=== PATIENT | female | born 1960 | race Caucasian/White ===

== ENCOUNTER 2023-05-03 07:58 | Inpatient (IN) | payer OTHER, SELFPAY ==
[2023-05-03] VITALS (88 sets, daily range): BP systolic 112–174; BP diastolic 74–103; PULSE 82–167; RESP 11–42; TEMP 36.5–37.1; O2SAT 82–99; BMI 49.9; BMI 63.1
--- NOTE | 2023-05-03 08:17 | XR_ITS ---
The [address] [address] Patient Name: FERN CARDOSO MRN: [id number] date: 1960 Sex: F Assigned Patient Location: ER Current Patient Location: ED.MAIN Accession/Order Number: [id number] Exam Date: 05/03/2023 08:38 Report Date: 05/03/2023 08:49 At the request of: CARRIE CORDON Procedure: XR chest 1V EXAM: XR chest 1V HISTORY: shortness of breath COMPARISON: Chest study dated 06/26/2015 TECHNIQUE: AP view of the chest was obtained with portable technique at 0834 hours. FINDINGS: Heart is mildly enlarged. Mild to moderately prominent interstitial and airspace density throughout on the right and at the left mid and lower lung field levels compatible with edema related to congestive changes and/or infiltrate. No obvious pneumothorax. Slight convexity of the dorsal spine to the left with mild degenerative changes present. XR/XR chest 1V IMPRESSION: Mild cardiomegaly. Congestive and/or infiltrative changes as noted. Electronically authenticated by: SARABJIT ROSENBAUM Date: 05/03/2023 08:49
--- NOTE | 2023-05-03 08:17 | ECG_ITS ---
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
--- NOTE | 2023-05-03 08:34 | ED.SOB1 ---
HPI - SOB/Dyspnea General Chief Complaint: Shortness of Breath/Dyspnea Stated Complaint: SOB Time Seen by Provider: 05/03/23 08:06 Source: patient Mode of arrival: walk-in Limitations: no limitations History of Present Illness HPI Narrative: Patient has been experiencing shortness of breath since testing positive for Covid back around [facility]. She said that she had a cough throughout March, which has lessened in the last week. No fever or chills. No chest pain, no pain behind either knee/calf, no dizziness or syncope. PMHx includes enlarged lower part of my heart for which she was prescribed Metoprolol by a research geneticist in [place] who isn't there anymore. PCP is Dr Tierney. Related Data Home Medications Medication Instructions Recorded Confirmed amitriptyline 25 mg tablet 25 mg PO BEDTIME 05/03/23 05/03/23 diclofenac sodium 75 mg 75 mg PO Q12H 05/03/23 05/03/23 tablet,delayed release metformin 500 mg tablet,extended 500 mg PO Q24H 05/03/23 05/03/23 release 24 hr metoprolol succinate 50 mg 50 mg PO Q24H 05/03/23 05/03/23 tablet,extended release 24 hr Allergies Allergy/AdvReac Type Severity Reaction Status Date / Time Penicillins AdvReac Intermediate Verified 05/03/23 08:03 [facility] Social History Smoking status: Never smoker Exam Narrative Exam Narrative: Nurses notes and vital signs reviewed and patient is not hypoxic. afebrile General: Well-appearing and in no apparent distress. Skin: Warm, dry, no pallor noted. No rash. Head: Normocephalic, atraumatic. Neck: Supple, non-tender. Eye: Pupils are equal, round and EOMI. No scleral icterus. Cardiovascular: Irregular tachycardia. Respiratory: No accessory muscle use or respiratory distress. Lungs are clear to auscultation, no wheezing, rales or rhonchi Musculoskeletal: normal ROM, no calf or popliteal tenderness, no lower extremity edema/swelling GI: Abdomen is soft, non-distended. Normal bowel sounds. Morbid obesity - unable to appreciate masses. No tenderness to palpation. No rebound, guarding, or rigidity noted. Neurological: A&O x4. No cranial nerve dysfunction observed. No truncal ataxia. Moves all extremities. Sensation intact. Psychiatric: Cooperative and interactive. Normal mood and affect. Constitutional Vital Signs, click to edit/add: Last Vital Signs Temp 97.7 F 05/03/23 08:05 Pulse 89 05/03/23 10:13 Resp 21 05/03/23 10:13 BP 146/77 H 05/03/23 10:13 Pulse Ox 97 05/03/23 10:13 O2 Del Method Nasal Cannula 05/03/23 08:06 O2 Flow Rate 4 05/03/23 08:06 Course Vital Signs Vital signs: Vital Signs Temperature 97.7 F 05/03/23 08:05 Pulse Rate 98 H 05/03/23 08:05 Respiratory Rate 30 H 05/03/23 08:05 Blood Pressure 156/96 H 05/03/23 08:05 Pulse Oximetry 82 L 05/03/23 08:05 Oxygen Delivery Method Room Air 05/03/23 08:05 Temperature 97.7 F 05/03/23 08:05 Pulse Rate 89 05/03/23 10:13 Respiratory Rate 21 05/03/23 10:13 Blood Pressure 146/77 H 05/03/23 10:13 Pulse Oximetry 97 05/03/23 10:13 Oxygen Delivery Method Nasal Cannula 05/03/23 08:06 Oxygen Delivery Flow Rate 4 05/03/23 08:06 MDM - SOB/Dyspnea MDM Narrative Medical decision making narrative: Patient was placed on cardiac exercise specialist and EKG obtained. Blood drawn and sent for evaluation. She has rapid atrial fibrillation. She received IV Cardizem bolus. Portable CXR obtained. HR slowed after cardizem given - repeat ekg obtained and is interpreted below. CXR with findings consistent with pulmonary edema vs infiltrate CBC notable for normal WBC and decreased platelets at 121k. BMP unremarkable. Troponin and BNP normal. Swabs for Covid and Influenza were negative. Uncertain how long she was in atrial fibrillation- patient given SQ Lovenox at 1mg/kg. DDimer elevated - patient sent for CT angio chest, which was negative for PE. Results, diagnosis and disposition discussed with the patient. She is agreeable to being admitted for new onset atrial fibrillation. Call placed to Dr Jackson - carbon furnace operator helper admitting physician - to discuss. Dr Jackson agreed to admit the patient to SDU, inpatient. Lab Data Attestation: I reviewed the patient's lab results. Labs: Lab Results 05/03/23 05/03/23 Range/Units 08:33 08:49 WBC 5.1 (4.0-11.0) 10^3/uL RBC 4.02 L (4.20-5.40) 10^6/uL Hgb 11.5 L (12.0-16.0) g/dL Hct 37.1 (36.0-48.0) % MCV 92.3 (81.0-99.0) fL MCH 28.6 (26.7-34.0) pg MCHC 31.0 (29.9-35.2) g/dL RDW 15.9 H (11.0-15.0) % Plt Count 121 L (150-450) 10^3/uL MPV 11.9 (9.5-13.5) fL Neut % (Auto) 63.0 (43.0-75.0) % Lymph % (Auto) 24.5 (20.5-60.0) % [place] % (Auto) 7.9 (1.7-12.0) % Eos % (Auto) 3.2 (0.9-7.0) % Baso % (Auto) 1.2 (0.2-2.0) % Neut # (Auto) 3.2 (1.4-6.5) 10^3/uL Lymph # (Auto) 1.2 (1.2-3.8) 10^3/uL [place] # (Auto) 0.4 (0.3-0.8) 10^3/uL Eos # (Auto) 0.2 (0.0-0.7) 10^3/uL Baso # (Auto) 0.1 (0.0-0.1) 10^3/uL Abs Immat Gran (auto) 0.01 (0.00-0.03) 10^3/uL Imm/Tot Granulo (auto) 0.2 (0.0-0.5) % PT 12.9 H (9.0-11.6) sec INR 1.23 APTT 22.8 (22.3-36.2) sec D-Dimer 7.17 H* (<=0.59) mg/L FEU Sodium 142 (136-145) mmol/L Potassium 3.5 (3.5-5.1) mmol/L Chloride 105 (98-107) mmol/L Carbon Dioxide 32.1 H (21.0-32.0) mmol/L Anion Gap 8.4 BUN 18.0 (7.0-18.0) mg/dL Creatinine 0.87 (0.55-1.02) mg/dL Est GFR ( Amer) >60 (>=60) Est GFR (Non-Af Amer) >60 (>=60) BUN/Creatinine Ratio 20.7 Glucose 133 H (74-106) mg/dL Calcium 8.8 (8.5-10.1) mg/dL Troponin I High Sens 35.3 (4.0-51.3) pg/mL NT-Pro-B Natriuret Pep 659.0 (<=900.0) pg/mL Influenza Type A Ag Negative Influenza Type B Ag Negative SARS-CoV-2 Ag (CV2AG) Negative (NEGATIVE) Imaging Data Chest x-ray: Attestation: I have reviewed the pertinent imaging results. My impression: throughout right and left mid and left lower lungs = mild to moderate prominent interstitial and airspace density Radiologist's impression: ITS Impressions Chest X-Ray 05/03/23 08:17 IMPRESSION: Mild cardiomegaly. Congestive and/or infiltrative changes as noted. Electronically authenticated by: SARABJIT ROSENBAUM Date: 05/03/2023 08:49 Chest CTA 05/03/23 09:42 IMPRESSION: 1. No pulmonary embolus identified. 2. Mild pulmonary alveolar and interstitial edema with small bilateral pleural effusions. 3. Cardiomegaly. 4. Borderline enlarged left axillary lymph node, which is nonspecific and possibly reactive. 5. Limited visualization of the liver suggests possible cirrhosis with recanalization of the umbilical vein. Electronically authenticated by: PALMER GALDAMEZ Date: 05/03/2023 10:02 ECG Data Attestation: I personally reviewed and interpreted this ECG as follows: Interpretation: #1 EKG interpretation: Emergency Department physician interpretation. Rapid atrial fibrillation 144bpm. LBBB, left axis. #2 EKG interpretation: Emergency Department physician interpretation. Rate controlled atrial fibrillation at 84bpm. Left axis. LBBB. Discharge Plan Discharge Chief Complaint: Shortness of Breath/Dyspnea Clinical Impression: Atrial fibrillation, new onset, Atrial fibrillation with rapid ventricular response Patient Disposition: Admitted As Inpatient Time of Disposition Decision: 09:14 Additional Instructions: inpatient admit, SDU, Dr Jackson
[2023-05-03] MEDS: DILTIAZEM HCL 25 MG/5 ML VIAL 20 MG IV (08:35)
[2023-05-03 08:41] LABS: Basophils Absolute Auto 0.1 10^3/uL (0.0-0.1); Basophils Percent Auto 1.2 % (0.2-2.0); Eosinophils Absolute Auto 0.2 10^3/uL (0.0-0.7); Eosinophils Percent Auto 3.2 % (0.9-7.0); Hematocrit 37.1 % (36.0-48.0); Hemoglobin 11.5 g/dL (12.0-16.0); Immature Granulocytes Abs Auto 0.01 10^3/uL (0.00-0.03); Immature Granulocytes Pct Auto 0.2 % (0.0-0.5); Lymphocytes Absolute Auto 1.2 10^3/uL (1.2-3.8); Lymphocytes Percent Auto 24.5 % (20.5-60.0); Mean Corpuscular Hemoglobin 28.6 pg (26.7-34.0); Mean Corpuscular Volume 92.3 fL (81.0-99.0); Mean Platelet Volume 11.9 fL (9.5-13.5); Monocytes Absolute Auto 0.4 10^3/uL (0.3-0.8); Monocytes Percent Auto 7.9 % (1.7-12.0); Neutrophils Absolute Auto 3.2 10^3/uL (1.4-6.5); Platelet Count 121 10^3/uL (150-450); Red Blood Count 4.02 10^6/uL (4.20-5.40); Red Cell Distribution Width 15.9 % (11.0-15.0); White Blood Count 5.1 10^3/uL (4.0-11.0)
--- NOTE | 2023-05-03 08:58 | ECG_ITS ---
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
--- NOTE | 2023-05-03 09:01 | PC.NURSE ---
Patient came in with SOB that started last night and was worse with exertion. Audible wheezing noted when walked in. Pulse ox 82% ORA and was place on 2 lpm with improvement to 96%. Monitor applied showing a-fib with RVR with no HX. Patient was moved to room six. IV was started with ultrasound guidance and Cardizem was administered per Dr order. Repeat EKG was done with improvement in HR but patient is still in a-fib. Patient is feeling much better with no SOB at this time.
[2023-05-03 09:03] LABS: INR 1.23; Partial Thromboplastin Time 22.8 sec (22.3-36.2); Prothrombin Time 12.9 sec (9.0-11.6)
[2023-05-03 09:04] LABS: Anion Gap 8.4; BUN Creatinine Ratio 20.7; Calcium 8.8 mg/dL (8.5-10.1); Carbon Dioxide 32.1 mmol/L (21.0-32.0); Chloride 105 mmol/L (98-107); Estimated GFR (African America >60 (>=60); Estimated GFR (Non-African Ame >60 (>=60); Glucose 133 mg/dL (74-106); Potassium 3.5 mmol/L (3.5-5.1); Sodium 142 mmol/L (136-145); Troponin I High Sensitivity 35.3 pg/mL (4.0-51.3)
[2023-05-03 09:07] LABS: D Dimer 7.17 mg/L FEU (<=0.59)
[2023-05-03] MEDS: ENOXAPARIN SODIUM 100 MG/ML SYRINGE SUBQ (09:12)
[2023-05-03] MEDS: ENOXAPARIN SODIUM 40 MG/0.4 ML SYRINGE SUBQ (09:12)
[2023-05-03 09:32] LABS: Influenza Virus A Antigen Negative; Influenza Virus B Antigen Negative; Internal Control Within Normal Limits; SARS-CoV-2 Ag NEGATIVE (NEGATIVE)
--- NOTE | 2023-05-03 09:42 | CT_ITS ---
The [address] [address] Patient Name: FERN CARDOSO MRN: [id number] date: 1960 Sex: F Assigned Patient Location: ER Current Patient Location: ER Accession/Order Number: [id number] Exam Date: 05/03/2023 09:28 Report Date: 05/03/2023 10:02 At the request of: CARRIE CORDON Procedure: CT angio chest EXAM: CT angio chest HISTORY: elevated ddimer, shortness of breath COMPARISON: None. TECHNIQUE: Axial CT images were obtained of the chest with intravenous contrast in the pulmonary arterial phase. Multiplanar, MIP and 3-D reconstructions were performed. CHEST FINDINGS: Lungs/Pleura: Mild perihilar pulmonary opacities are present. There is also mild intralobular septal thickening in the lung bases and apices. There are small bilateral pleural effusions. Pulmonary Arteries: No evidence of pulmonary embolus. Cardiovascular: The heart is enlarged. No significant coronary artery calcifications are identified. The aorta is unremarkable. Pericardium: No effusion. Mediastinum: Unremarkable. Lymph Nodes: Left axillary lymph nodes are borderline enlarged measuring up to 1.1 cm in short axis. Bones: No acute osseous abnormality. There are moderate multilevel degenerative changes present in the thoracic spine with flowing anterior enthesophytes present. Soft tissues: Unremarkable. Upper Abdomen: The hepatic contour appears nodular with recanalization of the umbilical vein noted. CT/CT angio chest IMPRESSION: 1. No pulmonary embolus identified. 2. Mild pulmonary alveolar and interstitial edema with small bilateral pleural effusions. 3. Cardiomegaly. 4. Borderline enlarged left axillary lymph node, which is nonspecific and possibly reactive. 5. Limited visualization of the liver suggests possible cirrhosis with recanalization of the umbilical vein. Electronically authenticated by: PALMER GALDAMEZ Date: 05/03/2023 10:02
--- NOTE | 2023-05-03 10:57 | CA_ITS ---
Patient Name: FERN CARDOSO MR#: [id number] : 1960 Exam Date: 05/03/2023 Ordering Doctor: SHAIKH Shira DOMINGUEZ . ECHOCARDIOGRAM REPORT PROCEDURE: CA ECHO LIMITED INDICATIONS: Atrial fibrillation COMPARISON: None. DESCRIPTION: Limited ECHOCARDIOGRAM Real-time transthoracic echocardiography with 2D and M-mode performed. QUALITY: Technical quality was good. 65 , 300#, BSA 2.35 m2 Limited echocardiogram per physician order. LEFT VENTRICLE: Normal chamber size. Moderate concentric left ventricular hypertrophy. Systolic function is difficult to assess due to rhythm but appears to be mildly to moderately reduced. LV EF: Visual estimation of left ventricular ejection fraction is 40%. DIASTOLIC: ATRIAL SEPTUM: LEFT ATRIUM: Severely dilated. RIGHT ATRIUM: RIGHT VENTRICLE: Normal chamber size. Preserved systolic function. TRICUSPID VALVE: Normal mobility and thickness. MITRAL VALVE: Normal mobility and thickness. Mild mitral annular calcification. AORTIC VALVE: Not well visualized. AORTIC ROOT: PULMONIC VALVE: Not well visualized. PERICARDIUM: No evidence of pericardial effusion. IVC: Not well visualized. PLEURA: CONCLUSION: 1. Moderate concentric left ventricular hypertrophy. 2. Left ventricular systolic function is difficult to assess due to rhythm but appears to be mildly to moderately reduced. LVEF is estimated at 40%. 3. Severe left atrial dilatation. 4. Normal right ventricular size with preserved systolic function. 5. Limited study performed with no Doppler interrogation as requested. Adult Echocardiography Procedure Report Left Ventricle LVEDD (3.7 - 5.6 cm): 4.79 cm LVESD (2.2 - 4.0 cm): 3.75 cm LVIVS thickness (0.6 - 1.2 cm): 1.57 cm LVPW thickness (0.5 - 1.0 cm): 1.19 cm Left Atrium Left Atrium Systolic Dimension: 4.59 cm Mitral Valve Right Ventricle Aorta Aortic Valve Tricuspid Valve Pulmonic Valve Right Atrium Dictated by: Alonzo Babin M.D. on 05/04/2023 at 17:37 Approved by: Alonzo Babin M.D. on 05/04/2023 at 17:41
[2023-05-03 11:24] LABS: Thyroid Stimulating Hormone 4.876 uIU/mL (0.358-3.740)
[2023-05-03] MEDS: METOPROLOL SUCCINATE 50 MG TAB.ER.24H PO ×2 (11:33→21:40)
[2023-05-03] MEDS: POTASSIUM CHLORIDE 10 MEQ ER TABLET 40 MEQ PO (11:33)
[2023-05-03] MEDS: FUROSEMIDE 40 MG/4 ML VIAL IVP ×2 (12:08→21:42)
[2023-05-03] MEDS: DILTIAZEM HCL 25 MG/5 ML VIAL 10 MG IV (12:53)
[2023-05-03 13:04] LABS: Glucometer 100 mg/dL (74-106)
[2023-05-03] MEDS: MAGNESIUM SULFATE IN WATER 4 GM/100 ML PIGGYBACK IV (14:20)
--- NOTE | 2023-05-03 14:25 | P.HP_ITS ---
<Statement entered by Shaikh Manuel MD - 05/03/23 19:28> This documentation has been reviewed and approved. See and examined. Patient presents with cough, SOB ongoing since March found to have New Onset Afib, and acute resp failure with hypoxia Exam: Morbidly obese, laying in bed, appears SOB Irregular HR, rate fluctuating from 90-140. no murmur, elevated JVD Tachypenic, appears SOB, crackles at lung bases, no wheezing Assessment and Plan Acute resp failure with hypoxia acute on chronic HF (unspecified) New onset Afib On IV lasix 40 q12 for volume overload, started on toprol for rate control. Monitor closely. Wean off O2 as tolerated. H&P: HPI History of Present Illness Chief complaint: SOB Narrative: 05/03/23 9112 This is a 62-year-old female patient with a past medical history as outlined below including morbid obesity, DM type II and hypertension; who presented to the ED complaining of worsening shortness of breath. She reports COVID-19 infection around with a persistent cough and mild shortness of breath throughout most of March. Over the last few days her shortness of breath has been worsening and she was unable to lay down comfortably due to difficulty breathing last night. This morning her breathing was much worse and she presented to the ED for further evaluation. She completely denies palpitations, chest pain, dizziness, nausea or vomiting, or any other acute complaint. Workup in the ED revealed mild hyperglycemia (133), elevated D-dimer (7.17), and significant tachycardia with A-fib with RVR noted on EKG. Troponin I and BNP were WNL. Chest x-ray revealed mild cardiomegaly and congestive versus infiltrative changes. A CTA of the chest was obtained due to her elevated D- dimer which was negative for a PE but again showed mild interstitial edema. Her A-fib with RVR was treated with IV push Cardizem x 2 doses with adequate resolution of her heart rate. She remains in paroxysmal A-fib with heart rates ranging from the mid 80s to the 120s. She was admitted as an inpatient to the hospitalist service in the stepdown unit. At the time of my exam the patient is resting comfortably in bed. She denies any palpation sensation or feeling of racing heartbeat. She has had good urine output since Lasix was initiated on admission for new onset heart failure. A mag level was drawn and noted to be significantly low at 1.0 and she has mag sulfate 4 g infusing at the time of my exam. A TSH level has been checked and reveals hypothyroidism but we will avoid initiating levothyroxine supplementation at this time d/t inadequately controlled RVR. She has been initiated on therapeutic Lovenox dosing today and will transition to Eliquis tomorrow. A 2D echo has been obtained w/ results pending. Review of Systems ROS Status of ROS 10 or more systems reviewed and unremark able except as noted in history and below [facility] Medical History (Updated 05/03/23 @ 16:02 by Kisha Henderson NP) DJD (degenerative joint disease) ?M19.90 - Unspecified osteoarthritis, unspecified site (ICD-10) DM2 (diabetes mellitus, type 2) ?E11.9 - Type 2 diabetes mellitus without complications (ICD-10) HTN (hypertension) ?I10 - Essential (primary) hypertension (ICD-10) Morbid obesity ?E66.01 - Morbid (severe) obesity due to excess calories (ICD-10) Social History Smoking status: Never smoker Highest level of school completed/degree received: Associate degree: occupational, technical, vocational program Meds Home Medications and Allergies Home Medications Medication Instructions Recorded Confirmed Type amitriptyline 25 mg tablet 25 mg PO BEDTIME 05/03/23 05/03/23 History diclofenac sodium 75 mg 75 mg PO Q12H 05/03/23 05/03/23 History tablet,delayed release metformin 500 mg tablet,extended 500 mg PO Q24H 05/03/23 05/03/23 History release 24 hr metoprolol succinate 50 mg 50 mg PO Q24H 05/03/23 05/03/23 History tablet,extended release 24 hr Allergies Allergy/AdvReac Type Severity Reaction Status Date / Time Penicillins AdvReac Intermediate Verified 05/03/23 08:03 Exam Constitutional Vital Signs, click to edit/add: Last Vital Signs Temp 98.1 F 05/03/23 10:55 Pulse 95 H 05/03/23 12:00 Resp 19 05/03/23 11:40 BP 154/103 H 05/03/23 12:53 Pulse Ox 95 05/03/23 13:36 O2 Del Method Room Air 05/03/23 13:36 O2 Flow Rate 4 05/03/23 08:06 Common normals: no apparent distress, oriented x3 and alert General appearance: cooperative Nutritional appearance: obese Orientation/consciousness: Yes awake HENMT Common normals: normocephalic, head/scalp atraumatic, hearing grossly normal bilaterally, external nose normal and moist oral mucous membranes Eye Common normals: PERRL, EOMs intact bilaterally, conjunctivae normal and no scl eral icterus Alignment: alignment normal Eyelid: eyelids normal Neck & C-Spine Common normals: full ROM, supple and no JVD Chest Common normals: inspection of chest normal Chest: symmetrical chest wall rise Respiratory Common normals: normal respiratory effort, no retractions and no use of accessory muscles Auscultation: crackles (Faint LLL) and diminished lung sounds (BLL) Cardio Common normals: no JVD, S1 normal heart sound, S2 normal heart sound, no gallops, no clicks, no murmurs, no rub and peripheral pulses 2+ throughout GI Common normals: Normal to inspection, nondistended, normoactive bowel sounds present, soft to palpation, non-tender, no hepatosplenomegaly, no masses and no bruits Bladder/kidney exam: bladder normal to palpation Extremity Common normals: normal capillary refill General: normal exam except as noted and edema (BLE 1-2+, chronic unchanged); no clubbing and no cyanosis Neuro [place] Coma Scale: GCS not evaluated Common normals: CN's II-XII intact bilaterally, moves all extremities, no focal motor deficits and no sensory deficits noted Speech: speech normal Motor exam: strength 5/5 throughout Psych Common normals: mental status grossly normal, thought process normal, affect normal and activity/motor behavior normal Results Labs Labs: Short CBC 05/03/23 Range/Units 08:33 WBC 5.1 (4.0-11.0) 10^3/uL Hgb 11.5 L (12.0-16.0) g/dL Hct 37.1 (36.0-48.0) % Plt Count 121 L (150-450) 10^3/uL BMP 05/03/23 08:33 Sodium 142 Potassium 3.5 Chloride 105 Carbon Dioxide 32.1 H BUN 18.0 Creatinine 0.87 Glucose 133 H Calcium 8.8 Pulse Oximetry Attestation: I have reviewed the pertinent pulse oximetry results. ECG Interpretation: EKG #1 05/03/2023 8:17 AM Atrial fibrillation with rapid ventricular response Left bundle branch block Abnormal left axis deviation Abnormal ECG Compared to ECG from 07/12/2017 at 15 10 PM Left bundle branch block now present Sinus rhythm no longer present Ventricular premature complexes no longer present Myocardial infarct finding no longer present EKG #2 05/03/2023 8:56 AM Sinus rhythm With occasional ventricular premature complexes Left bundle branch block Abnormal left axis deviation Abnormal ECG Compared to ECG from 05/03/2023 at 8:17 AM Ventricular premature complexes now present Atrial fibrillation no longer present Imaging Chest x-ray: Attestation: I have reviewed the pertinent imaging results. Radiologist's impression: IMPRESSION: Mild cardiomegaly. Congestive and/or infiltrative changes as noted. CTA Chest: Attestation: I have reviewed the pertinent imaging results. Radiologist's impression: IMPRESSION: 1. No pulmonary embolus identified. 2. Mild pulmonary alveolar and interstitial edema with small bilateral pleural effusions. 3. Cardiomegaly. 4. Borderline enlarged left axillary lymph node, which is nonspecific and possibly reactive. 5. Limited visualization of the liver suggests possible cirrhosis with recanalization of the umbilical vein. Assessment and Plan Assessment and Plan (1) Atrial fibrillation with rapid ventricular response: Assessment and Plan: ACUTE * Adm inpatient * Expect at least a 2 midnight stay for inpatient cardiac monitoring and care, cardioactive medication titration * Cardiac monitoring * Diltiazem 30 mg total given in the ED * Increase home metoprolol succinate to 50 mg BID - for improved HR control * PRN Lopressor IVP for breakthrough RVR * Avoid further CCB dosing in setting of new onset CHF w/ unknown systolic function * [id number] score of 3 - moderately high risk of CVA * Therapeutic Lovenox dosing today * Convert to DOAC therapy w/ Eliquis in the AM * Correct electrolyte disturbances * See hypomagnesemia * KCL 40 meq given on admission w/ borderline low K+ level. Give Additional 20 meq at HS d/t concurrent IVP Lasix dosing and potential for potassium wasting * HS Troponin I WNL * Consider cardiology consult pending clinical course * CBC, CMP, Mag daily (2) New onset of congestive heart failure: Assessment and Plan: ACUTE * No previous CHF history * 2D Echo today to assess for valvular or WM abnormalities; HFpEF vs HFrEF * Start Lasix 40 mg IVP BID now * Strict I&O * Daily weights * BNP daily (3) Hypomagnesemia: Assessment and Plan: ACUTE * Mag lvl 1.0 on admission * Likely contributing to new onset A-fib w/ RVR * Mag Sulfate 4gm over 4 hrs * Cardiac monitoring * Repeat mag level in AM and replete as needed (4) Hypothyroidism: Assessment and Plan: ACUTE * No hypothyroid hx * TSH elevated at 4.876 * Hold any levothyroxine supplementation for now d/t concurrent a-fib w/ RVR * Defer to PCP at discharge (5) Thrombocytopenia: Assessment and Plan: ACUTE * Likely clinically insignificant * Monitor w/ CBC in AM (6) HTN (hypertension): Assessment and Plan: CHRONIC * Continue home metoprolol w/ increased BID dosing for improved rate control * Monitor BP response (7) DM2 (diabetes mellitus, type 2): Assessment and Plan: CHRONIC * Hold home metformin during acute hospitalization * ACHS glucometer checks * Med SSI for glucose correction * Med CC diet * Check A1C in AM
[2023-05-03 15:25] LABS: Glucometer 88 mg/dL (74-106)
[2023-05-03] MEDS: POTASSIUM CHLORIDE 10 MEQ ER TABLET 20 MEQ PO (21:40)
[2023-05-03] MEDS: AMITRIPTYLINE HCL 25 MG TABLET PO (21:41)
[2023-05-03] MEDS: ENOXAPARIN SODIUM 100 MG/ML SYRINGE 150 MG SUBQ (21:41)
[2023-05-03 22:02] LABS: Glucometer 138 mg/dL (74-106)
[2023-05-04] VITALS (42 sets, daily range): BP systolic 122–187; BP diastolic 56–113; PULSE 79–160; RESP 10–35; TEMP 36.6–36.9; O2SAT 85–95
[2023-05-04 05:44] LABS: Basophils Percent Auto 0.9 % (0.2-2.0); Eosinophils Absolute Auto 0.1 10^3/uL (0.0-0.7); Eosinophils Percent Auto 2.3 % (0.9-7.0); Hematocrit 33.1 % (36.0-48.0); Hemoglobin 10.5 g/dL (12.0-16.0); Immature Granulocytes Abs Auto 0.01 10^3/uL (0.00-0.03); Immature Granulocytes Pct Auto 0.2 % (0.0-0.5); Lymphocytes Absolute Auto 1.3 10^3/uL (1.2-3.8); Lymphocytes Percent Auto 30.5 % (20.5-60.0); Mean Corpuscular HGB Conc 31.7 g/dL (29.9-35.2); Mean Corpuscular Hemoglobin 28.8 pg (26.7-34.0); Mean Corpuscular Volume 90.7 fL (81.0-99.0); Mean Platelet Volume 12.5 fL (9.5-13.5); Monocytes Absolute Auto 0.4 10^3/uL (0.3-0.8); Monocytes Percent Auto 9.8 % (1.7-12.0); Neutrophils Absolute Auto 2.5 10^3/uL (1.4-6.5); Neutrophils Percent Auto 56.3 % (43.0-75.0); Platelet Count 109 10^3/uL (150-450); Red Blood Count 3.65 10^6/uL (4.20-5.40); Red Cell Distribution Width 16.1 % (11.0-15.0); White Blood Count 4.4 10^3/uL (4.0-11.0)
[2023-05-04 06:20] LABS: Alanine Aminotransferase 35 U/L (14-59); Albumin Globulin Ratio 0.7; Albumin Level 2.9 g/dL (3.4-5.0); Alkaline Phosphatase 43 U/L (46-116); Anion Gap 11.4; Aspartate Amino Transferase 38 U/L (15-37); BUN Creatinine Ratio 14.6; Bilirubin Total 1.5 mg/dL (0.2-1.0); Carbon Dioxide 33.9 mmol/L (21.0-32.0); Chloride 103 mmol/L (98-107); Estimated GFR (African America >60 (>=60); Estimated GFR (Non-African Ame >60 (>=60); Globulin 4.3 g/dL; Glucose 110 mg/dL (74-106); Potassium 3.3 mmol/L (3.5-5.1); Sodium 145 mmol/L (136-145); Total Protein 7.2 g/dL (6.4-8.2)
[2023-05-04 06:27] LABS: Estimated Average Glucose 128 mg/dL; Glycohemoglobin A1C 6.1 % (4.5-6.2)
[2023-05-04 06:28] LABS: Magnesium 1.3 mg/dL (1.8-2.4)
[2023-05-04 07:39] LABS: Glucometer 113 mg/dL (74-106)
[2023-05-04] MEDS: HYDRALAZINE HCL 20 MG/ML VIAL 10 MG IVP (07:47)
--- NOTE | 2023-05-04 08:10 | ECG_ITS ---
The [facility] Test Date: 2023-05-04 Pat Name: FERN CARDOSO Department: Room: [facility] Gender: Female Aws Consultant: : 1960 Requested By: 2022 Order Number: [id number] Reading MD: REENA AGOSTO Measurements Intervals [place] Rate: 86 P: 40 OK: 210 QRS: 234 QRSD: 176 T: 63 QT: 456 QTc: 499 Interpretive Statements 1100 Sinus rhythm 2231 First degree AV block 2330 Nonspecific intraventricular conduction block 3634 Inferior myocardial infarction, age undetermined Low voltage across the precordium 9150 abnormal ECG Electronically Signed On 05-05-2023 6:49:21 EST by REENA AGOSTO
[2023-05-04] MEDS: APIXABAN 5 MG TABLET PO ×2 (08:30→22:25)
[2023-05-04] MEDS: POTASSIUM CHLORIDE 10 MEQ ER TABLET 40 MEQ PO (08:30)
[2023-05-04] MEDS: MAGNESIUM SULFATE IN WATER 4 GM/100 ML PIGGYBACK IV ×2 (08:31→15:49)
[2023-05-04] MEDS: FUROSEMIDE 40 MG/4 ML VIAL IVP (08:31)
[2023-05-04] MEDS: METOPROLOL SUCCINATE 50 MG TAB.ER.24H PO ×2 (08:31→10:08)
[2023-05-04 09:06] LABS: Troponin I High Sensitivity 31.8 pg/mL (4.0-51.3)
--- NOTE | 2023-05-04 10:09 | CM.NOTE ---
Rounds made with Dr. Jackson, consult cardiology and discussed plan of care with pt. No discharge today.
[2023-05-04 11:39] LABS: Glucometer 127 mg/dL (74-106)
[2023-05-04] MEDS: LOSARTAN POTASSIUM 50 MG TABLET 100 MG PO (12:43)
--- NOTE | 2023-05-04 13:10 | P.DS_ITS ---
<Statement entered by Shaikh Manuel MD - 05/05/23 07:16> This documentation has been reviewed and approved. Seen and examined. Patient developed Vtach earlier today and then went back to Afib. Remained asymptomatic. Exam: Morbidly obese, comfortable Normal RR, CTA bilaterally HR irregular, fluctuating, no murmur Assessment/plan New osnet afib acute on chronic systolic HF Acute resp failure with hypoxia HTN Vtach Case d/w Cardiology director religious education - will need LHC, transfer to [facility], accepted, awaiting bed. DS: Providers Provider Date of admission: 05/03/23 10:35 Primary care physician: Sindi Tierney MD Consults: 05/04/23 08:48 Consult to Cardiology Routine Reason for consultation: New a-fib w/RVR, 2min run V-tach overnight Has provider been notified: No Discharging clinician: Kisha Henderson DS: Diagnosis Discharge Diagnosis (1) Sustained ventricular tachycardia: (2) Atrial fibrillation with rapid ventricular response: Assessment and plan: New onset (3) New onset of congestive heart failure: (4) Hypomagnesemia: (5) Hypothyroidism: (6) Thrombocytopenia: (7) HTN (hypertension): (8) DM2 (diabetes mellitus, type 2): DS: Summary Hospital Course Hospital Course: The patient was admitted with persistent shortness of breath found to be secondary to new onset of A-fib with RVR on admission. She was initially treated with calcium channel saman with improvement in heart rate but then became refractory. Her home metoprolol succinate dosing was increased to 50 mg BID and her HR was better controlled with this. She was mostly in SR after the metoprolol dosing but had breakthrough paroxysmal a-fib w/RVR. She was started on IVP lasix as she was hypertensive and had congestive changes on imaging consistent with pulmonary edema. A limited 2D Echo was obtained, but is still pending cardiology interpretation. She had good urinary output and was negative more than 5L today. Mild hypokalemia was noted and repleted with PO/IV KCL. Profound hypomagnesemia was also noted and repleted with repeated doses of Mag Sulfate. A TSH level was checked and revealed hypothyroidism. Initiation of levothyroxine supplementation was deferred until the pt's heart rate is more stable. Unfortunately, she experienced sustained V-tach of greater than two minutes overnight, with persistent abnormal EKG findings for nearly 15 min. She was asymptomatic with this finding but the prolonged course was concerning. Cardiology was consulted. After review of her rhythm strips, Dr Serrano felt the pt needs an emergent cardiac cath as soon as possible. He is accepting the pt in transfer to [facility] and she will be transferred once a bed becomes available. In the meantime, her metoprolol succinate dosing has been increased again as the pt's BP is still poorly controlled which is unusual for her. She is in stable condition awaiting emergent transfer. Time Spent with Patient Time attestation: Total time spent providing and/or coordinating discharge services: Time spent: greater than 30 minutes Specific discharge activities: Physical exam, discussion of discharge plan, questions answered. Exam Constitutional Vital Signs, click to edit/add: Last Vital Signs Temp 98.4 F 05/04/23 10:00 Pulse 79 05/04/23 11:00 Resp 16 05/04/23 08:00 BP 180/98 H 05/04/23 07:47 Pulse Ox 94 L 05/04/23 11:03 O2 Del Method Room Air 05/04/23 11:03 O2 Flow Rate 1 05/04/23 06:00 Common normals: no apparent distress, oriented x3 and alert General appearance: cooperative Orientation/consciousness: Yes awake HENMT Common normals: normocephalic and head/scalp atraumatic Eye Common normals: PERRL, EOMs intact bilaterally, conjunctivae normal and no scleral icterus Neck & C-Spine Common normals: no JVD Respiratory Common normals: normal respiratory effort, no use of accessory muscles and clear to auscultation bilaterally Effort & inspection: able to speak in complete sentences and symmetric chest movement Auscultation: diminished lung sounds (BLL) Cardio Common normals: no JVD, regular rate (80s), regular rhythm, S1 normal heart sound, S2 normal heart sound, no murmurs and peripheral pulses 2+ throughout GI Common normals: Normal to inspection, nondistended, normoactive bowel sounds present, soft to palpation and non-tender Bladder/kidney exam: bladder normal to palpation Extremity Common normals: normal to inspection, full ROM and normal capillary refill General: edema (1-2+ bilat insteps/ankles); no clubbing and no cyanosis Neuro Common normals: moves all extremities, no focal motor deficits and no sensory deficits noted Speech: speech normal Psych Common normals: mental status grossly normal and activity/motor behavior normal DS: Data Data Completed and Pending Labs on day of discharge: Labs from last 24 hours 05/04/23 05/04/23 05/04/23 11:38 07:34 04:13 WBC 4.4 RBC 3.65 L Hgb 10.5 L Hct 33.1 L MCV 90.7 MCH 28.8 MCHC 31.7 RDW 16.1 H Plt Count 109 L MPV 12.5 Neut % (Auto) 56.3 Lymph % (Auto) 30.5 [place] % (Auto) 9.8 Eos % (Auto) 2.3 Baso % (Auto) 0.9 Neut # (Auto) 2.5 Lymph # (Auto) 1.3 [place] # (Auto) 0.4 Eos # (Auto) 0.1 Baso # (Auto) 0.0 Abs Immat Gran (auto) 0.01 Imm/Tot Granulo (auto) 0.2 Sodium 145 Potassium 3.3 L Chloride 103 Carbon Dioxide 33.9 H Anion Gap 11.4 BUN 12.0 Creatinine 0.82 Est GFR ( Amer) >60 Est GFR (Non-Af Amer) >60 BUN/Creatinine Ratio 14.6 Glucose 110 H Estimat Average Glucose 128 Hemoglobin A1c 6.1 Calcium 9.0 Magnesium 1.3 L Total Bilirubin 1.5 H AST 38 H ALT 35 Alkaline Phosphatase 43 L Troponin I High Sens 31.8 NT-Pro-B Natriuret Pep 505.0 Total Protein 7.2 Albumin 2.9 L Globulin 4.3 Albumin/Globulin Ratio 0.7 POC Glucose 127 H 113 H 05/03/23 05/03/23 22:00 15:21 WBC RBC Hgb Hct MCV MCH MCHC RDW Plt Count MPV Neut % (Auto) Lymph % (Auto) [place] % (Auto) Eos % (Auto) Baso % (Auto) Neut # (Auto) Lymph # (Auto) [place] # (Auto) Eos # (Auto) Baso # (Auto) Abs Immat Gran (auto) Imm/Tot Granulo (auto) Sodium Potassium Chloride Carbon Dioxide Anion Gap BUN Creatinine Est GFR ( Amer) Est GFR (Non-Af Amer) BUN/Creatinine Ratio Glucose Estimat Average Glucose Hemoglobin A1c Calcium Magnesium Total Bilirubin AST ALT Alkaline Phosphatase Troponin I High Sens NT-Pro-B Natriuret Pep Total Protein Albumin Globulin Albumin/Globulin Ratio POC Glucose 138 H 88 Discharge Plan Discharge Disposition: Xfer Acute Care Hospital Activity Restrictions/Additional Instructions: - TSH 4.876. Consider initiating levothyroxine dosing once HR is well controlled
[2023-05-04 14:20] LABS: Magnesium 1.7 mg/dL (1.8-2.4)
[2023-05-04 15:56] LABS: Glucometer 98 mg/dL (74-106)
[2023-05-04] MEDS: AMITRIPTYLINE HCL 25 MG TABLET PO (22:24)
[2023-05-04 22:32] LABS: Glucometer 101 mg/dL (74-106)
[2023-05-05] VITALS (24 sets, daily range): BP systolic 126–156; BP diastolic 74–111; PULSE 72–97; RESP 16–31; TEMP 36.6–37.4; O2SAT 90–95
[2023-05-05 03:32] LABS: Basophils Percent Auto 0.7 % (0.2-2.0); Eosinophils Absolute Auto 0.1 10^3/uL (0.0-0.7); Eosinophils Percent Auto 3.2 % (0.9-7.0); Hematocrit 35.1 % (36.0-48.0); Hemoglobin 11.2 g/dL (12.0-16.0); Lymphocytes Absolute Auto 1.3 10^3/uL (1.2-3.8); Lymphocytes Percent Auto 32.3 % (20.5-60.0); Mean Corpuscular HGB Conc 31.9 g/dL (29.9-35.2); Mean Corpuscular Hemoglobin 28.6 pg (26.7-34.0); Mean Corpuscular Volume 89.8 fL (81.0-99.0); Mean Platelet Volume 12.2 fL (9.5-13.5); Monocytes Absolute Auto 0.4 10^3/uL (0.3-0.8); Monocytes Percent Auto 9.5 % (1.7-12.0); Neutrophils Absolute Auto 2.2 10^3/uL (1.4-6.5); Neutrophils Percent Auto 54.3 % (43.0-75.0); Platelet Count 105 10^3/uL (150-450); Red Blood Count 3.91 10^6/uL (4.20-5.40); White Blood Count 4.1 10^3/uL (4.0-11.0)
[2023-05-05 03:46] LABS: Alanine Aminotransferase 35 U/L (14-59); Albumin Globulin Ratio 0.7; Albumin Level 2.9 g/dL (3.4-5.0); Alkaline Phosphatase 46 U/L (46-116); Anion Gap 10.5; Aspartate Amino Transferase 41 U/L (15-37); BUN Creatinine Ratio 14.5; Bilirubin Total 1.3 mg/dL (0.2-1.0); Calcium 8.8 mg/dL (8.5-10.1); Chloride 103 mmol/L (98-107); Estimated GFR (African America >60 (>=60); Estimated GFR (Non-African Ame >60 (>=60); Globulin 4.4 g/dL; Glucose 106 mg/dL (74-106); Potassium 3.5 mmol/L (3.5-5.1); Sodium 143 mmol/L (136-145); Total Protein 7.3 g/dL (6.4-8.2)
[2023-05-05 03:54] LABS: Magnesium 1.9 mg/dL (1.8-2.4)
--- NOTE | 2023-05-05 07:00 | US_ITS ---
The [address] [address] Patient Name: FERN CARDOSO MRN: [id number] date: 1960 Sex: F Assigned Patient Location: ICU Current Patient Location: ICU Accession/Order Number: [id number] Exam Date: 05/05/2023 07:30 Report Date: 05/05/2023 08:04 At the request of: GILDARDO IGNACIO Procedure: US renal BI Ultrasound kidneys, bilateral HISTORY: Assess for mass w/ new onset a-fib and HTN urg COMPARISON: None. TECHNIQUE: Transabdominal ultrasound imaging of both kidneys was performed. FINDINGS: The examination is limited by body habitus. Both kidneys demonstrate normal echotexture and echogenicity. The right kidney measures 10.9 x 5.1 x 4.9 cm. There is no hydronephrosis of right kidney. The left kidney measures 11.0 x 4.7 x 4.2 cm. No hydronephrosis of left kidney. No discrete renal lesion or renal stone identified. The bladder is distended with prevoid volume of 399 cc, and grossly normal in appearance. US/US renal BI IMPRESSION: 1. Examination of kidneys limited by body habitus. Both kidneys or normal in size without hydronephrosis, gross renal lesion, or renal stone identified by ultrasound. 2. Distended bladder without focal abnormality. Electronically authenticated by: YESSICA BENTLEY Date: 05/05/2023 08:04
[2023-05-05 08:13] LABS: Glucometer 105 mg/dL (74-106)
[2023-05-05] MEDS: METOPROLOL SUCCINATE 50 MG TAB.ER.24H 75 MG PO (08:41)
[2023-05-05] MEDS: LOSARTAN POTASSIUM 50 MG TABLET 100 MG PO (08:41)
[2023-05-05] MEDS: APIXABAN 5 MG TABLET PO (08:41)
[2023-05-05] MEDS: MAGNESIUM SULFATE IN WATER 2 GM/50 ML PREMIX IV (09:34)
[2023-05-05] MEDS: POTASSIUM CHLORIDE 10 MEQ ER TABLET 40 MEQ PO (09:35)
--- NOTE | 2023-05-05 10:06 | CM.NOTE ---
Rounds made with Dr. Jackson. Awaiting transfer to Tertiary Facility. Voices understanding.
[2023-05-05 11:25] LABS: Glucometer 144 mg/dL (74-106)
== END 2023-05-05 17:20 | disposition short-term general hospital (02) | DRG 308 ==
LOC: ER 09:14 → ICU 10:37
PROVIDERS: Admitting Provider Internal Medicine; Emergency Provider Emergency Medicine; PCP Family Medicine; Visit Provider Nurse Practitioner
DX: I48.0 Paroxysmal atrial fibrillation (principal); J96.01 Acute respiratory failure with hypoxia; Z68.44 Body mass index [BMI] 60.0-69.9, adult; I47.20 Ventricular tachycardia, unspecified; E83.42 Hypomagnesemia; E87.6 Hypokalemia; E03.9 Hypothyroidism, unspecified; D69.6 Thrombocytopenia, unspecified; I11.0 Hypertensive heart disease with heart failure; I50.9 Heart failure, unspecified; E11.65 Type 2 diabetes mellitus with hyperglycemia; E66.01 Morbid (severe) obesity due to excess calories; M19.90 Unspecified osteoarthritis, unspecified site; Z79.84 Long term (current) use of oral hypoglycemic drugs; Z79.899 Other long term (current) drug therapy; Z86.16 Personal history of COVID-19; Z88.0 Allergy status to penicillin
CPT/HCPCS: 36415; 71045; 71275; 76775; 80048; 80053; 82948; 83036; 83735; 83880; 84443; 84484; 85025; 85378; 85610; 85730; 87635; 87804; 87811; 93005; 93308; 94761; 96365; 96366; 96372; 96375; 96376; 99285; J0360; J1650; J1940; J3475; Q9967

== ENCOUNTER 2023-06-24 09:00 | Outpatient (OUT) | payer OTHER, SELFPAY ==
--- OUTSIDE RECORDS SUMMARY | 2023-06-24 09:07 | XMS_ITS | CCD ---
Author Name Unknown Address [address] [place] [address] Organization [facility] Care Team Providers Care Clinical Biostatistics Director Name Role Phone Hans Whiteside Attending Unavailable Benjamin, Sindi Edgar Primary Care Unavaila ble BENJAMIN, DR SINDI Torres Consulting Unavailable BENJAMIN, DR SINDI Torres Primary Care Unavailable BENJAMIN, DR SINDI Torres Admitting Unavailable BENJAMIN, DR SINDI Torres Attending Unavailable BENJAMIN, DR SINDI Torres Primary Care Unavailable BENJAMIN, DR SINDI Torres Admitting Unavailable BENJAMIN, DR SINDI Torres Attending Unavailable BENJAMIN, DR SINDI Torres Consulting Unavailable BENJAMIN, DR SINDI Torres Primary Care Unavailable BENJAMIN, DR SINDI Torres Admitting Unavailable Zieber, DR Layton Consulting Unavailable BENJAMIN, DR SINDI Torres Attending Unavailable BENJAMIN, DR SINDI Torres Consulting Unavailable Etta Gordon Unavailable Sindi Benjamin Unavailable SEBAS BAKER Referring Unavailable SANIQRA, SEBAS Referring Unavailable SANIQRA, SEBAS Referring Unavailable ADENIKE SERRANO Referring Unavailable HEAVEN DOWD Attending Unavailable GUILLERMO STARR Admitting Unavailable LARA ROLAND Attending Unavailable JOSE LUIS CRONIN Attending Unavailable JOHNATHON, REGINA Attending Unavailable Allergies Allergy Classification Reported Allergen(s) Allergy Type Date of Onset Reaction(s) Facility (2 sources) Penicillins; Translations: [PENICILLINS] Drug allergy (disorder) 02-07-[address] [facility] Repository (6 sources) Ciprofloxacin Drug Allergy Comment:nausea and diarrhea [facility] Other (6 sources) Penicillin G Drug Allergy hives [facility] Other (6 sources) traMADol Drug Allergy 06-25-19 16 Unknown [facility] Other (6 sources) Substance with penicillin structure and antibacterial mechanism of action (substance) Drug allergy 12-23-19 13 Unknown [facility] Other (6 sources) patient allergy list reviewed by nurse or physicia Propensity to adverse reactions 11-11-19 19 Comment:Done [facility] Other (6 sources) TraMADol & Dietary Manage Prod *ANALGESICS - OPIOI Propensity to adverse reactions 06-25-19 16 Unknown [facility] Other (6 sources) Allergies Reconciled Propensity to adverse reactions Unknown [facility] Other Medications Current Medications Medication Drug Class(es) Dates Sig (Normalized) Sig (Original) amiodarone hydrochloride 400 mg oral tablet (3 sources) Antiarrhythmic take 1 tablet by mouth every twenty-four hours Amiodarone HCl 400 MG 1 tablet Orally Once a day Active apixaban 5 mg oral tablet (3 sources) Factor Xa Inhibitor take 1 tablet by mouth twice daily Apixaban 5 MG 1 tablet Orally Twice a day Active ASPIRIN 81 MG - this medication is not being screened (6 sources) Start: 02-20-2010 ASPIRIN 81 MG - this medication is not being screened ASPIRIN 81 MG - this medication is not being screened( ) Active -Hx Entry for 0 *Reorder from Flowbox for eRx and Interaction Alerts* Feb, Active benzonatate 100 mg oral capsule (6 sources) Non-narcotic Antitussive Start: 03-05-2023 take 1 capsule by mouth three times daily as needed Tessalon Perles 100 MG 1 capsule as needed Orally Three times a day for 7 days Feb, Active Start: 01-26-2022 Benzonatate 20 0 MG benzonatate 200mg, 1 Capsule 2 to 3 times per day;cough # 30, 01/26/2022, No Refill. Active Oral 2 to 3 times per day;cough for 0 Jan, Active bumetanide 1 mg oral tablet (3 sources) Loop Diuretic take 1 tablet by mouth every twenty-four hours Bumetanide 1 MG 1 tablet Orally Once a day Active carvedilol 6.25 mg oral tablet (3 sources) alpha-Adrenergic Kayli, beta-Adrenergic Kayli take 1 tablet by mouth every twelve hours Carvedilol 6.25 MG 1 tablet with food Orally Twice a day Active dapagliflozin 10 mg oral tablet (3 sources) Sodium-Glucose Cotransporter 2 Inhibitor take 1 tablet by mouth once daily Dapagliflozin Propanediol 10 MG 1 tablet Orally Once a day Active diclofenac sodium 75 mg extended release oral tablet (9 sources) Nonsteroidal Anti-inflammatory Drug Start: 022 take 1 tablet by mouth twice daily Diclofenac Sodium 75MG Diclofenac Sodium 75MG, 1 Tablet Tablet twice a day # 0, 11/27/2021, No Refill. Active Oral twice a day for 0 *Pick strength-form from Flowbox for eRX* Nov, Active take 1 tablet by dayday th twice daily at mealtime Diclofenac Sodium 75 MG TAKE 1 TABLET BY MOUTH TWICE DAILY WITH FOOD for 90 Not-Taking/PRN magnesium oxide 400 mg oral tablet (3 sources) take 1 tablet by mouth every twenty-four hours Magnesium Oxide 400 MG 1 tablet as needed Orally Once a day Active metFORMIN hydrochloride 500 mg oral tablet (12 sources) Biguanide Start: 03-16-2022 take 1 tablet by mouth once daily in the evening Metformin 500mg metFORMIN 500mg, 1 (one) Tablet every evening # 0, 03/16/2022, No Refill. Active oral every evening for 0 *Reorder from Flowbox for eRx and Interaction Alerts* Feb, Active take 1 tablet by dayday th once daily in the evening metFORMIN HCl ER 500 MG TAKE 1 TABLET BY MOUTH EVERY EVENING for 90 Active metFORMIN HCl No t-Taking/PRN metFORMIN HCl No t-Taking metoprolol tartrate 50 mg oral tablet (9 sources) beta-Adrenergic Kayli Start: 09-02-2021 take 1 tablet by mouth once daily Metoprolol Succinate ER 50MG Metoprolol Succinate ER 50MG, 1 (one) Tablet Tablet daily # 0, 09/02/2021, No Refill. Active Oral daily for 0 *Pick strength-form from Flowbox for eRX* August, Active take 1 tablet by dayday th every twenty-four hours Metoprolol Succinate ER 50 MG 1 tablet Orally Once a day for 90 days Active take 1 tablet by mouth every twe lve hours Metoprolol Tartrate 50 MG 1 tablet Orally Twice a day for 30 day(s) Not-Taking/PRN Multivitamin preparation (3 sources) Multivitamin Act estela predniSONE 20 mg oral tablet (3 sources) Start: 023 take 1 tablet by mouth every twelve hours prednisone 20 MG 1 tablet Orally BID for 5 17 Feb, 2023 Active sacubitril 24 mg / valsartan 26 mg oral tablet (3 sources) Angiotensin 2 Receptor Kayli take 1 tablet by mouth every twelve hours Entresto 24-26 MG 1 tablet Orally Twice a day Active spironolactone 25 mg oral tablet (3 sources) Aldosterone Antagonist Spironolactone 25 MG 1 tablet Orally Active sulfamethoxazole 800 mg / trimethoprim 160 mg oral tablet (3 sources) Dihydrofolate Reductase Inhibitor Antibacterial, Sulfonamide Antimicrobial Start: 022 take 1 tablet by mouth twice daily Sulfamethoxazole-Trim ethoprim 800-160 MG sulfamethoxazole-trim ethoprim 800-160mg, 1 (one) Tablet two times daily # 20, 01/20/2022, No Refill. Active Oral two times daily for 0 Jan, Active vitamin B12 (3 sources) Vitamin B12 Vitamin B 12 Act estela Completed/Discontinued Medications Medication Drug Class(es) Dates Sig (Normalized) Sig (Original) amitriptyline hydrochloride 25 mg oral tablet (6 sources) Tricyclic Antidepressant Start: 09-17-2021 Amitriptyline HCl 25MG Amitriptyline HCl 25MG, 1 (one) Tablet Tablet at bedtime # 30, 09/17/2021, No Refill. Active Oral at bedtime for 0 *Pick strength-form from Flowbox for eRX* Sep, Not-Taking/PRN take 1 tablet by mouth at bedtim e Amitriptyline HCl 25 MG TAKE 1 TABLET BY MOUTH AT BEDTIME for 90 Active Aspir-81 81 MG (3 sources) take 1 tablet by dayday th once daily as needed Aspir-81 81 MG 1 tablet Orally Once a day for 30 day(s) Not-Taking/PRN take 1 tablet by mouth once alvarez y Aspir-81 81 MG 1 tablet Orally Once a day for 30 day(s) Not-Taking cephalexin 500 mg oral capsule (3 sources) Cephalosporin Antibacterial Start: 09-26-2021 take 1 capsule by mouth every eight hours Cephalexin 500 MG 1 capsule Orally three times a day for 10 day(s) Sep, Not-Taking/PRN Ketorolac (12 sources) Nonsteroidal Anti-inflammatory Drug, Cyclooxygenase Inhibitor Start: 06-09-2020 Toradol per 15 mg May, 30 mg Start: 11-13-2016 Toradol per 15 mg Oct, 30 mg Triamcinolone (12 sources) Corticosteroid Start: 06-09-2020 Kenalog -40 mg May, 40 mg Start: 11-13-2016 KENALOG - 10 m g Oct, 40 mg Problems Active Problems Problem Classification Problem Date Documented Da te Episodic/Chronic Acute bronchitis (12 sources) Acute bronchitis; Translations: [Acute bronchitis due to other specified organisms] Episodic Cardiac dysrhythmias (20 sources) Premature beats; Translations: [Other premature beats] Onset: 8 Chronic Chronic obstructive pulmonary disease and bronchiectasis (6 sources) Bronchitis; Translations: [Bronchitis, not specified as acute or chronic] Episodic Coagulation and hemorrhagic disorders (6 sources) Immune thrombocytopenic purpura; Translations: [Immune thrombocytopenic purpura] Chronic Complications of surgical procedures or medical care (2 sources) Hypotension due to drugs; Translations: [Hypotension due to drugs] Onset: 4 Episodic Conduction disorders (7 sources) Left bundle-branch block, unspecified; Translations: [Left bundle branch block] Onset: 9 Chronic Congestive heart failure; nonhypertensive (8 sources) Congestive heart failure; Translations: [Heart failure, unspecified] Onset: 4 Chronic Diabetes mellitus with complications (6 sources) Hyperglycemia due to type 2 diabetes mellitus; Translations: [Type 2 diabetes mellitus with hyperglycemia] Chronic Diabetes mellitus without complication (6 sources) Impaired fasting glycemia; Translations: [Impaired fasting glucose] Episodic Essential hypertension (10 sources) Essential hypertension; Translations: [Essential (primary) hypertension] Onset: 1 Chronic Genitourinary symptoms and ill-defined conditions (6 sources) Finding of frequency of urination; Translations: [Frequency of micturition] Episodic Osteoarthritis (20 sources) Osteoarthritis; Translations: [Unspecified osteoarthritis, unspecified site] Onset: 7 Chronic Other circulatory disease (6 sources) Elevated blood-pressure reading without diagnosis of hypertension; Translations: [Elevated blood-pressure reading, without diagnosis of hypertension] Episodic Other connective tissue disease (6 sources) History of total knee arthroplasty; Translations: [Presence of right artificial knee joint] Chronic Other connective tissue disease (6 sources) Pain in limb; Translations: [Pain in right finger(s)] Episodic Other diseases of bladder and urethra (6 sources) Overactive bladder; Translations: [Overactive bladder] Onset: 3 Chronic Other gastrointestinal disorders (6 sources) Irritable bowel syndrome with diarrhea; Translations: [Irritable bowel syndrome with diarrhea] Chronic Other gastrointestinal disorders (6 sources) Diarrhea; Translations: [Diarrhea, unspecified] Episodic Other nutritional; endocrine; and metabolic disorders (6 sources) Morbid obesity; Translations: [Morbid (severe) obesity due to excess calories] Onset: 5 Chronic Other nutritional; endocrine; and metabolic disorders (12 sources) Body mass index 40+ - severely obese; Translations: [Body mass index (BMI) 60.0-69.9, adult] Chronic Other screening for suspected conditions (not mental disorders or infectious disease) (11 sources) Abnormal electrocardiogram [ECG] [EKG]; Translations: [Other abnormal and inconclusive findings on diagnostic imaging of breast] Onset: 9 Episodic Other upper respiratory disease (6 sources) Seasonal allergic rhinitis; Translations: [Other seasonal allergic rhinitis] Onset: 7 Chronic Other upper respiratory disease (6 sources) Allergic rhinitis; Translations: [Allergic rhinitis, unspecified] Chronic Other upper respiratory infections (6 sources) Sinusitis; Translations: [Chronic sinusitis, unspecified] Chronic Residual codes; unclassified (9 sources) Obstructive sleep apnea syndrome; Translations: [Obstructive sleep apnea (adult) (pediatric)] Onset: 4 Chronic Residual codes; unclassified (1 source) Obstructive sleep apnea (adult) (pediatric) Chronic Residual codes; unclassified (6 sources) Family history of diabetes mellitus; Translations: [Family history of diabetes mellitus] Episodic Residual codes; unclassified (6 sources) Localized edema; Translations: [Localized edema] Episodic Skin and subcutaneous tissue infections (12 sources) Localized infection of skin AND/OR subcutaneous tissue; Translations: [Unspecified local infection of skin and subcutaneous tissue] Onset: 6 Episodic Unclassified (3 sources) Other ventricular tachycardia; Translations: [Other ventricular tachycardia] Past or Other Problems Problem Classification Problem Date Documented Da te Episodic/Chronic Deficiency and other anemia (6 sources) Anemia; Translations: [Anemia, unspecified] Onset: 07-29-2018 Episodic Nonspecific chest pain (6 sources) Chest pain; Translations: [Chest pain, unspecified] Onset: 06-25-2015 Episodic Other gastrointestinal disorders (4 sources) Diarrhea, unspecified; Translations: [DIARRHEA UNSPECIFIED] Onset: 03-31-2021 Episodic Other liver diseases (6 sources) Elevated levels of transaminase & lactic acid dehydrogenase; Translations: [Nonspecific elevation of levels of transaminase or lactic acid dehydrogenase (LDH)] Onset: 10-11-2014 Episodic Other non-traumatic joint disorders (6 sources) Arthralgia of the ankle and/or foot; Translations: [Pain in joint, ankle and foot] Onset: 11-23-2016 Episodic Other non-traumatic joint disorders (6 sources) Arthralgia of the lower leg; Translations: [Pain in joint, lower leg] Onset: 12-09-2017 Episodic Other upper respiratory infections (6 sources) Acute maxillary sinusitis; Translations: [Acute recurrent maxillary sinusitis] Onset: 01-14-2016 Episodic Spondylosis; intervertebral disc disorders; other back problems (6 sources) Low back pain; Translations: [Lumbago] Onset: 12-03-2014 Episodic Unclassified (1 source) Contact with and (suspected) exposure to covid-19 Z20.822 Viral infection (1 source) COVID-19 Results Test Name Value Interpretation Reference Range Facility Office Visiton 06-18-2023 Follow-up visit [id number] Fern Cardoso 1960 F Date Provider Department Center 06/18/2023 LARA MARK ELAINE Singh Family History Problem Relation Age of Onset Heart attack Mother Stroke Mother Atrial fibrillation Father Heart attack Brother Stroke Brother Family Status - Relation Status Age at Mother Father Brother Level of Service:87470 OK OFFICE/OUTPATIENT ESTABLISHED MOD MDM 30 MIN Normal [facility] Office Visiton 06-08-2023 Follow-up visit [id number] Fern Cardoso 1960 Date Provider Department Center 06/08/2023 JOSE LUIS WILLIS ELAINE Singh Family History Problem Relation Age of Onset Heart attack Mother Stroke Mother Atrial fibrillation Father Heart attack Brother Stroke Brother Family Status - Relation Status Age at Mother Father Brother Level of Service:74934 OK OFFICE/OUTPATIENT NEW HIGH MDM 60 MINUTES [facility] Office Visiton 05-17-2023 Follow-up visit [id number] Fern Cardoso 1960 Provider Department Center 05/17/2023 Yoko-JOHNATHON REGINA JAIR [facility] Family History Problem Relation Age of Onset Heart attack Mother Stroke Mother Atrial fibrillation Father Heart attack Brother Stroke Brother Family Status - Relation Status Age at Mother Father Brother Level of Service:[id number] OK OFFICE/OUTPATIENT ESTABLISHED LOW MDM 20 MIN [facility] 36on 05-12-2023 36 Discharge date: 05/11/23 Call date: 05/12/23 Spoke with: patient HF Follow-up date: 05/17/23 Med reconciliation completed: yes Questions/Concerns: Home meds reviewe with pt. Pt asked about [place] paperwork that her company was to fax over to the 3rd floor for the discharging provider. Primary [employer] will reach out to the Hospitalist team. Pt is aware of follow up appt. Primary [employer] encouraged pt to monitor daily weights and notified pt where to find education on her AVS to refer to. [facility] Documentationon 05-12-2023 Documentation [id number] Fern Cardoso 1960 Provider Department Center 05/12/2023 SUSSY SOLO [facility] No family history on file Reason for Visit and Comments: HF inpatient satisfaction survey sent. [Other] [facility] Telephoneon 05-12-2023 Telephone [id number] Fern Cardoso 1960 Provider Department Center 05/12/[id number]-QMTVPSASUSSY WYATT [facility] No family history on file Reason for Visit and Comments: HF post discharge call [Other] [facility] 30on 05-11-2023 30 Problem: Pain - Adul t Goal: Verbalizes/displays adequate comfort level or baseline comfort level Outcome: Progressing Problem: Safety - Adult Goal: Free from fall injury Outcome: Progressing Flowsheets (Taken 05/11/2023 0746) Free from fall injury: Assess patient frequently for physical needs Identify cognitive and physical deficits and behaviors that affect risk of falls [facility] fall precautions as indicated by assessment Modify environment to reduce risk of injury Instruct patient to call for assistance with activity based on assessment Educate patient/family on patient safety, including physical limitations Consider OT/PT consult to assist with strengthening/mobility Problem: Discharge Planning Goal: Discharge to home or other facility with appropriate resources Outcome: Progressing Problem: Chronic Conditions and Co-morbidities Goal: Patient's chronic conditions and co-morbidity symptoms are monitored and maintained or improved Outcome: Progressing Problem: Skin/Tissue Integrity - Adult Goal: Skin integrity remains intact Recent Flowsheet Documentation Taken 05/11/2023728 by Verónica Pope RN Skin integrity remains intact: Monitor for areas of redness and/or skin breakdown Assess vascular access sites hourly Change oxygen saturation probe site as needed If on nasal continuous positive airway pressure, respiratory therapy assesses nares and determine need for appliance change or resting period as needed Goal: Incisions, wounds, or drain sites healing without S/S of infection Recent Flowsheet Documentation Taken 05/11/2023728 by Verónica Pope RN Incisions, wounds, or drain sites healing without sign and symptoms of infection: ADMISSION and DAILY: Assess and document risk factors for pressure ulcer development Problem: Genitourinary - Adult Goal: Absence of urinary retention Recent Flowsheet Documentation Taken 05/11/2023728 by Verónica Pope RN Absence of urinary retention: Assess patient???s ability to void and empty bladder Monitor intake/output and perform bladder scan as needed Place urinary catheter per Licensed Independent Practitioner order if needed Discuss with Licensed Independent Practitioner medications to alleviate retention as needed Discuss catheterization for retirement situations as appropriate The patient is Moderately Stable - Low risk of patient condition declining or worsening The patient's goals for the shift include comfort The clinical goals for the shift include safety Normal [facility] BASIC METABOLIC PANELon 04-20 Anion gap [Moles/Vol] 11 mmol/L Normal 7-20 [facility] Comment on above: Performed By: #### L [id number] ####[facility] (BEAKER)[address] [place] [address] Calcium [Mass/Vol] 9.7 mg/dL Normal 8.6-10.3 [facility] Comment on above: Performed By: #### L [id number] ####[facility] ([facility]ER)[address] [place] [address] Chloride [Moles/Vol] 98 mmol/L Normal 98-107 [facility] Comment on above: Performed By: #### L [id number] ####[facility] [place] [address] CO2 [Moles/Vol] 30 mmol/L Normal 21-31 [facility] Comment on above: Performed By: #### L [id number] ####[facility] ([facility])[address] [place] [address] Creatinine [Mass/Vol] 0.80 mg/dL Normal 0.60-1.20 [facility] Comment on above: Performed By: #### L [id number] ####[facility] ([facility])[address] [place] [address] GLOMERULAR FILTRATION RATE ML/MIN/1.73 SQ M.PREDICTED 83.8 mL/min/1.73m*2 Normal >60.0 [facility] Comment on above: Result Comment: The [facility]???s estimated glomerular filtration rate (eGFR) will no longer include consideration of race in its calculation. The National Kidney Foundation???s eGFR Task Force developed new recommendations for the estimation of the glomerular filtration rate in the [place] They recommend immediate implementation of the new equation refit without the race variable in all laboratories because the calculation does not include race. In addition to not including race in the calculation and reporting, it included diversity in its development, and has acceptable performance characteristics and potential consequences that do not disproportionately affect any one group of individuals. Performed By: #### L [id number] ####[facility] ([facility] [place] [address] Glucose [Mass/Vol] 116 mg/dL High 70-100 [facility] Comment on above: Performed By: #### L [id number] ####[facility] ([facility]AKER)[address] [place] [address] Potassium [Moles/Vol] 3.7 mmol/L Normal 3.5-5.1 [facility] Comment on above: Performed By: #### L [id number] ####[facility] ([facility]ER)[address] [place] [address] Sodium [Moles/Vol] 135 mmol/L Low 136-145 [facility] Comment on above: Performed By: #### L [id number] ####[facility] ([facility] [place] [address] Urea nitrogen [Mass/Vol] 17 mg/dL Normal 7-25 [facility] Comment on above: Performed By: #### L [id number] ####[facility] ([facility])[address] [place] [address] UREA NITROGEN/CREATININE (MASS RATIO) IN SER/PLAS 21.3 Normal [facility] Comment on above: Performed By: #### L [id number] ####[facility] ([facility])[address] [place] [address] CBCon 05-11-2023 Erythrocyte distribution width (RBC) [Ratio] 15.2 % High 11.5-15.0 [facility] Comment on above: Performed By: #### L [id number] ####[facility] ([facility] [place] [address] ERYTHROCYTE MEAN CORPUSCULAR HEMOGLOBIN CONCENTRATION (G/DL) BY AUTOMATED 31.9 g/dL Low 32.0-35.0 [facility] Comment on above: Performed By: #### L [id number] ####[facility] ([facility] [place] [address] Hematocrit (Bld) [Volume fraction] 40.7 % Normal 36.0-48.0 [facility] Comment on above: Performed By: #### L [id number] ####[facility] (BEAKER)[address] [place] [address] Hemoglobin (Bld) [Mass/Vol] 13.0 g/dL Normal 12.0-15.0 [facility] Comment on above: Performed By: #### L [id number] ####[facility] ([facility])[address] [place] [address] MCH (RBC) [Entitic mass] 28.4 pg Normal 27.0-33.0 [facility] Comment on above: Performed By: #### L [id number] ####[facility] ([facility])[address] [place] [address] MCV (RBC) [Entitic vol] 88.9 fL Normal 82.0-98.0 [facility] Comment on above: Performed By: #### L [id number] ####[facility] ([facility])[address] [place] [address] PLATELETS (10*3/UL) IN BLOOD AUTOMATED COUNT 107 10*3/uL Low 150-400 [facility] Comment on above: Performed By: #### L [id number] ####[facility] ([facility])[address] [place] [address] RBC (Bld) [#/Vol] 4.58 10*6/uL Normal 3.80-5.00 [facility] Comment on above: Performed By: #### L [id number] ####[facility] ([facility])[address] [place] [address] WBC (Bld) [#/Vol] 4.32 10*3/uL Normal 4.00-10.60 [facility] Comment on above: Performed By: #### L [id number] ####[facility] ([facility])[address] [place] [address] LIPID PANELon 05-11-2023 CHOL/HDL 4.8 mg/dL Normal [facility] [facility] Comment on above: Performed By: #### L [id number] #### [facility] ([facility]) [address] [place] [address] Cholesterol [Mass/Vol] 152 mg/dL Normal 120-200 [facility] Comment on above: Performed By: #### L [id number] #### [facility] ([facility]) [address] [place] [address] Magnesium [Mass/Vol] 77 mg/dL Normal 40-149 [facility] Comment on above: Result Comment: TRIG LYCERIDE REFERENCE RANGE: 20 YEARS AND OLDER CARDIOVASCULAR RISK LESS THAN 150 mg/dL LOW RISK 150 TO 199 mg/dL BORDERLINE RISK 200 mg/dL AND GREATER HIGH RISK Performed By: #### L [id number] #### [facility] ([facility] [address] [place] [address] Magnesium [Mass/Vol] 105 mg/dL Normal 0-160 [facility] Comment on above: Performed By: #### L [id number] #### [facility] ([facility] [address] [place] [address] Magnesium [Mass/Vol] 32 mg/dL Normal 23-92 [facility] Comment on above: Performed By: #### L [id number] #### [facility] ([facility]) [address] [place] [address] NON HDL CHOL. (LDL+VLDL) 120 Normal [facility] Comment on above: Performed By: #### L [id number] #### [facility] ([facility] [address] [place] [address] TOTAL VLDL-C 15 mg/dL Normal 0-40 [facility] Comment on above: Performed By: #### L [id number] #### [facility] ([facility] [address] [place] [address] MAGNESIUMon 05-11-2023 Magnesium [Mass/Vol] 1.7 mg/dL Low 1.9-2.7 [facility] Comment on above: Performed By: #### L [id number] ####[facility] ([facility])[address] [place] [address] POCT GLUCOSE METER UNSOLICIT ED RESULTSon 05-11-2023 Glucose [Mass/Vol] 114 mg/dL High 70-105 [facility] Comment on above: Order Comment: Waive d Testing in the ED is performed under the ED CLIA certificate #[id number]. Result Comment: [email or web address] Performed By: #### L [id number] #### [facility] ([facility]) [address] [place] [address] 30on 05-10-2023 30 The patient is Moderately Stable - Low risk of patient condition declining or worsening The patient's goals for the shift include comfort The clinical goals for the shift include safety Normal [facility] 30 Problem: Pain - Adul t Goal: Verbalizes/displays adequate comfort level or baseline comfort level Outcome: Progressing Problem: Safety - Adult Goal: Free from fall injury Outcome: Progressing Flowsheets (Taken 05/10/2023 0848) Free from fall injury: Assess patient frequently for physical needs Identify cognitive and physical deficits and behaviors that affect risk of falls [facility] fall precautions as indicated by assessment Educate patient/family on patient safety, including physical limitations Instruct patient to call for assistance with activity based on assessment Modify environment to reduce risk of injury Consider OT/PT consult to assist with strengthening/mobility Problem: Discharge Planning Goal: Discharge to home or other facility with appropriate resources Outcome: Progressing Problem: Chronic Conditions and Co-morbidities Goal: Patient's chronic conditions and co-morbidity symptoms are monitored and maintained or improved Outcome: Progressing Problem: Skin/Tissue Integrity - Adult Goal: Skin integrity remains intact Recent Flowsheet Documentation Taken 05/10/2023 0841 by Verónica Pope RN Skin integrity remains intact: Monitor for areas of redness and/or skin breakdown Assess vascular access sites hourly Change oxygen saturation probe site as needed If on nasal continuous positive airway pressure, respiratory therapy assesses nares and determine need for appliance change or resting period as needed Goal: Incisions, wounds, or drain sites healing without S/S of infection Recent Flowsheet Documentation Taken 05/10/2023 0841 by Verónica Pope RN Incisions, wounds, or drain sites healing without sign and symptoms of infection: ADMISSION and DAILY: Assess and document risk factors for pressure ulcer development The patient is Moderately Stable - Low risk of patient condition declining or worsening The patient's goals for the shift include comfort The clinical goals for the shift include safety Normal [facility] BASIC METABOLIC PANELon 04-20 Anion gap [Moles/Vol] 8 mmol/L Normal 7-20 [facility] Comment on above: Performed By: #### L [id number] ####[facility] ([facility])[address] [place] [address] Calcium [Mass/Vol] 9.7 mg/dL Normal 8.6-10.3 [facility] Comment on above: Performed By: #### L [id number] ####[facility] ([facility])[address] [place] [address] Chloride [Moles/Vol] 99 mmol/L Normal 98-107 [facility] Comment on above: Performed By: #### L [id number] ####[facility] ([facility])[address] [place] [address] CO2 [Moles/Vol] 33 mmol/L High 21-31 [facility] Comment on above: Performed By: #### L [id number] ####[facility] ([facility])[address] [place] [address] Creatinine [Mass/Vol] 0.80 mg/dL Normal 0.60-1.20 [facility] Comment on above: Performed By: #### L [id number] ####[facility] ([facility])[address] [place] [address] GLOMERULAR FILTRATION RATE ML/MIN/1.73 SQ M.PREDICTED 83.8 mL/min/1.73m*2 Normal >60.0 [facility] Comment on above: Result Comment: The [facility]???s estimated glomerular filtration rate (eGFR) will no longer include consideration of race in its calculation. The National Kidney Foundation???s eGFR Task Force developed new recommendations for the estimation of the glomerular filtration rate in the [place] They recommend immediate implementation of the new equation refit without the race variable in all laboratories because the calculation does not include race. In addition to not including race in the calculation and reporting, it included diversity in its development, and has acceptable performance characteristics and potential consequences that do not disproportionately affect any one group of individuals. Performed By: #### L [id number] ####[facility] ([facility])[address] [place] [address] Glucose [Mass/Vol] 110 mg/dL High 70-100 [facility] Comment on above: Performed By: #### L [id number] ####[facility] ([facility] [place] [address] Potassium [Moles/Vol] 3.8 mmol/L Normal 3.5-5.1 [facility] Comment on above: Performed By: #### L [id number] ####[facility] ([facility])[address] [place] [address] Sodium [Moles/Vol] 136 mmol/L Normal 136-145 [facility] Comment on above: Performed By: #### L [id number] ####[facility] ([facility])[address] [place] [address] Urea nitrogen [Mass/Vol] 18 mg/dL Normal 7-25 [facility] Comment on above: Performed By: #### L [id number] ####[facility] ([facility])[address] [place] [address] UREA NITROGEN/CREATININE (MASS RATIO) IN SER/PLAS 22.5 Normal [facility] Comment on above: Performed By: #### L [id number] ####[facility] ([facility])[address] [place] [address] MAGNESIUMon 05-10-2023 Magnesium [Mass/Vol] 1.7 mg/dL Low 1.9-2.7 [facility] Comment on above: Performed By: #### L [id number] ####[facility] ([facility])[address] [place] [address] POCT GLUCOSE METER UNSOLICIT ED RESULTSon 05-10-2023 Glucose [Mass/Vol] 119 mg/dL High 70-105 [facility] Comment on above: Order Comment: Waive d Testing in the ED is performed under the ED CLIA certificate #[id number]. Result Comment: [email or web address] Performed By: #### L [id number] ####[facility] ([facility])[address] [place] [address] Glucose [Mass/Vol] 141 mg/dL High 70-105 [facility] Comment on above: Order Comment: Waive d Testing in the ED is performed under the ED CLIA certificate #[id number]. Result Comment: [email or web address] Performed By: #### L [id number] ####[facility] ([facility] [place] [address] Glucose [Mass/Vol] 162 mg/dL High 70-105 [facility] Comment on above: Order Comment: Waive d Testing in the ED is performed under the ED CLIA certificate #[id number]. Result Comment: [email or web address] Performed By: #### L [id number] ####[facility] ([facility])[address] [place] [address] Glucose [Mass/Vol] 111 mg/dL High 70-105 [facility] Comment on above: Order Comment: Waive d Testing in the ED is performed under the ED CLIA certificate #[id number]. Result Comment: [email or web address] Performed By: #### L [id number] ####[facility] ([facility])[address] [place] [address] 30on 05-09-2023 30 The patient is Moderately Stable - Low risk of patient condition declining or worsening The patient's goals for the shift include comfort The clinical goals for the shift include safety Over the shift, the patient did not make progress toward the following goals. Barriers to progression include a-fib. Recommendations to address these barriers include making changes to the current treatment plan as needed. Problem: Cardiovascular - Adult Goal: Absence of cardiac dysrhythmias or at baseline Outcome: Not Progressing Flowsheets (Taken 05/09/20232024) Absence of cardiac dysrhythmias or at baseline: Monitor cardiac rate and rhythm Assess for signs of decreased cardiac output Administer antiarrhythmia medication and electrolyte replacement as ordered Normal [facility] 30 The patient is Moderately Stable - Low risk of patient condition declining or worsening The patient's goals for the shift include comfort The clinical goals for the shift include safety Problem: Pain - Adult Goal: Verbalizes/displays adequate comfort level or baseline comfort level Outcome: Progressing Problem: Safety - Adult Goal: Free from fall injury Outcome: Progressing Problem: Discharge Planning Goal: Discharge to home or other facility with appropriate resources Outcome: Progressing Problem: Chronic Conditions and Co-morbidities Goal: Patient's chronic conditions and co-morbidity symptoms are monitored and maintained or improved Outcome: Progressing Problem: Neurosensory - Adult Goal: Achieves stable or improved neurological status Outcome: Progressing Problem: Cardiovascular - Adult Goal: Maintains optimal cardiac output and hemodynamic stability Outcome: Progressing Goal: Absence of cardiac dysrhythmias or at baseline Outcome: Progressing Problem: Respiratory - Adult Goal: Achieves optimal ventilation and oxygenation Outcome: Progressing Problem: Skin/Tissue Integrity - Adult Goal: Skin integrity remains intact Outcome: Progressing Goal: Incisions, wounds, or drain sites healing without S/S of infection Outcome: Progressing Problem: Musculoskeletal - Adult Goal: Return mobility to safest level of function Outcome: Progressing Problem: Gastrointestinal - Adult Goal: Minimal or absence of nausea and vomiting Outcome: Progressing Goal: Maintains or returns to baseline bowel function Outcome: Progressing Problem: Genitourinary - Adult Goal: Absence of urinary retention Outcome: Progressing Problem: Metabolic/Fluid and Electrolytes - Adult Goal: Electrolytes maintained within normal limits Outcome: Progressing Goal: Glucose maintained within prescribed range Outcome: Progressing Normal [facility] BASIC METABOLIC PANELon 04-20 Anion gap [Moles/Vol] 10 mmol/L Normal 7-20 [facility] Comment on above: Performed By: #### L [id number] #### [facility] ([facility]) [address] [place] [address] Calcium [Mass/Vol] 9.4 mg/dL Normal 8.6-10.3 [facility] Comment on above: Performed By: #### L [id number] #### [facility] ([facility]) [address] [place] [address] Chloride [Moles/Vol] 98 mmol/L Normal 98-107 [facility] Comment on above: Performed By: #### L [id number] #### [facility] ([facility]) [address] [place] [address] CO2 [Moles/Vol] 31 mmol/L Normal 21-31 [facility] Comment on above: Performed By: #### L [id number] #### [facility] ([facility]) [address] [place] [address] Creatinine [Mass/Vol] 0.90 mg/dL Normal 0.60-1.20 [facility] Comment on above: Performed By: #### L [id number] #### [facility] ([facility]) [address] [place] [address] GLOMERULAR FILTRATION RATE ML/MIN/1.73 SQ M.PREDICTED 72.7 mL/min/1.73m*2 Normal >60.0 [facility] Comment on above: Result Comment: The [facility]???s estimated glomerular filtration rate (eGFR) will no longer include consideration of race in its calculation. The National Kidney Foundation???s eGFR Task Force developed new recommendations for the estimation of the glomerular filtration rate in the [place] They recommend immediate implementation of the new equation refit without the race variable in all laboratories because the calculation does not include race. In addition to not including race in the calculation and reporting, it included diversity in its development, and has acceptable performance characteristics and potential consequences that do not disproportionately affect any one group of individuals. Performed By: #### L [id number] #### [facility] ([facility]) [address] [place] [address] Glucose [Mass/Vol] 102 mg/dL High 70-100 [facility] Comment on above: Performed By: #### L [id number] #### [facility] ([facility]) [address] [place] [address] Potassium [Moles/Vol] 4.0 mmol/L Normal 3.5-5.1 [facility] Comment on above: Performed By: #### L [id number] #### [facility] ([facility]) [address] [facility] [place] [address] Sodium [Moles/Vol] 135 mmol/L Low 136-145 [facility] Comment on above: Performed By: #### L [id number] #### [facility] ([facility]) [address] [place] [address] Urea nitrogen [Mass/Vol] 20 mg/dL Normal 7-25 [facility] Comment on above: Performed By: #### L [id number] #### [facility] ([facility]) [address] [place] [address] UREA NITROGEN/CREATININE (MASS RATIO) IN SER/PLAS 22.2 Normal [facility] Comment on above: Performed By: #### L [id number] #### [facility] ([facility]) [address] [place] [address] CBCon 05-09-2023 Erythrocyte distribution width (RBC) [Ratio] 15.7 % High 11.5-15.0 [facility] Comment on above: Performed By: #### L [id number] #### [facility] ([facility]) [address] [place] [address] ERYTHROCYTE MEAN CORPUSCULAR HEMOGLOBIN CONCENTRATION (G/DL) BY AUTOMATED 32.6 g/dL Normal 32.0-35.0 [facility] Comment on above: Performed By: #### L [id number] #### [facility] ([facility]) [address] [address] Hematocrit (Bld) [Volume fraction] 39.6 % Normal 36.0-48.0 [facility] Comment on above: Performed By: #### L [id number] #### [facility] ([facility]) [address] [address] Hemoglobin (Bld) [Mass/Vol] 12.9 g/dL Normal 12.0-15.0 [facility] Comment on above: Performed By: #### L [id number] #### [facility] ([facility]) [address] [address] MCH (RBC) [Entitic mass] 28.8 pg Normal 27.0-33.0 [facility] Comment on above: Performed By: #### L [id number] #### [facility] ([facility]) [address] [address] MCV (RBC) [Entitic vol] 88.4 fL Normal 82.0-98.0 [facility] Comment on above: Performed By: #### L [id number] #### [facility] ([facility]) [address] [place] [address] PLATELETS (10*3/UL) IN BLOOD AUTOMATED COUNT 124 10*3/uL Low 150-400 [facility] Comment on above: Performed By: #### L [id number] #### [facility] ([facility]) [address] [place] [address] RBC (Bld) [#/Vol] 4.48 10*6/uL Normal 3.80-5.00 [facility] Comment on above: Performed By: #### L [id number] #### [facility] ([facility]) [address] [place] [address] WBC (Bld) [#/Vol] 4.51 10*3/uL Normal 4.00-10.60 [facility] Comment on above: Performed By: #### L [id number] #### [facility] ([facility]) [address] [place] [address] MAGNESIUMon 05-09-2023 Magnesium [Mass/Vol] 1.9 mg/dL Normal 1.9-2.7 [facility] Comment on above: Performed By: #### L [id number] #### [facility] ([facility]) [address] [place] [address] POCT GLUCOSE METER UNSOLICIT ED RESULTSon 05-09-2023 Glucose [Mass/Vol] 145 mg/dL High 70-105 [facility] Comment on above: Order Comment: Waive d Testing in the ED is performed under the ED CLIA certificate #[id number]. Result Comment: [email or web address] Performed By: #### L [id number] #### [facility] ([facility]) [address] [place] [address] Glucose [Mass/Vol] 118 mg/dL High 70-105 [facility] Comment on above: Order Comment: Waive d Testing in the ED is performed under the ED CLIA certificate #[id number]. Result Comment: [email or web address] Performed By: #### L [id number] ####[facility] ([facility])[address] [place] [address] Glucose [Mass/Vol] 152 mg/dL High 70-105 [facility] Comment on above: Order Comment: Waive d Testing in the ED is performed under the ED CLIA certificate #[id number]. Result Comment: [email or web address] Performed By: #### L [id number] #### [facility] ([facility]) [address] [place] [address] Glucose [Mass/Vol] 105 mg/dL Normal 70-105 [facility] Comment on above: Order Comment: Waive d Testing in the ED is performed under the ED CLIA certificate #[id number]. Result Comment: [email or web address] Performed By: #### L [id number] #### [facility] ([facility]) [address] [facility] [place] [address] 30on 05-08-2023 30 The patient is Moderately Stable - Low risk of patient condition declining or worsening The patient's goals for the shift include comfort The clinical goals for the shift include safety Normal [facility] 30 The patient is Moderately Stable - Low risk of patient condition declining or worsening The patient's goals for the shift include comfort The clinical goals for the shift include safety Problem: Pain - Adult Goal: Verbalizes/displays adequate comfort level or baseline comfort level Outcome: Progressing Problem: Safety - Adult Goal: Free from fall injury Outcome: Progressing Problem: Discharge Planning Goal: Discharge to home or other facility with appropriate resources Outcome: Progressing Problem: Chronic Conditions and Co-morbidities Goal: Patient's chronic conditions and co-morbidity symptoms are monitored and maintained or improved Outcome: Progressing Normal [facility] 30 The patient is Moderately Stable - Low risk of patient condition declining or worsening The patient's goals for the shift include comfort The clinical goals for the shift include safety Normal [facility] APTTon 05-08-2023 ACTIVATED PARTIAL THROMBOPLASTIN TIME IN PPP BY COAGULATION ASSAY 36.7 Seconds High 25.0-35.0 [facility] Comment on above: Result Comment: Clin ical significance of the APTT is questionable in the presence of heparin. Performed By: #### L [id number] #### [facility] ([facility]) [address] [place] [address] BASIC METABOLIC PANELon 04-20 0 Anion gap [Moles/Vol] 10 mmol/L Normal 7-20 [facility] Comment on above: Performed By: #### L [id number] #### [facility] ([facility]) [address] [place] [address] Calcium [Mass/Vol] 9.9 mg/dL Normal 8.6-10.3 [facility] Comment on above: Performed By: #### L [id number] #### [facility] ([facility]) [address] [place] [address] Chloride [Moles/Vol] 99 mmol/L Normal 98-107 [facility] Comment on above: Performed By: #### L [id number] #### [facility] [address] [place] [address] CO2 [Moles/Vol] 34 mmol/L High 21-31 [facility] Comment on above: Performed By: #### L [id number] #### [facility] ([facility]) [address] [place] [address] Creatinine [Mass/Vol] 0.90 mg/dL Normal 0.60-1.20 [facility] Comment on above: Performed By: #### L [id number] #### [facility] ([facility]) [address] [place] [address] GLOMERULAR FILTRATION RATE ML/MIN/1.73 SQ M.PREDICTED 72.7 mL/min/1.73m*2 Normal >60.0 [facility] Comment on above: Result Comment: The [facility]???s estimated glomerular filtration rate (eGFR) will no longer include consideration of race in its calculation. The National Kidney Foundation???s eGFR Task Force developed new recommendations for the estimation of the glomerular filtration rate in the [place] They recommend immediate implementation of the new equation refit without the race variable in all laboratories because the calculation does not include race. In addition to not including race in the calculation and reporting, it included diversity in its development, and has acceptable performance characteristics and potential consequences that do not disproportionately affect any one group of individuals. Performed By: #### L [id number] #### [facility] ([facility]) [address] [place] [address] Glucose [Mass/Vol] 94 mg/dL Normal 70-100 [facility] Comment on above: Performed By: #### L [id number] #### [facility] ([facility]) [address] [place] [address] Potassium [Moles/Vol] 3.5 mmol/L Normal 3.5-5.1 [facility] Comment on above: Performed By: #### L [id number] #### [facility] ([facility]) [address] [place] [address] Sodium [Moles/Vol] 139 mmol/L Normal 136-145 [facility] Comment on above: Performed By: #### L [id number] #### [facility] ([facility]) [address] [place] [address] Urea nitrogen [Mass/Vol] 18 mg/dL Normal 7-25 [facility] Comment on above: Performed By: #### L [id number] #### [facility] ([facility]) [address] [place] [address] UREA NITROGEN/CREATININE (MASS RATIO) IN SER/PLAS 20.0 Normal [facility] Comment on above: Performed By: #### L [id number] #### [facility] ([facility]) [address] [place] [address] MAGNESIUMon 05-08-2023 Magnesium [Mass/Vol] 1.3 mg/dL Low 1.9-2.7 [facility] Comment on above: Performed By: #### L [id number] ####[facility] ([facility])[address] [place] [address] POCT GLUCOSE METER UNSOLICIT ED RESULTSon 05-08-2023 Glucose [Mass/Vol] 121 mg/dL High 70-105 [facility] Comment on above: Order Comment: Waive d Testing in the ED is performed under the ED CLIA certificate #[id number]. Result Comment: [email or web address] Performed By: #### L [id number] #### [facility] ([facility]) [address] [place] [address] Glucose [Mass/Vol] 110 mg/dL High 70-105 [facility] Comment on above: Order Comment: Waive d Testing in the ED is performed under the ED CLIA certificate #[id number]. Result Comment: [email or web address] Performed By: #### L [id number] #### [facility] ([facility]) [address] [place] [address] Glucose [Mass/Vol] 150 mg/dL High 70-105 [facility] Comment on above: Order Comment: Waive d Testing in the ED is performed under the ED CLIA certificate #[id number]. Result Comment: [email or web address] Performed By: #### L [id number] #### [facility] ([facility]) [address] [place] [address] Glucose [Mass/Vol] 118 mg/dL High 70-105 [facility] Comment on above: Order Comment: Waive d Testing in the ED is performed under the ED CLIA certificate #[id number]. Result Comment: [email or web address] Performed By: #### L [id number] #### [facility] ([facility]) [address] [facility] [place] [address] 30on 05-07-2023 30 Problem: Pain - Adul t Goal: Verbalizes/displays adequate comfort level or baseline comfort level Outcome: Progressing Flowsheets (Taken 05/07/2023 0833) Verbalizes/displays adequate comfort level or baseline comfort level: Encourage patient to monitor pain and request assistance Assess pain using appropriate pain scale Administer analgesics based on type and severity of pain and evaluate response Implement non-pharmacological measures as appropriate and evaluate response Consider cultural and social influences on pain and pain management Notify Licensed Independent Practitioner if interventions unsuccessful or patient reports new pain Problem: Safety - Adult Goal: Free from fall injury Outcome: Progressing Problem: Discharge Planning Goal: Discharge to home or other facility with appropriate resources Outcome: Progressing Flowsheets (Taken 05/07/2023829) Discharge to home or other facility with appropriate resources: Identify barriers to discharge with patient and caregiver Arrange for needed discharge resources and transportation as appropriate Identify discharge learning needs (meds, wound care, etc) Arrange for interpreters to assist at discharge as needed Refer to discharge planning if patient needs post-hospital services based on physician order or complex needs related to functional status, cognitive ability or social support system Problem: Chronic Conditions and Co-morbidities Goal: Patient's chronic conditions and co-morbidity symptoms are monitored and maintained or improved Outcome: Progressing Flowsheets (Taken 05/07/2023829) Care Plan - Patient's Chronic Conditions and Co-Morbidity Symptoms are Monitored and Maintained or Improved: Monitor and assess patient's chronic conditions and comorbid symptoms for stability, deterioration, or improvement Collaborate with multidisciplinary team to address chronic and comorbid conditions and prevent exacerbation or deterioration Update acute care plan with appropriate goals if chronic or comorbid symptoms are exacerbated and prevent overall improvement and discharge The patient is Moderately Stable - Low risk of patient condition declining or worsening The patient's goals for the shift include receive cardiac cath The clinical goals for the shift include cardiac cath without complications Normal [facility] APTTon 05-07-2023 ACTIVATED PARTIAL THROMBOPLASTIN TIME IN PPP BY COAGULATION ASSAY 123.2 Seconds High 25.0-35.0 [facility] Comment on above: Order Comment: Check aPTT every 6 hours while on heparin infusion, or per protocol. Result Comment: Clin ical significance of the APTT is questionable in the presence of heparin. Performed By: #### L [id number] #### [facility] ([facility]) [address] [place] [address] ACTIVATED PARTIAL THROMBOPLASTIN TIME IN PPP BY COAGULATION ASSAY 106.0 Seconds High 25.0-35.0 [facility] Comment on above: Order Comment: Check aPTT every 6 hours while on heparin infusion, or per protocol. Result Comment: Clin ical significance of the APTT is questionable in the presence of heparin. Performed By: #### L [id number] #### [facility] ([facility]) [address] [place] [address] BASIC METABOLIC PANELon 04-19 Anion gap [Moles/Vol] 11 mmol/L Normal 7-20 [facility] Comment on above: Performed By: #### L [id number] ####[facility] ([facility])[address] [place] [address] Calcium [Mass/Vol] 9.7 mg/dL Normal 8.6-10.3 [facility] Comment on above: Performed By: #### L [id number] ####[facility] ([facility])[address] [place] [address] Chloride [Moles/Vol] 98 mmol/L Normal 98-107 [facility] Comment on above: Performed By: #### L [id number] ####[facility] ([facility])[address] [place] [address] CO2 [Moles/Vol] 32 mmol/L High 21-31 [facility] Comment on above: Performed By: #### L [id number] ####[facility] ([facility])[address] [place] [address] Creatinine [Mass/Vol] 0.86 mg/dL Normal 0.60-1.20 [facility] Comment on above: Performed By: #### L [id number] ####[facility] ([facility])[address] [place] [address] GLOMERULAR FILTRATION RATE ML/MIN/1.73 SQ M.PREDICTED 76.8 mL/min/1.73m*2 Normal >60.0 [facility] Comment on above: Result Comment: The [facility]???s estimated glomerular filtration rate (eGFR) will no longer include consideration of race in its calculation. The National Kid[employer] Foundation???s eGFR Task Force developed new recommendations for the estimation of the glomerular filtration rate in the [place] They recommend immediate implementation of the new equation refit without the race variable in all laboratories because the calculation does not include race. In addition to not including race in the calculation and reporting, it included diversity in its development, and has acceptable performance characteristics and potential consequences that do not disproportionately affect any one group of individuals. Performed By: #### L [id number] ####[facility] ([facility])[address] [place] [address] Glucose [Mass/Vol] 110 mg/dL High 70-100 [facility] Comment on above: Performed By: #### L [id number] ####[facility] ([facility])[address] [place] [address] Potassium [Moles/Vol] 3.4 mmol/L Low 3.5-5.1 [facility] Comment on above: Performed By: #### L [id number] ####[facility] ([facility])[address] [place] [address] Sodium [Moles/Vol] 138 mmol/L Normal 136-145 [facility] Comment on above: Performed By: #### L [id number] ####[facility] ([facility])[address] [place] [address] Urea nitrogen [Mass/Vol] 14 mg/dL Normal 7-25 [facility] Comment on above: Performed By: #### L [id number] ####[facility] ([facility])[address] [place] [address] UREA NITROGEN/CREATININE (MASS RATIO) IN SER/PLAS 16.3 Normal [facility] Comment on above: Performed By: #### L [id number] ####[facility] ([facility])[address] [place] [address] CBCon 05-07-2023 Erythrocyte distribution width (RBC) [Ratio] 15.7 % High 11.5-15.0 [facility] Comment on above: Performed By: #### L [id number] #### [facility] ([facility]) [address] [place] [address] ERYTHROCYTE MEAN CORPUSCULAR HEMOGLOBIN CONCENTRATION (G/DL) BY AUTOMATED 32.4 g/dL Normal 32.0-35.0 [facility] Comment on above: Performed By: #### L [id number] #### [facility] ([facility]) [address] [place] [address] Hematocrit (Bld) [Volume fraction] 38.3 % Normal 36.0-48.0 [facility] Comment on above: Performed By: #### L [id number] #### [facility] ([facility]) [address] [place] [address] Hemoglobin (Bld) [Mass/Vol] 12.4 g/dL Normal 12.0-15.0 [facility] Comment on above: Performed By: #### L [id number] #### [facility] ([facility]) [address] [place] [address] MCH (RBC) [Entitic mass] 28.6 pg Normal 27.0-33.0 [facility] Comment on above: Performed By: #### L [id number] #### [facility] ([facility]) [address] [place] [address] MCV (RBC) [Entitic vol] 88.2 fL Normal 82.0-98.0 [facility] Comment on above: Performed By: #### L [id number] #### [facility] ([facility]) [address] [place] [address] PLATELETS (10*3/UL) IN BLOOD AUTOMATED COUNT 121 10*3/uL Low 150-400 [facility] Comment on above: Performed By: #### L [id number] #### [facility] ([facility]) [address] [place] [address] RBC (Bld) [#/Vol] 4.34 10*6/uL Normal 3.80-5.00 [facility] Comment on above: Performed By: #### L [id number] #### [facility] ([facility]) [address] [place] [address] WBC (Bld) [#/Vol] 4.25 10*3/uL Normal 4.00-10.60 [facility] Comment on above: Performed By: #### L [id number] #### [facility] ([facility]) [address] [place] [address] HPon 05-07-2023 H&P reviewed. The patient was examined and there are no changes to the H&P. Regina Stark MD, MPH, FACC, [facility] Interventional Cardiology Pager Email: [email or web address] Normal [facility] POCT GLUCOSE METER UNSOLICIT ED RESULTSon 05-07-2023 Glucose [Mass/Vol] 125 mg/dL High 70-105 [facility] Comment on above: Order Comment: Waive d Testing in the ED is performed under the ED CLIA certificate #[id number]. Result Comment: [email or web address] Performed By: #### L [id number] #### [facility] ([facility]) [address] [place] [address] Glucose [Mass/Vol] 101 mg/dL Normal 70-105 [facility] Comment on above: Order Comment: Waive d Testing in the ED is performed under the ED CLIA certificate #[id number]. Result Comment: [email or web address] Performed By: #### L [id number] ####[facility] ([facility])[address] [place] [address] 30on 05-06-2023 30 The patient is Moderately Stable - Low risk of patient condition declining or worsening The patient's goals for the shift include comfort The clinical goals for the shift include VSS Problem: Pain - Adult Goal: Verbalizes/displays adequate comfort level or baseline comfort level Outcome: Progressing Flowsheets (Taken 05/06/2023 0807 by Denice Lala RN) Verbalizes/displays adequate comfort level or baseline comfort level: Encourage patient to monitor pain and request assistance Assess pain using appropriate pain scale Administer analgesics based on type and severity of pain and evaluate response Implement non-pharmacological measures as appropriate and evaluate response Consider cultural and social influences on pain and pain management Notify Licensed Independent Practitioner if interventions unsuccessful or patient reports new pain Problem: Safety - Adult Goal: Free from fall injury Outcome: Progressing Flowsheets (Taken 05/06/2023 0800 by Denice Lala RN) Free from fall injury: Assess patient frequently for physical needs Identify cognitive and physical deficits and behaviors that affect risk of falls [facility] fall precautions as indicated by assessment Educate patient/family on patient safety, including physical limitations Instruct patient to call for assistance with activity based on assessment Modify environment to reduce risk of injury Consider OT/PT consult to assist with strengthening/mobility Problem: Discharge Planning Goal: Discharge to home or other facility with appropriate resources Outcome: Progressing Flowsheets (Taken 05/06/2023 08 by Denice Lala RN) Discharge to home or other facility with appropriate resources: Identify barriers to discharge with patient and caregiver Arrange for needed discharge resources and transportation as appropriate Identify discharge learning needs (meds, wound care, etc) Arrange for interpreters to assist at discharge as needed Refer to discharge planning if patient needs post-hospital services based on physician order or complex needs related to functional status, cognitive ability or social support system Problem: Chronic Conditions and Co-morbidities Goal: Patient's chronic conditions and co-morbidity symptoms are monitored and maintained or improved Outcome: Progressing Flowsheets (Taken 05/06/2023 08 by Denice Lala RN) Care Plan - Patient's Chronic Conditions and Co-Morbidity Symptoms are Monitored and Maintained or Improved: Monitor and assess patient's chronic conditions and comorbid symptoms for stability, deterioration, or improvement Collaborate with multidisciplinary team to address chronic and comorbid conditions and prevent exacerbation or deterioration Update acute care plan with appropriate goals if chronic or comorbid symptoms are exacerbated and prevent overall improvement and discharge Normal [facility] 30 Daily Case Managemen t Update Multidisciplinary rounds have been completed. Barriers to Discharge: Pending clinical course and improvement in clinical condition. Patient admitted with chronic heart failure transferred from [facility]. Plan for coronary angiography tomorrow per Cardiology. Diet: Dietary Orders (From admission, onward) Start Ordered 05/07/23 0001 Diet NPO Diet effective midnight Comments: Sips with medications Question: Reason for NPO: Answer: Operation/Procedure 05/06/23 1502 05/06/23 1515 Special Kitchen Request Once Comments: Pls send for lunch tray now (pt did not like/eat any of the generated tray) chicken salad sandwich on wheat, peach spanish yogurt, diet cola 05/06/23 1516 05/05/23 2154 Regular Diet Diabetic Female (carb 45g/meal) Diet effective now Question Answer Comment Room Service? Yes Carbohydrate restriction: Diabetic Female (carb 45g/meal) 05/05/23 215 Physician Expected Discharge Date: Discharge Delays: PT Six Click Score: 23 OT Six Click Score: PT Recommendations: OT Recommendations: New Consults: Normal [facility] 30 Problem: Pain - Adul t Goal: Verbalizes/displays adequate comfort level or baseline comfort level Outcome: Progressing Flowsheets (Taken 05/06/2023806) Verbalizes/displays adequate comfort level or baseline comfort level: Encourage patient to monitor pain and request assistance Assess pain using appropriate pain scale Administer analgesics based on type and severity of pain and evaluate response Implement non-pharmacological measures as appropriate and evaluate response Consider cultural and social influences on pain and pain management Notify Licensed Independent Practitioner if interventions unsuccessful or patient reports new pain Problem: Safety - Adult Goal: Free from fall injury Outcome: Progressing Flowsheets (Taken 05/06/2023799) Free from fall injury: Assess patient frequently for physical needs Identify cognitive and physical deficits and behaviors that affect risk of falls [facility] fall precautions as indicated by assessment Educate patient/family on patient safety, including physical limitations Instruct patient to call for assistance with activity based on assessment Modify environment to reduce risk of injury Consider OT/PT consult to assist with strengthening/mobility Problem: Discharge Planning Goal: Discharge to home or other facility with appropriate resources Outcome: Progressing Flowsheets (Taken 05/06/2023799) Discharge to home or other facility with appropriate resources: Identify barriers to discharge with patient and caregiver Arrange for needed discharge resources and transportation as appropriate Identify discharge learning needs (meds, wound care, etc) Arrange for interpreters to assist at discharge as needed Refer to discharge planning if patient needs post-hospital services based on physician order or complex needs related to functional status, cognitive ability or social support system Problem: Chronic Conditions and Co-morbidities Goal: Patient's chronic conditions and co-morbidity symptoms are monitored and maintained or improved Outcome: Progressing Flowsheets (Taken 05/06/2023799) Care Plan - Patient's Chronic Conditions and Co-Morbidity Symptoms are Monitored and Maintained or Improved: Monitor and assess patient's chronic conditions and comorbid symptoms for stability, deterioration, or improvement Collaborate with multidisciplinary team to address chronic and comorbid conditions and prevent exacerbation or deterioration Update acute care plan with appropriate goals if chronic or comorbid symptoms are exacerbated and prevent overall improvement and discharge The patient is Moderately Stable - Low risk of patient condition declining or worsening The patient's goals for the shift include discharge The clinical goals for the shift include hemodynamically stable Normal [facility] APTTon 05-06-2023 ACTIVATED PARTIAL THROMBOPLASTIN TIME IN PPP BY COAGULATION ASSAY 104.8 Seconds High 25.0-35.0 [facility] Comment on above: Order Comment: Waive d Testing in the ED is performed under the ED CLIA certificate #[id number]. Result Comment: Clin ical significance of the APTT is questionable in the presence of heparin. Performed By: #### L [id number] #### [facility] ([facility]) [address] [place] [address] ACTIVATED PARTIAL THROMBOPLASTIN TIME IN PPP BY COAGULATION ASSAY 134.0 Seconds Critically high 25.0-35.0 [facility] Comment on above: Order Comment: Check aPTT every 6 hours while on heparin infusion, or per protocol. Result Comment: Clin ical significance of the APTT is questionable in the presence of heparin. Performed By: #### L [id number] #### [facility] ([facility]) [address] [place] [address] ACTIVATED PARTIAL THROMBOPLASTIN TIME IN PPP BY COAGULATION ASSAY 143.7 Seconds Critically high 25.0-35.0 [facility] Comment on above: Order Comment: Waive d Testing in the ED is performed under the ED CLIA certificate #[id number]. Result Comment: Clin ical significance of the APTT is questionable in the presence of heparin. Performed By: #### L [id number] #### [facility] ([facility]) [address] [place] [address] CBCon 05-06-2023 Erythrocyte distribution width (RBC) [Ratio] 15.7 % High 11.5-15.0 [facility] Comment on above: Performed By: #### L [id number] #### [facility] ([facility]) [address] [place] [address] ERYTHROCYTE MEAN CORPUSCULAR HEMOGLOBIN CONCENTRATION (G/DL) BY AUTOMATED 32.6 g/dL Normal 32.0-35.0 [facility] Comment on above: Performed By: #### L [id number] #### [facility] ([facility]) [address] [place] [address] Hematocrit (Bld) [Volume fraction] 39.9 % Normal 36.0-48.0 [facility] Comment on above: Performed By: #### L [id number] #### [facility] ([facility]) [address] [place] [address] Hemoglobin (Bld) [Mass/Vol] 13.0 g/dL Normal 12.0-15.0 [facility] Comment on above: Performed By: #### L [id number] #### [facility] ([facility]) [address] [place] [address] MCH (RBC) [Entitic mass] 28.9 pg Normal 27.0-33.0 [facility] Comment on above: Performed By: #### L [id number] #### [facility] ([facility]) [address] [place] [address] MCV (RBC) [Entitic vol] 88.7 fL Normal 82.0-98.0 [facility] Comment on above: Performed By: #### L [id number] #### [facility] ([facility]) [address] [place] [address] PLATELETS (10*3/UL) IN BLOOD AUTOMATED COUNT 139 10*3/uL Low 150-400 [facility] Comment on above: Performed By: #### L [id number] #### [facility] ([facility]) [address] [place] [address] RBC (Bld) [#/Vol] 4.50 10*6/uL Normal 3.80-5.00 [facility] Comment on above: Performed By: #### L [id number] #### [facility] ([facility]) [address] [place] [address] WBC (Bld) [#/Vol] 5.73 10*3/uL Normal 4.00-10.60 [facility] Comment on above: Performed By: #### L [id number] #### [facility] ([facility]) [address] [place] [address] COMPREHENSIVE METABOLIC PANE Shamir 05-06-2023 Albumin [Mass/Vol] 3.6 g/dL Normal 3.5-5.7 [facility] Comment on above: Performed By: #### L [id number] #### [facility] ([facility]) [address] [place] [address] ALP [Catalytic activity/Vol] 41 U/L Normal 34-104 [facility] Comment on above: Performed By: #### L [id number] #### [facility] ([facility]) [address] [place] [address] ALT [Catalytic activity/Vol] 24 U/L Normal 7-52 [facility] Comment on above: Performed By: #### L [id number] #### [facility] ([facility]) [address] [place] [address] Anion gap [Moles/Vol] 14 mmol/L Normal 7-20 [facility] Comment on above: Performed By: #### L [id number] #### [facility] ([facility]) [address] [place] [address] AST [Catalytic activity/Vol] 42 U/L High 13-39 [facility] Comment on above: Performed By: #### L [id number] #### [facility] ([facility]) [address] [place] [address] Bilirubin [Mass/Vol] 1.3 mg/dL High 0.3-1.0 [facility] Comment on above: Performed By: #### L [id number] #### [facility] ([facility]) [address] [place] [address] Calcium [Mass/Vol] 9.7 mg/dL Normal 8.6-10.3 [facility] Comment on above: Performed By: #### L [id number] #### [facility] [address] [place] [address] Chloride [Moles/Vol] 101 mmol/L Normal 98-107 [facility] Comment on above: Performed By: #### L [id number] #### [facility] ([facility]) [address] [place] [address] CO2 [Moles/Vol] 27 mmol/L Normal 21-31 [facility] Comment on above: Performed By: #### L [id number] #### [facility] ([facility]) [address] [place] [address] Creatinine [Mass/Vol] 0.74 mg/dL Normal 0.60-1.20 [facility] Comment on above: Performed By: #### L [id number] #### [facility] ([facility]) [address] [place] [address] GLOMERULAR FILTRATION RATE ML/MIN/1.73 SQ M.PREDICTED 92.0 mL/min/1.73m*2 Normal >60.0 [facility] Comment on above: Result Comment: The [facility]???s estimated glomerular filtration rate (eGFR) will no longer include consideration of race in its calculation. The National Kidney Foundation???s eGFR Task Force developed new recommendations for the estimation of the glomerular filtration rate in the [place] They recommend immediate implementation of the new equation refit without the race variable in all laboratories because the calculation does not include race. In addition to not including race in the calculation and reporting, it included diversity in its development, and has acceptable performance characteristics and potential consequences that do not disproportionately affect any one group of individuals. Performed By: #### L [id number] #### [facility] ([facility]) [address] [place] [address] Glucose [Mass/Vol] 101 mg/dL High 70-100 [facility] Comment on above: Performed By: #### L [id number] #### [facility] ([facility]) [address] [place] [address] Potassium [Moles/Vol] 3.6 mmol/L Normal 3.5-5.1 [facility] Comment on above: Performed By: #### L [id number] #### [facility] ([facility]) [address] [place] [address] Protein [Mass/Vol] 7.2 g/dL Normal 6.0-8.3 [facility] Comment on above: Performed By: #### L [id number] #### [facility] ([facility]) [address] [place] [address] Sodium [Moles/Vol] 138 mmol/L Normal 136-145 [facility] Comment on above: Performed By: #### L [id number] #### [facility] ([facility]) [address] [place] [address] Urea nitrogen [Mass/Vol] 13 mg/dL Normal 7-25 [facility] Comment on above: Performed By: #### L [id number] #### [facility] ([facility]) [address] [place] [address] UREA NITROGEN/CREATININE (MASS RATIO) IN SER/PLAS 17.6 Normal [facility] Comment on above: Performed By: #### L [id number] #### [facility] ([facility]) [address] [place] [address] CONSULTon 05-06-2023 CONSULT -- Attestation signed by Obey Edmondson MD at 05/06/2023 6:06 PM I personally saw and examined the patient on the same date of service as resident/fellow Luz Elena Duncan. I discussed the findings and therapeutic plan with the resident/fellow Luz Elena Duncan. I agree with the documentation, except for any edits/updates below. Teaching Physician's Revisions: As above Cardiology Consult Note Reason for Consult: Atrial fibrillation, new onset heart failure HPI: Fern Cardoso is a 62 y.o. female With past medical history of hypertension, diabetes, obstructive sleep apnea who was admitted to [facility] with sudden onset shortness of breath. Reports that she woke up suddenly from sleep feeling short of breath. She initially thought that this was a COVID infection. In the ED at [place], she was noted to be in atrial fibrillation with RVR. She was subsequently given Cardizem. She was also started on Eliquis during hospitalization. D-dimer was elevated. CTA chest was negative for pulmonary embolism but was significant for pulmonary vascular congestion. She had an echocardiogram completed that demonstrated an ejection fraction of 40% and severe dilation of left atrium.. Patient was diuresed with IV Lasix with improvement of shortness of breath.had bilateral enlarged left axillary lymph node which are nonspecific. The EKG shows A-fib and left bundle branch block pattern. Patient was transferred to [facility] for further evaluation.Patient denies any history of heart failure. She states she has a family history of coronary artery disease. She denies any current chest pain and shortness of breath. Cardiology ROS: GENERAL: Denies fever, chills, night sweats, weight loss. CARDIOVASCULAR: Denies chest pain, exertional dyspnea, orthopnea/PND, lower extremity edema, palpitations, lightheadedness/dizzin ess, syncope. RESPIRATORY: Denies SOB, coughing, wheezing GI: Denies abdominal pain, nausea/vomiting. PSYCH: Denies anxiety. Past Medical History She has no past medical history on file. Surgical History She has no past surgical history on file. Social History She reports that she has never smoked. She has never used smokeless tobacco. No history on file for alcohol use and drug use. Family History No family history on file. Allergies Penicillins Medications Medications Prior to Admission Medication Sig Dispense Refill Last Dose amitriptyline (Elavil) 25 mg tablet Take by mouth at bedtime. apixaban (Eliquis) 5 mg tablet Take 5 mg by mouth in the morning and at bedtime. at 0814 diclofenac (Voltaren) 75 mg EC tablet Take 75 mg by mouth in the morning and at bedtime. Do not crush, chew, or split. furosemide (Lasix) 20 mg tablet Take by mouth in the morning. losartan (Cozaar) 50 mg tablet Take 100 mg by mouth in the morning. metFORMIN XR (Glucophage-XR) 500 mg 24 hr tablet Take 500 mg by mouth daily with evening meal. Do not crush, chew, or split. metoprolol succinate XL (Toprol-XL) 50 mg 24 hr tablet Take 75 mg by mouth every 12 (twelve) hours. Do not crush or chew. potassium chloride CR (Klor-Con M10) 10 mEq ER tablet Take 10 mEq by mouth in the morning. Do not crush or chew. Last Recorded Vitals Patient Vitals for the past 24 hrs: BP Temp Temp src Pulse Resp SpO2 Height Weight 05/06/23 1251 (!) 133/46 36.6 ???C (97.9 ???F) Temporal 76 20 92 % -- -- 05/06/23 0808 131/56 -- -- -- -- -- -- -- 05/06/23 0807 -- 36.2 ???C (97.2 ???F) Temporal 81 17 96 % -- -- 05/06/23 0432 140/80 36.3 ???C (97.4 ???F) Temporal 79 16 94 % -- (!) 160 kg (352 lb 4.7 oz) 05/06/23 0200 -- -- -- -- -- -- -- (!) 159 kg (349 lb 13.9 oz) 05/06/23 0100 -- -- -- -- -- -- -- 118 kg (260 lb 2.3 oz) 05/06/23 0040 127/70 36.8 ???C (98.3 ???F) Temporal 86 17 91 % -- -- 05/05/23 1950 148/75 36.9 ???C (98.5 ???F) Temporal 83 22 96 % 1.651 m (5' 5 ) -- Physical Examination: GENERAL: AOx3, in no acute distress. Obese HEAD: Atraumatic, normocephalic. EYES: EOMI. NECK: No JVD present. CARDIAC: RRR. No murmur, rubs, or gallops. RESPIRATORY: CTAB, no increased effort of breathing. ABDOMEN: Soft, nontender, nondistended. EXTREMITIES: Trace bilateral lower extremity edema, peripheral pulses are 2+ bilaterally. NEURO: No focal deficits Relevant Lab Results Encounter Date: 05/05/23 ECG 12 lead Result Value Ventricular Rate 81 Atrial Rate 81 OK Interval 208 QRS DURATION 178 QT Interval 442 QTC CALCULATION(BAZETT) 513 P [place] 34 R-[place] -48 T Wave [place] 101 Impression Normal sinus rhythm Left axis deviation Left bundle branch block Abnormal ECG When compared with ECG of 13-FEB-2013 09:22, No significant change was found Confirmed by Jose Luis Cronin ([id number]) on 05/05/2023 9:15:31 PM Lab Results Component Value Date TROPONINI 0. (more content not included)... Normal [facility] HPon 05-06-2023 HP -- Attestation signed by Obey Edmondson MD at 05/06/2023 6:06 PM I personally saw and examined the patient on the same date of service as resident/fellow Luz Elena Duncan. I discussed the findings and therapeutic plan with the resident/fellow Luz Elena Duncan. I agree with the documentation, except for any edits/updates below. Teaching Physician's Revisions: As above Cardiology Consult Note Reason for Consult: Atrial fibrillation, new onset heart failure HPI: Fern Cardoso is a 62 y.o. female With past medical history of hypertension, diabetes, obstructive sleep apnea who was admitted to [facility] with sudden onset shortness of breath. Reports that she woke up suddenly from sleep feeling short of breath. She initially thought that this was a COVID infection. In the ED at [place], she was noted to be in atrial fibrillation with RVR. She was subsequently given Cardizem. She was also started on Eliquis during hospitalization. D-dimer was elevated. CTA chest was negative for pulmonary embolism but was significant for pulmonary vascular congestion. She had an echocardiogram completed that demonstrated an ejection fraction of 40% and severe dilation of left atrium.. Patient was diuresed with IV Lasix with improvement of shortness of breath.had bilateral enlarged left axillary lymph node which are nonspecific. The EKG shows A-fib and left bundle branch block pattern. Patient was transferred to [facility] for further evaluation.Patient denies any history of heart failure. She states she has a family history of coronary artery disease. She denies any current chest pain and shortness of breath. Cardiology ROS: GENERAL: Denies fever, chills, night sweats, weight loss. CARDIOVASCULAR: Denies chest pain, exertional dyspnea, orthopnea/PND, lower extremity edema, palpitations, lightheadedness/dizzin ess, syncope. RESPIRATORY: Denies SOB, coughing, wheezing GI: Denies abdominal pain, nausea/vomiting. PSYCH: Denies anxiety. Past Medical History She has no past medical history on file. Surgical History She has no past surgical history on file. Social History She reports that she has never smoked. She has never used smokeless tobacco. No history on file for alcohol use and drug use. Family History No family history on file. Allergies Penicillins Medications Medications Prior to Admission Medication Sig Dispense Refill Last Dose amitriptyline (Elavil) 25 mg tablet Take by mouth at bedtime. apixaban (Eliquis) 5 mg tablet Take 5 mg by mouth in the morning and at bedtime. at 0814 diclofenac (Voltaren) 75 mg EC tablet Take 75 mg by mouth in the morning and at bedtime. Do not crush, chew, or split. furosemide (Lasix) 20 mg tablet Take by mouth in the morning. losartan (Cozaar) 50 mg tablet Take 100 mg by mouth in the morning. metFORMIN XR (Glucophage-XR) 500 mg 24 hr tablet Take 500 mg by mouth daily with evening meal. Do not crush, chew, or split. metoprolol succinate XL (Toprol-XL) 50 mg 24 hr tablet Take 75 mg by mouth every 12 (twelve) hours. Do not crush or chew. potassium chloride CR (Klor-Con M10) 10 mEq ER tablet Take 10 mEq by mouth in the morning. Do not crush or chew. Last Recorded Vitals Patient Vitals for the past 24 hrs: BP Temp Temp src Pulse Resp SpO2 Height Weight 05/06/23 1251 (!) 133/46 36.6 ???C (97.9 ???F) Temporal 76 20 92 % -- -- 05/06/23 0808 131/56 -- -- -- -- -- -- -- 05/06/23 0807 -- 36.2 ???C (97.2 ???F) Temporal 81 17 96 % -- -- 05/06/23 0432 140/80 36.3 ???C (97.4 ???F) Temporal 79 16 94 % -- (!) 160 kg (352 lb 4.7 oz) 05/06/23 0200 -- -- -- -- -- -- -- (!) 159 kg (349 lb 13.9 oz) 05/06/23 0100 -- -- -- -- -- -- -- 118 kg (260 lb 2.3 oz) 05/06/23 0040 127/70 36.8 ???C (98.3 ???F) Temporal 86 17 91 % -- -- 05/05/23 1950 148/75 36.9 ???C (98.5 ???F) Temporal 83 22 96 % 1.651 m (5' 5 ) -- Physical Examination: GENERAL: AOx3, in no acute distress. Obese HEAD: Atraumatic, normocephalic. EYES: EOMI. NECK: No JVD present. CARDIAC: RRR. No murmur, rubs, or gallops. RESPIRATORY: CTAB, no increased effort of breathing. ABDOMEN: Soft, nontender, nondistended. EXTREMITIES: Trace bilateral lower extremity edema, peripheral pulses are 2+ bilaterally. NEURO: No focal deficits Relevant Lab Results Encounter Date: 05/05/23 ECG 12 lead Result Value Ventricular Rate 81 Atrial Rate 81 OK Interval 208 QRS DURATION 178 QT Interval 442 QTC CALCULATION(BAZETT) 513 P [place] 34 R-[place] -48 T Wave [place] 101 Impression Normal sinus rhythm Left axis deviation Left bundle branch block Abnormal ECG When compared with ECG of 13-FEB-2013 09:22, No significant change was found Confirmed by Jose Luis Cronin ([id number]) on 05/05/2023 9:15:31 PM Lab Results Component Value Date TROPONINI 0. (more content not included)... Normal [facility] MAGNESIUMon 05-06-2023 Magnesium [Mass/Vol] 1.5 mg/dL Low 1.9-2.7 [facility] Comment on above: Performed By: #### L [id number] ####[facility] ([facility])[address] [place] [address] PLATELET COUNTon 05-06-2023 PLATELETS (10*3/UL) IN BLOOD AUTOMATED COUNT 121 10*3/uL Low 150-400 [facility] Comment on above: Performed By: #### L [id number] #### [facility] ([facility]) [address] [place] [address] POCT GLUCOSE METER UNSOLICIT ED RESULTSon 05-06-2023 Glucose [Mass/Vol] 105 mg/dL Normal 70-105 [facility] Comment on above: Order Comment: Waive d Testing in the ED is performed under the ED CLIA certificate #[id number]. Result Comment: [email or web address] Performed By: #### L [id number] ####[facility] ([facility])[address] [place] [address] Glucose [Mass/Vol] 116 mg/dL High 70-105 [facility] Comment on above: Order Comment: Waive d Testing in the ED is performed under the ED CLIA certificate #[id number]. Result Comment: [email or web address] Performed By: #### L [id number] #### [facility] ([facility]) [address] [place] [address] Glucose [Mass/Vol] 131 mg/dL High 70-105 [facility] Comment on above: Order Comment: Waive d Testing in the ED is performed under the ED CLIA certificate #[id number]. Result Comment: [email or web address] Performed By: #### L [id number] #### [facility] ([facility]) [address] [place] [address] Glucose [Mass/Vol] 100 mg/dL Normal 70-105 [facility] Comment on above: Order Comment: Waive d Testing in the ED is performed under the ED CLIA certificate #[id number]. Result Comment: [email or web address] Performed By: #### L [id number] #### [facility] ([facility]) [address] [place] [address] T4, FREEon 05-06-2023 THYROXINE (T4) FREE (NG/DL) IN SER/PLAS 1.08 ng/dL Normal 0.71-1.85 [facility] Comment on above: Performed By: #### L [id number] ####[facility] ([facility])[address] [place] [address] TROPONIN Ion 05-06-2023 Troponin I.cardiac [Mass/Vol] 0.01 ng/mL Normal 0.00-0.04 [facility] Comment on above: Performed By: #### L [id number] #### [facility] ([facility]) [address] [place] [address] TSH3 REFLEX TO FT4on 024 THYROTROPIN (MIU/L) IN SER/PLAS BY DETECTION LIMIT <= 0.05 MIU/L 5.84 mIU/L High 0.34-5.60 [facility] Comment on above: Performed By: #### L [id number] #### [facility] ([facility]) [address] [place] [address] 30on 05-05-2023 30 The patient is Moderately Stable - Low risk of patient condition declining or worsening The patient's goals for the shift include comfort The clinical goals for the shift include VSS Problem: Pain - Adult Goal: Verbalizes/displays adequate comfort level or baseline comfort level Outcome: Progressing Flowsheets (Taken 05/05/20232124) Verbalizes/displays adequate comfort level or baseline comfort level: Encourage patient to monitor pain and request assistance Assess pain using appropriate pain scale Administer analgesics based on type and severity of pain and evaluate response Implement non-pharmacological measures as appropriate and evaluate response Consider cultural and social influences on pain and pain management Notify Licensed Independent Practitioner if interventions unsuccessful or patient reports new pain Problem: Safety - Adult Goal: Free from fall injury Outcome: Progressing Flowsheets (Taken 05/05/20232124) Free from fall injury: Assess patient frequently for physical needs Identify cognitive and physical deficits and behaviors that affect risk of falls [facility] fall precautions as indicated by assessment Educate patient/family on patient safety, including physical limitations Instruct patient to call for assistance with activity based on assessment Modify environment to reduce risk of injury Consider OT/PT consult to assist with strengthening/mobility Problem: Discharge Planning Goal: Discharge to home or other facility with appropriate resources Outcome: Progressing Flowsheets (Taken 05/05/20232124) Discharge to home or other facility with appropriate resources: Identify barriers to discharge with patient and caregiver Arrange for needed discharge resources and transportation as appropriate Identify discharge learning needs (meds, wound care, etc) Arrange for interpreters to assist at discharge as needed Refer to discharge planning if patient needs post-hospital services based on physician order or complex needs related to functional status, cognitive ability or social support system Problem: Chronic Conditions and Co-morbidities Goal: Patient's chronic conditions and co-morbidity symptoms are monitored and maintained or improved Outcome: Progressing Flowsheets (Taken 05/05/20232124) Care Plan - Patient's Chronic Conditions and Co-Morbidity Symptoms are Monitored and Maintained or Improved: Monitor and assess patient's chronic conditions and comorbid symptoms for stability, deterioration, or improvement Collaborate with multidisciplinary team to address chronic and comorbid conditions and prevent exacerbation or deterioration Update acute care plan with appropriate goals if chronic or comorbid symptoms are exacerbated and prevent overall improvement and discharge Normal [facility] B-TYPE NATRIURETIC PEPTIDEon 05-05-2023 Natriuretic peptide B (Bld) [Mass/Vol] 97 pg/mL Normal 0-100 [facility] Comment on above: Performed By: #### L [id number] #### [facility] ([facility]) [address] [place] [address] BASIC METABOLIC PANELon 04-19 Anion gap [Moles/Vol] 11 mmol/L Normal 7-20 [facility] Comment on above: Performed By: #### L [id number] ####[facility] ([facility])[address] [place] [address] Calcium [Mass/Vol] 9.5 mg/dL Normal 8.6-10.3 [facility] Comment on above: Performed By: #### L [id number] ####[facility] ([facility])[address] [place] [address] Chloride [Moles/Vol] 101 mmol/L Normal 98-107 [facility] Comment on above: Performed By: #### L [id number] ####[facility] ([facility])[address] [place] [address] CO2 [Moles/Vol] 30 mmol/L Normal 21-31 [facility] Comment on above: Performed By: #### L [id number] ####[facility] ([facility])[address] [place] [address] Creatinine [Mass/Vol] 0.69 mg/dL Normal 0.60-1.20 [facility] Comment on above: Performed By: #### L [id number] ####[facility] ([facility])[address] [place] [address] GLOMERULAR FILTRATION RATE ML/MIN/1.73 SQ M.PREDICTED 98.7 mL/min/1.73m*2 Normal >60.0 [facility] Comment on above: Result Comment: The [facility]???s estimated glomerular filtration rate (eGFR) will no longer include consideration of race in its calculation. The National Kidney Foundation???s eGFR Task Force developed new recommendations for the estimation of the glomerular filtration rate in the [place] They recommend immediate implementation of the new equation refit without the race variable in all laboratories because the calculation does not include race. In addition to not including race in the calculation and reporting, it included diversity in its development, and has acceptable performance characteristics and potential consequences that do not disproportionately affect any one group of individuals. Performed By: #### L [id number] ####[facility] ([facility])[address] [place] [address] Glucose [Mass/Vol] 90 mg/dL Normal 70-100 [facility] Comment on above: Performed By: #### L [id number] ####[facility] ([facility])[address] [place] [address] Potassium [Moles/Vol] 3.8 mmol/L Normal 3.5-5.1 [facility] Comment on above: Performed By: #### L [id number] ####[facility] ([facility])[address] [place] [address] Sodium [Moles/Vol] 138 mmol/L Normal 136-145 [facility] Comment on above: Performed By: #### L [id number] ####[facility] ([facility])[address] [place] [address] Urea nitrogen [Mass/Vol] 13 mg/dL Normal 7-25 [facility] Comment on above: Performed By: #### L [id number] ####[facility] ([facility])[address] [place] [address] UREA NITROGEN/CREATININE (MASS RATIO) IN SER/PLAS 18.8 Normal [facility] Comment on above: Performed By: #### L [id number] ####[facility] ([facility])[address] [place] [address] MAGNESIUMon 05-05-2023 Magnesium [Mass/Vol] 1.4 mg/dL Low 1.9-2.7 [facility] Comment on above: Performed By: #### L [id number] ####[facility] ([facility])[address] [place] [address] POCT GLUCOSE METER UNSOLICIT ED RESULTSon 05-05-2023 Glucose [Mass/Vol] 87 mg/dL Normal 70-105 [facility] Comment on above: Order Comment: Waive d Testing in the ED is performed under the ED CLIA certificate #[id number]. Result Comment: [email or web address] Performed By: #### L [id number] #### [facility] ([facility]) [address] [place] [address] TROPONIN Ion 05-05-2023 Troponin I.cardiac [Mass/Vol] 0.03 ng/mL Normal 0.00-0.04 [facility] Comment on above: Performed By: #### L [id number] ####[facility] ([facility])[address] [place] [address] CBC AUTO DIFFon 02-21-2022 BASO # 0.0 103/ul Normal 0.0-0.1 [facility] Comment on above: Performed By: #### C BC #### [facility] [address] [address] [address] Rivas Zhao Basophils/100 WBC (Bld) 0.7 % Normal 0.2-2.0 [facility] Comment on above: Performed By: #### C BC #### [facility] [address] [place] [address] Dr. Rivas Zhao EO # 0.2 103/ul Normal 0.0-0.7 [facility] Comment on above: Performed By: #### C BC #### [facility] [address] [place] [address] Dr. Rivas Zhao Eosinophils/100 WBC (Bld) 3.4 % Normal 0.9-7.0 [facility] Comment on above: Performed By: #### C BC #### [facility] [address] [place] [address] Dr. Rivas Zhao Erythrocyte distribution width (RBC) [Ratio] 14.8 % Normal 11.0-15.0 [facility] Comment on above: Performed By: #### C BC #### [facility] [address] [place] [address] Dr. Rivas Zhao Hematocrit (Bld) [Volume fraction] 38.4 % Normal 36.0-48.0 [facility] Comment on above: Performed By: #### C BC #### [facility] [address] [place] [address] Dr. Rivas Zhao Hemoglobin (Bld) [Mass/Vol] 12.7 g/dL Normal 12.0-16.0 [facility] Comment on above: Performed By: #### C BC #### [facility] [address] [place] [address] Dr. Rivas Zhao IG # 0.01 10e3/ul Normal 0.00-0.03 [facility] Comment on above: Performed By: #### C BC #### [facility] [address] [place] [address] Dr. Rivas Zhao IG % 0.2 % Normal 0.0-0.5 [facility] Comment on above: Performed By: #### C BC #### [facility] [address] [place] [address] Dr. Rivas Zhao LYMPH # 1.5 103/ul Normal 1.2-3.[address] [facility] Comment on above: Performed By: #### C BC #### [facility] [address] [place] [address] Dr. Rivas Zhao Lymphocytes/100 WBC (Bld) 34.9 % Normal 20.5-60.0 [facility] Comment on above: Performed By: #### C BC #### [facility] [address] [place] [address] Dr. Rivas Zhao MANUAL DIFF REQ NO Normal [facility] Comment on above: Performed By: #### C BC #### [facility] [address] [place] [address] Dr. Rivas Zhao MCH (RBC) [Entitic mass] 30.2 pg Normal 26.7-34.0 [facility] Comment on above: Performed By: #### C BC #### [facility] [address] [place] [address] Dr. Rivas Zhao MCHC (RBC) [Mass/Vol] 33.1 g/dL Normal 29.9-35.2 [facility] Comment on above: Performed By: #### C BC #### [facility] [address] [place] [address] Dr. Rivas Zhao MCV (RBC) [Entitic vol] 91.2 fL Normal 81.0-99.[address] [facility] Comment on above: Performed By: #### C BC #### [facility] [address] [place] [address] Dr. Rivas Zhao MONO # 0.3 103/ul Normal 0.3-0.8 [facility] Comment on above: Performed By: #### C BC #### [facility] [address] [place] [address] Dr. Rivas Zhao Monocytes/100 WBC (Bld) 5.9 % Normal 1.7-12.0 [facility] Comment on above: Performed By: #### C BC #### [facility] [address] [place] [address] Dr. Rivas Zhao NEUT # 2.4 103/ul Normal 1.4-6.5 [facility] Comment on above: Performed By: #### C BC #### [facility] [address] [place] [address] Dr. Rivas Zhao Neutrophils/100 WBC (Bld) 54.9 % Normal 43.0-75.0 [facility] Comment on above: Performed By: #### C BC #### [facility] [address] [place] [address] Dr. Rivas Zhao Platelet mean volume (Bld) [Entitic vol] 11.9 fL Normal 9.5-13.5 [facility] Comment on above: Performed By: #### C BC #### [facility] [address] [place] [address] Dr. Rivas Zhao PLT 107 103/ul Critically low 150-450 [facility] Comment on above: Performed By: #### C BC #### [facility] [address] [place] [address] Dr. Rivas Zhao RBC 4.21 106/ul Normal 4.20-5.40 [facility] Comment on above: Performed By: #### C BC #### [facility] [address] [place] [address] Dr. Rivas Zhao WBC 4.4 103/ul Normal 4.0-11.0 [facility] Comment on above: Performed By: #### C BC #### [facility] [address] [place] [address] Dr. Rivas Zhao GLYCOHEMOGLOBIN A1Con 2021 ADA RECOMMENDATION SEE BELOW Normal [facility] Comment on above: Result Comment: ADA RECOMMENDED LIMIT 4.0 - 6.0 ADA THERAPEUTIC TARGET < 7.0 ACTION SUGGESTED > 7.0 Performed By: #### A 1C #### [facility] [address] [address] [address] Rivas Zhao Glucose [Mass/Vol] 117 mg/dL Normal [facility] Comment on above: Performed By: #### A 1C #### [facility] [address] [address] [address] Rivas Zhao HbA1c (Bld) [Mass fraction] 5.7 % Normal 4.5-6.2 [facility] Comment on above: Performed By: #### A 1C #### [facility] [address] [place] [address] Dr. Rivas Zhao LIPID PROFILEon 02-21-2022 CHOL-HDL RATIO NORM SEE BELOW Normal [facility] Comment on above: Result Comment: 3.3 - 4.4 LOW RISK 4.4 - 7.1 AVERAGE RISK 7.1 - 11.0 MODERATE RISK >11.0 HIGH RISK Performed By: #### L IPID, CMP #### [facility] [address] [place] [address] Dr. Rivas Zhao Cholesterol [Mass/Vol] 160 mg/dL Normal <=200 [facility] Comment on above: Performed By: #### L IPID, CMP #### [facility] [address] [place] [address] Dr. Rivas Zhao Cholesterol in HDL [Mass/Vol] 49 mg/dL Normal 40-60 [facility] Comment on above: Performed By: #### L IPID, CMP #### [facility] [address] [place] [address] Dr. Rivas Zhao Cholesterol in LDL [Mass/Vol] 96.0 mg/dL Normal [facility] Comment on above: Performed By: #### L IPID, CMP #### [facility] [address] [place] [address] Dr. Rivas Zhao Cholesterol.total/Ch olesterol in HDL [Mass ratio] 3.3 {ratio} Normal [facility] Comment on above: Performed By: #### L IPID, CMP #### [facility] [address] [place] [address] Dr. Rivas Zhao HDL NORMAL > or = 60 mg/dl - LO W CARDIOVASCULAR RISK <40 mg/dl - HIGH CARDIOVASCULAR RISK Normal [facility] Comment on above: Performed By: #### L IPID, CMP #### [facility] [address] [address] [address] Rivas Zhao LDL CALC NORMAL SEE BELOW Normal [facility] Comment on above: Result Comment: <100 mg/dl OPTIMAL 100 - 129 mg/dl NEAR OR ABOVE OPTIMAL 130 - 159 mg/dl BORDERLINE HIGH 160 - 189 mg/dl HIGH >190 mg/dl VERY HIGH Performed By: #### L IPID, CMP #### [facility] [address] [address] [address] Rivas Zhao Triglyceride [Mass/Vol] 75 mg/dL Normal <=150 [facility] Comment on above: Performed By: #### L IPID, CMP #### [facility] [address] [place] [address] Dr. Rivas Zhao VLDL CALC 15.0 mg/dL Normal [facility] Comment on above: Performed By: #### L IPID, CMP #### [facility] [address] [address] [address] Rivas Zhao PROF 14(COMP METB)on 022 Albumin [Mass/Vol] 3.0 g/dL Critically low 3.4-5.0 [facility] Comment on above: Performed By: #### L IPID, CMP #### [facility] [address] [address] [address] Rivas Zhao Albumin/Globulin [Mass ratio] 0.6 {ratio} Normal [facility] Comment on above: Performed By: #### L IPID, CMP #### [facility] [address] [address] [address] Rivas Zhao ALP [Catalytic activity/Vol] 74 U/L Normal 46-116 [facility] Comment on above: Performed By: #### L IPID, CMP #### [facility] [address] [address] [address] Rivas Zhao ALT [Catalytic activity/Vol] 59 U/L Normal 14-59 [facility] Comment on above: Performed By: #### L IPID, CMP #### [facility] [address] [address] [address] Rivas Zhao Anion gap [Moles/Vol] 9.2 mmol/L Normal [facility] Comment on above: Performed By: #### L IPID, CMP #### [facility] [address] [address] [address] Rivas Zhao AST [Catalytic activity/Vol] 65 U/L Critically high 15-37 [facility] Comment on above: Performed By: #### L IPID, CMP #### [facility] [address] [address] [address] Rivas Zhao Bilirubin [Mass/Vol] 1.1 mg/dL Critically high 0.2-1.0 [facility] Comment on above: Performed By: #### L IPID, CMP #### [facility] [address] [address] [address] Rivas Zhao Calcium [Mass/Vol] 8.8 mg/dL Normal 8.5-10.1 [facility] Comment on above: Performed By: #### L IPID, CMP #### [facility] [address] [address] [address] Rivas Zhao Chloride [Moles/Vol] 102 mmol/L Normal 98-107 [facility] Comment on above: Performed By: #### L IPID, CMP #### [facility] [address] [address] [address] Rivas Zhao CO2 [Moles/Vol] 32.5 mmol/L Critically high 21.0-32.0 [facility] Comment on above: Performed By: #### L IPID, CMP #### [facility] [address] [address] [address] Rivas Zhao Creatinine [Mass/Vol] 0.76 mg/dL Normal 0.55-1.02 [facility] Comment on above: Performed By: #### L IPID, CMP #### [facility] [address] [address] [address] Rivas Zhao EGFR-AF MACANESE >60 Normal >=60 [facility] Comment on above: Performed By: #### L IPID, CMP #### [facility] [address] [address] [address] Rivas Zhao EGFR-NON AF MACANESE >60 Normal >=60 [facility] Comment on above: Performed By: #### L IPID, CMP #### [facility] [address] [address] [address] Rivas Zhao Globulin (S) [Mass/Vol] 4.7 g/dL Normal [facility] Comment on above: Performed By: #### L IPID, CMP #### [facility] [address] [address] [address] Rivas Zhao Glucose [Mass/Vol] 109 mg/dL Critically high 74-106 [facility] Comment on above: Performed By: #### L IPID, CMP #### [facility] [address] [address] [address] Rivas Zhao Potassium [Moles/Vol] 3.7 mmol/L Normal 3.5-5.1 [facility] Comment on above: Performed By: #### L IPID, CMP #### [facility] [address] [address] [address] Rivas Zhao Protein [Mass/Vol] 7.7 g/dL Normal 6.4-8.2 [facility] Comment on above: Performed By: #### L IPID, CMP #### [facility] [address] [address] [address] Rivas Zhao Sodium [Moles/Vol] 140 mmol/L Normal 136-145 [facility] Comment on above: Performed By: #### L IPID, CMP #### [facility] [address] [address] [address] Rivas Zhao Urea nitrogen [Mass/Vol] 12.0 mg/dL Normal 7.0-18.0 [facility] Comment on above: Performed By: #### L IPID, CMP #### [facility] [address] [address] [address] Rivas Zhao Urea nitrogen/Creatinine [Mass ratio] 15.8 mg/mg Normal [facility] Comment on above: Performed By: #### L IPID, CMP #### [facility] [address] [address] [address] Rivas Zhao Patient Correspondenceon Patient Correspondence [id number]#1.00 CD:127 Normal [facility] Physician Referral [id number]#1.00 CD:127 Normal [facility] Patient Correspondence [id number]#1.00 CD:127 Normal [facility] Physician Referralon 022 Physician Referral [id number]#1.0 0CD:127 Normal [facility] MG MAMM DIAGNOSTIC 3D GREG CA Don 05-16-2021 MG MAMM DIAGNOSTIC 3D GREG CAD Patient: FERN CARDOSO Exam Date: 05/16/2021 : 1960 Gender:F Ordering : DR SINDI BENJAMIN M.D. Admission #: [id number] Family : Order #: [id number] CLICK HERE TO VIEW EXAM RADIOLOGY REPORT PROCEDURE: MAMMOGRAM DIAGNOSTIC 3D BILATERAL CAD, 05/16/2021, 14:00 ULTRASOUND BREAST BILATERAL LIMITED, 05/16/2021, 14:53 COMPARISON: US BREAST GREG LIMITED, 11/06/2020. MG MAMM SCREEN GREG W CAD, 03/14/2019. MG MAMM RT DIAG W CAD, 09/29/2019. MG MAMM SCREEN 3D GREG CAD, 10/24/2020. MG MAMM DX GREG 3D FU CAD, 11/06/2020. INDICATIONS: Abnormal findings on diagnostic imaging of breast Calculator Name NCI Breast Cancer Risk Assessment Tool 5 Year Breast Cancer Risk 3.60% Lifetime Breast Cancer Risk 18.50% Personal Breast Cancer No Personal Ovarian Cancer No Treatments EXCISION OF SITE Family Cancers Mother with breast cancer at age 61; Aunt-maternal with breast cancer at age 58. LOCATION: [facility] BREAST COMPOSITION: Scattered areas fibroglandular density. FINDINGS: DIAGNOSTIC CATEGORY 2--BENIGN FINDING: RIGHT BREAST: No significant suspicious finding. Scattered benign-appearing nodules are present. Scattered benign-appearing calcifications are present. No significant change has occurred. Ultrasound evaluation demonstrates stable appearance of visible prior nodules. LEFT BREAST: No significant suspicious finding. Scattered benign-appearing nodules are present. Scattered benign-appearing calcifications are present. No significant change has occurred. Ultrasound evaluation demonstrates stable appearance of visible prior nodules/cysts. RECOMMENDATIONS: ROUTINE MAMMOGRAM AND CLINICAL EVALUATION IN 12 MONTHS. PLEASE NOTE: A NORMAL MAMMOGRAM DOES NOT EXCLUDE THE POSSIBILITY OF BREAST CANCER. A CLINICALLY SUSPICIOUS PALPABLE LUMP SHOULD BE BIOPSIED. Dictated by: Calin Contreras M.D. on 05/16/2021 at 15:24 Approved by: Calin Contreras M.D. on 05/16/2021 at 15:27 Normal [facility] US BREAST GREG LIMITEDon 04-20 US BREAST GREG LIMITED Patient: FERN CARDOSO Exam Date: 05/16/2021 : 1960 Gender:F Ordering : DR SINDI BENJAMIN M.D. Admission #: [id number] Family : Order #: [id number] CLICK HERE TO VIEW EXAM RADIOLOGY REPORT PROCEDURE: MAMMOGRAM DIAGNOSTIC 3D BILATERAL CAD, 05/16/2021, 14:00 ULTRASOUND BREAST BILATERAL LIMITED, 05/16/2021, 14:53 COMPARISON: US BREAST GREG LIMITED, 11/06/2020. MG MAMM SCREEN GREG W CAD, 03/14/2019. MG MAMM RT DIAG W CAD, 09/29/2019. MG MAMM SCREEN 3D GREG CAD, 10/24/2020. MG MAMM DX GREG 3D FU CAD, 11/06/2020. INDICATIONS: Abnormal findings on diagnostic imaging of breast Calculator Name NCI Breast Cancer Risk Assessment Tool 5 Year Breast Cancer Risk 3.60% Lifetime Breast Cancer Risk 18.50% Personal Breast Cancer No Personal Ovarian Cancer No Treatments EXCISION OF SITE Family Cancers Mother with breast cancer at age 61; Aunt-maternal with breast cancer at age 58. LOCATION: [facility] BREAST COMPOSITION: Scattered areas fibroglandular density. FINDINGS: DIAGNOSTIC CATEGORY 2--BENIGN FINDING: RIGHT BREAST: No significant suspicious finding. Scattered benign-appearing nodules are present. Scattered benign-appearing calcifications are present. No significant change has occurred. Ultrasound evaluation demonstrates stable appearance of visible prior nodules. LEFT BREAST: No significant suspicious finding. Scattered benign-appearing nodules are present. Scattered benign-appearing calcifications are present. No significant change has occurred. Ultrasound evaluation demonstrates stable appearance of visible prior nodules/cysts. RECOMMENDATIONS: ROUTINE MAMMOGRAM AND CLINICAL EVALUATION IN 12 MONTHS. PLEASE NOTE: A NORMAL MAMMOGRAM DOES NOT EXCLUDE THE POSSIBILITY OF BREAST CANCER. A CLINICALLY SUSPICIOUS PALPABLE LUMP SHOULD BE BIOPSIED. Dictated by: Calin Contreras M.D. on 05/16/2021 at 15:24 Approved by: Calin Contreras M.D. on 05/16/2021 at 15:27 Normal [facility] TRANSGLUTAMINASE IGAon 04-02 t-Transglutaminase (tTG) IgA <2 Normal 0-[address] [facility] Comment on above: Result Comment: Nega tive 0 - 3 Weak Positive 4 - 10 Positive >10 . Tissue Transglutaminase (tTG) has been identified as the endomysial antigen. Studies have demonstr- ated that endomysial IgA antibodies have over 99% specificity for gluten sensitive enteropathy. Performed By: #### T FRANCESCA #### [facility] [address] [place] [address] Dr. Rivas Zhao CBC AUTO DIFFon 03-31-2021 BASO # 0.1 103/ul Normal 0.0-0.1 [facility] Comment on above: Performed By: #### C BC #### [facility] [address] [place] [address] Dr. Rivas Zhao Basophils/100 WBC (Bld) 0.9 % Normal 0.2-2.[address] [facility] Comment on above: Performed By: #### C BC #### [facility] [address] [place] [address] Dr. Rivas Zhao EO # 0.2 103/ul Normal 0.0-0.[address] [facility] Comment on above: Performed By: #### C BC #### [facility] [address] [place] [address] Dr. Rivas hZao Eosinophils/100 WBC (Bld) 2.3 % Normal 0.9-7.[address] [facility] Comment on above: Performed By: #### C BC #### [facility] [address] [place] [address] Dr. Rivas Zhao Erythrocyte distribution width (RBC) [Ratio] 14.5 % Normal 11.0-15.0 [facility] Comment on above: Performed By: #### C BC #### [facility] [address] [place] [address] Dr. Rivas Zhao Hematocrit (Bld) [Volume fraction] 39.9 % Normal 36.0-48.0 [facility] Comment on above: Performed By: #### C BC #### [facility] [address] [place] [address] Dr. Rivas Zhao Hemoglobin (Bld) [Mass/Vol] 13.1 g/dL Normal 12.0-16.0 [facility] Comment on above: Performed By: #### C BC #### [facility] [address] [place] [address] Dr. Rivas Zhao IG # 0.02 10e3/ul Normal 0.00-0.03 [facility] Comment on above: Performed By: #### C BC #### [facility] [address] [place] [address] Dr. Rivas Zhao IG % 0.3 % Normal 0.0-0.5 [facility] Comment on above: Performed By: #### C BC #### [facility] [address] [place] [address] Dr. Rivas Zhao LYMPH # 2.2 103/ul Normal 1.2-3.8 [facility] Comment on above: Performed By: #### C BC #### [facility] [address] [place] [address] Dr. Rivas Zhao Lymphocytes/100 WBC (Bld) 31.8 % Normal 20.5-60.0 [facility] Comment on above: Performed By: #### C BC #### [facility] [address] [place] [address] Dr. Rivas Zhao MANUAL DIFF REQ NO Normal [facility] Comment on above: Performed By: #### C BC #### [facility] [address] [place] [address] Dr. Rivas Zhao MCH (RBC) [Entitic mass] 30.2 pg Normal 26.7-34.0 [facility] Comment on above: Performed By: #### C BC #### [facility] [address] [place] [address] Dr. Rivas Zhao MCHC (RBC) [Mass/Vol] 32.8 g/dL Normal 29.9-35.[address] [facility] Comment on above: Performed By: #### C BC #### [facility] [address] [place] [address] Dr. Rivas Zhao MCV (RBC) [Entitic vol] 91.9 fL Normal 81.0-99.0 [facility] Comment on above: Performed By: #### C BC #### [facility] [address] [place] [address] Dr. Rivas Zhao MONO # 0.5 103/ul Normal 0.3-0.8 [facility] Comment on above: Performed By: #### C BC #### [facility] [address] [place] [address] Dr. Rivas Zhao Monocytes/100 WBC (Bld) 7.2 % Normal 1.7-12.0 [facility] Comment on above: Performed By: #### C BC #### [facility] [address] [place] [address] Dr. Rivas Zhao NEUT # 4.0 103/ul Normal 1.4-6.[address] [facility] Comment on above: Performed By: #### C BC #### [facility] [address] [place] [address] Dr. Rivas Zhao Neutrophils/100 WBC (Bld) 57.5 % Normal 43.0-75.[address] [facility] Comment on above: Performed By: #### C BC #### [facility] [address] [place] [address] Dr. Rivas Zhao Platelet mean volume (Bld) [Entitic vol] 11.8 fL Normal 9.5-13.[address] [facility] Comment on above: Performed By: #### C BC #### [facility] [address] [place] [address] Dr. Rivas Zhao PLT 139 103/ul Critically low 150-450 [facility] Comment on above: Performed By: #### C BC #### [facility] [address] [place] [address] Dr. Rivas Zhao RBC 4.34 106/ul Normal 4.20-5.40 [facility] Comment on above: Performed By: #### C BC #### [facility] [address] [place] [address] Dr. Rivas Zhao WBC 7.0 103/ul Normal 4.0-11.0 [facility] Comment on above: Performed By: #### C BC #### [facility] [address] [place] [address] Dr. Rivas Zhao LIPASEon 03-31-2021 Lipase [Catalytic activity/Vol] 197.0 U/L Normal 23.0-300.0 [facility] Comment on above: Performed By: #### C MP, LIPA #### [facility] [address] [place] [address] Dr. Rivas Zhao PROF 14(COMP METB)on 021 Albumin [Mass/Vol] 3.6 g/dL Normal 3.5-5.0 [facility] Comment on above: Performed By: #### C MP, LIPA #### [facility] [address] [place] [address] Dr. Rivas Zhao Albumin/Globulin [Mass ratio] 0.9 {ratio} Normal [facility] Comment on above: Performed By: #### C MP, LIPA #### [facility] [address] [place] [address] Dr. Rivas Zhao ALP [Catalytic activity/Vol] 46 U/L Normal 38-126 [facility] [facility] Comment on above: Performed By: #### C MP, LIPA #### [facility] [address] [place] [address] Dr. Rivas Zhao ALT [Catalytic activity/Vol] 77 U/L Critically high 9-52 [facility] Comment on above: Performed By: #### C MP, LIPA #### [facility] [address] [address] [address] Rivas Zhao Anion gap [Moles/Vol] 13.9 mmol/L Normal [facility] Comment on above: Performed By: #### C MP, LIPA #### [facility] [address] [place] [address] Dr. Rivas Zhao AST [Catalytic activity/Vol] 67 U/L Critically high 14-36 [facility] Comment on above: Performed By: #### C MP, LIPA #### [facility] [address] [place] [address] Dr. Rivas Zhao Bilirubin [Mass/Vol] 0.7 mg/dL Normal 0.2-1.3 [facility] Comment on above: Performed By: #### C MP, LIPA #### [facility] [address] [place] [address] Dr. Rivas Zhao Calcium [Mass/Vol] 9.8 mg/dL Normal 8.4-10.2 [facility] Comment on above: Performed By: #### C MP, LIPA #### [facility] [address] [place] [address] Dr. Rivas Zhao Chloride [Moles/Vol] 103 mmol/L Normal 98-107 [facility] Comment on above: Performed By: #### C MP, LIPA #### [facility] [address] [place] [address] Dr. Rivas Zhao CO2 [Moles/Vol] 31.0 mmol/L Critically high 22.0-30.0 [facility] Comment on above: Performed By: #### C MP, LIPA #### [facility] [address] [place] [address] Dr. Rivas Zhao Creatinine [Mass/Vol] 0.95 mg/dL Normal 0.52-1.04 [facility] Comment on above: Performed By: #### C MP, LIPA #### [facility] [address] [place] [address] Dr. Rivas Zhao EGFR-AF MACANESE 60 mL/min/1.73m2 Normal >=60 [facility] Comment on above: Performed By: #### C MP, LIPA #### [facility] [address] [address] [address] Rivas Zhao EGFR-NON AF MACANESE =60 Normal >=60 [facility] Comment on above: Performed By: #### C MP, LIPA #### [facility] [address] [address] [address] Rivas Zhao Globulin (S) [Mass/Vol] 4.2 g/dL Normal [facility] Comment on above: Performed By: #### C MP, LIPA #### [facility] [address] [place] [address] Dr. Rivas Zhao Glucose [Mass/Vol] 95 mg/dL Normal 74-106 [facility] Comment on above: Performed By: #### C MP, LIPA #### [facility] [address] [place] [address] Dr. Rivas Zhao Potassium [Moles/Vol] 3.9 mmol/L Normal 3.4-5.0 [facility] Comment on above: Performed By: #### C MP, LIPA #### [facility] [address] [place] [address] Dr. Rivas Zhao Protein [Mass/Vol] 7.8 g/dL Normal 6.1-8.2 [facility] Comment on above: Performed By: #### C MP, LIPA #### [facility] [address] [place] [address] Dr. Rivas Zhao Sodium [Moles/Vol] 144 mmol/L Normal 137-145 [facility] Comment on above: Performed By: #### C MP, LIPA #### [facility] [address] [place] [address] Dr. Rivas Zhao Urea nitrogen [Mass/Vol] 20.0 mg/dL Critically high 7.0-17.0 [facility] Comment on above: Performed By: #### C MP, LIPA #### [facility] [address] [place] [address] Dr. Rivas Zhao Urea nitrogen/Creatinine [Mass ratio] 21.1 mg/mg Normal [facility] Comment on above: Performed By: #### C SONIA PYLE #### [facility] [address] [place] [address] Dr. Rivas Zhao XR ribs RT min 3V w CXR1V*on 06-09-2020 XR ribs RT min 3V w CXR1V* [facility] [place] [address] [place] [address] XRay Report Signed Patient: Fern Cardoso MR#: [id number] : 1960 Acct:[id number] Age/Sex: 59 / F ADM Date: 06/09/20 Loc: XDUCLY Room: Type: [facility] Attending Dr: Janene Munguia APRN, SALES OFFICE COORDINATOR-C Ordering Provider: Janene Munguia APRN Date of Service: 06/09/20 XR/XR ribs RT min 3V w CXR1V*: Rib pain on right side Copies to: Janene Munguia APRN Chest and right ribs 06/09/2020. CLINICAL DATA: Lower anterior right chest wall pain. No known injury. FINDINGS: A single frontal view of the chest and 4 views of the right ribs were obtained. The cardiac silhouette is enlarged. The lungs demonstrate chronic-appearing interstitial changes. No pulmonary consolidation or collapse is identified. No pneumothorax or pleural effusion is seen. The thoracic spine demonstrates degenerative changes. No right rib fracture is visualized. No bony erosion or destruction is seen. XR/XR ribs RT min 3V w CXR1V* IMPRESSION: Cardiomegaly and chronic-appearing pulmonary interstitial changes. Unremarkable right ribs. Impression dictated by: Que Garcia Jr., M.D.06/09/2020 11:19 AM Dictation Location: [place] [address] Transcribed By: [facility] 06/09/201118 Dictated By: Que Garcia Jr, MD 06/09/201111 Signed By: 06/09/20 111 Normal [facility] Vital Signs Date Time Vital Sign Value Performing Clinician Facility 05-14-2023 09:30-0500 Body height 165.1 cm Sindi Benjamin Other [facility] Other 05-14-2023 09:30-0500 Body mass index (BMI) [Ratio] 57.24 kg/m2 Sindi Benjamin Other [facility] Other 05-14-2023 09:30-0500 Body weight 156.04 kg Sindi Benjamin Other [facility] Other 05-14-2023 09:30-0500 Diastolic blood pressure 69 mm[Hg] Sindi Benjamin Other [facility] Other 05-14-2023 09:30-0500 SaO2% (BldA) [Mass fraction] 97 % Sindi Benjamin Other [facility] Other 05-14-2023 09:30-0500 Systolic blood pressure 105 mm[Hg] Sindi Benjamin Other [facility] Other 03-05-2023 16:00-0500 Body height 165.1 cm Etta Gordon Other [facility] Other 03-05-2023 16:00-0500 Body mass index (BMI) [Ratio] 60.27 kg/m2 Etta Evan Other [facility] Other 03-05-2023 16:00-0500 Body temperature 98.9 [degF] Etta Evan Other [facility] Other 03-05-2023 16:00-0500 Body weight 164.29 kg Etta Evan Other [facility] Other 03-05-2023 16:00-0500 Diastolic blood pressure 77 mm[Hg] Etta Gordon Other [facility] Other 03-05-2023 16:00-0500 Respiratory rate 18 /min Etta Gordon Other [facility] Other 03-05-2023 16:00-0500 SaO2% (BldA) [Mass fraction] 95 % Etta Gordon Other [facility] Other 03-05-2023 16:00-0500 Systolic blood pressure 125 mm[Hg] Etta Gordon Other [facility] Other Encounters Encounter Date Encounter Type Care Provider Facility Start: 06-18-2023 End: 06-18-2023 ambulatory [facility] Start: 06-08-2023 End: 06[facility]08[facility] Start: 05-31-2023 End: 05-31-2023 ambulatory Etta Gordon Other [facility] Other Start: 05-31-2023 Telephone encounter Etta Gordon [facility] Start: 05-21-2023 End: 05-21-2023 ambulatory Sindi Benjamin Other [facility] Other Start: 05-21-2023 Telephone encounter Sindi Benjamin [facility] Start: 05-17-2023 End: 05-17-2023 ambulatory [facility] Start: 05-14-2023 End: 05-14-2023 ambulatory Sindi Benjamin Other [facility] Other Start: 05-14-2023 Office outpatient vi sit 25 minutes Sindi Benjamin [facility] Start: 05-06-2023 Evaluation and management of inpatient [facility] Start: 05-05-2023 Evaluation and management of inpatient [facility] Start: 05-05-2023 End: 05-11-2023 Evaluation and management of inpatient SAMER Jd [facility] Start: 04-30-2023 End: 04-30-2023 ambulatory Sindi Benjamin Other [facility] Other Start: 04-30-2023 Telephone encounter Sindi Benjamin [facility] Start: 04-01-2023 End: 04-01-2023 ambulatory Sindi Benjamin Other [facility] Other Start: 04-01-2023 Telephone encounter Sindi Benjamin [facility] Start: 03-05-2023 End: 03-05-2023 ambulatory Etta Gordon Other [facility] Other Start: 03-05-2023 Office outpatient vi sit 25 minutes Etta Gordon [facility] Start: 02-26-2022 Encounter for genera l adult medical examination without abnormal findings DR SINDI BENJAMIN [facility] Start: 02-21-2022 End: 02-22-[address] SINDI BENJAMIN Facility:[facility] Start: 02-21-2022 End: 02-22-2022 Encounter for general adult medical examination without abnormal findings DR SINDI BENJAMIN Facility:[facility] Start: 01-20-2022 Adult health examination Etta Gordon Other [facility] Other Start: 05-16-2021 End: 05-17-[address] SINDI BENJAMIN Facility:[facility] Start: 03-31-2021 End: 04-01-[address] SINDI BENJAMIN Facility:[facility] Start: 08-18-2018 Patient encounter procedure Hans [facility] Facility:[id number] Procedures Date Procedure Procedure Detail Performing Clinician Start: 08-18-2018 Echocardiography Sudhir Whiteside Start: 06-24-2018 Pre-surgery evaluation Etta Gordon Other Start: 06-25-2015 General examination of patient Etta Augustler Other Start: 02-20-2015 Diabetes mellitus screening Etta Gordon Other Start: 12-03-2014 Screening mammography A aleshia Gordon Other Start: 06-05-2013 History and physical examination, administrative Etta Gordon Other Start: 01-20-2013 Preoperative cardiov ascular examination Etta Gordon Other Laboratory test resu lt abnormal Etta Gordon Other Screening for malign ant neoplasm of breast Etta Gordon Other Payers Date Payer Category Payer Unknown [id number] 1960 Unknown [id number] 1960 Unknown [id number] 1960 Unknown [id number] 1960 Unknown [id number] [id number] 1958 Unknown [id number] Social History Date Type Detail Facility Unknown if ever smoked [facility] Other Sex Assigned At Sex Assigned At Bir th [facility] Other Clinical Notes 03-05-2023 to 06-18-2023 Note Date & Type Note Facility 06-18-2023 Note HTN currently well c ontrolled, also labile 90/57 and may have been Contributing to symptoms this week. Will add midodrine 5 mg tid to regime to prevent hypotension, lightheadedness/dizziness or syncope. [facility] 06-18-2023 Note [facility]- currently w ithout exacerbation Continue GDMT- ASA, coreg, farxiga, losartan, entresot and aldatone Diuretic therapy- bumex 1 mg daily Monitor daily weights, I&O, fluid restriction 1.5-2L/day, renal function and electrolytes [facility] 06-18-2023 Note Continue amiodarone 200 mg daily, and coreg 6.25 mg bid. Will add midodrine 5 mg tid to regime for noted hypotension and symptoms of lightheadedness/dizziness and near syncope. Continue eliquis anticoaogulation- denied any bleeding tendencies [facility] 06-18-2023 Note [facility] C[facility]IOLOGY PROGR ESS NOTE HPI: Fern Cardoso is a 62 y.o. female here for evaluation for shakey feeling HPI 62 yo female presents to clinic for evaluation for feeling shakey recently Known PMH- Chronic HFrEF, A fib/flutter, HTN, DM, RAVI Patient here c/o episode at work this past Wednesday. She walked in and didn't feel right. Says she was very lightheaded and felt near-syncope and her smart watch told her she was in a fib. States that she went home and relaxed and went back into rhythm. States the rest of this week she had occasional dizziness, no near syncope. She is scheduled for atrial flutter ablation and loop monitor insertion next month with Dr. Cronin. Still taking low dose aspirin daily, and Eliquis. Denies chest pain, SOB, LE edema, and bleeding on Eliquis. Review of Systems Cardiovascular: Positive for near-syncope and palpitations. Neurological: Positive for dizziness and light-headedness. All other systems reviewed and are negative. Previous HPI per Dr Cronin HPI: Fern Cardoso is a 62 y.o. year old with past medical history of hypertension diabetes obstructive sleep apnea was admitted to [facility] with shortness of breath and was noted to be in atrial fibrillation with RVR initial evaluation for pulmonary embolism was ruled out with a CTA and echocardiogram showed a drop in EF to 40% with severe dilatation of left atrium there was some concern of whether the strips that showed presence of atrial flutter with 21 conduction with aberrancy. To evaluate the cardiomyopathy patient underwent cardiac cath which showed a normal coronary angiography and right heart cath showed mildly elevated wedge pressures and was started on diuretics. She was noted to be in atrial flutter during hospital stay and was started on amiodarone and converted to sinus rhythm and subsequently discharged Visit Vitals BP 90/57 (BP Location: Right arm, Patient Position: Sitting) Pulse 76 Ht 1.651 m (5' 5 ) Wt (!) 152 kg (334 lb) SpO2 93% BMI 55.58 kg/m??? Smoking Status Never BSA 2.64 m??? Allergies Allergen Reactions Penicillins Hives Medications: Current Outpatient Medications on File Prior to Visit Medication Sig Dispense Refill amiodarone (Pacerone) 200 mg tablet Take 1 tablet (200 mg) by mouth with breakfast. Do not start before May 25, 2023. 90 tablet 3 amitriptyline (Elavil) 25 mg tablet Take by mouth at bedtime. apixaban (Eliquis) 5 mg tablet Take 1 tablet (5 mg) by mouth in the morning and at bedtime. 180 tablet 3 aspirin 81 mg chewable tablet Chew 1 tablet (81 mg) with breakfast for 30 doses. Do not start before May 12, 2023. 30 tablet 0 bumetanide (Bumex) 1 mg tablet Take 1 tablet (1 mg) by mouth in the morning. 90 tablet 3 carvedilol (Coreg) 6.25 mg tablet Take 1 tablet (6.25 mg) by mouth with breakfast and with evening meal. 180 tablet 3 dapagliflozin propanediol (Farxiga) 10 mg Take 1 tablet (10 mg) by mouth once daily as directed. 90 tablet 3 diclofenac (Voltaren) 75 mg EC tablet Take 75 mg by mouth in the morning and at bedtime. Do not crush, chew, or split. losartan (Cozaar) 25 mg tablet Take 1 tablet (25 mg) by mouth in the morning. 90 tablet 3 magnesium oxide (Mag-Ox) 400 mg (241.3 mg magnesium) tablet Take 1 tablet (400 mg) by mouth in the morning and at bedtime. 180 tablet 3 metFORMIN XR (Glucophage-XR) 500 mg 24 hr tablet Take 500 mg by mouth daily with evening meal. Do not crush, chew, or split. sacubitril-valsartan (Entresto) 24-26 mg tablet Take 1 tablet by mouth in the morning and at bedtime. 180 tablet 3 spironolactone (Aldactone) 25 mg tablet Take 1 tablet (25 mg) by mouth once daily as directed. 90 tablet 3 [DISCONTINUED] amiodarone (Pacerone) 200 mg tablet Take 1 tablet (200 mg) by mouth with breakfast and with evening meal for 14 doses. Do not start before May 18, 2023. 14 tablet 0 [DISCONTINUED] amiodarone (Pacerone) 400 mg tablet Take 1 tablet (400 mg) by mouth with breakfast and with evening meal for 13 doses. 13 tablet 0 No current facility-administered medications on file prior to visit. Physical Exam: Constitutional: Appearance: Normal appearance. Without apparent distress, obese HENT: Head: Normocephalic and atraumatic. Nose: Nose normal. Mouth/Throat: Mouth: Mucous membranes are moist. Eyes: Extraocular Movements: Extraocular movements intact. Conjunctiva/sclera: Conjunctivae normal. Neck: Vascular: No JVD. Cardiovascular: Rate and Rhythm: Normal rate and regular rhythm. Pulses: Dorsalis pedis pulses are 3 on the right side and 3on the left side. Posterior tibial pulses are 3 on the right side and 3 on the left side. Heart sounds: Normal heart sounds, S1 normal and S2 normal. Pulmonary: Effort: Pulmonary effort is normal. Breath sounds: Normal breath sounds. Abdominal: General: Bowel sounds are normal. Palpations: Abdomen is soft. Musculoskeletal: General: N (more content not included)... [facility] 06-18-2023 Note Patient here c/o epi sode at work this past Wednesday. She walked in and didn't feel right. Says she was very lightheaded and felt near-syncope. She is scheduled for atrial flutter ablation and loop monitor insertion next month with Dr. Cronin. Still taking low dose aspirin daily, and Eliquis. Denies chest pain, SOB, LE edema, and bleeding on Eliquis. Review of Systems Cardiovascular: Positive for near-syncope and palpitations. Neurological: Positive for dizziness and light-headedness. All other systems reviewed and are negative. [facility] 06-08-2023 Note [facility] Electrophysiology Consult Note Reason for visit: Afib HPI: Fern Cardoso is a 62 y.o. year old with past medical history of hypertension diabetes obstructive sleep apnea was admitted to [facility] with shortness of breath and was noted to be in atrial fibrillation with RVR initial evaluation for pulmonary embolism was ruled out with a CTA and echocardiogram showed a drop in EF to 40% with severe dilatation of left atrium there was some concern of whether the strips that showed presence of atrial flutter with 21 conduction with aberrancy. To evaluate the cardiomyopathy patient underwent cardiac cath which showed a normal coronary angiography and right heart cath showed mildly elevated wedge pressures and was started on diuretics. She was noted to be in atrial flutter during hospital stay and was started on amiodarone and converted to sinus rhythm and subsequently discharged PMH: Past Medical History: Diagnosis Date Abnormal ECG Arrhythmia Atrial fibrillation (CMS/HCC) CHF (congestive heart failure) (CMS/HCC) Diabetes mellitus (CMS/HCC) Hypertension PSH: Past Surgical History: Procedure Laterality Date CARDIAC CATHETERIZATION SECTION, CLASSIC REPLACEMENT TOTAL KNEE ONCOLOGIC SH: Social Determinants of Health Tobacco Use: Low Risk (05/17/2023) Patient History Smoking Tobacco Use: Never Smokeless Tobacco Use: Never Passive Exposure: Not on file Alcohol Use: Not on file Financial Resource Strain: Low Risk (05/05/2023) Overall Financial Resource Strain (CARDIA) Difficulty of Paying Living Expenses: Not hard at all Food Insecurity: Not on file (05/05/2023) Transportation Needs: Not on file (05/05/2023) Physical Activity: Not on file Stress: Not on file Social Connections: Not on file Intimate Partner Violence: Not on file (05/05/2023) Depression: Not on file Housing Stability: Not on file (05/05/2023) Utilities: Not At Risk (05/05/2023) [facility] Utilities Threatened with loss of utilities: No Allergies: Allergies Allergen Reactions Penicillins Hives Weight: 152kg Visit Vitals BP 132/82 (BP Location: Left arm, Patient Position: Sitting) Pulse 80 Ht 1.651 m (5' 5 ) Wt (!) 152 kg (334 lb) SpO2 98% BMI 55.58 kg/m??? Smoking Status Never BSA 2.64 m??? Meds: Current Outpatient Medications on File Prior to Visit Medication Sig Dispense Refill amiodarone (Pacerone) 200 mg tablet Take 1 tablet (200 mg) by mouth with breakfast. Do not start before May 25, 2023. 90 tablet 3 amitriptyline (Elavil) 25 mg tablet Take by mouth at bedtime. apixaban (Eliquis) 5 mg tablet Take 1 tablet (5 mg) by mouth in the morning and at bedtime. 180 tablet 3 aspirin 81 mg chewable tablet Chew 1 tablet (81 mg) with breakfast for 30 doses. Do not start before May 12, 2023. 30 tablet 0 bumetanide (Bumex) 1 mg tablet Take 1 tablet (1 mg) by mouth in the morning. 90 tablet 3 carvedilol (Coreg) 6.25 mg tablet Take 1 tablet (6.25 mg) by mouth once daily as directed. (Patient taking differently: Take 6.25 mg by mouth with breakfast and with evening meal.) 30 tablet 11 dapagliflozin propanediol (Farxiga) 10 mg Take 1 tablet (10 mg) by mouth once daily as directed. 90 tablet 3 diclofenac (Voltaren) 75 mg EC tablet Take 75 mg by mouth in the morning and at bedtime. Do not crush, chew, or split. losartan (Cozaar) 25 mg tablet Take 1 tablet (25 mg) by mouth in the morning. 90 tablet 3 magnesium oxide (Mag-Ox) 400 mg (241.3 mg magnesium) tablet Take 1 tablet (400 mg) by mouth in the morning and at bedtime. 180 tablet 3 metFORMIN XR (Glucophage-XR) 500 mg 24 hr tablet Take 500 mg by mouth daily with evening meal. Do not crush, chew, or split. sacubitril-valsartan (Entresto) 24-26 mg tablet Take 1 tablet by mouth in the morning and at bedtime. 180 tablet 3 spironolactone (Aldactone) 25 mg tablet Take 1 tablet (25 mg) by mouth once daily as directed. 90 tablet 3 amiodarone (Pacerone) 200 mg tablet Take 1 tablet (200 mg) by mouth with breakfast and with evening meal for 14 doses. Do not start before May 18, 2023. 14 tablet 0 amiodarone (Pacerone) 400 mg tablet Take 1 tablet (400 mg) by mouth with breakfast and with evening meal for 13 doses. 13 tablet 0 No current facility-administered medications on file prior to visit. ROS: Review of Systems Constitutional: Positive for malaise/fatigue. All other systems reviewed and are negative. Physical Exam: Constitutional General Appearance: well-nourished, well-developed, appears stated age Level of Distress: comfortable Psychiatric Mental Status: alert, normal affect Orientation: oriented to time, place, and person Insight: good judgement Eyes Lids and Conjunctivae: non-injected, no xanthelasma ENMT Ears: no lesions on external ear Nose: no lesions on external nose Oropharynx: no cyanosis, no pallor Neck Neck: supple, trachea midline Carotid Arteries: bilateral no (more content not included)... [facility] 05-17-2023 Note [facility] Cardiology Clinic Note Chief Complaint: Patient here for follow up [facility]. Had cath on 05/07/2023. Denies chest pain, SOB, and bleeding on Eliquis. Denies palpitations and lightheadedness/syncope. Still trying to regain her strength s/p hospital stay. HPI: Fern Cardoso is a 62 y.o. female With a history of recently diagnosed heart failure with midrange ejection fraction; she was discharged 05/11/2023; she is here for posthospital follow-up She has been doing well with no new symptoms. She has no blood in the urine or stools. She has been taking her medications as prescribed Cardiology ROS: Review of Systems All other systems reviewed and are negative. Past Medical History She has no past medical history on file. Surgical History She has no past surgical history on file. Social History She reports that she has never smoked. She has never used smokeless tobacco. No history on file for alcohol use and drug use. Family History No family history on file. Allergies Penicillins Medications Current Outpatient Medications: [START ON 05/18/2023] amiodarone (Pacerone) 200 mg tablet, Take 1 tablet (200 mg) by mouth with breakfast and with evening meal for 14 doses. Do not start before May 18, 2023., Disp: 14 tablet, Rfl: 0 [START ON 05/25/2023] amiodarone (Pacerone) 200 mg tablet, Take 1 tablet (200 mg) by mouth with breakfast for 90 doses. Do not start before May 25, 2023., Disp: 30 tablet, Rfl: 2 amiodarone (Pacerone) 400 mg tablet, Take 1 tablet (400 mg) by mouth with breakfast and with evening meal for 13 doses., Disp: 13 tablet, Rfl: 0 amitriptyline (Elavil) 25 mg tablet, Take by mouth at bedtime., Disp: , Rfl: apixaban (Eliquis) 5 mg tablet, Take 5 mg by mouth in the morning and at bedtime., Disp: , Rfl: apixaban (Eliquis) 5 mg tablet, Take 1 tablet (5 mg) by mouth in the morning and at bedtime., Disp: 60 tablet, Rfl: 0 aspirin 81 mg chewable tablet, Chew 1 tablet (81 mg) with breakfast for 30 doses. Do not start before May 12, 2023., Disp: 30 tablet, Rfl: 0 bumetanide (Bumex) 1 mg tablet, Take 1 tablet (1 mg) by mouth in the morning. Do not start before May 12, 2023., Disp: 30 tablet, Rfl: 0 carvedilol (Coreg) 6.25 mg tablet, Take 1 tablet (6.25 mg) by mouth in the morning and at bedtime., Disp: 60 tablet, Rfl: 0 dapagliflozin propanediol (Farxiga) 10 mg, Take 1 tablet (10 mg) by mouth in the morning. Do not start before May 12, 2023., Disp: 30 tablet, Rfl: 0 diclofenac (Voltaren) 75 mg EC tablet, Take 75 mg by mouth in the morning and at bedtime. Do not crush, chew, or split., Disp: , Rfl: magnesium oxide (Mag-Ox) 400 mg (241.3 mg magnesium) tablet, Take 1 tablet (400 mg) by mouth in the morning and at bedtime for 60 doses., Disp: 60 tablet, Rfl: 0 metFORMIN XR (Glucophage-XR) 500 mg 24 hr tablet, Take 500 mg by mouth daily with evening meal. Do not crush, chew, or split., Disp: , Rfl: sacubitril-valsartan (Entresto) 24-26 mg tablet, Take 1 tablet by mouth in the morning and at bedtime for 60 doses., Disp: 60 tablet, Rfl: 0 spironolactone (Aldactone) 25 mg tablet, Take 1 tablet (25 mg) by mouth in the morning. Do not start before May 12, 2023., Disp: 30 tablet, Rfl: 0 Last Recorded Vitals BP 116/70 (BP Location: Right wrist, Patient Position: Sitting) Pulse 74 Ht 1.651 m (5' 5 ) Wt (!) 156 kg (345 lb) SpO2 99% BMI 57.41 kg/m??? Physical Examination: GENERAL: alert and oriented x3, well developed, in no acute distress. HEAD: atraumatic, normocephalic. EYES: DEEJAY, EOMI. NECK: trachea midline, no JVD present, no carotid bruits present. CARDIAC: S1, S2 present. RRR. No murmur, rubs, or gallops. RESPIRATORY: CTAB, no increased effort of breathing, no rales, rhonchi, or wheezing. ABDOMEN: soft, nontender, nondistended. EXTREMITIES: no lower extremity edema, peripheral pulses are 2+ bilaterally. No rash/skin discoloration present. NEURO: strength/sensation equal and symmetric in bilateral upper and lower extremities. PSYCH: appropriate mood, affect, and judgement. INVESTIGATIONS: Echocardiogram-[facility] Name: FERN CARDOSO Study Date: 05/06/2023 08:24 AM B/P: 131 mmHg/56 mmHg HR: 80 bpm Date of : 1960 Location: [facility] Height: 65 in. Age: 62 year(s) Patient Room : 3131 Weight: 352 lb. Gender: Female Patient Status: InPt BSA: 2.52 m2 Indication: Dyspnea, Abnormal EKG Examination: Echocardiogram (Complete), Lumason Contrast Image Quality: Fair Patient Consent: Procedure explained to patient s p @ c 3 Exam Details Contrast: I.V. dose of Lumason Conclusions Left Ventricle: The left ventricle is normal size. Global left ventricular systolic function is mildly reduced. The EF is 40 % visually. Left ventricular wall thickness is moderately increased. The septum is abnormal in its motion; maybe due to bundle branch block. Grade 2, moderate diastolic (more content not included)... [facility] 05-14-2023 Evaluation note Encounter Date Diagnosis Assessment Notes Apr, Atrial fibrillation with RVR (ICD-10 - I48.91) Completed time off work 05/03 - 06/13, RTW 06/14 Keep scheduled appts w Drs. Stark and Daniel (cardio) Updated medication lists. Given samples of eliquis Apr, New onset of congestive heart failure (ICD-10 - I50.9) as above Apr, Essential hypertension (ICD-10 - I10) updated medications, gentle exercise as able. Low sodium diet Apr, RAVI (obstructive sleep apnea) (ICD-10 - G47.33) Completed forms for supplies and faxed back to [facility]. Pt states she will restart and become compliant w CPAP treatment. [facility] Other 01-23-2024 NotePt provided with discharge education and instructions. Heart failure folder reviewed in detail and filled out. Medications delivered and at bedside. All questions answered. Pt wheeled to main entrance, father there for transport. [facility]01-23-2024 NoteCardiology Progress Note Subjective F/U Acute systolic heart failure Patient up in chair. Denies SOB, cp, palpitations. Reports pedal edema significantly improved. Tele - currently NSR, with some episodes a.fib overnight per [facility] Objective Patient Vitals for the past 24 hrs: BP Temp Temp src Pulse Resp SpO2 Weight 05/11/23 1115 112/62 36.7 ???C (98 ???F) Temporal 75 11 95 % -- 05/11/23 0825 129/69 36.8 ???C (98.2 ???F) Temporal 82 16 96 % -- 05/11/23 0510 139/84 36.5 ???C (97.7 ???F) Temporal 77 16 99 % (!) 158 kg (348 lb 8.8 oz) 05/10/23 2350 124/66 -- -- 75 18 93 % -- 05/10/23 1915 136/64 36.6 ???C (97.9 ???F) Temporal 78 19 95 % -- 05/10/23 1630 119/50 36.3 ???C (97.4 ???F) Temporal 79 18 94 % -- 05/10/23 1205 121/53 36.6 ???C (97.8 ???F) Temporal 74 21 94 % -- Physical Examination: GENERAL: AOx3, in no acute distress. Obese HEAD: Atraumatic, normocephalic. EYES: EOMI. NECK: No JVD present. CARDIAC: RRR. No murmur, rubs, or gallops. RESPIRATORY: CTAB, no increased effort of breathing. ABDOMEN: Soft, nontender, nondistended. EXTREMITIES: trace bilateral lower extremity edema and lymphedema, peripheral pulses are 2+ bilaterally. NEURO: No focal deficits Relevant Lab Results Encounter Date: 05/05/23 ECG 12 lead Result Value Ventricular Rate 81 Atrial Rate 81 OK Interval 208 QRS DURATION 178 QT Interval 442 QTC CALCULATION(BAZETT) 513 P [place] 34 R-[place] -48 T Wave [place] 101 Impression Normal sinus rhythm Left axis deviation Left bundle branch block Abnormal ECG When compared with ECG of 13-FEB-2013 09:22, No significant change was found Confirmed by Jose Luis Cronin ([id number]) on 05/05/2023 9:15:31 PM Lab Results Component Value Date TROPONINI 0.01 05/06/2023 No nuclear medicine results found for the past 12 months Relevant Imaging Results Cardiac catheterization Addendum: Cardiovascular Laboratory Report FINAL IMPRESSIONS: Vasospasm of the right coronary, likely iatrogenic due to catheter and/or wire, resolved with intracoronary nitroglycerin Otherwise nonobstructive coronary arteries angiographically Mildly reduced global left ventricular systolic function by noninvasive imaging Mildly elevated right-sided heart pressures and wedge pressure Normal transpulmonary gradient along with elevated wedge consistent with postcapillary or pulmonary venous hypertension Normal cardiac output/cardiac index Pre- and intraprocedural tachyarrhythmias RECOMMENDATIONS: Aggressive cardiovascular factor modification Mildly elevated filling pressures particularly wedge, consider diuresis, strict inputs and outputs and daily weights Guideline directed medical therapy for heart failure with midrange ejection fraction (HFmrEF) should include a beta-kayli, RAAS inhibitor, an SGLT2 inhibitor and spironolactone Consider alternate etiologies for the patient's symptomatology namely pulmonary and or arrhythmia related Continue telemetry; consider 30-day event monitor and further investigations and management for the tachyarrhythmias as clinically appropriate Further recommendations deferred to the inpatient services PROCEDURES: Ultrasound-guided access to the right internal jugular vein, right heart catheterization, ultrasound-guided access to the left radial artery, bilateral selective coronary angiography METHODS: After risks, benefits, and alternatives were explained, written informed consent was obtained. The patient was prepped and draped in usual sterile fashion over the right neck and left radial regions. Using 1% lidocaine solution, local infiltration anesthesia was achieved. Using a modified Seldinger technique, a micropuncture kit, and under ultrasound guidance, access to the right internal jugular vein was obtained. A 6 Belarusian 11 cm sheath was inserted without difficulty. Right heart catheterization was performed using a Manning catheter via the venous sheath. Pressures were measured in the right atrium, right ventricle, pulmonary artery, and pulmonary capillary wedge positions. Oxygen saturations were obtained and cardiac output/cardiac index was calculated using the modified Galina principle. The Manning catheter was removed. The jugular sheath was removed with application of manual pressure to achieve optimal hemostasis. Local infiltration anesthesia was achieved of the left wrist. Using a micropuncture kit, and under ultrasound-guided access of the left radial artery was obtained. A 6 Belarusian glide sheath was inserted without difficulty. Difficulty advancing the De La Vega wire was encountered; therefore this was removed. Angiography was performed via the JR catheter. This revealed tortuosity. A soft angled Glidewire was used to traverse the tortuosity. Bilateral selective coronary angiography was performed using JL4 and JR4 catheters. Given a stenotic appearance of the mid right coronary artery with a smooth outline, coronary spasm was (more content not included)...[facility]01-23-2024 NoteHospital Medicine Discharge Summary Final Discharge Diagnosis: Atrial fibrillation with RVR- [id number] score 4 Atrial flutter New onset of congestive heart failure/heart failure -ejection fraction, 40% TTE 05/06/23 NYHA class II Hypokalemia/Hypomagnesemia Essential hypertension DMII noninsulin dependent Thrombocytopenia Osteoarthritis Obstructive sleep apnea with non compliance to CPAP Obese class 3 Admission Diagnosis: Acute systolic heart failure (CMS/HCC) [I50.21] Hospital course: History of Present Illness Fern Cardoso is an 62 y.o. female admitted from [facility] as a direct admit. She has history of hypertension diabetes obstructive sleep apnea not using CPAP or BiPAP he was admitted at [facility] with chief complaint of sudden onset of shortness of breath. According to patient she wake up in the morning 2 days back very short of breath denies any chest pain heart palpitation dizziness syncope weakness no increased cough or expectoration and no fever chills cough drops with the family to [place] [facility] with she was noted to be in A-fib with RVR which was treated with Cardizem IV with control of heart rate but remained atrial fibrillation she underwent a troponin evaluation which according to the note were within normal range she had a chest x-ray done and D-dimer which showed pulmonary vascular congestion due to elevated D-dimers she underwent CT of the chest which showed no pulmonary embolus but mild pulmonary alveolar and interstitial edema with small bilateral pleural effusions and cardiomegaly she had bilateral enlarged left axillary lymph node which are nonspecific. The EKG shows A-fib and left bundle branch block pattern. Her labs shows hemoglobin at 11.5 hematocrit 37.1 platelet count 121 her creatinine was 0.87 with GFR more than 60 BNP was 659 influenza and COVID serology was negative TSH was mildly elevated she had echocardiogram done which shows concentric left ventricular hypertrophy her ejection fraction was 40% and had left ventricular systolic dysfunction she has severely dilated left atrium very right-sided pressures within normal range. 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 She is independent in heractivities of daily living denies use of any assistive device for ambulation and denies any recurrent falls. Hospital Course Patient was admitted and started on IV diuresis. Cardiology was consulted. Telemetry strips and EKG were reviewed from [facility]. Strip labeled as V. tach is consistent with a flutter 2-1 block. Patient underwent a cardiac cath and CORS showed normal coronary angiography. RHC showed mildly elevated wedge pressure. On 05/08 she was converted to oral bumex. She has had issues with atrial flutter through her stay. On 05/09 it was decided to initiate amiodarone to help maintain normal sinus rhythm. Patient was converted to amiodarone po on 05/11 and is to do amiodarone 400mg po bid x 7 days, 200mg po bid x 7 days then 200 mg once a day. She was also placed on optimal GDMT. She has had follow up arranged with cardiology and EP prior to discharge. Cards note Assessment: Fern Cardoso is a 62 y.o. female With past medical history of hypertension, diabetes, obstructive sleep apnea who was admitted to [facility] with sudden onset shortness of breath found to have new onset heart failure and atrial fibrillation. Acute heart failure with mid range ejection fraction, 40% TTE 05/06/23 NYHA class II Atrial fibrillation/flutter, [id number] 4 (female-1, heart failure-1, diabetes mellitus-1, Hypertension-1) Grade 2 diastolic dysfunction Hypertension with heart failure Diabetes mellitus Hypomagnesemia, resolved Plan: Currently in sinus rhythm, continue amiodarone infusion to continue loading Continue bumex 1 mg daily. Continue Eliquis for stroke prevention in the setting of afib. Continue GDMT- aspirin, losartan, Lopressor, Farxiga, transition metoprolol tartrate to coreg, and continue aldactone. For Afib/flutter, she is in/out. Unable to do Tikosyn or Sotalol due to QT prolongation. Monitor daily weights, I&O, fluid restriction 1.5-2L/day, renal function and electrolytes- please maintain K+>4 and Mg > 2 Coreg for better HTN management Outpatient follow up with Dr. Cronin for consideration of Afib/flutter ablation. Cardiology will continue to follow Dear Dr. Niall MD, Fern is advised to follow up with you within 1-2 weeks. Follow-up with: Cardiology Scheduled appointments: Future Appointments Date Time Provider Department Center 05/17/2023 1:00 PM Regina Stark MD CARD [facility] 06/08/2023 2:40 PM Jose Luis Cronin MD CARD [facility] Your medication list START taking these medications Instructions Last Dose Given Next Dose Due amiodarone 400 mg tablet Commonly known as: Pacerone Take 1 tablet (400 mg) by mouth (more content not included)...[facility]01-23-2024 NoteNutrition Screening Assessment: Patient Name: Fern Cardoso : 1960 Date of Assessment: 05/11/23 Nutrition re-screen completed No past medical history on file. Information obtained from: patient, medical record, and nursing Current Problems: A fib. New onset CHF, EF of 40% per echo 05/06/23. Current Medications: amiodarone, 400 mg, oral, BID with meals Followed by [START ON 05/18/2023] amiodarone, 200 mg, oral, BID with meals Followed by [START ON 05/25/2023] amiodarone, 200 mg, oral, Daily with breakfast apixaban, 5 mg, oral, BID aspirin, 81 mg, oral, Daily with breakfast bumetanide, 1 mg, oral, Daily carvedilol, 6.25 mg, oral, BID dapagliflozin propanediol, 10 mg, oral, Daily insulin aspart, 0-20 Units, subcutaneous, TID with meals And insulin aspart, 0-20 Units, subcutaneous, Nightly magnesium oxide, 400 mg, oral, BID sacubitril-valsartan, 1 tablet, oral, BID spironolactone, 25 mg, oral, Daily Dietary Orders (From admission, onward) Start Ordered 05/07/23 142 Regular Diet Heart Healthy/HTN, CABG,Stroke, (2gNA, low fat, low cholesterol); Diabetic Female (carb 45g/meal) Diet effective now Question Answer Comment Room Service? Yes Fat restriction: Heart Healthy/HTN, CABG,Stroke, (2gNA, low fat, low cholesterol) Carbohydrate restriction: Diabetic Female (carb 45g/meal) 05/07/23 1427 Meal Intakes: 75-100% Body mass index is 58 kg/m???. Results from last 7 days Lab Units 05/11/23 0727 05/11/23 0510 05/10/23 2047 05/10/23 1622 05/10/23 0754 05/10/23 0529 05/09/23 1103 05/09/23 0755 05/09/23 0741 05/09/23 0335 05/07/23 1151 05/07/23 0426 POCT GLUCOSE mg/dL 114* -- 119* 141* < > -- < > -- < > -- < > -- BUN mg/dL -- 17 -- -- -- 18 -- 20 -- -- < > 14 CREATININE mg/dL -- 0.80 -- -- -- 0.80 -- 0.90 -- -- < > 0.86 SODIUM mmol/L -- 135* -- -- -- 136 -- 135* -- -- < > 138 POTASSIUM mmol/L -- 3.7 -- -- -- 3.8 -- 4.0 -- -- < > 3.4* MAGNESIUM mg/dL -- 1.7* -- -- -- 1.7* -- 1.9 -- -- < > -- HEMOGLOBIN g/dL -- 13.0 -- -- -- -- -- -- -- 12.9 -- 12.4 WBC AUTO 10*3/uL -- 4.32 -- -- -- -- -- -- -- 4.51 -- 4.25 < > = values in this interval not displayed. Plan: Continue current diet Good intakes at this time. No nutritional risk on admission Reviewed HF diet education. Pt reports understanding Continue to monitor. (Please reach out with questions and contact the dietitian via [employer] chat 8A-4P Wednesday-Wednesday. Or call the dietitian's office at extension [phone]. For weekends/holidays, the dietitian's can be reached by paging [phone] from 9A-3P. Unable to be reached via [employer] chat on Wednesday & .)[facility]01-22-2024 NoteHoital Medicine Daily Progress Note - 05/10/2023 12:14 PM; Room: [address] [place] [address] Admission: 05/05/2023 7:10 PM; Length of stay: 5 days THE HOSPITALIST TEAM PREFERS TO USE [email or web address] FOR COMMUNICATION 7AM-7PM. IF I DO NOT RESPOND WITHIN 15 MINUTES, PLEASE PAGE ME/CALL THROUGH THE MARINE OPERATIONS COORDINATOR. FROM 7PM-7AM, PLEASE PAGE [phone](COVR) Code Status: Full Code Barriers to Discharge: atrial flutter Expected Discharge Date: 1 - 2 days Discharge Destination: home Overview Patient is seen for evaluation and management of SOB, leg swelling. Subjective Doing OK No complaints Physical Exam Visit Vitals BP 121/53 Pulse 74 Temp 36.6 ???C (97.8 ???F) (Temporal) Resp 21 Intake/Output Summary (Last 24 hours) at 05/10/2023 1214 Last data filed at 05/10/2023 1129 Gross per 24 hour Intake 1976.7 ml Output 1020 ml Net 956.7 ml Physical Exam Constitutional: Appearance: Normal appearance. Eyes: Extraocular Movements: Extraocular movements intact. Pupils: Pupils are equal, round, and reactive to light. Cardiovascular: Rate and Rhythm: Normal rate and regular rhythm. Pulmonary: Effort: Pulmonary effort is normal. Abdominal: General: Abdomen is flat. Skin: General: Skin is warm. Neurological: General: No focal deficit present. Mental Status: She is alert. Estimated body mass index is 57.78 kg/m??? as calculated from the following: Height as of this encounter: 1.651 m (5' 5 ). Weight as of this encounter: 157 kg (347 lb 3.6 oz). Active Inpatient Problems Principal Problem: Acute on chronic systolic heart failure, NYHA class 2 (CMS/HCC) Active Problems: Paroxysmal atrial fibrillation (CMS/HCC) Grade II diastolic dysfunction Benign hypertensive cardiomyopathy with heart failure (CMS/HCC) Assessment and Plan Atrial fibrillation with RVR- [id number] score 4 - resumed eliquis - amio gtt stated 05/09 - Unable to do Tikosyn or Sotalol due to QT prolongation. New onset of congestive heart failure/heart failure -ejection fraction, 40% TTE 05/06/23 NYHA class II - underwent cardiac cath 05/07 - Continue aspirin, losartan, Lopressor, Farxiga - lopressor changed to coreg today - bumex 1 mg daily Hypokalemia/Hypomagnesemia - replace as needed Essential hypertension - cont home meds DMII noninsulin dependent - on metformin at home - currently on iss Thrombocytopenia - monitor Osteoarthritis - stable Obstructive sleep apnea with non compliance to CPAP Obese class 3 - BMI 57 VTE Prophylaxis: Eliquis Scheduled Meds apixaban, 5 mg, oral, BID aspirin, 81 mg, oral, Daily with breakfast bumetanide, 1 mg, oral, Daily carvedilol, 6.25 mg, oral, BID dapagliflozin propanediol, 10 mg, oral, Daily insulin aspart, 0-20 Units, subcutaneous, TID with meals And insulin aspart, 0-20 Units, subcutaneous, Nightly losartan, 50 mg, oral, Daily magnesium oxide, 400 mg, oral, BID metoprolol tartrate, 5 mg, intravenous, Once spironolactone, 25 mg, oral, Daily amiodarone, 1 mg/min, Last Rate: 1 mg/min (05/10/23 0606) Pertinent Investigations Hematology: Results from last 7 days Lab Units 05/09/23 0335 05/07/23 0426 WBC AUTO 10*3/uL 4.51 4.25 HEMOGLOBIN g/dL 12.9 12.4 HEMATOCRIT % 39.6 38.3 MCV fL 88.4 88.2 PLATELETS AUTO 10*3/uL 124* 121* Chemistry: Results from last 7 days Lab Units 05/10/23 0529 05/09/23 0755 05/08/23 0423 SODIUM mmol/L 136 135* 139 POTASSIUM mmol/L 3.8 4.0 3.5 CHLORIDE mmol/L 99 98 99 CO2 mmol/L 33* 31 34* BUN mg/dL 18 20 18 CREATININE mg/dL 0.80 0.90 0.90 GLUCOSE mg/dL 110* 102* 94 MAGNESIUM mg/dL 1.7* 1.9 1.3* CALCIUM mg/dL 9.7 9.4 9.9 Results from last 7 days Lab Units 05/06/23 0542 AST U/L 42* ALT U/L 24 ALK PHOS U/L 41 BILIRUBIN TOTAL mg/dL 1.3* Results from last 7 days Lab Units 05/10/23 1113 05/10/23 0754 05/09/23201305/09/23 1615 05/09/23 1103 05/09/23 0741 POCT GLUCOSE mg/dL 162* 111* 145* 118* 152* 105 Historical Values: (Includes values prior to this admission) Lab Results Component Value Date TSH 5.84 (H) 05/06/2023 FREET4 1.08 05/06/2023 No results found for: [id number] , IRON , TIBC , C3 , C4 , ILSA , CANCA , ASO , PSA , CEA , CA125 , CA199 , AFP , CA153 Imaging Cardiac catheterization Addendum: Cardiovascular Laboratory Report FINAL IMPRESSIONS: Vasospasm of the right coronary, likely iatrogenic due to catheter and/or wire, resolved with intracoronary nitroglycerin Otherwise nonobstructive coronary arteries angiographically Mildly reduced global left ventricular systolic function by noninvasive imaging Mildly elevated right-sided heart pressures and wedge pressure Normal transpulmonary gradient along with elevated wedge consistent with postcapillary or pulmonary venous hypertension Normal cardiac output/cardiac index Pre- and intraprocedural tachyarrhythmias RECOMMENDATIONS: Aggressive cardiovascular factor modificati (more content not included)... [facility]01-22-2024 NotePt admitted to hospital for acute on chronic systolic HF, hx of HTN, DM, RAVI w/o CPAP compliance. Pt's echo from 05/06/23 estimated LVEF 40%, which does not qualify pt for cardiac rehab (CR) therapy with HF diagnosis per CMS eligibility criteria. I will watch for updates and follow up with pt, if appropriate. 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 No acute events overnight. Denied chest pain, shortness of breath, palpitations. Remains on amiodarone infusion and currently per monitor she is sinus rhythm. Tele overnight- A fib 74-135 bpm Objective Patient Vitals for the past 24 hrs: BP Temp Temp src Pulse Resp SpO2 Weight 05/10/23 0531 -- -- -- -- -- -- (!) 157 kg (347 lb 3.6 oz) 05/10/23 0525 147/73 36.2 ???C (97.2 ???F) Temporal 75 25 98 % -- 05/09/23 2350 116/64 -- -- 74 26 96 % -- 05/09/232024 130/64 36.6 ???C (97.9 ???F) Temporal 87 15 95 % -- 05/09/23 1548 113/81 -- -- (!) 126 23 94 % -- 05/09/23 1540 -- -- -- 89 15 100 % -- 05/09/23 1537 -- -- -- (!) 126 -- 92 % -- 05/09/23 1535 -- -- -- (!) 125 21 91 % -- 05/09/23 1510 -- -- -- (!) 130 (!) 45 -- -- 05/09/23 1448 118/62 -- -- (!) 128 -- -- -- 05/09/23 1445 118/62 -- -- (!) 128 25 94 % -- 05/09/23 1425 -- -- -- (!) 131 21 92 % -- 05/09/23 1420 -- -- -- 82 19 94 % -- 05/09/23 1145 92/57 36.6 ???C (97.8 ???F) Temporal 82 15 96 % -- Physical Examination: GENERAL: AOx3, in no acute distress. Obese HEAD: Atraumatic, normocephalic. EYES: EOMI. NECK: No JVD present. CARDIAC: RRR. No murmur, rubs, or gallops. RESPIRATORY: CTAB, no increased effort of breathing. ABDOMEN: Soft, nontender, nondistended. EXTREMITIES: 1+ bilateral lower extremity edema and lymphedema, peripheral pulses are 2+ bilaterally. NEURO: No focal deficits Relevant Lab Results Encounter Date: 05/05/23 ECG 12 lead Result Value Ventricular Rate 81 Atrial Rate 81 OK Interval 208 QRS DURATION 178 QT Interval 442 QTC CALCULATION(BAZETT) 513 P [place] 34 R-[place] -48 T Wave [place] 101 Impression Normal sinus rhythm Left axis deviation Left bundle branch block Abnormal ECG When compared with ECG of 13-FEB-2013 09:22, No significant change was found Confirmed by Jose Luis Cronin ([id number]) on 05/05/2023 9:15:31 PM Lab Results Component Value Date TROPONINI 0.01 05/06/2023 No nuclear medicine results found for the past 12 months Relevant Imaging Results Cardiac catheterization Addendum: Cardiovascular Laboratory Report FINAL IMPRESSIONS: Vasospasm of the right coronary, likely iatrogenic due to catheter and/or wire, resolved with intracoronary nitroglycerin Otherwise nonobstructive coronary arteries angiographically Mildly reduced global left ventricular systolic function by noninvasive imaging Mildly elevated right-sided heart pressures and wedge pressure Normal transpulmonary gradient along with elevated wedge consistent with postcapillary or pulmonary venous hypertension Normal cardiac output/cardiac index Pre- and intraprocedural tachyarrhythmias RECOMMENDATIONS: Aggressive cardiovascular factor modification Mildly elevated filling pressures particularly wedge, consider diuresis, strict inputs and outputs and daily weights Guideline directed medical therapy for heart failure with midrange ejection fraction (HFmrEF) should include a beta-kayli, RAAS inhibitor, an SGLT2 inhibitor and spironolactone Consider alternate etiologies for the patient's symptomatology namely pulmonary and or arrhythmia related Continue telemetry; consider 30-day event monitor and further investigations and management for the tachyarrhythmias as clinically appropriate Further recommendations deferred to the inpatient services PROCEDURES: Ultrasound-guided access to the right internal jugular vein, right heart catheterization, ultrasound-guided access to the left radial artery, bilateral selective coronary angiography METHODS: After risks, benefits, and alternatives were explained, written informed consent was obtained. The patient was prepped and draped in usual sterile fashion over the right neck and left radial regions. Using 1% lidocaine solution, local infiltration anesthesia was achieved. Using a modified Seldinger technique, a micropuncture kit, and under ultrasound guidance, access to the right internal jugular vein was obtained. A 6 Bel[place]ian 11 cm sheath was inserted without difficulty. Right heart catheterization was performed using a Manning catheter via the venous sheath. Pressures were measured in the right atrium, right ventricle, pulmonary artery, and pulmonary capillary wedge positions. Oxygen saturations were obtained and cardiac output/cardiac index was calculated using the modified Galina principle. The Manning catheter was removed. The jugular sheath was removed with application of manual pressure to achieve optimal hemostasis. Local infiltration anesthesia was achieved of the left wrist. Using a micropuncture kit, and under ultrasound-guided access of the left radial artery was obtained. A 6 Bel[place]ian glide sheath was inserted without difficulty. Difficulty advancing the De La Vega wire was encountered; therefore this was removed. Angiography was performed via the JR catheter. T (more content not included)...[facility]01-21-2024 NoteHospital Medicine Daily Progress Note - 05/09/2023 12:26 PM; Room: [facility]3131- Admission: 05/05/2023 7:10 PM; Length of stay: 4 days THE HOSPITALIST TEAM PREFERS TO USE [email or web address] FOR COMMUNICATION 7AM-7PM. IF I DO NOT RESPOND WITHIN 15 MINUTES, PLEASE PAGE ME/CALL THROUGH THE MARINE OPERATIONS COORDINATOR. FROM 7PM-7AM, PLEASE PAGE [phone](COVR) Code Status: Full Code Barriers to Discharge: atrial flutter Expected Discharge Date: 1 - 2 days Discharge Destination: home Overview Patient is seen for evaluation and management of SOB, leg swelling. Subjective Cardiology in room. Required dose of digoxin this AM Cards to start amiodarone today Physical Exam Visit Vitals BP 92/57 (BP Location: Left arm, Patient Position: Sitting) Pulse 82 Temp 36.6 ???C (97.8 ???F) (Temporal) Resp 15 Intake/Output Summary (Last 24 hours) at 05/09/2023 1226 Last data filed at 05/09/2023 1000 Gross per 24 hour Intake 685 ml Output 950 ml Net -265 ml Physical Exam Constitutional: Appearance: Normal appearance. Eyes: Extraocular Movements: Extraocular movements intact. Pupils: Pupils are equal, round, and reactive to light. Cardiovascular: Rate and Rhythm: Normal rate and regular rhythm. Pulmonary: Effort: Pulmonary effort is normal. Abdominal: General: Abdomen is flat. Skin: General: Skin is warm. Neurological: General: No focal deficit present. Mental Status: She is alert. Estimated body mass index is 57.27 kg/m??? as calculated from the following: Height as of this encounter: 1.651 m (5' 5 ). Weight as of this encounter: 156 kg (344 lb 2.2 oz). Active Inpatient Problems Principal Problem: Acute systolic heart failure (CMS/HCC) Assessment and Plan Atrial fibrillation with RVR- [id number] score 4 - currently on metoprolol - resumed eliquis - cardiology to start amiodarone today New onset of congestive heart failure/heart failure -ejection fraction, 40% TTE 05/06/23 NYHA class II - underwent cardiac cath 05/07 - Continue aspirin, losartan, Lopressor, Farxiga - bumex 1 mg daily Hypokalemia/Hypomagnesemia - replace as needed Essential hypertension - cont home meds DMII noninsulin dependent - on metformin at home - currently on iss Thrombocytopenia - monitor Osteoarthritis - stable Obstructive sleep apnea with non compliance to CPAP Obese class 3 - BMI 57 VTE Prophylaxis: Eliquis Scheduled Meds apixaban, 5 mg, oral, BID aspirin, 81 mg, oral, Daily with breakfast bumetanide, 1 mg, oral, Daily dapagliflozin propanediol, 10 mg, oral, Daily insulin aspart, 0-20 Units, subcutaneous, TID with meals And insulin aspart, 0-20 Units, subcutaneous, Nightly losartan, 50 mg, oral, Daily magnesium oxide, 400 mg, oral, BID metoprolol tartrate, 5 mg, intravenous, Once metoprolol tartrate, 25 mg, oral, BID spironolactone, 25 mg, oral, Daily Pertinent Investigations Hematology: Results from last 7 days Lab Units 05/09/23 0335 05/07/23 0426 WBC AUTO 10*3/uL 4.51 4.25 HEMOGLOBIN g/dL 12.9 12.4 HEMATOCRIT % 39.6 38.3 MCV fL 88.4 88.2 PLATELETS AUTO 10*3/uL 124* 121* Chemistry: Results from last 7 days Lab Units 05/09/23 0755 05/08/23 0423 05/07/23 0426 SODIUM mmol/L 135* 139 138 POTASSIUM mmol/L 4.0 3.5 3.4* CHLORIDE mmol/L 98 99 98 CO2 mmol/L 31 34* 32* BUN mg/dL 20 18 14 CREATININE mg/dL 0.90 0.90 0.86 GLUCOSE mg/dL 102* 94 110* MAGNESIUM mg/dL 1.9 1.3* -- CALCIUM mg/dL 9.4 9.9 9.7 Results from last 7 days Lab Units 05/06/23 0542 AST U/L 42* ALT U/L 24 ALK PHOS U/L 41 BILIRUBIN TOTAL mg/dL 1.3* Results from last 7 days Lab Units 05/09/23 1103 05/09/23 0741 05/08/23 2122 05/08/23 1606 05/08/23 1120 05/08/23 0715 POCT GLUCOSE mg/dL 152* 105 121* 110* 150* 118* Historical Values: (Includes values prior to this admission) Lab Results Component Value Date TSH 5.84 (H) 05/06/2023 FREET4 1.08 05/06/2023 No results found for: [id number] , IRON , TIBC , C3 , C4 , ILSA , CANCA , ASO , PSA , CEA , CA125 , CA199 , AFP , CA153 Imaging Cardiac catheterization Addendum: Cardiovascular Laboratory Report FINAL IMPRESSIONS: Vasospasm of the right coronary, likely iatrogenic due to catheter and/or wire, resolved with intracoronary nitroglycerin Otherwise nonobstructive coronary arteries angiographically Mildly reduced global left ventricular systolic function by noninvasive imaging Mildly elevated right-sided heart pressures and wedge pressure Normal transpulmonary gradient along with elevated wedge consistent with postcapillary or pulmonary venous hypertension Normal cardiac output/cardiac index Pre- and intraprocedural tachyarrhythmias RECOMMENDATIONS: Aggressive cardiovascular factor modification Mildly elevated filling pressures particularly wedge, consider diuresis, strict inputs and outputs and daily weights Guideline directed medical therapy for heart failure with (more content not included)...[facility]01-21-2024 Note Attestation signed by Adenike Serrano MD at 05/11/2023 4:26 PM I personally saw and examined the patient on the same date of service as resident/fellow Dr. Shetty. I discussed the findings and therapeutic plan with the resident/fellow Dr. Shetty. I agree with the documentation, except for any edits/updates below. Teaching Physician's Revisions: None Cardiology Progress Note Subjective Subjective: Patient seen and examined. No chest pain or shortness of breath. Feeling better today. Had A flutter this morning terminated with 1 dose of digoxin. Objective Objective: Patient Vitals for the past 24 hrs: BP Temp Temp src Pulse Resp SpO2 Weight 05/09/23 0501 -- -- -- -- -- -- (!) 156 kg (344 lb 2.2 oz) 05/09/23 0335 141/79 36.6 ???C (97.9 ???F) Temporal (!) 137 16 97 % -- 05/09/23 0015 127/69 -- -- 89 11 96 % -- 05/08/232009 133/70 37.5 ???C (99.5 ???F) Temporal 86 21 94 % -- 05/08/23 1505 103/55 -- -- 90 20 97 % -- 05/08/23 1115 91/74 -- -- 84 14 95 % -- Physical Examination: GENERAL: AOx3, in no acute distress. Obese HEAD: Atraumatic, normocephalic. EYES: EOMI. NECK: No JVD present. CARDIAC: RRR. No murmur, rubs, or gallops. RESPIRATORY: CTAB, no increased effort of breathing. ABDOMEN: Soft, nontender, nondistended. EXTREMITIES: Trace bilateral lower extremity edema, peripheral pulses are 2+ bilaterally. NEURO: No focal deficits Relevant Lab Results Encounter Date: 05/05/23 ECG 12 lead Result Value Ventricular Rate 81 Atrial Rate 81 OK Interval 208 QRS DURATION 178 QT Interval 442 QTC CALCULATION(BAZETT) 513 P [place] 34 R-[place] -48 T Wave [place] 101 Impression Normal sinus rhythm Left axis deviation Left bundle branch block Abnormal ECG When compared with ECG of 13-FEB-2013 09:22, No significant change was found Confirmed by Jose Luis Cronin ([id number]) on 05/05/2023 9:15:31 PM Lab Results Component Value Date TROPONINI 0.01 05/06/2023 Complete Echo (TTE) w/wo Imaging Agent, Strain, 3D, Bubble Study Result Date: 05/06/2023 1 1 [facility] Heart Station [address] [place] [address] [phone] (fax) Echocardiogram-[facility] Name: FERN CARDOSO Study Date: 05/06/2023 08:24 AM B/P: 131 mmHg/56 mmHg HR: 80 bpm Date of : 1960 Location: [facility] Height: 65 in. Age: 62 year(s) Patient Room: 3131 Weight: 352 lb. Gender: Female Patient Status: InPt BSA: 2.52 m2 Indication: Dyspnea, Abnormal EKG Examination: Echocardiogram (Complete), Lumason Contrast Image Quality: Fair Patient Consent: Procedure explained to patient Exam Details Contrast: I.V. dose of Lumason Conclusions Left Ventricle: The left ventricle is normal size. Global left ventricular systolic function is mildly reduced. The EF is 40 % visually. Left ventricular wall thickness is moderately increased. The septum is abnormal in its motion; maybe due to bundle branch block. Grade 2, moderate diastolic dysfunction (pseudonormalized LV filling pattern). Right Ventricle: The right ventricle is normal in size. Normal right ventricular systolic function. Left Atrium: The left atrium is moderately enlarged. Pericardium: Anterior free space is seen; effusion versus fat pad. Overall Conclusions: Due to suboptimal imaging Lumason contrast was administered for opacification and better delineation of endocardial borders. No significant valvular abnormalities Measurements Left Ventricle Label Value Normal Value LVOTd 2 cm (18cm - 20cm) LVOT VTI 29 cm (18cm - 22cm) LVOT PGmax 9 mmHg LVEF visual 40 % LVDd, 2D 5 cm (3.9cm - 5.3cm) LVDs, 2D 3.67 cm (2.1cm - 4cm) IVSd, 2D 1.4 cm (0.6cm - 1.1cm) LVPWd, 2D 1.46 cm (0.6cm - 0.9cm) LV Mass, 2D ASE 300.61 g LV Mass Index, 2D ASE 119.3 g/m?? (44g/m?? - 88.4g/m??) RWT, MM 0.58 (0 - 0.42) LVSVI, 2D 24.2 ml/m2 LVOT PGmean 5 mmHg LVSV_LVOT 91 ml Right Ventricle Label Value Normal Value RVDd, 2D 3.84 cm (1.9cm - 3.8cm) TAPSE 3 cm Left Atrium Label Value Normal Value LA Volume, BP 116 ml (22ml - 52ml) LADs, 2D 5.5 cm (2.7cm - 3.8cm) LAESV index, BP 46 ml/m?? Right Atrium Label Value Normal Value RA Area 21.8 cm?? Aortic Valve Label Value Normal Value AV DVI 0.75 AV VTI 38 cm Mitral Valve Label Value Normal Value MV E Vmax 1.21 m/s MV A Vmax 1.14 m/s MV E/A 1.06 MV E/E' lateral 18.8 MV E' lateral 0.06 m/s Aorta Label Value Normal Value AoAsc 2.9 cm AoRoot, 2D 2.8 cm (1.4cm - 3.8cm) Valvular Assessment LVOT 0.7 - 1.1 m/sec Aortic Valve 1.0 - 1.7 m/sec Mitral Valve 0.6 - 1.3 m/sec Tricuspid Valve 0.3 - 0.7 m/sec Pulmonic Valve 0.6 - 0.9 m/sec Regurgitation No Trivial Trivial No Stenosis No No Max Velocity 1.50m/sec 1.99 m/s 1.21 m/sec 1.37 m/s Max Gradient 16.00 mmHg 8.00 mmHg Mean Gradient 9.00 mmHg Valve Area 2.4 cm?? Findings Left (more content not included)...[facility]01-20-2024 Note Attestation signed by Adenike Serrano MD at 05/08/2023 2:11 PM I personally saw and examined the patient on the same date of service as resident/fellow Dr. Shetty. I discussed the findings and therapeutic plan with the resident/fellow Dr. Shetty. I agree with the documentation, except for any edits/updates below. Teaching Physician's Revisions: None Cardiology Progress Note Subjective Subjective: Patient seen and examined. No chest pain or shortness of breath. Feeling better today. Objective Objective: Patient Vitals for the past 24 hrs: BP Temp Temp src Pulse Resp SpO2 Weight 05/08/23 1115 91/74 -- -- 84 14 95 % -- 05/08/23 0746 126/70 36.8 ???C (98.2 ???F) Temporal 88 25 93 % -- 05/08/23 0500 111/68 -- -- 86 16 95 % (!) 156 kg (343 lb 7.6 oz) 05/08/23 0400 129/70 36.8 ???C (98.3 ???F) Temporal (!) 134 19 96 % -- 05/08/23 0025 122/64 -- -- 95 22 95 % -- 05/07/23 1930 99/57 -- Temporal 100 13 94 % -- 05/07/23 1804 102/66 -- -- 90 18 92 % -- 05/07/23 1746 99/64 -- -- 90 17 93 % -- 05/07/23 1711 98/64 -- -- 93 18 97 % -- 05/07/23 1603 108/79 -- -- 86 18 94 % -- 05/07/23 1526 105/76 -- -- 87 14 95 % -- 05/07/23 1515 111/76 -- -- 88 20 91 % -- 05/07/23 1445 131/86 -- -- 104 24 -- -- 05/07/23 1430 122/87 -- -- 79 16 95 % -- 05/07/23 1426 114/76 -- -- 86 17 93 % -- 05/07/23 1415 140/67 -- -- 97 20 94 % -- 05/07/23 1400 135/78 -- -- 83 23 99 % -- 05/07/23 1356 146/71 36.6 ???C (97.9 ???F) Temporal 85 15 97 % -- 05/07/23 1331 -- -- -- -- -- 98 % -- 05/07/23 1330 147/84 -- -- 84 17 98 % -- Physical Examination: GENERAL: AOx3, in no acute distress. Obese HEAD: Atraumatic, normocephalic. EYES: EOMI. NECK: No JVD present. CARDIAC: RRR. No murmur, rubs, or gallops. RESPIRATORY: CTAB, no increased effort of breathing. ABDOMEN: Soft, nontender, nondistended. EXTREMITIES: Trace bilateral lower extremity edema, peripheral pulses are 2+ bilaterally. NEURO: No focal deficits Relevant Lab Results Encounter Date: 05/05/23 ECG 12 lead Result Value Ventricular Rate 81 Atrial Rate 81 OK Interval 208 QRS DURATION 178 QT Interval 442 QTC CALCULATION(BAZETT) 513 P [place] 34 R-[place] -48 T Wave [place] 101 Impression Normal sinus rhythm Left axis deviation Left bundle branch block Abnormal ECG When compared with ECG of 13-FEB-2013 09:22, No significant change was found Confirmed by Jose Luis Cronin ([id number]) on 05/05/2023 9:15:31 PM Lab Results Component Value Date TROPONINI 0.01 05/06/2023 Complete Echo (TTE) w/wo Imaging Agent, Strain, 3D, Bubble Study Result Date: 05/06/2023 1 1 [facility] [address] [place] [address] [phone] (fax) Echocardiogram-[facility] Name: FERN CARDOSO Study Date: 05/06/2023 08:24 AM B/P: 131 mmHg/56 mmHg HR: 80 bpm Date of : 1960 Location: [facility] Height: 65 in. Age: 62 year(s) Patient Room: 3131 Weight: 352 lb. Gender: Female Patient Status: InPt BSA: 2.52 m2 Indication: Dyspnea, Abnormal EKG Examination: Echocardiogram (Complete), Lumason Contrast Image Quality: Fair Patient Consent: Procedure explained to patient Exam Details Contrast: I.V. dose of Lumason Conclusions Left Ventricle: The left ventricle is normal size. Global left ventricular systolic function is mildly reduced. The EF is 40 % visually. Left ventricular wall thickness is moderately increased. The septum is abnormal in its motion; maybe due to bundle branch block. Grade 2, moderate diastolic dysfunction (pseudonormalized LV filling pattern). Right Ventricle: The right ventricle is normal in size. Normal right ventricular systolic function. Left Atrium: The left atrium is moderately enlarged. Pericardium: Anterior free space is seen; effusion versus fat pad. Overall Conclusions: Due to suboptimal imaging Lumason contrast was administered for opacification and better delineation of endocardial borders. No significant valvular abnormalities Measurements Left Ventricle Label Value Normal Value LVOTd 2 cm (18cm - 20cm) LVOT VTI 29 cm (18cm - 22cm) LVOT PGmax 9 mmHg LVEF visual 40 % LVDd, 2D 5 cm (3.9cm - 5.3cm) LVDs, 2D 3.67 cm (2.1cm - 4cm) IVSd, 2D 1.4 cm (0.6cm - 1.1cm) LVPWd, 2D 1.46 cm (0.6cm - 0.9cm) LV Mass, 2D ASE 300.61 g LV Mass Index, 2D ASE 119.3 g/m?? (44g/m?? - 88.4g/m??) RWT, MM 0.58 (0 - 0.42) LVSVI, 2D 24.2 ml/m2 LVOT PGmean 5 mmHg LVSV_LVOT 91 ml Right Ventricle Label Value Normal Value RVDd, 2D 3.84 cm (1.9cm - 3.8cm) TAPSE 3 cm Left Atrium Label Value Normal Value LA Volume, BP 116 ml (22ml - 52ml) LADs, 2D 5.5 cm (2.7cm - 3.8cm) LAESV index, BP 46 ml/m?? Right Atrium Label Value Normal Value RA Area 21.8 cm?? Aortic Valve Label Value Normal Value AV DVI 0.75 AV VTI 38 cm Mitral Valv (more content not included)... [facility]01-20-2024 NoteHospital Medicine Daily Progress Note - 05/08/2023 8:40 AM; Room: [address] [place] [address] Admission: 05/05/2023 7:10 PM; Length of stay: 3 days THE HOSPITALIST TEAM PREFERS TO USE [employer] CHAT FOR COMMUNICATION 7AM-7PM. IF I DO NOT RESPOND WITHIN 15 MINUTES, PLEASE PAGE ME/CALL THROUGH THE MARINE OPERATIONS COORDINATOR. FROM 7PM-7AM, PLEASE PAGE [phone](COVR) Code Status: Full Code Barriers to Discharge: diuresis Expected Discharge Date: 1 - 2 days Discharge Destination: home Overview Patient is seen for evaluation and management of SOB, leg swelling. Subjective Up in chair Had atrial flutter last night Physical Exam Visit Vitals BP 126/70 (BP Location: Left arm, Patient Position: Lying) Pulse 88 Temp 36.8 ???C (98.2 ???F) (Temporal) Resp 25 Intake/Output Summary (Last 24 hours) at 05/08/2023 0840 Last data filed at 05/08/2023 0500 Gross per 24 hour Intake 935 ml Output 1905 ml Net -970 ml Physical Exam Constitutional: Appearance: Normal appearance. Eyes: Extraocular Movements: Extraocular movements intact. Pupils: Pupils are equal, round, and reactive to light. Cardiovascular: Rate and Rhythm: Normal rate and regular rhythm. Pulmonary: Effort: Pulmonary effort is normal. Abdominal: General: Abdomen is flat. Skin: General: Skin is warm. Neurological: General: No focal deficit present. Mental Status: She is alert. Estimated body mass index is 57.16 kg/m??? as calculated from the following: Height as of this encounter: 1.651 m (5' 5 ). Weight as of this encounter: 156 kg (343 lb 7.6 oz). Active Inpatient Problems Principal Problem: Acute systolic heart failure (CMS/HCC) Assessment and Plan Atrial fibrillation with RVR- [id number] score 4 - currently on metoprolol - resumed eliquis New onset of congestive heart failure/heart failure -ejection fraction, 40% TTE 05/06/23 NYHA class II - underwent cardiac cath 05/07 - Continue aspirin, losartan, Lopressor, Farxiga Hypokalemia/Hypomagnesemia - replace as needed Essential hypertension - cont home meds DMII noninsulin dependent - on metformin at home - currently on iss Thrombocytopenia - monitor Osteoarthritis - stable Obstructive sleep apnea with non compliance to CPAP Obese class 3 - BMI 57 VTE Prophylaxis: Eliquis Scheduled Meds apixaban, 5 mg, oral, BID aspirin, 81 mg, oral, Daily with breakfast bumetanide, 1 mg, oral, Daily dapagliflozin propanediol, 10 mg, oral, Daily insulin aspart, 0-20 Units, subcutaneous, TID with meals And insulin aspart, 0-20 Units, subcutaneous, Nightly losartan, 50 mg, oral, Daily magnesium oxide, 400 mg, oral, BID magnesium sulfate in D5W, 1 g, intravenous, q1h metoprolol tartrate, 5 mg, intravenous, Once metoprolol tartrate, 25 mg, oral, BID spironolactone, 25 mg, oral, Daily Pertinent Investigations Hematology: Results from last 7 days Lab Units 05/07/23 04205/06/23 0542 05/05/23 2358 WBC AUTO 10*3/uL 4.25 -- 5.73 HEMOGLOBIN g/dL 12.4 -- 13.0 HEMATOCRIT % 38.3 -- 39.9 MCV fL 88.2 -- 88.7 PLATELETS AUTO 10*3/uL 121* 121* 139* Chemistry: Results from last 7 days Lab Units 05/08/23 0423 05/07/23 0426 05/06/23 0542 SODIUM mmol/L 139 138 138 POTASSIUM mmol/L 3.5 3.4* 3.6 CHLORIDE mmol/L 99 98 101 CO2 mmol/L 34* 32* 27 BUN mg/dL 18 14 13 CREATININE mg/dL 0.90 0.86 0.74 GLUCOSE mg/dL 94 110* 101* MAGNESIUM mg/dL 1.3* -- 1.5* CALCIUM mg/dL 9.9 9.7 9.7 Results from last 7 days Lab Units 05/06/23 0542 AST U/L 42* ALT U/L 24 ALK PHOS U/L 41 BILIRUBIN TOTAL mg/dL 1.3* Results from last 7 days Lab Units 05/08/23 0715 05/07/23 2053 05/07/23 1151 05/06/23 2104 05/06/23 1706 05/06/23 1122 POCT GLUCOSE mg/dL 118* 125* 101 105 116* 131* Historical Values: (Includes values prior to this admission) Lab Results Component Value Date TSH 5.84 (H) 05/06/2023 FREET4 1.08 05/06/2023 No results found for: [id number] , IRON , TIBC , C3 , C4 , ILSA , CANCA , ASO , PSA , CEA , CA125 , CA199 , AFP , CA153 Imaging Cardiac catheterization Addendum: Cardiovascular Laboratory Report FINAL IMPRESSIONS: Vasospasm of the right coronary, likely iatrogenic due to catheter and/or wire, resolved with intracoronary nitroglycerin Otherwise nonobstructive coronary arteries angiographically Mildly reduced global left ventricular systolic function by noninvasive imaging Mildly elevated right-sided heart pressures and wedge pressure Normal transpulmonary gradient along with elevated wedge consistent with postcapillary or pulmonary venous hypertension Normal cardiac output/cardiac index Pre- and intraprocedural tachyarrhythmias RECOMMENDATIONS: Aggressive cardiovascular factor modification Mildly elevated filling pressures particularly wedge, consider diuresis, strict inputs and outputs and daily weights Guideline directed medical therapy for heart failure with midrange ejection fraction (H (more content not included)...[facility] 05-07-2023 NoteCardiovascular Laboratory Report FINAL IMPRESSIONS: Vasospasm of the right coronary, likely iatrogenic due to catheter and/or wire, resolved with intracoronary nitroglycerin Otherwise nonobstructive coronary arteries angiographically Mildly reduced global left ventricular systolic function by noninvasive imaging Mildly elevated right-sided heart pressures and wedge pressure Normal transpulmonary gradient along with elevated wedge consistent with postcapillary or pulmonary venous hypertension Normal cardiac output/cardiac index Pre- and intraprocedural tachyarrhythmias RECOMMENDATIONS: Aggressive cardiovascular factor modification Mildly elevated filling pressures particularly wedge, consider diuresis, strict inputs and outputs and daily weights Guideline directed medical therapy for heart failure with midrange ejection fraction (HFmrEF) should include a beta-kayli, RAAS inhibitor, an SGLT2 inhibitor and spironolactone Consider alternate etiologies for the patient's symptomatology namely pulmonary and or arrhythmia related Continue telemetry; consider 30-day event monitor and further investigations and management for the tachyarrhythmias as clinically appropriate Further recommendations deferred to the inpatient services PROCEDURES: Ultrasound-guided access to the right internal jugular vein, right heart catheterization, ultrasound-guided access to the left radial artery, bilateral selective coronary angiography METHODS: After risks, benefits, and alternatives were explained, written informed consent was obtained. The patient was prepped and draped in usual sterile fashion over the right neck and left radial regions. Using 1% lidocaine solution, local infiltration anesthesia was achieved. Using a modified Seldinger technique, a micropuncture kit, and under ultrasound guidance, access to the right internal jugular vein was obtained. A 6 Bel[place]ian 11 cm sheath was inserted without difficulty. Right heart catheterization was performed using a Manning catheter via the venous sheath. Pressures were measured in the right atrium, right ventricle, pulmonary artery, and pulmonary capillary wedge positions. Oxygen saturations were obtained and cardiac output/cardiac index was calculated using the modified Galina principle. The Manning catheter was removed. The jugular sheath was removed with application of manual pressure to achieve optimal hemostasis. Local infiltration anesthesia was achieved of the left wrist. Using a micropuncture kit, and under ultrasound-guided access of the left radial artery was obtained. A 6 [place]ian glide sheath was inserted without difficulty. Difficulty advancing the De La Vega wire was encountered; therefore this was removed. Angiography was performed via the JR catheter. This revealed tortuosity. A soft angled Glidewire was used to traverse the tortuosity. Bilateral selective coronary angiography was performed using JL4 and JR4 catheters. Given a stenotic appearance of the mid right coronary artery with a smooth outline, coronary spasm was suspected. A 6 Belarusian JR4 guide catheter was advanced in over a J-wire. Intracoronary nitroglycerin was administered. Repeat imaging showed resolution of the lesion . The guide catheter was removed. After reviewing the images, it was elected to conclude the procedure. All catheters were removed. The radial sheath was removed with application of a TR band per protocol to achieve optimal hemostasis. Overall the patient tolerated the procedure well. There were no overt complications. He was to be transferred to the holding area in stable condition. FINDINGS: Hemodynamics: RA 10 RV 42/1, 11 PA 42/8 [25] PCWP 16 TPG 9 AO 138/81 [107] Cardiac output /cardiac index 8.29/3.29 AO sat /PA sat 95/71% LEFT VENTRICULOGRAPHY: This was not performed; ejection fraction is 40% by noninvasive imaging CORONARY ARTERIES: Left main coronary artery: This arises from the left coronary cusp, it bifurcates into the left anterior descending and left circumflex coronary arteries it is free of significant stenosis. Left anterior descending coronary artery: This is angiographically nonobstructive with mild luminal irregularities. Left circumflex coronary artery: This is angiographically nonobstructive. Right coronary artery: This arises from the right coronary cusp, it is a dominant vessel giving rise to the posterior descending and posterolateral branches. Baseline imaging shows a smooth, short segment lesion in the mid vessel. This resolves after intracoronary nitroglycerin. INDICATIONS: Systolic dysfunction, exertional shortness of breath, wide-complex tachycardiaUnSelect [facility] Note Patient: Fern Cardoso Procedure Information Date/Time: 05/07/23 1700 Procedures: Coronary angiography Right heart cath Location: [facility] [place] [address] / [facility] (Cath) Providers: Regina Stark MD Clinical information reviewed: Allergies Meds Physical Exam Airway Mallampati: III TM distance: >3 FB Neck ROM: limited Cardiovascular Rhythm: regular Rate: normal Dental Pulmonary Breath sounds clear to auscultation Abdominal (+) obese Anesthesia Plan (Conscious sedation) Anesthetic plan and risks discussed with patient. Use of blood products discussed with patient who. Additional Equipment Requests Regina Stark MD, MPH, [facility], [facility], [facility] Interventional Cardiology Pager Email: [email or web address] Medical Special[facility]01-19-2024 NoteCardiology Progress Note Subjective Subjective: Patient seen and examined. No chest pain or shortness of breath. Objective Objective: Patient Vitals for the past 24 hrs: BP Temp Temp src Pulse Resp SpO2 Weight 05/07/23 1040 137/64 -- -- 81 20 99 % -- 05/07/23 0833 141/64 36.6 ???C (97.9 ???F) Temporal 91 16 94 % -- 05/07/23 0806 -- -- -- -- -- 96 % -- 05/07/23 0440 134/76 36.5 ???C (97.7 ???F) Temporal 82 17 93 % (!) 161 kg (355 lb 6.1 oz) 05/07/23 0000 125/67 36.4 ???C (97.5 ???F) Temporal 72 19 96 % -- 05/06/23 2142 -- -- -- 91 -- -- -- 05/06/232019 129/66 36.4 ???C (97.5 ???F) Temporal 92 25 94 % -- 05/06/23 1835 109/59 -- -- 90 21 96 % -- 05/06/23 1724 127/60 36.4 ???C (97.5 ???F) Temporal 87 22 97 % -- 05/06/23 1251 (!) 133/46 36.6 ???C (97.9 ???F) Temporal 76 20 92 % -- Physical Examination: GENERAL: AOx3, in no acute distress. Obese HEAD: Atraumatic, normocephalic. EYES: EOMI. NECK: No JVD present. CARDIAC: RRR. No murmur, rubs, or gallops. RESPIRATORY: CTAB, no increased effort of breathing. ABDOMEN: Soft, nontender, nondistended. EXTREMITIES: Trace bilateral lower extremity edema, peripheral pulses are 2+ bilaterally. NEURO: No focal deficits Relevant Lab Results Encounter Date: 05/05/23 ECG 12 lead Result Value Ventricular Rate 81 Atrial Rate 81 OK Interval 208 QRS DURATION 178 QT Interval 442 QTC CALCULATION(BAZETT) 513 P [place] 34 R-[place] -48 T Wave [place] 101 Impression Normal sinus rhythm Left axis deviation Left bundle branch block Abnormal ECG When compared with ECG of 13-FEB-2013 09:22, No significant change was found Confirmed by Jose Luis Cronin ([id number]) on 05/05/2023 9:15:31 PM Lab Results Component Value Date TROPONINI 0.01 05/06/2023 Complete Echo (TTE) w/wo Imaging Agent, Strain, 3D, Bubble Study Result Date: 05/06/2023 1 1 [facility] [address] [place] [address] [phone] (fax) Echocardiogram-[facility] Name: FERN CARDOSO Study Date: 05/06/2023 08:24 AM B/P: 131 mmHg/56 mmHg HR: 80 bpm Date of : 1960 Location: [facility] Height: 65 in. Age: 62 year(s) Patient Room: 3131 Weight: 352 lb. Gender: Female Patient Status: InPt BSA: 2.52 m2 Indication: Dyspnea, Abnormal EKG Examination: Echocardiogram (Complete), Lumason Contrast Image Quality: Fair Patient Consent: Procedure explained to patient Exam Details Contrast: I.V. dose of Lumason Conclusions Left Ventricle: The left ventricle is normal size. Global left ventricular systolic function is mildly reduced. The EF is 40 % visually. Left ventricular wall thickness is moderately increased. The septum is abnormal in its motion; maybe due to bundle branch block. Grade 2, moderate diastolic dysfunction (pseudonormalized LV filling pattern). Right Ventricle: The right ventricle is normal in size. Normal right ventricular systolic function. Left Atrium: The left atrium is moderately enlarged. Pericardium: Anterior free space is seen; effusion versus fat pad. Overall Conclusions: Due to suboptimal imaging Lumason contrast was administered for opacification and better delineation of endocardial borders. No significant valvular abnormalities Measurements Left Ventricle Label Value Normal Value LVOTd 2 cm (18cm - 20cm) LVOT VTI 29 cm (18cm - 22cm) LVOT PGmax 9 mmHg LVEF visual 40 % LVDd, 2D 5 cm (3.9cm - 5.3cm) LVDs, 2D 3.67 cm (2.1cm - 4cm) IVSd, 2D 1.4 cm (0.6cm - 1.1cm) LVPWd, 2D 1.46 cm (0.6cm - 0.9cm) LV Mass, 2D ASE 300.61 g LV Mass Index, 2D ASE 119.3 g/m?? (44g/m?? - 88.4g/m??) RWT, MM 0.58 (0 - 0.42) LVSVI, 2D 24.2 ml/m2 LVOT PGmean 5 mmHg LVSV_LVOT 91 ml Right Ventricle Label Value Normal Value RVDd, 2D 3.84 cm (1.9cm - 3.8cm) TAPSE 3 cm Left Atrium Label Value Normal Value LA Volume, BP 116 ml (22ml - 52ml) LADs, 2D 5.5 cm (2.7cm - 3.8cm) LAESV index, BP 46 ml/m?? Right Atrium Label Value Normal Value RA Area 21.8 cm?? Aortic Valve Label Value Normal Value AV DVI 0.75 AV VTI 38 cm Mitral Valve Label Value Normal Value MV E Vmax 1.21 m/s MV A Vmax 1.14 m/s MV E/A 1.06 MV E/E' lateral 18.8 MV E' lateral 0.06 m/s Aorta Label Value Normal Value AoAsc 2.9 cm AoRoot, 2D 2.8 cm (1.4cm - 3.8cm) Valvular Assessment LVOT 0.7 - 1.1 m/sec Aortic Valve 1.0 - 1.7 m/sec Mitral Valve 0.6 - 1.3 m/sec Tricuspid Valve 0.3 - 0.7 m/sec Pulmonic Valve 0.6 - 0.9 m/sec Regurgitation No Trivial Trivial No Stenosis No No Max Velocity 1.50m/sec 1.99 m/s 1.21 m/sec 1.37 m/s Max Gradient 16.00 mmHg 8.00 mmHg Mean Gradient 9.00 mmHg Valve Area 2.4 cm?? Findings Left Ventricle: The left ventricle is normal size. Global left ventricular systolic function is mildly reduced. The EF is 40 % visually. Left ventricular wall thickness is moderately increased. The septum is abnormal in its motion; maybe due to bundle branch block. Grade 2, moderate diastolic dysfunction (pseudonormalized LV filling patte (more content not included)...[facility] 05-07-2023 NoteHospital Medicine Daily Progress Note - 05/07/2023 7:58 AM; Room: [facility] Admission: 05/05/2023 7:10 PM; Length of stay: 2 days THE HOSPITALIST TEAM PREFERS TO USE [employer] CHAT FOR COMMUNICATION 7AM-7PM. IF I DO NOT RESPOND WITHIN 15 MINUTES, PLEASE PAGE ME/CALL THROUGH THE MARINE OPERATIONS COORDINATOR. FROM 7PM-7AM, PLEASE PAGE [phone](COVR) Code Status: No Order Barriers to Discharge: cardiac cath Expected Discharge Date: 05/08 Discharge Destination: TBD Overview Patient is seen for evaluation and management of Afib with RVR and HFrEF. Subjective No acute overnight events per staff. Physical Exam Visit Vitals BP 134/76 Pulse 82 Temp 36.5 ???C (97.7 ???F) (Temporal) Resp 17 Intake/Output Summary (Last 24 hours) at 05/07/2023 0758 Last data filed at 05/06/2023 2300 Gross per 24 hour Intake 1134.58 ml Output 2150 ml Net -1015.42 ml Physical Exam Constitutional: Appearance: She is obese. HENT: Head: Normocephalic. Eyes: Pupils: Pupils are equal, round, and reactive to light. Cardiovascular: Rate and Rhythm: Normal rate. Rhythm irregular. Pulmonary: Effort: Pulmonary effort is normal. Breath sounds: Normal breath sounds. Abdominal: General: Bowel sounds are normal. Palpations: Abdomen is soft. Musculoskeletal: General: Normal range of motion. Cervical back: Normal range of motion. Right lower leg: No edema. Left lower leg: No edema. Skin: General: Skin is warm and dry. Capillary Refill: Capillary refill takes less than 2 seconds. Neurological: Mental Status: She is alert and oriented to person, place, and time. Mental status is at baseline. Estimated body mass index is 59.14 kg/m??? as calculated from the following: Height as of this encounter: 1.651 m (5' 5 ). Weight as of this encounter: 161 kg (355 lb 6.1 oz). Active Inpatient Problems Principal Problem: Acute systolic heart failure (CMS/HCC) Assessment and Plan 62 year-old female who is transferred from [facility] with chief complaint of sudden onset of shortness of breath and was found to been atrial fibrillation with RVR that was treated with Cardizem drip, further workup with echocardiogram shows ejection fraction of 40%. transferred to [facility] for further cardiac evaluation. Assessment: Atrial fibrillation with RVR- [id number] score 4 New onset of congestive heart failure/heart failure -ejection fraction, 40% TTE 05/06/23 NYHA class II Hypokalemia/Hypomagnesemia Prolonged QTc Essential hypertension Hypothyroidism Diabetes mellitus type 2 Thrombocytopenia Osteoarthritis Obstructive sleep apnea with non compliance to CPAP Morbid Obesity Plan: Continue telemetry monitoring, continue IV heparin for anticoagulation, monitor platelets closely while patient is on anticoagulation, holding home dose of Eliquis. For heart failure,continue goal-directed medical therapy with aspirin, losartan, metoprolol tartrate, Farxiga, continue diuresis with Lasix 40 mg twice daily, monitor strict intake and output and daily weights,cardiac cath is planned for today, cardiology is following, For diabetes mellitus continue insulin sliding scale, monitor Accu-Cheks. For essential hypertension, continue antihypertensive therapy as noted above, monitor blood pressure closely. Replace electrolytes as needed. Outpatient for continued CPAP follow up. VTE Prophylaxis: IV heparin Scheduled Meds aspirin, 81 mg, oral, Daily with breakfast dapagliflozin propanediol, 10 mg, oral, Daily furosemide, 40 mg, intravenous, q12h RAMA insulin aspart, 0-20 Units, subcutaneous, TID with meals And insulin aspart, 0-20 Units, subcutaneous, Nightly losartan, 50 mg, oral, Daily magnesium oxide, 400 mg, oral, BID metoprolol tartrate, 5 mg, intravenous, Once metoprolol tartrate, 25 mg, oral, BID heparin, 0-28 Units/kg/hr, Last Rate: 13 Units/kg/hr (05/07/23 0135) Pertinent Investigations Hematology: Results from last 7 days Lab Units 05/07/23 04205/06/23 0542 05/05/23 2358 WBC AUTO 10*3/uL 4.25 -- 5.73 HEMOGLOBIN g/dL 12.4 -- 13.0 HEMATOCRIT % 38.3 -- 39.9 MCV fL 88.2 -- 88.7 PLATELETS AUTO 10*3/uL 121* 121* 139* Chemistry: Results from last 7 days Lab Units 05/07/23 04205/06/23 0542 05/05/23 2112 SODIUM mmol/L 138 138 138 POTASSIUM mmol/L 3.4* 3.6 3.8 CHLORIDE mmol/L 98 101 101 CO2 mmol/L 32* 27 30 BUN mg/dL 14 13 13 CREATININE mg/dL 0.86 0.74 0.69 GLUCOSE mg/dL 110* 101* 90 MAGNESIUM mg/dL -- 1.5* 1.4* CALCIUM mg/dL 9.7 9.7 9.5 Results from last 7 days Lab Units 05/06/23 0542 AST U/L 42* ALT U/L 24 ALK PHOS U/L 41 BILIRUBIN TOTAL mg/dL 1.3* Results from last 7 days Lab Units 05/06/23 2104 05/06/23 1706 05/06/23 1122 05/06/23 0737 05/05/23 2154 POCT GLUCOSE mg/dL 105 116* 131* 100 87 Historical Values: (Includes values prior to this admission) Lab Results Component Value Date TSH 5.84 (H) 05/06/2023 FREET4 1.08 05/06/19 (more content not included)...[facility]01-18-2024 NoteHospital Medicine Daily Progress Note - 05/06/2023 9:19 AM; Room: [address] [place] [address] Admission: 05/05/2023 7:10 PM; Length of stay: 1 days THE HOSPITALIST TEAM PREFERS TO USE [employer] CHAT FOR COMMUNICATION 7AM-7PM. IF I DO NOT RESPOND WITHIN 15 MINUTES, PLEASE PAGE ME/CALL THROUGH THE MARINE OPERATIONS COORDINATOR. FROM 7PM-7AM, PLEASE PAGE [phone](COVR) Code Status: No Order Barriers to Discharge: On IV heparin, echo cardio eval, Expected Discharge Date: 05/08 Discharge Destination: TBD Overview Patient is seen for evaluation and management of Afib with RVR and HFrEF. Subjective patient is seen and evaluated at bedside, she is alert and awake, sitting comfortably on the chair. Denies any shortness of breath or chest pain. Physical Exam Visit Vitals BP 131/56 Pulse 81 Temp 36.2 ???C (97.2 ???F) (Temporal) Resp 17 Intake/Output Summary (Last 24 hours) at 05/06/2023 0919 Last data filed at 05/06/2023 0432 Gross per 24 hour Intake 305 ml Output 1800 ml Net -1495 ml Physical Exam Constitutional: Appearance: She is obese. HENT: Head: Normocephalic. Eyes: Pupils: Pupils are equal, round, and reactive to light. Cardiovascular: Rate and Rhythm: Normal rate. Rhythm irregular. Pulmonary: Effort: Pulmonary effort is normal. Breath sounds: Normal breath sounds. Abdominal: General: Bowel sounds are normal. Palpations: Abdomen is soft. Musculoskeletal: General: Normal range of motion. Cervical back: Normal range of motion. Right lower leg: No edema. Left lower leg: No edema. Skin: General: Skin is warm and dry. Capillary Refill: Capillary refill takes less than 2 seconds. Neurological: Mental Status: She is alert and oriented to person, place, and time. Mental status is at baseline. Estimated body mass index is 58.62 kg/m??? as calculated from the following: Height as of this encounter: 1.651 m (5' 5 ). Weight as of this encounter: 160 kg (352 lb 4.7 oz). Active Inpatient Problems Active Problems: There are no active Hospital Problems. Assessment and Plan 62 year-old female who is transferred from [facility] with chief complaint of sudden onset of shortness of breath and was found to been atrial fibrillation with RVR that was treated with Cardizem drip, further workup with echocardiogram shows ejection fraction of 40%. transferred to [facility] for further cardiac evaluation. Assessment: Atrial fibrillation with RVR- [id number] score 3 New onset of congestive heart failure/heart failure with reduced ejection fraction Hypomagnesemia Prolonged QTc Essential hypertension Hypothyroidism Diabetes mellitus type 2 Thrombocytopenia Osteoarthritis Obstructive sleep apnea with non compliance to CPAP Morbid Obesity Plan: Continue telemetry monitoring, continue IV heparin for anticoagulation, monitor platelets closely while patient is on anticoagulation, holding home dose of Eliquis. For heart failure, follow up on echocardiogram, continue goal-directed medical therapy with aspirin, losartan, metoprolol tartrate, Farxiga, continue diuresis with Lasix 40 mg twice daily, monitor strict intake and output and daily weights For diabetes mellitus continue insulin sliding scale, monitor Accu-Cheks. For essential hypertension, continue antihypertensive therapy as noted above, monitor blood pressure closely. Replace electrolytes as needed. Outpatient for continued CPAP follow up. VTE Prophylaxis: IV heparin Scheduled Meds aspirin, 81 mg, oral, Daily with breakfast dapagliflozin propanediol, 10 mg, oral, Daily furosemide, 40 mg, intravenous, q12h RAMA insulin aspart, 0-20 Units, subcutaneous, TID with meals And insulin aspart, 0-20 Units, subcutaneous, Nightly losartan, 50 mg, oral, Daily magnesium oxide, 400 mg, oral, BID metoprolol tartrate, 5 mg, intravenous, Once metoprolol tartrate, 25 mg, oral, BID heparin, 0-28 Units/kg/hr, Last Rate: 14 Units/kg/hr (05/06/23 0638) Pertinent Investigations Hematology: Results from last 7 days Lab Units 05/06/23 0542 05/05/23 2358 WBC AUTO 10*3/uL -- 5.73 HEMOGLOBIN g/dL -- 13.0 HEMATOCRIT % -- 39.9 MCV fL -- 88.7 PLATELETS AUTO 10*3/uL 121* 139* Chemistry: Results from last 7 days Lab Units 05/06/23 0542 05/05/23 2112 SODIUM mmol/L 138 138 POTASSIUM mmol/L 3.6 3.8 CHLORIDE mmol/L 101 101 CO2 mmol/L 27 30 BUN mg/dL 13 13 CREATININE mg/dL 0.74 0.69 GLUCOSE mg/dL 101* 90 MAGNESIUM mg/dL 1.5* 1.4* CALCIUM mg/dL 9.7 9.5 Results from last 7 days Lab Units 05/06/23 0542 AST U/L 42* ALT U/L 24 ALK PHOS U/L 41 BILIRUBIN TOTAL mg/dL 1.3* Results from last 7 days Lab Units 05/06/23 0737 05/05/23 2154 POCT GLUCOSE mg/dL 100 87 Historical Values: (Includes values prior to this admission) Lab Results Component Value Date TSH 5.84 (H) 05/06/2023 FREET4 1.08 05/06/2023 No results found for: [id number] , IRON , TIBC , C3 , C4 , ILSA , CANCA , ASO , P (more content not included)...[facility] 05-05-2023 NoteHospital Medicine History and Physical 05/05/2023 9:20 PM THE HOSPITALIST TEAM PREFERS TO USE [employer] CHAT FOR COMMUNICATION 7AM-7PM. IF I DO NOT RESPOND WITHIN 15 MINUTES, PLEASE PAGE ME/CALL THROUGH THE MARINE OPERATIONS COORDINATOR. FROM 7PM-7AM, PLEASE PAGE [phone](COVR) Chief Complaint No chief complaint on file. History of Present Illness Fern Cardoso is an 62 y.o. female admitted from [facility] as a direct admit. She has history of hypertension diabetes obstructive sleep apnea not using CPAP or BiPAP he was admitted at [facility] with chief complaint of sudden onset of shortness of breath. According to patient she wake up in the morning 2 days back very short of breath denies any chest pain heart palpitation dizziness syncope weakness no increased cough or expectoration and no fever chills cough drops with the family to [place] [facility] with she was noted to be in A-fib with RVR which was treated with Cardizem IV with control of heart rate but remained atrial fibrillation she underwent a troponin evaluation which according to the note were within normal range she had a chest x-ray done and D-dimer which showed pulmonary vascular congestion due to elevated D-dimers she underwent CT of the chest which showed no pulmonary embolus but mild pulmonary alveolar and interstitial edema with small bilateral pleural effusions and cardiomegaly she had bilateral enlarged left axillary lymph node which are nonspecific. The EKG shows A-fib and left bundle branch block pattern. Her labs shows hemoglobin at 11.5 hematocrit 37.1 platelet count 121 her creatinine was 0.87 with GFR more than 60 BNP was 659 influenza and COVID serology was negative TSH was mildly elevated she had echocardiogram done which shows concentric left ventricular hypertrophy her ejection fraction was 40% and had left ventricular systolic dysfunction she has severely dilated left atrium very right-sided pressures within normal range. 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 She is independent in heractivities of daily living denies use of any assistive device for ambulation and denies any recurrent falls. Review of System and Physical Exam Temp: [36.9 ???C (98.5 ???F)] 36.9 ???C (98.5 ???F) Heart Rate: [83] 83 Resp: [22] 22 BP: (148)/(75) 148/75 Physical Exam Vitals reviewed. Constitutional: Appearance: Normal appearance. She is obese. HENT: Head: Normocephalic and atraumatic. Right Ear: Tympanic membrane, ear canal and external ear normal. Left Ear: Tympanic membrane, ear canal and external ear normal. Nose: Nose normal. Mouth/Throat: Mouth: Mucous membranes are moist. Pharynx: Oropharynx is clear. Eyes: Extraocular Movements: Extraocular movements intact. Conjunctiva/sclera: Conjunctivae normal. Pupils: Pupils are equal, round, and reactive to light. Neck: Comments: No JVD no thyromegaly no bruit Cardiovascular: Rate and Rhythm: Normal rate and regular rhythm. Pulmonary: Effort: Pulmonary effort is normal. Breath sounds: Normal breath sounds. Abdominal: General: Abdomen is flat. Bowel sounds are normal. Palpations: Abdomen is soft. Musculoskeletal: General: Normal range of motion. Cervical back: Normal range of motion and neck supple. Skin: General: Skin is warm and dry. Capillary Refill: Capillary refill takes less than 2 seconds. Neurological: General: No focal deficit present. Mental Status: She is alert and oriented to person, place, and time. Mental status is at baseline. Psychiatric: Mood and Affect: Mood normal. Review of Systems Constitutional: Negative for activity change, appetite change, chills, diaphoresis, fatigue, fever and unexpected weight change. HENT: Negative. Eyes: Negative. Respiratory: Negative. Cardiovascular: Negative. Endocrine: Negative. Genitourinary: Negative. Musculoskeletal: Negative. Allergic/Immunologic: Negative. Neurological: Negative. Hematological: Negative. Psychiatric/Behavioral: Negative. Problem List There are no problems to display for this patient. Assessment and Plan Atrial fibrillation with RVR: CHADS2 DS 2 vascular score 3 ,currently normal sinus rhythm will repeat TSH and free T4 keep potassium around 4 and magnesium around 2 continue telemetry will repeat troponins x 3 IV metoprolol will hold direct oral anticoagulation and consider switching her to IV heparin will discuss with cardiology if plan for left heart cath we will retrieve copy of echo from [facility] follow-up with cardiology New onset congestive heart failure/HFrEF CHF core measures in place metoprolol Cozaar diuretics and add Farxiga serial electrolytes creatinine reduced ejection fraction would need left heart cath to rule out ischemic heart disease Hypertension blood pressure control as above suspect underlying obstructive sleep apnea discussed with patient about follow-up with her P (more content not included)...[facility]11-17-2023 Evaluation note* Encounter Date Diagnosis Assessment Notes Treatment Notes Treatment Clinical Notes Feb, Contact with and (suspected) exposure to covid-19 (ICD-10 - Z20.822) Feb, COVID-19 (ICD-10 - U07.1) Rapid COVID test performed in office today. Advised patient that test was positive. Influenza A/B test negative. Instructed patient to isolate per CDC guidelines for 5 days from symptom onset, mask 5 days following. May return to work/activities outside home after isolation period as long as symptoms are improving and has been afebrile for 24 hours without use of antipyretic. Will send in rx of prednisone and tessalon perles to use as directed. Advised patient that treatment of COVID is with viral supportive care, OTC cold medications as directed, Tylenol as needed for body aches/fever. Increase fluids and rest. Encouraged use of cool mist humidifier. Follow-up with PCP to advise of positive result and further management. Immediate eval for SOB, difficulty, chest pain, fevers that do not break with antipyretic or any other concerning symptoms as reviewed on patient education handout. Patient verbalizes understanding and is agreeable to treatment plan. Patient left in stable condition Rhapso Other Evaluation noteNo InformationNort TaxiPixi Other History general Narrative - Reported* Type Description Date Medical History enlarged heart Medical History Arthritis Medical History Blood clots Medical History left TKA superficial wound infec tion Medical History diabetes mallitus Surgical History knee replacement left Surgical History vein ligation Surgical History hysterectomy Surgical History right mastectomy Surgical History wisdom teeth Surgical History C section Surgical History right knee arthroplasty 05/07 Hospitalization History see above Rhapso Other Summary Purpose Family History No Family History Records FoundNo Family History Records FoundNo Family History Records FoundNo Family History Records FoundNo Family History Records Found Advance Directives No Advanced Directives Records FoundNo Advanced Directives Records FoundNo Advanced Directives Records FoundNo Advanced Directives Records FoundNo Advanced Directives Records Found Additional Source Comments INFORMATION SOURCE (unrecogn ized section and content) DATE CREATED AUTHOR 08/28/2018 [facility] DATE CREATED AUTHOR AUTHOR'S ORGANIZ ATION 05/07/2021 [facility] DATE CREATED AUTHOR AUTHOR'S ORGANIZ ATION 09/19/2021 [facility] DATE CREATED AUTHOR AUTHOR'S ORGANIZ ATION [facility]/27/2022 [facility] DATE CREATED AUTHOR AUTHOR'S ORGANIZ ATION 06/20/2023 [facility] REASON FOR VISIT (unrecogniz ed section and content) COUGH//SORE THROAT//FATIGUER EFILLRefillUT - D/C 05/11messagemessage FOR RECORDS PERTAINING TO PATIENTS WHO ARE OR HAVE BEEN ENROLLED IN A CHEMICAL DEPENDENCY/SUBSTANCEABUSE PROGRAM, SOME INFORMATION MAY BE OMITTED. This clinical summary was aggregated from multiple sources. Caution should be exercised in using it in the provision of clinical care. This summary normalizes information from multiple sources, and as a consequence, information in this document may materially change the coding, format and clinical context of patient data. In addition, data may be omitted in some cases. CLINICAL DECISIONS SHOULD BE BASED ON THE PRIMARY CLINICAL RECORDS. [facility] [employer] [facility]. provides no warranty or guarantee of the accuracy or completeness of information in this document.
--- NOTE | 2023-06-24 10:14 | CA_ITS ---
Patient Name: FERN CARDOSO MR#: [id number] : 1960 Exam Date: 06/24/2023 Ordering Doctor: NICOLASA ROSE ECHOCARDIOGRAM REPORT PROCEDURE: CA ECHO DOPPLER COMPLETE INDICATIONS: Paroxysmal atrial fibrillation COMPARISON: None. DESCRIPTION: COMPLETE ECHOCARDIOGRAM Real-time transthoracic echocardiography with 2D, M-mode, spectral and color flow Doppler performed. QUALITY: Technical quality was good. LEFT VENTRICLE: Normal chamber size. Mild to moderately increased left ventricular wall thickness. LV EF: Global left ventricular systolic function is normal. Visual estimation of left ventricular ejection fraction is 60-65%. Abnormal septal motion; likely due to bundle branch block. DIASTOLIC: Diastolic function is indeterminate. ATRIAL SEPTUM: Inadequately seen. LEFT ATRIUM: Severe dilatation. RIGHT ATRIUM: Moderate dilatation. RIGHT VENTRICLE: Mild dilatation. Normal right ventricular systolic function. TRICUSPID VALVE: Normal mobility and thickness. No stenosis with trivial regurgitation. No evidence of pulmonary hypertension. RVSP 20mmHg MITRAL VALVE: Mildly thickened with normal mobility. No evidence of mitral valve stenosis. Mild mitral annular calcification. Trivial mitral regurgitation. AORTIC VALVE: Normal trileaflet appearance. Focal aortic cusp calcification. Normal leaflet mobility. No evidence of aortic valve stenosis. Trivial aortic regurgitation. AORTIC ROOT: Normal diameter and appearance. PULMONIC VALVE: Normal thickness and mobility. No stenosis. Trivial regurgitation. PERICARDIUM: No evidence of pericardial effusion. IVC: Collapses with inspirations. Normal size. CONCLUSION: 1. Global left ventricular systolic function is normal; visually estimated ejection fraction of 60 to 65% 2. Mild to moderate increased left ventricular wall thickness 3. The right ventricle is mildly dilated with normal systolic function 4. Biatrial enlargement 5. No significant valvular abnormalities Adult Echocardiography Procedure Report Left Ventricle LVEDD (3.7 - 5.6 cm): 4.33 cm LVESD (2.2 - 4.0 cm): 2.98 cm LVIVS thickness (0.6 - 1.2 cm): 1.51 cm LVPW thickness (0.5 - 1.0 cm): 1.07 cm e': 0.07 m/s E - e': 8.54 LVOT Max Gradient: 3.36 mm[Hg] LVOT Area (cm2): 0.92 m/s Peak Velocity (LVOT): 0.92 m/s Mean Velocity (LVOT): 0.66 m/s LVOT Diameter 2.08 cm Left Ventricular Ejection Fraction: 72.35 % Left Atrium LA Volume Index (2D A2C): 57.75 ml/m2 Left Atrium Systolic Dimension: 5.08 cm Mitral Valve MV E to A Ratio: 0.86 Mitral Valve A-Wave Peak Velocity: 0.65 m/s Mitral Valve E-Wave Peak Velocity: 0.56 m/s Right Ventricle RV Internal Diastolic Dimension: 4.46 cm Aorta AO Root Diam: 2.97 cm Ascending Ao Diam: 2.46 cm Aortic Valve AoV Area (Peak Dimas): 1.85 cm2, 1.85 cm2 AoV Area (VTI): 1.88 cm2, 1.88 cm2 Peak Velocity(Antegrade Flow): 1.68 m/s Peak Gradient(Antegrade Flow): 11.32 mm[Hg] Mean Velocity(Antegrade Flow): 1.23 m/s Mean Gradient(Antegrade Flow): 6.88 mm[Hg] Velocity Time Integral: 38.79 cm Tricuspid Valve Peak Velocity (Regurgitant Flow): 2.03 m/s, 1.67 m/s, 1.99 m/s Pulmonic Valve Mean Gradient: 3.73 mm[Hg], 4.29 mm[Hg] Mean Velocity: 0.90 m/s, 0.95 m/s Peak Velocity: 1.40 m/s Peak Gradient: 6.72 mm[Hg], 9.07 mm[Hg] Right Atrium Right Atrium Systolic Pressure: 61.62 ml, 61.62 ml Dictated by: Regina Stark M.D. on 06/24/2023 at 14:20 Approved by: Regina Stark M.D. on 06/24/2023 at 14:26
== END 2023-06-24 09:01 | disposition home or self-care (01) ==
LOC: CARD 09:03
PROVIDERS: PCP Family Medicine; Visit Provider Internal Medicine Cardiovascular Disease
DX: I48.0 Paroxysmal atrial fibrillation (principal)
CPT/HCPCS: 93306

== ENCOUNTER 2023-07-09 10:43 | Outpatient (OUT) | payer OTHER, SELFPAY ==
--- OUTSIDE RECORDS SUMMARY | 2023-07-09 10:52 | XMS_ITS | CCD ---
Author Organization [facility] Care Team Providers Care Operational Intelligence Analyst Name Role Phone Hans Whiteside Attending Unavailable [...] Unavailable Etta Gordon Unavailable Sindi Benjamin Unavailable ADENIKE SERRANO Referring Unavailable MATTY, GUILLERMO Admitting Unavailable HEAVEN DOWD Attending Unavailable JOSE LUIS CRONIN Attending Unavailable ASUNCION, LARA Attending Unavailable ASUNCION, LARA Attending Unavailable SANVIELKA ESCALONAAR Referring Unavailable SANAULLAH, SEBAS Referring Unavailable SANAULLAH, SEBAS Referring Unavailable JOHNATHON, JOAB Attending Unavailable Allergies Allergy Classification Reported Allergen(s) Allergy Type Date of Onset Reaction(s) Facility (2 sources) Penicillins; Translations: [PENICILLINS] Drug allergy (disorder) 02-07-20 13 [facility] Repository (6 sources) Ciprofloxacin Drug Allergy Comment:nausea and diarrhea [employer] Other (6 sources) Penicillin G Drug Allergy hives [employer] Other (6 sources) traMADol Drug Allergy 06-25-19 16 Unknown [employer] Other (6 sources) Substance with penicillin structure and antibacterial mechanism of action (substance) Drug allergy 12-23-19 13 Unknown [employer] Other (6 sources) patient allergy list reviewed by nurse or physicia Propensity to adverse reactions 11-11-19 19 Comment:Done [employer] Other (6 sources) TraMADol & Dietary Manage Prod *ANALGESICS - OPIOI Propensity to adverse reactions 06-25-19 16 Unknown [employer] Other (6 sources) Allergies Reconciled Propensity to adverse reactions Unknown [employer] Other Medications Current Medications Medication Drug Class(es) [...] Active -Hx Entry for 0 *Reorder from [employer] for eRx and Interaction Alerts* Feb, Active [...] a day for 0 *Pick strength-form from [employer] for eRX* Nov, Active take 1 tablet [...] oral every evening for 0 *Reorder from [employer] for eRx and Interaction Alerts* Feb, Active [...] Oral daily for 0 *Pick strength-form from [employer] for eRX* August, Active take 1 tablet [...] at bedtime for 0 *Pick strength-form from [employer] for eRX* Sep, Not-Taking/PRN take 1 tablet by mouth at bedtim e Amitriptyline HCl 25 MG TAKE 1 TABLET BY MOUTH AT BEDTIME for 90 Active Aspir-81 81 MG (3 sources) take 1 tablet by dayday once daily as needed Aspir-81 81 MG [...] Inhibitor Start: 06-09-2020 Toradol per 15 mg 21 Feb, 2021 30 mg Start: 11-13-2016 Toradol per 15 [...] Value Interpretation Reference Range Facility Office Visiton 06-30-2023 Follow-up visit [id number] Fern Cardoso 1960 F Date Provider Department Center 06/30/2023 LARA MARK Family History Problem Relation Age of Onset Heart attack Mother Stroke Mother Atrial fibrillation Father Heart attack Brother Stroke Brother Family Status - Relation Status Age at Mother Father Brother Level of Service:[address]64 [place] OFFICE/OUTPATIENT ESTABLISHED LOW MDM 20 MIN Normal [facility] Office Visiton 06-18-2023 Follow-up visit [id number] Fern Cardoso 1960 F Date Provider Department Center 06/18/2023 LARA MARK Family History Problem Relation Age of Onset Heart attack Mother Stroke Mother Atrial fibrillation Father Heart attack Brother Stroke Brother Family Status - Relation Status Age at Mother Father Brother Level of Service:36444 [place] OFFICE/OUTPATIENT ESTABLISHED MOD MDM 30 MIN Normal [facility] 06-08-2023 Follow-up visit [id number] Fern Cardoso 1960 F Date Provider Department Center 06/08/2023 YoanaJOSE LUIS HENRY ELAINE [facility] Family History Problem Relation Age of Onset Heart attack Mother Stroke Mother Atrial fibrillation Father Heart attack Brother Stroke Brother Family Status - Relation Status Age at Mother Father Brother Level of Service:33817 [place] OFFICE/OUTPATIENT NEW HIGH MDM 60 MINUTES [facility] Office Visiton 05-17-2023 Follow-up visit [id number] Fern Cardoso 1960 F Date Provider Department Center 05/17/2023 Yoko-REGINA STARK ELAINE [facility] Family History Problem Relation Age of Onset Heart attack Mother Stroke Mother Atrial fibrillation Father Heart attack Brother Stroke Brother Family Status - Relation Status Age at Mother Father Brother Level of Service:66398 [place] OFFICE/OUTPATIENT ESTABLISHED LOW MDM 20 MIN [facility] 36on 05-12-2023 36 Discharge date: 05/11/23 Call date: 05/12/23 Spoke with: patient HF Follow-up date: 05/17/23 Med reconciliation completed: yes Questions/Concerns: Home meds reviewe with pt. Pt asked about [place] paperwork that her company was to fax over to the 3rd floor for the discharging provider. Engineer will reach out to the Hospitalist team. Pt is aware of follow up appt. Engineer encouraged pt to monitor daily weights and notified pt where to find education on her AVS to refer to. [facility] Documentationon 05-12-2023 Documentation [id number] Fern Cardoso 1960 F Date Provider Department Center 05/12/2023 [facility]SY [facility] No family history on file Reason for Visit and Comments: HF inpatient satisfaction survey sent. [Other] [facility] Telephoneon 05-12-2023 Telephone [id number] Fern Cardoso 1960 F Date Provider Department Center 05/12/2023 SUSSY SOL[facility] No family history on file Reason for Visit and Comments: HF post discharge call [Other] Normal [facility] 30on 05-11-2023 30 Problem: Pain - Adul t Goal: Verbalizes/displays adequate comfort level or baseline comfort level Outcome: Progressing Problem: Safety - Adult Goal: Free from fall injury Outcome: Progressing Flowsheets (Taken 05/11/2023 0746) Free from fall injury: Assess patient frequently for physical needs Identify cognitive and physical deficits and behaviors that affect risk of falls Evans fall precautions as indicated by assessment Modify [...] alleviate retention as needed Discuss catheterization for senior care situations as appropriate The patient is Moderately Stable - Low risk of patient condition declining or worsening The patient's goals for the shift include comfort The clinical goals for the shift include safety Normal [facility] BASIC METABOLIC PANELon 04-20 Anion gap [Moles/Vol] 11 mmol/L Normal 7-20 [facility] Comment on above: Performed By: #### L [id number] #### [facility] ([facility]) [address] [place] [address] Calcium [Mass/Vol] 9.7 mg/dL Normal 8.6-10.3 [facility] Comment on above: Performed By: #### L [id number] #### [facility] ([facility]) [address] [place] [address] Chloride [Moles/Vol] 98 mmol/L Normal 98-107 [facility] Comment on above: Performed By: #### L [id number] #### [facility] ([facility]) [address] [place] [address] CO2 [Moles/Vol] 30 mmol/L Normal 21-31 [facility] Comment on above: Performed By: #### L [id number] #### [facility] ([facility]) [address] [place] [address] Creatinine [Mass/Vol] 0.80 mg/dL Normal 0.60-1.20 [facility] Comment on above: Performed By: #### L [id number] #### [facility] ([facility]) [address] [place] [address] GLOMERULAR FILTRATION RATE ML/MIN/1.73 SQ M.PREDICTED 83.8 mL/min/1.73m*2 Normal >60.0 [facility] Comment on above: Result Comment: [facility]???s estimated glomerular filtration rate (eGFR) will [...] group of individuals. Performed By: #### L [id number] #### [facility] ([facility]) [address] [place] [address] Glucose [Mass/Vol] 116 mg/dL High 70-100 [facility] Comment on above: Performed By: #### L [id number] #### [facility] ([facility]) [address] [place] [address] Potassium [Moles/Vol] 3.7 mmol/L Normal 3.5-5.1 [facility] Comment on above: Performed By: #### L [id number] #### [facility] ([facility]) [address] [place] [address] Sodium [Moles/Vol] 135 mmol/L Low 136-145 [facility] Comment on above: Performed By: #### L [id number] #### [facility] ([facility]) [address] [place] [address] Urea nitrogen [Mass/Vol] 17 mg/dL Normal 7-25 [facility] Comment on above: Performed By: #### L [id number] #### [facility] ([facility]) [address] [place] [address] UREA NITROGEN/CREATININE (MASS RATIO) IN SER/PLAS 21.3 Normal [facility] Comment on above: Performed By: #### L [id number] #### [facility] ([facility]) [address] [place] [address] CBCon 05-11-2023 Erythrocyte distribution width (RBC) [Ratio] 15.2 % High 11.5-15.0 [facility] Comment on above: Performed By: #### L [id number] ####[facility] ([facility])[address] [place] [address] ERYTHROCYTE MEAN CORPUSCULAR HEMOGLOBIN CONCENTRATION (G/DL) BY AUTOMATED 31.9 g/dL Low 32.0-35.0 [facility] Comment on above: Performed By: #### L [id number] ####[facility] ([facility])[address] [place] [address] Hematocrit (Bld) [Volume fraction] 40.7 % Normal 36.0-48.0 [facility] Comment on above: Performed By: #### L [id number] ####[facility] ([facility])[address] [place] [address] Hemoglobin (Bld) [Mass/Vol] 13.0 g/dL Normal 12.0-15.0 [facility] Comment on above: Performed By: #### L [id number] ####[facility] ([facility])[address] [place] [address] MCH (RBC) [Entitic mass] 28.4 pg Normal 27.0-33.0 [facility] Comment on above: Performed By: #### L [id number] ####[facility] ([facility])[address] [place] [address] MCV (RBC) [Entitic vol] 88.9 fL Normal 82.0-98.0 [facility] Comment on above: Performed By: #### L [id number] ####[facility] ([facility])[address] [place] [address] PLATELETS (10*3/UL) IN BLOOD AUTOMATED COUNT 107 10*3/uL Low 150-400 [facility] Comment on above: Performed By: #### L [id number] ####[facility] ([facility])[address] [place] [address] RBC (Bld) [#/Vol] 4.58 10*6/uL Normal 3.80-5.00 [facility] Comment on above: Performed By: #### L [id number] ####[facility] ([facility])[address] [place] [address] WBC (Bld) [#/Vol] 4.32 10*3/uL Normal 4.00-10.60 [facility] Comment on above: Performed By: #### L [id number] ####[facility] ([facility])[address] [place] [address] LIPID PANELon 05-11-2023 CHOL/HDL 4.8 mg/dL Normal [facility] Comment on above: Performed By: #### L [id number] #### [facility] ([facility]) [address] [place] [address] Cholesterol [Mass/Vol] 152 mg/dL Normal 120-200 [facility] Comment on above: Performed By: #### L [id number] #### [facility] ([facility]) [address] [place] [address] Magnesium [Mass/Vol] 77 mg/dL Normal 40-149 [facility] Comment on above: Result Comment: TRIG LYCERIDE REFERENCE RANGE: 20 YEARS AND OLDER CARDIOVASCULAR RISK LESS THAN 150 mg/dL LOW RISK 150 TO 199 mg/dL BORDERLINE RISK 200 mg/dL AND GREATER HIGH RISK Performed By: #### L [id number] #### [facility] ([facility]) [address] [place] [address] Magnesium [Mass/Vol] 105 mg/dL Normal 0-160 [facility] Comment on above: Performed By: #### L [id number] #### [facility] ([facility]) [address] [place] [address] Magnesium [Mass/Vol] 32 mg/dL Normal 23-92 [facility] Comment on above: Performed By: #### L [id number] #### [facility] ([facility]) [address] [place] [address] NON HDL CHOL. (LDL+VLDL) 120 Normal [facility] Comment on above: Performed By: #### L [id number] #### [facility] ([facility]) [address] [place] [address] TOTAL VLDL-C 15 mg/dL Normal 0-40 [facility] Comment on above: Performed By: #### L [id number] #### [facility] ([facility]) [address] [facility] [place] [address] MAGNESIUMon 05-11-2023 Magnesium [Mass/Vol] 1.7 mg/dL Low 1.9-2.7 [facility] Comment on above: Performed By: #### L [id number] #### [facility] ([facility]) [address] [place] [address] POCT GLUCOSE METER UNSOLICIT ED RESULTSon 05-11-2023 Glucose [Mass/Vol] 114 mg/dL High 70-105 Michael lorenzo [facility] Comment on above: Order Comment: Waive d Testing in the ED is performed under the ED CLIA certificate #[id number]. Result Comment: [email or web address] Performed By: #### L [id number] #### [facility] ([facility]) [address] [place] [address] 30on 05-10-2023 30 The patient is Moderately Stable - Low risk of patient condition declining or worsening The patient's goals for the shift include comfort The clinical goals for the shift include safety Normal [facility] 30 Problem: Pain - Adul t Goal: Verbalizes/displays adequate comfort level or baseline comfort level Outcome: Progressing Problem: Safety - Adult Goal: Free from fall injury Outcome: Progressing Flowsheets (Taken 05/10/2023 0848) Free from fall injury: Assess patient frequently for physical needs Identify cognitive and physical deficits and behaviors that affect risk of falls Evans fall precautions as indicated by assessment Educate [...] S/S of infection Recent Flowsheet Documentation Taken 05/10/202341 by Verónica Pope RN Incisions, wounds, or drain sites healing without sign and symptoms of infection: ADMISSION and DAILY: Assess and document risk factors for pressure ulcer development The patient is Moderately Stable - Low risk of patient condition declining or worsening The patient's goals for the shift include comfort The clinical goals for the shift include safety Normal [facility] BASIC METABOLIC PANELon 04-20 Anion gap [Moles/Vol] 8 mmol/L Normal 7-20 [facility] Comment on above: Performed By: #### L [id number] #### [facility] ([facility]) [address] [place] [address] Calcium [Mass/Vol] 9.7 mg/dL Normal 8.6-10.3 [facility] Comment on above: Performed By: #### L [id number] #### [facility] ([facility]) [address] [place] [address] Chloride [Moles/Vol] 99 mmol/L Normal 98-107 [facility] Comment on above: Performed By: #### L [id number] #### [facility] ([facility]) [address] [place] [address] CO2 [Moles/Vol] 33 mmol/L High 21-31 [facility] Comment on above: Performed By: #### L [id number] #### [facility] ([facility]) [address] [place] [address] Creatinine [Mass/Vol] 0.80 mg/dL Normal 0.60-1.20 [facility] Comment on above: Performed By: #### L [id number] #### [facility] ([facility]) [address] [place] [address] GLOMERULAR FILTRATION RATE ML/MIN/1.73 SQ M.PREDICTED 83.8 mL/min/1.73m*2 Normal >60.0 [facility] Comment on above: Result Comment: [facility]???s estimated glomerular filtration rate (eGFR) will [...] group of individuals. Performed By: #### L [id number] #### [facility] ([facility]) [address] [place] [address] Glucose [Mass/Vol] 110 mg/dL High 70-100 [facility] Comment on above: Performed By: #### L [id number] #### [facility] ([facility]) [address] [place] [address] Potassium [Moles/Vol] 3.8 mmol/L Normal 3.5-5.1 [facility] Comment on above: Performed By: #### L [id number] #### [facility] ([facility]) [address] [place] [address] Sodium [Moles/Vol] 136 mmol/L Normal 136-145 [facility] Comment on above: Performed By: #### L [id number] #### [facility] ([facility]) [address] [place] [address] Urea nitrogen [Mass/Vol] 18 mg/dL Normal 7-25 [facility] Comment on above: Performed By: #### L [id number] #### [facility] ([facility]) [address] [place] [address] UREA NITROGEN/CREATININE (MASS RATIO) IN SER/PLAS 22.5 Normal [facility] Comment on above: Performed By: #### L [id number] #### [facility] ([facility]) [address] [place] [address] MAGNESIUMon 05-10-2023 Magnesium [Mass/Vol] 1.7 mg/dL Low 1.9-2.7 [facility] Comment on above: Performed By: #### L [id number] ####[facility] ([facility])[address] [place] [address] POCT GLUCOSE METER UNSOLICIT ED RESULTSon 05-10-2023 Glucose [Mass/Vol] 119 mg/dL High 70-105 [facility] Comment on above: Order Comment: Waive d Testing in the ED is performed under the ED CLIA certificate #[id number]. Result Comment: [email or web address] Performed By: #### L [id number] #### [facility] ([facility]) [address] [place] [address] Glucose [Mass/Vol] 141 mg/dL High 70-105 [facility] Comment on above: Order Comment: Waive d Testing in the ED is performed under the ED CLIA certificate #[id number]. Result Comment: [email or web address] Performed By: #### L [id number] #### [facility] ([facility]) [address] [facility] [place] [address] Glucose [Mass/Vol] 162 mg/dL High 70-105 [facility] Comment on above: Order Comment: Waive d Testing in the ED is performed under the ED CLIA certificate #[id number]. Result Comment: [email or web address] Performed By: #### L [id number] #### [facility] ([facility]) [address] [place] [address] Glucose [Mass/Vol] 111 mg/dL High 70-105 [facility] Comment on above: Order Comment: Waive d Testing in the ED is performed under the ED CLIA certificate #[id number]. Result Comment: [email or web address] Performed By: #### L [id number] ####[facility] ([facility])[address] [facility] [place] [address] 30on 05-09-2023 30 The patient is Moderately [...] medication and electrolyte replacement as ordered Normal [facility] 30 The patient is Moderately Stable [...] maintained within prescribed range Outcome: Progressing Normal [facility] BASIC METABOLIC PANELon 04-20 Anion gap [Moles/Vol] 10 mmol/L Normal 7-20 [facility] Comment on above: Performed By: #### L [id number] #### [facility] ([facility]) [address] [place] [address] Calcium [Mass/Vol] 9.4 mg/dL Normal 8.6-10.3 [facility] Comment on above: Performed By: #### L [id number] #### [facility] ([facility]) [address] [place] [address] Chloride [Moles/Vol] 98 mmol/L Normal 98-107 [facility] Comment on above: Performed By: #### L [id number] #### [facility] ([facility]) [address] [address] CO2 [Moles/Vol] 31 mmol/L Normal 21-31 [facility] Comment on above: Performed By: #### L [id number] #### [facility] ([facility]) [address] [facility] [place] [address] Creatinine [Mass/Vol] 0.90 mg/dL Normal 0.60-1.20 [facility] Comment on above: Performed By: #### L [id number] #### [facility] ([facility]) [address] [place] [address] GLOMERULAR FILTRATION RATE ML/MIN/1.73 SQ M.PREDICTED 72.7 mL/min/1.73m*2 Normal >60.0 [facility] Comment on above: Result Comment: [facility]???s estimated glomerular filtration rate (eGFR) will [...] group of individuals. Performed By: #### L [id number] #### [facility] ([facility]) [address] [place] [address] Glucose [Mass/Vol] 102 mg/dL High 70-100 [facility] Comment on above: Performed By: #### L [id number] #### [facility] ([facility]) [address] [address] Potassium [Moles/Vol] 4.0 mmol/L Normal 3.5-5.1 [facility] Comment on above: Performed By: #### L [id number] #### [facility] ([facility]) [address] [place] [address] Sodium [Moles/Vol] 135 mmol/L Low 136-145 [facility] Comment on above: Performed By: #### L [id number] #### [facility] ([facility]) [address] [place] [address] Urea nitrogen [Mass/Vol] 20 mg/dL Normal 7-25 [facility] Comment on above: Performed By: #### L [id number] #### [facility] ([facility]) [address] [place] [address] UREA NITROGEN/CREATININE (MASS RATIO) IN SER/PLAS 22.2 Normal [facility] Comment on above: Performed By: #### L [id number] #### [facility] ([facility]) [address] [place] [address] CBCon 05-09-2023 Erythrocyte distribution width (RBC) [Ratio] 15.7 % High 11.5-15.0 [facility] Comment on above: Performed By: #### L [id number] ####[facility] ([facility])[address] [place] [address] ERYTHROCYTE MEAN CORPUSCULAR HEMOGLOBIN CONCENTRATION (G/DL) BY AUTOMATED 32.6 g/dL Normal 32.0-35.0 [facility] Comment on above: Performed By: #### L [id number] ####[facility] ([facility])[address] [place] [address] Hematocrit (Bld) [Volume fraction] 39.6 % Normal 36.0-48.0 [facility] Comment on above: Performed By: #### L [id number] ####[facility] ([facility])[address] [place] [address] Hemoglobin (Bld) [Mass/Vol] 12.9 g/dL Normal 12.0-15.0 [facility] Comment on above: Performed By: #### L [id number] ####[facility] ([facility])[address] [place] [address] MCH (RBC) [Entitic mass] 28.8 pg Normal 27.0-33.0 [facility] Comment on above: Performed By: #### L [id number] ####[facility] ([facility])[address] [place] [address] MCV (RBC) [Entitic vol] 88.4 fL Normal 82.0-98.0 [facility] Comment on above: Performed By: #### L [id number] ####[facility] ([facility])[address] [place] [address] PLATELETS (10*3/UL) IN BLOOD AUTOMATED COUNT 124 10*3/uL Low 150-400 [facility] Comment on above: Performed By: #### L [id number] ####[facility] ([facility])[address] [place] [address] RBC (Bld) [#/Vol] 4.48 10*6/uL Normal 3.80-5.00 [facility] Comment on above: Performed By: #### L [id number] ####[facility] ([facility])[address] [place] [address] WBC (Bld) [#/Vol] 4.51 10*3/uL Normal 4.00-10.60 [facility] Comment on above: Performed By: #### L [id number] ####[facility] ([facility])[address] [place] [address] MAGNESIUMon 05-09-2023 Magnesium [Mass/Vol] 1.9 mg/dL Normal 1.9-2.7 [facility] Comment on above: Performed By: #### L [id number] #### [facility] ([facility]) [address] [place] [address] POCT GLUCOSE METER UNSOLICIT ED RESULTSon 05-09-2023 Glucose [Mass/Vol] 145 mg/dL High 70-105 [facility] Comment on above: Order Comment: Waive d Testing in the ED is performed under the ED CLIA certificate #[id number]. Result Comment: [email or web address] Performed By: #### L [id number] ####[facility] ([facility])[address] [place] [address] Glucose [Mass/Vol] 118 mg/dL High 70-105 [facility] Comment on above: Order Comment: Waive d Testing in the ED is performed under the ED CLIA certificate #[id number]. Result Comment: [email or web address] Performed By: #### L [id number] ####[facility] ([facility])[address] [facility] [place] [address] Glucose [Mass/Vol] 152 mg/dL High 70-105 [facility] Comment on above: Order Comment: Waive d Testing in the ED is performed under the ED CLIA certificate #[id number]. Result Comment: [email or web address] Performed By: #### L [id number] #### [facility] ([facility]) [address] [place] [address] Glucose [Mass/Vol] 105 mg/dL Normal 70-105 [facility] Comment on above: Order Comment: Waive d Testing in the ED is performed under the ED CLIA certificate #[id number]. Result Comment: [email or web address] Performed By: #### L [id number] #### [facility] ([facility]) [address] [place] [address] 30on 05-08-2023 30 The patient is Moderately Stable - Low risk of patient condition declining or worsening The patient's goals for the shift include comfort The clinical goals for the shift include safety Normal [facility] 30 The patient is Moderately Stable [...] and maintained or improved Outcome: Progressing Normal [facility] 30 The patient is Moderately Stable - Low risk of patient condition declining or worsening The patient's goals for the shift include comfort The clinical goals for the shift include safety Normal [facility] APTTon 05-08-2023 ACTIVATED PARTIAL THROMBOPLASTIN TIME IN PPP BY COAGULATION ASSAY 36.7 Seconds High 25.0-35.0 [facility] Comment on above: Result Comment: Clin ical significance of the APTT is questionable in the presence of heparin. Performed By: #### L [id number] #### [facility] ([facility]) [address] [place] [address] BASIC METABOLIC PANELon 04-20 Anion gap [Moles/Vol] 10 mmol/L Normal 7-20 [facility] Comment on above: Performed By: #### L [id number] ####[facility] ([facility])[address] [place] [address] Calcium [Mass/Vol] 9.9 mg/dL Normal 8.6-10.3 [facility] Comment on above: Performed By: #### L [id number] ####[facility] ([facility])[address] [place] [address] Chloride [Moles/Vol] 99 mmol/L Normal 98-107 [facility] Comment on above: Performed By: #### L [id number] ####[facility] ([facility])[address] [place] [address] CO2 [Moles/Vol] 34 mmol/L High 21-31 [facility] Comment on above: Performed By: #### L [id number] ####[facility] ([facility])[address] [place] [address] Creatinine [Mass/Vol] 0.90 mg/dL Normal 0.60-1.20 [facility] Comment on above: Performed By: #### L [id number] ####[facility] ([facility])[address] [place] [address] GLOMERULAR FILTRATION RATE ML/MIN/1.73 SQ M.PREDICTED 72.7 mL/min/1.73m*2 Normal >60.0 [facility] Comment on above: Result Comment: The [facility]???s estimated glomerular filtration rate (eGFR) will [...] of individuals. Performed By: #### L [id number] ####[facility] ([facility])[address] [place] [address] Glucose [Mass/Vol] 94 mg/dL Normal 70-100 [facility] Comment on above: Performed By: #### L [id number] ####[facility] ([facility])[address] [place] [address] Potassium [Moles/Vol] 3.5 mmol/L Normal 3.5-5.1 [facility] Comment on above: Performed By: #### L [id number] ####[facility] ([facility])[address] [place] [address] Sodium [Moles/Vol] 139 mmol/L Normal 136-145 [facility] Comment on above: Performed By: #### L [id number] ####[facility] ([facility])[address] [facility] [address] Urea nitrogen [Mass/Vol] 18 mg/dL Normal 7-25 [facility] Comment on above: Performed By: #### L [id number] ####[facility] ([facility])[address] [facility] [address] UREA NITROGEN/CREATININE (MASS RATIO) IN SER/PLAS 20.0 Normal [facility] Comment on above: Performed By: #### L [id number] ####[facility] ([facility])[address] [facility] [address] MAGNESIUMon 05-08-2023 Magnesium [Mass/Vol] 1.3 mg/dL Low 1.9-2.7 [facility] Comment on above: Performed By: #### L [id number] ####[facility] ([facility])[address] [place] [address] POCT GLUCOSE METER UNSOLICIT ED RESULTSon 05-08-2023 Glucose [Mass/Vol] 121 mg/dL High 70-105 [facility] Comment on above: Order Comment: Waive d Testing in the ED is performed under the ED CLIA certificate #[id number]. Result Comment: [email or web address] [email or web address] Performed By: #### L [id number] #### [facility] ([facility]) [address] [place] [address] Glucose [Mass/Vol] 110 mg/dL High 70-105 [facility] Comment on above: Order Comment: Waive d Testing in the ED is performed under the ED CLIA certificate #[id number]. Result Comment: [email or web address] Performed By: #### L [id number] ####[facility] ([facility])[address] [place] [address] Glucose [Mass/Vol] 150 mg/dL High 70-105 [facility] Comment on above: Order Comment: Waive d Testing in the ED is performed under the ED CLIA certificate #[id number]. Result Comment: [email or web address] Performed By: #### L [id number] #### [facility] ([facility]) [address] [place] [address] Glucose [Mass/Vol] 118 mg/dL High 70-105 [facility] Comment on above: Order Comment: Waive d Testing in the ED is performed under the ED CLIA certificate #[id number]. Result Comment: [email or web address] Performed By: #### L [id number] #### [facility] ([facility]) [address] [place] [address] 30on 05-07-2023 30 Problem: Pain - Adul [...] shift include cardiac cath without complications Normal [facility] APTTon 05-07-2023 ACTIVATED PARTIAL THROMBOPLASTIN TIME IN PPP BY COAGULATION ASSAY 123.2 Seconds High 25.0-35.0 [facility] Comment on above: Order Comment: Check aPTT every 6 hours while on heparin infusion, or per protocol. Result Comment: Clin ical significance of the APTT is questionable in the presence of heparin. Performed By: #### L [id number] #### [facility] ([facility]) [address] [place] [address] ACTIVATED PARTIAL THROMBOPLASTIN TIME IN PPP BY COAGULATION ASSAY 106.0 Seconds High 25.0-35.0 [facility] Comment on above: Order Comment: Check aPTT every 6 hours while on heparin infusion, or per protocol. Result Comment: Clin ical significance of the APTT is questionable in the presence of heparin. Performed By: #### L [id number] #### [facility] ([facility]) [address] [place] [address] BASIC METABOLIC PANELon 04-19 Anion gap [Moles/Vol] 11 mmol/L Normal 7-20 [facility] Comment on above: Performed By: #### L [id number] ####[facility] ([facility])[address] [place] [address] Calcium [Mass/Vol] 9.7 mg/dL Normal 8.6-10.3 [facility] Comment on above: Performed By: #### L [id number] ####[facility] ([facility])[address] [place] [address] Chloride [Moles/Vol] 98 mmol/L Normal 98-107 [facility] Comment on above: Performed By: #### L [id number] ####[facility] ([facility])[address] [place] [address] CO2 [Moles/Vol] 32 mmol/L High 21-31 [facility] Comment on above: Performed By: #### L [id number] ####[facility] ([facility])[address] [place] [address] Creatinine [Mass/Vol] 0.86 mg/dL Normal 0.60-1.20 [facility] Comment on above: Performed By: #### L [id number] ####[facility] ([facility])[address] [place] [address] GLOMERULAR FILTRATION RATE ML/MIN/1.73 SQ M.PREDICTED 76.8 mL/min/1.73m*2 Normal >60.0 [facility] Comment on above: Result Comment: The [facility]???s estimated glomerular filtration rate (eGFR) will [...] of individuals. Performed By: #### L [id number] ####[facility] ([facility])[address] [place] [address] Glucose [Mass/Vol] 110 mg/dL High 70-100 [facility] Comment on above: Performed By: #### L [id number] ####[facility] ([facility])[address] [place] [address] Potassium [Moles/Vol] 3.4 mmol/L Low 3.5-5.1 [facility] Comment on above: Performed By: #### L [id number] ####[facility] ([facility])[address] [place] [address] Sodium [Moles/Vol] 138 mmol/L Normal 136-145 [facility] Comment on above: Performed By: #### L [id number] ####[facility] ([facility])[address] [facility] [address] Urea nitrogen [Mass/Vol] 14 mg/dL Normal 7-25 [facility] Comment on above: Performed By: #### L [id number] ####[facility] ([facility])[address] [place] [address] UREA NITROGEN/CREATININE (MASS RATIO) IN SER/PLAS 16.3 Normal [facility] Comment on above: Performed By: #### L [id number] ####[facility] ([facility]ER)[address] [place] [address] CBCon 05-07-2023 Erythrocyte distribution width (RBC) [Ratio] 15.7 % High 11.5-15.0 [facility] Comment on above: Performed By: #### L [id number] #### [facility] ([facility]) [address] [place] [address] ERYTHROCYTE MEAN CORPUSCULAR HEMOGLOBIN CONCENTRATION (G/DL) BY AUTOMATED 32.4 g/dL Normal 32.0-35.0 [facility] Comment on above: Performed By: #### L [id number] #### [facility] ([facility]) [address] [place] [address] Hematocrit (Bld) [Volume fraction] 38.3 % Normal 36.0-48.0 [facility] Comment on above: Performed By: #### L [id number] #### [facility] ([facility]) [address] [place] [address] Hemoglobin (Bld) [Mass/Vol] 12.4 g/dL Normal 12.0-15.0 [facility] Comment on above: Performed By: #### L [id number] #### [facility] ([facility]) [address] [place] [address] MCH (RBC) [Entitic mass] 28.6 pg Normal 27.0-33.0 [facility] Comment on above: Performed By: #### L [id number] #### [facility] ([facility]) [address] [place] [address] MCV (RBC) [Entitic vol] 88.2 fL Normal 82.0-98.0 [facility] Comment on above: Performed By: #### L [id number] #### [facility] ([facility]) [address] [place] [address] PLATELETS (10*3/UL) IN BLOOD AUTOMATED COUNT 121 10*3/uL Low 150-400 [facility] Comment on above: Performed By: #### L [id number] #### [facility] ([facility]) [address] [place] [address] RBC (Bld) [#/Vol] 4.34 10*6/uL Normal 3.80-5.00 [facility] Comment on above: Performed By: #### L [id number] #### [facility] ([facility]) [address] [place] [address] WBC (Bld) [#/Vol] 4.25 10*3/uL Normal 4.00-10.60 [facility] Comment on above: Performed By: #### L [id number] #### [facility] ([facility]) [address] [place] [address] HPon 05-07-2023 HP H&P reviewed. The patient was examined and there are no changes to the H&P. Regina Stark MD, MPH, [facility], [facility], [facility] Interventional Cardiology Pager Email: [email or web address] Normal [facility] POCT GLUCOSE METER UNSOLICIT ED RESULTSon 05-07-2023 Glucose [Mass/Vol] 125 mg/dL High 70-105 [facility] Comment on above: Order Comment: Waive d Testing in the ED is performed under the ED CLIA certificate #[id number]. Result Comment: [email or web address] [email or web address] Performed By: #### L [id number] ####[facility] ([facility])[address] [place] [address] Glucose [Mass/Vol] 101 mg/dL Normal 70-105 [facility] Comment on above: Order Comment: Waive d Testing in the ED is performed under the ED CLIA certificate #[id number]. Result Comment: [email or web address] Performed By: #### L [id number] ####[facility] ([facility])[address] [place] [address] 30on 05-06-2023 30 The patient is Moderately [...] from fall injury Outcome: Progressing Flowsheets (Taken 05/06/2023799 by Denice Lala RN) Free from fall injury: Assess patient frequently for physical needs Identify cognitive and physical deficits and behaviors that affect risk of falls Evans fall precautions as indicated by assessment Educate patient/family on patient safety, including physical limitations Instruct patient to call for assistance with activity based on assessment Modify environment to reduce risk of injury Consider OT/PT consult to assist with strengthening/mobility Problem: Discharge Planning Goal: Discharge to home or other facility with appropriate resources Outcome: Progressing Flowsheets (Taken 05/06/2023799 by Denice Lala RN) Discharge to home [...] maintained or improved Outcome: Progressing Flowsheets (Taken 05/06/2023799 by Denice Lala RN) Care Plan - [...] and prevent overall improvement and discharge Normal [facility] 30 Daily Case Managemen t Update Multidisciplinary rounds have been completed. Barriers to Discharge: Pending clinical course and improvement in clinical condition. Patient admitted with chronic heart failure transferred from [facility]. Plan for coronary angiography tomorrow per Cardiology. Diet: Dietary Orders (From admission, onward) Start Ordered 05/07/23 0001 Diet NPO Diet effective midnight Comments: Sips with medications Question: Reason for NPO: Answer: Operation/Procedure 05/06/23 1502 05/06/23 1515 Special Kitchen Request Once Comments: Pls send for lunch tray now (pt did not like/eat any of the generated tray) chicken salad sandwich on wheat, peach malay yogurt, diet cola 05/06/23 1516 05/05/232153 Regular Diet Diabetic Female (carb 45g/meal) Diet effective now Question Answer Comment Room Service? Yes Carbohydrate restriction: Diabetic Female (carb 45g/meal) 05/05/232152 Physician Expected Discharge Date: Discharge Delays: PT Six Click Score: 23 OT Six Click Score: PT Recommendations: OT Recommendations: New Consults: Normal [facility] 30 Problem: Pain - Adul t [...] and behaviors that affect risk of falls Evans fall precautions as indicated by assessment Educate [...] for the shift include hemodynamically stable Normal [facility] APTTon 05-06-2023 ACTIVATED PARTIAL THROMBOPLASTIN TIME IN PPP BY COAGULATION ASSAY 104.8 Seconds High 25.0-35.0 [facility] Comment on above: Order Comment: Check aPTT every 6 hours while on heparin infusion, or per protocol. Result Comment: Clin ical significance of the APTT is questionable in the presence of heparin. Performed By: #### L [id number] ####[facility] ([facility])[address] [place] [address] ACTIVATED PARTIAL THROMBOPLASTIN TIME IN PPP BY COAGULATION ASSAY 134.0 Seconds Critically high 25.0-35.0 [facility] Comment on above: Order Comment: Check aPTT every 6 hours while on heparin infusion, or per protocol. Result Comment: Clin ical significance of the APTT is questionable in the presence of heparin. Performed By: #### L [id number] #### [facility] ([facility]) [address] [place] [address] ACTIVATED PARTIAL THROMBOPLASTIN TIME IN PPP BY COAGULATION ASSAY 143.7 Seconds Critically high 25.0-35.0 [facility] Comment on above: Order Comment: Basel ine aPTT before initiating heparin infusion. Result Comment: Clin ical significance of the APTT is questionable in the presence of heparin. Performed By: #### L [id number] #### [facility] ([facility]) [address] [place] [address] CBCon 05-06-2023 Erythrocyte distribution width (RBC) [Ratio] 15.7 % High 11.5-15.0 [facility] Comment on above: Performed By: #### L [id number] #### [facility] ([facility]) [address] [place] [address] ERYTHROCYTE MEAN CORPUSCULAR HEMOGLOBIN CONCENTRATION (G/DL) BY AUTOMATED 32.6 g/dL Normal 32.0-35.0 [facility] Comment on above: Performed By: #### L [id number] #### [facility] ([facility]) [address] [place] [address] Hematocrit (Bld) [Volume fraction] 39.9 % Normal 36.0-48.0 [facility] Comment on above: Performed By: #### L [id number] #### [facility] ([facility]) [address] [place] [address] Hemoglobin (Bld) [Mass/Vol] 13.0 g/dL Normal 12.0-15.0 [facility] Comment on above: Performed By: #### L [id number] #### [facility] ([facility]) [address] [place] [address] MCH (RBC) [Entitic mass] 28.9 pg Normal 27.0-33.0 [facility] Comment on above: Performed By: #### L [id number] #### [facility] ([facility]) [address] [place] [address] MCV (RBC) [Entitic vol] 88.7 fL Normal 82.0-98.0 [facility] Comment on above: Performed By: #### L [id number] #### [facility] ([facility]) [address] [place] [address] PLATELETS (10*3/UL) IN BLOOD AUTOMATED COUNT 139 10*3/uL Low 150-400 [facility] Comment on above: Performed By: #### L [id number] #### [facility] ([facility]) [address] [place] [address] RBC (Bld) [#/Vol] 4.50 10*6/uL Normal 3.80-5.00 [facility] Comment on above: Performed By: #### L [id number] #### [facility] ([facility]) [address] [place] [address] WBC (Bld) [#/Vol] 5.73 10*3/uL Normal 4.00-10.60 [facility] Comment on above: Performed By: #### L [id number] #### [facility] ([facility]) [address] [place] [address] COMPREHENSIVE METABOLIC PANE Shamir 05-06-2023 Albumin [Mass/Vol] 3.6 g/dL Normal 3.5-5.7 [facility] Comment on above: Performed By: #### L [id number] #### [facility] ([facility]) [address] [place] [address] ALP [Catalytic activity/Vol] 41 U/L Normal 34-104 [facility] Comment on above: Performed By: #### L [id number] #### [facility] ([facility]) [address] [place] [address] ALT [Catalytic activity/Vol] 24 U/L Normal 7-52 [facility] Comment on above: Performed By: #### L [id number] #### [facility] ([facility]) [address] [place] [address] Anion gap [Moles/Vol] 14 mmol/L Normal 7-20 [facility] Comment on above: Performed By: #### L [id number] #### [facility] ([facility]) [address] [place] [address] AST [Catalytic activity/Vol] 42 U/L High 13-39 [facility] Comment on above: Performed By: #### L [id number] #### [facility] ([facility]) [address] [place] [address] Bilirubin [Mass/Vol] 1.3 mg/dL High 0.3-1.0 [facility] Comment on above: Performed By: #### L [id number] #### [facility] ([facility]) [address] [place] [address] Calcium [Mass/Vol] 9.7 mg/dL Normal 8.6-10.3 [facility] Comment on above: Performed By: #### L [id number] #### [facility] ([facility]) [address] [place] [address] Chloride [Moles/Vol] 101 mmol/L Normal 98-107 [facility] Comment on above: Performed By: #### L [id number] #### [facility] ([facility]) [address] [place] [address] CO2 [Moles/Vol] 27 mmol/L Normal 21-31 [facility] Comment on above: Performed By: #### L [id number] #### [facility] ([facility]) [address] [place] [address] Creatinine [Mass/Vol] 0.74 mg/dL Normal 0.60-1.20 [facility] Comment on above: Performed By: #### L [id number] #### [facility] ([facility]) [address] [place] [address] GLOMERULAR FILTRATION RATE ML/MIN/1.73 SQ M.PREDICTED 92.0 mL/min/1.73m*2 Normal >60.0 [facility] Comment on above: Result Comment: The [facility]???s estimated glomerular filtration rate (eGFR) will [...] group of individuals. Performed By: #### L [id number] #### [facility] ([facility]) [address] [place] [address] Glucose [Mass/Vol] 101 mg/dL High 70-100 [facility] Comment on above: Performed By: #### L [id number] #### [facility] ([facility]) [address] [place] [address] Potassium [Moles/Vol] 3.6 mmol/L Normal 3.5-5.1 [facility] Comment on above: Performed By: #### L [id number] #### [facility] ([facility]) [address] [place] [address] Protein [Mass/Vol] 7.2 g/dL Normal 6.0-8.3 [facility] Comment on above: Performed By: #### L [id number] #### [facility] ([facility]) [address] [place] [address] Sodium [Moles/Vol] 138 mmol/L Normal 136-145 [facility] Comment on above: Performed By: #### L [id number] #### [facility] ([facility]) [address] [place] [address] Urea nitrogen [Mass/Vol] 13 mg/dL Normal 7-25 [facility] Comment on above: Performed By: #### L [id number] #### [facility] ([facility]) [address] [place] [address] UREA NITROGEN/CREATININE (MASS RATIO) IN SER/PLAS 17.6 Normal [facility] Comment on above: Performed By: #### L [id number] #### [facility] ([facility]) [address] [place] [address] CONSULTon 05-06-2023 CONSULT -- Attestation signed by [...] obstructive sleep apnea who was admitted to [facility] with sudden onset shortness of breath. Reports that she woke up suddenly from sleep feeling short of breath. She initially thought that this was a COVID infection. In the ED at [place], she was noted to be in atrial [...] branch block pattern. Patient was transferred to [facility] for further evaluation.Patient denies any history of [...] Value Ventricular Rate 81 Atrial Rate 81 [place] Interval 208 QRS DURATION 178 QT Interval 442 QTC CALCULATION(BAZETT) 513 P [place] 34 R-[place] -48 T Wave [place] 101 Impression Normal sinus rhythm Left axis deviation Left bundle branch block Abnormal ECG When compared with ECG of 13-FEB-2013 09:22, No significant change was found Confirmed by Jose Luis Cronin ([id number]) on 05/05/2023 9:15:31 PM Lab Results Component Value Date TROPONINI 0. (more content not included)... Normal [facility] HPon 05-06-2023 HP -- Attestation signed [...] obstructive sleep apnea who was admitted to [facility] with sudden onset shortness of breath. Reports that she woke up suddenly from sleep feeling short of breath. She initially thought that this was a COVID infection. In the ED at [place], she was noted to be in atrial [...] branch block pattern. Patient was transferred to [facility] for further evaluation.Patient denies any history of [...] Value Ventricular Rate 81 Atrial Rate 81 IL Interval 208 QRS DURATION 178 QT Interval 442 QTC CALCULATION(BAZETT) 513 P [place] 34 R-[place] -48 T Wave [place] 101 Impression Normal sinus rhythm Left axis deviation Left bundle branch block Abnormal ECG When compared with ECG of 13-FEB-2013 09:22, No significant change was found Confirmed by Jose Luis Cronin ([id number]) on 05/05/2023 9:15:31 PM Lab Results Component Value Date TROPONINI 0. (more content not included)... Normal [facility] MAGNESIUMon 05-06-2023 Magnesium [Mass/Vol] 1.5 mg/dL Low 1.9-2.7 [facility] Comment on above: Performed By: #### L [id number] ####[facility] ([facility])[address] [place] [address] PLATELET COUNTon 05-06-2023 PLATELETS (10*3/UL) IN BLOOD AUTOMATED COUNT 121 10*3/uL Low 150-400 [facility] Comment on above: Performed By: #### L [id number] #### [facility] ([facility]) [address] [place] [address] POCT GLUCOSE METER UNSOLICIT ED RESULTSon 05-06-2023 Glucose [Mass/Vol] 105 mg/dL Normal 70-105 [facility] Comment on above: Order Comment: Waive d Testing in the ED is performed under the ED CLIA certificate #[id number]. Result Comment: [email or web address] Performed By: #### L [id number] ####[facility] ([facility])[address] [facility] [address] Glucose [Mass/Vol] 116 mg/dL High 70-105 [facility] Comment on above: Order Comment: Waive d Testing in the ED is performed under the ED CLIA certificate #[id number]. Result Comment: [email or web address] Performed By: #### L [id number] #### [facility] ([facility]) [address] [place] [address] Glucose [Mass/Vol] 131 mg/dL High 70-105 [facility] Comment on above: Order Comment: Waive d Testing in the ED is performed under the ED CLIA certificate #[id number]. Result Comment: [email or web address] Performed By: #### L [id number] #### [facility] ([facility]) [address] [place] [address] Glucose [Mass/Vol] 100 mg/dL Normal 70-105 [facility] Comment on above: Order Comment: Waive d Testing in the ED is performed under the ED CLIA certificate #[id number]. Result Comment: [email or web address] Performed By: #### L [id number] ####[facility] ([facility])[address] [place] [address] T4, FREEon 05-06-2023 THYROXINE (T4) FREE (NG/DL) IN SER/PLAS 1.08 ng/dL Normal 0.71-1.85 [facility] Comment on above: Performed By: #### L [id number] ####[facility] ([facility])[address] [place] [address] TROPONIN Ion 05-06-2023 Troponin I.cardiac [Mass/Vol] 0.01 ng/mL Normal 0.00-0.04 [facility] Comment on above: Performed By: #### L [id number] #### [facility] ([facility]) [address] [place] [address] TSH3 REFLEX TO FT4on 024 THYROTROPIN (MIU/L) IN SER/PLAS BY DETECTION LIMIT <= 0.05 MIU/L 5.84 mIU/L High 0.34-5.60 [facility] Comment on above: Performed By: #### L [id number] ####[facility] ([facility])[address] [place] [address] 30on 05-05-2023 30 The patient is Moderately [...] and behaviors that affect risk of falls Evans fall precautions as indicated by assessment Educate [...] and prevent overall improvement and discharge Normal [facility] B-TYPE NATRIURETIC PEPTIDEon 05-05-2023 Natriuretic peptide B (Bld) [Mass/Vol] 97 pg/mL Normal 0-100 [facility] Comment on above: Performed By: #### L [id number] #### [facility] ([facility]) [address] [place] [address] BASIC METABOLIC PANELon 04-19 Anion gap [Moles/Vol] 11 mmol/L Normal 7-20 [facility] Comment on above: Performed By: #### L [id number] #### [facility] ([facility]) [address] [place] [address] Calcium [Mass/Vol] 9.5 mg/dL Normal 8.6-10.3 [facility] Comment on above: Performed By: #### L [id number] #### [facility] ([facility]) [address] [place] [address] Chloride [Moles/Vol] 101 mmol/L Normal 98-107 [facility] Comment on above: Performed By: #### L [id number] #### [facility] ([facility]) [address] [place] [address] CO2 [Moles/Vol] 30 mmol/L Normal 21-31 [facility] Comment on above: Performed By: #### L [id number] #### [facility] ([facility]) [address] [place] [address] Creatinine [Mass/Vol] 0.69 mg/dL Normal 0.60-1.20 [facility] Comment on above: Performed By: #### L [id number] #### [facility] ([facility]) [address] [place] [address] GLOMERULAR FILTRATION RATE ML/MIN/1.73 SQ M.PREDICTED 98.7 mL/min/1.73m*2 Normal >60.0 [facility] Comment on above: Result Comment: [facility]???s estimated glomerular filtration rate (eGFR) will [...] group of individuals. Performed By: #### L [id number] #### [facility] ([facility]) [address] [place] [address] Glucose [Mass/Vol] 90 mg/dL Normal 70-100 [facility] Comment on above: Performed By: #### L [id number] #### [facility] ([facility]) [address] [place] [address] Potassium [Moles/Vol] 3.8 mmol/L Normal 3.5-5.1 [facility] Comment on above: Performed By: #### L [id number] #### [facility] ([facility]) [address] [place] [address] Sodium [Moles/Vol] 138 mmol/L Normal 136-145 [facility] Comment on above: Performed By: #### L [id number] #### [facility] ([facility]) [address] [place] [address] Urea nitrogen [Mass/Vol] 13 mg/dL Normal 7-25 [facility] Comment on above: Performed By: #### L [id number] #### [facility] ([facility]) [address] [place] [address] UREA NITROGEN/CREATININE (MASS RATIO) IN SER/PLAS 18.8 Normal [facility] Comment on above: Performed By: #### L [id number] #### [facility] ([facility]) [address] [place] [address] MAGNESIUMon 05-05-2023 Magnesium [Mass/Vol] 1.4 mg/dL Low 1.9-2.7 [facility] Comment on above: Performed By: #### L [id number] #### [facility] ([facility]) [address] [place] [address] POCT GLUCOSE METER UNSOLICIT ED RESULTSon 05-05-2023 Glucose [Mass/Vol] 87 mg/dL Normal 70-105 [facility] Comment on above: Order Comment: Waive d Testing in the ED is performed under the ED CLIA certificate #[id number]. Result Comment: edilia cervantes Performed By: #### L [id number] #### [facility] ([facility]) [address] [place] [address] TROPONIN Ion 05-05-2023 Troponin I.cardiac [Mass/Vol] 0.03 ng/mL Normal 0.00-0.04 [facility] Comment on above: Performed By: #### L [id number] ####[facility] ([facility])[address] [place] [address] CBC AUTO DIFFon 02-21-2022 BASO # 0.0 103/ul Normal 0.0-0.1 [facility] Comment on above: Performed By: #### C BC #### [facility] [address] [place] [address] Dr. Rivas Zhao Basophils/100 WBC (Bld) 0.7 % Normal 0.2-2.0 [facility] Comment on above: Performed By: #### C BC #### [facility] [address] [place] [address] Dr. Rivas Zhao EO # 0.2 103/ul Normal 0.0-0.7 [facility] Comment on above: Performed By: #### C BC #### [facility] [address] [place] [address] Dr. Rivas Zhao Eosinophils/100 WBC (Bld) 3.4 % Normal 0.9-7.0 [facility] Comment on above: Performed By: #### C BC #### [facility] [address] [place] [address] Dr. Rivas Zhao Erythrocyte distribution width (RBC) [Ratio] 14.8 % Normal 11.0-15.0 [facility] Comment on above: Performed By: #### C BC #### [facility] [address] [place] [address] Dr. Rivas Zhao Hematocrit (Bld) [Volume fraction] 38.4 % Normal 36.0-48.0 [facility] Comment on above: Performed By: #### C BC #### [facility] [address] [place] [address] Dr. Rivas Zhao Hemoglobin (Bld) [Mass/Vol] 12.7 g/dL Normal 12.0-16.0 [facility] Comment on above: Performed By: #### C BC #### [facility] [address] [place] [address] Dr. Rivas Zhao IG # 0.01 10e3/ul Normal 0.00-0.03 [facility] Comment on above: Performed By: #### C BC #### [facility] [address] [place] [address] Dr. Rivas Zhao IG % 0.2 % Normal 0.0-0.5 [facility] Comment on above: Performed By: #### C BC #### [facility] [address] [place] [address] Dr. Rivas Zhao LYMPH # 1.5 103/ul Normal 1.2-3.8 [facility] Comment on above: Performed By: #### C BC #### [facility] [address] [place] [address] Dr. Rivas Zhao Lymphocytes/100 WBC (Bld) 34.9 % Normal 20.5-60.0 [facility] Comment on above: Performed By: #### C BC #### [facility] [address] [place] [address] Dr. Rivas Zhao MANUAL DIFF REQ NO Normal [facility] Comment on above: Performed By: #### C BC #### [facility] [address] [place] [address] Dr. Rivas Zhao MCH (RBC) [Entitic mass] 30.2 pg Normal 26.7-34.0 [facility] Comment on above: Performed By: #### C BC #### [facility] [address] [place] [address] Dr. Rivas Zhao MCHC (RBC) [Mass/Vol] 33.1 g/dL Normal 29.9-35.2 [facility] Comment on above: Performed By: #### C BC #### [facility] [address] [place] [address] Dr. Rivas Zhao MCV (RBC) [Entitic vol] 91.2 fL Normal 81.0-99.0 [facility] Comment on above: Performed By: #### C BC #### [facility] [address] [place] [address] [address] Rivas Zhao MONO # 0.3 103/ul Normal 0.3-0.8 [facility] Comment on above: Performed By: #### C BC #### [facility] [address] [place] [address] [address] Rivas Zhao Monocytes/100 WBC (Bld) 5.9 % Normal 1.7-12.0 [facility] Comment on above: Performed By: #### C BC #### [facility] [address] [place] [address] [address] Rivas Zhao NEUT # 2.4 103/ul Normal 1.4-6.5 [facility] Comment on above: Performed By: #### C BC #### [facility] [address] [place] [address] Dr. Rivas Zhao Neutrophils/100 WBC (Bld) 54.9 % Normal 43.0-75.0 [facility] Comment on above: Performed By: #### C BC #### [facility] [address] [place] [address] Dr. Rivas Zhao Platelet mean volume (Bld) [Entitic vol] 11.9 fL Normal 9.5-13.5 [facility] Comment on above: Performed By: #### C BC #### [facility] [address] [place] [address] [address] Rivas Zhao PLT 107 103/ul Critically low 150-450 [facility] Comment on above: Performed By: #### C BC #### [facility] [address] [place] [address] [address] Rivas Zhao RBC 4.21 106/ul Normal 4.20-5.40 [facility] Comment on above: Performed By: #### C BC #### [facility] [address] [place] [address] Dr. Rivas Zhao WBC 4.4 103/ul Normal 4.0-11.0 [facility] Comment on above: Performed By: #### C BC #### [facility] [address] [place] [address] [address] Rivas Zhao GLYCOHEMOGLOBIN A1Con 2021 ADA RECOMMENDATION SEE BELOW Normal [facility] Comment on above: Result Comment: ADA RECOMMENDED LIMIT 4.0 - 6.0 ADA THERAPEUTIC TARGET < 7.0 ACTION SUGGESTED > 7.0 Performed By: #### A 1C #### [facility] [address] [place] [address] [address] Rivas Zhao Glucose [Mass/Vol] 117 mg/dL Normal [facility] Comment on above: Performed By: #### A 1C #### [facility] [address] [place] [address] Dr. Rivas Zhao HbA1c (Bld) [Mass fraction] 5.7 % Normal 4.5-6.2 [facility] Comment on above: Performed By: #### A 1C #### [facility] [address] [place] [address] Dr. Rivas Zhao LIPID PROFILEon 02-21-2022 CHOL-HDL RATIO NORM SEE BELOW Normal [facility] Comment on above: Result Comment: 3.3 - 4.4 LOW RISK 4.4 - 7.1 AVERAGE RISK 7.1 - 11.0 MODERATE RISK >11.0 HIGH RISK Performed By: #### L IPID, CMP #### [facility] [address] [place] [address] Dr. Rivas Zhao Cholesterol [Mass/Vol] 160 mg/dL Normal <=200 [facility] Comment on above: Performed By: #### L IPID, CMP #### [facility] [address] [place] [address] Dr. Rivas Zhao Cholesterol in HDL [Mass/Vol] 49 mg/dL Normal 40-60 [facility] Comment on above: Performed By: #### L IPID, CMP #### [facility] [address] [place] [address] Dr. Rivas Zhao Cholesterol in LDL [Mass/Vol] 96.0 mg/dL Normal [facility] Comment on above: Performed By: #### L IPID, CMP #### [facility] [address] [place], [place] [address] Dr. Rivas Zhao Cholesterol.total/Ch olesterol in HDL [Mass ratio] 3.3 {ratio} Normal [facility] Comment on above: Performed By: #### L IPID, CMP #### [facility] [address] [place] [address] Dr. Rivas Zhao HDL NORMAL > or = 60 mg/dl - LO W CARDIOVASCULAR RISK <40 mg/dl - HIGH CARDIOVASCULAR RISK Normal [facility] Comment on above: Performed By: #### L IPID, CMP #### [facility] [address] [place] [address] Dr. Rivas Zhao LDL CALC NORMAL SEE BELOW Normal [facility] Comment on above: Result Comment: <100 mg/dl OPTIMAL 100 - 129 mg/dl NEAR OR ABOVE OPTIMAL 130 - 159 mg/dl BORDERLINE HIGH 160 - 189 mg/dl HIGH >190 mg/dl VERY HIGH Performed By: #### L IPID, CMP #### [facility] [address] [place] [address] Dr. Rivas Zhao Triglyceride [Mass/Vol] 75 mg/dL Normal <=150 [facility] Comment on above: Performed By: #### L IPID, CMP #### [facility] [address] [place] [address] Dr. Rivas Zhao VLDL CALC 15.0 mg/dL Normal [facility] Comment on above: Performed By: #### L IPID, CMP #### [facility] [address] [place] [address] Dr. Rivas Zhao PROF 14(COMP METB)on 022 Albumin [Mass/Vol] 3.0 g/dL Critically low 3.4-5.0 [facility] Comment on above: Performed By: #### L IPID, CMP #### [facility] [address] [place] [address] Dr. Rivas Zhao Albumin/Globulin [Mass ratio] 0.6 {ratio} Normal [facility] Comment on above: Performed By: #### L IPID, CMP #### [facility] [address] [place] [address] Dr. Rivas Zhao ALP [Catalytic activity/Vol] 74 U/L Normal 46-116 [facility] Comment on above: Performed By: #### L IPID, CMP #### [facility] [address] [place] [address] Dr. Rivas Zhao ALT [Catalytic activity/Vol] 59 U/L Normal 14-59 [facility] Comment on above: Performed By: #### L IPID, CMP #### [facility] [address] [place] [address] [address] Rivas Zhao Anion gap [Moles/Vol] 9.2 mmol/L Normal [facility] Comment on above: Performed By: #### L IPID, CMP #### [facility] [address] [place] [address] Dr. Rivas Zhao AST [Catalytic activity/Vol] 65 U/L Critically high 15-37 [facility] Comment on above: Performed By: #### L IPID, CMP #### [facility] [address] [place] [address] Dr. Rivas Zhao Bilirubin [Mass/Vol] 1.1 mg/dL Critically high 0.2-1.0 [facility] Comment on above: Performed By: #### L IPID, CMP #### [facility] [address] [place] [address] Dr. Rivas Zhao Calcium [Mass/Vol] 8.8 mg/dL Normal 8.5-10.1 [facility] Comment on above: Performed By: #### L IPID, CMP #### [facility] [address] [place] [address] Dr. Rivas Zhao Chloride [Moles/Vol] 102 mmol/L Normal 98-107 [facility] Comment on above: Performed By: #### L IPID, CMP #### [facility] [address] [place] [address] Dr. Rivas Zhao CO2 [Moles/Vol] 32.5 mmol/L Critically high 21.0-32.0 [facility] Comment on above: Performed By: #### L IPID, CMP #### [facility] [address] [place] [address] Dr. Rivas Zhao Creatinine [Mass/Vol] 0.76 mg/dL Normal 0.55-1.02 [facility] Comment on above: Performed By: #### L IPID, CMP #### [facility] [address] [place] [address] Dr. Rivas Zhao EGFR-AF BELIZEAN >60 Normal >=60 [facility] Comment on above: Performed By: #### L IPID, CMP #### [facility] [address] [place] [address] [address] Rivas Zhao EGFR-NON AF BELIZEAN >60 Normal >=60 [facility] Comment on above: Performed By: #### L IPID, CMP #### [facility] [address] [place] [address] Dr. Rivas Zhao Globulin (S) [Mass/Vol] 4.7 g/dL Normal [facility] Comment on above: Performed By: #### L IPID, CMP #### [facility] [address] [place] [address] Dr. Rivas Zhao Glucose [Mass/Vol] 109 mg/dL Critically high 74-106 [facility] Comment on above: Performed By: #### L IPID, CMP #### [facility] [address] [place] [address] Dr. Rivas Zhao Potassium [Moles/Vol] 3.7 mmol/L Normal 3.5-5.1 [facility] Comment on above: Performed By: #### L IPID, CMP #### [facility] [address] [place] [address] Dr. Rivas Zhao Protein [Mass/Vol] 7.7 g/dL Normal 6.4-8.2 [facility] Comment on above: Performed By: #### L IPID, CMP #### [facility] [address] [place] [address] Dr. Rivas Zhao Sodium [Moles/Vol] 140 mmol/L Normal 136-145 [facility] Comment on above: Performed By: #### L IPID, CMP #### [facility] [address] [place] [address] Dr. Rivas Zhao Urea nitrogen [Mass/Vol] 12.0 mg/dL Normal 7.0-18.0 [facility] Comment on above: Performed By: #### L IPID, CMP #### [facility] [address] [place] [address] [address] Rivas Zhao Urea nitrogen/Creatinine [Mass ratio] 15.8 mg/mg Normal [facility] Comment on above: Performed By: #### L IPID, CMP #### [facility] [address] [place] [address] [address] Rivas Zhao Patient Correspondenceon Patient Correspondence [id number]#1.00 CD:127 Normal [facility] Physician Referral [id number]#1.00 CD:127 Normal [facility] Patient Correspondence [id number]#1.00 CD:127 Normal [facility] Physician Referralon 022 Physician Referral [id number]#1.0 0CD:127 Normal [facility] MG MAMM DIAGNOSTIC 3D GREG CA Don 05-16-2021 MG MAMM DIAGNOSTIC 3D GREG CAD Patient: FERN CARDOSO Exam Date: 05/16/2021 : 1960 Gender:F Ordering : DR SINDI BENJAMIN M.D. Admission #: [id number] Family : Order #: [id number] CLICK HERE TO VIEW EXAM RADIOLOGY REPORT [...] with breast cancer at age 59. LOCATION: [facility] BREAST COMPOSITION: Scattered areas fibroglandular density. [...] M.D. on 05/16/2021 at 15:27 Normal [facility] US BREAST GREG LIMITEDon -2 US BREAST GREG LIMITED Patient: FERN CARDOSO Exam Date: 05/16/2021 : 1960 Gender:F Ordering : DR SINDI BENJAMIN M.D. Admission #: [id number] Family : Order #: [id number] CLICK HERE TO VIEW EXAM RADIOLOGY REPORT [...] breast cancer at age 59. LOCATION: [facility] BREAST COMPOSITION: Scattered areas fibroglandular density. [...] M.D. on 05/16/2021 at 15:27 Normal [facility] TRANSGLUTAMINASE IGAon 04-02 t-Transglutaminase (tTG) IgA <2 Normal 0-3 [facility] Comment on above: Result Comment: Nega tive 0 - 3 Weak Positive 4 - 10 Positive >10 . Tissue Transglutaminase (tTG) has been identified as the endomysial antigen. Studies have demonstr- ated that endomysial IgA antibodies have over 99% specificity for gluten sensitive enteropathy. Performed By: #### T FRANCESCA #### [facility] [address] [place] [address] [address] Rivas Zhao CBC AUTO DIFFon 03-31-2021 BASO # 0.1 103/ul Normal 0.0-0.1 [facility] Comment on above: Performed By: #### C BC #### [facility] [address] [place], [place] [address] Dr. Rivas Zhao Basophils/100 WBC (Bld) 0.9 % Normal 0.2-2.0 [facility] Comment on above: Performed By: #### C BC #### [facility] [address] [place], [place] [address] Dr. Rivas Zhao EO # 0.2 103/ul Normal 0.0-0.7 [facility] Comment on above: Performed By: #### C BC #### [facility] [address] [place] [address] Dr. Rivas Zhao Eosinophils/100 WBC (Bld) 2.3 % Normal 0.9-7.0 [facility] Comment on above: Performed By: #### C BC #### [facility] [address] [place] [address] Dr. Rivas Zhoa Erythrocyte distribution width (RBC) [Ratio] 14.5 % Normal 11.0-15.0 [facility] Comment on above: Performed By: #### C BC #### [facility] [address] [place] [address] Dr. Rivas Zhao Hematocrit (Bld) [Volume fraction] 39.9 % Normal 36.0-48.0 [facility] Comment on above: Performed By: #### C BC #### [facility] [address] [place] [address] Dr. Rivas Zhao Hemoglobin (Bld) [Mass/Vol] 13.1 g/dL Normal 12.0-16.0 [facility] Comment on above: Performed By: #### C BC #### [facility] [address] [place] [address] Dr. Rivas Zhao IG # 0.02 10e3/ul Normal 0.00-0.03 [facility] Comment on above: Performed By: #### C BC #### [facility] [address] [place] [address] Dr. Rivas Zhao IG % 0.3 % Normal 0.0-0.5 [facility] Comment on above: Performed By: #### C BC #### [facility] [address] [place] [address] Dr. Rivas Zhao LYMPH # 2.2 103/ul Normal 1.2-3.8 [facility] Comment on above: Performed By: #### C BC #### [facility] [address] [place] [address] Dr. Rivas Zhao Lymphocytes/100 WBC (Bld) 31.8 % Normal 20.5-60.0 [facility] Comment on above: Performed By: #### C BC #### [facility] [address] [place] [address] Dr. Rivas Zhao MANUAL DIFF REQ NO Normal [facility] Comment on above: Performed By: #### C BC #### [facility] [address] [place] [address] Dr. Rivas Zhao MCH (RBC) [Entitic mass] 30.2 pg Normal 26.7-34.0 [facility] Comment on above: Performed By: #### C BC #### [facility] [address] [place] [address] Dr. Rivas Zhao MCHC (RBC) [Mass/Vol] 32.8 g/dL Normal 29.9-35.2 [facility] Comment on above: Performed By: #### C BC #### [facility] [address] [place] [address] Dr. Rivas Zhao MCV (RBC) [Entitic vol] 91.9 fL Normal 81.0-99.0 [facility] Comment on above: Performed By: #### C BC #### [facility] [address] [place] [address] Dr. Rivas Zhao MONO # 0.5 103/ul Normal 0.3-0.8 [facility] Comment on above: Performed By: #### C BC #### [facility] [address] [place] [address] Dr. Rivas Zhao Monocytes/100 WBC (Bld) 7.2 % Normal 1.7-12.0 [facility] Comment on above: Performed By: #### C BC #### [facility] [address] [place] [address] Dr. Rivas Zhao NEUT # 4.0 103/ul Normal 1.4-6.5 [facility] Comment on above: Performed By: #### C BC #### [facility] [address] [place] [address] Dr. Rivas Zhao Neutrophils/100 WBC (Bld) 57.5 % Normal 43.0-75.0 [facility] Comment on above: Performed By: #### C BC #### [facility] [address] [place] [address] Dr. Rivas Zhao Platelet mean volume (Bld) [Entitic vol] 11.8 fL Normal 9.5-13.5 [facility] Comment on above: Performed By: #### C BC #### [facility] [address] [place] [address] Dr. Rivas Zhao PLT 139 103/ul Critically low 150-450 [facility] Comment on above: Performed By: #### C BC #### [facility] [address] [place] [address] Dr. Rivas Zhao RBC 4.34 106/ul Normal 4.20-5.40 [facility] Comment on above: Performed By: #### C BC #### [facility] [address] [place] [address] Dr. Rivas Zhao WBC 7.0 103/ul Normal 4.0-11.0 [facility] Comment on above: Performed By: #### C BC #### [facility] [address] [place] [address] Dr. Rivas Zhao LIPASEon 03-31-2021 Lipase [Catalytic activity/Vol] 197.0 U/L Normal 23.0-300.0 [facility] Comment on above: Performed By: #### C MP, LIPA #### [facility] [address] [place] [address] Dr. Rivas Zhao PROF 14(COMP METB)on 021 Albumin [Mass/Vol] 3.6 g/dL Normal 3.5-5.0 [facility] Comment on above: Performed By: #### C MP, LIPA #### [facility] [address] [place] [address] Dr. Rivas Zhao Albumin/Globulin [Mass ratio] 0.9 {ratio} Normal [facility] Comment on above: Performed By: #### C MP, LIPA #### [facility] [address] [place] [address] Dr. Rivas Zhao ALP [Catalytic activity/Vol] 46 U/L Normal 38-126 [facility] Comment on above: Performed By: #### C MP, LIPA #### [facility] [address] [address] [address] Rivas Zhao ALT [Catalytic activity/Vol] 77 U/L Critically high 9-52 [facility] Comment on above: Performed By: #### C MP, LIPA #### [facility] [address] [address] [address] Rivas Zhao Anion gap [Moles/Vol] 13.9 mmol/L Normal [facility] Comment on above: Performed By: #### C MP, LIPA #### [facility] [address] [address] [address] Rivas Zhao AST [Catalytic activity/Vol] 67 U/L Critically high 14-36 [facility] Comment on above: Performed By: #### C MP, LIPA #### [facility] [address] [address] [address] Rivas Zhao Bilirubin [Mass/Vol] 0.7 mg/dL Normal 0.2-1.3 [facility] Comment on above: Performed By: #### C MP, LIPA #### [facility] [address] [address] [address] Rivas Zhao Calcium [Mass/Vol] 9.8 mg/dL Normal 8.4-10.2 [facility] Comment on above: Performed By: #### C MP, LIPA #### [facility] [address] [address] [address] Rivas Zhao Chloride [Moles/Vol] 103 mmol/L Normal 98-107 [facility] Comment on above: Performed By: #### C MP, LIPA #### [facility] [address] [address] [address] Rivas Zhao CO2 [Moles/Vol] 31.0 mmol/L Critically high 22.0-30.0 [facility] Comment on above: Performed By: #### C MP, LIPA #### [facility] [address] [address] [address] Rivas Zhao Creatinine [Mass/Vol] 0.95 mg/dL Normal 0.52-1.04 [facility] Comment on above: Performed By: #### C MP, LIPA #### [facility] [address] [address] [address] Rivas Zhao EGFR-AF BELIZEAN 60 mL/min/1.73m2 Normal >=60 [facility] Comment on above: Performed By: #### C MP, LIPA #### [facility] [address] [address] [address] Rivas Zhao EGFR-NON AF BELIZEAN =60 Normal >=60 [facility] Comment on above: Performed By: #### C MP, LIPA #### [facility] [address] [place] [address] Dr. Rivas Zhao Globulin (S) [Mass/Vol] 4.2 g/dL Normal [facility] Comment on above: Performed By: #### C MP, LIPA #### [facility] [address] [place] [address] Dr. Rivas Zhao Glucose [Mass/Vol] 95 mg/dL Normal 74-106 [facility] Comment on above: Performed By: #### C MP, LIPA #### [facility] [address] [place] [address] Dr. Rivas Zhao Potassium [Moles/Vol] 3.9 mmol/L Normal 3.4-5.0 [facility] Comment on above: Performed By: #### C MP, LIPA #### [facility] [address] [place] [address] Dr. Rivas Zhao Protein [Mass/Vol] 7.8 g/dL Normal 6.1-8.2 [facility] Comment on above: Performed By: #### C MP, LIPA #### [facility] [address] [place] [address] Dr. Rivas Zhao Sodium [Moles/Vol] 144 mmol/L Normal 137-145 [facility] Comment on above: Performed By: #### C MP, LIPA #### [facility] [address] [place] [address] Dr. Rivas Zhao Urea nitrogen [Mass/Vol] 20.0 mg/dL Critically high 7.0-17.0 [facility] Comment on above: Performed By: #### C SONIA PYLE #### [facility] [address] [address] [address] Rivas Zhao Urea nitrogen/Creatinine [Mass ratio] 21.1 mg/mg Normal [facility] Comment on above: Performed By: #### C SONIA PYLE #### [facility] [id number] Rivas Zhao XR ribs RT min 3V w CXR1V*on 06-09-2020 XR ribs RT min 3V w CXR1V* [facility] [place] [address] [place] [address] XRay Report Signed Patient: Fern Cardoso MR#: [id number] : 1960 Acct:[id number] Age/Sex: 59 / F ADM Date: 06/09/20 Loc: XDUCLY Room: Type: [facility] Attending Dr: Janene Munguia APRN, [employer] Ordering Provider: Janene Munguia APRN Date of [...] Garcia Jr., M.D.06/09/2020 11:19 AM Dictation Location: [place] [address] Transcribed By: JOSÉ LUIS 06/09/20 1119 Dictated By: Que Garcia Jr, MD 06/09/20 1112 Signed By: 06/09/20 1119 [facility] Vital Signs Date Time Vital Sign Value Performing Clinician Facility 05-14-2023 09:30-0500 Body height 165.1 cm Sindi Benjamin Other [facility] Other 05-14-2023 09:30-0500 Body mass index (BMI) [Ratio] 57.24 kg/m2 Sindi Benjamin Other [facility] Other 05-14-2023 09:30-0500 Body weight 156.04 kg Sindi Benjamin Other [facility] Other 05-14-2023 09:30-0500 Diastolic blood pressure 69 mm[Hg] Sindi Benjamin Other [facility] Other 05-14-2023 09:30-0500 SaO2% (BldA) [Mass fraction] 97 % Sindi Benjamin Other [facility] Other 05-14-2023 09:30-0500 Systolic blood pressure 105 mm[Hg] Sindi Benjamin Other [facility] Other 03-05-2023 16:00-0500 Body height 165.1 cm Etta Gordon Other [facility] Other 03-05-2023 16:00-0500 Body mass index (BMI) [Ratio] 60.27 kg/m2 Etta Gordon Other [facility] Other 03-05-2023 16:00-0500 Body temperature 98.9 [degF] Etta Gordon Other [facility] Other 03-05-2023 16:00-0500 Body weight 164.29 kg Etta Gordon Other [facility] Other 03-05-2023 16:00-0500 Diastolic blood pressure 77 mm[Hg] Etta Gordon Other [facility] Other 03-05-2023 16:00-0500 Respiratory rate 18 /min Etta Gordon Other [facility] Other 03-05-2023 16:00-0500 SaO2% (BldA) [Mass fraction] 95 % Etta Gordon Other [facility] Other 03-05-2023 16:00-0500 Systolic blood pressure 125 mm[Hg] Etta Gordon Other [facility] Other Encounters Encounter Date Encounter Type Care Provider Facility Start: 06-30-2023 End: 06-30-2023 ambulatory [facility] Start: 06-18-2023 End: 06-18-2023 ambulatory [facility] Start: 06-08-2023 End: 06-08-2023 ambulatory [facility] Start: 05-31-2023 End: 05-31-2023 ambulatory Etta Gordon Other [facility] Other Start: 05-31-2023 Telephone encounter Etta Gordon [facility] Start: 05-21-2023 End: 05-21-2023 ambulatory Sindi Benjamin Other [facility] Other Start: 05-21-2023 Telephone encounter Sindi Benjamin [facility] Start: 05-17-2023 End: 05-17-2023 ambulatory [facility] Start: 05-14-2023 End: 05-14-2023 ambulatory Sindi Benjamin Other [facility] Other Start: 05-14-2023 Office outpatient vi sit 25 minutes Sindi Benjamin [facility] Start: 05-06-2023 Evaluation and management of inpatient [facility] Start: 05-05-2023 Evaluation and management of inpatient [facility] Start: 05-05-2023 End: 05-11-2023 Evaluation and management of inpatient [facility] Start: 04-30-2023 End: 04-30-2023 ambulatory Sindi Benjamin Other [facility] Other Start: 04-30-2023 Telephone encounter Sindi Benjamni [facility] Start: 04-01-2023 End: 04-01-2023 ambulatory Sindi Benjamin Other [facility] Other Start: 04-01-2023 Telephone encounter Sindi Benjamin [facility] Start: 03-05-2023 End: 03-05-2023 ambulatory Etta Gordon Other [facility] Other Start: 03-05-2023 Office outpatient vi sit 25 minutes Etta Gordon [facility] Start: 02-26-2022 Encounter for genera l adult medical examination without abnormal findings DR SINDI BENJAMIN [facility] Start: 02-21-2022 End: 02-22-[address] SINDI BENJAMIN Facility:[facility] Start: 02-21-2022 End: 02-22-2022 Encounter for general adult medical examination without abnormal findings DR SINDI BENJAMIN Facility:[facility] Start: 01-20-2022 Adult health examination Etta Gordon Other [facility] Other Start: 05-16-2021 End: 05-17-[address] SINDI BENJAMIN Facility:[facility] Start: 03-31-2021 End: 04-01-[address] SINDI BENJAMIN Facility:[facility] Start: 08-18-2018 Patient encounter procedure [facility] Facility:[id number] Procedures Date Procedure Procedure Detail Performing Clinician Start: 08-18-2018 Echocardiography Sudhir Whiteside Start: 06-24-2018 Pre-surgery evaluation Etta Gordon Other Start: 06-25-2015 General examination of patient Etta Gordon Other Start: 02-20-2015 Diabetes mellitus screening Etta Gordon Other Start: 12-03-2014 Screening mammography Curtis Gordon Other Start: 06-05-2013 History and physical examination, administrative Etta Gordon Other Start: 01-20-2013 Preoperative cardiov ascular examination Etta Gordon Other Laboratory test resu lt abnormal Etta Gordon Other Screening for malign ant neoplasm of breast Etta Gordon Other Payers Date Payer Category Payer Unknown [id number] 1960 Unknown [id number] 1960 Unknown [id number] 1960 Unknown [id number] 1960 Unknown [id number] 1958 Unknown [id number] Social History Date Type Detail Facility Unknown if ever smoked [facility] Other Sex Assigned At Sex Assigned At Bir th [facility] Other Clinical Notes 03-05-2023 to 06-30-2023 Note Date & Type Note Facility 06-30-2023 Note CHF stable with out exacerbation Continue GDMT as prescribed [facility] 06-30-2023 Note BP in office perfect 128/72, but with midodrine 5 mg tid she has exaggerated supine hypertension at home after review of b/p log, therefore recommended pt to take midodrine as needed - hold for SBP> 120, and can also cut tab in 1/2 to = 2.5 mg And she voiced understanding. [facility] 06-30-2023 Note [id number]= 4 Continue eliquis anticoagulation, amiodarone for rhythm control and coreg for rate control [facility] 06-30-2023 Note Patient here c/o hyp ertension. Her atrial flutter ablation has been pushed out and rescheduled for 07/22/2023. C/o headaches when BP is elevated. Still taking 5mg of midodrine 3 times daily. Sometimes BP is well over 200 systolic. Still gets very lightheaded at times. Denies chest pain, SOB, and palpitations. Review of Systems Neurological: Positive for dizziness, headaches and light-headedness. All other systems reviewed and are negative. [facility] 06-30-2023 Note [facility] CARDIOLOGY PROGR ESS NOTE HPI: Fern Cardoso is a 62 y.o. female here for HPI Presents today for F/U post procedure. Known Chronic HFrEF, A fib/flutter, HTN, DM, RAVI Patient here c/o hypertension. Her atrial flutter ablation has been pushed out and rescheduled for 07/22/2023. C/o headaches when BP is elevated. Still taking 5mg of midodrine 3 times daily. Sometimes BP is well over 200 systolic. Still gets very lightheaded at times. Denies chest pain, SOB, and palpitations. Review of Systems Neurological: Positive for dizziness, headaches and light-headedness. All other systems reviewed and are negative Visit Vitals BP 118/66 (BP Location: Right wrist, Patient Position: Standing) Pulse 82 Ht 1.651 m (5' 5 ) Wt (!) 150 kg (331 lb) SpO2 99% BMI 55.08 kg/m??? Smoking Status Never BSA 2.62 m??? Allergies Allergen Reactions Penicillins Hives Medications: [...] morning and at bedtime. 180 tablet 3 bumetanide (Bumex) 1 mg tablet Take 1 [...] meal. Do not crush, chew, or split. midodrine (Proamatine) 5 mg tablet Take 1 tablet (5 mg) by mouth in the morning, at noon, and at bedtime. 270 tablet 3 sacubitril-valsartan (Entresto) 24-26 mg tablet Take 1 tablet by mouth in the morning and at bedtime. 180 tablet 3 spironolactone (Aldactone) 25 mg tablet Take 1 tablet (25 mg) by mouth once daily as directed. 90 tablet 3 No current facility-administered medications on file prior to visit. Physical Exam: Constitutional: Appearance: Normal appearance. Without apparent distress HENT: Head: Normocephalic and atraumatic. Nose: Nose [...] and oriented to person, place, and time. Psychiatric: Mood and Affect: Mood normal. Behavior: Behavior normal. Thought Content: Thought content normal. Judgment: Judgment normal. Labs: CBC normal, renal and liver function normal Component Ref Range & Units 1 mo ago (05/11/23) 1 mo ago (05/09/23) 1 mo ago (05/07/23) 1 mo ago (05/06/23) 1 mo ago (05/05/23) Auto WBC 4.00 - 10.60 10*3/uL 4.32 4.51 4.25 5.73 RBC 3.80 - 5.00 10*6/uL 4.58 4.48 4.34 4.50 Hemoglobin 12.0 - 15.0 g/dL 13.0 12.9 12.4 13.0 Hematocrit 36.0 - 48.0 % 40.7 39.6 38.3 39.9 MCV 82.0 - 98.0 fL 88.9 88.4 88.2 88.7 MCH 27.0 - 33.0 pg 28.4 28.8 28.6 28.9 MCHC 32.0 - 35.0 g/dL 31.9 Low 32.6 32.4 32.6 RDW 11.5 - 15.0 % 15.2 High 15.7 High 15.7 High 15.7 High Platelets 150 - 400 10*3/uL 107 Low 124 Low 121 Low 121 Low 139 Low Component Ref Range & Units 1 mo ago (05/11/23) 1 mo ago (05/10/23) 1 mo ago (05/09/23) 1 mo ago (05/08/23) 1 mo ago (05/07/23) 1 mo ago (05/06/23) 1 mo ago (05/05/23) Sodium 136 - 145 mmol/L 135 Low 136 135 Low 139 138 138 138 Potassium 3.5 - 5.1 mmol/L 3.7 3.8 4.0 3.5 3.4 Low 3.6 3.8 Chloride 98 - 107 mmol/L 98 99 98 99 98 101 101 CO2 21 - 31 mmol/L 30 33 High 31 34 High 32 High 27 30 BUN 7 - 25 mg/dL 17 18 20 18 14 (more content not included)... [facility] 06-18-2023 Note HTN currently well c ontrolled, also labile 90/57 and may have been Contributing to symptoms this week. Will add midodrine 5 mg tid to regime to prevent hypotension, lightheadedness/dizziness or syncope. [facility] 06-18-2023 Note [facility] II- currently w ithout exacerbation Continue GDMT- ASA, coreg, farxiga, losartan, entresot and aldatone Diuretic therapy- bumex 1 mg daily Monitor daily weights, I&O, fluid restriction 1.5-2L/day, renal function and electrolytes [facility] 06-18-2023 Note Continue amiodarone 200 mg daily, and coreg 6.25 mg bid. Will add midodrine 5 mg tid to regime for noted hypotension and symptoms of lightheadedness/dizziness and near syncope. Continue eliquis anticoaogulation- denied any bleeding tendencies [facility] 06-18-2023 Note [facility] CARDIOLOGY PROGR ESS [...] diabetes obstructive sleep apnea was admitted to [facility] with shortness of breath and was [...] Musculoskeletal: General: N (more content not included)... [facility] 06-18-2023 Note Patient here c/o epi [...] All other systems reviewed and are negative. [facility] 06-08-2023 Note [facility]rophys[facility] Consult Note Reason for visit: Afib HPI: Fern Cardoso is a 62 y.o. year old with past medical history of hypertension diabetes obstructive sleep apnea was admitted to [facility] with shortness of breath and was [...] file (05/05/2023) Utilities: Not At Risk (05/05/2023) [facility] Utilities Threatened with loss of utilities: No [...] Arteries: bilateral no (more content not included)... [facility] 05-17-2023 Note [facility] Cardiology Clinic Note Chief Complaint: Patient here for follow up [facility]. Had cath on 05/07/2023. Denies chest pain, [...] PSYCH: appropriate mood, affect, and judgement. INVESTIGATIONS: Echocardiogram-[facility] Name: FERN CARDOSO Study Date: 05/06/2023 08:24 AM B/P: 131 mmHg/56 mmHg HR: 80 bpm Date of : 1960 Location: [facility] Height: 65 in. Age: 62 year(s) Patient [...] 2, moderate diastolic (more content not included)... [facility] 05-14-2023 Evaluation note Encounter Date Diagnosis [...] forms for supplies and faxed back to [employer]. Pt states she will restart and become compliant w CPAP treatment. [facility] Other 01-23-2024 NotePt provided with discharge education and instructions. Heart failure folder reviewed in detail and filled out. Medications delivered and at bedside. All questions answered. Pt wheeled to main entrance, father there for transport. [facility]01-[facility]-2024 NoteCardiology Progress Note Subjective F/U Acute systolic heart failure Patient up in chair. Denies SOB, cp, palpitations. Reports pedal edema significantly improved. Tele - currently NSR, with some episodes a.fib overnight per [facility] Objective Patient Vitals for the past 24 [...] Value Ventricular Rate 81 Atrial Rate 81 IL Interval 208 QRS DURATION 178 QT Interval 442 QTC CALCULATION(BAZETT) 513 P [place] 34 R-[place] -48 T Wave [place] 101 Impression Normal sinus rhythm Left axis [...] internal jugular vein was obtained. A 6 Turkmen 11 cm sheath was inserted without difficulty. [...] left radial artery was obtained. A 6 Turkmen glide sheath was inserted without difficulty. Difficulty [...] outline, coronary spasm was (more content not included)...[facility]01-23-2024 NoteHospital Medicine Discharge Summary Final Discharge Diagnosis: Atrial fibrillation with RVR- [id number] score 4 Atrial flutter New onset of congestive heart failure/heart failure -ejection fraction, 40% TTE 05/06/23 NYHA class II Hypokalemia/Hypomagnesemia Essential hypertension DMII noninsulin dependent Thrombocytopenia Osteoarthritis Obstructive sleep apnea with non compliance to CPAP Obese class 3 Admission Diagnosis: Acute systolic heart failure (CMS/[facility]) [I50.21] Hospital course: History of Present Illness Fern Cardoso is an 62 y.o. female admitted from [facility] as a direct admit. She has history of hypertension diabetes obstructive sleep apnea not using CPAP or BiPAP he was admitted at [facility] with chief complaint of sudden onset of shortness of breath. According to patient she wake up in the morning 2 days back very short of breath denies any chest pain heart palpitation dizziness syncope weakness no increased cough or expectoration and no fever chills cough drops with the family to [facility] with she was noted to be [...] Telemetry strips and EKG were reviewed from [facility]. Strip labeled as V. tach is [...] obstructive sleep apnea who was admitted to [facility] with sudden onset shortness of breath found to have new onset heart failure and atrial fibrillation. Acute heart failure with mid range ejection fraction, 40% TTE 05/06/23 NYHA class II Atrial fibrillation/flutter, [id number] 4 (female-1, heart failure-1, diabetes mellitus-1, Hypertension-1) [...] Center 05/17/2023 1:00 PM Regina Stark MD [facility]LA[facility] 06/08/2023 2:40 PM Jose Luis Cronin MD ELAINE Singh Your medication list START taking these medications Instructions Last Dose Given Next Dose Due amiodarone 400 mg tablet Commonly known as: Pacerone Take 1 tablet (400 mg) by mouth (more content not included)...[facility] [facility] NoteNutrition Screening Assessment: Patient Name: Fern [...] Orders (From admission, onward) Start Ordered 05/07/23 1427 Regular Diet Heart Healthy/HTN, CABG,Stroke, (2gNA, low [...] with questions and contact the dietitian via [employer] 8A-4P Wednesday-Wednesday. Or call the dietitian's office at [email or web address] [phone]. For s/holidays, the dietitian's can be reached by paging [phone] from 9A-3P. Unable to be reached via [employer] on Wednesday & s.)[facility]01-22-2024 [facility] Medicine Daily Progress Note - 05/10/2023 12:14 PM; Room: 3131/3131-01 Admission: 05/05/2023 7:10 PM; Length of stay: 5 days THE HOSPITALIST TEAM PREFERS TO USE Prepared Response FOR COMMUNICATION 7AM-7PM. IF I DO NOT RESPOND WITHIN 15 MINUTES, PLEASE PAGE ME/CALL THROUGH THE FAMILY LIFE EDUCATOR. FROM 7PM-7AM, PLEASE PAGE [phone](COVR) Code Status: Full Code Barriers to Discharge: [...] Assessment and Plan Atrial fibrillation with RVR- [id number] score 4 - resumed eliquis - amio [...] days Lab Units 05/10/23 1113 05/10/23 0754 05/09/23 2014 05/09/23 1615 05/09/23 1103 05/09/23 0741 POCT GLUCOSE mg/dL 162* 111* 145* 118* 152* 105 Historical Values: (Includes values prior to this admission) Lab Results Component Value Date TSH 5.84 (H) 05/06/2023 FREET4 1.08 05/06/2023 No results found for: [id number] , IRON , TIBC , C3 , [...] cardiovascular factor modificati (more content not included)... [facility]01-22-2024 NotePt admitted to hospital for acute on chronic systolic HF, hx of HTN, DM, RAVI w/o CPAP compliance. Pt's echo from 05/06/23 estimated LVEF 40%, which does not qualify pt for cardiac rehab (CR) therapy with HF diagnosis per CMS eligibility criteria. I will watch for updates and follow up with pt, if appropriate. NICHELLE RosalesN account services associate Outpatient Coordinator [facility] Note Cardiology Progress Note Subjective F/U Acute [...] Value Ventricular Rate 81 Atrial Rate 81 [place] Interval 208 QRS DURATION 178 QT Interval 442 QTC CALCULATION(BAZETT) 513 P [place] 34 R-[place] -48 T Wave [place] 101 Impression Normal sinus rhythm Left axis [...] internal jugular vein was obtained. A 6 Turkmen 11 cm sheath was inserted without difficulty. [...] left radial artery was obtained. A 6 Turkmen glide sheath was inserted without difficulty. Difficulty advancing the [place] wire was encountered; therefore this was removed. Angiography was performed via the JR catheter. T (more content not included)...[facility]01-21-2024 NoteHospital Medicine Daily Progress Note - 05/09/2023 12:26 PM; Room: 3131/3131-01 Admission: 05/05/2023 7:10 PM; Length of stay: 4 days THE HOSPITALIST TEAM PREFERS TO USE Prepared Response FOR COMMUNICATION 7AM-7PM. IF I DO NOT RESPOND WITHIN 15 MINUTES, PLEASE PAGE ME/CALL THROUGH THE FAMILY LIFE EDUCATOR. FROM 7PM-7AM, PLEASE PAGE [phone](COVR) Code Status: Full Code Barriers to Discharge: [...] Problems Principal Problem: Acute systolic heart failure ([facility]) Assessment and Plan Atrial fibrillation with RVR- [id number]-[id number] score 4 - currently on metoprolol - [...] FREET4 1.08 05/06/2023 No results found for: [id number] , IRON , TIBC , C3 , [...] for heart failure with (more content not included)...[facility]01-21-2024 Note Attestation signed by Adenike Serrano [...] Value Ventricular Rate 81 Atrial Rate 81 IL Interval 208 QRS DURATION 178 QT Interval 442 QTC CALCULATION(BAZETT) 513 P [place] 34 R-[place] -48 T Wave [place] 101 Impression Normal sinus rhythm Left axis deviation Left bundle branch block Abnormal ECG When compared with ECG of 13-FEB-2013 09:22, No significant change was found Confirmed by Jose Luis Cronin ([id number]) on 05/05/2023 9:15:31 PM Lab Results Component Value Date TROPONINI 0.01 05/06/2023 Complete Echo (TTE) w/wo Imaging Agent, Strain, 3D, Bubble Study Result Date: 05/06/2023 1 1 [facility] Heart Station [address] [place] [address] [phone] (fax) Echocardiogram-[facility] Name: FERN CARDOSO Study Date: 05/06/2023 08:24 AM B/P: 131 mmHg/56 mmHg HR: 80 bpm Date of : 1960 Location: [facility] Height: 65 in. Age: 62 year(s) Patient Room: [facility] Weight: 352 lb. Gender: Female Patient Status: [...] 2.4 cm?? Findings Left (more content not included)...[facility]01-20-2024 Note Attestation signed by Adenike Serrano [...] Value Ventricular Rate 81 Atrial Rate 81 IL Interval 208 QRS DURATION 178 QT Interval 442 QTC CALCULATION(BAZETT) 513 P [place] 34 R-[place] -48 T Wave [place] 101 Impression Normal sinus rhythm Left axis deviation Left bundle branch block Abnormal ECG When compared with ECG of 13-FEB-2013 09:22, No significant change was found Confirmed by Jose Luis Cronin ([id number]) on 05/05/2023 9:15:31 PM Lab Results Component Value Date TROPONINI 0.01 05/06/2023 Complete Echo (TTE) w/wo Imaging Agent, Strain, 3D, Bubble Study Result Date: 05/06/2023 1 1 [facility] Heart Station [address] [place] [address] [phone] (fax) Echocardiogram-[facility] Name: FERN CARDOSO Study Date: 05/06/2023 08:24 AM B/P: 131 mmHg/56 mmHg HR: 80 bpm Date of : 1960 Location: [facility] Height: 65 in. Age: 62 year(s) Patient [...] cm Mitral Valv (more content not included)... [facility]01-20-2024 NoteHospital Medicine Daily Progress Note - 05/08/2023 8:40 AM; Room: 313/3131-01 Admission: 05/05/2023 7:10 PM; Length of stay: 3 days THE HOSPITALIST TEAM PREFERS TO USE [employer] CHAT FOR COMMUNICATION 7AM-7PM. IF I DO NOT RESPOND WITHIN 15 MINUTES, PLEASE PAGE ME/CALL THROUGH THE FAMILY LIFE EDUCATOR. FROM 7PM-7AM, PLEASE PAGE [phone](COVR) Code Status: Full Code Barriers to Discharge: [...] Assessment and Plan Atrial fibrillation with RVR- [id number]-RFCv score 4 - currently on metoprolol - [...] from last 7 days Lab Units 05/07/23 0426 05/06/23 0542 05/05/23 2358 WBC AUTO 10*3/uL 4.25 [...] last 7 days Lab Units 05/08/23 0715 05/07/233 05/07/23 1151 05/06/23 2104 05/06/23 1706 05/06/23 1122 POCT GLUCOSE mg/dL 118* 125* 101 105 116* 131* Historical Values: (Includes values prior to this admission) Lab Results Component Value Date TSH 5.84 (H) 05/06/2023 FREET4 1.08 05/06/2023 No results found for: [id number] , IRON , TIBC , C3 , [...] midrange ejection fraction (H (more content not included)...[facility] 05-07-2023 NoteCardiovascular Laboratory Report FINAL IMPRESSIONS: [...] internal jugular vein was obtained. A 6 Turkmen 11 cm sheath was inserted without difficulty. [...] left radial artery was obtained. A 6 Turkmen glide sheath was inserted without difficulty. Difficulty [...] outline, coronary spasm was suspected. A 6 Turkmen JR4 guide catheter was advanced in over [...] Systolic dysfunction, exertional shortness of breath, wide-complex tachycardiaProtestant [facility]acon[facility]01-19-2024 Note Patient: Fern Cardoso Procedure Information Date/Time: 05/07/23 1700 Procedures: Coronary angiography Right heart cath Location: [facility] [employer] / [facility] (Cath) Providers: Regina Stark MD [...] Additional Equipment Requests Regina Stark MD, MPH, [facility], [facility], [facility] Interventional Cardiology Pager Email: [email or web address]01-19-2024 NoteCardiology Progress Note Subjective Subjective: Patient seen [...] ???F) Temporal 72 19 96 % -- 05/06/232141 -- -- -- 91 -- -- -- [...] Value Ventricular Rate 81 Atrial Rate 81 IL Interval 208 QRS DURATION 178 QT Interval 442 QTC CALCULATION(BAZETT) 513 P [place] 34 R-[place] -48 T Wave [place] 101 Impression Normal sinus rhythm Left axis deviation Left bundle branch block Abnormal ECG When compared with ECG of 13-FEB-2013 09:22, No significant change was found Confirmed by Jose Luis Cronin ([id number]) on 05/05/2023 9:15:31 PM Lab Results Component Value Date TROPONINI 0.01 05/06/2023 Complete Echo (TTE) w/wo Imaging Agent, Strain, 3D, Bubble Study Result Date: 05/06/2023 1 1 [facility] Heart Station [address] [place] [place] [address] [phone] (fax) Echocardiogram-[facility] Name: FERN CARDOSO Study Date: 05/06/2023 08:24 AM B/P: 131 mmHg/56 mmHg HR: 80 bpm Date of : 1960 Location: [facility] Height: 65 in. Age: 62 year(s) Patient [...] (pseudonormalized LV filling patte (more content not included)...[facility] 05-07-2023 NoteHospital Medicine Daily Progress Note - 05/07/2023 7:58 AM; Room: [address] [place] [address] Admission: 05/05/2023 7:10 PM; Length of stay: 2 days THE HOSPITALIST TEAM PREFERS TO USE Prepared Response FOR COMMUNICATION 7AM-7PM. IF I DO NOT RESPOND WITHIN 15 MINUTES, PLEASE PAGE ME/CALL THROUGH THE FAMILY LIFE EDUCATOR. FROM 7PM-7AM, PLEASE PAGE [phone](COVR) Code Status: No Order Barriers to Discharge: [...] 62 year-old female who is transferred from [facility] with chief complaint of sudden onset of shortness of breath and was found to been atrial fibrillation with RVR that was treated with Cardizem drip, further workup with echocardiogram shows ejection fraction of 40%. transferred to [facility] for further cardiac evaluation. Assessment: Atrial fibrillation with RVR- [id number] score 4 New onset of congestive heart [...] from last 7 days Lab Units 05/07/23 0426 05/06/23 0542 05/05/23 2358 WBC AUTO 10*3/uL 4.25 -- 5.73 HEMOGLOBIN g/dL 12.4 -- 13.0 HEMATOCRIT % 38.3 -- 39.9 MCV fL 88.2 -- 88.7 PLATELETS AUTO 10*3/uL 121* 121* 139* Chemistry: Results from last 7 days Lab Units 05/07/23 0426 05/06/23 0542 05/05/23 2112 SODIUM mmol/L 138 [...] 05/06/2023 FREET4 1.08 05/06/19 (more content not included)...[facility]01-18-2024 NoteHospital Medicine Daily Progress Note - 05/06/2023 9:19 AM; Room: [address] [place] [address] Admission: 05/05/2023 7:10 PM; Length of stay: 1 days THE HOSPITALIST TEAM PREFERS TO USE [employer] CHAT FOR COMMUNICATION 7AM-7PM. IF I DO NOT RESPOND WITHIN 15 MINUTES, PLEASE PAGE ME/CALL THROUGH THE FAMILY LIFE EDUCATOR. FROM 7PM-7AM, PLEASE PAGE [phone](COVR) Code Status: No Order Barriers to Discharge: [...] 62 year-old female who is transferred from [facility] with chief complaint of sudden onset of shortness of breath and was found to been atrial fibrillation with RVR that was treated with Cardizem drip, further workup with echocardiogram shows ejection fraction of 40%. transferred to [facility] for further cardiac evaluation. Assessment: Atrial fibrillation with RVR- WEP5LB2-RBBe score 3 New onset of congestive heart [...] FREET4 1.08 05/06/2023 No results found for: [id number] , IRON , TIBC , C3 , C4 , ILSA , CANCA , ASO , P (more content not included)...[facility] 05-05-2023 NoteHospital Medicine History and Physical 05/05/2023 9:20 PM THE HOSPITALIST TEAM PREFERS TO USE Prepared Response FOR COMMUNICATION 7AM-7PM. IF I DO NOT RESPOND WITHIN 15 MINUTES, PLEASE PAGE ME/CALL THROUGH THE FAMILY LIFE EDUCATOR. FROM 7PM-7AM, PLEASE PAGE [phone](COVR) Chief Complaint No chief complaint on file. History of Present Illness Fern Cardoso is an 62 y.o. female admitted from [facility] as a direct admit. She has history of hypertension diabetes obstructive sleep apnea not using CPAP or BiPAP he was admitted at [facility] with chief complaint of sudden onset of shortness of breath. According to patient she wake up in the morning 2 days back very short of breath denies any chest pain heart palpitation dizziness syncope weakness no increased cough or expectoration and no fever chills cough drops with the family to [facility] with she was noted to be [...] we will retrieve copy of echo from [facility] follow-up with cardiology New onset congestive heart failure/HFrEF CHF core measures in place metoprolol Cozaar diuretics and add Farxiga serial electrolytes creatinine reduced ejection fraction would need left heart cath to rule out ischemic heart disease Hypertension blood pressure control as above suspect underlying obstructive sleep apnea discussed with patient about follow-up with her P (more content not included)...[facility]11-17-2023 Evaluation note* Encounter Date Diagnosis Assessment [...] treatment plan. Patient left in stable condition [employer] Other Evaluation noteNo InformationNortGeewa Other History general Narrative - Reported* Type [...] knee arthroplasty 05/07 Hospitalization History see above [employer] Other Summary Purpose Family History No Family History Records FoundNo Family History Records FoundNo Family History Records FoundNo Family History Records FoundNo Family History Records Found Advance Directives No Advanced Directives Records FoundNo Advanced Directives Records FoundNo Advanced Directives Records FoundNo Advanced Directives Records FoundNo Advanced Directives Records Found Additional Source Comments INFORMATION SOURCE (unrecogn ized section and content) DATE CREATED AUTHOR 08/28/2018 [facility] DATE CREATED AUTHOR AUTHOR'S ORGANIZ ATION 05/07/[address] [facility] DATE CREATED AUTHOR AUTHOR'S ORGANIZ ATION 09/19/2021 [facility] DATE CREATED AUTHOR AUTHOR'S ORGANIZ ATION 02/27/2022 [facility] DATE CREATED AUTHOR AUTHOR'S ORGANIZ ATION 07/01/2023 [facility] REASON FOR VISIT (unrecogniz ed section and [...] BE BASED ON THE PRIMARY CLINICAL RECORDS. [facility] [employer] [facility]. provides no warranty or guarantee of the accuracy or completeness of information in this document.
[2023-07-09 11:22] LABS: Basophils Absolute Auto 0.1 10^3/uL (0.0-0.1); Basophils Percent Auto 1.2 % (0.2-2.0); Eosinophils Absolute Auto 0.2 10^3/uL (0.0-0.7); Eosinophils Percent Auto 4.3 % (0.9-7.0); Hematocrit 40.3 % (36.0-48.0); Hemoglobin 12.8 g/dL (12.0-16.0); Immature Granulocytes Abs Auto 0.01 10^3/uL (0.00-0.03); Immature Granulocytes Pct Auto 0.2 % (0.0-0.5); Lymphocytes Absolute Auto 1.5 10^3/uL (1.2-3.8); Lymphocytes Percent Auto 34.8 % (20.5-60.0); Mean Corpuscular HGB Conc 31.8 g/dL (29.9-35.2); Mean Corpuscular Volume 91.4 fL (81.0-99.0); Mean Platelet Volume 12.4 fL (9.5-13.5); Monocytes Absolute Auto 0.3 10^3/uL (0.3-0.8); Monocytes Percent Auto 7.6 % (1.7-12.0); Neutrophils Absolute Auto 2.2 10^3/uL (1.4-6.5); Neutrophils Percent Auto 51.9 % (43.0-75.0); Platelet Count 108 10^3/uL (150-450); Red Blood Count 4.41 10^6/uL (4.20-5.40); Red Cell Distribution Width 15.3 % (11.0-15.0); White Blood Count 4.2 10^3/uL (4.0-11.0)
[2023-07-09 11:46] LABS: Anion Gap 13.6; BUN Creatinine Ratio 14.2; Calcium 8.9 mg/dL (8.5-10.1); Carbon Dioxide 30.1 mmol/L (21.0-32.0); Chloride 102 mmol/L (98-107); Estimated GFR (African America 52 (>=60); Estimated GFR (Non-African Ame 43 (>=60); Glucose 114 mg/dL (74-106); Potassium 3.7 mmol/L (3.5-5.1); Sodium 142 mmol/L (136-145)
== END 2023-07-09 10:44 | disposition home or self-care (01) ==
LOC: LAB 10:47
PROVIDERS: PCP Family Medicine; Visit Provider Internal Medicine Cardiovascular Disease
DX: I48.0 Paroxysmal atrial fibrillation (principal)
CPT/HCPCS: 36415; 80048; 85025

== ENCOUNTER 2023-08-28 08:49 | Outpatient (OUT) | payer OTHER, SELFPAY ==
--- OUTSIDE RECORDS SUMMARY | 2023-08-28 08:53 | XMS_ITS | CCD ---
Author Organization [facility] Care Team Providers Care Ops Manager Name Role Phone Hans Whiteside Attending Unavailable BenjaminForeign Primary Care Unavaila ble BENJAMIN, DR FOREIGN Torres Consulting Unavailable BENJAMIN, DR FOREIGN Torres Primary Care Unavailable BENJAMIN, DR FOREIGN Torres Admitting Unavailable BENJAMIN, DR FOREIGN Torres Attending Unavailable BENJAMIN, DR FOREIGN Torres Primary Care Unavailable BENJAMIN, DR FOREIGN Torres Admitting Unavailable BENJAMIN, DR FOREIGN Torres Attending Unavailable BENJAMIN, DR FOREIGN Torres Consulting Unavailable BENJAMIN, DR FOREIGN Torres Primary Care Unavailable BENJAMIN, DR FOREIGN Torres Admitting Unavailable Zieber, DR Layton Consulting Unavailable BENJAMIN, DR FOREIGN Torres Attending Unavailable BENJAMIN, DR FOREIGN Torres Consulting Unavailable Etta Gordon Unavailable Foreign Benjamin Unavailable REGINA STARK Attending Unavailable ADENIKE SERRANO Referring Unavailable MATTY, GUILLERMO Admitting Unavailable HEAVEN DOWD Attending Unavailable JOSE LUIS CRONIN Admitting Unavailable JOSE LUIS CRONIN Attending Unavailable JOSE LUIS CRONIN Referring Unavailable SEBAS BAKER Referring Unavailable SANSEBAS ESCALONA Referring Unavailable SANSEBAS ESCALONA Referring Unavailable JOSE LUIS CRONIN Attending Unavailable LARA ROLAND Attending Unavailable ASUNCION, LARA Attending Unavailable BENY LANG Attending Unavailable Allergies Allergy Classification Reported Allergen(s) Allergy Type Date of Onset Reaction(s) Facility (3 sources) Penicillins; Translations: [PENICILLINS] Drug allergy (disorder) 02-07-20 13 [facility] (7 sources) Ciprofloxacin Drug Allergy 08-12-19 24 Comment:nausea and diarrhea [facility] (7 sources) Penicillin G Drug Allergy 08-12-19 24 [facility] (7 sources) traMADol Drug Allergy 06-25-19 16 Unknown, [facility] (6 sources) Substance with penicillin structure and antibacterial mechanism of action (substance) Drug allergy 12-23-19 13 Unknown Novacem Other (6 sources) patient allergy list reviewed by nurse or physicia Propensity to adverse reactions 11-11-19 19 Comment:Done Novacem Other (6 sources) TraMADol & Dietary Manage Prod *ANALGESICS - OPIOI Propensity to adverse reactions 06-25-19 16 Unknown Novacem Other (6 sources) Allergies Reconciled Propensity to adverse reactions Unknown Novacem Other Medications Current Medications Medication Drug Class(es) Dates Sig (Normalized) Sig (Original) amiodarone hydrochloride 400 mg oral tablet (4 sources) Antiarrhythmic Start: 06-18-2023 take 400 mg by mouth once daily Amiodarone Active 400 MG PO Daily June 18, 2023 1:00am take 1 tablet by dayday th every twenty-four hours Amiodarone HCl 400 MG 1 tablet Orally Once a day Active apixaban 5 mg oral tablet (4 sources) Factor Xa Inhibitor Start: 06-18-2023 take 5 mg by mouth twice daily Apixaban Active 5 MG PO Twice daily June 18, 2023 1:00am take 1 tablet by mouth twice ruth ly Apixaban 5 MG 1 tablet Orally Twice a day Active aspirin 81 mg delayed release oral tablet (2 sources) Platelet Aggregation Inhibitor, Nonsteroidal Anti-inflammatory Drug Start: 07-14-2018 take 81 mg by mouth twice daily Aspirin Active 81 MG PO Twice daily 40 20 July 14, 2018 12:00am Start: 06-22-2018 End: 07-14-2018 take 81 mg by mouth once daily Aspirin Discontinued 81 MG PO Daily June 22, 2018 1:00am July 14, 2018 12:23pm ASPIRIN 81 MG - this medication is not being screened (6 sources) Start: 02-20-2010 ASPIRIN 81 MG - this medication is not being screened ASPIRIN 81 MG - this medication is not being screened( ) Active -Hx Entry for 0 *Reorder from [facility] for eRx and Interaction Alerts* Feb, Active [...] Jan, Active bumetanide 1 mg oral tablet (5 sources) Loop Diuretic Start: 06-18-2023 End: 08-12-2023 take 1 mg by mouth once daily Bumetanide Active 1 MG PO Daily August 12, 2023 12:00am take 1 tablet by dayday th every twenty-four hours Bumetanide 1 MG 1 tablet Orally Once a day Active carvedilol 6.25 mg oral tablet (4 sources) alpha-Adrenergic Saman, beta-Adrenergic Saman Start: 06-18-2023 take 6.25 mg by mouth twice daily Carvedilol Active 6.25 MG PO Twice daily June 18, 2023 1:00am take 1 tablet by dayday th every twelve hours Carvedilol 6.25 MG 1 tablet with food Orally Twice a day Active dapagliflozin 10 mg oral tablet (4 sources) Sodium-Glucose Cotransporter 2 Inhibitor Start: 06-18-2023 take 10 mg by mouth once daily Dapagliflozin Propanediol Active 10 MG PO Daily June 18, 2023 1:00am take 1 tablet by mouth once alvarez y Dapagliflozin Propanediol 10 MG 1 tablet Orally Once a day Active diclofenac sodium 75 mg delayed release oral tablet (11 sources) Nonsteroidal Anti-inflammatory Drug Start: 06-18-2023 take 75 mg by mouth twice daily Diclofenac Sodium Active 75 MG PO Twice daily June 18, 2023 1:00am Start: 11-27-2021 take 1 tablet by dayday th twice daily Diclofenac Sodium 75MG Diclofenac Sodium 75MG, 1 Tablet Tablet twice a day # 0, 11/27/2021, No Refill. Active Oral twice a day for 0 *Pick strength-form from [facility]al [facility] for eRX* Nov, Active Start: 06-22-2018 End: 07-14-2018 take 75 mg by mouth once daily in the morning Diclofenac Sodium Discontinued 75 MG PO Every morning June 22, 2018 1:00am July 14, 2018 12:23pm take 1 tablet by dayday th twice daily at mealtime Diclofenac Sodium 75 MG TAKE 1 TABLET BY MOUTH TWICE DAILY WITH FOOD for 90 Not-Taking/PRN magnesium oxide 400 mg oral tablet (4 sources) Start: 06-18-2023 take 400 mg by mouth once daily Magnesium Oxide Active 400 MG PO Daily June 18, 2023 1:00am take 1 tablet by dayday th every twenty-four hours Magnesium Oxide 400 MG 1 tablet as needed Orally Once a day Active 24 hr metFORMIN hydrochloride 500 mg extended release oral tablet (13 sources) Biguanide Start: 06-18-2023 take 500 mg by mouth once daily in the evening Metformin Active 500 MG PO Every evening June 18, 2023 1:00am Start: 03-16-2022 take 1 tablet by dayday th once daily in the evening Metformin 500mg metFORMIN 500mg, 1 (one) Tablet every evening # 0, 03/16/2022, No Refill. Active oral every evening for 0 *Reorder from [facility] for eRx and Interaction Alerts* Feb, Active take 1 tablet by dayday th once daily in the evening metFORMIN HCl ER 500 MG TAKE 1 TABLET BY MOUTH EVERY EVENING for 90 Active metFORMIN HCl No t-Taking/PRN metFORMIN HCl No t-Taking metoprolol tartrate 50 mg oral tablet (11 sources) beta-Adrenergic Saman Start: 09-02-2021 take 1 tablet by mouth once daily Metoprolol Succinate ER 50MG Metoprolol Succinate ER 50MG, 1 (one) Tablet Tablet daily # 0, 09/02/2021, No Refill. Active Oral daily for 0 *Pick strength-form from [facility] for eRX* August, Active Start: 07-14-2018 End: 06-18-2023 take 50 mg by mouth every twelve hours Metoprolol Tartrate Discontinued 50 MG PO Q12H 60 30 July 14, 2018 12:00am June 18, 2023 3:38pm Start: 06-22-2018 End: 07-14-2018 take 50 mg by mouth once daily in the morning Metoprolol Tartrate Discontinued 50 MG PO Every morning June 22, 2018 1:00am July 14, 2018 12:27pm take 1 tablet by dayday th every twenty-four hours Metoprolol Succinate ER 50 MG 1 tablet Orally Once a day for 90 days Active take 1 tablet by dayday th every twelve hours Metoprolol Tartrate 50 MG 1 tablet Orally Twice a day for 30 day(s) Not-Taking/PRN Multivitamin preparation (3 sources) Multivitamin Act estela predniSONE 20 mg oral tablet (3 sources) Start: 03-05-20 23 take 1 tablet by mouth every twelve hours prednisone 20 MG 1 tablet Orally BID for 5 Feb, Active spironolactone 25 mg oral tablet (4 sources) Aldosterone Antagonist Start: 06-18-19 24 take 25 mg by mouth once daily Spironolactone Active 25 MG PO Daily June 18, 2023 1:00am Spironolactone 2 5 MG 1 tablet Orally Active sulfamethoxazole 800 mg / trimethoprim 160 mg oral tablet (3 sources) Dihydrofolate Reductase Inhibitor Antibacterial, Sulfonamide Antimicrobial Start: 01-20-2022 take 1 tablet by mouth twice daily Sulfamethoxazole-Trimethoprim 800-160 MG sulfamethoxazole-trimethoprim 800-160mg, 1 (one) Tablet two times daily # 20, 01/20/2022, No Refill. Active Oral two times daily for 0 Jan, Active Completed/Discontinued Medications Medication Drug Class(es) Dates Sig (Normalized) Sig (Original) acetaminophen 325 mg oral tablet (1 source) Start: 07-14-2018 End: 06-18-2023 take 650 mg by mouth every four hours Acetaminophen Discontinued 650 MG PO Q4H 0 July 14, 2018 12:00am June 18, 2023 3:36pm amitriptyline hydrochloride 25 mg oral tablet (6 sources) Tricyclic Antidepressant Start: 09-17-2021 Amitriptyline HCl 25MG Amitriptyline HCl 25MG, 1 (one) Tablet Tablet at bedtime # 30, 09/17/2021, No Refill. Active Oral at bedtime for 0 *Pick strength-form from [facility] for eRX* Sep, Not-Taking/PRN take 1 tablet [...] a day for 10 day(s) Sep, Not-Taking/PRN docusate sodium 100 mg oral capsule (1 source) Start: 07-14-2018 End: 06-18-2023 take 100 mg by mouth twice daily Docusate Sodium Discontinued 100 MG PO Twice daily 60 30 July 14, 2018 12:00am June 18, 2023 3:38pm 0.4 ml enoxaparin sodium 100 mg/ml prefilled syringe (1 source) Low Molecular Weight Heparin Start: 07-06-2018 End: 07-14-2018 Enoxaparin (Lovenox) 40 mg/0.4 mL Syringe Discontinued 40 MG SUBCUT Every 12 hours at 1000 & 2200 July 06, 2018 12:00am July 14, 2018 12:23pm hydrOXYzine pamoate 50 mg oral capsule (2 sources) Antihistamine Start: 07-06-2018 End: 07-14-2018 take 25 mg by mouth every three hours Hydroxyzine Pamoate Discontinued 25 MG PO Q3H July 06, 2018 12:00am July 14, 2018 12:24pm Start: 07-06-2018 End: 07-14-2018 take 50 mg by mouth every three hours Hydroxyzine Pamoate Discontinued 50 MG PO Q3H July 06, 2018 12:00am July 14, 2018 12:23pm Ketorolac (12 sources) Nonsteroidal Anti-inflammatory Drug, Cyclooxygenase Inhibitor Start: 06-09-2020 Toradol p er 15 mg May, 30 mg Start: 11-13-2016 Toradol per 15 mg Oct, 30 mg midodrine hydrochloride 5 mg oral tablet (1 source) alpha-Adrenergic Agonist Start: 06-21-2023 End: 08-12-2023 take 1 dose by mouth once daily at bedtime Midodrine Discontinued 5 MG PO Three times daily June 21, 2023 1:00am August 12, 2023 11:11am do not give last dose of day after 6PM or within 4 hrs of bedtime Multivitamin (Multiple Vitamins) Tablet (1 source) Start: 06-22-2018 End: 07-14-2018 take 1 tablet by mouth once daily Multivitamin (Multiple Vitamins) Tablet Discontinued 1 TAB PO Daily June 22, 2018 1:00am July 14, 2018 12:27pm Multivitamin With Folic Acid (Thera) 400 mcg Tablet (1 source) Start: 07-14-2018 End: 06-18-2023 take 1 tablet by mouth once daily Multivitamin With Folic Acid (Thera) 400 mcg Tablet Discontinued 1 TAB PO Daily July 14, 2018 12:00am June 18, 2023 3:38pm oxyCODONE hydrochloride 5 mg oral tablet (5 sources) Opioid Agonist Start: 07-14-2018 End: 06-18-2023 take 5 mg by mouth every six hours Oxycodone Discontinued 5 MG PO Every 6 hours 05 09July 14, 2018 12:00am June 18, 2023 3:38pm Start: 07-06-2018 End: 07-14-2018 take 10 mg by mouth every four hours Oxycodone Discontinued 10 MG PO Every 4 hours July 06, 2018 2:17pm July 14, 2018 12:27pm Start: 07-06-2018 End: 07-14-2018 take 5 mg by mouth every four hours Oxycodone Discontinued 5 MG PO Every 4 hours July 06, 2018 2:17pm July 14, 2018 12:28pm sacubitril 24 mg / valsartan 26 mg oral tablet (4 sources) Angiotensin 2 Receptor Saman Start: 06-18-2023 End: 08-12-2023 take 1 tablet by mouth twice daily Sacubitril-Valsartan (Entresto) 24-26 mg tablet Discontinued 1 TAB PO Twice daily June 18, 2023 1:00am August 12, 2023 11:12am take 1 tablet by mouth every twe lve hours Entresto 24-26 MG 1 tablet Orally Twice a day Active Triamcinolone (12 sources) Corticosteroid Start: 06-09-2020 Kenalog -40 mg May, 40 mg Start: 11-13-2016 KENALOG - 10 m g Oct, 40 mg vitamin b12 1 mg oral tablet (5 sources) Vitamin B12 Start: 06-22-2018 End: 06-18-2023 take 1000 ug by mouth once daily Cyanocobalamin (Vitamin B-12) Discontinued 1000 MCG PO Daily July 14, 2018 12:00am June 18, 2023 3:38pm Vitamin B 12 Act estela Problems Active Problems Problem Classification Problem Date Documented Da te Episodic/Chronic Acute and unspecified renal failure (1 source) Acute renal failure syndrome; Translations: [Acute kidney failure, unspecified] 03-31-2023 Episodic Acute bronchitis (12 sources) Acute bronchitis; Translations: [Acute bronchitis due to other specified organisms] Episodic Administrative/social admission (1 source) Other reduced mobility; Translations: [Impaired mobility and activities of daily living] 03-31-2023 Episodic Cardiac dysrhythmias (20 sources) Premature beats; Translations: [Other premature beats] Onset: 8 Chronic Chronic obstructive pulmonary disease and bronchiectasis (6 sources) Bronchitis; Translations: [Bronchitis, not specified as acute or chronic] Episodic Coagulation and hemorrhagic disorders (7 sources) Immune thrombocytopenic purpura; Translations: [Immune thrombocytopenic purpura] 03-31-2023 Chronic Complications of surgical procedures or medical care (2 sources) Hypotension due to drugs; Translations: [Hypotension due to drugs] Onset: 4 Episodic Conduction disorders (7 sources) Left bundle-branch block, unspecified; Translations: [Left bundle branch block] Onset: 9 Chronic Congestive heart failure; nonhypertensive (10 sources) Congestive heart failure; Translations: [Heart failure, unspecified] Onset: 4 Chronic Deficiency and other anemia (7 sources) Anemia; Translations: [Anemia, unspecified] Onset: 9 03-31-2023 Episodic Diabetes mellitus with complications (8 sources) Hyperglycemia due to type 2 diabetes mellitus; Translations: [Type 2 diabetes mellitus with hyperglycemia] 06-18-2023 Chronic Diabetes mellitus without complication (6 sources) Impaired fasting glycemia; Translations: [Impaired fasting glucose] Episodic Essential hypertension (13 sources) Essential hypertension; Translations: [Essential (primary) hypertension] Onset: 1 Chronic Fluid and electrolyte disorders (1 source) Hypokalemia; Translations: [Hypokalemia] 03-31-2023 Episodic Genitourinary symptoms and ill-defined conditions (6 sources) Finding of frequency of urination; Translations: [Frequency of micturition] Episodic Osteoarthritis (20 sources) Osteoarthritis; Translations: [Unspecified osteoarthritis, unspecified site] Onset: 7 Chronic Other circulatory disease (6 sources) Elevated blood-pressure reading without diagnosis of hypertension; Translations: [Elevated blood-pressure reading, without diagnosis of hypertension] Episodic Other connective tissue disease (7 sources) History of total knee arthroplasty; Translations: [Presence of right artificial knee joint] 03-31-2023 Chronic Other connective tissue disease (6 sources) Pain in limb; Translations: [Pain in right finger(s)] Episodic Other diseases of bladder and urethra (7 sources) Overactive bladder; Translations: [Overactive bladder] Onset: 3 06-18-2023 Chronic Other gastrointestinal disorders (6 sources) Irritable bowel syndrome with diarrhea; Translations: [Irritable bowel syndrome with diarrhea] Chronic Other gastrointestinal disorders (6 sources) Diarrhea; Translations: [Diarrhea, unspecified] Episodic Other nervous system disorders (1 source) Postoperative pain ; Translations: [Other acute postprocedural pain] 03-31-2023 Episodic Other nutritional; endocrine; and metabolic disorders (6 sources) Morbid obesity; Translations: [Morbid (severe) obesity due to excess calories] Onset: 5 Chronic Other nutritional; endocrine; and metabolic disorders (13 sources) Body mass index 40+ - severely obese; Translations: [Body mass index (BMI) 60.0-69.9, adult] 03-31-2023 Chronic Other screening for suspected conditions (not mental disorders or infectious disease) (13 sources) Abnormal electrocardiogram [ECG] [EKG]; Translations: [Other abnormal and inconclusive findings on diagnostic imaging of breast] Onset: 9 Episodic Other upper respiratory disease (6 sources) Seasonal allergic rhinitis; Translations: [Other seasonal allergic rhinitis] Onset: 7 Chronic Other upper respiratory disease (6 sources) Allergic rhinitis; Translations: [Allergic rhinitis, unspecified] Chronic Other upper respiratory infections (6 sources) Sinusitis; Translations: [Chronic sinusitis, unspecified] Chronic Phlebitis; thrombophlebitis and thromboembolism (1 source) H/O: Deep vein thrombosis; Translations: [Personal history of other venous thrombosis and embolism] 07-06-2018 Episodic Residual codes; unclassified (10 sources) Obstructive sleep apnea syndrome; Translations: [Obstructive sleep apnea (adult) (pediatric)] Onset: 4 06-18-2023 Chronic Residual codes; unclassified (1 source) Obstructive [...] Classification Problem Date Documented Da te Episodic/Chronic Nonspecific chest pain (6 sources) Chest pain; [...] with and (suspected) exposure to covid-19 Z20.822 Unclassified (1 source) Lack of stamina; Translations: [Impaired endurance] 03-31-2023 Viral infection (1 source) COVID-19 Results Test Name Value Interpretation Reference Range Facility Office Visiton 08-12-2023 Follow-up visit [id number] Ngozi Cardoso 1960 F Date Provider Department Center 08/12/2023 BENY LAZAR [facility] Family History Problem Relation Age of Onset Heart attack Mother Stroke Mother Atrial fibrillation Father Heart attack Brother Stroke Brother Family Status - Relation Status Age at Mother Father Brother Level of Service:93968 [place] OFFICE/OUTPATIENT ESTABLISHED MOD MDM 30 MIN Reason for Visit and Comments: Atrial Fibrillation [80] Congestive Heart Failure [127] Normal [facility] 36on 07-19-2023 36 Can wait to see how she does Normal [facility] HPon 07-12-2023 [facility] Electrophysiology Consult Note Reason for visit: Afib HPI: Ngozi Cardoso is a 62 y.o. year old with past medical history of hypertension diabetes obstructive sleep apnea was admitted to [facility] with shortness of breath and was [...] Atrial fibrillation (CMS/HCC) CHF (congestive heart failure) ([facility]/HCC) Diabetes mellitus (CMS/HCC) Hypertension PSH: Past Surgical [...] file (05/05/2023) Utilities: Not At Risk (05/05/2023) [facility] Utilities Threatened with loss of utilities: [...] Arteries: bilateral no (more content not included)... Normal [facility] NURSNOTEon 07-12-2023 NURSNOTE RN educated pt on d/ c instructions. RN encouraged pt to voice any questions or concerns. Pt verbalizes no questions or concerns at this time. Pt was wheeled off of unit with all of belongings. Normal [facility] Basophils Auto (Bld) [#/Vol] on 07-09-2023 Basophils (Bld) [#/Vol] 0.1 10 3/uL 0.0-0.1 [facility] Basophils/100 WBC Auto (Bld) on 07-09-2023 Basophils/100 WBC (Bld) 1.2 % 0.2-2.0 [facility] Eosinophils/100 WBC Auto (Bl d)on 07-09-2023 Eosinophils/100 WBC (Bld) 4.3 % 0.9-7.0 [facility] Erythrocyte distribution wid th Auto (RBC) [Ratio]on 07-09-2023 Erythrocyte distribution width (RBC) [Ratio] 15.3 % 11.0-15.0 [facility] Estimated glomerular filtrat ion rate (GFR) non- Americanon 07-09-2023 GFR/1.73 sq M.predicted among non-blacks MDRD (S/P/Bld) [Vol rate/Area] 43 mL/min/{1.73_m2} >=60 [facility] Hematocrit Auto (Bld) [Volum e fraction]on 07-09-2023 Hematocrit (Bld) [Volume fraction] 40.3 % 36.0-48.0 [facility] Hemoglobin [Mass/volume] in Bloodon 07-09-2023 Hemoglobin (Bld) [Mass/Vol] 12.8 g/dL 12.0-16.0 [facility] Laboratory - Chemistry and C hemistry - challengeon 07-09-2023 Calcium [Mass/Vol] 8.9 mg/dL 8.5-10.1 [facility] Chloride [Moles/Vol] 102 mmol/L 98-107 [facility] CO2 [Moles/Vol] 30.1 mmol/L 21.0-32.0 [facility] Creatinine [Mass/Vol] 1.27 mg/dL 0.55-1.02 [facility] GFR/1.73 sq M.predicted MDRD (S/P/Bld) [Vol rate/Area] 52 mL/min/{1.73_m2} >=60 [facility] Glucose [Mass/Vol] 114 mg/dL 74-106 [facility] Potassium [Moles/Vol] 3.7 mmol/L 3.5-5.1 [facility] Sodium [Moles/Vol] 142 mmol/L 136-145 [facility] Urea nitrogen [Mass/Vol] 18.0 mg/dL 7.0-18.0 [facility] Urea nitrogen/Creatinine [Mass ratio] 14.2 mg/mg [facility] Laboratory - Hematology and Cell countson 07-09-2023 Immature granulocytes/100 WBC (Bld) 0.2 % 0.0-0.5 [facility] Leukocytes [#/volume] correc renato for nucleated erythrocytes in Blood by Automated counon 07-09-2023 WBC corrected for nucl RBC Auto (Bld) [#/Vol] 4.2 10 3/uL 4.0-11.0 [facility] Lymphocytes Auto (Bld) [#/Vo l]on 07-09-2023 Lymphocytes (Bld) [#/Vol] 1.5 10 3/uL 1.2-3.8 [facility] Lymphocytes/100 WBC Auto (Bl d)on 07-09-2023 Lymphocytes/100 WBC (Bld) 34.8 % 20.5-60.0 [facility] MCH Auto (RBC) [Entitic mass ]on 07-09-2023 MCH (RBC) [Entitic mass] 29.0 pg 26.7-34.0 [facility] MCHC Auto (RBC) [Mass/Vol]on 07-09-2023 MCHC (RBC) [Mass/Vol] 31.8 g/dL 29.9-35.2 [facility] MCV Auto (RBC) [Entitic vol] on 07-09-2023 MCV (RBC) [Entitic vol] 91.4 fL 81.0-99.0 [facility] Monocytes Auto (Bld) [#/Vol] on 07-09-2023 Monocytes (Bld) [#/Vol] 0.3 10 3/uL 0.3-0.8 [facility] Monocytes/100 WBC Auto (Bld) on 07-09-2023 Monocytes/100 WBC (Bld) 7.6 % 1.7-12.0 [facility] Neutrophils Auto (Bld) [#/Vo l]on 07-09-2023 Neutrophils (Bld) [#/Vol] 2.2 10 3/uL 1.4-6.5 [facility] Neutrophils/100 WBC Auto (Bl d)on 07-09-2023 Neutrophils/100 WBC (Bld) 51.9 % 43.0-75.0 [facility] No Panel Informationon 07-08 Eosinophils # (Auto) 0.2 10 3/uL 0.0-0.7 [facility] Immature Granulocyte # (Auto) 0.01 10 3/uL 0.00-0.03 [facility] Platelet mean volume Auto (B ld) [Entitic vol]on 07-09-2023 Platelet mean volume (Bld) [Entitic vol] 12.4 fL 9.5-13.5 [facility] Platelets Auto (Bld) [#/Vol] on 07-09-2023 Platelets (Bld) [#/Vol] 108 10 3/uL 150-450 [facility] RBC Auto (Bld) [#/Vol]on RBC (Bld) [#/Vol] 4.41 10 6/uL 4.20-5.40 [facility] Serum or plasma anion gap de terminationon 07-09-2023 Anion gap [Moles/Vol] 13.6 mmol/L [facility] Orders Onlyon 07-08-2023 Orders Only [id number] Ngozi Cardoso 1960 Date Provider Department Center 07/08/2023 MIKE RODRIGUEZ [facility] [place] [facility] Family History Problem Relation Age of Onset Heart attack Mother Stroke Mother Atrial fibrillation Father Heart attack Brother Stroke Brother Family Status - Relation Status Age at Mother Father Brother Normal [facility] Office Visiton 06-30-2023 Follow-up visit [id number] Ngozi Cardoso 1960 Date Provider Department Center 06/30/2023 LARA [facility] Family History Problem Relation Age of Onset Heart attack Mother Stroke Mother Atrial fibrillation Father Heart attack Brother Stroke Brother Family Status - Relation Status Age at Mother Father Brother Level of Service:36088 [place] OFFICE/OUTPATIENT ESTABLISHED LOW MDM 20 MIN Normal [facility] Office Visiton 06-18-2023 Follow-up visit [id number] Ngozi Cardoso 1960 F Date Provider Department Center 06/18/2023 LARA [facility] Family History Problem Relation Age of Onset Heart attack Mother Stroke Mother Atrial fibrillation Father Heart attack Brother Stroke Brother Family Status - Relation Status Age at Mother Father Brother Level of Service:82486 [place] OFFICE/OUTPATIENT ESTABLISHED MOD MDM 30 MIN Normal [facility] Office Visiton 06-08-2023 Follow-up visit [id number] Ngozi Cardoso 1960 F Date Provider Department Center 06/08/2023 241-JOSE LUIS CRONIN CARD [facility] Family History Problem Relation Age of Onset Heart attack Mother Stroke Mother Atrial fibrillation Father Heart attack Brother Stroke Brother Family Status - Relation Status Age at Mother Father Brother Level of Service:00422 [place] OFFICE/OUTPATIENT NEW HIGH MDM 60 MINUTES [facility] Office Visiton 05-17-2023 Follow-up visit [id number] Ngozi Cardoso 1960 F Date Provider Department Center 05/17/2023 271-REGINA STARK CARD [facility] Family History Problem Relation Age of Onset Heart attack Mother Stroke Mother Atrial fibrillation Father Heart attack Brother Stroke Brother Family Status - Relation Status Age at Mother Father Brother Level of Service:13745 [place] OFFICE/OUTPATIENT ESTABLISHED LOW MDM 20 MIN [facility] 36on 05-12-2023 36 Discharge date: 05/11/23 Call date: 05/12/23 Spoke with: patient HF Follow-up date: 05/17/23 Med reconciliation completed: yes Questions/Concerns: Home meds reviewe with pt. Pt asked about [place] paperwork that her company was to fax over to the 3rd floor for the discharging provider. Retail General Manager will reach out to the Hospitalist team. Pt is aware of follow up appt. Retail General Manager encouraged pt to monitor daily weights and notified pt where to find education on her AVS to refer to. [facility] Documentationon 05-12-2023 Documentation [id number] Ngozi Cardoso 1960 F Date Provider Department Center 05/12/2023 SUSSY SOLO [facility] No family history on file Reason for Visit and Comments: HF inpatient satisfaction survey sent. [Other] [facility] Telephoneon 05-12-2023 Telephone [id number] Ngozi Cardoso 1960 F Date Provider Department Center 05/12/2023 [id number] WYATT [facility] No family history on file Reason for Visit and Comments: HF post discharge call [Other] [facility] 30on 05-11-2023 30 Problem: Pain - Adul t Goal: Verbalizes/displays adequate comfort level or baseline comfort level Outcome: Progressing Problem: Safety - Adult Goal: Free from fall injury Outcome: Progressing Flowsheets (Taken 05/11/2023 0746) Free from fall injury: Assess patient frequently for physical needs Identify cognitive and physical deficits and behaviors that affect risk of falls [place] fall precautions as indicated by assessment Modify [...] alleviate retention as needed Discuss catheterization for exterminator helper situations as appropriate The patient is Moderately Stable - Low risk of patient condition declining or worsening The patient's goals for the shift include comfort The clinical goals for the shift include safety Normal [facility] BASIC METABOLIC PANELon 04-20 Anion gap [Moles/Vol] 11 mmol/L Normal - [facility] Comment on above: Performed By: #### L [id number] #### [facility] ([facility] [address] [address] Calcium [Mass/Vol] 9.7 mg/dL Normal 8.6-10.3 [facility] Comment on above: Performed By: #### L [id number] #### [facility] ([facility]) [address] [place] [address] Chloride [Moles/Vol] 98 mmol/L Normal 98-107 [facility] Comment on above: Performed By: #### L [id number] #### [facility] ([facility]) [address] [place] [address] CO2 [Moles/Vol] 30 mmol/L Normal 21-31 [facility] Comment on above: Performed By: #### L [id number] #### [facility] ([facility]) [address] [place] [address] Creatinine [Mass/Vol] 0.80 mg/dL Normal 0.60-1.20 [facility] Comment on above: Performed By: #### L [id number] #### [facility] ([facility]) [address] [place] [address] GLOMERULAR FILTRATION RATE ML/MIN/1.73 SQ M.PREDICTED 83.8 mL/min/1.73m*2 Normal >60.0 [facility] Comment on above: Result Comment: The [facility]???s estimated glomerular filtration rate (eGFR) will [...] individuals. Performed By: #### L [id number] #### [facility] ([facility]) [address] [place] [address] Glucose [Mass/Vol] 116 mg/dL High 70-100 [facility] Comment on above: Performed By: #### L [id number] #### [facility] ([facility]) [address] [place] [address] Potassium [Moles/Vol] 3.7 mmol/L Normal 3.5-5.1 [facility] Comment on above: Performed By: #### L [id number] #### [facility] ([facility]) [address] [place] [address] Sodium [Moles/Vol] 135 mmol/L Low 136-145 [facility] Comment on above: Performed By: #### L [id number] #### [facility] ([facility]) [address] [place] [address] Urea nitrogen [Mass/Vol] 17 mg/dL Normal 7-25 [facility] Comment on above: Performed By: #### L [id number] #### [facility] ([facility]) [address] [place] [address] UREA NITROGEN/CREATININE (MASS RATIO) IN SER/PLAS 21.3 Normal [facility] Comment on above: Performed By: #### L [id number] #### [facility] ([facility]) [address] [place] [address] CBCon 05-11-2023 Erythrocyte distribution width (RBC) [Ratio] 15.2 % High 11.5-15.0 [facility] Comment on above: Performed By: #### L [id number] ####[facility] ([facility])[address] [place] [address] ERYTHROCYTE MEAN CORPUSCULAR HEMOGLOBIN CONCENTRATION (G/DL) BY AUTOMATED 31.9 g/dL Low 32.0-35.0 [facility] Comment on above: Performed By: #### L [id number] ####[facility] ([facility])[address] [place] [address] Hematocrit (Bld) [Volume fraction] 40.7 % Normal 36.0-48.0 [facility] Comment on above: Performed By: #### L [id number] ####[facility] ([facility])[address] [place] [address] Hemoglobin (Bld) [Mass/Vol] 13.0 g/dL Normal 12.0-15.0 [facility] Comment on above: Performed By: #### L [id number] ####[facility] ([facility])[address] [place] [address] MCH (RBC) [Entitic mass] 28.4 pg Normal 27.0-33.0 [facility] Comment on above: Performed By: #### L [id number] ####[facility] ([facility])[address] [place] [address] MCV (RBC) [Entitic vol] 88.9 fL Normal 82.0-98.0 [facility] Comment on above: Performed By: #### L [id number] ####[facility] ([facility])[address] [place] [address] PLATELETS (10*3/UL) IN BLOOD AUTOMATED COUNT 107 10*3/uL Low 150-400 [facility] Comment on above: Performed By: #### L [id number] ####[facility] ([facility])[address] [place] [address] RBC (Bld) [#/Vol] 4.58 10*6/uL Normal 3.80-5.00 [facility] Comment on above: Performed By: #### L [id number] ####[facility] ([facility])[address] [place] [address] WBC (Bld) [#/Vol] 4.32 10*3/uL Normal 4.00-10.60 [facility] Comment on above: Performed By: #### L [id number] ####[facility] ([facility])[address] [place] [address] LIPID PANELon 05-11-2023 CHOL/HDL 4.8 mg/dL Normal [facility] Comment on above: Performed By: #### L [id number] #### [facility] ([facility]) [address] [place] [address] Cholesterol [Mass/Vol] 152 mg/dL Normal 120-200 [facility] Comment on above: Performed By: #### L [id number] #### [facility] ([facility]) [address] [place] [address] Magnesium [Mass/Vol] 77 mg/dL Normal 40-149 [facility] Comment on above: Result Comment: TRIG LYCERIDE REFERENCE RANGE: 20 YEARS AND OLDER CARDIOVASCULAR RISK LESS THAN 150 mg/dL LOW RISK 150 TO 199 mg/dL BORDERLINE RISK 200 mg/dL AND GREATER HIGH RISK Performed By: #### L [id number] #### [facility] ([facility]) [address] [place] [address] Magnesium [Mass/Vol] 105 mg/dL Normal 0-160 [facility] Comment on above: Performed By: #### L [id number] #### [facility] ([facility]) [address] [place] [address] Magnesium [Mass/Vol] 32 mg/dL Normal 23-92 [facility] Comment on above: Performed By: #### L [id number] #### [facility] ([facility]) [address] [place] [address] NON HDL CHOL. (LDL+VLDL) 120 Normal [facility] Comment on above: Performed By: #### L [id number] #### [facility] ([facility]) [address] [place] [address] TOTAL VLDL-C 15 mg/dL Normal 0-40 [facility] Comment on above: Performed By: #### L [id number] #### [facility] ([facility]) [address] [place] [address] MAGNESIUMon 05-11-2023 Magnesium [Mass/Vol] 1.7 mg/dL Low 1.9-2.7 [facility] Comment on above: Performed By: #### L [id number] #### [facility] ([facility]) [address] [place] [address] POCT GLUCOSE METER UNSOLICIT ED RESULTSon 05-11-2023 Glucose [Mass/Vol] 114 mg/dL High 70-105 Michael lorenzo [facility] Comment on above: Order Comment: Waive d Testing in the ED is performed under the ED CLIA certificate #[id number]. Result Comment: [email or web address] Performed By: #### L [id number] #### [facility] ([facility]) [address] [place] [address] 30on 05-10-2023 30 The patient is Moderately Stable - Low risk of patient condition declining or worsening The patient's goals for the shift include comfort The clinical goals for the shift include safety Normal [facility] 30 Problem: Pain - Adul t Goal: Verbalizes/displays adequate comfort level or baseline comfort level Outcome: Progressing Problem: Safety - Adult Goal: Free from fall injury Outcome: Progressing Flowsheets (Taken 05/10/2023 0848) Free from fall injury: Assess patient frequently for physical needs Identify cognitive and physical deficits and behaviors that affect risk of falls [place] fall precautions as indicated by assessment Educate [...] goals for the shift include safety Normal [facility] BASIC METABOLIC PANELon 04-20 Anion gap [Moles/Vol] 8 mmol/L Normal 7-20 [facility] Comment on above: Performed By: #### L [id number] #### [facility] ([facility]) [address] [place] [address] Calcium [Mass/Vol] 9.7 mg/dL Normal 8.6-10.3 [facility] Comment on above: Performed By: #### L [id number] #### [facility] ([facility]) [address] [place] [address] Chloride [Moles/Vol] 99 mmol/L Normal 98-107 [facility] Comment on above: Performed By: #### L [id number] #### [facility] ([facility]) [address] [place] [address] CO2 [Moles/Vol] 33 mmol/L High 21-31 [facility] Comment on above: Performed By: #### L [id number] #### [facility] ([facility]) [address] [place] [address] Creatinine [Mass/Vol] 0.80 mg/dL Normal 0.60-1.20 [facility] Comment on above: Performed By: #### L [id number] #### [facility] ([facility]) [address] [place] [address] GLOMERULAR FILTRATION RATE ML/MIN/1.73 SQ M.PREDICTED 83.8 mL/min/1.73m*2 Normal >60.0 [facility] Comment on above: Result Comment: The [facility]???s estimated glomerular filtration rate (eGFR) will [...] individuals. Performed By: #### L [id number] #### [facility] ([facility]) [address] [place] [address] Glucose [Mass/Vol] 110 mg/dL High 70-100 [facility] Comment on above: Performed By: #### L [id number] #### [facility] ([facility]) [address] [place] [address] Potassium [Moles/Vol] 3.8 mmol/L Normal 3.5-5.1 [facility] Comment on above: Performed By: #### L [id number] #### [facility] ([facility]) [address] [place] [address] Sodium [Moles/Vol] 136 mmol/L Normal 136-145 [facility] Comment on above: Performed By: #### L [id number] #### [facility] ([facility]) [address] [place] [address] Urea nitrogen [Mass/Vol] 18 mg/dL Normal 7-25 [facility] Comment on above: Performed By: #### L [id number] #### [facility] ([facility]) [address] [place] [address] UREA NITROGEN/CREATININE (MASS RATIO) IN SER/PLAS 22.5 Normal [facility] Comment on above: Performed By: #### L [id number] #### [facility] ([facility]) [address] [place] [address] MAGNESIUMon 05-10-2023 Magnesium [Mass/Vol] 1.7 mg/dL Low 1.9-2.7 [facility] Comment on above: Performed By: #### L [id number] ####[facility] ([facility])[address] [place] [address] POCT GLUCOSE METER UNSOLICIT ED RESULTSon 05-10-2023 Glucose [Mass/Vol] 119 mg/dL High 70-105 [facility] Comment on above: Order Comment: Waive d Testing in the ED is performed under the ED CLIA certificate #[id number]. Result Comment: [email or web address] Performed By: #### L [id number] #### [facility] ([facility]) [address] [place] [address] Glucose [Mass/Vol] 141 mg/dL High 70-105 [facility] Comment on above: Order Comment: Waive d Testing in the ED is performed under the ED CLIA certificate #[id number]. Result Comment: [email or web address] Performed By: #### L [id number] #### [facility] ([facility]) [address] [place] [address] Glucose [Mass/Vol] 162 mg/dL High 70-105 [facility] Comment on above: Order Comment: Waive d Testing in the ED is performed under the ED CLIA certificate #[id number]. Result Comment: [email or web address] Performed By: #### L [id number] #### [facility] ([facility]) [address] [place] [address] Glucose [Mass/Vol] 111 mg/dL High 70-105 [facility] Comment on above: Order Comment: Waive d Testing in the ED is performed under the ED CLIA certificate #[id number]. Result Comment: [email or web address] Performed By: #### L [id number] #### [facility] ([facility]) [address] [place] [address] 30on 05-09-2023 30 The patient is Moderately [...] medication and electrolyte replacement as ordered Normal [facility] 30 The patient is Moderately Stable [...] maintained within prescribed range Outcome: Progressing Normal [facility] BASIC METABOLIC PANELon 04-20 Anion gap [Moles/Vol] 10 mmol/L Normal 7-20 [facility] Comment on above: Performed By: #### L [id number] #### [facility] ([facility]) [address] [place] [address] Calcium [Mass/Vol] 9.4 mg/dL Normal 8.6-10.3 [facility] Comment on above: Performed By: #### L [id number] #### [facility] ([facility]) [address] [place] [address] Chloride [Moles/Vol] 98 mmol/L Normal 98-107 [facility] Comment on above: Performed By: #### L [id number] #### [facility] ([facility]) [address] [place] [address] CO2 [Moles/Vol] 31 mmol/L Normal 21-31 [facility] Comment on above: Performed By: #### L [id number] #### [facility] ([facility]) [address] [place] [address] Creatinine [Mass/Vol] 0.90 mg/dL Normal 0.60-1.20 [facility] Comment on above: Performed By: #### L [id number] #### [facility] ([facility]) [address] [place] [address] GLOMERULAR FILTRATION RATE ML/MIN/1.73 SQ M.PREDICTED 72.7 mL/min/1.73m*2 Normal >60.0 [facility] Comment on above: Result Comment: The [facility]???s estimated glomerular filtration rate (eGFR) will [...] group of individuals. Performed By: #### L [id number] #### [facility] ([facility]) [address] [place] [address] Glucose [Mass/Vol] 102 mg/dL High 70-100 [facility] Comment on above: Performed By: #### L [id number] #### [facility] ([facility]) [address] [place] [address] Potassium [Moles/Vol] 4.0 mmol/L Normal 3.5-5.1 [facility] Comment on above: Performed By: #### L [id number] #### [facility] ([facility]) [address] [place] [address] Sodium [Moles/Vol] 135 mmol/L Low 136-145 [facility] Comment on above: Performed By: #### L [id number] #### [facility] ([facility]) [address] [place] [address] Urea nitrogen [Mass/Vol] 20 mg/dL Normal 7-25 [facility] Comment on above: Performed By: #### L [id number] #### [facility] ([facility]) [address] [place] [address] UREA NITROGEN/CREATININE (MASS RATIO) IN SER/PLAS 22.2 Normal [facility] Comment on above: Performed By: #### L [id number] #### [facility] ([facility]) [address] [place] [address] CBCon 05-09-2023 Erythrocyte distribution width (RBC) [Ratio] 15.7 % High 11.5-15.0 [facility] Comment on above: Performed By: #### L [id number] #### [facility] ([facility]) [address] [place] [address] ERYTHROCYTE MEAN CORPUSCULAR HEMOGLOBIN CONCENTRATION (G/DL) BY AUTOMATED 32.6 g/dL Normal 32.0-35.0 [facility] Comment on above: Performed By: #### L [id number] #### [facility] ([facility]) [address] [place] [address] Hematocrit (Bld) [Volume fraction] 39.6 % Normal 36.0-48.0 [facility] Comment on above: Performed By: #### L [id number] #### [facility] ([facility]) [address] [place] [address] Hemoglobin (Bld) [Mass/Vol] 12.9 g/dL Normal 12.0-15.0 [facility] Comment on above: Performed By: #### L [id number] #### [facility] ([facility]) [address] [place] [address] MCH (RBC) [Entitic mass] 28.8 pg Normal 27.0-33.0 [facility] Comment on above: Performed By: #### L [id number] #### [facility] ([facility]) [address] [place] [address] MCV (RBC) [Entitic vol] 88.4 fL Normal 82.0-98.0 [facility] Comment on above: Performed By: #### L [id number] #### [facility] ([facility]) [address] [place] [address] PLATELETS (10*3/UL) IN BLOOD AUTOMATED COUNT 124 10*3/uL Low 150-400 [facility] Comment on above: Performed By: #### L [id number] #### [facility] ([facility]) [address] [place] [address] RBC (Bld) [#/Vol] 4.48 10*6/uL Normal 3.80-5.00 [facility] Comment on above: Performed By: #### L [id number] #### [facility] ([facility]) [address] [place] [address] WBC (Bld) [#/Vol] 4.51 10*3/uL Normal 4.00-10.60 [facility] Comment on above: Performed By: #### L [id number] #### [facility] ([facility]) [address] [place] [address] MAGNESIUMon 05-09-2023 Magnesium [Mass/Vol] 1.9 mg/dL Normal 1.9-2.7 [facility] Comment on above: Performed By: #### L [id number] #### [facility] ([facility]) [address] [place] [address] POCT GLUCOSE METER UNSOLICIT ED RESULTSon 05-09-2023 Glucose [Mass/Vol] 145 mg/dL High 70-105 [facility] Comment on above: Order Comment: Waive d Testing in the ED is performed under the ED CLIA certificate #[id number]. Result Comment: [email or web address] Performed By: #### L [id number] #### [facility] ([facility]) [address] [place] [address] Glucose [Mass/Vol] 118 mg/dL High 70-105 [facility] Comment on above: Order Comment: Waive d Testing in the ED is performed under the ED CLIA certificate #[id number]. Result Comment: [email or web address] Performed By: #### L [id number] #### [facility] ([facility]) [address] [place] [address] Glucose [Mass/Vol] 152 mg/dL High 70-105 [facility] Comment on above: Order Comment: Waive d Testing in the ED is performed under the ED CLIA certificate #[id number]. Result Comment: [email or web address] Performed By: #### L [id number] #### [facility] ([facility]) [address] [place] [address] Glucose [Mass/Vol] 105 mg/dL Normal 70-105 [facility] Comment on above: Order Comment: Waive d Testing in the ED is performed under the ED CLIA certificate #[id number]. Result Comment: [email or web address] Performed By: #### L [id number] #### [facility] ([facility]) [address] [place] [address] 30on 05-08-2023 30 The patient is Moderately Stable - Low risk of patient condition declining or worsening The patient's goals for the shift include comfort The clinical goals for the shift include safety Normal [facility] 30 The patient is Moderately Stable [...] and maintained or improved Outcome: Progressing Normal [facility] 30 The patient is Moderately Stable - Low risk of patient condition declining or worsening The patient's goals for the shift include comfort The clinical goals for the shift include safety Normal [facility] APTTon 05-08-2023 ACTIVATED PARTIAL THROMBOPLASTIN TIME IN PPP BY COAGULATION ASSAY 36.7 Seconds High 25.0-35.0 [facility] Comment on above: Result Comment: Clin ical significance of the APTT is questionable in the presence of heparin. Performed By: #### L [id number] #### [facility] ([facility]) [address] [place] [address] BASIC METABOLIC PANELon 04-20 Anion gap [Moles/Vol] 10 mmol/L Normal 7-20 [facility] Comment on above: Performed By: #### L [id number] ####[facility] ([facility])[address] [place] [address] Calcium [Mass/Vol] 9.9 mg/dL Normal 8.6-10.3 [facility] Comment on above: Performed By: #### L [id number] ####[facility] ([facility])[address] [place] [address] Chloride [Moles/Vol] 99 mmol/L Normal 98-107 [facility] Comment on above: Performed By: #### L [id number] ####[facility] [facility] [place] [address] CO2 [Moles/Vol] 34 mmol/L High 21-31 [facility] Comment on above: Performed By: #### L [id number] ####[facility] ([facility])[address] [place] [address] Creatinine [Mass/Vol] 0.90 mg/dL Normal 0.60-1.20 [facility] Comment on above: Performed By: #### L [id number] ####[facility] ([facility])[address] [place] [address] GLOMERULAR FILTRATION RATE ML/MIN/1.73 SQ M.PREDICTED 72.7 mL/min/1.73m*2 Normal >60.0 [facility] Comment on above: Result Comment: [facility]???s estimated glomerular filtration rate (eGFR) will [...] of individuals. Performed By: #### L [id number] ####[facility] ([facility])[address] [place] [address] Glucose [Mass/Vol] 94 mg/dL Normal 70-100 [facility] Comment on above: Performed By: #### L [id number] ####[facility] ([facility])[address] [place] [address] Potassium [Moles/Vol] 3.5 mmol/L Normal 3.5-5.1 [facility] Comment on above: Performed By: #### L [id number] ####[facility] ([facility])[address] [place] [address] Sodium [Moles/Vol] 139 mmol/L Normal 136-145 [facility] Comment on above: Performed By: #### L [id number] ####[facility] ([facility])[address] [place] [address] Urea nitrogen [Mass/Vol] 18 mg/dL Normal 7-25 [facility] Comment on above: Performed By: #### L [id number] ####[facility] ([facility])[address] [place] [address] UREA NITROGEN/CREATININE (MASS RATIO) IN SER/PLAS 20.0 Normal [facility] Comment on above: Performed By: #### L [id number] ####[facility] ([facility])[address] [place] [address] MAGNESIUMon 05-08-2023 Magnesium [Mass/Vol] 1.3 mg/dL Low 1.9-2.7 [facility] Comment on above: Performed By: #### L [id number] ####[facility] ([facility])[address] [place] [address] POCT GLUCOSE METER UNSOLICIT ED RESULTSon 05-08-2023 Glucose [Mass/Vol] 121 mg/dL High 70-105 [facility] Comment on above: Order Comment: Waive d Testing in the ED is performed under the ED CLIA certificate #[id number]. Result Comment: [email or web address] Performed By: #### L [id number] #### [facility] ([facility]) [address] [place] [address] Glucose [Mass/Vol] 110 mg/dL High 70-105 [facility] Comment on above: Order Comment: Waive d Testing in the ED is performed under the ED CLIA certificate #[id number]. Result Comment: [email or web address] Performed By: #### L [id number] ####[facility] ([facility])[address] [place] [address] Glucose [Mass/Vol] 150 mg/dL High 70-105 [facility] Comment on above: Order Comment: Waive d Testing in the ED is performed under the ED CLIA certificate #[id number]. Result Comment: [email or web address] Performed By: #### L [id number] ####[facility] ([employer])[address] [place] [address] Glucose [Mass/Vol] 118 mg/dL High 70-105 [facility] Comment on above: Order Comment: Waive d Testing in the ED is performed under the ED CLIA certificate #[id number]. Result Comment: [email or web address] Performed By: #### L [id number] ####[facility] ([facility])[address] [place] [address] 30on 05-07-2023 30 Problem: Pain - Adul [...] shift include cardiac cath without complications Normal [facility] APTTon 05-07-2023 ACTIVATED PARTIAL THROMBOPLASTIN TIME IN PPP BY COAGULATION ASSAY 123.2 Seconds High 25.0-35.0 [facility] Comment on above: Order Comment: Check aPTT every 6 hours while on heparin infusion, or per protocol. Result Comment: Clin ical significance of the APTT is questionable in the presence of heparin. Performed By: #### L [id number] #### [facility] ([facility]) [address] [place] [address] ACTIVATED PARTIAL THROMBOPLASTIN TIME IN PPP BY COAGULATION ASSAY 106.0 Seconds High 25.0-35.0 [facility] Comment on above: Order Comment: Check aPTT every 6 hours while on heparin infusion, or per protocol. Result Comment: Clin ical significance of the APTT is questionable in the presence of heparin. Performed By: #### L [id number] ####[facility] ([facility])[address] [facility] [place] [address] BASIC METABOLIC PANELon 04-19 Anion gap [Moles/Vol] 11 mmol/L Normal 7-20 [facility] Comment on above: Performed By: #### L [id number] ####[facility] ([facility])[address] [facility] [place] [place] [address] Calcium [Mass/Vol] 9.7 mg/dL Normal 8.6-10.3 [facility] Comment on above: Performed By: #### L [id number] ####[facility] ([facility])[address] [facility] [facility] [place] [place] [address] Chloride [Moles/Vol] 98 mmol/L Normal 98-107 [facility] Comment on above: Performed By: #### L [id number] ####[facility] ([facility])[address] [facility] [facility] [place] [address] CO2 [Moles/Vol] 32 mmol/L High 21-31 [facility] Comment on above: Performed By: #### L [id number] ####[facility] ([facility])[address] [facility] [facility] [place] [address] Creatinine [Mass/Vol] 0.86 mg/dL Normal 0.60-1.20 [facility] Comment on above: Performed By: #### L [id number] ####[facility] ([facility])[address] [place] [address] GLOMERULAR FILTRATION RATE ML/MIN/1.73 SQ M.PREDICTED 76.8 mL/min/1.73m*2 Normal >60.0 [facility] Comment on above: Result Comment: [facility]???s estimated glomerular filtration rate (eGFR) will [...] of individuals. Performed By: #### L [id number] ####[facility] ([facility] [place] [address] Glucose [Mass/Vol] 110 mg/dL High 70-100 [facility] Comment on above: Performed By: #### L [id number] ####[facility] ([facility])[address] [place] [address] Potassium [Moles/Vol] 3.4 mmol/L Low 3.5-5.1 [facility] Comment on above: Performed By: #### L [id number] ####[facility] ([facility])[address] [place] [address] Sodium [Moles/Vol] 138 mmol/L Normal 136-145 [facility] Comment on above: Performed By: #### L [id number] ####[facility] ([facility])[address] [place] [address] Urea nitrogen [Mass/Vol] 14 mg/dL Normal 7-25 [facility] Comment on above: Performed By: #### L [id number] ####[facility] ([facility])[address] [place] [address] UREA NITROGEN/CREATININE (MASS RATIO) IN SER/PLAS 16.3 Normal [facility] Comment on above: Performed By: #### L [id number] ####[facility] ([facility])[address] [place] [address] CBCon 05-07-2023 Erythrocyte distribution width (RBC) [Ratio] 15.7 % High 11.5-15.0 [facility] Comment on above: Performed By: #### L [id number] #### [facility] ([facility]) [address] [place] [address] ERYTHROCYTE MEAN CORPUSCULAR HEMOGLOBIN CONCENTRATION (G/DL) BY AUTOMATED 32.4 g/dL Normal 32.0-35.0 [facility] Comment on above: Performed By: #### L [id number] #### [facility] ([facility]) [address] [place] [address] Hematocrit (Bld) [Volume fraction] 38.3 % Normal 36.0-48.0 [facility] Comment on above: Performed By: #### L [id number] #### [facility] ([facility]) [address] [place] [address] Hemoglobin (Bld) [Mass/Vol] 12.4 g/dL Normal 12.0-15.0 [facility] Comment on above: Performed By: #### L [id number] #### [facility] ([facility]) [address] [place] [address] MCH (RBC) [Entitic mass] 28.6 pg Normal 27.0-33.0 [facility] Comment on above: Performed By: #### L [id number] #### [facility] ([facility]) [address] [place] [address] MCV (RBC) [Entitic vol] 88.2 fL Normal 82.0-98.0 [facility] Comment on above: Performed By: #### L [id number] #### [facility] ([facility]) [address] [place] [address] PLATELETS (10*3/UL) IN BLOOD AUTOMATED COUNT 121 10*3/uL Low 150-400 [facility] Comment on above: Performed By: #### L [id number] #### [facility] ([facility]) [address] [place] [address] RBC (Bld) [#/Vol] 4.34 10*6/uL Normal 3.80-5.00 [facility] Comment on above: Performed By: #### L [id number] #### [facility] ([facility]) [address] [place] [address] WBC (Bld) [#/Vol] 4.25 10*3/uL Normal 4.00-10.60 [facility] Comment on above: Performed By: #### L [id number] #### [facility] ([facility]) [address] [place] [address] HPon 05-07-2023 HP H&P reviewed. The patient was examined and there are no changes to the H&P. Regina Stark MD, MPH, [facility], [facility], [facility] Interventional Cardiology Pager Email: [email or web address] POCT GLUCOSE METER UNSOLICIT ED RESULTSon 05-07-2023 Glucose [Mass/Vol] 125 mg/dL High 70-105 [facility] Comment on above: Order Comment: Waive d Testing in the ED is performed under the ED CLIA certificate #[id number]. Result Comment: [email or web address] Performed By: #### L [id number] ####[facility] ([facility])[address] [place] [address] Glucose [Mass/Vol] 101 mg/dL Normal 70-105 [facility] Comment on above: Order Comment: Waive d Testing in the ED is performed under the ED CLIA certificate #[id number]. Result Comment: [email or web address] Performed By: #### L [id number] ####[facility] ([facility])[address] [place] [address] 30on 05-06-2023 30 The patient is Moderately [...] and behaviors that affect risk of falls [place] fall precautions as indicated by assessment Educate [...] and prevent overall improvement and discharge Normal [facility] 30 Daily Case Managemen t Update Multidisciplinary rounds have been completed. Barriers to Discharge: Pending clinical course and improvement in clinical condition. Patient admitted with chronic heart failure transferred from [facility]. Plan for coronary angiography tomorrow per Cardiology. Diet: Dietary Orders (From admission, onward) Start Ordered 05/07/23 0001 Diet NPO Diet effective midnight Comments: Sips with medications Question: Reason for NPO: Answer: Operation/Procedure 05/06/23 1502 05/06/23 1515 Special Kitchen Request Once Comments: Pls send for lunch tray now (pt did not like/eat any of the generated tray) chicken salad sandwich on wheat, peach kinyarwanda yogurt, diet cola 05/06/23 1516 05/05/23 2154 Regular Diet Diabetic Female (carb 45g/meal) Diet effective now Question Answer Comment Room Service? Yes Carbohydrate restriction: Diabetic Female (carb 45g/meal) 05/05/233 Physician Expected Discharge Date: Discharge Delays: PT Six Click Score: 23 OT Six Click Score: PT Recommendations: OT Recommendations: New Consults: Normal [facility] 30 Problem: Pain - Adul t [...] and behaviors that affect risk of falls [place] fall precautions as indicated by assessment Educate [...] for the shift include hemodynamically stable Normal [facility] APTTon 05-06-2023 ACTIVATED PARTIAL THROMBOPLASTIN TIME IN PPP BY COAGULATION ASSAY 104.8 Seconds High 25.0-35.0 [facility] Comment on above: Order Comment: Check aPTT every 6 hours while on heparin infusion, or per protocol. Result Comment: Clin ical significance of the APTT is questionable in the presence of heparin. Performed By: #### L [id number] ####[facility] ([facility])[address] [place] [address] ACTIVATED PARTIAL THROMBOPLASTIN TIME IN PPP BY COAGULATION ASSAY 134.0 Seconds Critically high 25.0-35.0 [facility] Comment on above: Order Comment: Check aPTT every 6 hours while on heparin infusion, or per protocol. Result Comment: Clin ical significance of the APTT is questionable in the presence of heparin. Performed By: #### L [id number] #### [facility] ([facility]) [address] [place] [address] ACTIVATED PARTIAL THROMBOPLASTIN TIME IN PPP BY COAGULATION ASSAY 143.7 Seconds Critically high 25.0-35.0 [facility] Comment on above: Order Comment: Basel ine aPTT before initiating heparin infusion. Result Comment: Clin ical significance of the APTT is questionable in the presence of heparin. Performed By: #### L [id number] #### [facility] ([facility]) [address] [place] [address] CBCon 05-06-2023 Erythrocyte distribution width (RBC) [Ratio] 15.7 % High 11.5-15.0 [facility] Comment on above: Performed By: #### L [id number] #### [facility] ([facility]) [address] [place] [address] ERYTHROCYTE MEAN CORPUSCULAR HEMOGLOBIN CONCENTRATION (G/DL) BY AUTOMATED 32.6 g/dL Normal 32.0-35.0 [facility] Comment on above: Performed By: #### L [id number] #### [facility] ([facility]) [address] [place] [address] Hematocrit (Bld) [Volume fraction] 39.9 % Normal 36.0-48.0 [facility] Comment on above: Performed By: #### L [id number] #### [facility] ([facility]) [address] [place] [address] Hemoglobin (Bld) [Mass/Vol] 13.0 g/dL Normal 12.0-15.0 [facility] Comment on above: Performed By: #### L [id number] #### [facility] ([facility]) [address] [place] [address] MCH (RBC) [Entitic mass] 28.9 pg Normal 27.0-33.0 [facility] Comment on above: Performed By: #### L [id number] #### [facility] ([facility]) [address] [place] [address] MCV (RBC) [Entitic vol] 88.7 fL Normal 82.0-98.0 [facility] Comment on above: Performed By: #### L [id number] #### [facility] ([facility]) [address] [place] [address] PLATELETS (10*3/UL) IN BLOOD AUTOMATED COUNT 139 10*3/uL Low 150-400 [facility] Comment on above: Performed By: #### L [id number] #### [facility] ([facility]) [address] [place] [address] RBC (Bld) [#/Vol] 4.50 10*6/uL Normal 3.80-5.00 [facility] Comment on above: Performed By: #### L [id number] #### [facility] ([facility]) [address] [place] [address] WBC (Bld) [#/Vol] 5.73 10*3/uL Normal 4.00-10.60 [facility] Comment on above: Performed By: #### L [id number] #### [facility] ([facility]) [address] [place] [address] COMPREHENSIVE METABOLIC PANE Shamir 05-06-2023 Albumin [Mass/Vol] 3.6 g/dL Normal 3.5-5.7 [facility] Comment on above: Performed By: #### L [id number] ####[facility] ([facility])[address] [place] [address] ALP [Catalytic activity/Vol] 41 U/L Normal 34-104 [facility] Comment on above: Performed By: #### L [id number] ####[facility] ([facility])[address] [place] [address] ALT [Catalytic activity/Vol] 24 U/L Normal 7-52 [facility] Comment on above: Performed By: #### L [id number] ####[facility] ([facility])[address] [place] [address] Anion gap [Moles/Vol] 14 mmol/L Normal 7-20 [facility] Comment on above: Performed By: #### L [id number] ####[facility] ([facility])[address] [place] [address] AST [Catalytic activity/Vol] 42 U/L High 13-39 [facility] Comment on above: Performed By: #### L [id number] ####[facility] ([facility])[address] [place] [address] Bilirubin [Mass/Vol] 1.3 mg/dL High 0.3-1.0 [facility] Comment on above: Performed By: #### L [id number] ####[facility] ([facility])[address] [place] [address] Calcium [Mass/Vol] 9.7 mg/dL Normal 8.6-10.3 [facility] Comment on above: Performed By: #### L [id number] ####[facility] ([facility])[address] [place] [address] Chloride [Moles/Vol] 101 mmol/L Normal 98-107 [facility] Comment on above: Performed By: #### L [id number] ####[facility] ([facility])[address] [place] [address] CO2 [Moles/Vol] 27 mmol/L Normal 21-31 [facility] Comment on above: Performed By: #### L [id number] ####[facility] ([facility])[address] [place] [address] Creatinine [Mass/Vol] 0.74 mg/dL Normal 0.60-1.20 [facility] Comment on above: Performed By: #### L [id number] ####[facility] ([facility])[address] [place] [address] GLOMERULAR FILTRATION RATE ML/MIN/1.73 SQ M.PREDICTED 92.0 mL/min/1.73m*2 Normal >60.0 [facility] Comment on above: Result Comment: [facility]???s estimated glomerular filtration rate (eGFR) will [...] group of individuals. Performed By: #### L [id number] ####[facility] ([facility])[address] [place] [address] Glucose [Mass/Vol] 101 mg/dL High 70-100 [facility] Comment on above: Performed By: #### L [id number] ####[facility] ([facility])[address] [place] [address] Potassium [Moles/Vol] 3.6 mmol/L Normal 3.5-5.1 [facility] Comment on above: Performed By: #### L [id number] ####[facility] ([facility])[address] [place] [address] Protein [Mass/Vol] 7.2 g/dL Normal 6.0-8.3 [facility] Comment on above: Performed By: #### L [id number] ####[facility] ([facility])[address] [place] [address] Sodium [Moles/Vol] 138 mmol/L Normal 136-145 [facility] Comment on above: Performed By: #### L [id number] ####[facility] ([place])[address] [place] [address] Urea nitrogen [Mass/Vol] 13 mg/dL Normal 7-25 [facility] Comment on above: Performed By: #### L [id number] ####[facility] ([facility] [place] [address] UREA NITROGEN/CREATININE (MASS RATIO) IN SER/PLAS 17.6 Normal [facility] Comment on above: Performed By: #### L [id number] ####[facility] (GI)[address] [place] [address] CONSULTon 05-06-2023 CONSULT -- Attestation signed by [...] Atrial fibrillation, new onset heart failure HPI: Ngozi Cardoso is a 62 y.o. female With past medical history of hypertension, diabetes, obstructive sleep apnea who was admitted to [facility] with sudden onset shortness of breath. Reports that she woke up suddenly from sleep feeling short of breath. She initially thought that this was a COVID infection. In the ED at [place], she was noted to be in atrial [...] branch block pattern. Patient was transferred to [facility] for further evaluation.Patient denies any history [...] 1251 (!) 133/46 36.6 ???C (97.9 ???F) [facility] 76 20 92 % -- -- 05/06/23 [...] Value Ventricular Rate 81 Atrial Rate 81 WV Interval 208 QRS DURATION 178 QT Interval 442 QTC CALCULATION(BAZETT) 513 P Bradford 34 R-Bradford -48 T Wave Bradford 101 Impression Normal sinus rhythm Left axis deviation Left bundle branch block Abnormal ECG When compared with ECG of 13-FEB-2013 09:22, No significant change was found Confirmed by Jose Luis Cronin ([id number]) on 05/05/2023 9:15:31 PM Lab Results Component Value Date TROPONINI 0. (more content not included)... Normal [facility] HPon 05-06-2023 HP -- Attestation signed [...] Atrial fibrillation, new onset heart failure HPI: Ngozi Cardoso is a 62 y.o. female With past medical history of hypertension, diabetes, obstructive sleep apnea who was admitted to [facility] with sudden onset shortness of breath. Reports that she woke up suddenly from sleep feeling short of breath. She initially thought that this was a COVID infection. In the ED at [place], she was noted to be in atrial [...] branch block pattern. Patient was transferred to [facility] for further evaluation.Patient denies any history [...] Value Ventricular Rate 81 Atrial Rate 81 WV Interval 208 QRS DURATION 178 QT Interval 442 QTC CALCULATION(BAZETT) 513 P Bradford 34 R-Bradford -48 T Wave Bradford 101 Impression Normal sinus rhythm Left axis deviation Left bundle branch block Abnormal ECG When compared with ECG of 13-FEB-2013 09:22, No significant change was found Confirmed by Jose Luis Cronin (80) on 05/05/2023 9:15:31 PM Lab Results Component Value Date TROPONINI 0. (more content not included)... Normal [facility] MAGNESIUMon 05-06-2023 Magnesium [Mass/Vol] 1.5 mg/dL Low 1.9-2.7 [facility] Comment on above: Performed By: #### L [id number] #### [facility] ([facility]) [address] [place] [address] PLATELET COUNTon 05-06-2023 PLATELETS (10*3/UL) IN BLOOD AUTOMATED COUNT 121 10*3/uL Low 150-400 [facility] Comment on above: Performed By: #### L [id number] #### [facility] ([facility]) [address] [place] [address] POCT GLUCOSE METER UNSOLICIT ED RESULTSon 05-06-2023 Glucose [Mass/Vol] 105 mg/dL Normal 70-105 [facility] Comment on above: Order Comment: Waive d Testing in the ED is performed under the ED CLIA certificate #[id number]. Result Comment: [email or web address] Performed By: #### L [id number] ####[facility] ([employer])[address] [place] [address] Glucose [Mass/Vol] 116 mg/dL High 70-105 [facility] Comment on above: Order Comment: Waive d Testing in the ED is performed under the ED CLIA certificate #[id number]. Result Comment: [email or web address] Performed By: #### L [id number] #### [facility] ([employer]) [address] [place] [address] Glucose [Mass/Vol] 131 mg/dL High 70-105 [facility] Comment on above: Order Comment: Waive d Testing in the ED is performed under the ED CLIA certificate #[id number]. Result Comment: [email or web address] Performed By: #### L [id number] #### [facility] ([facility]) [address] [place] [address] Glucose [Mass/Vol] 100 mg/dL Normal 70-105 [facility] Comment on above: Order Comment: Waive d Testing in the ED is performed under the ED CLIA certificate #[id number]. Result Comment: [email or web address] Performed By: #### L [id number] ####[facility] ([facility])[address] [place] [address] T4, FREEon 05-06-2023 THYROXINE (T4) FREE (NG/DL) IN SER/PLAS 1.08 ng/dL Normal 0.71-1.85 [facility] Comment on above: Performed By: #### L [id number] ####[facility] ([facility])[address] [place] [id number] TROPONIN Ion 05-06-2023 Troponin I.cardiac [Mass/Vol] 0.01 ng/mL Normal 0.00-0.04 [facility] Comment on above: Performed By: #### L [id number] ####[facility] ([facility])[address] [place] [address] TSH3 REFLEX TO FT4on 024 THYROTROPIN (MIU/L) IN SER/PLAS BY DETECTION LIMIT <= 0.05 MIU/L 5.84 mIU/L High 0.34-5.60 [facility] Comment on above: Performed By: #### L [id number] ####[facility] ([facility])[address] [place] [address] 30on 05-05-2023 30 The patient is Moderately [...] and behaviors that affect risk of falls [place] fall precautions as indicated by assessment Educate [...] and prevent overall improvement and discharge Normal [facility] B-TYPE NATRIURETIC PEPTIDEon 05-05-2023 Natriuretic peptide B (Bld) [Mass/Vol] 97 pg/mL Normal 0-100 [facility] Comment on above: Performed By: #### L [id number] #### [facility] ([facility]) [address] [place] [address] BASIC METABOLIC PANELon 04-19 Anion gap [Moles/Vol] 11 mmol/L Normal 7-20 [facility] Comment on above: Performed By: #### L [id number] #### [facility] ([facility]) [address] [place] [address] Calcium [Mass/Vol] 9.5 mg/dL Normal 8.6-10.3 [facility] Comment on above: Performed By: #### L [id number] #### [facility] ([facility]) [address] [place] [address] Chloride [Moles/Vol] 101 mmol/L Normal 98-107 [facility] Comment on above: Performed By: #### L [id number] #### [facility] ([facility]) [address] [place] [address] CO2 [Moles/Vol] 30 mmol/L Normal 21-31 [facility] Comment on above: Performed By: #### L [id number] #### [facility] ([facility]) [address] [place] [address] Creatinine [Mass/Vol] 0.69 mg/dL Normal 0.60-1.20 [facility] Comment on above: Performed By: #### L [id number] #### [facility] ([facility]) [address] [place] [address] GLOMERULAR FILTRATION RATE ML/MIN/1.73 SQ M.PREDICTED 98.7 mL/min/1.73m*2 Normal >60.0 [facility] Comment on above: Result Comment: [facility]???s estimated glomerular filtration rate (eGFR) will [...] individuals. Performed By: #### L [id number] #### [facility] ([facility]) [address] [place] [address] Glucose [Mass/Vol] 90 mg/dL Normal 70-100 [facility] Comment on above: Performed By: #### L [id number] #### [facility] ([facility]) [address] [place] [address] Potassium [Moles/Vol] 3.8 mmol/L Normal 3.5-5.1 [facility] Comment on above: Performed By: #### L [id number] #### [facility] ([facility]) [address] [place] [address] Sodium [Moles/Vol] 138 mmol/L Normal 136-145 [facility] Comment on above: Performed By: #### L [id number] #### [facility] ([facility]) [address] [place] [address] Urea nitrogen [Mass/Vol] 13 mg/dL Normal 7-25 [facility] Comment on above: Performed By: #### L [id number] #### [facility] ([facility]) [address] [place] [address] UREA NITROGEN/CREATININE (MASS RATIO) IN SER/PLAS 18.8 Normal [facility] Comment on above: Performed By: #### L [id number] #### [facility] ([facility]) [address] [place] [address] MAGNESIUMon 05-05-2023 Magnesium [Mass/Vol] 1.4 mg/dL Low 1.9-2.7 [facility] Comment on above: Performed By: #### L [id number] #### [facility] ([facility]) [address] [place] [address] POCT GLUCOSE METER UNSOLICIT ED RESULTSon 05-05-2023 Glucose [Mass/Vol] 87 mg/dL Normal 70-105 [facility] Comment on above: Order Comment: Waive d Testing in the ED is performed under the ED CLIA certificate #[id number]. Result Comment: [email or web address] Performed By: #### L [id number] #### [facility] ([facility]) [address] [place] [address] TROPONIN Ion 05-05-2023 Troponin I.cardiac [Mass/Vol] 0.03 ng/mL Normal 0.00-0.04 [facility] Comment on above: Performed By: #### L [id number] ####[facility] ([facility])[address] [place] [address] CBC AUTO DIFFon 02-21-2022 BASO # 0.0 103/ul Normal 0.0-0.1 [facility] Comment on above: Performed By: #### C BC #### [facility] [address] [place] [address] Dr. Rivas Zhao Basophils/100 WBC (Bld) 0.7 % Normal 0.2-2.0 [facility] Comment on above: Performed By: #### C BC #### [facility] [address] [place] [address] Dr. Rivas Zhao EO # 0.2 103/ul Normal 0.0-0.7 [facility] Comment on above: Performed By: #### C BC #### [facility] [address] [place] [address] Dr. Rivas Zhao Eosinophils/100 WBC (Bld) 3.4 % Normal 0.9-7.0 [facility] Comment on above: Performed By: #### C BC #### [facility] [address] [place] [address] Dr. Rivas Zhao Erythrocyte distribution width (RBC) [Ratio] 14.8 % Normal 11.0-15.0 [facility] Comment on above: Performed By: #### C BC #### [facility] [address] [place] [address] Dr. Rivas Zhao Hematocrit (Bld) [Volume fraction] 38.4 % Normal 36.0-48.0 [facility] Comment on above: Performed By: #### C BC #### [facility] [address] [place] [address] Dr. Rivas Zhao Hemoglobin (Bld) [Mass/Vol] 12.7 g/dL Normal 12.0-16.0 [facility] Comment on above: Performed By: #### C BC #### [facility] [address] [place] [address] Dr. Rivas Zhao IG # 0.01 10e3/ul Normal 0.00-0.03 [facility] Comment on above: Performed By: #### C BC #### [facility] [address] [place] [address] Dr. Rivas Zhao IG % 0.2 % Normal 0.0-0.5 [facility] Comment on above: Performed By: #### C BC #### [facility] [address] [place] [address] Dr. Rivas Zhao LYMPH # 1.5 103/ul Normal 1.2-3.8 [facility] Comment on above: Performed By: #### C BC #### [facility] [address] [place] [address] Dr. Rivas Zhao Lymphocytes/100 WBC (Bld) 34.9 % Normal 20.5-60.0 [facility] Comment on above: Performed By: #### C BC #### [facility] [address] [place] [address] Dr. Rivas Zhao MANUAL DIFF REQ NO Normal [facility] Comment on above: Performed By: #### C BC #### [facility] [address] [place] [address] Dr. Rivas Zhao MCH (RBC) [Entitic mass] 30.2 pg Normal 26.7-34.0 [facility] Comment on above: Performed By: #### C BC #### [facility] [address] [place] [address] Dr. Rivas Zhao MCHC (RBC) [Mass/Vol] 33.1 g/dL Normal 29.9-35.2 [facility] Comment on above: Performed By: #### C BC #### [facility] [address] [place] [address] Dr. Rivas Zhao MCV (RBC) [Entitic vol] 91.2 fL Normal 81.0-99.0 [facility] Comment on above: Performed By: #### C BC #### [facility] [address] [place] [address] Dr. Rivas Zhao MONO # 0.3 103/ul Normal 0.3-0.8 [facility] Comment on above: Performed By: #### C BC #### [facility] [address] [place] [address] Dr. Rivas Zhao Monocytes/100 WBC (Bld) 5.9 % Normal 1.7-12.0 [facility] Comment on above: Performed By: #### C BC #### [facility] [address] [place] [address] Dr. Rivas Zhao NEUT # 2.4 103/ul Normal 1.4-6.5 [facility] Comment on above: Performed By: #### C BC #### [facility] [address] [place] [address] Dr. Rivas Zhao Neutrophils/100 WBC (Bld) 54.9 % Normal 43.0-75.0 [facility] Comment on above: Performed By: #### C BC #### [facility] [address] [place] [address] Dr. Rivas Zhao Platelet mean volume (Bld) [Entitic vol] 11.9 fL Normal 9.5-13.5 [facility] Comment on above: Performed By: #### C BC #### [facility] [address] [place] [address] Dr. Rivas Zhao PLT 107 103/ul Critically low 150-450 [facility] Comment on above: Performed By: #### C BC #### [facility] [address] [place] [address] Dr. Rivas Zhao RBC 4.21 106/ul Normal 4.20-5.40 [facility] Comment on above: Performed By: #### C BC #### [facility] [address] [place] [address] Dr. Rivas Zhao WBC 4.4 103/ul Normal 4.0-11.0 [facility] Comment on above: Performed By: #### C BC #### [facility] [address] [place] [address] Dr. Rivas Zhao GLYCOHEMOGLOBIN A1Con 2021 ADA RECOMMENDATION SEE BELOW Normal [facility] Comment on above: Result Comment: ADA RECOMMENDED LIMIT 4.0 - 6.0 ADA THERAPEUTIC TARGET < 7.0 ACTION SUGGESTED > 7.0 Performed By: #### A 1C #### [facility] [address] [address] [address] Rivas Zhao Glucose [Mass/Vol] 117 mg/dL Normal [facility] Comment on above: Performed By: #### A 1C #### [facility] [address] [address] [address] Rivas Zhao HbA1c (Bld) [Mass fraction] 5.7 % Normal 4.5-6.2 [facility] Comment on above: Performed By: #### A 1C #### [facility] [address] [place] [address] Dr. Rivas Zhao LIPID PROFILEon 02-21-2022 CHOL-HDL RATIO NORM SEE BELOW Normal [facility] Comment on above: Result Comment: 3.3 - 4.4 LOW RISK 4.4 - 7.1 AVERAGE RISK 7.1 - 11.0 MODERATE RISK >11.0 HIGH RISK Performed By: #### L IPID, CMP #### [facility] [address] [address] [address] Rivas Zhao Cholesterol [Mass/Vol] 160 mg/dL Normal <=200 [facility] Comment on above: Performed By: #### L IPID, CMP #### [facility] [address] [address] [address] Rivas Zhao Cholesterol in HDL [Mass/Vol] 49 mg/dL Normal 40-60 [facility] Comment on above: Performed By: #### L IPID, CMP #### [facility] [address] [address] [address] Rivas Zhao Cholesterol in LDL [Mass/Vol] 96.0 mg/dL Normal [facility] Comment on above: Performed By: #### L IPID, CMP #### [facility] [address] [address] [address] Rivas Zhao Cholesterol.total/Ch olesterol in HDL [Mass ratio] 3.3 {ratio} Normal [facility] Comment on above: Performed By: #### L IPID, CMP #### [facility] [address] [address] [address] Rivas Zhao HDL NORMAL > or = 60 mg/dl - LO W CARDIOVASCULAR RISK <40 mg/dl - HIGH CARDIOVASCULAR RISK Normal [facility] Comment on above: Performed By: #### L IPID, CMP #### [facility] [address] [address] [address] Rivas Zhao LDL CALC NORMAL SEE BELOW Normal [facility] Comment on above: Result Comment: <100 mg/dl OPTIMAL 100 - 129 mg/dl NEAR OR ABOVE OPTIMAL 130 - 159 mg/dl BORDERLINE HIGH 160 - 189 mg/dl HIGH >190 mg/dl VERY HIGH Performed By: #### L IPID, CMP #### [facility] [address] [place] [address] Dr. Rivas Zhao Triglyceride [Mass/Vol] 75 mg/dL Normal <=150 [facility] Comment on above: Performed By: #### L IPID, CMP #### [facility] [address] [place] [address] Dr. Rivas Zhao VLDL CALC 15.0 mg/dL Normal [facility] Comment on above: Performed By: #### L IPID, CMP #### [facility] [address] [address] [address] Rivas Zhao PROF 14(COMP METB)on 022 Albumin [Mass/Vol] 3.0 g/dL Critically low 3.4-5.0 [facility] Comment on above: Performed By: #### L IPID, CMP #### [facility] [address] [place] [address] Dr. Rivas Zhao Albumin/Globulin [Mass ratio] 0.6 {ratio} Normal [facility] Comment on above: Performed By: #### L IPID, CMP #### [facility] [address] [place] [address] Dr. Rivas Zhao ALP [Catalytic activity/Vol] 74 U/L Normal 46-116 [facility] Comment on above: Performed By: #### L IPID, CMP #### [facility] [address] [address] [address] Rivas Zhao ALT [Catalytic activity/Vol] 59 U/L Normal 14-59 [facility] Comment on above: Performed By: #### L IPID, CMP #### [facility] [address] [address] [address] Rivas Zhao Anion gap [Moles/Vol] 9.2 mmol/L Normal [facility] Comment on above: Performed By: #### L IPID, CMP #### [facility] [address] [place] [address] Dr. Rivas Zhao AST [Catalytic activity/Vol] 65 U/L Critically high 15-37 [facility] Comment on above: Performed By: #### L IPID, CMP #### [facility] [address] [place] [address] Dr. Rivas Zhao Bilirubin [Mass/Vol] 1.1 mg/dL Critically high 0.2-1.0 [facility] Comment on above: Performed By: #### L IPID, CMP #### [facility] [address] [address] [address] Rivas Zhao Calcium [Mass/Vol] 8.8 mg/dL Normal 8.5-10.1 [facility] Comment on above: Performed By: #### L IPID, CMP #### [facility] [address] [place] [address] Dr. Rivas Zhao Chloride [Moles/Vol] 102 mmol/L Normal 98-107 [facility] Comment on above: Performed By: #### L IPID, CMP #### [facility] [address] [address] [address] Rivas Zhao CO2 [Moles/Vol] 32.5 mmol/L Critically high 21.0-32.0 [facility] Comment on above: Performed By: #### L IPID, CMP #### [facility] [address] [address] [address] Rivas Zhao Creatinine [Mass/Vol] 0.76 mg/dL Normal 0.55-1.02 [facility] Comment on above: Performed By: #### L IPID, CMP #### [facility] [address] [address] [address] Rivas Zhao EGFR-AF MALTESE >60 Normal >=60 [facility] Comment on above: Performed By: #### L IPID, CMP #### [facility] [address] [address] [address] Rivas Zhao EGFR-NON AF MALTESE >60 Normal >=60 [facility] Comment on above: Performed By: #### L IPID, CMP #### [facility] [address] [address] [address] Rivas Zhao Globulin (S) [Mass/Vol] 4.7 g/dL Normal [facility] Comment on above: Performed By: #### L IPID, CMP #### [facility] [address] [address] [address] Rivas Zhao Glucose [Mass/Vol] 109 mg/dL Critically high 74-106 [facility] Comment on above: Performed By: #### L IPID, CMP #### [facility] [address] [address] [address] Rivas Zhao Potassium [Moles/Vol] 3.7 mmol/L Normal 3.5-5.1 [facility] Comment on above: Performed By: #### L IPID, CMP #### [facility] [address] [address] [address] Rivas Zhao Protein [Mass/Vol] 7.7 g/dL Normal 6.4-8.2 [facility] Comment on above: Performed By: #### L IPID, CMP #### [facility] [address] [address] [address] Rivas Zhao Sodium [Moles/Vol] 140 mmol/L Normal 136-145 [facility] Comment on above: Performed By: #### L IPID, CMP #### [facility] [address] [address] [address] Rivas Zhao Urea nitrogen [Mass/Vol] 12.0 mg/dL Normal 7.0-18.0 [facility] Comment on above: Performed By: #### L IPID, CMP #### [facility] [address] [place], [place] [address] Dr. Rivas Zhao Urea nitrogen/Creatinine [Mass ratio] 15.8 mg/mg Normal [facility] Comment on above: Performed By: #### L IPID, CMP #### [facility] [address] [place], [place] [address] Dr. Rivas Zhao Patient Correspondenceon Patient Correspondence [id number]#1.00 CD:127 Normal [facility] Physician Referral [id number]#1.00 CD:127 Normal [facility] Patient Correspondence [id number]#1.00 CD:127 Normal [facility] Physician Referralon 022 Physician Referral [id number]#1.0 0CD:127 Normal [facility] MG MAMM DIAGNOSTIC 3D GREG CA Don 05-16-2021 MG MAMM DIAGNOSTIC 3D GREG CAD Patient: NGOZI CARDOSO Exam Date: 05/16/2021 : 1960 Gender:F Ordering : DR FOREIGN BENJAMIN M.D. Admission #: [id number] Family : Order #: [id number] CLICK HERE TO VIEW EXAM RADIOLOGY REPORT [...] at age 59. LOCATION: [facility] BREAST COMPOSITION: Scattered areas fibroglandular density. [...] 05/16/2021 at 15:27 Normal [facility] US BREAST GREG LIMITEDon 04-20 US BREAST GREG LIMITED Patient: NGOZI CARDOSO Exam Date: 05/16/2021 : 1960 Gender:F Ordering : DR FOREIGN BENJAMIN M.D. Admission #: [id number] Family : Order #: [id number] CLICK HERE TO VIEW EXAM RADIOLOGY REPORT [...] at age 59. LOCATION: [facility] BREAST COMPOSITION: Scattered areas fibroglandular density. [...] 05/16/2021 at 15:27 Normal [facility] TRANSGLUTAMINASE IGAon 04-02 t-Transglutaminase (tTG) IgA <2 Normal 0-3 [facility] Comment on above: Result Comment: Nega tive 0 - 3 Weak Positive 4 - 10 Positive >10 . Tissue Transglutaminase (tTG) has been identified as the endomysial antigen. Studies have demonstr- ated that endomysial IgA antibodies have over 99% specificity for gluten sensitive enteropathy. Performed By: #### T FRANCESCA #### [facility] [address] [place] [address] Dr. Rivas Zhao CBC AUTO DIFFon 03-31-2021 BASO # 0.1 103/ul Normal 0.0-0.1 [facility] Comment on above: Performed By: #### C BC #### [facility] [address] [place] [address] Dr. Rivas Zhao Basophils/100 WBC (Bld) 0.9 % Normal 0.2-2.0 [facility] Comment on above: Performed By: #### C BC #### [facility] [address] [place] [address] Dr. Rivas Zhao EO # 0.2 103/ul Normal 0.0-0.7 [facility] Comment on above: Performed By: #### C BC #### [facility] [address] [place] [address] Dr. Rivas Zhao Eosinophils/100 WBC (Bld) 2.3 % Normal 0.9-7.0 [facility] Comment on above: Performed By: #### C BC #### [facility] [address] [place] [address] Dr. Rivas Zhao Erythrocyte distribution width (RBC) [Ratio] 14.5 % Normal 11.0-15.0 [facility] Comment on above: Performed By: #### C BC #### [facility] [address] [place] [address] Dr. Rivas Zhao Hematocrit (Bld) [Volume fraction] 39.9 % Normal 36.0-48.0 [facility] Comment on above: Performed By: #### C BC #### [facility] [address] [place] [address] Dr. Rivas Zhao Hemoglobin (Bld) [Mass/Vol] 13.1 g/dL Normal 12.0-16.0 [facility] Comment on above: Performed By: #### C BC #### [facility] [address] [place] [address] Dr. Rivas Zhao IG # 0.02 10e3/ul Normal 0.00-0.03 [facility] Comment on above: Performed By: #### C BC #### [facility] [address] [place] [address] Dr. Rivas Zhao IG % 0.3 % Normal 0.0-0.5 [facility] Comment on above: Performed By: #### C BC #### [facility] [address] [place] [address] Dr. Rivas Zhao LYMPH # 2.2 103/ul Normal 1.2-3.8 [facility] Comment on above: Performed By: #### C BC #### [facility] [address] [place] [address] Dr. Rivas Zhao Lymphocytes/100 WBC (Bld) 31.8 % Normal 20.5-60.0 [facility] Comment on above: Performed By: #### C BC #### [facility] [address] [place] [address] Dr. Rivas Zhao MANUAL DIFF REQ NO Normal [facility] Comment on above: Performed By: #### C BC #### [facility] [address] [address] [address] Rivas Zhao MCH (RBC) [Entitic mass] 30.2 pg Normal 26.7-34.0 [facility] Comment on above: Performed By: #### C BC #### [facility] [address] [place] [address] Dr. Rivas Zhao MCHC (RBC) [Mass/Vol] 32.8 g/dL Normal 29.9-35.2 [facility] Comment on above: Performed By: #### C BC #### [facility] [address] [place] [address] Dr. Rivas Zhao MCV (RBC) [Entitic vol] 91.9 fL Normal 81.0-99.0 [facility] Comment on above: Performed By: #### C BC #### [facility] [address] [place] [address] Dr. Rivas Zhao MONO # 0.5 103/ul Normal 0.3-0.8 [facility] Comment on above: Performed By: #### C BC #### [facility] [address] [place] [address] Dr. Rivas Zhao Monocytes/100 WBC (Bld) 7.2 % Normal 1.7-12.0 [facility] Comment on above: Performed By: #### C BC #### [facility] [address] [place] [address] Dr. Rivas Zhao NEUT # 4.0 103/ul Normal 1.4-6.5 [facility] Comment on above: Performed By: #### C BC #### [facility] [address] [place] [address] Dr. Rivas Zhao Neutrophils/100 WBC (Bld) 57.5 % Normal 43.0-75.0 [facility] Comment on above: Performed By: #### C BC #### [facility] [address] [place] [address] Dr. Rivas Zhao Platelet mean volume (Bld) [Entitic vol] 11.8 fL Normal 9.5-13.5 [facility] Comment on above: Performed By: #### C BC #### [facility] [address] [place] [address] Dr. Rivas Zhao PLT 139 103/ul Critically low 150-450 [facility] Comment on above: Performed By: #### C BC #### [facility] [address] [place] [address] Dr. Rivas Zhao RBC 4.34 106/ul Normal 4.20-5.40 [facility] Comment on above: Performed By: #### C BC #### [facility] [address] [place] [address] Dr. Rivas Zhao WBC 7.0 103/ul Normal 4.0-11.0 [facility] Comment on above: Performed By: #### C BC #### [facility] [address] [place] [address] Dr. Rivas Zhao LIPASEon 03-31-2021 Lipase [Catalytic activity/Vol] 197.0 U/L Normal 23.0-300.0 [facility] Comment on above: Performed By: #### C MP, LIPA #### [facility] [address] [place] [address] Dr. Rivas Zhao PROF 14(COMP METB)on 021 Albumin [Mass/Vol] 3.6 g/dL Normal 3.5-5.0 [facility] Comment on above: Performed By: #### C MP, LIPA #### [facility] [address] [place] [address] Dr. Rivas Zhao Albumin/Globulin [Mass ratio] 0.9 {ratio} Normal [facility] Comment on above: Performed By: #### C MP, LIPA #### [facility] [facility] [address] [place] [address] Dr. Rivas Zhao ALP [Catalytic activity/Vol] 46 U/L Normal 38-126 [facility] Comment on above: Performed By: #### C MP, LIPA #### [facility] [address] [place] [address] Dr. Rivas Zhao ALT [Catalytic activity/Vol] 77 U/L Critically high 9-52 [facility] Comment on above: Performed By: #### C MP, LIPA #### [facility] [address] [place] [address] Dr. Rivas Zhao Anion gap [Moles/Vol] 13.9 mmol/L Normal [facility] Comment on above: Performed By: #### C MP, LIPA #### [facility] [address] [place] [address] Dr. Rivas Zhao AST [Catalytic activity/Vol] 67 U/L Critically high 14-36 [facility] Comment on above: Performed By: #### C MP, LIPA #### [facility] [address] [place] [address] Dr. Rivas Zhao Bilirubin [Mass/Vol] 0.7 mg/dL Normal 0.2-1.3 [facility] Comment on above: Performed By: #### C MP, LIPA #### [facility] [address] [place] [address] Dr. Rivas Zhao Calcium [Mass/Vol] 9.8 mg/dL Normal 8.4-10.2 [facility] Comment on above: Performed By: #### C MP, LIPA #### [facility] [address] [place] [address] Dr. Rivas Zhao Chloride [Moles/Vol] 103 mmol/L Normal 98-107 [facility] Comment on above: Performed By: #### C MP, LIPA #### [facility] [address] [place] [address] Dr. Rivas Zhao CO2 [Moles/Vol] 31.0 mmol/L Critically high 22.0-30.0 [facility] Comment on above: Performed By: #### C MP, LIPA #### [facility] [address] [place] [address] Dr. Rivas Zhao Creatinine [Mass/Vol] 0.95 mg/dL Normal 0.52-1.04 [facility] Comment on above: Performed By: #### C MP, LIPA #### [facility] [address] [place] [address] Dr. Rivas Zhao EGFR-AF MALTESE 60 mL/min/1.73m2 Normal >=60 [facility] Comment on above: Performed By: #### C MP, LIPA #### [facility] [address] [place] [address] Dr. Rivas Zhao EGFR-NON AF MALTESE =60 Normal >=60 [facility] Comment on above: Performed By: #### C MP, LIPA #### [facility] [address] [place] [address] Dr. Rivas Zhao Globulin (S) [Mass/Vol] 4.2 g/dL Normal [facility] Comment on above: Performed By: #### C MP, LIPA #### [facility] [address] [place] [address] Dr. Rivas Zhao Glucose [Mass/Vol] 95 mg/dL Normal 74-106 [facility] Comment on above: Performed By: #### C MP, LIPA #### [facility] [address] [place] [address] Dr. Rivas Zhao Potassium [Moles/Vol] 3.9 mmol/L Normal 3.4-5.0 [facility] Comment on above: Performed By: #### C MP, LIPA #### [facility] [address] [place] [address] Dr. Rivas Zhao Protein [Mass/Vol] 7.8 g/dL Normal 6.1-8.2 [facility] Comment on above: Performed By: #### C MP, LIPA #### [facility] [address] [place] [address] Dr. Rivas Zhao Sodium [Moles/Vol] 144 mmol/L Normal 137-145 [facility] Comment on above: Performed By: #### C MP, LIPA #### [facility] [address] [place] [address] Dr. Rivas Zhao Urea nitrogen [Mass/Vol] 20.0 mg/dL Critically high 7.0-17.0 [facility] Comment on above: Performed By: #### C MP, LIPA #### [facility] [address] [address] [address] Rivas Zhao Urea nitrogen/Creatinine [Mass ratio] 21.1 mg/mg Normal [facility] Comment on above: Performed By: #### C SONIA PYLE #### [facility] [address] [address] [address] Rivas Zhao XR ribs RT min 3V w CXR1V*on 06-09-2020 XR ribs RT min 3V w CXR1V* [facility] [place] [address] [place] [address] XRay Report Signed Patient: Ngozi Cardoso MR#: [id number] : 1960 Acct:[id number] Age/Sex: 59 / F ADM Date: 06/09/20 Loc: XDUCLY Room: Type: [facility] Attending Dr: Janene Munguia APRN, FORESTRY AID-C Ordering Provider: Janene Munguia APRN Date of [...] Garcia Jr., M.D.06/09/2020 11:19 AM Dictation Location: [place] [address] Transcribed By: JOSÉ LUIS 06/09/201118 Dictated By: Que Garcia Jr, MD 06/09/201111 Signed By: 06/09/20 111 [facility] Vital Signs Date Time Vital Sign Value Performing Clinician Facility 08-12-2023 11:04-0400 Body height 165.1 cm [facility] 08-12-2023 11:04-0400 Body mass index (BMI) [Ratio] 55.2 kg/m2 [facility] 08-12-2023 11:04-0400 Body weight 150.59 kg [facility] 08-12-2023 11:04-0400 Diastolic blood pressure 67 mm[Hg] [facility] 08-12-2023 11:04-0400 Heart rate 67 /min [facility] 08-12-2023 11:04-0400 Systolic blood pressure 104 mm[Hg] [facility] 06-21-2023 15:41-0500 Body height 165.1 cm [facility] 06-21-2023 15:41-0500 Body mass index (BMI) [Ratio] 54.1 kg/m2 [facility] 06-21-2023 15:41-0500 Body weight 147.64 kg [facility] 06-21-2023 15:41-0500 Diastolic blood pressure 60 mm[Hg] [facility] 06-21-2023 15:41-0500 Heart rate 67 /min [facility] 06-21-2023 15:41-0500 SaO2% (BldA) [Mass fraction] 97 % [facility] 06-21-2023 15:41-0500 Systolic blood pressure 108 mm[Hg] [facility] 05-14-2023 09:30-0500 Body height 165.1 cm [facility] Other [facility] Other 05-14-2023 09:30-0500 Body mass index (BMI) [Ratio] 57.24 kg/m2 [facility] Other [facility] Other 05-14-2023 09:30-0500 Body weight 156.04 kg [facility] Other [facility] Other 05-14-2023 09:30-0500 Diastolic blood pressure 69 mm[Hg] [facility] Other [facility] Other 05-14-2023 09:30-0500 SaO2% (BldA) [Mass fraction] 97 % [facility] Other [facility] Other 05-14-2023 09:30-0500 Systolic blood pressure 105 mm[Hg] [facility] Other [facility] Other 03-05-2023 16:00-0500 Body height 165.1 cm Etta Gordon Other [facility] Other 03-05-2023 16:00-0500 Body mass index (BMI) [Ratio] 60.27 kg/m2 Etta Gordon Other [facility] Other 03-05-2023 16:00-0500 Body temperature 98.9 [degF] Etta Gordon Other [facility] Other 03-05-2023 16:00-0500 Body weight 164.29 kg Etta Gordon Other [facility] Other 03-05-2023 16:00-0500 Diastolic blood pressure 77 mm[Hg] Etta Gordon Other [facility] Other 03-05-2023 16:00-0500 Respiratory rate 18 /min Etta Gordon Other [facility] Other 03-05-2023 16:00-0500 SaO2% (BldA) [Mass fraction] 95 % Etta Gordon Other [facility] Other 03-05-2023 16:00-0500 Systolic blood pressure 125 mm[Hg] Etta Gordon Other [facility] Other Encounters Encounter Date Encounter Type Care Provider Facility Start: 08-12-2023 End: 08-12-2023 ambulatory BENY LANG [facility] Work Phone: Start: 08-12-2023 End: 08-12-2023 Patient encounter procedure [facility] Physician [facility] Work Phone: Start: 07-12-2023 End: 07-12-2023 ambulatory [facility] Start: 07-09-2023 Non-patient / Non-visit [facility] [employer] Work Phone: Start: 06-30-2023 End: 06-30-2023 ambulatory [facility] Start: 06-21-2023 End: 06-21-2023 Patient encounter procedure [facility] Work Phone: Start: 06-18-2023 End: 06-18-2023 ambulatory [facility] Start: 06-08-2023 End: 06-08-2023 ambulatory [facility] Start: 05-31-2023 End: 05-31-2023 ambulatory Etta Gordon Other [facility] Other Start: 05-31-2023 Telephone encounter Etta Gordon [facility] Start: 05-21-2023 End: 05-21-2023 ambulatory Foreign [facility] Other [facility] Other Start: 05-21-2023 Telephone encounter Foreign [facility] Start: 05-18-2023 Patient encounter procedure [facility] Physician [facility]- Start: 05-17-2023 End: 05-17-2023 ambulatory [facility] Start: 05-14-2023 End: 05-14-2023 ambulatory Foreign [facility] Other [facility] Other Start: 05-14-2023 Office outpatient vi sit 25 minutes Foreign [facility] Start: 05-06-2023 Evaluation and management of inpatient [facility] Start: 05-05-2023 Evaluation and management of inpatient [facility] Start: 05-05-2023 End: 05-11-2023 [facility] Start: 04-30-2023 End: 04-30-2023 ambulatory Foreign [facility] Other [facility] Other Start: 04-30-2023 Telephone encounter [facility] Start: 04-01-2023 End: 04-01-2023 ambulatory Foreign [facility] Other [facility] Other Start: 04-01-2023 Telephone encounter Foreign [facility] Start: 03-05-2023 End: 03-05-2023 ambulatory Etta Gordon Other [facility] Other Start: 03-05-2023 Office outpatient vi sit 25 minutes Etta Gordon [facility] Start: 02-26-2022 Encounter for genera l adult medical examination without abnormal findings DR FOREIGN BENJAMIN [facility] Start: 02-21-2022 End: 02-22-[address] FOREIGN BENJAMIN Facility:[facility] Start: 02-21-2022 End: 02-22-2022 Encounter for general adult medical examination without abnormal findings DR FOREIGN BENJAMIN Facility:[facility] Start: 01-20-2022 Adult health examination Etta Gordon Other [facility] Other Start: 05-16-2021 End: 05-17-[address] FOREIGN BENJAMIN Facility:[facility] Start: 03-31-2021 End: 04-01-[address] FOREIGN BENJAMIN Facility:[facility] Start: 08-18-2018 Patient encounter procedure [...] ant neoplasm of breast Etta Gordon Other Plan of Treatment Date Care Activity Detail Author MG Breast - bilateral Screening [facility] Payers Date Payer Category Payer Unknown [id number] 1960 Unknown [id number] 1960 Unknown [id number] 1960 Unknown [id number] 1960 Unknown [id number] [id number] 1958 Unknown [id number] Self-pay Self Pay [id number] Social History Date Type Detail Facility Unknown if ever smoked [facility] Other Sex Assigned At Sex Assigned At Bir th [facility] Other Start: 07-07-2018 Tobacco smoking status NHIS Never smoked tobacco (finding) [facility] Start: 1960 Sex Assigned At Female F [facility] Medical Equipment Procedure Code Equipment Code Equipment Origin al Text Equipment Identifier Dates Arthroplasty, knee, total, minimally invasive ART SURF RT 14MM 6-9 C-D VE FDA Start: 07-04-2018 Arthroplasty, knee, total, minimally invasive CEMENT BONE 1X40 RADIOPAQUE FDA Start: 07-04-2018 Arthroplasty, knee, total, minimally invasive CEMENT BONE 1X40 RADIOPAQUE FDA Start: 07-04-2018 Arthroplasty, knee, total, minimally invasive EXTENSION STEM 14 X 30MM FDA Start: 07-04-2018 Arthroplasty, knee, total, minimally invasive FEMUR PERSONA RIGHT SIZE 7 FDA Start: 07-04-2018 Arthroplasty, knee, total, minimally invasive PATELLA PERSONA 32MM VIVACIT-E FDA Start: 07-04-2018 Arthroplasty, knee, total, minimally invasive TIBIA PERSONA RIGHT SIZE D FDA Start: 07-04-2018 Clinical Notes 10-22-2020 to 08-12-2023 Note Date & Type Note Facility 08-12-2023 Note Cardiovascular Medic ine [facility] SUBJECTIVE Chief Complaint Patient presents with Atrial Fibrillation Congestive Heart Failure Ngozi Cardoso is a 63 y.o. female here for follow-up. HPI PMHx: HFrEF, a.fib/flutter, HTN, DM, RAVI 08/12/23 Since last seen she underwent an a.flutter ablation with loop recorder placement. She has a smart watch has told her she has had some episodes of a.fib. Maybe one episode of a longer period otherwise shorter episodes. She could feel the longer episode but not the short episodes. She feels dizziness. Per Dr. Cronin: HPI: Ngozi Cardoso is a 62 y.o. year old with past medical history of hypertension diabetes obstructive sleep apnea was admitted to [facility] with shortness of breath and was [...] converted to sinus rhythm and subsequently discharged Patient Active Problem List Diagnosis Chronic systolic congestive heart failure, NYHA class 2 (CMS/HCC) Paroxysmal atrial fibrillation (CMS/HCC) Grade II diastolic dysfunction Benign hypertensive cardiomyopathy with heart failure (CMS/HCC) Acute kidney injury (CMS/HCC) Anemia following surgery History of deep venous thrombosis Hypertension Hypokalemia Impaired mobility and activities of daily living Lack of stamina Morbid obesity with body mass index (BMI) of 50.0 to 59.9 in adult (CMS/HCC) Postoperative pain Status post total right knee replacement Thrombocytopenia (CMS/HCC) Past Medical History: Diagnosis Date Abnormal ECG Arrhythmia Atrial fibrillation (CMS/HCC) CHF (congestive heart failure) (CMS/HCC) Diabetes mellitus ([facility]/HCC) Hypertension Family History Problem Relation Name Age of Onset Heart attack Mother Stroke Mother Atrial fibrillation Father Heart attack Brother Stroke Brother Social History Tobacco Use Smoking status: Never Smokeless tobacco: Never Substance Use Topics Alcohol use: Not Currently Allergies Allergen Reactions Penicillins Hives ROS Cardiovascular: Positive for leg swelling (resolves by morning) and palpitations. Neurological: Positive for dizziness, headaches and light-headedness. All other systems reviewed and are negative. OBJECTIVE Visit Vitals BP 128/80 (BP Location: Left arm, Patient Position: Sitting) Pulse 66 Ht 1.651 m (5' 5 ) Wt (!) 152 kg (334 lb) SpO2 99% BMI 55.58 kg/m??? OB Status Hysterectomy Smoking Status Never BSA 2.64 m??? Medications: Current Outpatient Medications: amiodarone (Pacerone) 200 mg tablet, Take 1 tablet (200 mg) by mouth with breakfast. Do not start before May 25, 2023., Disp: 90 tablet, Rfl: 3 amitriptyline (Elavil) 25 mg tablet, Take by mouth at bedtime., Disp: , Rfl: apixaban (Eliquis) 5 mg tablet, Take 1 tablet (5 mg) by mouth in the morning and at bedtime., Disp: 180 tablet, Rfl: 3 bumetanide (Bumex) 1 mg tablet, Take 1 tablet (1 mg) by mouth in the morning., Disp: 90 tablet, Rfl: 3 carvedilol (Coreg) 6.25 mg tablet, Take 1 tablet (6.25 mg) by mouth with breakfast and with evening meal., Disp: 180 tablet, Rfl: 3 dapagliflozin propanediol (Farxiga) 10 mg, Take 1 tablet (10 mg) by mouth once daily as directed., Disp: 14 tablet, Rfl: 0 diclofenac (Voltaren) 75 mg EC tablet, Take 75 mg by mouth in the morning and at bedtime. Do not crush, chew, or split., Disp: , Rfl: losartan (Cozaar) 25 mg tablet, Take 1 tablet (25 mg) by mouth in the morning., Disp: 90 tablet, Rfl: 3 magnesium oxide (Mag-Ox) 400 mg (241.3 mg magnesium) tablet, Take 1 tablet (400 mg) by mouth in the morning and at bedtime., Disp: 180 tablet, Rfl: 3 metFORMIN XR (Glucophage-XR) 500 mg 24 hr tablet, Take 500 mg by mouth daily with evening meal. Do not crush, chew, or split., Disp: , Rfl: spironolactone (Aldactone) 25 mg tablet, Take 1 tablet (25 mg) by mouth once daily as directed., Disp: 14 tablet, Rfl: 0 Physical Exam Vitals reviewed. Constitutional: Appearance: Normal appearance. She is obese. HENT: Head: Normocephalic and atraumatic. Right Ear: External ear normal. Left Ear: External ear normal. Eyes: Extraocular Movements: Extraocular movements intact. Conjunctiva/sclera: Conjunctivae normal. Pupils: Pupils are equal, round, and reactive to light. Neck: Vascular: No carotid bruit. Cardiovascular: Rate and Rhythm: (more content not included)... [facility] 08-12-2023 Note Patient here for fol low up atrial flutter ablation and loop recorder insertion on 07/12/[address] Cronin. She denies chest pain and SOB. Denies bleeding on Eliquis. Still getting dizzy spells at work. Says she still has tenderness and pain at loop recorder site. Review of Systems Cardiovascular: Positive for leg swelling (resolves by morning) and palpitations. Neurological: Positive for dizziness, headaches and light-headedness. All other systems reviewed and are negative. [facility] 07-12-2023 Note ATRIAL FLUTTER ABLAT ION & LOOP IMPLANT PROCEDURE NOTE DATE OF PROCEDURE: 07/12/2023 PERFORMING PHYSICIAN: Dr. Jose Luis Cronin. CONSENT: Patient NAME OF THE PROCEDURE: Flutter ablation and Comprehensive EP study. INDICATIONS FOR PROCEDURE: Atrial flutter PROCEDURES PERFORMED: 1. Sonosite guided venous access as noted below and images stored in PACS. 2. Comprehensive EP study and catheter ablation for persistent atrial flutter. This includes right atrial recording and pacing, His bundle recording and right ventricular recording and pacing. 3. Intracardiac EP 3D mapping. 4. Intracardiac echocardiogram 5. Left atrial and coronary sinus recording and pacing to assess ablation results. 6. Conscious sedation. 7. LOOP monitor placement. PROCEDURAL SEDATION: Versed and Fentanyl. Moderate sedation was administered by the sedation nurse under my supervision and noted in the CVL log. Intraprocedural face to face sedation time: 70min. Monitoring: Cardiac telemetry, Blood pressure, continuous pulse oxymetry. FLUOROSCOPY: 1.5min/39mGy EBL: 15cc SPECIMEN REMOVED: None INDICATION: 62 year old with past medical history of hypertension, diabetes obstructive sleep apnea was admitted to [facility] with shortness of breath and was noted to be in atrial fibrillation with RVR. Pulmonary embolism was ruled out with a CTA and echocardiogram showed a drop in EF to 40% with severe dilatation of left atrium there was some concern of whether the strips that showed presence of atrial flutter with 2:1 conduction with aberrancy. To evaluate the cardiomyopathy patient underwent cardiac cath which showed a normal coronary angiography and right heart cath showed mildly elevated wedge pressures and was started on diuretics. She was noted to be in atrial flutter during hospital stay and was started on amiodarone and converted to sinus rhythm and subsequently discharged. So she was brought for flutter ablation. PROCEDURE NOTE: Risks, benefits and alternatives of the procedure were discussed with the patient and family who agreed to proceed. Please refer to my consult note for details of the discussion and of indications. The patient was brought to the EP lab and a procedural pause was performed identifying the patient, the procedure. The patient presented in sinus rhythm and ICE imaging was used to rule out PROMISE clot. Both the groins were then prepared and draped. Ultrasound was used to determine the course and patency of the femoral veins on both sides and they were noted to be patent and the image stored in PACS. After infiltration with 1% lidocaine, 3 venous access was noted but due to difficulty in sheath movement only 2 sheaths were placed in the right. RFV: 8Fx3 [employer] Thermo[employer] SF Bi-Directional over SL1/ Vizigo, ICE catheter. CS Catheter (EZ Steer) Heparin 5000U bolus was given followed by continuous intravenous drip to target ACT around 300. An intracardiac ultrasound catheter was inserted into the right atrium to examine the right atrial anatomy, atrial septum, pulmonary vein anatomy and to monitor for pericardial effusion. At baseline, there was mild pericardial effusion and no PROMISE clot. CS os was mapped using the [employer] 3D mapping software. Using ICE, the His and IVC junctions were marked with 3D CARTO mapping software. Vizigo sheath was exchanged for a short 8F sheath. Vizigo sheath was placed instead of short 8F sheath. The ablation catheter was advanced over to the CTI. Ablation was performed on the CTI line starting at the tricuspid valve aspect. 40W was utilized and I extended the ablation to the IVC aspect, but no bidirectional block was seen. There was a significant pouch notedwhich made it challenging to have good contact at the IVC aspect. Reablation was performed in this area which led to CTI block and bidirectional CTI block was noted. Pacing from the proximal CS as well as lateral aspect of RA (201ms) confirmed this. Differential pacing also confirmed CTI block. EP study was then performed. Atrial pacing was performed from CS poles. Burst pacing at 250ms easily induced Afib. DCCV was done to convert to SR.EP study and ablation were then stopped at this time. ICE imaging confirmed the same extent of pericardial effusion. Sheaths were pulled and hemostasis was confirmed with manual compression. ICE catheter and all catheters were removed. Venous sheaths were pulled and hemostasis noted. I decided to proceed with LOOP monitor for AF surveillance. Sterile prep and drape were performed over the left precordium and anesthesia with 1% lidocaine was followed by a small incision was made in the 3rd intercostal space near the sternum on the left using the [employer] tool. The loop recorder was then injected subcutaneously and noted to have good sensing parameters. Technical details of the device as noted below. The skin was then closed with 3-0 absorbable monofilament sut (more content not included)... [facility] 07-12-2023 Note Patient: Ngozi parker Procedure Information Date/Time: 07/12/23 0830 Procedures: Ablation atrial flutter Loop insertion Location: [facility] APPLE PACKING HEADER 1 EP / [facility] (Cath) Providers: Jose Luis Cronin MD Clinical information reviewed: Allergies Meds OB Status Physical Exam Airway Mallampati: II TM distance: >3 FB Neck ROM: full Cardiovascular Dental Pulmonary Abdominal Anesthesia Plan ASA 2 CSE Anesthetic plan and risks discussed with patient. Use of blood products discussed with patient who. Additional Equipment Requests [facility] 06-30-2023 Note CHF stable with out exacerbation Continue GDMT as prescribed [facility] 06-30-2023 Note BP in office perfect 128/72, but with midodrine 5 mg tid she has exaggerated supine hypertension at home after review of b/p log, therefore recommended pt to take midodrine as needed - hold for SBP> 120, and can also cut tab in / to = 2.5 mg And she voiced understanding. [facility] 06-30-2023 Note [id number]= 4 Continue eliquis anticoagulation, amiodarone for rhythm control and coreg for rate control [facility] 06-30-2023 Note Patient here c/o hyp [...] All other systems reviewed and are negative. [facility] 06-30-2023 Note [facility] CARDIOLOGY PROGR ESS NOTE HPI: Ngozi Cardoso is a 62 y.o. female here [...] 20 18 14 (more content not included)... [facility] 06-18-2023 Note HTN currently well c ontrolled, also labile 90/57 and may have been Contributing to symptoms this week. Will add midodrine 5 mg tid to regime to prevent hypotension, lightheadedness/dizziness or syncope. [facility] 06-18-2023 Note [facility] II- currently w ithout exacerbation Continue GDMT- ASA, coreg, farxiga, losartan, entresot and aldatone Diuretic therapy- bumex 1 mg daily Monitor daily weights, I&O, fluid restriction 1.5-2L/day, renal function and electrolytes [facility] 06-18-2023 Note Continue amiodarone 200 mg daily, and coreg 6.25 mg bid. Will add midodrine 5 mg tid to regime for noted hypotension and symptoms of lightheadedness/dizziness and near syncope. Continue eliquis anticoaogulation- denied any bleeding tendencies [facility] 06-18-2023 Note [facility] CARDIOLOGY PROGR ESS NOTE HPI: Ngozi Cardoso is a 62 y.o. female here [...] negative. Previous HPI per Dr Cronin HPI: Ngozi Cardoso is a 62 y.o. year old with past medical history of hypertension diabetes obstructive sleep apnea was [facility] Hospital with shortness of breath and was [...] Musculoskeletal: General: N (more content not included)... [facility] 06-18-2023 Note Patient here c/o epi [...] All other systems reviewed and are negative. [facility] 06-08-2023 Note [place] Electrophysiology Consult Note Reason for visit: Afib HPI: Ngozi Cardoso is a 62 y.o. year old with past medical history of hypertension diabetes obstructive sleep apnea was admitted to [facility] with shortness of breath and was [...] file (05/05/2023) Utilities: Not At Risk (05/05/2023) [facility] Utilities Threatened with loss of utilities: [...] Arteries: bilateral no (more content not included)... [facility] 05-17-2023 Note [facility] Cardiology Clinic Note Chief Complaint: Patient here for follow up [facility]. Had cath on 05/07/2023. Denies chest pain, SOB, and bleeding on Eliquis. Denies palpitations and lightheadedness/syncope. Still trying to regain her strength s/p hospital stay. HPI: Ngozi Cardoso is a 62 y.o. female With [...] PSYCH: appropriate mood, affect, and judgement. INVESTIGATIONS: Echocardiogram-[facility] Name: NGOZI CARDOSO Study Date: 05/06/2023 08:24 AM B/P: 131 mmHg/56 mmHg HR: 80 bpm Date of : 1960 Location: [facility] Height: 65 in. Age: 62 year(s) [...] 2, moderate diastolic (more content not included)... [facility] 05-14-2023 Evaluation note Encounter Date Diagnosis [...] forms for supplies and faxed back to [employer]. Pt states she will restart and become compliant w CPAP treatment. Novacem Other 01-23-2024 NotePt provided with discharge education and instructions. Heart failure folder reviewed in detail and filled out. Medications delivered and at bedside. All questions answered. Pt wheeled to main entrance, father there for transport. [facility]01-23-2024 NoteCardiology Progress Note Subjective F/U Acute systolic heart failure Patient up in chair. Denies SOB, cp, palpitations. Reports pedal edema significantly improved. Tele - currently NSR, with some episodes a.fib overnight per [facility] Objective Patient Vitals for the past 24 [...] Value Ventricular Rate 81 Atrial Rate 81 WV Interval 208 QRS DURATION 178 QT Interval 442 QTC CALCULATION(BAZETT) 513 P Bradford 34 R-Bradford -48 T Wave Bradford 101 Impression Normal sinus rhythm Left axis [...] midrange ejection fraction (HFmrEF) should include a beta-saman, RAAS inhibitor, an SGLT2 inhibitor and spironolactone [...] internal jugular vein was obtained. A 6 Venezuelan 11 cm sheath was inserted without difficulty. [...] left radial artery was obtained. A 6 Venezuelan glide sheath was inserted without difficulty. Difficulty [...] outline, coronary spasm was (more content not included)...[facility]01-23-2024 NoteHospital Medicine Discharge Summary Final Discharge Diagnosis: Atrial fibrillation with RVR- [id number] score 4 Atrial flutter New onset of congestive heart failure/heart failure -ejection fraction, 40% TTE 05/06/23 NYHA class II Hypokalemia/Hypomagnesemia Essential hypertension DMII noninsulin dependent Thrombocytopenia Osteoarthritis Obstructive sleep apnea with non compliance to CPAP Obese class 3 Admission Diagnosis: Acute systolic heart failure (CMS/HCC) [I50.21] Hospital course: History of Present Illness Ngozi Cardoso is an 62 y.o. female admitted from [facility] as a direct admit. She has history of hypertension diabetes obstructive sleep apnea not using CPAP or BiPAP he was admitted at [facility] with chief complaint of sudden onset of shortness of breath. According to patient she wake up in the morning 2 days back very short of breath denies any chest pain heart palpitation dizziness syncope weakness no increased cough or expectoration and no fever chills cough drops with the family to [place] [facility] with she was noted to be [...] and EKG were reviewed from [facility]. Strip labeled as V. tach is [...] EP prior to discharge. Cards note Assessment: Ngozi Cardoso is a 62 y.o. female With past medical history of hypertension, diabetes, obstructive sleep apnea who was admitted to [facility] with sudden onset shortness of breath found to have new onset heart failure and atrial fibrillation. Acute heart failure with mid range ejection fraction, 40% TTE 05/06/23 NYHA class II Atrial fibrillation/flutter, QSO2WL0-QSHx 4 (female-1, heart failure-1, diabetes mellitus-1, Hypertension-1) [...] continue to follow Dear Dr. Niall MD, Ngozi is advised to follow up with you within 1-2 weeks. Follow-up with: Cardiology Scheduled appointments: Future Appointments Date Time Provider Department Center 05/17/2023 1:00 PM Regina Stark MD [facility] 06/08/2023 2:40 PM Jose Luis Cronin MD [facility] Your medication list START taking these medications Instructions Last Dose Given Next Dose Due amiodarone 400 mg tablet Commonly known as: Pacerone Take 1 tablet (400 mg) by mouth (more content not included)...[facility]01-23-2024 NoteNutrition Screening Assessment: Patient Name: Ngozi Cardoso : 1960 Date of Assessment: 05/11/23 [...] with questions and contact the dietitian via [employer] chat 8A-4P Wednesday-Wednesday. Or call the dietitian's office at extension [phone]. For weekends/holidays, the dietitian's can be reached by paging [phone] from 9A-3P. Unable to be reached via [employer] chat on Wednesday & s.)[facility]01-22-2024 NoteHospital Medicine Daily Progress Note - 05/10/2023 12:14 PM; Room: [address] [place] [address] Admission: 05/05/2023 7:10 PM; Length of stay: 5 days THE HOSPITALIST TEAM PREFERS TO USE [employer] FOR COMMUNICATION 7AM-7PM. IF I DO NOT RESPOND WITHIN 15 MINUTES, PLEASE PAGE ME/CALL THROUGH THE POWER SCREWDRIVER OPERATOR. FROM 7PM-7AM, PLEASE PAGE [phone](COVR) Code Status: Full Code Barriers to Discharge: [...] Assessment and Plan Atrial fibrillation with RVR- [id number] score 4 - resumed eliquis - amio [...] FREET4 1.08 05/06/2023 No results found for: [id number] , IRON , TIBC , C3 , [...] cardiovascular factor modificati (more content not included)... [facility]01-22-2024 NotePt admitted to hospital for acute on chronic systolic HF, hx of HTN, DM, RAVI w/o CPAP compliance. Pt's echo from 05/06/23 estimated LVEF 40%, which does not qualify pt for cardiac rehab (CR) therapy with HF diagnosis per CMS eligibility criteria. I will watch for updates and follow up with pt, if appropriate. NICHELLE RosalesN hand surgeon Outpatient Coordinator Cardiopulmonary RehabUnSelect Medical [facility]01-22-2024 Note Cardiology Progress Note Subjective F/U Acute [...] Value Ventricular Rate 81 Atrial Rate 81 WV Interval 208 QRS DURATION 178 QT Interval 442 QTC CALCULATION(BAZETT) 513 P Bradford 34 R-Bradford -48 T Wave Bradford 101 Impression Normal sinus rhythm Left axis [...] midrange ejection fraction (HFmrEF) should include a beta-saman, RAAS inhibitor, an SGLT2 inhibitor and spironolactone [...] internal jugular vein was obtained. A 6 Venezuelan 11 cm sheath was inserted without difficulty. [...] left radial artery was obtained. A 6 Venezuelan glide sheath was inserted without difficulty. Difficulty advancing the [place] wire was encountered; therefore this was removed. Angiography was performed via the JR catheter. T (more content not included)...[facility]01-21-2024 NoteHospital Medicine Daily Progress Note - 05/09/2023 12:26 PM; Room: [facility]3131- Admission: 05/05/2023 7:10 PM; Length of stay: 4 days THE HOSPITALIST TEAM PREFERS TO USE [employer] CHAT FOR COMMUNICATION 7AM-7PM. IF I DO NOT RESPOND WITHIN 15 MINUTES, PLEASE PAGE ME/CALL THROUGH THE POWER SCREWDRIVER OPERATOR. FROM 7PM-7AM, PLEASE PAGE [phone](COVR) Code Status: Full Code Barriers to Discharge: [...] Assessment and Plan Atrial fibrillation with RVR- [id number]-ZFKq score 4 - currently on metoprolol - [...] FREET4 1.08 05/06/2023 No results found for: [id number] , IRON , TIBC , C3 , [...] for heart failure with (more content not included)...[facility]01-21-2024 Note Attestation signed by Adenike Serrano [...] Value Ventricular Rate 81 Atrial Rate 81 WV Interval 208 QRS DURATION 178 QT Interval 442 QTC CALCULATION(BAZETT) 513 P Bradford 34 R-Bradford -48 T Wave Bradford 101 Impression Normal sinus rhythm Left axis deviation Left bundle branch block Abnormal ECG When compared with ECG of 13-FEB-2013 09:22, No significant change was found Confirmed by Jose Luis Cronin ([id number]) on 05/05/2023 9:15:31 PM Lab Results Component Value Date TROPONINI 0.01 05/06/2023 Complete Echo (TTE) w/wo Imaging Agent, Strain, 3D, Bubble Study Result Date: 05/06/2023 1 1 [facility] Heart Station [address] [place] [address] [phone] (fax) Echocardiogram-[facility] Name: NGOZI CARDOSO Study Date: 05/06/2023 08:24 AM B/P: 131 mmHg/56 mmHg HR: 80 bpm Date of : 1960 Location: [facility] Height: 65 in. Age: 62 year(s) [...] 2.4 cm?? Findings Left (more content not included)...[facility]01-20-2024 Note Attestation signed by Adenike Serrano [...] Value Ventricular Rate 81 Atrial Rate 81 WV Interval 208 QRS DURATION 178 QT Interval 442 QTC CALCULATION(BAZETT) 513 P Bradford 34 R-Bradford -48 T Wave Bradford 101 Impression Normal sinus rhythm Left axis deviation Left bundle branch block Abnormal ECG When compared with ECG of 13-FEB-2013 09:22, No significant change was found Confirmed by Jose Luis Cronin ([id number]) on 05/05/2023 9:15:31 PM Lab Results Component Value Date TROPONINI 0.01 05/06/2023 Complete Echo (TTE) w/wo Imaging Agent, Strain, 3D, Bubble Study Result Date: 05/06/2023 1 1 [facility] Heart Station [address] [place] [address] [phone] (fax) Echocardiogram-[facility] Name: NGOZI CARDOSO Study Date: 05/06/2023 08:24 AM B/P: 131 mmHg/56 mmHg HR: 80 bpm Date of : 1960 Location: [facility] Height: 65 in. Age: 62 year(s) [...] cm Mitral Valv (more content not included)... [facility]01-20-2024 NoteHospital Medicine Daily Progress Note - 05/08/2023 8:40 AM; Room: [facility]/3131-01 Admission: 05/05/2023 7:10 PM; Length of stay: 3 days THE HOSPITALIST TEAM PREFERS TO USE [employer] FOR COMMUNICATION 7AM-7PM. IF I DO NOT RESPOND WITHIN 15 MINUTES, PLEASE PAGE ME/CALL THROUGH THE POWER SCREWDRIVER OPERATOR. FROM 7PM-7AM, PLEASE PAGE [phone](COVR) Code Status: Full Code Barriers to Discharge: [...] Assessment and Plan Atrial fibrillation with RVR- [id number] score 4 - currently on metoprolol - [...] FREET4 1.08 05/06/2023 No results found for: [id number] , IRON , TIBC , C3 , [...] midrange ejection fraction (H (more content not included)...[facility] 05-07-2023 NoteCardiovascular Laboratory Report FINAL IMPRESSIONS: [...] midrange ejection fraction (HFmrEF) should include a beta-saman, RAAS inhibitor, an SGLT2 inhibitor and spironolactone [...] internal jugular vein was obtained. A 6 Venezuelan 11 cm sheath was inserted without difficulty. [...] left radial artery was obtained. A 6 Venezuelan glide sheath was inserted without difficulty. Difficulty [...] outline, coronary spasm was suspected. A 6 Venezuelan JR4 guide catheter was advanced in over [...] exertional shortness of breath, wide-complex tachycardiaUnSelect Medical [facility]01-19-2024 Note Patient: Ngozi Cardoso Procedure Information Date/Time: 05/07/23 1700 Procedures: Coronary angiography Right heart cath Location: [facility] 3 / [facility] (Cath) Providers: Regina Stark [...] Additional Equipment Requests Regina Stark MD, MPH, [facility], [facility], [facility] Interventional Cardiology Pager Email: [email or web address] Medical [facility]01-19-2024 NoteCardiology Progress Note Subjective Subjective: Patient seen [...] Value Ventricular Rate 81 Atrial Rate 81 WV Interval 208 QRS DURATION 178 QT Interval 442 QTC CALCULATION(BAZETT) 513 P Bradford 34 R-Bradford -48 T Wave Bradford 101 Impression Normal sinus rhythm Left axis deviation Left bundle branch block Abnormal ECG When compared with ECG of 13-FEB-2013 09:22, No significant change was found Confirmed by Jose Luis Cronin ([id number]) on 05/05/2023 9:15:31 PM Lab Results Component Value Date TROPONINI 0.01 05/06/2023 Complete Echo (TTE) w/wo Imaging Agent, Strain, 3D, Bubble Study Result Date: 05/06/2023 1 1 [facility] Heart Station [address] [place] [address] [phone] (fax) Echocardiogram-[facility] Name: NGOZI CARDOSO Study Date: 05/06/2023 08:24 AM B/P: 131 mmHg/56 mmHg HR: 80 bpm Date of : 1960 Location: [facility] Height: 65 in. Age: 62 year(s) [...] (pseudonormalized LV filling patte (more content not included)...[facility] 05-07-2023 NoteHospital Medicine Daily Progress Note - 05/07/2023 7:58 AM; Room: [address] [place] [address] Admission: 05/05/2023 7:10 PM; Length of stay: 2 days THE HOSPITALIST TEAM PREFERS TO USE [employer] CHAT FOR COMMUNICATION 7AM-7PM. IF I DO NOT RESPOND WITHIN 15 MINUTES, PLEASE PAGE ME/CALL THROUGH THE POWER SCREWDRIVER OPERATOR. FROM 7PM-7AM, PLEASE PAGE [phone](COVR) Code Status: No Order Barriers to Discharge: [...] Problems Principal Problem: Acute systolic heart failure (CMS/[facility]) Assessment and Plan 62 year-old female who is transferred from [facility] with chief complaint of sudden onset of shortness of breath and was found to been atrial fibrillation with RVR that was treated with Cardizem drip, further workup with echocardiogram shows ejection fraction of 40%. transferred to [facility] for further cardiac evaluation. Assessment: Atrial fibrillation with RVR- [id number]-OWJr score 4 New onset of congestive heart [...] 05/06/2023 FREET4 1.08 05/06/19 (more content not included)...[facility]01-18-2024 NoteHospital Medicine Daily Progress Note - 05/06/2023 9:19 AM; Room: [address] [place] [address] Admission: 05/05/2023 7:10 PM; Length of stay: 1 days THE HOSPITALIST TEAM PREFERS TO USE [employer] CHAT FOR COMMUNICATION 7AM-7PM. IF I DO NOT RESPOND WITHIN 15 MINUTES, PLEASE PAGE ME/CALL THROUGH THE POWER SCREWDRIVER OPERATOR. FROM 7PM-7AM, PLEASE PAGE [phone](COVR) Code Status: No Order Barriers to Discharge: [...] female who is transferred from [facility] with chief complaint of sudden onset of shortness of breath and was found to been atrial fibrillation with RVR that was treated with Cardizem drip, further workup with echocardiogram shows ejection fraction of 40%. transferred to [facility] for further cardiac evaluation. Assessment: Atrial fibrillation with RVR- [id number] score 3 New onset of congestive heart [...] FREET4 1.08 05/06/2023 No results found for: [id number] , IRON , TIBC , C3 , C4 , ILSA , CANCA , ASO , P (more content not included)...[facility] 05-05-2023 NoteHospital Medicine History and Physical 05/05/2023 9:20 PM THE HOSPITALIST TEAM PREFERS TO USE [employer] CHAT FOR COMMUNICATION 7AM-7PM. IF I DO NOT RESPOND WITHIN 15 MINUTES, PLEASE PAGE ME/CALL THROUGH THE POWER SCREWDRIVER OPERATOR. FROM 7PM-7AM, PLEASE PAGE [phone](COVR) Chief Complaint No chief complaint on file. History of Present Illness Ngozi Cardoso is an 62 y.o. female admitted from [facility] as a direct admit. She has history of hypertension diabetes obstructive sleep apnea not using CPAP or BiPAP he was admitted at [facility] with chief complaint of sudden onset of shortness of breath. According to patient she wake up in the morning 2 days back very short of breath denies any chest pain heart palpitation dizziness syncope weakness no increased cough or expectoration and no fever chills cough drops with the family to [place] [facility] with she was noted to be [...] retrieve copy of echo from [facility] follow-up with cardiology New onset congestive heart failure/HFrEF CHF core measures in place metoprolol Cozaar diuretics and add Farxiga serial electrolytes creatinine reduced ejection fraction would need left heart cath to rule out ischemic heart disease Hypertension blood pressure control as above suspect underlying obstructive sleep apnea discussed with patient about follow-up with her P (more content not included)...[facility]11-17-2023 Evaluation note* Encounter Date Diagnosis Assessment [...] treatment plan. Patient left in stable condition Novacem Other [id number] Evaluation note* Diagnosis Onset Date Resolution Status Essential (primary) hypertension October 22, 2020 acute Paroxysmal atrial fibrillation acute Screening mammogram for breast cancer acute Type 2 diabetes mellitus with hyperglycemia acute [facility] Work Phone: Evaluation noteNo InformationNort [employer] Other History general Narrative - Reported* Type [...] knee arthroplasty 05/07 Hospitalization History see above Novacem Other Summary Purpose Family History No Family History Records Found Relationship Condition Age at Onset Recorded Date/T annette Not Specified Heart disease Unknown Unknown Diabetes mellitus Unknown sister Unknown Advance Directives No Advanced Directives Records Found Advance Directive Response Recorded Date/ Time Advance Directives Yes July 19 3:51pm Chief Complaint and Reason for Visit Chief Complaint 6 week follow up WELLNESS Reason for Visit Essential (primary) hypertension Paroxysmal atrial fibrillation Screening mammogram for breast cancer Type 2 diabetes mellitus with hyperglycemia Additional Source Comments INFORMATION SOURCE (unrecogn ized section and content) DATE CREATED AUTHOR 08/28/2018 [facility] DATE CREATED AUTHOR AUTHOR'S ORGANIZ ATION 05/07/2021 [facility] DATE CREATED AUTHOR AUTHOR'S ORGANIZ ATION 09/19/2021 [facility] DATE CREATED AUTHOR AUTHOR'S ORGANIZ ATION 02/27/2022 [facility] DATE CREATED AUTHOR AUTHOR'S ORGANIZ ATION 08/13/2023 [facility] REASON FOR VISIT (unrecogniz ed section and content) COUGH//SORE THROAT//FATIGUER EFILLRefillUTMC - D/C 05/11messagemessage Care Teams (unrecognized sec tion and content) Team Status: Active Member Role Status Dates Foreign Benjamin MD Primary Care Provider Active Team Status: Active Member Role Status Dates Provider Conversion Attending Provider Active St art: May 18, 2023 Team Status: Inactive Member Role Status Dates Foreign Benjamin MD Primary Care Provide r, Attending Provider Active Start: June 21, 2023 End: June 21, 2023 Team Status: Active Member Role Status Dates Foreign Benjamin MD Primary Care Provide r, Attending Provider Active Start: July 09, 2023 Team Status: Inactive Member Role Status Dates Foreign Benjamin MD Primary Care Provide r, Attending Provider Active Start: August 12, 2023 End: August 12, 2023 Goals (unrecognized section and content) Goals may be documented in a n alternate section FOR RECORDS PERTAINING TO PATIENTS WHO ARE [...] BE BASED ON THE PRIMARY CLINICAL RECORDS. [employer] provides no warranty or guarantee of the accuracy or completeness of information in this document.
[2023-08-28 11:01] LABS: Estimated Average Glucose 111 mg/dL; Glycohemoglobin A1C 5.5 % (4.5-6.2)
== END 2023-08-28 08:50 | disposition home or self-care (01) ==
LOC: LAB 08:51
PROVIDERS: PCP Family Medicine; Visit Provider Family Medicine
DX: E11.65 Type 2 diabetes mellitus with hyperglycemia (principal)
CPT/HCPCS: 36415; 83036

== ENCOUNTER 2023-09-10 10:56 | Outpatient (OUT) | payer OTHER, SELFPAY ==
--- NOTE | 2023-09-10 10:59 | MM_ITS ---
Patient Name: FERN CARDOSO MR#: [id number] : 1960 Exam Date: 09/10/2023 Ordering Doctor: DR Sindi Tierney M.D. RADIOLOGY REPORT PROCEDURE: MM TOMOSYNTHESIS SCREENING BI COMPARISON: MG MAMM DIAGNOSTIC 3D GREG CAD, 05/16/2021. MG MAMM GREG SCRN W CAD DIG, 10/25/2012. INDICATIONS: Screening Calculator Name NCI Breast Cancer Risk Assessment Tool 5 Year Breast Cancer Risk 4.00% Lifetime Breast Cancer Risk 17.10% Personal Breast Cancer No Personal Ovarian Cancer No Treatments EXCISION OF SITE Family Cancers Mother with breast cancer at age 61; Aunt-maternal with breast cancer at age ~58. LOCATION: [facility] BREAST COMPOSITION: There are scattered areas of fibroglandular density. FINDINGS: DIAGNOSTIC CATEGORY 2--BENIGN FINDING: RIGHT BREAST: No significant suspicious finding. Numerous punctate calcifications within anterior breast; slightly increased in number compared to prior study, but similar distribution and appearance. No appreciable mass or architectural distortion seen with standard imaging or tomography. LEFT BREAST: No significant suspicious finding. No significant change has occurred. RECOMMENDATIONS: ROUTINE MAMMOGRAM AND CLINICAL EVALUATION IN 12 MONTHS. PLEASE NOTE: A NORMAL MAMMOGRAM DOES NOT EXCLUDE THE POSSIBILITY OF BREAST CANCER. A CLINICALLY SUSPICIOUS PALPABLE LUMP SHOULD BE BIOPSIED. Dictated by: Calin Contreras M.D. on 09/14/2023 at 11:52 Approved by: Calin Contreras M.D. on 09/14/2023 at 12:12
--- OUTSIDE RECORDS SUMMARY | 2023-09-10 11:05 | XMS_ITS | CCD ---
Author Organization [facility] Inform ion Partnership [facility] Care Team Providers Care Staff Counsel Name Role Phone Hans Whiteside Attending Unavailable Benjamin, Foreign Edgar Primary Care Unavaila ble BENJAMIN, DR FOREIGN [...] CRONIN Referring Unavailable SEBAS BAKER Referring Unavailable SANIQRA, SEBAS Referring Unavailable SEBAS BAKER Referring Unavailable JOSE LUIS CRONIN Attending Unavailable LARA ROLAND Attending Unavailable ASUNCION, LARA Attending Unavailable BENY LANG Attending Unavailable Allergies Allergy Classification Reported Allergen(s) Allergy Type Date of Onset Reaction(s) Facility (3 sources) Penicillins; Translations: [PENICILLINS] Drug allergy (disorder) 02-07-[address] [facility] Repository (7 sources) Ciprofloxacin Drug Allergy 08-12-19 Comment:nausea and diarrhea [facility] (7 sources) Penicillin G Drug Allergy 08-12-19 [facility] (7 sources) traMADol Drug Allergy 06-25-19 16 Unknown, Hives [facility] (6 sources) Substance with penicillin structure and antibacterial mechanism of action (substance) Drug allergy 12-23-19 13 Unknown Myer Other (6 sources) patient allergy list reviewed by nurse or physicia Propensity to adverse reactions 11-11-19 19 Comment:Done Myer Other (6 sources) TraMADol & Dietary Manage Prod *ANALGESICS - OPIOI Propensity to adverse reactions 06-25-19 16 Unknown Myer Other (6 sources) Allergies Reconciled Propensity to adverse reactions Unknown Myer Other Medications Current Medications Medication Drug Class(es) [...] Active 81 MG PO Twice daily 40 July 14, 2018 12:00am Start: 06-22-2018 End: [...] Active -Hx Entry for 0 *Reorder from [employer] for eRx and Interaction Alerts* Feb, Active [...] a day for 0 *Pick strength-form from [employer] for eRX* Nov, Active Start: 06-22-2018 End: [...] oral every evening for 0 *Reorder from [employer] for eRx and Interaction Alerts* Feb, Active [...] Oral daily for 0 *Pick strength-form from [employer] for eRX* August, Active Start: 07-14-2018 End: [...] at bedtime for 0 *Pick strength-form from [employer] for eRX* Sep, Not-Taking/PRN take 1 tablet [...] Range Facility Office Visiton 08-12-2023 Follow-up visit [id number] Ngozi Cardoso 1960 F Date Provider Department Center 08/12/2023 BENY LAZAR [facility] Family History Problem Relation Age of Onset Heart attack Mother Stroke Mother Atrial fibrillation Father Heart attack Brother Stroke Brother Family Status - Relation Status Age at Mother Father Brother Level of Service:77015 [place] OFFICE/OUTPATIENT ESTABLISHED MOD MDM 30 MIN Reason for Visit and Comments: Atrial Fibrillation [80] Congestive Heart Failure [127] Normal [facility] 36on 07-19-2023 36 Can wait to see how she does Normal [facility] HPon 07-12-2023 [facility] Electrophysiology Consult Note Reason for visit: Afib HPI: Ngozi Cardoso is a 62 y.o. year old with past medical history of hypertension diabetes obstructive sleep apnea was admitted to [facility] with shortness of breath and was [...] Atrial fibrillation (CMS/HCC) CHF (congestive heart failure) ([facility]/HCC) Diabetes mellitus (CMS/HCC) Hypertension PSH: Past Surgical [...] file (05/05/2023) Utilities: Not At Risk (05/05/2023) [facility] Utilities Threatened with loss of utilities: [...] bilateral no (more content not included)... Normal [facility] NURSNOTEon 07-12-2023 NURSNOTE RN educated pt on d/ c instructions. RN encouraged pt to voice any questions or concerns. Pt verbalizes no questions or concerns at this time. Pt was wheeled off of unit with all of belongings. Normal [facility] Basophils Auto (Bld) [#/Vol] on 07-09-2023 Basophils (Bld) [#/Vol] 0.1 10 3/uL 0.0-0.1 [facility] Basophils/100 WBC Auto (Bld) on 07-09-2023 Basophils/100 WBC (Bld) 1.2 % 0.2-2.0 [facility] Eosinophils/100 WBC Auto (Bl d)on 07-09-2023 Eosinophils/100 WBC (Bld) 4.3 % 0.9-7.0 [facility] Erythrocyte distribution wid th Auto (RBC) [Ratio]on 07-09-2023 Erythrocyte distribution width (RBC) [Ratio] 15.3 % 11.0-15.0 [facility] Estimated glomerular filtrat ion rate (GFR) non- Americanon 07-09-2023 GFR/1.73 sq M.predicted among non-blacks MDRD (S/P/Bld) [Vol rate/Area] 43 mL/min/{1.73_m2} >=60 [facility] Hematocrit Auto (Bld) [Volum e fraction]on 07-09-2023 Hematocrit (Bld) [Volume fraction] 40.3 % 36.0-48.0 [facility] Hemoglobin [Mass/volume] in Bloodon 07-09-2023 Hemoglobin (Bld) [Mass/Vol] 12.8 g/dL 12.0-16.0 [facility] Laboratory - Chemistry and C hemistry - challengeon 07-09-2023 Calcium [Mass/Vol] 8.9 mg/dL 8.5-10.1 [facility] Chloride [Moles/Vol] 102 mmol/L 98-107 [facility] CO2 [Moles/Vol] 30.1 mmol/L 21.0-32.0 [facility] Creatinine [Mass/Vol] 1.27 mg/dL 0.55-1.02 [facility] GFR/1.73 sq M.predicted MDRD (S/P/Bld) [Vol rate/Area] 52 mL/min/{1.73_m2} >=60 [facility] Glucose [Mass/Vol] 114 mg/dL 74-106 [facility] Potassium [Moles/Vol] 3.7 mmol/L 3.5-5.1 [facility] Sodium [Moles/Vol] 142 mmol/L 136-145 [facility] Urea nitrogen [Mass/Vol] 18.0 mg/dL 7.0-18.0 [facility] Urea nitrogen/Creatinine [Mass ratio] 14.2 mg/mg [facility] Laboratory - Hematology and Cell countson 07-09-2023 Immature granulocytes/100 WBC (Bld) 0.2 % 0.0-0.5 [facility] Leukocytes [#/volume] correc renato for nucleated erythrocytes in Blood by Automated counon 07-09-2023 WBC corrected for nucl RBC Auto (Bld) [#/Vol] 4.2 10 3/uL 4.0-11.0 [facility] Lymphocytes Auto (Bld) [#/Vo l]on 07-09-2023 Lymphocytes (Bld) [#/Vol] 1.5 10 3/uL 1.2-3.8 [facility] Lymphocytes/100 WBC Auto (Bl d)on 07-09-2023 Lymphocytes/100 WBC (Bld) 34.8 % 20.5-60.0 [facility] MCH Auto (RBC) [Entitic mass ]on 07-09-2023 MCH (RBC) [Entitic mass] 29.0 pg 26.7-34.0 [facility] MCHC Auto (RBC) [Mass/Vol]on 07-09-2023 MCHC (RBC) [Mass/Vol] 31.8 g/dL 29.9-35.2 [facility] MCV Auto (RBC) [Entitic vol] on 07-09-2023 MCV (RBC) [Entitic vol] 91.4 fL 81.0-99.0 [facility] Monocytes Auto (Bld) [#/Vol] on 07-09-2023 Monocytes (Bld) [#/Vol] 0.3 10 3/uL 0.3-0.8 [facility] Monocytes/100 WBC Auto (Bld) on 07-09-2023 Monocytes/100 WBC (Bld) 7.6 % 1.7-12.0 [facility] Neutrophils Auto (Bld) [#/Vo l]on 07-09-2023 Neutrophils (Bld) [#/Vol] 2.2 10 3/uL 1.4-6.5 [facility] Neutrophils/100 WBC Auto (Bl d)on 07-09-2023 Neutrophils/100 WBC (Bld) 51.9 % 43.0-75.0 [facility] No Panel Informationon 07-08 Eosinophils # (Auto) 0.2 10 3/uL 0.0-0.[address] [facility] Immature Granulocyte # (Auto) 0.01 10 3/uL 0.00-0.03 [facility] Platelet mean volume Auto (B ld) [Entitic vol]on 07-09-2023 Platelet mean volume (Bld) [Entitic vol] 12.4 fL 9.5-13.5 [facility] Platelets Auto (Bld) [#/Vol] on 07-09-2023 Platelets (Bld) [#/Vol] 108 10 3/uL 150-450 [facility] RBC Auto (Bld) [#/Vol]on RBC (Bld) [#/Vol] 4.41 10 6/uL 4.20-5.40 [facility] Serum or plasma anion gap de terminationon 07-09-2023 Anion gap [Moles/Vol] 13.6 mmol/L [facility] Orders Onlyon 07-08-2023 Orders Only [id number] Ngozi Cardoso 1960 F Date Provider Department Center 07/08/2023 MIKE RODRIGUEZ [facility] [place] [facility] Family History Problem Relation Age of Onset Heart attack Mother Stroke Mother Atrial fibrillation Father Heart attack Brother Stroke Brother Family Status - Relation Status Age at Mother Father Brother Normal [facility] Office Visiton 06-30-2023 Follow-up visit [id number] Ngozi Cardoso 1960 F Date Provider Department Center 06/30/2023 LARA [facility] Family History Problem Relation Age of Onset Heart attack Mother Stroke Mother Atrial fibrillation Father Heart attack Brother Stroke Brother Family Status - Relation Status Age at Mother Father Brother Level of Service:48106 [place] OFFICE/OUTPATIENT ESTABLISHED LOW MDM 20 MIN Normal [facility] Office Visiton 06-18-2023 Follow-up visit [id number] Ngozi Cardoso 1960 F Date Provider Department Center 06/18/2023 LARA MARK [facility] Family History Problem Relation Age of Onset Heart attack Mother Stroke Mother Atrial fibrillation Father Heart attack Brother Stroke Brother Family Status - Relation Status Age at Mother Father Brother Level of Service:68457 [place] OFFICE/OUTPATIENT ESTABLISHED MOD MDM 30 MIN Normal [facility] Office Visiton 06-08-2023 Follow-up visit [id number] Ngozi Cardoso 1960 F Date Provider Department Center 06/08/2023 LAZARO JOSE LUIS ELAINE [facility] Family History Problem Relation Age of Onset Heart attack Mother Stroke Mother Atrial fibrillation Father Heart attack Brother Stroke Brother Family Status - Relation Status Age at Mother Father Brother Level of Service:98677 [place] OFFICE/OUTPATIENT NEW HIGH MDM 60 MINUTES [facility] Office Visiton 05-17-2023 Follow-up visit [id number] Ngozi Cardoso 1960 F Date Provider Department Center 05/17/2023 Yoko-RUTJamalREGINA CARD [facility] Family History Problem Relation Age of Onset Heart attack Mother Stroke Mother Atrial fibrillation Father Heart attack Brother Stroke Brother Family Status - Relation Status Age at Mother Father Brother Level of Service:17502 [place] OFFICE/OUTPATIENT ESTABLISHED LOW MDM 20 MIN [facility] 36on 05-12-2023 36 Discharge date: 05/11/23 Call date: 05/12/23 Spoke with: patient HF Follow-up date: 05/17/23 Med reconciliation completed: yes Questions/Concerns: Home meds reviewe with pt. Pt asked about [facility] paperwork that her company was to fax over to the 3rd floor for the discharging provider. [employer] will reach out to the Hospitalist team. Pt is aware of follow up appt. [employer] encouraged pt to monitor daily weights and notified pt where to find education on her AVS to refer to. [facility] Documentationon 05-12-2023 Documentation [id number] Ngozi Cardoso 1960 F Date Provider Department Center 05/12/2023 SUSSY SOLO [facility] [place] [facility] No family history on file Reason for Visit and Comments: HF inpatient satisfaction survey sent. [Other] [facility] Telephoneon 05-12-2023 Telephone [id number] Ngozi Cardoso 1960 F Date Provider Department Center 05/12/2023 [id number] WYATT [facility] No family history on file Reason for Visit and Comments: HF post discharge call [Other] Normal [facility] 30on 05-11-2023 30 Problem: Pain - Adul t Goal: Verbalizes/displays adequate comfort level or baseline comfort level Outcome: Progressing Problem: Safety - Adult Goal: Free from fall injury Outcome: Progressing Flowsheets (Taken 05/11/2023 0746) Free from fall injury: Assess patient frequently for physical needs Identify cognitive and physical deficits and behaviors that affect risk of falls [place] fall precautions as indicated by assessment Modify [...] goals for the shift include safety Normal [facility] BASIC METABOLIC PANELon 04-20 Anion gap [Moles/Vol] 11 mmol/L Normal 7-20 [facility] Comment on above: Performed By: #### L [id number] #### [facility] ([facility] [address] [place] [address] Calcium [Mass/Vol] 9.7 mg/dL Normal 8.6-10.3 [facility] Comment on above: Performed By: #### L [id number] #### [facility] ([facility]) [address] [place] [address] Chloride [Moles/Vol] 98 mmol/L Normal 98-107 [facility] Comment on above: Performed By: #### L [id number] #### [facility] ([facility]) [address] [place] [address] CO2 [Moles/Vol] 30 mmol/L Normal 21-31 [facility] Comment on above: Performed By: #### L [id number] #### [facility] ([facility]) [address] [place] [address] Creatinine [Mass/Vol] 0.80 mg/dL Normal 0.60-1.20 [facility] Comment on above: Performed By: #### L [id number] #### [facility] ([facility]) [address] [place] [address] GLOMERULAR FILTRATION RATE ML/MIN/1.73 SQ M.PREDICTED 83.8 mL/min/1.73m*2 Normal >60.0 [facility] Comment on above: Result Comment: [facility]???s estimated glomerular filtration rate (eGFR) will [...] individuals. Performed By: #### L [id number] #### [facility] ([facility]) [address] [place] [address] Glucose [Mass/Vol] 116 mg/dL High 70-100 [facility] Comment on above: Performed By: #### L [id number] #### [facility] ([facility]) [address] [place] [address] Potassium [Moles/Vol] 3.7 mmol/L Normal 3.5-5.1 [facility] Comment on above: Performed By: #### L [id number] #### [facility] ([facility]) [address] [place] [address] Sodium [Moles/Vol] 135 mmol/L Low 136-145 [facility] Comment on above: Performed By: #### L [id number] #### [facility] ([facility]) [address] [place] [address] Urea nitrogen [Mass/Vol] 17 mg/dL Normal 7-25 [facility] Comment on above: Performed By: #### L [id number] #### [facility] ([facility]) [address] [place] [address] UREA NITROGEN/CREATININE (MASS RATIO) IN SER/PLAS 21.3 Normal [facility] Comment on above: Performed By: #### L [id number] #### [facility] ([facility]) [address] [place] [address] CBCon 05-11-2023 Erythrocyte distribution width (RBC) [Ratio] 15.2 % High 11.5-15.0 [facility] Comment on above: Performed By: #### L [id number] ####[facility] ([facility])[address] [place] [address] ERYTHROCYTE MEAN CORPUSCULAR HEMOGLOBIN CONCENTRATION (G/DL) BY AUTOMATED 31.9 g/dL Low 32.0-35.0 [facility] Comment on above: Performed By: #### L [id number] ####[facility] ([facility])[address] [place] [address] Hematocrit (Bld) [Volume fraction] 40.7 % Normal 36.0-48.0 [facility] Comment on above: Performed By: #### L [id number] ####[facility] ([facility])[address] [place] [address] Hemoglobin (Bld) [Mass/Vol] 13.0 g/dL Normal 12.0-15.0 [facility] Comment on above: Performed By: #### L [id number] ####[facility] ([facility])[address] [place] [address] MCH (RBC) [Entitic mass] 28.4 pg Normal 27.0-33.0 [facility] Comment on above: Performed By: #### L [id number] ####[facility] ([facility])[address] [place] [address] MCV (RBC) [Entitic vol] 88.9 fL Normal 82.0-98.0 [facility] Comment on above: Performed By: #### L [id number] ####[facility] ([facility])[address] [place] [address] PLATELETS (10*3/UL) IN BLOOD AUTOMATED COUNT 107 10*3/uL Low 150-400 [facility] Comment on above: Performed By: #### L [id number] ####[facility] ([facility])[address] [place] [address] RBC (Bld) [#/Vol] 4.58 10*6/uL Normal 3.80-5.00 [facility] Comment on above: Performed By: #### L [id number] ####[facility] ([facility])[address] [place] [address] WBC (Bld) [#/Vol] 4.32 10*3/uL Normal 4.00-10.60 [facility] Comment on above: Performed By: #### L [id number] ####[facility] ([facility])[address] [place] [address] LIPID PANELon 05-11-2023 CHOL/HDL 4.8 mg/dL Normal [facility] Comment on above: Performed By: #### L [id number] #### [facility] ([facility]) [address] [place] [address] Cholesterol [Mass/Vol] 152 mg/dL Normal 120-200 [facility] Comment on above: Performed By: #### L [id number] #### [facility] ([facility]) [address] [facility] [place] [address] Magnesium [Mass/Vol] 77 mg/dL Normal 40-149 [facility] Comment on above: Result Comment: TRIG LYCERIDE REFERENCE RANGE: 20 YEARS AND OLDER CARDIOVASCULAR RISK LESS THAN 150 mg/dL LOW RISK 150 TO 199 mg/dL BORDERLINE RISK 200 mg/dL AND GREATER HIGH RISK Performed By: #### L [id number] #### [facility] ([facility]) [address] [facility] [place] [address] Magnesium [Mass/Vol] 105 mg/dL Normal 0-160 [facility] Comment on above: Performed By: #### L [id number] #### [facility] ([facility]) [address] [facility] [place] [address] Magnesium [Mass/Vol] 32 mg/dL Normal 23-92 [facility] Comment on above: Performed By: #### L [id number] #### [facility] ([facility]) [address] [facility] [place] [address] NON HDL CHOL. (LDL+VLDL) 120 Normal [facility] Comment on above: Performed By: #### L [id number] #### [facility] ([facility]) [address] [facility] [place] [address] TOTAL VLDL-C 15 mg/dL Normal 0-40 [facility] Comment on above: Performed By: #### L [id number] #### [facility] ([facility]) [address] [facility] [place] [address] MAGNESIUMon 05-11-2023 Magnesium [Mass/Vol] 1.7 mg/dL Low 1.9-2.7 [facility] Comment on above: Performed By: #### L [id number] #### [facility] ([facility]) [address] [place] [address] POCT GLUCOSE METER UNSOLICIT ED RESULTSon 05-11-2023 Glucose [Mass/Vol] 114 mg/dL High 70-105 [facility] Comment on above: Order Comment: Waive d Testing in the ED is performed under the ED CLIA certificate #[id number]. Result Comment: [email or web address] Performed By: #### L [id number] #### [facility] ([facility]) [address] [place] [address] 30on 05-10-2023 30 The patient is Moderately Stable - Low risk of patient condition declining or worsening The patient's goals for the shift include comfort The clinical goals for the shift include safety Normal [facility] 30 Problem: Pain - Adul t Goal: Verbalizes/displays adequate comfort level or baseline comfort level Outcome: Progressing Problem: Safety - Adult Goal: Free from fall injury Outcome: Progressing Flowsheets (Taken 05/10/2023 0848) Free from fall injury: Assess patient frequently for physical needs Identify cognitive and physical deficits and behaviors that affect risk of falls [place] fall precautions as indicated by assessment Educate [...] goals for the shift include safety Normal [facility] BASIC METABOLIC PANELon 04-20 Anion gap [Moles/Vol] 8 mmol/L Normal 7-20 [facility] Comment on above: Performed By: #### L [id number] #### [facility] ([facility]) [address] [place] [address] Calcium [Mass/Vol] 9.7 mg/dL Normal 8.6-10.3 [facility] Comment on above: Performed By: #### L [id number] #### [facility] ([facility]) [address] [address] Chloride [Moles/Vol] 99 mmol/L Normal 98-107 [facility] Comment on above: Performed By: #### L [id number] #### [facility] ([facility]) [address] [place] [address] CO2 [Moles/Vol] 33 mmol/L High 21-31 [facility] Comment on above: Performed By: #### L [id number] #### [facility] ([facility]) [address] [place] [address] Creatinine [Mass/Vol] 0.80 mg/dL Normal 0.60-1.20 [facility] Comment on above: Performed By: #### L [id number] #### [facility] ([facility]) [address] [place] [address] GLOMERULAR FILTRATION RATE ML/MIN/1.73 SQ M.PREDICTED 83.8 mL/min/1.73m*2 Normal >60.0 [facility] Comment on above: Result Comment: [facility]???s estimated glomerular filtration rate (eGFR) will [...] individuals. Performed By: #### L [id number] #### [facility] ([facility]) [address] [place] [address] Glucose [Mass/Vol] 110 mg/dL High 70-100 [facility] Comment on above: Performed By: #### L [id number] #### [facility] ([facility]) [address] [place] [address] Potassium [Moles/Vol] 3.8 mmol/L Normal 3.5-5.1 [facility] Comment on above: Performed By: #### L [id number] #### [facility] ([facility]) [address] [place] [address] Sodium [Moles/Vol] 136 mmol/L Normal 136-145 [facility] Comment on above: Performed By: #### L [id number] #### [facility] ([facility]) [address] [place] [address] Urea nitrogen [Mass/Vol] 18 mg/dL Normal 7-25 [facility] Comment on above: Performed By: #### L [id number] #### [facility] ([facility]) [address] [place] [address] UREA NITROGEN/CREATININE (MASS RATIO) IN SER/PLAS 22.5 Normal [facility] Comment on above: Performed By: #### L [id number] #### [facility] ([facility]) [address] [place] [address] MAGNESIUMon 05-10-2023 Magnesium [Mass/Vol] 1.7 mg/dL Low 1.9-2.7 [facility] Comment on above: Performed By: #### L [id number] ####[facility] ([facility])[address] [place] [address] POCT GLUCOSE METER UNSOLICIT ED RESULTSon 05-10-2023 Glucose [Mass/Vol] 119 mg/dL High 70-105 [facility] Comment on above: Order Comment: Waive d Testing in the ED is performed under the ED CLIA certificate #[id number]. Result Comment: [email or web address] Performed By: #### L [id number] #### [facility] ([facility]) [address] [place] [address] Glucose [Mass/Vol] 141 mg/dL High 70-105 [facility] Comment on above: Order Comment: Waive d Testing in the ED is performed under the ED CLIA certificate #[id number]. Result Comment: [email or web address] Performed By: #### L [id number] #### [facility] ([facility]) [address] [place] [address] Glucose [Mass/Vol] 162 mg/dL High 70-105 [facility] Comment on above: Order Comment: Waive d Testing in the ED is performed under the ED CLIA certificate #[id number]. Result Comment: [email or web address] Performed By: #### L [id number] #### [facility] ([facility]) [address] [place] [address] Glucose [Mass/Vol] 111 mg/dL High 70-105 [facility] Comment on above: Order Comment: Waive d Testing in the ED is performed under the ED CLIA certificate #[id number]. Result Comment: [email or web address] Performed By: #### L [id number] #### [facility] ([facility]) [address] [place] [address] 30on 05-09-2023 30 The patient is Moderately [...] medication and electrolyte replacement as ordered Normal [facility] 30 The patient is Moderately Stable [...] maintained within prescribed range Outcome: Progressing Normal [facility] BASIC METABOLIC PANELon - Anion gap [Moles/Vol] 10 mmol/L Normal 7-20 [facility] Comment on above: Performed By: #### L [id number] #### [facility] ([facility]) [address] [place] [address] Calcium [Mass/Vol] 9.4 mg/dL Normal 8.6-10.3 [facility] Comment on above: Performed By: #### L [id number] #### [facility] ([facility]) [address] [place] [address] Chloride [Moles/Vol] 98 mmol/L Normal 98-107 [facility] Comment on above: Performed By: #### L [id number] #### [facility] ([facility]) [address] [place] [address] CO2 [Moles/Vol] 31 mmol/L Normal 21-31 [facility] Comment on above: Performed By: #### L [id number] #### [facility] ([facility]) [address] [place] [address] Creatinine [Mass/Vol] 0.90 mg/dL Normal 0.60-1.20 [facility] Comment on above: Performed By: #### L [id number] #### [facility] ([facility]) [address] [place] [address] GLOMERULAR FILTRATION RATE ML/MIN/1.73 SQ M.PREDICTED 72.7 mL/min/1.73m*2 Normal >60.0 [facility] Comment on above: Result Comment: [facility]???s estimated glomerular filtration rate (eGFR) will [...] group of individuals. Performed By: #### L [id number] #### [facility] ([facility]) [address] [place] [address] Glucose [Mass/Vol] 102 mg/dL High 70-100 [facility] Comment on above: Performed By: #### L [id number] #### [facility] ([facility]) [address] [place] [address] Potassium [Moles/Vol] 4.0 mmol/L Normal 3.5-5.1 [facility] Comment on above: Performed By: #### L [id number] #### [facility] ([facility]) [address] [place] [address] Sodium [Moles/Vol] 135 mmol/L Low 136-145 [facility] Comment on above: Performed By: #### L [id number] #### [facility] ([facility]) [address] [place] [address] Urea nitrogen [Mass/Vol] 20 mg/dL Normal 7-25 [facility] Comment on above: Performed By: #### L [id number] #### [facility] [address] [place] [address] UREA NITROGEN/CREATININE (MASS RATIO) IN SER/PLAS 22.2 Normal [facility] Comment on above: Performed By: #### L [id number] #### [facility] ([facility]) [address] [place] [address] CBCon 05-09-2023 Erythrocyte distribution width (RBC) [Ratio] 15.7 % High 11.5-15.0 [facility] Comment on above: Performed By: #### L [id number] #### [facility] ([facility]) [address] [place] [address] ERYTHROCYTE MEAN CORPUSCULAR HEMOGLOBIN CONCENTRATION (G/DL) BY AUTOMATED 32.6 g/dL Normal 32.0-35.0 [facility] Comment on above: Performed By: #### L [id number] #### [facility] ([facility]) [address] [place] [address] Hematocrit (Bld) [Volume fraction] 39.6 % Normal 36.0-48.0 [facility] Comment on above: Performed By: #### L [id number] #### [facility] [address] [place] [address] Hemoglobin (Bld) [Mass/Vol] 12.9 g/dL Normal 12.0-15.0 [facility] Comment on above: Performed By: #### L [id number] #### [facility] [address] [place] [address] MCH (RBC) [Entitic mass] 28.8 pg Normal 27.0-33.0 [facility] Comment on above: Performed By: #### L [id number] #### [facility] ([facility]) [address] [place] [address] MCV (RBC) [Entitic vol] 88.4 fL Normal 82.0-98.0 [facility] Comment on above: Performed By: #### L [id number] #### [facility] ([facility]) [address] [place] [address] PLATELETS (10*3/UL) IN BLOOD AUTOMATED COUNT 124 10*3/uL Low 150-400 [facility] Comment on above: Performed By: #### L [id number] #### [facility] ([facility]) [address] [place] [address] RBC (Bld) [#/Vol] 4.48 10*6/uL Normal 3.80-5.00 [facility] Comment on above: Performed By: #### L [id number] #### [facility] ([facility]) [address] [place] [address] WBC (Bld) [#/Vol] 4.51 10*3/uL Normal 4.00-10.60 [facility] Comment on above: Performed By: #### L [id number] #### [facility] ([facility]) [address] [place] [address] MAGNESIUMon 05-09-2023 Magnesium [Mass/Vol] 1.9 mg/dL Normal 1.9-2.7 [facility] Comment on above: Performed By: #### L [id number] #### [facility] ([facility]) [address] [place] [address] POCT GLUCOSE METER UNSOLICIT ED RESULTSon 05-09-2023 Glucose [Mass/Vol] 145 mg/dL High 70-105 [facility] Comment on above: Order Comment: Waive d Testing in the ED is performed under the ED CLIA certificate #[id number]. Result Comment: [email or web address] Performed By: #### L [id number] #### [facility] ([facility]) [address] [place] [address] Glucose [Mass/Vol] 118 mg/dL High 70-105 [facility] Comment on above: Order Comment: Waive d Testing in the ED is performed under the ED CLIA certificate #[id number]. Result Comment: [email or web address] Performed By: #### L [id number] #### [facility] ([facility]) [address] [place] [address] Glucose [Mass/Vol] 152 mg/dL High 70-105 [facility] Comment on above: Order Comment: Waive d Testing in the ED is performed under the ED CLIA certificate #[id number]. Result Comment: [email or web address] Performed By: #### L [id number] #### [facility] ([facility]) [address] [place] [address] Glucose [Mass/Vol] 105 mg/dL Normal 70-105 [facility] Comment on above: Order Comment: Waive d Testing in the ED is performed under the ED CLIA certificate #[id number]. Result Comment: [email or web address] Performed By: #### L [id number] #### [facility] ([facility]) [address] [place] [address] 30on 05-08-2023 30 The patient is Moderately Stable - Low risk of patient condition declining or worsening The patient's goals for the shift include comfort The clinical goals for the shift include safety Normal [facility] 30 The patient is Moderately Stable [...] and maintained or improved Outcome: Progressing Normal [facility] 30 The patient is Moderately Stable - Low risk of patient condition declining or worsening The patient's goals for the shift include comfort The clinical goals for the shift include safety Normal [facility] APTTon 05-08-2023 ACTIVATED PARTIAL THROMBOPLASTIN TIME IN PPP BY COAGULATION ASSAY 36.7 Seconds High 25.0-35.0 [facility] Comment on above: Result Comment: Clin ical significance of the APTT is questionable in the presence of heparin. Performed By: #### L [id number] #### [facility] ([facility]) [address] [place] [address] BASIC METABOLIC PANELon 04-20 Anion gap [Moles/Vol] 10 mmol/L Normal 7-20 [facility] Comment on above: Performed By: #### L [id number] ####[facility] ([facility])[address] [place] [address] Calcium [Mass/Vol] 9.9 mg/dL Normal 8.6-10.3 [facility] Comment on above: Performed By: #### L [id number] ####[facility] ([facility])[address] [place] [address] Chloride [Moles/Vol] 99 mmol/L Normal 98-107 [facility] Comment on above: Performed By: #### L [id number] ####[facility] ([facility] [place] [address] CO2 [Moles/Vol] 34 mmol/L High 21-31 [facility] Comment on above: Performed By: #### L [id number] ####[facility] ([facility] [place] [address] Creatinine [Mass/Vol] 0.90 mg/dL Normal 0.60-1.20 [facility] Comment on above: Performed By: #### L [id number] ####[facility] ([facility])[address] [place] [address] GLOMERULAR FILTRATION RATE ML/MIN/1.73 SQ M.PREDICTED 72.7 mL/min/1.73m*2 Normal >60.0 [facility] Comment on above: Result Comment: [facility]???s estimated glomerular filtration rate (eGFR) will [...] of individuals. Performed By: #### L [id number] ####[facility] ([facility])[address] [place] [address] Glucose [Mass/Vol] 94 mg/dL Normal 70-100 [facility] Comment on above: Performed By: #### L [id number] ####[facility] ([facility])[address] [place] [address] Potassium [Moles/Vol] 3.5 mmol/L Normal 3.5-5.1 [facility] Comment on above: Performed By: #### L [id number] ####[facility] ([facility] [place] [address] Sodium [Moles/Vol] 139 mmol/L Normal 136-145 [facility] Comment on above: Performed By: #### L [id number] ####[facility] ([facility])[address] [place] [address] Urea nitrogen [Mass/Vol] 18 mg/dL Normal 7-25 [facility] Comment on above: Performed By: #### L [id number] ####[facility] ([facility] [place] [address] UREA NITROGEN/CREATININE (MASS RATIO) IN SER/PLAS 20.0 Normal [facility] Comment on above: Performed By: #### L [id number] ####[facility] ([facility])[address] [place] [address] MAGNESIUMon 05-08-2023 Magnesium [Mass/Vol] 1.3 mg/dL Low 1.9-2.7 [facility] Comment on above: Performed By: #### L [id number] ####[facility] ([facility])[address] [place] [address] POCT GLUCOSE METER UNSOLICIT ED RESULTSon 05-08-2023 Glucose [Mass/Vol] 121 mg/dL High 70-105 [facility] Comment on above: Order Comment: Waive d Testing in the ED is performed under the ED CLIA certificate #[id number]. Result Comment: [email or web address] Performed By: #### L [id number] #### [facility] ([facility]) [address] [place] [address] Glucose [Mass/Vol] 110 mg/dL High 70-105 [facility] Comment on above: Order Comment: Waive d Testing in the ED is performed under the ED CLIA certificate #[id number]. Result Comment: [email or web address] Performed By: #### L [id number] ####[facility] ([facility])[address] [place] [address] Glucose [Mass/Vol] 150 mg/dL High 70-105 [facility] Comment on above: Order Comment: Waive d Testing in the ED is performed under the ED CLIA certificate #[id number]. Result Comment: [email or web address] Performed By: #### L [id number] ####[facility] ([facility])[address] [place] [address] Glucose [Mass/Vol] 118 mg/dL High 70-105 [facility] Comment on above: Order Comment: Waive d Testing in the ED is performed under the ED CLIA certificate #[id number]. Result Comment: [email or web address] Performed By: #### L [id number] ####[facility] ([facility])[address] [place] [address] 30on 05-07-2023 30 Problem: Pain - Adul [...] shift include cardiac cath without complications Normal [facility] APTTon 05-07-2023 ACTIVATED PARTIAL THROMBOPLASTIN TIME IN PPP BY COAGULATION ASSAY 123.2 Seconds High 25.0-35.0 [facility] Comment on above: Order Comment: Check aPTT every 6 hours while on heparin infusion, or per protocol. Result Comment: Clin ical significance of the APTT is questionable in the presence of heparin. Performed By: #### L [id number] #### [facility] ([facility]) [address] [place] [address] ACTIVATED PARTIAL THROMBOPLASTIN TIME IN PPP BY COAGULATION ASSAY 106.0 Seconds High 25.0-35.0 [facility] Comment on above: Order Comment: Check aPTT every 6 hours while on heparin infusion, or per protocol. Result Comment: Clin ical significance of the APTT is questionable in the presence of heparin. Performed By: #### L [id number] ####[facility] ([facility])[address] [place] [address] BASIC METABOLIC PANELon 04-19 Anion gap [Moles/Vol] 11 mmol/L Normal 7-20 [facility] Comment on above: Performed By: #### L [id number] ####[facility] ([facility])[address] [place] [address] Calcium [Mass/Vol] 9.7 mg/dL Normal 8.6-10.3 [facility] Comment on above: Performed By: #### L [id number] ####[facility] ([facility])[address] [place] [address] Chloride [Moles/Vol] 98 mmol/L Normal 98-107 [facility] Comment on above: Performed By: #### L [id number] ####[facility] ([facility])[address] [place] [address] CO2 [Moles/Vol] 32 mmol/L High 21-31 [facility] Comment on above: Performed By: #### L [id number] ####[facility] ([facility])[address] [place] [address] Creatinine [Mass/Vol] 0.86 mg/dL Normal 0.60-1.20 [facility] Comment on above: Performed By: #### L [id number] ####[facility] ([facility])[address] [place] [address] GLOMERULAR FILTRATION RATE ML/MIN/1.73 SQ M.PREDICTED 76.8 mL/min/1.73m*2 Normal >60.0 [facility] Comment on above: Result Comment: [facility]???s estimated glomerular filtration rate (eGFR) will [...] of individuals. Performed By: #### L [id number] ####[facility] ([facility])[address] [place] [address] Glucose [Mass/Vol] 110 mg/dL High 70-100 [facility] Comment on above: Performed By: #### L [id number] ####[facility] ([facility])[address] [place] [address] Potassium [Moles/Vol] 3.4 mmol/L Low 3.5-5.1 [facility] Comment on above: Performed By: #### L [id number] ####[facility] ([facility])[address] [place] [address] Sodium [Moles/Vol] 138 mmol/L Normal 136-145 [facility] Comment on above: Performed By: #### L [id number] ####[facility] ([facility])[address] [place] [address] Urea nitrogen [Mass/Vol] 14 mg/dL Normal 7-25 [facility] Comment on above: Performed By: #### L [id number] ####[facility] ([facility])[address] [place] [address] UREA NITROGEN/CREATININE (MASS RATIO) IN SER/PLAS 16.3 Normal [facility] Comment on above: Performed By: #### L [id number] ####[facility] ([facility])[address] [place] [address] CBCon 05-07-2023 Erythrocyte distribution width (RBC) [Ratio] 15.7 % High 11.5-15.0 [facility] Comment on above: Performed By: #### L [id number] #### [facility] [address] [place] [address] ERYTHROCYTE MEAN CORPUSCULAR HEMOGLOBIN CONCENTRATION (G/DL) BY AUTOMATED 32.4 g/dL Normal 32.0-35.0 [facility] Comment on above: Performed By: #### L [id number] #### [facility] ([facility]) [address] [place] [address] Hematocrit (Bld) [Volume fraction] 38.3 % Normal 36.0-48.0 [facility] Comment on above: Performed By: #### L [id number] #### [facility] ([facility]) [address] [place] [address] Hemoglobin (Bld) [Mass/Vol] 12.4 g/dL Normal 12.0-15.0 [facility] Comment on above: Performed By: #### L [id number] #### [facility] ([facility]) [address] [place] [address] MCH (RBC) [Entitic mass] 28.6 pg Normal 27.0-33.0 [facility] Comment on above: Performed By: #### L [id number] #### [facility] ([facility]) [address] [place] [address] MCV (RBC) [Entitic vol] 88.2 fL Normal 82.0-98.0 [facility] Comment on above: Performed By: #### L [id number] #### [facility] ([facility]) [address] [place] [address] PLATELETS (10*3/UL) IN BLOOD AUTOMATED COUNT 121 10*3/uL Low 150-400 [facility] Comment on above: Performed By: #### L [id number] #### [facility] ([facility]) [address] [place] [address] RBC (Bld) [#/Vol] 4.34 10*6/uL Normal 3.80-5.00 [facility] Comment on above: Performed By: #### L [id number] #### [facility] ([facility]) [address] [place] [address] WBC (Bld) [#/Vol] 4.25 10*3/uL Normal 4.00-10.60 [facility] Comment on above: Performed By: #### L [id number] #### [facility] ([facility]) [address] [place] [address] HPon 05-07-2023 HP H&P reviewed. The patient was examined and there are no changes to the H&P. Regina Stark MD, MPH, [facility], [facility], [facility] Interventional Cardiology Pager Email: [email or web address] Normal [facility] POCT GLUCOSE METER UNSOLICIT ED RESULTSon 05-07-2023 Glucose [Mass/Vol] 125 mg/dL High 70-105 [facility] Comment on above: Order Comment: Waive d Testing in the ED is performed under the ED CLIA certificate #[id number]. Result Comment: [email or web address] Performed By: #### L [id number] ####[facility] ([facility])[address] [place] [address] Glucose [Mass/Vol] 101 mg/dL Normal 70-105 [facility] Comment on above: Order Comment: Waive d Testing in the ED is performed under the ED CLIA certificate #[id number]. Result Comment: [email or web address] Performed By: #### L [id number] ####[facility] ([facility])[address] [place] [address] 30on 05-06-2023 30 The patient is Moderately [...] Outcome: Progressing Flowsheets (Taken 05/06/2023799 by Denice Lala, NICHO) Free from fall injury: Assess patient frequently for physical needs Identify cognitive and physical deficits and behaviors that affect risk of falls [place] fall precautions as indicated by assessment Educate [...] and prevent overall improvement and discharge Normal [facility] 30 Daily Case Managemen t Update Multidisciplinary rounds have been completed. Barriers to Discharge: Pending clinical course and improvement in clinical condition. Patient admitted with chronic heart failure transferred from [facility]. Plan for coronary angiography tomorrow per Cardiology. Diet: Dietary Orders (From admission, onward) Start Ordered 05/07/23 0001 Diet NPO Diet effective midnight Comments: Sips with medications Question: Reason for NPO: Answer: Operation/Procedure 05/06/23 1502 05/06/23 1515 Special Kitchen Request Once Comments: Pls send for lunch tray now (pt did not like/eat any of the generated tray) chicken salad sandwich on wheat, peach bhutanese yogurt, diet cola 05/06/23 1516 01/17/24 2154 Regular Diet Diabetic Female (carb 45g/meal) Diet effective now Question Answer Comment Room Service? Yes Carbohydrate restriction: Diabetic Female (carb 45g/meal) 05/05/232152 Physician Expected Discharge Date: Discharge Delays: PT Six Click Score: 23 OT Six Click Score: PT Recommendations: OT Recommendations: New Consults: Normal [facility] 30 Problem: Pain - Adul t [...] and behaviors that affect risk of falls [place] fall precautions as indicated by assessment Educate [...] for the shift include hemodynamically stable Normal [facility] APTTon 05-06-2023 ACTIVATED PARTIAL THROMBOPLASTIN TIME IN PPP BY COAGULATION ASSAY 104.8 Seconds High 25.0-35.0 [facility] Comment on above: Order Comment: Check aPTT every 6 hours while on heparin infusion, or per protocol. Result Comment: Clin ical significance of the APTT is questionable in the presence of heparin. Performed By: #### L [id number] ####[facility] ([facility])[address] [place] [address] ACTIVATED PARTIAL THROMBOPLASTIN TIME IN PPP BY COAGULATION ASSAY 134.0 Seconds Critically high 25.0-35.0 [facility] Comment on above: Order Comment: Check aPTT every 6 hours while on heparin infusion, or per protocol. Result Comment: Clin ical significance of the APTT is questionable in the presence of heparin. Performed By: #### L [id number] #### [facility] ([facility]) [address] [place] [address] ACTIVATED PARTIAL THROMBOPLASTIN TIME IN PPP BY COAGULATION ASSAY 143.7 Seconds Critically high 25.0-35.0 [facility] Comment on above: Order Comment: Basel ine aPTT before initiating heparin infusion. Result Comment: Clin ical significance of the APTT is questionable in the presence of heparin. Performed By: #### L [id number] #### [facility] ([facility]) [address] [place] [address] CBCon 05-06-2023 Erythrocyte distribution width (RBC) [Ratio] 15.7 % High 11.5-15.0 [facility] Comment on above: Performed By: #### L [id number] #### [facility] ([facility]) [address] [place] [address] ERYTHROCYTE MEAN CORPUSCULAR HEMOGLOBIN CONCENTRATION (G/DL) BY AUTOMATED 32.6 g/dL Normal 32.0-35.0 [facility] Comment on above: Performed By: #### L [id number] #### [facility] ([facility]) [address] [place] [address] Hematocrit (Bld) [Volume fraction] 39.9 % Normal 36.0-48.0 [facility] Comment on above: Performed By: #### L [id number] #### [facility] ([facility]) [address] [place] [address] Hemoglobin (Bld) [Mass/Vol] 13.0 g/dL Normal 12.0-15.0 [facility] Comment on above: Performed By: #### L [id number] #### [facility] ([facility]) [address] [place] [address] MCH (RBC) [Entitic mass] 28.9 pg Normal 27.0-33.0 [facility] Comment on above: Performed By: #### L [id number] #### [facility] ([facility]) [address] [place] [address] MCV (RBC) [Entitic vol] 88.7 fL Normal 82.0-98.0 [facility] Comment on above: Performed By: #### L [id number] #### [facility] ([facility]) [address] [place] [address] PLATELETS (10*3/UL) IN BLOOD AUTOMATED COUNT 139 10*3/uL Low 150-400 [facility] Comment on above: Performed By: #### L [id number] #### [facility] ([facility]) [address] [place] [address] RBC (Bld) [#/Vol] 4.50 10*6/uL Normal 3.80-5.00 [facility] Comment on above: Performed By: #### L [id number] #### [facility] ([facility]) [address] [place] [address] WBC (Bld) [#/Vol] 5.73 10*3/uL Normal 4.00-10.60 [facility] Comment on above: Performed By: #### L [id number] #### [facility] ([facility]) [address] [place] [address] COMPREHENSIVE METABOLIC PANE Shamir 05-06-2023 Albumin [Mass/Vol] 3.6 g/dL Normal 3.5-5.7 [facility] Comment on above: Performed By: #### L [id number] ####[facility] ([facility])[address] [place] [address] ALP [Catalytic activity/Vol] 41 U/L Normal 34-104 [facility] Comment on above: Performed By: #### L [id number] ####[facility] ([facility])[address] [place] [address] ALT [Catalytic activity/Vol] 24 U/L Normal 7-52 [facility] Comment on above: Performed By: #### L [id number] ####[facility] ([facility])[address] [place] [address] Anion gap [Moles/Vol] 14 mmol/L Normal 7-20 [facility] Comment on above: Performed By: #### L [id number] ####[facility] ([facility])[address] [place] [address] AST [Catalytic activity/Vol] 42 U/L High 13-39 [facility] Comment on above: Performed By: #### L [id number] ####[facility] ([facility])[address] [place] [address] Bilirubin [Mass/Vol] 1.3 mg/dL High 0.3-1.0 [facility] Comment on above: Performed By: #### L [id number] ####[facility] ([facility])[address] [place] [address] Calcium [Mass/Vol] 9.7 mg/dL Normal 8.6-10.3 [facility] Comment on above: Performed By: #### L [id number] ####[facility] ([facility])[address] [place] [address] Chloride [Moles/Vol] 101 mmol/L Normal 98-107 [facility] Comment on above: Performed By: #### L [id number] ####[facility] ([facility])[address] [place] [address] CO2 [Moles/Vol] 27 mmol/L Normal 21-31 [facility] Comment on above: Performed By: #### L [id number] ####[facility] ([facility] [place] [address] Creatinine [Mass/Vol] 0.74 mg/dL Normal 0.60-1.20 [facility] Comment on above: Performed By: #### L [id number] ####[facility] ([facility])[address] [place] [address] GLOMERULAR FILTRATION RATE ML/MIN/1.73 SQ M.PREDICTED 92.0 mL/min/1.73m*2 Normal >60.0 [facility] Comment on above: Result Comment: [facility]???s estimated glomerular filtration rate (eGFR) will [...] of individuals. Performed By: #### L [id number] ####[facility] ([facility] [place] [address] Glucose [Mass/Vol] 101 mg/dL High 70-100 [facility] Comment on above: Performed By: #### L [id number] ####[facility] ([facility])[address] [place] [address] Potassium [Moles/Vol] 3.6 mmol/L Normal 3.5-5.1 [facility] Comment on above: Performed By: #### L [id number] ####[facility] ([facility] [place] [address] Protein [Mass/Vol] 7.2 g/dL Normal 6.0-8.3 [facility] Comment on above: Performed By: #### L [id number] ####[facility] ([facility])[address] [place] [address] Sodium [Moles/Vol] 138 mmol/L Normal 136-145 [facility] Comment on above: Performed By: #### L [id number] ####[facility] ([facility])[address] [place] [address] Urea nitrogen [Mass/Vol] 13 mg/dL Normal 7-25 [facility] Comment on above: Performed By: #### L [id number] ####[facility] ([facility])[address] [place] [address] UREA NITROGEN/CREATININE (MASS RATIO) IN SER/PLAS 17.6 Normal [facility] Comment on above: Performed By: #### L [id number] ####[facility] ([place])[address] [place] [address] CONSULTon 05-06-2023 CONSULT -- Attestation signed by [...] obstructive sleep apnea who was admitted to [facility] with sudden onset shortness of breath. Reports that she woke up suddenly from sleep feeling short of breath. She initially thought that this was a COVID infection. In the ED at [place], she was noted to be in atrial [...] branch block pattern. Patient was transferred to [facility] for further evaluation.Patient denies any history [...] Value Ventricular Rate 81 Atrial Rate 81 NH Interval 208 QRS DURATION 178 QT Interval 442 QTC CALCULATION(BAZETT) 513 P [place] 34 R-[place] -48 T Wave [place] 101 Impression Normal sinus rhythm Left axis deviation Left bundle branch block Abnormal ECG When compared with ECG of 13-FEB-2013 09:22, No significant change was found Confirmed by Jose Luis Cronin ([id number]) on 05/05/2023 9:15:31 PM Lab Results Component Value Date TROPONINI 0. (more content not included)... Normal [facility] HPon 05-06-2023 HP -- Attestation signed [...] obstructive sleep apnea who was admitted to [facility] with sudden onset shortness of breath. Reports that she woke up suddenly from sleep feeling short of breath. She initially thought that this was a COVID infection. In the ED at [place], she was noted to be in atrial [...] branch block pattern. Patient was transferred to [facility] for further evaluation.Patient denies any history [...] Value Ventricular Rate 81 Atrial Rate 81 NH Interval 208 QRS DURATION 178 QT Interval 442 QTC CALCULATION(BAZETT) 513 P [place] 34 R-[place] -48 T Wave [place] 101 Impression Normal sinus rhythm Left axis deviation Left bundle branch block Abnormal ECG When compared with ECG of 13-FEB-2013 09:22, No significant change was found Confirmed by Jose Luis Cronin ([id number]) on 05/05/2023 9:15:31 PM Lab Results Component Value Date TROPONINI 0. (more content not included)... Normal [facility] MAGNESIUMon 05-06-2023 Magnesium [Mass/Vol] 1.5 mg/dL Low 1.9-2.7 [facility] Comment on above: Performed By: #### L [id number] #### [facility] ([facility]) [address] [place] [address] PLATELET COUNTon 05-06-2023 PLATELETS (10*3/UL) IN BLOOD AUTOMATED COUNT 121 10*3/uL Low 150-400 [facility] Comment on above: Performed By: #### L [id number] #### [facility] ([facility]) [address] [place] [address] POCT GLUCOSE METER UNSOLICIT ED RESULTSon 05-06-2023 Glucose [Mass/Vol] 105 mg/dL Normal 70-105 [facility] Comment on above: Order Comment: Waive d Testing in the ED is performed under the ED CLIA certificate #[id number]. Result Comment: [email or web address] Performed By: #### L [id number] ####[facility] ([facility])[address] [facility] [place] [address] Glucose [Mass/Vol] 116 mg/dL High 70-105 [facility] Comment on above: Order Comment: Waive d Testing in the ED is performed under the ED CLIA certificate #[id number]. Result Comment: [email or web address] Performed By: #### L [id number] #### [facility] ([facility]) [address] [place] [address] Glucose [Mass/Vol] 131 mg/dL High 70-105 [facility] Comment on above: Order Comment: Waive d Testing in the ED is performed under the ED CLIA certificate #[id number]. Result Comment: [email or web address] Performed By: #### L [id number] #### [facility] ([facility]) [address] [place] [address] Glucose [Mass/Vol] 100 mg/dL Normal 70-105 [facility] Comment on above: Order Comment: Waive d Testing in the ED is performed under the ED CLIA certificate #[id number]. Result Comment: [email or web address] Performed By: #### L [id number] ####[facility] ([facility])[address] [place] [address] T4, FREEon 05-06-2023 THYROXINE (T4) FREE (NG/DL) IN SER/PLAS 1.08 ng/dL Normal 0.71-1.85 [facility] Comment on above: Performed By: #### L [id number] ####[facility] ([facility])[address] [place] [address] TROPONIN Ion 05-06-2023 Troponin I.cardiac [Mass/Vol] 0.01 ng/mL Normal 0.00-0.04 [facility] Comment on above: Performed By: #### L [id number] ####[facility] ([facility])[address] [place] [address] TSH3 REFLEX TO FT4on 024 THYROTROPIN (MIU/L) IN SER/PLAS BY DETECTION LIMIT <= 0.05 MIU/L 5.84 mIU/L High 0.34-5.60 [facility] Comment on above: Performed By: #### L [id number] ####[facility] ([facility])[address] [place] [address] 30on 05-05-2023 30 The patient is Moderately [...] and behaviors that affect risk of falls [place] fall precautions as indicated by assessment Educate [...] and prevent overall improvement and discharge Normal [facility] B-TYPE NATRIURETIC PEPTIDEon 05-05-2023 Natriuretic peptide B (Bld) [Mass/Vol] 97 pg/mL Normal 0-100 [facility] Comment on above: Performed By: #### L [id number] #### [facility] ([facility]) [address] [place] [address] BASIC METABOLIC PANELon 04-19 Anion gap [Moles/Vol] 11 mmol/L Normal 7-20 [facility] Comment on above: Performed By: #### L [id number] #### [facility] ([facility]) [address] [place] [address] Calcium [Mass/Vol] 9.5 mg/dL Normal 8.6-10.3 [facility] Comment on above: Performed By: #### L [id number] #### [facility] ([facility]) [address] [place] [address] Chloride [Moles/Vol] 101 mmol/L Normal 98-107 [facility] Comment on above: Performed By: #### L [id number] #### [facility] ([facility]) [address] [place] [address] CO2 [Moles/Vol] 30 mmol/L Normal 21-31 [facility] Comment on above: Performed By: #### L [id number] #### [facility] ([facility]) [address] [place] [address] Creatinine [Mass/Vol] 0.69 mg/dL Normal 0.60-1.20 [facility] Comment on above: Performed By: #### L [id number] #### [facility] ([facility]) [address] [place] [address] GLOMERULAR FILTRATION RATE ML/MIN/1.73 SQ M.PREDICTED 98.7 mL/min/1.73m*2 Normal >60.0 [facility] Comment on above: Result Comment: [facility]???s estimated glomerular filtration rate (eGFR) will [...] individuals. Performed By: #### L [id number] #### [facility] ([facility]) [address] [place] [address] Glucose [Mass/Vol] 90 mg/dL Normal 70-100 [facility] Comment on above: Performed By: #### L [id number] #### [facility] ([facility]) [address] [place] [address] Potassium [Moles/Vol] 3.8 mmol/L Normal 3.5-5.1 [facility] Comment on above: Performed By: #### L [id number] #### [facility] ([facility]) [address] [place] [address] Sodium [Moles/Vol] 138 mmol/L Normal 136-145 [facility] Comment on above: Performed By: #### L [id number] #### [facility] ([facility]) [address] [place] [address] Urea nitrogen [Mass/Vol] 13 mg/dL Normal 7-25 [facility] Comment on above: Performed By: #### L [id number] #### [facility] ([facility]) [address] [place] [address] UREA NITROGEN/CREATININE (MASS RATIO) IN SER/PLAS 18.8 Normal [facility] Comment on above: Performed By: #### L [id number] #### [facility] ([facility]) [address] [place] [address] MAGNESIUMon 05-05-2023 Magnesium [Mass/Vol] 1.4 mg/dL Low 1.9-2.7 [facility] Comment on above: Performed By: #### L [id number] #### [facility] ([facility]) [address] [place] [address] POCT GLUCOSE METER UNSOLICIT ED RESULTSon 05-05-2023 Glucose [Mass/Vol] 87 mg/dL Normal 70-105 [facility] Comment on above: Order Comment: Waive d Testing in the ED is performed under the ED CLIA certificate #[id number]. Result Comment: [email or web address] Performed By: #### L [id number] #### [facility] ([facility]) [address] [place] [address] TROPONIN Ion 05-05-2023 Troponin I.cardiac [Mass/Vol] 0.03 ng/mL Normal 0.00-0.04 [facility] Comment on above: Performed By: #### L [id number] ####[facility] (BEAKER)[address] [place] [address] CBC AUTO DIFFon 02-21-2022 BASO # 0.0 103/ul Normal 0.0-0.1 [facility] Comment on above: Performed By: #### C BC #### [facility] [address] [place] [address] [address] Rivas Zhao Basophils/100 WBC (Bld) 0.7 % Normal 0.2-2.0 [facility] Comment on above: Performed By: #### C BC #### [facility] [address] [place] [address] Dr. Rivas Zhao EO # 0.2 103/ul Normal 0.0-0.7 [facility] Comment on above: Performed By: #### C BC #### [facility] [address] [place] [address] Dr. Rivas Zhao Eosinophils/100 WBC (Bld) 3.4 % Normal 0.9-7.0 [facility] Comment on above: Performed By: #### C BC #### [facility] [address] [place] [address] [address] Rivas Zhao Erythrocyte distribution width (RBC) [Ratio] 14.8 % Normal 11.0-15.0 [facility] Comment on above: Performed By: #### C BC #### [facility] [address] [place] [address] Dr. Rivas Zhao Hematocrit (Bld) [Volume fraction] 38.4 % Normal 36.0-48.0 [facility] Comment on above: Performed By: #### C BC #### [facility] [address] [place] [address] Dr. Rivas Zhao Hemoglobin (Bld) [Mass/Vol] 12.7 g/dL Normal 12.0-16.0 [facility] Comment on above: Performed By: #### C BC #### [facility] [address] [place] [address] Dr. Rivas Zhao IG # 0.01 10e3/ul Normal 0.00-0.03 [facility] Comment on above: Performed By: #### C BC #### [facility] [address] [place] [address] Dr. Rivas Zhao IG % 0.2 % Normal 0.0-0.5 [facility] Comment on above: Performed By: #### C BC #### [facility] [address] [place] [address] Dr. Rivas Zhao LYMPH # 1.5 103/ul Normal 1.2-3.8 [facility] Comment on above: Performed By: #### C BC #### [facility] [address] [place] [address] Dr. Rivas Zhao Lymphocytes/100 WBC (Bld) 34.9 % Normal 20.5-60.0 [facility] Comment on above: Performed By: #### C BC #### [facility] [address] [place] [address] Dr. Rivas Zhao MANUAL DIFF REQ NO Normal [facility] Comment on above: Performed By: #### C BC #### [facility] [address] [place] [address] Dr. Rivas Zhao MCH (RBC) [Entitic mass] 30.2 pg Normal 26.7-34.0 [facility] Comment on above: Performed By: #### C BC #### [facility] [address] [place] [address] Dr. Rivas Zhao MCHC (RBC) [Mass/Vol] 33.1 g/dL Normal 29.9-35.2 [facility] Comment on above: Performed By: #### C BC #### [facility] [address] [place] [address] Dr. Rivas Zhao MCV (RBC) [Entitic vol] 91.2 fL Normal 81.0-99.0 [facility] Comment on above: Performed By: #### C BC #### [facility] [address] [place] [address] Dr. Rivas Zhao MONO # 0.3 103/ul Normal 0.3-0.8 [facility] Comment on above: Performed By: #### C BC #### [facility] [address] [place] [address] Dr. Rivas hZao Monocytes/100 WBC (Bld) 5.9 % Normal 1.7-12.0 [facility] Comment on above: Performed By: #### C BC #### [facility] [address] [place] [address] Dr. Rivas Zhao NEUT # 2.4 103/ul Normal 1.4-6.5 [facility] Comment on above: Performed By: #### C BC #### [facility] [address] [place] [address] Dr. Rivas Zhoa Neutrophils/100 WBC (Bld) 54.9 % Normal 43.0-75.0 [facility] Comment on above: Performed By: #### C BC #### [facility] [address] [place] [address] Dr. Rivas Zhao Platelet mean volume (Bld) [Entitic vol] 11.9 fL Normal 9.5-13.5 [facility] Comment on above: Performed By: #### C BC #### [facility] [address] [place] [address] Dr. Rivas Zhao PLT 107 103/ul Critically low 150-450 [facility] Comment on above: Performed By: #### C BC #### [facility] [address] [place] [address] Dr. Rivas Zhao RBC 4.21 106/ul Normal 4.20-5.40 [facility] Comment on above: Performed By: #### C BC #### [facility] [address] [place] [address] Dr. Rivas Zhao WBC 4.4 103/ul Normal 4.0-11.0 [facility] Comment on above: Performed By: #### C BC #### [facility] [address] [place] [address] Dr. Rivas Zhao GLYCOHEMOGLOBIN A1Con 2021 ADA RECOMMENDATION SEE BELOW Normal [facility] Comment on above: Result Comment: ADA RECOMMENDED LIMIT 4.0 - 6.0 ADA THERAPEUTIC TARGET < 7.0 ACTION SUGGESTED > 7.0 Performed By: #### A 1C #### [facility] [address] [place] [address] Dr. Rivas Zhao Glucose [Mass/Vol] 117 mg/dL Normal [facility] Comment on above: Performed By: #### A 1C #### [facility] [address] [place] [address] [address] Rivas Zhao HbA1c (Bld) [Mass fraction] 5.7 % Normal 4.5-6.2 [facility] Comment on above: Performed By: #### A 1C #### [facility] [address] [place] [address] Dr. Rivas Zhao LIPID PROFILEon 02-21-2022 CHOL-HDL RATIO NORM SEE BELOW Normal [facility] Comment on above: Result Comment: 3.3 - 4.4 LOW RISK 4.4 - 7.1 AVERAGE RISK 7.1 - 11.0 MODERATE RISK >11.0 HIGH RISK Performed By: #### L IPID, CMP #### [facility] [address] [place] [address] Dr. Rivas Zhao Cholesterol [Mass/Vol] 160 mg/dL Normal <=200 [facility] Comment on above: Performed By: #### L IPID, CMP #### [facility] [address] [address] [address] Rivas Zhao Cholesterol in HDL [Mass/Vol] 49 mg/dL Normal 40-60 [facility] Comment on above: Performed By: #### L IPID, CMP #### [facility] [address] [address] [address] Rivas Zhao Cholesterol in LDL [Mass/Vol] 96.0 mg/dL Normal [facility] Comment on above: Performed By: #### L IPID, CMP #### [facility] [address] [place] [address] Dr. Rivas Zhao Cholesterol.total/Ch olesterol in HDL [Mass ratio] 3.3 {ratio} Normal [facility] Comment on above: Performed By: #### L IPID, CMP #### [facility] [address] [address] [address] Rivas Zhao HDL NORMAL > or = 60 mg/dl - LO W CARDIOVASCULAR RISK <40 mg/dl - HIGH CARDIOVASCULAR RISK Normal [facility] Comment on above: Performed By: #### L IPID, CMP #### [facility] [address] [address] [address] Rivas Zhao LDL CALC NORMAL SEE BELOW Normal [facility] Comment on above: Result Comment: <100 mg/dl OPTIMAL 100 - 129 mg/dl NEAR OR ABOVE OPTIMAL 130 - 159 mg/dl BORDERLINE HIGH 160 - 189 mg/dl HIGH >190 mg/dl VERY HIGH Performed By: #### L IPID, CMP #### [facility] [address] [address] [address] Rivas Zhao Triglyceride [Mass/Vol] 75 mg/dL Normal <=150 [facility] Comment on above: Performed By: #### L IPID, CMP #### [facility] [address] [place] [address] [address] Rivas Zhao VLDL CALC 15.0 mg/dL Normal [facility] Comment on above: Performed By: #### L IPID, CMP #### [facility] [address] [address] [address] Rivas Zhao PROF 14(COMP METB)on 022 Albumin [Mass/Vol] 3.0 g/dL Critically low 3.4-5.0 [facility] Comment on above: Performed By: #### L IPID, CMP #### [facility] [address] [place] [address] [address] Rivas Zhao Albumin/Globulin [Mass ratio] 0.6 {ratio} Normal [facility] Comment on above: Performed By: #### L IPID, CMP #### [facility] [address] [place] [address] [address] Rivas Zhao ALP [Catalytic activity/Vol] 74 U/L Normal 46-116 [facility] Comment on above: Performed By: #### L IPID, CMP #### [facility] [address] [address] [address] Rivas Zhao ALT [Catalytic activity/Vol] 59 U/L Normal 14-59 [facility] Comment on above: Performed By: #### L IPID, CMP #### [facility] [address] [address] [address] Rivas Zhao Anion gap [Moles/Vol] 9.2 mmol/L Normal [facility] Comment on above: Performed By: #### L IPID, CMP #### [facility] [address] [address] [address] Rivas Zhao AST [Catalytic activity/Vol] 65 U/L Critically high 15-37 [facility] Comment on above: Performed By: #### L IPID, CMP #### [facility] [address] [place] [address] Dr. Rivas Zhao Bilirubin [Mass/Vol] 1.1 mg/dL Critically high 0.2-1.0 [facility] Comment on above: Performed By: #### L IPID, CMP #### [facility] [address] [address] [address] Rivas Zhao Calcium [Mass/Vol] 8.8 mg/dL Normal 8.5-10.1 [facility] Comment on above: Performed By: #### L IPID, CMP #### [facility] [address] [place] [address] Dr. Rivas Zhao Chloride [Moles/Vol] 102 mmol/L Normal 98-107 [facility] Comment on above: Performed By: #### L IPID, CMP #### [facility] [address] [address] [address] Rivas Zhao CO2 [Moles/Vol] 32.5 mmol/L Critically high 21.0-32.0 [facility] Comment on above: Performed By: #### L IPID, CMP #### [facility] [address] [address] [address] Rivas Zhao Creatinine [Mass/Vol] 0.76 mg/dL Normal 0.55-1.02 [facility] Comment on above: Performed By: #### L IPID, CMP #### [facility] [address] [address] [address] Rivas Zhao EGFR-AF SLOVENIAN >60 Normal >=60 [facility] Comment on above: Performed By: #### L IPID, CMP #### [facility] [address] [address] [address] Rivas Zhao EGFR-NON AF SLOVENIAN >60 Normal >=60 [facility] Comment on above: Performed By: #### L IPID, CMP #### [facility] [address] [address] [address] Rivas Zhao Globulin (S) [Mass/Vol] 4.7 g/dL Normal [facility] Comment on above: Performed By: #### L IPID, CMP #### [facility] [address] [address] [address] Rivas Zhao Glucose [Mass/Vol] 109 mg/dL Critically high 74-106 [facility] Comment on above: Performed By: #### L IPID, CMP #### [facility] [address] [address] [address] Rivas Zhao Potassium [Moles/Vol] 3.7 mmol/L Normal 3.5-5.1 [facility] Comment on above: Performed By: #### L IPID, CMP #### [facility] [address] [address] [address] Rivas Zhao Protein [Mass/Vol] 7.7 g/dL Normal 6.4-8.2 [facility] Comment on above: Performed By: #### L IPID, CMP #### [facility] [address] [address] [address] Rivas Zhao Sodium [Moles/Vol] 140 mmol/L Normal 136-145 [facility] Comment on above: Performed By: #### L IPID, CMP #### [facility] [address] [address] [address] Rivas Zhao Urea nitrogen [Mass/Vol] 12.0 mg/dL Normal 7.0-18.0 [facility] Comment on above: Performed By: #### L IPID, CMP #### [facility] [address] [place], [place] [address] Dr. Rivas Zhao Urea nitrogen/Creatinine [Mass ratio] 15.8 mg/mg Normal [facility] Comment on above: Performed By: #### L IPID, CMP #### [facility] [address] [place], [place] [address] Dr. Rivas Zhao Patient Correspondenceon Patient Correspondence [id number]#1.00 CD:[address] [facility] Physician Referral [id number]#1.00 CD:[address] [facility] Patient Correspondence [id number]#1.00 CD:[address] [facility] Physician Referralon 022 Physician Referral [id number]#1.0 0CD:[address] [facility] MG MAMM DIAGNOSTIC 3D GREG CA Don 05-16-2021 MG MAMM DIAGNOSTIC 3D GREG CAD Patient: NGOZI CARDOSO Exam Date: 05/16/2021 : 1960 Gender:F Ordering : DR FOREIGN BENJAMIN M.D. Admission #: [id number] Family : Order #: [id number] CLICK HERE TO VIEW EXAM RADIOLOGY REPORT [...] breast cancer at age 59. LOCATION: [facility] BREAST COMPOSITION: Scattered areas fibroglandular density. [...] M.D. on 05/16/2021 at 15:27 Normal [facility] US BREAST GREG LIMITEDon - US BREAST GREG LIMITED Patient: NGOZI CARDOSO Exam Date: 05/16/2021 : 1960 Gender:F Ordering : DR FOREIGN BENJAMIN M.D. Admission #: [id number] Family : Order #: [id number] CLICK HERE TO VIEW EXAM RADIOLOGY REPORT [...] breast cancer at age 59. LOCATION: [facility] BREAST COMPOSITION: Scattered areas fibroglandular density. [...] M.D. on 05/16/2021 at 15:27 Normal [facility] TRANSGLUTAMINASE IGAon 04-02 t-Transglutaminase (tTG) IgA <2 Normal 0-3 [facility] Comment on above: Result Comment: Nega tive 0 - 3 Weak Positive 4 - 10 Positive >10 . Tissue Transglutaminase (tTG) has been identified as the endomysial antigen. Studies have demonstr- ated that endomysial IgA antibodies have over 99% specificity for gluten sensitive enteropathy. Performed By: #### T FRANCESCA #### [facility] [address] [place] [address] Dr. Rivas Zhao CBC AUTO DIFFon 03-31-2021 BASO # 0.1 103/ul Normal 0.0-0.1 [facility] Comment on above: Performed By: #### C BC #### [facility] [address] [place] [address] Dr. Rivas Zhao Basophils/100 WBC (Bld) 0.9 % Normal 0.2-2.0 [facility] Comment on above: Performed By: #### C BC #### [facility] [address] [place] [address] Dr. Rivas Zhao EO # 0.2 103/ul Normal 0.0-0.7 [facility] Comment on above: Performed By: #### C BC #### [facility] [address] [place] [address] Dr. Rivas Zhao Eosinophils/100 WBC (Bld) 2.3 % Normal 0.9-7.0 [facility] Comment on above: Performed By: #### C BC #### [facility] [address] [place] [address] Dr. Rivas Zhao Erythrocyte distribution width (RBC) [Ratio] 14.5 % Normal 11.0-15.0 [facility] Comment on above: Performed By: #### C BC #### [facility] [address] [place] [address] Dr. Rivas Zhao Hematocrit (Bld) [Volume fraction] 39.9 % Normal 36.0-48.0 [facility] Comment on above: Performed By: #### C BC #### [facility] [address] [place] [address] Dr. Rivas Zhao Hemoglobin (Bld) [Mass/Vol] 13.1 g/dL Normal 12.0-16.0 [facility] Comment on above: Performed By: #### C BC #### [facility] [address] [place] [address] Dr. Rivas Zhao IG # 0.02 10e3/ul Normal 0.00-0.03 [facility] Comment on above: Performed By: #### C BC #### [facility] [address] [place] [address] Dr. Rivas Zhao IG % 0.3 % Normal 0.0-0.5 [facility] Comment on above: Performed By: #### C BC #### [facility] [address] [place] [address] Dr. Rivas Zhao LYMPH # 2.2 103/ul Normal 1.2-3.8 [facility] Comment on above: Performed By: #### C BC #### [facility] [address] [place] [address] Dr. Rivas Zhao Lymphocytes/100 WBC (Bld) 31.8 % Normal 20.5-60.0 [facility] Comment on above: Performed By: #### C BC #### [facility] [address] [place] [address] Dr. Rivas Zhao MANUAL DIFF REQ NO Normal [facility] Comment on above: Performed By: #### C BC #### [facility] [address] [place] [address] Dr. Rivas Zhao MCH (RBC) [Entitic mass] 30.2 pg Normal 26.7-34.0 [facility] Comment on above: Performed By: #### C BC #### [facility] [address] [place] [address] Dr. Rivas Zhao MCHC (RBC) [Mass/Vol] 32.8 g/dL Normal 29.9-35.2 [facility] Comment on above: Performed By: #### C BC #### [facility] [address] [place] [address] Dr. Rivas Zhao MCV (RBC) [Entitic vol] 91.9 fL Normal 81.0-99.0 [facility] Comment on above: Performed By: #### C BC #### [facility] [address] [place] [address] Dr. Rivas Zhao MONO # 0.5 103/ul Normal 0.3-0.8 [facility] Comment on above: Performed By: #### C BC #### [facility] [address] [place] [address] Dr. Rivas Zhao Monocytes/100 WBC (Bld) 7.2 % Normal 1.7-12.0 [facility] Comment on above: Performed By: #### C BC #### [facility] [address] [place] [address] Dr. Rivas Zhao NEUT # 4.0 103/ul Normal 1.4-6.5 [facility] Comment on above: Performed By: #### C BC #### [facility] [address] [place] [address] Dr. Rivas Zhao Neutrophils/100 WBC (Bld) 57.5 % Normal 43.0-75.0 [facility] Comment on above: Performed By: #### C BC #### [facility] [address] [place] [address] Dr. Rivas Zhao Platelet mean volume (Bld) [Entitic vol] 11.8 fL Normal 9.5-13.5 [facility] Comment on above: Performed By: #### C BC #### [facility] [address] [place] [address] Dr. Rivas Zhao PLT 139 103/ul Critically low 150-450 [facility] Comment on above: Performed By: #### C BC #### [facility] [address] [place] [address] Dr. Rivas Zhao RBC 4.34 106/ul Normal 4.20-5.40 [facility] Comment on above: Performed By: #### C BC #### [facility] [address] [place] [address] Dr. Rivas Zhao WBC 7.0 103/ul Normal 4.0-11.0 [facility] Comment on above: Performed By: #### C BC #### [facility] [address] [place] [address] Dr. Rivas Zhao LIPASEon 03-31-2021 Lipase [Catalytic activity/Vol] 197.0 U/L Normal 23.0-300.0 [facility] Comment on above: Performed By: #### C MP, LIPA #### [facility] [address] [place] [address] Dr. Rivas Zhao PROF 14(COMP METB)on 021 Albumin [Mass/Vol] 3.6 g/dL Normal 3.5-5.0 [facility] Comment on above: Performed By: #### C MP, LIPA #### [facility] [address] [place] [address] Dr. Rivas Zhao Albumin/Globulin [Mass ratio] 0.9 {ratio} Normal [facility] Comment on above: Performed By: #### C MP, LIPA #### [facility] [address] [place] [address] Dr. Rivas Zhao ALP [Catalytic activity/Vol] 46 U/L Normal 38-126 [facility] Comment on above: Performed By: #### C MP, LIPA #### [facility] [address] [place] [address] Dr. Rivas Zhao ALT [Catalytic activity/Vol] 77 U/L Critically high 9-52 [facility] Comment on above: Performed By: #### C MP, LIPA #### [facility] [address] [place] [address] Dr. Rivas Zhao Anion gap [Moles/Vol] 13.9 mmol/L Normal [facility] Comment on above: Performed By: #### C MP, LIPA #### [facility] [address] [place] [address] Dr. Rivas Zhao AST [Catalytic activity/Vol] 67 U/L Critically high 14-36 [facility] Comment on above: Performed By: #### C MP, LIPA #### [facility] [address] [place] [address] Dr. Rivas Zhao Bilirubin [Mass/Vol] 0.7 mg/dL Normal 0.2-1.3 [facility] Comment on above: Performed By: #### C MP, LIPA #### [facility] [address] [place] [address] Dr. Rivas Zhao Calcium [Mass/Vol] 9.8 mg/dL Normal 8.4-10.2 [facility] Comment on above: Performed By: #### C MP, LIPA #### [facility] [address] [place] [address] Dr. Rivas Zhao Chloride [Moles/Vol] 103 mmol/L Normal 98-107 [facility] Comment on above: Performed By: #### C MP, LIPA #### [facility] [address] [place] [address] Dr. Rivas Zhao CO2 [Moles/Vol] 31.0 mmol/L Critically high 22.0-30.0 [facility] Comment on above: Performed By: #### C MP, LIPA #### [facility] [address] [place] [address] Dr. Rivas Zhao Creatinine [Mass/Vol] 0.95 mg/dL Normal 0.52-1.04 [facility] Comment on above: Performed By: #### C MP, LIPA #### [facility] [address] [address] [address] Rivas Zhao EGFR-AF SLOVENIAN 60 mL/min/1.73m2 Normal >=60 [facility] Comment on above: Performed By: #### C MP, LIPA #### [facility] [address] [address] [address] Rivas Zhao EGFR-NON AF SLOVENIAN =60 Normal >=60 [facility] Comment on above: Performed By: #### C MP, LIPA #### [facility] [address] [address] [address] Rivas Zhao Globulin (S) [Mass/Vol] 4.2 g/dL Normal [facility] Comment on above: Performed By: #### C MP, LIPA #### [facility] [address] [place] [address] Dr. Rivas Zhao Glucose [Mass/Vol] 95 mg/dL Normal 74-106 [facility] Comment on above: Performed By: #### C MP, LIPA #### [facility] [address] [address] [address] Rivas Zhao Potassium [Moles/Vol] 3.9 mmol/L Normal 3.4-5.0 [facility] Comment on above: Performed By: #### C MP, LIPA #### [facility] [address] [place] [address] Dr. Rivas Zhao Protein [Mass/Vol] 7.8 g/dL Normal 6.1-8.2 [facility] Comment on above: Performed By: #### C MP, LIPA #### [facility] [address] [place] [address] Dr. Rivas Zhao Sodium [Moles/Vol] 144 mmol/L Normal 137-145 [facility] Comment on above: Performed By: #### C MP, LIPA #### [facility] [address] [place] [address] Dr. Rivas Zhao Urea nitrogen [Mass/Vol] 20.0 mg/dL Critically high 7.0-17.0 [facility] Comment on above: Performed By: #### C MP, LIPA #### [facility] [address] [place], [place] [address] Dr. Rivas Zhao Urea nitrogen/Creatinine [Mass ratio] 21.1 mg/mg Normal [facility] Comment on above: Performed By: #### C SONIA PYLE #### [facility] [address] [place], [place] [address] Dr. Rivas Zhao XR ribs RT min 3V w CXR1V*on 06-09-2020 XR ribs RT min 3V w CXR1V* [facility] [place] [address] [place] [address] XRay Report Signed Patient: Ngozi Cardoso MR#: [id number] : 1960 Acct:[id number] Age/Sex: 59 / F ADM Date: 06/09/20 Loc: XDUCLY Room: Type: [facility] Attending Dr: Janene Munguia APRN, DOORSHAKER-C Ordering Provider: Janene Munguia APRN Date of [...] Garcia Jr., M.D.06/09/2020 11:19 AM Dictation Location: [address] [place] [address] Transcribed By: [facility] 06/09/201118 Dictated By: Que Garcia Jr, MD 06/09/201111 Signed By: 02/21/21 1119 [facility] Vital Signs Date Time Vital Sign Value Performing Clinician Facility 08-12-2023 11:04-0400 Body height 165.1 cm [facility] [place] [facility] 08-12-2023 11:04-0400 Body mass index (BMI) [Ratio] 55.2 kg/m2 [facility] 08-12-2023 11:04-0400 Body weight 150.59 kg [facility] [place] [facility] 08-12-2023 11:04-0400 Diastolic blood pressure 67 mm[Hg] [facility] 08-12-2023 11:04-0400 Heart rate 67 /min [facility] 08-12-2023 11:04-0400 Systolic blood pressure 104 mm[Hg] [facility] 06-21-2023 15:41-0500 Body height 165.1 cm [facility] 06-21-2023 15:41-0500 Body mass index (BMI) [Ratio] 54.1 kg/m2 [facility] 06-21-2023 15:41-0500 Body weight 147.64 kg [facility] 06-21-2023 15:41-0500 Diastolic blood pressure 60 mm[Hg] [facility] 06-21-2023 15:41-0500 Heart rate 67 /min [facility] 06-21-2023 15:41-0500 SaO2% (BldA) [Mass fraction] 97 % [facility] 06-21-2023 15:41-0500 Systolic blood pressure 108 mm[Hg] [facility] 05-14-2023 09:30-0500 Body height 165.1 cm [facility] 05-14-2023 09:30-0500 Body mass index (BMI) [Ratio] 57.24 kg/m2 [facility] 05-14-2023 09:30-0500 Body weight 156.04 kg [facility] Other [facility] 05-14-2023 09:30-0500 Diastolic blood pressure 69 mm[Hg] [facility] Other [facility] 05-14-2023 09:30-0500 SaO2% (BldA) [Mass fraction] 97 % [facility] 05-14-2023 09:30-0500 Systolic blood pressure 105 mm[Hg] [facility] 03-05-2023 16:00-0500 Body height 165.1 cm Etta Gordon Other [facility] 03-05-2023 16:00-0500 Body mass index (BMI) [Ratio] 60.27 kg/m2 Etta Gordon Other [facility] 03-05-2023 16:00-0500 Body temperature 98.9 [degF] Etta Gordon Other [facility] 03-05-2023 16:00-0500 Body weight 164.29 kg Etta Gordon Other [facility] 03-05-2023 16:00-0500 Diastolic blood pressure 77 mm[Hg] Etta Gordon Other [facility] 03-05-2023 16:00-0500 Respiratory rate 18 /min Etta Gordon Other [facility] 03-05-2023 16:00-0500 SaO2% (BldA) [Mass fraction] 95 % Etta Gordon Other [facility] 03-05-2023 16:00-0500 Systolic blood pressure 125 mm[Hg] Etta Gordon Other [facility] Other Encounters Encounter Date Encounter Type Care Provider Facility Start: 08-12-2023 End: 08-12[facility] Start: 08-12-2023 End: 08-12-2023 Patient encounter procedure [facility] Physician [facility] Work Phone: Start: 07-12-2023 End: 07-12-2023 ambulatory [facility] Start: 07-09-2023 Non-patient / Non-visit [facility] [employer] Work Phone: Start: 06-30-2023 End: 06-30-2023 ambulatory [facility] Start: 06-21-2023 End: 06-21-2023 Patient encounter procedure [facility] Work Phone: Start: 06-18-2023 End: 06-18-2023 ambulatory [facility] Start: 06-08-2023 End: 06-08-2023 ambulatory [facility] Start: 05-31-2023 End: 05-31-2023 ambulatory Etta Gordon Other [facility] Other Start: 05-31-2023 Telephone encounter Etta Gordon [facility] Start: 05-21-2023 End: 05-21-2023 ambulatory [facility] Other [facility] Other Start: 05-21-2023 Telephone encounter Foreign [facility] Start: 05-18-2023 Patient encounter procedure [facility] Physician [facility] Start: 05-17-2023 End: 05-17-2023 ambulatory AB [facility] Start: 05-14-2023 End: 05-14-2023 ambulatory Foreign [facility] Other [facility] Other Start: 05-14-2023 Office outpatient vi sit 25 minutes Foreign [facility] Start: 05-06-2023 Evaluation and management of inpatient SEBAS [facility] Start: 05-05-2023 Evaluation and management of inpatient SEBAS [facility] Start: 05-05-2023 End: 05-11-2023 Evaluation and management of inpatient ADENIKE [facility] Start: 04-30-2023 End: 04-30-2023 ambulatory [facility] Other [facility] Start: 04-30-2023 Telephone encounter Foreign [facility] Start: 04-01-2023 End: 04-01-2023 ambulatory [facility] Other [facility] Start: 04-01-2023 Telephone encounter Foreign Benjamin [facility] Start: 03-05-2023 End: 03-05-2023 ambulatory Etta Gordno Other [facility] Start: 03-05-2023 Office outpatient vi sit 25 minutes Etta Gordon [facility] Start: 02-26-2022 Encounter for genera l adult medical examination without abnormal findings DR FOREIGN BENJAMIN [facility] Start: 02-21-2022 End: 02-22-[address] FOREIGN BENJAMIN Facility:[facility] Start: 02-21-2022 End: 02-22-2022 Encounter for general adult medical examination without abnormal findings DR FOREIGN BENJAMIN Facility:[facility] Start: 01-20-2022 Adult health examination Etta Gordon Other [facility] Start: 05-16-2021 End: 05-17-[address] [...] Detail Author MG Breast - bilateral Screening [facility] Payers Date Payer Category Payer Unknown [id number] 1960 Unknown [id number] 1960 Unknown [id number] [id number] 1960 Unknown [id number] [id number] [id number] 1960 Unknown [id number] 1958 Unknown [id number] Self-pay Self Pay [id number] Social History Date Type Detail Facility Unknown if ever smoked [facility] Other Sex Assigned At Sex Assigned At Bir th [facility] Other Start: 07-07-2018 Tobacco smoking status NHIS Never smoked tobacco (finding) [facility] Start: 1960 Sex Assigned At Female [facility] Medical Equipment Procedure Code Equipment Code Equipment [...] Type Note Facility 08-12-2023 Note Cardiovascular Medic [facility] SUBJECTIVE Chief Complaint Patient presents with Atrial [...] diabetes obstructive sleep apnea was [facility] with shortness of breath and was [...] CHF (congestive heart failure) (CMS/HCC) Diabetes mellitus ([facility]/HCC) Hypertension Family History Problem Relation Name Age [...] Rate and Rhythm: (more content not included)... [facility] 08-12-2023 Note Patient here for fol [...] All other systems reviewed and are negative. [facility] 07-12-2023 Note ATRIAL FLUTTER ABLAT ION [...] diabetes obstructive sleep apnea was admitted to [facility] with shortness of breath and was [...] clot. CS os was mapped using the [employer] 3D mapping software. Using ICE, the His [...] the sternum on the left using the [employer] tool. The loop recorder was then injected subcutaneously and noted to have good sensing parameters. Technical details of the device as noted below. The skin was then closed with 3-0 absorbable monofilament sut (more content not included)... [facility] 07-12-2023 Note Patient: Ngozi parker Procedure Information Date/Time: 07/12/23 0830 Procedures: Ablation atrial flutter Loop insertion Location: [facility] AIRPLANE TESTER 1 EP / [facility] (Cath) Providers: Jose Luis Cronin MD Clinical information reviewed: Allergies Meds OB Status Physical Exam Airway Mallampati: II TM distance: >3 FB Neck ROM: full Cardiovascular Dental Pulmonary Abdominal Anesthesia Plan ASA 2 CSE Anesthetic plan and risks discussed with patient. Use of blood products discussed with patient who. Additional Equipment Requests [facility] 06-30-2023 Note CHF stable with out exacerbation Continue GDMT as prescribed [facility] 06-30-2023 Note BP in office perfect 128/72, but with midodrine 5 mg tid she has exaggerated supine hypertension at home after review of b/p log, therefore recommended pt to take midodrine as needed - hold for SBP> 120, and can also cut tab in 1/2 to = 2.5 mg And she voiced understanding. [facility] 06-30-2023 Note [id number]= 4 Continue eliquis anticoagulation, amiodarone for rhythm control and coreg for rate control [facility] 06-30-2023 Note Patient here c/o hyp [...] All other systems reviewed and are negative. [facility] 06-30-2023 Note UTP CARDIOLOGY PROGR ESS [...] 20 18 14 (more content not included)... [facility] 06-18-2023 Note HTN currently well c ontrolled, also labile 90/57 and may have been Contributing to symptoms this week. Will add midodrine 5 mg tid to regime to prevent hypotension, lightheadedness/dizziness or syncope. [facility] 06-18-2023 Note [facility]- currently w ithout exacerbation Continue GDMT- ASA, coreg, farxiga, losartan, entresot and aldatone Diuretic therapy- bumex 1 mg daily Monitor daily weights, I&O, fluid restriction 1.5-2L/day, renal function and electrolytes [facility] 06-18-2023 Note Continue amiodarone 200 mg daily, and coreg 6.25 mg bid. Will add midodrine 5 mg tid to regime for noted hypotension and symptoms of lightheadedness/dizziness and near syncope. Continue eliquis anticoaogulation- denied any bleeding tendencies [facility] 06-18-2023 Note UTP CARDIOLOGY PROGR ESS [...] diabetes obstructive sleep apnea [facility] with shortness of breath and was [...] Musculoskeletal: General: N (more content not included)... [facility] 06-18-2023 Note Patient here c/o epi [...] All other systems reviewed and are negative. [facility] 06-08-2023 Note [place] Elect[facility] Consult Note Reason for visit: Afib HPI: Ngozi Cardoso is a 62 y.o. year old with past medical history of hypertension diabetes obstructive sleep apnea was admitted to [facility] with shortness of breath and was [...] file (05/05/2023) Utilities: Not At Risk (05/05/2023) [facility] Utilities Threatened with loss of utilities: [...] Arteries: bilateral no (more content not included)... [facility] 05-17-2023 Note [facility] Cardiology Clinic Note Chief Complaint: Patient here for follow up [facility]. Had cath on 05/07/2023. Denies chest [...] PSYCH: appropriate mood, affect, and judgement. INVESTIGATIONS: Echocardiogram-[facility] Name: NGOZI CARDOSO Study Date: 05/06/2023 08:24 AM B/P: 131 mmHg/56 mmHg HR: 80 bpm Date of : 1960 Location: [facility] Height: 65 in. Age: 62 year(s) Patient Room : [facility] Weight: 352 lb. Gender: Female [...] 2, moderate diastolic (more content not included)... [facility] 05-14-2023 Evaluation note Encounter Date Diagnosis [...] forms for supplies and faxed back to [employer]. Pt states she will restart and become compliant w CPAP treatment. [employer] Other 01-23-2024 NotePt provided with discharge education and instructions. Heart failure folder reviewed in detail and filled out. Medications delivered and at bedside. All questions answered. Pt wheeled to main entrance, father there for transport. [facility]01-23-2024 NoteCardiology Progress Note Subjective F/U Acute systolic heart failure Patient up in chair. Denies SOB, cp, palpitations. Reports pedal edema significantly improved. Tele - currently NSR, with some episodes a.fib overnight per [facility] Objective Patient Vitals for the past [...] Value Ventricular Rate 81 Atrial Rate 81 NH Interval 208 QRS DURATION 178 QT Interval 442 QTC CALCULATION(BAZETT) 513 P Washington 34 R-Washington -48 T Wave Washington 101 Impression Normal sinus rhythm Left axis [...] internal jugular vein was obtained. A 6 Bulgarian 11 cm sheath was inserted without difficulty. [...] left radial artery was obtained. A 6 Bulgarian glide sheath was inserted without difficulty. Difficulty [...] outline, coronary spasm was (more content not included)...[facility]01-23-2024 NoteHospital Medicine Discharge Summary Final Discharge Diagnosis: Atrial fibrillation with RVR- [id number] score 4 Atrial flutter New onset of congestive heart failure/heart failure -ejection fraction, 40% TTE 05/06/23 NYHA class II Hypokalemia/Hypomagnesemia Essential hypertension DMII noninsulin dependent Thrombocytopenia Osteoarthritis Obstructive sleep apnea with non compliance to CPAP Obese class 3 Admission Diagnosis: Acute systolic heart failure (CMS/[facility]) [I50.21] Hospital course: History of Present Illness Ngozi Cardoso is an 62 y.o. female admitted from [facility] as a direct admit. She has history of hypertension diabetes obstructive sleep apnea not using CPAP or BiPAP he was admitted at [facility] with chief complaint of sudden onset of shortness of breath. According to patient she wake up in the morning 2 days back very short of breath denies any chest pain heart palpitation dizziness syncope weakness no increased cough or expectoration and no fever chills cough drops with the family to [place] ER with she was noted to be [...] Telemetry strips and EKG were reviewed from [facility]. Strip labeled as V. tach is [...] obstructive sleep apnea who was admitted to [facility] with sudden onset shortness of breath found to have new onset heart failure and atrial fibrillation. Acute heart failure with mid range ejection fraction, 40% TTE 05/06/23 NYHA class II Atrial fibrillation/flutter, [id number] 4 (female-1, heart failure-1, diabetes mellitus-1, Hypertension-1) [...] 1:00 PM Regina Stark MD ELAINE [facility] 06/08/2023 2:40 PM Jose Luis Cronin MD ELAINE yLle [facility] Your medication list START taking these medications Instructions Last Dose Given Next Dose Due amiodarone 400 mg tablet Commonly known as: Pacerone Take 1 tablet (400 mg) by mouth (more content not included)...[facility]01-23-2024 NoteNutrition Screening Assessment: Patient Name: Ngozi [...] with questions and contact the dietitian via [employer] chat 8A-4P Wednesday-Wednesday. Or call the dietitian's office at extension [phone]. For weekends/holidays, the dietitian's can be reached by paging [phone] from 9A-3P. Unable to be reached via epic chat on Wednesday & .)[facility]01-22-2024 NoteHospital Medicine Daily Progress Note - 05/10/2023 12:14 PM; Room: [address] [place] [address] Admission: 05/05/2023 7:10 PM; Length of stay: 5 days THE HOSPITALIST TEAM PREFERS TO USE [employer] Targeting FOR COMMUNICATION 7AM-7PM. IF I DO NOT RESPOND WITHIN 15 MINUTES, PLEASE PAGE ME/CALL THROUGH THE HEARING SCREEN COORDINATOR. FROM 7PM-7AM, PLEASE PAGE [phone](COVR) Code Status: Full Code Barriers to Discharge: [...] Assessment and Plan Atrial fibrillation with RVR- [id number] score 4 - resumed eliquis - amio [...] FREET4 1.08 05/06/2023 No results found for: [id number] , IRON , TIBC , C3 , [...] cardiovascular factor modificati (more content not included)... [facility]01-22-2024 NotePt admitted to hospital for acute on chronic systolic HF, hx of HTN, DM, RAVI w/o CPAP compliance. Pt's echo from 05/06/23 estimated LVEF 40%, which does not qualify pt for cardiac rehab (CR) therapy with HF diagnosis per CMS eligibility criteria. I will watch for updates and follow up with pt, if appropriate. NICHELLE RosalesN patient appointment coordinator Outpatient Coordinator Cardiopulmonary [facility]habUnMary[facility]01-22-2024 Note Cardiology Progress Note Subjective F/U [...] Value Ventricular Rate 81 Atrial Rate 81 NH Interval 208 QRS DURATION 178 QT Interval 442 QTC CALCULATION(BAZETT) 513 P Washington 34 R-Washington -48 T Wave Washington 101 Impression Normal sinus rhythm Left axis [...] internal jugular vein was obtained. A 6 Bulgarian 11 cm sheath was inserted without difficulty. [...] left radial artery was obtained. A 6 Bulgarian glide sheath was inserted without difficulty. Difficulty advancing the De La Vega wire was encountered; therefore this was removed. Angiography was performed via the JR catheter. T (more content not included)...[facility]01-21-2024 NoteHospital Medicine Daily Progress Note - 05/09/2023 12:26 PM; Room: [address] [place] [address] Admission: 05/05/2023 7:10 PM; Length of stay: 4 days THE HOSPITALIST TEAM PREFERS TO USE Incent[employer] Targeting FOR COMMUNICATION 7AM-7PM. IF I DO NOT RESPOND WITHIN 15 MINUTES, PLEASE PAGE ME/CALL THROUGH THE HEARING SCREEN COORDINATOR. FROM 7PM-7AM, PLEASE PAGE [phone](COVR) Code Status: Full Code Barriers to Discharge: [...] Assessment and Plan Atrial fibrillation with RVR- [id number] score 4 - currently on metoprolol - [...] FREET4 1.08 05/06/2023 No results found for: [id number] , IRON , TIBC , C3 , [...] for heart failure with (more content not included)...[facility]01-21-2024 Note Attestation signed by Adenike Serrano [...] Value Ventricular Rate 81 Atrial Rate 81 NH Interval 208 QRS DURATION 178 QT Interval 442 QTC CALCULATION(BAZETT) 513 P Washington 34 R-Washington -48 T Wave Washington 101 Impression Normal sinus rhythm Left axis deviation Left bundle branch block Abnormal ECG When compared with ECG of 13-FEB-2013 09:22, No significant change was found Confirmed by Jose Luis Cronin ([id number]) on 05/05/2023 9:15:31 PM Lab Results Component Value Date TROPONINI 0.01 05/06/2023 Complete Echo (TTE) w/wo Imaging Agent, Strain, 3D, Bubble Study Result Date: 05/06/2023 1 1 [facility] Heart Station [address] [place] [address] [phone] (fax) Echocardiogram-[facility] Name: NGOZI CARDOSO Study Date: 05/06/2023 08:24 AM B/P: 131 mmHg/56 mmHg HR: 80 bpm Date of : 1960 Location: [facility] Height: 65 in. Age: 62 year(s) Patient Room: 313 Weight: 352 lb. Gender: Female Patient Status: [...] 2.4 cm?? Findings Left (more content not included)...[facility]01-20-2024 Note Attestation signed by Adenike Serrano [...] Value Ventricular Rate 81 Atrial Rate 81 NH Interval 208 QRS DURATION 178 QT Interval 442 QTC CALCULATION(BAZETT) 513 P Washington 34 R-Washington -48 T Wave Washington 101 Impression Normal sinus rhythm Left axis deviation Left bundle branch block Abnormal ECG When compared with ECG of 13-FEB-2013 09:22, No significant change was found Confirmed by Jose Luis Cronin ([id number]) on 05/05/2023 9:15:31 PM Lab Results Component Value Date TROPONINI 0.01 05/06/2023 Complete Echo (TTE) w/wo Imaging Agent, Strain, 3D, Bubble Study Result Date: 05/06/2023 1 1 [facility] Heart Station [address] [place] [address] [phone] (fax) Echocardiogram-[facility] Name: NGOZI CARDOSO Study Date: 05/06/2023 08:24 AM B/P: 131 mmHg/56 mmHg HR: 80 bpm Date of : 1960 Location: [facility] Height: 65 in. Age: 62 year(s) [...] cm Mitral Valv (more content not included)... [facility]01-20-2024 NoteHospital Medicine Daily Progress Note - 05/08/2023 8:40 AM; Room: [facility]313- Admission: 05/05/2023 7:10 PM; Length of stay: 3 days THE HOSPITALIST TEAM PREFERS TO USE Incentive Targeting FOR COMMUNICATION 7AM-7PM. IF I DO NOT RESPOND WITHIN 15 MINUTES, PLEASE PAGE ME/CALL THROUGH THE HEARING SCREEN COORDINATOR. FROM 7PM-7AM, PLEASE PAGE [phone](COVR) Code Status: Full Code Barriers to Discharge: [...] Assessment and Plan Atrial fibrillation with RVR- [id number] score 4 - currently on metoprolol - [...] Results from last 7 days Lab Units 05/07/2342505/06/23 0542 05/05/23 2358 WBC AUTO 10*3/uL 4.25 -- 5.73 HEMOGLOBIN g/dL 12.4 -- 13.0 HEMATOCRIT % 38.3 -- 39.9 MCV fL 88.2 -- 88.7 PLATELETS AUTO 10*3/uL 121* 121* 139* Chemistry: Results from last 7 days Lab Units 05/08/23 04205/07/23 04205/06/23 0542 SODIUM mmol/L 139 138 138 POTASSIUM [...] last 7 days Lab Units 05/08/23 0715 05/07/23205205/07/23 1151 05/06/23 2104 05/06/23 1706 05/06/23 1122 POCT GLUCOSE mg/dL 118* 125* 101 105 116* 131* Historical Values: (Includes values prior to this admission) Lab Results Component Value Date TSH 5.84 (H) 05/06/2023 FREET4 1.08 05/06/2023 No results found for: [id number] , IRON , TIBC , C3 , [...] midrange ejection fraction (H (more content not included)...[facility] 05-07-2023 NoteCardiovascular Laboratory Report FINAL IMPRESSIONS: [...] internal jugular vein was obtained. A 6 Bulgarian 11 cm sheath was inserted without difficulty. [...] left radial artery was obtained. A 6 Bulgarian glide sheath was inserted without difficulty. Difficulty [...] outline, coronary spasm was suspected. A 6 Bulgarian JR4 guide catheter was advanced in over [...] Systolic dysfunction, exertional shortness of breath, wide-complex tachycardiaUnMarymount Hospital01-19-2024 Note Patient: Ngozi Cardoso Procedure Information Date/Time: 05/07/23 1700 Procedures: Coronary angiography Right heart cath Location: [facility] AIRPLANE TESTER 3 / [facility]ULAR [facility] (Cath) Providers: Regina Stark [...] Additional Equipment Requests Regina Stark MD, MPH, [facility], [facility], [facility] Interventional Cardiology Pager Email: [email or web address] hospitalUnMarymount Hospital01-19-2024 NoteCardiology Progress Note Subjective Subjective: Patient [...] Value Ventricular Rate 81 Atrial Rate 81 NH Interval 208 QRS DURATION 178 QT Interval 442 QTC CALCULATION(BAZETT) 513 P Washington 34 R-Washington -48 T Wave Washington 101 Impression Normal sinus rhythm Left axis deviation Left bundle branch block Abnormal ECG When compared with ECG of 13-FEB-2013 09:22, No significant change was found Confirmed by Jose Lusi Cronin ([id number]) on 05/05/2023 9:15:31 PM Lab Results Component Value Date TROPONINI 0.01 05/06/2023 Complete Echo (TTE) w/wo Imaging Agent, Strain, 3D, Bubble Study Result Date: 05/06/2023 1 1 [facility] Heart Station [address] [place] [address] [phone] (fax) Echocardiogram-[facility] Name: NGOZI CARDOSO Study Date: 05/06/2023 08:24 AM B/P: 131 mmHg/56 mmHg HR: 80 bpm Date of : 1960 Location: [facility] Height: 65 in. Age: 62 year(s) [...] (pseudonormalized LV filling patte (more content not included)...[facility] 05-07-2023 NoteHospital Medicine Daily Progress Note - 05/07/2023 7:58 AM; Room: [address] [place] [address]- Admission: 05/05/2023 7:10 PM; Length of stay: 2 days THE HOSPITALIST TEAM PREFERS TO USE [employer] CHAT FOR COMMUNICATION 7AM-7PM. IF I DO NOT RESPOND WITHIN 15 MINUTES, PLEASE PAGE ME/CALL THROUGH THE HEARING SCREEN COORDINATOR. FROM 7PM-7AM, PLEASE PAGE [phone](COVR) Code Status: No Order Barriers to Discharge: [...] 62 year-old female who is transferred from [facility] with chief complaint of sudden onset of shortness of breath and was found to been atrial fibrillation with RVR that was treated with Cardizem drip, further workup with echocardiogram shows ejection fraction of 40%. transferred to [facility] for further cardiac evaluation. Assessment: Atrial fibrillation with RVR- [id number] score 4 New onset of congestive heart [...] 05/06/2023 FREET4 1.08 05/06/19 (more content not included)...[facility]01-18-2024 NoteHospital Medicine Daily Progress Note - 05/06/2023 9:19 AM; Room: [address] [place] [address] Admission: 05/05/2023 7:10 PM; Length of stay: 1 days THE HOSPITALIST TEAM PREFERS TO USE [employer] CHAT FOR COMMUNICATION 7AM-7PM. IF I DO NOT RESPOND WITHIN 15 MINUTES, PLEASE PAGE ME/CALL THROUGH THE HEARING SCREEN COORDINATOR. FROM 7PM-7AM, PLEASE PAGE [phone](COVR) Code Status: No Order Barriers to Discharge: [...] 62 year-old female who is transferred from [facility] with chief complaint of sudden onset of shortness of breath and was found to been atrial fibrillation with RVR that was treated with Cardizem drip, further workup with echocardiogram shows ejection fraction of 40%. transferred to [facility] for further cardiac evaluation. Assessment: Atrial fibrillation with RVR- [id number] score 3 New onset of congestive heart [...] FREET4 1.08 05/06/2023 No results found for: [id number] , IRON , TIBC , C3 , C4 , ILSA , CANCA , ASO , P (more content not included)...[facility] 05-05-2023 NoteHospital Medicine History and Physical 05/05/2023 9:20 PM THE HOSPITALIST TEAM PREFERS TO USE [employer] CHAT FOR COMMUNICATION 7AM-7PM. IF I DO NOT RESPOND WITHIN 15 MINUTES, PLEASE PAGE ME/CALL THROUGH THE HEARING SCREEN COORDINATOR. FROM 7PM-7AM, PLEASE PAGE [phone](COVR) Chief Complaint No chief complaint on file. History of Present Illness Ngozi Cardoso is an 62 y.o. female admitted from [facility] as a direct admit. She has history of hypertension diabetes obstructive sleep apnea not using CPAP or BiPAP he was admitted at [facility] with chief complaint of sudden onset of shortness of breath. According to patient she wake up in the morning 2 days back very short of breath denies any chest pain heart palpitation dizziness syncope weakness no increased cough or expectoration and no fever chills cough drops with the family to [place] ER with she was noted to be [...] we will retrieve copy of echo from [facility] follow-up with cardiology New onset congestive heart failure/HFrEF CHF core measures in place metoprolol Cozaar diuretics and add Farxiga serial electrolytes creatinine reduced ejection fraction would need left heart cath to rule out ischemic heart disease Hypertension blood pressure control as above suspect underlying obstructive sleep apnea discussed with patient about follow-up with her P (more content not included)...[facility]11-17-2023 Evaluation note* Encounter Date Diagnosis Assessment [...] treatment plan. Patient left in stable condition [facility] Other 07-06-2021 Evaluation note* Diagnosis Onset Date Resolution Status Essential (primary) hypertension October 22, 2020 acute Paroxysmal atrial fibrillation acute Screening mammogram for breast cancer acute Type 2 diabetes mellitus with hyperglycemia acute [facility] Work Phone: Evaluation noteNo InformationNort [employer] Other History general Narrative - Reported* Type [...] knee arthroplasty 05/07 Hospitalization History see above [facility] Other Summary Purpose Family History No Family [...] section and content) DATE CREATED AUTHOR 08/28/2018 [facility] DATE CREATED AUTHOR AUTHOR'S ORGANIZ ATION 05/07/2021 [facility] DATE CREATED AUTHOR AUTHOR'S ORGANIZ ATION 09/19/2021 [facility] DATE CREATED AUTHOR AUTHOR'S ORGANIZ ATION 02/27/[address] [facility] DATE CREATED AUTHOR AUTHOR'S ORGANIZ ATION 08/13/2023 [facility] REASON FOR VISIT (unrecogniz ed section and content) COUGH//SORE THROAT//FATIGUER EFILLRefWexner Medical Center - D/C 05/11messageedward p. boland department of veterans affairs medical centerge Care Teams (unrecognized sec tion and content) [...] BE BASED ON THE PRIMARY CLINICAL RECORDS. [facility] [employer] [facility]. provides no warranty or guarantee of the accuracy or completeness of information in this document.
== END 2023-09-10 10:57 | disposition home or self-care (01) ==
LOC: MAMMO 10:56
PROVIDERS: PCP Family Medicine; Visit Provider Family Medicine
DX: Z12.31 Encounter for screening mammogram for malignant neoplasm of breast (principal); Z80.3 Family history of malignant neoplasm of breast
CPT/HCPCS: 77063; 77067

== ENCOUNTER 2023-10-19 10:29 | Outpatient (OUT) | payer OTHER, SELFPAY ==
--- OUTSIDE RECORDS SUMMARY | 2023-10-19 10:36 | XMS_ITS | CCD ---
Author Organization [facility] Care Team Providers Care Wheel Alignment Mechanic Name Role Phone Hans Whiteside Attending Unavailable [...] SINDI Torres Consulting Unavailable Etta Gordon Unavailable Benjamin, Sindi Unavailable LARA ROLAND Attending Unavailable ASUNCIONLARA Kilpatrick Attending Unavailable MILTONJOSE LUIS Attending Unavailable MILTONJOSE LUIS Mei Referring Unavailable MILTONJOSE LUIS Referring Unavailable ELTAHAWY, REGINA Attending Unavailable JOSE LUIS CRONIN Referring Unavailable MILTON, JOSE LUIS Attending Unavailable BENY LANG Attending Unavailable JOSE LUIS CRONIN Admitting Unavailable MILTON, JOSE LUIS Attending Unavailable ADENIKE SERRANO Referring Unavailable MATTY, GUILLERMO Admitting Unavailable HEAVEN DOWD Attending Unavailable SANAULLAH, SEBAS Referring Unavailable SANAULLAH, SEBAS Referring Unavailable SANAULLAH, SEBAS Referring Unavailable MILTONJOSE LUIS Mei Referring Unavailable Allergies Allergy Classification Reported Allergen(s) Allergy Type Date of Onset Reaction(s) Facility (4 sources) Penicillins; Translations: [PENICILLINS] Drug allergy (disorder) 02-07-20 13 [facility] Repository (8 sources) Ciprofloxacin Drug Allergy 08-12-19 Comment:nausea and diarrhea [facility] (8 sources) Penicillin G Drug Allergy 08-12-19 [facility] (8 sources) traMADol Drug Allergy 06-25-19 16 Unknown, [facility] (6 sources) Substance with penicillin structure and antibacterial mechanism of action (substance) Drug allergy 12-23-19 13 Unknown [facility] Other (6 sources) patient allergy list reviewed by nurse or physicia Propensity to adverse reactions 11-11-19 19 Comment:Done [facility] Other (6 sources) TraMADol & Dietary Manage Prod *ANALGESICS - OPIOI Propensity to adverse reactions 06-25-19 16 Unknown [facility] Other (6 sources) Allergies Reconciled Propensity to adverse reactions Unknown [facility] Other Medications Current Medications Medication Drug Class(es) Dates Sig (Normalized) Sig (Original) amiodarone hydrochloride 400 mg oral tablet (6 sources) Antiarrhythmic Start: 10-14-2023 take 200 mg by mouth once daily Amiodarone Active 200 MG PO Daily October 14, 2023 9:42am Start: 06-18-2023 End: 10-14-2023 take 400 mg by mouth once daily Amiodarone Discontinue d 400 MG PO Daily June 18, 2023 1:00am October 14, 2023 9:42am take 1 tablet by dayday th every twenty-four hours Amiodarone HCl 400 MG 1 tablet Orally Once a day Active apixaban 5 mg oral tablet (5 sources) Factor Xa Inhibitor Start: 06-18-2023 take 5 mg by mouth twice daily Apixaban Active 5 MG PO Twice daily June 18, 2023 1:00am take 1 tablet by mouth twice ruth ly Apixaban 5 MG 1 tablet Orally Twice a day Active aspirin 81 mg delayed release oral tablet (4 sources) Platelet Aggregation Inhibitor, Nonsteroidal Anti-inflammatory Drug [...] Active -Hx Entry for 0 *Reorder from [facility] for eRx and Interaction Alerts* Feb, Active [...] Jan, Active bumetanide 1 mg oral tablet (7 sources) Loop Diuretic Start: 06-18-2023 End: 08-12-2023 take 1 mg by mouth once daily Bumetanide Active 1 MG PO Daily August 12, 2023 12:00am take 1 tablet by dayday th every twenty-four hours Bumetanide 1 MG 1 tablet Orally Once a day Active carvedilol 6.25 mg oral tablet (5 sources) alpha-Adrenergic Kayli, beta-Adrenergic Kayli Start: 06-18-2023 take 6.25 mg by mouth twice daily Carvedilol Active 6.25 MG PO Twice daily June 18, 2023 1:00am take 1 tablet by dayday th every twelve hours Carvedilol 6.25 MG 1 tablet with food Orally Twice a day Active dapagliflozin 10 mg oral tablet (5 sources) Sodium-Glucose Cotransporter 2 Inhibitor Start: 06-18-2023 take 10 mg by mouth once daily Dapagliflozin Propanediol Active 10 MG PO Daily June 18, 2023 1:00am take 1 tablet by mouth once alvarez y Dapagliflozin Propanediol 10 MG 1 tablet Orally Once a day Active losartan potassium 25 mg oral tablet (1 source) Angiotensin 2 Receptor Kayli Start: 10-14-2023 take 25 mg by mouth once daily Losartan Active 25 MG PO Daily October 14, 2023 12:00am magnesium oxide 400 mg oral tablet (5 sources) Start: 06-18-2023 take 400 mg by mouth once daily Magnesium Oxide Active 400 MG PO Daily June 18, 2023 1:00am take 1 tablet by dayday th every twenty-four hours Magnesium Oxide 400 MG 1 tablet as needed Orally Once a day Active 24 hr metFORMIN hydrochloride 500 mg extended release oral tablet (14 sources) Biguanide Start: 06-18-2023 take 500 mg by mouth once daily in the evening Metformin Active 500 MG PO Every evening June 18, 2023 1:00am Start: 03-16-2022 take 1 tablet by dayday th once daily in the evening Metformin 500mg metFORMIN 500mg, 1 (one) Tablet every evening # 0, 03/16/2022, No Refill. Active oral every evening for 0 *Reorder from [employer] for eRx and Interaction Alerts* Feb, Active take 1 tablet by dayday th once daily in the evening metFORMIN HCl ER 500 MG TAKE 1 TABLET BY MOUTH EVERY EVENING for 90 Active metFORMIN HCl No t-Taking/PRN metFORMIN HCl No t-Taking metoprolol tartrate 50 mg oral tablet (13 sources) beta-Adrenergic Kayli Start: 09-02-2021 take 1 tablet by mouth once daily Metoprolol Succinate ER 50MG Metoprolol Succinate ER 50MG, 1 (one) Tablet Tablet daily # 0, 09/02/2021, No Refill. Active Oral daily for 0 *Pick strength-form from [employer] for eRX* August, Active Start: 07-14-2018 End: [...] mg oral tablet (3 sources) Start: 03-05-20 take 1 tablet by mouth every twelve hours prednisone 20 MG 1 tablet Orally BID for 5 Feb, Active spironolactone 25 mg oral tablet (5 sources) Aldosterone Antagonist Start: 06-18-19 take 25 mg by mouth once daily [...] Sig (Original) acetaminophen 325 mg oral tablet (2 sources) Start: 07-14-2018 End: 06-18-2023 take 650 mg [...] at bedtime for 0 *Pick strength-form from [employer] for eRX* Sep, Not-Taking/PRN take 1 tablet [...] a day for 10 day(s) Sep, Not-Taking/PRN diclofenac sodium 75 mg delayed release oral tablet (13 sources) Nonsteroidal Anti-inflammatory Drug Start: 06-18-2023 End: 10-14-2023 take 75 mg by mouth twice daily Diclofenac Sodium Discontinued 75 MG PO Twice daily June 18, 2023 1:00am October 14, 2023 9:42am Start: 11-27-2021 take 1 tablet by daydya th twice daily Diclofenac Sodium 75MG Diclofenac Sodium 75MG, 1 Tablet Tablet twice a day # 0, 11/27/2021, No Refill. Active Oral twice a day for 0 *Pick strength-form from [employer] for eRX* Nov, Active Start: 06-22-2018 End: 07-14-2018 take 75 mg by mouth once daily in the morning Diclofenac Sodium Discontinued 75 MG PO Every morning June 22, 2018 1:00am July 14, 2018 12:23pm take 1 tablet by dayday twice daily at mealtime Diclofenac Sodium 75 MG TAKE 1 TABLET BY MOUTH TWICE DAILY WITH FOOD for 90 Not-Taking/PRN docusate sodium 100 mg oral capsule (2 sources) Start: 07-14-2018 End: 06-18-2023 take 100 mg by mouth twice daily Docusate Sodium Discontinued 100 MG PO Twice daily 60 30 July 14, 2018 12:00am June 18, 2023 3:38pm 0.4 ml enoxaparin sodium 100 mg/ml prefilled syringe (2 sources) Low Molecular Weight Heparin Start: 07-06-2018 End: 07-14-2018 Enoxaparin (Lovenox) 40 mg/0.4 mL Syringe Discontinued 40 MG SUBCUT Every 12 hours at 1000 & 2200 July 06, 2018 12:00am July 14, 2018 12:23pm hydrOXYzine pamoate 50 mg oral capsule (4 sources) Antihistamine Start: 07-06-2018 End: 07-14-2018 take [...] mg midodrine hydrochloride 5 mg oral tablet (2 sources) alpha-Adrenergic Agonist Start: 06-21-2023 End: 08-12-2023 take 1 dose by mouth once daily at bedtime Midodrine Discontinued 5 MG PO Three times daily June 21, 2023 1:00am August 12, 2023 11:11am do not give last dose of day after 6PM or within 4 hrs of bedtime Multivitamin (Multiple Vitamins) Tablet (2 sources) Start: 06-22-2018 End: 07-14-2018 take 1 tablet by mouth once daily Multivitamin (Multiple Vitamins) Tablet Discontinued 1 TAB PO Daily June 22, 2018 1:00am July 14, 2018 12:27pm Multivitamin With Folic Acid (Thera) 400 mcg Tablet (2 sources) Start: 07-14-2018 End: 06-18-2023 take 1 tablet by mouth once daily Multivitamin With Folic Acid (Thera) 400 mcg Tablet Discontinued 1 TAB PO Daily July 14, 2018 12:00am June 18, 2023 3:38pm oxyCODONE hydrochloride 5 mg oral tablet (10 sources) Opioid Agonist Start: 07-14-2018 End: 06-18-2023 [...] mg / valsartan 26 mg oral tablet (5 sources) Angiotensin 2 Receptor Kayli Start: 06-18-2023 End: 08-12-2023 take 1 tablet [...] mg vitamin b12 1 mg oral tablet (7 sources) Vitamin B12 Start: 06-22-2018 End: 06-18-2023 take 1000 ug by mouth once daily Cyanocobalamin (Vitamin B-12) Discontinued 1000 MCG PO Daily July 14, 2018 12:00am June 18, 2023 3:38pm Vitamin B 12 Act estela Problems Active Problems Problem Classification Problem Date Documented Da te Episodic/Chronic Acute and unspecified renal failure (2 sources) Acute renal failure syndrome; Translations: [Acute kidney failure, unspecified] 03-31-2023 Episodic Acute bronchitis (12 sources) Acute bronchitis; Translations: [Acute bronchitis due to other specified organisms] Episodic Administrative/social admission (2 sources) Other reduced mobility; Translations: [Impaired mobility and activities of daily living] 03-31-2023 Episodic Cardiac dysrhythmias (20 sources) Premature beats; Translations: [Other premature beats] Onset: 8 Chronic Cardiac dysrhythmias (2 sources) Palpitations; Translations: [Palpitations] Onset: 4 Episodic Chronic obstructive pulmonary disease and bronchiectasis (6 sources) Bronchitis; Translations: [Bronchitis, not specified as acute or chronic] Episodic Coagulation and hemorrhagic disorders (8 sources) Immune thrombocytopenic purpura; Translations: [Immune thrombocytopenic purpura] 03-31-2023 Chronic Conduction disorders (7 sources) Left bundle-branch block, unspecified; Translations: [Left bundle branch block] Onset: 9 Chronic Congestive heart failure; nonhypertensive (10 sources) Congestive heart failure; Translations: [Heart failure, unspecified] Onset: 4 Chronic Deficiency and other anemia (8 sources) Anemia; Translations: [Anemia, unspecified] Onset: 9 03-31-2023 Episodic Diabetes mellitus with complications (10 sources) Hyperglycemia due to type 2 diabetes mellitus; Translations: [Type 2 diabetes mellitus with hyperglycemia] 06-18-2023 Chronic Diabetes mellitus without complication (6 sources) Impaired fasting glycemia; Translations: [Impaired fasting glucose] Episodic Essential hypertension (15 sources) Essential hypertension; Translations: [Essential (primary) hypertension] Onset: 1 Chronic Fluid and electrolyte disorders (2 sources) Hypokalemia; Translations: [Hypokalemia] 03-31-2023 Episodic Genitourinary symptoms and ill-defined conditions (6 sources) Finding of frequency of urination; Translations: [Frequency of micturition] Episodic Osteoarthritis (20 sources) Osteoarthritis; Translations: [Unspecified osteoarthritis, unspecified site] Onset: 7 Chronic Other circulatory disease (6 sources) Elevated blood-pressure reading without diagnosis of hypertension; Translations: [Elevated blood-pressure reading, without diagnosis of hypertension] Episodic Other connective tissue disease (8 sources) History of total knee arthroplasty; Translations: [Presence of right artificial knee joint] 03-31-2023 Chronic Other connective tissue disease (6 sources) Pain in limb; Translations: [Pain in right finger(s)] Episodic Other diseases of bladder and urethra (8 sources) Overactive bladder; Translations: [Overactive bladder] Onset: 3 06-18-2023 Chronic Other gastrointestinal disorders (6 sources) Irritable bowel syndrome with diarrhea; Translations: [Irritable bowel syndrome with diarrhea] Chronic Other gastrointestinal disorders (6 sources) Diarrhea; Translations: [Diarrhea, unspecified] Episodic Other nervous system disorders (2 sources) Postoperative pain ; Translations: [Other acute postprocedural pain] 03-31-2023 Episodic Other nutritional; endocrine; and metabolic disorders (6 sources) Morbid obesity; Translations: [Morbid (severe) obesity due to excess calories] Onset: 5 Chronic Other nutritional; endocrine; and metabolic disorders (14 sources) Body mass index 40+ - severely obese; Translations: [Body mass index (BMI) 60.0-69.9, adult] 03-31-2023 Chronic Other screening for suspected conditions (not mental disorders or infectious disease) (15 sources) Abnormal electrocardiogram [ECG] [EKG]; Translations: [Other [...] sinusitis, unspecified] Chronic Phlebitis; thrombophlebitis and thromboembolism (2 sources) H/O: Deep vein thrombosis; Translations: [Personal history of other venous thrombosis and embolism] 07-06-2018 Episodic Residual codes; unclassified (11 sources) Obstructive sleep apnea syndrome; Translations: [Obstructive [...] Other ventricular tachycardia; Translations: [Other ventricular tachycardia] Unclassified (2 sources) Other persistent atrial fibrillation; Translations: [Other persistent atrial fibrillation] Onset: 4 Past or Other Problems Problem Classification Problem Date Documented Da te Episodic/Chronic Complications of surgical procedures or medical care (2 sources) Hypotension due to drugs; Translations: [Hypotension due to drugs] Onset: 06-18-2023 Episodic Nonspecific chest pain (6 sources) Chest [...] and (suspected) exposure to covid-19 Z20.822 Unclassified (2 sources) Lack of stamina; Translations: [Impaired endurance] 03-31-2023 Viral infection (1 source) COVID-19 Results Test Name Value Interpretation Reference Range Facility Office Visiton 10-05-2023 Follow-up visit [id number] Fern Cardoso 1960 Provider Department Center 10/05/2023 JOSE LUIS WILLIS [facility] Family History Problem Relation Age of Onset Heart attack Mother Stroke Mother Atrial fibrillation Father Heart attack Brother Stroke Brother Family Status - Relation Status Age at Mother Father Brother Level of Service:[id number] [place] OFFICE/OUTPATIENT ESTABLISHED HIGH MDM 40 MIN Normal [facility] Prep for Procedureon 024 Prep for Procedure [id number] Fern Cardoso 1960 Provider Department Center 10/05/2023 JOES LUIS WILLIS [facility] Family History Problem Relation Age of Onset Heart attack Mother Stroke Mother Atrial fibrillation Father Heart attack Brother Stroke Brother Family Status - Relation Status Age at Mother Father Brother Normal [facility] Glucose mean value [Mass/vol ume] in Blood Estimated from glycated hemoglobinon 08-28-2023 Average glucose Estimated from glycated hemoglobin (Bld) [Mass/Vol] 111 mg/dL [facility] Laboratory - Hematology and Cell countson 08-28-2023 HbA1c (Bld) [Mass fraction] 5.5 % 4.5-6.2 [facility] Comment on above: ADA RECOMMENDED LIMI T 4.0 - 6.0ADA THERAPEUTIC TARGET < 7.0ACTION SUGGESTED> 7.0 Office Visiton 08-12-2023 Follow-up visit [id number] Fern Cardoso 1960 F Date Provider Department Center 08/12/2023 BENY LAZAR [facility] Family History Problem Relation Age of Onset Heart attack Mother Stroke Mother Atrial fibrillation Father Heart attack Brother Stroke Brother Family Status - Relation Status Age at Mother Father Brother Level of Service:50139 [place] OFFICE/OUTPATIENT ESTABLISHED MOD MDM 30 MIN Reason for Visit and Comments: Atrial Fibrillation [80] Congestive Heart Failure [127] Normal [facility] 36on 07-19-2023 36 Can wait to see how she does Normal [facility] HPon 07-12-2023 [facility] Electrophysiology Consult Note Reason for visit: Afib HPI: Fern Cardoso is a 62 y.o. year old with past medical history of hypertension diabetes obstructive sleep apnea was admitted to [facility] with shortness of breath and was noted [...] Atrial fibrillation (CMS/HCC) CHF (congestive heart failure) ([facility]/HCC) Diabetes mellitus (CMS/HCC) Hypertension PSH: Past [...] file (05/05/2023) Utilities: Not At Risk (05/05/2023) [facility] Utilities Threatened with loss of utilities: [...] bilateral no (more content not included)... Normal [facility] NURSNOTEon 07-12-2023 NURSNOTE RN educated pt on d/ c instructions. RN encouraged pt to voice any questions or concerns. Pt verbalizes no questions or concerns at this time. Pt was wheeled off of unit with all of belongings. Normal [facility] Basophils Auto (Bld) [#/Vol] on 07-09-2023 Basophils (Bld) [#/Vol] 0.1 10 3/uL 0.0-0.1 [facility] Basophils/100 WBC Auto (Bld) on 07-09-2023 Basophils/100 WBC (Bld) 1.2 % 0.2-2.0 [facility] Eosinophils/100 WBC Auto (Bl d)on 07-09-2023 Eosinophils/100 WBC (Bld) 4.3 % 0.9-7.0 [facility] Erythrocyte distribution wid th Auto (RBC) [Ratio]on 07-09-2023 Erythrocyte distribution width (RBC) [Ratio] 15.3 % 11.0-15.0 [facility] Estimated glomerular filtrat ion rate (GFR) non- Americanon 07-09-2023 GFR/1.73 sq M.predicted among non-blacks MDRD (S/P/Bld) [Vol rate/Area] 43 mL/min/{1.73_m2} >=60 [facility] Hematocrit Auto (Bld) [Volum e fraction]on 07-09-2023 Hematocrit (Bld) [Volume fraction] 40.3 % 36.0-48.0 [facility] Hemoglobin [Mass/volume] in Bloodon 07-09-2023 Hemoglobin (Bld) [Mass/Vol] 12.8 g/dL 12.0-16.0 [facility] Laboratory - Chemistry and C hemistry - challengeon 07-09-2023 Calcium [Mass/Vol] 8.9 mg/dL 8.5-10.1 [facility] Chloride [Moles/Vol] 102 mmol/L 98-107 [facility] CO2 [Moles/Vol] 30.1 mmol/L 21.0-32.0 [facility] Creatinine [Mass/Vol] 1.27 mg/dL 0.55-1.02 [facility] GFR/1.73 sq M.predicted MDRD (S/P/Bld) [Vol rate/Area] 52 mL/min/{1.73_m2} >=60 [facility] Glucose [Mass/Vol] 114 mg/dL 74-106 [facility] Potassium [Moles/Vol] 3.7 mmol/L 3.5-5.1 [facility] Sodium [Moles/Vol] 142 mmol/L 136-145 [facility] Urea nitrogen [Mass/Vol] 18.0 mg/dL 7.0-18.0 [facility] Urea nitrogen/Creatinine [Mass ratio] 14.2 mg/mg [facility] Laboratory - Hematology and Cell countson 07-09-2023 Immature granulocytes/100 WBC (Bld) 0.2 % 0.0-0.5 [facility] Leukocytes [#/volume] correc renato for nucleated erythrocytes in Blood by Automated counon 07-09-2023 WBC corrected for nucl RBC Auto (Bld) [#/Vol] 4.2 10 3/uL 4.0-11.0 [facility] Lymphocytes Auto (Bld) [#/Vo l]on 07-09-2023 Lymphocytes (Bld) [#/Vol] 1.5 10 3/uL 1.2-3.8 [facility] Lymphocytes/100 WBC Auto (Bl d)on 07-09-2023 Lymphocytes/100 WBC (Bld) 34.8 % 20.5-60.0 [facility] MCH Auto (RBC) [Entitic mass ]on 07-09-2023 MCH (RBC) [Entitic mass] 29.0 pg 26.7-34.0 [facility] MCHC Auto (RBC) [Mass/Vol]on 07-09-2023 MCHC (RBC) [Mass/Vol] 31.8 g/dL 29.9-35.2 [facility] MCV Auto (RBC) [Entitic vol] on 07-09-2023 MCV (RBC) [Entitic vol] 91.4 fL 81.0-99.0 [facility] Monocytes Auto (Bld) [#/Vol] on 07-09-2023 Monocytes (Bld) [#/Vol] 0.3 10 3/uL 0.3-0.8 [facility] Monocytes/100 WBC Auto (Bld) on 07-09-2023 Monocytes/100 WBC (Bld) 7.6 % 1.7-12.0 [facility] Neutrophils Auto (Bld) [#/Vo l]on 07-09-2023 Neutrophils (Bld) [#/Vol] 2.2 10 3/uL 1.4-6.5 [facility] Neutrophils/100 WBC Auto (Bl d)on 07-09-2023 Neutrophils/100 WBC (Bld) 51.9 % 43.0-75.0 [facility] No Panel Informationon 07-08 Eosinophils # (Auto) 0.2 10 3/uL 0.0-0.7 [facility] Immature Granulocyte # (Auto) 0.01 10 3/uL 0.00-0.03 [facility] Platelet mean volume Auto (B ld) [Entitic vol]on 07-09-2023 Platelet mean volume (Bld) [Entitic vol] 12.4 fL 9.5-13.5 [facility] Platelets Auto (Bld) [#/Vol] on 07-09-2023 Platelets (Bld) [#/Vol] 108 10 3/uL 150-450 [facility] RBC Auto (Bld) [#/Vol]on RBC (Bld) [#/Vol] 4.41 10 6/uL 4.20-5.40 [facility] Serum or plasma anion gap de terminationon 07-09-2023 Anion gap [Moles/Vol] 13.6 mmol/L [facility] Orders Onlyon 07-08-2023 Orders Only [id number] Fern Cardoso 1960 F Date Provider Department Center 07/08/2023 MIKE RODRIGUEZ [facility] Family History Problem Relation Age of Onset Heart attack Mother Stroke Mother Atrial fibrillation Father Heart attack Brother Stroke Brother Family Status - Relation Status Age at Mother Father Brother Normal [facility] Office Visiton 06-30-2023 Follow-up visit [id number] Fern Cardoso 1960 F Date Provider Department Center 06/30/2023 [facility] Family History Problem Relation Age of Onset Heart attack Mother Stroke Mother Atrial fibrillation Father Heart attack Brother Stroke Brother Family Status - Relation Status Age at Mother Father Brother Level of Service:[id number] [place] OFFICE/OUTPATIENT ESTABLISHED LOW MDM 20 MIN Normal [facility] Office Visiton 06-18-2023 Follow-up visit [id number] Fern Cardoso 1960 F Date Provider Department Center 06/18/2023 L[facility] Family History Problem Relation Age of Onset Heart attack Mother Stroke Mother Atrial fibrillation Father Heart attack Brother Stroke Brother Family Status - Relation Status Age at Mother Father Brother Level of Service:78445 [place] OFFICE/OUTPATIENT ESTABLISHED MOD MDM 30 MIN Normal [facility] Office Visiton 06-08-2023 Follow-up visit [id number] Fern Cardoso 1960 F Date Provider Department Center 06/08/2023 LAZARO JOSE LUIS ELAINE [facility] Family History Problem Relation Age of Onset Heart attack Mother Stroke Mother Atrial fibrillation Father Heart attack Brother Stroke Brother Family Status - Relation Status Age at Mother Father Brother Level of Service:[id number] [place] OFFICE/OUTPATIENT NEW HIGH MDM 60 MINUTES [facility] Office Visiton 05-17-2023 Follow-up visit [id number] Fern Cardoso 1960 F Date Provider Department Center 05/17/2023 Yoko-RUTJamalREGINA CARD [facility] Family History Problem Relation Age of Onset Heart attack Mother Stroke Mother Atrial fibrillation Father Heart attack Brother Stroke Brother Family Status - Relation Status Age at Mother Father Brother Level of Service:[id number] [place] OFFICE/OUTPATIENT ESTABLISHED LOW MDM 20 MIN [facility] 36on 05-12-2023 36 Discharge date: 05/11/23 Call date: 05/12/23 Spoke with: patient HF Follow-up date: 05/17/23 Med reconciliation completed: yes Questions/Concerns: Home meds reviewe with pt. Pt asked about [facility] paperwork that her company was to fax over to the 3rd floor for the discharging provider. Senior Product Development Engineer will reach out to the Hospitalist team. Pt is aware of follow up appt. Senior Product Development Engineer encouraged pt to monitor daily weights and notified pt where to find education on her AVS to refer to. [facility] Documentationon 05-12-2023 Documentation [id number] Fern Cardoso 1960 F Date Provider Department Center 05/12/2023 SUSSY SOLO [facility] No family history on file Reason for Visit and Comments: HF inpatient satisfaction survey sent. [Other] [facility] Telephoneon 05-12-2023 Telephone [id number] Fern Cardoso 1960 F Date Provider Department Center 05/12/2023 [id number] WYATT [facility] No family history on file Reason for Visit and Comments: HF post discharge call [Other] Normal [facility] 30on 05-11-2023 30 Problem: Pain - Adul t Goal: Verbalizes/displays adequate comfort level or baseline comfort level Outcome: Progressing Problem: Safety - Adult Goal: Free from fall injury Outcome: Progressing Flowsheets (Taken 05/11/2023 0746) Free from fall injury: Assess patient frequently for physical needs Identify cognitive and physical deficits and behaviors that affect risk of falls [place] fall precautions as indicated by assessment Modify [...] retention as needed Discuss catheterization for senior living situations as appropriate The patient is Moderately Stable - Low risk of patient condition declining or worsening The patient's goals for the shift include comfort The clinical goals for the shift include safety Normal [facility] BASIC METABOLIC PANELon 04-20 Anion gap [Moles/Vol] 11 mmol/L Normal 7-20 [facility] Comment on above: Performed By: #### L [id number] #### [facility] ([facility]) [address] [place] [address] Calcium [Mass/Vol] 9.7 mg/dL Normal 8.6-10.3 [facility] Comment on above: Performed By: #### L [id number] #### [facility] ([facility]) [address] [place] [address] Chloride [Moles/Vol] 98 mmol/L Normal 98-107 [facility] Comment on above: Performed By: #### L [id number] #### [facility] ([facility]) [address] [place] [address] CO2 [Moles/Vol] 30 mmol/L Normal 21-31 [facility] Comment on above: Performed By: #### L [id number] #### [facility] ([facility]) [address] [place] [address] Creatinine [Mass/Vol] 0.80 mg/dL Normal 0.60-1.20 [facility] Comment on above: Performed By: #### L [id number] #### [facility] ([facility]) [address] [place] [address] GLOMERULAR FILTRATION RATE ML/MIN/1.73 SQ M.PREDICTED 83.8 mL/min/1.73m*2 Normal >60.0 [facility] Comment on above: Result Comment: [facility]???s estimated glomerular filtration rate (eGFR) will no [...] group of individuals. Performed By: #### L [id number] #### [facility] ([facility]) [address] [place] [address] Glucose [Mass/Vol] 116 mg/dL High 70-100 [facility] Comment on above: Performed By: #### L [id number] #### [facility] ([facility]) [address] [place] [address] Potassium [Moles/Vol] 3.7 mmol/L Normal 3.5-5.1 [facility] Comment on above: Performed By: #### L [id number] #### [facility] ([facility]) [address] [place] [address] Sodium [Moles/Vol] 135 mmol/L Low 136-145 [facility] Comment on above: Performed By: #### L [id number] #### [facility] ([facility]) [address] [place] [address] Urea nitrogen [Mass/Vol] 17 mg/dL Normal 7-25 [facility] Comment on above: Performed By: #### L [id number] #### [facility] ([facility]) [address] [place] [address] UREA NITROGEN/CREATININE (MASS RATIO) IN SER/PLAS 21.3 Normal [facility] Comment on above: Performed By: #### L [id number] #### [facility] ([facility]) [address] [place] [address] CBCon 05-11-2023 Erythrocyte distribution width (RBC) [Ratio] 15.2 % High 11.5-15.0 [facility] Comment on above: Performed By: #### L [id number] ####[facility] ([facility])[address] [place] [address] ERYTHROCYTE MEAN CORPUSCULAR HEMOGLOBIN CONCENTRATION (G/DL) BY AUTOMATED 31.9 g/dL Low 32.0-35.0 [facility] Comment on above: Performed By: #### L [id number] ####[facility] ([facility])[address] [place] [address] Hematocrit (Bld) [Volume fraction] 40.7 % Normal 36.0-48.0 [facility] Comment on above: Performed By: #### L [id number] ####[facility] ([facility])[address] [place] [address] Hemoglobin (Bld) [Mass/Vol] 13.0 g/dL Normal 12.0-15.0 [facility] Comment on above: Performed By: #### L [id number] ####[facility] ([facility])[address] [place] [address] MCH (RBC) [Entitic mass] 28.4 pg Normal 27.0-33.0 [facility] Comment on above: Performed By: #### L [id number] ####[facility] ([facility])[address] [place] [address] MCV (RBC) [Entitic vol] 88.9 fL Normal 82.0-98.0 [facility] Comment on above: Performed By: #### L [id number] ####[facility] ([facility])[address] [place] [address] PLATELETS (10*3/UL) IN BLOOD AUTOMATED COUNT 107 10*3/uL Low 150-400 [facility] Comment on above: Performed By: #### L [id number] ####[facility] ([facility])[address] [place] [address] RBC (Bld) [#/Vol] 4.58 10*6/uL Normal 3.80-5.00 [facility] Comment on above: Performed By: #### L [id number] ####[facility] ([facility])[address] [place] [address] WBC (Bld) [#/Vol] 4.32 10*3/uL Normal 4.00-10.60 [facility] Comment on above: Performed By: #### L [id number] ####[facility] ([facility])[address] [place] [address] LIPID PANELon 05-11-2023 CHOL/HDL 4.8 mg/dL Normal [facility] Comment on above: Performed By: #### L [id number] #### [facility] ([facility]) [address] [place] [address] Cholesterol [Mass/Vol] 152 mg/dL Normal 120-200 [facility] Comment on above: Performed By: #### L [id number] #### [facility] ([facility]) [address] [place] [address] Magnesium [Mass/Vol] 77 mg/dL Normal 40-149 [facility] Comment on above: Result Comment: TRIG LYCERIDE REFERENCE RANGE: 20 YEARS AND OLDER CARDIOVASCULAR RISK LESS THAN 150 mg/dL LOW RISK 150 TO 199 mg/dL BORDERLINE RISK 200 mg/dL AND GREATER HIGH RISK Performed By: #### L [id number] #### [facility] ([facility]) [address] [place] [address] Magnesium [Mass/Vol] 105 mg/dL Normal 0-160 [facility] Comment on above: Performed By: #### L [id number] #### [facility] ([facility]) [address] [place] [address] Magnesium [Mass/Vol] 32 mg/dL Normal 23-92 [facility] Comment on above: Performed By: #### L [id number] #### [facility] ([facility]) [address] [place] [address] NON HDL CHOL. (LDL+VLDL) 120 Normal [facility] Comment on above: Performed By: #### L [id number] #### [facility] ([facility]) [address] [place] [address] TOTAL VLDL-C 15 mg/dL Normal 0-40 [facility] Comment on above: Performed By: #### L [id number] #### [facility] ([facility]) [address] [place] [address] MAGNESIUMon 05-11-2023 Magnesium [Mass/Vol] 1.7 mg/dL Low 1.9-2.7 [facility] Comment on above: Performed By: #### L [id number] #### [facility] ([facility]) [address] [place] [address] POCT GLUCOSE METER UNSOLICIT ED RESULTSon 05-11-2023 Glucose [Mass/Vol] 114 mg/dL High 70-105 [facility] Comment on above: Order Comment: Waive d Testing in the ED is performed under the ED CLIA certificate #[id number]. Result Comment: [email or web address] Performed By: #### L [id number] #### [facility] ([facility]) [address] [place] [address] 30on 05-10-2023 30 The patient is Moderately Stable - Low risk of patient condition declining or worsening The patient's goals for the shift include comfort The clinical goals for the shift include safety Normal [facility] 30 Problem: Pain - Adul t Goal: Verbalizes/displays adequate comfort level or baseline comfort level Outcome: Progressing Problem: Safety - Adult Goal: Free from fall injury Outcome: Progressing Flowsheets (Taken 05/10/2023 0848) Free from fall injury: Assess patient frequently for physical needs Identify cognitive and physical deficits and behaviors that affect risk of falls [place] fall precautions as indicated by assessment Educate [...] goals for the shift include safety Normal [facility] BASIC METABOLIC PANELon 04-20 Anion gap [Moles/Vol] 8 mmol/L Normal 7-20 [facility] Comment on above: Performed By: #### L [id number] #### [facility] ([facility]) [address] [place] [address] Calcium [Mass/Vol] 9.7 mg/dL Normal 8.6-10.3 [facility] Comment on above: Performed By: #### L [id number] #### [facility] ([facility]) [address] [place] [address] Chloride [Moles/Vol] 99 mmol/L Normal 98-107 [facility] Comment on above: Performed By: #### L [id number] #### [facility] ([facility]) [address] [place] [address] CO2 [Moles/Vol] 33 mmol/L High 21-31 [facility] Comment on above: Performed By: #### L [id number] #### [facility] ([facility]) [address] [place] [address] Creatinine [Mass/Vol] 0.80 mg/dL Normal 0.60-1.20 [facility] Comment on above: Performed By: #### L [id number] #### [facility] ([facility]) [address] [place] [address] GLOMERULAR FILTRATION RATE ML/MIN/1.73 SQ M.PREDICTED 83.8 mL/min/1.73m*2 Normal >60.0 [facility] Comment on above: Result Comment: [facility]???s estimated glomerular filtration rate (eGFR) will no [...] group of individuals. Performed By: #### L [id number] #### [facility] ([facility]) [address] [place] [address] Glucose [Mass/Vol] 110 mg/dL High 70-100 [facility] Comment on above: Performed By: #### L [id number] #### [facility] ([facility]) [address] [place] [address] Potassium [Moles/Vol] 3.8 mmol/L Normal 3.5-5.1 [facility] Comment on above: Performed By: #### L [id number] #### [facility] ([facility]) [address] [place] [address] Sodium [Moles/Vol] 136 mmol/L Normal 136-145 [facility] Comment on above: Performed By: #### L [id number] #### [facility] ([facility]) [address] [place] [address] Urea nitrogen [Mass/Vol] 18 mg/dL Normal 7-25 [facility] Comment on above: Performed By: #### L [id number] #### [facility] ([facility]) [address] [place] [address] UREA NITROGEN/CREATININE (MASS RATIO) IN SER/PLAS 22.5 Normal [facility] Comment on above: Performed By: #### L [id number] #### [facility] ([facility]) [address] [place] [address] MAGNESIUMon 05-10-2023 Magnesium [Mass/Vol] 1.7 mg/dL Low 1.9-2.7 [facility] Comment on above: Performed By: #### L [id number] ####[facility] ([facility])[address] [place] [address] POCT GLUCOSE METER UNSOLICIT ED RESULTSon 05-10-2023 Glucose [Mass/Vol] 119 mg/dL High 70-105 [facility] Comment on above: Order Comment: Waive d Testing in the ED is performed under the ED CLIA certificate #[id number]. Result Comment: [email or web address] Performed By: #### L [id number] #### [facility] ([facility]) [address] [place] [address] Glucose [Mass/Vol] 141 mg/dL High 70-105 [facility] Comment on above: Order Comment: Check aPTT every 6 hours while on heparin infusion, or per protocol. Result Comment: [email or web address] Performed By: #### L [id number] #### [facility] ([facility]) [address] [place] [address] Glucose [Mass/Vol] 162 mg/dL High 70-105 [facility] Comment on above: Order Comment: Waive d Testing in the ED is performed under the ED CLIA certificate #[id number]. Result Comment: [email or web address] Performed By: #### L [id number] #### [facility] ([facility]) [address] [place] [address] Glucose [Mass/Vol] 111 mg/dL High 70-105 [facility] Comment on above: Order Comment: Check aPTT every 6 hours while on heparin infusion, or per protocol. Result Comment: [email or web address] Performed By: #### L [id number] #### [facility] ([facility]) [address] [place] [address] 30on 05-09-2023 30 The patient is Moderately [...] medication and electrolyte replacement as ordered Normal [facility] 30 The patient is Moderately Stable - [...] maintained within prescribed range Outcome: Progressing Normal [facility] BASIC METABOLIC PANELon - Anion gap [Moles/Vol] 10 mmol/L Normal 7-20 [facility] Comment on above: Performed By: #### L [id number] #### [facility] ([facility]) [address] [place] [address] Calcium [Mass/Vol] 9.4 mg/dL Normal 8.6-10.3 [facility] Comment on above: Performed By: #### L [id number] #### [facility] ([facility]) [address] [place] [address] Chloride [Moles/Vol] 98 mmol/L Normal 98-107 [facility] Comment on above: Performed By: #### L [id number] #### [facility] ([facility]) [address] [place] [address] CO2 [Moles/Vol] 31 mmol/L Normal 21-31 [facility] Comment on above: Performed By: #### L [id number] #### [facility] ([facility]) [address] [place] [address] Creatinine [Mass/Vol] 0.90 mg/dL Normal 0.60-1.20 [facility] Comment on above: Performed By: #### L [id number] #### [facility] ([facility]) [address] [place] [address] GLOMERULAR FILTRATION RATE ML/MIN/1.73 SQ M.PREDICTED 72.7 mL/min/1.73m*2 Normal >60.0 [facility] Comment on above: Result Comment: [facility]???s estimated glomerular filtration rate (eGFR) will no [...] group of individuals. Performed By: #### L [id number] #### [facility] ([facility]) [address] [facility] [place] [address] Glucose [Mass/Vol] 102 mg/dL High 70-100 [facility] Comment on above: Performed By: #### L [id number] #### [facility] ([facility]) [address] [place] [address] Potassium [Moles/Vol] 4.0 mmol/L Normal 3.5-5.1 [facility] Comment on above: Performed By: #### L [id number] #### [facility] ([facility]) [address] [place] [address] Sodium [Moles/Vol] 135 mmol/L Low 136-145 [facility] Comment on above: Performed By: #### L [id number] #### [facility] ([facility]) [address] [place] [address] Urea nitrogen [Mass/Vol] 20 mg/dL Normal 7-25 [facility] Comment on above: Performed By: #### L [id number] #### [facility] ([facility] [address] [place] [address] UREA NITROGEN/CREATININE (MASS RATIO) IN SER/PLAS 22.2 Normal [facility] Comment on above: Performed By: #### L [id number] #### [facility] ([facility]) [address] [place] [address] CBCon 05-09-2023 Erythrocyte distribution width (RBC) [Ratio] 15.7 % High 11.5-15.0 [facility] Comment on above: Performed By: #### L [id number] #### [facility] ([facility]) [address] [place] [address] ERYTHROCYTE MEAN CORPUSCULAR HEMOGLOBIN CONCENTRATION (G/DL) BY AUTOMATED 32.6 g/dL Normal 32.0-35.0 [facility] Comment on above: Performed By: #### L [id number] #### [facility] ([facility]) [address] [place] [address] Hematocrit (Bld) [Volume fraction] 39.6 % Normal 36.0-48.0 [facility] Comment on above: Performed By: #### L [id number] #### [facility] ([facility]) [address] [place] [address] Hemoglobin (Bld) [Mass/Vol] 12.9 g/dL Normal 12.0-15.0 [facility] Comment on above: Performed By: #### L [id number] #### [facility] ([facility]) [address] [place] [address] MCH (RBC) [Entitic mass] 28.8 pg Normal 27.0-33.0 [facility] Comment on above: Performed By: #### L [id number] #### [facility] ([facility]) [address] [place] [address] MCV (RBC) [Entitic vol] 88.4 fL Normal 82.0-98.0 [facility] Comment on above: Performed By: #### L [id number] #### [facility] ([facility]) [address] [place] [address] PLATELETS (10*3/UL) IN BLOOD AUTOMATED COUNT 124 10*3/uL Low 150-400 [facility] Comment on above: Performed By: #### L [id number] #### [facility] ([facility]) [address] [place] [address] RBC (Bld) [#/Vol] 4.48 10*6/uL Normal 3.80-5.00 [facility] Comment on above: Performed By: #### L [id number] #### [facility] ([facility]) [address] [place] [address] WBC (Bld) [#/Vol] 4.51 10*3/uL Normal 4.00-10.60 [facility] Comment on above: Performed By: #### L [id number] #### [facility] ([facility]) [address] [place] [address] MAGNESIUMon 05-09-2023 Magnesium [Mass/Vol] 1.9 mg/dL Normal 1.9-2.7 [facility] Comment on above: Performed By: #### L [id number] #### [facility] ([facility]) [address] [place] [address] POCT GLUCOSE METER UNSOLICIT ED RESULTSon 05-09-2023 Glucose [Mass/Vol] 145 mg/dL High 70-105 [facility] Comment on above: Order Comment: Waive d Testing in the ED is performed under the ED CLIA certificate #[id number]. Result Comment: [email or web address] Performed By: #### L [id number] #### [facility] ([facility]) [address] [place] [address] Glucose [Mass/Vol] 118 mg/dL High 70-105 [facility] Comment on above: Order Comment: Waive d Testing in the ED is performed under the ED CLIA certificate #[id number]. Result Comment: [email or web address] Performed By: #### L [id number] #### [facility] ([facility]) [address] [place] [address] Glucose [Mass/Vol] 152 mg/dL High 70-105 [facility] Comment on above: Order Comment: Waive d Testing in the ED is performed under the ED CLIA certificate #[id number]. Result Comment: [email or web address] Performed By: #### L [id number] #### [facility] ([facility]) [address] [facility] [place] [address] Glucose [Mass/Vol] 105 mg/dL Normal 70-105 [facility] Comment on above: Order Comment: Check aPTT every 6 hours while on heparin infusion, or per protocol. Result Comment: [email or web address] Performed By: #### L [id number] #### [facility] ([facility]) [address] [facility] [place] [address] 30on 05-08-2023 30 The patient is Moderately Stable - Low risk of patient condition declining or worsening The patient's goals for the shift include comfort The clinical goals for the shift include safety Normal [facility] 30 The patient is Moderately Stable - [...] and maintained or improved Outcome: Progressing Normal [facility] APTTon 05-08-2023 ACTIVATED PARTIAL THROMBOPLASTIN TIME IN PPP BY COAGULATION ASSAY 36.7 Seconds High 25.0-35.0 [facility] Comment on above: Result Comment: Clin ical significance of the APTT is questionable in the presence of heparin. Performed By: #### L [id number] #### [facility] [address] [place] [address] BASIC METABOLIC PANEL 04-20 Anion gap [Moles/Vol] 10 mmol/L Normal 7-20 [facility] Comment on above: Performed By: #### L [id number] #### [facility] ([facility]) [address] [place] [address] Calcium [Mass/Vol] 9.9 mg/dL Normal 8.6-10.3 [facility] Comment on above: Performed By: #### L [id number] #### [facility] ([facility]) [address] [place] [address] Chloride [Moles/Vol] 99 mmol/L Normal 98-107 [facility] Comment on above: Performed By: #### L [id number] #### [facility] ([facility]) [address] [place] [address] CO2 [Moles/Vol] 34 mmol/L High - [facility] Comment on above: Performed By: #### L [id number] #### [facility] ([facility]) [address] [place] [address] Creatinine [Mass/Vol] 0.90 mg/dL Normal 0.60-1.20 [facility] Comment on above: Performed By: #### L [id number] #### [facility] ([facility]) [address] [place] [address] GLOMERULAR FILTRATION RATE ML/MIN/1.73 SQ M.PREDICTED 72.7 mL/min/1.73m*2 Normal >60.0 [facility] Comment on above: Result Comment: [facility]???s estimated glomerular filtration rate (eGFR) will no [...] of individuals. Performed By: #### L [id number] #### [facility] ([facility]) [address] [place] [address] Glucose [Mass/Vol] 94 mg/dL Normal 70-100 [facility] Comment on above: Performed By: #### L [id number] #### [facility] ([facility]) [address] [place] [address] Potassium [Moles/Vol] 3.5 mmol/L Normal 3.5-5.1 [facility] Comment on above: Performed By: #### L [id number] #### [facility] ([facility]) [address] [place] [address] Sodium [Moles/Vol] 139 mmol/L Normal 136-145 [facility] Comment on above: Performed By: #### L [id number] #### [facility] ([facility]) [address] [place] [address] Urea nitrogen [Mass/Vol] 18 mg/dL Normal 7-25 [facility] Comment on above: Performed By: #### L [id number] #### [facility] ([facility]) [address] [place] [address] UREA NITROGEN/CREATININE (MASS RATIO) IN SER/PLAS 20.0 Normal [facility] Comment on above: Performed By: #### L [id number] #### [facility] ([facility]) [address] [place] [address] MAGNESIUMon 05-08-2023 Magnesium [Mass/Vol] 1.3 mg/dL Low 1.9-2.7 [facility] Comment on above: Performed By: #### L [id number] ####[facility] ([facility] [place] [address] POCT GLUCOSE METER UNSOLICIT ED RESULTSon 05-08-2023 Glucose [Mass/Vol] 121 mg/dL High 70-105 [facility] Comment on above: Order Comment: Waive d Testing in the ED is performed under the ED CLIA certificate #[id number]. Result Comment: [email or web address] Performed By: #### L [id number] #### [facility] ([facility]) [address] [place] [address] Glucose [Mass/Vol] 110 mg/dL High 70-105 [facility] Comment on above: Order Comment: Waive d Testing in the ED is performed under the ED CLIA certificate #[id number]. Result Comment: [email or web address] Performed By: #### L [id number] ####[facility] ([facility])[address] [place] [address] Glucose [Mass/Vol] 150 mg/dL High 70-105 [facility] Comment on above: Order Comment: Waive d Testing in the ED is performed under the ED CLIA certificate #[id number]. Result Comment: [email or web address] Performed By: #### L [id number] ####[facility] ([facility])[address] [place] [address] Glucose [Mass/Vol] 118 mg/dL High 70-105 [facility] Comment on above: Order Comment: Waive d Testing in the ED is performed under the ED CLIA certificate #[id number]. Result Comment: [email or web address] Performed By: #### L [id number] ####[facility] ([facility])[address] [place] [address] 30on 05-07-2023 30 The patient is Moderately Stable - Low risk of patient condition declining or worsening The patient's goals for the shift include comfort The clinical goals for the shift include safety Normal [facility] 30 Problem: Pain - Adul t Goal: [...] shift include cardiac cath without complications Normal [facility] APTTon 05-07-2023 ACTIVATED PARTIAL THROMBOPLASTIN TIME IN PPP BY COAGULATION ASSAY 123.2 Seconds High 25.0-35.0 [facility] Comment on above: Order Comment: Check aPTT every 6 hours while on heparin infusion, or per protocol. Result Comment: Clin ical significance of the APTT is questionable in the presence of heparin. Performed By: #### L [id number] ####[facility] ([facility])[address] [place] [address] BASIC METABOLIC PANELon 04-19 Anion gap [Moles/Vol] 11 mmol/L Normal 7-20 [facility] Comment on above: Performed By: #### L [id number] ####[facility] ([facility])[address] [place] [address] Calcium [Mass/Vol] 9.7 mg/dL Normal 8.6-10.3 [facility] Comment on above: Performed By: #### L [id number] ####[facility] ([facility])[address] [place] [address] Chloride [Moles/Vol] 98 mmol/L Normal 98-107 [facility] Comment on above: Performed By: #### L [id number] ####[facility] ([facility])[address] [place] [address] CO2 [Moles/Vol] 32 mmol/L High 21-31 [facility] Comment on above: Performed By: #### L [id number] ####[facility] ([facility])[address] [place] [address] Creatinine [Mass/Vol] 0.86 mg/dL Normal 0.60-1.20 [facility] Comment on above: Performed By: #### L [id number] ####[facility] ([facility])[address] [place] [address] GLOMERULAR FILTRATION RATE ML/MIN/1.73 SQ M.PREDICTED 76.8 mL/min/1.73m*2 Normal >60.0 [facility] Comment on above: Result Comment: [facility]???s estimated glomerular filtration rate (eGFR) will no [...] of individuals. Performed By: #### L [id number] ####[facility] ([facility])[address] [place] [address] Glucose [Mass/Vol] 110 mg/dL High 70-100 [facility] Comment on above: Performed By: #### L [id number] ####[facility] ([facility])[address] [place] [address] Potassium [Moles/Vol] 3.4 mmol/L Low 3.5-5.1 [facility] Comment on above: Performed By: #### L [id number] ####[facility] ([facility])[address] [place] [address] Sodium [Moles/Vol] 138 mmol/L Normal 136-145 [facility] Comment on above: Performed By: #### L [id number] ####[facility] ([facility])[address] [place] [address] Urea nitrogen [Mass/Vol] 14 mg/dL Normal 7-25 [facility] Comment on above: Performed By: #### L [id number] ####[facility] ([facility])[address] [place] [address] UREA NITROGEN/CREATININE (MASS RATIO) IN SER/PLAS 16.3 Normal [facility] Comment on above: Performed By: #### L [id number] ####[facility] ([facility])[address] [place] [address] CBCon 05-07-2023 Erythrocyte distribution width (RBC) [Ratio] 15.7 % High 11.5-15.0 [facility] Comment on above: Performed By: #### L [id number] #### [facility] ([facility]) [address] [place] [address] ERYTHROCYTE MEAN CORPUSCULAR HEMOGLOBIN CONCENTRATION (G/DL) BY AUTOMATED 32.4 g/dL Normal 32.0-35.0 [facility] Comment on above: Performed By: #### L [id number] #### [facility] ([facility]) [address] [facility] [place] [address] Hematocrit (Bld) [Volume fraction] 38.3 % Normal 36.0-48.0 [facility] Comment on above: Performed By: #### L [id number] #### [facility] ([facility]) [address] [place] [address] Hemoglobin (Bld) [Mass/Vol] 12.4 g/dL Normal 12.0-15.0 [facility] Comment on above: Performed By: #### L [id number] #### [facility] ([facility]) [address] [place] [address] MCH (RBC) [Entitic mass] 28.6 pg Normal 27.0-33.0 [facility] Comment on above: Performed By: #### L [id number] #### [facility] ([facility]) [address] [place] [address] MCV (RBC) [Entitic vol] 88.2 fL Normal 82.0-98.0 [facility] Comment on above: Performed By: #### L [id number] #### [facility] ([facility]) [address] [place] [address] PLATELETS (10*3/UL) IN BLOOD AUTOMATED COUNT 121 10*3/uL Low 150-400 [facility] Comment on above: Performed By: #### L [id number] #### [facility] ([facility]) [address] [place] [address] RBC (Bld) [#/Vol] 4.34 10*6/uL Normal 3.80-5.00 [facility] Comment on above: Performed By: #### L [id number] #### [facility] ([facility]) [address] [place] [address] WBC (Bld) [#/Vol] 4.25 10*3/uL Normal 4.00-10.60 [facility] Comment on above: Performed By: #### L [id number] #### [facility] ([facility]) [address] [place] [address] HPon 05-07-2023 HP H&P reviewed. The patient was examined and there are no changes to the H&P. Regina Stark MD, MPH, FACC, [facility], [facility] Interventional Cardiology Pager Email: [email or web address] Normal [facility] POCT GLUCOSE METER UNSOLICIT ED RESULTSon 05-07-2023 Glucose [Mass/Vol] 125 mg/dL High 70-105 [facility] Comment on above: Order Comment: Waive d Testing in the ED is performed under the ED CLIA certificate #[id number]. Result Comment: [email or web address] Performed By: #### L [id number] ####[facility] ([facility])[address] [place] [address] Glucose [Mass/Vol] 101 mg/dL Normal 70-105 [facility] Comment on above: Order Comment: Waive d Testing in the ED is performed under the ED CLIA certificate #[id number]. Result Comment: [email or web address] Performed By: #### L [id number] ####[facility] ([facility])[address] [place] [address] 30on 05-06-2023 30 The patient is Moderately [...] and behaviors that affect risk of falls [place] fall precautions as indicated by assessment Educate [...] and prevent overall improvement and discharge Normal [facility] 30 Daily Case Managemen t Update Multidisciplinary rounds have been completed. Barriers to Discharge: Pending clinical course and improvement in clinical condition. Patient admitted with chronic heart failure transferred from [facility]. Plan for coronary angiography tomorrow per Cardiology. Diet: Dietary Orders (From admission, onward) Start Ordered 05/07/23 0001 Diet NPO Diet effective midnight Comments: Sips with medications Question: Reason for NPO: Answer: Operation/Procedure 05/06/23 1502 05/06/23 1515 Special Kitchen Request Once Comments: Pls send for lunch tray now (pt did not like/eat any of the generated tray) chicken salad sandwich on wheat, peach yi yogurt, diet cola 05/06/23 1516 05/05/23 2154 Regular Diet Diabetic Female (carb 45g/meal) Diet effective now Question Answer Comment Room Service? Yes Carbohydrate restriction: Diabetic Female (carb 45g/meal) 05/05/23 215 Physician Expected Discharge Date: Discharge Delays: PT Six Click Score: 23 OT Six Click Score: PT Recommendations: OT Recommendations: New Consults: Normal [facility] 30 Problem: Pain - Adul t Goal: [...] and behaviors that affect risk of falls [place] fall precautions as indicated by assessment Educate [...] for the shift include hemodynamically stable Normal [facility] APTTon 05-06-2023 ACTIVATED PARTIAL THROMBOPLASTIN TIME IN PPP BY COAGULATION ASSAY 106.0 Seconds High 25.0-35.0 [facility] Comment on above: Order Comment: Check aPTT every 6 hours while on heparin infusion, or per protocol. Result Comment: Clin ical significance of the APTT is questionable in the presence of heparin. Performed By: #### L [id number] ####[facility] ([facility])[address] [place] [address] ACTIVATED PARTIAL THROMBOPLASTIN TIME IN PPP BY COAGULATION ASSAY 104.8 Seconds High 25.0-35.0 [facility] Comment on above: Order Comment: Check aPTT every 6 hours while on heparin infusion, or per protocol. Result Comment: Clin ical significance of the APTT is questionable in the presence of heparin. Performed By: #### L [id number] ####[facility] ([facility])[address] [place] [address] ACTIVATED PARTIAL THROMBOPLASTIN TIME IN PPP BY COAGULATION ASSAY 134.0 Seconds Critically high 25.0-35.0 [facility] Comment on above: Order Comment: Check aPTT every 6 hours while on heparin infusion, or per protocol. Result Comment: Clin ical significance of the APTT is questionable in the presence of heparin. Performed By: #### L [id number] #### [facility] ([facility]) [address] [place] [address] ACTIVATED PARTIAL THROMBOPLASTIN TIME IN PPP BY COAGULATION ASSAY 143.7 Seconds Critically high 25.0-35.0 [facility] Comment on above: Order Comment: Check aPTT every 6 hours while on heparin infusion, or per protocol. Result Comment: Clin ical significance of the APTT is questionable in the presence of heparin. Performed By: #### L [id number] #### [facility] ([facility]) [address] [place] [address] COMPREHENSIVE METABOLIC PANE Shamir 05-06-2023 Albumin [Mass/Vol] 3.6 g/dL Normal 3.5-5.7 [facility] Comment on above: Performed By: #### L [id number] ####[facility] ([facility])[address] [place] [address] ALP [Catalytic activity/Vol] 41 U/L Normal 34-104 [facility] Comment on above: Performed By: #### L [id number] ####[facility] ([facility])[address] [place] [address] ALT [Catalytic activity/Vol] 24 U/L Normal 7-52 [facility] Comment on above: Performed By: #### L [id number] ####[facility] ([facility])[address] [place] [address] Anion gap [Moles/Vol] 14 mmol/L Normal 7-20 [facility] Comment on above: Performed By: #### L [id number] ####[facility] ([facility])[address] [place] [address] AST [Catalytic activity/Vol] 42 U/L High 13-39 [facility] Comment on above: Performed By: #### L [id number] ####[facility] ([facility])[address] [place] [address] Bilirubin [Mass/Vol] 1.3 mg/dL High 0.3-1.0 [facility] Comment on above: Performed By: #### L [id number] ####[facility] ([facility])[address] [place] [address] Calcium [Mass/Vol] 9.7 mg/dL Normal 8.6-10.3 [facility] Comment on above: Performed By: #### L [id number] ####[facility] ([facility])[address] [place] [address] Chloride [Moles/Vol] 101 mmol/L Normal 98-107 [facility] Comment on above: Performed By: #### L [id number] ####[facility] ([facility])[address] [place] [address] CO2 [Moles/Vol] 27 mmol/L Normal 21-31 [facility] Comment on above: Performed By: #### L [id number] ####[facility] ([facility])[address] [place] [address] Creatinine [Mass/Vol] 0.74 mg/dL Normal 0.60-1.20 [facility] Comment on above: Performed By: #### L [id number] ####[facility] ([facility])[address] [place] [address] GLOMERULAR FILTRATION RATE ML/MIN/1.73 SQ M.PREDICTED 92.0 mL/min/1.73m*2 Normal >60.0 [facility] Comment on above: Result Comment: [facility]???s estimated glomerular filtration rate (eGFR) will no [...] of individuals. Performed By: #### L [id number] ####[facility] ([facility])[address] [place] [address] Glucose [Mass/Vol] 101 mg/dL High 70-100 [facility] Comment on above: Performed By: #### L [id number] ####[facility] ([facility])[address] [place] [address] Potassium [Moles/Vol] 3.6 mmol/L Normal 3.5-5.1 [facility] Comment on above: Performed By: #### L [id number] ####[facility] ([facility])[address] [place] [address] Protein [Mass/Vol] 7.2 g/dL Normal 6.0-8.3 [facility] Comment on above: Performed By: #### L [id number] ####[facility] ([facility])[address] [place] [address] Sodium [Moles/Vol] 138 mmol/L Normal 136-145 [facility] Comment on above: Performed By: #### L [id number] ####[facility] ([facility])[address] [place] [address] Urea nitrogen [Mass/Vol] 13 mg/dL Normal 7-25 [facility] Comment on above: Performed By: #### L [id number] ####[facility] ([facility])[address] [place] [address] UREA NITROGEN/CREATININE (MASS RATIO) IN SER/PLAS 17.6 Normal [facility] Comment on above: Performed By: #### L [id number] ####[facility] ([place])[address] [place] [address] CONSULTon 05-06-2023 CONSULT -- Attestation signed by [...] obstructive sleep apnea who was admitted to [facility] with sudden onset shortness of breath. Reports that she woke up suddenly from sleep feeling short of breath. She initially thought that this was a COVID infection. In the ED at [place], she was noted to be in atrial [...] branch block pattern. Patient was transferred to [facility] for further evaluation.Patient denies any history of [...] Value Ventricular Rate 81 Atrial Rate 81 LA Interval 208 QRS DURATION 178 QT Interval 442 QTC CALCULATION(BAZETT) 513 P Jadwin 34 R-Jadwin -48 T Wave Jadwin 101 Impression Normal sinus rhythm Left axis deviation Left bundle branch block Abnormal ECG When compared with ECG of 13-FEB-2013 09:22, No significant change was found Confirmed by Jose Luis Cronin ([id number]) on 05/05/2023 9:15:31 PM Lab Results Component Value Date TROPONINI 0. (more content not included)... Normal [facility] HPon 05-06-2023 HP -- Attestation signed by [...] obstructive sleep apnea who was admitted to [facility] with sudden onset shortness of breath. Reports that she woke up suddenly from sleep feeling short of breath. She initially thought that this was a COVID infection. In the ED at [place], she was noted to be in atrial [...] branch block pattern. Patient was transferred to [facility] for further evaluation.Patient denies any history of [...] Value Ventricular Rate 81 Atrial Rate 81 LA Interval 208 QRS DURATION 178 QT Interval 442 QTC CALCULATION(BAZETT) 513 P Jadwin 34 R-Jadwin -48 T Wave Jadwin 101 Impression Normal sinus rhythm Left axis deviation Left bundle branch block Abnormal ECG When compared with ECG of 13-FEB-2013 09:22, No significant change was found Confirmed by Jose Luis Cronin ([id number]) on 05/05/2023 9:15:31 PM Lab Results Component Value Date TROPONINI 0. (more content not included)... Normal [facility] MAGNESIUMon 05-06-2023 Magnesium [Mass/Vol] 1.5 mg/dL Low 1.9-2.7 [facility] Comment on above: Performed By: #### L [id number] #### [facility] ([facility]) [address] [place] [address] PLATELET COUNTon 05-06-2023 PLATELETS (10*3/UL) IN BLOOD AUTOMATED COUNT 121 10*3/uL Low 150-400 [facility] Comment on above: Performed By: #### L [id number] #### [facility] ([facility]) [address] [place] [address] POCT GLUCOSE METER UNSOLICIT ED RESULTSon 05-06-2023 Glucose [Mass/Vol] 105 mg/dL Normal 70-105 [facility] Comment on above: Order Comment: Waive d Testing in the ED is performed under the ED CLIA certificate #[id number]. Result Comment: [email or web address] Performed By: #### L [id number] ####[facility] ([facility])[address] [place] [address] Glucose [Mass/Vol] 116 mg/dL High 70-105 [facility] Comment on above: Order Comment: Check aPTT every 6 hours while on heparin infusion, or per protocol. Result Comment: [email or web address] Performed By: #### L [id number] #### [facility] ([facility]) [address] [place] [address] Glucose [Mass/Vol] 131 mg/dL High 70-105 [facility] Comment on above: Order Comment: Waive d Testing in the ED is performed under the ED CLIA certificate #[id number]. Result Comment: [email or web address] Performed By: #### L [id number] #### [facility] ([facility]) [address] [place] [address] Glucose [Mass/Vol] 100 mg/dL Normal 70-105 [facility] Comment on above: Order Comment: Waive d Testing in the ED is performed under the ED CLIA certificate #[id number]. Result Comment: [email or web address] Performed By: #### L [id number] ####[facility] ([place] [facility])[address] [place] [address] T4, FREEon 05-06-2023 THYROXINE (T4) FREE (NG/DL) IN SER/PLAS 1.08 ng/dL Normal 0.71-1.85 [facility] Comment on above: Performed By: #### L [id number] ####[facility] ([facility])[address] [place] [address] TROPONIN Ion 05-06-2023 Troponin I.cardiac [Mass/Vol] 0.01 ng/mL Normal 0.00-0.04 [facility] Comment on above: Performed By: #### L [id number] ####[facility] ([facility])[address] [place] [address] TSH3 REFLEX TO FT4on 024 THYROTROPIN (MIU/L) IN SER/PLAS BY DETECTION LIMIT <= 0.05 MIU/L 5.84 mIU/L High 0.34-5.60 [facility] Comment on above: Performed By: #### L [id number] ####[facility] ([facility] [place] [address] 30on 05-05-2023 30 The patient is Moderately [...] and behaviors that affect risk of falls [place] fall precautions as indicated by assessment Educate [...] and prevent overall improvement and discharge Normal [facility] B-TYPE NATRIURETIC PEPTIDEon 05-05-2023 Natriuretic peptide B (Bld) [Mass/Vol] 97 pg/mL Normal 0-100 [facility] Comment on above: Performed By: #### L [id number] #### [facility] ([facility]) [address] [place] [address] BASIC METABOLIC PANELon 04-19 Anion gap [Moles/Vol] 11 mmol/L Normal 7-20 [facility] Comment on above: Performed By: #### L [id number] #### [facility] ([facility]) [address] [place] [address] Calcium [Mass/Vol] 9.5 mg/dL Normal 8.6-10.3 [facility] Comment on above: Performed By: #### L [id number] #### [facility] ([facility]) [address] [place] [address] Chloride [Moles/Vol] 101 mmol/L Normal 98-107 [facility] Comment on above: Performed By: #### L [id number] #### [facility] ([facility] [address] [place] [address] CO2 [Moles/Vol] 30 mmol/L Normal 21-31 [facility] Comment on above: Performed By: #### L [id number] #### [facility] ([facility]) [address] [place] [address] Creatinine [Mass/Vol] 0.69 mg/dL Normal 0.60-1.20 [facility] Comment on above: Performed By: #### L [id number] #### [facility] ([facility]) [address] [place] [address] GLOMERULAR FILTRATION RATE ML/MIN/1.73 SQ M.PREDICTED 98.7 mL/min/1.73m*2 Normal >60.0 [facility] Comment on above: Result Comment: [facility]???s estimated glomerular filtration rate (eGFR) will no [...] of individuals. Performed By: #### L [id number] #### [facility] ([facility]) [address] [place] [address] Glucose [Mass/Vol] 90 mg/dL Normal 70-100 [facility] Comment on above: Performed By: #### L [id number] #### [facility] ([facility]) [address] [place] [address] Potassium [Moles/Vol] 3.8 mmol/L Normal 3.5-5.1 [facility] System Comment on above: Performed By: #### L [id number] #### [facility] ([facility] [address] [place] [address] Sodium [Moles/Vol] 138 mmol/L Normal 136-145 [facility] Comment on above: Performed By: #### L [id number] #### [facility] ([facility] [address] [place] [address] Urea nitrogen [Mass/Vol] 13 mg/dL Normal 7-25 [facility] Comment on above: Performed By: #### L [id number] #### [facility] ([facility]) [address] [place] [address] UREA NITROGEN/CREATININE (MASS RATIO) IN SER/PLAS 18.8 Normal [facility] Comment on above: Performed By: #### L [id number] #### [facility] ([facility]) [address] [place] [address] CBCon 05-05-2023 Erythrocyte distribution width (RBC) [Ratio] 15.7 % High 11.5-15.0 [facility] Comment on above: Performed By: #### L [id number] #### [facility] ([facility]) [address] [place] [address] ERYTHROCYTE MEAN CORPUSCULAR HEMOGLOBIN CONCENTRATION (G/DL) BY AUTOMATED 32.6 g/dL Normal 32.0-35.0 [facility] Comment on above: Performed By: #### L [id number] #### [facility] ([facility]) [address] [place] [address] Hematocrit (Bld) [Volume fraction] 39.9 % Normal 36.0-48.0 [facility] Comment on above: Performed By: #### L [id number] #### [facility] ([facility]) [address] [place] [address] Hemoglobin (Bld) [Mass/Vol] 13.0 g/dL Normal 12.0-15.0 [facility] Comment on above: Performed By: #### L [id number] #### [facility] ([facility]) [address] [place] [address] MCH (RBC) [Entitic mass] 28.9 pg Normal 27.0-33.0 [facility] Comment on above: Performed By: #### L [id number] #### [facility] ([facility]) [address] [place] [address] MCV (RBC) [Entitic vol] 88.7 fL Normal 82.0-98.0 [facility] Comment on above: Performed By: #### L [id number] #### [facility] ([facility]) [address] [place] [address] PLATELETS (10*3/UL) IN BLOOD AUTOMATED COUNT 139 10*3/uL Low 150-400 [facility] Comment on above: Performed By: #### L [id number] #### [facility] ([facility]) [address] [place] [address] RBC (Bld) [#/Vol] 4.50 10*6/uL Normal 3.80-5.00 [facility] Comment on above: Performed By: #### L [id number] #### [facility] ([facility]) [address] [place] [address] WBC (Bld) [#/Vol] 5.73 10*3/uL Normal 4.00-10.60 [facility] Comment on above: Performed By: #### L [id number] #### [facility] ([facility]) [address] [place] [address] MAGNESIUMon 05-05-2023 Magnesium [Mass/Vol] 1.4 mg/dL Low 1.9-2.7 [facility] Comment on above: Performed By: #### L [id number] #### [facility] ([facility]) [address] [place] [address] POCT GLUCOSE METER UNSOLICIT ED RESULTSon 05-05-2023 Glucose [Mass/Vol] 87 mg/dL Normal 70-105 [facility] Comment on above: Order Comment: Waive d Testing in the ED is performed under the ED CLIA certificate #[id number]. Result Comment: [email or web address] Performed By: #### L [id number] #### [facility] ([facility]) [address] [place] [address] TROPONIN Ion 05-05-2023 Troponin I.cardiac [Mass/Vol] 0.03 ng/mL Normal 0.00-0.04 [facility] Comment on above: Performed By: #### L [id number] ####[facility] ([facility])[address] [place] [address] CBC AUTO DIFFon 02-21-2022 BASO # 0.0 103/ul Normal 0.0-0.1 [facility] Comment on above: Performed By: #### C BC #### [facility] [address] [address] [address] Rivas Zhao Basophils/100 WBC (Bld) 0.7 % Normal 0.2-2.0 [facility] Comment on above: Performed By: #### C BC #### [facility] [address] [place] [address] Dr. Rivas Zhao EO # 0.2 103/ul Normal 0.0-0.7 [facility] Comment on above: Performed By: #### C BC #### [facility] [address] [place] [address] Dr. Rivas Zhao Eosinophils/100 WBC (Bld) 3.4 % Normal 0.9-7.0 [facility] Comment on above: Performed By: #### C BC #### [facility] [address] [place] [address] Dr. Rivas Zhao Erythrocyte distribution width (RBC) [Ratio] 14.8 % Normal 11.0-15.0 [facility] Comment on above: Performed By: #### C BC #### [facility] [address] [place] [address] Dr. Rivas Zhao Hematocrit (Bld) [Volume fraction] 38.4 % Normal 36.0-48.0 [facility] Comment on above: Performed By: #### C BC #### [facility] [address] [place] [address] Dr. Rivas Zhao Hemoglobin (Bld) [Mass/Vol] 12.7 g/dL Normal 12.0-16.0 [facility] Comment on above: Performed By: #### C BC #### [facility] [address] [place] [address] Dr. Rivas Zhao IG # 0.01 10e3/ul Normal 0.00-0.03 [facility] Comment on above: Performed By: #### C BC #### [facility] [address] [place] [address] Dr. Rivas Zhao IG % 0.2 % Normal 0.0-0.5 [facility] Comment on above: Performed By: #### C BC #### [facility] [address] [place] [address] Dr. Rivas Zhao LYMPH # 1.5 103/ul Normal 1.2-3.8 [facility] Comment on above: Performed By: #### C BC #### [facility] [address] [place] [address] Dr. Rivas Zhao Lymphocytes/100 WBC (Bld) 34.9 % Normal 20.5-60.0 [facility] Comment on above: Performed By: #### C BC #### [facility] [address] [place] [address] Dr. Rivas Zhao MANUAL DIFF REQ NO Normal [facility] Comment on above: Performed By: #### C BC #### [facility] [address] [place] [address] Dr. Rivas Zhao MCH (RBC) [Entitic mass] 30.2 pg Normal 26.7-34.0 [facility] Comment on above: Performed By: #### C BC #### [facility] [address] [place] [address] Dr. Rivas Zhao MCHC (RBC) [Mass/Vol] 33.1 g/dL Normal 29.9-35.2 [facility] Comment on above: Performed By: #### C BC #### [facility] [address] [place] [address] Dr. Rivas Zhoa MCV (RBC) [Entitic vol] 91.2 fL Normal 81.0-99.0 [facility] Comment on above: Performed By: #### C BC #### [facility] [address] [address] [address] Rivas Zhao MONO # 0.3 103/ul Normal 0.3-0.8 [facility] Comment on above: Performed By: #### C BC #### [facility] [address] [address] [address] Rivas Zhao Monocytes/100 WBC (Bld) 5.9 % Normal 1.7-12.0 [facility] Comment on above: Performed By: #### C BC #### [facility] [address] [place] [address] Dr. Rivas Zhao NEUT # 2.4 103/ul Normal 1.4-6.5 [facility] Comment on above: Performed By: #### C BC #### [facility] [address] [place] [address] Dr. Rivas Zhao Neutrophils/100 WBC (Bld) 54.9 % Normal 43.0-75.0 [facility] Comment on above: Performed By: #### C BC #### [facility] [address] [place] [address] Dr. Rivas Zhao Platelet mean volume (Bld) [Entitic vol] 11.9 fL Normal 9.5-13.5 [facility] Comment on above: Performed By: #### C BC #### [facility] [address] [place] [address] Dr. Rivas Zhao PLT 107 103/ul Critically low 150-450 [facility] Comment on above: Performed By: #### C BC #### [facility] [address] [place] [address] Dr. Rivas Zhao RBC 4.21 106/ul Normal 4.20-5.40 [facility] Comment on above: Performed By: #### C BC #### [facility] [address] [place] [address] Dr. Rivas Zhao WBC 4.4 103/ul Normal 4.0-11.0 [facility] Comment on above: Performed By: #### C BC #### [facility] [address] [place] [address] Dr. Rivas Zhao GLYCOHEMOGLOBIN A1Con 2021 ADA RECOMMENDATION SEE BELOW Normal [facility] Comment on above: Result Comment: ADA RECOMMENDED LIMIT 4.0 - 6.0 ADA THERAPEUTIC TARGET < 7.0 ACTION SUGGESTED > 7.0 Performed By: #### A 1C #### [facility] [address] [place] [address] Dr. Rivas Zhao Glucose [Mass/Vol] 117 mg/dL Normal [facility] Comment on above: Performed By: #### A 1C #### [facility] [address] [address] [address] Rivas Zhao HbA1c (Bld) [Mass fraction] 5.7 % Normal 4.5-6.2 [facility] Comment on above: Performed By: #### A 1C #### [facility] [address] [place] [address] Dr. Rivas Zhao LIPID PROFILEon 02-21-2022 CHOL-HDL RATIO NORM SEE BELOW Normal [facility] Comment on above: Result Comment: 3.3 - 4.4 LOW RISK 4.4 - 7.1 AVERAGE RISK 7.1 - 11.0 MODERATE RISK >11.0 HIGH RISK Performed By: #### L IPID, CMP #### [facility] [address] [place] [address] Dr. Rivas Zhao Cholesterol [Mass/Vol] 160 mg/dL Normal <=200 [facility] Comment on above: Performed By: #### L IPID, CMP #### [facility] [address] [address] [address] Rivas Zhao Cholesterol in HDL [Mass/Vol] 49 mg/dL Normal 40-60 [facility] Comment on above: Performed By: #### L IPID, CMP #### [facility] [address] [place] [address] Dr. Rivas Zhao Cholesterol in LDL [Mass/Vol] 96.0 mg/dL Normal [facility] Comment on above: Performed By: #### L IPID, CMP #### [facility] [address] [place] [address] Dr. Rivas Zhao Cholesterol.total/Ch olesterol in HDL [Mass ratio] 3.3 {ratio} Normal [facility] Comment on above: Performed By: #### L IPID, CMP #### [facility] [address] [address] [address] Rivas Zhao HDL NORMAL > or = 60 mg/dl - LO W CARDIOVASCULAR RISK <40 mg/dl - HIGH CARDIOVASCULAR RISK Normal [facility] Comment on above: Performed By: #### L IPID, CMP #### [facility] [address] [address] [address] Rivas Zhao LDL CALC NORMAL SEE BELOW Normal [facility] Comment on above: Result Comment: <100 mg/dl OPTIMAL 100 - 129 mg/dl NEAR OR ABOVE OPTIMAL 130 - 159 mg/dl BORDERLINE HIGH 160 - 189 mg/dl HIGH >190 mg/dl VERY HIGH Performed By: #### L IPID, CMP #### [facility] [address] [address] [address] Rivas Zhao Triglyceride [Mass/Vol] 75 mg/dL Normal <=150 [facility] Comment on above: Performed By: #### L IPID, CMP #### [facility] [address] [address] [address] Rivas Zhao VLDL CALC 15.0 mg/dL Normal [facility] Comment on above: Performed By: #### L IPID, CMP #### [facility] [address] [address] [address] Rivas Zhao PROF 14(COMP METB)on 022 Albumin [Mass/Vol] 3.0 g/dL Critically low 3.4-5.0 [facility] Comment on above: Performed By: #### L IPID, CMP #### [facility] [address] [address] [address] Rivas Zhao Albumin/Globulin [Mass ratio] 0.6 {ratio} Normal [facility] Comment on above: Performed By: #### L IPID, CMP #### [facility] [address] [address] [address] Rivas Zhao ALP [Catalytic activity/Vol] 74 U/L Normal 46-116 [facility] Comment on above: Performed By: #### L IPID, CMP #### [facility] [address] [address] [address] Rivas Zhao ALT [Catalytic activity/Vol] 59 U/L Normal 14-59 [facility] Comment on above: Performed By: #### L IPID, CMP #### [facility] [address] [address] [address] Rivas Zhao Anion gap [Moles/Vol] 9.2 mmol/L Normal [facility] Comment on above: Performed By: #### L IPID, CMP #### [facility] [address] [address] [address] Rivas Zhao AST [Catalytic activity/Vol] 65 U/L Critically high 15-37 [facility] Comment on above: Performed By: #### L IPID, CMP #### [facility] [address] [address] [address] Rivas Zhao Bilirubin [Mass/Vol] 1.1 mg/dL Critically high 0.2-1.0 [facility] Comment on above: Performed By: #### L IPID, CMP #### [facility] [address] [address] [address] Rivas Zhao Calcium [Mass/Vol] 8.8 mg/dL Normal 8.5-10.1 [facility] Comment on above: Performed By: #### L IPID, CMP #### [facility] [address] [address] [address] Rivas Zhao Chloride [Moles/Vol] 102 mmol/L Normal 98-107 [facility] Comment on above: Performed By: #### L IPID, CMP #### [facility] [address] [address] [address] Rivas Zhao CO2 [Moles/Vol] 32.5 mmol/L Critically high 21.0-32.0 [facility] Comment on above: Performed By: #### L IPID, CMP #### [facility] [address] [address] [address] Rivas Zhao Creatinine [Mass/Vol] 0.76 mg/dL Normal 0.55-1.02 [facility] Comment on above: Performed By: #### L IPID, CMP #### [facility] [address] [place] [address] Dr. Rivas Zhao EGFR-AF EMIRATI >60 Normal >=60 [facility] Comment on above: Performed By: #### L IPID, CMP #### [facility] [address] [address] [address] Rivas Zhao EGFR-NON AF EMIRATI >60 Normal >=60 [facility] Comment on above: Performed By: #### L IPID, CMP #### [facility] [address] [address] [address] Rivas Zhao Globulin (S) [Mass/Vol] 4.7 g/dL Normal [facility] Comment on above: Performed By: #### L IPID, CMP #### [facility] [address] [place] [address] Dr. Rivas Zhao Glucose [Mass/Vol] 109 mg/dL Critically high 74-106 [facility] Comment on above: Performed By: #### L IPID, CMP #### [facility] [address] [address] [address] Rivas Zhao Potassium [Moles/Vol] 3.7 mmol/L Normal 3.5-5.1 [facility] Comment on above: Performed By: #### L IPID, CMP #### [facility] [address] [address] [address] Rivas Zhao Protein [Mass/Vol] 7.7 g/dL Normal 6.4-8.2 [facility] Comment on above: Performed By: #### L IPID, CMP #### [facility] [address] [address] [address] Rivas Zhao Sodium [Moles/Vol] 140 mmol/L Normal 136-145 [facility] Comment on above: Performed By: #### L IPID, CMP #### [facility] [address] [address] [address] Rivas Zhao Urea nitrogen [Mass/Vol] 12.0 mg/dL Normal 7.0-18.0 [facility] Comment on above: Performed By: #### L IPID, CMP #### [facility] [address] [address] [address] Rivas Zhao Urea nitrogen/Creatinine [Mass ratio] 15.8 mg/mg Normal [facility] Comment on above: Performed By: #### L IPID, CMP #### [facility] [address] [address] [address] Rivas Zaho Patient Correspondenceon Patient Correspondence [id number]#1.00 CD:127 Normal [facility] Physician Referral [id number]#1.00 CD:127 Normal [facility] Patient Correspondence [id number]#1.00 CD:127 Normal [facility] Physician Referralon 022 Physician Referral [id number]#1.0 0CD:127 Normal [facility] MG MAMM DIAGNOSTIC 3D GREG CA Don 05-16-2021 MG MAMM DIAGNOSTIC 3D GREG CAD Patient: FERN CARDOSO Exam Date: 05/16/2021 : 1960 Gender:F Ordering : DR SINDI BENJAMIN M.D. Admission #: [id number] Family : Order #: [id number] CLICK HERE TO VIEW EXAM RADIOLOGY REPORT [...] breast cancer at age 59. LOCATION: [facility] BREAST COMPOSITION: Scattered areas fibroglandular density. FINDINGS: [...] M.D. on 05/16/2021 at 15:27 Normal [facility] US BREAST GREG LIMITEDon -2 US BREAST GREG LIMITED Patient: FERN CARDOSO Exam Date: 05/16/2021 : 1960 Gender:F Ordering : DR SINDI BENJAMIN M.D. Admission #: [id number] Family : Order #: [id number] CLICK HERE TO VIEW EXAM RADIOLOGY REPORT [...] breast cancer at age 59. LOCATION: [facility] BREAST COMPOSITION: Scattered areas fibroglandular density. FINDINGS: [...] M.D. on 05/16/2021 at 15:27 Normal [facility] TRANSGLUTAMINASE IGAon 04-02 t-Transglutaminase (tTG) IgA <2 Normal 0-3 [facility] Comment on above: Result Comment: Nega tive 0 - 3 Weak Positive 4 - 10 Positive >10 . Tissue Transglutaminase (tTG) has been identified as the endomysial antigen. Studies have demonstr- ated that endomysial IgA antibodies have over 99% specificity for gluten sensitive enteropathy. Performed By: #### T FRANCESCA #### [facility] [address] [place] [address] Dr. Rivas Zhao CBC AUTO DIFFon 03-31-2021 BASO # 0.1 103/ul Normal 0.0-0.1 [facility] Comment on above: Performed By: #### C BC #### [facility] [address] [address] [address] Rivas Zhoa Basophils/100 WBC (Bld) 0.9 % Normal 0.2-2.0 [facility] Comment on above: Performed By: #### C BC #### [facility] [address] [place] [address] Dr. Rivas Zhao EO # 0.2 103/ul Normal 0.0-0.7 [facility] Comment on above: Performed By: #### C BC #### [facility] [address] [place] [address] Dr. Rivas Zhao Eosinophils/100 WBC (Bld) 2.3 % Normal 0.9-7.0 [facility] Comment on above: Performed By: #### C BC #### [facility] [address] [place] [address] Dr. Rivas Zhao Erythrocyte distribution width (RBC) [Ratio] 14.5 % Normal 11.0-15.0 [facility] Comment on above: Performed By: #### C BC #### [facility] [address] [place] [address] Dr. Rivas Zhao Hematocrit (Bld) [Volume fraction] 39.9 % Normal 36.0-48.0 [facility] Comment on above: Performed By: #### C BC #### [facility] [address] [place] [address] Dr. Rivas Zhao Hemoglobin (Bld) [Mass/Vol] 13.1 g/dL Normal 12.0-16.0 [facility] Comment on above: Performed By: #### C BC #### [facility] [address] [place] [address] Dr. Rivas Zhao IG # 0.02 10e3/ul Normal 0.00-0.03 [facility] Comment on above: Performed By: #### C BC #### [facility] [address] [place] [address] Dr. Rivas Zhao IG % 0.3 % Normal 0.0-0.5 [facility] Comment on above: Performed By: #### C BC #### [facility] [address] [place] [address] Dr. Rivas Zhao LYMPH # 2.2 103/ul Normal 1.2-3.8 [facility] Comment on above: Performed By: #### C BC #### [facility] [address] [place] [address] Dr. Rivas Zhao Lymphocytes/100 WBC (Bld) 31.8 % Normal 20.5-60.0 [facility] Comment on above: Performed By: #### C BC #### [facility] [address] [place] [address] Dr. Rivas Zhao MANUAL DIFF REQ NO Normal [facility] Comment on above: Performed By: #### C BC #### [facility] [address] [place] [address] Dr. Rivas Zhao MCH (RBC) [Entitic mass] 30.2 pg Normal 26.7-34.0 [facility] Comment on above: Performed By: #### C BC #### [facility] [address] [place] [address] Dr. Rivas Zhao MCHC (RBC) [Mass/Vol] 32.8 g/dL Normal 29.9-35.2 [facility] Comment on above: Performed By: #### C BC #### [facility] [address] [place] [address] Dr. Rivas Zhao MCV (RBC) [Entitic vol] 91.9 fL Normal 81.0-99.0 [facility] Comment on above: Performed By: #### C BC #### [facility] [address] [place] [address] Dr. Rivas Zhao MONO # 0.5 103/ul Normal 0.3-0.8 [facility] Comment on above: Performed By: #### C BC #### [facility] [address] [place] [address] Dr. Rivas Zhao Monocytes/100 WBC (Bld) 7.2 % Normal 1.7-12.0 [facility] Comment on above: Performed By: #### C BC #### [facility] [address] [place] [address] Dr. Rivas Zhao NEUT # 4.0 103/ul Normal 1.4-6.5 [facility] Comment on above: Performed By: #### C BC #### [facility] [address] [place] [address] Dr. Rivas Zhao Neutrophils/100 WBC (Bld) 57.5 % Normal 43.0-75.0 [facility] Comment on above: Performed By: #### C BC #### [facility] [address] [place] [address] Dr. Rivas Zhao Platelet mean volume (Bld) [Entitic vol] 11.8 fL Normal 9.5-13.5 [facility] Comment on above: Performed By: #### C BC #### [facility] [address] [place] [address] Dr. Rivas Zhao PLT 139 103/ul Critically low 150-450 [facility] Comment on above: Performed By: #### C BC #### [facility] [address] [place] [address] Dr. Rivas Zhao RBC 4.34 106/ul Normal 4.20-5.40 [facility] Comment on above: Performed By: #### C BC #### [facility] [address] [place] [address] Dr. Rivas Zhao WBC 7.0 103/ul Normal 4.0-11.0 [facility] Comment on above: Performed By: #### C BC #### [facility] [address] [place] [address] Dr. Rivas Zhao LIPASEon 03-31-2021 Lipase [Catalytic activity/Vol] 197.0 U/L Normal 23.0-300.0 [facility] Comment on above: Performed By: #### C MP, LIPA #### [facility] [address] [place] [address] Dr. Rivas Zhao PROF 14(COMP METB)on 021 Albumin [Mass/Vol] 3.6 g/dL Normal 3.5-5.0 [facility] Comment on above: Performed By: #### C MP, LIPA #### [facility] [address] [place] [address] Dr. Rivas Zhao Albumin/Globulin [Mass ratio] 0.9 {ratio} Normal [facility] Comment on above: Performed By: #### C MP, LIPA #### [facility] [address] [place] [address] Dr. Rivas Zhao ALP [Catalytic activity/Vol] 46 U/L Normal 38-126 [facility] Comment on above: Performed By: #### C MP, LIPA #### [facility] [address] [address] [address] Rivas Zhao ALT [Catalytic activity/Vol] 77 U/L Critically high 9-52 [facility] Comment on above: Performed By: #### C MP, LIPA #### [facility] [address] [address] [address] Rivas Zhao Anion gap [Moles/Vol] 13.9 mmol/L Normal [facility] Comment on above: Performed By: #### C MP, LIPA #### [facility] [address] [address] [address] Rivas Zhao AST [Catalytic activity/Vol] 67 U/L Critically high 14-36 [facility] Comment on above: Performed By: #### C MP, LIPA #### [facility] [address] [place] [address] Dr. Rivas Zhao Bilirubin [Mass/Vol] 0.7 mg/dL Normal 0.2-1.3 [facility] Comment on above: Performed By: #### C MP, LIPA #### [facility] [address] [place] [address] Dr. Rivas Zhao Calcium [Mass/Vol] 9.8 mg/dL Normal 8.4-10.2 [facility] Comment on above: Performed By: #### C MP, LIPA #### [facility] [address] [place] [address] Dr. Rivas Zhao Chloride [Moles/Vol] 103 mmol/L Normal 98-107 [facility] Comment on above: Performed By: #### C MP, LIPA #### [facility] [address] [address] [address] Rivas Zhao CO2 [Moles/Vol] 31.0 mmol/L Critically high 22.0-30.0 [facility] Comment on above: Performed By: #### C MP, LIPA #### [facility] [address] [place] [address] Dr. Rivas Zhao Creatinine [Mass/Vol] 0.95 mg/dL Normal 0.52-1.04 [facility] Comment on above: Performed By: #### C MP, LIPA #### [facility] [address] [address] [address] Rivas Zhao EGFR-AF EMIRATI 60 mL/min/1.73m2 Normal >=60 [facility] Comment on above: Performed By: #### C MP, LIPA #### [facility] [address] [address] [address] Rivas Zhao EGFR-NON AF EMIRATI =60 Normal >=60 [facility] Comment on above: Performed By: #### C MP, LIPA #### [facility] [address] [address] [address] Rivas Zhao Globulin (S) [Mass/Vol] 4.2 g/dL Normal [facility] Comment on above: Performed By: #### C MP, LIPA #### [facility] [address] [place] [address] Dr. Rivas Zhao Glucose [Mass/Vol] 95 mg/dL Normal 74-106 [facility] Comment on above: Performed By: #### C MP, LIPA #### [facility] [address] [address] [address] Rivas Zhao Potassium [Moles/Vol] 3.9 mmol/L Normal 3.4-5.0 [facility] Comment on above: Performed By: #### C MP, LIPA #### [facility] [address] [address] [address] Rivas Zhao Protein [Mass/Vol] 7.8 g/dL Normal 6.1-8.2 [facility] Comment on above: Performed By: #### C MP, LIPA #### [facility] [address] [address] [address] Rivas Zhao Sodium [Moles/Vol] 144 mmol/L Normal 137-145 [facility] Comment on above: Performed By: #### C MP, LIPA #### [facility] [address] [address] [address] Rivas Zhao Urea nitrogen [Mass/Vol] 20.0 mg/dL Critically high 7.0-17.0 [facility] Comment on above: Performed By: #### C LASHANDA, LIPA #### [facility] [address] [place], [place] [address] Dr. Rivas Zhao Urea nitrogen/Creatinine [Mass ratio] 21.1 mg/mg Normal [facility] Comment on above: Performed By: #### C LASHANDA, LIPA #### [facility] [address] [place], [place] [address] Dr. Rivas Zhao XR ribs RT min 3V w CXR1V*on 06-09-2020 XR ribs RT min 3V w CXR1V* [facility] [place] [address] [place] [address] XRay Report Signed Patient: Fern Cardoso MR#: [id number] : 1960 Acct:[id number] Age/Sex: 59 / F ADM Date: 06/09/20 Loc: XDUCLY Room: Type: [facility] Attending Dr: Janene Munguia APRN, DIRECTOR OF TEACHER EDUCATION-C Ordering Provider: Janene Munguia APRN Date of [...] Garcia Jr., M.D.06/09/2020 11:19 AM Dictation Location: [place] [address] Transcribed By: [facility] 06/09/20 1119 Dictated By: Que Garcia Jr, MD 06/09/20 1112 Signed By: 06/09/20 1119 Normal [facility] Vital Signs Date Time Vital Sign Value Performing Clinician Facility 10-14-2023 09:39-0400 Body height 165.1 cm [facility] 10-14-2023 09:39-0400 Body mass index (BMI) [Ratio] 54.6 kg/m2 [facility] 10-14-2023 09:39-0400 Body temperature 98.4 [degF] [facility] 10-14-2023 09:39-0400 Body weight 148.89 kg [facility] 10-14-2023 09:39-0400 Diastolic blood pressure 76 mm[Hg] [facility] 10-14-2023 09:39-0400 Heart rate 71 /min [facility] 10-14-2023 09:39-0400 Respiratory rate 18 /min [facility] 10-14-2023 09:39-0400 SaO2% (BldA) [Mass fraction] 97 % [facility] 10-14-2023 09:39-0400 Systolic blood pressure 114 mm[Hg] [facility] 08-12-2023 11:04-0400 Body height 165.1 cm [facility] 08-12-2023 11:04-0400 Body mass index (BMI) [Ratio] 55.2 kg/m2 [facility] 08-12-2023 11:04-0400 Body weight 150.59 kg [facility] 08-12-2023 11:04-0400 Diastolic blood pressure 67 mm[Hg] [facility] 08-12-2023 11:04-0400 Heart rate 67 /min [facility] 08-12-2023 11:04-0400 Systolic blood pressure 104 mm[Hg] [facility] 06-21-2023 15:41-0500 Body height 165.1 cm [facility] 06-21-2023 15:41-0500 Body mass index (BMI) [Ratio] 54.1 kg/m2 [facility] 06-21-2023 15:41-0500 Body weight 147.64 kg [facility] 06-21-2023 15:41-0500 Diastolic blood pressure 60 mm[Hg] [facility] 06-21-2023 15:41-0500 Heart rate 67 /min [facility] 06-21-2023 15:41-0500 SaO2% (BldA) [Mass fraction] 97 % [facility] 06-21-2023 15:41-0500 Systolic blood pressure 108 mm[Hg] [facility] 05-14-2023 09:30-0500 Body height 165.1 cm Sindi Benjamin Other [facility] Other 05-14-2023 09:30-0500 Body mass index (BMI) [Ratio] 57.24 kg/m2 Sindi Benjamin Other [facility] Other 05-14-2023 09:30-0500 Body weight 156.04 kg Sindi Benjamin Other [facility] Other 05-14-2023 09:30-0500 Diastolic blood pressure 69 mm[Hg] Sindi Benjamin Other [facility] Other 05-14-2023 09:30-0500 SaO2% (BldA) [Mass fraction] 97 % Sindi Benjamin Other [facility] Other 05-14-2023 09:30-0500 Systolic blood pressure 105 mm[Hg] Sindi Benjamin Other [facility] Other 03-05-2023 16:00-0500 Body height 165.1 cm Etta Gordon Other [facility] Other 03-05-2023 16:00-0500 Body mass index (BMI) [Ratio] 60.27 kg/m2 Etta Gordon Other [facility] Other 03-05-2023 16:00-0500 Body temperature 98.9 [degF] Etta Gordon Other [facility] Other 03-05-2023 16:00-0500 Body weight 164.29 kg Etta Gordon Other [facility] Other 03-05-2023 16:00-0500 Diastolic blood pressure 77 mm[Hg] Etta Gordon Other [facility] Other 03-05-2023 16:00-0500 Respiratory rate 18 /min Etta Gordon Other [facility] Other 03-05-2023 16:00-0500 SaO2% (BldA) [Mass fraction] 95 % Etta Gordon Other [facility] Other 03-05-2023 16:00-0500 Systolic blood pressure 125 mm[Hg] Etta Gordon Other [facility] Other Encounters Encounter Date Encounter Type Care Provider Facility Start: 10-14-2023 End: 10-14-2023 [facility] Work Phone: Start: 10-14-2023 End: 10-14-2023 Patient encounter procedure [facility] Work Phone: Start: 10-12-2023 ambulatory [facility] Start: 10-05-2023 End: 10-05-2023 ambulatory [facility] Start: 09-24-2023 ambulatory [facility] Start: 08-28-2023 Non-patient / Non-visit [facility] Work Phone: Start: 08-22-2023 Patient encounter status [facility] Start: 08-12-2023 End: 08-12-2023 Encounter for general adult medical examination without abnormal findings [facility] Start: 08-12-2023 End: 08-12-2023 Patient encounter procedure [facility] Work Phone: Start: 08-12-2023 End: 08-12-2023 ambulatory BENY LANG [facility] Work Phone: Start: 07-12-2023 End: 07-12-2023 ambulatory [facility] Start: 07-09-2023 Non-patient / Non-visit [facility] Work Phone: Start: 06-30-2023 End: 06-30-2023 ambulatory [facility] Start: 06-21-2023 End: 06-21-2023 Patient encounter procedure [facility] Work Phone: Start: 06-18-2023 End: 06-18-2023 ambulatory [facility] Start: 06-08-2023 End: 06-08-2023 ambulatory [facility] Start: 05-31-2023 End: 05-31-2023 ambulatory Etta Gordon Other [facility] Other Start: 05-31-2023 Telephone encounter Etta Gordon [facility] Start: 05-21-2023 End: 05-21-2023 ambulatory Sindi Benjamin Other [facility] Other Start: 05-21-2023 Telephone encounter Sindi Benjamin [facility] Start: 05-18-2023 Patient encounter procedure [facility]- Start: 05-17-2023 End: 05-17-2023 ambulatory [facility] Start: 05-14-2023 End: 05-14-2023 ambulatory Sindi Benjamin Other [facility] Other Start: 05-14-2023 Office outpatient vi sit 25 minutes Sindi Benjamin [facility] Start: 05-06-2023 Evaluation and management of inpatient [facility] Start: 05-05-2023 Evaluation and management of inpatient [facility] Start: 05-05-2023 End: 05-11-2023 [facility] Start: 04-30-2023 End: 04-30-2023 ambulatory Sindi Benjamin Other [facility] Other Start: 04-30-2023 Telephone encounter Sindi Benjamin [facility] Start: 04-01-2023 End: 04-01-2023 ambulatory Sindi Benjamin Other [facility] Other Start: 04-01-2023 Telephone encounter Sindi Benjamin [facility] Start: 03-05-2023 End: 03-05-2023 ambulatory Etta Gordon Other [facility] Other Start: 03-05-2023 Office outpatient vi sit 25 minutes Etta Gordon [facility] Start: 02-26-2022 Encounter for genera l adult medical examination without abnormal findings DR SINDI BENJAMIN [facility] Start: 02-21-2022 End: 02-22-[address] SINDI BENJAMIN Facility:[facility] Start: 02-21-2022 End: 02-22-2022 Encounter for general adult medical examination without abnormal findings DR SINDI BENJAMIN Facility:[facility] Start: 01-20-2022 Adult health examination Etta Gordon Other [facility] Other Start: 05-16-2021 End: 05-17-[address] [...] Detail Author MG Breast - bilateral Screening [facility] Payers Date Payer Category Payer Unknown [id number] 1960 Unknown [id number] 1960 Unknown [id number] 1960 Unknown [id number] 1960 Unknown [id number] 1958 Unknown [id number] Self-pay Self Pay [id number] Social History Date Type Detail Facility Unknown if ever smoked [facility] Other Sex Assigned At Sex Assigned At Bir th [facility] Other Start: 07-07-2018 End: 10-14-2023 Tobacco smoking status NHIS Never smoked tobacco (finding) [facility] Start: 1960 Sex Assigned At Female F [facility] Medical Equipment Procedure Code Equipment Code [...] PERSONA RIGHT SIZE D FDA Start: 07-04-2018 Arthroplasty, knee, total, minimally invasive ART SURF [...] FDA Start: 07-04-2018 Clinical Notes 10-22-2020 to 10-05-2023 Note Date & Type Note Facility 10-05-2023 Note [facility] Consult Note Reason for visit: Afib 10/05/23 patient underwent atrial flutter ablation and loop insertion on 07/12/2023. patient was noted to have easily inducible A-fib while in the EP lab. subsequently on follow-up the loop monitor has revealed multiple episodes of atrial fibrillation. she has not come to discuss about A-fib ablation. she is going to retire in a few weeks and would like to get this done as soon as possible 06/08/23 HPI: Fern Cardoso is a 63 y.o. year old with past medical history of hypertension diabetes obstructive sleep apnea was admitted to [facility] with shortness of breath and was noted [...] Expenses: Not hard at all Food Insecurity: No Food Insecurity (05/05/2023) Hunger Vital Sign Worried About Running Out of Food in the Last Year: Never true Ran Out of Food in the Last Year: Not on file Transportation Needs: No Transportation Needs (05/05/2023) Transportation Lack of Transportation (Medical): No Lack of Transportation (Non-Medical): Not on file Physical Activity: Not on file Stress: Not on file Social Connections: Not on file Intimate Partner Violence: Not At Risk (05/05/2023) [facility] Fear of Current or Ex-Partner: No Emotionally Abused: Not on file Physically Abused: Not on file Sexually Abused: Not on file Physically or Sexually Abused: Not on file Depression: Not on file Housing Stability: Low Risk (05/05/2023) Housing Stability Vital Sign Unable to Pay for Housing in the Last Year: Not on file Number of Places Lived in the Last Year: Not on file Unstable Housing in the Last Year: No Utilities: Not At Risk (05/05/2023) [facility] Utilities Threatened with loss of utilities: No Allergies: Allergies Allergen Reactions Penicillins Hives Weight: 152kg Visit Vitals BP 116/70 (BP Location: Right wrist, Patient Position: Sitting) Pulse 67 Ht 1.651 m (5' 5 ) Wt (!) 152 kg (334 lb) SpO2 97% BMI 55.58 kg/m??? OB Status Hysterectomy Smoking Status Never BSA 2.64 m??? Meds: [...] mg) by mouth once daily as directed. 14 tablet 0 diclofenac (Voltaren) 75 mg EC tablet Take [...] meal. Do not crush, chew, or split. spironolactone (Aldactone) 25 mg tablet Take 1 tablet (25 mg) by mouth once daily as directed. 14 tablet 0 No current facility-administered medications on file prior to visit. ROS: Review of Systems Cardiovascular: Positive for leg swelling (resolves by morning). Neurological: Positive for dizziness, headaches and light-headedness. All other systems revie (more content not included)... [facility] 08-12-2023 Note Cardiovascular Medic ine [facility] SUBJECTIVE Chief Complaint Patient presents with Atrial Fibrillation Congestive Heart Failure Fern Cardoso is a 63 y.o. female here [...] She feels dizziness. Per Dr. Cronin: HPI: Fern Cardoso is a 62 y.o. year old with past medical history of hypertension diabetes obstructive sleep apnea was admitted to [facility] with shortness of breath and was noted [...] heart failure) (CMS/HCC) Diabetes mellitus (CMS/HCC) Hypertension Family History Problem Relation Name Age [...] Rate and Rhythm: (more content not included)... [facility] 08-12-2023 Note Patient here for [facility] low up atrial flutter ablation and loop [...] All other systems reviewed and are negative. [facility] 07-12-2023 Note ATRIAL FLUTTER ABLAT ION & [...] diabetes obstructive sleep apnea was admitted to [facility] with shortness of breath and was noted [...] clot. CS os was mapped using the [employer] 3D mapping software. Using ICE, the His [...] the sternum on the left using the [employer] tool. The loop recorder was then injected subcutaneously and noted to have good sensing parameters. Technical details of the device as noted below. The skin was then closed with 3-0 absorbable monofilament sut (more content not included)... [facility] 07-12-2023 Note Patient: Fren parker Procedure Information Date/Time: 07/12/23 0830 Procedures: Ablation atrial flutter Loop insertion Location: [facility] MACHINE OPERATOR 1 EP / [facility] (Cath) Providers: Jose Luis Cronin MD Clinical information reviewed: Allergies Meds OB Status Physical Exam Airway Mallampati: II TM distance: >3 FB Neck ROM: full Cardiovascular Dental Pulmonary Abdominal Anesthesia Plan ASA 2 CSE Anesthetic plan and risks discussed with patient. Use of blood products discussed with patient who. Additional Equipment Requests [facility] 06-30-2023 Note CHF stable with out exacerbation Continue GDMT as prescribed [facility] 06-30-2023 Note BP in office perfect 128/72, but with midodrine 5 mg tid she has exaggerated supine hypertension at home after review of b/p log, therefore recommended pt to take midodrine as needed - hold for SBP> 120, and can also cut tab in 1/2 to = 2.5 mg And she voiced understanding. [facility] 06-30-2023 Note [id number]= 4 Continue eliquis anticoagulation, amiodarone for rhythm control and coreg for rate control [facility] 06-30-2023 Note Patient here c/o hyp ertension. [...] All other systems reviewed and are negative. [facility] 06-30-2023 Note [facility] CARDIOLOGY PROGR ESS NOTE [...] 20 18 14 (more content not included)... [facility] 06-18-2023 Note HTN currently well c ontrolled, also labile 90/57 and may have been Contributing to symptoms this week. Will add midodrine 5 mg tid to regime to prevent hypotension, lightheadedness/dizziness or syncope. [facility] 06-18-2023 Note [facility] II- currently w ithout exacerbation Continue GDMT- ASA, coreg, farxiga, losartan, entresot and aldatone Diuretic therapy- bumex 1 mg daily Monitor daily weights, I&O, fluid restriction 1.5-2L/day, renal function and electrolytes [facility] 06-18-2023 Note Continue amiodarone 200 mg daily, and coreg 6.25 mg bid. Will add midodrine 5 mg tid to regime for noted hypotension and symptoms of lightheadedness/dizziness and near syncope. Continue eliquis anticoaogulation- denied any bleeding tendencies [facility] 06-18-2023 Note [facility] C[facility]Y PROGR ESS NOTE [...] diabetes obstructive sleep apnea was admitted to [facility] with shortness of breath and was noted [...] Musculoskeletal: General: N (more content not included)... [facility] 06-18-2023 Note Patient here c/o epi sode [...] All other systems reviewed and are negative. [facility] 06-08-2023 Note [facility] Electrophysiology Consult Note Reason for visit: Afib HPI: Fern Cardoso is a 62 y.o. year old with past medical history of hypertension diabetes obstructive sleep apnea was admitted to [facility] with shortness of breath and was noted [...] file (05/05/2023) Utilities: Not At Risk (05/05/2023) [facility] Utilities Threatened with loss of utilities: [...] Arteries: bilateral no (more content not included)... [facility] 05-17-2023 Note [facility] Cardiology Clinic Note Chief Complaint: Patient here for follow up [facility]. Had cath on 05/07/2023. Denies chest pain, [...] PSYCH: appropriate mood, affect, and judgement. INVESTIGATIONS: Echocardiogram-[facility] Name: FERN CARDOSO Study Date: 05/06/2023 08:24 AM B/P: 131 mmHg/56 mmHg HR: 80 bpm Date of : 1960 Location: [facility] Height: 65 in. Age: 62 year(s) Patient [...] 2, moderate diastolic (more content not included)... [facility] 05-14-2023 Evaluation note Encounter Date Diagnosis Assessment [...] forms for supplies and faxed back to [employer]. Pt states she will restart and become compliant w CPAP treatment. [facility] Other 01-23-2024 NotePt provided with discharge education and instructions. Heart failure folder reviewed in detail and filled out. Medications delivered and at bedside. All questions answered. Pt wheeled to main entrance, father there for transport. [facility] NoteCardiology Progress Note Subjective F/U Acute systolic heart failure Patient up in chair. Denies SOB, cp, palpitations. Reports pedal edema significantly improved. Tele - currently NSR, with some episodes a.fib overnight per [facility] Objective Patient Vitals for the past 24 [...] Value Ventricular Rate 81 Atrial Rate 81 LA Interval 208 QRS DURATION 178 QT Interval 442 QTC CALCULATION(BAZETT) 513 P Jadwin 34 R-Jadwin -48 T Wave Jadwin 101 Impression Normal sinus rhythm Left axis [...] internal jugular vein was obtained. A 6 Surinamese 11 cm sheath was inserted without difficulty. [...] left radial artery was obtained. A 6 Surinamese glide sheath was inserted without difficulty. Difficulty [...] outline, coronary spasm was (more content not included)...[facility] NoteHospital Medicine Discharge Summary Final Discharge Diagnosis: Atrial fibrillation with RVR- [id number] score 4 Atrial flutter New onset of congestive heart failure/heart failure -ejection fraction, 40% TTE 05/06/23 NYHA class II Hypokalemia/Hypomagnesemia Essential hypertension DMII noninsulin dependent Thrombocytopenia Osteoarthritis Obstructive sleep apnea with non compliance to CPAP Obese class 3 Admission Diagnosis: Acute systolic heart failure (CMS/[facility]) [I50.21] Hospital course: History of Present Illness Fern Cardoso is an 62 y.o. female admitted from [facility] as a direct admit. She has history of hypertension diabetes obstructive sleep apnea not using CPAP or BiPAP he was admitted at [facility] with chief complaint of sudden onset of shortness of breath. According to patient she wake up in the morning 2 days back very short of breath denies any chest pain heart palpitation dizziness syncope weakness no increased cough or expectoration and no fever chills cough drops with the family to [place] ER with she was noted to be [...] Telemetry strips and EKG were reviewed from [facility]. Strip labeled as V. tach is consistent [...] obstructive sleep apnea who was admitted to [facility] with sudden onset shortness of breath found to have new onset heart failure and atrial fibrillation. Acute heart failure with mid range ejection fraction, 40% TTE 05/06/23 NYHA class II Atrial fibrillation/flutter, [id number]-JZVv 4 (female-1, heart failure-1, diabetes mellitus-1, Hypertension-1) [...] (400 mg) by mouth (more content not included)...[facility]01-23-2024 NoteNutrition Screening Assessment: Patient Name: Fern Cardoso [...] with questions and contact the dietitian via Play[employer]test 8A-4P Wednesday-Wednesday. Or call the dietitian's office at [email or web address] [phone]. For s/holidays, the dietitian's can be reached by paging [phone] from 9A-3P. Unable to be reached via fotobabble on Wednesday & .)[facility]01-22-2024 [facility] Medicine Daily Progress Note - 05/10/2023 12:14 PM; Room: [facility]/3131-01 Admission: 05/05/2023 7:10 PM; Length of stay: 5 days THE HOSPITALIST TEAM PREFERS TO USE [employer] FOR COMMUNICATION 7AM-7PM. IF I DO NOT RESPOND WITHIN 15 MINUTES, PLEASE PAGE ME/CALL THROUGH THE STITCH MARKER. FROM 7PM-7AM, PLEASE PAGE [phone](COVR) Code Status: Full Code Barriers to Discharge: [...] Assessment and Plan Atrial fibrillation with RVR- [id number]-IDCk score 4 - resumed eliquis - amio [...] FREET4 1.08 05/06/2023 No results found for: [id number] , IRON , TIBC , C3 , [...] cardiovascular factor modificati (more content not included)... [facility]01-22-2024 NotePt admitted to hospital for acute on chronic systolic HF, hx of HTN, DM, RAVI w/o CPAP compliance. Pt's echo from 05/06/23 estimated LVEF 40%, which does not qualify pt for cardiac rehab (CR) therapy with HF diagnosis per CMS eligibility criteria. I will watch for updates and follow up with pt, if appropriate. NICHELLE RosalesN arc air operator Outpatient Coordinator [facility] Note Cardiology Progress Note Subjective F/U [...] Value Ventricular Rate 81 Atrial Rate 81 LA Interval 208 QRS DURATION 178 QT Interval 442 QTC CALCULATION(BAZETT) 513 P Jadwin 34 R-Jadwin -48 T Wave Jadwin 101 Impression Normal sinus rhythm Left axis [...] internal jugular vein was obtained. A 6 Surinamese 11 cm sheath was inserted without difficulty. [...] left radial artery was obtained. A 6 Surinamese glide sheath was inserted without difficulty. Difficulty advancing the [place] La Vega wire was encountered; therefore this was removed. Angiography was performed via the JR catheter. T (more content not included)...[facility]01-21-2024 [facility] Medicine Daily Progress Note - 05/09/2023 12:26 PM; Room: 3131/3131-01 Admission: 05/05/2023 7:10 PM; Length of stay: 4 days THE HOSPITALIST TEAM PREFERS TO USE [employer] FOR COMMUNICATION 7AM-7PM. IF I DO NOT RESPOND WITHIN 15 MINUTES, PLEASE PAGE ME/CALL THROUGH THE STITCH MARKER. FROM 7PM-7AM, PLEASE PAGE [phone](COVR) Code Status: Full Code Barriers to Discharge: [...] Assessment and Plan Atrial fibrillation with RVR- [id number]-EPQl score 4 - currently on metoprolol - [...] FREET4 1.08 05/06/2023 No results found for: [id number] , IRON , TIBC , C3 , [...] for heart failure with (more content not included)...[facility]01-21-2024 Note Attestation signed by Adenike Serrano MD [...] Value Ventricular Rate 81 Atrial Rate 81 LA Interval 208 QRS DURATION 178 QT Interval 442 QTC CALCULATION(BAZETT) 513 P Jadwin 34 R-Jadwin -48 T Wave Jadwin 101 Impression Normal sinus rhythm Left axis deviation Left bundle branch block Abnormal ECG When compared with ECG of 13-FEB-2013 09:22, No significant change was found Confirmed by Jose Luis Cronin ([id number]) on 05/05/2023 9:15:31 PM Lab Results Component Value Date TROPONINI 0.01 05/06/2023 Complete Echo (TTE) w/wo Imaging Agent, Strain, 3D, Bubble Study Result Date: 05/06/2023 1 1 [facility] [address] [place] [address] [phone] (fax) Echocardiogram-[facility] Name: FERN CARDOSO Study Date: 05/06/2023 08:24 AM B/P: 131 mmHg/56 mmHg HR: 80 bpm Date of : 1960 Location: [facility] Height: 65 in. Age: 62 year(s) Patient [...] 2.4 cm?? Findings Left (more content not included)...[facility]01-20-2024 Note Attestation signed by Adenike Serrano MD [...] Value Ventricular Rate 81 Atrial Rate 81 LA Interval 208 QRS DURATION 178 QT Interval 442 QTC CALCULATION(BAZETT) 513 P Jadwin 34 R-Jadwin -48 T Wave Jadwin 101 Impression Normal sinus rhythm Left axis deviation Left bundle branch block Abnormal ECG When compared with ECG of 13-FEB-2013 09:22, No significant change was found Confirmed by Jose Luis Cronin ([id number]) on 05/05/2023 9:15:31 PM Lab Results Component Value Date TROPONINI 0.01 05/06/2023 Complete Echo (TTE) w/wo Imaging Agent, Strain, 3D, Bubble Study Result Date: 05/06/2023 1 1 [facility] [address] [facility] [place] [address] [phone] (fax) Echocardiogram-[facility] Name: FERN CARDOSO Study Date: 05/06/2023 08:24 AM B/P: 131 mmHg/56 mmHg HR: 80 bpm Date of : 1960 Location: [facility] Height: 65 in. Age: 62 year(s) Patient [...] cm Mitral Valv (more content not included)... [facility]01-20-2024 NoteHospital Medicine Daily Progress Note - 05/08/2023 8:40 AM; Room: [address] [place] [address] Admission: 05/05/2023 7:10 PM; Length of stay: 3 days THE HOSPITALIST TEAM PREFERS TO USE [employer] CHAT FOR COMMUNICATION 7AM-7PM. IF I DO NOT RESPOND WITHIN 15 MINUTES, PLEASE PAGE ME/CALL THROUGH THE STITCH MARKER. FROM 7PM-7AM, PLEASE PAGE [phone](COVR) Code Status: Full Code Barriers to Discharge: [...] Principal Problem: Acute systolic heart failure (CMS/[facility]) Assessment and Plan Atrial fibrillation with RVR- [id number]-QNHb score 4 - currently on metoprolol - [...] FREET4 1.08 05/06/2023 No results found for: [id number] , IRON , TIBC , C3 , [...] midrange ejection fraction (H (more content not included)...[facility] 05-07-2023 NoteCardiovascular Laboratory Report FINAL IMPRESSIONS: Vasospasm [...] internal jugular vein was obtained. A 6 Surinamese 11 cm sheath was inserted without difficulty. [...] left radial artery was obtained. A 6 Surinamese glide sheath was inserted without difficulty. Difficulty [...] outline, coronary spasm was suspected. 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 OPERATOR 3 / [facility] (Cath) Providers: Regina Stark [...] Additional Equipment Requests Regina Stark MD, MPH, [facility], [facility], [facility] Interventional Cardiology Pager Email: [email or web address] NoteCardiology Progress Note Subjective Subjective: Patient [...] Value Ventricular Rate 81 Atrial Rate 81 LA Interval 208 QRS DURATION 178 QT Interval 442 QTC CALCULATION(BAZETT) 513 P Jadwin 34 R-Jadwin -48 T Wave Jadwin 101 Impression Normal sinus rhythm Left axis deviation Left bundle branch block Abnormal ECG When compared with ECG of 13-FEB-2013 09:22, No significant change was found Confirmed by Jose Luis Cronin ([id number]) on 05/05/2023 9:15:31 PM Lab Results Component Value Date TROPONINI 0.01 05/06/2023 Complete Echo (TTE) w/wo Imaging Agent, Strain, 3D, Bubble Study Result Date: 05/06/2023 1 1 [facility] [address] [place] [address] [phone] (fax) Echocardiogram-[facility] Name: FERN CARDOSO Study Date: 05/06/2023 08:24 AM B/P: 131 mmHg/56 mmHg HR: 80 bpm Date of : 1960 Location: [facility] Height: 65 in. Age: 62 year(s) Patient [...] (pseudonormalized LV filling patte (more content not included)...[facility] 05-07-2023 NoteHospital Medicine Daily Progress Note - 05/07/2023 7:58 AM; Room: [address] [place] [address] Admission: 05/05/2023 7:10 PM; Length of stay: 2 days THE HOSPITALIST TEAM PREFERS TO USE [employer] FOR COMMUNICATION 7AM-7PM. IF I DO NOT RESPOND WITHIN 15 MINUTES, PLEASE PAGE ME/CALL THROUGH THE STITCH MARKER. FROM 7PM-7AM, PLEASE PAGE [phone](COVR) Code Status: No Order Barriers to Discharge: [...] 62 year-old female who is transferred from [facility] with chief complaint of sudden onset of shortness of breath and was found to been atrial fibrillation with RVR that was treated with Cardizem drip, further workup with echocardiogram shows ejection fraction of 40%. transferred to [facility] for further cardiac evaluation. Assessment: Atrial fibrillation with RVR- YUR0VY5-JMYa score 4 New onset of congestive heart [...] 05/06/2023 FREET4 1.08 05/06/19 (more content not included)...[facility]01-18-2024 [facility] Medicine Daily Progress Note - 05/06/2023 9:19 AM; Room: [address] [place] [address] Admission: 05/05/2023 7:10 PM; Length of stay: 1 days THE HOSPITALIST TEAM PREFERS TO USE [employer] CH[employer] FOR COMMUNICATION 7AM-7PM. IF I DO NOT RESPOND WITHIN 15 MINUTES, PLEASE PAGE ME/CALL THROUGH THE STITCH MARKER. FROM 7PM-7AM, PLEASE PAGE [phone](COVR) Code Status: No Order Barriers to Discharge: [...] 62 year-old female who is transferred from [facility] with chief complaint of sudden onset of shortness of breath and was found to been atrial fibrillation with RVR that was treated with Cardizem drip, further workup with echocardiogram shows ejection fraction of 40%. transferred to [facility] for further cardiac evaluation. Assessment: Atrial fibrillation with RVR- NOB6JT4-KKHa score 3 New onset of congestive heart [...] FREET4 1.08 05/06/2023 No results found for: [id number] , IRON , TIBC , C3 , C4 , ILSA , CANCA , ASO , P (more content not included)...[facility] 05-05-2023 NoteHospital Medicine History and Physical 05/05/2023 9:20 PM THE HOSPITALIST TEAM PREFERS TO USE [employer] CHAT FOR COMMUNICATION 7AM-7PM. IF I DO NOT RESPOND WITHIN 15 MINUTES, PLEASE PAGE ME/CALL THROUGH THE STITCH MARKER. FROM 7PM-7AM, PLEASE PAGE [phone](COVR) Chief Complaint No chief complaint on file. History of Present Illness Fern Cardoso is an 62 y.o. female admitted from [facility] as a direct admit. She has history of hypertension diabetes obstructive sleep apnea not using CPAP or BiPAP he was admitted at [facility] with chief complaint of sudden onset of shortness of breath. According to patient she wake up in the morning 2 days back very short of breath denies any chest pain heart palpitation dizziness syncope weakness no increased cough or expectoration and no fever chills cough drops with the family to [place] [facility] with she was noted to be [...] we will retrieve copy of echo from [facility] follow-up with cardiology New onset congestive heart failure/HFrEF CHF core measures in place metoprolol Cozaar diuretics and add Farxiga serial electrolytes creatinine reduced ejection fraction would need left heart cath to rule out ischemic heart disease Hypertension blood pressure control as above suspect underlying obstructive sleep apnea discussed with patient about follow-up with her P (more content not included)...[facility]11-17-20[facility] Evaluation note* Encounter Date Diagnosis Assessment Notes [...] treatment plan. Patient left in stable condition [facility] Other 07-06-2021 Evaluation note* Diagnosis Onset Date Resolution Status Essential (primary) hypertension October 22, 2020 acute Paroxysmal atrial fibrillation acute Screening mammogram for breast cancer acute Type 2 diabetes mellitus with hyperglycemia [facility] Work Phone: Evaluation noteNo [facility] Other Evaluation note* Diagnosis Onset Date Resolution Status Paroxysmal atrial fibrillation acute Screening mammogram for breast cancer acute Type 2 diabetes mellitus with hyperglycemia acute Wellness examination acute [facility] Work Phone: History general Narrative - Reported* Type Description [...] knee arthroplasty 05/07 Hospitalization History see above [facility] Other Summary Purpose Family History Relationship Condition Age at Onset Recorded Date/T annette Not Specified Heart disease Unknown Unknown Diabetes mellitus Unknown sister Unknown Relationship Condition Age at Onset Recorded Date/T annette mother Heart disease Unknown Unknown Diabetes mellitus Unknown sister Unknown Advance Directives Advance Directive Response Recorded Date/ Time Advance Directives Yes July 19 3:51pm Chief Complaint and Reason for Visit Chief Complaint 6 week follow up WELLNESS Reason for Visit Essential (primary) hypertension Paroxysmal atrial fibrillation Screening mammogram for breast cancer Type 2 diabetes mellitus with hyperglycemia Chief Complaint WELLNESS Left foot pain Reason for Visit Paroxysmal atrial fi brillation Screening mammogram for breast cancer Type 2 diabetes mellitus with hyperglycemia Wellness examination Additional Source Comments INFORMATION SOURCE (unrecogn ized section and content) DATE CREATED AUTHOR 08/28/2018 [facility] DATE CREATED AUTHOR AUTHOR'S ORGANIZ ATION 05/07/2021 [facility] DATE CREATED AUTHOR AUTHOR'S ORGANIZ ATION 09/19/2021 [facility] DATE CREATED AUTHOR AUTHOR'S ORGANIZ ATION 02/27/2022 [facility] DATE CREATED AUTHOR AUTHOR'S ORGANIZ ATION 10/13/2023 [facility] REASON FOR VISIT (unrecogniz ed section and content) COUGH//SORE THROAT//FATIGUER EFILLRefillUT - D/C 05/11messagemessage Care Teams (unrecognized sec tion and content) Team Status: Active Member Role Status Dates Sindi Benjamin MD Primary Care Provider Active Team Status: Inactive Member Role Status Dates Sindi Benjamin MD Primary Care Provide r, Attending Provider Active Start: August 12, 2023 End: August 12, 2023 Team Status: Active Member Role Status Dates Sindi Benjamin MD Primary Care Provide r, Attending Provider Active Start: August 28, 2023 Team Status: Inactive Member Role Status Dates Sindi Benjamin MD Primary Care Provider Active Start: October 14, 2023 End: October 14, 2023 Etta Gordon APRN Attending Provider Active Start: October 14, 2023 End: October 14, 2023 Team Status: Active Member Role Status Dates Sindi Benjamin MD Primary Care Provider Active Team Status: Active Member Role Status Dates Provider Conversion Attending Provider Active St art: May 18, 2023 Team Status: Inactive Member Role Status Vicky Benjamin MD Primary Care Provide r, Attending Provider Active Start: June 21, 2023 End: June 21, 2023 Team Status: Active Member Role Status Vicky Benjamin MD Primary Care Provide r, Attending Provider Active Start: July 09, 2023 Team Status: Inactive Member Role Status Vicky Benjamin MD Primary Care Provide r, Attending Provider Active Start: August 12, 2023 End: August 12, 2023 Team Status: Active Member Role Status Vicky Benjamin MD Primary Care Provide r, Attending Provider Active Start: August 28, 2023 Team Status: Inactive Member Role Status Vicky Benjamin MD Primary Care Provider Active Start: October 14, 2023 End: October 14, 2023 Etta Gordon APRN Attending Provider Active Start: October 14, 2023 End: October 14, 2023 Goals (unrecognized section and content) Goals [...] BE BASED ON THE PRIMARY CLINICAL RECORDS. [employer] provides no warranty or guarantee of the accuracy or completeness of information in this document.
[2023-10-19 10:57] LABS: Eosinophils Absolute Auto 0.1 10^3/uL (0.0-0.7); Eosinophils Percent Auto 3.6 % (0.9-7.0); Hematocrit 36.4 % (36.0-48.0); Hemoglobin 11.5 g/dL (12.0-16.0); Immature Granulocytes Abs Auto 0.01 10^3/uL (0.00-0.03); Immature Granulocytes Pct Auto 0.3 % (0.0-0.5); Lymphocytes Percent Auto 26.3 % (20.5-60.0); Mean Corpuscular HGB Conc 31.6 g/dL (29.9-35.2); Mean Corpuscular Hemoglobin 28.3 pg (26.7-34.0); Mean Corpuscular Volume 89.4 fL (81.0-99.0); Mean Platelet Volume 10.8 fL (9.5-13.5); Monocytes Absolute Auto 0.3 10^3/uL (0.3-0.8); Monocytes Percent Auto 6.4 % (1.7-12.0); Neutrophils Absolute Auto 2.4 10^3/uL (1.4-6.5); Neutrophils Percent Auto 62.4 % (43.0-75.0); Platelet Count 122 10^3/uL (150-450); Red Blood Count 4.07 10^6/uL (4.20-5.40); Red Cell Distribution Width 13.6 % (11.0-15.0); White Blood Count 3.9 10^3/uL (4.0-11.0)
[2023-10-19 11:08] LABS: Anion Gap 12.6; BUN Creatinine Ratio 16.8; Calcium 8.5 mg/dL (8.5-10.1); Carbon Dioxide 31.2 mmol/L (21.0-32.0); Chloride 102 mmol/L (98-107); Estimated GFR (African America 50 (>=60); Estimated GFR (Non-African Ame 41 (>=60); Glucose 148 mg/dL (74-106); Potassium 3.8 mmol/L (3.5-5.1); Sodium 142 mmol/L (136-145)
== END 2023-10-19 10:30 | disposition home or self-care (01) ==
LOC: LAB 10:31
PROVIDERS: PCP Family Medicine; Visit Provider Internal Medicine Cardiovascular Disease
DX: Z01.812 Encounter for preprocedural laboratory examination (principal)
CPT/HCPCS: 36415; 80048; 85025

== ENCOUNTER 2023-12-16 12:27 | Outpatient (OUT) | payer OTHER, SELFPAY ==
--- NOTE | 2023-12-16 12:34 | XR_ITS ---
[address] [address] Patient Name: FERN CARDOSO MRN: [id number] date: 1960 Sex: F Assigned Patient Location: [facility] Current Patient Location: Accession/Order Number: [id number] Exam Date: 12/16/2023 12:40 Report Date: 12/17/2023 16:50 At the request of: FOREIGN BENJAMIN Procedure: XR lumbar spine 2-3V EXAM: XR lumbar spine 2-3V HISTORY: Lumbar Back Pain M54.50 COMPARISON: None. FINDINGS/IMPRESSION: 1. No acute fracture or dislocation. 2. Vertebral body height is preserved. 3. Mild to moderate disc degeneration of the lower thoracic spine and lumbar spine. 4. Mild degeneration of the sacroiliac joints. 5. Overlying bowel gas pattern is nonspecific. Electronically authenticated by: DIANA WISE Date: 12/17/2023 16:50
--- OUTSIDE RECORDS SUMMARY | 2023-12-16 12:46 | XMS_ITS | CCD ---
Author Organization [facility] Care Team Providers Care Designer And Patternmaker Name Role Phone Hans Whiteside Attending Unavailable [...] [employer] Unavailable Etta Gordon Unavailable Benjamin, Foreign Unavailable JOSE LUIS CRONIN Referring Unavailable MILTON, JOSE LUIS Referring Unavailable MILTNO, JOSE LUIS Referring Unavailable MILTON, JOSE LUIS Referring Unavailable SANAULLAH, SEBAS Referring Unavailable PRECIOUSBENY GOMEZ Attending Unavailable MILTONJOSE LUIS Mei Admitting Unavailable MILTON, JOSE LUIS Attending Unavailable MILTON, JOSE LUIS Referring Unavailable ELTAHAWY, REGINA Attending Unavailable MILTON, JOSE LUIS Referring Unavailable MILTON, JOSE LUIS Referring Unavailable MILTON, JOSE LUIS Attending Unavailable ASUNCION, LARA Attending Unavailable ASUNCION, LARA Attending Unavailable PRECIOUSBENY Attending Unavailable MILTON, JOSE LUIS Attending Unavailable SANAULLAH, SEBAS Referring Unavailable MILTON, JOSE LUIS Referring Unavailable MILTON, JOSE LUIS Admitting Unavailable MILTONJOSE LUIS Mei Attending Unavailable ADENIKE SERRANO Referring Unavailable MATTY, GUILLERMO Admitting Unavailable HEAVEN DOWD Attending Unavailable SANAULLAH, SEBAS Referring Unavailable Allergies Allergy Classification Reported Allergen(s) Allergy Type Date of Onset Reaction(s) Facility (4 sources) Penicillins; Translations: [PENICILLINS] Drug allergy (disorder) 02-07-20 13 [facility] Repository (8 sources) Ciprofloxacin Drug Allergy 08-12-19 Comment:nausea and diarrhea [facility] (8 sources) Penicillin G Drug Allergy 08-12-19 24 [facility] (9 sources) traMADol; Translations: [TRAMADOL] Drug Allergy 06-25-19 16 Unknown, [facility] (6 sources) Substance with penicillin structure and antibacterial mechanism of action (substance) Drug allergy 12-23-19 13 Unknown [facility] Other (6 sources) patient allergy list reviewed by nurse or physicia Propensity to adverse reactions 11-11-19 19 Comment:Done [facility] Other (6 sources) TraMADol & Dietary Manage Prod *ANALGESICS - OPIOI Propensity to adverse reactions 06-25-19 16 Unknown [facility] Other (6 sources) Allergies Reconciled Propensity to adverse reactions Unknown [facility] Other (1 source) diphenhydrAMINE; Translations: [DIPHENHYDRAMINE] Drug Allergy 10-28-19 [facility] Repository Medications Current Medications Medication Drug Class(es) Dates [...] Active -Hx Entry for 0 *Reorder from [facility] for eRx and Interaction Alerts* Feb, Active [...] 6.25 mg oral tablet (5 sources) alpha-Adrenergic Saman, beta-Adrenergic Saman Start: 06-18-2023 [...] oral tablet (1 source) Angiotensin 2 Receptor Saman Start: 10-14-2023 take 25 mg by mouth [...] oral every evening for 0 *Reorder from [facility] for eRx and Interaction Alerts* Feb, Active take 1 tablet by dayday th once daily in the evening metFORMIN HCl ER 500 MG TAKE 1 TABLET BY MOUTH EVERY EVENING for 90 Active metFORMIN HCl No t-Taking/PRN metFORMIN HCl No t-Taking metoprolol tartrate 50 mg oral tablet (13 sources) beta-Adrenergic Saman Start: 09-02-2021 take 1 tablet by mouth once daily Metoprolol Succinate ER 50MG Metoprolol Succinate ER 50MG, 1 (one) Tablet Tablet daily # 0, 09/02/2021, No Refill. Active Oral daily for 0 *Pick strength-form from [facility] for eRX* August, Active Start: 07-14-2018 End: [...] tablet (5 sources) Aldosterone Antagonist Start: 06-18-19 24 take [...] at bedtime for 0 *Pick strength-form from [facility] for eRX* Sep, Not-Taking/PRN take 1 tablet [...] 9:42am Start: 11-27-2021 take 1 tablet by dayday th twice daily Diclofenac Sodium 75MG Diclofenac Sodium 75MG, 1 Tablet Tablet twice a day # 0, 11/27/2021, No Refill. Active Oral twice a day for 0 *Pick strength-form from [facility] for eRX* Nov, Active Start: 06-22-2018 End: [...] oral tablet (5 sources) Angiotensin 2 Receptor Saman Start: 06-18-2023 [...] Essential hypertension; Translations: [Essential (primary) hypertension] Onset: Chronic Fluid and electrolyte disorders (2 sources) [...] Test Name Value Interpretation Reference Range Facility Follow-Upon 12-01-2023 Follow-Up [id number] Ngozi Cardoso 1960 F Date Provider Department Center 12/01/2023 166-BENY LANG CARD [facility] Family History Problem Relation Age of Onset Heart attack Mother Stroke Mother Atrial fibrillation Father Heart attack Brother Stroke Brother Family Status - Relation Status Age at Mother Father Brother Level of Service:69721 MT OFFICE/OUTPATIENT ESTABLISHED LOW MDM 20 MIN Reason for Visit and Comments: Atrial Fibrillation [80] Normal [facility] Telephoneon 11-17-2023 Telephone [id number] Ngozi Cardoso 1960 F Date Provider Department Center 11/17/2023 Beto-JEROMY ROACH [facility] Family History Problem Relation Age of Onset Heart attack Mother Stroke Mother Atrial fibrillation Father Heart attack Brother Stroke Brother Family Status - Relation Status Age at Mother Father Brother Reason for Visit and Comments: 3 week f/u post ablation [Other] Normal [facility] Telephoneon 11-04-2023 Telephone [id number] Ngozi Cardoso 1960 F Date Provider Department Center 11/04/20231986-JEROMY ROACH [facility] Family History Problem Relation Age of Onset Heart attack Mother Stroke Mother Atrial fibrillation Father Heart attack Brother Stroke Brother Family Status - Relation Status Age at Mother Father Brother Reason for Visit and Comments: week f/u post ablation [Other] Normal [facility] HPon 10-28-2023 [facility] Electrophysiology Consult Note Reason for visit: Afib 10/28/23 Pt here for Afib ablation. 10/05/23 patient underwent atrial flutter ablation and [...] done as soon as possible 06/08/23 HPI: Ngozi Cardoso is a 63 y.o. year old with past medical history of hypertension diabetes obstructive sleep apnea was admitted to [facility] with shortness of breath and was [...] Past Medical History: Diagnosis Date Abnormal ECG Acute kidney injury (CMS/HCC) Arrhythmia Atrial fibrillation (CMS/HCC) Atrial fibrillation (CMS/HCC) CHF (congestive heart failure) (CMS/HCC) Diabetes mellitus (CMS/HCC) DVT (deep venous thrombosis) (CMS/HCC) Hypertension Obesity BMI 55/58 PONV (postoperative nausea and vomiting) Sleep apnea Thrombocytopenia (CMS/HCC) PSH: Past Surgical History: Procedure Laterality Date CARDIAC CATHETERIZATION SECTION, CLASSIC OTHER SURGICAL HISTORY LOOP RECORDER INSERTION 07/12/23 REPLACEMENT TOTAL KNEE ONCOLOGIC SH: Social Determinants of Health Tobacco Use: Low Risk (10/28/2023) Patient History Smoking Tobacco Use: Never Smokeless [...] Intimate Partner Violence: Not At Risk (05/05/2023) [place] Safety & Environment Fear of Current or [...] Year: No Utilities: Not At Risk (05/05/2023) [facility] Utilities Threatened with loss of utilities: No Allergies: Allergies Allergen Reactions Penicillins Hives Weight: 152kg Visit Vitals BP 145/60 Pulse 70 Temp 36.3 ???C (97.3 ???F) (Temporal) Resp 17 Ht 1.651 m (5' 5 ) Wt (!) 152 kg (335 lb 15.7 oz) SpO2 100% BMI 55.91 kg/m??? OB Status Hysterectomy Smoking Status Never BSA 2.64 m??? Meds: No current facility-administered medications on file prior to encounter. Current Outpatient Medications on File Prior to Encounter Medication Sig Dispense Refill amiodarone (Pacerone) 200 mg tablet Take 1 tablet (200 mg) by mouth with breakfast. Do not start before May 25, 2023. 90 tablet 3 apixaban (Eliquis) 5 mg tablet Take 1 [...] or split. spironolactone (Aldactone) 25 mg tablet (more content not included)... Normal [facility] POCT GLUCOSE METER UNSOLICIT ED RESULTSon 10-28-2023 Glucose [Mass/Vol] 109 mg/dL High 70-105 [facility] Comment on above: Order Comment: Waive d Testing in the ED is performed under the ED CLIA certificate #[id number]. Result Comment: [address] Performed By: #### L [id number] #### [facility] ([facility]AK[facility]) [address] [place] [address] PROTIME-INRon 10-28-2023 INR IN PPP BY COAGULATION ASSAY 1.22 High 0.90-1.10 [facility] Comment on above: Result Comment: ACCC P RECOMMENDED INR FOR WARFARIN THERAPY CONDITION INR PROPHYLAXIS OF VENOUS THROMBOSIS 2-3 (HIGH-RISK SURGERY) TREATMENT OF VENOUS THROMBOSIS 2-3 TREATMENT OF PULMONARY EMBOLISM 2-3 PREVENTION OF SYSTEMIC EMBOLISM: 2-3 ACUTE MYOCARDIAL INFARCTION TISSUE HEART VALVES VALVULAR HEART DISEASE ATRIAL FIBRILLATION RECURRENT SYSTEMIC EMBOLISM MECHANICAL HEART VALVE 2.5-3.5 FROM: ORAL ANTICOAGULANTS. MECHANISM OF ACTION, CLINICAL EFFECTIVENESS, AND OPTIMAL THERAPEUTIC RANGE. CHEST 1995;108:231S-246S. Performed By: #### L [id number] #### [facility] ([facility]) [address] [place] [address] PROTHROMBIN TIME (PT) IN PPP BY COAGULATION ASSAY 15.4 Seconds High 12.3-14.8 [facility] Comment on above: Performed By: #### L AB15 #### [facility] ([facility]) [address] [place] [address] Prep for Procedureon 024 Prep for Procedure [id number] Ngozi Cardoso 1960 Date Provider Department Center 10/28/2023 1987-JEROMY ROACH [facility] Family History Problem Relation Age of Onset Heart attack Mother Stroke Mother Atrial fibrillation Father Heart attack Brother Stroke Brother Family Status - Relation Status Age at Mother Father Brother Normal [facility] Orders Onlyon 10-25-2023 Orders Only [id number] Ngozi Cardoso 1960 Date Provider Department Center 10/25/2023 1724-JOELLE COTA [facility] Family History Problem Relation Age of Onset Heart attack Mother Stroke Mother Atrial fibrillation Father Heart attack Brother Stroke Brother Family Status - Relation Status Age at Mother Father Brother Normal [facility] Office Visiton 10-05-2023 Follow-up visit [id number] Ngozi Cardoso 1960 Date Provider Department Center 10/05/2023 241-JOSE LUIS CRONIN [facility]iela [facility] Family History Problem Relation Age of Onset Heart attack Mother Stroke Mother Atrial fibrillation Father Heart attack Brother Stroke Brother Family Status - Relation Status Age at Mother Father Brother Level of Service:80642 MT OFFICE/OUTPATIENT ESTABLISHED HIGH MDM 40 MIN Normal [facility] Prep for Procedureon 024 Prep for Procedure [id number] Ngozi Cardoso 1960 Date Provider Department Center 10/05/2023 JOSE LUIS WILLIS [facility] Family History Problem Relation Age of Onset Heart attack Mother Stroke Mother Atrial fibrillation Father Heart attack Brother Stroke Brother Family Status - Relation Status Age at Mother Father Brother Normal [facility] Glucose mean value [Mass/vol ume] in Blood Estimated from glycated hemoglobinon 08-28-2023 Average glucose Estimated from glycated hemoglobin (Bld) [Mass/Vol] 111 mg/dL [facility] Laboratory - Hematology and Cell countson 08-28-2023 HbA1c (Bld) [Mass fraction] 5.5 % 4.5-6.2 [facility] Comment on above: ADA RECOMMENDED LIMI T 4.0 - 6.0ADA THERAPEUTIC TARGET < 7.0ACTION SUGGESTED> 7.0 Office Visiton 08-12-2023 Follow-up visit [id number] Ngozi Cardoso 1960 Date Provider Department Center 08/12/2023 Ori-BENY LANG [facility] Family History Problem Relation Age of Onset Heart attack Mother Stroke Mother Atrial fibrillation Father Heart attack Brother Stroke Brother Family Status - Relation Status Age at Mother Father Brother Level of Service:45000 MT OFFICE/OUTPATIENT ESTABLISHED MOD MDM 30 MIN Reason for Visit and Comments: Atrial Fibrillation [80] Congestive Heart Failure [127] Normal [facility] 36on 07-19-2023 36 Can wait to see how she does [facility] HPon 07-12-2023 [facility] Electrophysiology Consult Note Reason for visit: Afib HPI: Ngozi Cardoso is a 62 y.o. year old with past medical history of hypertension diabetes obstructive sleep apnea was admitted to [facility] with shortness of breath and was [...] file (05/05/2023) Utilities: Not At Risk (05/05/2023) [facility] Utilities Threatened with loss of utilities: [...] bilateral no (more content not included)... Normal [facility] NURSNOTEon 07-12-2023 NURSNOTE RN educated pt on d/ c instructions. RN encouraged pt to voice any questions or concerns. Pt verbalizes no questions or concerns at this time. Pt was wheeled off of unit with all of belongings. Normal [facility] Basophils Auto (Bld) [#/Vol] on 07-09-2023 Basophils (Bld) [#/Vol] 0.1 10 3/uL 0.0-0.1 [facility] Basophils/100 WBC Auto (Bld) on 07-09-2023 Basophils/100 WBC (Bld) 1.2 % 0.2-2.0 [facility] Eosinophils/100 WBC Auto (Bl d)on 07-09-2023 Eosinophils/100 WBC (Bld) 4.3 % 0.9-7.0 [facility] Erythrocyte distribution wid th Auto (RBC) [Ratio]on 07-09-2023 Erythrocyte distribution width (RBC) [Ratio] 15.3 % 11.0-15.0 [facility] Estimated glomerular filtrat ion rate (GFR) non- Americanon 07-09-2023 GFR/1.73 sq M.predicted among non-blacks MDRD (S/P/Bld) [Vol rate/Area] 43 mL/min/{1.73_m2} >=60 [facility] Hematocrit Auto (Bld) [Volum e fraction]on 07-09-2023 Hematocrit (Bld) [Volume fraction] 40.3 % 36.0-48.0 [facility] Hemoglobin [Mass/volume] in Bloodon 07-09-2023 Hemoglobin (Bld) [Mass/Vol] 12.8 g/dL 12.0-16.0 [facility] Laboratory - Chemistry and C hemistry - challengeon 07-09-2023 Calcium [Mass/Vol] 8.9 mg/dL 8.5-10.1 [facility] Chloride [Moles/Vol] 102 mmol/L 98-107 [facility] CO2 [Moles/Vol] 30.1 mmol/L 21.0-32.0 [facility] Creatinine [Mass/Vol] 1.27 mg/dL 0.55-1.02 [facility] GFR/1.73 sq M.predicted MDRD (S/P/Bld) [Vol rate/Area] 52 mL/min/{1.73_m2} >=60 [facility] Glucose [Mass/Vol] 114 mg/dL 74-106 [facility] Potassium [Moles/Vol] 3.7 mmol/L 3.5-5.1 [facility] Sodium [Moles/Vol] 142 mmol/L 136-145 [facility] Urea nitrogen [Mass/Vol] 18.0 mg/dL 7.0-18.0 [facility] Urea nitrogen/Creatinine [Mass ratio] 14.2 mg/mg [facility] Laboratory - Hematology and Cell countson 07-09-2023 Immature granulocytes/100 WBC (Bld) 0.2 % 0.0-0.5 [facility] Leukocytes [#/volume] correc renato for nucleated erythrocytes in Blood by Automated counon 07-09-2023 WBC corrected for nucl RBC Auto (Bld) [#/Vol] 4.2 10 3/uL 4.0-11.0 [facility] Lymphocytes Auto (Bld) [#/Vo l]on 07-09-2023 Lymphocytes (Bld) [#/Vol] 1.5 10 3/uL 1.2-3.8 [facility] Lymphocytes/100 WBC Auto (Bl d)on 07-09-2023 Lymphocytes/100 WBC (Bld) 34.8 % 20.5-60.0 [facility] MCH Auto (RBC) [Entitic mass ]on 07-09-2023 MCH (RBC) [Entitic mass] 29.0 pg 26.7-34.0 [facility] MCHC Auto (RBC) [Mass/Vol]on 07-09-2023 MCHC (RBC) [Mass/Vol] 31.8 g/dL 29.9-35.2 [facility] MCV Auto (RBC) [Entitic vol] on 07-09-2023 MCV (RBC) [Entitic vol] 91.4 fL 81.0-99.0 [facility] Monocytes Auto (Bld) [#/Vol] on 07-09-2023 Monocytes (Bld) [#/Vol] 0.3 10 3/uL 0.3-0.8 [facility] Monocytes/100 WBC Auto (Bld) on 07-09-2023 Monocytes/100 WBC (Bld) 7.6 % 1.7-12.0 [facility] Neutrophils Auto (Bld) [#/Vo l]on 07-09-2023 Neutrophils (Bld) [#/Vol] 2.2 10 3/uL 1.4-6.5 [facility] Neutrophils/100 WBC Auto (Bl d)on 07-09-2023 Neutrophils/100 WBC (Bld) 51.9 % 43.0-75.0 [facility] No Panel Informationon 07-08 Eosinophils # (Auto) 0.2 10 3/uL 0.0-0.7 [facility] Immature Granulocyte # (Auto) 0.01 10 3/uL 0.00-0.03 [facility] Platelet mean volume Auto (B ld) [Entitic vol]on 07-09-2023 Platelet mean volume (Bld) [Entitic vol] 12.4 fL 9.5-13.5 [facility] Platelets Auto (Bld) [#/Vol] on 07-09-2023 Platelets (Bld) [#/Vol] 108 10 3/uL 150-450 [facility] RBC Auto (Bld) [#/Vol]on RBC (Bld) [#/Vol] 4.41 10 6/uL 4.20-5.40 [facility] Serum or plasma anion gap de terminationon 07-09-2023 Anion gap [Moles/Vol] 13.6 mmol/L [facility] Orders Onlyon 07-08-2023 Orders Only [id number] Ngozi Cardoso 1960 F Date Provider Department Center 07/08/2023 MIKE RODRIGUEZ [facility] Family History Problem Relation Age of Onset Heart attack Mother Stroke Mother Atrial fibrillation Father Heart attack Brother Stroke Brother Family Status - Relation Status Age at Mother Father Brother Normal [facility] Office Visiton 06-30-2023 Follow-up visit [id number] Ngozi Cardoso 1960 F Date Provider Department Center 06/30/2023 120-LARA ROLAND [facility] Family History Problem Relation Age of Onset Heart attack Mother Stroke Mother Atrial fibrillation Father Heart attack Brother Stroke Brother Family Status - Relation Status Age at Mother Father Brother Level of Service:62007 MT OFFICE/OUTPATIENT ESTABLISHED LOW MDM 20 MIN Normal [facility] Office Visiton 06-18-2023 Follow-up visit [id number] Ngozi Cardoso 1960 F Date Provider Department Center 06/18/2023 120-LARA ROLAND [facility] Family History Problem Relation Age of Onset Heart attack Mother Stroke Mother Atrial fibrillation Father Heart attack Brother Stroke Brother Family Status - Relation Status Age at Mother Father Brother Level of Service:15534 MT OFFICE/OUTPATIENT ESTABLISHED MOD MDM 30 MIN Normal [facility] Office Visiton 06-08-2023 Follow-up visit [id number] Ngozi Cardoso 1960 F Date Provider Department Center 06/08/2023 241-JOSE LUIS CRONIN [facility] Family History Problem Relation Age of Onset Heart attack Mother Stroke Mother Atrial fibrillation Father Heart attack Brother Stroke Brother Family Status - Relation Status Age at Mother Father Brother Level of Service:43639 MT OFFICE/OUTPATIENT NEW HIGH MDM 60 MINUTES Normal [facility] Office Visiton 05-17-2023 Follow-up visit [id number] Ngozi Cardoso 1960 F Date Provider Department Center 05/17/2023 271-REGINA STARK [facility] Family History Problem Relation Age of Onset Heart attack Mother Stroke Mother Atrial fibrillation Father Heart attack Brother Stroke Brother Family Status - Relation Status Age at Mother Father Brother Level of Service:55129 MT OFFICE/OUTPATIENT ESTABLISHED LOW MDM 20 MIN Normal [facility] 36on 05-12-2023 36 Discharge date: 05/11/23 Call date: 05/12/23 Spoke with: patient HF Follow-up date: 05/17/23 Med reconciliation completed: yes Questions/Concerns: Home meds reviewe with pt. Pt asked about [employer] paperwork that her company was to fax over to the 3rd floor for the discharging provider. Job Foreman will reach out to the Hospitalist team. Pt is aware of follow up appt. Job Foreman encouraged pt to monitor daily weights and notified pt where to find education on her AVS to refer to. [facility] Documentationon 05-12-2023 Documentation [id number] Ngozi Cardoso 1960 F Date Provider Department Center 05/12/2023 [id number], MANDY [facility] No family history on file Reason for Visit and Comments: HF inpatient satisfaction survey sent. [Other] [facility] Telephoneon 05-12-2023 Telephone [id number] Ngozi Cardoso 1960 F Date Provider Department Center 05/12/2023 [id number], MANDY [facility] No family history on file Reason for Visit and Comments: HF post discharge call [Other] [facility] 30on 05-11-2023 30 Problem: Pain - Adul t Goal: Verbalizes/displays adequate comfort level or baseline comfort level Outcome: Progressing Problem: Safety - Adult Goal: Free from fall injury Outcome: Progressing Flowsheets (Taken 05/11/2023 0746) Free from fall injury: Assess patient frequently for physical needs Identify cognitive and physical deficits and behaviors that affect risk of falls [place] fall precautions as indicated by assessment Modify [...] integrity remains intact Recent Flowsheet Documentation Taken 05/11/2023 0733 by Verónica Pope RN Skin integrity remains [...] S/S of infection Recent Flowsheet Documentation Taken 05/11/2023 07 by Verónica Pope RN Incisions, wounds, or drain sites healing without sign and symptoms of infection: ADMISSION and DAILY: Assess and document risk factors for pressure ulcer development Problem: Genitourinary - Adult Goal: Absence of urinary retention Recent Flowsheet Documentation Taken 05/11/2023 07 by Verónica Pope RN Absence of urinary retention: Assess patient???s ability to void and empty bladder Monitor intake/output and perform bladder scan as needed Place urinary catheter per Licensed Independent Practitioner order if needed Discuss with Licensed Independent Practitioner medications to alleviate retention as needed Discuss catheterization for group home situations as appropriate The patient is Moderately Stable - Low risk of patient condition declining or worsening The patient's goals for the shift include comfort The clinical goals for the shift include safety Normal [facility] BASIC METABOLIC PANELon 04-20 Anion gap [Moles/Vol] 11 mmol/L Normal 7-20 [facility] Comment on above: Performed By: #### L AB15 #### [facility] ([facility]) [address] [place] [address] Calcium [Mass/Vol] 9.7 mg/dL Normal 8.6-10.3 [facility] Comment on above: Performed By: #### L AB15 #### [facility] ([facility]) [address] [place] [address] Chloride [Moles/Vol] 98 mmol/L Normal 98-107 [facility] Comment on above: Performed By: #### L AB15 #### [facility] ([facility]) [address] [place] [address] CO2 [Moles/Vol] 30 mmol/L Normal 21-31 [facility] Comment on above: Performed By: #### L AB15 #### [facility] ([facility]) [address] [place] [address] Creatinine [Mass/Vol] 0.80 mg/dL Normal 0.60-1.20 [facility] Comment on above: Performed By: #### L AB15 #### [facility] ([facility]) [address] [place] [address] GLOMERULAR FILTRATION RATE ML/MIN/1.73 SQ M.PREDICTED 83.8 mL/min/1.73m*2 Normal >60.0 [facility] Comment on above: Result Comment: The [facility]???s estimated glomerular filtration rate (eGFR) will no [...] individuals. Performed By: #### L AB15 #### [facility] ([facility]) [address] [place] [address] Glucose [Mass/Vol] 116 mg/dL High 70-100 [facility] Comment on above: Performed By: #### L AB15 #### [facility] ([facility]) [address] [place] [address] Potassium [Moles/Vol] 3.7 mmol/L Normal 3.5-5.1 [facility] Comment on above: Performed By: #### L AB15 #### [facility] ([facility]) [address] [place] [address] Sodium [Moles/Vol] 135 mmol/L Low 136-145 [facility] Comment on above: Performed By: #### L [id number] #### [facility] ([facility]) [address] [facility] [address] Urea nitrogen [Mass/Vol] 17 mg/dL Normal 7-25 [facility] Comment on above: Performed By: #### L [id number] #### [facility] ([facility]) [address] [place] [address] UREA NITROGEN/CREATININE (MASS RATIO) IN SER/PLAS 21.3 Normal [facility] Comment on above: Performed By: #### L [id number] #### [facility] ([facility]) [address] [place] [address] CBCon 05-11-2023 Erythrocyte distribution width (RBC) [Ratio] 15.2 % High 11.5-15.0 [facility] Comment on above: Performed By: #### L [id number] ####[facility] ([facility])[address] [place] [address] ERYTHROCYTE MEAN CORPUSCULAR HEMOGLOBIN CONCENTRATION (G/DL) BY AUTOMATED 31.9 g/dL Low 32.0-35.0 [facility] Comment on above: Performed By: #### L [id number] ####[facility] ([facility])[address] [place] [address] Hematocrit (Bld) [Volume fraction] 40.7 % Normal 36.0-48.0 [facility] Comment on above: Performed By: #### L [id number] ####[facility] ([facility])[address] [place] [address] Hemoglobin (Bld) [Mass/Vol] 13.0 g/dL Normal 12.0-15.0 [facility] Comment on above: Performed By: #### L [id number] ####[facility] ([facility])[address] [place] [address] MCH (RBC) [Entitic mass] 28.4 pg Normal 27.0-33.0 [facility] Comment on above: Performed By: #### L [id number] ####[facility] ([facility])[address] [place] [address] MCV (RBC) [Entitic vol] 88.9 fL Normal 82.0-98.0 [facility] Comment on above: Performed By: #### L [id number] ####[facility] ([facility])[address] [place] [address] PLATELETS (10*3/UL) IN BLOOD AUTOMATED COUNT 107 10*3/uL Low 150-400 [facility] Comment on above: Performed By: #### L [id number] ####[facility] ([facility])[address] [place] [address] RBC (Bld) [#/Vol] 4.58 10*6/uL Normal 3.80-5.00 [facility] Comment on above: Performed By: #### L [id number] ####[facility] ([facility])[address] [place] [address] WBC (Bld) [#/Vol] 4.32 10*3/uL Normal 4.00-10.60 [facility] Comment on above: Performed By: #### L [id number] ####[facility] ([facility])[address] [place] [address] LIPID PANELon 05-11-2023 CHOL/HDL 4.8 mg/dL Normal [facility] Comment on above: Performed By: #### L [id number] #### [facility] ([facility]) [address] [address] Cholesterol [Mass/Vol] 152 mg/dL Normal 120-200 [facility] Comment on above: Performed By: #### L [id number] #### [facility] ([facility]) [address] [place] [address] Magnesium [Mass/Vol] 77 mg/dL Normal 40-149 [facility] Comment on above: Result Comment: TRIG LYCERIDE REFERENCE RANGE: 20 YEARS AND OLDER CARDIOVASCULAR RISK LESS THAN 150 mg/dL LOW RISK 150 TO 199 mg/dL BORDERLINE RISK 200 mg/dL AND GREATER HIGH RISK Performed By: #### L [id number] #### [facility] [address] [place] [address] Magnesium [Mass/Vol] 105 mg/dL Normal 0-160 [facility] Comment on above: Performed By: #### L [id number] #### [facility] ([facility]) [address] [place] [address] Magnesium [Mass/Vol] 32 mg/dL Normal 23-92 [facility] Comment on above: Performed By: #### L [id number] #### [facility] ([facility]) [address] [place] [address] NON HDL CHOL. (LDL+VLDL) 120 Normal [facility] Comment on above: Performed By: #### L [id number] #### [facility] ([facility]) [address] [place] [address] TOTAL VLDL-C 15 mg/dL Normal 0-40 [facility] Comment on above: Performed By: #### L [id number] #### [facility] ([facility]) [address] [place] [address] MAGNESIUMon 05-11-2023 Magnesium [Mass/Vol] 1.7 mg/dL Low 1.9-2.7 [facility] Comment on above: Performed By: #### L [id number] #### [facility] ([facility]) [address] [place] [address] POCT GLUCOSE METER UNSOLICIT ED RESULTSon 05-11-2023 Glucose [Mass/Vol] 114 mg/dL High 70-105 [facility] Comment on above: Order Comment: Waive d Testing in the ED is performed under the ED CLIA certificate #[id number]. Result Comment: [email or web address] Performed By: #### L [id number] #### [facility] ([facility]) [address] [place] [address] 30on 05-10-2023 30 The patient is Moderately Stable - Low risk of patient condition declining or worsening The patient's goals for the shift include comfort The clinical goals for the shift include safety Normal [facility] 30 Problem: Pain - Adul t Goal: Verbalizes/displays adequate comfort level or baseline comfort level Outcome: Progressing Problem: Safety - Adult Goal: Free from fall injury Outcome: Progressing Flowsheets (Taken 05/10/2023 0848) Free from fall injury: Assess patient frequently for physical needs Identify cognitive and physical deficits and behaviors that affect risk of falls [place] fall precautions as indicated by assessment Educate [...] remains intact Recent Flowsheet Documentation Taken 05/10/2023 08 by Verónica Pope RN Skin integrity remains [...] S/S of infection Recent Flowsheet Documentation Taken 05/10/2023840 by Verónica Pope RN Incisions, wounds, or drain sites healing without sign and symptoms of infection: ADMISSION and DAILY: Assess and document risk factors for pressure ulcer development The patient is Moderately Stable - Low risk of patient condition declining or worsening The patient's goals for the shift include comfort The clinical goals for the shift include safety Normal [facility] BASIC METABOLIC PANELon 04-20 Anion gap [Moles/Vol] 8 mmol/L Normal 7-20 [facility] Comment on above: Performed By: #### L [id number] #### [facility] ([facility]) [address] [place] [address] Calcium [Mass/Vol] 9.7 mg/dL Normal 8.6-10.3 [facility] Comment on above: Performed By: #### L [id number] #### [facility] ([facility]) [address] [place] [address] Chloride [Moles/Vol] 99 mmol/L Normal 98-107 [facility] Comment on above: Performed By: #### L [id number] #### [facility] ([facility]) [address] [place] [address] CO2 [Moles/Vol] 33 mmol/L High 21-31 [facility] Comment on above: Performed By: #### L [id number] #### [facility] ([facility]) [address] [place] [address] Creatinine [Mass/Vol] 0.80 mg/dL Normal 0.60-1.20 [facility] Comment on above: Performed By: #### L [id number] #### [facility] ([facility]) [address] [address] GLOMERULAR FILTRATION RATE ML/MIN/1.73 SQ M.PREDICTED 83.8 mL/min/1.73m*2 Normal >60.0 [facility] Comment on above: Result Comment: The [facility]???s estimated glomerular filtration rate (eGFR) will no [...] group of individuals. Performed By: #### L [id number] #### [facility] ([facility]) [address] [place] [address] Glucose [Mass/Vol] 110 mg/dL High 70-100 [facility] Comment on above: Performed By: #### L [id number] #### [facility] ([facility]) [address] [address] Potassium [Moles/Vol] 3.8 mmol/L Normal 3.5-5.1 [facility] Comment on above: Performed By: #### L [id number] #### [facility] ([facility]) [address] [address] Sodium [Moles/Vol] 136 mmol/L Normal 136-145 [facility] Comment on above: Performed By: #### L [id number] #### [facility] ([facility]) [address] [place] [address] Urea nitrogen [Mass/Vol] 18 mg/dL Normal 7-25 [facility] Comment on above: Performed By: #### L [id number] #### [facility] ([facility]) [address] [place] [address] UREA NITROGEN/CREATININE (MASS RATIO) IN SER/PLAS 22.5 Normal [facility] Comment on above: Performed By: #### L [id number] #### [facility] ([facility]) [address] [place] [address] MAGNESIUMon 05-10-2023 Magnesium [Mass/Vol] 1.7 mg/dL Low 1.9-2.7 [facility] Comment on above: Performed By: #### L [id number] ####[facility] ([facility])[address] [place] [address] POCT GLUCOSE METER UNSOLICIT ED RESULTSon 05-10-2023 Glucose [Mass/Vol] 119 mg/dL High 70-105 [facility] Comment on above: Order Comment: Waive d Testing in the ED is performed under the ED CLIA certificate #[id number]. Result Comment: [email or web address] Performed By: #### L [id number] #### [facility] ([facility]) [address] [address] Glucose [Mass/Vol] 141 mg/dL High 70-105 [facility] Comment on above: Order Comment: Waive d Testing in the ED is performed under the ED CLIA certificate #[id number]. Result Comment: [email or web address] Performed By: #### L [id number] #### [facility] ([facility]) [address] [place] [address] Glucose [Mass/Vol] 162 mg/dL High 70-105 [facility] Comment on above: Order Comment: Waive d Testing in the ED is performed under the ED CLIA certificate #[id number]. Result Comment: [email or web address] Performed By: #### L [id number] #### [facility] ([facility]) [address] [place] [address] Glucose [Mass/Vol] 111 mg/dL High 70-105 [facility] Comment on above: Order Comment: Waive d Testing in the ED is performed under the ED CLIA certificate #[id number]. Result Comment: [email or web address] Performed By: #### L [id number] #### [facility] ([facility]) [address] [place] [address] 30on 05-09-2023 30 The patient is Moderately [...] medication and electrolyte replacement as ordered Normal [facility] 30 The patient is Moderately Stable - [...] maintained within prescribed range Outcome: Progressing Normal [facility] BASIC METABOLIC PANELon 04-20 Anion gap [Moles/Vol] 10 mmol/L Normal 7-20 [facility] Comment on above: Performed By: #### L [id number] #### [facility] ([facility]) [address] [place] [address] Calcium [Mass/Vol] 9.4 mg/dL Normal 8.6-10.3 [facility] Comment on above: Performed By: #### L [id number] #### [facility] ([facility]) [address] [place] [address] Chloride [Moles/Vol] 98 mmol/L Normal 98-107 [facility] Comment on above: Performed By: #### L [id number] #### [facility] ([facility]) [address] [place] [address] CO2 [Moles/Vol] 31 mmol/L Normal 21-31 [facility] Comment on above: Performed By: #### L [id number] #### [facility] ([facility]) [address] [place] [address] Creatinine [Mass/Vol] 0.90 mg/dL Normal 0.60-1.20 [facility] Comment on above: Performed By: #### L [id number] #### [facility] ([facility]) [address] [place] [address] GLOMERULAR FILTRATION RATE ML/MIN/1.73 SQ M.PREDICTED 72.7 mL/min/1.73m*2 Normal >60.0 [facility] Comment on above: Result Comment: The [facility]???s estimated glomerular filtration rate (eGFR) will no [...] individuals. Performed By: #### L [id number] #### [facility] ([facility]) [address] [place] [address] Glucose [Mass/Vol] 102 mg/dL High 70-100 [facility] Comment on above: Performed By: #### L [id number] #### [facility] ([facility]) [address] [place] [address] Potassium [Moles/Vol] 4.0 mmol/L Normal 3.5-5.1 [facility] Comment on above: Performed By: #### L [id number] #### [facility] ([facility]) [address] [place] [address] Sodium [Moles/Vol] 135 mmol/L Low 136-145 [facility] Comment on above: Performed By: #### L [id number] #### [facility] ([facility]) [address] [place] [address] Urea nitrogen [Mass/Vol] 20 mg/dL Normal 7-25 [facility] Comment on above: Performed By: #### L [id number] #### [facility] ([facility]) [address] [place] [address] UREA NITROGEN/CREATININE (MASS RATIO) IN SER/PLAS 22.2 Normal [facility] Comment on above: Performed By: #### L [id number] #### [facility] ([facility]) [address] [place] [address] CBCon 05-09-2023 Erythrocyte distribution width (RBC) [Ratio] 15.7 % High 11.5-15.0 [facility] Comment on above: Performed By: #### L [id number] #### [facility] ([facility]) [address] [place] [address] ERYTHROCYTE MEAN CORPUSCULAR HEMOGLOBIN CONCENTRATION (G/DL) BY AUTOMATED 32.6 g/dL Normal 32.0-35.0 [facility] Comment on above: Performed By: #### L [id number] #### [facility] ([facility]) [address] [place] [address] Hematocrit (Bld) [Volume fraction] 39.6 % Normal 36.0-48.0 [facility] Comment on above: Performed By: #### L [id number] #### [facility] ([facility]) [address] [place] [address] Hemoglobin (Bld) [Mass/Vol] 12.9 g/dL Normal 12.0-15.0 [facility] Comment on above: Performed By: #### L [id number] #### [facility] [address] [place] [address] MCH (RBC) [Entitic mass] 28.8 pg Normal 27.0-33.0 [facility] Comment on above: Performed By: #### L [id number] #### [facility] ([facility]) [address] [place] [address] MCV (RBC) [Entitic vol] 88.4 fL Normal 82.0-98.0 [facility] Comment on above: Performed By: #### L [id number] #### [facility] ([facility]) [address] [place] [address] PLATELETS (10*3/UL) IN BLOOD AUTOMATED COUNT 124 10*3/uL Low 150-400 [facility] Comment on above: Performed By: #### L [id number] #### [facility] ([facility]) [address] [place] [address] RBC (Bld) [#/Vol] 4.48 10*6/uL Normal 3.80-5.00 [facility] Comment on above: Performed By: #### L [id number] #### [facility] ([facility]) [address] [place] [address] WBC (Bld) [#/Vol] 4.51 10*3/uL Normal 4.00-10.60 [facility] Comment on above: Performed By: #### L [id number] #### [facility] ([facility]) [address] [place] [address] MAGNESIUMon 05-09-2023 Magnesium [Mass/Vol] 1.9 mg/dL Normal 1.9-2.7 [facility] Comment on above: Performed By: #### L [id number] #### [facility] ([facility]) [address] [place] [address] POCT GLUCOSE METER UNSOLICIT ED RESULTSon 05-09-2023 Glucose [Mass/Vol] 145 mg/dL High 70-105 [facility] Comment on above: Order Comment: Waive d Testing in the ED is performed under the ED CLIA certificate #[id number]. Result Comment: [email or web address] Performed By: #### L [id number] #### [facility] ([facility]) [address] [place] [address] Glucose [Mass/Vol] 118 mg/dL High 70-105 [facility] Comment on above: Order Comment: Waive d Testing in the ED is performed under the ED CLIA certificate #[id number]. Result Comment: [email or web address] Performed By: #### L [id number] #### [facility] ([facility]) [address] [place] [address] Glucose [Mass/Vol] 152 mg/dL High 70-105 [facility] Comment on above: Order Comment: Waive d Testing in the ED is performed under the ED CLIA certificate #[id number]. Result Comment: [email or web address] Performed By: #### L [id number] #### [facility] ([facility]) [address] [place] [address] Glucose [Mass/Vol] 105 mg/dL Normal 70-105 [facility] Comment on above: Order Comment: Waive d Testing in the ED is performed under the ED CLIA certificate #[id number]. Result Comment: [email or web address] Performed By: #### L [id number] #### [facility] ([facility]) [address] [place] [address] 30on 05-08-2023 30 The patient is Moderately Stable - Low risk of patient condition declining or worsening The patient's goals for the shift include comfort The clinical goals for the shift include safety Normal [facility] 30 The patient is Moderately Stable - [...] and maintained or improved Outcome: Progressing Normal [facility] APTTon 05-08-2023 ACTIVATED PARTIAL THROMBOPLASTIN TIME IN PPP BY COAGULATION ASSAY 36.7 Seconds High 25.0-35.0 [facility] Comment on above: Result Comment: Clin ical significance of the APTT is questionable in the presence of heparin. Performed By: #### L [id number] ####[facility] ([facility])[address] [place] [address] BASIC METABOLIC PANELon 04-20 Anion gap [Moles/Vol] 10 mmol/L Normal 7-20 [facility] Comment on above: Performed By: #### L [id number] #### [facility] ([facility]) [address] [place] [address] Calcium [Mass/Vol] 9.9 mg/dL Normal 8.6-10.3 [facility] Comment on above: Performed By: #### L [id number] #### [facility] ([facility]) [address] [place] [address] Chloride [Moles/Vol] 99 mmol/L Normal 98-107 [facility] Comment on above: Performed By: #### L [id number] #### [facility] ([facility]) [address] [place] [address] CO2 [Moles/Vol] 34 mmol/L High 21-31 [facility] Comment on above: Performed By: #### L [id number] #### [facility] ([facility]) [address] [place] [address] Creatinine [Mass/Vol] 0.90 mg/dL Normal 0.60-1.20 [facility] Comment on above: Performed By: #### L [id number] #### [facility] ([facility]) [address] [place] [address] GLOMERULAR FILTRATION RATE ML/MIN/1.73 SQ M.PREDICTED 72.7 mL/min/1.73m*2 Normal >60.0 [facility] Comment on above: Result Comment: The [facility]???s estimated glomerular filtration rate (eGFR) will no [...] individuals. Performed By: #### L [id number] #### [facility] ([facility]) [address] [place] [address] Glucose [Mass/Vol] 94 mg/dL Normal 70-100 [facility] Comment on above: Performed By: #### L [id number] #### [facility] ([facility]) [address] [place] [address] Potassium [Moles/Vol] 3.5 mmol/L Normal 3.5-5.1 [facility] Comment on above: Performed By: #### L [id number] #### [facility] ([facility]) [address] [place] [address] Sodium [Moles/Vol] 139 mmol/L Normal 136-145 [facility] Comment on above: Performed By: #### L [id number] #### [facility] ([facility]) [address] [place] [address] Urea nitrogen [Mass/Vol] 18 mg/dL Normal 7-25 [facility] Comment on above: Performed By: #### L [id number] #### [facility] ([facility]) [address] [facility] [facility] [place] [address] UREA NITROGEN/CREATININE (MASS RATIO) IN SER/PLAS 20.0 Normal [facility] Comment on above: Performed By: #### L [id number] #### [facility] ([facility]) [address] [place] [address] MAGNESIUMon 05-08-2023 Magnesium [Mass/Vol] 1.3 mg/dL Low 1.9-2.7 [facility] Comment on above: Performed By: #### L [id number] ####[facility] ([facility])[address] [place] [address] POCT GLUCOSE METER UNSOLICIT ED RESULTSon 05-08-2023 Glucose [Mass/Vol] 121 mg/dL High 70-105 [facility] Comment on above: Order Comment: Waive d Testing in the ED is performed under the ED CLIA certificate #[id number]. Result Comment: [email or web address] Performed By: #### L [id number] #### [facility] ([facility]) [address] [place] [address] Glucose [Mass/Vol] 110 mg/dL High 70-105 [facility] Comment on above: Order Comment: Waive d Testing in the ED is performed under the ED CLIA certificate #[id number]. Result Comment: [email or web address] Performed By: #### L [id number] #### [facility] ([facility]) [address] [place] [address] Glucose [Mass/Vol] 150 mg/dL High 70-105 [facility] Comment on above: Order Comment: Waive d Testing in the ED is performed under the ED CLIA certificate #[id number]. Result Comment: [email or web address] Performed By: #### L [id number] ####[facility] ([facility])[address] [place] [address] Glucose [Mass/Vol] 118 mg/dL High 70-105 [facility] Comment on above: Order Comment: Waive d Testing in the ED is performed under the ED CLIA certificate #[id number]. Result Comment: [email or web address] Performed By: #### L [id number] ####[facility] ([facility])[address] [place] [address] 30on 05-07-2023 30 The patient is Moderately Stable - Low risk of patient condition declining or worsening The patient's goals for the shift include comfort The clinical goals for the shift include safety Normal [facility] 30 Problem: Pain - Adul t Goal: [...] shift include cardiac cath without complications Normal [facility] APTTon 05-07-2023 ACTIVATED PARTIAL THROMBOPLASTIN TIME IN PPP BY COAGULATION ASSAY 123.2 Seconds High 25.0-35.0 [facility] Comment on above: Order Comment: Check aPTT every 6 hours while on heparin infusion, or per protocol. Result Comment: Clin ical significance of the APTT is questionable in the presence of heparin. Performed By: #### L [id number] ####[facility] ([facility])[address] [place] [address] BASIC METABOLIC PANELon 04-19 Anion gap [Moles/Vol] 11 mmol/L Normal 7-20 [facility] [facility] Comment on above: Performed By: #### L [id number] ####[facility] ([facility])[address] [place] [address] Calcium [Mass/Vol] 9.7 mg/dL Normal 8.6-10.3 [facility] Comment on above: Performed By: #### L [id number] ####[facility] ([facility])[address] [place] [address] Chloride [Moles/Vol] 98 mmol/L Normal 98-107 [facility] Comment on above: Performed By: #### L [id number] ####[facility] ([facility])[address] [place] [address] CO2 [Moles/Vol] 32 mmol/L High 21-31 [facility] Comment on above: Performed By: #### L [id number] ####[facility] ([facility])[address] [place] [address] Creatinine [Mass/Vol] 0.86 mg/dL Normal 0.60-1.20 [facility] Comment on above: Performed By: #### L [id number] ####[facility] ([facility] [place] [address] GLOMERULAR FILTRATION RATE ML/MIN/1.73 SQ M.PREDICTED 76.8 mL/min/1.73m*2 Normal >60.0 [facility] Comment on above: Result Comment: The [facility]???s estimated glomerular filtration rate (eGFR) will no [...] of individuals. Performed By: #### L [id number] ####[facility] ([facility])[address] [place] [address] Glucose [Mass/Vol] 110 mg/dL High 70-100 [facility] Comment on above: Performed By: #### L [id number] ####[facility] ([facility])[address] [place] [address] Potassium [Moles/Vol] 3.4 mmol/L Low 3.5-5.1 [facility] Comment on above: Performed By: #### L [id number] ####[facility] ([facility])[address] [place] [address] Sodium [Moles/Vol] 138 mmol/L Normal 136-145 [facility] Comment on above: Performed By: #### L [id number] ####[facility] ([facility] [place] [address] Urea nitrogen [Mass/Vol] 14 mg/dL Normal 7-25 [facility] Comment on above: Performed By: #### L [id number] ####[facility] ([facility])[address] [place] [address] UREA NITROGEN/CREATININE (MASS RATIO) IN SER/PLAS 16.3 Normal [facility] Comment on above: Performed By: #### L [id number] ####[facility] ([facility])[address] [place] [address] CBCon 05-07-2023 Erythrocyte distribution width (RBC) [Ratio] 15.7 % High 11.5-15.0 [facility] Comment on above: Performed By: #### L [id number] ####[facility] ([facility])[address] [place] [address] ERYTHROCYTE MEAN CORPUSCULAR HEMOGLOBIN CONCENTRATION (G/DL) BY AUTOMATED 32.4 g/dL Normal 32.0-35.0 [facility] Comment on above: Performed By: #### L [id number] ####[facility] ([facility])[address] [place] [address] Hematocrit (Bld) [Volume fraction] 38.3 % Normal 36.0-48.0 [facility] Comment on above: Performed By: #### L [id number] ####[facility] ([facility])[address] [place] [address] Hemoglobin (Bld) [Mass/Vol] 12.4 g/dL Normal 12.0-15.0 [facility] Comment on above: Performed By: #### L [id number] ####[facility] ([facility])[address] [place] [address] MCH (RBC) [Entitic mass] 28.6 pg Normal 27.0-33.0 [facility] Comment on above: Performed By: #### L [id number] ####[facility] ([facility])[address] [place] [address] MCV (RBC) [Entitic vol] 88.2 fL Normal 82.0-98.0 [facility] Comment on above: Performed By: #### L [id number] ####[facility] ([facility])[address] [place] [address] PLATELETS (10*3/UL) IN BLOOD AUTOMATED COUNT 121 10*3/uL Low 150-400 [facility] Comment on above: Performed By: #### L [id number] ####[facility] ([facility])[address] [place] [address] RBC (Bld) [#/Vol] 4.34 10*6/uL Normal 3.80-5.00 [facility] Comment on above: Performed By: #### L [id number] ####[facility] ([facility])[address] [place] [address] WBC (Bld) [#/Vol] 4.25 10*3/uL Normal 4.00-10.60 [facility] Comment on above: Performed By: #### L [id number] ####[facility] ([facility])[address] [place] [address] HPon 05-07-2023 HP H&P reviewed. The patient was examined and there are no changes to the H&P. Regina Stark MD, MPH, [facility], [facility], [facility] Interventional Cardiology Pager Email: [email or web address] Normal [facility] POCT GLUCOSE METER UNSOLICIT ED RESULTSon 05-07-2023 Glucose [Mass/Vol] 125 mg/dL High 70-105 [facility] Comment on above: Order Comment: Waive d Testing in the ED is performed under the ED CLIA certificate #[id number]. Result Comment: [email or web address] Performed By: #### L [id number] ####[facility] ([facility])[address] [place] [address] Glucose [Mass/Vol] 101 mg/dL Normal 70-105 [facility] Comment on above: Order Comment: Waive d Testing in the ED is performed under the ED CLIA certificate #[id number]. Result Comment: [email or web address] Performed By: #### L [id number] ####[facility] ([facility])[address] [place] [address] 30on 05-06-2023 30 The patient is Moderately Stable - Low risk of patient condition declining or worsening The patient's goals for the shift include comfort The clinical goals for the shift include VSS Problem: Pain - Adult Goal: Verbalizes/displays adequate comfort level or baseline comfort level Outcome: Progressing Flowsheets (Taken 05/06/2023806 by Denice Lala, RN) Verbalizes/displays adequate comfort level or baseline [...] Progressing Flowsheets (Taken 05/06/2023799 by Denice Lala, RN) Free from fall injury: Assess patient frequently for physical needs Identify cognitive and physical deficits and behaviors that affect risk of falls [place] fall precautions as indicated by assessment Educate [...] Progressing Flowsheets (Taken 05/06/2023799 by Denice Lala, RN) Care Plan - Patient's Chronic Conditions [...] and prevent overall improvement and discharge Normal [facility] 30 Daily Case Managemen t Update Multidisciplinary rounds have been completed. Barriers to Discharge: Pending clinical course and improvement in clinical condition. Patient admitted with chronic heart failure transferred from [facility]. Plan for coronary angiography tomorrow per Cardiology. Diet: Dietary Orders (From admission, onward) Start Ordered 05/07/23 0001 Diet NPO Diet effective midnight Comments: Sips with medications Question: Reason for NPO: Answer: Operation/Procedure 05/06/23 1502 05/06/23 1515 Special Kitchen Request Once Comments: Pls send for lunch tray now (pt did not like/eat any of the generated tray) chicken salad sandwich on wheat, peach azeri yogurt, diet cola 05/06/23 1516 05/05/23 2154 Regular Diet Diabetic Female (carb 45g/meal) Diet effective now Question Answer Comment Room Service? Yes Carbohydrate restriction: Diabetic Female (carb 45g/meal) 05/05/232152 Physician Expected Discharge Date: Discharge Delays: PT Six Click Score: 23 OT Six Click Score: PT Recommendations: OT Recommendations: New Consults: Normal [facility] 30 Problem: Pain - Adul t Goal: Verbalizes/displays adequate comfort level or baseline comfort level Outcome: Progressing Flowsheets (Taken 05/06/2023 0807) Verbalizes/displays adequate comfort level or baseline comfort [...] fall injury Outcome: Progressing Flowsheets (Taken 05/06/2023 08) Free from fall injury: Assess patient frequently for physical needs Identify cognitive and physical deficits and behaviors that affect risk of falls [place] fall precautions as indicated by assessment Educate patient/family on patient safety, including physical limitations Instruct patient to call for assistance with activity based on assessment Modify environment to reduce risk of injury Consider OT/PT consult to assist with strengthening/mobility Problem: Discharge Planning Goal: Discharge to home or other facility with appropriate resources Outcome: Progressing Flowsheets (Taken 05/06/2023 08) Discharge to home or other facility with [...] or improved Outcome: Progressing Flowsheets (Taken 05/06/2023 0800) Care Plan - Patient's Chronic Conditions and [...] for the shift include hemodynamically stable Normal [facility] APTTon 05-06-2023 ACTIVATED PARTIAL THROMBOPLASTIN TIME IN PPP BY COAGULATION ASSAY 106.0 Seconds High 25.0-35.0 [facility] Comment on above: Order Comment: Check aPTT every 6 hours while on heparin infusion, or per protocol. Result Comment: Clin ical significance of the APTT is questionable in the presence of heparin. Performed By: #### L [id number] ####[facility] ([facility])[address] [place] [address] ACTIVATED PARTIAL THROMBOPLASTIN TIME IN PPP BY COAGULATION ASSAY 104.8 Seconds High 25.0-35.0 [facility] Comment on above: Order Comment: Check aPTT every 6 hours while on heparin infusion, or per protocol. Result Comment: Clin ical significance of the APTT is questionable in the presence of heparin. Performed By: #### L [id number] ####[facility] ([facility])[address] [place] [address] ACTIVATED PARTIAL THROMBOPLASTIN TIME IN PPP BY COAGULATION ASSAY 134.0 Seconds Critically high 25.0-35.0 [facility] Comment on above: Order Comment: Check aPTT every 6 hours while on heparin infusion, or per protocol. Result Comment: Clin ical significance of the APTT is questionable in the presence of heparin. Performed By: #### L [id number] #### [facility] ([facility]) [address] [place] [address] ACTIVATED PARTIAL THROMBOPLASTIN TIME IN PPP BY COAGULATION ASSAY 143.7 Seconds Critically high 25.0-35.0 [facility] Comment on above: Order Comment: Basel ine aPTT before initiating heparin infusion. Result Comment: Clin ical significance of the APTT is questionable in the presence of heparin. Performed By: #### L [id number] ####[facility] ([facility])[address] [place] [address] COMPREHENSIVE METABOLIC PANE Shamir 05-06-2023 Albumin [Mass/Vol] 3.6 g/dL Normal 3.5-5.7 [facility] Comment on above: Performed By: #### L [id number] ####[facility] ([facility])[address] [place] [address] ALP [Catalytic activity/Vol] 41 U/L Normal 34-104 [facility] Comment on above: Performed By: #### L [id number] ####[facility] ([facility])[address] [place] [address] ALT [Catalytic activity/Vol] 24 U/L Normal 7-52 [facility] Comment on above: Performed By: #### L [id number] ####[facility] ([facility])[address] [place] [address] Anion gap [Moles/Vol] 14 mmol/L Normal 7-20 [facility] Comment on above: Performed By: #### L [id number] ####[facility] ([facility])[address] [place] [address] AST [Catalytic activity/Vol] 42 U/L High 13-39 [facility] Comment on above: Performed By: #### L [id number] ####[facility] ([facility])[address] [place] [address] Bilirubin [Mass/Vol] 1.3 mg/dL High 0.3-1.0 [facility] Comment on above: Performed By: #### L [id number] ####[facility] ([facility])[address] [place] [address] Calcium [Mass/Vol] 9.7 mg/dL Normal 8.6-10.3 [facility] Comment on above: Performed By: #### L [id number] ####[facility] ([facility])[address] [place] [address] Chloride [Moles/Vol] 101 mmol/L Normal 98-107 [facility] Comment on above: Performed By: #### L [id number] ####[facility] ([facility])[address] [place] [address] CO2 [Moles/Vol] 27 mmol/L Normal 21-31 [facility] Comment on above: Performed By: #### L [id number] ####[facility] ([facility])[address] [place] [address] Creatinine [Mass/Vol] 0.74 mg/dL Normal 0.60-1.20 [facility] Comment on above: Performed By: #### L [id number] ####[facility] ([facility])[address] [place] [address] GLOMERULAR FILTRATION RATE ML/MIN/1.73 SQ M.PREDICTED 92.0 mL/min/1.73m*2 Normal >60.0 [facility] Comment on above: Result Comment: The [facility]???s estimated glomerular filtration rate (eGFR) will no [...] of individuals. Performed By: #### L [id number] ####[facility] ([facility])[address] [place] [address] Glucose [Mass/Vol] 101 mg/dL High 70-100 [facility] Comment on above: Performed By: #### L [id number] ####[facility] ([facility] [place] [address] Potassium [Moles/Vol] 3.6 mmol/L Normal 3.5-5.1 [facility] Comment on above: Performed By: #### L [id number] ####[facility] ([facility])[address] [place] [address] Protein [Mass/Vol] 7.2 g/dL Normal 6.0-8.3 [facility] Comment on above: Performed By: #### L [id number] ####[facility] ([facility])[address] [place] [address] Sodium [Moles/Vol] 138 mmol/L Normal 136-145 [facility] Comment on above: Performed By: #### L [id number] ####[facility] ([facility])[address] [place] [address] Urea nitrogen [Mass/Vol] 13 mg/dL Normal 7-25 [facility] Comment on above: Performed By: #### L [id number] ####[facility] ([facility])[address] [place] [address] UREA NITROGEN/CREATININE (MASS RATIO) IN SER/PLAS 17.6 Normal [facility] Comment on above: Performed By: #### L [id number] ####[facility] ([facility])[address] [place] [address] CONSULTon 05-06-2023 CONSULT -- Attestation signed by [...] obstructive sleep apnea who was admitted to [facility] with sudden onset shortness of breath. Reports that she woke up suddenly from sleep feeling short of breath. She initially thought that this was a COVID infection. In the ED at [facility], she was noted to be in atrial [...] branch block pattern. Patient was transferred to [facility] for further evaluation.Patient denies any history of [...] Value Ventricular Rate 81 Atrial Rate 81 MT Interval 208 QRS DURATION 178 QT Interval 442 QTC CALCULATION(BAZETT) 513 P [place] 34 R-[place] -48 T Wave [place] 101 Impression Normal sinus rhythm Left axis deviation Left bundle branch block Abnormal ECG When compared with ECG of 13-FEB-2013 09:22, No significant change was found Confirmed by Jose Luis Cronin ([id number]) on 05/05/2023 9:15:31 PM Lab Results Component Value Date TROPONINI 0. (more content not included)... Normal [facility] HPon 05-06-2023 HP -- Attestation signed by [...] obstructive sleep apnea who was admitted to [facility] with sudden onset shortness of breath. Reports that she woke up suddenly from sleep feeling short of breath. She initially thought that this was a COVID infection. In the ED at [facility], she was noted to be in atrial [...] branch block pattern. Patient was transferred to [facility] for further evaluation.Patient denies any history of [...] Value Ventricular Rate 81 Atrial Rate 81 MT Interval 208 QRS DURATION 178 QT Interval 442 QTC CALCULATION(BAZETT) 513 P [place] 34 R-[place] -48 T Wave [place] 101 Impression Normal sinus rhythm Left axis deviation Left bundle branch block Abnormal ECG When compared with ECG of 13-FEB-2013 09:22, No significant change was found Confirmed by Jose Luis Cronin ([id number]) on 05/05/2023 9:15:31 PM Lab Results Component Value Date TROPONINI 0. (more content not included)... Normal [facility] MAGNESIUMon 05-06-2023 Magnesium [Mass/Vol] 1.5 mg/dL Low 1.9-2.7 [facility] Comment on above: Performed By: #### L [id number] #### [facility] ([employer]) [address] [place] [address] PLATELET COUNTon 05-06-2023 PLATELETS (10*3/UL) IN BLOOD AUTOMATED COUNT 121 10*3/uL Low 150-400 [facility] Comment on above: Performed By: #### L [id number] ####[facility] ([email or web address])[address] [place] [address] POCT GLUCOSE METER UNSOLICIT ED RESULTSon 05-06-2023 Glucose [Mass/Vol] 105 mg/dL Normal 70-105 [facility] Comment on above: Order Comment: Waive d Testing in the ED is performed under the ED CLIA certificate #[id number]. Result Comment: [email or web address] Performed By: #### L [id number] ####[facility] ([email or web address])[address] [place] [address] Glucose [Mass/Vol] 116 mg/dL High 70-105 [facility] Comment on above: Order Comment: Waive d Testing in the ED is performed under the ED CLIA certificate #[id number]. Result Comment: [email or web address] Performed By: #### L [id number] #### [facility] ([facility]) [address] [address] Glucose [Mass/Vol] 131 mg/dL High 70-105 [facility] Comment on above: Order Comment: Waive d Testing in the ED is performed under the ED CLIA certificate #[id number]. Result Comment: [email or web address] Performed By: #### L [id number] #### [facility] ([facility]) [address] [address] Glucose [Mass/Vol] 100 mg/dL Normal 70-105 [facility] Comment on above: Order Comment: Waive d Testing in the ED is performed under the ED CLIA certificate #[id number]. Result Comment: [email or web address] Performed By: #### L [id number] #### [facility] ([facility]) [address] [address] T4, FREEon 05-06-2023 THYROXINE (T4) FREE (NG/DL) IN SER/PLAS 1.08 ng/dL Normal 0.71-1.85 [facility] Comment on above: Performed By: #### L [id number] #### [facility] ([facility]) [address] [place] [place] [address] TROPONIN Ion 05-06-2023 Troponin I.cardiac [Mass/Vol] 0.01 ng/mL Normal 0.00-0.04 [facility] Comment on above: Performed By: #### L [id number] ####[facility] ([facility])[address] [place] [address] TSH3 REFLEX TO FT4on 024 THYROTROPIN (MIU/L) IN SER/PLAS BY DETECTION LIMIT <= 0.05 MIU/L 5.84 mIU/L High 0.34-5.60 [facility] Comment on above: Performed By: #### L [id number] ####[facility] ([facility])[address] [facility] [place] [address] 30on 05-05-2023 30 The patient is Moderately [...] and behaviors that affect risk of falls [place] fall precautions as indicated by assessment Educate [...] and prevent overall improvement and discharge Normal [facility] B-TYPE NATRIURETIC PEPTIDEon 05-05-2023 Natriuretic peptide B (Bld) [Mass/Vol] 97 pg/mL Normal 0-100 [facility] Comment on above: Performed By: #### L [id number] #### [facility] ([facility] [address] [place] [address] BASIC METABOLIC PANELon 04-19 Anion gap [Moles/Vol] 11 mmol/L Normal 7-20 [facility] Comment on above: Performed By: #### L [id number] #### [facility] ([facility] [address] [place] [address] Calcium [Mass/Vol] 9.5 mg/dL Normal 8.6-10.3 [facility] Comment on above: Performed By: #### L [id number] #### [facility] ([facility]) [address] [place] [address] Chloride [Moles/Vol] 101 mmol/L Normal 98-107 [facility] Comment on above: Performed By: #### L [id number] #### [facility] ([facility]) [address] [place] [address] CO2 [Moles/Vol] 30 mmol/L Normal 21-31 [facility] Comment on above: Performed By: #### L [id number] #### [facility] ([facility]) [address] [place] [address] Creatinine [Mass/Vol] 0.69 mg/dL Normal 0.60-1.20 [facility] Comment on above: Performed By: #### L [id number] #### [facility] ([facility]) [address] [place] [address] GLOMERULAR FILTRATION RATE ML/MIN/1.73 SQ M.PREDICTED 98.7 mL/min/1.73m*2 Normal >60.0 [facility] Comment on above: Result Comment: The [facility]???s estimated glomerular filtration rate (eGFR) will no [...] individuals. Performed By: #### L [id number] #### [facility] ([facility]) [address] [place] [address] Glucose [Mass/Vol] 90 mg/dL Normal 70-100 [facility] Comment on above: Performed By: #### L [id number] #### [facility] ([facility]) [address] [place] [address] Potassium [Moles/Vol] 3.8 mmol/L Normal 3.5-5.1 [facility] Comment on above: Performed By: #### L [id number] #### [facility] ([facility]) [address] [place] [address] Sodium [Moles/Vol] 138 mmol/L Normal 136-145 [facility] Comment on above: Performed By: #### L [id number] #### [facility] ([facility]) [address] [place] [address] Urea nitrogen [Mass/Vol] 13 mg/dL Normal 7-25 [facility] Comment on above: Performed By: #### L [id number] #### [facility] ([facility]) [address] [place] [address] UREA NITROGEN/CREATININE (MASS RATIO) IN SER/PLAS 18.8 Normal [facility] Comment on above: Performed By: #### L [id number] #### [facility] ([facility]) [address] [place] [address] CBCon 05-05-2023 Erythrocyte distribution width (RBC) [Ratio] 15.7 % High 11.5-15.0 [facility] Comment on above: Performed By: #### L [id number] #### [facility] ([facility]) [address] [place] [address] ERYTHROCYTE MEAN CORPUSCULAR HEMOGLOBIN CONCENTRATION (G/DL) BY AUTOMATED 32.6 g/dL Normal 32.0-35.0 [facility] Comment on above: Performed By: #### L [id number] #### [facility] ([facility]) [address] [place] [address] Hematocrit (Bld) [Volume fraction] 39.9 % Normal 36.0-48.0 [facility] Comment on above: Performed By: #### L [id number] #### [facility] ([facility]) [address] [place] [address] Hemoglobin (Bld) [Mass/Vol] 13.0 g/dL Normal 12.0-15.0 [facility] Comment on above: Performed By: #### L [id number] #### [facility] ([facility]) [address] [place] [address] MCH (RBC) [Entitic mass] 28.9 pg Normal 27.0-33.0 [facility] Comment on above: Performed By: #### L [id number] #### [facility] ([facility]) [address] [place] [address] MCV (RBC) [Entitic vol] 88.7 fL Normal 82.0-98.0 [facility] Comment on above: Performed By: #### L [id number] #### [facility] ([facility]) [address] [place] [address] PLATELETS (10*3/UL) IN BLOOD AUTOMATED COUNT 139 10*3/uL Low 150-400 [facility] Comment on above: Performed By: #### L [id number] #### [facility] ([facility]) [address] [place] [address] RBC (Bld) [#/Vol] 4.50 10*6/uL Normal 3.80-5.00 [facility] Comment on above: Performed By: #### L [id number] #### [facility] ([facility]) [address] [place] [address] WBC (Bld) [#/Vol] 5.73 10*3/uL Normal 4.00-10.60 [facility] Comment on above: Performed By: #### L [id number] #### [facility] ([facility]) [address] [place] [address] MAGNESIUMon 05-05-2023 Magnesium [Mass/Vol] 1.4 mg/dL Low 1.9-2.7 [facility] Comment on above: Performed By: #### L [id number] #### [facility] ([facility]) [address] [place] [address] POCT GLUCOSE METER UNSOLICIT ED RESULTSon 05-05-2023 Glucose [Mass/Vol] 87 mg/dL Normal 70-105 [facility] Comment on above: Order Comment: Waive d Testing in the ED is performed under the ED CLIA certificate #[id number]. Result Comment: [email or web address] Performed By: #### L [id number] #### [facility] ([facility]) [address] [place] [address] TROPONIN Ion 05-05-2023 Troponin I.cardiac [Mass/Vol] 0.03 ng/mL Normal 0.00-0.04 [facility] Comment on above: Performed By: #### L [id number] #### [facility] ([facility]) [address] [place] [address] CBC AUTO DIFFon 02-21-2022 BASO # 0.0 103/ul Normal 0.0-0.1 [facility] Comment on above: Performed By: #### C BC #### [facility] [address] [place] [address] Dr. Rivas Zhao Basophils/100 WBC (Bld) 0.7 % Normal 0.2-2.0 [facility] Comment on above: Performed By: #### C BC #### [facility] [address] [address] [address] Riavs Zhao EO # 0.2 103/ul Normal 0.0-0.7 [facility] Comment on above: Performed By: #### C BC #### [facility] [address] [place] [address] Dr. Rivas Zhao Eosinophils/100 WBC (Bld) 3.4 % Normal 0.9-7.0 [facility] Comment on above: Performed By: #### C BC #### [facility] [address] [place] [address] Dr. Rivas Zhao Erythrocyte distribution width (RBC) [Ratio] 14.8 % Normal 11.0-15.0 [facility] Comment on above: Performed By: #### C BC #### [facility] [address] [place] [address] Dr. Rivas Zhao Hematocrit (Bld) [Volume fraction] 38.4 % Normal 36.0-48.0 [facility] Comment on above: Performed By: #### C BC #### [facility] [address] [place] [address] Dr. Rivas Zhao Hemoglobin (Bld) [Mass/Vol] 12.7 g/dL Normal 12.0-16.0 [facility] Comment on above: Performed By: #### C BC #### [facility] [address] [place] [address] Dr. Rivas Zhao IG # 0.01 10e3/ul Normal 0.00-0.03 [facility] Comment on above: Performed By: #### C BC #### [facility] [address] [place] [address] Dr. Rivas Zhao IG % 0.2 % Normal 0.0-0.5 [facility] Comment on above: Performed By: #### C BC #### [facility] [address] [place] [address] Dr. Rivas Zhao LYMPH # 1.5 103/ul Normal 1.2-3.8 [facility] Comment on above: Performed By: #### C BC #### [facility] [address] [place] [address] Dr. Rivas Zhao Lymphocytes/100 WBC (Bld) 34.9 % Normal 20.5-60.0 [facility] Comment on above: Performed By: #### C BC #### [facility] [address] [place] [address] Dr. Rivas Zhao MANUAL DIFF REQ NO Normal [facility] Comment on above: Performed By: #### C BC #### [facility] [address] [address] [address] Rivas Zhao MCH (RBC) [Entitic mass] 30.2 pg Normal 26.7-34.0 [facility] Comment on above: Performed By: #### C BC #### [facility] [address] [place] [address] Dr. Rivas Zhao MCHC (RBC) [Mass/Vol] 33.1 g/dL Normal 29.9-35.2 [facility] Comment on above: Performed By: #### C BC #### [facility] [address] [place] [address] Dr. Rivas Zhao MCV (RBC) [Entitic vol] 91.2 fL Normal 81.0-99.0 [facility] Comment on above: Performed By: #### C BC #### [facility] [address] [place] [address] Dr. Rivas Zhao MONO # 0.3 103/ul Normal 0.3-0.8 [facility] Comment on above: Performed By: #### C BC #### [facility] [address] [place] [address] Dr. Rivas Zhao Monocytes/100 WBC (Bld) 5.9 % Normal 1.7-12.0 [facility] Comment on above: Performed By: #### C BC #### [facility] [address] [place] [address] Dr. Rivas Zhao NEUT # 2.4 103/ul Normal 1.4-6.5 [facility] Comment on above: Performed By: #### C BC #### [facility] [address] [place] [address] Dr. Rivas Zhao Neutrophils/100 WBC (Bld) 54.9 % Normal 43.0-75.0 [facility] Comment on above: Performed By: #### C BC #### [facility] [address] [place] [address] Dr. Rivas Zhao Platelet mean volume (Bld) [Entitic vol] 11.9 fL Normal 9.5-13.5 [facility] Comment on above: Performed By: #### C BC #### [facility] [address] [address] [address] Rivas Zhao PLT 107 103/ul Critically low 150-450 [facility] Comment on above: Performed By: #### C BC #### [facility] [address] [address] [address] Rivas Zhao RBC 4.21 106/ul Normal 4.20-5.40 [facility] Comment on above: Performed By: #### C BC #### [facility] [address] [address] [address] Rivas Zhao WBC 4.4 103/ul Normal 4.0-11.0 [facility] Comment on above: Performed By: #### C BC #### [facility] [address] [place] [address] Dr. Rivas Zhao GLYCOHEMOGLOBIN A1Con 2021 ADA RECOMMENDATION SEE BELOW Normal [facility] Comment on above: Result Comment: ADA RECOMMENDED LIMIT 4.0 - 6.0 ADA THERAPEUTIC TARGET < 7.0 ACTION SUGGESTED > 7.0 Performed By: #### A 1C #### [facility] [address] [place] [address] Dr. Rivas Zhao Glucose [Mass/Vol] 117 mg/dL Normal [facility] Comment on above: Performed By: #### A 1C #### [facility] [address] [place] [address] Dr. Rivas Zhao HbA1c (Bld) [Mass fraction] 5.7 % Normal 4.5-6.2 [facility] Comment on above: Performed By: #### A 1C #### [facility] [address] [place] [address] Dr. Rivas Zhao LIPID PROFILEon 02-21-2022 CHOL-HDL RATIO NORM SEE BELOW Normal [facility] Comment on above: Result Comment: 3.3 - 4.4 LOW RISK 4.4 - 7.1 AVERAGE RISK 7.1 - 11.0 MODERATE RISK >11.0 HIGH RISK Performed By: #### L IPID, CMP #### [facility] [address] [address] [address] Rivas Zhao Cholesterol [Mass/Vol] 160 mg/dL Normal <=200 [facility] Comment on above: Performed By: #### L IPID, CMP #### [facility] [address] [address] [address] Rivas Zhao Cholesterol in HDL [Mass/Vol] 49 mg/dL Normal 40-60 [facility] Comment on above: Performed By: #### L IPID, CMP #### [facility] [address] [address] [address] Rivas Zhao Cholesterol in LDL [Mass/Vol] 96.0 mg/dL Normal [facility] Comment on above: Performed By: #### L IPID, CMP #### [facility] [address] [address] [address] Rivas Zhao Cholesterol.total/Ch olesterol in HDL [Mass ratio] 3.3 {ratio} Normal [facility] Comment on above: Performed By: #### L IPID, CMP #### [facility] [address] [address] [address] Rivas Zhao HDL NORMAL > or = 60 mg/dl - LO W CARDIOVASCULAR RISK <40 mg/dl - HIGH CARDIOVASCULAR RISK Normal [facility] Comment on above: Performed By: #### L IPID, CMP #### [facility] [address] [address] [address] Rivas Zhao LDL CALC NORMAL SEE BELOW Normal [facility] Comment on above: Result Comment: <100 mg/dl OPTIMAL 100 - 129 mg/dl NEAR OR ABOVE OPTIMAL 130 - 159 mg/dl BORDERLINE HIGH 160 - 189 mg/dl HIGH >190 mg/dl VERY HIGH Performed By: #### L IPID, CMP #### [facility] [address] [address] [address] Rivas Zhao Triglyceride [Mass/Vol] 75 mg/dL Normal <=150 [facility] Comment on above: Performed By: #### L IPID, CMP #### [facility] [address] [address] [address] Rivas Zhao VLDL CALC 15.0 mg/dL Normal [facility] Comment on above: Performed By: #### L IPID, CMP #### [facility] [address] [address] [address] Rivas Zhao PROF 14(COMP METB)on 022 Albumin [Mass/Vol] 3.0 g/dL Critically low 3.4-5.0 [facility] Comment on above: Performed By: #### L IPID, CMP #### [facility] [address] [address] [address] Rivas Zhao Albumin/Globulin [Mass ratio] 0.6 {ratio} Normal [facility] Comment on above: Performed By: #### L IPID, CMP #### [facility] [address] [place] [address] Dr. Rivas Zhao ALP [Catalytic activity/Vol] 74 U/L Normal 46-116 [facility] Comment on above: Performed By: #### L IPID, CMP #### [facility] [address] [place] [address] Dr. Rivas Zhao ALT [Catalytic activity/Vol] 59 U/L Normal 14-59 [facility] Comment on above: Performed By: #### L IPID, CMP #### [facility] [address] [place] [address] Dr. Rivas Zhao Anion gap [Moles/Vol] 9.2 mmol/L Normal [facility] Comment on above: Performed By: #### L IPID, CMP #### [facility] [address] [address] [address] Rivas Zhao AST [Catalytic activity/Vol] 65 U/L Critically high 15-37 [facility] Comment on above: Performed By: #### L IPID, CMP #### [facility] [address] [place] [address] Dr. Rivas Zhao Bilirubin [Mass/Vol] 1.1 mg/dL Critically high 0.2-1.0 [facility] Comment on above: Performed By: #### L IPID, CMP #### [facility] [address] [place] [address] Dr. Rivas Zhao Calcium [Mass/Vol] 8.8 mg/dL Normal 8.5-10.1 [facility] Comment on above: Performed By: #### L IPID, CMP #### [facility] [address] [place] [address] Dr. Rivas Zhao Chloride [Moles/Vol] 102 mmol/L Normal 98-107 [facility] Comment on above: Performed By: #### L IPID, CMP #### [facility] [address] [place] [address] Dr. Rivas Zhao CO2 [Moles/Vol] 32.5 mmol/L Critically high 21.0-32.0 [facility] Comment on above: Performed By: #### L IPID, CMP #### [facility] [address] [place] [address] Dr. Rivas Zhao Creatinine [Mass/Vol] 0.76 mg/dL Normal 0.55-1.02 [facility] Comment on above: Performed By: #### L IPID, CMP #### [facility] [address] [place] [address] Dr. Rivas Zhao EGFR-AF COLOMBIAN >60 Normal >=60 [facility] Comment on above: Performed By: #### L IPID, CMP #### [facility] [address] [place] [address] Dr. Rivas Zhao EGFR-NON AF COLOMBIAN >60 Normal >=60 [facility] Comment on above: Performed By: #### L IPID, CMP #### [facility] [address] [place] [address] Dr. Rivas Zhao Globulin (S) [Mass/Vol] 4.7 g/dL Normal [facility] Comment on above: Performed By: #### L IPID, CMP #### [facility] [address] [place] [address] Dr. Rivas Zhao Glucose [Mass/Vol] 109 mg/dL Critically high 74-106 [facility] Comment on above: Performed By: #### L IPID, CMP #### [facility] [address] [place] [address] Dr. Rivas Zhao Potassium [Moles/Vol] 3.7 mmol/L Normal 3.5-5.1 [facility] Comment on above: Performed By: #### L IPID, CMP #### [facility] [address] [address] [address] Rivas Zhao Protein [Mass/Vol] 7.7 g/dL Normal 6.4-8.2 [facility] Comment on above: Performed By: #### L IPID, CMP #### [facility] [address] [address] [address] Rivas Zhao Sodium [Moles/Vol] 140 mmol/L Normal 136-145 [facility] Comment on above: Performed By: #### L IPID, CMP #### [facility] [address] [address] [address] Rivas Zhao Urea nitrogen [Mass/Vol] 12.0 mg/dL Normal 7.0-18.0 [facility] Comment on above: Performed By: #### L IPID, CMP #### [facility] [address] [place] [address] Dr. Rivas Zhao Urea nitrogen/Creatinine [Mass ratio] 15.8 mg/mg Normal [facility] Comment on above: Performed By: #### L IPID, CMP #### [facility] [address] [place] [address] Dr. Rivas Zhao Patient Correspondenceon Patient Correspondence [id number]#1.00 CD:127 Normal [facility] Physician Referral [id number]#1.00 CD:127 Normal [facility] Patient Correspondence [id number]#1.00 CD:127 Normal [facility] Physician Referralon 022 Physician Referral [id number]#1.0 0CD:127 Normal [facility] MG MAMM DIAGNOSTIC 3D GREG CA Don 05-16-2021 MG MAMM DIAGNOSTIC 3D GREG CAD Patient: NGOZI CARDOSO. Exam Date: 05/16/2021 : 1960 Gender:F Ordering : DR FOREIGN BENJAMIN M.D. Admission #: [id number] Family : Order #: [id number] CLICK HERE TO VIEW EXAM RADIOLOGY REPORT [...] on diagnostic imaging of breast Calculator Name [facility] Breast Cancer Risk Assessment Tool 5 Year Breast Cancer Risk 3.60% Lifetime Breast Cancer Risk 18.50% Personal Breast Cancer No Personal Ovarian Cancer No Treatments EXCISION OF SITE Family Cancers Mother with breast cancer at age 61; Aunt-maternal with breast cancer at age 58. LOCATION: [facility] BREAST COMPOSITION: Scattered areas fibroglandular density. [...] M.D. on 05/16/2021 at 15:27 Normal [facility] US BREAST GREG LIMITEDon 01-2 US BREAST GREG LIMITED Patient: NGOZI CARDOSO Exam Date: 05/16/2021 : 1960 Gender:F Ordering : DR FOREIGN BENJAMIN M.D. Admission #: [id number] Family : Order #: [id number] CLICK HERE TO VIEW EXAM RADIOLOGY REPORT [...] breast cancer at age 59. LOCATION: [facility] BREAST COMPOSITION: Scattered areas fibroglandular density. [...] M.D. on 05/16/2021 at 15:27 Normal [facility] TRANSGLUTAMINASE IGAon 04-02 t-Transglutaminase (tTG) IgA <2 Normal 0-3 [facility] Comment on above: Result Comment: Nega tive 0 - 3 Weak Positive 4 - 10 Positive >10 . Tissue Transglutaminase (tTG) has been identified as the endomysial antigen. Studies have demonstr- ated that endomysial IgA antibodies have over 99% specificity for gluten sensitive enteropathy. Performed By: #### T FRANCESCA #### [facility] [address] [address] [address] Rivas Zhao CBC AUTO DIFFon 03-31-2021 BASO # 0.1 103/ul Normal 0.0-0.1 [facility] Comment on above: Performed By: #### C BC #### [facility] [address] [address] [address] Rivas Zhao Basophils/100 WBC (Bld) 0.9 % Normal 0.2-2.0 [facility] Comment on above: Performed By: #### C BC #### [facility] [address] [address] [address] Rivas Zhao EO # 0.2 103/ul Normal 0.0-0.7 [facility] Comment on above: Performed By: #### C BC #### [facility] [address] [place] [address] Dr. Rivas Zhao Eosinophils/100 WBC (Bld) 2.3 % Normal 0.9-7.0 [facility] Comment on above: Performed By: #### C BC #### [facility] [address] [place] [address] Dr. Rivas Zhao Erythrocyte distribution width (RBC) [Ratio] 14.5 % Normal 11.0-15.0 [facility] Comment on above: Performed By: #### C BC #### [facility] [address] [place] [address] Dr. Rivas Zhao Hematocrit (Bld) [Volume fraction] 39.9 % Normal 36.0-48.0 [facility] Comment on above: Performed By: #### C BC #### [facility] [address] [place] [address] Dr. Rivas Zhao Hemoglobin (Bld) [Mass/Vol] 13.1 g/dL Normal 12.0-16.0 [facility] Comment on above: Performed By: #### C BC #### [facility] [address] [place] [address] Dr. Rivas Zhao IG # 0.02 10e3/ul Normal 0.00-0.03 [facility] Comment on above: Performed By: #### C BC #### [facility] [address] [place] [address] Dr. Rivas Zhao IG % 0.3 % Normal 0.0-0.5 [facility] Comment on above: Performed By: #### C BC #### [facility] [address] [place] [address] Dr. Rivas Zhao LYMPH # 2.2 103/ul Normal 1.2-3.8 [facility] Comment on above: Performed By: #### C BC #### [facility] [address] [place] [address] Dr. Rivas Zhao Lymphocytes/100 WBC (Bld) 31.8 % Normal 20.5-60.0 [facility] Comment on above: Performed By: #### C BC #### [facility] [address] [place] [address] Dr. Rivas Zhao MANUAL DIFF REQ NO Normal [facility] Comment on above: Performed By: #### C BC #### [facility] [address] [place] [address] Dr. Rivas Zhao MCH (RBC) [Entitic mass] 30.2 pg Normal 26.7-34.0 [facility] Comment on above: Performed By: #### C BC #### [facility] [address] [place] [address] Dr. Rivas Zhao MCHC (RBC) [Mass/Vol] 32.8 g/dL Normal 29.9-35.2 [facility] Comment on above: Performed By: #### C BC #### [facility] [address] [place] [address] Dr. Rivas Zhao MCV (RBC) [Entitic vol] 91.9 fL Normal 81.0-99.0 [facility] Comment on above: Performed By: #### C BC #### [facility] [address] [place] [address] Dr. Rivas Zhao MONO # 0.5 103/ul Normal 0.3-0.8 [facility] Comment on above: Performed By: #### C BC #### [facility] [address] [place] [address] Dr. Rivas Zhao Monocytes/100 WBC (Bld) 7.2 % Normal 1.7-12.0 [facility] Comment on above: Performed By: #### C BC #### [facility] [address] [place] [address] Dr. Rivas Zhao NEUT # 4.0 103/ul Normal 1.4-6.5 [facility] Comment on above: Performed By: #### C BC #### [facility] [address] [place] [address] Dr. Rivas Zhao Neutrophils/100 WBC (Bld) 57.5 % Normal 43.0-75.0 [facility] Comment on above: Performed By: #### C BC #### [facility] [address] [place] [address] Dr. Rivas Zhao Platelet mean volume (Bld) [Entitic vol] 11.8 fL Normal 9.5-13.5 [facility] Comment on above: Performed By: #### C BC #### [facility] [address] [place] [address] Dr. Rivas Zhao PLT 139 103/ul Critically low 150-450 [facility] Comment on above: Performed By: #### C BC #### [facility] [address] [place] [address] Dr. Rivas Zhao RBC 4.34 106/ul Normal 4.20-5.40 [facility] Comment on above: Performed By: #### C BC #### [facility] [address] [place] [address] Dr. Rivas Zhao WBC 7.0 103/ul Normal 4.0-11.0 [facility] Comment on above: Performed By: #### C BC #### [facility] [address] [place] [address] Dr. Rivas Zhao LIPASEon 03-31-2021 Lipase [Catalytic activity/Vol] 197.0 U/L Normal 23.0-300.0 [facility] Comment on above: Performed By: #### C MP, LIPA #### [facility] [address] [address] [address] Rivas Zhao PROF 14(COMP METB)on 021 Albumin [Mass/Vol] 3.6 g/dL Normal 3.5-5.0 [facility] Comment on above: Performed By: #### C MP, LIPA #### [facility] [address] [address] [address] Rivas Zhao Albumin/Globulin [Mass ratio] 0.9 {ratio} Normal [facility] Comment on above: Performed By: #### C MP, LIPA #### [facility] [address] [address] [address] Rivas Zhao ALP [Catalytic activity/Vol] 46 U/L Normal 38-126 [facility] Comment on above: Performed By: #### C MP, LIPA #### [facility] [address] [address] [address] Rivas Zhao ALT [Catalytic activity/Vol] 77 U/L Critically high 9-52 [facility] Comment on above: Performed By: #### C MP, LIPA #### [facility] [address] [address] [address] Rivas Zhao Anion gap [Moles/Vol] 13.9 mmol/L Normal [facility] Comment on above: Performed By: #### C MP, LIPA #### [facility] [address] [address] [address] Rivas Zhao AST [Catalytic activity/Vol] 67 U/L Critically high 14-36 [facility] Comment on above: Performed By: #### C MP, LIPA #### [facility] [address] [address] [address] Rivas Zhao Bilirubin [Mass/Vol] 0.7 mg/dL Normal 0.2-1.3 [facility] Comment on above: Performed By: #### C MP, LIPA #### [facility] [address] [address] [address] Rivas Zhao Calcium [Mass/Vol] 9.8 mg/dL Normal 8.4-10.2 [facility] Comment on above: Performed By: #### C MP, LIPA #### [facility] [address] [address] [address] Rivas Zhao Chloride [Moles/Vol] 103 mmol/L Normal 98-107 [facility] Comment on above: Performed By: #### C MP, LIPA #### [facility] [address] [place] [address] Dr. Rivas Zhao CO2 [Moles/Vol] 31.0 mmol/L Critically high 22.0-30.0 [facility] Comment on above: Performed By: #### C MP, LIPA #### [facility] [address] [place] [address] Dr. Rivas Zhao Creatinine [Mass/Vol] 0.95 mg/dL Normal 0.52-1.04 [facility] Comment on above: Performed By: #### C MP, LIPA #### [facility] [address] [place] [address] Dr. Rivas Zhao EGFR-AF COLOMBIAN 60 mL/min/1.73m2 Normal >=60 [facility] Comment on above: Performed By: #### C MP, LIPA #### [facility] [address] [place] [address] Dr. Rivas Zhao EGFR-NON AF COLOMBIAN =60 Normal >=60 [facility] Comment on above: Performed By: #### C MP, LIPA #### [facility] [address] [place] [address] Dr. Rivas Zhao Globulin (S) [Mass/Vol] 4.2 g/dL Normal [facility] Comment on above: Performed By: #### C MP, LIPA #### [facility] [address] [place] [address] Dr. Rivas Zhao Glucose [Mass/Vol] 95 mg/dL Normal 74-106 [facility] Comment on above: Performed By: #### C MP, LIPA #### [facility] [address] [place] [address] Dr. Rivas Zhao Potassium [Moles/Vol] 3.9 mmol/L Normal 3.4-5.0 [facility] Comment on above: Performed By: #### C MP, LIPA #### [facility] [address] [address] [address] Rivas Zhao Protein [Mass/Vol] 7.8 g/dL Normal 6.1-8.2 [facility] Comment on above: Performed By: #### C MP, LIPA #### [facility] [address] [place] [address] Dr. Rivas Zhao Sodium [Moles/Vol] 144 mmol/L Normal 137-145 [facility] Comment on above: Performed By: #### C MP, LIPA #### [facility] [address] [place] [address] Dr. Rivas Zhao Urea nitrogen [Mass/Vol] 20.0 mg/dL Critically high 7.0-17.0 [facility] Comment on above: Performed By: #### C MP, LIPA #### [facility] [address] [place] [address] Dr. Rivas Zhao Urea nitrogen/Creatinine [Mass ratio] 21.1 mg/mg Normal [facility] Comment on above: Performed By: #### C MP, LIPA #### [facility] [address] [place] [address] Dr. 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 CLINICAL DATA: [...] Garcia Jr., M.D.06/09/2020 11:19 AM Dictation Location: [address] [place] [address] Transcribed By: [facility] 06/09/20 1119 Dictated By: Que Garcia Jr, MD 06/09/20 1112 Signed By: 06/09/20 1119 Normal [facility] Vital Signs Date Time Vital Sign Value Performing Clinician Facility 10-14-2023 09:39-0400 Body height 165.1 cm [facility] 10-14-2023 09:39-0400 Body mass index (BMI) [Ratio] 54.6 kg/m2 [facility] 10-14-2023 09:39-0400 Body temperature 98.4 [degF] [facility] 10-14-2023 09:39-0400 Body weight 148.89 kg [facility] 10-14-2023 09:39-0400 Diastolic blood pressure 76 mm[Hg] [facility] 10-14-2023 09:39-0400 Heart rate 71 /min [facility] 10-14-2023 09:39-0400 Respiratory rate 18 /min [facility] 10-14-2023 09:39-0400 SaO2% (BldA) [Mass fraction] 97 % [facility] 10-14-2023 09:39-0400 Systolic blood pressure 114 mm[Hg] [facility] 08-12-2023 11:[id number] Body height 165.1 cm [facility] 08-12-2023 11:04-0400 Body mass index (BMI) [Ratio] 55.2 kg/m2 [facility] 08-12-2023 11:04-0400 Body weight 150.59 kg [facility] 08-12-2023 11:04-0400 Diastolic blood pressure 67 mm[Hg] [facility] 08-12-2023 11:04-0400 Heart rate 67 /min [facility] 08-12-2023 11:04-0400 Systolic blood pressure 104 mm[Hg] [facility] 06-21-2023 15:41-0500 Body height 165.1 cm [facility] 06-21-2023 15:41-0500 Body mass index (BMI) [Ratio] 54.1 kg/m2 [facility] 06-21-2023 15:41-0500 Body weight 147.64 kg [facility] 06-21-2023 15:41-0500 Diastolic blood pressure 60 mm[Hg] [facility] 06-21-2023 15:41-0500 Heart rate 67 /min [facility] 06-21-2023 15:41-0500 SaO2% (BldA) [Mass fraction] 97 % [facility] 06-21-2023 15:41-0500 Systolic blood pressure 108 mm[Hg] [facility] 05-14-2023 09:30-0500 Body height 165.1 cm [facility] Other [facility] Other 05-14-2023 09:30-0500 Body mass index (BMI) [Ratio] 57.24 kg/m2 [facility] Other [facility] Other 05-14-2023 09:30-0500 Body weight 156.04 kg [facility] Other [facility] Other 05-14-2023 09:30-0500 Diastolic blood pressure 69 mm[Hg] [facility] Other [facility] Other 05-14-2023 09:30-0500 SaO2% (BldA) [Mass fraction] 97 % [facility] Other [facility] Other 05-14-2023 09:30-0500 Systolic blood pressure 105 mm[Hg] [facility] Other [facility] Other 03-05-2023 16:00-0500 Body height 165.1 cm Etta Gordon Other [facility] Other 03-05-2023 16:00-0500 Body mass index (BMI) [Ratio] 60.27 kg/m2 Etta Gordon Other [facility] Other 03-05-2023 16:00-0500 Body temperature 98.9 [degF] Etta Gordon Other [facility] Other 03-05-2023 16:00-0500 Body weight 164.29 kg Etta Gordon Other [facility] Other 03-05-2023 16:00-0500 Diastolic blood pressure 77 mm[Hg] Etta Gordon Other [facility] Other 03-05-2023 16:00-0500 Respiratory rate 18 /min Etta Gordon Other [facility] Other 03-05-2023 16:00-0500 SaO2% (BldA) [Mass fraction] 95 % Etta Gordon Other [facility] Other 03-05-2023 16:00-0500 Systolic blood pressure 125 mm[Hg] Etta Gordon Other [facility] Other Encounters Encounter Date Encounter Type Care Provider Facility Start: 12-08-2023 ambulatory [facility] Start: 12-01-2023 End: 12-01-2023 ambulatory [facility] Start: 11-01-2023 ambulatory [facility] Start: 10-28-2023 ambulatory [facility] Start: 10-28-2023 End: 10-28-2023 ambulatory [facility] Start: 10-14-2023 End: 10-14-2023 ambulatory [facility] Work Phone: Start: 10-14-2023 End: 10-14-2023 Patient encounter procedure [facility] Work Phone: Start: 10-12-2023 ambulatory [facility] Start: 10-05-2023 End: 10-05-2023 ambulatory [facility] Start: 09-24-2023 ambulatory [facility] Start: 08-28-2023 Non-patient / Non-visit [facility] Work Phone: Start: 08-22-2023 Patient encounter status [facility] Start: 08-12-2023 End: 08-12-2023 Encounter for general adult medical examination without abnormal findings [facility] Start: 08-12-2023 End: 08-12-2023 Patient encounter procedure [facility] Work Phone: Start: 08-12-2023 End: 08-12-2023 ambulatory BENY PRECIOUS [facility] Work Phone: Start: 07-12-2023 End: 07-12-2023 ambulatory [facility] Start: 07-09-2023 Non-patient / Non-visit [facility] Work Phone: Start: 06-30-2023 End: 06-30-2023 ambulatory L[facility] Start: 06-21-2023 End: 06-21-2023 Patient encounter procedure [facility] Work Phone: Start: 06-18-2023 End: 06-18-2023 ambulatory LARA ROLAND [facility] Start: 06-08-2023 End: 06-08-2023 ambulatory JOSE LUIS CRONIN [facility] Start: 05-31-2023 End: 05-31-2023 ambulatory Etta Gordon Other [facility] Other Start: 05-31-2023 Telephone encounter Etta Gordon [facility] Start: 05-21-2023 End: 05-21-2023 ambulatory Foreign [facility] Other [facility] Other Start: 05-21-2023 Telephone encounter Foreign [facility] Start: 05-18-2023 Patient encounter procedure [facility] Start: 05-17-2023 End: 05-17-2023 ambulatory [facility] Start: 05-14-2023 End: 05-14-2023 ambulatory [facility] Other [facility] Other Start: 05-14-2023 Office outpatient vi sit 25 minutes [facility] Start: 05-06-2023 Evaluation and management of inpatient [facility] Start: 05-05-2023 Evaluation and management of inpatient [facility] Start: 05-05-2023 End: 05-11-2023 Evaluation and management of inpatient [facility] Start: 04-30-2023 End: 04-30-2023 ambulatory [facility] Other [facility] Other Start: 04-30-2023 Telephone encounter Foreign [facility] Start: 04-01-2023 End: 04-01-2023 ambulatory [facility] Other [facility] Other Start: 04-01-2023 Telephone encounter Foreign [facility] Start: 03-05-2023 End: 03-05-2023 ambulatory Etta Gordon Other [facility] Other Start: 03-05-2023 Office outpatient vi sit 25 minutes Etta Gordon [facility] Start: 02-26-2022 Encounter for genera l adult medical examination without abnormal findings DR FOREIGN BENJAMIN [facility] Start: 02-21-2022 End: 02-22-[address] FOREIGN BENJAMIN Facility:[facility] Start: 02-21-2022 End: 02-22-2022 Encounter for general adult medical examination without abnormal findings DR FOREIGN BENJAMIN Facility:[facility] Start: 01-20-2022 Adult health examination Etta Gordon Other [facility] Other Start: 05-16-2021 End: 05-17-[address] [...] Detail Author MG Breast - bilateral Screening [facility] Payers Date Payer Category Payer Unknown [id number] [id number] 1960 Unknown [id number] 1960 Unknown [id number] 1960 Unknown [id number] [id number] 1960 Unknown [id number] 1958 Unknown [id number] Self-pay Self Pay [id number] Social History Date Type Detail Facility Unknown if ever smoked [facility] Other Sex Assigned At Sex Assigned At Bir th [facility] Other Start: 07-07-2018 End: 10-14-2023 Tobacco smoking status NHIS Never smoked tobacco (finding) [facility] Start: 1960 Sex Assigned At Female F [facility] Medical Equipment Procedure Code Equipment Code Equipment [...] FDA Start: 07-04-2018 Clinical Notes 10-22-2020 to 12-01-2023 Note Date & Type Note Facility 12-01-2023 Note Cardiovascular Medic [facility] SUBJECTIVE Chief Complaint Patient presents with Atrial Fibrillation Ngozi Cardoso is a 63 y.o. female here for follow-up after her recent a.fib ablation. HPI PMHx: HFrEF, a.fib/flutter, HTN, DM, RAVI 12/01/2023 She has been feeling well since her procedure. Initially after her procedure her HR was in the 90s and it came down into the 70s. She has occasional LH with position changes - not new for her. Denies c/o CP, dyspnea, orthopnea, PND, LE edema, dizziness/LH, palpitations, syncope. 08/12/23 Since last seen she underwent an [...] diabetes obstructive sleep apnea was admitted to [facility] with shortness of breath and was [...] Benign hypertensive cardiomyopathy with heart failure (CMS/HCC) Anemia following surgery History of deep venous thrombosis Hypertension Hypokalemia Impaired mobility and activities of daily living Lack of stamina Morbid obesity with body mass index (BMI) of 50.0 to 59.9 in adult (CMS/HCC) Postoperative pain Status post total right knee replacement Thrombocytopenia (CMS/HCC) RAVI (obstructive sleep apnea) Overactive bladder Screening mammogram for breast cancer Type 2 diabetes mellitus with hyperglycemia (CMS/HCC) PONV (postoperative nausea and vomiting) Past Medical History: Diagnosis Date Abnormal ECG Acute kidney injury (CMS/HCC) Arrhythmia Atrial fibrillation (CMS/HCC) Atrial fibrillation (CMS/HCC) CHF (congestive heart failure) (CMS/HCC) Diabetes mellitus (CMS/HCC) DVT (deep venous thrombosis) (CMS/HCC) Hypertension Obesity BMI 55/58 PONV (postoperative nausea and vomiting) Sleep apnea Thrombocytopenia ([facility]/HCC) Family History Problem Relation Name Age of Onset Heart attack Mother Stroke Mother Atrial fibrillation Father Heart attack Brother Stroke Brother Social History Tobacco Use Smoking status: Never Smokeless tobacco: Never Substance Use Topics Alcohol use: Not Currently Drug use: Not Currently Allergies Allergen Reactions Diphenhydramine Hallucinations Pt states she gets loopy Penicillins Hives Tramadol Hives Review of Systems Constitutional: Negative for chills, decreased appetite, fever, malaise/fatigue and weight gain. Cardiovascular: Negative for chest pain, dyspnea on exertion, irregular heartbeat, leg swelling, near-syncope, orthopnea, palpitations, paroxysmal nocturnal dyspnea and syncope. Hematologic/Lymphatic: Negative for bleeding problem. Does not bruise/bleed easily. Neurological: Positive for light-headedness. OBJECTIVE Visit Vitals BP 113/75 (BP Location: Right wrist, Patient Position: Sitting) Pulse 75 Ht 1.651 m (5' 5 ) Wt (!) 152 kg (334 lb) SpO2 99% BMI 55.58 kg/m??? OB Status Hysterectomy Smoking Status Never BSA 2.64 m??? Medications: Current Outpatient Medications: amiodarone (Pacerone) 200 mg tablet, Take 1 tablet (200 mg) by mouth with breakfast. Do not start before May 25, 2023., Disp: 90 tablet, Rfl: 3 apixaban (Eliquis) 5 mg tablet, Take 1 [...] as directed., Disp: 14 tablet, Rfl: 0 losartan (Cozaar) 25 mg tablet, Take 1 tablet (25 mg) by mouth in the morning., Disp: 90 tablet, Rfl: 3 magnesium oxide (Mag-Ox) 400 mg (241.3 mg magnesium) tablet, Take 1 tab (more content not included)... [facility] 12-01-2023 Note Follow up from afib ablation. Review of Systems Neurological: Positive for light-headedness. [facility] 10-28-2023 Note Patient: Ngozi parker Procedure Summary Date: 10/28/23 Room / Location: [facility] [employer] WORK[facility] 1 EP / [facility] (Cath) Anesthesia Start: 1209 Anesthesia Stop: 1540 Procedure: Ablation a-fib paroxysmal Diagnosis: Paroxysmal atrial fibrillation (CMS/HCC) (Paroxysmal atrial fibrillation (CMS/HCC) [I48.0]) Providers: Jose Luis Cronin MD Responsible Provider: Hermila Meek MD Anesthesia Type: general ASA Status: 3 Anesthesia Type: general Vitals Value Taken Time BP 149/82 10/28/23 1635 Temp 36.3 ???C (97.3 ???F) 10/28/23 1535 Pulse 75 10/28/23 1635 Resp 11 10/28/23 1635 SpO2 98 % 10/28/23 1635 Anesthesia Post Evaluation Patient location during evaluation: PACU Patient participation: complete - patient participated Level of consciousness: awake and alert Pain score: 0 Pain management: adequate Multimodal analgesia pain management approach Airway patency: patent Two or more strategies used to mitigate risk of obstructive sleep apnea Cardiovascular status: hemodynamically stable Respiratory status: acceptable, room air, spontaneous ventilation and nonlabored ventilation Hydration status: euvolemic Patient is hemodynamically stable and is able to be discharged from PACU per anesthesia protocol. There were no known notable events for this encounter. [facility] 10-28-2023 Note Patient: Ngozi parker Procedure Summary Date: 10/28/23 Room / Location: [facility] [employer] WORKER 1 EP / [facility] (Cath) Anesthesia Start: 1209 Anesthesia Stop: Procedure: Ablation a-fib paroxysmal Diagnosis: Paroxysmal atrial fibrillation (CMS/HCC) (Paroxysmal atrial fibrillation (CMS/HCC) [I48.0]) Providers: Jose Luis Cronin MD Responsible Provider: Hermila Meek MD Anesthesia Type: general ASA Status: 3 Anesthesia Post Transport Note Transport to: PACU O2 Route: nasal cannula Oxygen Flow (L/min): 4 Patient Monitor: direct observation and transport monitor Transport: uneventful Patient condition is: stable Comments: Patient was able to respond and follow verbal commands throughout transport process [facility] 10-28-2023 Note ATRIAL FIBRILLATION ABLATION PROCEDURE NOTE DATE OF PROCEDURE: 10/28/2023 PERFORMING PHYSICIAN: Dr. Jose Luis Cronin CONSENT: Patient NAME OF THE PROCEDURE: Pulmonary Vein Isolation and Comprehensive EP study. INDICATIONS FOR PROCEDURE: 1. Persistent atrial fibrillation. FLUROSCOPY: 7.9minute/140mGy. EBL: 15cc SPECIMEN REMOVED: None PROCEDURES PERFORMED: 1. Sonosite guided venous access as noted below and images stored in PACS. 2. Comprehensive EP study and catheter ablation for persistent atrial fibrillation through the pulmonary vein isolation technique. This includes right atrial recording and pacing, His bundle recording and right ventricular recording and pacing. 3. Intracardiac EP 3D mapping. 4. Intracardiac echocardiogram 5. Left atrial and coronary sinus recording and pacing to assess ablation results. 6. Left heart pressure measurements and LV pacing and recording. 7. Induction of arrhythmia and testing of ablation results using intravenous adenosine infusion. 8. Fluroscopy. 9. Arterial line placement. INDICATION: 63 year old with past medical history of hypertension diabetes obstructive sleep apnea was admitted to [facility] with shortness of breath and was noted to be in atrial fibrillation with RVR. ECHO revealed wed a drop in EF to 40% with [...] converted to sinus rhythm and subsequently discharged. Patient subsequently underwent atrial flutter ablation and loop insertion on 07/12/2023. Patient was noted to have easily inducible A-fib while in the EP lab. subsequently on follow-up the loop monitor has revealed multiple episodes of atrial fibrillation. She then decided to proceed with A-fib ablation. PROCEDURE NOTE: On the day of presentation, she was noted to be in sinus rhythm following which the ENID was deferred. Risks, benefits and alternatives of the procedure were discussed with the patient and family who agreed to proceed. Please refer to my consult note for details of the discussion and of indications. The patient was prepped and draped following which four venous access was procured on right side as noted below. Ultrasound was used to determine the course and patency of the femoral veins on both sides and they were noted to be patent and the image stored in PACS. After infiltration with 1% lidocaine, 4 venous sheaths were placed in the right as noted below and a femoral arterial line was placed by me. RFV: 8Fx3, [employer] Thermo[employer] SF Bi-Directional over SL1/ Vizigo, SL1: Octoray,, CS Catheter (EZ Steer). 9F: ICE catheter, Following venous access, heparin bolus was given followed by continuous intravenous drip to target ACT around 350. An intracardiac ultrasound catheter was inserted into the right atrium to examine the right atrial anatomy, atrial septum, pulmonary vein anatomy and to monitor for pericardial effusion and guide transseptal access. The LA and RA was significantly dilated. At baseline, there was no pericardial effusion and no PROMISE clot but noted a very prominent Coumadin ridge. Esophagus was mapped using the [employer] 3D mapping software and noted to be towards the LSPV. Transeptal access was procured with ICE guidance using a SL-1 sheath and Ameena needle. LV pacing was performed and no VA conduction was seen. Following this, Octoray,catheter was advanced and the multipolar mapping performed of the LA creating a geometry as well as bipolar voltage assessment was made. The LA was noted to be healthy. After FAM geometry was performed, a 2nd transseptal was performed with an SL1 sheath using a Ameena needle. Following transseptal, the SL1 sheath was removed and Vizigo sheath was advanced over which the ablation catheter ST-SF thermocol ablation catheter was advanced. Ablation was then performed. A temperature probe was advanced to the middle of the LA to monitor the temperature. Ablation was performed using 40 sainz for 10-12s in the anterior LA and 5-8seconds in the posterior wall and roof area. After completion of the left sided WACA, no signals were noted in the LSPV or LIPV and entrance and exit block was noted. After this, I proceeded to perform ablation of the right-sided vein. Following right WACA, the veins were isolated. I ensured that on the anterior aspect of right WACA and in fuad area, phrenic capture was ruled out before any ablation was performed. A temperature elevation was noted from a baseline of 35.6 to 36.C. After this, perivenous pacing was performed around each individual (more content not included)... [facility] 10-28-2023 Note Airway Date/Time: 10/28/2023 12:24 PM Urgency: elective Airway not difficult General Information and Staff Patient location during procedure: OR Anesthesiologist: Hermila Meek MD Resident/HAMMER REPAIRER/CAA: Aurora Moore MD Performed: resident/HAMMER REPAIRER/CAA Indications and Patient Condition Indications for airway management: anesthesia Spontaneous Ventilation: absent Sedation level: deep Preoxygenated: yes Patient position: sniffing Mask difficulty assessment: 1 - vent by mask Planned trial extubation Final Airway Details Final airway type: endotracheal airway Successful airway: ETT Cuffed: yes Successful intubation technique: video laryngoscopy Facilitating devices/methods: intubating stylet Endotracheal tube insertion site: oral Blade: Ann Blade size: #3 ETT size (mm): 7.5 Cormack-Lehane Classification: grade I - full view of glottis Placement verified by: chest auscultation and capnometry Measured from: lips ETT to lips (cm): 23 Number of attempts at approach: 1 Number of other approaches attempted: 0 [facility] 10-28-2023 Note Patient: Ngozi parker Procedure Information Date/Time: 10/28/23 1230 Procedure: Ablation a-fib paroxysmal Location: [facility] [employer] WORKER 1 EP / [facility] (Cath) Providers: Jose Luis Cronin MD Relevant Problems Anesthesia (+) RAVI (obstructive sleep apnea) (Intermittent CPAP) (+) PONV (postoperative nausea and vomiting) Cardio (+) Hypertension (+) Paroxysmal atrial fibrillation (CMS/HCC) Endo (+) Type 2 diabetes mellitus with hyperglycemia (CMS/HCC) (Glucose 109) /Renal (+) Acute kidney injury (CMS/HCC) (Resolved) Circulatory (+) Benign hypertensive cardiomyopathy with heart failure (CMS/HCC) (+) Chronic systolic congestive heart failure, NYHA class 2 (CMS/HCC) INR 1.22 Encounter Date: 10/28/23 Electrocardiogram, 12-lead Result Value Ventricular Rate 69 Atrial Rate 69 MT Interval 256 QRS DURATION 186 QT Interval 490 QTC CALCULATION(BAZETT) 525 P Wellfleet 29 R-Wellfleet -52 T Wave Wellfleet 91 Impression Sinus rhythm with 1st degree A-V block with Premature supraventricular complexes Left axis deviation Left bundle branch block Abnormal ECG When compared with ECG of 12-JUL-2023 07:55, Premature supraventricular complexes are now Present MT interval has increased Right heart catheterization 05/07/23: FINAL IMPRESSIONS: Vasospasm of the right coronary, likely iatrogenic due to catheter and/or wire, resolved with intracoronary nitroglycerin Otherwise nonobstructive coronary arteries angiographically Mildly reduced global left ventricular systolic function by noninvasive imaging Mildly elevated right-sided heart pressures and wedge pressure Normal transpulmonary gradient along with elevated wedge consistent with postcapillary or pulmonary venous hypertension Normal cardiac output/cardiac index Pre- and intraprocedural tachyarrhythmias Echo 05/06/23: Conclusions Left Ventricle: The left ventricle is [...] of endocardial borders. No significant valvular abnormalities Measurem Clinical information reviewed: Tobacco Allergies Meds Med Hx Surg Hx Physical Exam Airway Mallampati: I TM distance: >3 FB Neck ROM: full Cardiovascular Rhythm: regular Rate: normal Dental - normal exam Pulmonary Breath sounds clear to auscultation Abdominal - normal exam (+) obese Anesthesia Plan ASA 3 general The patient is not a current smoker. Patient was previously instructed to abstain from smoking on day of procedure. Patient did not smoke on day of procedure. Education provided regarding risk of obstructive sleep apnea. intravenous induction Postoperative administration of opioids is intended. Trial extubation is planned. Anesthetic plan and risks discussed with patient. Use of blood products discussed with patient who consented to blood products. Plan discussed with attending. Additional Equipment Requests [facility] 10-05-2023 Note PA Electrophysiology Consult Note Reason for visit: Afib [...] done as soon as possible 06/08/23 HPI: Ngozi Cardoso is a 63 y.o. year old with past medical history of hypertension diabetes obstructive sleep apnea was admitted to [facility] with shortness of breath and was [...] Intimate Partner Violence: Not At Risk (05/05/2023) PA Safety & Environment Fear of Current or [...] Year: No Utilities: Not At Risk (05/05/2023) [facility] Utilities Threatened with loss of utilities: [...] other systems revie (more content not included)... [facility] 08-12-2023 Note Cardiovascular Medic [facility] SUBJECTIVE Chief Complaint Patient presents with Atrial [...] diabetes obstructive sleep apnea was admitted to [facility] with shortness of breath and was [...] systolic congestive heart failure, NYHA class 2 ([facility]/HCC) Paroxysmal atrial fibrillation (CMS/HCC) Grade II diastolic [...] Rate and Rhythm: (more content not included)... [facility] 08-12-2023 Note Patient here for fol low [...] All other systems reviewed and are negative. [facility] 07-12-2023 Note ATRIAL FLUTTER ABLAT ION & [...] diabetes obstructive sleep apnea was admitted to [facility] with shortness of breath and was [...] clot. CS os was mapped using the [employer] 3D mapping software. Using ICE, the His [...] the sternum on the left using the [employer] tool. The loop recorder was then injected subcutaneously and noted to have good sensing parameters. Technical details of the device as noted below. The skin was then closed with 3-0 absorbable monofilament sut (more content not included)... [facility] 07-12-2023 Note Patient: Ngozi parker Procedure Information Date/Time: 07/12/23 0830 Procedures: Ablation atrial flutter Loop insertion Location: [facility] EP / [facility] (Cath) Providers: Jose Luis Cronin MD Clinical information reviewed: Allergies Meds OB Status Physical Exam Airway Mallampati: II TM distance: >3 FB Neck ROM: full Cardiovascular Dental Pulmonary Abdominal Anesthesia Plan ASA 2 CSE Anesthetic plan and risks discussed with patient. Use of blood products discussed with patient who. Additional Equipment Requests [facility] 06-30-2023 Note CHF stable with out exacerbation Continue GDMT as prescribed [facility] 06-30-2023 Note BP in office perfect 128/72, but with midodrine 5 mg tid she has exaggerated supine hypertension at home after review of b/p log, therefore recommended pt to take midodrine as needed - hold for SBP> 120, and can also cut tab in 1/2 to = 2.5 mg And she voiced understanding. [facility] 06-30-2023 Note [id number]= 4 Continue eliquis anticoagulation, amiodarone for rhythm control and coreg for rate control [facility] 03-13-2024 Note [facility]TP CARDIOLOGY PROGR ESS NOTE HPI: Ngozi A Cardoso is a 62 y.o. female here [...] 20 18 14 (more content not included)... [facility] 06-30-2023 Note Patient here c/o hyp ertension. [...] All other systems reviewed and are negative. [facility] 06-18-2023 Note HTN currently well c ontrolled, also labile 90/57 and may have been Contributing to symptoms this week. Will add midodrine 5 mg tid to regime to prevent hypotension, lightheadedness/dizziness or syncope. [facility] 06-18-2023 Note [facility] II- currently w ithout exacerbation Continue GDMT- ASA, coreg, farxiga, losartan, entresot and aldatone Diuretic therapy- bumex 1 mg daily Monitor daily weights, I&O, fluid restriction 1.5-2L/day, renal function and electrolytes [facility] 06-18-2023 Note Continue amiodarone 200 mg daily, and coreg 6.25 mg bid. Will add midodrine 5 mg tid to regime for noted hypotension and symptoms of lightheadedness/dizziness and near syncope. Continue eliquis anticoaogulation- denied any bleeding tendencies [facility] 06-18-2023 Note UTP CARDIOLOGY PROGR ESS NOTE [...] diabetes obstructive sleep apnea was admitted to [facility] with shortness of breath and was [...] Musculoskeletal: General: N (more content not included)... [facility] 06-18-2023 Note Patient here c/o epi sode [...] All other systems reviewed and are negative. [facility] 06-08-2023 Note [place] Electrophysiology Consult Note Reason for visit: Afib HPI: Ngozi Cardoso is a 62 y.o. year old with past medical history of hypertension diabetes obstructive sleep apnea was admitted to [facility] with shortness of breath and was [...] file (05/05/2023) Utilities: Not At Risk (05/05/2023) [facility] Utilities Threatened with loss of utilities: [...] Arteries: bilateral no (more content not included)... [facility] 05-17-2023 Note [facility] Cardiology Clinic Note Chief Complaint: Patient here for follow up [facility]. Had cath on 05/07/2023. Denies chest pain, [...] PSYCH: appropriate mood, affect, and judgement. INVESTIGATIONS: Echocardiogram-[facility] Name: NGOZI CARDOSO Study Date: 05/06/2023 08:24 AM B/P: 131 mmHg/56 mmHg HR: 80 bpm Date of : 1960 Location: [facility] Height: 65 in. Age: 62 year(s) Patient [...] 2, moderate diastolic (more content not included)... [facility] 05-14-2023 Evaluation note Encounter Date Diagnosis Assessment [...] forms for supplies and faxed back to [employer]. Pt states she will restart and become compliant w CPAP treatment. [employer] Other 01-23-2024 NotePt provided with discharge education and instructions. Heart failure folder reviewed in detail and filled out. Medications delivered and at bedside. All questions answered. Pt wheeled to main entrance, father there for transport. [facility]01-23-2024 NoteCardiology Progress Note Subjective F/U Acute systolic heart failure Patient up in chair. Denies SOB, cp, palpitations. Reports pedal edema significantly improved. Tele - currently NSR, with some episodes a.fib overnight per [facility] Objective Patient Vitals for the past 24 [...] Value Ventricular Rate 81 Atrial Rate 81 MT Interval 208 QRS DURATION 178 QT Interval 442 QTC CALCULATION(BAZETT) 513 P Wellfleet 34 R-Wellfleet -48 T Wave Wellfleet 101 Impression Normal sinus rhythm Left axis [...] internal jugular vein was obtained. A 6 Wallisian 11 cm sheath was inserted without difficulty. [...] left radial artery was obtained. A 6 Wallisian glide sheath was inserted without difficulty. Difficulty [...] outline, coronary spasm was (more content not included)...[facility]01-23-2024 NoteHospital Medicine Discharge Summary Final Discharge Diagnosis: Atrial fibrillation with RVR- [id number] score 4 Atrial flutter New onset of congestive heart failure/heart failure -ejection fraction, 40% TTE 05/06/23 NYHA class II Hypokalemia/Hypomagnesemia Essential hypertension DMII noninsulin dependent Thrombocytopenia Osteoarthritis Obstructive sleep apnea with non compliance to CPAP Obese class 3 Admission Diagnosis: Acute systolic heart failure (CMS/HCC) [I50.21] Hospital course: History of Present Illness Ngozi Cardoso is an 62 y.o. female admitted from [facility] as a direct admit. She has history of hypertension diabetes obstructive sleep apnea not using CPAP or BiPAP he was admitted at [facility] with chief complaint of sudden onset of shortness of breath. According to patient she wake up in the morning 2 days back very short of breath denies any chest pain heart palpitation dizziness syncope weakness no increased cough or expectoration and no fever chills cough drops with the family to [facility] with she was noted to be [...] Telemetry strips and EKG were reviewed from [facility]. Strip labeled as V. tach is [...] obstructive sleep apnea who was admitted to [facility] with sudden onset shortness of breath found to have new onset heart failure and atrial fibrillation. Acute heart failure with mid range ejection fraction, 40% TTE 05/06/23 NYHA class II Atrial fibrillation/flutter, [id number] 4 (female-1, heart failure-1, diabetes mellitus-1, Hypertension-1) [...] 1:00 PM Regina Stark MD ELAINE Lyle [facility] 06/08/2023 2:40 PM [facility] Your medication list START taking these medications Instructions Last Dose Given Next Dose Due amiodarone 400 mg tablet Commonly known as: Pacerone Take 1 tablet (400 mg) by mouth (more content not included)...[facility]01-23-2024 NoteNutrition Screening Assessment: Patient Name: Ngozi Cardoso [...] with questions and contact the dietitian via [employer] chat 8A-4P Wednesday-Wednesday. Or call the dietitian's office at extension [phone]. For s/holidays, the dietitian's can be reached by paging [phone] from 9A-3P. Unable to be reached via [employer] on Wednesday & .)[facility]01-22-2024 NoteHoital Medicine Daily Progress Note - 05/10/2023 12:14 PM; Room: [address] [place] [address] Admission: 05/05/2023 7:10 PM; Length of stay: 5 days THE HOSPITALIST TEAM PREFERS TO USE [employer] FOR COMMUNICATION 7AM-7PM. IF I DO NOT RESPOND WITHIN 15 MINUTES, PLEASE PAGE ME/CALL THROUGH THE MAPPING EDITOR. FROM 7PM-7AM, PLEASE PAGE [phone](COVR) Code Status: Full Code Barriers to Discharge: [...] Assessment and Plan Atrial fibrillation with RVR- [id number] score 4 - resumed eliquis - amio [...] FREET4 1.08 05/06/2023 No results found for: [id number] , IRON , TIBC , C3 , [...] cardiovascular factor modificati (more content not included)... [facility]01-22-2024 NotePt admitted to hospital for acute on chronic systolic HF, hx of HTN, DM, RAVI w/o CPAP compliance. Pt's echo from 05/06/23 estimated LVEF 40%, which does not qualify pt for cardiac rehab (CR) therapy with HF diagnosis per CMS eligibility criteria. I will watch for updates and follow up with pt, if appropriate. NICHELLE RosalesN sole cementer Outpatient Coordinator [facility]iop[facility]habUnL[facility]01-22-2024 Note Cardiology Progress Note Subjective F/U [...] Value Ventricular Rate 81 Atrial Rate 81 MT Interval 208 QRS DURATION 178 QT Interval 442 QTC CALCULATION(BAZETT) 513 P Wellfleet 34 R-Wellfleet -48 T Wave Wellfleet 101 Impression Normal sinus rhythm Left axis [...] internal jugular vein was obtained. A 6 Wallisian 11 cm sheath was inserted without difficulty. [...] left radial artery was obtained. A 6 Wallisian glide sheath was inserted without difficulty. Difficulty advancing the De La Vega wire was encountered; therefore this was removed. Angiography was performed via the JR catheter. T (more content not included)...[facility]01-21-2024 NoteHospital Medicine Daily Progress Note - 05/09/2023 12:26 PM; Room: [facility]- Admission: 05/05/2023 7:10 PM; Length of stay: 4 days THE HOSPITALIST TEAM PREFERS TO USE [employer] CHAT FOR COMMUNICATION 7AM-7PM. IF I DO NOT RESPOND WITHIN 15 MINUTES, PLEASE PAGE ME/CALL THROUGH THE MAPPING EDITOR. FROM 7PM-7AM, PLEASE PAGE [phone](COVR) Code Status: Full Code Barriers to Discharge: [...] Assessment and Plan Atrial fibrillation with RVR- [id number] score 4 - currently on metoprolol - [...] FREET4 1.08 05/06/2023 No results found for: [id number] , IRON , TIBC , C3 , [...] for heart failure with (more content not included)...[facility]01-21-2024 Note Attestation signed by Adenike Serrano MD [...] Value Ventricular Rate 81 Atrial Rate 81 MT Interval 208 QRS DURATION 178 QT Interval 442 QTC CALCULATION(BAZETT) 513 P Wellfleet 34 R-Wellfleet -48 T Wave Wellfleet 101 Impression Normal sinus rhythm Left axis deviation Left bundle branch block Abnormal ECG When compared with ECG of 13-FEB-2013 09:22, No significant change was found Confirmed by Jose Luis Cronin ([id number]) on 05/05/2023 9:15:31 PM Lab Results Component Value Date TROPONINI 0.01 05/06/2023 Complete Echo (TTE) w/wo Imaging Agent, Strain, 3D, Bubble Study Result Date: 05/06/2023 1 1 [facility] [address] [facility] [place] [address] [phone] (fax) Echocardiogram-[facility] Name: NGOZI CARDOSO Study Date: 05/06/2023 08:24 AM B/P: 131 mmHg/56 mmHg HR: 80 bpm Date of : 1960 Location: [facility] Height: 65 in. Age: 62 year(s) Patient [...] 2.4 cm?? Findings Left (more content not included)...[facility]01-20-2024 Note Attestation signed by Adenike Serrano MD [...] Value Ventricular Rate 81 Atrial Rate 81 MT Interval 208 QRS DURATION 178 QT Interval 442 QTC CALCULATION(BAZETT) 513 P Wellfleet 34 R-Wellfleet -48 T Wave Wellfleet 101 Impression Normal sinus rhythm Left axis deviation Left bundle branch block Abnormal ECG When compared with ECG of 13-FEB-2013 09:22, No significant change was found Confirmed by Jose Luis Cronin ([id number]) on 05/05/2023 9:15:31 PM Lab Results Component Value Date TROPONINI 0.01 05/06/2023 Complete Echo (TTE) w/wo Imaging Agent, Strain, 3D, Bubble Study Result Date: 05/06/2023 1 1 [facility] [address] [place] [address] [phone] (fax) Echocardiogram-[facility] Name: NGOZI CARDOSO Study Date: 05/06/2023 08:24 AM B/P: 131 mmHg/56 mmHg HR: 80 bpm Date of : 1960 Location: [facility] Height: 65 in. Age: 62 year(s) Patient Room: [facility] Weight: 352 lb. Gender: Female Patient Status: [...] cm Mitral Valv (more content not included)... [facility]01-20-2024 NoteHospital Medicine Daily Progress Note - 05/08/2023 8:40 AM; Room: [address] [place] [address] Admission: 05/05/2023 7:10 PM; Length of stay: 3 days THE HOSPITALIST TEAM PREFERS TO USE [employer] CHAT FOR COMMUNICATION 7AM-7PM. IF I DO NOT RESPOND WITHIN 15 MINUTES, PLEASE PAGE ME/CALL THROUGH THE MAPPING EDITOR. FROM 7PM-7AM, PLEASE PAGE [phone](COVR) Code Status: Full Code Barriers to Discharge: [...] Assessment and Plan Atrial fibrillation with RVR- [id number] score 4 - currently on metoprolol - [...] FREET4 1.08 05/06/2023 No results found for: [id number] , IRON , TIBC , C3 , [...] midrange ejection fraction (H (more content not included)...[facility] 05-07-2023 NoteCardiovascular Laboratory Report FINAL IMPRESSIONS: Vasospasm [...] internal jugular vein was obtained. A 6 Wallisian 11 cm sheath was inserted without difficulty. [...] left radial artery was obtained. A 6 Wallisian glide sheath was inserted without difficulty. Difficulty [...] outline, coronary spasm was suspected. A 6 Wallisian JR4 guide catheter was advanced in over [...] Systolic dysfunction, exertional shortness of breath, wide-complex tachycardiaUnLancaster Municipal Hospital01-19-2024 Note Patient: Ngozi Cardoso Procedure Information Date/Time: 05/07/23 1700 Procedures: Coronary angiography Right heart cath Location: [facility] 3 / [facility] (Cath) Providers: Regina Stark [...] Additional Equipment Requests Regina Stark MD, MPH, [facility], [facility], [facility] Interventional Cardiology Pager Email: [email or web address] NoteCardiology Progress Note Subjective Subjective: Patient seen [...] Value Ventricular Rate 81 Atrial Rate 81 MT Interval 208 QRS DURATION 178 QT Interval 442 QTC CALCULATION(BAZETT) 513 P Wellfleet 34 R-Wellfleet -48 T Wave Wellfleet 101 Impression Normal sinus rhythm Left axis deviation Left bundle branch block Abnormal ECG When compared with ECG of 13-FEB-2013 09:22, No significant change was found Confirmed by Jose Luis Cronin ([id number]) on 05/05/2023 9:15:31 PM Lab Results Component Value Date TROPONINI 0.01 05/06/2023 Complete Echo (TTE) w/wo Imaging Agent, Strain, 3D, Bubble Study Result Date: 05/06/2023 1 1 [facility] [address] [place] [address] [phone] (fax) Echocardiogram-[facility] Name: NGOZI CARDOSO Study Date: 05/06/2023 08:24 AM B/P: 131 mmHg/56 mmHg HR: 80 bpm Date of : 1960 Location: [facility] Height: 65 in. Age: 62 year(s) Patient [...] (pseudonormalized LV filling patte (more content not included)...[facility] 05[facility]07-2023 [facility] - 05/07/2023 7:58 AM; Room: [address] [place] [address] Admission: 05/05/2023 7:10 PM; Length of stay: 2 days THE HOSPITALIST TEAM PREFERS TO USE [employer] CHAT FOR COMMUNICATION 7AM-7PM. IF I DO NOT RESPOND WITHIN 15 MINUTES, PLEASE PAGE ME/CALL THROUGH THE MAPPING EDITOR. FROM 7PM-7AM, PLEASE PAGE [phone](COVR) Code Status: No Order Barriers to Discharge: [...] 62 year-old female who is transferred from [facility] with chief complaint of sudden onset of shortness of breath and was found to been atrial fibrillation with RVR that was treated with Cardizem drip, further workup with echocardiogram shows ejection fraction of 40%. transferred to [facility] for further cardiac evaluation. Assessment: Atrial fibrillation with RVR- [id number] score 4 New onset of congestive heart [...] 05/06/2023 FREET4 1.08 05/06/19 (more content not included)...[facility]01-18-2024 NoteHospital Medicine Daily Progress Note - 05/06/2023 9:19 AM; Room: [address] [place] [address] Admission: 05/05/2023 7:10 PM; Length of stay: 1 days THE HOSPITALIST TEAM PREFERS TO USE [employer] CHAT FOR COMMUNICATION 7AM-7PM. IF I DO NOT RESPOND WITHIN 15 MINUTES, PLEASE PAGE ME/CALL THROUGH THE MAPPING EDITOR. FROM 7PM-7AM, PLEASE PAGE [phone](COVR) Code Status: No Order Barriers to Discharge: [...] 62 year-old female who is transferred from [facility] with chief complaint of sudden onset of shortness of breath and was found to been atrial fibrillation with RVR that was treated with Cardizem drip, further workup with echocardiogram shows ejection fraction of 40%. transferred to [facility] for further cardiac evaluation. Assessment: Atrial fibrillation with RVR- [id number] score 3 New onset of congestive heart [...] FREET4 1.08 05/06/2023 No results found for: [id number] , IRON , TIBC , C3 , C4 , ILSA , CANCA , ASO , P (more content not included)...[facility] 05-05-2023 NoteHospital Medicine History and Physical 05/05/2023 9:20 PM THE HOSPITALIST TEAM PREFERS TO USE [employer] FOR COMMUNICATION 7AM-7PM. IF I DO NOT RESPOND WITHIN 15 MINUTES, PLEASE PAGE ME/CALL THROUGH THE MAPPING EDITOR. FROM 7PM-7AM, PLEASE PAGE [phone](COVR) Chief Complaint No chief complaint on file. History of Present Illness Ngozi Cardoso is an 62 y.o. female admitted from [facility] as a direct admit. She has history of hypertension diabetes obstructive sleep apnea not using CPAP or BiPAP he was admitted at [facility] with chief complaint of sudden onset of shortness of breath. According to patient she wake up in the morning 2 days back very short of breath denies any chest pain heart palpitation dizziness syncope weakness no increased cough or expectoration and no fever chills cough drops with the family to [facility] with she was noted to be [...] we will retrieve copy of echo from [facility] follow-up with cardiology New onset congestive heart failure/HFrEF CHF core measures in place metoprolol Cozaar diuretics and add Farxiga serial electrolytes creatinine reduced ejection fraction would need left heart cath to rule out ischemic heart disease Hypertension blood pressure control as above suspect underlying obstructive sleep apnea discussed with patient about follow-up with her P (more content not included)...[facility]11-17-2023 Evaluation note* Encounter Date Diagnosis Assessment Notes [...] treatment plan. Patient left in stable condition [employer] Other [id number] Evaluation note* Diagnosis Onset Date Resolution Status Essential (primary) hypertension October 22, 2020 acute Paroxysmal atrial fibrillation acute Screening mammogram for breast cancer acute Type 2 diabetes mellitus with hyperglycemia acute [facility] Work Phone: Evaluation noteNo InformationNort [employer] Other Evaluation note* Diagnosis Onset Date Resolution Status Paroxysmal atrial fibrillation acute Screening mammogram for breast cancer acute Type 2 diabetes mellitus with hyperglycemia acute Wellness examination acute [facility] Work Phone: History general Narrative - Reported* [...] knee arthroplasty 05/07 Hospitalization History see above [employer] Other Summary Purpose Family History No Family [...] section and content) DATE CREATED AUTHOR 08/28/2018 [facility] DATE CREATED AUTHOR AUTHOR'S ORGANIZ ATION 05/07/2021 [facility] DATE CREATED AUTHOR AUTHOR'S ORGANIZ ATION 09/19/2021 Lipscomb Solano [facility] DATE CREATED AUTHOR AUTHOR'S ORGANIZ ATION 02/27/2022 [facility] [facility] DATE CREATED AUTHOR AUTHOR'S ORGANIZ ATION 12/15/2023 [facility] REASON FOR VISIT (unrecogniz ed section [...] Foreign Benjamin MD Primary Care Provider Active Start: [...] Attending Provider Active Start: July 09, 2023 Goals (unrecognized section and content) Goals [...] BE BASED ON THE PRIMARY CLINICAL RECORDS. [employer] provides no warranty or guarantee of the accuracy or completeness of information in this document.
== END 2023-12-16 12:28 | disposition home or self-care (01) ==
LOC: RAD 12:29
PROVIDERS: PCP Family Medicine; Visit Provider Family Medicine
DX: M54.50 Low back pain, unspecified (principal); M51.36 Other intervertebral disc degeneration, lumbar region
CPT/HCPCS: 72100

== ENCOUNTER 2024-01-25 11:00 | Outpatient (OUT) | payer OTHER, SELFPAY ==
--- OUTSIDE RECORDS SUMMARY | 2024-01-25 11:11 | XMS_ITS | CCD ---
Author Organization [facility] CliniSyga Care Team Providers Care Fire Support Man Name Role Phone Hans Whiteside Attending Unavailable [...] Foreign Unavailable JOSE LUIS CRONIN Referring Unavailable PRECIOUSBENY GOMEZ Attending Unavailable MILTON, JOSE LUIS Referring Unavailable MILTON, JOSE LUIS Referring Unavailable SANAULLAH, SEBAS Referring Unavailable MILTON, JOSE LUIS Attending Unavailable MILTON, JOSE LUIS Admitting Unavailable MILTON, JOSE LUIS Attending Unavailable SANAULLAH, SEBAS Referring Unavailable MILTON, JOSE LUIS Referring Unavailable MILTON, JOSE LUIS Referring Unavailable ELTAHAWY, EHAB Attending Unavailable MILTON, JOSE LUIS Referring Unavailable MILTON, JOSE LUIS Referring Unavailable MILTON, JOSE LUIS Attending Unavailable ASUNCION, LARA Attending Unavailable ASUNCION, LARA Attending Unavailable PRECIOUSBENY GOMEZ Attending Unavailable MILTON, JOSE LUIS Referring Unavailable MILTON, JOSE LUIS Admitting Unavailable MILTON, JOSE LUIS Attending Unavailable ADENIKE SERRANO Referring Unavailable MATTY, GUILLERMO Admitting Unavailable NOEMÍHEAVEN BOYD Attending Unavailable SANAULLAH, SEBAS Referring Unavailable Allergies Allergy Classification Reported Allergen(s) Allergy Type Date of Onset Reaction(s) Facility (5 sources) Penicillins; Translations: [PENICILLINS] Drug allergy (disorder) 02-07-20 13 [facility] Repository (9 sources) Ciprofloxacin Drug Allergy 08-12-19 Comment:nausea and diarrhea [facility] (9 sources) Penicillin G Drug Allergy 08-12-19 [facility] (10 sources) traMADol; Translations: [TRAMADOL] Drug Allergy 06-25-19 16 Unknown, [facility] (6 sources) Substance with penicillin structure and antibacterial mechanism of action (substance) Drug allergy 12-23-19 13 Unknown [facility] Other (6 sources) patient allergy list reviewed by nurse or physicia Propensity to adverse reactions 11-11-19 Comment:Done [facility] Other (6 sources) TraMADol & Dietary Manage Prod *ANALGESICS - OPIOI Propensity to adverse reactions 06-25-19 16 Unknown [facility] Other (6 sources) Allergies Reconciled Propensity to adverse reactions Unknown [facility] Other (1 source) diphenhydrAMINE; Translations: [DIPHENHYDRAMINE] Drug Allergy 10-28-19 [facility] Repository Medications Current Medications Medication Drug Class(es) Dates Sig (Normalized) Sig (Original) amiodarone hydrochloride 400 mg oral tablet (8 sources) Antiarrhythmic Start: 10-14-2023 take 200 mg [...] day Active apixaban 5 mg oral tablet (6 sources) Factor Xa Inhibitor Start: 06-18-2023 take 5 mg by mouth twice daily Apixaban Active 5 MG PO Twice daily June 18, 2023 1:00am take 1 tablet by mouth twice ruth ly Apixaban 5 MG 1 tablet Orally Twice a day Active aspirin 81 mg delayed release oral tablet (6 sources) Platelet Aggregation Inhibitor, Nonsteroidal Anti-inflammatory Drug [...] Active -Hx Entry for 0 *Reorder from [employer] for eRx and Interaction Alerts* Feb, Active [...] Jan, Active bumetanide 1 mg oral tablet (9 sources) Loop Diuretic Start: 06-18-2023 End: 08-12-2023 take 1 mg by mouth once daily Bumetanide Active 1 MG PO Daily August 12, 2023 12:00am take 1 tablet by dayday th every twenty-four hours Bumetanide 1 MG 1 tablet Orally Once a day Active carvedilol 6.25 mg oral tablet (6 sources) alpha-Adrenergic Saman, beta-Adrenergic Saman Start: 06-18-2023 take 6.25 mg by mouth twice daily Carvedilol Active 6.25 MG PO Twice daily June 18, 2023 1:00am take 1 tablet by dayday th every twelve hours Carvedilol 6.25 MG 1 tablet with food Orally Twice a day Active dapagliflozin 10 mg oral tablet (6 sources) Sodium-Glucose Cotransporter 2 Inhibitor Start: 06-18-2023 take 10 mg by mouth once daily Dapagliflozin Propanediol Active 10 MG PO Daily June 18, 2023 1:00am take 1 tablet by mouth once alvarez y Dapagliflozin Propanediol 10 MG 1 tablet Orally Once a day Active losartan potassium 25 mg oral tablet (2 sources) Angiotensin 2 Receptor Saman Start: 10-14-2023 take 25 mg by mouth once daily Losartan Active 25 MG PO Daily October 14, 2023 12:00am magnesium oxide 400 mg oral tablet (6 sources) Start: 06-18-2023 take 400 mg by mouth once daily Magnesium Oxide Active 400 MG PO Daily June 18, 2023 1:00am take 1 tablet by dayday th every twenty-four hours Magnesium Oxide 400 MG 1 tablet as needed Orally Once a day Active methylPREDNISolone 4 mg oral tablet (1 source) Corticosteroid Start: 12-16-2023 take 1 tablet by mouth once Methylprednisolone (Medrol (Eric)) 4 mg tablets,dose pack Active 0 PO per package directions December 16, 2023 12:00am PO PER PKG DIR for 6 days metoprolol tartrate 50 mg oral tablet (15 sources) beta-Adrenergic Saman Start: 09-02-2021 take 1 tablet by mouth once daily Metoprolol Succinate ER 50MG Metoprolol Succinate ER 50MG, 1 (one) Tablet Tablet daily # 0, 09/02/2021, No Refill. Active Oral daily for 0 *Pick strength-form from [employer] for eRX* August, Active Start: 07-14-2018 End: [...] MG 1 tablet Orally BID for 5 Feb,3 Active spironolactone 25 mg oral tablet (6 sources) Aldosterone Antagonist Start: 06-18-19 take 25 [...] Active Oral two times daily for 0 04 Jan, 2022 Active Completed/Discontinued Medications Medication Drug Class(es) Dates Sig (Normalized) Sig (Original) acetaminophen 325 mg oral tablet (3 sources) Start: 07-14-2018 End: 06-18-2023 take 650 [...] at bedtime for 0 *Pick strength-form from [employer] for eRX* Sep, Not-Taking/PRN take 1 tablet [...] sodium 75 mg delayed release oral tablet (15 sources) Nonsteroidal Anti-inflammatory Drug Start: 06-18-2023 End: [...] a day for 0 *Pick strength-form from [employer] for eRX* 11 Nov, 2021 Active Start: 06-22-2018 End: 07-14-2018 take 75 mg by mouth once daily in the morning Diclofenac Sodium Discontinued 75 MG PO Every morning June 22, 2018 1:00am July 14, 2018 12:23pm take 1 tablet by dayday twice daily at mealtime Diclofenac Sodium 75 MG TAKE 1 TABLET BY MOUTH TWICE DAILY WITH FOOD for 90 Not-Taking/PRN docusate sodium 100 mg oral capsule (3 sources) Start: 07-14-2018 End: 06-18-2023 take 100 mg by mouth twice daily Docusate Sodium Discontinued 100 MG PO Twice daily 60 30 July 14, 2018 12:00am June 18, 2023 3:38pm 0.4 ml enoxaparin sodium 100 mg/ml prefilled syringe (3 sources) Low Molecular Weight Heparin Start: 07-06-2018 End: 07-14-2018 Enoxaparin (Lovenox) 40 mg/0.4 mL Syringe Discontinued 40 MG SUBCUT Every 12 hours at 1000 & 2200 July 06, 2018 12:00am July 14, 2018 12:23pm hydrOXYzine pamoate 50 mg oral capsule (6 sources) Antihistamine Start: 07-06-2018 End: 07-14-2018 take [...] Start: 06-09-2020 Toradol p er 15 mg 21 b, 2021 30 mg Start: 11-13-2016 Toradol per 15 mg Oct, 30 mg 24 hr metFORMIN hydrochloride 500 mg extended release oral tablet (18 sources) Biguanide Start: 06-18-2023 End: 12-07-2023 take 500 mg by mouth once daily in the evening Metformin Discontinued 500 MG PO Every evening 90 December 07, 2023 8:39am December 07, 2023 8:40am Start: 03-16-2022 take 1 tablet by dayday th once daily in the evening Metformin 500mg metFORMIN 500mg, 1 (one) Tablet every evening # 0, 03/16/2022, No Refill. Active oral every evening for 0 *Reorder from [employer] for eRx and Interaction Alerts* Feb, Active take 1 tablet by dayday th once daily in the evening metFORMIN HCl ER 500 MG TAKE 1 TABLET BY MOUTH EVERY EVENING for 90 Active metFORMIN HCl No t-Taking/PRN metFORMIN HCl No t-Taking midodrine hydrochloride 5 mg oral tablet (3 sources) alpha-Adrenergic Agonist Start: 06-21-2023 End: 08-12-2023 take 1 dose by mouth once daily at bedtime Midodrine Discontinued 5 MG PO Three times daily June 21, 2023 1:00am August 12, 2023 11:11am do not give last dose of day after 6PM or within 4 hrs of bedtime Multivitamin (Multiple Vitamins) Tablet (3 sources) Start: 06-22-2018 End: 07-14-2018 take 1 tablet by mouth once daily Multivitamin (Multiple Vitamins) Tablet Discontinued 1 TAB PO Daily June 22, 2018 1:00am July 14, 2018 12:27pm Multivitamin With Folic Acid (Thera) 400 mcg Tablet (3 sources) Start: 07-14-2018 End: 06-18-2023 take 1 tablet by mouth once daily Multivitamin With Folic Acid (Thera) 400 mcg Tablet Discontinued 1 TAB PO Daily July 14, 2018 12:00am June 18, 2023 3:38pm oxyCODONE hydrochloride 5 mg oral tablet (15 sources) Opioid Agonist Start: 07-14-2018 End: 06-18-2023 [...] mg / valsartan 26 mg oral tablet (6 sources) Angiotensin 2 Receptor Saman Start: 06-18-2023 [...] mg vitamin b12 1 mg oral tablet (9 sources) Vitamin B12 Start: 06-22-2018 End: 06-18-2023 take 1000 ug by mouth once daily Cyanocobalamin (Vitamin B-12) Discontinued 1000 MCG PO Daily July 14, 2018 12:00am June 18, 2023 3:38pm Vitamin B 12 Act estela Problems Active Problems Problem Classification Problem Date Documented Da te Episodic/Chronic Acute and unspecified renal failure (3 sources) Acute renal failure syndrome; Translations: [Acute kidney failure, unspecified] 03-31-2023 Episodic Acute bronchitis (12 sources) Acute bronchitis; Translations: [Acute bronchitis due to other specified organisms] Episodic Administrative/social admission (3 sources) Other reduced mobility; Translations: [Impaired mobility and activities of daily living] 03-31-2023 Episodic Cardiac dysrhythmias (20 sources) Premature beats; Translations: [Other premature beats] Onset: Chronic Chronic obstructive pulmonary disease and bronchiectasis (6 sources) Bronchitis; Translations: [Bronchitis, not specified as acute or chronic] Episodic Coagulation and hemorrhagic disorders (9 sources) Immune thrombocytopenic purpura; Translations: [Immune thrombocytopenic purpura] 03-31-2023 Chronic Conduction disorders (7 sources) Left bundle-branch block, unspecified; Translations: [Left bundle branch block] Onset: 9 Chronic Congestive heart failure; nonhypertensive (10 sources) Congestive heart failure; Translations: [Heart failure, unspecified] Onset: 4 Chronic Deficiency and other anemia (9 sources) Anemia; Translations: [Anemia, unspecified] Onset: 9 03-31-2023 Episodic Diabetes mellitus with complications (11 sources) Hyperglycemia due to type 2 diabetes mellitus; Translations: [Type 2 diabetes mellitus with hyperglycemia] 06-18-2023 Chronic Diabetes mellitus without complication (6 sources) Impaired fasting glycemia; Translations: [Impaired fasting glucose] Episodic Essential hypertension (17 sources) Essential hypertension; Translations: [Essential (primary) hypertension] Onset: Chronic Fluid and electrolyte disorders (3 sources) Hypokalemia; Translations: [Hypokalemia] 03-31-2023 Episodic Genitourinary symptoms and ill-defined conditions (6 sources) Finding of frequency of urination; Translations: [Frequency of micturition] Episodic Osteoarthritis (20 sources) Osteoarthritis; Translations: [Unspecified osteoarthritis, unspecified site] Onset: 7 Chronic Other circulatory disease (6 sources) Elevated blood-pressure reading without diagnosis of hypertension; Translations: [Elevated blood-pressure reading, without diagnosis of hypertension] Episodic Other connective tissue disease (9 sources) History of total knee arthroplasty; Translations: [Presence of right artificial knee joint] 03-31-2023 Chronic Other connective tissue disease (6 sources) Pain in limb; Translations: [Pain in right finger(s)] Episodic Other connective tissue disease (1 source) Pain in left foot; Translations: [Pain in limb] 10-14-2023 Episodic Other diseases of bladder and urethra (9 sources) Overactive bladder; Translations: [Overactive bladder] Onset: 3 06-18-2023 Chronic Other gastrointestinal disorders (6 sources) Irritable bowel syndrome with diarrhea; Translations: [Irritable bowel syndrome with diarrhea] Chronic Other gastrointestinal disorders (6 sources) Diarrhea; Translations: [Diarrhea, unspecified] Episodic Other nervous system disorders (3 sources) Postoperative pain ; Translations: [Other acute postprocedural pain] 03-31-2023 Episodic Other nutritional; endocrine; and metabolic disorders (6 sources) Morbid obesity; Translations: [Morbid (severe) obesity due to excess calories] Onset: 5 Chronic Other nutritional; endocrine; and metabolic disorders (15 sources) Body mass index 40+ - severely obese; Translations: [Body mass index (BMI) 60.0-69.9, adult] 03-31-2023 Chronic Other screening for suspected conditions (not mental disorders or infectious disease) (16 sources) Abnormal electrocardiogram [ECG] [EKG]; Translations: [Other [...] sinusitis, unspecified] Chronic Phlebitis; thrombophlebitis and thromboembolism (3 sources) H/O: Deep vein thrombosis; Translations: [Personal history of other venous thrombosis and embolism] 07-06-2018 Episodic Residual codes; unclassified (12 sources) Obstructive sleep apnea syndrome; Translations: [Obstructive [...] skin and subcutaneous tissue] Onset: 6 Episodic Spondylosis; intervertebral disc disorders; other back problems (8 sources) Low back pain; Translations: [Lumbago] Onset: 5 12-16-2023 Episodic Unclassified (3 sources) Other ventricular tachycardia; Translations: [Other ventricular tachycardia] Unclassified (2 sources) Other persistent atrial fibrillation; Translations: [Other persistent atrial fibrillation] Onset: Past or Other Problems Problem Classification Problem Date Documented Da te Episodic/Chronic Cardiac dysrhythmias (2 sources) Palpitations; Translations: [Palpitations] Onset: 10-12-2023 Episodic Complications of surgical procedures or medical care [...] [Acute recurrent maxillary sinusitis] Onset: 01-14-2016 Episodic Unclassified (1 source) Contact with and (suspected) exposure to covid-19 Z20.822 Unclassified (3 sources) Lack of stamina; Translations: [Impaired endurance] 03-31-2023 Viral infection (1 source) COVID-19 Results Test Name Value Interpretation Reference Range Facility Follow-Upon 12-01-2023 Follow-Up [id number] Ngozi Cardoso 1960 F Date Provider Department Center 12/01/2023 BENY LAZAR Family History Problem Relation Age of Onset Heart attack Mother Stroke Mother Atrial fibrillation Father Heart attack Brother Stroke Brother Family Status - Relation Status Age at Mother Father Brother Level of Service:92792 OR OFFICE/OUTPATIENT ESTABLISHED LOW MDM 20 MIN Reason for Visit and Comments: Atrial Fibrillation [80] Normal [facility] Telephoneon 11-17-2023 Telephone [id number] Ngozi Cardoso 1960 F Date Provider Department Center 11/17/20231986-JEROMY [facility] [place] [facility] Family History Problem Relation Age of Onset Heart attack Mother Stroke Mother Atrial fibrillation Father Heart attack Brother Stroke Brother Family Status - Relation Status Age at Mother Father Brother Reason for Visit and Comments: 3 week f/u post ablation [Other] Normal [facility] Telephoneon 11-04-2023 Telephone [id number] Ngozi Cardoso 1960 F Date Provider Department Center 11/04/20231986-JEROMY [facility] [place] [facility] Family History Problem Relation Age of Onset Heart attack Mother Stroke Mother Atrial fibrillation Father Heart attack Brother Stroke Brother Family Status - Relation Status Age at Mother Father Brother Reason for Visit and Comments: week f/u post ablation [Other[facility] Electrophysiology Consult Note Reason for visit: [...] diabetes obstructive sleep apnea was admitted to [facility] with shortness of breath and [...] Intimate Partner Violence: Not At Risk (05/05/2023) [place] Safety & Environment Fear of Current or [...] Year: No Utilities: Not At Risk (05/05/2023) [facility] Utilities Threatened with loss of utilities: [...] mg tablet (more content not included)... Normal [facility] POCT GLUCOSE METER UNSOLICIT ED RESULTSon 10-28-2023 Glucose [Mass/Vol] 109 mg/dL High 70-105 [facility] Comment on above: Order Comment: Waive d Testing in the ED is performed under the ED CLIA certificate #[id number]. Result Comment: [address] Performed By: #### L [id number] #### [facility] (BEAKER) [address] [place] [address] PROTIME-INRon 10-28-2023 INR IN PPP BY COAGULATION ASSAY 1.22 High 0.90-1.10 [facility] Comment on above: Result Comment: ACCC P [...] RANGE. CHEST 1995;108:231S-246S. Performed By: #### L [id number] ####[facility] (BEAKER)[address] [place] [address] PROTHROMBIN TIME (PT) IN PPP BY COAGULATION ASSAY 15.4 Seconds High 12.3-14.8 [facility] Comment on above: Performed By: #### L [id number] ####[facility] (BEAKER)[address] [place] [address] Prep for Procedureon 024 Prep for Procedure [id number] Ngozi Cardoso 1960 Date Provider Department Center 10/28/2023 1987-JEROMY RO[facility] [place] [facility] Family History Problem Relation Age of Onset Heart attack Mother Stroke Mother Atrial fibrillation Father Heart attack Brother Stroke Brother Family Status - Relation Status Age at Mother Father Brother Normal [facility] Orders Onlyon 10-25-2023 Orders Only [id number] Ngozi Cardoso 1960 Date Provider Department Center 10/25/2023 Gui-JOELLE COTA [facility] Family History Problem Relation Age of Onset Heart attack Mother Stroke Mother Atrial fibrillation Father Heart attack Brother Stroke Brother Family Status - Relation Status Age at Mother Father Brother Normal [facility] Basophils Auto (Bld) [#/Vol] on 10-19-2023 Basophils (Bld) [#/Vol] 0.0 10 3/uL 0.0-0.1 [facility] Basophils/100 WBC Auto (Bld) on 10-19-2023 Basophils/100 WBC (Bld) 1.0 % 0.2-2.0 [facility] Eosinophils/100 WBC Auto (Bl d)on 10-19-2023 Eosinophils/100 WBC (Bld) 3.6 % 0.9-7.0 [facility] Erythrocyte distribution wid th Auto (RBC) [Ratio]on 10-19-2023 Erythrocyte distribution width (RBC) [Ratio] 13.6 % 11.0-15.0 [facility] Estimated glomerular filtrat ion rate (GFR) non- Americanon 10-19-2023 GFR/1.73 sq M.predicted among non-blacks MDRD (S/P/Bld) [Vol rate/Area] 41 mL/min/{1.73_m2} Low >=60 [facility] Hematocrit Auto (Bld) [Volum e fraction]on 10-19-2023 Hematocrit (Bld) [Volume fraction] 36.4 % 36.0-48.0 [facility] Hemoglobin [Mass/volume] in Bloodon 10-19-2023 Hemoglobin (Bld) [Mass/Vol] 11.5 g/dL Low 12.0-16.0 [facility] Laboratory - Chemistry and C hemistry - challengeon 10-19-2023 Calcium [Mass/Vol] 8.5 mg/dL 8.5-10.1 [facility] Chloride [Moles/Vol] 102 mmol/L 98-107 [facility] CO2 [Moles/Vol] 31.2 mmol/L 21.0-32.0 [facility] Creatinine [Mass/Vol] 1.31 mg/dL High 0.55-1.02 [facility] GFR/1.73 sq M.predicted MDRD (S/P/Bld) [Vol rate/Area] 50 mL/min/{1.73_m2} Low >=60 [facility] Glucose [Mass/Vol] 148 mg/dL High 74-106 [facility] Potassium [Moles/Vol] 3.8 mmol/L 3.5-5.1 [facility] Sodium [Moles/Vol] 142 mmol/L 136-145 [facility] Urea nitrogen [Mass/Vol] 22.0 mg/dL High 7.0-18.0 [facility] Urea nitrogen/Creatinine [Mass ratio] 16.8 mg/mg [facility] Laboratory - Hematology and Cell countson 10-19-2023 Immature granulocytes/100 WBC (Bld) 0.3 % 0.0-0.5 [facility] Leukocytes [#/volume] correc renato for nucleated erythrocytes in Blood by Automated counon 10-19-2023 WBC corrected for nucl RBC Auto (Bld) [#/Vol] 3.9 10 3/uL Low 4.0-11.0 [facility] Lymphocytes Auto (Bld) [#/Vo l]on 10-19-2023 Lymphocytes (Bld) [#/Vol] 1.0 10 3/uL Low 1.2-3.8 [facility] Lymphocytes/100 WBC Auto (Bl d)on 10-19-2023 Lymphocytes/100 WBC (Bld) 26.3 % 20.5-60.0 [facility] MCH Auto (RBC) [Entitic mass ]on 10-19-2023 MCH (RBC) [Entitic mass] 28.3 pg 26.7-34.0 [facility] MCHC Auto (RBC) [Mass/Vol]on 10-19-2023 MCHC (RBC) [Mass/Vol] 31.6 g/dL 29.9-35.2 [facility] MCV Auto (RBC) [Entitic vol] on 10-19-2023 MCV (RBC) [Entitic vol] 89.4 fL 81.0-99.0 [facility] Monocytes Auto (Bld) [#/Vol] on 10-19-2023 Monocytes (Bld) [#/Vol] 0.3 10 3/uL 0.3-0.8 [facility] Monocytes/100 WBC Auto (Bld) on 10-19-2023 Monocytes/100 WBC (Bld) 6.4 % 1.7-12.0 [facility] Neutrophils Auto (Bld) [#/Vo l]on 10-19-2023 Neutrophils (Bld) [#/Vol] 2.4 10 3/uL 1.4-6.5 [facility] Neutrophils/100 WBC Auto (Bl d)on 10-19-2023 Neutrophils/100 WBC (Bld) 62.4 % 43.0-75.0 [facility] No Panel Informationon 10-18 Eosinophils # (Auto) 0.1 10 3/uL 0.0-0.7 [facility] Immature Granulocyte # (Auto) 0.01 10 3/uL 0.00-0.03 [facility] Platelet mean volume Auto (B ld) [Entitic vol]on 10-19-2023 Platelet mean volume (Bld) [Entitic vol] 10.8 fL 9.5-13.5 [facility] Platelets Auto (Bld) [#/Vol] on 10-19-2023 Platelets (Bld) [#/Vol] 122 10 3/uL Low 150-450 [facility] RBC Auto (Bld) [#/Vol]on RBC (Bld) [#/Vol] 4.07 10 6/uL Low 4.20-5.40 [facility] Serum or plasma anion gap de terminationon 10-19-2023 Anion gap [Moles/Vol] 12.6 mmol/L [facility] Office Visiton 10-05-2023 Follow-up visit [id number] Ngozi Cardoso 1960 F Date Provider Department Center 10/05/2023 Yoana-JOSE LUIS CRONIN ELAINE Singh Family History Problem Relation Age of Onset Heart attack Mother Stroke Mother Atrial fibrillation Father Heart attack Brother Stroke Brother Family Status - Relation Status Age at Mother Father Brother Level of Service:[id number] OR OFFICE/OUTPATIENT ESTABLISHED HIGH MDM 40 MIN Normal [facility] Prep for Procedureon 024 Prep for Procedure [id number] Ngozi Cardoso 1960 F Date Provider Department Center 10/05/2023 JOSE LUSI WILLIS [facility] [place] [facility] Family History Problem Relation Age of Onset Heart attack Mother Stroke Mother Atrial fibrillation Father Heart attack Brother Stroke Brother Family Status - Relation Status Age at Mother Father Brother Normal [facility] Glucose mean value [Mass/vol ume] in Blood Estimated from glycated hemoglobinon 08-28-2023 Average glucose Estimated from glycated hemoglobin (Bld) [Mass/Vol] 111 mg/dL [facility] Laboratory - Hematology and Cell countson 08-28-2023 HbA1c (Bld) [Mass fraction] 5.5 % 4.5-6.2 [facility] Comment on above: ADA RECOMMENDED LIMI T 4.0 - 6.0ADA THERAPEUTIC TARGET < 7.0ACTION SUGGESTED> 7.0 Office Visiton 08-12-2023 Follow-up visit [id number] Ngozi Cardoso 1960 Date Provider Department Center 08/12/[address]ENY [address] [facility] Family History Problem Relation Age of Onset Heart attack Mother Stroke Mother Atrial fibrillation Father Heart attack Brother Stroke Brother Family Status - Relation Status Age at Mother Father Brother Level of Service:[id number] OR OFFICE/OUTPATIENT ESTABLISHED MOD MDM 30 MIN Reason for Visit and Comments: Atrial Fibrillation [80] Congestive Heart Failure [127] Normal [facility] 36on 07-19-2023 36 Can wait to see how she does [facility] HPon 07-12-2023 [facility] Electrophysiology Consult Note Reason for visit: Afib HPI: Ngozi Cardoso is a 62 y.o. year old with past medical history of hypertension diabetes obstructive sleep apnea was admitted to [facility] with shortness of breath and [...] file (05/05/2023) Utilities: Not At Risk (05/05/2023) [facility] Utilities Threatened with loss of utilities: [...] bilateral no (more content not included)... Normal [facility] NURSNOTEon 07-12-2023 NURSNOTE RN educated pt on d/ c instructions. RN encouraged pt to voice any questions or concerns. Pt verbalizes no questions or concerns at this time. Pt was wheeled off of unit with all of belongings. Normal [facility] Basophils Auto (Bld) [#/Vol] on 07-09-2023 Basophils (Bld) [#/Vol] 0.1 10 3/uL 0.0-0.1 [facility] Basophils/100 WBC Auto (Bld) on 07-09-2023 Basophils/100 WBC (Bld) 1.2 % 0.2-2.0 [facility] [facility] Eosinophils/100 WBC Auto (Bl d)on 07-09-2023 Eosinophils/100 WBC (Bld) 4.3 % 0.9-7.0 [facility] Erythrocyte distribution wid th Auto (RBC) [Ratio]on 07-09-2023 Erythrocyte distribution width (RBC) [Ratio] 15.3 % 11.0-15.0 [facility] Estimated glomerular filtrat ion rate (GFR) non- Americanon 07-09-2023 GFR/1.73 sq M.predicted among non-blacks MDRD (S/P/Bld) [Vol rate/Area] 43 mL/min/{1.73_m2} >=60 [facility] Hematocrit Auto (Bld) [Volum e fraction]on 07-09-2023 Hematocrit (Bld) [Volume fraction] 40.3 % 36.0-48.0 [facility] Hemoglobin [Mass/volume] in Bloodon 07-09-2023 Hemoglobin (Bld) [Mass/Vol] 12.8 g/dL 12.0-16.0 [facility] Laboratory - Chemistry and C hemistry - challengeon 07-09-2023 Calcium [Mass/Vol] 8.9 mg/dL 8.5-10.1 [facility] Chloride [Moles/Vol] 102 mmol/L 98-107 [facility] CO2 [Moles/Vol] 30.1 mmol/L 21.0-32.0 [facility] Creatinine [Mass/Vol] 1.27 mg/dL 0.55-1.02 [facility] GFR/1.73 sq M.predicted MDRD (S/P/Bld) [Vol rate/Area] 52 mL/min/{1.73_m2} >=60 [facility] Glucose [Mass/Vol] 114 mg/dL 74-106 [facility] Potassium [Moles/Vol] 3.7 mmol/L 3.5-5.1 [facility] Sodium [Moles/Vol] 142 mmol/L 136-145 [facility] Urea nitrogen [Mass/Vol] 18.0 mg/dL 7.0-18.0 [facility] Urea nitrogen/Creatinine [Mass ratio] 14.2 mg/mg [facility] - Hematology and Cell countson 07-09-2023 Immature granulocytes/100 WBC (Bld) 0.2 % 0.0-0.5 [facility] Leukocytes [#/volume] correc renato for nucleated erythrocytes in Blood by Automated counon 07-09-2023 WBC corrected for nucl RBC Auto (Bld) [#/Vol] 4.2 10 3/uL 4.0-11.0 [facility] Lymphocytes Auto (Bld) [#/Vo l]on 07-09-2023 Lymphocytes (Bld) [#/Vol] 1.5 10 3/uL 1.2-3.8 [facility] Lymphocytes/100 WBC Auto (Bl d)on 07-09-2023 Lymphocytes/100 WBC (Bld) 34.8 % 20.5-60.0 [facility] MCH Auto (RBC) [Entitic mass ]on 07-09-2023 MCH (RBC) [Entitic mass] 29.0 pg 26.7-34.0 [facility] MCHC Auto (RBC) [Mass/Vol]on 07-09-2023 MCHC (RBC) [Mass/Vol] 31.8 g/dL 29.9-35.2 [facility] MCV Auto (RBC) [Entitic vol] on 07-09-2023 MCV (RBC) [Entitic vol] 91.4 fL 81.0-99.0 [facility] Monocytes Auto (Bld) [#/Vol] on 07-09-2023 Monocytes (Bld) [#/Vol] 0.3 10 3/uL 0.3-0.8 [facility] Monocytes/100 WBC Auto (Bld) on 07-09-2023 Monocytes/100 WBC (Bld) 7.6 % 1.7-12.0 [facility] Neutrophils Auto (Bld) [#/Vo l]on 07-09-2023 Neutrophils (Bld) [#/Vol] 2.2 10 3/uL 1.4-6.5 [facility] Neutrophils/100 WBC Auto (Bl d)on 07-09-2023 Neutrophils/100 WBC (Bld) 51.9 % 43.0-75.0 [facility] No Panel Informationon 07-08 Eosinophils # (Auto) 0.2 10 3/uL 0.0-0.7 [facility] Immature Granulocyte # (Auto) 0.01 10 3/uL 0.00-0.03 [facility] Platelet mean volume Auto (B ld) [Entitic vol]on 07-09-2023 Platelet mean volume (Bld) [Entitic vol] 12.4 fL 9.5-13.5 [facility] Platelets Auto (Bld) [#/Vol] on 07-09-2023 Platelets (Bld) [#/Vol] 108 10 3/uL 150-450 [facility] RBC Auto (Bld) [#/Vol]on RBC (Bld) [#/Vol] 4.41 10 6/uL 4.20-5.40 [facility] Serum or plasma anion gap de terminationon 07-09-2023 Anion gap [Moles/Vol] 13.6 mmol/L [facility] Orders Onlyon 07-08-2023 Orders Only [id number] Ngozi Cardoso 1960 F Date Provider Department Center 07/08/2023 MIKE RODRIGUEZ [facility] [place] [facility] Family History Problem Relation Age of Onset Heart attack Mother Stroke Mother Atrial fibrillation Father Heart attack Brother Stroke Brother Family Status - Relation Status Age at Mother Father Brother Normal [facility] Office Visiton 06-30-2023 Follow-up visit [id number] Ngozi Cardoso 1960 F Date Provider Department Center 06/30/2023 120-LARA ROLAND [facility] Family History Problem Relation Age of Onset Heart attack Mother Stroke Mother Atrial fibrillation Father Heart attack Brother Stroke Brother Family Status - Relation Status Age at Mother Father Brother Level of Service:25346 OR OFFICE/OUTPATIENT ESTABLISHED LOW MDM 20 MIN Normal [facility] Office Visiton 06-18-2023 Follow-up visit [id number] Ngozi Cardoso Curtis 1960 Date Provider Department Center 06/18/2023 120-LARA ROLAND CARD [facility] Family History Problem Relation Age of Onset Heart attack Mother Stroke Mother Atrial fibrillation Father Heart attack Brother Stroke Brother Family Status - Relation Status Age at Mother Father Brother Level of Service:99612 OR OFFICE/OUTPATIENT ESTABLISHED MOD MDM 30 MIN Normal [facility] Office Visiton 06-08-2023 Follow-up visit [id number] Ngozi Cardoso Curtis 1960 Date Provider Department Center 06/08/2023 JOSE LUIS WILLIS ELAINE [facility] Family History Problem Relation Age of Onset Heart attack Mother Stroke Mother Atrial fibrillation Father Heart attack Brother Stroke Brother Family Status - Relation Status Age at Mother Father Brother Level of Service:35802 OR OFFICE/OUTPATIENT NEW HIGH MDM 60 MINUTES Normal [facility] Office Visiton 05-17-2023 Follow-up visit [id number] Ngozi Cardoso Curtis 1960 Date Provider Department Center 05/17/2023 REGINA JORDAN CARD [facility] Family History Problem Relation Age of Onset Heart attack Mother Stroke Mother Atrial fibrillation Father Heart attack Brother Stroke Brother Family Status - Relation Status Age at Mother Father Brother Level of Service:59279 OR OFFICE/OUTPATIENT ESTABLISHED LOW MDM 20 MIN Normal [facility] 36on 05-12-2023 36 Discharge date: 05/11/23 Call date: 05/12/23 Spoke with: patient HF Follow-up date: 05/17/23 Med reconciliation completed: yes Questions/Concerns: Home meds reviewe with pt. Pt asked about [facility] paperwork that her company was to fax over to the 3rd floor for the discharging provider. [employer] will reach out to the Hospitalist team. Pt is aware of follow up appt. Soaker encouraged pt to monitor daily weights and notified pt where to find education on her AVS to refer to. [facility] Documentationon 05-12-2023 Documentation [id number] Ngozi Cardoso 1960 F Date Provider Department Center 05/12/2023 SUSSY SOLO [facility] No family history on file Reason for Visit and Comments: HF inpatient satisfaction survey sent. [Other] [facility] Telephoneon 05-12-2023 Telephone [id number] Ngozi Cardoso 1960 F Date Provider Department Center 05/12/202350206-ARHUXAE, MANDY [facility] No family history on file Reason for Visit and Comments: HF post discharge call [Other] [facility] 30on 05-11-2023 30 Problem: Pain - Adul t Goal: Verbalizes/displays adequate comfort level or baseline comfort level Outcome: Progressing Problem: Safety - Adult Goal: Free from fall injury Outcome: Progressing Flowsheets (Taken 05/11/2023 0746) Free from fall injury: Assess patient frequently for physical needs Identify cognitive and physical deficits and behaviors that affect risk of falls [place] fall precautions as indicated by assessment Modify [...] alleviate retention as needed Discuss catheterization for long term acute care registered nurse situations as appropriate The patient is Moderately Stable - Low risk of patient condition declining or worsening The patient's goals for the shift include comfort The clinical goals for the shift include safety Normal [facility] BASIC METABOLIC PANELon 04-20 Anion gap [Moles/Vol] 11 mmol/L Normal 7-20 [facility] Comment on above: Performed By: #### L [id number] #### [facility] ([facility]) [address] [place] [address] Calcium [Mass/Vol] 9.7 mg/dL Normal 8.6-10.3 [facility] Comment on above: Performed By: #### L [id number] #### [facility] ([facility]) [address] [facility] [place] [address] Chloride [Moles/Vol] 98 mmol/L Normal 98-107 [facility] Comment on above: Performed By: #### L [id number] #### [facility] ([facility]) [address] [place] [address] CO2 [Moles/Vol] 30 mmol/L Normal 21-31 [facility] Comment on above: Performed By: #### L [id number] #### [facility] ([facility]) [address] [place] [address] Creatinine [Mass/Vol] 0.80 mg/dL Normal 0.60-1.20 [facility] Comment on above: Performed By: #### L [id number] #### [facility] ([facility]) [address] [place] [address] GLOMERULAR FILTRATION RATE ML/MIN/1.73 SQ M.PREDICTED 83.8 mL/min/1.73m*2 Normal >60.0 [facility] Comment on above: Result Comment: [facility]???s estimated glomerular filtration rate (eGFR) will no [...] group of individuals. Performed By: #### L [id number] #### [facility] ([facility]) [address] [place] [address] Glucose [Mass/Vol] 116 mg/dL High 70-100 [facility] Comment on above: Performed By: #### L [id number] #### [facility] ([facility]) [address] [facility] [place] [address] Potassium [Moles/Vol] 3.7 mmol/L Normal 3.5-5.1 [facility] Comment on above: Performed By: #### L [id number] #### [facility] ([facility]) [address] [place] [address] Sodium [Moles/Vol] 135 mmol/L Low 136-145 [facility] Comment on above: Performed By: #### L [id number] #### [facility] ([facility]) [address] [facility] [place] [address] Urea nitrogen [Mass/Vol] 17 mg/dL Normal 7-25 [facility] Comment on above: Performed By: #### L [id number] #### [facility] ([facility]) [address] [facility] [place] [address] UREA NITROGEN/CREATININE (MASS RATIO) IN SER/PLAS 21.3 Normal [facility] Comment on above: Performed By: #### L [id number] #### [facility] ([facility]) [address] [place] [address] CBCon 05-11-2023 Erythrocyte distribution width (RBC) [Ratio] 15.2 % High 11.5-15.0 [facility] Comment on above: Performed By: #### L [id number] #### [facility] ([facility]) [address] [place] [address] ERYTHROCYTE MEAN CORPUSCULAR HEMOGLOBIN CONCENTRATION (G/DL) BY AUTOMATED 31.9 g/dL Low 32.0-35.0 [facility] Comment on above: Performed By: #### L [id number] #### [facility] ([facility]) [address] [place] [address] Hematocrit (Bld) [Volume fraction] 40.7 % Normal 36.0-48.0 [facility] Comment on above: Performed By: #### L [id number] #### [facility] ([facility]) [address] [place] [address] Hemoglobin (Bld) [Mass/Vol] 13.0 g/dL Normal 12.0-15.0 [facility] Comment on above: Performed By: #### L [id number] #### [facility] ([facility]) [address] [place] [address] MCH (RBC) [Entitic mass] 28.4 pg Normal 27.0-33.0 [facility] Comment on above: Performed By: #### L [id number] #### [facility] ([facility]) [address] [place] [address] MCV (RBC) [Entitic vol] 88.9 fL Normal 82.0-98.0 [facility] Comment on above: Performed By: #### L [id number] #### [facility] ([facility]) [address] [place] [address] PLATELETS (10*3/UL) IN BLOOD AUTOMATED COUNT 107 10*3/uL Low 150-400 [facility] Comment on above: Performed By: #### L [id number] #### [facility] ([facility]) [address] [place] [address] RBC (Bld) [#/Vol] 4.58 10*6/uL Normal 3.80-5.00 [facility] Comment on above: Performed By: #### L [id number] #### [facility] ([facility]) [address] [place] [address] WBC (Bld) [#/Vol] 4.32 10*3/uL Normal 4.00-10.60 [facility] Comment on above: Performed By: #### L [id number] #### [facility] ([facility]) [address] [place] [address] LIPID PANELon 05-11-2023 CHOL/HDL 4.8 mg/dL Normal [facility] Comment on above: Performed By: #### L [id number] ####[facility] ([facility])[address] [place] [address] Cholesterol [Mass/Vol] 152 mg/dL Normal 120-200 [facility] Comment on above: Performed By: #### L [id number] ####[facility] ([facility])[address] [place] [address] Magnesium [Mass/Vol] 77 mg/dL Normal 40-149 [facility] Comment on above: Result Comment: TRIG LYCERIDE REFERENCE RANGE: 20 YEARS AND OLDER CARDIOVASCULAR RISK LESS THAN 150 mg/dL LOW RISK 150 TO 199 mg/dL BORDERLINE RISK 200 mg/dL AND GREATER HIGH RISK Performed By: #### L [id number] ####[facility] ([facility])[address] [place] [address] Magnesium [Mass/Vol] 105 mg/dL Normal 0-160 [facility] Comment on above: Performed By: #### L [id number] ####[facility] ([facility])[address] [place] [address] Magnesium [Mass/Vol] 32 mg/dL Normal 23-92 [facility] Comment on above: Performed By: #### L [id number] ####[facility] ([facility])[address] [place] [address] NON HDL CHOL. (LDL+VLDL) 120 Normal [facility] Comment on above: Performed By: #### L [id number] ####[facility] ([facility])[address] [place] [address] TOTAL VLDL-C 15 mg/dL Normal 0-40 [facility] Comment on above: Performed By: #### L [id number] ####[facility] ([facility])[address] [place] [address] MAGNESIUMon 05-11-2023 Magnesium [Mass/Vol] 1.7 mg/dL Low 1.9-2.7 [facility] Comment on above: Performed By: #### L [id number] #### [facility] ([facility]) [address] [place] [address] POCT GLUCOSE METER UNSOLICIT ED RESULTSon 05-11-2023 Glucose [Mass/Vol] 114 mg/dL High 70-105 [facility] Comment on above: Order Comment: Waive d Testing in the ED is performed under the ED CLIA certificate #[id number]. Result Comment: [email or web address] Performed By: #### L [id number] #### [facility] ([facility]) [address] [place] [address] 30on 05-10-2023 30 The patient is Moderately Stable - Low risk of patient condition declining or worsening The patient's goals for the shift include comfort The clinical goals for the shift include safety Normal [facility] 30 Problem: Pain - Adul t Goal: Verbalizes/displays adequate comfort level or baseline comfort level Outcome: Progressing Problem: Safety - Adult Goal: Free from fall injury Outcome: Progressing Flowsheets (Taken 05/10/2023 0848) Free from fall injury: Assess patient frequently for physical needs Identify cognitive and physical deficits and behaviors that affect risk of falls [place] fall precautions as indicated by assessment Educate [...] integrity remains intact Recent Flowsheet Documentation Taken 05/10/2023840 by Verónica Pope RN Skin integrity remains [...] goals for the shift include safety Normal [facility] BASIC METABOLIC PANELon 04-20 Anion gap [Moles/Vol] 8 mmol/L Normal 7-20 [facility] Comment on above: Performed By: #### L [id number] #### [facility] ([facility]) [address] [place] [address] Calcium [Mass/Vol] 9.7 mg/dL Normal 8.6-10.3 [facility] Comment on above: Performed By: #### L [id number] #### [facility] ([facility]) [address] [place] [address] Chloride [Moles/Vol] 99 mmol/L Normal 98-107 [facility] Comment on above: Performed By: #### L [id number] #### [facility] ([facility]) [address] [place] [address] CO2 [Moles/Vol] 33 mmol/L High 21-31 [facility] Comment on above: Performed By: #### L [id number] #### [facility] ([facility]) [address] [facility] [place] [address] Creatinine [Mass/Vol] 0.80 mg/dL Normal 0.60-1.20 [facility] Comment on above: Performed By: #### L [id number] #### [facility] ([facility]) [address] [place] [address] GLOMERULAR FILTRATION RATE ML/MIN/1.73 SQ M.PREDICTED 83.8 mL/min/1.73m*2 Normal >60.0 [facility] Comment on above: Result Comment: [facility]???s estimated glomerular filtration rate (eGFR) will no [...] group of individuals. Performed By: #### L [id number] #### [facility] ([facility]) [address] [place] [address] Glucose [Mass/Vol] 110 mg/dL High 70-100 [facility] Comment on above: Performed By: #### L [id number] #### [facility] ([facility]) [address] [place] [address] Potassium [Moles/Vol] 3.8 mmol/L Normal 3.5-5.1 [facility] Comment on above: Performed By: #### L [id number] #### [facility] ([facility]) [address] [place] [address] Sodium [Moles/Vol] 136 mmol/L Normal 136-145 [facility] Comment on above: Performed By: #### L [id number] #### [facility] ([facility]) [address] [place] [address] Urea nitrogen [Mass/Vol] 18 mg/dL Normal 7-25 [facility] Comment on above: Performed By: #### L [id number] #### [facility] ([facility]) [address] [place] [address] UREA NITROGEN/CREATININE (MASS RATIO) IN SER/PLAS 22.5 Normal [facility] Comment on above: Performed By: #### L [id number] #### [facility] ([facility]) [address] [place] [address] MAGNESIUMon 05-10-2023 Magnesium [Mass/Vol] 1.7 mg/dL Low 1.9-2.7 [facility] Comment on above: Performed By: #### L [id number] ####[facility] ([facility])[address] [facility] [place] [address] POCT GLUCOSE METER UNSOLICIT ED RESULTSon 05-10-2023 Glucose [Mass/Vol] 119 mg/dL High 70-105 [facility] Comment on above: Order Comment: Waive d Testing in the ED is performed under the ED CLIA certificate #[id number]. Result Comment: [email or web address] Performed By: #### L [id number] #### [facility] ([facility]) [address] [place] [address] Glucose [Mass/Vol] 141 mg/dL High 70-105 [facility] Comment on above: Order Comment: Waive d Testing in the ED is performed under the ED CLIA certificate #[id number]. Result Comment: [email or web address] Performed By: #### L [id number] ####[facility] ([facility])[address] [facility] [place] [address] Glucose [Mass/Vol] 162 mg/dL High 70-105 [facility] Comment on above: Order Comment: Waive d Testing in the ED is performed under the ED CLIA certificate #[id number]. Result Comment: [email or web address] Performed By: #### L [id number] ####[facility] ([facility])[address] [place] [address] Glucose [Mass/Vol] 111 mg/dL High 70-105 [facility] Comment on above: Order Comment: Waive d Testing in the ED is performed under the ED CLIA certificate #[id number]. Result Comment: [email or web address] Performed By: #### L [id number] ####[facility] ([facility])[address] [place] [address] 30on 05-09-2023 30 The patient is Moderately [...] medication and electrolyte replacement as ordered Normal [facility] 30 The patient is Moderately Stable - [...] maintained within prescribed range Outcome: Progressing Normal [facility] BASIC METABOLIC PANELon 04-20 Anion gap [Moles/Vol] 10 mmol/L Normal 7-20 [facility] Comment on above: Performed By: #### L [id number] #### [facility] ([facility]) [address] [place] [address] Calcium [Mass/Vol] 9.4 mg/dL Normal 8.6-10.3 [facility] Comment on above: Performed By: #### L [id number] #### [facility] ([facility]) [address] [place] [address] Chloride [Moles/Vol] 98 mmol/L Normal 98-107 [facility] Comment on above: Performed By: #### L [id number] #### [facility] ([facility]) [address] [place] [address] CO2 [Moles/Vol] 31 mmol/L Normal 21-31 [facility] Comment on above: Performed By: #### L [id number] #### [facility] ([facility]) [address] [place] [address] Creatinine [Mass/Vol] 0.90 mg/dL Normal 0.60-1.20 [facility] Comment on above: Performed By: #### L [id number] #### [facility] ([facility]) [address] [place] [address] GLOMERULAR FILTRATION RATE ML/MIN/1.73 SQ M.PREDICTED 72.7 mL/min/1.73m*2 Normal >60.0 [facility] Comment on above: Result Comment: [facility]???s estimated glomerular filtration rate (eGFR) will no [...] group of individuals. Performed By: #### L [id number] #### [facility] ([facility]) [address] [place] [address] Glucose [Mass/Vol] 102 mg/dL High 70-100 [facility] Comment on above: Performed By: #### L [id number] #### [facility] ([facility]) [address] [place] [address] Potassium [Moles/Vol] 4.0 mmol/L Normal 3.5-5.1 [facility] Comment on above: Performed By: #### L [id number] #### [facility] ([facility]) [address] [place] [address] Sodium [Moles/Vol] 135 mmol/L Low 136-145 [facility] Comment on above: Performed By: #### L [id number] #### [facility] ([facility]) [address] [place] [address] Urea nitrogen [Mass/Vol] 20 mg/dL Normal 7-25 [facility] Comment on above: Performed By: #### L [id number] #### [facility] ([facility]) [address] [place] [address] UREA NITROGEN/CREATININE (MASS RATIO) IN SER/PLAS 22.2 Normal [facility] Comment on above: Performed By: #### L [id number] #### [facility] ([facility]) [address] [place] [address] CBCon 05-09-2023 Erythrocyte distribution width (RBC) [Ratio] 15.7 % High 11.5-15.0 [facility] Comment on above: Performed By: #### L [id number] ####[facility] [facility] [place])[address] [place] [address] ERYTHROCYTE MEAN CORPUSCULAR HEMOGLOBIN CONCENTRATION (G/DL) BY AUTOMATED 32.6 g/dL Normal 32.0-35.0 [facility] Comment on above: Performed By: #### L [id number] ####[facility] ([facility])[address] [place] [address] Hematocrit (Bld) [Volume fraction] 39.6 % Normal 36.0-48.0 [facility] Comment on above: Performed By: #### L [id number] ####[facility] ([facility])[address] [place] [address] Hemoglobin (Bld) [Mass/Vol] 12.9 g/dL Normal 12.0-15.0 [facility] Comment on above: Performed By: #### L [id number] ####[facility] ([facility])[address] [place] [address] MCH (RBC) [Entitic mass] 28.8 pg Normal 27.0-33.0 [facility] Comment on above: Performed By: #### L [id number] ####[facility] ([facility])[address] [place] [address] MCV (RBC) [Entitic vol] 88.4 fL Normal 82.0-98.0 [facility] Comment on above: Performed By: #### L [id number] ####[facility] ([facility])[address] [place] [address] PLATELETS (10*3/UL) IN BLOOD AUTOMATED COUNT 124 10*3/uL Low 150-400 [facility] Comment on above: Performed By: #### L [id number] ####[facility] ([facility])[address] [place] [address] RBC (Bld) [#/Vol] 4.48 10*6/uL Normal 3.80-5.00 [facility] Comment on above: Performed By: #### L [id number] ####[facility] ([facility])[address] [place] [address] WBC (Bld) [#/Vol] 4.51 10*3/uL Normal 4.00-10.60 [facility] Comment on above: Performed By: #### L [id number] ####[facility] ([facility])[address] [place] [address] MAGNESIUMon 05-09-2023 Magnesium [Mass/Vol] 1.9 mg/dL Normal 1.9-2.7 [facility] Comment on above: Performed By: #### L [id number] #### [facility] ([facility]) [address] [place] [address] POCT GLUCOSE METER UNSOLICIT ED RESULTSon 05-09-2023 Glucose [Mass/Vol] 145 mg/dL High 70-105 [facility] Comment on above: Order Comment: Waive d Testing in the ED is performed under the ED CLIA certificate #[id number]. Result Comment: [email or web address] Performed By: #### L [id number] ####[facility] ([facility])[address] [facility] [place] [address] Glucose [Mass/Vol] 118 mg/dL High 70-105 [facility] Comment on above: Order Comment: Waive d Testing in the ED is performed under the ED CLIA certificate #[id number]. Result Comment: [email or web address] Performed By: #### L [id number] ####[facility] ([facility])[address] [facility] [place] [address] Glucose [Mass/Vol] 152 mg/dL High 70-105 [facility] Comment on above: Order Comment: Waive d Testing in the ED is performed under the ED CLIA certificate #[id number]. Result Comment: [email or web address] Performed By: #### L [id number] #### [facility] ([facility]) [address] [place] [address] Glucose [Mass/Vol] 105 mg/dL Normal 70-105 [facility] Comment on above: Order Comment: Waive d Testing in the ED is performed under the ED CLIA certificate #[id number]. Result Comment: [email or web address] Performed By: #### L [id number] #### [facility] ([facility]) [address] [place] [address] 30on 05-08-2023 30 The patient is Moderately Stable - Low risk of patient condition declining or worsening The patient's goals for the shift include comfort The clinical goals for the shift include safety Normal [facility] 30 The patient is Moderately Stable - [...] and maintained or improved Outcome: Progressing Normal [facility] APTTon 05-08-2023 ACTIVATED PARTIAL THROMBOPLASTIN TIME IN PPP BY COAGULATION ASSAY 36.7 Seconds High 25.0-35.0 [facility] Comment on above: Result Comment: Clin ical significance of the APTT is questionable in the presence of heparin. Performed By: #### L [id number] ####[facility] ([facility])[address] [place] [address] BASIC METABOLIC PANELon 04-20 Anion gap [Moles/Vol] 10 mmol/L Normal 7-20 [facility] Comment on above: Performed By: #### L [id number] #### [facility] ([facility]) [address] [place] [address] Calcium [Mass/Vol] 9.9 mg/dL Normal 8.6-10.3 [facility] Comment on above: Performed By: #### L [id number] #### [facility] ([facility]) [address] [place] [address] Chloride [Moles/Vol] 99 mmol/L Normal 98-107 [facility] Comment on above: Performed By: #### L [id number] #### [facility] ([facility]) [address] [place] [address] CO2 [Moles/Vol] 34 mmol/L High 21-31 [facility] Comment on above: Performed By: #### L [id number] #### [facility] ([facility]) [address] [place] [address] Creatinine [Mass/Vol] 0.90 mg/dL Normal 0.60-1.20 [facility] Comment on above: Performed By: #### L [id number] #### [facility] ([facility]) [address] [place] [address] GLOMERULAR FILTRATION RATE ML/MIN/1.73 SQ M.PREDICTED 72.7 mL/min/1.73m*2 Normal >60.0 [facility] Comment on above: Result Comment: The [facility]???s estimated glomerular filtration rate (eGFR) will no [...] individuals. Performed By: #### L [id number] #### [facility] ([facility]) [address] [place] [address] Glucose [Mass/Vol] 94 mg/dL Normal 70-100 [facility] Comment on above: Performed By: #### L [id number] #### [facility] ([facility]) [address] [place] [address] Potassium [Moles/Vol] 3.5 mmol/L Normal 3.5-5.1 [facility] Comment on above: Performed By: #### L [id number] #### [facility] ([facility]) [address] [place] [address] Sodium [Moles/Vol] 139 mmol/L Normal 136-145 [facility] Comment on above: Performed By: #### L [id number] #### [facility] ([facility]) [address] [place] [address] Urea nitrogen [Mass/Vol] 18 mg/dL Normal 7-25 [facility] Comment on above: Performed By: #### L [id number] #### [facility] ([facility]) [address] [place] [address] UREA NITROGEN/CREATININE (MASS RATIO) IN SER/PLAS 20.0 Normal [facility] Comment on above: Performed By: #### L [id number] #### [facility] ([facility]) [address] [place] [address] MAGNESIUMon 05-08-2023 Magnesium [Mass/Vol] 1.3 mg/dL Low 1.9-2.7 [facility] Comment on above: Performed By: #### L [id number] #### [facility] ([facility]) [address] [place] [address] POCT GLUCOSE METER UNSOLICIT ED RESULTSon 05-08-2023 Glucose [Mass/Vol] 121 mg/dL High 70-105 [facility] Comment on above: Order Comment: Waive d Testing in the ED is performed under the ED CLIA certificate #[id number]. Result Comment: [email or web address] Performed By: #### L [id number] ####[facility] ([facility])[address] [place] [address] Glucose [Mass/Vol] 110 mg/dL High 70-105 [facility] Comment on above: Order Comment: Waive d Testing in the ED is performed under the ED CLIA certificate #[id number]. Result Comment: [email or web address] Performed By: #### L [id number] ####[facility] ([facility])[address] [place] [address] Glucose [Mass/Vol] 150 mg/dL High 70-105 [facility] Comment on above: Order Comment: Waive d Testing in the ED is performed under the ED CLIA certificate #[id number]. Result Comment: [email or web address] Performed By: #### L [id number] ####[facility] ([facility])[address] [place] [address] Glucose [Mass/Vol] 118 mg/dL High 70-105 [facility] Comment on above: Order Comment: Waive d Testing in the ED is performed under the ED CLIA certificate #[id number]. Result Comment: [email or web address] Performed By: #### L [id number] ####[facility] ([facility])[address] [place] [address] 30on 05-07-2023 30 The patient is Moderately Stable - Low risk of patient condition declining or worsening The patient's goals for the shift include comfort The clinical goals for the shift include safety Normal [facility] 30 Problem: Pain - Adul t Goal: Verbalizes/displays adequate comfort level or baseline comfort level Outcome: Progressing Flowsheets (Taken 05/07/2023832) Verbalizes/displays adequate comfort level or baseline comfort [...] shift include cardiac cath without complications Normal [facility] APTTon 05-07-2023 ACTIVATED PARTIAL THROMBOPLASTIN TIME IN PPP BY COAGULATION ASSAY 123.2 Seconds High 25.0-35.0 [facility] Comment on above: Order Comment: Check aPTT every 6 hours while on heparin infusion, or per protocol. Result Comment: Clin ical significance of the APTT is questionable in the presence of heparin. Performed By: #### L [id number] ####[facility] ([facility])[address] [place] [address] BASIC METABOLIC PANELon 04-19 Anion gap [Moles/Vol] 11 mmol/L Normal 7-20 [facility] Comment on above: Performed By: #### L [id number] #### [facility] ([facility]) [address] [place] [address] Calcium [Mass/Vol] 9.7 mg/dL Normal 8.6-10.3 [facility] Comment on above: Performed By: #### L [id number] #### [facility] ([facility]) [address] [place] [address] Chloride [Moles/Vol] 98 mmol/L Normal 98-107 [facility] Comment on above: Performed By: #### L [id number] #### [facility] ([facility]) [address] [place] [address] CO2 [Moles/Vol] 32 mmol/L High 21-31 [facility] Comment on above: Performed By: #### L [id number] #### [facility] ([facility]) [address] [place] [address] Creatinine [Mass/Vol] 0.86 mg/dL Normal 0.60-1.20 [facility] Comment on above: Performed By: #### L [id number] #### [facility] ([facility]) [address] [place] [address] GLOMERULAR FILTRATION RATE ML/MIN/1.73 SQ M.PREDICTED 76.8 mL/min/1.73m*2 Normal >60.0 [facility] Comment on above: Result Comment: The [facility]???s estimated glomerular filtration rate (eGFR) will no [...] individuals. Performed By: #### L [id number] #### [facility] ([facility]) [address] [place] [address] Glucose [Mass/Vol] 110 mg/dL High 70-100 [facility] Comment on above: Performed By: #### L [id number] #### [facility] ([facility]) [address] [place] [address] Potassium [Moles/Vol] 3.4 mmol/L Low 3.5-5.1 [facility] Comment on above: Performed By: #### L [id number] #### [facility] ([facility]) [address] [place] [address] Sodium [Moles/Vol] 138 mmol/L Normal 136-145 [facility] Comment on above: Performed By: #### L [id number] #### [facility] ([facility]) [address] [place] [address] Urea nitrogen [Mass/Vol] 14 mg/dL Normal 7-25 [facility] Comment on above: Performed By: #### L [id number] #### [facility] ([facility]) [address] [place] [address] UREA NITROGEN/CREATININE (MASS RATIO) IN SER/PLAS 16.3 Normal [facility] Comment on above: Performed By: #### L [id number] #### [facility] ([facility]) [address] [place] [address] CBCon 05-07-2023 Erythrocyte distribution width (RBC) [Ratio] 15.7 % High 11.5-15.0 [facility] Comment on above: Performed By: #### L [id number] ####[facility] ([facility])[address] [place] [address] ERYTHROCYTE MEAN CORPUSCULAR HEMOGLOBIN CONCENTRATION (G/DL) BY AUTOMATED 32.4 g/dL Normal 32.0-35.0 [facility] Comment on above: Performed By: #### L [id number] ####[facility] ([facility])[address] [place] [address] Hematocrit (Bld) [Volume fraction] 38.3 % Normal 36.0-48.0 [facility] Comment on above: Performed By: #### L [id number] ####[facility] ([facility])[address] [place] [address] Hemoglobin (Bld) [Mass/Vol] 12.4 g/dL Normal 12.0-15.0 [facility] Comment on above: Performed By: #### L [id number] ####[facility] ([facility])[address] [place] [address] MCH (RBC) [Entitic mass] 28.6 pg Normal 27.0-33.0 [facility] Comment on above: Performed By: #### L [id number] ####[facility] ([facility])[address] [place] [address] MCV (RBC) [Entitic vol] 88.2 fL Normal 82.0-98.0 [facility] Comment on above: Performed By: #### L [id number] ####[facility] ([facility])[address] [place] [address] PLATELETS (10*3/UL) IN BLOOD AUTOMATED COUNT 121 10*3/uL Low 150-400 [facility] Comment on above: Performed By: #### L [id number] ####[facility] ([facility])[address] [place] [address] RBC (Bld) [#/Vol] 4.34 10*6/uL Normal 3.80-5.00 [facility] Comment on above: Performed By: #### L [id number] ####[facility] ([facility])[address] [place] [address] WBC (Bld) [#/Vol] 4.25 10*3/uL Normal 4.00-10.60 [facility] Comment on above: Performed By: #### L [id number] ####[facility] ([facility])[address] [place] [address] HPon 05-07-2023 HP H&P reviewed. The patient was examined and there are no changes to the H&P. Regina Stark MD, MPH, [facility], [facility], [facility] Interventional Cardiology Pager Email: [email or web address] Normal [facility] POCT GLUCOSE METER UNSOLICIT ED RESULTSon 05-07-2023 Glucose [Mass/Vol] 125 mg/dL High 70-105 [facility] Comment on above: Order Comment: Waive d Testing in the ED is performed under the ED CLIA certificate #[id number]. Result Comment: [email or web address] Performed By: #### L [id number] ####[facility] ([facility])[address] [place] [address] Glucose [Mass/Vol] 101 mg/dL Normal 70-105 [facility] Comment on above: Order Comment: Waive d Testing in the ED is performed under the ED CLIA certificate #[id number]. Result Comment: [email or web address] Performed By: #### L [id number] #### [facility] ([facility]) [address] [place] [address] 30on 05-06-2023 30 The patient is Moderately Stable - Low risk of patient condition declining or worsening The patient's goals for the shift include comfort The clinical goals for the shift include VSS Problem: Pain - Adult Goal: Verbalizes/displays adequate comfort level or baseline comfort level Outcome: Progressing Flowsheets (Taken 05/06/2023806 by Denice Lala RN) Verbalizes/displays adequate comfort [...] and behaviors that affect risk of falls [place] fall precautions as indicated by assessment Educate [...] and prevent overall improvement and discharge Normal [facility] 30 Daily Case Managemen t Update Multidisciplinary rounds have been completed. Barriers to Discharge: Pending clinical course and improvement in clinical condition. Patient admitted with chronic heart failure transferred from [facility]. Plan for coronary angiography tomorrow [...] tray) chicken salad sandwich on wheat, peach dutch yogurt, diet cola 05/06/23 1516 05/05/23 2154 Regular Diet Diabetic Female (carb 45g/meal) Diet effective now Question Answer Comment Room Service? Yes Carbohydrate restriction: Diabetic Female (carb 45g/meal) 05/05/232152 Physician Expected Discharge Date: Discharge Delays: PT Six Click Score: 23 OT Six Click Score: PT Recommendations: OT Recommendations: New Consults: Normal [facility] 30 Problem: Pain - Adul t Goal: [...] and behaviors that affect risk of falls [place] fall precautions as indicated by assessment Educate [...] for the shift include hemodynamically stable Normal [facility] APTTon 05-06-2023 ACTIVATED PARTIAL THROMBOPLASTIN TIME IN PPP BY COAGULATION ASSAY 106.0 Seconds High 25.0-35.0 [facility] Comment on above: Order Comment: Waive d Testing in the ED is performed under the ED CLIA certificate #[id number]. Result Comment: Clin ical significance of the APTT is questionable in the presence of heparin. Performed By: #### L [id number] #### [facility] ([facility]) [address] [place] [address] ACTIVATED PARTIAL THROMBOPLASTIN TIME IN PPP BY COAGULATION ASSAY 104.8 Seconds High 25.0-35.0 [facility] Comment on above: Order Comment: Check aPTT every 6 hours while on heparin infusion, or per protocol. Result Comment: Clin ical significance of the APTT is questionable in the presence of heparin. Performed By: #### L [id number] #### [facility] ([facility]) [address] [place] [address] ACTIVATED PARTIAL THROMBOPLASTIN TIME IN PPP BY COAGULATION ASSAY 134.0 Seconds Critically high 25.0-35.0 [facility] Comment on above: Order Comment: Check aPTT every 6 hours while on heparin infusion, or per protocol. Result Comment: Clin ical significance of the APTT is questionable in the presence of heparin. Performed By: #### L [id number] #### [facility] ([facility]) [address] [place] [address] ACTIVATED PARTIAL THROMBOPLASTIN TIME IN PPP BY COAGULATION ASSAY 143.7 Seconds Critically high 25.0-35.0 [facility] Comment on above: Order Comment: Basel ine aPTT before initiating heparin infusion. Result Comment: Clin ical significance of the APTT is questionable in the presence of heparin. Performed By: #### L [id number] #### [facility] ([facility]) [address] [place] [address] COMPREHENSIVE METABOLIC PANE Shamir 05-06-2023 Albumin [Mass/Vol] 3.6 g/dL Normal 3.5-5.7 [facility] Comment on above: Performed By: #### L [id number] #### [facility] ([facility]) [address] [place] [address] ALP [Catalytic activity/Vol] 41 U/L Normal 34-104 [facility] Comment on above: Performed By: #### L [id number] #### [facility] ([facility]) [address] [place] [address] ALT [Catalytic activity/Vol] 24 U/L Normal 7-52 [facility] Comment on above: Performed By: #### L [id number] #### [facility] ([facility]) [address] [place] [address] Anion gap [Moles/Vol] 14 mmol/L Normal 7-20 [facility] Comment on above: Performed By: #### L [id number] #### [facility] ([facility]) [address] [place] [address] AST [Catalytic activity/Vol] 42 U/L High 13-39 [facility] Comment on above: Performed By: #### L [id number] #### [facility] ([facility]) [address] [place] [address] Bilirubin [Mass/Vol] 1.3 mg/dL High 0.3-1.0 [facility] Comment on above: Performed By: #### L [id number] #### [facility] ([facility]) [address] [place] [address] Calcium [Mass/Vol] 9.7 mg/dL Normal 8.6-10.3 [facility] Comment on above: Performed By: #### L [id number] #### [facility] ([facility]) [address] [place] [address] Chloride [Moles/Vol] 101 mmol/L Normal 98-107 [facility] Comment on above: Performed By: #### L [id number] #### [facility] ([facility]) [address] [place] [address] CO2 [Moles/Vol] 27 mmol/L Normal 21-31 [facility] Comment on above: Performed By: #### L [id number] #### [facility] ([facility]) [address] [place] [address] Creatinine [Mass/Vol] 0.74 mg/dL Normal 0.60-1.20 [facility] Comment on above: Performed By: #### L [id number] #### [facility] ([facility]) [address] [place] [address] GLOMERULAR FILTRATION RATE ML/MIN/1.73 SQ M.PREDICTED 92.0 mL/min/1.73m*2 Normal >60.0 [facility] Comment on above: Result Comment: The [facility]???s estimated glomerular filtration rate (eGFR) will no [...] individuals. Performed By: #### L [id number] #### [facility] ([facility]) [address] [place] [address] Glucose [Mass/Vol] 101 mg/dL High 70-100 [facility] Comment on above: Performed By: #### L [id number] #### [facility] ([facility]) [address] [place] [address] Potassium [Moles/Vol] 3.6 mmol/L Normal 3.5-5.1 [facility] Comment on above: Performed By: #### L [id number] #### [facility] ([facility]) [address] [place] [address] Protein [Mass/Vol] 7.2 g/dL Normal 6.0-8.3 [facility] Comment on above: Performed By: #### L [id number] #### [facility] ([facility]) [address] [place] [address] Sodium [Moles/Vol] 138 mmol/L Normal 136-145 [facility] Comment on above: Performed By: #### L [id number] #### [facility] ([facility]) [address] [place] [address] Urea nitrogen [Mass/Vol] 13 mg/dL Normal 7-25 [facility] Comment on above: Performed By: #### L [id number] #### [facility] ([facility]) [address] [place] [address] UREA NITROGEN/CREATININE (MASS RATIO) IN SER/PLAS 17.6 Normal [facility] Comment on above: Performed By: #### L [id number] #### [facility] ([facility]) [address] [place] [address] CONSULTon 05-06-2023 CONSULT -- Attestation signed by [...] obstructive sleep apnea who was admitted to [facility] with sudden onset shortness of breath. Reports that she woke up suddenly from sleep feeling short of breath. She initially thought that this was a COVID infection. In the ED at [place], she was noted to be in atrial [...] branch block pattern. Patient was transferred to [facility] for further evaluation.Patient denies any history [...] Value Ventricular Rate 81 Atrial Rate 81 OR Interval 208 QRS DURATION 178 QT Interval 442 QTC CALCULATION(BAZETT) 513 P [place] 34 R-[place] -48 T Wave [place] 101 Impression Normal sinus rhythm Left axis deviation Left bundle branch block Abnormal ECG When compared with ECG of 13-FEB-2013 09:22, No significant change was found Confirmed by Jose Luis Cronin ([id number]) on 05/05/2023 9:15:31 PM Lab Results Component Value Date TROPONINI 0. (more content not included)... Normal [facility] HPon 05-06-2023 -- Attestation signed by Obey Edmondson MD [...] obstructive sleep apnea who was admitted to [facility] with sudden onset shortness of breath. Reports that she woke up suddenly from sleep feeling short of breath. She initially thought that this was a COVID infection. In the ED at [place], she was noted to be in atrial [...] branch block pattern. Patient was transferred to [facility] for further evaluation.Patient denies any history [...] Value Ventricular Rate 81 Atrial Rate 81 OR Interval 208 QRS DURATION 178 QT Interval 442 QTC CALCULATION(BAZETT) 513 P [place] 34 R-[place] -48 T Wave [place] 101 Impression Normal sinus rhythm Left axis deviation Left bundle branch block Abnormal ECG When compared with ECG of 13-FEB-2013 09:22, No significant change was found Confirmed by Jose Luis Cronin ([id number]) on 05/05/2023 9:15:31 PM Lab Results Component Value Date TROPONINI 0. (more content not included)... Normal [facility] MAGNESIUMon 05-06-2023 Magnesium [Mass/Vol] 1.5 mg/dL Low 1.9-2.7 [facility] Comment on above: Performed By: #### L [id number] #### [facility] ([facility]) [address] [place] [address] PLATELET COUNTon 05-06-2023 PLATELETS (10*3/UL) IN BLOOD AUTOMATED COUNT 121 10*3/uL Low 150-400 [facility] Comment on above: Performed By: #### L [id number] #### [facility] ([facility]) [address] [place] [address] POCT GLUCOSE METER UNSOLICIT ED RESULTSon 05-06-2023 Glucose [Mass/Vol] 105 mg/dL Normal 70-105 [facility] Comment on above: Order Comment: Waive d Testing in the ED is performed under the ED CLIA certificate #[id number]. Result Comment: [email or web address] Performed By: #### L [id number] #### [facility] ([facility]) [address] [place] [address] Glucose [Mass/Vol] 116 mg/dL High 70-105 [facility] Comment on above: Order Comment: Waive d Testing in the ED is performed under the ED CLIA certificate #[id number]. Result Comment: [email or web address] Performed By: #### L [id number] ####[facility] ([facility])[address] [place] [address] Glucose [Mass/Vol] 131 mg/dL High 70-105 [facility] Comment on above: Order Comment: Waive d Testing in the ED is performed under the ED CLIA certificate #[id number]. Result Comment: [email or web address] Performed By: #### L [id number] #### [facility] ([facility]) [address] [place] [address] Glucose [Mass/Vol] 100 mg/dL Normal 70-105 [facility] Comment on above: Order Comment: Waive d Testing in the ED is performed under the ED CLIA certificate #[id number]. Result Comment: [email or web address] Performed By: #### L [id number] #### [facility] ([facility]) [address] [place] [address] T4, FREEon 05-06-2023 THYROXINE (T4) FREE (NG/DL) IN SER/PLAS 1.08 ng/dL Normal 0.71-1.85 [facility] Comment on above: Performed By: #### L [id number] #### [facility] ([facility]) [address] [place] [address] TROPONIN Ion 05-06-2023 Troponin I.cardiac [Mass/Vol] 0.01 ng/mL Normal 0.00-0.04 [facility] Comment on above: Performed By: #### L [id number] #### [facility] ([facility]) [address] [place] [address] TSH3 REFLEX TO FT4on 024 THYROTROPIN (MIU/L) IN SER/PLAS BY DETECTION LIMIT <= 0.05 MIU/L 5.84 mIU/L High 0.34-5.60 [facility] Comment on above: Performed By: #### L [id number] #### [facility] ([facility]) [address] [place] [address] 30on 05-05-2023 30 The patient is Moderately [...] and behaviors that affect risk of falls [place] fall precautions as indicated by assessment Educate [...] and prevent overall improvement and discharge Normal [facility] B-TYPE NATRIURETIC PEPTIDEon 05-05-2023 Natriuretic peptide B (Bld) [Mass/Vol] 97 pg/mL Normal 0-100 [facility] Comment on above: Performed By: #### L [id number] #### [facility] ([facility]) [address] [place] [address] BASIC METABOLIC PANELon 04-19 Anion gap [Moles/Vol] 11 mmol/L Normal 7-20 [facility] Comment on above: Performed By: #### L [id number] #### [facility] ([facility]) [address] [place] [address] Calcium [Mass/Vol] 9.5 mg/dL Normal 8.6-10.3 [facility] Comment on above: Performed By: #### L [id number] #### [facility] ([facility]) [address] [place] [address] Chloride [Moles/Vol] 101 mmol/L Normal 98-107 [facility] Comment on above: Performed By: #### L [id number] #### [facility] ([facility]) [address] [place] [address] CO2 [Moles/Vol] 30 mmol/L Normal 21-31 [facility] Comment on above: Performed By: #### L [id number] #### [facility] ([facility]) [address] [place] [address] Creatinine [Mass/Vol] 0.69 mg/dL Normal 0.60-1.20 [facility] Comment on above: Performed By: #### L [id number] #### [facility] ([facility]) [address] [place] [address] GLOMERULAR FILTRATION RATE ML/MIN/1.73 SQ M.PREDICTED 98.7 mL/min/1.73m*2 Normal >60.0 [facility] Comment on above: Result Comment: The [facility]???s estimated glomerular filtration rate (eGFR) will no [...] individuals. Performed By: #### L [id number] #### [facility] ([facility]) [address] [place] [address] Glucose [Mass/Vol] 90 mg/dL Normal 70-100 [facility] Comment on above: Performed By: #### L [id number] #### [facility] ([facility]) [address] [place] [address] Potassium [Moles/Vol] 3.8 mmol/L Normal 3.5-5.1 [facility] Comment on above: Performed By: #### L [id number] #### [facility] ([facility]) [address] [place] [address] Sodium [Moles/Vol] 138 mmol/L Normal 136-145 [facility] Comment on above: Performed By: #### L [id number] #### [facility] ([facility]) [address] [place] [address] Urea nitrogen [Mass/Vol] 13 mg/dL Normal 7-25 [facility] Comment on above: Performed By: #### L [id number] #### [facility] ([facility]) [address] [place] [address] UREA NITROGEN/CREATININE (MASS RATIO) IN SER/PLAS 18.8 Normal [facility] Comment on above: Performed By: #### L [id number] #### [facility] ([facility]) [address] [place] [address] CBCon 05-05-2023 Erythrocyte distribution width (RBC) [Ratio] 15.7 % High 11.5-15.0 [facility] Comment on above: Performed By: #### L [id number] #### [facility] ([facility]) [address] [place] [address] ERYTHROCYTE MEAN CORPUSCULAR HEMOGLOBIN CONCENTRATION (G/DL) BY AUTOMATED 32.6 g/dL Normal 32.0-35.0 [facility] Comment on above: Performed By: #### L [id number] #### [facility] ([facility]) [address] [place] [address] Hematocrit (Bld) [Volume fraction] 39.9 % Normal 36.0-48.0 [facility] Comment on above: Performed By: #### L [id number] #### [facility] ([facility]) [address] [place] [address] Hemoglobin (Bld) [Mass/Vol] 13.0 g/dL Normal 12.0-15.0 [facility] Comment on above: Performed By: #### L [id number] #### [facility] ([facility]) [address] [place] [address] MCH (RBC) [Entitic mass] 28.9 pg Normal 27.0-33.0 [facility] Comment on above: Performed By: #### L [id number] #### [facility] ([facility]) [address] [place] [address] MCV (RBC) [Entitic vol] 88.7 fL Normal 82.0-98.0 [facility] Comment on above: Performed By: #### L [id number] #### [facility] ([facility]) [address] [place] [address] PLATELETS (10*3/UL) IN BLOOD AUTOMATED COUNT 139 10*3/uL Low 150-400 [facility] Comment on above: Performed By: #### L [id number] #### [facility] ([facility]) [address] [place] [address] RBC (Bld) [#/Vol] 4.50 10*6/uL Normal 3.80-5.00 [facility] Comment on above: Performed By: #### L [id number] #### [facility] ([facility]) [address] [place] [address] WBC (Bld) [#/Vol] 5.73 10*3/uL Normal 4.00-10.60 [facility] Comment on above: Performed By: #### L [id number] #### [facility] ([facility]) [address] [place] [address] MAGNESIUMon 05-05-2023 Magnesium [Mass/Vol] 1.4 mg/dL Low 1.9-2.7 [facility] Comment on above: Performed By: #### L [id number] #### [facility] ([facility]) [address] [place] [address] POCT GLUCOSE METER UNSOLICIT ED RESULTSon 05-05-2023 Glucose [Mass/Vol] 87 mg/dL Normal 70-105 [facility] Comment on above: Order Comment: Waive d Testing in the ED is performed under the ED CLIA certificate #[id number]. Result Comment: [email or web address] Performed By: #### L [id number] ####[facility] ([facility])[address] [place] [address] TROPONIN Ion 05-05-2023 Troponin I.cardiac [Mass/Vol] 0.03 ng/mL Normal 0.00-0.04 [facility] Comment on above: Performed By: #### L [id number] #### [facility] ([facility]) [address] [place] [address] CBC AUTO DIFFon 02-21-2022 BASO # 0.0 103/ul Normal 0.0-0.1 [facility] Comment on above: Performed By: #### C BC #### [facility] [address] [place] [address] Dr. Rivas Zhao Basophils/100 WBC (Bld) 0.7 % Normal 0.2-2.0 [facility] Comment on above: Performed By: #### C BC #### [facility] [address] [place] [address] Dr. Rivas Zhao EO # 0.2 103/ul Normal 0.0-0.7 [facility] Comment on above: Performed By: #### C BC #### [facility] [address] [place] [address] Dr. Rivas Zhao Eosinophils/100 WBC (Bld) 3.4 % Normal 0.9-7.0 [facility] Comment on above: Performed By: #### C BC #### [facility] [address] [place] [address] Dr. Rivas Zhao Erythrocyte distribution width (RBC) [Ratio] 14.8 % Normal 11.0-15.0 [facility] Comment on above: Performed By: #### C BC #### [facility] [address] [place] [address] Dr. Rivas Zhao Hematocrit (Bld) [Volume fraction] 38.4 % Normal 36.0-48.0 [facility] Comment on above: Performed By: #### C BC #### [facility] [address] [place] [address] Dr. Rivas Zhao Hemoglobin (Bld) [Mass/Vol] 12.7 g/dL Normal 12.0-16.0 [facility] Comment on above: Performed By: #### C BC #### [facility] [address] [place] [address] Dr. Rivas Zhao IG # 0.01 10e3/ul Normal 0.00-0.03 [facility] Comment on above: Performed By: #### C BC #### [facility] [address] [place] [address] Dr. Rivas Zhao IG % 0.2 % Normal 0.0-0.5 [facility] Comment on above: Performed By: #### C BC #### [facility] [address] [place] [address] Dr. Rivas Zhao LYMPH # 1.5 103/ul Normal 1.2-3.8 [facility] Comment on above: Performed By: #### C BC #### [facility] [address] [place] [address] Dr. Rivas Zhao Lymphocytes/100 WBC (Bld) 34.9 % Normal 20.5-60.0 [facility] Comment on above: Performed By: #### C BC #### [facility] [address] [place] [address] Dr. Rivas Zhao MANUAL DIFF REQ NO Normal [facility] Comment on above: Performed By: #### C BC #### [facility] [address] [place] [address] Dr. Rivas Zhao MCH (RBC) [Entitic mass] 30.2 pg Normal 26.7-34.0 [facility] Comment on above: Performed By: #### C BC #### [facility] [address] [place] [address] Dr. Rivas Zhao MCHC (RBC) [Mass/Vol] 33.1 g/dL Normal 29.9-35.2 [facility] Comment on above: Performed By: #### C BC #### [facility] [address] [place] [address] Dr. Rivas Zhao MCV (RBC) [Entitic vol] 91.2 fL Normal 81.0-99.0 [facility] Comment on above: Performed By: #### C BC #### [facility] [address] [place] [address] Dr. Rivas Zhao MONO # 0.3 103/ul Normal 0.3-0.8 [facility] Comment on above: Performed By: #### C BC #### [facility] [address] [place] [address] Dr. Rivas Zhao Monocytes/100 WBC (Bld) 5.9 % Normal 1.7-12.0 [facility] Comment on above: Performed By: #### C BC #### [facility] [address] [place] [address] Dr. Rivas Zhao NEUT # 2.4 103/ul Normal 1.4-6.5 [facility] Comment on above: Performed By: #### C BC #### [facility] [address] [place] [address] Dr. Rivas Zhao Neutrophils/100 WBC (Bld) 54.9 % Normal 43.0-75.0 [facility] Comment on above: Performed By: #### C BC #### [facility] [address] [place] [address] Dr. Rivas Zhao Platelet mean volume (Bld) [Entitic vol] 11.9 fL Normal 9.5-13.5 [facility] Comment on above: Performed By: #### C BC #### [facility] [address] [place] [address] Dr. Rivas Zhao PLT 107 103/ul Critically low 150-450 [facility] Comment on above: Performed By: #### C BC #### [facility] [address] [place] [address] Dr. Rivas Zhao RBC 4.21 106/ul Normal 4.20-5.40 [facility] Comment on above: Performed By: #### C BC #### [facility] [address] [place] [address] Dr. Rivas Zhao WBC 4.4 103/ul Normal 4.0-11.0 [facility] Comment on above: Performed By: #### C BC #### [facility] [address] [place] [address] Dr. Rivas Zhao GLYCOHEMOGLOBIN A1Con 2021 ADA RECOMMENDATION SEE BELOW Normal [facility] Comment on above: Result Comment: ADA RECOMMENDED LIMIT 4.0 - 6.0 ADA THERAPEUTIC TARGET < 7.0 ACTION SUGGESTED > 7.0 Performed By: #### A 1C #### [facility] [address] [place] [address] Dr. Rivas Zhao Glucose [Mass/Vol] 117 mg/dL Normal [facility] Comment on above: Performed By: #### A 1C #### [facility] [address] [place] [address] Dr. Rivas Zhao HbA1c (Bld) [Mass fraction] 5.7 % Normal 4.5-6.2 [facility] Comment on above: Performed By: #### A 1C #### [facility] [address] [place] [address] Dr. Rivas Zhao LIPID PROFILEon 02-21-2022 CHOL-HDL RATIO NORM SEE BELOW Normal [facility] Comment on above: Result Comment: 3.3 - 4.4 LOW RISK 4.4 - 7.1 AVERAGE RISK 7.1 - 11.0 MODERATE RISK >11.0 HIGH RISK Performed By: #### L IPID, CMP #### [facility] [address] [address] [address] Rivas Zhao Cholesterol [Mass/Vol] 160 mg/dL Normal <=200 [facility] Comment on above: Performed By: #### L IPID, CMP #### [facility] [address] [address] [address] Rivas Zhao Cholesterol in HDL [Mass/Vol] 49 mg/dL Normal 40-60 [facility] Comment on above: Performed By: #### L IPID, CMP #### [facility] [address] [address] [address] Rivas Zhao Cholesterol in LDL [Mass/Vol] 96.0 mg/dL Normal [facility] Comment on above: Performed By: #### L IPID, CMP #### [facility] [address] [address] [address] Rivas Zhao Cholesterol.total/Ch olesterol in HDL [Mass ratio] 3.3 {ratio} Normal [facility] Comment on above: Performed By: #### L IPID, CMP #### [facility] [address] [address] [address] Rivas Zhao HDL NORMAL > or = 60 mg/dl - LO W CARDIOVASCULAR RISK <40 mg/dl - HIGH CARDIOVASCULAR RISK Normal [facility] Comment on above: Performed By: #### L IPID, CMP #### [facility] [address] [address] [address] Rivas Zhao LDL CALC NORMAL SEE BELOW Normal [facility] Comment on above: Result Comment: <100 mg/dl OPTIMAL 100 - 129 mg/dl NEAR OR ABOVE OPTIMAL 130 - 159 mg/dl BORDERLINE HIGH 160 - 189 mg/dl HIGH >190 mg/dl VERY HIGH Performed By: #### L IPID, CMP #### [facility] [address] [address] [address] Rivas Zhao Triglyceride [Mass/Vol] 75 mg/dL Normal <=150 [facility] Comment on above: Performed By: #### L IPID, CMP #### [facility] [address] [address] [address] Rivas Zhao VLDL CALC 15.0 mg/dL Normal [facility] Comment on above: Performed By: #### L IPID, CMP #### [facility] [address] [address] [address] Rivas Zhao PROF 14(COMP METB)on 022 Albumin [Mass/Vol] 3.0 g/dL Critically low 3.4-5.[address] [facility] Comment on above: Performed By: #### L IPID, CMP #### [facility] [address] [place] [address] Dr. Rivas Zhao Albumin/Globulin [Mass ratio] 0.6 {ratio} Normal [facility] Comment on above: Performed By: #### L IPID, CMP #### [facility] [address] [place] [address] Dr. Rivas Zhao ALP [Catalytic activity/Vol] 74 U/L Normal 46-116 [facility] Comment on above: Performed By: #### L IPID, CMP #### [facility] [address] [place] [address] Dr. Rvias Zhao ALT [Catalytic activity/Vol] 59 U/L Normal 14-59 [facility] Comment on above: Performed By: #### L IPID, CMP #### [facility] [address] [place] [address] Dr. Rivas Zhao Anion gap [Moles/Vol] 9.2 mmol/L Normal [facility] Comment on above: Performed By: #### L IPID, CMP #### [facility] [address] [place] [address] Dr. Rivas Zhao AST [Catalytic activity/Vol] 65 U/L Critically high 15-37 [facility] Comment on above: Performed By: #### L IPID, CMP #### [facility] [address] [address] [address] Rivas Zhao Bilirubin [Mass/Vol] 1.1 mg/dL Critically high 0.2-1.0 [facility] Comment on above: Performed By: #### L IPID, CMP #### [facility] [address] [address] [address] Rivas Zhao Calcium [Mass/Vol] 8.8 mg/dL Normal 8.5-10.1 [facility] Comment on above: Performed By: #### L IPID, CMP #### [facility] [address] [address] [address] Rivas Zhao Chloride [Moles/Vol] 102 mmol/L Normal 98-107 [facility] Comment on above: Performed By: #### L IPID, CMP #### [facility] [address] [place] [address] Dr. Rivas Zhao CO2 [Moles/Vol] 32.5 mmol/L Critically high 21.0-32.0 [facility] Comment on above: Performed By: #### L IPID, CMP #### [facility] [address] [place] [address] Dr. Rivas Zhao Creatinine [Mass/Vol] 0.76 mg/dL Normal 0.55-1.02 [facility] Comment on above: Performed By: #### L IPID, CMP #### [facility] [address] [place] [address] Dr. Rivas Zhao EGFR-AF IRISH >60 Normal >=60 [facility] Comment on above: Performed By: #### L IPID, CMP #### [facility] [address] [place] [address] Dr. Rivas Zhao EGFR-NON AF IRISH >60 Normal >=60 [facility] Comment on above: Performed By: #### L IPID, CMP #### [facility] [address] [place] [address] Dr. Rivas Zhao Globulin (S) [Mass/Vol] 4.7 g/dL Normal [facility] Comment on above: Performed By: #### L IPID, CMP #### [facility] [address] [place] [address] Dr. Rivas Zhao Glucose [Mass/Vol] 109 mg/dL Critically high 74-106 [facility] Comment on above: Performed By: #### L IPID, CMP #### [facility] [address] [address] [address] Rivas Zhao Potassium [Moles/Vol] 3.7 mmol/L Normal 3.5-5.1 [facility] Comment on above: Performed By: #### L IPID, CMP #### [facility] [address] [address] [address] Rivas Zhao Protein [Mass/Vol] 7.7 g/dL Normal 6.4-8.2 [facility] Comment on above: Performed By: #### L IPID, CMP #### [facility] [address] [address] [address] Rivas Zhao Sodium [Moles/Vol] 140 mmol/L Normal 136-145 [facility] Comment on above: Performed By: #### L IPID, CMP #### [facility] [address] [place] [address] Dr. Rivas Zhao Urea nitrogen [Mass/Vol] 12.0 mg/dL Normal 7.0-18.0 [facility] Comment on above: Performed By: #### L IPID, CMP #### [facility] [address] [address] [address] Rivas Zhao Urea nitrogen/Creatinine [Mass ratio] 15.8 mg/mg Normal [facility] Comment on above: Performed By: #### L IPID, CMP #### [facility] [address] [place] [address] Dr. Rivas Zhao Patient Correspondenceon Patient Correspondence [id number]#1.00 CD:127 Normal [facility] Physician Referral [id number]#1.00 CD:127 Normal [facility] Patient Correspondence [id number]#1.00 CD:127 Normal [facility] Physician Referralon 022 Physician Referral [id number]#1.0 0CD:127 Normal [facility] MG MAMM DIAGNOSTIC 3D GREG CA Don 05-16-2021 MG MAMM DIAGNOSTIC 3D GREG CAD Patient: NGOZI CARDOSO. Exam Date: 05/16/2021 : 1960 Gender:F Ordering : DR FOREIGN BENJAMIN M.D. Admission #: [id number] Family : Order #: [id number] CLICK HERE TO VIEW EXAM RADIOLOGY REPORT [...] breast cancer at age 59. LOCATION: [facility] BREAST COMPOSITION: Scattered areas fibroglandular [...] M.D. on 05/16/2021 at 15:27 Normal [facility] US BREAST GREG LIMITEDon -2 US BREAST GREG LIMITED Patient: NGOZI CARDOSO Exam Date: 05/16/2021 : 1960 Gender:F Ordering : DR FOREIGN BENJAMIN M.D. Admission #: [id number] Family : Order #: [id number] CLICK HERE TO VIEW EXAM RADIOLOGY REPORT [...] breast cancer at age 59. LOCATION: [facility] BREAST COMPOSITION: Scattered areas fibroglandular [...] M.D. on 05/16/2021 at 15:27 Normal [facility] TRANSGLUTAMINASE IGAon 04-02 t-Transglutaminase (tTG) IgA <2 Normal 0-3 [facility] Comment on above: Result Comment: Nega tive 0 - 3 Weak Positive 4 - 10 Positive >10 . Tissue Transglutaminase (tTG) has been identified as the endomysial antigen. Studies have demonstr- ated that endomysial IgA antibodies have over 99% specificity for gluten sensitive enteropathy. Performed By: #### T FRANCESCA #### [facility] [address] [place] [address] Dr. Rivas Zhao CBC AUTO DIFFon 03-31-2021 BASO # 0.1 103/ul Normal 0.0-0.1 [facility] Comment on above: Performed By: #### C BC #### [facility] [address] [place] [address] Dr. Rivas Zhao Basophils/100 WBC (Bld) 0.9 % Normal 0.2-2.0 [facility] Comment on above: Performed By: #### C BC #### [facility] [address] [place] [address] Dr. Rivas Zhao EO # 0.2 103/ul Normal 0.0-0.7 [facility] Comment on above: Performed By: #### C BC #### [facility] [address] [place] [address] Dr. Rivas Zhao Eosinophils/100 WBC (Bld) 2.3 % Normal 0.9-7.0 [facility] Comment on above: Performed By: #### C BC #### [facility] [address] [place] [address] Dr. Rivas Zhao Erythrocyte distribution width (RBC) [Ratio] 14.5 % Normal 11.0-15.0 [facility] Comment on above: Performed By: #### C BC #### [facility] [address] [place] [address] Dr. Rivas Zhao Hematocrit (Bld) [Volume fraction] 39.9 % Normal 36.0-48.0 [facility] Comment on above: Performed By: #### C BC #### [facility] [address] [place] [address] Dr. Rivas Zhao Hemoglobin (Bld) [Mass/Vol] 13.1 g/dL Normal 12.0-16.0 [facility] Comment on above: Performed By: #### C BC #### [facility] [address] [place] [address] Dr. Rivas Zhao IG # 0.02 10e3/ul Normal 0.00-0.03 [facility] Comment on above: Performed By: #### C BC #### [facility] [address] [place] [address] Dr. Rivas Zhao IG % 0.3 % Normal 0.0-0.5 [facility] Comment on above: Performed By: #### C BC #### [facility] [address] [place] [address] Dr. Rivas Zhao LYMPH # 2.2 103/ul Normal 1.2-3.8 [facility] Comment on above: Performed By: #### C BC #### [facility] [address] [place] [address] Dr. Rivas Zhao Lymphocytes/100 WBC (Bld) 31.8 % Normal 20.5-60.0 [facility] Comment on above: Performed By: #### C BC #### [facility] [address] [place] [address] Dr. Rivas Zhao MANUAL DIFF REQ NO Normal [facility] Comment on above: Performed By: #### C BC #### [facility] [address] [place] [address] Dr. Rivas Zhao MCH (RBC) [Entitic mass] 30.2 pg Normal 26.7-34.0 [facility] Comment on above: Performed By: #### C BC #### [facility] [address] [place] [address] Dr. Rivas Zhao MCHC (RBC) [Mass/Vol] 32.8 g/dL Normal 29.9-35.2 [facility] Comment on above: Performed By: #### C BC #### [facility] [address] [place] [address] Dr. Rivas Zhao MCV (RBC) [Entitic vol] 91.9 fL Normal 81.0-99.0 [facility] Comment on above: Performed By: #### C BC #### [facility] [address] [place] [address] Dr. Rivas Zhao MONO # 0.5 103/ul Normal 0.3-0.8 [facility] Comment on above: Performed By: #### C BC #### [facility] [address] [address] [address] Rivas Zhao Monocytes/100 WBC (Bld) 7.2 % Normal 1.7-12.0 [facility] Comment on above: Performed By: #### C BC #### [facility] [address] [address] [address] Rivas Zhao NEUT # 4.0 103/ul Normal 1.4-6.5 [facility] Comment on above: Performed By: #### C BC #### [facility] [address] [place] [address] Dr. Rivas Zhao Neutrophils/100 WBC (Bld) 57.5 % Normal 43.0-75.0 [facility] Comment on above: Performed By: #### C BC #### [facility] [address] [place] [address] Dr. Rivas Zhao Platelet mean volume (Bld) [Entitic vol] 11.8 fL Normal 9.5-13.5 [facility] Comment on above: Performed By: #### C BC #### [facility] [address] [place] [address] Dr. Rivas Zhao PLT 139 103/ul Critically low 150-450 [facility] Comment on above: Performed By: #### C BC #### [facility] [address] [place] [address] Dr. Rivas Zhao RBC 4.34 106/ul Normal 4.20-5.40 [facility] Comment on above: Performed By: #### C BC #### [facility] [address] [place] [address] Dr. Rivas Zhao WBC 7.0 103/ul Normal 4.0-11.0 [facility] Comment on above: Performed By: #### C BC #### [facility] [address] [place] [address] Dr. Rivas Zhao LIPASEon 03-31-2021 Lipase [Catalytic activity/Vol] 197.0 U/L Normal 23.0-300.0 [facility] Comment on above: Performed By: #### C MP, LIPA #### [facility] [address] [address] [address] Rivas Zhao PROF 14(COMP METB)on 021 Albumin [Mass/Vol] 3.6 g/dL Normal 3.5-5.0 [facility] Comment on above: Performed By: #### C MP, LIPA #### [facility] [address] [address] [address] Rivas Zhao Albumin/Globulin [Mass ratio] 0.9 {ratio} Normal [facility] Comment on above: Performed By: #### C MP, LIPA #### [facility] [address] [place] [address] Dr. Rivas Zhao ALP [Catalytic activity/Vol] 46 U/L Normal 38-126 [facility] Comment on above: Performed By: #### C MP, LIPA #### [facility] [address] [place] [address] Dr. Rivas Zhao ALT [Catalytic activity/Vol] 77 U/L Critically high 9-52 [facility] Comment on above: Performed By: #### C MP, LIPA #### [facility] [address] [place] [address] Dr. Rivas Zhao Anion gap [Moles/Vol] 13.9 mmol/L Normal [facility] Comment on above: Performed By: #### C MP, LIPA #### [facility] [address] [address] [address] Rivas Zhao AST [Catalytic activity/Vol] 67 U/L Critically high 14-36 [facility] Comment on above: Performed By: #### C MP, LIPA #### [facility] [address] [address] [address] Rivas Zhao Bilirubin [Mass/Vol] 0.7 mg/dL Normal 0.2-1.3 [facility] Comment on above: Performed By: #### C MP, LIPA #### [facility] [address] [address] [address] Rivas Zhao Calcium [Mass/Vol] 9.8 mg/dL Normal 8.4-10.2 [facility] Comment on above: Performed By: #### C MP, LIPA #### [facility] [address] [place] [address] Dr. Rivas Zhao Chloride [Moles/Vol] 103 mmol/L Normal 98-107 [facility] Comment on above: Performed By: #### C MP, LIPA #### [facility] [address] [place] [address] Dr. Rivas Zhao CO2 [Moles/Vol] 31.0 mmol/L Critically high 22.0-30.0 [facility] Comment on above: Performed By: #### C MP, LIPA #### [facility] [address] [place] [address] Dr. Rivas Zhao Creatinine [Mass/Vol] 0.95 mg/dL Normal 0.52-1.04 [facility] Comment on above: Performed By: #### C MP, LIPA #### [facility] [address] [place] [address] Dr. Rivas Zhao EGFR-AF IRISH 60 mL/min/1.73m2 Normal >=60 [facility] Comment on above: Performed By: #### C MP, LIPA #### [facility] [address] [place] [address] Dr. Rivas Zhao EGFR-NON AF IRISH =60 Normal >=60 [facility] Comment on above: Performed By: #### C MP, LIPA #### [facility] [address] [place] [address] Dr. Rivas hZao Globulin (S) [Mass/Vol] 4.2 g/dL Normal [facility] Comment on above: Performed By: #### C MP, LIPA #### [facility] [address] [place] [address] Dr. Rivas Zhao Glucose [Mass/Vol] 95 mg/dL Normal 74-106 [facility] Comment on above: Performed By: #### C MP, LIPA #### [facility] [address] [place] [address] Dr. Rivas Zhao Potassium [Moles/Vol] 3.9 mmol/L Normal 3.4-5.0 [facility] Comment on above: Performed By: #### C MP, LIPA #### [facility] [address] [address] [address] Rivas Zhao Protein [Mass/Vol] 7.8 g/dL Normal 6.1-8.2 [facility] Comment on above: Performed By: #### C MP, LIPA #### [facility] [address] [address] [address] Rivas Zhao Sodium [Moles/Vol] 144 mmol/L Normal 137-145 [facility] Comment on above: Performed By: #### C MP, LIPA #### [facility] [address] [address] [address] Rivas Zhao Urea nitrogen [Mass/Vol] 20.0 mg/dL Critically high 7.0-17.0 [facility] Comment on above: Performed By: #### C LASHANDA, LIPA #### [facility] [address] [place] [address] Dr. Rivas Zhao Urea nitrogen/Creatinine [Mass ratio] 21.1 mg/mg Normal [facility] Comment on above: Performed By: #### C MP, LIPA #### [facility] [address] [place] [address] Dr. Rivas Zhao XR ribs RT min 3V w CXR1V*on 06-09-2020 XR ribs RT min 3V w CXR1V* [facility] [place] [address] XRay Report Signed Patient: Ngozi Cardoso MR#: [id number] : 1960 Acct:[id number] Age/Sex: 59 / F ADM Date: 06/09/20 Loc: XDUCLY Room: Type: [facility] Attending Dr: Janene Munguia APRN, TRIMMING INSPECTOR-C Ordering Provider: Janene Munguia APRN Date of Service: 06/09/20 XR/XR ribs RT min 3V w CXR1V*: Rib pain on right side Copies to: Janene Munguia INSTITUTIONAL RESEARCH DIRECTOR Chest and right ribs 06/09/2020. CLINICAL DATA: [...] Garcia Jr., M.D.06/09/2020 11:19 AM Dictation Location: [place] [address] Transcribed By: [facility] 06/09/20 1119 Dictated By: Que Garcia Jr, MD 06/09/20 1112 Signed By: 06/09/20 1119 Normal [facility] Vital Signs Date Time Vital Sign Value Performing Clinician Facility 12-16-2023 11:290400 Body height 165.1 cm [facility] 12-16-2023 11:29-0400 Body mass index (BMI) [Ratio] 55 kg/m2 [facility] 12-16-2023 11:29-0400 Body weight 150.13 kg [facility] 12-16-2023 11:29-0400 Diastolic blood pressure 60 mm[Hg] [facility] 12-16-2023 11:29-0400 Heart rate 69 /min [facility] 12-16-2023 11:29-0400 Systolic blood pressure 86 mm[Hg] [facility] 10-14-2023 09:39-0400 Body height 165.1 cm [facility] 10-14-2023 09:39-0400 Body mass index (BMI) [Ratio] 54.6 kg/m2 [facility] 10-14-2023 09:39-0400 Body temperature 98.4 [degF] [facility] 10-14-2023 09:39-0400 Body weight 148.89 kg [facility] 10-14-2023 09:39-0400 Diastolic blood pressure 76 mm[Hg] [facility] 10-14-2023 09:39-0400 Heart rate 71 /min [facility] 10-14-2023 09:39-0400 Respiratory rate 18 /min [facility] 10-14-2023 09:39-0400 SaO2% (BldA) [Mass fraction] 97 % [facility] 10-14-2023 09:39-0400 Systolic blood pressure 114 mm[Hg] [facility] 08-12-2023 11:04-0400 Body height 165.1 cm [facility] 08-12-2023 11:04-0400 Body mass index (BMI) [Ratio] 55.2 kg/m2 [facility] 08-12-2023 11:04-0400 Body weight 150.59 kg [facility] 08-12-2023 11:04-0400 Diastolic blood pressure 67 mm[Hg] [facility] 08-12-2023 11:04-0400 Heart rate 67 /min [facility] 08-12-2023 11:04-0400 Systolic blood pressure 104 mm[Hg] [facility] 06-21-2023 15:41-0500 Body height 165.1 cm [facility] 06-21-2023 15:41-0500 Body mass index (BMI) [Ratio] 54.1 kg/m2 [facility] 06-21-2023 15:41-0500 Body weight 147.64 kg [facility] 06-21-2023 15:41-0500 Diastolic blood pressure 60 mm[Hg] [facility] 06-21-2023 15:41-0500 Heart rate 67 /min [facility] 06-21-2023 15:41-0500 SaO2% (BldA) [Mass fraction] 97 % [facility] 06-21-2023 15:41-0500 Systolic blood pressure 108 mm[Hg] [facility] 05-14-2023 09:30-0500 Body height 165.1 cm [facility] 05-14-2023 09:30-0500 Body mass index (BMI) [Ratio] 57.24 kg/m2 [facility] 05-14-2023 09:30-0500 Body weight 156.04 kg [facility] Other [facility] 05-14-2023 09:30-0500 Diastolic blood pressure 69 mm[Hg] [facility] Other [facility] 05-14-2023 09:30-0500 SaO2% (BldA) [Mass fraction] 97 % [facility] Other [facility] 05-14-2023 09:30-0500 Systolic blood pressure 105 mm[Hg] [facility] Other [facility] 03-05-2023 16:00-0500 Body height 165.1 cm Etta Gordon Other [facility] Other 03-05-2023 16:00-0500 Body mass index (BMI) [Ratio] 60.27 kg/m2 Etta Gordon Other [facility] Other 03-05-2023 16:00-0500 Body temperature 98.9 [degF] Etta Gordon Other [facility] Other 03-05-2023 16:00-0500 Body weight 164.29 kg Etta Gordon Other [facility] Other 03-05-2023 16:00-0500 Diastolic blood pressure 77 mm[Hg] Etta Gordon Other [facility] Other 03-05-2023 16:00-0500 Respiratory rate 18 /min Etta Gordon Other [facility] Other 03-05-2023 16:00-0500 SaO2% (BldA) [Mass fraction] 95 % Etta Gordon Other [facility] Other 03-05-2023 16:00-0500 Systolic blood pressure 125 mm[Hg] Etta Gordon Other [facility] Other Encounters Encounter Date Encounter Type Care Provider Facility Start: 12-16-2023 End: 12-16-2023 ambulatory [facility] Work Phone: Start: 12-16-2023 End: 12-16-2023 [facility] Work Phone: Start: 12-08-2023 ambulatory [facility] Start: 12-01-2023 End: 12-01-2023 ambulatory [facility] Start: 11-01-2023 ambulatory [facility] Start: 10-28-2023 ambulatory [facility] Start: 10-28-2023 End: 10-28-2023 ambulatory [facility] Start: 10-19-2023 Non-patient / Non-visit [facility] Work Phone: Start: 10-14-2023 End: 10-14-2023 ambulatory [facility] Work Phone: Start: 10-14-2023 End: 10-14-2023 Patient encounter procedure [facility] Work Phone: Start: 10-12-2023 ambulatory [facility] Start: 10-05-2023 End: 10-05-2023 ambulatory [facility] Start: 09-24-2023 ambulatory [facility] Start: 08-28-2023 Non-patient / Non-visit [facility] Work Phone: Start: 08-22-2023 Patient encounter status [facility] Start: 08-12-2023 End: 08-12-2023 Encounter for general adult medical examination without abnormal findings [facility] Start: 08-12-2023 End: 08-12-2023 Patient encounter procedure [facility] Work Phone: Start: 08-12-2023 End: 08-12-2023 ambulatory BENY LANG [facility] Work Phone: Start: 07-12-2023 End: 07-12-2023 ambulatory [facility] Start: 07-09-2023 Non-patient / Non-visit [facility] Work Phone: Start: 06-30-2023 End: 06-30-2023 ambulatory [facility] Start: 06-21-2023 End: 06-21-2023 Patient encounter procedure [facility] Work Phone: Start: 06-18-2023 End: 06-18-[address] [facility] Start: 06-08-2023 End: 06-08-2023 ambulatory [facility] Start: 05-31-2023 End: 05-31-2023 ambulatory Etta Gordon Other [facility] Other Start: 05-31-2023 Telephone encounter Etta Gordon [facility] Start: 05-21-2023 End: 05-21-2023 ambulatory [facility] Other [facility] Other Start: 05-21-2023 Telephone encounter [facility] Start: 05-18-2023 Patient encounter procedure [facility] Start: 05-17-2023 End: 05-17-2023 ambulatory JOAB JOHNATHON [facility] Start: 05-14-2023 End: 05-14-2023 ambulatory [facility] Other [facility] Other Start: 05-14-2023 Office outpatient vi sit 25 minutes [facility] Start: 05-06-2023 Evaluation and management of inpatient [facility] Start: 05-05-2023 Evaluation and management of inpatient [facility] Start: 05-05-2023 End: 05-11-2023 Evaluation and management of inpatient [facility] Start: 04-30-2023 End: 04-30-2023 ambulatory [facility] Other [facility] Other Start: 04-30-2023 Telephone encounter [facility] Start: 04-01-2023 End: 04-01-2023 ambulatory [facility] Other [facility] Other Start: 04-01-2023 Telephone encounter [facility] Start: 03-05-2023 End: 03-05-2023 ambulatory Etta Gordon Other [facility] Other Start: 03-05-2023 Office outpatient vi sit 25 minutes Etta Gordon [facility] Start: 02-26-2022 Encounter for genera l adult medical examination without abnormal findings DR FOREIGN BENJAMIN [facility] Start: 02-21-2022 End: 02-22-[address] FOREIGN BENJAMIN Facility:[facility] Start: 02-21-2022 End: 02-22-2022 Encounter for general adult medical examination without abnormal findings DR FOREIGN BENJAMIN Facility:[facility] Start: 01-20-2022 Adult health examination Etta Gordon Other [place] [employer] Other Start: 05-16-2021 End: 05-17-[address] [...] Gordon Other Start: 12-03-2014 Screening mammography A giannapretty Gordon Other Start: 06-05-2013 History and physical examination, administrative Etta Gordon Other Start: 01-20-2013 Preoperative cardiov ascular examination Etta Gordon Other Laboratory test resu lt abnormal Etta Gordon Other Screening for malign ant neoplasm of breast Etta Gordon Other Plan of Treatment Date Care Activity Detail Author MG Breast - bilateral Screening [facility] XR Lumbar spine 2 or 3 Views [facility] Payers Date Payer Category Payer Unknown [id number] [id number] 1960 Unknown [id number] 1960 Unknown [id number] [id number] [id number] 1960 Unknown [id number] 1960 Unknown [id number] 1958 Unknown [id number] Self-pay Self Pay [id number] Social History Date Type Detail Facility Unknown if ever smoked [facility] Other Sex Assigned At Sex Assigned At Bir th [facility] Other Start: 07-07-2018 End: 10-14-2023 Tobacco smoking status NHIS Never smoked tobacco (finding) [facility] Start: 1960 Sex Assigned At Female F [facility] Medical Equipment Procedure Code Equipment Code [...] Type Note Facility 12-01-2023 Note Cardiovascular Medic ine [facility] SUBJECTIVE Chief Complaint Patient presents with Atrial [...] diabetes obstructive sleep apnea was admitted to [facility] with shortness of breath and [...] Status post total right knee replacement Thrombocytopenia ([facility]/HCC) RAVI (obstructive sleep apnea) Overactive bladder Screening mammogram for breast cancer Type 2 diabetes mellitus with hyperglycemia ([facility]) PONV (postoperative nausea and vomiting) Past Medical History: Diagnosis Date Abnormal ECG Acute kidney injury (CMS/HCC) Arrhythmia Atrial fibrillation (CMS/HCC) Atrial fibrillation (CMS/HCC) CHF (congestive heart failure) (CMS/HCC) Diabetes mellitus (CMS/HCC) DVT (deep venous thrombosis) (CMS/HCC) Hypertension Obesity BMI 55/58 PONV (postoperative nausea and vomiting) Sleep apnea Thrombocytopenia ([facility]/HCC) Family History Problem Relation Name Age [...] Take 1 tab (more content not included)... [facility] 12-01-2023 Note Follow up from afib ablation. Review of Systems Neurological: Positive for light-headedness. 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 Esophagus was mapped using the [employer] 3D mapping software and noted to be [...] around each individual (more content not included)... [facility] 10-28-2023 Note Airway Date/Time: 10/28/2023 12:24 PM Urgency: elective Airway not difficult General Information and Staff Patient location during procedure: OR Anesthesiologist: Hermila Meek MD Resident/HEALTHCARE EDUCATOR/CAA: Aurora Moore MD Performed: resident/HEALTHCARE EDUCATOR/CAA Indications and Patient Condition Indications for airway [...] 1 Number of other approaches attempted: 0 [facility] 10-28-2023 Note Patient: Ngozi parker Procedure Information Date/Time: 10/28/23 1230 Procedure: Ablation a-fib paroxysmal Location: [facility] WIRE TURNING MACHINE OPERATOR 1 EP / [facility] HV VASCULAR [facility] (Cath) Providers: Jose Luis Cronin [...] Value Ventricular Rate 69 Atrial Rate 69 OR Interval 256 QRS DURATION 186 QT Interval 490 QTC CALCULATION(BAZETT) 525 P [place] 29 R-[place] -52 T Wave [place] 91 Impression Sinus rhythm with 1st degree A-V block with Premature supraventricular complexes Left axis deviation Left bundle branch block Abnormal ECG When compared with ECG of 12-JUL-2023 07:55, Premature supraventricular complexes are now Present OR interval has increased Right heart catheterization 05/07/23: [...] Plan discussed with attending. Additional Equipment Requests [facility] 10-05-2023 Note [place] Electrophysiology Consult Note Reason for visit: Afib [...] diabetes obstructive sleep apnea was admitted to [facility] with shortness of breath and [...] Intimate Partner Violence: Not At Risk (05/05/2023) [place] Safety & Environment Fear of Current or [...] Year: No Utilities: Not At Risk (05/05/2023) [facility] Utilities Threatened with loss of utilities: [...] other systems revie (more content not included)... [facility] 08-12-2023 Note Cardiovascular Medic [facility] SUBJECTIVE Chief Complaint Patient presents [...] diabetes obstructive sleep apnea was admitted to [facility] with shortness of breath and [...] Rate and Rhythm: (more content not included)... [facility] 08-12-2023 Note Patient here for fol low [...] All other systems reviewed and are negative. [facility] 07-12-2023 Note ATRIAL FLUTTER ABLAT ION & [...] diabetes obstructive sleep apnea was admitted to [facility] with shortness of breath and [...] clot. CS os was mapped using the [employer] 3D mapping software. Using ICE, the His [...] the sternum on the left using the [employer] tool. The loop recorder was then injected subcutaneously and noted to have good sensing parameters. Technical details of the device as noted below. The skin was then closed with 3-0 absorbable monofilament sut (more content not included)... [facility] 07-12-2023 Note Patient: Ngozi parker Procedure Information Date/Time: 07/12/23 0830 Procedures: Ablation atrial flutter Loop insertion Location: [facility] WIRE TURNING MACHINE OPERATOR 1 EP / [facility] VASCULAR LAB (Cath) Providers: Jose Luis Croinn MD Clinical information reviewed: Allergies Meds OB Status Physical Exam Airway Mallampati: II TM distance: >3 FB Neck ROM: full Cardiovascular Dental Pulmonary Abdominal Anesthesia Plan ASA 2 CSE Anesthetic plan and risks discussed with patient. Use of blood products discussed with patient who. Additional Equipment Requests [facility] 06-30-2023 Note CHF stable with out exacerbation Continue GDMT as prescribed [facility] 06-30-2023 Note BP in office perfect 128/72, but with midodrine 5 mg tid she has exaggerated supine hypertension at home after review of b/p log, therefore recommended pt to take midodrine as needed - hold for SBP> 120, and can also cut tab in 1/2 to = 2.5 mg And she voiced understanding. [facility] 06-30-2023 Note [id number]= 4 Continue eliquis anticoagulation, amiodarone for rhythm control and coreg for rate control [facility] 06-30-2023 Note Patient here c/o hyp ertension. [...] All other systems reviewed and are negative. [facility] 06-30-2023 Note [facility] CARDIOLOGY PROGR ESS NOTE [...] 20 18 14 (more content not included)... [facility] 06-18-2023 Note HTN currently well c ontrolled, also labile 90/57 and may have been Contributing to symptoms this week. Will add midodrine 5 mg tid to regime to prevent hypotension, lightheadedness/dizziness or syncope. [facility] 06-18-2023 Note NYHC II- currently w ithout exacerbation Continue GDMT- ASA, coreg, farxiga, losartan, entresot and aldatone Diuretic therapy- bumex 1 mg daily Monitor daily weights, I&O, fluid restriction 1.5-2L/day, renal function and electrolytes [facility] 06-18-2023 Note Continue amiodarone 200 mg daily, and coreg 6.25 mg bid. Will add midodrine 5 mg tid to regime for noted hypotension and symptoms of lightheadedness/dizziness and near syncope. Continue eliquis anticoaogulation- denied any bleeding tendencies [facility] 06-18-2023 Note [facility]TP CARDIOLOGY PROGR ESS NOTE [...] diabetes obstructive sleep apnea was admitted to [facility] with shortness of breath and [...] Musculoskeletal: General: N (more content not included)... [facility] 06-18-2023 Note Patient here c/o epi sode [...] All other systems reviewed and are negative. [facility] 06-08-2023 Note [place] Electrophysiology Consult Note Reason for visit: Afib HPI: Ngozi Cardoso is a 62 y.o. year old with past medical history of hypertension diabetes obstructive sleep apnea was admitted to [facility] with shortness of breath and [...] file (05/05/2023) Utilities: Not At Risk (05/05/2023) [facility] Utilities Threatened with loss of utilities: [...] Arteries: bilateral no (more content not included)... [facility] 05-17-2023 Note [facility] Cardiology Clinic Note Chief Complaint: Patient here for follow up [facility]. Had cath on 05/07/2023. Denies chest [...] PSYCH: appropriate mood, affect, and judgement. INVESTIGATIONS: Echocardiogram-[facility] Name: NGOZI CARDOSO Study Date: 05/06/2023 08:24 AM B/P: 131 mmHg/56 mmHg HR: 80 bpm Date of : 1960 Location: [facility] Height: 65 in. Age: 62 year(s) [...] 2, moderate diastolic (more content not included)... [facility] 05-14-2023 Evaluation note Encounter Date Diagnosis Assessment [...] forms for supplies and faxed back to [place]. Pt states she will restart and become compliant w CPAP treatment. [employer] Other 01-23-2024 NotePt provided with discharge education and instructions. Heart failure folder reviewed in detail and filled out. Medications delivered and at bedside. All questions answered. Pt wheeled to main entrance, father there for transport. [facility]01-23-2024 NoteCardiology Progress Note Subjective F/U Acute systolic heart failure Patient up in chair. Denies SOB, cp, palpitations. Reports pedal edema significantly improved. Tele - currently NSR, with some episodes a.fib overnight per [facility] Objective Patient Vitals for the [...] Value Ventricular Rate 81 Atrial Rate 81 OR Interval 208 QRS DURATION 178 QT Interval 442 QTC CALCULATION(BAZETT) 513 P [place] 34 R-[place] -48 T Wave [place] 101 Impression Normal sinus rhythm Left axis [...] internal jugular vein was obtained. A 6 Cymro 11 cm sheath was inserted without difficulty. [...] left radial artery was obtained. A 6 Cymro glide sheath was inserted without difficulty. Difficulty [...] outline, coronary spasm was (more content not included)...[facility]-23-2024 NoteHospital Medicine Discharge Summary Final Discharge Diagnosis: Atrial fibrillation with RVR- [id number] score 4 Atrial flutter New onset of congestive heart failure/heart failure -ejection fraction, 40% TTE 05/06/23 NYHA class II Hypokalemia/Hypomagnesemia Essential hypertension DMII noninsulin dependent Thrombocytopenia Osteoarthritis Obstructive sleep apnea with non compliance to CPAP Obese class 3 Admission Diagnosis: Acute systolic heart failure (CMS/[facility]) [I50.21] Hospital course: History of Present Illness Ngozi Cardoso is an 62 y.o. female admitted from [facility] as a direct admit. She has history of hypertension diabetes obstructive sleep apnea not using CPAP or BiPAP he was admitted at [facility] with chief complaint of sudden onset of shortness of breath. According to patient she wake up in the morning 2 days back very short of breath denies any chest pain heart palpitation dizziness syncope weakness no increased cough or expectoration and no fever chills cough drops with the family to [place] with she was noted to be [...] Telemetry strips and EKG were reviewed from [facility]. Strip labeled as V. tach [...] obstructive sleep apnea who was admitted to [facility] with sudden onset shortness of breath found to have new onset heart failure and atrial fibrillation. Acute heart failure with mid range ejection fraction, 40% TTE 05/06/23 NYHA class II Atrial fibrillation/flutter, [id number] 4 (female-1, heart failure-1, diabetes mellitus-1, Hypertension-1) [...] 1:00 PM Regina Stark MD ELAINE Lyle [facility] 06/08/2023 2:40 PM Jose Luis Cronin MD ELAINE Singh Your medication list START taking these medications Instructions Last Dose Given Next Dose Due amiodarone 400 mg tablet Commonly known as: Pacerone Take 1 tablet (400 mg) by mouth (more content not included)...[facility]01-23-2024 NoteNutrition Screening Assessment: Patient Name: Ngozi Cardoso [...] with questions and contact the dietitian via [facility] chat 8A-4P Wednesday-Wednesday. Or call the dietitian's office at extension [phone]. For weekends/holidays, the dietitian's can be reached by paging [phone] from 9A-3P. Unable to be reached via [employer] on Wednesday & .)[facility]01-22-2024 NoteHospital Medicine Daily Progress Note - 05/10/2023 12:14 PM; Room: [address] [place] [address] Admission: 05/05/2023 7:10 PM; Length of stay: 5 days THE HOSPITALIST TEAM PREFERS TO USE [employer] FOR COMMUNICATION 7AM-7PM. IF I DO NOT RESPOND WITHIN 15 MINUTES, PLEASE PAGE ME/CALL THROUGH THE LINOLEUM INSTALLER. FROM 7PM-7AM, PLEASE PAGE [phone](COVR) Code Status: Full Code Barriers to Discharge: [...] Assessment and Plan Atrial fibrillation with RVR- [id number] score 4 - resumed eliquis - amio [...] mmol/L 33* 31 34* BUN mg/dL 18 18 CREATININE mg/dL 0.80 0.90 0.90 GLUCOSE [...] FREET4 1.08 05/06/2023 No results found for: [id number] , IRON , TIBC , C3 , [...] cardiovascular factor modificati (more content not included)... [facility]01-22-2024 NotePt admitted to hospital for acute on chronic systolic HF, hx of HTN, DM, RAVI w/o CPAP compliance. Pt's echo from 05/06/23 estimated LVEF 40%, which does not qualify pt for cardiac rehab (CR) therapy with HF diagnosis per CMS eligibility criteria. I will watch for updates and follow up with pt, if appropriate. NICHELLE RosalesN piano instructor Outpatient Coordinator Cardiopulmonary [facility]hab[facility] Note Cardiology Progress Note Subjective F/U Acute [...] Value Ventricular Rate 81 Atrial Rate 81 OR Interval 208 QRS DURATION 178 QT Interval 442 QTC CALCULATION(BAZETT) 513 P [place] 34 R-[place] -48 T Wave [place] 101 Impression Normal sinus rhythm Left axis [...] internal jugular vein was obtained. A 6 Cymro 11 cm sheath was inserted without difficulty. [...] left radial artery was obtained. A 6 Cymro glide sheath was inserted without difficulty. Difficulty advancing the De La Vega wire was encountered; therefore this was removed. Angiography was performed via the JR catheter. T (more content not included)...[facility]01-21-2024 NoteHospital Medicine Daily Progress Note - 05/09/2023 12:26 PM; Room: [address] [place] [address] Admission: 05/05/2023 7:10 PM; Length of stay: 4 days THE HOSPITALIST TEAM PREFERS TO USE [employer] CHAT FOR COMMUNICATION 7AM-7PM. IF I DO NOT RESPOND WITHIN 15 MINUTES, PLEASE PAGE ME/CALL THROUGH THE LINOLEUM INSTALLER. FROM 7PM-7AM, PLEASE PAGE [phone](COVR) Code Status: Full Code Barriers to Discharge: [...] Assessment and Plan Atrial fibrillation with RVR- [id number]-[id number] score 4 - currently on metoprolol - [...] FREET4 1.08 05/06/2023 No results found for: [id number] , IRON , TIBC , C3 , [...] for heart failure with (more content not included)...[facility]01-21-2024 Note Attestation signed by Adenike Serrano MD [...] Value Ventricular Rate 81 Atrial Rate 81 OR Interval 208 QRS DURATION 178 QT Interval 442 QTC CALCULATION(BAZETT) 513 P [place] 34 R-[place] -48 T Wave [place] 101 Impression Normal sinus rhythm Left axis deviation Left bundle branch block Abnormal ECG When compared with ECG of 13-FEB-2013 09:22, No significant change was found Confirmed by Jose Luis Cronin ([id number]) on 05/05/2023 9:15:31 PM Lab Results Component Value Date TROPONINI 0.01 05/06/2023 Complete Echo (TTE) w/wo Imaging Agent, Strain, 3D, Bubble Study Result Date: 05/06/2023 1 1 [facility] Heart Station [address] [place] [address] [phone] (fax) Echocardiogram-[facility] Name: NGOZI CARDOSO Study Date: 05/06/2023 08:24 AM B/P: 131 mmHg/56 mmHg HR: 80 bpm Date of : 1960 Location: [facility] Height: 65 in. Age: 62 year(s) [...] 2.4 cm?? Findings Left (more content not included)...[facility]01-20-2024 Note Attestation signed by Adenike Serrano MD [...] Value Ventricular Rate 81 Atrial Rate 81 OR Interval 208 QRS DURATION 178 QT Interval 442 QTC CALCULATION(BAZETT) 513 P [place] 34 R-[place] -48 T Wave [place] 101 Impression Normal sinus rhythm Left axis deviation Left bundle branch block Abnormal ECG When compared with ECG of 13-FEB-2013 09:22, No significant change was found Confirmed by Jose Luis Cronin ([id number]) on 05/05/2023 9:15:31 PM Lab Results Component Value Date TROPONINI 0.01 05/06/2023 Complete Echo (TTE) w/wo Imaging Agent, Strain, 3D, Bubble Study Result Date: 05/06/2023 1 1 [facility] Heart Station [address] [place] [address] [phone] (fax) Echocardiogram-[facility] Name: NGOZI CARDOSO Study Date: 05/06/2023 08:24 AM B/P: 131 mmHg/56 mmHg HR: 80 bpm Date of : 1960 Location: [facility] Height: 65 in. Age: 62 year(s) [...] cm Mitral Valv (more content not included)... [facility]01-20-2024 NoteHospital Medicine Daily Progress Note - 05/08/2023 8:40 AM; Room: [address] [place] [address] Admission: 05/05/2023 7:10 PM; Length of stay: 3 days THE HOSPITALIST TEAM PREFERS TO USE [employer] FOR COMMUNICATION 7AM-7PM. IF I DO NOT RESPOND WITHIN 15 MINUTES, PLEASE PAGE ME/CALL THROUGH THE LINOLEUM INSTALLER. FROM 7PM-7AM, PLEASE PAGE [phone](COVR) Code Status: Full Code Barriers to Discharge: [...] Assessment and Plan Atrial fibrillation with RVR- [id number]-MGFc score 4 - currently on metoprolol - [...] FREET4 1.08 05/06/2023 No results found for: [id number] , IRON , TIBC , C3 , [...] midrange ejection fraction (H (more content not included)...[facility] 05-07-2023 NoteCardiovascular Laboratory Report FINAL IMPRESSIONS: Vasospasm [...] internal jugular vein was obtained. A 6 Cymro 11 cm sheath was inserted without difficulty. [...] left radial artery was obtained. A 6 Cymro glide sheath was inserted without difficulty. Difficulty [...] outline, coronary spasm was suspected. A 6 Cymro JR4 guide catheter was advanced in over [...] [facility] Note Patient: Ngozi Cardoso Procedure Information Date/Time: 05/07/23 1700 Procedures: Coronary angiography Right heart cath Location: [facility] WIRE TURNING MACHINE OPERATOR 3 / [facility] VASCULAR [facility] (Cath) Providers: Regina Stark [...] Additional Equipment Requests Regina Stark MD, MPH, [facility], [facility], [facility] Interventional Cardiology Pager Email: [email or web address] NoteCardiology [...] Value Ventricular Rate 81 Atrial Rate 81 OR Interval 208 QRS DURATION 178 QT Interval 442 QTC CALCULATION(BAZETT) 513 P [place] 34 R-[place] -48 T Wave [place] 101 Impression Normal sinus rhythm Left axis deviation Left bundle branch block Abnormal ECG When compared with ECG of 13-FEB-2013 09:22, No significant change was found Confirmed by Jose Luis Cronin ([id number]) on 05/05/2023 9:15:31 PM Lab Results Component Value Date TROPONINI 0.01 05/06/2023 Complete Echo (TTE) w/wo Imaging Agent, Strain, 3D, Bubble Study Result Date: 05/06/2023 1 1 [facility] Heart Station [address] [place] [address] [phone] (fax) Echocardiogram-[facility] Name: NGOZI CARDOSO Study Date: 05/06/2023 08:24 AM B/P: 131 mmHg/56 mmHg HR: 80 bpm Date of : 1960 Location: [facility] Height: 65 in. Age: 62 year(s) [...] (pseudonormalized LV filling patte (more content not included)...[facility] 05-07-2023 NoteHospital Medicine Daily Progress Note - 05/07/2023 7:58 AM; Room: [address] [place] [address] Admission: 05/05/2023 7:10 PM; Length of stay: 2 days THE HOSPITALIST TEAM PREFERS TO USE [employer] CHAT FOR COMMUNICATION 7AM-7PM. IF I DO NOT RESPOND WITHIN 15 MINUTES, PLEASE PAGE ME/CALL THROUGH THE LINOLEUM INSTALLER. FROM 7PM-7AM, PLEASE PAGE [phone](COVR) Code Status: No Order Barriers to Discharge: [...] 62 year-old female who is transferred from [facility] with chief complaint of sudden onset of shortness of breath and was found to been atrial fibrillation with RVR that was treated with Cardizem drip, further workup with echocardiogram shows ejection fraction of 40%. transferred to [facility] for further cardiac evaluation. Assessment: Atrial fibrillation with RVR- [id number] score 4 New onset of congestive heart [...] 05/06/2023 FREET4 1.08 05/06/19 (more content not included)...[facility]-18-2024 NoteHospital Medicine Daily Progress Note - 05/06/2023 9:19 AM; Room: [address] [place] [address] Admission: 05/05/2023 7:10 PM; Length of stay: 1 days THE HOSPITALIST TEAM PREFERS TO USE [employer] CHAT FOR COMMUNICATION 7AM-7PM. IF I DO NOT RESPOND WITHIN 15 MINUTES, PLEASE PAGE ME/CALL THROUGH THE LINOLEUM INSTALLER. FROM 7PM-7AM, PLEASE PAGE [phone](COVR) Code Status: No Order Barriers to Discharge: [...] 62 year-old female who is transferred from [facility] with chief complaint of sudden onset of shortness of breath and was found to been atrial fibrillation with RVR that was treated with Cardizem drip, further workup with echocardiogram shows ejection fraction of 40%. transferred to [facility] for further cardiac evaluation. Assessment: Atrial fibrillation with RVR- WVO3OW0-MROw score 3 New onset of congestive heart [...] FREET4 1.08 05/06/2023 No results found for: [id number] , IRON , TIBC , C3 , C4 , ILSA , CANCA , ASO , P (more content not included)...[facility] 05-05-2023 NoteHospital Medicine History and Physical 05/05/2023 9:20 PM THE HOSPITALIST TEAM PREFERS TO USE [employer] CHAT FOR COMMUNICATION 7AM-7PM. IF I DO NOT RESPOND WITHIN 15 MINUTES, PLEASE PAGE ME/CALL THROUGH THE LINOLEUM INSTALLER. FROM 7PM-7AM, PLEASE PAGE [phone](COVR) Chief Complaint No chief complaint on file. History of Present Illness Ngozi Cardoso is an 62 y.o. female admitted from [facility] as a direct admit. She has history of hypertension diabetes obstructive sleep apnea not using CPAP or BiPAP he was admitted at [facility] with chief complaint of sudden onset of shortness of breath. According to patient she wake up in the morning 2 days back very short of breath denies any chest pain heart palpitation dizziness syncope weakness no increased cough or expectoration and no fever chills cough drops with the family to [place] with she was noted to be [...] we will retrieve copy of echo from [facility] follow-up with cardiology New onset congestive heart failure/HFrEF CHF core measures in place metoprolol Cozaar diuretics and add Farxiga serial electrolytes creatinine reduced ejection fraction would need left heart cath to rule out ischemic heart disease Hypertension blood pressure control as above suspect underlying obstructive sleep apnea discussed with patient about follow-up with her P (more content not included)...[facility]-17-2023 Evaluation note* Encounter Date Diagnosis Assessment Notes [...] treatment plan. Patient left in stable condition [employer] Other [id number] Evaluation note* Diagnosis Onset Date Resolution Status Essential (primary) hypertension October 22, 2020 acute Paroxysmal atrial fibrillation acute Screening mammogram for breast cancer acute Type 2 diabetes mellitus with hyperglycemia acute [facility] Work Phone: Evaluation noteNo [employer] Other Evaluation note* Diagnosis Onset Date Resolution Status Paroxysmal atrial fibrillation acute Screening mammogram for breast cancer acute Type 2 diabetes mellitus with hyperglycemia acute Wellness examination acute [facility] Work Phone: Evaluation note* Diagnosis Onset Date Resolution Status Pain in left foot noneactive Lumbar back pain acute [facility] Work Phone: History general Narrative - Reported* [...] knee arthroplasty 05/07 Hospitalization History see above [employer] Other Summary Purpose Family History No Family [...] 2 diabetes mellitus with hyperglycemia Wellness examination Chief Complaint Left foot pain back pain Reason for Visit Pain in left foot Lumbar back pain Additional Source Comments INFORMATION SOURCE (unrecogn ized section and content) DATE CREATED AUTHOR 08/28/2018 [facility] DATE CREATED AUTHOR AUTHOR'S ORGANIZ ATION 05/07/2021 [facility] DATE CREATED AUTHOR AUTHOR'S ORGANIZ ATION 09/19/2021 [facility] DATE CREATED AUTHOR AUTHOR'S ORGANIZ ATION 02/27/2022 [facility] DATE CREATED AUTHOR AUTHOR'S ORGANIZ ATION 01/13/2024 [facility] REASON FOR VISIT (unrecogniz ed section [...] Active Start: July 09, 2023 Team Status: Active Member Role Status Dates Foreign Benjamin MD Primary Care Provider Active Start: October 19, 2023 Jose Luis Cronin MD Attending Provider Active Start : October 19, 2023 Team Status: Inactive Member Role Status Dates Foreign Benjamin MD Primary Care Provide r, Attending Provider Active Start: December 16, 2023 End: December 16, 2023 Goals (unrecognized section and content) Goals [...] BE BASED ON THE PRIMARY CLINICAL RECORDS. [facility]. provides no warranty or guarantee of the accuracy or completeness of information in this document.
--- NOTE | 2024-01-25 11:12 | US_ITS ---
[facility] [place] [id number] Patient Name: FERN CARDOSO MRN: [id number] date: 1960 Sex: F Assigned Patient Location: [place] Current Patient Location: [place] Accession/Order Number: [id number] Exam Date: 01/25/2024 11:13 Report Date: 01/25/2024 12:29 At the request of: FOREIGN BENJAMIN Procedure: US venous doppler LE RT EXAMINATION: US venous doppler LE RT HISTORY: Swelling Of Right Lower Extremity M79.89 COMPARISON: No relevant comparison available. FINDINGS: REGION: Right lower extremity THROMBI: None. COMPRESSIBILITY: Normal compressibility. FLOW: Normal waveform and antegrade flow between 5 and 20 cm/s. OTHER: None. US/US venous doppler LE RT IMPRESSION: 1. No deep vein thrombus within the right lower extremity 2. subcutaneous edema and skin thickening corresponding to patient's area of redness. Electronically authenticated by: TARA GOMEZ Date: 01/25/2024 12:29
== END 2024-01-25 11:01 | disposition home or self-care (01) ==
LOC: US 11:04
PROVIDERS: PCP Family Medicine; Visit Provider Family Medicine
DX: M79.89 Other specified soft tissue disorders (principal)
CPT/HCPCS: 93971

== ENCOUNTER 2025-01-04 12:58 | Outpatient (OUT) | payer OTHER, SELFPAY ==
--- NOTE | 2025-01-04 13:00 | CA_ITS ---
Patient Name: FERN CARDOSO MR#: [id number] : 1960 Exam Date: 01/04/2025 Ordering Doctor: BENY LANG CNP ECHOCARDIOGRAM REPORT PROCEDURE: CA ECHO DOPPLER COMPLETE INDICATIONS: Atrial fibrillation - ablation, heart failure with improved ejection fraction COMPARISON: None. DESCRIPTION: COMPLETE ECHOCARDIOGRAM Real-time transthoracic echocardiography with 2D, M-mode, spectral and color flow Doppler performed. QUALITY: Technical quality was good. LEFT VENTRICLE: Normal chamber size. Moderate concentric left ventricular hypertrophy. The septum is abnormal in motion likely due to bundle branch block. LV EF: Lower limits of normal left ventricular ejection fraction, (50-55%). DIASTOLIC: ATRIAL SEPTUM: LEFT ATRIUM: Moderate dilatation. RIGHT ATRIUM: Mild dilatation. RIGHT VENTRICLE: Normal chamber size. Normal right ventricular systolic function. TRICUSPID VALVE: Normal mobility and thickness. No stenosis with trivial regurgitation. Unable to assess right-sided pressure due to the lack of measurable tricuspid regurgitation. MITRAL VALVE: Mildly thickened with normal mobility. No evidence of mitral valve stenosis. Mild mitral annular calcification. No mitral regurgitation. AORTIC VALVE: Normal trileaflet appearance. Mildly calcified aortic valve. Normal leaflet mobility. No evidence of aortic valve stenosis. No aortic regurgitation. AORTIC ROOT: Normal diameter and appearance, measuring 3.2 cm. Ascending aorta is normal in size, measuring 3.1 cm. PULMONIC VALVE: Not well visualized. No stenosis. No regurgitation. PERICARDIUM: No evidence of pericardial effusion. IVC: Not well visualized. PLEURA: CONCLUSION: 1. Moderate concentric left ventricular hypertrophy with low normal systolic function. LVEF is estimated at 50 to 55%. 2. Normal right ventricular size and systolic function. 3. Mild to moderate biatrial dilatation. 4. No significant valvular dysfunction. 5. Unable to assess right-sided pressures due to lack of measurable tricuspid regurgitation. Adult Echocardiography Procedure Report Left Ventricle LVEDD (3.7 - 5.6 cm): 4.41 cm LVESD (2.2 - 4.0 cm): 2.63 cm LVIVS thickness (0.6 - 1.2 cm): 1.40 cm LVPW thickness (0.5 - 1.0 cm): 1.38 cm e': 0.07 m/s E - e': 7.36 LVOT Max Gradient: 3.10 mm[Hg] LVOT Area (cm2): 0.88 m/s Peak Velocity (LVOT): 0.88 m/s Mean Velocity (LVOT): 0.62 m/s LVOT Diameter 2.50 cm Left Ventricular Ejection Fraction: 50-55 % Left Atrium LA Volume Index (2D A2C): 44.06 ml/m2 Left Atrium Systolic Dimension: 4.66 cm Mitral Valve MV E to A Ratio: 0.71 Mitral Valve A-Wave Peak Velocity: 0.76 m/s Mitral Valve E-Wave Peak Velocity: 0.54 m/s Right Ventricle Aorta AO Root Diam: 3.25 cm Ascending Ao Diam: 3.08 cm Aortic Valve AoV Area (Peak Dimas): 2.62 cm2, 2.62 cm2 AoV Area (VTI): 3.24 cm2, 3.24 cm2 Peak Velocity(Antegrade Flow): 1.65 m/s Peak Gradient(Antegrade Flow): 10.93 mm[Hg] Mean Velocity(Antegrade Flow): 1.14 m/s Mean Gradient(Antegrade Flow): 5.92 mm[Hg] Velocity Time Integral: 29.43 cm Tricuspid Valve Pulmonic Valve Peak Velocity: 0.96 m/s Peak Gradient: 3.68 mm[Hg], 3.68 mm[Hg] Right Atrium Right Atrium Systolic Pressure: 50.76 ml, 50.76 ml Dictated by: Alonzo Babin M.D. on 01/04/2025 at 21:07 Approved by: Alonzo Babin M.D. on 01/04/2025 at 21:10
--- OUTSIDE RECORDS SUMMARY | 2025-01-04 13:00 | XMS_ITS | Clinical Summary ---
Author Organization [facility] Address [id number] [address] [place] [address] Care Team Providers Care Hotel Or Motel Cleaning Supervisor Name Role Phone Unavailable Primary Care Provider Unavailabl e Encounters Date Type Department Care Team Description 11/09/2024 Travel from Last 3 Months Social History Tobacco Use Types Packs/Day Years Used Date Smoking Tobacco: Never Assessed Comments Unknown Sex and Gender Information Value Date Recorded Sex Assigned at Not on file Legal Sex Female 3:08 PM EDT Gender Identity Not on file Sexual Orientation Not on file Plan of Treatment Health Maintenance Due Date Last Done Comments Depression Screening 1973 Tobacco Screening 1973 Adult BMI Screening 07/25/1979 DTaP,Tdap and Td Vaccines (1 - Tdap) 1980 Pap Smear 1982 Zoster (Shingles) Vaccine (2 of 2) 04/19/2023 02/22/2023 COVID-19 Vaccine (4 - 2024-2 6 season) 2024 04/21/2021, 08/02/2020, 07/05/2020 Influenza Vaccine 12/18/2024 03/08/2024, , 02/04/2022, Additional history exists Medical Devices Not on file Insurance [employer]
--- OUTSIDE RECORDS SUMMARY | 2025-01-04 13:00 | XMS_ITS | Clinical Summary ---
Author Organization [facility] Address [address] [place] [address] Phone Care Team Providers Care Carroting Machine Offbearer Name Role Phone Sindi Tierney MD Primary Care Provider [phone] Social History Tobacco Use Types Packs/Day Years Used Date Smoking Tobacco: Never Assessed Comments Unknown Sex and Gender Information Value Date Recorded Sex Assigned at Not on file Legal Sex Female 10:35 AM EST Gender Identity Not on file Sexual Orientation Not on file Plan of Treatment Not on file Care Teams Carroting Machine Offbearer Relationship Specialty Start Date End Date Sindi Tierney MD [address] [place] [address] [place] [address] PCP - General 08/18/18
--- OUTSIDE RECORDS SUMMARY | 2025-01-04 13:00 | XMS_ITS | Encounter Summary ---
Author Organization [facility] Address [address] [place] [address] Care Team Providers Care Bilingual Nanny Name Role Phone Unavailable Primary Care Provider Unavailabl e Encounter Details Date Type Department Care Team (Late st Contact Info) Description 08/21/2024 Orders Only [facility] [address] [place] [id number] Kimberly Oneal, SHANNAN [address] [place] [address] Social History Tobacco Use Types Packs/Day Years Used Date Smoking Tobacco: Never Assessed Comments Unknown Sex and Gender Information Value Date Recorded Sex Assigned at Female 09/30/2024 9:28 AM EDT Legal Sex Female 6:45 PM EDT Gender Identity Female 09/30/2024 9:28 AM EDT Sexual Orientation Straight 09/30/2024 9: 28 AM EDT documented as of this encounter Plan of Treatment Upcoming Encounters Date Type Department Care Team (Late st Contact Info) Description 03/08/2025 10:30 AM EST Office Visit [facility] [address] [facility] [address] [place] [address] Esequiel Reno DPM [address] [facility] [address] [place] [address] documented as of this encounter Visit Diagnoses Not on filedocumented in this encounter
--- OUTSIDE RECORDS SUMMARY | 2025-01-04 13:00 | XMS_ITS | Clinical Summary ---
Author Organization [facility] Address [address] [facility] [place] [address] Care Team Providers Care Clinical Nutrition Manager Name Role Phone Unavailable Primary Care Provider Unavailabl e Medications dapagliflozin (Farxiga) 10 MG Take 10 mg by mouth 4 Active spironolactone (Aldactone) 25 MG tablet Take 25 mg by mouth Daily Active losartan (Cozaar) 25 MG tablet Take 25 mg by mouth Daily Active bumetanide (Bumex) 1 MG tablet Take 1 mg by mouth in the morning. Active apixaban (Eliquis) 5 MG tablet Take 5 mg by mouth in the morning and 5 mg in the evening. 4 Active carvedilol (Coreg) 6.25 MG tablet TAKE 1 TABLET BY MOUTH TWICE DAILY (WITH BREAKFAST AND WITH EVENING MEAL) Active magnesium oxide (Mag-Ox) 400 (240 Mg) MG tablet Take 400 mg by mouth in the morning and 400 mg before bedtime. 5 Active metFORMIN XR (Glucophage-XR) 500 MG 24 hr tablet Take 500 mg by mouth at bedtime Active Active Problems No known active problems Encounters Date Type Department Care Team Description 12/14/2024 10:50 AM EDT Office Visit [facility] [address] [place] [phone] Esequiel Reno DPM Hallux rigidus of left foot (Primary Dx); Hallux rigidus of right foot; Diabetes mellitus due to underlying condition with diabetic polyneuropathy, unspecified whether long term care phlebotomist insulin use (HCC); Pain due to onychomycosis of toenails of both feet; Venous insufficiency 12/14/2024 Bamboo flowsheet [facility] [address] [facility] [address] [place] [address] Esequiel Reno DPM 12/14/2024 Travel 12/13/2024 Travel 12/05/2024 12:30 PM EDT Evaluation [facility] [address] [facility] [address] [place] [address] Johanna Aaron, PT Cervicalgia (Primary Dx) 12/05/2024 Plan of Care Documentation [facility] [address] [facility] [address] [place] [address] 12/05/2024 Bamboo flowsheet [facility] [address] [facility] [address] [place] [address] Johanna Aaron, HOLLIE 12/05/2024 Travel 11/28/2024 Travel 10/05/2024 10:20 AM EDT Office Visit [facility] [address] [facility] [address] [place] [address] Esequiel Reno DPM Hallux rigidus of left foot (Primary Dx); Hallux rigidus of right foot; Diabetes mellitus due to underlying condition with diabetic polyneuropathy, unspecified whether longterm insulin use (HCC); Pain due to onychomycosis of toenails of both feet; Venous insufficiency 10/05/2024 Bamboo flowsheet [facility] [address] [facility] [address] [place] [address] Esequiel Reno DPM 10/05/2024 Travel from Last 3 Months Family History Medical History Relation Name Comments Diabetes Maternal Grandfather Onel Diabetes Maternal Grandmother Onel Cancer Mother Lila Diabetes Mother Lila Diabetes Mother's Brother Azael bravo Cancer Mother's Sister Shawna Relation Name Status Comments Maternal Grandfather Onel Alive Maternal Grandmother Onel Alive Mother Lila Alive Mother's Brother Azael bravo Alive Mother's Sister Shawna Alive Social History Tobacco Use Types Packs/Day Years Used Date Smoking Tobacco: Never Smokeless Tobacco: Never Tobacco Cessation:Counseling Given: Yes Alcohol Use Standard Drinks/Week Comments Never 0 (1 standard drink = 0.6 oz pur e alcohol) Comments Unknown Sex and Gender Information Value Date Recorded Sex Assigned at Female 09/30/2024 9:28 AM EDT Legal Sex Female 6:45 PM EDT Gender Identity Female 09/30/2024 9:28 AM EDT Sexual Orientation Straight 09/30/2024 9: 28 AM EDT Last Filed Vital Signs Vital Sign Reading Time Taken Comments Blood Pressure 174/105 05/23/2018 12:00 PM EST Pulse - - Temperature - - Respiratory Rate 18 12/14/2024 10:49 AM EDT Oxygen Saturation - - Inhaled Oxygen Concentration - - Weight 158 kg (348 lb) 12/14/2024 10:49 AM EDT Height 165.1 cm (5' 5 ) 12/14/2024 10:49 AM EDT Body Mass Index 57.91 12/14/2024 10:49 AM EDT Plan of Treatment Upcoming Encounters Date Type Department Care Team ([facility] st Contact Info) Description 03/08/2025 10:30 AM EST Office Visit [facility] [address] [facility] [address] [place] [address] Esequiel Reno, DPEma [address] [facility] [address] [place] [address] Health Maintenance Due Date Last Done Comments CT Colonography 1961 Colonoscopy 1961 Colorectal Cancer Screening 1961 FIT-DNA 1961 FIT 1961 FOBT 1961 Sigmoidoscopy 1961 Pap Smear 1982 Cervical Cancer Screening 07/25/1991 HPV/Cotest 07/25/1991 Mammogram 2001 Influenza Vaccine (#1) 2024 4, 02/22/2023, 02/04/2022, Additional history exists Insurance ([address] [address] [employer]
--- OUTSIDE RECORDS SUMMARY | 2025-01-04 13:03 | XMS_ITS | CCD ---
Author Organization [facility] Care Team Providers Care Pulp Cooker Name Role Phone Hans Whiteside Attending Unavailable Sindi Benjamin Primary Care Unavaila ble BENJAMIN, DR SINDI Torres Consulting Unavailable BENJAMIN, DR SINDI Torres Primary Care Unavailable BENJAMIN, DR SINDI Torres Admitting Unavailable BENJAMIN, DR SINDI Torres Attending Unavailable BENJAMIN, DR SINDI Torres Primary Care Unavailable BENJAMIN, DR SINDI Torres Admitting Unavailable BEJNAMIN, DR SINDI Torres Attending Unavailable BENJAMIN, DR SINDI Torres Consulting Unavailable BENJAMIN, DR SINDI Torres Primary Care Unavailable BENJAMIN, DR SINDI Torres Admitting Unavailable Zieber, DR Layton Consulting Unavailable BENJAMIN, DR SINDI Torres Attending Unavailable BENJAMIN, DR SINDI Torres Consulting Unavailable Etta Gordon Unavailable Benjamin, Sindi Unavailable Unavailable Primary Care Provider UnavailJOSE LUIS Kiser Referring Unavailable MILTON, JOSE LUIS Referring Unavailable MILTON, JOSE LUIS Referring Unavailable MILTON, JOSE LUIS Referring Unavailable MILTON, JOSE LUIS Referring Unavailable MILTON, JOSE LUIS Referring Unavailable MILTON, JOSE LUIS Referring Unavailable MILTON, JOSE LUIS Referring Unavailable MILTON, JOSE LUIS Referring Unavailable MILTON, JOSE LUIS Referring Unavailable MILTON, JOS ELUIS Referring Unavailable MILTON, JOSE LUIS Referring Unavailable BENY COOK Attending Unavailable BENY COOK Attending Unavailable JAG MAGALLANES Attending Unavailable IMLTON, JOSE LUIS Referring Unavailable ESEQUIEL RENO Attending Unavailable ARIC AARON Attending Unavailable ROSA GAMING Referring Unavailable ESEQUIEL RENO Attending Unavailable Thomas WOOD, Rosa Referring Unavailable Thomas WOOD, Rosa Primary Care Unavailable Rafael Pickard MD Attending Unavailable Allergies Allergy Classification Reported Allergen(s) Allergy Type Date of Onset Reaction(s) Facility (7 sources) Penicillins; Translations: [PENICILLINS] Drug allergy (disorder) 02-07-20 13 [facility] Repository (11 sources) Ciprofloxacin Drug Allergy 08-12-19 Comment:nausea and diarrhea [facility] (11 sources) Penicillin G Drug Allergy 08-12-19 24 [facility] (12 sources) traMADol; Translations: [TRAMADOL] Drug Allergy 06-25-19 16 Unknown, [facility] (6 sources) Substance with penicillin structure and antibacterial mechanism of action (substance) Drug allergy 12-23-19 13 Unknown [facility] Other (6 sources) patient allergy list reviewed by nurse or physicia Propensity to adverse reactions 11-11-19 19 Comment:Done [facility] Other (6 sources) TraMADol & Dietary Manage Prod *ANALGESICS - OPIOI Propensity to adverse reactions 06-25-19 16 Unknown [facility] Other (6 sources) Allergies Reconciled Propensity to adverse reactions Unknown [facility] Other (1 source) diphenhydrAMINE; Translations: [DIPHENHYDRAMINE] Drug Allergy 10-28-19 [facility] Repository Medications Current Medications Medication Drug Class(es) Dates Sig (Normalized) Sig (Original) apixaban 5 mg oral tablet (15 sources) Factor Xa Inhibitor Start: 06-18-2023 End: 12-15-2024 take 1 tablet by mouth in the morning apixaban (Eliquis) 5 MG tablet Take 5 mg by mouth in the morning and 5 mg in the evening. 12/21/2023 12/15/2024 Active take 1 tablet by mouth twice ruth ly Apixaban 5 MG 1 tablet Orally Twice a day Active aspirin 81 mg delayed release oral tablet (10 sources) Platelet Aggregation Inhibitor, Nonsteroidal Anti-inflammatory Drug [...] Active -Hx Entry for 0 *Reorder from [facility] for eRx and Interaction Alerts* Feb, Active [...] Jan, Active bumetanide 1 mg oral tablet (20 sources) Loop Diuretic Start: 06-18-2023 End: 08-12-2023 take 1 mg by mouth once daily Bumetanide Active 1 MG PO Daily August 12, 2023 12:00am carvedilol 6.25 mg oral tablet (15 sources) alpha-Adrenergic Kayli, beta-Adrenergic Kayli Start: 06-18-2023 take 6.25 mg by mouth twice daily Carvedilol Active 6.25 MG PO Twice daily June 18, 2023 1:00am dapagliflozin 10 mg oral tablet (15 sources) Sodium-Glucose Cotransporter 2 Inhibitor Start: 06-18-2023 End: 12-20-2024 dapagliflozin (Farxiga) 10 MG Take 10 mg by mouth 12/21/2023 12/20/2024 Active take 1 tablet by mouth once alvarez y Dapagliflozin Propanediol 10 MG 1 tablet Orally Once a day Active doxycycline hyclate 100 mg oral tablet (1 source) Tetracycline-class Drug Start: 02-01-2024 take 100 mg by mouth twice daily Doxycycline Hyclate Active 100 MG PO Twice daily February 01, 2024 12:00am losartan potassium 25 mg oral tablet (11 sources) Angiotensin 2 Receptor Kayli Start: 10-14-2023 take 25 mg by mouth once daily Losartan Active 25 MG PO Daily October 14, 2023 12:00am magnesium oxide 400 mg oral tablet (15 sources) Start: 09-14-2024 take 1 tablet by mouth in the morning magnesium oxide (Mag-Ox) 400 (240 Mg) MG tablet Take 400 mg by mouth in the morning and 400 mg before bedtime. 09/14/2024 Active Start: 06-18-2023 take 400 mg by mouth once alvarez y Magnesium Oxide Active 400 MG PO Daily June 18, 2023 1:00am take 1 tablet by dayday th every twenty-four hours Magnesium Oxide 400 MG 1 tablet as needed Orally Once a day Active metoprolol tartrate 50 mg oral tablet (19 sources) beta-Adrenergic Kayli Start: 09-02-2021 take 1 tablet by mouth once daily Metoprolol Succinate ER 50MG Metoprolol Succinate ER 50MG, 1 (one) Tablet Tablet daily # 0, 09/02/2021, No Refill. Active Oral daily for 0 *Pick strength-form from [employer] for eRX* August, Active Start: 07-14-2018 End: [...] Feb, Active spironolactone 25 mg oral tablet (15 sources) Aldosterone Antagonist Start: 024 take 25 mg by mouth once daily Spironolactone Active 25 MG PO Daily June 18, 2023 1:00am sulfamethoxazole 800 mg / trimethoprim 160 mg [...] Sig (Original) acetaminophen 325 mg oral tablet (5 sources) Start: 07-14-2018 End: 06-18-2023 take 650 mg by mouth every four hours Acetaminophen Discontinued 650 MG PO Q4H 0 July 14, 2018 12:00am June 18, 2023 3:36pm amiodarone hydrochloride 400 mg oral tablet (12 sources) Antiarrhythmic Start: 10-14-2023 End: 02-14-2024 take 200 mg by mouth once daily Amiodarone Discontinued 200 MG PO Daily October 14, 2023 9:42am February 14, 2024 10:08am Start: 06-18-2023 End: 10-14-2023 take 400 mg by mouth once daily Amiodarone Discontinue d 400 MG PO Daily June 18, 2023 1:00am October 14, 2023 9:42am take 1 tablet by dayday th every twenty-four hours Amiodarone HCl 400 MG 1 tablet Orally Once a day Active amitriptyline hydrochloride 25 mg oral tablet (6 sources) Tricyclic Antidepressant Start: 09-17-2021 Amitriptyline HCl 25 MG Amitriptyline HCl 25MG, 1 (one) Tablet Tablet at bedtime # 30, 09/17/2021, No Refill. Active Oral at bedtime for 0 *Pick strength-form from [employer] for eRX* Sep, Not-Taking/PRN take 1 tablet [...] day(s) Not-Taking cephalexin 500 mg oral capsule (5 sources) Cephalosporin Antibacterial Start: 01-24-2024 End: 02-01-2024 take 500 mg by mouth three times daily Cephalexin Discontinued 500 MG PO Three times daily 06 11January 24, 2024 12:00am February 01, 2024 4:25pm Start: 09-26-2021 take 1 capsule by mo [facility] every eight hours Cephalexin 500 MG 1 capsule Orally three times a day for 10 day(s) Sep, Not-Taking/PRN diclofenac sodium 75 mg delayed release oral tablet (19 sources) Nonsteroidal Anti-inflammatory Drug Start: 06-18-2023 End: 10-14-2023 take 75 mg by mouth twice daily Diclofenac Sodium Discontinued 75 MG PO Twice daily June 18, 2023 1:00am October 14, 2023 9:42am Start: 11-27-2021 take 1 tablet by dayday twice daily Diclofenac Sodium 75MG Diclofenac Sodium 75MG, 1 Tablet Tablet twice a day # 0, 11/27/2021, No Refill. Active Oral twice a day for 0 *Pick strength-form from [employer] for eRX* Nov, Active Start: 06-22-2018 End: [...] Not-Taking/PRN docusate sodium 100 mg oral capsule (5 sources) Start: 07-14-2018 End: 06-18-2023 take 100 mg by mouth twice daily Docusate Sodium Discontinued 100 MG PO Twice daily 60 30 July 14, 2018 12:00am June 18, 2023 3:38pm 0.4 ml enoxaparin sodium 100 mg/ml prefilled syringe (5 sources) Low Molecular Weight Heparin Start: 07-06-2018 End: 07-14-2018 Enoxaparin (Lovenox) 40 mg/0.4 mL Syringe Discontinued 40 MG SUBCUT Every 12 hours at 1000 & 2200 July 06, 2018 12:00am July 14, 2018 12:23pm hydrOXYzine pamoate 50 mg oral capsule (10 sources) Antihistamine Start: 07-06-2018 End: 07-14-2018 take [...] hydrochloride 500 mg extended release oral tablet (20 sources) Biguanide Start: 06-18-2023 End: 12-07-2023 take [...] oral every evening for 0 *Reorder from [employer] for eRx and Interaction Alerts* Feb, Active take 1 tablet by dayday th every twenty-four hours at bedtime metFORMIN XR (Glucophage-XR) 500 MG 24 hr tablet Take 500 mg by mouth at bedtime Active take 1 tablet by dayday th once daily in the evening metFORMIN HCl ER 500 MG TAKE 1 TABLET BY MOUTH EVERY EVENING for 90 Active metFORMIN HCl No t-Taking/PRN metFORMIN HCl No t-Taking methylPREDNISolone 4 mg oral tablet (5 sources) Corticosteroid Start: 12-16-2023 End: 01-24-2024 take 1 tablet by mouth once Methylprednisolone (Medrol (Eric)) 4 mg tablets,dose pack Discontinued 0 PO per package directions December 28, 2023 2:58pm January 24, 2024 10:03am PO PER PKG DIR for 6 days midodrine hydrochloride 5 mg oral tablet (5 sources) alpha-Adrenergic Agonist Start: 06-21-2023 End: 08-12-2023 take 1 dose by mouth once daily at bedtime Midodrine Discontinued 5 MG PO Three times daily June 21, 2023 1:00am August 12, 2023 11:11am do not give last dose of day after 6PM or within 4 hrs of bedtime Multivitamin (Multiple Vitamins) Tablet (5 sources) Start: 06-22-2018 End: 07-14-2018 take 1 tablet by mouth once daily Multivitamin (Multiple Vitamins) Tablet Discontinued 1 TAB PO Daily June 22, 2018 1:00am July 14, 2018 12:27pm Multivitamin With Folic Acid (Thera) 400 mcg Tablet (5 sources) Start: 07-14-2018 End: 06-18-2023 take 1 tablet by mouth once daily Multivitamin With Folic Acid (Thera) 400 mcg Tablet Discontinued 1 TAB PO Daily July 14, 2018 12:00am June 18, 2023 3:38pm oxyCODONE hydrochloride 5 mg oral tablet (20 sources) Opioid Agonist Start: 07-14-2018 End: 06-18-2023 [...] mg / valsartan 26 mg oral tablet (8 sources) Angiotensin 2 Receptor Kayli Start: 06-18-2023 [...] mg vitamin b12 1 mg oral tablet (13 sources) Vitamin B12 Start: 06-22-2018 End: 06-18-2023 take 1000 ug by mouth once daily Cyanocobalamin (Vitamin B-12) Discontinued 1000 MCG PO Daily July 14, 2018 12:00am June 18, 2023 3:38pm Vitamin B 12 Act estela Problems Active Problems Problem Classification Problem Date Documented Da te Episodic/Chronic Acquired foot deformities (4 sources) Toe joint rigid; Translations: [Hallux rigidus, left foot] 10-05-2024 Chronic Acquired foot deformities (4 sources) Toe joint rigid; Translations: [Hallux rigidus, right foot] 10-05-2024 Chronic Acute and unspecified renal failure (5 sources) Acute renal failure syndrome; Translations: [Acute kidney failure, unspecified] 03-31-2023 Episodic Acute bronchitis (12 sources) Acute bronchitis; Translations: [Acute bronchitis due to other specified organisms] Episodic Administrative/social admission (5 sources) Other reduced mobility; Translations: [Impaired mobility and activities of daily living] 03-31-2023 Episodic Cardiac dysrhythmias (20 sources) Premature beats; Translations: [Other premature beats] Onset: 8 Chronic Chronic obstructive pulmonary disease and bronchiectasis (6 sources) Bronchitis; Translations: [Bronchitis, not specified as acute or chronic] Episodic Coagulation and hemorrhagic disorders (11 sources) Immune thrombocytopenic purpura; Translations: [Immune thrombocytopenic purpura] 03-31-2023 Chronic Conduction disorders (7 sources) Left bundle-branch block, unspecified; Translations: [Left bundle branch block] Onset: 9 Chronic Congestive heart failure; nonhypertensive (8 sources) Congestive heart failure; Translations: [Heart failure, unspecified] Onset: 4 Chronic Deficiency and other anemia (11 sources) Anemia; Translations: [Anemia, unspecified] Onset: 9 03-31-2023 Episodic Diabetes mellitus with complications (17 sources) Hyperglycemia due to type 2 diabetes mellitus; Translations: [Type 2 diabetes mellitus with hyperglycemia] 06-18-2023 Chronic Diabetes mellitus without complication (6 sources) Impaired fasting glycemia; Translations: [Impaired fasting glucose] Episodic Essential hypertension (20 sources) Essential hypertension; Translations: [Essential (primary) hypertension] Onset: Chronic Fluid and electrolyte disorders (5 sources) Hypokalemia; Translations: [Hypokalemia] 03-31-2023 Episodic Genitourinary symptoms and ill-defined conditions (6 sources) Finding of frequency of urination; Translations: [Frequency of micturition] Episodic Hypertension with complications and secondary hypertension (2 sources) Hypertensive heart disease with heart failure; Translations: [Hypertensive heart disease with heart failure] Onset: 4 Chronic Mycoses (4 sources) Pain in toe; Translations: [Tinea unguium] 10-05-2024 Episodic Osteoarthritis (20 sources) Osteoarthritis; Translations: [Unspecified osteoarthritis, unspecified site] Onset: 7 Chronic Other circulatory disease (2 sources) Presence of other cardiac implants and grafts; Translations: [Presence of other cardiac implants and grafts] Onset: 4 Chronic Other circulatory disease (6 sources) Elevated blood-pressure reading without diagnosis of hypertension; Translations: [Elevated blood-pressure reading, without diagnosis of hypertension] Episodic Other circulatory disease (2 sources) Personal history of other diseases of the circulatory system; Translations: [Personal history of other diseases of the circulatory system] Onset: 5 Episodic Other connective tissue disease (11 sources) History of total knee arthroplasty; Translations: [Presence of right artificial knee joint] 03-31-2023 Chronic Other connective tissue disease (6 sources) Pain in limb; Translations: [Pain in right finger(s)] Episodic Other connective tissue disease (1 source) Pain in left foot; Translations: [Pain in limb] 10-14-2023 Episodic Other connective tissue disease (2 sources) Swelling of right lower limb; Translations: [Other specified soft tissue disorders] 01-24-2024 Episodic Other connective tissue disease (2 sources) Other specified soft tissue disorders; Translations: [Swelling of limb] 01-24-2024 Episodic Other diseases of bladder and urethra (11 sources) Overactive bladder; Translations: [Overactive bladder] Onset: 3 06-18-2023 Chronic Other diseases of veins and lymphatics (4 sources) Vascular insufficiency; Translations: [Venous insufficiency (chronic) (peripheral)] 10-05-2024 Episodic Other gastrointestinal disorders (6 sources) Irritable bowel syndrome with diarrhea; Translations: [Irritable bowel syndrome with diarrhea] Chronic Other gastrointestinal disorders (6 sources) Diarrhea; Translations: [Diarrhea, unspecified] Episodic Other nervous system disorders (5 sources) Postoperative pain ; Translations: [Other acute postprocedural pain] 03-31-2023 Episodic Other nutritional; endocrine; and metabolic disorders (6 sources) Morbid obesity; Translations: [Morbid (severe) obesity due to excess calories] Onset: 5 Chronic Other nutritional; endocrine; and metabolic disorders (17 sources) Body mass index 40+ - severely obese; Translations: [Body mass index (BMI) 60.0-69.9, adult] 03-31-2023 Chronic Other screening for suspected conditions (not mental disorders or infectious disease) (18 sources) Abnormal electrocardiogram [ECG] [EKG]; Translations: [Other abnormal and inconclusive findings on diagnostic imaging of breast] Onset: 9 Episodic Other upper respiratory disease (6 sources) Seasonal allergic rhinitis; Translations: [Other seasonal allergic rhinitis] Onset: 7 Chronic Other upper respiratory disease (6 sources) Allergic rhinitis; Translations: [Allergic rhinitis, unspecified] Chronic Other upper respiratory infections (6 sources) Sinusitis; Translations: [Chronic sinusitis, unspecified] Chronic Citlaly-; endo-; and myocarditis; cardiomyopathy (except that caused by tuberculosis or sexually transmitted disease) (2 sources) Cardiomyopathy in diseases classified elsewhere; Translations: [Cardiomyopathy in diseases classified elsewhere] Onset: 4 Chronic Phlebitis; thrombophlebitis and thromboembolism (5 sources) H/O: Deep vein thrombosis; Translations: [Personal history of other venous thrombosis and embolism] 07-06-2018 Episodic Residual codes; unclassified (14 sources) Obstructive sleep apnea syndrome; Translations: [Obstructive sleep apnea (adult) (pediatric)] Onset: 4 06-18-2023 Chronic Residual codes; unclassified (1 source) Obstructive sleep apnea (adult) (pediatric) Chronic Residual codes; unclassified (6 sources) Family history of diabetes mellitus; Translations: [Family history of diabetes mellitus] Episodic Residual codes; unclassified (6 sources) Localized edema; Translations: [Localized edema] Episodic Residual codes; unclassified (2 sources) Other specified postprocedural states; Translations: [Other specified postprocedural states] Onset: 5 Episodic Skin and subcutaneous tissue infections (12 sources) Localized infection of skin AND/OR subcutaneous tissue; Translations: [Unspecified local infection of skin and subcutaneous tissue] Onset: 6 Episodic Spondylosis; intervertebral disc disorders; other back problems (13 sources) Low back pain; Translations: [Lumbago] Onset: 5 12-16-2023 Episodic Unclassified (3 sources) Other ventricular tachycardia; Translations: [Other ventricular tachycardia] Past or Other Problems Problem Classification Problem Date Documented Da te Episodic/Chronic Cardiac dysrhythmias (2 sources) Palpitations; Translations: [Palpitations] Onset: 05-05-2024 Episodic Nonspecific chest pain (6 sources) Chest [...] and (suspected) exposure to covid-19 Z20.822 Unclassified (5 sources) Lack of stamina; Translations: [Impaired endurance] 03-31-2023 Viral infection (1 source) COVID-19 Results Test Name Value Interpretation Reference Range Facility Orders Onlyon 12-02-2024 Orders Only [id number] Fern Cardoso 1960 F Date Provider Department Center 12/02/2024 AZIZA WALTON [facility] Family History Problem Relation Age of Onset Heart attack Mother Stroke Mother Atrial fibrillation Father Heart attack Brother Stroke Brother Family Status - Relation Status Age at Mother Father Brother Normal [facility] Office Visiton 11-29-2024 Follow-up visit [id number] Fern Cardoso A 1960 F Date Provider Department Center 11/29/2024 BENY LAZAR [facility] Family History Problem Relation Age of Onset Heart attack Mother Stroke Mother Atrial fibrillation Father Heart attack Brother Stroke Brother Family Status - Relation Status Age at Mother Father Brother Level of Service:[id number] [place] OFFICE/OUTPATIENT ESTABLISHED MOD MDM 30 MIN Reason for Visit and Comments: Congestive Heart Failure [127] Atrial Fibrillation [80] Hypertension [664639] Normal [facility] Orders Onlyon 10-28-2024 Orders Only [id number] CardosoLastFern A 1960 F Date Provider Department Center 10/28/2024 JOSE LUIS [facility] C[facility] Family History Problem Relation Age of Onset Heart attack Mother Stroke Mother Atrial fibrillation Father Heart attack Brother Stroke Brother Family Status - Relation Status Age at Mother Father Brother Normal [facility] Office Visiton 06-09-2024 Follow-up visit [id number] Cardoso,Fern A 1960 F Date Provider Department Center 06/09/2024 [id number] CROFT C[facility] Family History Problem Relation Age of Onset Heart attack Mother Stroke Mother Atrial fibrillation Father Heart attack Brother Stroke Brother Family Status - Relation Status Age at Mother Father Brother Level of Service:[id number] [place] OFFICE/OUTPATIENT ESTABLISHED LOW MDM 20 MIN Normal [facility] Orders Onlyon 06-09-2024 Orders Only [id number] Fern Cardoso A 1960 F Date Provider Department Center 06/09/2024 [id number] CROFT [facility] C[facility] Family History Problem Relation Age of Onset Heart attack Mother Stroke Mother Atrial fibrillation Father Heart attack Brother Stroke Brother Family Status - Relation Status Age at Mother Father Brother Normal [facility] Orders Onlyon 05-15-2024 Orders Only [id number] Last Cardosola A 1960 F Date Provider Department Center 05/15/2024 NICOLAS JEFFREY CARD [facility] Family History Problem Relation Age of Onset Heart attack Mother Stroke Mother Atrial fibrillation Father Heart attack Brother Stroke Brother Family Status - Relation Status Age at Mother Father Brother Normal [facility] Office Visiton 01-26-2024 Follow-up visit [id number] Fern Cardoso 1960 F Date Provider Department Center 01/26/2024 Ori-BENY COOK ELAINE [facility] Family History Problem Relation Age of Onset Heart attack Mother Stroke Mother Atrial fibrillation Father Heart attack Brother Stroke Brother Family Status - Relation Status Age at Mother Father Brother Level of Service:[id number] [place] OFFICE/OUTPATIENT ESTABLISHED MOD MDM 30 MIN Reason for Visit and Comments: Atrial Fibrillation [80] Normal [facility] Basophils Auto (Bld) [#/Vol] on 10-19-2023 Basophils (Bld) [#/Vol] 0.0 10 3/uL 0.0-0.1 [facility] Basophils/100 WBC Auto (Bld) on 10-19-2023 Basophils/100 WBC (Bld) 1.0 % 0.2-2.0 [facility] Eosinophils/100 WBC Auto (Bl d)on 10-19-2023 Eosinophils/100 WBC (Bld) 3.6 % 0.9-7.0 [facility] Erythrocyte distribution wid th Auto (RBC) [Ratio]on 10-19-2023 Erythrocyte distribution width (RBC) [Ratio] 13.6 % 11.0-15.0 [facility] Estimated glomerular filtrat ion rate (GFR) non- Americanon 10-19-2023 GFR/1.73 sq M.predicted among non-blacks MDRD (S/P/Bld) [Vol rate/Area] 41 mL/min/{1.73_m2} Low >=60 [facility] Hematocrit Auto (Bld) [Volum e fraction]on 10-19-2023 Hematocrit (Bld) [Volume fraction] 36.4 % 36.0-48.0 [facility] Hemoglobin [Mass/volume] in Bloodon 10-19-2023 Hemoglobin (Bld) [Mass/Vol] 11.5 g/dL Low 12.0-16.0 [facility] Laboratory - Chemistry and C hemistry - challengeon 10-19-2023 Calcium [Mass/Vol] 8.5 mg/dL 8.5-10.1 [facility] Chloride [Moles/Vol] 102 mmol/L 98-107 [facility] CO2 [Moles/Vol] 31.2 mmol/L 21.0-32.0 [facility] Creatinine [Mass/Vol] 1.31 mg/dL High 0.55-1.02 [facility] GFR/1.73 sq M.predicted MDRD (S/P/Bld) [Vol rate/Area] 50 mL/min/{1.73_m2} Low >=60 [facility] Glucose [Mass/Vol] 148 mg/dL High 74-106 [facility] Potassium [Moles/Vol] 3.8 mmol/L 3.5-5.1 [facility] Sodium [Moles/Vol] 142 mmol/L 136-145 [facility] Urea nitrogen [Mass/Vol] 22.0 mg/dL High 7.0-18.0 [facility] Urea nitrogen/Creatinine [Mass ratio] 16.8 mg/mg [facility] Laboratory - Hematology and Cell countson 10-19-2023 Immature granulocytes/100 WBC (Bld) 0.3 % 0.0-0.5 [facility] Leukocytes [#/volume] correc renato for nucleated erythrocytes in Blood by Automated counon 10-19-2023 WBC corrected for nucl RBC Auto (Bld) [#/Vol] 3.9 10 3/uL Low 4.0-11.0 [facility] Lymphocytes Auto (Bld) [#/Vo l]on 10-19-2023 Lymphocytes (Bld) [#/Vol] 1.0 10 3/uL Low 1.2-3.8 [facility] Lymphocytes/100 WBC Auto (Bl d)on 10-19-2023 Lymphocytes/100 WBC (Bld) 26.3 % 20.5-60.0 [facility] MCH Auto (RBC) [Entitic mass ]on 10-19-2023 MCH (RBC) [Entitic mass] 28.3 pg 26.7-34.0 [facility] MCHC Auto (RBC) [Mass/Vol]on 10-19-2023 MCHC (RBC) [Mass/Vol] 31.6 g/dL 29.9-35.2 [facility] MCV Auto (RBC) [Entitic vol] on 10-19-2023 MCV (RBC) [Entitic vol] 89.4 fL 81.0-99.0 [facility] Monocytes Auto (Bld) [#/Vol] on 10-19-2023 Monocytes (Bld) [#/Vol] 0.3 10 3/uL 0.3-0.8 [facility] Monocytes/100 WBC Auto (Bld) on 10-19-2023 Monocytes/100 WBC (Bld) 6.4 % 1.7-12.0 [facility] Neutrophils Auto (Bld) [#/Vo l]on 10-19-2023 Neutrophils (Bld) [#/Vol] 2.4 10 3/uL 1.4-6.5 [facility] Neutrophils/100 WBC Auto (Bl d)on 10-19-2023 Neutrophils/100 WBC (Bld) 62.4 % 43.0-75.0 [facility] No Panel Informationon 10-18 Eosinophils # (Auto) 0.1 10 3/uL 0.0-0.7 [facility] Immature Granulocyte # (Auto) 0.01 10 3/uL 0.00-0.03 [facility] Platelet mean volume Auto (B ld) [Entitic vol]on 10-19-2023 Platelet mean volume (Bld) [Entitic vol] 10.8 fL 9.5-13.5 [facility] Platelets Auto (Bld) [#/Vol] on 10-19-2023 Platelets (Bld) [#/Vol] 122 10 3/uL Low 150-450 [facility] RBC Auto (Bld) [#/Vol]on RBC (Bld) [#/Vol] 4.07 10 6/uL Low 4.20-5.40 [facility] Serum or plasma anion gap de terminationon 10-19-2023 Anion gap [Moles/Vol] 12.6 mmol/L [facility] Glucose mean value [Mass/vol ume] in Blood Estimated from glycated hemoglobinon 08-28-2023 Average glucose Estimated from glycated hemoglobin (Bld) [Mass/Vol] 111 mg/dL [facility] Laboratory - Hematology and Cell countson 08-28-2023 HbA1c (Bld) [Mass fraction] 5.5 % 4.5-6.2 [facility] Comment on above: ADA RECOMMENDED LIMI T 4.0 - 6.0ADA THERAPEUTIC TARGET < 7.0ACTION SUGGESTED> 7.0 Basophils Auto (Bld) [#/Vol] on 07-09-2023 Basophils (Bld) [#/Vol] 0.1 10 3/uL 0.0-0.1 [facility] Basophils/100 WBC Auto (Bld) on 07-09-2023 Basophils/100 WBC (Bld) 1.2 % 0.2-2.0 [facility] Eosinophils/100 WBC Auto (Bl d)on 07-09-2023 Eosinophils/100 WBC (Bld) 4.3 % 0.9-7.0 [facility] Erythrocyte distribution wid th Auto (RBC) [Ratio]on 07-09-2023 Erythrocyte distribution width (RBC) [Ratio] 15.3 % 11.0-15.0 [facility] Estimated glomerular filtrat ion rate (GFR) non- Americanon 07-09-2023 GFR/1.73 sq M.predicted among non-blacks MDRD (S/P/Bld) [Vol rate/Area] 43 mL/min/{1.73_m2} >=60 [facility] Hematocrit Auto (Bld) [Volum e fraction]on 07-09-2023 Hematocrit (Bld) [Volume fraction] 40.3 % 36.0-48.0 [facility] Hemoglobin [Mass/volume] in Bloodon 07-09-2023 Hemoglobin (Bld) [Mass/Vol] 12.8 g/dL 12.0-16.0 [facility] Laboratory - Chemistry and C hemistry - challengeon 07-09-2023 Calcium [Mass/Vol] 8.9 mg/dL 8.5-10.1 [facility] Chloride [Moles/Vol] 102 mmol/L 98-107 [facility] CO2 [Moles/Vol] 30.1 mmol/L 21.0-32.0 [facility] Creatinine [Mass/Vol] 1.27 mg/dL 0.55-1.02 [facility] GFR/1.73 sq M.predicted MDRD (S/P/Bld) [Vol rate/Area] 52 mL/min/{1.73_m2} >=60 [facility] Glucose [Mass/Vol] 114 mg/dL 74-106 [facility] Potassium [Moles/Vol] 3.7 mmol/L 3.5-5.1 [facility] Sodium [Moles/Vol] 142 mmol/L 136-145 [facility] Urea nitrogen [Mass/Vol] 18.0 mg/dL 7.0-18.0 [facility] Urea nitrogen/Creatinine [Mass ratio] 14.2 mg/mg [facility] Laboratory - Hematology and Cell countson 07-09-2023 Immature granulocytes/100 WBC (Bld) 0.2 % 0.0-0.5 [facility] Leukocytes [#/volume] correc renato for nucleated erythrocytes in Blood by Automated counon 07-09-2023 WBC corrected for nucl RBC Auto (Bld) [#/Vol] 4.2 10 3/uL 4.0-11.0 [facility] Lymphocytes Auto (Bld) [#/Vo l]on 07-09-2023 Lymphocytes (Bld) [#/Vol] 1.5 10 3/uL 1.2-3.8 [facility] Lymphocytes/100 WBC Auto (Bl d)on 07-09-2023 Lymphocytes/100 WBC (Bld) 34.8 % 20.5-60.0 [facility] MCH Auto (RBC) [Entitic mass ]on 07-09-2023 MCH (RBC) [Entitic mass] 29.0 pg 26.7-34.0 [facility] MCHC Auto (RBC) [Mass/Vol]on 07-09-2023 MCHC (RBC) [Mass/Vol] 31.8 g/dL 29.9-35.2 [facility] MCV Auto (RBC) [Entitic vol] on 07-09-2023 MCV (RBC) [Entitic vol] 91.4 fL 81.0-99.0 [facility] Monocytes Auto (Bld) [#/Vol] on 07-09-2023 Monocytes (Bld) [#/Vol] 0.3 10 3/uL 0.3-0.8 [facility] Monocytes/100 WBC Auto (Bld) on 07-09-2023 Monocytes/100 WBC (Bld) 7.6 % 1.7-12.0 [facility] Neutrophils Auto (Bld) [#/Vo l]on 07-09-2023 Neutrophils (Bld) [#/Vol] 2.2 10 3/uL 1.4-6.5 [facility] Neutrophils/100 WBC Auto (Bl d)on 07-09-2023 Neutrophils/100 WBC (Bld) 51.9 % 43.0-75.0 [facility] No Panel Informationon 07-08 Eosinophils # (Auto) 0.2 10 3/uL 0.0-0.7 [facility] Immature Granulocyte # (Auto) 0.01 10 3/uL 0.00-0.03 [facility] Platelet mean volume Auto (B ld) [Entitic vol]on 07-09-2023 Platelet mean volume (Bld) [Entitic vol] 12.4 fL 9.5-13.5 [facility] Platelets Auto (Bld) [#/Vol] on 07-09-2023 Platelets (Bld) [#/Vol] 108 10 3/uL 150-450 [facility] RBC Auto (Bld) [#/Vol]on RBC (Bld) [#/Vol] 4.41 10 6/uL 4.20-5.40 [facility] Serum or plasma anion gap de terminationon 07-09-2023 Anion gap [Moles/Vol] 13.6 mmol/L [facility] CBC AUTO DIFFon 02-21-2022 BASO # 0.0 103/ul Normal 0.0-0.1 [facility] Comment on above: Performed By: #### C BC #### [facility] [address] [address] [address] Rivas Zhao Basophils/100 WBC (Bld) 0.7 % Normal 0.2-2.0 [facility] Comment on above: Performed By: #### C BC #### [facility] [address] [place] [address] Dr. Rivas Zhao EO # 0.2 103/ul Normal 0.0-0.7 [facility] Comment on above: Performed By: #### C BC #### [facility] [address] [place] [address] Dr. Rivas Zhao Eosinophils/100 WBC (Bld) 3.4 % Normal 0.9-7.0 [facility] Comment on above: Performed By: #### C BC #### [facility] [address] [place] [address] Dr. Rivas Zhao Erythrocyte distribution width (RBC) [Ratio] 14.8 % Normal 11.0-15.0 [facility] Comment on above: Performed By: #### C BC #### [facility] [address] [place] [address] Dr. Rivas Zhao Hematocrit (Bld) [Volume fraction] 38.4 % Normal 36.0-48.0 [facility] Comment on above: Performed By: #### C BC #### [facility] [address] [place] [address] Dr. Rivas Zhao Hemoglobin (Bld) [Mass/Vol] 12.7 g/dL Normal 12.0-16.0 [facility] Comment on above: Performed By: #### C BC #### [facility] [address] [place] [address] Dr. Rivas Zhao IG # 0.01 10e3/ul Normal 0.00-0.03 [facility] Comment on above: Performed By: #### C BC #### [facility] [address] [place] [address] Dr. Rivas Zhao IG % 0.2 % Normal 0.0-0.5 [facility] Comment on above: Performed By: #### C BC #### [facility] [address] [place] [address] Dr. Rivas Zhao LYMPH # 1.5 103/ul Normal 1.2-3.8 [facility] Comment on above: Performed By: #### C BC #### [facility] [address] [place] [address] Dr. Rivas Zhao Lymphocytes/100 WBC (Bld) 34.9 % Normal 20.5-60.0 [facility] Comment on above: Performed By: #### C BC #### [facility] [address] [place] [address] Dr. Rivas Zhao MANUAL DIFF REQ NO Normal [facility] Comment on above: Performed By: #### C BC #### [facility] [address] [place] [address] Dr. Rivas Zhao MCH (RBC) [Entitic mass] 30.2 pg Normal 26.7-34.0 [facility] Comment on above: Performed By: #### C BC #### [facility] [address] [place] [address] Dr. Rivas Zhao MCHC (RBC) [Mass/Vol] 33.1 g/dL Normal 29.9-35.2 [facility] Comment on above: Performed By: #### C BC #### [facility] [address] [place] [address] Dr. Rivas Zhao MCV (RBC) [Entitic vol] 91.2 fL Normal 81.0-99.0 [facility] Comment on above: Performed By: #### C BC #### [facility] [address] [place] [address] Dr. Rivas Zhao MONO # 0.3 103/ul Normal 0.3-0.8 [facility] Comment on above: Performed By: #### C BC #### [facility] [address] [place] [address] Dr. Rivas Zhao Monocytes/100 WBC (Bld) 5.9 % Normal 1.7-12.0 [facility] Comment on above: Performed By: #### C BC #### [facility] [address] [place] [address] Dr. Rivas Zhao NEUT # 2.4 103/ul Normal 1.4-6.5 [facility] Comment on above: Performed By: #### C BC #### [facility] [address] [address] [address] Rivas Zhao Neutrophils/100 WBC (Bld) 54.9 % Normal 43.0-75.0 [facility] Comment on above: Performed By: #### C BC #### [facility] [address] [address] [address] Rivas Zhao Platelet mean volume (Bld) [Entitic vol] 11.9 fL Normal 9.5-13.5 [facility] Comment on above: Performed By: #### C BC #### [facility] [address] [address] [address] Rivas hZao PLT 107 103/ul Critically low 150-450 [facility] Comment on above: Performed By: #### C BC #### [facility] [address] [place] [address] Dr. Rivas Zhao RBC 4.21 106/ul Normal 4.20-5.40 [facility] Comment on above: Performed By: #### C BC #### [facility] [address] [place] [address] Dr. Rivas Zhao WBC 4.4 103/ul Normal 4.0-11.0 [facility] Comment on above: Performed By: #### C BC #### [facility] [address] [place] [address] Dr. Rivas Zhao GLYCOHEMOGLOBIN A1Con 2021 ADA RECOMMENDATION SEE BELOW Normal [facility] Comment on above: Result Comment: ADA RECOMMENDED LIMIT 4.0 - 6.0 ADA THERAPEUTIC TARGET < 7.0 ACTION SUGGESTED > 7.0 Performed By: #### A 1C #### [facility] [address] [place] [address] Dr. Rivas Zhao Glucose [Mass/Vol] 117 mg/dL Normal [facility] Comment on above: Performed By: #### A 1C #### [facility] [address] [place] [address] Dr. Rivas Zhao HbA1c (Bld) [Mass fraction] 5.7 % Normal 4.5-6.2 [facility] Comment on above: Performed By: #### A 1C #### [facility] [address] [address] [address] Rivas Zhao LIPID PROFILEon 02-21-2022 CHOL-HDL RATIO NORM SEE BELOW Normal [facility] Comment on above: Result Comment: 3.3 - 4.4 LOW RISK 4.4 - 7.1 AVERAGE RISK 7.1 - 11.0 MODERATE RISK >11.0 HIGH RISK Performed By: #### L IPID, CMP #### [facility] [address] [address] [address] Rivas Zhao Cholesterol [Mass/Vol] 160 mg/dL Normal <=200 [facility] Comment on above: Performed By: #### L IPID, CMP #### [facility] [address] [address] [address] Rivas Zhao Cholesterol in HDL [Mass/Vol] 49 mg/dL Normal 40-60 [facility] Comment on above: Performed By: #### L IPID, CMP #### [facility] [address] [address] [address] Rivas Zhao Cholesterol in LDL [Mass/Vol] 96.0 mg/dL Normal [facility] Comment on above: Performed By: #### L IPID, CMP #### [facility] [address] [address] [address] Rivas Zhao Cholesterol.total/Cho lesterol in HDL [Mass ratio] 3.3 {ratio} Normal [facility] Comment on above: Performed By: #### L IPID, CMP #### [facility] [address] [address] [address] Rivas Zhao HDL NORMAL > or = 60 mg/dl - LO W CARDIOVASCULAR RISK <40 mg/dl - HIGH CARDIOVASCULAR RISK Normal [facility] Comment on above: Performed By: #### L IPID, CMP #### [facility] [address] [address] [address] Rivas Zhao LDL CALC NORMAL SEE BELOW Normal [facility] Comment on above: Result Comment: <100 mg/dl OPTIMAL 100 - 129 mg/dl NEAR OR ABOVE OPTIMAL 130 - 159 mg/dl BORDERLINE HIGH 160 - 189 mg/dl HIGH >190 mg/dl VERY HIGH Performed By: #### L IPID, CMP #### [facility] [address] [address] [address] Rivas Zhao Triglyceride [Mass/Vol] 75 mg/dL Normal <=150 [facility] Comment on above: Performed By: #### L IPID, CMP #### [facility] [address] [address] [address] Rivas Zhao VLDL CALC 15.0 mg/dL Normal [facility] Comment on above: Performed By: #### L IPID, CMP #### [facility] [address] [address] [address] Rivas Zhao PROF 14(COMP METB)on 022 Albumin [Mass/Vol] 3.0 g/dL Critically low 3.4-5.0 [facility] Comment on above: Performed By: #### L IPID, CMP #### [facility] [address] [place] [address] Dr. Rivas Zhao Albumin/Globulin [Mass ratio] 0.6 {ratio} Normal [facility] Comment on above: Performed By: #### L IPID, CMP #### [facility] [address] [place] [address] Dr. Rivas Zhao ALP [Catalytic activity/Vol] 74 U/L Normal 46-116 [facility] Comment on above: Performed By: #### L IPID, CMP #### [facility] [address] [place] [address] Dr. Rivas Zhao ALT [Catalytic activity/Vol] 59 U/L Normal 14-59 [facility] Comment on above: Performed By: #### L IPID, CMP #### [facility] [address] [place] [address] Dr. Rivas Zhao Anion gap [Moles/Vol] 9.2 mmol/L Normal [facility] Comment on above: Performed By: #### L IPID, CMP #### [facility] [address] [place] [address] Dr. Rivas Zhao AST [Catalytic activity/Vol] 65 U/L Critically high 15-37 [facility] Comment on above: Performed By: #### L IPID, CMP #### [facility] [address] [address] [address] Rivas Zhao Bilirubin [Mass/Vol] 1.1 mg/dL Critically high 0.2-1.0 [facility] Comment on above: Performed By: #### L IPID, CMP #### [facility] [address] [place] [address] Dr. Rivas Zhao Calcium [Mass/Vol] 8.8 mg/dL Normal 8.5-10.1 [facility] Comment on above: Performed By: #### L IPID, CMP #### [facility] [address] [place] [address] Dr. Rivas Zhao Chloride [Moles/Vol] 102 mmol/L Normal 98-107 [facility] Comment on above: Performed By: #### L IPID, CMP #### [facility] [address] [place] [address] Dr. Rivas Zhao CO2 [Moles/Vol] 32.5 mmol/L Critically high 21.0-32.0 [facility] Comment on above: Performed By: #### L IPID, CMP #### [facility] [address] [place] [address] Dr. Rivas Zhao Creatinine [Mass/Vol] 0.76 mg/dL Normal 0.55-1.02 [facility] Comment on above: Performed By: #### L IPID, CMP #### [facility] [address] [place] [address] Dr. Rivas Zhao EGFR-AF BOTSWANAN >60 Normal >=60 [facility] Comment on above: Performed By: #### L IPID, CMP #### [facility] [address] [place] [address] Dr. Rivas Zhao EGFR-NON AF BOTSWANAN >60 Normal >=60 [facility] Comment on above: Performed By: #### L IPID, CMP #### [facility] [address] [place] [address] Dr. Rivas Zhao Globulin (S) [Mass/Vol] 4.7 g/dL Normal [facility] Comment on above: Performed By: #### L IPID, CMP #### [facility] [address] [place] [address] Dr. Rivas Zhao Glucose [Mass/Vol] 109 mg/dL Critically high 74-106 [facility] Comment on above: Performed By: #### L IPID, CMP #### [facility] [address] [place] [address] Dr. Rivas Zhao Potassium [Moles/Vol] 3.7 mmol/L Normal 3.5-5.1 [facility] Comment on above: Performed By: #### L IPID, CMP #### [facility] [address] [place] [address] Dr. Rivas Zhao Protein [Mass/Vol] 7.7 g/dL Normal 6.4-8.2 [facility] Comment on above: Performed By: #### L IPID, CMP #### [facility] [address] [place] [address] Dr. Rivas Zhao Sodium [Moles/Vol] 140 mmol/L Normal 136-145 [facility] Comment on above: Performed By: #### L IPID, CMP #### [facility] [address] [place] [address] Dr. Rivas Zhao Urea nitrogen [Mass/Vol] 12.0 mg/dL Normal 7.0-18.0 [facility] Comment on above: Performed By: #### L IPID, CMP #### [facility] [address] [place] [address] Dr. Rivas Zhao Urea nitrogen/Creatinine [Mass ratio] 15.8 mg/mg Normal [facility] Comment on above: Performed By: #### L IPID, CMP #### [facility] [address] [place] [address] Dr. Rivas Zhao Patient Correspondenceon Patient Correspondence [id number]#1. 00CD:127 Normal [facility] Physician Referral [id number]#1. 00CD:127 Normal [facility] Patient Correspondence [id number]#1. 00CD:127 Normal [facility] Physician Referralon 022 Physician Referral [id number] .00CD:127 Normal [facility] MG MAMM DIAGNOSTIC 3D GREG CA Don 05-16-2021 MG MAMM DIAGNOSTIC 3D GREG CAD Patient: FERN CARDOSO Exam Date: 05/16/2021 : 1960 Gender:F Ordering : DR SINDI BENJAMIN M.D. Admission #: [id number] Family : Order #: [id number] CLICK HERE TO VIEW EXAM RADIOLOGY REPORT [...] breast cancer at age 59. LOCATION: [facility] BREAST COMPOSITION: Scattered areas fibroglandular density. [...] M.D. on 05/16/2021 at 15:27 Normal [facility] US BREAST GREG LIMITEDon -2 US BREAST GREG LIMITED Patient: FERN CARDOSO Exam Date: 05/16/2021 : 1960 Gender:F Ordering : DR SINDI BENJAMIN M.D. Admission #: [id number] Family : Order #: [id number] CLICK HERE TO VIEW EXAM RADIOLOGY REPORT [...] breast cancer at age 59. LOCATION: [facility] BREAST COMPOSITION: Scattered areas fibroglandular density. [...] M.D. on 05/16/2021 at 15:27 Normal [facility] TRANSGLUTAMINASE IGAon 04-02 t-Transglutaminase (tTG) IgA <2 Normal 0-3 [facility] Comment on above: Result Comment: Nega tive 0 - 3 Weak Positive 4 - 10 Positive >10 . Tissue Transglutaminase (tTG) has been identified as the endomysial antigen. Studies have demonstr- ated that endomysial IgA antibodies have over 99% specificity for gluten sensitive enteropathy. Performed By: #### T FRANCESCA #### [facility] [address] [place] [address] Dr. Rivas Zhao CBC AUTO DIFFon 03-31-2021 BASO # 0.1 103/ul Normal 0.0-0.1 [facility] Comment on above: Performed By: #### C BC #### [facility] [address] [place] [address] Dr. Rivas Zhao Basophils/100 WBC (Bld) 0.9 % Normal 0.2-2.0 [facility] Comment on above: Performed By: #### C BC #### [facility] [address] [place] [address] Dr. Rivas Zhao EO # 0.2 103/ul Normal 0.0-0.7 [facility] Comment on above: Performed By: #### C BC #### [facility] [address] [place] [address] Dr. Rivas Zhao Eosinophils/100 WBC (Bld) 2.3 % Normal 0.9-7.0 [facility] Comment on above: Performed By: #### C BC #### [facility] [address] [place] [address] Dr. Rivas Zhao Erythrocyte distribution width (RBC) [Ratio] 14.5 % Normal 11.0-15.0 [facility] Comment on above: Performed By: #### C BC #### [facility] [address] [place] [address] Dr. Rivas Zhao Hematocrit (Bld) [Volume fraction] 39.9 % Normal 36.0-48.0 [facility] Comment on above: Performed By: #### C BC #### [facility] [address] [place] [address] Dr. Rivas Zhao Hemoglobin (Bld) [Mass/Vol] 13.1 g/dL Normal 12.0-16.0 [facility] Comment on above: Performed By: #### C BC #### [facility] [address] [place] [address] Dr. Rivas Zhao IG # 0.02 10e3/ul Normal 0.00-0.03 [facility] Comment on above: Performed By: #### C BC #### [facility] [address] [place] [address] Dr. Rivas Zhao IG % 0.3 % Normal 0.0-0.5 [facility] Comment on above: Performed By: #### C BC #### [facility] [address] [place] [address] Dr. Rivas Zhao LYMPH # 2.2 103/ul Normal 1.2-3.8 [facility] Comment on above: Performed By: #### C BC #### [facility] [address] [place] [address] Dr. Rivas Zhao Lymphocytes/100 WBC (Bld) 31.8 % Normal 20.5-60.0 [facility] Comment on above: Performed By: #### C BC #### [facility] [address] [place] [address] Dr. Rivas Zhao MANUAL DIFF REQ NO Normal [facility] Comment on above: Performed By: #### C BC #### [facility] [address] [place] [address] Dr. Rivas Zhao MCH (RBC) [Entitic mass] 30.2 pg Normal 26.7-34.0 [facility] Comment on above: Performed By: #### C BC #### [facility] [address] [place] [address] Dr. Rivas Zhao MCHC (RBC) [Mass/Vol] 32.8 g/dL Normal 29.9-35.2 [facility] Comment on above: Performed By: #### C BC #### [facility] [address] [address] [address] Rivas Zhao MCV (RBC) [Entitic vol] 91.9 fL Normal 81.0-99.0 [facility] Comment on above: Performed By: #### C BC #### [facility] [address] [address] [address] Rivas Zhao MONO # 0.5 103/ul Normal 0.3-0.8 [facility] Comment on above: Performed By: #### C BC #### [facility] [address] [address] [address] Rivas Zhao Monocytes/100 WBC (Bld) 7.2 % Normal 1.7-12.0 [facility] Comment on above: Performed By: #### C BC #### [facility] [address] [place] [address] Dr. Rivas Zhao NEUT # 4.0 103/ul Normal 1.4-6.5 [facility] Comment on above: Performed By: #### C BC #### [facility] [address] [place] [address] Dr. Rivas Zhao Neutrophils/100 WBC (Bld) 57.5 % Normal 43.0-75.0 [facility] Comment on above: Performed By: #### C BC #### [facility] [address] [place] [address] Dr. Rivas Zhao Platelet mean volume (Bld) [Entitic vol] 11.8 fL Normal 9.5-13.5 [facility] Comment on above: Performed By: #### C BC #### [facility] [address] [place] [address] Dr. Rivas Zhao PLT 139 103/ul Critically low 150-450 [facility] Comment on above: Performed By: #### C BC #### [facility] [address] [place] [address] Dr. Rivas Zhao RBC 4.34 106/ul Normal 4.20-5.40 [facility] Comment on above: Performed By: #### C BC #### [facility] [address] [place] [address] Dr. Rivas Zhao WBC 7.0 103/ul Normal 4.0-11.0 [facility] Comment on above: Performed By: #### C BC #### [facility] [address] [place] [address] Dr. Rivas Zhao LIPASEon 03-31-2021 Lipase [Catalytic activity/Vol] 197.0 U/L Normal 23.0-300.0 [facility] Comment on above: Performed By: #### C MP, LIPA #### [facility] [address] [place] [address] Dr. Rivas Zhao PROF 14(COMP METB)on 021 Albumin [Mass/Vol] 3.6 g/dL Normal 3.5-5.0 [facility] Comment on above: Performed By: #### C MP, LIPA #### [facility] [address] [place] [address] Dr. Rivas Zhao Albumin/Globulin [Mass ratio] 0.9 {ratio} Normal [facility] Comment on above: Performed By: #### C MP, LIPA #### [facility] [address] [place] [address] Dr. Rivas Zhao ALP [Catalytic activity/Vol] 46 U/L Normal 38-126 [facility] Comment on above: Performed By: #### C MP, LIPA #### [facility] [address] [place] [address] Dr. Rivas Zhao ALT [Catalytic activity/Vol] 77 U/L Critically high 9-52 [facility] Comment on above: Performed By: #### C MP, LIPA #### [facility] [address] [place] [address] Dr. Rivas Zhao Anion gap [Moles/Vol] 13.9 mmol/L Normal [facility] Comment on above: Performed By: #### C MP, LIPA #### [facility] [address] [place] [address] Dr. Rivas Zhao AST [Catalytic activity/Vol] 67 U/L Critically high 14-36 [facility] Comment on above: Performed By: #### C MP, LIPA #### [facility] [address] [address] [address] Rivas Zhao Bilirubin [Mass/Vol] 0.7 mg/dL Normal 0.2-1.3 [facility] Comment on above: Performed By: #### C MP, LIPA #### [facility] [address] [place] [address] Dr. Rivas Zhao Calcium [Mass/Vol] 9.8 mg/dL Normal 8.4-10.2 [facility] Comment on above: Performed By: #### C MP, LIPA #### [facility] [address] [place] [address] Dr. Rivas Zhao Chloride [Moles/Vol] 103 mmol/L Normal 98-107 [facility] Comment on above: Performed By: #### C MP, LIPA #### [facility] [address] [place] [address] Dr. Rivas Zhao CO2 [Moles/Vol] 31.0 mmol/L Critically high 22.0-30.0 [facility] Comment on above: Performed By: #### C MP, LIPA #### [facility] [address] [place] [address] Dr. Rivas Zhao Creatinine [Mass/Vol] 0.95 mg/dL Normal 0.52-1.04 [facility] Comment on above: Performed By: #### C MP, LIPA #### [facility] [address] [place] [address] Dr. Rivas Zhao EGFR-AF BOTSWANAN 60 mL/min/1.73m2 Normal >=60 [facility] Comment on above: Performed By: #### C MP, LIPA #### [facility] [address] [place] [address] Dr. Rivas Zhao EGFR-NON AF BOTSWANAN =60 Normal >=60 [facility] Comment on above: Performed By: #### C MP, LIPA #### [facility] [address] [place] [address] Dr. Rivas Zhao Globulin (S) [Mass/Vol] 4.2 g/dL Normal [facility] Comment on above: Performed By: #### C MP, LIPA #### [facility] [address] [address] [address] Rivas Zhao Glucose [Mass/Vol] 95 mg/dL Normal 74-106 [facility] Comment on above: Performed By: #### C MP, LIPA #### [facility] [address] [address] [address] Rivas Zhao Potassium [Moles/Vol] 3.9 mmol/L Normal 3.4-5.0 [facility] Comment on above: Performed By: #### C MP, LIPA #### [facility] [address] [address] [address] Rivas Zhao Protein [Mass/Vol] 7.8 g/dL Normal 6.1-8.2 [facility] Comment on above: Performed By: #### C MP, LIPA #### [facility] [address] [address] [address] Rivas Zhao Sodium [Moles/Vol] 144 mmol/L Normal 137-145 [facility] Comment on above: Performed By: #### C MP, LIPA #### [facility] [address] [address] [address] Rivas Zhao Urea nitrogen [Mass/Vol] 20.0 mg/dL Critically high 7.0-17.0 [facility] Comment on above: Performed By: #### C MP, LIPA #### [facility] [address] [address] [address] Rivas Zhao Urea nitrogen/Creatinine [Mass ratio] 21.1 mg/mg Normal [facility] Comment on above: Performed By: #### C MP, LIPA #### [facility] [address] [address] [address] Rivas Zhao XR ribs RT min 3V w CXR1V*on 06-09-2020 XR ribs RT min 3V w CXR1V* [facility] [address] XRay Report Signed Patient: Fern Cardoso MR#: [id number] : 1960 Acct:[id number] Age/Sex: 59 / F ADM Date: 06/09/20 Loc: XDUCLY Room: Type: [facility] Attending Dr: Janene Munguia APRN, APPLIANCE ADJUSTERBijalC Ordering Provider: Janene Munguia APRN Date of [...] Garcia Jr., M.D.06/09/2020 11:19 AM Dictation Location: [address] [address] Transcribed By: [facility] 06/09/20 1119 Dictated By: Que Garcia Jr, MD 06/09/20 1112 Signed By: 06/09/20 1119 [facility] Vital Signs Date Time Vital Sign Value Performing Clinician Facility 12-14-2024 10:49-0400 Body height 165.1 cm Esequiel Reno DPM Work Phone: [facility] 12-14-2024 10:49-0400 Body mass index (BMI) [Ratio] 57.91 kg/m2 Esequiel Reno DPM Work Phone: [facility] 12-14-2024 10:49-0400 Body weight 157.85 kg Esequiel Reno DPM Work Phone: [facility] 12-14-2024 10:49-0400 Respiratory rate 18 /min Esequiel Reno DPM Work Phone: [facility] 10-05-2024 10:37-0400 Body height 165.1 cm Esequiel Reno DPM Work Phone: [facility] 10-05-2024 10:37-0400 Body mass index (BMI) [Ratio] 57.91 kg/m2 Esequiel Reno DPM Work Phone: [facility] 10-05-2024 10:37-0400 Body weight 157.85 kg Esequiel Reno DPM Work Phone: [facility] 10-05-2024 10:37-0400 Respiratory rate 18 /min Esequiel Reno DPM Work Phone: [facility] 02-14-2024 10:00-0400 Body height 165.1 cm [facility] 02-14-2024 10:00-0400 Body mass index (BMI) [Ratio] 57 kg/m2 [facility] 02-14-2024 10:00-0400 Body weight 155.58 kg [facility] 02-14-2024 10:00-0400 Diastolic blood pressure 73 mm[Hg] [facility] 02-14-2024 10:00-0400 Heart rate 74 /min [facility] 02-14-2024 10:00-0400 Systolic blood pressure 108 mm[Hg] [facility] 01-24-2024 10:10-0400 Body height 165.1 cm [facility] 01-24-2024 10:10-0400 Body mass index (BMI) [Ratio] 56.3 kg/m2 [facility] 01-24-2024 10:10-0400 Body weight 153.54 kg [facility] 01-24-2024 10:10-0400 Diastolic blood pressure 70 mm[Hg] [facility] 01-24-2024 10:10-0400 Heart rate 71 /min [facility] 01-24-2024 10:10-0400 Respiratory rate 18 /min [facility] 01-24-2024 10:10-0400 SaO2% (BldA) [Mass fraction] 98 % [facility] 01-24-2024 10:10-0400 Systolic blood pressure 112 mm[Hg] [facility] 12-16-2023 11:29-0400 Body height 165.1 cm [facility] 12-16-2023 11:29-0400 Body mass index (BMI) [Ratio] 55 kg/m2 [facility] 12-16-2023 11:29-0400 Body weight 150.13 kg [facility] 12-16-2023 11:29-0400 Diastolic blood pressure 60 mm[Hg] [facility] 12-16-2023 11:29-0400 Heart rate 69 /min [facility] 12-16-2023 11:29-0400 Systolic blood pressure 86 mm[Hg] [facility] 10-14-2023 09:39-0400 Body height 165.1 cm [facility] 10-14-2023 09:39-0400 Body mass index (BMI) [Ratio] 54.6 kg/m2 [facility] 10-14-2023 09:39-0400 Body temperature 98.4 [degF] [facility] 10-14-2023 09:39-0400 Body weight 148.89 kg [facility] 10-14-2023 09:39-0400 Diastolic blood pressure 76 mm[Hg] [facility] 10-14-2023 09:39-0400 Heart rate 71 /min [facility] 10-14-2023 09:39-0400 Respiratory rate 18 /min [facility] 10-14-2023 09:39-0400 SaO2% (BldA) [Mass fraction] 97 % [facility] 10-14-2023 09:39-0400 Systolic blood pressure 114 mm[Hg] [facility] 08-12-2023 11:04-0400 Body height 165.1 cm [facility] 08-12-2023 11:04-0400 Body mass index (BMI) [Ratio] 55.2 kg/m2 [facility] 08-12-2023 11:04-0400 Body weight 150.59 kg [facility] 08-12-2023 11:04-0400 Diastolic blood pressure 67 mm[Hg] [facility] 08-12-2023 11:04-0400 Heart rate 67 /min [facility] 08-12-2023 11:04-0400 Systolic blood pressure 104 mm[Hg] [facility] 06-21-2023 15:41-0500 Body height 165.1 cm [facility] 06-21-2023 15:41-0500 Body mass index (BMI) [Ratio] 54.1 kg/m2 [facility] 06-21-2023 15:41-0500 Body weight 147.64 kg [facility] 06-21-2023 15:41-0500 Diastolic blood pressure 60 mm[Hg] [facility] 06-21-2023 15:41-0500 Heart rate 67 /min [facility] 06-21-2023 15:41-0500 SaO2% (BldA) [Mass fraction] 97 % [facility] 06-21-2023 15:41-0500 Systolic blood pressure 108 mm[Hg] [facility] 05-14-2023 09:30-0500 Body height 165.1 cm Sindi Benjamin Other [facility] Other 05-14-2023 09:30-0500 Body mass index (BMI) [Ratio] 57.24 kg/m2 Sindi Benjamin Other [facility] Other 05-14-2023 09:30-0500 Body weight 156.04 kg Sindi Benjamin Other [facility] Other 05-14-2023 09:30-0500 Diastolic blood pressure 69 mm[Hg] Sindi Benjamin Other [facility] Other 05-14-2023 09:30-0500 SaO2% (BldA) [Mass fraction] 97 % Sindi Benjamin Other [facility] Other 05-14-2023 09:30-0500 Systolic blood pressure 105 mm[Hg] Sindi Niall Other [facility] Other 03-05-2023 16:00-0500 Body height 165.1 cm Etta Gordon Other [facility] Other 03-05-2023 16:00-0500 Body mass index (BMI) [Ratio] 60.27 kg/m2 Etta Gordon Other [facility] Other 03-05-2023 16:00-0500 Body temperature 98.9 [degF] Etta Gordon Other [facility] Other 03-05-2023 16:00-0500 Body weight 164.29 kg Etta Gordon Other [facility] Other 03-05-2023 16:00-0500 Diastolic blood pressure 77 mm[Hg] Etta Gordon Other [facility] Other 03-05-2023 16:00-0500 Respiratory rate 18 /min Etta Gordon Other [facility] Other 03-05-2023 16:00-0500 SaO2% (BldA) [Mass fraction] 95 % Etta Gordon Other [facility] Other 03-05-2023 16:00-0500 Systolic blood pressure 125 mm[Hg] Etta Gordon Other [facility] Other Encounters Encounter Date Encounter Type Care Provider Facility Start: 12-15-2024 ambulatory Rosa Gaming MD Facilit y:[facility] [place] Start: 12-14-2024 End: 12-14-2024 Bamboo flowsanastasia Reno DPM Work Phone: [facility] Start: 12-14-2024 End: 12-14-2024 Bamboo flowsheet Esequiel Reno DPM Work Phone: [facility] Start: 12-14-2024 End: 12-14-2024 Patient encounter procedure Esequiel Reno DPM Work Phone: [facility] Comment on above: Hallux rigidus of le ft foot (Primary Dx); Hallux rigidus of right foot; Diabetes mellitus due to underlying condition with diabetic polyneuropathy, unspecified whether snf insulin use (HCC); Pain due to onychomycosis of toenails of both feet; Venous insufficiency Start: 12-14-2024 End: 12-14-2024 ambulatory ESEQUIEL RENO Not Available Start: 12-06-2024 ambulatory [facility] Start: 12-05-2024 End: 12-05-2024 Bamboo flowsheet Aric Aaron PT [facility] Start: 12-05-2024 End: 12-05-2024 Bamboo flowsheet Aric Aaron PT [facility] Start: 12-05-2024 End: 12-05-2024 ambulatory Aric Aaron PT [facility] Comment on above: Cervicalgia (Primary Dx) Start: 11-29-2024 End: 11-29-2024 ambulatory BENY [facility] Start: 11-15-2024 ambulatory [facility] Start: 10-31-2024 ambulatory [facility] Start: 10-05-2024 End: 10-05-2024 Bamboo flowsheet Esequiel Reno DPM Work Phone: [facility] Start: 10-05-2024 End: 10-05-2024 Bamboo flowsanastasia Reno DPM Work Phone: [facility] Start: 10-05-2024 End: 10-05-2024 Office outpatient new 30 minutes Esequiel Reno DPM Work Phone: [facility] Comment on above: Hallux rigidus of le ft foot (Primary Dx); Hallux rigidus of right foot; Diabetes mellitus due to underlying condition with diabetic polyneuropathy, unspecified whether snf insulin use (HCC); Pain due to onychomycosis of toenails of both feet; Venous insufficiency Start: 10-05-2024 End: 10-05-2024 ambulatory ESEQUIEL RENO Not Available Start: 08-28-2024 ambulatory [facility] Start: 07-07-2024 ambulatory [facility] Start: 06-09-2024 End: 06-09-2024 ambulatory JAG [facility] Start: 06-02-2024 ambulatory [facility] Start: 05-05-2024 ambulatory [facility] Start: 04-07-2024 ambulatory [facility] Start: 03-22-2024 ambulatory [facility] Start: 03-08-2024 ambulatory [facility] Start: 02-14-2024 End: 02-14-2024 ambulatory [facility] Work Phone: Start: 02-14-2024 End: 02-14-2024 Patient encounter procedure [facility] Work Phone: Start: 02-11-2024 ambulatory [facility] Start: 02-07-2024 ambulatory [facility] Start: 01-28-2024 ambulatory [facility] Start: 01-26-2024 End: 01-26-2024 ambulatory BENY [facility] Start: 01-24-2024 End: 01-24-2024 ambulatory [facility] Work Phone: Start: 01-24-2024 End: 01-24-2024 Patient encounter procedure [facility] Work Phone: Start: 01-24-2024 Non-patient / Non-visit [facility] [place] Work Phone: Start: 12-16-2023 End: 12-16-2023 ambulatory [facility] Work Phone: Start: 12-16-2023 End: 12-16-2023 Patient encounter procedure [facility] Work Phone: Start: 10-19-2023 Non-patient / Non-visit [facility] Work Phone: Start: 10-14-2023 End: 10-14-2023 ambulatory [facility] Work Phone: Start: 10-14-2023 End: 10-14-2023 Patient encounter procedure [facility] [place] Work Phone: Start: 08-28-2023 Non-patient / Non-visit [facility] Work Phone: Start: 08-22-2023 Patient encounter status [facility] Start: 08-12-2023 End: 08-12-2023 ambulatory [facility] Work Phone: Start: 08-12-2023 End: 08-12-2023 Encounter for general adult medical examination without abnormal findings [facility] Start: 08-12-2023 End: 08-12-2023 Patient encounter procedure [facility] Work Phone: Start: 07-09-2023 Non-patient / Non-visit [facility] Work Phone: Start: 06-21-2023 End: 06-21-2023 Patient encounter procedure [facility] Work Phone: Start: 05-31-2023 End: 05-31-2023 ambulatory Etta Gordon Other [facility] Other Start: 05-31-2023 Telephone encounter Etta Gordon [facility] Start: 05-21-2023 End: 05-21-2023 ambulatory Sindi Benjamin Other [facility] Other Start: 05-21-2023 Telephone encounter Sindi Benjamin [facility] Start: 05-18-2023 Patient encounter procedure [facility]- Start: 05-14-2023 End: 05-14-2023 ambulatory Sindi Benjamin Other [facility] Other Start: 05-14-2023 Office outpatient vi sit 25 minutes Sindi Benjamin [facility] Start: 04-30-2023 End: 04-30-2023 ambulatory Sindi Benjamin Other [facility] Other Start: 04-30-2023 Telephone encounter Sindi Benjamin [facility] Start: 04-01-2023 End: 04-01-2023 ambulatory Sindi Benjamin Other [facility] Other Start: 04-01-2023 Telephone encounter Sindi Benjamin [facility] Start: 03-05-2023 End: 03-05-2023 ambulatory Etta Gordon Other [facility] Other Start: 03-05-2023 Office outpatient vi sit 25 minutes Etta Gordon [facility] Start: 02-26-2022 Encounter for genera l adult medical examination without abnormal findings DR SINDI BENJAMIN [facility] Start: 02-21-2022 End: 02-22-[address] SINDI BENJAMIN Facility:[facility] Start: 02-21-2022 End: 02-22-2022 Encounter for general adult medical examination without abnormal findings DR SINDI BENJAMIN Facility:[facility] Start: 01-20-2022 Adult health examination Etta Gordon Other [facility] Other Start: 05-16-2021 End: 05-17-[address] SINDI BENJAMIN Facility:[facility] Start: 03-31-2021 End: 04-01-[address] SINDI BENJAMIN Facility:[facility] Start: 08-18-2018 Patient encounter procedure Hans Whiteside Facility:[id number] Procedures Date Procedure Procedure Detail Performing Clinician Start: 08-18-2018 Echocardiography Sudhir Whiteside Start: 06-24-2018 Pre-surgery evaluation Etta Gordon Other Start: 06-25-2015 General examination of patient Etta Gordon Other Start: 02-20-2015 Diabetes mellitus screening Etta Godron Other Start: 12-03-2014 Screening mammography Curtis Gordon Other Start: 06-05-2013 History and physical examination, administrative Etta Gordon Other Start: 01-20-2013 Preoperative cardiov ascular examination Etta Gordon Other Laboratory test resu lt abnormal Etta Gordon Other Screening for malign ant neoplasm of breast Etta Gordon Other Plan of Treatment Date Care Activity Detail Author Start: 12-21-2024 End: 12-21-2024 ambulatory 12/21/2024 12:30 PM EDT Treatment [facility] [address] [facility] [address] [place] [address] Aric Aaron, PT [facility] Start: 12-19-2024 End: 12-19-2024 ambulatory 12/19/2024 12:00 PM EDT Treatment [facility] [address] [facility] [address] [place] [id number] Brian Hill, [employer] [facility] Start: 12-18-2024 Influenza vaccination Influenza Vacc ine (#1) [facility] Start: 12-14-2024 End: 12-14-2024 ambulatory 12/14/2024 11:30 AM EDT Treatment [facility] [address] [facility] [address] [place] [address] Anabell Montague PTA [facility] Start: 12-14-2024 End: 12-14-2024 Patient encounter procedure [facility] Comment on above: Hallux rigidus of le ft foot (Primary Dx); Hallux rigidus of right foot; Diabetes mellitus due to underlying condition with diabetic polyneuropathy, unspecified whether snf insulin use (HCC); Pain due to onychomycosis of toenails of both feet; Venous insufficiency Start: 12-11-2024 End: 12-11-2024 ambulatory 12/11/2024 2:30 PM EDT Treatment [facility] [address] [facility] [address] [place] [address] Brian Hill PTA [facility] Start: 12-07-2024 End: 12-07-2024 ambulatory 12/07/2024 12:00 PM EDT Treatment [facility] [address] [facility] [address] [place] [address] Brian Hill PTA [facility] Start: 12-05-2024 End: 12-05-2024 ambulatory 12/05/2024 12:30 PM EDT Evaluation [facility] [address] [facility] [address] [place] [address] Aric Aaron PT Cervicalgia (Primary Dx) [facility] Comment on above: Cervicalgia (Primary Dx) Start: 10-05-2024 End: 10-05-2024 Patient encounter procedure 10/05/2024 10:20 AM EDT Office Visit [facility] [address] [facility] [address] [place] [address] Esequiel Reno, DPEma [address] [facility] [address] [place] [address] Arrived [facility] Comment on above: Arrived Start: 2001 Screening for malign ant neoplasm of breast Mammogram [facility] Start: 07-25-1991 Screening for malign ant neoplasm of cervix [facility] Start: 1982 Screening for malign ant neoplasm of cervix Pap Smear [facility] Start: 1961 Screening for malign ant neoplasm of colon [facility] Healthcare MG Breast - bilatera l Screening [facility] US Lower extremity v ein - right [facility] XR Lumbar spine 2 or 3 Views [facility] Immunizations Immunization Date Immunization Notes Care Provider Fa effiety 03-08-2024 influenza virus vacc ine, unspecified formulation Aric Aaron PT [facility] Healthcare Payers Date Payer Category Payer Private Health Insurance [employer] [id number] 2023 Unknown [id number] 1960 Unknown [id number]. 2.1068 1960 Unknown [id number] [id number]. 2.593 1960 Unknown [id number] [id number]. 2.593 1960 Unknown [id number] [id number]. 2.593 1960 Unknown [id number] [id number]. 2.1259 1960 Unknown [id number] [id number]. 2.1259 1960 Unknown [id number] [id number]. 2.1259 1960 Unknown [id number] [id number]. 2.196 1958 Unknown [id number] Self-pay [id number] Unknown [id number] Social History Date Type Detail Facility Unknown if ever smoked [facility] Other Start: 10-05-2024 Sex Assigned At [facility] Other Start: 07-07-2018 End: 10-05-2024 Tobacco smoking status [facility] Never smoked tobacco (finding) [facility] Start: 1960 Sex Assigned At Female [facility] Tobacco smoking stat [facility] Tobacco smoking consumption unknown [facility] Start: 09-30-2024 Gender identity Identifies as female gender (finding) [facility] Start: 09-30-2024 Sexual orientation Heterosexual (finding) [facility] Start: 10-05-2024 Tobacco use and exposure Smokeless tobacco non-user [facility] Start: 10-05-2024 End: 12-14-2024 Alcoholic beverage intake Lifetime non-drinker (finding) [facility] Start: 10-05-2024 History of Social function [facility] Medical Equipment Procedure Code Equipment Code Equipment [...] FDA Start: 07-04-2018 Clinical Notes 10-22-2020 to 12-14-2024 Esequiel Reno, [facility] - 12/14/2024 10:50 AM EDCorrine Aarno, PT - 12/05/2024 12:30 PM EDTTEETEE Sandy - 10/05/2024 10:20 AM EDT Note Date & Type Note Facility 12-14-2024 History of Present illness Narrative Patient: Fern Cardoso : 1960 PCP: No primary care provider on file. SUBJECTIVE This is a 64 y.o. female that presents today with a CC of elongated, thick nails. Pt states nails have been elongated and thick for many years and cause pain with ambulation in shoegear. Pt has tried previous treatment with minimal relief. Pt presents today for nail care and treatment. Patient is DM2 Pt also has history of venous stasis to b/l lower extremities Patient also has some complaints of pain periodically to bilateral great toe joints with hx of hallux rigidus b/l . Takes nsaids periodically with positive improvement. Patient rates pain a 0-1/10. Allergies: Not on File Past Medical History: Past Medical History: Diagnosis Date Cancer (HCC) 1999 Hammer toe 2019 Hypertension 2023 Medications: Current Outpatient Medications: apixaban (Eliquis) 5 MG tablet, Take 5 mg by mouth in the morning and 5 mg in the evening., Disp: , Rfl: bumetanide (Bumex) 1 MG tablet, Take 1 mg by mouth in the morning., Disp: , Rfl: carvedilol (Coreg) 6.25 MG tablet, TAKE 1 TABLET BY MOUTH TWICE DAILY (WITH BREAKFAST AND WITH EVENING MEAL), Disp: , Rfl: dapagliflozin (Farxiga) 10 MG, Take 10 mg by mouth, Disp: , Rfl: losartan (Cozaar) 25 MG tablet, Take 25 mg by mouth Daily, Disp: , Rfl: magnesium oxide (Mag-Ox) 400 (240 Mg) MG tablet, Take 400 mg by mouth in the morning and 400 mg before bedtime., Disp: , Rfl: metFORMIN XR (Glucophage-XR) 500 MG 24 hr tablet, Take 500 mg by mouth at bedtime, Disp: , Rfl: spironolactone (Aldactone) 25 MG tablet, Take 25 mg by mouth Daily, Disp: , Rfl: Social History: Social History Socioeconomic History Marital status: Unmarried Spouse name: Not on file Number of children: Not on file Years of education: Not on file Highest education level: Not on file Occupational History Not on file Tobacco Use Smoking status: Never Smokeless tobacco: Never Substance and Sexual Activity Alcohol use: Never Drug use: Never Sexual activity: Not Currently Partners: Male control/protection: Other Other Topics Concern Not on file Social History Narrative Not on file Social Drivers of Health Financial Resource Strain: Low Risk (05/05/2023) Received from [facility] Overall Financial Resource Strain (CARDIA) Difficulty of Paying Living Expenses: Not hard at all Food Insecurity: No Food Insecurity (05/05/2023) Received from [facility] Hunger Vital Sign Within the past 12 months, you worried that your food would run out before you got the money to buy more.: Never true Ran Out of Food in the Last Year: Not on file Transportation Needs: No Transportation Needs (05/05/2023) Received from [facility] Transportation In the past 12 months, has lack of transportation kept you from medical appointments or from getting medications?: No Lack of Transportation (Non-Medical): Not on file Physical Activity: Not on file Stress: Not on file Social Connections: Not on file Intimate Partner Violence: Unknown (05/05/2023) Received from [facility] Humiliation, Afraid, Rape, and Kick questionnaire Fear of Current or Ex-Partner: No Emotionally Abused: Not on file Physically Abused: Not on file Sexually Abused: Not on file Housing Stability: Low Risk (05/05/2023) Received from [facility] Housing Stability Vital Sign Unable to Pay for Housing in the Last Year: Not on file Number of Places Lived in the Last Year: Not on file In the last 12 months, was there a time when you did not have a steady place to sleep or slept in a senior care (including now)?: No ROS: Gastrointestinal: denies abdominal pain, ulcers, or changes in appetite or bowel habits Musculoskeletal: Positive rheumatoid arthritisarthritis to joints and denies loss of strength.. positive history of spinal condition and back issues as well as total knee replaced Cardiovascular: denies CP, palpitations, positive history of atrial fibrillation OBJECTIVE LE EXAM: DERM: Elongated thick yellow crumbly nails digits 1 through 10. Negative hair growth with thin shiny atrophic skin bilaterally +1 pitting edema to bilateral lower extremities and ankles with notable small varicosities VASC: barely palpableDP and PT pedal pulses NEURO: 5.07 [place] Satish monofilament test intact to digits and forefoot bilaterally 125Hz tuning fork diminished to 1st MPJ bilaterally ORTHO: Positive pain on palpation to toenails of the left 1,2,3,4,5 toes and right 1,2,3,4,5 toes Range of motion 1st MPJ less than 65 degrees dorsiflexion bilaterally with negative crepitus ASSESSMENT 1. Hallux rigidus of left foot 2. Hallux rigidus of right foot 3. Diabetes mellitus due to underlying condition with diabetic polyneuropathy, unspecified whether terminal operator insulin use (HCC) 4. Pain due to onychomycosis of toenails of both feet 5. Venous insufficiency PLAN Discussed proper foot care with patient today. Debride nails in length and thickness digits 1 through 10 Patient educated today on proper diabetic foot care including monitoring feet daily for any signs of infection openings in the skin or irregularities to both feet. Patient had a diabetic neurological exam today to both their feet and discussed proper shoe gear. Visit spent with patient education on condition and treatment of condition. Pt to continue with elevation of feet while resting or NWB. Patient to continue with oral anti - inflammatories as needed for pain and recommended OTC medications such as tylenol or Ibuprofen Esequiel Reno DPM documented in this encounter [facility] 12-05-2024 History of Present illness Narrative Physical Therapy Evaluation Visit Patient Name: Fern Cardoso Today's Date: 12/05/2024 Encounter Diagnoses Name Primary? Cervicalgia Yes Visit number: 1 Timed Code Treatment Minutes: 40 minutes Total Treatment Time: 50 minutes Time In: 1230 Time Out: 1325 History: Pt states she has been dealing with back pain for quite some time. Pt states normally she has back pain but now her neck is bothering her too. States she is not sure what exactly happened to her neck. 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 Precautions: bilateral TKA, universal Subjective: neck and upper back Pain: 2-10/10 Objective: PT Evaluation (12/05/2024) CERVICAL AROM: 33 degrees flexion with increase pain, 18 degrees extension with increase pain, 24 degrees right SB with stretching left UT, 20 degrees left SB with central neck pain, 35 degrees right rotation, 40 degrees left rotation Joint play: limited mobility right cervical region MMT: shoulders grossly 4- to 4/5 Muscle length: tightness bilateral UT and LS Palpation: moderate to severe tenderness right UT and LS Special Test: Cervical Compression and bilateral Spurling's testing negative for radicular sx's Neurological: Reflexes: not tested Myotomes: intact Dermatomes: intact Treatment: Education: HEP education with demonstration, Educated on Eval Findings and POC Manual Therapy: Passive ROM, Joint mobilization, Soft Tissue Mobilization, Myofascial Release, Muscle Energy Technique, Neural Mobilization, Myofascial Cupping, Dry Needling, IASTM, and Scar mobilization as needed. Therapeutic Exercise: (10 minutes) Strength, Endurance, Flexibility, ROM, HEP, Neural Mobilization, Power, and Core Stability as needed. Pt performed and instructed in home program this date; written instructions and pictures issued with good pt understanding. Therapeutic Activity: Exercises to improve dynamic activities, functional tasks, functional mobility to return to prior activity level as needed. Neuromuscular re-education: Balance Training, Muscle Facilitation, Dynamic Stability, Core Stabilization, and Blood Flow Restriction Training (BFRT) as needed. Modalities: Heat, Ice, Electrical Stimulation, Ultrasound, Cervical Mechanical Traction, Lumbar Mechanical Traction, Iontophoresis, and Fluidotherapy as needed. HP to neck and upper back in supine x 10 minutes. Assessment: Pt is 64 y/o female with complaints of chronic neck pain. Pt with limited ROM and mobility throughout cervical spine. Increase muscle tone and tightness bilateral UT and LS regions. Cervical compression and bilateral Spurling's negative for radicular sx's; however, central spine pain present. Pt instructed in home program and will benefit from further PT. Outcome Measure: Neck Disability Index (NDI): Rehab Diagnosis: neck pain, decrease ROM and mobility Short Term Goal: To be met in 2 weeks Goal 1: Pt to be instructed in home exercise program. Long-Term Goals: To be met in 10 weeks Goal 1: Pt to report independence and compliance with home program. Goal 2: Pt to report pain no greater than 2/10 in cervical region with functional mobility and ADL's. Goal 3: Pt to achieve 50 degrees of bilateral cervical rotation to assist with driving and ADL's. Goal 4: Pt to score no greater than 15/50 on NDI indicating improved QOL. Pt will benefit from skilled PT for 2x/week from 12/05/2024 to 02/27/2025 to address the above impairments. I hereby deem this POC medically necessary. Please sign below. Date: documented in this encounter [facility] 11-29-2024 Note Patient is here toda y for a 6 month follow up appointment. Patient states she has been feeling okay. Patient states while she is sitting her heart rate will go up to 104 and then drop down to 60, patient denies any other symptoms when her heart rate increase. Patient states she has jury duty and is taking a water pill and would like to know if we can write a letter to have her relieved of jury duty. Review of Systems Cardiovascular: Positive for irregular heartbeat (occasional racing heart while sitting). [facility] 11-29-2024 Note Cardiovascular Medic ine [facility] SUBJECTIVE Chief Complaint Patient presents with Congestive Heart Failure Atrial Fibrillation Hypertension Fern Cardoso is a 64 y.o. female here for follow-up 3months after her recent a.fib ablation. HPI PMHx: HFrEF, a.fib/flutter s/p ablation 10/2023, HTN, DM, RAVI 11/29/2024 She has been doing well overall since last seen. She notes that she has intermittent episodes where her HR will go up to 100's while resting then back down to 60. Lasts for a few minutes then resolves. Readings will be from her smart watch. She denies any sx's during those times. Denies c/o CP, dyspnea, orthopnea, PND, LE edema, dizziness/LH, palpitations, syncope. 01/26/2024 She is doing well from a cardiac standpoint. She developed an area of redness on her right outer calf. She was started on an antibiotic 2 days ago per PCP. Redness gets better while at work, and worsens after she gets home. Denies c/o CP, dyspnea, orthopnea, PND, LE edema, dizziness/LH, palpitations, syncope. 12/01/2023 She has been feeling well since [...] not the short episodes. She feels dizziness. --- Per Dr. Cronin: HPI: Fern Cardoso is a 62 y.o. year old with past medical history of hypertension diabetes obstructive sleep apnea was admitted to [facility] with shortness of breath and was [...] systolic congestive heart failure, NYHA class 2 ([facility]/HCC) Paroxysmal atrial fibrillation (CMS/HCC) Grade II diastolic dysfunction Benign hypertensive cardiomyopathy with heart failure (CMS/HCC) Anemia following surgery History of deep venous thrombosis Hypertension Hypokalemia Impaired mobility and activities of daily living Lack of stamina Morbid obesity with body mass index (BMI) of 50.0 to 59.9 in adult ([facility]) Postoperative pain Status post total right knee replacement Thrombocytopenia RAVI (obstructive sleep apnea) Overactive bladder Screening mammogram for breast cancer Type 2 diabetes mellitus with hyperglycemia ([facility]) PONV (postoperative nausea and vomiting) Lumbar back pain Right leg swelling Takes dietary supplements Type 2 diabetes mellitus, without long-term current use of insulin ([facility]) Past Medical History: Diagnosis Date Abnormal ECG Acute kidney injury Arrhythmia Atrial fibrillation (CMS/HCC) Atrial fibrillation ([facility]/HCC) CHF (congestive heart failure) (CMS/HCC) Diabetes mellitus ([facility]/HCC) DVT (deep venous thrombosis) ([facility]) Hypertension Obesity BMI 55/58 PONV (postoperative nausea and vomiting) Sleep apnea Thrombocytopenia Family History Problem Relation Name Age of Onset Heart attack Mother Stroke Mother Atrial fibrillation Father Heart attack Brother Stroke Brother Social History Tobacco Use Smoking status: Never Smokeless tobacco: Never Substance Use Topics Alcohol use: Not Currently Drug use: Never Allergies Allergen Reactions Diphenhydramine Hallucinations Pt states she gets loopy Penicillins Hives Tramadol Hives OBJECTIVE Visit Vitals BP 132/82 (BP Location: Right arm, Patient Position: Sitting) Pulse 84 Ht 1.651 m (5' 5 ) Wt (!) 161 kg (356 lb) SpO2 96% BMI 59.24 kg/m??? OB Status Hysterectomy Smoking Status Never BSA 2.72 m??? Medications: Current Outpatient Medications: apixaban (Eliquis) 5 mg tablet, Take 1 tablet (5 mg) by mouth two times daily., Disp: 180 tablet, Rfl: 3 aspirin 81 mg EC tablet, Take 81 mg by mouth in the morning., Disp: , Rfl: bumetanide (Bumex) 1 mg tablet, Take 1 tablet (1 mg) by mouth in the morning., Disp: 90 tablet, Rfl: 3 carvedilol (Coreg) 6.25 mg tablet, Take 1 tablet (6.25 mg) by mouth (more content not included)... [facility] 10-05-2024 History of Present illness Narrative Patient: Fern Cardoso : 1960 PCP: No primary care provider on file. SUBJECTIVE This is a 64 y.o. female that presents today with a CC of elongated, thick nails. Pt states nails have been elongated and thick for many years and cause pain with ambulation in shoegear. Pt has tried previous treatment with minimal relief. Pt presents today for nail care and treatment. Patient is DM2 Pt also presents today for secondary complaint of swelling to b/l ankle regions and feet. They state that condition is starting to worsten have tried no treatments for the condition. States swelling worstens with prolonged standing activities. Patient also has some complaints of pain periodically to bilateral great toe joints and denies any treatment Allergies: Not on File Past Medical History: Past Medical History: Diagnosis Date Cancer (HCC) 1999 Hammer toe 2020 Hypertension 2023 Medications: Current Outpatient Medications: apixaban (Eliquis) 5 MG tablet, Take 5 mg by mouth in the morning and 5 mg in the evening., Disp: , Rfl: dapagliflozin (Farxiga) 10 MG, Take 10 mg by mouth, Disp: , Rfl: magnesium oxide (Mag-Ox) 400 (240 Mg) MG tablet, Take 400 mg by mouth in the morning and 400 mg before bedtime., Disp: , Rfl: bumetanide (Bumex) 1 MG tablet, Take 1 mg by mouth in the morning., Disp: , Rfl: carvedilol (Coreg) 6.25 MG tablet, TAKE 1 TABLET BY MOUTH TWICE DAILY (WITH BREAKFAST AND WITH EVENING MEAL), Disp: , Rfl: losartan (Cozaar) 25 MG tablet, Take 25 mg by mouth Daily, Disp: , Rfl: metFORMIN XR (Glucophage-XR) 500 MG 24 hr tablet, Take 500 mg by mouth at bedtime, Disp: , Rfl: spironolactone (Aldactone) 25 MG tablet, Take 25 mg by mouth Daily, Disp: , Rfl: Social History: Social History Socioeconomic History Marital status: Unmarried Spouse name: Not on file Number of children: Not on file Years of education: Not on file Highest education level: Not on file Occupational History Not on file Tobacco Use Smoking status: Never Smokeless tobacco: Never Substance and Sexual Activity Alcohol use: Never Drug use: Never Sexual activity: Not Currently Partners: Male control/protection: Other Other Topics Concern Not on file Social History Narrative Not on file Social Drivers of Health Financial Resource Strain: Low Risk (05/05/2023) Received from [facility] Overall Financial Resource Strain (CARDIA) Difficulty of Paying Living Expenses: Not hard at all Food Insecurity: No Food Insecurity (05/05/2023) Received from [facility] Hunger Vital Sign Within the past 12 months, you worried that your food would run out before you got the money to buy more.: Never true Ran Out of Food in the Last Year: Not on file Transportation Needs: No Transportation Needs (05/05/2023) Received from [facility] Transportation In the past 12 months, has lack of transportation kept you from medical appointments or from getting medications?: No Lack of Transportation (Non-Medical): Not on file Physical Activity: Not on file Stress: Not on file Social Connections: Not on file Intimate Partner Violence: Unknown (05/05/2023) Received from [facility] Humiliation, Afraid, Rape, and Kick questionnaire Fear of Current or Ex-Partner: No Emotionally Abused: Not on file Physically Abused: Not on file Sexually Abused: Not on file Housing Stability: Low Risk (05/05/2023) Received from [facility] Housing Stability Vital Sign Unable to Pay for Housing in the Last Year: Not on file Number of Places Lived in the Last Year: Not on file In the last 12 months, was there a time when you did not have a steady place to sleep or slept in a senior care (including now)?: No ROS: Gastrointestinal: denies abdominal pain, ulcers, or changes in appetite or bowel habits Musculoskeletal: Positive rheumatoid arthritisarthritis to joints and denies loss of strength.. positive history of spinal condition and back issues as well as total knee replaced Cardiovascular: denies CP, palpitations, positive history of atrial fibrillation OBJECTIVE LE EXAM: DERM: Elongated thick yellow crumbly nails digits 1 through 10. Negative hair growth with thin shiny atrophic skin bilaterally +1 pitting edema to bilateral lower extremities and ankles with notable small varicosities VASC: barely palpableDP and PT pedal pulses NEURO: 5.07 [place] Satish monofilament test intact to digits and forefoot bilaterally 125Hz tuning fork diminished to 1st MPJ bilaterally ORTHO: Positive pain on palpation to toenails of the left 1,2,3,4,5 toes and right 1,2,3,4,5 toes Range of motion 1st MPJ less than 65 degrees dorsiflexion bilaterally with negative crepitus ASSESSMENT 1. Hallux rigidus of left foot 2. Hallux rigidus of right foot 3. Diabetes mellitus due to underlying condition with diabetic polyneuropathy, unspecified whether terminal operator insulin use (HCC) 4. Pain due to onychomycosis of toenails of both feet 5. Venous insufficiency PLAN Discussed proper foot care with patient today. Debride nails in length and thickness digits 1 through 10 Patient educated today on proper diabetic foot care including monitoring feet daily for any signs of infection openings in the skin or irregularities to both feet. Patient had a diabetic neurological exam today to both their feet and discussed proper shoe gear. Visit spent with patient education on condition and treatment of condition. Pt to continue with elevation of feet while resting or NWB. Discussed compression hose and the use of stockings for edema. Discussed condition in detail. Recommendation for [id number] compression stockings at this time and may consider prescription stockings in the future. Discussed hallux rigidus condition and arthritis to the great toe joints and becomes worse may consider possible further treatment Patient to continue with oral anti - inflammatories as needed for pain and recommended OTC medications such as tylenol or Ibuprofen Esequiel Reno DPM documented in this encounter [facility] 06-09-2024 Note Patient here for 4 m o follow up HFiEF, PAF s/p afib ablation in October 2023, and hypertension. No recent labs/imaging since last apt in Jan 2024. Amiodarone was stopped at that time. At this time she denies chest pain, SOB, lightheadedness/syncope, and bleeding on Eliquis. Palpitations are rare and not as bad as they used to be she says. Review of Systems Cardiovascular: Positive for leg swelling (intermittent, minimal) and palpitations. All other systems reviewed and are negative. [facility] 06-09-2024 Note SUBJECTIVE Reason for Visit: Fern Cardoso is a 63 y.o. year old female patient being seen for 4-month follow-up visit. HPI: Fern Cardoso is a 62-year-old with a medical history of hypertension, diabetes, A-fib/flutter, and obstructive sleep apnea who was admitted to [facility] in April 2023 for with shortness of breath. During her evaluation, she was found to be in atrial fibrillation with rapid ventricular response (RVR). A CTA ruled out pulmonary embolism, while an echocardiogram revealed a reduced ejection fraction (EF) of 40% and severe left atrial dilation. There was also concern regarding rhythm strips suggesting atrial flutter with 2:1 conduction and aberrancy. To further assess her cardiomyopathy, she underwent a cardiac catheterization, which showed normal coronary arteries. A right heart catheterization revealed mildly elevated wedge pressures, prompting the initiation of diuretic therapy. During her hospital stay, she was noted to be in atrial flutter, started on amiodarone, and successfully converted to sinus rhythm. She was subsequently discharged in stable condition. 06/09/2024 office visit follow-up: The patient was seen for a follow-up visit today and reports feeling well overall. She denies lower extremity edema, chest pain, shortness of breath, palpitations, lightheadedness, or dizziness. 01/26/2024 office visit (Anabell Cook NP): The patient is doing well from a cardiac standpoint. However, she has developed an area of redness on her right outer calf, for which her PCP started her on antibiotics two days ago. She notes that the redness improves while at work but worsens after returning home. She denies chest pain, dyspnea, orthopnea, paroxysmal nocturnal dyspnea (PND), lower extremity edema, dizziness, lightheadedness, palpitations, or syncope. December 01, 2023 office visit: Since her procedure, she has been feeling well. Initially, her heart rate was in the 90s but has since stabilized in the 70s. She occasionally experiences lightheadedness with position changes, though this is not new for her. She denies chest pain, dyspnea, orthopnea, PND, lower extremity edema, dizziness, lightheadedness, palpitations, or syncope. August 12, 2023 office visit: Since her last visit, she underwent an atrial flutter ablation with loop recorder placement. Her smartwatch has detected intermittent episodes of atrial fibrillation, with one longer episode she was able to feel, while the shorter episodes were asymptomatic. She reports occasional dizziness. Past Medical History: Diagnosis Date Abnormal ECG Acute kidney injury Arrhythmia Atrial fibrillation ([facility]/HCC) Atrial fibrillation ([facility]/HCC) CHF (congestive heart failure) (CMS/HCC) Diabetes mellitus (CMS/HCC) DVT (deep venous thrombosis) ([facility]/HCC) Hypertension Obesity BMI 55/58 PONV (postoperative nausea and vomiting) Sleep apnea Thrombocytopenia Past Surgical History: Procedure Laterality Date ABLATION OF DYSRHYTHMIC FOCUS CARDIAC CATHETERIZATION SECTION, CLASSIC OTHER SURGICAL HISTORY LOOP RECORDER INSERTION 07/12/23 REPLACEMENT TOTAL KNEE ONCOLOGIC Patient Active Problem List Diagnosis Chronic systolic congestive heart failure, NYHA class 2 ([facility]/HCC) Paroxysmal atrial fibrillation ([facility]/HCC) Grade II diastolic dysfunction Benign hypertensive cardiomyopathy with heart failure ([facility]/HCC) Anemia following surgery History of deep venous thrombosis Hypertension Hypokalemia Impaired mobility and activities of daily living Lack of stamina Morbid obesity with body mass index (BMI) of 50.0 to 59.9 in adult ([facility]) Postoperative pain Status post total right knee replacement Thrombocytopenia RAVI (obstructive sleep apnea) Overactive bladder Screening mammogram for breast cancer Type 2 diabetes mellitus with hyperglycemia ([facility]/HCC) PONV (postoperative nausea and vomiting) Lumbar back pain Right leg swelling family history includes Atrial fibrillation in her father; Heart attack in her brother and mother; Stroke in her brother and mother. Social History Tobacco Use Smoking status: Never Smokeless tobacco: Never Substance Use Topics Alcohol use: Not Currently Drug use: Not Currently OBJECTIVE Visit Vitals OB Status Hysterectomy Smoking Status Never Physical Exam Constitutional: General Appearance: well-developed, appears stated age. Level of Distress: no acute distress. Neck: Jugular Veins: normal jugular venous pressure. Lungs: Auscultation: no rales or rhonchi and normal breath sounds. Cardiovascular: Rate And Rhythm: regular. Heart Sounds: normal S1 and s2; Systolic Murmur: not heard. Diastolic Murmur: not heard. Extremities: Trace lower extremity edema Peripheral Pulses: Pulses: full and equal in all extremities except if noted. Abdomen: Inspection and Palpation: non distended or tender and soft. Musculoskeletal: Inspec (more content not included)... [facility] 01-26-2024 Note Patient here for 2 m o follow up - she is now 3 mo s/p afib ablation. Denies chest pain and SOB - but had some last week while dealing with the flu. She has a red spot on her RLE. Had doppler yesterday but does not have results yet. She states it's very painful. Review of Systems Skin: Positive for color change. Neurological: Positive for light-headedness. All other systems reviewed and are negative. [facility] 01-26-2024 Note Cardiovascular Medic [facility] SUBJECTIVE Chief Complaint Patient presents with Atrial Fibrillation Fern Cardoso is a 63 y.o. female here for follow-up 3months after her recent a.fib ablation. HPI PMHx: HFrEF, a.fib/flutter, HTN, DM, RAVI 01/26/2024 She is doing well from a cardiac standpoint. She developed an area of redness on her right outer calf. She was started on an antibiotic 2 days ago per PCP. Redness gets better while at work, and worsens after she gets home. Denies c/o CP, dyspnea, orthopnea, PND, LE edema, dizziness/LH, palpitations, syncope. 12/01/2023 She has been feeling well since [...] not the short episodes. She feels dizziness. --- Per Dr. Cronin: HPI: Fern Cardoso is a 62 y.o. year old with past medical history of hypertension diabetes obstructive sleep apnea was admitted to [facility] with shortness of breath and was [...] systolic congestive heart failure, NYHA class 2 ([facility]/HCC) Paroxysmal atrial fibrillation (CMS/HCC) Grade II diastolic [...] hyperglycemia (CMS/HCC) PONV (postoperative nausea and vomiting) Lumbar back pain Right leg swelling Past Medical History: Diagnosis Date Abnormal ECG Acute kidney injury (CMS/HCC) Arrhythmia Atrial fibrillation (CMS/HCC) Atrial fibrillation (CMS/HCC) CHF (congestive heart failure) (CMS/HCC) Diabetes mellitus (CMS/HCC) DVT (deep venous thrombosis) (CMS/HCC) Hypertension Obesity BMI 55/58 PONV (postoperative nausea and vomiting) Sleep apnea Thrombocytopenia (CMS/HCC) Family History Problem Relation Name Age of [...] Positive for light-headedness. OBJECTIVE Visit Vitals BP 134/86 (BP Location: Left wrist, Patient Position: Sitting) Pulse 76 Ht 1.651 m (5' 5 ) Wt (!) 152 kg (334 lb) SpO2 97% BMI 55.58 kg/m??? OB Status Hysterectomy Smoking Status Never BSA 2.64 m??? Medications: Current Outpatient Medications: amiodarone (Pacerone) 200 mg tablet, Take 1 tablet (200 mg) by mouth with breakfast., Disp: 90 tablet, Rfl: 3 apixaban (Eliquis) 5 mg tablet, Take 1 tablet (5 mg) by mouth two times daily., Disp: 180 tablet, Rfl: 3 bumetanide (Bumex) 1 mg tablet, Take 1 tablet (1 mg) by mouth in the morning., Disp: 90 tablet, Rfl: 3 carvedilol (Coreg) 6.25 mg tablet, Take 1 tablet (6.25 mg) by mouth with breakfast and with evening meal., Dis (more content not included)... [facility] 05-14-2023 Evaluation note Encounter Date Diagnosis [...] forms for supplies and faxed back to [email or web address]. Pt states she will restart and become compliant w CPAP treatment. [employer] Other 11-17-2023 Evaluation note* Encounter Date Diagnosis Assessment Notes [...] treatment plan. Patient left in stable condition [employer] Other 07-06-2021 Evaluation note* Diagnosis Onset Date Resolution Status Essential (primary) hypertension October 22, 2020 acute Paroxysmal atrial fibrillation acute Screening mammogram for breast cancer acute Type 2 diabetes mellitus with hyperglycemia acute [facility] Work Phone: Evaluation noteNo [facility] [employer] Other Evaluation note* Diagnosis Onset Date Resolution Status Paroxysmal atrial fibrillation acute Screening mammogram for breast cancer acute Type 2 diabetes mellitus with hyperglycemia acute Wellness examination acute [facility] Work Phone: Evaluation note* Diagnosis Onset Date Resolution Status Pain in left foot noneactive Lumbar back pain acute [facility] Work Phone: Evaluation note* Diagnosis Onset Date Resolution Status Lumbar back pain acute Right leg swelling acute [facility] Work Phone: Evaluation note* Diagnosis Hallux rigidus of left foot- Primary Hallux rigidus of right foot Diabetes mellitus due to underlying condition with diabetic polyneuropathy, unspecified whether snf insulin use (HCC) Pain due to onychomycosis of toenails of both feet Venous insufficiency Unspecified venous (peripheral) insufficiency documented in this encounter [facility] HealthcareEvaluation note* Diagnosis Cervicalgia- Primary Hallux rigidus of left foot- Primary Hallux rigidus of right foot Diabetes mellitus due to underlying condition with diabetic polyneuropathy, unspecified whether snf insulin use (HCC) Pain due to onychomycosis of toenails of both feet Venous insufficiency Unspecified venous (peripheral) insufficiency documented in this encounter [facility] HealthcareEvaluation note* Diagnosis Hallux rigidus of left foot- Primary Hallux rigidus of right foot Diabetes mellitus due to underlying condition with diabetic polyneuropathy, unspecified whether terminal operator insulin use (HCC) Pain due to onychomycosis of toenails of both feet Venous insufficiency Unspecified venous (peripheral) insufficiency documented in this encounter [facility] HealthcareHistory general Narrative - Reported* Type Description Date [...] knee arthroplasty 05/07 Hospitalization History see above [employer] Other Reason for visit Narrative* Rehabilitation - Outpatient (Routine) - Authorized Specialty Diagnoses / Procedures Referred By Contac t Referred To Contact Physical Therapy Diagnoses Cervicalgia Procedures RI PHYSICAL THERAPY EVALUATION LOW COMPLEX 20 MINS RI OFFICE/OUTPATIENT NEW HIGH MDM 60 MINUTES Rosa Gaming MD [address] [place] [address] fax: Aric Aaron PT Referral ID Status Reason Start Date Expiration Date V isits Requested Visits Authorized [id number] Authorized 12/05/2024 05/21/2025 12 12 [facility] Healthcare Summary Purpose Family History No Family History [...] Pain in left foot Lumbar back pain Chief Complaint back pain CC Adult Risk Stratification leg pain Reason for Visit Lumbar back pain Right leg swelling Chief Complaint back pain CC Adult Risk Stratification leg pain R leg bite Reason for Visit Lumbar back pain Right leg swelling Additional Source Comments INFORMATION SOURCE (unrecogn ized section and content) DATE CREATED AUTHOR 08/28/2018 [facility] DATE CREATED AUTHOR AUTHOR'S ORGANIZ ATION 05/07/2021 [facility] DATE CREATED AUTHOR AUTHOR'S ORGANIZ ATION 09/19/2021 [facility] DATE CREATED AUTHOR AUTHOR'S ORGANIZ ATION 02/27/[address] [facility] DATE CREATED AUTHOR AUTHOR'S ORGANIZ ATION 12/10/2024 [facility] DATE CREATED AUTHOR AUTHOR'S ORGANIZ ATION 12/16/2024 [facility] DATE CREATED AUTHOR AUTHOR'S ORGANIZ ATION 12/17/2024 [facility] REASON FOR VISIT (unrecogniz ed section and content) Reason Comments Toenail Care Reason Comments DM Foot Care Care Teams (unrecognized sec tion and content) [...] December 16, 2023 End: December 16, 2023 Team Status: Active Member Role Status Vicky Benjamin MD Primary Care Provide r, Attending Provider Active Start: January 24, 2024 Team Status: Inactive Member Role Status Vicky Benjamin MD Primary Care Provide r, Attending Provider Active Start: January 24, 2024 End: January 24, 2024 Team Status: Inactive Member Role Status Vicky Benjamin MD Primary Care Provide r, Attending Provider Active Start: February 14, 2024 End: February 14, 2024 Goals (unrecognized section and content) Goals may [...] BE BASED ON THE PRIMARY CLINICAL RECORDS. [facility] [employer] [facility]. provides no warranty or guarantee of the accuracy or completeness of information in this document.
== END 2025-01-04 12:59 | disposition home or self-care (01) ==
LOC: CARD 12:58
PROVIDERS: PCP Internal Medicine; Visit Provider Nurse Practitioner Family
DX: I48.0 Paroxysmal atrial fibrillation (principal); I50.32 Chronic diastolic (congestive) heart failure
CPT/HCPCS: 93306

== ENCOUNTER 2025-01-09 10:05 | Outpatient (OUT) | payer OTHER, SELFPAY ==
--- OUTSIDE RECORDS SUMMARY | 2025-01-09 10:10 | XMS_ITS | CCD ---
Author Organization [facility] Care Team Providers Care Audit Machine Operator Name Role Phone Hans Whiteside Attending Unavailable [...] SINDI Torres Consulting Unavailable Etta Gordon Unavailable BenjaminSindi Unavailable Unavailable Primary Care Provider UnavailESEQUIEL Roman Attending Unavailable ARIC AARON Attending Unavailable MEKHI, ROSA Referring Unavailable ESEQUIEL RENO Attending Unavailable Rafael Pickard MD Attending Unavailable Mekhi WOOD, Rosa Referring Unavailable Rosa Guzman MD Primary Care Unavailable JOSE LUIS CRONIN Referring Unavailable MILTON, [...] COOK Attending Unavailable JAG MAGALLANES Attending Unavailable JOSE LUIS CRONIN Referring Unavailable Allergies Allergy Classification Reported Allergen(s) Allergy Type Date of Onset Reaction(s) Facility (7 sources) Penicillins; Translations: [PENICILLINS] Drug allergy (disorder) 02-07-20 13 [facility] Repository (11 sources) Ciprofloxacin Drug Allergy 08-12-19 Comment:nausea and diarrhea [facility] (11 sources) Penicillin G Drug Allergy 08-12-19 [facility] (12 sources) traMADol; Translations: [TRAMADOL] Drug Allergy 06-25-19 16 Unknown, [facility] (6 sources) Substance with penicillin structure and antibacterial mechanism of action (substance) Drug allergy 12-23-19 13 Unknown [facility] Other (6 sources) patient allergy list reviewed by nurse or physicia Propensity to adverse reactions 11-11-19 Comment:Done [facility] Other (6 sources) TraMADol & Dietary Manage Prod *ANALGESICS - OPIOI Propensity to adverse reactions 06-25-19 16 Unknown [facility] Other (6 sources) Allergies Reconciled Propensity to adverse reactions Unknown [facility] Other (1 source) diphenhydrAMINE; Translations: [DIPHENHYDRAMINE] Drug Allergy 10-28-19 [facility] Repository Medications Current Medications Medication Drug [...] Active -Hx Entry for 0 *Reorder from [facility] for eRx and Interaction Alerts* Feb, [...] 400 mg oral tablet (15 sources) Start: 05-29-2025 take 1 tablet by mouth in the [...] Oral daily for 0 *Pick strength-form from [facility] for eRX* August, Active Start: 07-14-2018 End: [...] at bedtime for 0 *Pick strength-form from [facility] for eRX* Sep, Not-Taking/PRN take 1 tablet [...] Start: 09-26-2021 take 1 capsule by mo [facility] every eight hours Cephalexin 500 MG 1 [...] 9:42am Start: 11-27-2021 [facility] Diclofenac Sodium 75MG Diclofenac Sodium 75MG, 1 Tablet Tablet twice a day # 0, 11/27/2021, No Refill. Active Oral twice a day for 0 *Pick strength-form from [facility] for eRX* Nov, Active Start: 06-22-2018 End: 07-14-2018 take 75 mg by mouth once daily in the morning Diclofenac Sodium Discontinued 75 MG PO Every morning June 22, 2018 1:00am July 14, 2018 12:23pm take [address] [facility] twice daily at mealtime Diclofenac Sodium 75 [...] oral every evening for 0 *Reorder from [facility] for eRx and Interaction Alerts* Feb, Active [...] of hypertension] Episodic Other connective tissue disease (11 sources) [...] dysrhythmias (2 sources) Palpitations; Translations: [Palpitations] Onset: 03-08-2024 Episodic Nonspecific chest pain (6 sources) Chest pain; Translations: [Chest pain, unspecified] Onset: 06-25-2015 Episodic Other circulatory disease (2 sources) Personal history of other diseases of the circulatory system; Translations: [Personal history of other diseases of the circulatory system] Onset: 01-26-2024 Episodic Other gastrointestinal disorders (4 sources) Diarrhea, [...] [Acute recurrent maxillary sinusitis] Onset: 01-14-2016 Episodic Residual codes; unclassified (2 sources) Other specified postprocedural states; Translations: [Other specified postprocedural states] Onset: 01-26-2024 Episodic Unclassified (1 source) Contact with and (suspected) exposure to covid-19 Z20.822 Unclassified (5 sources) Lack of stamina; Translations: [Impaired endurance] 03-31-2023 Viral infection (1 source) COVID-19 Results Test Name Value Interpretation Reference Range Facility Orders Onlyon 01-05-2025 Orders Only [id number] Fern Cardoso 1960 F Date Provider Department [place] 01/05/2025 [id number], HISTORICAL CARD [facility] Family History Problem Relation Age of Onset Heart attack Mother Stroke Mother Atrial fibrillation Father Heart attack Brother Stroke Brother Family Status - Relation Status Age at Mother Father Brother Normal [facility] Orders Onlyon 01-04-2025 Orders Only [id number] Last Cardosola Curtis 1960 F Date Provider Department Center 01/04/2025 [id number] REINOSO HVC CARD [facility] Family History Problem Relation Age of Onset Heart attack Mother Stroke Mother Atrial fibrillation Father Heart attack Brother Stroke Brother Family Status - Relation Status Age at Mother Father Brother Normal [facility] Orders Onlyon 12-02-2024 Orders Only [id number] Fern Cardoso 1960 F Date Provider Department Center 12/02/2024 [id number] CARTAGENA HVC CARD [facility] Family History Problem Relation Age of Onset Heart attack Mother Stroke Mother Atrial fibrillation Father Heart attack Brother Stroke Brother Family Status - Relation Status Age at Mother Father Brother Normal [facility] Office Visiton 11-29-2024 Follow-up visit [id number] Fern Cardoso 1960 F Date Provider Department Center 11/29/2024 BENY LAZAR CARD [facility] Family History Problem Relation Age of Onset Heart attack Mother Stroke Mother Atrial fibrillation Father Heart attack Brother Stroke Brother Family Status - Relation Status Age at Mother Father Brother Level of Service:15962 [place] OFFICE/OUTPATIENT ESTABLISHED MOD MDM 30 MIN Reason for Visit and Comments: Congestive Heart Failure [127] Atrial Fibrillation [80] Hypertension [406899] Normal [facility] Orders Onlyon 10-28-2024 Orders Only [id number] Fern Cardoso 1960 F Date Provider Department Center 10/28/2024 JOSE LUIS WILLIS HVC CARD [facility] Family History Problem Relation Age of Onset Heart attack Mother Stroke Mother Atrial fibrillation Father Heart attack Brother Stroke Brother Family Status - Relation Status Age at Mother Father Brother Normal [facility] Office Visiton 06-09-2024 Follow-up visit [id number] Fern Cardoso 1960 F Date Provider Department Center 06/09/2024 [id number], ADAM CARD [facility] Family History Problem Relation Age of Onset Heart attack Mother Stroke Mother Atrial fibrillation Father Heart attack Brother Stroke Brother Family Status - Relation Status Age at Mother Father Brother Level of Service:89116 [place] OFFICE/OUTPATIENT ESTABLISHED LOW MDM 20 MIN Normal [facility] Orders Onlyon 06-09-2024 Orders Only [id number] Fern Cardoso A 1960 F Date Provider Department Center 06/09/2024 [id number], ADAM [facility] CARD [facility] Family History Problem Relation Age of Onset Heart attack Mother Stroke Mother Atrial fibrillation Father Heart attack Brother Stroke Brother Family Status - Relation Status Age at Mother Father Brother Normal [facility] Orders Onlyon 05-15-2024 Orders Only [id number] Fern Cardoso A 1960 F Date Provider Department Center 05/15/2024 NICOLAS JEFFREY CARD [facility] Family History Problem Relation Age of Onset Heart attack Mother Stroke Mother Atrial fibrillation Father Heart attack Brother Stroke Brother Family Status - Relation Status Age at Mother Father Brother Normal [facility] Office Visiton 01-26-2024 Follow-up visit [id number] Fern Cardoso A 1960 F Date Provider Department Center 01/26/2024 BENY LAZAR CARD [facility] Family History Problem Relation Age of Onset Heart attack Mother Stroke Mother Atrial fibrillation Father Heart attack Brother Stroke Brother Family Status - Relation Status Age at Mother Father Brother Level of Service:72403 [place] OFFICE/OUTPATIENT ESTABLISHED MOD MDM 30 MIN Reason for Visit and Comments: Atrial Fibrillation [80] Normal [facility] Basophils Auto (Bld) [#/Vol] on 10-19-2023 Basophils (Bld) [#/Vol] 0.0 10 3/uL 0.0-0.1 [facility] Basophils/100 WBC Auto (Bld) on 10-19-2023 Basophils/100 WBC (Bld) 1.0 % 0.2-2.0 [facility] Eosinophils/100 WBC Auto (Bl d)on 10-19-2023 Eosinophils/100 WBC (Bld) 3.6 % 0.9-7.0 [facility] Erythrocyte distribution wid th Auto (RBC) [Ratio]on 10-19-2023 Erythrocyte distribution width (RBC) [Ratio] 13.6 % 11.0-15.0 [facility] Estimated glomerular filtrat ion rate (GFR) non- Americanon 10-19-2023 GFR/1.73 sq M.predicted among non-blacks MDRD (S/P/Bld) [Vol rate/Area] 41 mL/min/{1.73_m2} Low >=60 [facility] Hematocrit Auto (Bld) [Volum e fraction]on 10-19-2023 Hematocrit (Bld) [Volume fraction] 36.4 % 36.0-48.0 [facility] Hemoglobin [Mass/volume] in Bloodon 10-19-2023 Hemoglobin (Bld) [Mass/Vol] 11.5 g/dL Low 12.0-16.0 [facility] - Chemistry and C hemistry - challengeon 10-19-2023 Calcium [Mass/Vol] 8.5 mg/dL 8.5-10.1 [facility] Chloride [Moles/Vol] 102 mmol/L 98-[address] [facility] CO2 [Moles/Vol] 31.2 mmol/L 21.0-32.0 [facility] Creatinine [Mass/Vol] 1.31 mg/dL High 0.55-1.02 [facility] GFR/1.73 sq M.predicted MDRD (S/P/Bld) [Vol rate/Area] 50 mL/min/{1.73_m2} Low >=60 [facility] Glucose [Mass/Vol] 148 mg/dL High 74-106 [facility] Potassium [Moles/Vol] 3.8 mmol/L 3.5-5.1 [facility] Sodium [Moles/Vol] 142 mmol/L 136-145 [facility] Urea nitrogen [Mass/Vol] 22.0 mg/dL High 7.0-18.0 [facility] Urea nitrogen/Creatinine [Mass ratio] 16.8 mg/mg [facility] - Hematology and Cell countson 10-19-2023 Immature granulocytes/100 WBC (Bld) 0.3 % 0.0-0.5 [facility] Leukocytes [#/volume] correc renato for nucleated erythrocytes in Blood by Automated counon 10-19-2023 WBC corrected for nucl RBC Auto (Bld) [#/Vol] 3.9 10 3/uL Low 4.0-11.0 [facility] Lymphocytes Auto (Bld) [#/Vo l]on 10-19-2023 Lymphocytes (Bld) [#/Vol] 1.0 10 3/uL Low 1.2-3.8 [facility] Lymphocytes/100 WBC Auto (Bl d)on 10-19-2023 Lymphocytes/100 WBC (Bld) 26.3 % 20.5-60.0 [facility] MCH Auto (RBC) [Entitic mass ]on 10-19-2023 MCH (RBC) [Entitic mass] 28.3 pg 26.7-34.0 [facility] MCHC Auto (RBC) [Mass/Vol]on 10-19-2023 MCHC (RBC) [Mass/Vol] 31.6 g/dL 29.9-35.2 [facility] MCV Auto (RBC) [Entitic vol] on 10-19-2023 MCV (RBC) [Entitic vol] 89.4 fL 81.0-99.0 [facility] Monocytes Auto (Bld) [#/Vol] on 10-19-2023 Monocytes (Bld) [#/Vol] 0.3 10 3/uL 0.3-0.8 [facility] Monocytes/100 WBC Auto (Bld) on 10-19-2023 Monocytes/100 WBC (Bld) 6.4 % 1.7-12.0 [facility] Neutrophils Auto (Bld) [#/Vo l]on 10-19-2023 Neutrophils (Bld) [#/Vol] 2.4 10 3/uL 1.4-6.5 [facility] Neutrophils/100 WBC Auto (Bl d)on 10-19-2023 Neutrophils/100 WBC (Bld) 62.4 % 43.0-75.0 [facility] No Panel Informationon 10-18 Eosinophils # (Auto) 0.1 10 3/uL 0.0-0.7 [facility] Immature Granulocyte # (Auto) 0.01 10 3/uL 0.00-0.03 [facility] Platelet mean volume Auto (B ld) [Entitic vol]on 10-19-2023 Platelet mean volume (Bld) [Entitic vol] 10.8 fL 9.5-13.5 [facility] Platelets Auto (Bld) [#/Vol] on 10-19-2023 Platelets (Bld) [#/Vol] 122 10 3/uL Low 150-450 [facility] RBC Auto (Bld) [#/Vol]on RBC (Bld) [#/Vol] 4.07 10 6/uL Low 4.20-5.40 [facility] Serum or plasma anion gap de terminationon 10-19-2023 Anion gap [Moles/Vol] 12.6 mmol/L [facility] Glucose mean value [Mass/vol ume] in Blood Estimated from glycated hemoglobinon 08-28-2023 Average glucose Estimated from glycated hemoglobin (Bld) [Mass/Vol] 111 mg/dL [facility] - Hematology and Cell countson 08-28-2023 HbA1c (Bld) [Mass fraction] 5.5 % 4.5-6.2 [facility] Comment on above: ADA RECOMMENDED LIMI T 4.0 - 6.0ADA THERAPEUTIC TARGET < 7.0ACTION SUGGESTED> 7.0 Basophils Auto (Bld) [#/Vol] on 07-09-2023 Basophils (Bld) [#/Vol] 0.1 10 3/uL 0.0-0.1 [facility] Basophils/100 WBC Auto (Bld) on 07-09-2023 Basophils/100 WBC (Bld) 1.2 % 0.2-2.0 [facility] Eosinophils/100 WBC Auto (Bl d)on 07-09-2023 Eosinophils/100 WBC (Bld) 4.3 % 0.9-7.0 [facility] Erythrocyte distribution wid th Auto (RBC) [Ratio]on 07-09-2023 Erythrocyte distribution width (RBC) [Ratio] 15.3 % 11.0-15.0 [facility] Estimated glomerular filtrat ion rate (GFR) non- Americanon 07-09-2023 GFR/1.73 sq M.predicted among non-blacks MDRD (S/P/Bld) [Vol rate/Area] 43 mL/min/{1.73_m2} >=60 [facility] Hematocrit Auto (Bld) [Volum e fraction]on 07-09-2023 Hematocrit (Bld) [Volume fraction] 40.3 % 36.0-48.0 [facility] Hemoglobin [Mass/volume] in Bloodon 07-09-2023 Hemoglobin (Bld) [Mass/Vol] 12.8 g/dL 12.0-16.0 [facility] - Chemistry and C hemistry - challengeon 07-09-2023 Calcium [Mass/Vol] 8.9 mg/dL 8.5-10.1 [facility] Chloride [Moles/Vol] 102 mmol/L 98-[address] [facility] CO2 [Moles/Vol] 30.1 mmol/L 21.0-32.0 [facility] Creatinine [Mass/Vol] 1.27 mg/dL 0.55-1.02 [facility] GFR/1.73 sq M.predicted MDRD (S/P/Bld) [Vol rate/Area] 52 mL/min/{1.73_m2} >=60 [facility] Glucose [Mass/Vol] 114 mg/dL 74-106 [facility] Potassium [Moles/Vol] 3.7 mmol/L 3.5-5.1 [facility] Sodium [Moles/Vol] 142 mmol/L 136-145 [facility] Urea nitrogen [Mass/Vol] 18.0 mg/dL 7.0-18.0 [facility] Urea nitrogen/Creatinine [Mass ratio] 14.2 mg/mg [facility] - Hematology and Cell countson 07-09-2023 Immature granulocytes/100 WBC (Bld) 0.2 % 0.0-0.5 [facility] Leukocytes [#/volume] correc renato for nucleated erythrocytes in Blood by Automated counon 07-09-2023 WBC corrected for nucl RBC Auto (Bld) [#/Vol] 4.2 10 3/uL 4.0-11.0 [facility] Lymphocytes Auto (Bld) [#/Vo l]on 07-09-2023 Lymphocytes (Bld) [#/Vol] 1.5 10 3/uL 1.2-3.8 [facility] Lymphocytes/100 WBC Auto (Bl d)on 07-09-2023 Lymphocytes/100 WBC (Bld) 34.8 % 20.5-60.0 [facility] MCH Auto (RBC) [Entitic mass ]on 07-09-2023 MCH (RBC) [Entitic mass] 29.0 pg 26.7-34.0 [facility] MCHC Auto (RBC) [Mass/Vol]on 07-09-2023 MCHC (RBC) [Mass/Vol] 31.8 g/dL 29.9-35.2 [facility] MCV Auto (RBC) [Entitic vol] on 07-09-2023 MCV (RBC) [Entitic vol] 91.4 fL 81.0-99.0 [facility] Monocytes Auto (Bld) [#/Vol] on 07-09-2023 Monocytes (Bld) [#/Vol] 0.3 10 3/uL 0.3-0.8 [facility] Monocytes/100 WBC Auto (Bld) on 07-09-2023 Monocytes/100 WBC (Bld) 7.6 % 1.7-12.0 [facility] Neutrophils Auto (Bld) [#/Vo l]on 07-09-2023 Neutrophils (Bld) [#/Vol] 2.2 10 3/uL 1.4-6.5 [facility] Neutrophils/100 WBC Auto (Bl d)on 07-09-2023 Neutrophils/100 WBC (Bld) 51.9 % 43.0-75.0 [facility] No Panel Informationon 07-08 Eosinophils # (Auto) 0.2 10 3/uL 0.0-0.7 [facility] Immature Granulocyte # (Auto) 0.01 10 3/uL 0.00-0.03 [facility] Platelet mean volume Auto (B ld) [Entitic vol]on 07-09-2023 Platelet mean volume (Bld) [Entitic vol] 12.4 fL 9.5-13.5 [facility] Platelets Auto (Bld) [#/Vol] on 07-09-2023 Platelets (Bld) [#/Vol] 108 10 3/uL 150-450 [facility] RBC Auto (Bld) [#/Vol]on RBC (Bld) [#/Vol] 4.41 10 6/uL 4.20-5.40 [facility] Serum or plasma anion gap de terminationon 07-09-2023 Anion gap [Moles/Vol] 13.6 mmol/L [facility] CBC AUTO DIFFon 02-21-2022 BASO # 0.0 103/ul Normal 0.0-0.1 [facility] Comment on above: Performed By: #### C BC #### [facility] [address] [place] [address] Dr. Rivas Zhao Basophils/100 WBC (Bld) 0.7 % Normal 0.2-2.0 [facility] Comment on above: Performed By: #### C BC #### [facility] [address] [place] [address] Dr. Rivas Zhao EO # 0.2 103/ul Normal 0.0-0.7 [facility] Comment on above: Performed By: #### C BC #### [facility] [address] [place] [address] Dr. Rivas Zhao Eosinophils/100 WBC (Bld) 3.4 % Normal 0.9-7.0 [facility] Comment on above: Performed By: #### C BC #### [facility] [address] [place] [address] Dr. Rivas Zhao Erythrocyte distribution width (RBC) [Ratio] 14.8 % Normal 11.0-15.0 [facility] Comment on above: Performed By: #### C BC #### [facility] [address] [place] [address] Dr. Rivas Zhao Hematocrit (Bld) [Volume fraction] 38.4 % Normal 36.0-48.0 [facility] Comment on above: Performed By: #### C BC #### [facility] [address] [place] [address] Dr. Rivas Zhao Hemoglobin (Bld) [Mass/Vol] 12.7 g/dL Normal 12.0-16.0 [facility] Comment on above: Performed By: #### C BC #### [facility] [address] [place] [address] Dr. Rivas Zhao IG # 0.01 10e3/ul Normal 0.00-0.03 [facility] Comment on above: Performed By: #### C BC #### [facility] [address] [place] [address] Dr. Rivas Zhao IG % 0.2 % Normal 0.0-0.5 [facility] Comment on above: Performed By: #### C BC #### [facility] [address] [place] [address] Dr. Rivas Zhao LYMPH # 1.5 103/ul Normal 1.2-3.8 [facility] Comment on above: Performed By: #### C BC #### [facility] [address] [place] [address] Dr. Rivas Zhao Lymphocytes/100 WBC (Bld) 34.9 % Normal 20.5-60.0 [facility] Comment on above: Performed By: #### C BC #### [facility] [address] [place] [address] Dr. Rivas Zhao MANUAL DIFF REQ NO Normal [facility] Comment on above: Performed By: #### C BC #### [facility] [address] [place] [address] Dr. Rivas Zhao MCH (RBC) [Entitic mass] 30.2 pg Normal 26.7-34.0 [facility] Comment on above: Performed By: #### C BC #### [facility] [address] [place] [address] Dr. Rivas Zhao MCHC (RBC) [Mass/Vol] 33.1 g/dL Normal 29.9-35.2 [facility] Comment on above: Performed By: #### C BC #### [facility] [address] [place] [address] Dr. Rivas Zhao MCV (RBC) [Entitic vol] 91.2 fL Normal 81.0-99.0 [facility] Comment on above: Performed By: #### C BC #### [facility] [address] [address] [address] Rivas Zhao MONO # 0.3 103/ul Normal 0.3-0.8 [facility] Comment on above: Performed By: #### C BC #### [facility] [address] [address] [address] Rivas Zhao Monocytes/100 WBC (Bld) 5.9 % Normal 1.7-12.0 [facility] Comment on above: Performed By: #### C BC #### [facility] [address] [address] [address] Rivas Zhao NEUT # 2.4 103/ul Normal 1.4-6.5 [facility] Comment on above: Performed By: #### C BC #### [facility] [address] [place] [address] Dr. Rivas Zhao Neutrophils/100 WBC (Bld) 54.9 % Normal 43.0-75.0 [facility] Comment on above: Performed By: #### C BC #### [facility] [address] [place] [address] Dr. Rivas Zhao Platelet mean volume (Bld) [Entitic vol] 11.9 fL Normal 9.5-13.5 [facility] Comment on above: Performed By: #### C BC #### [facility] [address] [place] [address] Dr. Rivas Zhao PLT 107 103/ul Critically low 150-450 [facility] Comment on above: Performed By: #### C BC #### [facility] [address] [place] [address] Dr. Rivas Zhao RBC 4.21 106/ul Normal 4.20-5.40 [facility] Comment on above: Performed By: #### C BC #### [facility] [address] [address] [address] Rivas Zhao WBC 4.4 103/ul Normal 4.0-11.0 [facility] Comment on above: Performed By: #### C BC #### [facility] [address] [place] [address] Dr. Rvias Zhao GLYCOHEMOGLOBIN A1Con 2021 ADA RECOMMENDATION SEE BELOW Normal [facility] Comment on above: Result Comment: ADA RECOMMENDED LIMIT 4.0 - 6.0 ADA THERAPEUTIC TARGET < 7.0 ACTION SUGGESTED > 7.0 Performed By: #### A 1C #### [facility] [address] [address] [address] Rivas Zhao Glucose [Mass/Vol] 117 mg/dL Normal [facility] Comment on above: Performed By: #### A 1C #### [facility] [address] [place] [address] Dr. Rivas Zhao HbA1c (Bld) [Mass fraction] 5.7 % Normal 4.5-6.2 [facility] Comment on above: Performed By: #### A 1C #### [facility] [address] [place] [address] Dr. Rivas Zhao LIPID PROFILEon 02-21-2022 CHOL-HDL RATIO NORM SEE BELOW Normal [facility] Comment on above: Result Comment: 3.3 - 4.4 LOW RISK 4.4 - 7.1 AVERAGE RISK 7.1 - 11.0 MODERATE RISK >11.0 HIGH RISK Performed By: #### L IPID, CMP #### [facility] [address] [place] [address] Dr. Rivas Zhao Cholesterol [Mass/Vol] 160 mg/dL Normal <=200 [facility] Comment on above: Performed By: #### L IPID, CMP #### [facility] [address] [place] [address] Dr. Rivas Zhao Cholesterol in HDL [Mass/Vol] 49 mg/dL Normal 40-60 [facility] Comment on above: Performed By: #### L IPID, CMP #### [facility] [address] [place] [address] Dr. Rivas Zhao Cholesterol in LDL [Mass/Vol] 96.0 mg/dL Normal [facility] Comment on above: Performed By: #### L IPID, CMP #### [facility] [address] [place] [address] Dr. Rivas Zhao Cholesterol.total/Cho lesterol in HDL [Mass ratio] 3.3 {ratio} Normal [facility] Comment on above: Performed By: #### L IPID, CMP #### [facility] [address] [place] [address] Dr. Rivas Zhao HDL NORMAL > or = 60 mg/dl - LO W CARDIOVASCULAR RISK <40 mg/dl - HIGH CARDIOVASCULAR RISK Normal [facility] Comment on above: Performed By: #### L IPID, CMP #### [facility] [address] [place] [address] Dr. Rivas Zhao LDL CALC NORMAL SEE BELOW Normal [facility] Comment on above: Result Comment: <100 mg/dl OPTIMAL 100 - 129 mg/dl NEAR OR ABOVE OPTIMAL 130 - 159 mg/dl BORDERLINE HIGH 160 - 189 mg/dl HIGH >190 mg/dl VERY HIGH Performed By: #### L IPID, CMP #### [facility] [address] [place] [address] Dr. Rivas Zhao Triglyceride [Mass/Vol] 75 mg/dL Normal <=150 [facility] Comment on above: Performed By: #### L IPID, CMP #### [facility] [address] [place] [address] Dr. Rivas Zhao VLDL CALC 15.0 mg/dL Normal [facility] Comment on above: Performed By: #### L IPID, CMP #### [facility] [address] [place] [address] Dr. Rivas Zhao PROF 14(COMP METB)on 022 Albumin [Mass/Vol] 3.0 g/dL Critically low 3.4-5.0 [facility] Comment on above: Performed By: #### L IPID, CMP #### [facility] [address] [place] [address] Dr. Rivas Zhao Albumin/Globulin [Mass ratio] 0.6 {ratio} Normal [facility] Comment on above: Performed By: #### L IPID, CMP #### [facility] [address] [place] [address] Dr. Rivas Zhao ALP [Catalytic activity/Vol] 74 U/L Normal 46-116 [facility] Comment on above: Performed By: #### L IPID, CMP #### [facility] [address] [place] [address] Dr. Rivas Zhao ALT [Catalytic activity/Vol] 59 U/L Normal 14-59 [facility] Comment on above: Performed By: #### L IPID, CMP #### [facility] [address] [address] [address] Rivas Zhao Anion gap [Moles/Vol] 9.2 mmol/L Normal [facility] Comment on above: Performed By: #### L IPID, CMP #### [facility] [address] [place] [address] Dr. Rivas Zhao AST [Catalytic activity/Vol] 65 U/L Critically high 15-37 [facility] Comment on above: Performed By: #### L IPID, CMP #### [facility] [address] [place] [address] Dr. Rivas Zhao Bilirubin [Mass/Vol] 1.1 mg/dL Critically high 0.2-1.0 [facility] Comment on above: Performed By: #### L IPID, CMP #### [facility] [address] [place] [address] Dr. Rivas Zhao Calcium [Mass/Vol] 8.8 mg/dL Normal 8.5-10.1 [facility] Comment on above: Performed By: #### L IPID, CMP #### [facility] [address] [place] [address] Dr. Rivas Zhao Chloride [Moles/Vol] 102 mmol/L Normal 98-107 [facility] Comment on above: Performed By: #### L IPID, CMP #### [facility] [address] [place] [address] Dr. Rivas Zhao CO2 [Moles/Vol] 32.5 mmol/L Critically high 21.0-32.0 [facility] Comment on above: Performed By: #### L IPID, CMP #### [facility] [address] [place] [address] Dr. Rivas Zhao Creatinine [Mass/Vol] 0.76 mg/dL Normal 0.55-1.02 [facility] Comment on above: Performed By: #### L IPID, CMP #### [facility] [address] [place] [address] Dr. Rivas Zhao EGFR-AF BOTSWANAN >60 Normal >=60 [facility] Comment on above: Performed By: #### L IPID, CMP #### [facility] [address] [address] [address] Rivas Zhao EGFR-NON AF BOTSWANAN >60 Normal >=60 [facility] Comment on above: Performed By: #### L IPID, CMP #### [facility] [address] [place] [address] Dr. Rivas Zhao Globulin (S) [Mass/Vol] 4.7 g/dL Normal [facility] Comment on above: Performed By: #### L IPID, CMP #### [facility] [address] [place] [address] Dr. Rivas Zhao Glucose [Mass/Vol] 109 mg/dL Critically high 74-106 [facility] Comment on above: Performed By: #### L IPID, CMP #### [facility] [address] [place] [address] Dr. Rivas Zhao Potassium [Moles/Vol] 3.7 mmol/L Normal 3.5-5.1 [facility] Comment on above: Performed By: #### L IPID, CMP #### [facility] [address] [place] [address] Dr. Rivas Zhao Protein [Mass/Vol] 7.7 g/dL Normal 6.4-8.[address] [facility] Comment on above: Performed By: #### L IPID, CMP #### [facility] [address] [place] [address] Dr. Rivas Zhao Sodium [Moles/Vol] 140 mmol/L Normal 136-145 [facility] Comment on above: Performed By: #### L IPID, CMP #### [facility] [address] [place] [address] Dr. Rivas Zhao Urea nitrogen [Mass/Vol] 12.0 mg/dL Normal 7.0-18.0 [facility] Comment on above: Performed By: #### L IPID, CMP #### [facility] [address] [address] [address] Rivas Zhao Urea nitrogen/Creatinine [Mass ratio] 15.8 mg/mg Normal [facility] Comment on above: Performed By: #### L IPID, CMP #### [facility] [address] [address] [address] Rvias Zhao Patient Correspondenceon Patient Correspondence [id number]. 00CD:127 Normal [facility] Physician Referral [id number]#1. 00CD:127 Normal [facility] Patient Correspondence [id number]#1. 00CD:127 Normal [facility] Physician Referralon 022 Physician Referral [id number] .00CD:127 Normal [facility] MG MAMM DIAGNOSTIC 3D GREG CA Don 05-16-2021 MG MAMM DIAGNOSTIC 3D GREG CAD Patient: FERN CARDOSO Exam Date: 05/16/2021 : 1960 Gender:F Ordering : DR SINDI BENJAMIN M.D. Admission #: [id number] Family : Order #: [id number] CLICK HERE TO VIEW EXAM RADIOLOGY REPORT [...] with breast cancer at age 59. LOCATION: [facility] BREAST COMPOSITION: Scattered areas fibroglandular density. FINDINGS: [...] M.D. on 05/16/2021 at 15:27 Normal [facility] US BREAST GREG LIMITEDon -2 US BREAST GREG LIMITED Patient: FERN CARDOSO Exam Date: 05/16/2021 : 1960 Gender:F Ordering : DR SINDI BENJAMIN M.D. Admission #: [id number] Family : Order #: [id number] CLICK HERE TO VIEW EXAM RADIOLOGY REPORT [...] breast cancer at age 59. LOCATION: [facility] BREAST COMPOSITION: Scattered areas fibroglandular density. FINDINGS: [...] M.D. on 05/16/2021 at 15:27 Normal [facility] TRANSGLUTAMINASE IGAon 04-02 t-Transglutaminase (tTG) IgA <2 Normal 0-3 [facility] Comment on above: Result Comment: Nega tive 0 - 3 Weak Positive 4 - 10 Positive >10 . Tissue Transglutaminase (tTG) has been identified as the endomysial antigen. Studies have demonstr- ated that endomysial IgA antibodies have over 99% specificity for gluten sensitive enteropathy. Performed By: #### T FRANCESCA #### [facility] [address] [address] [address] Rivas Zhao CBC AUTO DIFFon 03-31-2021 BASO # 0.1 103/ul Normal 0.0-0.1 [facility] Comment on above: Performed By: #### C BC #### [facility] [address] [place], [place] [address] Dr. Rivas Zhao Basophils/100 WBC (Bld) 0.9 % Normal 0.2-2.0 [facility] Comment on above: Performed By: #### C BC #### [facility] [address] [place], [place] [address] Dr. Rivas Zhao EO # 0.2 103/ul Normal 0.0-0.7 [facility] Comment on above: Performed By: #### C BC #### [facility] [address] [place] [address] Dr. Rivas Zhao Eosinophils/100 WBC (Bld) 2.3 % Normal 0.9-7.0 [facility] Comment on above: Performed By: #### C BC #### [facility] [address] [place] [address] Dr. Rivas Zhao Erythrocyte distribution width (RBC) [Ratio] 14.5 % Normal 11.0-15.0 [facility] Comment on above: Performed By: #### C BC #### [facility] [address] [place] [address] Dr. Rivas Zhao Hematocrit (Bld) [Volume fraction] 39.9 % Normal 36.0-48.0 [facility] Comment on above: Performed By: #### C BC #### [facility] [address] [place] [address] Dr. Rivas Zhao Hemoglobin (Bld) [Mass/Vol] 13.1 g/dL Normal 12.0-16.0 [facility] Comment on above: Performed By: #### C BC #### [facility] [address] [place] [address] Dr. Rivas Zhao IG # 0.02 10e3/ul Normal 0.00-0.03 [facility] Comment on above: Performed By: #### C BC #### [facility] [address] [place] [address] Dr. Rivas Zhao IG % 0.3 % Normal 0.0-0.5 [facility] Comment on above: Performed By: #### C BC #### [facility] [address] [place] [address] Dr. Rivas Zhao LYMPH # 2.2 103/ul Normal 1.2-3.8 [facility] Comment on above: Performed By: #### C BC #### [facility] [address] [place] [address] Dr. Rivas Zhao Lymphocytes/100 WBC (Bld) 31.8 % Normal 20.5-60.0 [facility] Comment on above: Performed By: #### C BC #### [facility] [address] [place] [address] Dr. Rivas Zhao MANUAL DIFF REQ NO Normal [facility] Comment on above: Performed By: #### C BC #### [facility] [address] [place] [address] Dr. Rivas Zhao MCH (RBC) [Entitic mass] 30.2 pg Normal 26.7-34.0 [facility] Comment on above: Performed By: #### C BC #### [facility] [address] [place] [address] Dr. Rivas Zhao MCHC (RBC) [Mass/Vol] 32.8 g/dL Normal 29.9-35.2 [facility] Comment on above: Performed By: #### C BC #### [facility] [address] [place] [address] Dr. Rivas Zhao MCV (RBC) [Entitic vol] 91.9 fL Normal 81.0-99.0 [facility] Comment on above: Performed By: #### C BC #### [facility] [address] [place] [address] Dr. Rivas Zhao MONO # 0.5 103/ul Normal 0.3-0.8 [facility] Comment on above: Performed By: #### C BC #### [facility] [address] [place] [address] Dr. Rivas Zhao Monocytes/100 WBC (Bld) 7.2 % Normal 1.7-12.0 [facility] Comment on above: Performed By: #### C BC #### [facility] [address] [place] [address] Dr. Rivas Zhao NEUT # 4.0 103/ul Normal 1.4-6.5 [facility] Comment on above: Performed By: #### C BC #### [facility] [address] [place] [address] Dr. Rivas Zhao Neutrophils/100 WBC (Bld) 57.5 % Normal 43.0-75.0 [facility] Comment on above: Performed By: #### C BC #### [facility] [address] [place] [address] Dr. Rivas Zhao Platelet mean volume (Bld) [Entitic vol] 11.8 fL Normal 9.5-13.5 [facility] Comment on above: Performed By: #### C BC #### [facility] [address] [place] [address] Dr. Rivas Zhao PLT 139 103/ul Critically low 150-450 [facility] Comment on above: Performed By: #### C BC #### [facility] [address] [place] [address] Dr. Rivas Zhao RBC 4.34 106/ul Normal 4.20-5.40 [facility] Comment on above: Performed By: #### C BC #### [facility] [address] [place] [address] Dr. Rivas Zhao WBC 7.0 103/ul Normal 4.0-11.0 [facility] Comment on above: Performed By: #### C BC #### [facility] [address] [place] [address] Dr. Rivas Zhao LIPASEon 03-31-2021 Lipase [Catalytic activity/Vol] 197.0 U/L Normal 23.0-300.0 [facility] Comment on above: Performed By: #### C MP, LIPA #### [facility] [address] [place] [address] Dr. Rivas Zhao PROF 14(COMP METB)on 021 Albumin [Mass/Vol] 3.6 g/dL Normal 3.5-5.0 [facility] Comment on above: Performed By: #### C MP, LIPA #### [facility] [address] [place] [address] Dr. Rivas Zhao Albumin/Globulin [Mass ratio] 0.9 {ratio} Normal [facility] Comment on above: Performed By: #### C MP, LIPA #### [facility] [address] [place] [address] Dr. Rivas Zhao ALP [Catalytic activity/Vol] 46 U/L Normal 38-126 [facility] Comment on above: Performed By: #### C MP, LIPA #### [facility] [address] [address] [address] Rivas Zhao ALT [Catalytic activity/Vol] 77 U/L Critically high 9-52 [facility] Comment on above: Performed By: #### C MP, LIPA #### [facility] [address] [address] [address] Rivas Zhao Anion gap [Moles/Vol] 13.9 mmol/L Normal [facility] Comment on above: Performed By: #### C MP, LIPA #### [facility] [address] [address] [address] Rivas Zhao AST [Catalytic activity/Vol] 67 U/L Critically high 14-36 [facility] Comment on above: Performed By: #### C MP, LIPA #### [facility] [address] [address] [address] Rivas Zhao Bilirubin [Mass/Vol] 0.7 mg/dL Normal 0.2-1.3 [facility] Comment on above: Performed By: #### C MP, LIPA #### [facility] [address] [address] [address] Rivas Zhao Calcium [Mass/Vol] 9.8 mg/dL Normal 8.4-10.2 [facility] Comment on above: Performed By: #### C MP, LIPA #### [facility] [address] [address] [address] Rivas Zhao Chloride [Moles/Vol] 103 mmol/L Normal 98-107 [facility] Comment on above: Performed By: #### C MP, LIPA #### [facility] [address] [address] [address] Rivas Zhao CO2 [Moles/Vol] 31.0 mmol/L Critically high 22.0-30.0 [facility] Comment on above: Performed By: #### C MP, LIPA #### [facility] [address] [address] [address] Rivas Zhao Creatinine [Mass/Vol] 0.95 mg/dL Normal 0.52-1.04 [facility] Comment on above: Performed By: #### C MP, LIPA #### [facility] [address] [place] [address] Dr. Rivas Zhao EGFR-AF BOTSWANAN 60 mL/min/1.73m2 Normal >=60 [facility] Comment on above: Performed By: #### C MP, LIPA #### [facility] [address] [place] [address] Dr. Rivas Zhao EGFR-NON AF BOTSWANAN =60 Normal >=60 [facility] Comment on above: Performed By: #### C MP, LIPA #### [facility] [address] [place] [address] Dr. Rivas Zhao Globulin (S) [Mass/Vol] 4.2 g/dL Normal [facility] Comment on above: Performed By: #### C MP, LIPA #### [facility] [address] [place] [address] Dr. Rivas Zhao Glucose [Mass/Vol] 95 mg/dL Normal 74-106 [facility] Comment on above: Performed By: #### C MP, LIPA #### [facility] [address] [place] [address] Dr. Rivas Zhao Potassium [Moles/Vol] 3.9 mmol/L Normal 3.4-5.0 [facility] Comment on above: Performed By: #### C MP, LIPA #### [facility] [address] [place] [address] Dr. Rivas Zhao Protein [Mass/Vol] 7.8 g/dL Normal 6.1-8.2 [facility] Comment on above: Performed By: #### C MP, LIPA #### [facility] [address] [place] [address] Dr. Rivas Zhao Sodium [Moles/Vol] 144 mmol/L Normal 137-145 [facility] Comment on above: Performed By: #### C MP, LIPA #### [facility] [address] [place] [address] Dr. Rivas Zhao Urea nitrogen [Mass/Vol] 20.0 mg/dL Critically high 7.0-17.0 [facility] Comment on above: Performed By: #### C SONIA PYLE #### [facility] [address] [id number] Rivas Zaho Urea nitrogen/Creatinine [Mass ratio] 21.1 mg/mg Normal [facility] Comment on above: Performed By: #### C SONIA PYLE #### [facility] [id number] Rivas Zhao XR ribs RT min 3V w CXR1V*on 06-09-2020 XR ribs RT min 3V w CXR1V* [facility] [place] [address] [place] [address] XRay Report Signed Patient: Fern Cardoso MR#: [id number] : 1960 Acct:[id number] Age/Sex: 59 / F ADM Date: 06/09/20 Loc: XDUCLY Room: Type: [facility] Attending Dr: Janene Munguia APRN, DIRECTOR MARKETING-C Ordering Provider: Janene Munguia APRN Date of [...] Garcia Jr., M.D.06/09/2020 11:19 AM Dictation Location: [place] [address] Transcribed By: JOSÉ LUIS 06/09/20 1119 Dictated By: Que Garcia Jr, MD 06/09/20 1112 Signed By: 06/09/20 1119 Normal [facility] Vital Signs Date Time Vital Sign Value Performing Clinician Facility 12-14-2024 10:49-0400 Body height 165.1 cm Esequiel Reno DPM Work Phone: [facility] 12-14-2024 10:49-0400 Body mass index (BMI) [Ratio] 57.91 kg/m2 Esequiel Brown DPM Work Phone: [facility] 12-14-2024 10:49-0400 Body weight 157.85 kg Esequiel Brown DPM Work Phone: [facility] 12-14-2024 10:49-0400 Respiratory rate 18 /min Esequiel Brown DPM Work Phone: [facility] 10-05-2024 10:37-0400 Body height 165.1 cm Esequiel Brown DPM Work Phone: [facility] 10-05-2024 10:37-0400 Body mass index (BMI) [Ratio] 57.91 kg/m2 Esequiel Brown DPM Work Phone: [facility] 10-05-2024 10:37-0400 Body weight 157.85 kg Esequiel Brown DPM Work Phone: [facility] 10-05-2024 10:37-0400 Respiratory rate 18 /min Esequiel Reno DPM Work Phone: [facility] 02-14-2024 10:00-0400 Body height 165.1 cm [facility] 02-14-2024 10:00-0400 Body mass index (BMI) [Ratio] 57 kg/m2 [facility] 02-14-2024 10:00-0400 Body weight 155.58 kg [facility] 02-14-2024 10:00-0400 Diastolic blood pressure 73 mm[Hg] [facility] 02-14-2024 10:00-0400 Heart rate 74 /min [facility] 02-14-2024 10:00-0400 Systolic blood pressure 108 mm[Hg] [facility] 01-24-2024 10:10-0400 Body height 165.1 cm [facility] 01-24-2024 10:10-0400 Body mass index (BMI) [Ratio] 56.3 kg/m2 [facility] 01-24-2024 10:10-0400 Body weight 153.54 kg [facility] 01-24-2024 10:10-0400 Diastolic blood pressure 70 mm[Hg] [facility] 01-24-2024 10:10-0400 Heart rate 71 /min [facility] 01-24-2024 10:10-0400 Respiratory rate 18 /min [facility] 01-24-2024 10:10-0400 SaO2% (BldA) [Mass fraction] 98 % [facility] 01-24-2024 10:10-0400 Systolic blood pressure 112 mm[Hg] [facility] 12-16-2023 11:29-0400 Body height 165.1 cm [facility] 12-16-2023 11:29-0400 Body mass index (BMI) [Ratio] 55 kg/m2 [facility] 12-16-2023 11:29-0400 Body weight 150.13 kg [facility] 12-16-2023 11:29-0400 Diastolic blood pressure 60 mm[Hg] [facility] 12-16-2023 11:29-0400 Heart rate 69 /min [facility] 12-16-2023 11:29-0400 Systolic blood pressure 86 mm[Hg] [facility] 10-14-2023 09:39-0400 Body height 165.1 cm [facility] 10-14-2023 09:39-0400 Body mass index (BMI) [Ratio] 54.6 kg/m2 [facility] 10-14-2023 09:39-0400 Body temperature 98.4 [degF] [facility] 10-14-2023 09:39-0400 Body weight 148.89 kg [facility] 10-14-2023 09:39-0400 Diastolic blood pressure 76 mm[Hg] [facility] 10-14-2023 09:39-0400 Heart rate 71 /min [facility] 10-14-2023 09:39-0400 Respiratory rate 18 /min [facility] 10-14-2023 09:39-0400 SaO2% (BldA) [Mass fraction] 97 % [facility] 10-14-2023 09:39-0400 Systolic blood pressure 114 mm[Hg] [facility] 08-12-2023 11:04-0400 Body height 165.1 cm [facility] 08-12-2023 11:04-0400 Body mass index (BMI) [Ratio] 55.2 kg/m2 [facility] 08-12-2023 11:04-0400 Body weight 150.59 kg [facility] 08-12-2023 11:04-0400 Diastolic blood pressure 67 mm[Hg] [facility] 08-12-2023 11:04-0400 Heart rate 67 /min [facility] 08-12-2023 11:04-0400 Systolic blood pressure 104 mm[Hg] [facility] 06-21-2023 15:41-0500 Body height 165.1 cm [facility] 06-21-2023 15:41-0500 Body mass index (BMI) [Ratio] 54.1 kg/m2 [facility] 06-21-2023 15:41-0500 Body weight 147.64 kg [facility] 06-21-2023 15:41-0500 Diastolic blood pressure 60 mm[Hg] [facility] 06-21-2023 15:41-0500 Heart rate 67 /min [facility] 06-21-2023 15:41-0500 SaO2% (BldA) [Mass fraction] 97 % [facility] 06-21-2023 15:41-0500 Systolic blood pressure 108 mm[Hg] [facility] 05-14-2023 09:30-0500 Body height 165.1 cm Sindi Benjamin Other [facility] Other 05-14-2023 09:30-0500 Body mass index (BMI) [Ratio] 57.24 kg/m2 Sindi Benjamin Other [facility] Other 05-14-2023 09:30-0500 Body weight 156.04 kg Sindi Benjamin Other [facility] Other 05-14-2023 09:30-0500 Diastolic blood pressure 69 mm[Hg] Sindi Benjamin Other [facility] Other 05-14-2023 09:30-0500 SaO2% (BldA) [Mass fraction] 97 % Sindi Benjamin Other [facility] Other 05-14-2023 09:30-0500 Systolic blood pressure 105 mm[Hg] Sindi Benjamin Other [facility] Other 03-05-2023 16:00-0500 Body height 165.1 cm Etta Gordon Other [facility] Other 03-05-2023 16:00-0500 Body mass index (BMI) [Ratio] 60.27 kg/m2 Etta Gordon Other [facility] Other 03-05-2023 16:00-0500 Body temperature 98.9 [degF] Etta Gordon Other [facility] Other 03-05-2023 16:00-0500 Body weight 164.29 kg Etta Gordon Other [facility] Other 03-05-2023 16:00-0500 Diastolic blood pressure 77 mm[Hg] Etta Gordon Other [facility] Other 03-05-2023 16:00-0500 Respiratory rate 18 /min Etta Gordon Other [facility] Other 03-05-2023 16:00-0500 SaO2% (BldA) [Mass fraction] 95 % Etta Gordon Other [facility] Other 03-05-2023 16:00-0500 Systolic blood pressure 125 mm[Hg] Etta Gordon Other [facility] Other Encounters Encounter Date Encounter Type Care Provider Facility Start: 01-16-2025 ambulatory Rafael Pickard MD Fac ility:[facility] [place] Start: 01-08-2025 ambulatory [facility] Start: 12-14-2024 End: 12-14-2024 Bamboo flowsheet Esequiel [...] underlying condition with diabetic polyneuropathy, unspecified whether mcfp insulin use (HCC); Pain due to onychomycosis of toenails of both feet; Venous insufficiency Start: 12-14-2024 End: 12-14-2024 ambulatory ESEQUIEL RENO Not Available Start: 12-06-2024 ambulatory [facility] Start: 12-05-2024 End: 12-05-2024 Bamboo flowsheet Aric Aaron PT [facility] Start: 12-05-2024 End: 12-05-2024 Bamboo flowsheet Aric Aaron PT [facility] Start: 12-05-2024 End: 12-05-2024 ambulatory Aric Aaron PT [facility] Comment on above: Cervicalgia (Primary Dx) Start: 11-29-2024 End: 11-29-2024 ambulatory BENY COOK [facility] Start: 11-15-2024 ambulatory [facility] Start: 10-31-2024 ambulatory [facility] Start: 10-05-2024 End: 10-05-2024 Bamboo flowsheet Esequiel [...] underlying condition with diabetic polyneuropathy, unspecified whether intermediate manager insulin use (HCC); Pain due to onychomycosis of toenails of both feet; Venous insufficiency Start: 10-05-2024 End: 10-05-2024 ambulatory ESEQUIEL RENO Not Available Start: 08-28-2024 ambulatory [facility] Start: 07-07-2024 ambulatory [facility] Start: 06-09-2024 End: 06-09-2024 ambulatory JAG MAGALLANES [facility] Start: 06-02-2024 ambulatory [facility] Start: 05-05-2024 ambulatory [facility] Start: 04-07-2024 ambulatory [facility] Start: 03-22-2024 ambulatory [facility] Start: 03-08-2024 ambulatory [facility] Start: 02-14-2024 End: 02-14-2024 ambulatory [facility] Work Phone: Start: 02-14-2024 End: 02-14-2024 Patient encounter procedure Replaced By [facility] Work Phone: Start: 02-11-2024 ambulatory [facility] Start: 02-07-2024 ambulatory [facility] Start: 01-28-2024 ambulatory [facility] Start: 01-26-2024 End: 01-26-2024 ambulatory BENY [facility] Start: 01-24-2024 End: 01-24-2024 ambulatory [facility] Work Phone: Start: 01-24-2024 End: 01-24-2024 Patient encounter procedure Replaced By [facility] Work Phone: Start: 01-24-2024 Non-patient / Non-visit Replaced By [facility] Work Phone: Start: 12-16-2023 End: 12-16-2023 ambulatory [facility] Work Phone: Start: 12-16-2023 End: 12-16-2023 Patient encounter procedure Replaced By [facility] Work Phone: Start: 10-19-2023 Non-patient / Non-visit Replaced By [facility] Work Phone: Start: 10-14-2023 End: 10-14-2023 ambulatory [facility] Work Phone: Start: 10-14-2023 End: 10-14-2023 Patient encounter procedure Replaced By [facility] Work Phone: Start: 08-28-2023 Non-patient / Non-visit Replaced By [facility] Work Phone: Start: 08-22-2023 Patient encounter status [facility] Start: 08-12-2023 End: 08-12-2023 ambulatory [facility] Work Phone: Start: 08-12-2023 End: 08-12-2023 Encounter for general adult medical examination without abnormal findings [facility] Start: 08-12-2023 End: 08-12-2023 Patient encounter procedure Replaced By [facility] Work Phone: Start: 07-09-2023 Non-patient / Non-visit Replaced By [facility] Work Phone: Start: 06-21-2023 End: 06-21-2023 Patient encounter procedure [facility] Work Phone: Start: 05-31-2023 End: 05-31-2023 ambulatory Etta Gordon Other [facility] Other Start: 05-31-2023 Telephone encounter Etta Gordon [facility] Start: 05-21-2023 End: 05-21-2023 ambulatory Sindi Benjamin Other [facility] Other Start: 05-21-2023 Telephone encounter Sindi Benjamin [facility] Start: 05-18-2023 Patient encounter procedure Replaced By [facility]- Start: 05-14-2023 End: 05-14-2023 ambulatory Sindi Benjamin Other [facility] Other Start: 05-14-2023 Office outpatient vi sit 25 minutes Sindi Benjamin [facility] Start: 04-30-2023 End: 04-30-2023 ambulatory Sindi Benjamin Other [facility] Other Start: 04-30-2023 Telephone encounter Sindi Benjamin [facility] Start: 04-01-2023 End: 04-01-2023 ambulatory Sindi Benjamin Other [facility] Other Start: 04-01-2023 Telephone encounter Sindi Benjamin [facility] Start: 03-05-2023 End: 03-05-2023 ambulatory Etta Gordon Other [employer] Other Start: 03-05-2023 Office outpatient vi sit 25 minutes Etta Gordon [facility] [place] Start: 02-26-2022 Encounter for genera l adult medical examination without abnormal findings DR SINDI BENJAMIN [facility] Start: 02-21-2022 End: 02-22-[address] ISNDI BENJAMIN Facility:[facility]1 Start: 02-21-2022 End: 02-22-2022 Encounter for general adult medical examination without abnormal findings DR SINDI BENJAMIN Facility:[facility] Start: 01-20-2022 Adult health examination Etta Augustler Other [facility] Other Start: 05-16-2021 End: 05-17-[address] [...] Gordon Other Start: 12-03-2014 Screening mammography A [facility] Gordon Other Start: 06-05-2013 History and physical examination, administrative Etta Gordon Other Start: 01-20-2013 Preoperative cardiov ascular examination Etta Gordon Other Laboratory test resu lt abnormal Etta Gordon Other Screening for malign ant neoplasm of breast Etta Gordon Other Plan of Treatment Date Care Activity Detail Author Start: 12-21-2024 End: 12-21-2024 ambulatory 12/21/2024 12:30 PM EDT Treatment [facility] [place] [facility] [address] [facility] [address] [place] [address] Aric Aaron PT [facility] [place] [facility] Start: 12-19-2024 End: 12-19-2024 ambulatory 12/19/2024 12:00 PM EDT Treatment [facility] [place] [facility] [address] [facility] [address] [place] [address] Brian Hill PTA [facility] [place] [facility] Start: 12-18-2024 Influenza vaccination Influenza Vacc ine (#1) [facility] Start: 12-14-2024 End: 12-14-2024 ambulatory 12/14/2024 11:30 AM EDT Treatment [facility] [place] [facility] [address] [facility] [address] [place] [address] Anabell Montague PTA [facility] [place] [facility] Start: 12-14-2024 End: 12-14-2024 Patient encounter procedure [facility] Comment on above: Hallux rigidus of le ft foot (Primary Dx); Hallux rigidus of right foot; Diabetes mellitus due to underlying condition with diabetic polyneuropathy, unspecified whether intermediate manager insulin use (HCC); Pain due to onychomycosis of toenails of both feet; Venous insufficiency Start: 12-11-2024 End: 12-11-2024 ambulatory 12/11/2024 2:30 PM EDT Treatment [facility] [place] [facility] [address] [facility] [address] [place] [address] Brian Hill PTA [facility] [place] [facility] Start: 12-07-2024 End: 12-07-2024 ambulatory 12/07/2024 12:00 PM EDT Treatment [facility] [place] [facility] [address] [facility] [address] [place] [address] Brian Hill PTA [facility] [place] [facility] Start: 12-05-2024 End: 12-05-2024 ambulatory 12/05/2024 12:30 PM EDT Evaluation [facility] [place] [facility] [address] [place] [address] [place] [address] Aric Aaron PT Cervicalgia (Primary Dx) [facility] [place] [facility] Comment on above: Cervicalgia (Primary Dx) Start: 10-05-2024 End: 10-05-2024 Patient encounter procedure 10/05/2024 10:20 AM EDT Office Visit [facility] [address] [place] [address] [place] [id number] Esequiel Reno, DPEma [address] [facility] [address] [place] [address] Arrived [facility] Comment on above: Arrived Start: 2001 Screening for malign ant neoplasm of breast Mammogram [facility] Start: 07-25-1991 Screening for malign ant neoplasm of cervix [facility] Start: 1982 Screening for malign ant neoplasm of cervix Pap Smear [facility] Start: 1961 Screening for malign ant neoplasm of colon [facility] MG Breast - bilatera l Screening [facility] US Lower extremity v ein - right [facility] XR Lumbar spine 2 or 3 Views [facility] Immunizations Immunization Date Immunization Notes Care Provider Fa cility 03-08-2024 influenza virus vacc ine, unspecified formulation Aric Aaron PT [facility] Healthcare Payers Date Payer Category Payer Private Health Insurance [employer] [id number] 2023 Unknown [id number] 1960 Unknown [id number] 2.1068 1961 Unknown [id number] [id number]. 2.593 1961 Unknown [id number] [id number]. 2.593 1961 Unknown [id number] [id number]. 2.593 1961 Unknown [id number] [id number]. 2.1259 1961 Unknown [id number] [id number]. 2.1259 1961 Unknown [id number] [id number]. 2.1259 1961 Unknown [id number] [id number]. 2.196 1959 Unknown [id number] Self-pay [id number] Unknown [id number] Social History Date Type Detail Facility Unknown if ever smoked [facility] [employer] Other Start: 10-05-2024 Sex Assigned At [employer] [facility] [employer] Other Start: 07-07-2018 End: 10-05-2024 Tobacco smoking status GAIS Never smoked tobacco (finding) [facility] Start: 1960 Sex Assigned At Female [facility] Tobacco smoking stat us GAIS Tobacco smoking consumption unknown [facility] Start: 09-30-2024 Gender identity Identifies as female gender (finding) [facility] Start: 09-30-2024 Sexual orientation Heterosexual (finding) [facility] Start: 10-05-2024 Tobacco use and exposure Smokeless tobacco non-user [facility] Start: 10-05-2024 End: 12-14-2024 Alcoholic beverage intake Lifetime non-drinker (finding) [facility] Start: 10-05-2024 History of Social function [facility] Medical Equipment Procedure Code Equipment [...] FDA Start: 07-04-2018 Clinical Notes 10-22-2020 to 01-07-2025 Esequiel Reno DPM - 12/14/2024 10:50 AM Anna Aaron, PT - 12/05/2024 12:30 PM Giorgi Reno DPM - 10/05/2024 10:20 AM EDT Note Date & Type Note Facility 01-07-2025 Note Please let her know overall things look ok on her ECHO. Pumping function is low normal at 50-55%. No significant valve abnormalities. Continue current medictions and follow-up as scheduled with Dr. Cronin. Thanks! [facility] 12-14-2024 History of Present illness Narrative Patient: [...] Strain: Low Risk (05/05/2023) Received from [facility] Overall Financial Resource Strain (CARDIA) Difficulty of Paying Living Expenses: Not hard at all Food Insecurity: No Food Insecurity (05/05/2023) Received from [facility] Hunger Vital Sign Within the past 12 months, you worried that your food would run out before you got the money to buy more.: Never true Ran Out of Food in the Last Year: Not on file Transportation Needs: No Transportation Needs (05/05/2023) Received from [facility] Transportation In the past 12 months, has lack of transportation kept you from medical appointments or from getting medications?: No Lack of Transportation (Non-Medical): Not on file Physical Activity: Not on file Stress: Not on file Social Connections: Not on file Intimate Partner Violence: Unknown (05/05/2023) Received from [facility] Humiliation, Afraid, Rape, and Kick questionnaire Fear of Current or Ex-Partner: No Emotionally Abused: Not on file Physically Abused: Not on file Sexually Abused: Not on file Housing Stability: Low Risk (05/05/2023) Received from [facility] Housing Stability Vital Sign Unable to Pay for Housing in the Last Year: Not on file Number of Places Lived in the Last Year: Not on file In the last 12 months, was there a time when you did not have a steady place to sleep or slept in a group home (including now)?: No ROS: Gastrointestinal: denies abdominal [...] palpableDP and PT pedal pulses NEURO: 5.07 Tur[place] Satish monofilament test intact to digits and [...] underlying condition with diabetic polyneuropathy, unspecified whether mcfp insulin use (HCC) 4. Pain due to [...] Esequiel Reno DPM documented in this encounter [facility] 12-05-2024 History of Present illness Narrative Physical [...] to her neck. 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 Precautions: bilateral TKA, universal Subjective: neck and upper back Pain: 2-10 Objective: PT Evaluation (12/05/2024) CERVICAL AROM: 33 [...] to be instructed in home exercise program. Binding Folder Machine Goals: To be met in 10 weeks [...] sign below. Date: documented in this encounter [facility] 11-29-2024 Note Patient is here toda y [...] irregular heartbeat (occasional racing heart while sitting). [facility] 11-29-2024 Note Cardiovascular Medic [facility] SUBJECTIVE Chief Complaint Patient presents with Congestive [...] diabetes obstructive sleep apnea was admitted to [facility] with shortness of breath and was noted [...] mellitus, without long-term current use of insulin (CMS/HCC) Past Medical History: Diagnosis Date Abnormal ECG Acute kidney injury Arrhythmia Atrial fibrillation (CMS/HCC) Atrial fibrillation (CMS/HCC) [...] mg) by mouth (more content not included)... [facility] 10-05-2024 History of Present illness Narrative [...] Strain: Low Risk (05/05/2023) Received from [facility] Overall Financial Resource Strain (CARDIA) Difficulty of Paying Living Expenses: Not hard at all Food Insecurity: No Food Insecurity (05/05/2023) Received from [facility] Hunger Vital Sign Within the past 12 months, you worried that your food would run out before you got the money to buy more.: Never true Ran Out of Food in the Last Year: Not on file Transportation Needs: No Transportation Needs (05/05/2023) Received from [facility] Transportation In the past 12 months, has lack of transportation kept you from medical appointments or from getting medications?: No Lack of Transportation (Non-Medical): Not on file Physical Activity: Not on file Stress: Not on file Social Connections: Not on file Intimate Partner Violence: Unknown (05/05/2023) Received from [facility] Humiliation, Afraid, Rape, and Kick questionnaire Fear of Current or Ex-Partner: No Emotionally Abused: Not on file Physically Abused: Not on file Sexually Abused: Not on file Housing Stability: Low Risk (05/05/2023) Received from [facility] Housing Stability Vital Sign Unable to Pay for Housing in the Last Year: Not on file Number of Places Lived in the Last Year: Not on file In the last 12 months, was there a time when you did not have a steady place to sleep or slept in a group home (including now)?: No ROS: Gastrointestinal: denies abdominal [...] palpableDP and PT pedal pulses NEURO: 5.07 [place] Satish monofilament test intact to digits and [...] underlying condition with diabetic polyneuropathy, unspecified whether intermediate manager insulin use (HCC) 4. Pain due to [...] edema. Discussed condition in detail. Recommendation for xluz-mmo-yjeowoj compression stockings at this time and may consider prescription stockings in the future. Discussed hallux rigidus condition and arthritis to the great toe joints and becomes worse may consider possible further treatment Patient to continue with oral anti - inflammatories as needed for pain and recommended OTC medications such as tylenol or Ibuprofen Esequiel Reno DPM documented in this encounter [facility] 06-09-2024 Note SUBJECTIVE Reason for Visit: Fern Cardoso is a 63 y.o. year old female patient being seen for 4-month follow-up visit. HPI: Fern Cardoso is a 62-year-old with a medical history of hypertension, diabetes, A-fib/flutter, and obstructive sleep apnea who was admitted to [facility] in April 2023 for with shortness of [...] ECG Acute kidney injury Arrhythmia Atrial fibrillation ([facility]/HCC) Atrial fibrillation ([facility]) CHF (congestive heart failure) ([facility]) Diabetes mellitus ([facility]) DVT (deep venous thrombosis) ([facility]) Hypertension Obesity BMI 55/58 PONV (postoperative nausea and vomiting) Sleep apnea Thrombocytopenia Past Surgical History: Procedure Laterality Date ABLATION OF DYSRHYTHMIC FOCUS CARDIAC CATHETERIZATION SECTION, CLASSIC OTHER SURGICAL HISTORY LOOP RECORDER INSERTION 07/12/23 REPLACEMENT TOTAL KNEE ONCOLOGIC Patient Active Problem List Diagnosis Chronic systolic congestive heart failure, NYHA class 2 ([facility]) Paroxysmal atrial fibrillation ([facility]/HCC) Grade II diastolic dysfunction Benign hypertensive cardiomyopathy with heart failure ([facility]) Anemia following surgery History of deep venous thrombosis Hypertension Hypokalemia Impaired mobility and activities of daily living Lack of stamina Morbid obesity with body mass index (BMI) of 50.0 to 59.9 in adult ([facility]) Postoperative pain Status post total right knee replacement Thrombocytopenia RAVI (obstructive sleep apnea) Overactive bladder Screening mammogram for breast cancer Type 2 diabetes mellitus with hyperglycemia ([facility]) PONV (postoperative nausea and vomiting) Lumbar back [...] soft. Musculoskeletal: Inspec (more content not included)... [facility] 06-09-2024 Note Patient here for 4 [...] All other systems reviewed and are negative. [facility] 01-26-2024 Note Cardiovascular Medic [facility] SUBJECTIVE Chief Complaint Patient [...] diabetes obstructive sleep apnea was admitted to [facility] with shortness of breath and was noted [...] evening meal., Dis (more content not included)... [facility] 01-26-2024 Note Patient here for 2 [...] All other systems reviewed and are negative. [facility] 05-14-2023 Evaluation note Encounter Date Diagnosis [...] forms for supplies and faxed back to [employer]. Pt states she will restart and become compliant w CPAP treatment. [facility] Other 11-17-2023 Evaluation note* Encounter Date Diagnosis [...] treatment plan. Patient left in stable condition [facility] [employer] Other 07-06-2021 Evaluation note* Diagnosis Onset Date Resolution Status Essential (primary) hypertension October 22, 2020 acute Paroxysmal atrial fibrillation acute Screening mammogram for breast cancer acute Type 2 diabetes mellitus with hyperglycemia acute [facility] Work Phone: Evaluation [facility]No [facility] [employer] Other Evaluation note* Diagnosis Onset Date Resolution Status Paroxysmal atrial fibrillation acute Screening mammogram for breast cancer acute Type 2 diabetes mellitus with hyperglycemia acute Wellness examination acute [facility] Work Phone: Evaluation note* Diagnosis Onset Date Resolution Status Pain in left foot noneactive Lumbar back pain acute [facility] Work Phone: Evaluation note* Diagnosis Onset Date Resolution Status Lumbar back pain acute Right leg swelling acute [facility] Work Phone: Evaluation note* Diagnosis Hallux rigidus of left foot- Primary Hallux rigidus of right foot Diabetes mellitus due to underlying condition with diabetic polyneuropathy, unspecified whether mcfp insulin use (HCC) Pain due to onychomycosis of toenails of both feet Venous insufficiency Unspecified venous (peripheral) insufficiency [facility] Diagnosis Cervicalgia- Primary Hallux rigidus of left foot- Primary Hallux rigidus of right foot Diabetes mellitus due to underlying condition with diabetic polyneuropathy, unspecified whether intermediate manager insulin use (HCC) Pain due to onychomycosis of toenails of both feet Venous insufficiency Unspecified venous (peripheral) insufficiency documented [facility] Diagnosis Hallux rigidus of left foot- Primary Hallux rigidus of right foot Diabetes mellitus due to underlying condition with diabetic polyneuropathy, unspecified whether mcfp insulin use (HCC) Pain due to onychomycosis of toenails of both feet Venous insufficiency Unspecified venous (peripheral) insufficiency documented [facility] Narrative - Reported* Type Description [...] knee arthroplasty 05/07 Hospitalization History see above [facility] Other Reason for visit Narrative* Rehabilitation - Outpatient (Routine) - Authorized Specialty Diagnoses / Procedures Referred By Contac t Referred To Contact Physical Therapy Diagnoses Cervicalgia Procedures [place] PHYSICAL THERAPY EVALUATION LOW COMPLEX 20 MINS [place] OFFICE/OUTPATIENT NEW HIGH MDM 60 MINUTES Rosa Guzman MD [address] [place] [phone] fax: Aric Aaron PT Referral ID Status Reason Start Date Expiration Date V isits Requested Visits Authorized [id number] Authorized 12/05/2024 05/21/2025 12 12 [facility] Healthcare Summary Purpose Family History No [...] section and content) DATE CREATED AUTHOR 08/28/2018 [facility] DATE CREATED AUTHOR AUTHOR'S ORGANIZ ATION 05/07/2021 [facility] DATE CREATED AUTHOR AUTHOR'S ORGANIZ ATION 09/19/2021 [facility] DATE CREATED AUTHOR AUTHOR'S ORGANIZ ATION 02/27/2022 [facility] DATE CREATED AUTHOR AUTHOR'S ORGANIZ ATION 12/16/2024 [facility] DATE CREATED AUTHOR AUTHOR'S ORGANIZ ATION 01/07/2025 [facility] DATE CREATED AUTHOR AUTHOR'S ORGANIZ ATION 01/09/2025 [facility] REASON FOR VISIT (unrecogniz ed section [...] 2024 Team Status: Inactive Member Role Status Dates Sindi Benjamin MD Primary Care Provide r, Attending Provider Active Start: January 24, 2024 End: January 24, 2024 Team Status: Inactive Member Role Status Dates [...] BE BASED ON THE PRIMARY CLINICAL RECORDS. [facility] [employer] [facility]. provides no warranty or guarantee of the accuracy or completeness of information in this document.
[2025-01-09 10:52] LABS: Alanine Aminotransferase 41 U/L (14-59); Albumin Globulin Ratio 0.7; Albumin Level 3.3 g/dL (3.4-5.0); Alkaline Phosphatase 53 U/L (46-116); Anion Gap 13.7; Aspartate Amino Transferase 39 U/L (15-37); Blood Urea Nitrogen 16.0 mg/dL (7.0-18.0); Calcium 8.9 mg/dL (8.5-10.1); Carbon Dioxide 26.0 mmol/L (21.0-32.0); Chloride 105 mmol/L (98-107); Cholesterol 151 mg/dL (<=200); Estimated GFR (African America 58 (>=60 mL/min/1.73m^2); Estimated GFR (Non-African Ame 48 (>=60 mL/min/1.73m^2); Globulin 4.6 g/dL; Glucose 139 mg/dL (74-106); HDL Cholesterol 50 mg/dL (40-60); Potassium 3.7 mmol/L (3.5-5.1); Sodium 141 mmol/L (136-145); Total Protein 7.9 g/dL (6.4-8.2); Triglycerides 104 mg/dL (<=150); VLDL CHOLESTEROL 20.8 mg/dL
== END 2025-01-09 10:06 | disposition home or self-care (01) ==
LOC: LAB 10:06
PROVIDERS: PCP Internal Medicine; Visit Provider Internal Medicine
DX: R73.03 Prediabetes (principal)
CPT/HCPCS: 36415; 80053; 80061

== ENCOUNTER 2025-01-19 10:54 | Outpatient (OUT) | payer OTHER, SELFPAY ==
--- NOTE | 2025-01-19 | XR_ITS ---
[place] [address] Patient Name: FERN CARDOSO MRN: [id number] date: 1960 Sex: F Assigned Patient Location: [facility] Current Patient Location: [facility] Accession/Order Number: [id number] Exam Date: 01/19/2025 11:25 Report Date: 01/19/2025 14:36 At the request of: HAROON EMMANUEL MD Procedure: XR cervical spine 2-3V CERVICAL SPINE 3 views: CLINICAL HISTORY: chronic neck pain COMPARISON: None FINDINGS: Vertebral body and disc space heights appear maintained. Mild endplate and facet joint degenerative change. No prevertebral soft tissue swelling. XR/XR cervical spine 2-3V IMPRESSION: PREDOMINANTLY ENDPLATE AND FACET JOINT DEGENERATIVE CHANGES WITHOUT SIGNIFICANT DISC HEIGHT LOSS. Impression dictated by: Jeffy Monae Jr., D.O. 01/19/2025 2:36 PM Dictation Location: [place] [address] Electronically authenticated by: [id number] Y Date: 01/19/2025 14:36
--- NOTE | 2025-01-19 | XR_ITS ---
The [address] [address] Patient Name: FERN CARDOSO MRN: [id number] date: 1960 Sex: F Assigned Patient Location: [facility] Current Patient Location: [facility] Accession/Order Number: [id number] Exam Date: 01/19/2025 11:25 Report Date: 01/19/2025 14:36 At the request of: HAROON EMMANUEL MD Procedure: XR thoracic spine 3V THORACIC SPINE - - 2 views CLINICAL HISTORY: chronic BACK PAIN COMPARISON: None FINDINGS: Scattered degenerative changes. Vertebral body heights appear maintained. Pedicles appear intact. XR/XR thoracic spine 3V IMPRESSION: DEGENERATIVE CHANGES INVOLVING THE THORACIC SPINE WITHOUT ACUTE BONY PROCESS. Impression dictated by: Jeffy Monae Jr., D.O. 01/19/2025 2:36 PM Dictation Location: [place] [address] Electronically authenticated by: [id number] Y Date: 01/19/2025 14:36
--- NOTE | 2025-01-19 | XR_ITS ---
The [place] [id number] Patient Name: FERN CARDOSO MRN: [id number] date: 1960 Sex: F Assigned Patient Location: [facility] Current Patient Location: [facility] Accession/Order Number: [id number] Exam Date: 01/19/2025 11:25 Report Date: 01/19/2025 14:37 At the request of: HAROON EMMANUEL MD Procedure: XR lumbar spine 2-3V LUMBAR SPINE - 3 views CLINICAL HISTORY: chronic back pain COMPARISON: Lumbar spine 12/16/2023 FINDINGS: Vertebral body heights appear maintained. Mild endplate and facet joint degenerative changes with mild diffuse disc space narrowing. SI joints demonstrate degenerative change. XR/XR lumbar spine 2-3V IMPRESSION: MILD DIFFUSE DEGENERATIVE DISC DISEASE. FINDINGS ARE SIMILAR TO THE PRIOR STUDY. Impression dictated by: Jeffy Monae Jr. DMaryOMary 01/19/2025 2:37 PM Dictation Location: [place] [address] Electronically authenticated by: [id number] Y Date: 01/19/2025 14:37
--- OUTSIDE RECORDS SUMMARY | 2025-01-19 11:02 | XMS_ITS | CCD ---
Author Organization [facility] Care Team Providers Care Senior Health Physics Technician Name Role Phone Hans Whiteside Attending Unavailable Snidi Benjamin Primary Care Unavaila ble BENJAMIN, DR [...] Referring Unavailable MILTON, JOSE LUIS Referring Unavailable MLITON, JOSE LUIS Referring Unavailable MILTON, JOSE LUIS [...] Translations: [PENICILLINS] Drug allergy (disorder) 02-07-20 13 [facility] Repository (11 sources) Ciprofloxacin Drug Allergy 08-12-19 Comment:nausea and diarrhea [facility] (11 sources) Penicillin G Drug Allergy 08-12-19 [facility] (12 sources) traMADol; Translations: [TRAMADOL] Drug Allergy 06-25-19 16 Unknown, [facility] (6 sources) Substance with penicillin structure and antibacterial mechanism of action (substance) Drug allergy 12-23-19 13 Unknown [facility] (6 sources) patient allergy list reviewed by nurse or physicia Propensity to adverse reactions 11-11-19 Comment:Done [facility] (6 sources) TraMADol & Dietary Manage Prod *ANALGESICS - OPIOI Propensity to adverse reactions 06-25-19 16 Unknown [facility] (6 sources) Allergies Reconciled Propensity to adverse reactions Unknown [facility] (1 source) diphenhydrAMINE; Translations: [DIPHENHYDRAMINE] Drug Allergy 10-28-19 [facility] Repository Medications Current Medications Medication Drug [...] Active -Hx Entry for 0 *Reorder from [facility] for eRx and Interaction Alerts* Feb, [...] Oral daily for 0 *Pick strength-form from [employer] for eRX* August, Active Start: 07-14-2018 End: [...] at bedtime for 0 *Pick strength-form from [employer] for eRX* Sep, Not-Taking/PRN take 1 tablet [...] Start: 09-26-2021 take 1 capsule by mo [facility] every eight hours Cephalexin 500 MG [...] 9:42am Start: 11-27-2021 [facility] Diclofenac Sodium 75MG Diclofenac Sodium 75MG, 1 Tablet Tablet twice a day # 0, 11/27/2021, No Refill. Active Oral twice a day for 0 *Pick strength-form from [employer] for eRX* Nov, Active Start: 06-22-2018 End: 07-14-2018 take 75 mg by mouth once daily in the morning Diclofenac Sodium Discontinued 75 MG PO Every morning June 22, 2018 1:00am July 14, 2018 12:23pm take 1 tablet by [facility] twice daily at mealtime Diclofenac Sodium [...] oral every evening for 0 *Reorder from [facility] for eRx and Interaction Alerts* Feb, Active [...] Range Facility Orders Onlyon 01-05-2025 Orders Only [id number] Fern Cardoso 1960 F Date Provider Department [place] 01/05/2025 [id number], HISTORICAL CARD [facility] Family History Problem Relation Age of Onset Heart attack Mother Stroke Mother Atrial fibrillation Father Heart attack Brother Stroke Brother Family Status - Relation Status Age at Mother Father Brother Normal [facility] Orders Onlyon 01-04-2025 Orders Only [id number] Last Cardosola Curtis 1960 F Date Provider Department Center 01/04/2025 [id number] REINOSO HVC CARD [facility] Family History Problem Relation Age of Onset Heart attack Mother Stroke Mother Atrial fibrillation Father Heart attack Brother Stroke Brother Family Status - Relation Status Age at Mother Father Brother Normal [facility] Orders Onlyon 12-02-2024 Orders Only [id number] Fern Cardoso 1960 F Date Provider Department Center 12/02/2024 [id number] CARTAGENA HVC CARD [facility] Family History Problem Relation Age of Onset Heart attack Mother Stroke Mother Atrial fibrillation Father Heart attack Brother Stroke Brother Family Status - Relation Status Age at Mother Father Brother Normal [facility] Office Visiton 11-29-2024 Follow-up visit [id number] Fern Cardoso 1960 F Date Provider Department Center 11/29/2024 BENY LAZAR CARD [facility] Family History Problem Relation Age of Onset Heart attack Mother Stroke Mother Atrial fibrillation Father Heart attack Brother Stroke Brother Family Status - Relation Status Age at Mother Father Brother Level of Service:45643 [place] OFFICE/OUTPATIENT ESTABLISHED MOD MDM 30 MIN Reason for Visit and Comments: Congestive Heart Failure [127] Atrial Fibrillation [80] Hypertension [448911] Normal [facility] Orders Onlyon 10-28-2024 Orders Only [id number] Fern Cardoso 1960 F Date Provider Department Center 10/28/2024 JOSE LUIS WILLIS HVC CARD [facility] Family History Problem Relation Age of Onset Heart attack Mother Stroke Mother Atrial fibrillation Father Heart attack Brother Stroke Brother Family Status - Relation Status Age at Mother Father Brother Normal [facility] Office Visiton 06-09-2024 Follow-up visit [id number] Fern Cardoso 1960 F Date Provider Department Center 06/09/2024 [id number], ADAM CARD [facility] Family History Problem Relation Age of Onset Heart attack Mother Stroke Mother Atrial fibrillation Father Heart attack Brother Stroke Brother Family Status - Relation Status Age at Mother Father Brother Level of Service:54847 [place] OFFICE/OUTPATIENT ESTABLISHED LOW MDM 20 MIN Normal [facility] Orders Onlyon 06-09-2024 Orders Only [id number] Fern Cardoso A 1960 F Date Provider Department Center 06/09/2024 [id number], ADAM [facility] CARD [facility] Family History Problem Relation Age of Onset Heart attack Mother Stroke Mother Atrial fibrillation Father Heart attack Brother Stroke Brother Family Status - Relation Status Age at Mother Father Brother Normal [facility] Orders Onlyon 05-15-2024 Orders Only [id number] Fern Cardoso A 1960 F Date Provider Department Center 05/15/2024 NICOLAS JEFFREY CARD [facility] Family History Problem Relation Age of Onset Heart attack Mother Stroke Mother Atrial fibrillation Father Heart attack Brother Stroke Brother Family Status - Relation Status Age at Mother Father Brother Normal [facility] Office Visiton 01-26-2024 Follow-up visit [id number] Fern Cardoso A 1960 F Date Provider Department Center 01/26/2024 BENY LAZAR CARD [facility] Family History Problem Relation Age of Onset Heart attack Mother Stroke Mother Atrial fibrillation Father Heart attack Brother Stroke Brother Family Status - Relation Status Age at Mother Father Brother Level of Service:71877 [place] OFFICE/OUTPATIENT ESTABLISHED MOD MDM 30 MIN Reason for Visit and Comments: Atrial Fibrillation [80] Normal [facility] Basophils Auto (Bld) [#/Vol] on 10-19-2023 Basophils (Bld) [#/Vol] 0.0 10 3/uL 0.0-0.1 [facility] Basophils/100 WBC Auto (Bld) on 10-19-2023 Basophils/100 WBC (Bld) 1.0 % 0.2-2.0 [facility] Eosinophils/100 WBC Auto (Bl d)on 10-19-2023 Eosinophils/100 WBC (Bld) 3.6 % 0.9-7.0 [facility] Erythrocyte distribution wid th Auto (RBC) [Ratio]on 10-19-2023 Erythrocyte distribution width (RBC) [Ratio] 13.6 % 11.0-15.0 [facility] Estimated glomerular filtrat ion rate (GFR) non- Americanon 10-19-2023 GFR/1.73 sq M.predicted among non-blacks MDRD (S/P/Bld) [Vol rate/Area] 41 mL/min/{1.73_m2} Low >=60 [facility] Hematocrit Auto (Bld) [Volum e fraction]on 10-19-2023 Hematocrit (Bld) [Volume fraction] 36.4 % 36.0-48.0 [facility] Hemoglobin [Mass/volume] in Bloodon 10-19-2023 Hemoglobin (Bld) [Mass/Vol] 11.5 g/dL Low 12.0-16.0 [facility] Laboratory - Chemistry and C hemistry - challengeon 10-19-2023 Calcium [Mass/Vol] 8.5 mg/dL 8.5-10.1 [facility] Chloride [Moles/Vol] 102 mmol/L 98-107 [facility] CO2 [Moles/Vol] 31.2 mmol/L 21.0-32.0 [facility] Creatinine [Mass/Vol] 1.31 mg/dL High 0.55-1.02 [facility] GFR/1.73 sq M.predicted MDRD (S/P/Bld) [Vol rate/Area] 50 mL/min/{1.73_m2} Low >=60 [facility] Glucose [Mass/Vol] 148 mg/dL High 74-106 [facility] Potassium [Moles/Vol] 3.8 mmol/L 3.5-5.1 [facility] Sodium [Moles/Vol] 142 mmol/L 136-145 [facility] Urea nitrogen [Mass/Vol] 22.0 mg/dL High 7.0-18.0 [facility] Urea nitrogen/Creatinine [Mass ratio] 16.8 mg/mg [facility] Laboratory - Hematology and Cell countson 10-19-2023 Immature granulocytes/100 WBC (Bld) 0.3 % 0.0-0.5 [facility] Leukocytes [#/volume] correc renato for nucleated erythrocytes in Blood by Automated counon 10-19-2023 WBC corrected for nucl RBC Auto (Bld) [#/Vol] 3.9 10 3/uL Low 4.0-11.0 [facility] Lymphocytes Auto (Bld) [#/Vo l]on 10-19-2023 Lymphocytes (Bld) [#/Vol] 1.0 10 3/uL Low 1.2-3.8 [facility] Lymphocytes/100 WBC Auto (Bl d)on 10-19-2023 Lymphocytes/100 WBC (Bld) 26.3 % 20.5-60.0 [facility] MCH Auto (RBC) [Entitic mass ]on 10-19-2023 MCH (RBC) [Entitic mass] 28.3 pg 26.7-34.0 [facility] MCHC Auto (RBC) [Mass/Vol]on 10-19-2023 MCHC (RBC) [Mass/Vol] 31.6 g/dL 29.9-35.2 [facility] MCV Auto (RBC) [Entitic vol] on 10-19-2023 MCV (RBC) [Entitic vol] 89.4 fL 81.0-99.0 [facility] Monocytes Auto (Bld) [#/Vol] on 10-19-2023 Monocytes (Bld) [#/Vol] 0.3 10 3/uL 0.3-0.8 [facility] Monocytes/100 WBC Auto (Bld) on 10-19-2023 Monocytes/100 WBC (Bld) 6.4 % 1.7-12.0 [facility] Neutrophils Auto (Bld) [#/Vo l]on 10-19-2023 Neutrophils (Bld) [#/Vol] 2.4 10 3/uL 1.4-6.5 [facility] Neutrophils/100 WBC Auto (Bl d)on 10-19-2023 Neutrophils/100 WBC (Bld) 62.4 % 43.0-75.0 [facility] No Panel Informationon 10-18 Eosinophils # (Auto) 0.1 10 3/uL 0.0-0.7 [facility] Immature Granulocyte # (Auto) 0.01 10 3/uL 0.00-0.03 [facility] Platelet mean volume Auto (B ld) [Entitic vol]on 10-19-2023 Platelet mean volume (Bld) [Entitic vol] 10.8 fL 9.5-13.5 [facility] Platelets Auto (Bld) [#/Vol] on 10-19-2023 Platelets (Bld) [#/Vol] 122 10 3/uL Low 150-450 [facility] RBC Auto (Bld) [#/Vol]on RBC (Bld) [#/Vol] 4.07 10 6/uL Low 4.20-5.40 [facility] Serum or plasma anion gap de terminationon 10-19-2023 Anion gap [Moles/Vol] 12.6 mmol/L [facility] Glucose mean value [Mass/vol ume] in Blood Estimated from glycated hemoglobinon 08-28-2023 Average glucose Estimated from glycated hemoglobin (Bld) [Mass/Vol] 111 mg/dL [facility] Laboratory - Hematology and Cell countson 08-28-2023 HbA1c (Bld) [Mass fraction] 5.5 % 4.5-6.2 [facility] Comment on above: ADA RECOMMENDED LIMI T 4.0 - 6.0ADA THERAPEUTIC TARGET < 7.0ACTION SUGGESTED> 7.0 Basophils Auto (Bld) [#/Vol] on 07-09-2023 Basophils (Bld) [#/Vol] 0.1 10 3/uL 0.0-0.1 [facility] Basophils/100 WBC Auto (Bld) on 07-09-2023 Basophils/100 WBC (Bld) 1.2 % 0.2-2.0 [facility] Eosinophils/100 WBC Auto (Bl d)on 07-09-2023 Eosinophils/100 WBC (Bld) 4.3 % 0.9-7.0 [facility] Erythrocyte distribution wid th Auto (RBC) [Ratio]on 07-09-2023 Erythrocyte distribution width (RBC) [Ratio] 15.3 % 11.0-15.0 [facility] Estimated glomerular filtrat ion rate (GFR) non- Americanon 07-09-2023 GFR/1.73 sq M.predicted among non-blacks MDRD (S/P/Bld) [Vol rate/Area] 43 mL/min/{1.73_m2} >=60 [facility] Hematocrit Auto (Bld) [Volum e fraction]on 07-09-2023 Hematocrit (Bld) [Volume fraction] 40.3 % 36.0-48.0 [facility] Hemoglobin [Mass/volume] in Bloodon 07-09-2023 Hemoglobin (Bld) [Mass/Vol] 12.8 g/dL 12.0-16.0 [facility] Laboratory - Chemistry and C hemistry - challengeon 07-09-2023 Calcium [Mass/Vol] 8.9 mg/dL 8.5-10.1 [facility] Chloride [Moles/Vol] 102 mmol/L 98-107 [facility] CO2 [Moles/Vol] 30.1 mmol/L 21.0-32.0 [facility] Creatinine [Mass/Vol] 1.27 mg/dL 0.55-1.02 [facility] GFR/1.73 sq M.predicted MDRD (S/P/Bld) [Vol rate/Area] 52 mL/min/{1.73_m2} >=60 [facility] Glucose [Mass/Vol] 114 mg/dL 74-106 [facility] Potassium [Moles/Vol] 3.7 mmol/L 3.5-5.1 [facility] Sodium [Moles/Vol] 142 mmol/L 136-145 [facility] Urea nitrogen [Mass/Vol] 18.0 mg/dL 7.0-18.0 [facility] Urea nitrogen/Creatinine [Mass ratio] 14.2 mg/mg [facility] Laboratory - Hematology and Cell countson 07-09-2023 Immature granulocytes/100 WBC (Bld) 0.2 % 0.0-0.5 [facility] Leukocytes [#/volume] correc renato for nucleated erythrocytes in Blood by Automated counon 07-09-2023 WBC corrected for nucl RBC Auto (Bld) [#/Vol] 4.2 10 3/uL 4.0-11.0 [facility] Lymphocytes Auto (Bld) [#/Vo l]on 07-09-2023 Lymphocytes (Bld) [#/Vol] 1.5 10 3/uL 1.2-3.8 [facility] Lymphocytes/100 WBC Auto (Bl d)on 07-09-2023 Lymphocytes/100 WBC (Bld) 34.8 % 20.5-60.0 [facility] MCH Auto (RBC) [Entitic mass ]on 07-09-2023 MCH (RBC) [Entitic mass] 29.0 pg 26.7-34.0 [facility] MCHC Auto (RBC) [Mass/Vol]on 07-09-2023 MCHC (RBC) [Mass/Vol] 31.8 g/dL 29.9-35.2 [facility] MCV Auto (RBC) [Entitic vol] on 07-09-2023 MCV (RBC) [Entitic vol] 91.4 fL 81.0-99.0 [facility] Monocytes Auto (Bld) [#/Vol] on 07-09-2023 Monocytes (Bld) [#/Vol] 0.3 10 3/uL 0.3-0.8 [facility] Monocytes/100 WBC Auto (Bld) on 07-09-2023 Monocytes/100 WBC (Bld) 7.6 % 1.7-12.0 [facility] Neutrophils Auto (Bld) [#/Vo l]on 07-09-2023 Neutrophils (Bld) [#/Vol] 2.2 10 3/uL 1.4-6.5 [facility] Neutrophils/100 WBC Auto (Bl d)on 07-09-2023 Neutrophils/100 WBC (Bld) 51.9 % 43.0-75.0 [facility] No Panel Informationon 07-08 Eosinophils # (Auto) 0.2 10 3/uL 0.0-0.7 [facility] Immature Granulocyte # (Auto) 0.01 10 3/uL 0.00-0.03 [facility] Platelet mean volume Auto (B ld) [Entitic vol]on 07-09-2023 Platelet mean volume (Bld) [Entitic vol] 12.4 fL 9.5-13.5 [facility] Platelets Auto (Bld) [#/Vol] on 07-09-2023 Platelets (Bld) [#/Vol] 108 10 3/uL 150-450 [facility] RBC Auto (Bld) [#/Vol]on RBC (Bld) [#/Vol] 4.41 10 6/uL 4.20-5.40 [facility] Serum or plasma anion gap de terminationon 07-09-2023 Anion gap [Moles/Vol] 13.6 mmol/L [facility] CBC AUTO DIFFon 02-21-2022 BASO # 0.0 103/ul Normal 0.0-0.1 [facility] Comment on above: Performed By: #### C BC #### [facility] [address] [place] [address] Dr. Rivas Zhao Basophils/100 WBC (Bld) 0.7 % Normal 0.2-2.0 [facility] Comment on above: Performed By: #### C BC #### [facility] [address] [place] [address] Dr. Rivas Zhao EO # 0.2 103/ul Normal 0.0-0.7 [facility] Comment on above: Performed By: #### C BC #### [facility] [address] [place] [address] Dr. Rivas Zhao Eosinophils/100 WBC (Bld) 3.4 % Normal 0.9-7.0 [facility] Comment on above: Performed By: #### C BC #### [facility] [address] [place] [address] Dr. Rivas Zhao Erythrocyte distribution width (RBC) [Ratio] 14.8 % Normal 11.0-15.0 [facility] Comment on above: Performed By: #### C BC #### [facility] [address] [place] [address] Dr. Rivas Zhao Hematocrit (Bld) [Volume fraction] 38.4 % Normal 36.0-48.0 [facility] Comment on above: Performed By: #### C BC #### [facility] [address] [place] [address] Dr. Rivas Zhao Hemoglobin (Bld) [Mass/Vol] 12.7 g/dL Normal 12.0-16.0 [facility] Comment on above: Performed By: #### C BC #### [facility] [address] [place] [address] Dr. Rivas Zhao IG # 0.01 10e3/ul Normal 0.00-0.03 [facility] Comment on above: Performed By: #### C BC #### [facility] [address] [place] [address] Dr. Rivas Zhao IG % 0.2 % Normal 0.0-0.5 [facility] Comment on above: Performed By: #### C BC #### [facility] [address] [place] [address] Dr. Rivas Zhao LYMPH # 1.5 103/ul Normal 1.2-3.8 [facility] Comment on above: Performed By: #### C BC #### [facility] [address] [place] [address] Dr. Rivas Zhao Lymphocytes/100 WBC (Bld) 34.9 % Normal 20.5-60.0 [facility] Comment on above: Performed By: #### C BC #### [facility] [address] [place] [address] Dr. Rivas Zhao MANUAL DIFF REQ NO Normal [facility] Comment on above: Performed By: #### C BC #### [facility] [address] [place] [address] Dr. Rivas Zhao MCH (RBC) [Entitic mass] 30.2 pg Normal 26.7-34.0 [facility] Comment on above: Performed By: #### C BC #### [facility] [address] [place] [address] Dr. Rivas Zhao MCHC (RBC) [Mass/Vol] 33.1 g/dL Normal 29.9-35.2 [facility] Comment on above: Performed By: #### C BC #### [facility] [address] [place] [address] Dr. Rivas Zhao MCV (RBC) [Entitic vol] 91.2 fL Normal 81.0-99.0 [facility] Comment on above: Performed By: #### C BC #### [facility] [address] [address] [address] Rivas Zhao MONO # 0.3 103/ul Normal 0.3-0.8 [facility] Comment on above: Performed By: #### C BC #### [facility] [address] [address] [address] Rivas Zhao Monocytes/100 WBC (Bld) 5.9 % Normal 1.7-12.0 [facility] Comment on above: Performed By: #### C BC #### [facility] [address] [address] [address] Rivas Zhao NEUT # 2.4 103/ul Normal 1.4-6.5 [facility] Comment on above: Performed By: #### C BC #### [facility] [address] [place] [address] Dr. Rivas Zhao Neutrophils/100 WBC (Bld) 54.9 % Normal 43.0-75.0 [facility] Comment on above: Performed By: #### C BC #### [facility] [address] [place] [address] Dr. Rivas Zhao Platelet mean volume (Bld) [Entitic vol] 11.9 fL Normal 9.5-13.5 [facility] Comment on above: Performed By: #### C BC #### [facility] [address] [place] [address] Dr. Rivas Zhao PLT 107 103/ul Critically low 150-450 [facility] Comment on above: Performed By: #### C BC #### [facility] [address] [place] [address] Dr. Rivas Zhao RBC 4.21 106/ul Normal 4.20-5.40 [facility] Comment on above: Performed By: #### C BC #### [facility] [address] [address] [address] Rivas Zhao WBC 4.4 103/ul Normal 4.0-11.0 [facility] Comment on above: Performed By: #### C BC #### [facility] [address] [place] [address] Dr. Rivas Zhao GLYCOHEMOGLOBIN A1Con 2021 ADA RECOMMENDATION SEE BELOW Normal [facility] Comment on above: Result Comment: ADA RECOMMENDED LIMIT 4.0 - 6.0 ADA THERAPEUTIC TARGET < 7.0 ACTION SUGGESTED > 7.0 Performed By: #### A 1C #### [facility] [address] [address] [address] Rivas Zhao Glucose [Mass/Vol] 117 mg/dL Normal [facility] Comment on above: Performed By: #### A 1C #### [facility] [address] [place] [address] Dr. Rivas Zhao HbA1c (Bld) [Mass fraction] 5.7 % Normal 4.5-6.2 [facility] Comment on above: Performed By: #### A 1C #### [facility] [address] [place] [address] Dr. Rivas Zhao LIPID PROFILEon 02-21-2022 CHOL-HDL RATIO NORM SEE BELOW Normal [facility] Comment on above: Result Comment: 3.3 - 4.4 LOW RISK 4.4 - 7.1 AVERAGE RISK 7.1 - 11.0 MODERATE RISK >11.0 HIGH RISK Performed By: #### L IPID, CMP #### [facility] [address] [place] [address] Dr. Rivas Zhao Cholesterol [Mass/Vol] 160 mg/dL Normal <=200 [facility] Comment on above: Performed By: #### L IPID, CMP #### [facility] [address] [place] [address] Dr. Rivas Zhao Cholesterol in HDL [Mass/Vol] 49 mg/dL Normal 40-60 [facility] Comment on above: Performed By: #### L IPID, CMP #### [facility] [address] [place] [address] Dr. Rivas Zhao Cholesterol in LDL [Mass/Vol] 96.0 mg/dL Normal [facility] Comment on above: Performed By: #### L IPID, CMP #### [facility] [address] [place] [address] Dr. Rivas Zhao Cholesterol.total/Cho lesterol in HDL [Mass ratio] 3.3 {ratio} Normal [facility] Comment on above: Performed By: #### L IPID, CMP #### [facility] [address] [place] [address] Dr. Rivas Zhao HDL NORMAL > or = 60 mg/dl - LO W CARDIOVASCULAR RISK <40 mg/dl - HIGH CARDIOVASCULAR RISK Normal [facility] Comment on above: Performed By: #### L IPID, CMP #### [facility] [address] [place] [address] Dr. Rivas Zhao LDL CALC NORMAL SEE BELOW Normal [facility] Comment on above: Result Comment: <100 mg/dl OPTIMAL 100 - 129 mg/dl NEAR OR ABOVE OPTIMAL 130 - 159 mg/dl BORDERLINE HIGH 160 - 189 mg/dl HIGH >190 mg/dl VERY HIGH Performed By: #### L IPID, CMP #### [facility] [address] [place] [address] Dr. Rivas Zhao Triglyceride [Mass/Vol] 75 mg/dL Normal <=150 [facility] Comment on above: Performed By: #### L IPID, CMP #### [facility] [address] [place] [address] Dr. Rivas Zhao VLDL CALC 15.0 mg/dL Normal [facility] Comment on above: Performed By: #### L IPID, CMP #### [facility] [address] [place] [address] Dr. Rivas Zhao PROF 14(COMP METB)on 022 Albumin [Mass/Vol] 3.0 g/dL Critically low 3.4-5.0 [facility] Comment on above: Performed By: #### L IPID, CMP #### [facility] [address] [place] [address] Dr. Rivas Zhao Albumin/Globulin [Mass ratio] 0.6 {ratio} Normal [facility] Comment on above: Performed By: #### L IPID, CMP #### [facility] [address] [place] [address] Dr. Rivas Zhoa ALP [Catalytic activity/Vol] 74 U/L Normal 46-116 [facility] Comment on above: Performed By: #### L IPID, CMP #### [facility] [address] [place] [address] Dr. Rivas Zhao ALT [Catalytic activity/Vol] 59 U/L Normal 14-59 [facility] Comment on above: Performed By: #### L IPID, CMP #### [facility] [address] [address] [address] Rivas Zhao Anion gap [Moles/Vol] 9.2 mmol/L Normal [facility] Comment on above: Performed By: #### L IPID, CMP #### [facility] [address] [place] [address] Dr. Rivas Zhao AST [Catalytic activity/Vol] 65 U/L Critically high 15-37 [facility] Comment on above: Performed By: #### L IPID, CMP #### [facility] [address] [place] [address] Dr. Rivas Zhao Bilirubin [Mass/Vol] 1.1 mg/dL Critically high 0.2-1.0 [facility] Comment on above: Performed By: #### L IPID, CMP #### [facility] [address] [place] [address] Dr. Rivas Zhao Calcium [Mass/Vol] 8.8 mg/dL Normal 8.5-10.1 [facility] Comment on above: Performed By: #### L IPID, CMP #### [facility] [address] [place] [address] Dr. Rivas Zhao Chloride [Moles/Vol] 102 mmol/L Normal 98-107 [facility] Comment on above: Performed By: #### L IPID, CMP #### [facility] [address] [place] [address] Dr. Rivas Zhao CO2 [Moles/Vol] 32.5 mmol/L Critically high 21.0-32.0 [facility] Comment on above: Performed By: #### L IPID, CMP #### [facility] [address] [place] [address] Dr. Rivas Zhao Creatinine [Mass/Vol] 0.76 mg/dL Normal 0.55-1.02 [facility] Comment on above: Performed By: #### L IPID, CMP #### [facility] [address] [place] [address] Dr. Rivas Zhao EGFR-AF [place]IZ[place] >60 Normal >=60 [facility] Comment on above: Performed By: #### L IPID, CMP #### [facility] [address] [address] [address] Rivas Zhao EGFR-NON AF CITIZEN OF [place] >60 Normal >=60 [facility] Comment on above: Performed By: #### L IPID, CMP #### [facility] [address] [place] [address] Dr. Rivas Zhao Globulin (S) [Mass/Vol] 4.7 g/dL Normal [facility] Comment on above: Performed By: #### L IPID, CMP #### [facility] [address] [place] [address] Dr. Rivas Zhao Glucose [Mass/Vol] 109 mg/dL Critically high 74-106 [facility] Comment on above: Performed By: #### L IPID, CMP #### [facility] [address] [place] [address] Dr. Rivas Zhao Potassium [Moles/Vol] 3.7 mmol/L Normal 3.5-5.1 [facility] Comment on above: Performed By: #### L IPID, CMP #### [facility] [address] [place] [address] Dr. Rivas Zhao Protein [Mass/Vol] 7.7 g/dL Normal 6.4-8.2 [facility] Comment on above: Performed By: #### L IPID, CMP #### [facility] [address] [place] [address] Dr. Rivas Zhao Sodium [Moles/Vol] 140 mmol/L Normal 136-145 [facility] Comment on above: Performed By: #### L IPID, CMP #### [facility] [address] [place] [address] Dr. Rivas Zhao Urea nitrogen [Mass/Vol] 12.0 mg/dL Normal 7.0-18.0 [facility] Comment on above: Performed By: #### L IPID, CMP #### [facility] [address] [address] [address] Rivas Zhao Urea nitrogen/Creatinine [Mass ratio] 15.8 mg/mg Normal [facility] Comment on above: Performed By: #### L IPID, CMP #### [facility] [address] [address] [address] Rivas Zhao Patient Correspondenceon Patient Correspondence [id number]. 00CD:127 Normal [facility] Physician Referral [id number]#1. 00CD:127 Normal [facility] Patient Correspondence [id number]. 00CD:127 Normal [facility] Physician Referralon 022 Physician Referral [id number] .00CD:127 Normal [facility] MG MAMM DIAGNOSTIC 3D GREG CA Don 05-16-2021 MG MAMM DIAGNOSTIC 3D GREG CAD Patient: FERN CARDOSO Exam Date: 05/16/2021 : 1960 Gender:F Ordering : DR SINDI BENJAMIN M.D. Admission #: [id number] Family : Order #: [id number] CLICK HERE TO VIEW EXAM RADIOLOGY REPORT [...] with breast cancer at age 59. LOCATION: [facility] BREAST COMPOSITION: Scattered areas fibroglandular density. FINDINGS: [...] M.D. on 05/16/2021 at 15:27 Normal [facility] US BREAST GREG LIMITEDon -2 US BREAST GREG LIMITED Patient: FERN CARDOSO Exam Date: 05/16/2021 : 1960 Gender:F Ordering : DR SINDI BENJAMIN M.D. Admission #: [id number] Family : Order #: [id number] CLICK HERE TO VIEW EXAM RADIOLOGY REPORT [...] breast cancer at age 59. LOCATION: [facility] BREAST COMPOSITION: Scattered areas fibroglandular [...] M.D. on 05/16/2021 at 15:27 Normal [facility] TRANSGLUTAMINASE IGAon 04-02 t-Transglutaminase (tTG) IgA <2 Normal 0-3 [facility] Comment on above: Result Comment: Nega tive 0 - 3 Weak Positive 4 - 10 Positive >10 . Tissue Transglutaminase (tTG) has been identified as the endomysial antigen. Studies have demonstr- ated that endomysial IgA antibodies have over 99% specificity for gluten sensitive enteropathy. Performed By: #### T FRANCESCA #### [facility] [address] [address] [address] Rivas Zhao CBC AUTO DIFFon 03-31-2021 BASO # 0.1 103/ul Normal 0.0-0.1 [facility] Comment on above: Performed By: #### C BC #### [facility] [address] [place], [place] [address] Dr. Rivas Zhao Basophils/100 WBC (Bld) 0.9 % Normal 0.2-2.0 [facility] Comment on above: Performed By: #### C BC #### [facility] [address] [place], [place] [address] Dr. Rivas Zhao EO # 0.2 103/ul Normal 0.0-0.7 [facility] Comment on above: Performed By: #### C BC #### [facility] [address] [place] [address] Dr. Rivas Zhao Eosinophils/100 WBC (Bld) 2.3 % Normal 0.9-7.0 [facility] Comment on above: Performed By: #### C BC #### [facility] [address] [place] [address] Dr. Rivas Zhao Erythrocyte distribution width (RBC) [Ratio] 14.5 % Normal 11.0-15.0 [facility] Comment on above: Performed By: #### C BC #### [facility] [address] [place] [address] Dr. Rivas Zhao Hematocrit (Bld) [Volume fraction] 39.9 % Normal 36.0-48.0 [facility] Comment on above: Performed By: #### C BC #### [facility] [address] [place] [address] Dr. Rivas Zhao Hemoglobin (Bld) [Mass/Vol] 13.1 g/dL Normal 12.0-16.0 [facility] Comment on above: Performed By: #### C BC #### [facility] [address] [place] [address] Dr. Rivas Zhao IG # 0.02 10e3/ul Normal 0.00-0.03 [facility] Comment on above: Performed By: #### C BC #### [facility] [address] [place] [address] Dr. Rivas Zhao IG % 0.3 % Normal 0.0-0.5 [facility] Comment on above: Performed By: #### C BC #### [facility] [address] [place] [address] Dr. Rivas Zhao LYMPH # 2.2 103/ul Normal 1.2-3.8 [facility] Comment on above: Performed By: #### C BC #### [facility] [address] [place] [address] Dr. Rivas Zhao Lymphocytes/100 WBC (Bld) 31.8 % Normal 20.5-60.0 [facility] Comment on above: Performed By: #### C BC #### [facility] [address] [place] [address] Dr. Rivas Zhao MANUAL DIFF REQ NO Normal [facility] Comment on above: Performed By: #### C BC #### [facility] [address] [place] [address] Dr. Rivas Zhao MCH (RBC) [Entitic mass] 30.2 pg Normal 26.7-34.0 [facility] Comment on above: Performed By: #### C BC #### [facility] [address] [place] [address] Dr. Rivas Zhao MCHC (RBC) [Mass/Vol] 32.8 g/dL Normal 29.9-35.2 [facility] Comment on above: Performed By: #### C BC #### [facility] [address] [place] [address] Dr. Rivas Zhao MCV (RBC) [Entitic vol] 91.9 fL Normal 81.0-99.0 [facility] Comment on above: Performed By: #### C BC #### [facility] [address] [place] [address] Dr. Rivas Zhao MONO # 0.5 103/ul Normal 0.3-0.8 [facility] Comment on above: Performed By: #### C BC #### [facility] [address] [place] [address] Dr. Rivas Zhao Monocytes/100 WBC (Bld) 7.2 % Normal 1.7-12.0 [facility] Comment on above: Performed By: #### C BC #### [facility] [address] [place] [address] Dr. Rivas Zhao NEUT # 4.0 103/ul Normal 1.4-6.5 [facility] Comment on above: Performed By: #### C BC #### [facility] [address] [place] [address] Dr. Rivas Zhao Neutrophils/100 WBC (Bld) 57.5 % Normal 43.0-75.0 [facility] Comment on above: Performed By: #### C BC #### [facility] [address] [place] [address] Dr. Rivas Zhao Platelet mean volume (Bld) [Entitic vol] 11.8 fL Normal 9.5-13.5 [facility] Comment on above: Performed By: #### C BC #### [facility] [address] [place] [address] Dr. Rivas Zhao PLT 139 103/ul Critically low 150-450 [facility] Comment on above: Performed By: #### C BC #### [facility] [address] [place] [address] Dr. Rivas Zhao RBC 4.34 106/ul Normal 4.20-5.40 [facility] Comment on above: Performed By: #### C BC #### [facility] [address] [place] [address] Dr. Rivas Zhao WBC 7.0 103/ul Normal 4.0-11.0 [facility] Comment on above: Performed By: #### C BC #### [facility] [address] [place] [address] Dr. Rivas Zhao LIPASEon 03-31-2021 Lipase [Catalytic activity/Vol] 197.0 U/L Normal 23.0-300.0 [facility] Comment on above: Performed By: #### C MP, LIPA #### [facility] [address] [place] [address] Dr. Rivas Zhao PROF 14(COMP METB)on 021 Albumin [Mass/Vol] 3.6 g/dL Normal 3.5-5.0 [facility] Comment on above: Performed By: #### C MP, LIPA #### [facility] [address] [place] [address] Dr. Rivas Zhao Albumin/Globulin [Mass ratio] 0.9 {ratio} Normal [facility] Comment on above: Performed By: #### C MP, LIPA #### [facility] [address] [place] [address] Dr. Rivas Zhao ALP [Catalytic activity/Vol] 46 U/L Normal 38-126 [facility] Comment on above: Performed By: #### C MP, LIPA #### [facility] [address] [address] [address] Rivas Zhao ALT [Catalytic activity/Vol] 77 U/L Critically high 9-52 [facility] Comment on above: Performed By: #### C MP, LIPA #### [facility] [address] [address] [address] Rivas Zhao Anion gap [Moles/Vol] 13.9 mmol/L Normal [facility] Comment on above: Performed By: #### C MP, LIPA #### [facility] [address] [address] [address] Rivas Zhao AST [Catalytic activity/Vol] 67 U/L Critically high 14-36 [facility] Comment on above: Performed By: #### C MP, LIPA #### [facility] [address] [address] [address] Rivas Zhao Bilirubin [Mass/Vol] 0.7 mg/dL Normal 0.2-1.3 [facility] Comment on above: Performed By: #### C MP, LIPA #### [facility] [address] [address] [address] Rivas Zhao Calcium [Mass/Vol] 9.8 mg/dL Normal 8.4-10.2 [facility] Comment on above: Performed By: #### C MP, LIPA #### [facility] [address] [address] [address] Rivas Zhao Chloride [Moles/Vol] 103 mmol/L Normal 98-107 [facility] Comment on above: Performed By: #### C MP, LIPA #### [facility] [address] [address] [address] Rivas Zhao CO2 [Moles/Vol] 31.0 mmol/L Critically high 22.0-30.0 [facility] Comment on above: Performed By: #### C MP, LIPA #### [facility] [address] [address] [address] Rivas Zhao Creatinine [Mass/Vol] 0.95 mg/dL Normal 0.52-1.04 [facility] Comment on above: Performed By: #### C MP, LIPA #### [facility] [address] [place] [address] Dr. Rivas Zhao EGFR-AF [place] 60 mL/min/1.73m2 Normal >=60 [facility] Comment on above: Performed By: #### C MP, LIPA #### [facility] [address] [place] [address] Dr. Rivas Zhao EGFR-NON AF [place]IZ[place] =60 Normal >=60 [facility] Comment on above: Performed By: #### C MP, LIPA #### [facility] [address] [place] [address] Dr. Rivas Zhao Globulin (S) [Mass/Vol] 4.2 g/dL Normal [facility] Comment on above: Performed By: #### C MP, LIPA #### [facility] [address] [place] [address] Dr. Rivas Zhao Glucose [Mass/Vol] 95 mg/dL Normal 74-106 [facility] Comment on above: Performed By: #### C MP, LIPA #### [facility] [address] [place] [address] Dr. Rivas Zhao Potassium [Moles/Vol] 3.9 mmol/L Normal 3.4-5.0 [facility] Comment on above: Performed By: #### C MP, LIPA #### [facility] [address] [place] [address] Dr. Rivas Zhao Protein [Mass/Vol] 7.8 g/dL Normal 6.1-8.2 [facility] Comment on above: Performed By: #### C MP, LIPA #### [facility] [address] [place] [address] Dr. Rivas Zhao Sodium [Moles/Vol] 144 mmol/L Normal 137-145 [facility] Comment on above: Performed By: #### C MP, LIPA #### [facility] [address] [place] [address] Dr. Rivas Zhao Urea nitrogen [Mass/Vol] 20.0 mg/dL Critically high 7.0-17.0 [facility] Comment on above: Performed By: #### C SONIA PYLE #### [facility] [id number] Rivas Zhao Urea nitrogen/Creatinine [Mass ratio] 21.1 mg/mg Normal [facility] Comment on above: Performed By: #### C SONIA PYLE #### [facility] [id number] Rivas Zhao XR ribs RT min 3V w CXR1V*on 06-09-2020 XR ribs RT min 3V w CXR1V* [facility] [place] [address] [place] [address] XRay Report Signed Patient: Fern Cardoso MR#: [id number] : 1960 Acct:[id number] Age/Sex: 59 / F ADM Date: 06/09/20 Loc: XDUCLY Room: Type: [facility] Attending Dr: Janene Munguia APRN, [employer] Ordering Provider: Janene Munguia APRN Date of [...] Garcia Jr., M.D.06/09/2020 11:19 AM Dictation Location: [place] [address] Transcribed By: JOSÉ LUIS 06/09/20 1119 Dictated By: Que Garcia Jr, MD 06/09/20 1112 Signed By: 06/09/20 1119 Normal [facility] Vital Signs Date Time Vital Sign Value Performing Clinician Facility 12-14-2024 10:49-0400 Body height 165.1 cm Esequiel Reno DPM Work Phone: [facility] 12-14-2024 10:49-0400 Body mass index (BMI) [Ratio] 57.91 kg/m2 Esequiel Brown DPM Work Phone: [facility] 12-14-2024 10:49-0400 Body weight 157.85 kg Esequiel Brown DPM Work Phone: [facility] 12-14-2024 10:49-0400 Respiratory rate 18 /min Esequiel Brown DPM Work Phone: [facility] 10-05-2024 10:37-0400 Body height 165.1 cm Esequiel Brown DPM Work Phone: [facility] 10-05-2024 10:37-0400 Body mass index (BMI) [Ratio] 57.91 kg/m2 Esequiel Brown DPM Work Phone: [facility] 10-05-2024 10:37-0400 Body weight 157.85 kg Esequiel Brown DPM Work Phone: [facility] 10-05-2024 10:37-0400 Respiratory rate 18 /min Esequiel Reno DPM Work Phone: [facility] 02-14-2024 10:00-0400 Body height 165.1 cm [facility] 02-14-2024 10:00-0400 Body mass index (BMI) [Ratio] 57 kg/m2 [facility] 02-14-2024 10:00-0400 Body weight 155.58 kg [facility] 02-14-2024 10:00-0400 Diastolic blood pressure 73 mm[Hg] [facility] 02-14-2024 10:00-0400 Heart rate 74 /min [facility] 02-14-2024 10:00-0400 Systolic blood pressure 108 mm[Hg] [facility] 01-24-2024 10:10-0400 Body height 165.1 cm [facility] 01-24-2024 10:10-0400 Body mass index (BMI) [Ratio] 56.3 kg/m2 [facility] 01-24-2024 10:10-0400 Body weight 153.54 kg [facility] 01-24-2024 10:10-0400 Diastolic blood pressure 70 mm[Hg] [facility] 01-24-2024 10:10-0400 Heart rate 71 /min [facility] 01-24-2024 10:10-0400 Respiratory rate 18 /min [facility] 01-24-2024 10:10-0400 SaO2% (BldA) [Mass fraction] 98 % [facility] 01-24-2024 10:10-0400 Systolic blood pressure 112 mm[Hg] [facility] 12-16-2023 11:29-0400 Body height 165.1 cm [facility] 12-16-2023 11:29-0400 Body mass index (BMI) [Ratio] 55 kg/m2 [facility] 12-16-2023 11:29-0400 Body weight 150.13 kg [facility] 12-16-2023 11:29-0400 Diastolic blood pressure 60 mm[Hg] [facility] 12-16-2023 11:29-0400 Heart rate 69 /min [facility] 12-16-2023 11:29-0400 Systolic blood pressure 86 mm[Hg] [facility] 10-14-2023 09:39-0400 Body height 165.1 cm [facility] 10-14-2023 09:39-0400 Body mass index (BMI) [Ratio] 54.6 kg/m2 [facility] 10-14-2023 09:39-0400 Body temperature 98.4 [degF] [facility] 10-14-2023 09:39-0400 Body weight 148.89 kg [facility] 10-14-2023 09:39-0400 Diastolic blood pressure 76 mm[Hg] [facility] 10-14-2023 09:39-0400 Heart rate 71 /min [facility] 10-14-2023 09:39-0400 Respiratory rate 18 /min [facility] 10-14-2023 09:39-0400 SaO2% (BldA) [Mass fraction] 97 % [facility] 10-14-2023 09:39-0400 Systolic blood pressure 114 mm[Hg] [facility] 08-12-2023 11:04-0400 Body height 165.1 cm [facility] 08-12-2023 11:04-0400 Body mass index (BMI) [Ratio] 55.2 kg/m2 [facility] 08-12-2023 11:04-0400 Body weight 150.59 kg [facility] 08-12-2023 11:04-0400 Diastolic blood pressure 67 mm[Hg] [facility] 08-12-2023 11:04-0400 Heart rate 67 /min [facility] 08-12-2023 11:04-0400 Systolic blood pressure 104 mm[Hg] [facility] 06-21-2023 15:41-0500 Body height 165.1 cm [facility] 06-21-2023 15:41-0500 Body mass index (BMI) [Ratio] 54.1 kg/m2 [facility] 06-21-2023 15:41-0500 Body weight 147.64 kg [facility] 06-21-2023 15:41-0500 Diastolic blood pressure 60 mm[Hg] [facility] 06-21-2023 15:41-0500 Heart rate 67 /min [facility] 06-21-2023 15:41-0500 SaO2% (BldA) [Mass fraction] 97 % [facility] 06-21-2023 15:41-0500 Systolic blood pressure 108 mm[Hg] [facility] 05-14-2023 09:30-0500 Body height 165.1 cm Sindi Benjamin Other [facility] Other 05-14-2023 09:30-0500 Body mass index (BMI) [Ratio] 57.24 kg/m2 Sindi Benjamin Other [facility] Other 05-14-2023 09:30-0500 Body weight 156.04 kg Sindi Benjamin Other [facility] Other 05-14-2023 09:30-0500 Diastolic blood pressure 69 mm[Hg] Sindi Benjamin Other [facility] Other 05-14-2023 09:30-0500 SaO2% (BldA) [Mass fraction] 97 % Sindi Benjamin Other [facility] Other 05-14-2023 09:30-0500 Systolic blood pressure 105 mm[Hg] Sindi Benjamin Other [facility] Other 03-05-2023 16:00-0500 Body height 165.1 cm Etta Gordon Other [facility] Other 03-05-2023 16:00-0500 Body mass index (BMI) [Ratio] 60.27 kg/m2 Etta Gordon Other [facility] Other 03-05-2023 16:00-0500 Body temperature 98.9 [degF] Etta Gordon Other [facility] Other 03-05-2023 16:00-0500 Body weight 164.29 kg Etta Gordon Other [facility] Other 03-05-2023 16:00-0500 Diastolic blood pressure 77 mm[Hg] Etta Gordon Other [facility] Other 03-05-2023 16:00-0500 Respiratory rate 18 /min Etta Gordon Other [facility] Other 03-05-2023 16:00-0500 SaO2% (BldA) [Mass fraction] 95 % Etta Gordon Other [facility] Other 03-05-2023 16:00-0500 Systolic blood pressure 125 mm[Hg] Etta Gordon Other [facility] Other Encounters Encounter Date Encounter Type Care Provider Facility Start: 01-16-2025 ambulatory Rafael Pickard MD Fac ility:[facility] [place] Start: 01-08-2025 ambulatory [facility] Start: 12-14-2024 End: 12-14-2024 Bamboo flowsheet Esequiel [...] underlying condition with diabetic polyneuropathy, unspecified whether prison insulin use (HCC); Pain due to onychomycosis of toenails of both feet; Venous insufficiency Start: 12-14-2024 End: 12-14-2024 ambulatory ESEQUIEL RENO Not Available Start: 12-06-2024 ambulatory [facility] Start: 12-05-2024 End: 12-05-2024 Bamboo flowsheet Aric Aaron PT [facility] Start: 12-05-2024 End: 12-05-2024 Bamboo flowsheet Aric Aaron PT [facility] Start: 12-05-2024 End: 12-05-2024 ambulatory Aric Aaron PT [facility] Comment on above: Cervicalgia (Primary Dx) Start: 11-29-2024 End: 11-29-2024 ambulatory BENY COOK [facility] Start: 11-15-2024 ambulatory [facility] Start: 10-31-2024 ambulatory [facility] Start: 10-05-2024 End: 10-05-2024 Bamboo flowsheet Esequiel [...] underlying condition with diabetic polyneuropathy, 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); Pain due to onychomycosis of toenails of both feet; Venous insufficiency Start: 10-05-2024 End: 10-05-2024 ambulatory ESEQUIEL RENO Not Available Start: 08-28-2024 ambulatory [facility] Start: 07-07-2024 ambulatory [facility] Start: 06-09-2024 End: 06-09-2024 ambulatory JAG MAGALLANES [facility] Start: 06-02-2024 ambulatory [facility] Start: 05-05-2024 ambulatory [facility] Start: 04-07-2024 ambulatory [facility] Start: 03-22-2024 ambulatory [facility] Start: 03-08-2024 ambulatory [facility] Start: 02-14-2024 End: 02-14-2024 ambulatory [facility] Work Phone: Start: 02-14-2024 End: 02-14-2024 Patient encounter procedure [facility] Work Phone: Start: 02-11-2024 ambulatory [facility] Start: 02-07-2024 ambulatory [facility] Start: 01-28-2024 ambulatory [facility] Start: 01-26-2024 End: 01-26-2024 ambulatory BENY [facility] Start: 01-24-2024 End: 01-24-2024 ambulatory [facility] Work Phone: Start: 01-24-2024 End: 01-24-2024 Patient encounter procedure [facility] Work Phone: Start: 01-24-2024 Non-patient / Non-visit [facility] [place] Work Phone: Start: 12-16-2023 End: 12-16-2023 ambulatory [facility] Work Phone: Start: 12-16-2023 End: 12-16-2023 Patient encounter procedure [facility] Work Phone: Start: 10-19-2023 Non-patient / Non-visit [facility] Work Phone: Start: 10-14-2023 End: 10-14-2023 ambulatory [facility] Work Phone: Start: 10-14-2023 End: 10-14-2023 Patient encounter procedure [facility] [place] Work Phone: Start: 08-28-2023 Non-patient / Non-visit [facility] Work Phone: Start: 08-22-2023 Patient encounter status [facility] Start: 08-12-2023 End: 08-12-2023 ambulatory [facility] Work Phone: Start: 08-12-2023 End: 08-12-2023 Encounter for general adult medical examination without abnormal findings [facility] Start: 08-12-2023 End: 08-12-2023 Patient encounter procedure [facility] Work Phone: Start: 07-09-2023 Non-patient / Non-visit [facility] Work Phone: Start: 06-21-2023 End: 06-21-2023 Patient encounter procedure [facility] Work Phone: Start: 05-31-2023 End: 05-31-2023 ambulatory Etta Gordon Other [employer] Other Start: 05-31-2023 Telephone encounter Etta Gordon [facility] Start: 05-21-2023 End: 05-21-2023 ambulatory Sindi Benjamin Other [employer] Other Start: 05-21-2023 Telephone encounter Sindi Benjamin [facility] Start: 05-18-2023 Patient encounter procedure [facility] Start: 05-14-2023 End: 05-14-2023 ambulatory Sindi Benjamin Other [employer] Other Start: 05-14-2023 Office outpatient vi sit 25 minutes Sindi Benjamin [facility] Start: 04-30-2023 End: 04-30-2023 ambulatory Sindi Benjamin Other [employer] Other Start: 04-30-2023 Telephone encounter Sindi Benjamin [facility] Start: 04-01-2023 End: 04-01-2023 ambulatory Snidi Benjamin Other [employer] Other Start: 04-01-2023 Telephone encounter Sindi Benjamin [facility] Start: 03-05-2023 End: 03-05-2023 ambulatory Etta Gordon Other [employer] Other Start: 03-05-2023 Office outpatient vi sit 25 minutes Etta Gordon [facility] [place] Start: 02-26-2022 Encounter for genera l adult medical examination without abnormal findings DR SINDI BENJAMIN [facility] Start: 02-21-2022 End: 02-22-[address] SINDI BENJAIMN Facility:[facility] Start: 02-21-2022 End: 02-22-2022 Encounter for general adult medical examination without abnormal findings DR SINDI BENJAMIN Facility:[facility] Start: 01-20-2022 Adult health examination Etta Augustler Other [employer] Other Start: 05-16-2021 End: 05-17-[address] [...] [facility] [place] [facility] [address] [facility] [address] [place] [address] Aric Aaron PT [facility] [place] [facility] Start: 12-19-2024 End: 12-19-2024 ambulatory 12/19/2024 12:00 PM EDT Treatment [facility] [place] [facility] [address] [facility] [address] [place] [address] Brian Hill PTA [facility] [place] [facility] Start: 12-18-2024 Influenza vaccination Influenza Vacc ine (#1) [facility] Start: 12-14-2024 End: 12-14-2024 ambulatory 12/14/2024 11:30 AM EDT Treatment [facility] [place] [facility] [address] [facility] [address] [place] [address] Anabell Montague PTA [facility] [place] [facility] Start: 12-14-2024 End: 12-14-2024 Patient encounter procedure [facility] Comment on above: Hallux rigidus of le ft foot (Primary Dx); Hallux rigidus of right foot; Diabetes mellitus due to underlying condition with diabetic polyneuropathy, unspecified whether prison insulin use (HCC); Pain due to onychomycosis of toenails of both feet; Venous insufficiency Start: 12-11-2024 End: 12-11-2024 ambulatory 12/11/2024 2:30 PM EDT Treatment [facility] [place] [facility] [address] [facility] [address] [place] [address] Brian Hill PTA [facility] [place] [facility] Start: 12-07-2024 End: 12-07-2024 ambulatory 12/07/2024 12:00 PM EDT Treatment [facility] [place] [facility] [address] [facility] [address] [place] [address] Brian Hill PTA [facility] [place] [facility] Start: 12-05-2024 End: 12-05-2024 ambulatory 12/05/2024 12:30 PM EDT Evaluation [facility] [place] [facility] [address] [place] [address] [place] [address] Aric Aaron PT Cervicalgia (Primary Dx) [facility] [place] [facility] Comment on above: Cervicalgia (Primary Dx) Start: 10-05-2024 End: 10-05-2024 Patient encounter procedure 10/05/2024 10:20 AM EDT Office Visit [facility] [address] [place] [address] [place] [id number] Esequiel Reno, DPEma [address] [facility] [address] [place] [address] Arrived [facility] Comment on above: Arrived Start: 2001 Screening for malign ant neoplasm of breast Mammogram [facility] Start: 07-25-1991 Screening for malign ant neoplasm of cervix [facility] Start: 1982 Screening for malign ant neoplasm of cervix Pap Smear [facility] Start: 1961 Screening for malign ant neoplasm of colon [facility] MG Breast - bilatera l Screening [facility] US Lower extremity v ein - right [facility] XR Lumbar spine 2 or 3 Views [facility] Immunizations Immunization Date Immunization Notes Care Provider Fa cility 03-08-2024 influenza virus vacc ine, unspecified formulation Aric Aaron PT [facility] Healthcare Payers Date Payer Category Payer Private Health Insurance [id number] [id number] 2023 Unknown [id number] 1961 Unknown [id number] [id number] 1961 Unknown [id number] [id number] 1961 Unknown [id number] [id number] 1961 Unknown [id number] [id number] 1961 Unknown [id number] [id number] 1961 Unknown [id number] [id number] 1961 Unknown [id number] [id number] 1961 Unknown [id number] [id number] 1959 Unknown [id number] Self-pay [id number] Unknown [id number] Social History Date Type Detail Facility Unknown if ever smoked [facility] Other Start: 10-05-2024 Sex Assigned At [facility] Other Start: 07-07-2018 End: 10-05-2024 Tobacco smoking status NYIS Never smoked tobacco (finding) [facility] Start: 1960 Sex Assigned At Female [facility] Tobacco smoking stat us NYIS Tobacco smoking consumption unknown [facility] Start: 09-30-2024 Gender identity Identifies as female gender (finding) [facility] Start: 09-30-2024 Sexual orientation Heterosexual (finding) [facility] Start: 10-05-2024 Tobacco use and exposure Smokeless tobacco non-user [facility] Start: 10-05-2024 End: 12-14-2024 Alcoholic beverage intake Lifetime non-drinker (finding) [facility] Start: 10-05-2024 History of Social function [facility] Medical Equipment Procedure Code Equipment [...] follow-up as scheduled with Dr. Cronin. Thanks! [facility] 12-14-2024 History of Present illness Narrative [...] Strain: Low Risk (05/05/2023) Received from [facility] Overall Financial Resource Strain (CARDIA) Difficulty of Paying Living Expenses: Not hard at all Food Insecurity: No Food Insecurity (05/05/2023) Received from [facility] Hunger Vital Sign Within the past 12 months, you worried that your food would run out before you got the money to buy more.: Never true Ran Out of Food in the Last Year: Not on file Transportation Needs: No Transportation Needs (05/05/2023) Received from [facility] Transportation In the past 12 months, has lack of transportation kept you from medical appointments or from getting medications?: No Lack of Transportation (Non-Medical): Not on file Physical Activity: Not on file Stress: Not on file Social Connections: Not on file Intimate Partner Violence: Unknown (05/05/2023) Received from [facility] Humiliation, Afraid, Rape, and Kick questionnaire Fear of Current or Ex-Partner: No Emotionally Abused: Not on file Physically Abused: Not on file Sexually Abused: Not on file Housing Stability: Low Risk (05/05/2023) Received from [facility] Housing Stability Vital Sign Unable to Pay for Housing in the Last Year: Not on file Number of Places Lived in the Last Year: Not on file In the last 12 months, was there a time when you did not have a steady place to sleep or slept in a retirement (including now)?: No ROS: Gastrointestinal: denies abdominal [...] palpableDP and PT pedal pulses NEURO: 5.07 [place] Satish monofilament test intact to digits and [...] underlying condition with diabetic polyneuropathy, unspecified whether prison insulin use (HCC) 4. Pain due to [...] Esequiel Reno DPM documented in this encounter [facility] 12-05-2024 History of Present illness [...] to her neck. 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 Precautions: bilateral TKA, universal [...] to be instructed in home exercise program. [facility] Goals: To be met in 10 weeks [...] sign below. Date: documented in this encounter [facility] 11-29-2024 Note Patient is here [...] irregular heartbeat (occasional racing heart while sitting). [facility] 11-29-2024 Note Cardiovascular Medic [facility] SUBJECTIVE Chief Complaint Patient presents [...] diabetes obstructive sleep apnea was admitted to [facility] with shortness of breath and [...] mg) by mouth (more content not included)... [facility] 10-05-2024 History of Present illness Narrative [...] Strain: Low Risk (05/05/2023) Received from [facility] Overall Financial Resource Strain (CARDIA) Difficulty of Paying Living Expenses: Not hard at all Food Insecurity: No Food Insecurity (05/05/2023) Received from [facility] Hunger Vital Sign Within the past 12 months, you worried that your food would run out before you got the money to buy more.: Never true Ran Out of Food in the Last Year: Not on file Transportation Needs: No Transportation Needs (05/05/2023) Received from [facility] Transportation In the past 12 months, has lack of transportation kept you from medical appointments or from getting medications?: No Lack of Transportation (Non-Medical): Not on file Physical Activity: Not on file Stress: Not on file Social Connections: Not on file Intimate Partner Violence: Unknown (05/05/2023) Received from [facility] Humiliation, Afraid, Rape, and Kick questionnaire Fear of Current or Ex-Partner: No Emotionally Abused: Not on file Physically Abused: Not on file Sexually Abused: Not on file Housing Stability: Low Risk (05/05/2023) Received from [facility] Housing Stability Vital Sign Unable to Pay for Housing in the Last Year: Not on file Number of Places Lived in the Last Year: Not on file In the last 12 months, was there a time when you did not have a steady place to sleep or slept in a retirement (including now)?: No ROS: Gastrointestinal: denies abdominal [...] palpableDP and PT pedal pulses NEURO: 5.07 [place] Satish monofilament test intact to digits and [...] underlying condition with diabetic polyneuropathy, 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) 4. Pain due to [...] edema. Discussed condition in detail. Recommendation for [id number] compression stockings at this time and may consider prescription stockings in the future. Discussed hallux rigidus condition and arthritis to the great toe joints and becomes worse may consider possible further treatment Patient to continue with oral anti - inflammatories as needed for pain and recommended OTC medications such as tylenol or Ibuprofen Esequiel Reno DPM documented in this encounter [facility] 06-09-2024 Note SUBJECTIVE Reason for Visit: Fern Cardoso is a 63 y.o. year old female patient being seen for 4-month follow-up visit. HPI: Fern Cardoso is a 62-year-old with a medical history of hypertension, diabetes, A-fib/flutter, and obstructive sleep apnea who was admitted to [facility] in April 2023 for with shortness of [...] ECG Acute kidney injury Arrhythmia Atrial fibrillation ([facility]/HCC) Atrial fibrillation ([facility]) CHF (congestive heart failure) ([facility]) Diabetes mellitus ([facility]) DVT (deep venous thrombosis) ([facility]) Hypertension Obesity BMI 55/58 PONV (postoperative nausea and vomiting) Sleep apnea Thrombocytopenia Past Surgical History: Procedure Laterality Date ABLATION OF DYSRHYTHMIC FOCUS CARDIAC CATHETERIZATION SECTION, CLASSIC OTHER SURGICAL HISTORY LOOP RECORDER INSERTION 07/12/23 REPLACEMENT TOTAL KNEE ONCOLOGIC Patient Active Problem List Diagnosis Chronic systolic congestive heart failure, NYHA class 2 ([facility]) Paroxysmal atrial fibrillation ([facility]/HCC) Grade II diastolic dysfunction Benign hypertensive cardiomyopathy with heart failure ([facility]) Anemia following surgery History of deep venous thrombosis Hypertension Hypokalemia Impaired mobility and activities of daily living Lack of stamina Morbid obesity with body mass index (BMI) of 50.0 to 59.9 in adult ([facility]) Postoperative pain Status post total right knee replacement Thrombocytopenia RAVI (obstructive sleep apnea) Overactive bladder Screening mammogram for breast cancer Type 2 diabetes mellitus with hyperglycemia ([facility]) PONV (postoperative nausea and vomiting) Lumbar back [...] soft. Musculoskeletal: Inspec (more content not included)... [facility] 06-09-2024 Note Patient here for 4 [...] reviewed and are negative. [facility] 01-26-2024 Note Cardiovascular Medic [facility] SUBJECTIVE Chief Complaint Patient presents [...] diabetes obstructive sleep apnea was admitted to [facility] with shortness of breath and [...] evening meal., Dis (more content not included)... [facility] 01-26-2024 Note Patient here for 2 [...] reviewed and are negative. [facility] 05-14-2023 Evaluation note Encounter [...] forms for supplies and faxed back to [employer]. Pt states she will restart and become compliant w CPAP treatment. [employer] Other 11-17-2023 Evaluation note* Encounter Date Diagnosis [...] treatment plan. Patient left in stable condition [facility] Other 07-06-2021 Evaluation note* Diagnosis Onset Date Resolution Status Essential (primary) hypertension October 22, 2020 acute Paroxysmal atrial fibrillation acute Screening mammogram for breast cancer acute Type 2 diabetes mellitus with hyperglycemia acute [facility] Work Phone: [facility]No [facility] Other Evaluation note* Diagnosis Onset Date Resolution Status Paroxysmal atrial fibrillation acute Screening mammogram for breast cancer acute Type 2 diabetes mellitus with hyperglycemia acute Wellness examination acute [facility] Work Phone: Evaluation note* Diagnosis Onset Date Resolution Status Pain in left foot noneactive Lumbar back pain acute [facility] Work Phone: Evaluation note* Diagnosis Onset Date Resolution Status Lumbar back pain acute Right leg swelling acute [facility] Work Phone: Evaluation note* Diagnosis Hallux rigidus of left foot- Primary Hallux rigidus of right foot Diabetes mellitus due to underlying condition with diabetic polyneuropathy, unspecified whether prison insulin use (HCC) Pain due to onychomycosis of toenails of both feet Venous insufficiency Unspecified venous (peripheral) insufficiency [facility] Diagnosis Cervicalgia- Primary Hallux rigidus of left foot- Primary Hallux rigidus of right foot Diabetes mellitus due to underlying condition with diabetic polyneuropathy, 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) Pain due to onychomycosis of toenails of both feet Venous insufficiency Unspecified venous (peripheral) insufficiency [facility] Diagnosis Hallux rigidus of left foot- Primary Hallux rigidus of right foot Diabetes mellitus due to underlying condition with diabetic polyneuropathy, 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) Pain due to onychomycosis [...] knee arthroplasty 05/07 Hospitalization History see above [employer] Other Reason for visit Narrative* Rehabilitation - Outpatient (Routine) - Authorized Specialty Diagnoses / Procedures Referred By Contac t Referred To Contact Physical Therapy Diagnoses Cervicalgia Procedures TX PHYSICAL THERAPY EVALUATION LOW COMPLEX 20 MINS TX OFFICE/OUTPATIENT NEW HIGH MDM 60 MINUTES Rosa Guzman MD [address] [place] [phone] fax: Aric Aaron PT Referral ID Status Reason Start Date Expiration Date V isits Requested Visits Authorized [id number] Authorized 12/05/2024 05/21/2025 12 12 [facility] Healthcare Summary Purpose Family History No [...] section and content) DATE CREATED AUTHOR 08/28/2018 [facility] DATE CREATED AUTHOR AUTHOR'S ORGANIZ ATION 05/07/2021 [facility] DATE CREATED AUTHOR AUTHOR'S ORGANIZ ATION 09/19/2021 [facility] DATE CREATED AUTHOR AUTHOR'S ORGANIZ ATION 02/27/2022 [facility] DATE CREATED AUTHOR AUTHOR'S ORGANIZ ATION 12/16/2024 [facility] EPIC DATE CREATED AUTHOR AUTHOR'S ORGANIZ ATION 01/07/2025 [facility] DATE CREATED AUTHOR AUTHOR'S ORGANIZ ATION 01/09/2025 [facility] REASON FOR VISIT (unrecogniz ed section [...] BASED ON THE PRIMARY CLINICAL RECORDS. [facility] [employer] [facility]. provides no warranty or guarantee of the accuracy or completeness of information in this document.
== END 2025-01-19 10:55 | disposition home or self-care (01) ==
LOC: RAD 10:58
PROVIDERS: PCP Internal Medicine
DX: M54.9 Dorsalgia, unspecified (principal); M51.369 Other intervertebral disc degeneration, lumbar region without mention of lumbar back pain or lower extremity pain; M50.30 Other cervical disc degeneration, unspecified cervical region
CPT/HCPCS: 72040; 72072; 72100

== ENCOUNTER 2025-03-07 08:44 | Outpatient (OUT) | payer OTHER, SELFPAY ==
--- OUTSIDE RECORDS SUMMARY | 2025-03-07 08:49 | XMS_ITS | CCD ---
Author Organization [facility] Care Team Providers Care Addiction Medicine Physician Name Role Phone Hans Whitesdie Attending Unavailable Sindi Benjamin Primary Care Unavaila [...] Rafael Pickard MD Attending Unavailable Mekhi WOOD, [facility] Unavailable Rafael Pickard MD Attending Unavailable Mekhi WOOD, Rosa Referring Unavailable Mekhi WOOD, [facility] Unavailable Rafael Pickard MD Attending Unavailable Mekhi WOOD, [facility] Unavailable NICOLASA CRONIN Referring Unavailable NICOLASA CRONIN Referring Unavailable NICOLASA CRONIN Referring Unavailable NICOLASA CRONIN Referring Unavailable NICOLASA CRONIN Attending Unavailable JAG MAGALLANES Attending Unavailable BENY COOK Attending Unavailable NICOLASA CRONIN Referring Unavailable NICOLASA CRONIN Referring Unavailable NICOLASA CRONIN Referring Unavailable NICOLASA CRONIN Referring Unavailable NICOLASA CRONIN Referring Unavailable NICOLASA CRONIN Referring Unavailable NICOLASA CRONIN Referring Unavailable Allergies Allergy ClassificationReported Allergen(s)Allergy TypeDate of OnsetReaction(s) Facility (7 sources)Penicillins; Translations: [PENICILLINS]Drug allergy (disorder) 22-49-9372[facility]mpmJnyL[facility] (12 sources)Ciprofloxacin; Translations: [CIPROFLOXACIN]Drug Prskxrj74-28-7067 Comment:nausea and diarrheaMart[facility]erry [facility] (11 sources)Penicillin GDrug Toxeqix84-31-3583saccyZlszgglbsMercy Health [facility] Hospital (12 sources)traMADol; Translations: [TRAMADOL]Drug Zgqcojy28-86-3066SpagzeuHolzer [facility] (6 sources)Substance with penicillin structure and antibacterial mechanism of action (substance)Drug pliotqc65-23-4758XjlumkcNdrmd [employer] Other (6 sources)patient allergy list reviewed by nurse or physiciaPropensity to adverse dzjukrikh17-09-0120Jkwbgaz:View and Chew Other (6 sources)TraMADol & Dietary Manage Prod *ANALGESICS - OPIOIPropensity to adverse kvhdswxyv86-90-3321KytajsuYoedcSaladax [employer] Other (6 sources)Allergies ReconciledPropensity to adverse reactionsSentilla Other (1 source)Penicillin; Translations: [penicillin]Drug [facility]ergyK[facility] (1 source)diphenhydrAMINE; Translations: [DIPHENHYDRAMINE]Drug Kcncigl34-84-5777 [facility] Repository Medications Current Medications MedicationDrug Class(es)DatesSig (Normalized)Sig (Original)apixaban 5 mg oral tablet (15 sources)Factor Xa InhibitorStart: 06-18-2023 End: 66-22-4540qypl 1 tablet by mouth in the morningapixaban (Eliquis) 5 MG tablet Take 5 mg by mouth in the morning and 5 mg in the evening. 12/21/2023 12/15/2024 Activetake 1 tablet by mouth twice dailyApixaban 5 MG 1 tablet Orally Twice a day Activeaspirin 81 mg delayed release oral tablet (10 sources)Platelet Aggregation Inhibitor, Nonsteroidal Anti-inflammatory Drug Start: 29-55-8197sjpv 81 mg by mouth twice dailyAspirin Active 81 MG PO Twice daily 40 July 14, 2018 12:00amStart: 06-22-2018 End: 03-13-6415mldb 81 mg by mouth once dailyAspirin Discontinued 81 MG PO Daily June 22, 2018 1:00am July 14, 2018 12:23pmASPIRIN 81 MG - this medication is not being screened (6 sources)Start: 37-38-3660CUFCABP 81 MG - this medication is not being screened ASPIRIN 81 MG - this medication is not being screened( ) Active -Hx Entry for 0 *Reorder from [employer] for eRx and Interaction Alerts* Feb, Activebenzonatate 100 mg oral capsule (6 sources)Non-narcotic AntitussiveStart: 95-02-2316ijob 1 capsule by mouth three times daily as neededTessalon Perles 100 MG 1 capsule as needed Orally Three times a day for 7 days Feb, ActiveStart: 21-33-2524Imiyowlpzns 200 MG benzonatate 200mg, 1 Capsule 2 to 3 times per day;cough # 30, 01/26/2022, No Refill. Active Oral 2 to 3 times per day;cough for 0 Jan, Active bumetanide 1 mg oral tablet (20 sources)Loop DiureticStart: 06-18-2023 End: 83-38-2221itig 1 mg by mouth once dailyBumetanide Active 1 MG PO Daily August 12, 2023 12:00amcarvedilol 6.25 mg oral tablet (15 sources)alpha-Adrenergic Kayli, beta-Adrenergic BlockerStart: 06-18-2023 take 6.25 mg by mouth twice dailyCarvedilol Active 6.25 MG PO Twice daily June 18, 2023 1:00amdapagliflozin 10 mg oral tablet (15 sources)Sodium-Glucose Cotransporter 2 InhibitorStart: 06-18-2023 End: 93-39-8987ngncrkidcqadg (Farxiga) 10 MG Take 10 mg by mouth 12/21/2023 12/20/2024 Activetake 1 tablet by mouth once dailyDapagliflozin Propanediol 10 MG 1 tablet Orally Once a day Activedoxycycline hyclate 100 mg oral tablet (1 source)Tetracycline-class DrugStart: 21-32-6584zing 100 mg by mouth twice dailyDoxycycline Hyclate Active 100 MG PO Twice daily February 01, 2024 12:00amlosartan potassium 25 mg oral tablet (11 sources)Angiotensin 2 Receptor BlockerStart: 38-22-4680mjsn 25 mg by mouth once dailyLosartan Active 25 MG PO Daily October 14, 2023 12:00ammagnesium oxide 400 mg oral tablet (15 sources)Start: 02-85-9355owlx 1 tablet by mouth in the morningmagnesium oxide (Mag-Ox) 400 (240 Mg) MG tablet Take 400 mg by mouth in the morning and 400 mg before bedtime. 09/14/2024 ActiveStart: 32-12-7735yxrr 400 mg by mouth once dailyMagnesium Oxide Active 400 MG PO Daily June 18, 2023 1:00amtake 1 tablet by mouth every twenty-four hoursMagnesium Oxide 400 MG 1 tablet as needed Orally Once a day Activemetoprolol tartrate 50 mg oral tablet (19 sources)beta-Adrenergic BlockerStart: 47-10-6440unzq 1 tablet by mouth once dailyMetoprolol Succinate ER 50MG Metoprolol Succinate ER 50MG, 1 (one) Tablet Tablet daily # 0, 09/02/2021, No Refill. Active Oral daily for 0 *Pick strength- form from [employer] for eRX* August, ActiveStart: 07-14-2018 End: 14-58-3088ricb 50 mg by mouth every twelve hoursMetoprolol Tartrate Discontinued 50 MG PO Q12H 60 July 14, 2018 12:00am June 18, 2023 3:38pm Start: 06-22-2018 End: 47-04-6639qale 50 mg by mouth once daily in the morningMetoprolol Tartrate Discontinued 50 MG PO Every morning June 22, 2018 1:00am July 14, 2018 12:2 7pmtake 1 tablet by mouth every twenty-four hoursMetoprolol Succinate ER 50 MG 1 tablet Orally Once a day for 90 days Activetake 1 tablet by mouth every twelve hoursMetoprolol Tartrate 50 MG 1 tablet Orally Twice a day for 30 day(s) Not-Taking/PRNMultivitamin preparation (3 sources)Multivitamin ActivepredniSONE 20 mg oral tablet (3 sources)Start: 30-20-4882pxxq 1 tablet by mouth every twelve hoursprednisone 20 MG 1 tablet Orally BID for 5 17 Feb, 2023 Activespironolactone 25 mg oral tablet (15 sources)Aldosterone AntagonistStart: 46-36-6901bkkc 25 mg by mouth once dailySpironolactone Active 25 MG PO Daily June 18, 2023 1:00amsulfamethoxazole 800 mg / trimethoprim 160 mg oral tablet (3 sources)Dihydrofolate Reductase Inhibitor Antibacterial, Sulfonamide AntimicrobialStart: 05-14-5941srae 1 tablet by mouth twice daily Sulfamethoxazole-Trimethoprim 800-160 MG sulfamethoxazole-trimethoprim 800- 160mg, 1 (one) Tablet two times daily # 20, 01/20/2022, No Refill. Active Oral two times daily for 0 04 Jan, 2022 Active Completed/Discontinued Medications MedicationDrug Class(es)DatesSig (Normalized)Sig (Original)acetaminophen 325 mg oral tablet (5 sources)Start: 07-14-2018 End: 21-42-3997dunv 650 mg by mouth every four hoursAcetaminophen Discontinued 650 MG PO Q4H 0 July 14, 2018 12:00am June 18, 2023 3:36pmamiodarone hydrochloride 400 mg oral tablet (12 sources)AntiarrhythmicStart: 10-14-2023 End: 30-69-3504zrjg 200 mg by mouth once dailyAmiodarone Discontinued 200 MG PO Daily October 14, 2023 9:42am February 14, 2024 10:08amStart: 06-18-2023 End: 31-27-6718wcfb 400 mg by mouth once dailyAmiodarone Discontinued 400 MG PO Daily June 18, 2023 1:00am October 14, 2023 9:42amtake 1 tablet by mouth every twenty-four hoursAmiodarone HCl 400 MG 1 tablet Orally Once a day Active amitriptyline hydrochloride 25 mg oral tablet (6 sources)Tricyclic AntidepressantStart: 68-90-9989Idmhtjklewekk HCl 25MG Amitriptyline HCl 25MG, 1 (one) Tablet Tablet at bedtime # 30, 09/17/2021, No Refill. Active Oral at bedtime for 0 *Pick strength-form from [employer] for eRX* Sep, Not-Taking/PRNtake 1 tablet by mouth at bedtimeAmitriptyline HCl 25 MG TAKE 1 TABLET BY MOUTH AT BEDTIME for 90 ActiveAspir-81 81 MG (3 sources)take 1 tablet by mouth once daily as neededAspir-81 81 MG 1 tablet Orally Once a day for 30 day(s) Not-Taking/PRNtake 1 tablet by mouth once daily Aspir-81 81 MG 1 tablet Orally Once a day for 30 day(s) Not-Takingcephalexin 500 mg oral capsule (5 sources)Cephalosporin AntibacterialStart: 01-24-2024 End: 17-50-0112ytmt 500 mg by mouth three times dailyCephalexin Discontinued 500 MG PO Three times daily 06 11January 24, 2024 12:00am February 01, 2024 4:25pmStart: 57-87-6459ykcl 1 capsule by mouth every eight hoursCephalexin 500 MG 1 capsule Orally three times a day for 10 day(s) Sep, Not-Taking/PRN diclofenac sodium 75 mg delayed release oral tablet (19 sources)Nonsteroidal Anti-inflammatory DrugStart: 06-18-2023 End: 00-71-6812ftll 75 mg by mouth twice dailyDiclofenac Sodium Discontinued 75 MG PO Twice daily June 18, 2023 1:00am October 14, 2023 9:42amStart: 11-27-2021 take 1 tablet by mouth twice dailyDiclofenac Sodium 75MG Diclofenac Sodium 75MG, 1 Tablet Tablet twice a day # 0, 11/27/2021, No Refill. Active Oral twice a day for 0 *Pick strength-form from [employer] for eRX* Nov, ActiveStart: 06-22-2018 End: 28-26-7639nczy 75 mg by mouth once daily in the morningDiclofenac Sodium Discontinued 75 MG PO Every morning June 22, 2018 1:00am July 14, 2018 12:23pmtake 1 tablet by mouth twice daily at mealtimeDiclofenac Sodium 75 MG TAKE 1 TABLET BY MOUTH TWICE DAILY WITH FOOD for 90 Not-Taking/PRNdocusate sodium 100 mg oral capsule (5 sources)Start: 07-14-2018 End: 77-30-9726ygjn 100 mg by mouth twice dailyDocusate Sodium Discontinued 100 MG PO Twice daily July 14, 2018 12:00am June 18, 2023 3:38pm0.4 ml enoxaparin sodium 100 mg/ml prefilled syringe (5 sources)Low Molecular Weight HeparinStart: 07-06-2018 End: 07-74-9328Ydqdfpqxmx (Lovenox) 40 mg/0.4 mL Syringe Discontinued 40 MG SUBCUT Every 12 hours at 1000 & 2200 July 06, 2018 12:00am July 14, 2018 12:23pmhydrOXYzine pamoate 50 mg oral capsule (10 sources)AntihistamineStart: 07-06-2018 End: 85-39-8700dxzi 25 mg by mouth every three hoursHydroxyzine Pamoate Discontinued 25 MG PO Q3H July 06, 2018 12:00am July 14, 2018 12:24pm Start: 07-06-2018 End: 18-11-2368nzfh 50 mg by mouth every three hoursHydroxyzine Pamoate Discontinued 50 MG PO Q3H July 06, 2018 12:00am July 14, 2018 12:23pm Ketorolac (12 sources)Nonsteroidal Anti-inflammatory Drug, Cyclooxygenase InhibitorStart: 53-98-4494Iezwsio per 15 mg May, 30 mgStart: 98-96-6234Mjhhyri per 15 mg Oct, 30 mg24 hr metFORMIN hydrochloride 500 mg extended release oral tablet (20 sources)BiguanideStart: 06-18-2023 End: 97-62-1613eogk 500 mg by mouth once daily in the eveningMetformin Discontinued 500 MG PO Every evening 90 December 07, 2023 8:39am December 07, 2023 8:40amStart: 35-58-7734hwdz 1 tablet by mouth once daily in the evening Metformin 500mg metFORMIN 500mg, 1 (one) Tablet every evening # 0, 03/16/2022, No Refill. Active oral every evening for 0 *Reorder from [employer] for eRx and Interaction Alerts* Feb, Activetake 1 tablet by mouth every twenty-four hours at bedtimemetFORMIN XR (Glucophage-XR) 500 MG 24 hr tablet Take 500 mg by mouth at bedtime Activetake 1 tablet by mouth once daily in the eveningmetFORMIN HCl ER 500 MG TAKE 1 TABLET BY MOUTH EVERY EVENING for 90 ActivemetFORMIN HCl Not-Taking/PRNmetFORMIN HCl Not-TakingmethylPREDNISolone 4 mg oral tablet (5 sources)CorticosteroidStart: 12-16-2023 End: 41-12-7548nyuh 1 tablet by mouth onceMethylprednisolone (Medrol (Eric)) 4 mg tablets,dose pack Discontinued 0 PO per package directions December 28, 2023 2:58pm January 24, 2024 10:03am PO PER PKG DIR for 6 daysmidodrine hydrochloride 5 mg oral tablet (5 sources)alpha-Adrenergic AgonistStart: 06-21-2023 End: 81-00-9970ghmu 1 dose by mouth once daily at bedtimeMidodrine Discontinued 5 MG PO Three times daily June 21, 2023 1:00am August 12, 2023 11:11am donot give last dose of day after 6PM or within 4 hrs of bedtimeMultivitamin (Multiple Vitamins) Tablet (5 sources)Start: 06-22-2018 End: 77-33-7532ugaf 1 tablet by mouth once dailyMultivitamin (Multiple Vitamins) Tablet Discontinued 1 TAB PO Daily June 22, 2018 1:00am July 14, 2018 12:27pmMultivitamin With Folic Acid (Thera) 400 mcg Tablet (5 sources)Start: 07-14-2018 End: 47-97-6598jrri 1 tablet by mouth once dailyMultivitamin With Folic Acid (Thera) 400 mcg Tablet Discontinued 1 TAB PO Daily July 14, 2018 12:00am June 18, 2023 3:38pmoxyCODONE hydrochloride 5 mg oral tablet (20 sources)Opioid AgonistStart: 07-14-2018 End: 72-45-4192rjaj 5 mg by mouth every six hoursOxycodone Discontinued 5 MG PO Every 6 hours 05 09July 14, 2018 12:00am June 18, 2023 3:38pmStart: 07-06-2018 End: 16-67-0244jrpy 10 mg by mouth every four hoursOxycodone Discontinued 10 MG PO Every 4 hours July 06, 2018 2:17pm July 14, 2018 12:27pmStart: 07-06-2018 End: 36-51-6560yuur 5 mg by mouth every four hoursOxycodone Discontinued 5 MG PO Every 4 hours July 06, 2018 2:17pm July 14, 2018 12:28pmsacubitril 24 mg / valsartan 26 mg oral tablet (8 sources)Angiotensin 2 Receptor BlockerStart: 06-18-2023 End: 62-46-0001wnnv 1 tablet by mouth twice dailySacubitril-Valsartan (Entresto) 24-26 mg tablet Discontinued 1 TAB PO Twice daily June 18, 2023 1:00am August 12, 2023 11:12amtake 1 tablet by mouth every twelve hoursEntresto 24-26 MG 1 tablet Orally Twice a day ActiveTriamcinolone (12 sources)CorticosteroidStart: 28-18-0119Ybbxsry -40 mg May, 40 mg Start: 79-08-2595YKKFGOG - 10 mg Oct, 40 mgvitamin b12 1 mg oral tablet (13 sources)Vitamin W88Xgztq: 06-22-2018 End: 45-05-9125oosi 1000 ug by mouth once dailyCyanocobalamin (Vitamin B-12) Discontinued 1000 MCG PO Daily July 14, 2018 12:00am June 18, 2023 3:38pmVitamin B 12 Active Problems Active Problems Problem ClassificationProblemDateDocumented DateEpisodic/ChronicAcquired foot deformities (4 sources)Toe joint rigid; Translations: [Hallux rigidus, left foot]10-05-2024 ChronicAcquired foot deformities (4 sources)Toe joint rigid; Translations: [Hallux rigidus, right foot]10-05-2024 ChronicAcute and unspecified renal failure (5 sources)Acute renal failure syndrome; Translations: [Acute kidney failure, unspecified]32-28-0265CvoyyqppKdomk bronchitis (12 sources)Acute bronchitis; Translations: [Acute bronchitis due to other specified organisms]EpisodicAdministrative/social admission (5 sources)Other reduced mobility; Translations: [Impaired mobility and activities of daily living]78-52-2713TzvjlbasZtixpwz dysrhythmias (20 sources)Premature beats; Translations: [Other premature beats]Onset: 88-29-7751LxihjrhJrmfrer dysrhythmias (4 sources)Palpitations; Translations: [Palpitations]Onset: 20-25-5563Tcacsuxn Chronic obstructive pulmonary disease and bronchiectasis (6 sources)Bronchitis; Translations: [Bronchitis, not specified as acute or chronic]EpisodicCoagulation and hemorrhagic disorders (11 sources)Immune thrombocytopenic purpura; Translations: [Immune thrombocytopenic purpura]14-34-7737AiqblgrNnxgxhoxbi associated with dizziness or vertigo (2 sources)Dizziness; Translations: [Dizziness]Onset: 93-32-5299Nyrvwufk Conduction disorders (7 sources)Left bundle-branch block, unspecified; Translations: [Left bundle branch block]Onset: 11-33-2535LwnafikKhwwplttqr heart failure; nonhypertensive (10 sources)Congestive heart failure; Translations: [Heart failure, unspecified] Onset: 59-05-8555SpzplmzDlefsysuiv and other anemia (11 sources)Anemia; Translations: [Anemia, unspecified]Onset: 07-29-2018 35-86-2967LvsyrycnJigmiumv mellitus with complications (17 sources)Hyperglycemia due to type 2 diabetes mellitus; Translations: [Type 2 diabetes mellitus with hyperglycemia]68-46-2951SqcykkeItcxjlzt mellitus without complication (6 sources)Impaired fasting glycemia; Translations: [Impaired fasting glucose] EpisodicEssential hypertension (20 sources)Essential hypertension; Translations: [Essential (primary) hypertension]Onset: 30-56-5686QhuqrolRqimo and electrolyte disorders (5 sources)Hypokalemia; Translations: [Hypokalemia]09-31-0592Uqaiapkr Genitourinary symptoms and ill-defined conditions (6 sources)Finding of frequency of urination; Translations: [Frequency of micturition]EpisodicHypertension with complications and secondary hypertension (2 sources)Hypertensive heart disease with heart failure; Translations: [Hypertensive heart disease with heartfailure]Onset: 21-53-6416YrjedxqObombre and fatigue (2 sources)Fatigue; Translations: [Fatigue]Onset: 67-92-8208SwgwyuyjRsgqqrf (4 sources)Pain in toe; Translations: [Tinea unguium]44-22-0225Eavvgabl Osteoarthritis (20 sources)Osteoarthritis; Translations: [Unspecified osteoarthritis, unspecified site]Onset: 44-68-0891VmyijoyGerco circulatory disease (2 sources)Presence of other cardiac implants and grafts; Translations: [Presence of other cardiac implants and grafts]Onset: 29-27-7953WasprhrHawdk circulatory disease (6 sources)Elevated blood-pressure reading without diagnosis of hypertension; Translations: [Elevated blood-pressure reading, without diagnosis of hypertension]EpisodicOther connective tissue disease (11 sources)History of total knee arthroplasty; Translations: [Presence of right artificial knee joint]19-96-9807WdqsxkoMhpya connective tissue disease (6 sources)Pain in limb; Translations: [Pain in right finger(s)]EpisodicOther connective tissue disease (1 source)Pain in left foot; Translations: [Pain in limb]75-82-3499DhzizshpVivze connective tissue disease (2 sources)Swelling of right lower limb; Translations: [Other specified soft tissue disorders]77-14-2555MhshacjdWbjwr connective tissue disease (2 sources)Other specified soft tissue disorders; Translations: [Swelling of limb]39-97-3808NowmahhtPrmvr diseases of bladder and urethra (11 sources)Overactive bladder; Translations: [Overactive bladder]Onset: 075858-77-7032BphmyfpGjrby diseases of veins and lymphatics (4 sources)Vascular insufficiency; Translations: [Venous insufficiency (chronic) (peripheral)]70-57-1085QpsgenzyTbxaa gastrointestinal disorders (6 sources)Irritable bowel syndrome with diarrhea; Translations: [Irritable bowel syndrome with diarrhea]ChronicOther gastrointestinal disorders (6 sources)Diarrhea; Translations: [Diarrhea, unspecified]EpisodicOther nervous system disorders (5 sources)Postoperative pain ; Translations: [Other acute postprocedural pain] 87-48-4927VxrcpmfhHrjpf nutritional; endocrine; and metabolic disorders (6 sources)Morbid obesity; Translations: [Morbid (severe) obesity due to excess calories]Onset: 67-96-7380GlscjgjSxbza nutritional; endocrine; and metabolic disorders (17 sources)Body mass index 40+ - severely obese; Translations: [Body mass index (BMI) 60.0-69.9, adult]35-61-7901ElmacmcZardr screening for suspected conditions (not mental disorders or infectious disease) (18 sources)Abnormal electrocardiogram [ECG] [EKG]; Translations: [Other abnormal and inconclusive findings on diagnostic imaging of breast]Onset: 21-63-7749HreqgcwmDrqlr upper respiratory disease (6 sources)Seasonal allergic rhinitis; Translations: [Other seasonal allergic rhinitis]Onset: 85-55-0942ScnqfszLkhcq upper respiratory disease (6 sources)Allergic rhinitis; Translations: [Allergic rhinitis, unspecified] ChronicOther upper respiratory infections (6 sources)Sinusitis; Translations: [Chronic sinusitis, unspecified]ChronicPeri- ; endo-; and myocarditis; cardiomyopathy (except that caused by tuberculosis or sexually transmitted disease) (2 sources)Cardiomyopathy in diseases classified elsewhere; Translations: [Cardiomyopathy in diseases classified elsewhere]Onset: 93-16-3326Mlirbgp Phlebitis; thrombophlebitis and thromboembolism (5 sources)H/O: Deep vein thrombosis; Translations: [Personal history of other venous thrombosis and embolism]21-96-2562KgjlpbcbIqoqwjjd codes; unclassified (14 sources)Obstructive sleep apnea syndrome; Translations: [Obstructive sleep apnea (adult) (pediatric)]Onset: 070349-16-1047BxtqpulTbumwnpz codes; unclassified (1 source)Obstructive sleep apnea (adult) (pediatric)ChronicResidual codes; unclassified (6 sources)Family history of diabetes mellitus; Translations: [Family history of diabetes mellitus]EpisodicResidual codes; unclassified (6 sources)Localized edema; Translations: [Localized edema]EpisodicSkin and subcutaneous tissue infections (12 sources)Localized infection of skin AND/OR subcutaneous tissue; Translations: [Unspecified local infection of skin and subcutaneous tissue] Onset: 71-16-8961NnwjojudPqfepjcbhgu; intervertebral disc disorders; other back problems (13 sources)Low back pain; Translations: [Lumbago]Onset: EpisodicUnclassified (3 sources)Other ventricular tachycardia; Translations: [Other ventricular tachycardia] Past or Other Problems Problem ClassificationProblemDateDocumented DateEpisodic/ChronicNonspecific chest pain (6 sources)Chest pain; Translations: [Chest pain, unspecified]Onset: 06-25-2015 EpisodicOther circulatory disease (2 sources)Personal history of other diseases of the circulatory system; Translations: [Personal history of other diseases of the circulatory system] Onset: 26-34-5262PxwfpvbeTgper gastrointestinal disorders (4 sources)Diarrhea, unspecified; Translations: [DIARRHEA UNSPECIFIED]Onset: 58-78-9701AunjtsxlCywrz liver diseases (6 sources)Elevated levels of transaminase & lactic acid dehydrogenase; Translations: [Nonspecific elevation of levels of transaminase or lactic acid dehydrogenase (LDH)]Onset: 20-47-8228WtrcaalaZyjvc non-traumatic joint disorders (6 sources)Arthralgia of the ankle and/or foot; Translations: [Pain in joint, ankle and foot]Onset: 46-54-0019LmrostivWctuz non-traumatic joint disorders (6 sources)Arthralgia of the lower leg; Translations: [Pain in joint, lower leg] Onset: 82-99-1762ShwvwihzBqfuv upper respiratory infections (6 sources)Acute maxillary sinusitis; Translations: [Acute recurrent maxillary sinusitis]Onset: 96-28-9862QkvlqkxoOwuxzkua codes; unclassified (2 sources)Other specified postprocedural states; Translations: [Other specified postprocedural states]Onset: 12-01-7885JmcfwdvxAyvzvngdbcxb (1 source)Contact with and (suspected) exposure to covid-19 Z20.822Unclassified (5 sources)Lack of stamina; Translations: [Impaired endurance]70-19-4430Amjzy infection (1 source)COVID-19 Results Test NameValueInterpretationReference RangeFacilityOffice Visiton 02-20-2025 Follow-up [id number] Fern Cardoso 1960 F Date Provider Department Center 02/20/2025 Yoana-NICOLASA CRONIN ELAINE Lyle [facility] Family History Problem Relation Age of Onset Heart attack Mother Stroke Mother Atrial fibrillation Father Heart attack Brother Stroke Brother Family Status - Relation Status Age at Mother Father Brother Level of Service:87888 NC OFFICE/OUTPATIENT ESTABLISHED LOW [facility] 20 MIN Reason for Visit and Comments: Follow-up [025611] - Patient is here today for a 3 month follow up. Patient states she feels ok. Patient denies chest pain, Patient complains of increase in dizziness/lightheaded, palpitation/racing heart which has decrease with the increase in carvedilol with position changes, neck and back pain. Congestive Heart Failure [127] Atrial Fibrillation [80] Hypertension [413026] Dizziness [022303] - Increased dizziness/light headed with position changes Fatigue [46] - Increased in fatigue Palpitations [546474]NormalUniversity Hospitals Lake West Medical CenterHLA L07-Xiqipe 67-58-4165PBE B27 Intrp-MayoSEE BELOWNormalKettering Health Washington TownshipComment on above:Result Comment: RESULT: HLA-B27 antigen was not detected. ADDITIONAL INFORMATION Method: Flow Cytometry CLIA: [id number] CLIA Detective Sergeant: LINDEN DUNCAN,Ph.D. Test Performed by: [address] [address] Detective Sergeant: Linden Duncan Ph.D.; CLIA# [id number] By: #### HLA O30-Vrpf #### [place], [place] [address]HLA Z14-JpiiAepmyzfyYnuwalWkq ApplicableKettering Health Washington TownshipComment on above:Performed By: #### HLA [id number] #### [address] [address]Usjlmdtprfqo Office/Clinic Noteon [phone] Office/Clinic NoteChief Complaint neck pain, lower back pain, decreased quality of life, previously saw UC for neck pain, previously dx lower back as RA History of Present Illness The content of this note was generated by an artificial intelligence (AI) language dictation. The patient or guardian has given their consent for the use of AI technology during the visit to capture and process the conversation. The AI will assist in providing information and support throughout the discussion. The AI will not store personal or sensitive information beyond the scope of this session, and the purpose is solely to facilitate the conversation. Referring Provider: Mekhi WOOD [facility] Reason for referral: RA Patient is here for above referral. Referring provider's note reviewed from: PATIENT INTERVIEW/HISTORY: She was told 20 some years ago by a doctor, some specialist, that she had RA in her back and that she had a back of a 71 year old but there was nothing she could do about it. Xrays were never done. 10 years later she saw her PCP. She was given injections in her spine which helped until 8-9 mos ago. 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 Explain if yes: [_] History of unusual rashes ([_]) - were any seen by a service liaison representative or biopsied by any provider? ([_]) History of mouth or nose sores (not cold sores) ([_]) History of hair loss more than expected for age ([_]) Frequent dry mouth ([_]) Frequent dry or sand paper feeling in eyes ([_x]) Visually noticeable skin tightening (does not include tightening because of joint swelling) ([_]) Trouble swallowing ([_]) Weakness in a specific part of the body ([_]) Personal history of Inflammatory Bowel Disease eg. Crohns or Ulcerative Colitis (this does not include diverticulitis or irritable bowel syndrome) ([_]) Personal history of psoriasis ([_]) Ever told that he/she had gout? ([_]) Back pain for months or years ([_x]) Ank Spond Entry criterion: Back pain >=3 months Patient's back pain started Before 46 yrs of age. + [[_]] sacroiliitis on imaging? (MRI or definite radiographic sacroiliitis according to modified [place] criteria) [[_]] 1+ SpA features present below Ank Spond OR + [[_]] HLAB27 + [[_]] 2+ SpA features present below nrAx-SpA SpA features 1. Age <40 at onset [[_x]]. Onset was gradual. It gets worse with exercise. Yes, there is improvement with rest. There is not back pain at night with improvement on rising. -> 4 criteria met therefore, inflammatory back pain is present ([_]) 2. alternating buttock pain ([_]) 3. Pain at night or morning stiffness ([_]) 4. Uveitis ([_]) 5. Arthritis (asymmetrical arthritis) ([_]) 6. Dactylitis ([_]) 7. Heel pain ([x_]) 8. Good response to NSAIDs ([_]) 9. Psoriasis ([_]) 10. H/o IBD ([_]) 11. Family history of ankylosing spondylitis ([_]) 12. Elevated CRP ([_]) ? if HLAB27 negative, xrays of SI joints negative and have 1 SpA feature, we may order MRI of pelvis Medications tried for joint pain: ibuprofen 400 mg tid-didn't help aleve 1 tab- didn't help tylenol 1000 mg- didn't help steroid taper- helped pain in back and neck Non medicinal treatments tried for joint pain: PT for back- didn't help for one session injections of spine- helped The doctors that the patient has seen for issues related to this referral include: Rheumatologic medications tried (if any): [_] Review of Systems REVIEW OF SYSTEMS for symptoms for the last couple weeks only (marked if present): Constitutional: Fevers ([_]) Concern for current infection ([_]) Cardiovascular: chest pain ([_]) Respiratory: shortness of breath ([_]) Cough ([_]) Genitourinary: Hematuria (blood in urine) ([_]) Dysuria (burning when peeing) ([_]) Skin: rash ([_]) Completed ROS: ([_x]) Physical Exam Vitals & Measurements HR: 77 (Peripheral) BP: 100/65 HT: 165 cm WT: 158.8 kg WT: 158.8 kg (Dosing) BMI: 58.33 Sections left blank if not examined Constitutional: see vitals, Vital Signs (last 24 hrs) Last Charted Heart Rate Peripheral 77 bpm (SEP 30 14:18) SBP 100 mmHg (SEP 30 14:18) DBP 65 mmHg (SEP 30 14:18) Weight 158.8 kg (SEP 30 14:18) no acute distress Eyes: no obvious conjunctivitis Respiratory: normal effort Cardiovascular: Psychological: normal mood Skin: Nailfold capillar (more content not included)...NormalBlanchard Lynnwood Health SystemANA Jmd-8-Bjrzri 22-66-2220ACM Cytoplasmic Pattern-MayoNot ReportedNormal [facility] Health SystemComment on above:Performed By: #### Antinuclear Antibody HEp-2 Substrate-May #### [facility] [address], [place] [address]AWY Lab Comment-MayoNot ReportedNormalBlcity hospitalard Lynnwood Health SystemComment on above:Performed By: #### Antinuclear Antibody HEp-2 Substrate- May #### [facility] [address], [place] [address]WGV Pattern (2)-MayoNot ReportedNormalBlcity hospitalard Lynnwood Health SystemComment on above:Performed By: #### Antinuclear Antibody HEp-2 Substrate- May #### [facility] [address], [place] [address]ECB Pattern-MayoNot ReportedNormalSumma Health Health SystemComment on above:Performed By: #### Antinuclear Antibody HEp-2 Substrate- May #### [facility] [address], [place] [address]ELT Titer (2)-MayoNot ReportedNormalSumma Health Health SystemComment on above:Performed By: #### Antinuclear Antibody HEp-2 Substrate- May #### [facility] [address], [place] [address]YJL Titer-MayoNot ReportedNormalSumma Health Health SystemComment on above:Performed By: #### Antinuclear Antibody HEp-2 Substrate- May #### [facility] [address], [place] [address]GWq-1 ILSA-MayoSEE BELOWNormal<1:80 (Negative)[facility] Health Health SystemComment on above:Result Comment: RESULT: <1:80 (Negative) ADDITIONAL INFORMATION Method: Immunofluorescence using HEp-2 cellular substrate. Test Performed by: [facility] [address] [place] [id number] Detective Sergeant: Linden Duncan Ph.D.; CLIA# [id number] By: #### Antinuclear Antibody HEp-2 Substrate-May #### [facility] [address] [place], [place] [address]TKN Ab-[facility] 60-97-9540VOG Ab-Reeec<15.6Normal<20.0 (Negative)[facility] Washington TownshipComment on above:Result Comment: Interpretation: Antibodies to CCP not detected. If clinical symptoms are strongly indicative for rheumatoid arthritis, suggest testing for Rheumatoid Factor, S (RHUT) and, if positive, Rheumatoid Factor Panel, S (RFPN), which includes differentiation of rheumatoid factor IgM and IgA isotypes. Test Performed by: [facility] [place] [address] Detective Sergeant: Linden Duncan Ph.D.; CLIA# [id number] By: #### Cyclic Citrullinated Peptide Antibody-Ma #### [facility] [address], [place] [address]YR-F and SS-B Ab, S-[facility] 52-97-1915RQ-A/Ro IgG-Reece<0.2 Normal<1.0 (Negative)[facility] Washington TownshipComment on above:Performed By: #### CD:[id number] #### [facility] [address] [place], [place] [address]HK-H/La IgG-Reece<0.2Normal<1.0 (Negative)[facility] TownshipComment on above:Result Comment: Test Performed by: [facility] [place] [address] Detective Sergeant: Linden Duncan Ph.D.; CLIA# [id number] By: #### CD:[id number] #### [facility] [address] [place], [place] [address]Fsybwlzodv Factor, Serumon 33-06-3849Lzabufhfdy Factor,Serum <10.7Iusxjg6.0-14.0K[facility] Washington TownshipComment on above:Performed By: #### CD:[id number] #### [address] [address]LRCwa 03-59-8793WNP [Mass/Vol]2.0 mg/LNormal0.0-9.9BTrumbull Memorial HospitalComment on above:Result Comment: For normal applications of CRP: 10 - 50 mg/L indicates mild inflammation 50 - 100 mg/L indicates more severe inflammation >100 mg/L indicates serious processeses and frequently indicates the presence of a bacterial infection CRP measurement is useful for assessment of non-specific INFLAMMATORY RESPONSE to infection or injury AND is a sensitive marker of ACUTE INFLAMMATION including CARDIAC RISK ASSESSMENT. CARDIAC patients with elevated CRP are POTENTIALLY at a HIGHER RISK of FUTURE CARDIAC EVENTS.Performed By: #### CRP #### [address] [address]WYBeo 59-90-7335Seu Rate41 mm/hrHigh0-30K[facility] Health Washington TownshipComment on above:Performed By: #### ESR #### [address] [address]Tqpqdn Onlyon 82-64-1209Tesjkm [id number] Fern Cardoso A 1960 F Date Provider Department Center 01/05/2025 [id number], HISTORICAL CARD [facility] Family History Problem Relation Age of Onset Heart attack Mother Stroke Mother Atrial fibrillation Father Heart attack Brother Stroke Brother Family Status - Relation Status Age at Mother Father Brother DeceasedNormalUniHolmes County Joel Pomerene Memorial HospitalOrders Onlyon 44-84-3639Oytalm [id number] TristanFern A 1960 F Date Provider Department Center 01/04/2025 [id number] REINOSO [facility] Family History Problem Relation Age of Onset Heart attack Mother Stroke Mother Atrial fibrillation Father Heart attack Brother Stroke Brother Family Status - Relation Status Age at Mother Father Brother DeceasedNormalUniHolmes County Joel Pomerene Memorial HospitalOrders Onlyon 24-61-6568Unjsjv [id number] TristanFern A 1960 F Date Provider Department Center 12/02/2024 [id number] REINOSO HVC CARD [facility] Family History Problem Relation Age of Onset Heart attack Mother Stroke Mother Atrial fibrillation Father Heart attack Brother Stroke Brother Family Status - Relation Status Age at Mother Father Brother DeceasedNoalUPike Community HospitalOffice Visiton [id number]-up [id number] Fern Cardoso A 1960 F Date Provider Department Center 11/29/2024 BENY LAZAR CARD [facility] Family History Problem Relation Age of Onset Heart attack Mother Stroke Mother Atrial fibrillation Father Heart attack Brother Stroke Brother Family Status - Relation Status Age at Mother Father Brother Level of Service:89102 NC OFFICE/OUTPATIENT ESTABLISHED MOD MDM 30 MIN Reason for Visit and Comments: Congestive Heart Failure [127] Atrial Fibrillation [80] Hypertension [180782][facility] HospitalOrders Onlyon 81-61-2117Iluhun [id number] CardosoFern briggs A 1960 F Date Provider Department Center 10/28/2024 NICOLASA WILLIS HVC CARD [facility] Family History Problem Relation Age of Onset Heart attack Mother Stroke Mother Atrial fibrillation Father Heart attack Brother Stroke Brother Family Status - Relation Status Age at Mother Father BrotherNoMcKitrick HospitalOffice Visiton 14-59-2767Zjylpf- up [id number] Fern Cardoso A 1960 F Date Provider Department Center 06/09/2024 [id number] CROFT CARD [facility] Family History Problem Relation Age of Onset Heart attack Mother Stroke Mother Atrial fibrillation Father Heart attack Brother Stroke Brother Family Status - Relation Status Age at Mother Father Brother Level of Service:89639 NC OFFICE/OUTPATIENT ESTABLISHED LOW MDM 20 MINNormal [facility] CenterOrders Onlyon 28-30-2362Obovwt [id number] TristanFern A 1960 F Date Provider Department Center 06/09/2024 [id number] CROFT HVC CARD [facility] Family History Problem Relation Age of Onset Heart attack Mother Stroke Mother Atrial fibrillation Father Heart attack Brother Stroke Brother Family Status - Relation Status Age at Mother Father BrotherNormalUPike Community HospitalOrders Onlyon 88-27-0083Mzuiqg [id number] Cardoso,Fern A 1960 F Date Provider Department Center 05/15/2024 NICOLAS JEFFREY CARD [facility] Family History Problem Relation Age of Onset Heart attack Mother Stroke Mother Atrial fibrillation Father Heart attack Brother Stroke Brother Family Status - Relation Status Age at Mother Father BrotherNormalUniversity of Baylor Scott & White Medical Center – TaylorBasophils Auto (Bld) [#/Vol]on 61-95-9706Lciyrcutg (Bld) [#/Vol]0.0 10 3/uL0.0-0.1FCleveland Clinic Hillcrest HospitalBasophils/100 WBC Auto (Bld)on 73-05-6165Amkbpropi/100 WBC (Bld)1.0 % 0.2-2.0[facility] HospitalEosinophils/100 WBC Auto (Bld)on 31-86-7971Klouynbtqoa/100 WBC (Bld)3.6 %0.9-7.0[facility] Erythrocyte distribution width Auto (RBC) [Ratio]on 12-77-8291Yvrbxqhcplw distribution width (RBC) [Ratio]13.6 %11.0-15.0[facility] Estimated glomerular filtration rate (GFR) non- Americanon 10-19-2023 GFR/1.73 sq M.predicted among non-blacks MDRD (S/P/Bld) [Vol rate/Area]41 mL/min/{1.73_m2}Low>=60[facility] HospitalHematocrit Auto (Bld) [Volume fraction]on 59-27-8854Mqcchzrlgr (Bld) [Volume fraction]36.4 %36.0-48.0 [facility] HospitalHemoglobin [Mass/volume] in Bloodon 10-19-2023 Hemoglobin (Bld) [Mass/Vol]11.5 g/dLLow12.0-16.0[facility] HospitalLaboratory - Chemistry and Chemistry - challengeon 29-30-8389Mivskrb [Mass/Vol]8.5 mg/dL8.5-10.1FCleveland Clinic Hillcrest HospitalChloride [Moles/Vol] 102 mmol/T41-421TqvnbpibfMartins Ferry HospitalCO2 [Moles/Vol]31.2 mmol/L 21.0-32.0[facility] HospitalCreatinine [Mass/Vol]1.31 mg/dLHigh 0.55-1.02[facility] HospitalGFR/1.73 sq M.predicted MDRD (S/P/Bld) [Vol rate/Area]50 mL/min/{1.73_m2}Low>=60[facility] Glucose [Mass/Vol]148 mg/vONghz63-608DkcttyaynMartins Ferry HospitalPotassium [Moles/Vol]3.8 mmol/L3.5-5.1FEast Liverpool City Hospitalodium [Moles/Vol] 142 mmol/C470-383UcovrbtklMartins Ferry HospitalUrea nitrogen [Mass/Vol]22.0 mg/dLHigh7.0-18.0[facility] HospitalUrea nitrogen/Creatinine [Mass ratio]16.8 mg/mgMartins Ferry HospitalLaboratory - Hematology and Cell countson 76-44-9748Dowqlrer granulocytes/100 WBC (Bld)0.3 %0.0-0.5FCleveland Clinic Hillcrest HospitalLeukocytes [#/volume] corrected for nucleated erythrocytes in Blood by Automated counon 57-78-3330LDN corrected for nucl RBC Auto (Bld) [#/Vol]3.9 10 3/uLLow4.0-11.0[facility] Lymphocytes Auto (Bld) [#/Vol]on 54-87-0071Jdzyxbsbynb (Bld) [#/Vol]1.0 10 3/uL Low1.2-3.8[facility] HospitalLymphocytes/100 WBC Auto (Bld)on 89-77-3483Myxriafsvsz/100 WBC (Bld)26.3 %20.5-60.0[facility] HospitalH Auto (RBC) [Entitic mass]on 25-64-3008SQN (RBC) [Entitic mass]28.3 pg 26.7-34.0[facility] HospitalMCHC Auto (RBC) [Mass/Vol]on 53-73-1633BBNJ (RBC) [Mass/Vol]31.6 g/dL29.9-35.2FCleveland Clinic Hillcrest HospitalMCV Auto (RBC) [Entitic vol]on 85-74-5527DUG (RBC) [Entitic vol]89.4 fL 81.0-99.0[facility] HospitalMonocytes Auto (Bld) [#/Vol]on 56-78-5706Ztaxlvzhk (Bld) [#/Vol]0.3 10 3/uL0.3-0.8[facility] HospitalMonocytes/100 WBC Auto (Bld)on 75-74-3862Wlbjiqsnn/100 WBC (Bld)6.4 % 1.7-12.0[facility] HospitalNeutrophils Auto (Bld) [#/Vol]on 07-74-2421Adktvtnjmty (Bld) [#/Vol]2.4 10 3/uL1.4-6.5FCleveland Clinic Hillcrest HospitalNeutrophils/100 WBC Auto (Bld)on 37-48-0692Zfncxzxfcho/100 WBC (Bld)62.4 % 43.0-75.0[facility] HospitalNo Panel Informationon 10-19-2023 Eosinophils # (Auto)0.1 10 3/uL0.0-0.7FCleveland Clinic Hillcrest HospitalImmature Granulocyte # (Auto)0.01 10 3/uL0.00-0.03[facility] Platelet mean volume Auto (Bld) [Entitic vol]on 47-45-2105Tbgyfcnn mean volume (Bld) [Entitic vol]10.8 fL9.5-13.5FCleveland Clinic Hillcrest HospitalPlatelets Auto (Bld) [#/Vol]on 99-79-4025Lbgwuqwer (Bld) [#/Vol]122 10 3/cUBxu731-240 [facility] HospitalRBC Auto (Bld) [#/Vol]on 72-32-4940IFP (Bld) [#/Vol]4.07 10 6/uLLow4.20-5.40[facility] Hospitalerum or plasma anion gap determinationon 49-42-7270Tnlcm gap [Moles/Vol]12.6 mmol/LFCleveland Clinic Hillcrest HospitalGlucose mean value [Mass/volume] in Blood Estimated from glycated hemoglobinon 93-39-5908Gzvycez glucose Estimated from glycated hemoglobin (Bld) [Mass/Vol]111 mg/dLMartins Ferry HospitalLaboratory - Hematology and Cell countson 29-22-9776MeL8v (Bld) [Mass fraction]5.5 %4.5-6.2 [facility] HospitalComment on above:ADA RECOMMENDED LIMIT 4.0 - 6.0ADA THERAPEUTIC TARGET < 7.0ACTION SUGGESTED> 7.0Basophils Auto (Bld) [#/Vol] on 47-23-2339Ybgpxhpen (Bld) [#/Vol]0.1 10 3/uL0.0-0.1FCleveland Clinic Hillcrest HospitalBasophils/100 WBC Auto (Bld)on 34-06-5066Xavfzmzfi/100 WBC (Bld)1.2 % 0.2-2.0[facility] HospitalEosinophils/100 WBC Auto (Bld)on 27-96-6322Gintgzovfuw/100 WBC (Bld)4.3 %0.9-7.0[facility] Erythrocyte distribution width Auto (RBC) [Ratio]on 36-90-9588Xyoefjxmnzg distribution width (RBC) [Ratio]15.3 %11.0-15.0[facility] Estimated glomerular filtration rate (GFR) non- Americanon 07-09-2023 GFR/1.73 sq M.predicted among non-blacks MDRD (S/P/Bld) [Vol rate/Area]43 mL/min/{1.73_m2}>=60[facility] HospitalHematocrit Auto (Bld) [Volume fraction]on 92-95-8297Xvfatcsjih (Bld) [Volume fraction]40.3 %36.0-48.0 [facility] HospitalHemoglobin [Mass/volume] in Bloodon 07-09-2023 Hemoglobin (Bld) [Mass/Vol]12.8 g/dL12.0-16.0[facility] Laboratory - Chemistry and Chemistry - challengeon 34-21-5447Jrnwjok [Mass/Vol] 8.9 mg/dL8.5-10.1FC[facility] Clinic Hillcrest HospitalChloride [Moles/Vol]102 mmol/L 98-107[facility] HospitalCO2 [Moles/Vol]30.1 mmol/L21.0-32.0 [facility] HospitalCreatinine [Mass/Vol]1.27 mg/dL0.55-1.02 [facility] HospitalGFR/1.73 sq M.predicted MDRD (S/P/Bld) [Vol rate/Area]52 mL/min/{1.73_m2}>=60[facility] HospitalGlucose [Mass/Vol]114 mg/eB09-517DgoimybgqMartins Ferry HospitalPotassium [Moles/Vol] 3.7 mmol/L3.5-5.1FEast Liverpool City Hospitalodium [Moles/Vol]142 mmol/L 136-145Mart[facility]erry HospitalUrea nitrogen [Mass/Vol]18.0 mg/dL 7.0-18.0[facility] HospitalUrea nitrogen/Creatinine [Mass ratio] 14.2 mg/mgMartins Ferry HospitalLaboratory - Hematology and Cell countson 94-03-0515Dgbjmhmb granulocytes/100 WBC (Bld)0.2 %0.0-0.5FCleveland Clinic Hillcrest HospitalLeukocytes [#/volume] corrected for nucleated erythrocytes in Blood by Automated counon 99-18-2909CNO corrected for nucl RBC Auto (Bld) [#/Vol]4.2 10 3/uL4.0-11.0[facility] Lymphocytes Auto (Bld) [#/Vol]on 15-26-4244Fqvdfxqqnfu (Bld) [#/Vol]1.5 10 3/uL 1.2-3.8[facility] HospitalLymphocytes/100 WBC Auto (Bld)on 79-84-6561Daztfjxfeyk/100 WBC (Bld)34.8 %20.5-60.0[facility] HospitalMCH Auto (RBC) [Entitic mass]on 80-05-7908CIY (RBC) [Entitic mass]29.0 pg 26.7-34.0[facility] HospitalMCHC Auto (RBC) [Mass/Vol]on 14-65-1958YQIV (RBC) [Mass/Vol]31.8 g/dL29.9-35.2FC[facility] Clinic Hillcrest HospitalMCV Auto (RBC) [Entitic vol]on 66-69-9280EWY (RBC) [Entitic vol]91.4 fL 81.0-99.0[facility] HospitalMonocytes Auto (Bld) [#/Vol]on 18-36-7671Aghzoudqc (Bld) [#/Vol]0.3 10 3/uL0.3-0.8[facility] HospitalMonocytes/100 WBC Auto (Bld)on 90-58-2219Hodjwvduz/100 WBC (Bld)7.6 % 1.7-12.0[facility] HospitalNeutrophils Auto (Bld) [#/Vol]on 76-13-6803Eyoogewabri (Bld) [#/Vol]2.2 10 3/uL1.4-6.5FCleveland Clinic Hillcrest HospitalNeutrophils/100 WBC Auto (Bld)on 37-91-3633Zwvxwgqxvxo/100 WBC (Bld)51.9 % 43.0-75.0[facility] HospitalNo Panel Informationon 07-09-2023 Eosinophils # (Auto)0.2 10 3/uL0.0-0.7FC[facility] Clinic Hillcrest HospitalImmature Granulocyte # (Auto)0.01 10 3/uL0.00-0.03[facility] Platelet mean volume Auto (Bld) [Entitic vol]on 43-86-8774Kzonlgny mean volume (Bld) [Entitic vol]12.4 fL9.5-13.5FCleveland Clinic Hillcrest HospitalPlatelets Auto (Bld) [#/Vol]on 05-29-5721Rxpqoqtfa (Bld) [#/Vol]108 10 3/yT395-866 [facility] HospitalRBC Auto (Bld) [#/Vol]on 13-24-6269KLU (Bld) [#/Vol]4.41 10 6/uL4.20-5.40[facility] Hospitalerum or plasma anion gap determinationon 63-27-9709Cxzrh gap [Moles/Vol]13.6 mmol/LFCleveland Clinic Hillcrest HospitalCBC AUTO DIFFon 01-37-3914BUDD #0.0 103/ulNormal0.0-0.1 The [facility] CenterComment on above:Performed By: #### CBC #### [facility] [address] [address] [address] Rivas ZhaoBasophils/100 WBC (Bld)0.7 %Normal0.2-2.0The [facility] Comment on above:Performed By: #### CBC #### [facility] [address] [place] [address] Dr. Rivas Peter #0.2 103/ulNormal0.0-0.7The [facility] CenterComment on above: Performed By: #### CBC #### [facility] [address] [place] [address] Dr. Rivsa cDosinophils/100 WBC (Bld)3.4 %Normal0.9-7.0The [facility] Comment on above:Performed By: #### CBC #### [facility] [address] [place] [address] Dr. Rivas Dcrythrocyte distribution width (RBC) [Ratio]14.8 %Dqsbdr42.0-15.0 The [facility] CenterComment on above:Performed By: #### CBC #### [facility] [address] [place] [address] Dr. Rivas ZhaoHematocrit (Bld) [Volume fraction]38.4 %Rrreqn19.0-48.0The [facility] CenterComment on above:Performed By: #### CBC #### [facility] [address] [place] [address] Dr. Rivas ZhaoHemoglobin (Bld) [Mass/Vol]12.7 g/lSWlsjfl51.0-16.0The [facility] CenterComment on above:Performed By: #### CBC #### [facility] [address] [place] [address] Dr. Rivas Berry #0.01 10e3/ulNormal0.00-0.03The [facility] CenterComment on above:Performed By: #### CBC #### [facility] [address] [place] [address] Dr. Rivas Berry %0.2 %Normal0.0-0.5The [facility] CenterComment on above: Performed By: #### CBC #### [facility] [address] [address] [address] Rivas Corley #1.5 103/ulNormal1.2-3.8The [facility] CenterComment on above:Performed By: #### CBC #### [facility] [address] [address] [address] Rivas Riverohocytes/100 WBC (Bld)34.9 %Hzyzdj57.5-60.0The [facility] CenterComment on above:Performed By: #### CBC #### [facility] [address] [place] [address] Dr. Rivas Posey DIFF REQNONormalThe [facility] CenterComment on above: Performed By: #### CBC #### [facility] [address] [place] [address] Dr. Rivas Cristina (RBC) [Entitic mass]30.2 btZrlptn18.7-34.0The [facility] CenterComment on above:Performed By: #### CBC #### [facility] [address] [place] [address] Dr. Rivas Cristina (RBC) [Mass/Vol]33.1 g/mHVlkico12.9-35.2The [facility] CenterComment on above:Performed By: #### CBC #### [facility] [address] [place] [address] Dr. Rivas Cristina (RBC) [Entitic vol]91.2 wGGliqrq11.0-99.0The [facility] CenterComment on above:Performed By: #### CBC #### [facility] [address] [place] [address] Dr. Rivas Carlisle #0.3 103/ulNormal0.3-0.8The [facility] CenterComment on above:Performed By: #### CBC #### [facility] [address] [place] [address] Dr. Rivas Martinesocytes/100 WBC (Bld)5.9 %Normal1.7-12.0The [facility] Comment on above:Performed By: #### CBC #### [facility] [address] [address] [address] Rivas Rivera #2.4 103/ulNormal1.4-6.5The [facility] CenterComment on above:Performed By: #### CBC #### [facility] [address] [address] [address] Rivas Rasheedutrophils/100 WBC (Bld)54.9 %Flnqht34.0-75.0The [facility] CenterComment on above:Performed By: #### CBC #### [facility] [address] [place] [address] Dr. Rivas Whytelet mean volume (Bld) [Entitic vol]11.9 fLNormal9.5-13.5The [facility] County Health CenterComment on above:Performed By: #### CBC #### [facility] [address] [place] [address] Dr. Rivas ZhaoPLT107 103/ulCritically bps681-741Lcz [facility] CenterComment on above:Performed By: #### CBC #### [facility] [address] [place] [address] Dr. Rivas ZhaoRBC4.21 106/ulNormal4.20-5.40The [facility] County [facility] CenterComment on above:Performed By: #### CBC #### [facility] [address] [place] [address] Dr. Rivas ZhaoWBC4.4 103/ulNormal4.0-11.0The [facility] CenterComment on above: Performed By: #### CBC #### [facility] [address] [place] [address] Dr. Rivas ZhaoGLYCOHEMOGLOBIN A1Con 48-87-5269QYA RECOMMENDATIONSEE BELOWNormal [facility] HospitalComselect specialty hospital[facility] on above:Result Comment: ADA RECOMMENDED LIMIT 4.0 - 6.0 ADA THERAPEUTIC TARGET < 7.0 ACTION SUGGESTED > 7.0Performed By: #### A1C #### [facility] [address] [place] [address] Dr. Rivas ZhaoGlucose [Mass/Vol]117 mg/dLDelaware County HospitalComment on above:Performed By: #### A1C #### [facility] [address] [address] [address] Rivas ZhaoHbA1c (Bld) [Mass fraction]5.7 %Normal4.5-6.2[facility]rbana HospitalComment on above:Performed By: #### A1C #### [facility] [address] [place] [address] Dr. Rivas ZapienID PROFILEon 56-27-0423HYSE-HDL RATIO NORMSEE [facility] HospitalComment on above:Result Comment: 3.3 - 4.4 LOW RISK 4.4 - 7.1 AVERAGE RISK 7.1 - 11.0 MODERATE RISK >11.0 HIGH RISKPerformed By: #### LIPID, CMP #### [facility] [address] [place] [address] Dr. Rivas ZhaoCholesterol [Mass/Vol]160 mg/dLNormal<=200The [facility] Comment on above:Performed By: #### LIPID, CMP #### [facility] [address] [address] [address] Rivas Levyesterol in HDL [Mass/Vol]49 mg/rNUkwvfp31-57XgdMercy Health Urbana HospitalComselect specialty hospital-[facility] on above:Performed By: #### LIPID, CMP #### [facility] [address] [place] [address] Dr. Rivas ZhaoCholesterol in LDL [Mass/Vol]96.0 mg/dLDelaware County HospitalComment on above:Performed By: #### LIPID, CMP #### [facility] [address] [place] [address] Dr. Rivas Levyestersung.total/Cholesterol in HDL [Mass ratio]3.3 {ratio} NormalThe [facility] County Health CenterComment on above:Performed By: #### LIPID, CMP #### [facility] [address] [place] [address] Dr. Rivas ZhaoHDL NORMAL> or = 60 mg/dl - LOW CARDIOVASCULAR RISK <40 mg/dl - HIGH CARDIOVASCULAR RISKDelaware County HospitalComment on above:Performed By: #### LIPID, CMP #### [facility] [address] [place] [address] Dr. Rivas Fox CALC NORMALSEE BELOWDelaware County HospitalComment on above:Result Comment: <100 mg/dl OPTIMAL 100 - 129 mg/dl NEAR OR ABOVE OPTIMAL 130 - 159 mg/dl BORDERLINE HIGH 160 - 189 mg/dl HIGH >190 mg/dl VERY HIGH Performed By: #### LIPID, CMP #### [facility] [address] [address] [address] Rivas ZhaoTriglyceride [Mass/Vol]75 mg/dLNormal<=150The [facility] Comment on above:Performed By: #### LIPID, CMP #### [facility] [address] [place] [address] Dr. Rivas ChampionLDL CALC15.0 mg/dLNoSamaritan HospitalComment on above: Performed By: #### LIPID, CMP #### [facility] [address] [place] [address] Dr. Rivas ZhaoPROF 14(COMP METB)on 97-72-5935Nfryfld [Mass/Vol]3.0 g/dL Critically low3.4-5.0The [facility] CenterComselect specialty hospital-[facility] on above:Performed By: #### LIPID, CMP #### [facility] [address] [place] [address] Dr. Rivas ZhaoAlbumin/Globulin [Mass ratio]0.6 {ratio}NormalThe [facility] County Health CenterComment on above:Performed By: #### LIPID, CMP #### [facility] [address] [place] [address] Dr. Rivas Mercado [Catalytic activity/Vol]74 U/ZXfvhch30-790Qwl [facility] on above:Performed By: #### LIPID, CMP #### [facility] [address] [place] [address] Dr. Rivas Lieberman [Catalytic activity/Vol]59 U/FFlmrug08-82Ijj [facility] on above:Performed By: #### LIPID, CMP #### [facility] [address] [address] [address] Rivas Tuckeron gap [Moles/Vol]9.2 mmol/LNormalThe [facility] Health CenterComment on above:Performed By: #### LIPID, CMP #### [facility] [address] [address] [address] Rivas ZhaoAST [Catalytic activity/Vol]65 U/LCritically ynqu63-09Wxq [facility] CenterComment on above:Performed By: #### LIPID, CMP #### [facility] [address] [address] [address] Rivas ZhaoBilirubin [Mass/Vol]1.1 mg/dLCritically high0.2-1.0The [facility] CenterComment on above:Performed By: #### LIPID, CMP #### [facility] [address] [address] [address] Rivas ZhaoCalcium [Mass/Vol]8.8 mg/dLNormal8.5-10.1The [facility] Comment on above:Performed By: #### LIPID, CMP #### [facility] [address] [address] [address] Rivas ZhaoChloride [Moles/Vol]102 mmol/XQqmkhn08-176Zno [facility] Comment on above:Performed By: #### LIPID, CMP #### [facility] [address] [address] [address] Rivas ZhaoCO2 [Moles/Vol]32.5 mmol/LCritically high21.0-32.0The [facility] CenterComment on above:Performed By: #### LIPID, CMP #### [facility] [address] [address] [address] Rivas ZhaoCreatinine [Mass/Vol]0.76 mg/dLNormal0.55-1.02The [facility] CenterComment on above:Performed By: #### LIPID, CMP #### [facility] [address] [address] [address] Rivas DcGFR-AF IVORIAN>60Normal>=60The Dariela HospitalComment on above:Performed By: #### LIPID, CMP #### [facility] [address] [address] [address] Rivas Bee-NON AF IVORIAN>60Normal>=60The [facility] CenterComment on above:Performed By: #### LIPID, CMP #### [facility] [address] [address] [address] Rivas ZhaoGlobulin (S) [Mass/Vol]4.7 g/dLNormalThe [facility] Health CenterComment on above:Performed By: #### LIPID, CMP #### [facility] [address] [address] [address] Rivas ZhaoGlucose [Mass/Vol]109 mg/dLCritically qcvf44-862Tmi [facility] CenterComment on above:Performed By: #### LIPID, CMP #### [facility] [address] [address] [address] Rivas ZhaoPotassium [Moles/Vol]3.7 mmol/LNormal3.5-5.1[facility] Comment on above:Performed By: #### LIPID, CMP #### [facility] [address] [address] [address] Rivas ZhaoProtein [Mass/Vol]7.7 g/dLNormal6.4-8.2The [facility] Comment on above:Performed By: #### LIPID, CMP #### [facility] [address] [address] [address] Rivas ZhaoSodium [Moles/Vol]140 mmol/ETmsgza649-222CcjMercy Health Urbana Hospital Comment on above:Performed By: #### LIPID, CMP #### [facility] [address] [address] [address] Rivas ZhaoUrea nitrogen [Mass/Vol]12.0 mg/dLNormal7.0-18.0The [facility] CenterComment on above:Performed By: #### LIPID, CMP #### [facility] [address] [address] [address] Rivas ZhaoUrea nitrogen/Creatinine [Mass ratio]15.8 mg/mgNormalThe Ong HospitalComment on above:Performed By: #### LIPID, CMP #### [facility] [address] [address] [address] Rivas ZhaoPatient Correspondenceon 34-02-2675[place] Correspondence [id number]#1.00CD:127[facility] HospitalPhysician [id number]#1.00CD:127NormSheltering Arms HospitalPatient Correspondence [id number]#1.00CD:[address] [place], [place] [address]Physician Referralon 33-18-0860Smlmylbxw Referral [id number]#1.00CD:[address] [place], [place] [address]MG MAMM DIAGNOSTIC 3D GREG CADon 61-19-8171RS MAMM DIAGNOSTIC 3D GREG CAD Patient: FERN CARDOSO Exam Date: 05/16/2021 : 1960 Gender:F Ordering : DR SINDI BENJAMIN M.D. Admission #: [id number] Family : Order #: [id number] CLICK HERE TO VIEW EXAM RADIOLOGY REPORT [...] breast cancer at age 59. LOCATION: [facility] BREAST COMPOSITION: Scattered areas fibroglandular density. [...] by: Calin Contreras M.D. on 05/16/2021 at 15:27Del[facility] County HospitalUS BREAST GREG LIMITEDon 68-07-3722IK BREAST GREG LIMITEDPatient: FERN CARDOSO Exam Date: 05/16/2021 : 1960 Gender:F Ordering : DR SINDI BENJAMIN M.D. Admission #: [id number] Family : Order #: [id number] CLICK HERE TO VIEW EXAM RADIOLOGY REPORT [...] breast cancer at age 59. LOCATION: [facility] BREAST COMPOSITION: Scattered areas fibroglandular density. [...] by: Calin Contreras M.D. on 05/16/2021 at 15:27[facility] County HospitalTRANSGLUTAMINASE IGAon 06-72-2751d-Transglutaminase (tTG) IgA<2Avivtd0-9 The [facility] CenterComment on above:Result Comment: Negative 0 - 3 Weak Positive 4 - 10 Positive >10 . Tissue Transglutaminase (tTG) has been identified as the endomysial antigen. Studies have demonstr- ated that endomysial IgA antibodies have over 99% specificity for gluten sensitive enteropathy.Performed By: #### TRANIGA #### [facility] [address] [place] [address] Dr. Rivas Garza AUTO DIFFon 45-01-8922BJMF #0.1 103/ulNormal0.0-0.1[facility] HospitalComment on above:Performed By: #### CBC #### [facility] [address] [place] [address] Dr. Rivas ZhaoBasophils/100 WBC (Bld)0.9 %Normal0.2-2.0[facility] Comment on above:Performed By: #### CBC #### [facility] [address] [place] [address] Dr. Rivas Peter #0.2 103/ulNormal0.0-0.7The [facility] CenterComment on above: Performed By: #### CBC #### [facility] [address] [place] [address] Dr. Rivas Dcosinophils/100 WBC (Bld)2.3 %Normal0.9-7.0The [facility] Comment on above:Performed By: #### CBC #### [facility] [address] [place] [address] Dr. Rivas Dcrythrocyte distribution width (RBC) [Ratio]14.5 %Rdexzz32.0-15.0 [facility]rb[facility] HospitalComment on above:Performed By: #### CBC #### [facility] [address] [place] [address] Dr. Rivas ZhaoHematocrit (Bld) [Volume fraction]39.9 %Kdmwcq88.0-48.0The [facility] CenterComment on above:Performed By: #### CBC #### [facility] [address] [place] [address] Dr. Rivas ZhaoHemoglobin (Bld) [Mass/Vol]13.1 g/mCQhtluy88.0-16.0The [facility] CenterComment on above:Performed By: #### CBC #### [facility] [address] [place] [address] Dr. Rivas Berry #0.02 10e3/ulNormal0.00-0.03The [facility] CenterComment on above:Performed By: #### CBC #### [facility] [address] [place] [address] Dr. Rivas Berry %0.3 %Normal0.0-0.5The [facility] Health CenterComment on above: Performed By: #### CBC #### [facility] [address] [place] [address] Dr. Rivas Corley #2.2 103/ulNormal1.2-3.8The [facility] Health CenterComment on above:Performed By: #### CBC #### [facility] [address] [place] [address] Dr. Rivas Riverohocytes/100 WBC (Bld)31.8 %Dtwhqn83.5-60.0[facility] HospitalComment on above:Performed By: #### CBC #### [facility] [address] [place] [address] Dr. Yilan ChangMANUAL DIFF REQNONormalThe [facility] Health CenterComment on above: Performed By: #### CBC #### [facility] [address] [place] [address] Dr. Rivas Cristina (RBC) [Entitic mass]30.2 guFfehhj99.7-34.0The [facility] CenterComment on above:Performed By: #### CBC #### [facility] [address] [place] [address] Dr. Rivas Cristina (RBC) [Mass/Vol]32.8 g/eHLdqkeo89.9-35.2The Ong HospitalComment on above:Performed By: #### CBC #### [facility] [address] [place] [address] Dr. Rivas Cristina (RBC) [Entitic vol]91.9 kNDwhdde23.0-99.0The [facility] CenterComment on above:Performed By: #### CBC #### [facility] [address] [place] [address] Dr. Rivas Carlisle #0.5 103/ulNormal0.3-0.8The [facility] CenterComment on above:Performed By: #### CBC #### [facility] [address] [place] [address] Dr. Rivas Martinesocytes/100 WBC (Bld)7.2 %Normal1.7-12.0The [facility] Comment on above:Performed By: #### CBC #### [facility] [address] [place] [address] Dr. Rivas Rivera #4.0 103/ulNormal1.4-6.5The [facility] CenterComment on above:Performed By: #### CBC #### [facility] [address] [place] [address] Dr. Rivas Rasheedutrophils/100 WBC (Bld)57.5 %Auqcjt23.0-75.0The [facility] Health CenterComment on above:Performed By: #### CBC #### [facility] [address] [place] [address] Dr. Yilan ChangPlatelet mean volume (Bld) [Entitic vol]11.8 fLNormal9.5-13.5The [facility] CenterComment on above:Performed By: #### CBC #### [facility] [address] [place] [address] Dr. Rivas ZhaoPLT139 103/ulCritically dee942-282Gcg [facility] CenterComment on above:Performed By: #### CBC #### [facility] [address] [place] [address] Dr. Rivas ZhaoRBC4.34 106/ulNormal4.20-5.40The [facility] CenterComment on above:Performed By: #### CBC #### [facility] [address] [place] [address] Dr. Rivas ZhaoWBC7.0 103/ulNormal4.0-11.0The [facility] CenterComment on above: Performed By: #### CBC #### [facility] [address] [place] [address] Dr. Rivas ZapienASEon 80-98-2386Agykfd [Catalytic activity/Vol]197.0 U/LNormal 23.0-300.0The [facility] CenterComment on above:Performed By: #### CMP, LIPA #### [facility] [address] [place] [address] Dr. Rivas ZhaoPROF 14(COMP METB)on 47-72-2798Xkxeeon [Mass/Vol]3.6 g/dLNormal 3.5-5.0The [facility] CenterComment on above:Performed By: #### CMP, LIPA #### [facility] [address] [place] [address] Dr. Rivas ZhaoAlbumin/Globulin [Mass ratio]0.9 {ratio}NormalThe [facility] Health CenterComment on above:Performed By: #### CMP, LIPA #### [facility] [address] [place] [address] Dr. Rivas ZhaoALP [Catalytic activity/Vol]46 U/ZOifxtw49-929Rai [facility] CenterComment on above:Performed By: #### CMP, LIPA #### [facility] [address] [address] [address] Rivas HarleyT [Catalytic activity/Vol]77 U/LCritically high9-52The [facility] CenterComment on above:Performed By: #### CMP, LIPA #### [facility] [address] [address] [address] Rivas ZhaoAnion gap [Moles/Vol]13.9 mmol/LNormalThe [facility] Comment on above:Performed By: #### CMP, LIPA #### [facility] [address] [address] [address] Rivas ZhaoAST [Catalytic activity/Vol]67 U/LCritically nott01-69Cej [facility] CenterComment on above:Performed By: #### CMP, LIPA #### [facility] [address] [place] [address] Dr. Rivas ZhaoBilirubin [Mass/Vol]0.7 mg/dLNormal0.2-1.3TKettering Health Main Campus Comment on above:Performed By: #### CMP, LIPA #### [facility] [address] [address] [address] Rivas ZhaoCalcium [Mass/Vol]9.8 mg/dLNormal8.4-10.2[facility] Comment on above:Performed By: #### CMP, LIPA #### [facility] [address] [address] [address] Rivas ZhaoChloride [Moles/Vol]103 mmol/MWfvqyl39-616Nwk [facility] Comment on above:Performed By: #### CMP, LIPA #### [facility] [address] [address] [address] Rivas ZhaoCO2 [Moles/Vol]31.0 mmol/LCritically high22.0-30.0The [facility] CenterComment on above:Performed By: #### CMP, LIPA #### [facility] [address] [address] [address] Rivas ZhaoCreatinine [Mass/Vol]0.95 mg/dLNormal0.52-1.04[facility] HospitalComment on above:Performed By: #### CMP, LIPA #### [facility] [address] [place] [address] Dr. Rivas DcGFR-AF SSQJSGVU55 mL/min/1.32r0Qnlimb>=60[facility] Comment on above:Performed By: #### CMP, LIPA #### [facility] [address] [place] [address] Dr. Rivas DcGFR-NON AF IVORIAN=60Normal>=60[facility] HospitalComment on above:Performed By: #### CMP, LIPA #### [facility] [address] [place] [address] Dr. Rivas ZhaoGlobulin (S) [Mass/Vol]4.2 g/dLNormalThMarietta Osteopathic ClinicComment on above:Performed By: #### CMP, LIPA #### [facility] [address] [place] [address] Dr. Rivas ZhaoGlucose [Mass/Vol]95 mg/dOFvkgue91-917IuoMercy Health Urbana Hospital Comment on above:Performed By: #### CMP, LIPA #### [facility] [address] [place] [address] Dr. Rivas ZhaoPotassium [Moles/Vol]3.9 mmol/LNormal3.4-5.0[facility] Comment on above:Performed By: #### CMP, LIPA #### [facility] [address] [place] [address] Dr. Rivas ZhaoProtein [Mass/Vol]7.8 g/dLNormal6.1-8.2[facility] Comment on above:Performed By: #### CMP, LIPA #### [facility] [address] [place] [address] Dr. Rivas ZhaoSodium [Moles/Vol]144 mmol/HTirgau775-751BalMercy Health U[facility] Hospital Comment on above:Performed By: #### CMP, LIPA #### [facility] [address] [place] [address] Dr. Rivas ZhaoUrea nitrogen [Mass/Vol]20.0 mg/dLCritically high7.0-17.0[facility] HospitalComment on above:Performed By: #### CMP, LIPA #### [facility] [address] [place], [place] [address] Dr. Rivas Hicks nitrogen/Creatinine [Mass ratio]21.1 mg/mgNormalThe [facility] CenterComment on above:Performed By: #### CMP, LIPA #### [facility] [address] [place], [place] [address] Dr. Rivas ZhaoXR ribs RT min 3V w CXR1V*on 63-62-9506AN ribs RT min 3V w CXR1V* [facility] [place] [address] [place] [address] XRay Report Signed Patient: Fern Cardoso MR#: [id number] : 1960 Acct:[id number] Age/Sex: 59 / F ADM Date: 06/09/20 Loc: XDUCLY Room: Type: [facility] Attending Dr: Janene Munguia APRN, [employer] Ordering Provider: Janene Munguia APRN Date of [...] Garcia Jr., M.D.06/09/2020 11:19 AM Dictation Location: [address] By: JOSÉ LUIS 06/09/20 1119 Dictated By: Que Garcia Jr, MD 06/09/20 1112 Signed By: 06/09/[address] [facility] Vital Signs Date TimeVital SignValuePerforming KjioerlriZewirorz99-90-3546 10:49-0400Body .1 cmNicholas Brown DPM Work Phone: [phone] [place], [place] [address]Chxhfpxnsm20-86-0751 10:49-0400Body mass index (BMI) [Ratio]57.91 kg/e2Vttlpmje Brown DPM Work Phone: [phone] [place], [place] [address]Lusltotgjs67-62-8988 10:49-0400Body zugvsn396.85 kgNicholas Brown DPM Work Phone: [facility] CenterXybahlfnpl13-01-4173 10:49-0400Respiratory rate18 /minNicholas Brown DPM Work Phone: [phone] [place], [place] [address]Hjzpnuuwok54-50-6044 10:37-0400Body qcessz691.1 cmNicholas Brown DPM Work Phone: [facility] CenterKpghekhylm80-44-8502 10:37-0400Body mass index (BMI) [Ratio]57.91 kg/n4Ncfuzxxv Brown DPM Work Phone: [facility] CenterMiazfkaehx07-74-6019 10:37-0400Body xemdbe902.85 kgNicholas Brown DPM Work Phone: [phone] [place], [place] [address]Gebzgjquyb23-18-1912 10:37-0400Respiratory rate18 /minNicholas Brown DPM Work Phone: [facility] CenterYliiibllhq65-34-8237 10:00-0400Body vglygn283.1 cmMart[facility]erry [facility]10-28-2024 10:00-0400Body mass index (BMI) [Ratio]57 kg/q8IfvqirygxMartins Ferry Hospital10-28-2024 10:00-0400Body weight 155.58 kgMartins Ferry Hospital10-28-2024 10:00-0400Diastolic blood dpvatplx59 mm[Hg][facility]10-28-2024 10:00-0400Heart rate74 /[facility]10-28-2024 10:00-0400Systolic blood hunvdjml631 mm[Hg][facility]10-07-2024 10:10-0400Body .1 cmMartins Ferry Hospital10-07-2024 10:10-0400Body mass index (BMI) [Ratio]56.3 kg/h9YucgyjbioMartins Ferry Hospital10-07-2024 10:10-0400Body nzninc116.54 kgMartins Ferry Hospital10-07-2024 10:10-0400Diastolic blood vvjwizwf30 mm[Hg][facility] 01-24-2024 10:10-0400Heart rate71 /[facility] 01-24-2024 10:10-0400Respiratory rate18 /[facility] 01-24-2024 10:10-0634IlB7% (BldA) [Mass fraction]98 %[facility]10-07-2024 10:10-0400Systolic blood yjoscadh836 mm[Hg][facility]08-29-2024 11:29-0400Body yfbvzq157.1 cmMartins Ferry Hospital08-29-2024 11:29-0400Body mass index (BMI) [Ratio]55 kg/w4SsqyvgfwyMartins Ferry Hospital08-29-2024 11:29-0400Body fczrum182.13 kgMartins Ferry Hospital08-29-2024 11:29-0400Diastolic blood dvnefplx04 mm[Hg] [facility]08-29-2024 11:29-0400Heart rate69 /[facility]08-29-2024 11:29-0400Systolic blood duqekmki66 mm[Hg] [facility]06-27-2024 09:39-0400Body xroffo752.1 cm [facility]06-27-2024 09:39-0400Body mass index (BMI) [Ratio]54.6 kg/g2YazhljrviMartins Ferry Hospital06-27-2024 09:39-0400Body jxgqjexddfd97.4 [degF][facility]06-27-2024 09:39-0400Body .89 kgMartins Ferry Hospital06-27-2024 09:39-0400Diastolic blood pkvgncew73 mm[Hg][facility]06-27-2024 09:39-0400 Heart rate71 /[facility]06-27-2024 09:39-0400 Respiratory rate18 /[facility]06-27-2024 09:39-0400 SaO2% (BldA) [Mass fraction]97 %[facility]06-27-2024 09:39-0400Systolic blood amxoicrr079 mm[Hg][facility] 08-12-2023 11:04-0400Body tatosj613.1 cmMartins Ferry Hospital 08-12-2023 11:04-0400Body mass index (BMI) [Ratio]55.2 kg/i8JssinhdszMartins Ferry Hospital04-25-2024 11:04-0400Body lzvoeq196.59 kgMartins Ferry Hospital04-25-2024 11:04-0400Diastolic blood mdsbykne58 mm[Hg][facility]04-25-2024 11:04-0400Heart rate67 /[facility]04-25-2024 11:04-0400Systolic blood mqczqxbi137 mm[Hg][facility]03-04-2024 15:41-0500Body .1 cmMartins Ferry Hospital03-04-2024 15:41-0500Body mass index (BMI) [Ratio]54.1 kg/g7AgkbcuizeMartins Ferry Hospital03-04-2024 15:41-0500Body flekoc811.64 kg [facility]03-04-2024 15:41-0500Diastolic blood wqlpoxfr70 mm[Hg][facility]03-04-2024 15:41-0500Heart rate67 /min [facility]03-04-2024 15:41-1947JyG5% (BldA) [Mass fraction]97 %[facility]03-04-2024 15:41-0500Systolic blood anxegohy352 mm[Hg][facility]01-26-2024 09:30-0500 Body broxyh392.1 cmIsalei Sourav Other [employer] Other 01-26-2024 09:30-0500Body mass index (BMI) [Ratio] 57.24 kg/q4Hrfyvw Sourav Other [employer] Other 01-26-2024 09:30-0500Body qgseij798.04 kgSindi Sourav Other [employer] Other 01-26-2024 09:30-0500Diastolic blood ikwfprwh59 mm[Hg] Sindi Benjamin Other [employer] Other 01-26-2024 09:30-7032JjD9% (BldA) [Mass fraction]97 % Sindi Benjamin Other [employer] [employer] Other 01-26-2024 09:30-0500Systolic blood pewrnvvm591 mm[Hg] Sindi Benjamin Other [employer] Other 11-17-2023 16:00-0500Body ijeiun333.1 cmAaleshia Gordon Other [employer] Other 11-17-2023 16:00-0500Body mass index (BMI) [Ratio] 60.27 kg/h4MypyxEtta Gordon Other [employer] Other 11-17-2023 16:00-0500Body kfpfcieytyd26.9 [degF]Etta Gordon Other [employer] Other 11-17-2023 16:00-0500Body gxxygs960.29 kgEtta Gordon Other nort [employer] Other 11-17-2023 16:00-0500Diastolic blood mm[Hg] Etta Gordon Other [employer] Other 11-17-2023 16:00-0500Respiratory rate18 /minEtta Gordon Other [employer] Other 11-17-2023 16:00-0608XbD1% (BldA) [Mass fraction]95 % Etta Gordon Other [facility] [employer] Other 11-17-2023 16:00-0500Systolic blood abnnxotu210 mm[Hg] Etta Gordon Other [facility] [employer] Other Encounters Encounter DateEncounter TypeCare ProviderFacilityStart: 02-20-2025 End: 87-75-9513mvlqzthubpFMMYSheltering Arms Hospitaltart: 01-16-2025 End: 30-82-6743iibxamuikwSmyhsdBinh Pickard MDFacility:[facility] Start: 01-16-2025 End: 52-06-3984oggajxfahpLtiwzhBnih Pickard MDFacility:[facility] [place] OhioStart: 54-62-9241vruqcjzofzBFSZUniversity Hospitals Health Systemtart: 12-14-2024 End: 15-08-2502Glitoo flowsUnique Reno DPM Work Phone: noMS CI PODIATRYStart: 12-14-2024 End: 38-28-0547Xmhlxs flowsUnique Reno DPM Work Phone: noms CI PODIATRYStart: 12-14-2024 End: 08-40-2321Ocolbsx encounter procedureEsequiel Reno DPM Work Phone: noms CI PODIATRYComment on above:Hallux rigidus of left foot (Primary Dx); Hallux rigidus of right foot; Diabetes mellitus due to underlying condition with diabetic polyneuropathy, unspecified whether mcfp insulin use (HCC); Pain due to onychomycosis of toenails of both feet; Venous insufficiencyStart: 12-14-2024 End: 47-67-9219rcejxpgxzpQBYGIHDH A BROWNNot AvailableStart: 12-06-2024 ambulatoryUniversity Hospitals Health Systemtart: 12-05-2024 End: 85-60-2228Xxznnq flowsheetSammantha Aaron PTNOMS [facility] Start: 12-05-2024 End: 10-75-9257Ynmzdv flowsheetSammantha Aaron PTNOMS [facility] Start: 12-05-2024 End: 54-25-7343uwvxtgzubqCdcisiesz Aaron PTMS [facility] Comment on above:Cervicalgia (Primary Dx)Start: 11-29-2024 End: 84-45-6580ygucczormmBNKNEWV [facility] Dublintart: 19-19-8582dhklyjaskcOIAWSheltering Arms Hospitaltart: 18-16-4644udvazygnhoALMOSheltering Arms Hospitaltart: 10-05-2024 End: 79-80-2161Kqvafe Niki Reno DPM Work Phone: noMS CI PODIATRYStart: 10-05-2024 End: 55-68-0269Lmpgfuambrocio Reno DPM Work Phone: noMS CI PODIATRYStart: 10-05-2024 End: 70-43-8368Xsqcmh outpatient new 30 minutesEsequiel Reno DPM Work Phone: noms CI PODIATRYComment on above:Hallux rigidus of left foot (Primary Dx); Hallux rigidus of right foot; Diabetes mellitus due to underlying condition with diabetic polyneuropathy, unspecified whether 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); Pain due to onychomycosis of toenails of both feet; Venous insufficiencyStart: 10-05-2024 End: 76-84-5607mppbgbontrJWBQZMVJ A BROWNNot AvailableStart: 08-28-2024 ambulatoryUniversity Hospitals Health Systemtart: 07-07-2024 ambulatoryUniversity Hospitals Health Systemtart: 06-09-2024 End: 03-66-4116uebdownfsrJBIC SNIDERUnWadsworth-Rittman Hospitaltart: 08-56-8525mmxygtbchrGHLYOhioHealth Marion General Hospitaltart: 49-81-6200ejwuawjmahAOZRUniversity Hospitals Health Systemtart: 78-59-8317jautrrysntUSBLOhioHealth Marion General Hospitaltart: 39-42-1420wtgoehzkfcMSKKOhioHealth Marion General Hospitaltart: 07-02-0124frxvohmqrdDVOAOhioHealth Marion General Hospitaltart: 02-14-2024 End: 38-81-4346kzycyttqjvDnbgyyuziAdams County [facility] Center Work Phone: Start: 02-14-2024 End: 37-82-9127Wwkaeqd encounter procedureAdia Physician [facility] Work Phone: Start: 01-24-2024 End: 28-12-1488unjxtquiadScdwrrnfeAdams County Regional Medical Center Work Phone: Start: 01-24-2024 End: 02-25-4907Sgrwnjx encounter procedureFirelands Physician Group-[facility] Work Phone: Start: 98-05-1230Lht-patient / Non-visitFirmilledgevilles Physician Group-[facility] [place] Work Phone: Start: 12-16-2023 End: 11-90-3130leluihpwmcAmkviotyeAdams County Regional Medical Center Work Phone: Start: 12-16-2023 End: 69-28-1290Jfwzdke encounter procedureMerrymilledgevilles Physician Group-[facility] Work Phone: Start: 20-20-1492Cvi-patient / Non-visitFirmilledgevilles Physician Group-[facility] Work Phone: Start: 10-14-2023 End: 76-72-3090jbavyvbcvuRjljccympC[facility] Clinic [facility] Work Phone: Start: 10-14-2023 End: 82-17-3140Nphycmf encounter procedureFormerly [facility] [place] Work Phone: Start: 95-23-7208Wzx-patient / Non-visitFirmilledgevilles Physician Group-[facility] Work Phone: Start: 26-95-2351Dkwpenq encounter statusCleveland Clinic Marymount Hospitaltart: 08-12-2023 End: 27-58-6815yijwgmfgrqItscsjxdqC[facility] Clinic [facility] Work Phone: Start: 08-12-2023 End: 96-61-9537Gcrijmago for general adult medical examination without abnormal findingsCleveland Clinic Marymount Hospitaltart: 08-12-2023 End: 05-38-7587Ojxgfrr encounter procedureFormerly [facility] Work Phone: Start: 57-86-0613Uky-patient / Non-visitFormerly [facility] Work Phone: Start: 06-21-2023 End: 47-64-4038Jrhpjhb encounter procedureFormerly [facility] Work Phone: Start: 05-31-2023 End: 76-43-8079rnlofqveybMplmt Evan Other [facility] [employer] Other Start: 35-50-8626Peypwrter encounterAmber YulianaG [facility]tart: 05-21-2023 End: 27-80-6124zpfscumundImgbld Braun Other [facility] [employer] Other Start: 57-99-4229Ymprhfstq encounterMarlei [facility] ClinicStart: 28-42-0453Fgjtxtu encounter procedureFirkobe Physician Group-Start: 05-14-2023 End: 27-22-6464nzsmlsjielYxxmdu Benjamin Other [employer] Other Start: 41-98-0458Ntofyz outpatient visit 25 minutes Sindi [facility] ClinicStart: 04-30-2023 End: 09-64-3572msplpmprzeGiiwsb Benjamin Other [employer] Other Start: 21-64-2232Pduwixonh encounterMarlei Pride [facility] ClinicStart: 04-01-2023 End: 76-87-1412ffhcrviljnVyjqyw Braun Other [employer] Other Start: 58-96-5834Ypiakcwxk encounterMarlei Pride [facility] ClinicStart: 03-05-2023 End: 52-96-8891xccnojcpcnNmkwc Keller Other [employer] Other Start: 01-70-6623Egjrdf outpatient visit 25 minutes Etta GordonDIGNITY [facility]ALTH [facility] Ur[facility] Care ClydeStart: 66-93-4902Csinuhpvb for general adult medical examination without abnormal findingsDR SINDI [facility] Healthtart: 02-21-2022 End: 20-19-0707xnrxvrmodvXD MARCIA E BRAUNFacility:O4Jfqdb: 02-21-2022 End: 11-07-5760Rykghkshj for general adult medical examination without abnormal findingsDR SINDI BENJAMINFacility:Q9Bfren: 89-06-9146Edvfh health examination Etta Gordon Other [employer] Other Start: 05-16-2021 End: 75-50-9711zqavdzovzdRJ MARCIA E BRAUNFacility:U2Dedeq: 03-31-2021 End: 87-56-4169aipgbanablKN SINDI Torres SOURAVFacility:V9Wmmoc: 01-77-7385Bxqldcq encounter procedureMicvalentina WhitesideFacility:9844 Procedures DateProcedureProcedure DetailPerforming ClinicianStart: 76-32-7092Ejrycf-up visitFollow-upPAUL CHACKOStart: 93-43-9116RqaeubwqweaayaotQjrfkqa LysterStart: 85-56-6948Tpg-surgery evaluationEtta Gordon Other Start: 65-13-5569Zbamttl examination of patientEtta Gordon Other Start: 52-67-9583Qfqzjsxj mellitus screeningEtta Gordon Other Start: 26-92-4678Iuxeuebgr mammographyEtta Gordon Other Start: 29-00-7933Njnjlnc and physical examination, administrativeEtta Gordon Other Start: 01-97-8486Irvlxiewmixi cardiovascular examinationEtta Gordon Other Laboratory test result abnormalEtta Gordon Other Screening for malignant neoplasm of breastEtta Gordon Other Plan of Treatment DateCare ActivityDetailAuthorStart: 12-21-2024 End: 52-86-5626dupcpaxqhy13/04/2025 12:30 PM EDT Treatment [facility] [address] [facility] [address] [place] [address] Aric Aaron PTNOMS [facility] Physical TherapyStart: 12-19-2024 End: 14-24-7977vukltquuxy72/02/2025 12:00 PM EDT Treatment [facility] [address] [facility] [address] [place] [address] Brian Hill PTANOMS Vas[place] Physical TherapyStart: 23-19-3129Zxajvrqju vaccination Influenza Vaccine (#1)NOMS HealthcareStart: 12-14-2024 End: 39-27-5497mrmaahzcfa58/28/2025 11:30 AM EDT Treatment [facility] [address] [facility] [address] [place] [address] Anabell Montague PTANOMS [place] Physical TherapyStart: 12-14-2024 End: 60-18-0594Planfva encounter procedureNOMS CI PODIATRYComment on above: Hallux rigidus of left foot (Primary Dx); Hallux rigidus of right foot; Diabetes mellitus due to underlying condition with diabetic polyneuropathy, unspecified whether mcfp insulin use (HCC); Pain due to onychomycosis of toenails of both feet; Venous insufficiencyStart: 12-11-2024 End: 31-98-7749wsidkvzbpd78/25/2025 2:30 PM EDT Treatment [facility] [address] [facility] [address] [place], [id number] Brian Hill PTANOMS [place] Physical TherapyStart: 12-07-2024 End: 04-85-1173ksawtecnsp77/21/2025 12:00 PM EDT Treatment [facility] [address] [facility] [address] [place] [address] Brian Hill PTANOMS [place] Physical TherapyStart: 12-05-2024 End: 60-36-1593cneaapebus83/19/2025 12:30 PM EDT Evaluation [facility] [address] [facility] [address] [place] [address] Aric Aaron, HOLLIE Cervicalgia (Primary Dx)[facility] Comment on above:Cervicalgia (Primary Dx)Start: 10-05-2024 End: 56-47-2105Crvumlt encounter mueabjaur09/19/2025 10:20 AM EDT Office Visit [facility] [address] [facility] [address] [place] [address] Esequiel Reno DPM [address] [address] ArrivedNOMS CI PODIATRYComment on above:ArrivedStart: 76-37-2944Kbdmkipfe for malignant neoplasm of breastMammogramNOMS Healthcare Start: 06-35-7947Bfpxijoad for malignant neoplasm of cervixNOMS HealthcareStart: 88-71-0143Cuoeqavns for malignant neoplasm of cervixPap SmearNOMS Healthcare Start: 30-08-8275Dekjkwrls for malignant neoplasm of colonNOMS HealthcareMG Breast - bilateral ScreeningMartins Ferry HospitalUS Lower extremity vein - rightMartins Ferry HospitalXR Lumbar spine 2 or 3 Views [facility] Immunizations Immunization DateImmunizationNotesCare MszelxjxXjzequke43-78-6746tlyxpudud virus vaccine, unspecified formulationSammantha Aaron PTNOKS Healthcare Payers DatePayer CategoryPayerPolicy [id number] Health InsuranceMOLINA MARKETPLACE Member Subscriber Plan / Payer (Effective 2024-Present) Name: Fern Cardoso Relation to Subscriber: Self Name: Fern Cardoso Payer ID: [id number] (NAIC) Group ID: Not on file Type: Not on file Address: [address] [id number] [id number] 2.1.386665.3.579.2.1068 [id number] ..1.112552.3.57[id number] 2..1.150220.3.57[id number] 2..1.276368.3.57[id number] 2.16.840.1.076920.3.57[id number] 2.16.840.1.371383.3.57[id number] 2.16.840.1.678854.3.57[id number] 2.16.840.1.076967.3.57[id number] 2.16.840.1.187397.3.57[id number] 2.16.840.1.346047.3.57[id number]-dukWeoo Pay [id number] 2.840.1.269559.19 Social History DateTypeDetailFacilityUnknown if ever smokedHorseshoe Bend [employer] Other Start: 87-81-4155Ibv Assigned At [facility] [employer] Other Start: 07-07-2018 End: 62-55-2658Jnythzh smoking status NHISNever smoked tobacco (finding) [facility] Hospitaltart: 95-78-6937Xyo Assigned At [facility]ill[facility] smoking status NHISTobacco smoking consumption unknownNOMS HealthcareStart: 14-74-4194Kwkseb identityIdentifies as female gender (finding)NOMS HealthcareStart: 36-72-4626Ldstwy orientation Heterosexual (finding)NOMS HealthcareStart: 00-41-8826Vtzuxfx use and exposure Smokeless tobacco non-userNOMS HealthcareStart: 10-05-2024 End: 77-64-6742Lkisxdffx beverage intakeLifetime non-drinker (finding)[facility] HealthcareStart: 41-65-6233Qnecfdx of Social [facility] Medical Equipment Procedure CodeEquipment CodeEquipment Original TextEquipment IdentifierDates Arthroplasty, knee, total, minimally invasiveART SURF RT 14MM 6-9 C-D VEFDA Start: 82-65-8338Zjpnuyoxfsnz, knee, total, minimally invasiveCEMENT BONE 1X40 RADIOPAQUEFDAStart: 71-59-9257Ovpqvsjhtpdb, knee, total, minimally invasive CEMENT BONE 1X40 RADIOPAQUEFDAStart: 63-80-6371Vbzbnyspvmnz, knee, total, minimally invasiveEXTENSION STEM 14 X 30MMFDAStart: 09-25-4648Oymcgspeeozc, knee, total, minimally invasiveFEMUR PERSONA RIGHT SIZE 7FDAStart: 07-04-2018 Arthroplasty, knee, total, minimally invasivePATELLA PERSONA 32MM VIVACIT-EFDA Start: 96-38-7018Rnjislyqscee, knee, total, minimally invasiveTIBIA PERSONA RIGHT SIZE DFDAStart: 82-46-5606Qibjxzfnnopf, knee, total, minimally invasiveART SURF RT 14MM 6-9 C-D VEFDAStart: 71-71-3021Kgmzjukskxgd, knee, total, minimally invasiveCEMENT BONE 1X40 RADIOPAQUEFDAStart: 63-23-3386Vphqngftqszn, knee, total, minimally invasiveCEMENT BONE 1X40 RADIOPAQUEFDAStart: 07-04-2018 Arthroplasty, knee, total, minimally invasiveEXTENSION STEM 14 X 30MMFDAStart: 59-70-1623Ubefjezcncgz, knee, total, minimally invasiveFEMUR PERSONA RIGHT SIZE 7FDAStart: 61-14-4875Sqxxqvdwfput, knee, total, minimally invasivePATELLA PERSONA 32MM VIVACIT-EFDAStart: 76-73-5382Csojdalroclq, knee, total, minimally invasiveTIBIA PERSONA RIGHT SIZE DFDAStart: 08-90-0555Gcwjdfnmwefs, knee, total, minimally invasiveART SURF RT 14MM 6-9 C-D VEFDAStart: 56-25-0699Dpmxsopopftf, knee, total, minimally invasiveCEMENT BONE 1X40 RADIOPAQUEFDAStart: 07-04-2018 Arthroplasty, knee, total, minimally invasiveCEMENT BONE 1X40 RADIOPAQUEFDA Start: 91-43-9650Qbngjheygndw, knee, total, minimally invasiveEXTENSION STEM 14 X 30MMFDAStart: 90-02-0545Cympiywhygla, knee, total, minimally invasiveFEMUR PERSONA RIGHT SIZE 7FDAStart: 96-38-7608Kjkoxkenpsaa, knee, total, minimally invasivePATELLA PERSONA 32MM VIVACIT-EFDAStart: 58-33-3867Osknjttrnlmv, knee, total, minimally invasiveTIBIA PERSONA RIGHT SIZE DFDAStart: 07-04-2018 Arthroplasty, knee, total, minimally invasiveART SURF RT 14MM 6-9 C-D VEFDA Start: 80-19-5953Ufxvljmnwckn, knee, total, minimally invasiveCEMENT BONE 1X40 RADIOPAQUEFDAStart: 97-64-1045Wrbotlzlufqk, knee, total, minimally invasive CEMENT BONE 1X40 RADIOPAQUEFDAStart: 78-40-1730Wxaxsquvpbps, knee, total, minimally invasiveEXTENSION STEM 14 X 30MMFDAStart: 56-43-4672Npgebvqijkjt, knee, total, minimally invasiveFEMUR PERSONA RIGHT SIZE 7FDAStart: 07-04-2018 Arthroplasty, knee, total, minimally invasivePATELLA PERSONA 32MM VIVACIT-EFDA Start: 05-82-0583Txgsajimnjhz, knee, total, minimally invasiveTIBIA PERSONA RIGHT SIZE DFDAStart: 19-78-4876Xrvwbepxblso, knee, total, minimally invasiveART SURF RT 14MM 6-9 C-D VEFDAStart: 83-44-8363Edqzqdjyzzkx, knee, total, minimally invasiveCEMENT BONE 1X40 RADIOPAQUEFDAStart: 19-65-9543Taywbaiqulno, knee, total, minimally invasiveCEMENT BONE 1X40 RADIOPAQUEFDAStart: 07-04-2018 Arthroplasty, knee, total, minimally invasiveEXTENSION STEM 14 X 30MMFDAStart: 71-01-9845Ziakkxqsjtwa, knee, total, minimally invasiveFEMUR PERSONA RIGHT SIZE 7FDAStart: 83-24-3440Fzuxtirwuoqh, knee, total, minimally invasivePATELLA PERSONA 32MM VIVACIT-EFDAStart: 79-20-7540Drdfcpxjviby, knee, total, minimally invasiveTIBIA PERSONA RIGHT SIZE DFDAStart: 07-04-2018 Clinical Notes 10-22-2020 to 02-20-2025 Note Date & ForwRvqwYonhuinb81-57-3553 NoteUT Electrophysiology Consult Note Reason for visit: Afib 02/20/2025 Patient underwent A-fib ablation on 10/28/2023 Loop data reveals no atrial fibrillation but there was evidence of sinus rhythm with PVCs. There were episodes of nonsustained VT as noted on February 09, 2025 as noted below . Echocardiogram done on 01/04/2025 revealed normal EF. Prior cath in 2023 showed some vasospasm Review of Systems Constitutional: Positive for malaise/fatigue. Musculoskeletal: Positive for back pain and neck pain. Neurological: Positive for dizziness and light-headedness. 10/05/23 patient underwent atrial flutter ablation and [...] possible 06/08/23 HPI: Fern Cardoso is a 64 y.o. year old with past medical history of hypertension diabetes obstructive sleep apnea was admitted to [facility] with shortness of breath and was [...] (postoperative nausea and vomiting) Sleep apnea Thrombocytopenia PSH: Past Surgical History: Procedure Laterality Date ABLATION OF DYSRHYTHMIC FOCUS CARDIAC CATHETERIZATION SECTION, CLASSIC OTHER SURGICAL HISTORY LOOP RECORDER INSERTION 3/25/24 REPLACEMENT TOTAL KNEE ONCOLOGIC SH: Social Drivers of Health Tobacco Use: Low Risk (02/20/2025) Patient History Smoking Tobacco Use: Never Smokeless [...] Intimate Partner Violence: Not At Risk (05/05/2023) [place] Safety & Environment Fear of Current or Ex-Partner: No Emotionally Abused: Not on file Physically Abused: Not on file Sexually Abused: Not on file Physically or Sexually Abused: Unrecognized value Depression: Not on file Housing Stability: Low Risk (05/05/2023) Housing Stability Vital Sign Unable to Pay for Housing in the Last Year: Not on file Number of Places Lived in the Last Year: Not on file Unstable Housing in the Last Year: No Utilities: Not At Risk (05/05/2023) [facility] Utilities Threatened with loss of utilities: No Health Literacy: Not on file Allergies: Allergies Allergen Reactions Ciprofloxacin Unknown Diphenhydramine Hallucinations Pt states she gets loopy Penicillins Hives Tramadol Hives Weight: 158kg Visit Vitals BP 111/78 (BP Location: Left arm, Patient Position: Sitting) Pulse 78 Ht 1.651 m (5' 5 ) Wt (!) 158 kg (349 lb) SpO2 96% BMI 58.08 kg/m??? OB Status Hysterectomy Smoking Status Never BSA 2.69 m??? Meds: Current Outpatient Medications on File Prior to Visit Medication Sig Dispense Refill apixaban (Eliquis) 5 mg tablet Take 1 tablet (5 mg) by mouth two times daily. 180 tablet 3 aspirin 81 mg EC tablet Take 81 mg by mouth in the morning. bumetanide (Bumex) 1 mg tablet Take 1 tablet (1 mg) by mouth in the morning. 90 tablet 3 carvedilol (Coreg) 3.125 mg tablet Take 1 tablet (3.125 mg) by mouth with breakfast and with evening meal. Take (1) 6.25mg tablet plus (1) 3.125mg table twice daily 60 tablet 11 carvedilol (Coreg) 6.25 mg tablet Take 1 tablet (6.25 mg) by mouth with breakfast and with evening meal. 180 tablet 3 (more content not included)...[facility]09-21-2025 Note Please let her know overall things look ok on her ECHO. Pumping function is low normal at 50-55%. No significant valve abnormalities. Continue current medictions and follow-up as scheduled with Dr. Cronin. Thanks![facility]08-28-2025 History of Present illness Narrative* Esequiel Reno, DPM - 12/14/2024 10:50 AM EDT Patient: Fern Acevedo Cardoso : 1960 PCP: No primary care [...] and 5 mg in the evening., Disp: ,Rfl: bumetanide (Bumex) 1 MG tablet, Take 1 [...] Strain: Low Risk (05/05/2023) Received from [facility] Overall Financial Resource Strain (CARDIA) Difficulty of Paying Living Expenses: Not hard at all Food Insecurity: No Food Insecurity (05/05/2023) Received from [facility] Hunger Vital Sign Within the past 12 months, you worried that your food would run out before you got the money to buymore.: Never true Ran Out of Food in the Last Year: Not on file Transportation Needs: No Transportation Needs (05/05/2023) Received from [facility] Transportation In the past 12 months, has lack of transportation kept you from medical appointments or from getting medications?: No Lack of Transportation (Non-Medical): Not on file Physical Activity: Not on file Stress: Not on file Social Connections: Not on file Intimate Partner Violence: Unknown (05/05/2023) Received from [facility] Humiliation, Afraid, Rape, and Kick questionnaire Fear of Current or Ex-Partner: No Emotionally Abused: Not on file Physically Abused: Not on file Sexually Abused: Not on file Housing Stability: Low Risk (05/05/2023) Received from [facility] Housing Stability Vital Sign Unable to Pay for Housing in the Last Year: Not on file Number of Places Lived in the Last Year: Not on file In the last 12 months, was there a time when you did not have a steady place to sleep or slept in ashelter (including now)?: No ROS: Gastrointestinal: denies abdominal [...] palpableDP and PT pedal pulses NEURO: 5.07 [place] Satish monofilament test intact to digits and [...] underlying condition with diabetic polyneuropathy, unspecified whether 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) 4. Pain due to [...] to both feet. Patient had a diabetic neurologicalexam today to both their feet and discussed proper shoe gear. Visit spent with patient education on condition and treatment of condition. Pt to continue with elevation of feet while resting or NWB. Patient to continue with oral anti - inflammatories as needed for pain and recommended OTC medications such as tylenol or Ibuprofen Esequiel Reno DPM documented in this encounterOzarks Medical [id number] History of Present illness Narrative* Aric Aaron, PT - 12/05/2024 12:30 PM EDT Physical Therapy Evaluation Visit Patient Name: Fern [...] she is not sure what exactly happened toher neck. 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 Precautions: bilateral TKA, universal Subjective: neck and upper back Pain: 2-01/26 Objective: PT Evaluation (12/05/2024) CERVICAL AROM: 33 [...] minutes) Strength, Endurance, Flexibility, ROM, HEP, Neural Mobilization,Power, and Core Stability as needed. Pt performed and instructed in home program this date; writteninstructions and pictures issued with good pt understanding. [...] PT. Outcome Measure: Neck Disability Index (NDI): 31/50 Rehab Diagnosis: neck pain, decrease ROM and mobility Short Term Goal: To be met in 2 weeks Goal 1: Pt to be instructed in home exercise program. Detention Goals: To be met in 10 weeks [...] Please sign below. Date: documented in this encounterOzarks Medical CenterMheahzkfgd03-31-0605 NoteCardiovascular Medicine Ong Clinic SUBJECTIVE Chief Complaint Patient presents with [...] diabetes obstructive sleep apnea was admitted to [facility] with shortness of breath and was [...] (BMI) of 50.0 to 59.9 in adult ([facility]) Postoperative pain Status post total right knee replacement Thrombocytopenia RAVI (obstructive sleep apnea) Overactive bladder Screening mammogram for breast cancer Type 2 diabetes mellitus with hyperglycemia ([facility]) PONV (postoperative nausea and vomiting) Lumbar back pain Right leg swelling Takes dietary supplements Type 2 diabetes mellitus, without long-term current use of insulin ([facility]) Past Medical History: Diagnosis Date Abnormal ECG Acute kidney injury Arrhythmia Atrial fibrillation ([facility]) [facility]rial fibrillation ([facility]) CHF (congestive heart failure) ([facility]) Diabetes mellitus ([facility]) DVT (deep venous thrombosis) ([facility]) Hypertension Obesity BMI 55/58 PONV (postoperative [...] (6.25 mg) by mouth (more content not included)...[facility]08-13-2025 Note Patient is here today for a 6 month follow up appointment. [...] for irregular heartbeat (occasional racing heart while sitting).[facility]06-19-2025 History of Present illness Narrative* Esequiel Reno, JUNIOR - 10/05/2024 10:20 AM EDT Patient: Fern Cardoso : 1960 PCP: No [...] have tried no treatments for the condition. Statesswelling worstens with prolonged standing activities. Patient also [...] and 5 mg in the evening., Disp: ,Rfl: dapagliflozin (Farxiga) 10 MG, Take 10 mg [...] Strain: Low Risk (05/05/2023) Received from [facility] Overall Financial Resource Strain (CARDIA) Difficulty of Paying Living Expenses: Not hard at all Food Insecurity: No Food Insecurity (05/05/2023) Received from [facility] Hunger Vital Sign Within the past 12 months, you worried that your food would run out before you got the money to buymore.: Never true Ran Out of Food in the Last Year: Not on file Transportation Needs: No Transportation Needs (05/05/2023) Received from [facility] Transportation In the past 12 months, has lack of transportation kept you from medical appointments or from getting medications?: No Lack of Transportation (Non-Medical): Not on file Physical Activity: Not on file Stress: Not on file Social Connections: Not on file Intimate Partner Violence: Unknown (05/05/2023) Received from [facility] Humiliation, Afraid, Rape, and Kick questionnaire Fear of Current or Ex-Partner: No Emotionally Abused: Not on file Physically Abused: Not on file Sexually Abused: Not on file Housing Stability: Low Risk (05/05/2023) Received from [facility] Housing Stability Vital Sign Unable to Pay for Housing in the Last Year: Not on file Number of Places Lived in the Last Year: Not on file In the last 12 months, was there a time when you did not have a steady place to sleep or slept in ashelter (including now)?: No ROS: Gastrointestinal: denies abdominal [...] palpableDP and PT pedal pulses NEURO: 5.07 [place] Satish monofilament test intact to digits and [...] underlying condition with diabetic polyneuropathy, unspecified whether 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) 4. Pain due to [...] to both feet. Patient had a diabetic neurologicalexam today to both their feet and discussed proper shoe gear. Visit spent with patient education on condition and treatment of condition. Pt to continue with elevation of feet while resting or NWB. Discussed compression hose and the use of stockings for edema. Discussed condition in detail. Recommendation for vkbi-sqv-myqrmzv compression stockings at this time and may consider prescription stockings in the future. Discussed hallux rigidus condition and arthritis to the great toe joints and becomes worse may consider possible further treatment Patient to continue with oral anti - inflammatories as needed for pain and recommended OTC medications such as tylenol or Ibuprofen Esequiel Reno DPM documented in this encounterOzarks Medical [id number] NoteSUBJECTIVE Reason for Visit: Fern Cardoso is a 63 y.o. year old female patient being seen for 4-month follow-up visit. HPI: Fern Cardoso is a 62-year-old with a medical history of hypertension, diabetes, A-fib/flutter, and obstructive sleep apnea who was admitted to [facility] in April 2023 for with shortness [...] dysfunction Benign hypertensive cardiomyopathy with heart failure ([facility]) Anemia following surgery History of deep venous thrombosis Hypertension Hypokalemia Impaired mobility and activities of daily living Lack of stamina Morbid obesity with body mass index (BMI) of 50.0 to 59.9 in adult ([facility]) Postoperative pain Status post total right knee replacement Thrombocytopenia RAVI (obstructive sleep apnea) Overactive bladder Screening mammogram for breast cancer Type 2 diabetes mellitus with hyperglycemia ([facility]) PONV (postoperative nausea and vomiting) Lumbar back [...] and soft. Musculoskeletal: Inspec (more content not included)...[facility]02-21-2025 NotePatient here for 4 mo follow up HFiEF, PAF s/p afib ablation [...] palpitations. All other systems reviewed and are negative.[facility] 05-14-2023 Evaluation note* Encounter Date Diagnosis Assessment Notes Treatment Notes Treatment Clinical Notes Apr, Atrial fibrillation with RVR (IC D-10 - I48.91) Completed time off work 05/03 - 06/13, RTW 06/14 Keep scheduled appts w Drs. Stark and Daniel (cardio) Updated medication lists. Given samples of eliquis Apr,New onset of congestive heart failure (ICD-10 - I50.9)as above Apr,Essential hypertension (ICD-10 - I10)updated medications, gentle exercise as able. Low sodium diet Apr,OSA (obstructive sleep apnea) (ICD-10 - G47.33)Completed forms for supplies and faxed back to [employer]. Pt states she will restart and become co mpliant w CPAP treatment. [employer] Other 11-17-2023 Evaluation note* Encounter Date Diagnosis Assessment Notes Treatment Notes Treatment Clinical Notes Feb, Contact with and (horowitz spected) exposure to covid-19 (ICD-10 - Z20.822) Feb,OVID-19 (ICD-10 - U07.1) Rapid COVID test performed [...] treatment plan. Patient left in stable condition [facility] Other 07-06-2021 Evaluation note* Diagnosis Onset Date Resolution Status Essential (primary) hypertension October 22, 2020 acuteParoxysmal atrial fibrillationacuteScreening mammogram for breast cancer acuteType 2 diabetes mellitus with hyperglycemiaacute [facility] Work Phone: Evaluation noteNo InformationNortHorsham Clinic [employer] Other Evaluation note* Diagnosis Onset Date Resolution Status Paroxysmal atrial fibrillation acuteScreening mammogram for breast canceracuteType 2 diabetes mellitus with hyperglycemiaacuteWellness examinationacute [facility] Work Phone: Evaluation note* Diagnosis Onset Date Resolution Status Pain in left foot noneactiveLumbar back painacute [facility] Work Phone: Evaluation note* Diagnosis Onset Date Resolution Status Lumbar back pain acuteRight leg swellingacute [facility] Work Phone: Evaluation note* Diagnosis Hallux rigidus of left foot- Primary Hallux rigidus of right foot Diabetes mellitus due to underlying condition with diabetic polyneuropathy, unspecified whether mcfp insulin use (HCC) Pain due to onychomycosis of toenails of both feet Venous insufficiency Unspecified venous (peripheral) insufficiency documented in this encounter [facility] HealthcareEvaluation note* Diagnosis Cervicalgia- Primary Hallux rigidus of left foot- Primary Hallux rigidus of right foot Diabetes mellitus due to underlying condition with diabetic polyneuropathy, unspecified whether 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) Pain due to onychomycosis of toenails of both feet Venous insufficiency Unspecified venous (peripheral) insufficiency documented in this encounter [facility] HealthcareEvaluation note* Diagnosis Hallux rigidus of left foot- Primary Hallux rigidus of right foot Diabetes mellitus due to underlying condition with diabetic polyneuropathy, unspecified whether 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) Pain due to onychomycosis of toenails of both feet Venous insufficiency Unspecified venous (peripheral) insufficiency documented in this encounter [facility] HealthcareHistory general Narrative - Reported* Type Description Date Medical History enlarged heart Medical HistoryArthritisMedical HistoryBlood clotsMedical Historyleft TKA superficial wound infectionMedical Historydiabetes mallitusSurgical Historyknee replacement leftSurgical Historyvein ligationSurgical Historyhysterectomy Surgical Historyright mastectomySurgical Historywisdom teethSurgical HistoryC sectionSurgical Historyright knee arthroplasty05/07Hospitalization Historysee above [employer] Other Reason for visit Narrative* Rehabilitation - Outpatient (Routine) - AuthorizedSpecialtyDiagnoses / ProceduresReferred By ContactReferred To ContactPhysical Therapy Diagnoses Cervicalgia Procedures NC PHYSICAL THERAPY EVALUATION LOW COMPLEX 20 MINS NC OFFICE/OUTPATIENT NEW HIGH MDM 60 MINUTES Rosa Guzman MD [address] [place] [address] fax: Airc Aaron, PT Referral IDStatusReasonStart DateExpiration DateVisits RequestedVisits [id number] [facility] Healthcare Summary Purpose Family History No Family History Records Found Relationship Condition Age at Onset Recorded Date/T annette Not Specified Heart disease Unknown DeceasedUnknownDiabetes mellitusUnknownsisterDeceasedUnknown Relationship Condition Age at Onset Recorded Date/T annette mother Heart disease Unknown DeceasedUnknownDiabetes mellitusUnknownsisterDeceasedUnknown Advance Directives No Advanced Directives Records Found Advance Directive Response Recorded Date/ Time Advance Directives Yes July 19 3:51pm Chief Complaint and Reason for Visit Chief Complaint 6 week follow up WELLNESSReason for VisitEssential (primary) hypertension Paroxysmal atrial fibrillation Screening mammogram for breast cancer Type 2 diabetes mellitus with hyperglycemia Chief Complaint WELLNESS Left foot painReason for VisitParoxysmal atrial fibrillation Screening mammogram for breast cancer Type 2 diabetes mellitus with hyperglycemia Wellness examination Chief Complaint Left foot pain back painReason for VisitPain in left foot Lumbar back pain Chief Complaint back pain CC Adult Risk Stratification leg painReason for VisitLumbar back pain Right leg swelling Chief Complaint back pain CC Adult Risk Stratification leg pain R leg biteReason for VisitLumbar back pain Right leg swelling Additional Source Comments INFORMATION SOURCE (unrecogn ized section and content) DATE CREATED AUTHOR 08/28/2018 [facility] DATE CREATED AUTHOR AUTHOR'S ORGANIZ ATION 05/07/2021 [facility] DATE CREATED AUTHOR AUTHOR'S ORGANIZ ATION 09/19/[address] [facility] DATE CREATED AUTHOR AUTHOR'S ORGANIZ ATION 02/27/2022 [facility] DATE CREATED AUTHOR AUTHOR'S ORGANIZ ATION 12/16/2024 [facility] DATE CREATED AUTHOR AUTHOR'S ORGANIZ ATION 01/21/2025 [facility] DATE CREATED AUTHOR AUTHOR'S ORGANIZ ATION 02/21/2025 [facility] REASON FOR VISIT (unrecogniz ed section and content) ReasonCommentsToenail CareReasonCommentsDM Foot Care Care Teams (unrecognized sec tion and content) Team Status: Active Member Role Status Dates Sindi Benjmain MD Primary Care Provider Active Team Status: [...] Active Start: October 14, 2023 End: October 13Maricarmen Rosales ProviderActiveStart: October 14, 2023 End: October 14, 2023 [...] Care Provider Active Start: October 19, 2023 Sabino Orona ProviderActiveStart: October 19, 2023 Team Status: Inactive Member [...] BE BASED ON THE PRIMARY CLINICAL RECORDS. [facility]. provides no warranty or guarantee of the accuracy or completeness of information in this document.
[2025-03-07 09:00] LABS: Estimated GFR (African America 51 (>=60 mL/min/1.73m^2); Estimated GFR (Non-African Ame 42 (>=60 mL/min/1.73m^2)
--- NOTE | 2025-03-07 09:01 | MR_ITS ---
[place] [id number] Patient Name: FERN CARDOSO MRN: [id number] date: 1960 Sex: F Assigned Patient Location: LAB Current Patient Location: [facility] Accession/Order Number: [id number] Exam Date: 03/07/2025 09:15 Report Date: 03/08/2025 12:51 At the request of: NON-STAFF PHYSICIAN MD Procedure: MR pelvis wo con MRI OF THE PELVIS WITHOUT CONTRAST: CLINICAL HISTORY: Chronic Back Pain COMPARISON: None TECHNIQUE: Multisequence, multiplanar imaging of the pelvis was obtained without the use of IV contrast. FINDINGS: Examination is suboptimal due to body habitus. No bone marrow edema or fracture is seen . Degenerative changes are seen involving the hips with small joint effusions. No evidence of avascular necrosis. Soft tissues surrounding the bony pelvis demonstrate no acute process. No fluid collection to suggest abscess. Musculature appears atrophic without focal abnormality. Intrapelvic contents demonstrate no acute findings. MR/MR pelvis wo con IMPRESSION: Suboptimal study. DEGENERATIVE CHANGES INVOLVING THE HIPS WITHOUT EVIDENCE OF ACUTE BONY PROCESS SUCH FRACTURE OR CONTUSION. Impression dictated by: Jeffy Monae Jr., D.O. 03/08/2025 12:51 PM Dictation Location: [place] [address] Electronically authenticated by: [id number] Date: 03/08/2025 12:51
== END 2025-03-07 08:45 | disposition home or self-care (01) ==
LOC: LAB 08:44
PROVIDERS: Pathology Anatomic Pathology & Clinical Pathology; PCP Internal Medicine
DX: Z01.818 Encounter for other preprocedural examination (principal); M54.9 Dorsalgia, unspecified
CPT/HCPCS: 36415; 72195; 82565

== ENCOUNTER 2025-03-07 08:53 | Outpatient (OUT) | payer OTHER, SELFPAY ==
--- NOTE | 2025-03-07 09:02 | MM_ITS ---
Patient Name: FERN CARDOSO MR#: [id number] : 1960 Exam Date: 03/07/2025 Ordering Doctor: STACY GAMING RADIOLOGY REPORT PROCEDURE: MM TOMOSYNTHESIS SCREENING BI COMPARISON: MM TOMOSYNTHESIS SCREENING BI, 09/10/2023. MG MAMM DIAGNOSTIC 3D GREG CAD, 05/16/2021. MG MAMM GREG SCRN W CAD DIG, 10/25/2012. INDICATIONS: Screening Calculator Name NCI Breast Cancer Risk Assessment Tool 5 Year Breast Cancer Risk 4.10% Lifetime Breast Cancer Risk 16.60% Personal Breast Cancer No Personal Ovarian Cancer No Treatments EXCISION OF SITE Family Cancers Mother with breast cancer at age 61; Aunt-maternal with breast cancer at age ~58. LOCATION: [facility] BREAST COMPOSITION: There are scattered areas of fibroglandular density. FINDINGS: RIGHT BREAST: No significant suspicious finding. There is a new 5 mm focal asymmetry in the right breast in the middle depth a 0.5 cm from the nipple . This localizes to approximately the 3 o'clock position . LEFT BREAST: No significant suspicious finding. DIAGNOSTIC CATEGORY 0--INCOMPLETE: NEED ADDITIONAL IMAGING EVALUATION. RECOMMENDATIONS: ADDITIONAL MAMMOGRAPHIC VIEWS REQUIRED: RIGHT BREAST - follow-up with spot compressed views of the right breast and ultrasound if necessary is recommended. Dictated by: Carson Cavanaugh MD on 03/07/2025 at 16:22 Approved by: Carson Cavanaugh MD on 03/07/2025 at 16:29
--- OUTSIDE RECORDS SUMMARY | 2025-03-07 09:02 | XMS_ITS | CCD ---
Author Organization [facility] Care Team Providers Care Jacquard Loom Card Changer Name Role Phone Hans Whiteside Attending Unavailable [...] Rafael Pickard MD Attending Unavailable Mekhi WOOD, [facility] Unavailable Rafael Pickard MD Attending Unavailable Mekhi WOOD, oRsa Referring Unavailable Mekhi WOOD, [facility] Unavailable Rafael Pickard MD Attending Unavailable Mekhi WOOD, [facility] Unavailable NICOLASA CRONIN Referring [...] Facility (7 sources)Penicillins; Translations: [PENICILLINS]Drug allergy (disorder) 52-77-6400BwvgiCehCleveland Clinic [facility] (12 sources)Ciprofloxacin; Translations: [CIPROFLOXACIN]Drug Ixvoual92-23-8970 Comment:nausea and diarrheaMar[facility] (11 sources)Penicillin GDrug Xvnnjvi78-24-2871wwdlcOxwpajakySelect Medical [facility]ty [facility] [place] (12 sources)traMADol; Translations: [TRAMADOL]Drug Znfmolo38-81-7470ZixavuoGood Samaritan Hospital (6 sources)Substance with penicillin structure and antibacterial mechanism of action (substance)Drug gshbldi07-91-5848KwtngdwPdcah [employer] Other (6 sources)patient allergy list reviewed by nurse or physiciaPropensity to adverse -[id number]:[employer] Other (6 sources)TraMADol & Dietary Manage Prod *ANALGESICS - OPIOIPropensity to adverse acevubemo72-38-6596NhllzveXvlkleco4cloud Other (6 sources)Allergies ReconciledPropensity to adverse reactionsDatam Other (1 source)Penicillin; Translations: [penicillin]Drug AllergySt. [facility] Repository (1 source)diphenhydrAMINE; Translations: [DIPHENHYDRAMINE]Drug Rrjxxbr00-95-3470 [facility] Repository Medications Current Medications MedicationDrug Class(es)DatesSig (Normalized)Sig (Original)apixaban 5 mg oral tablet (15 sources)Factor Xa InhibitorStart: 06-18-2023 End: 94-67-3346zbgl 1 tablet by mouth in the morningapixaban (Eliquis) 5 MG tablet Take 5 mg by mouth in the morning and 5 mg in the evening. 12/21/2023 12/15/2024 Activetake 1 tablet by mouth twice dailyApixaban 5 MG 1 tablet Orally Twice a day Activeaspirin 81 mg delayed release oral tablet (10 sources)Platelet Aggregation Inhibitor, Nonsteroidal Anti-inflammatory Drug Start: 81-77-5971tywk 81 mg by mouth twice dailyAspirin Active 81 MG PO Twice daily 40 July 14, 2018 12:00amStart: 06-22-2018 End: 52-04-2149fcsf 81 mg by mouth once dailyAspirin Discontinued 81 MG PO Daily June 22, 2018 1:00am July 14, 2018 12:23pmASPIRIN 81 MG - this medication is not being screened (6 sources)Start: 05-12-0558DWSJIAB 81 MG - this medication is not being screened ASPIRIN 81 MG - this medication is not being screened( ) Active -Hx Entry for 0 *Reorder from [email or web address] for eRx and Interaction Alerts* Feb, Activebenzonatate 100 mg oral capsule (6 sources)Non-narcotic AntitussiveStart: 39-89-4196zujk 1 capsule by mouth three times daily as neededTessalon Perles 100 MG 1 capsule as needed Orally Three times a day for 7 days Feb, ActiveStart: 39-10-1555Cficlaflmph 200 MG benzonatate 200mg, 1 Capsule 2 to 3 times per day;cough # 30, 01/26/2022, No Refill. Active Oral 2 to 3 times per day;cough for 0 Jan, Active bumetanide 1 mg oral tablet (20 sources)Loop DiureticStart: 06-18-2023 End: 47-20-1970kfsd 1 mg by mouth once dailyBumetanide Active 1 MG PO Daily August 12, 2023 12:00amcarvedilol 6.25 mg oral tablet (15 sources)alpha-Adrenergic Kayli, beta-Adrenergic BlockerStart: 06-18-2023 take 6.25 mg by mouth twice dailyCarvedilol Active 6.25 MG PO Twice daily June 18, 2023 1:00amdapagliflozin 10 mg oral tablet (15 sources)Sodium-Glucose Cotransporter 2 InhibitorStart: 06-18-2023 End: 73-15-3004wdpuctljcvftm (Farxiga) 10 MG Take 10 mg by mouth 12/21/2023 12/20/2024 Activetake 1 tablet by mouth once dailyDapagliflozin Propanediol 10 MG 1 tablet Orally Once a day Activedoxycycline hyclate 100 mg oral tablet (1 source)Tetracycline-class DrugStart: 88-12-2493fvqm 100 mg by mouth twice dailyDoxycycline Hyclate Active 100 MG PO Twice daily February 01, 2024 12:00amlosartan potassium 25 mg oral tablet (11 sources)Angiotensin 2 Receptor BlockerStart: 26-65-4889cymb 25 mg by mouth once dailyLosartan Active 25 MG PO Daily October 14, 2023 12:00ammagnesium oxide 400 mg oral tablet (15 sources)Start: 60-95-7409tzrt 1 tablet by mouth in the morningmagnesium oxide (Mag-Ox) 400 (240 Mg) MG tablet Take 400 mg by mouth in the morning and 400 mg before bedtime. 09/14/2024 ActiveStart: 52-61-8700imqq 400 mg by mouth once dailyMagnesium Oxide Active 400 MG PO Daily June 18, 2023 1:00amtake 1 tablet by mouth every twenty-four hoursMagnesium Oxide 400 MG 1 tablet as needed Orally Once a day Activemetoprolol tartrate 50 mg oral tablet (19 sources)beta-Adrenergic BlockerStart: 02-60-6582zzxj 1 tablet by mouth once dailyMetoprolol Succinate ER 50MG Metoprolol Succinate ER 50MG, 1 (one) Tablet Tablet daily # 0, 09/02/2021, No Refill. Active Oral daily for 0 *Pick strength- form from [employer] for eRX* August, ActiveStart: 07-14-2018 End: 50-74-0544gmkg 50 mg by mouth every twelve hoursMetoprolol Tartrate Discontinued 50 MG PO Q12H 60 July 14, 2018 12:00am June 18, 2023 3:38pm Start: 06-22-2018 End: 40-53-0567iobg 50 mg by mouth once daily in [...] ActivepredniSONE 20 mg oral tablet (3 sources)Start: 31-89-8013qogu 1 tablet by mouth every twelve hoursprednisone 20 MG 1 tablet Orally BID for 5 17 Feb, 2023 Activespironolactone 25 mg oral tablet (15 sources)Aldosterone AntagonistStart: 37-55-9759kzfh 25 mg by mouth once dailySpironolactone Active 25 MG PO Daily June 18, 2023 1:00amsulfamethoxazole 800 mg / trimethoprim 160 mg oral tablet (3 sources)Dihydrofolate Reductase Inhibitor Antibacterial, Sulfonamide AntimicrobialStart: 36-79-6813fsla 1 tablet by mouth twice daily Sulfamethoxazole-Trimethoprim 800-160 MG sulfamethoxazole-trimethoprim 800- 160mg, 1 (one) Tablet two times daily # 20, 01/20/2022, No Refill. Active Oral two times daily for 0 04 Jan, 2022 Active Completed/Discontinued Medications MedicationDrug Class(es)DatesSig (Normalized)Sig (Original)acetaminophen 325 mg oral tablet (5 sources)Start: 07-14-2018 End: 38-12-9313hijy 650 mg by mouth every four hoursAcetaminophen Discontinued 650 MG PO Q4H 0 July 14, 2018 12:00am June 18, 2023 3:36pmamiodarone hydrochloride 400 mg oral tablet (12 sources)AntiarrhythmicStart: 10-14-2023 End: 41-39-9763vlqt 200 mg by mouth once dailyAmiodarone Discontinued 200 MG PO Daily October 14, 2023 9:42am February 14, 2024 10:08amStart: 06-18-2023 End: 66-95-9742cwhm 400 mg by mouth once dailyAmiodarone Discontinued 400 MG PO Daily June 18, 2023 1:00am October 14, 2023 9:42amtake 1 tablet by mouth every twenty-four hoursAmiodarone HCl 400 MG 1 tablet Orally Once a day Active amitriptyline hydrochloride 25 mg oral tablet (6 sources)Tricyclic AntidepressantStart: 32-50-0345Hamsvsdnvbxql HCl 25MG Amitriptyline HCl 25MG, 1 (one) Tablet Tablet at bedtime # 30, 09/17/2021, No Refill. Active Oral at bedtime for 0 *Pick strength-form from [employer] for eRX* Sep, Not-Taking/PRNtake 1 tablet by [...] oral capsule (5 sources)Cephalosporin AntibacterialStart: 01-24-2024 End: 17-40-4516escc 500 mg by mouth three times dailyCephalexin Discontinued 500 MG PO Three times daily 06 11January 24, 2024 12:00am February 01, 2024 4:25pmStart: 24-88-3879cryh 1 capsule by mouth every eight hoursCephalexin 500 MG 1 capsule Orally three times a day for 10 day(s) Sep, Not-Taking/PRN diclofenac sodium 75 mg delayed release oral tablet (19 sources)Nonsteroidal Anti-inflammatory DrugStart: 06-18-2023 End: 95-43-1326fizk 75 mg by mouth twice dailyDiclofenac Sodium Discontinued 75 MG PO Twice daily June 18, 2023 1:00am October 14, 2023 9:42amStart: 11-27-2021 take 1 tablet by mouth twice dailyDiclofenac Sodium 75MG Diclofenac Sodium 75MG, 1 Tablet Tablet twice a day # 0, 11/27/2021, No Refill. Active Oral twice a day for 0 *Pick strength-form from [employer] for eRX* Nov, ActiveStart: 06-22-2018 End: 90-08-8971genb 75 mg by mouth once daily in the morningDiclofenac Sodium Discontinued 75 MG PO Every morning June 22, 2018 1:00am July 14, 2018 12:23pmtake 1 tablet by mouth twice daily at mealtimeDiclofenac Sodium 75 MG TAKE 1 TABLET BY MOUTH TWICE DAILY WITH FOOD for 90 Not-Taking/PRNdocusate sodium 100 mg oral capsule (5 sources)Start: 07-14-2018 End: 79-34-2938okrv 100 mg by mouth twice dailyDocusate Sodium Discontinued 100 MG PO Twice daily July 14, 2018 12:00am June 18, 2023 3:38pm0.4 ml enoxaparin sodium 100 mg/ml prefilled syringe (5 sources)Low Molecular Weight HeparinStart: 07-06-2018 End: 51-20-3180Urictknajd (Lovenox) 40 mg/0.4 mL Syringe Discontinued 40 MG SUBCUT Every 12 hours at 1000 & 2200 July 06, 2018 12:00am July 14, 2018 12:23pmhydrOXYzine pamoate 50 mg oral capsule (10 sources)AntihistamineStart: 07-06-2018 End: 84-49-1866rwfs 25 mg by mouth every three hoursHydroxyzine Pamoate Discontinued 25 MG PO Q3H July 06, 2018 12:00am July 14, 2018 12:24pm Start: 07-06-2018 End: 76-29-2903jelj 50 mg by mouth every three hoursHydroxyzine Pamoate Discontinued 50 MG PO Q3H July 06, 2018 12:00am July 14, 2018 12:23pm Ketorolac (12 sources)Nonsteroidal Anti-inflammatory Drug, Cyclooxygenase InhibitorStart: 28-96-1782Ioiwzqy per 15 mg May, 30 mgStart: 86-88-4147Qcvxkmp per 15 mg Oct, 30 mg24 hr metFORMIN hydrochloride 500 mg extended release oral tablet (20 sources)BiguanideStart: 06-18-2023 End: 94-89-3464xjpv 500 mg by mouth once daily in the eveningMetformin Discontinued 500 MG PO Every evening 90 December 07, 2023 8:39am December 07, 2023 8:40amStart: 59-56-0261zqim 1 tablet by mouth once daily in the evening Metformin 500mg metFORMIN 500mg, 1 (one) Tablet every evening # 0, 03/16/2022, No Refill. Active oral every evening for 0 *Reorder from [employer] for eRx and Interaction Alerts* Feb, Activetake [...] mg oral tablet (5 sources)CorticosteroidStart: 12-16-2023 End: 79-63-6053ucfd 1 tablet by mouth onceMethylprednisolone (Medrol (Eric)) 4 mg tablets,dose pack Discontinued 0 PO per package directions December 28, 2023 2:58pm January 24, 2024 10:03am PO PER PKG DIR for 6 daysmidodrine hydrochloride 5 mg oral tablet (5 sources)alpha-Adrenergic AgonistStart: 06-21-2023 End: 47-23-0147ybqe 1 dose by mouth once daily at bedtimeMidodrine Discontinued 5 MG PO Three times daily June 21, 2023 1:00am August 12, 2023 11:11am donot give last dose of day after 6PM or within 4 hrs of bedtimeMultivitamin (Multiple Vitamins) Tablet (5 sources)Start: 06-22-2018 End: 01-74-2803hbqt 1 tablet by mouth once dailyMultivitamin (Multiple Vitamins) Tablet Discontinued 1 TAB PO Daily June 22, 2018 1:00am July 14, 2018 12:27pmMultivitamin With Folic Acid (Thera) 400 mcg Tablet (5 sources)Start: 07-14-2018 End: 69-24-0687ofsl 1 tablet by mouth once dailyMultivitamin With Folic Acid (Thera) 400 mcg Tablet Discontinued 1 TAB PO Daily July 14, 2018 12:00am June 18, 2023 3:38pmoxyCODONE hydrochloride 5 mg oral tablet (20 sources)Opioid AgonistStart: 07-14-2018 End: 55-92-9736lhvd 5 mg by mouth every six hoursOxycodone Discontinued 5 MG PO Every 6 hours 05 09July 14, 2018 12:00am June 18, 2023 3:38pmStart: 07-06-2018 End: 60-35-8783bhen 10 mg by mouth every four hoursOxycodone Discontinued 10 MG PO Every 4 hours July 06, 2018 2:17pm July 14, 2018 12:27pmStart: 07-06-2018 End: 34-44-5935xlyo 5 mg by mouth every four hoursOxycodone Discontinued 5 MG PO Every 4 hours July 06, 2018 2:17pm July 14, 2018 12:28pmsacubitril 24 mg / valsartan 26 mg oral tablet (8 sources)Angiotensin 2 Receptor BlockerStart: 06-18-2023 End: 32-06-1634hzde 1 tablet by mouth twice dailySacubitril-Valsartan (Entresto) 24-26 mg tablet Discontinued 1 TAB PO Twice daily June 18, 2023 1:00am August 12, 2023 11:12amtake 1 tablet by mouth every twelve hoursEntresto 24-26 MG 1 tablet Orally Twice a day ActiveTriamcinolone (12 sources)CorticosteroidStart: 13-55-1613Eefxysp -40 mg May, 40 mg Start: 53-63-8179JLJYBPI - 10 mg Oct, 40 mgvitamin b12 1 mg oral tablet (13 sources)Vitamin U29Yzwed: 06-22-2018 End: 44-31-2988lkud 1000 ug by mouth once dailyCyanocobalamin (Vitamin [...] renal failure syndrome; Translations: [Acute kidney failure, unspecified]13-55-0178WyhsgewoNgpdi bronchitis (12 sources)Acute bronchitis; Translations: [Acute bronchitis due to other specified organisms]EpisodicAdministrative/social admission (5 sources)Other reduced mobility; Translations: [Impaired mobility and activities of daily living]69-46-9089HequlicxHxyojxd dysrhythmias (20 sources)Premature beats; Translations: [Other premature beats]Onset: 76-69-1952OnnjwtqYvxoitd dysrhythmias (4 sources)Palpitations; Translations: [Palpitations]Onset: 60-48-6823Vbiwjglt Chronic obstructive pulmonary disease and bronchiectasis (6 sources)Bronchitis; Translations: [Bronchitis, not specified as acute or chronic]EpisodicCoagulation and hemorrhagic disorders (11 sources)Immune thrombocytopenic purpura; Translations: [Immune thrombocytopenic purpura]70-03-8165VhvzghdOruxmbxquv associated with dizziness or vertigo (2 sources)Dizziness; Translations: [Dizziness]Onset: 60-97-1926Ikgjvkvj Conduction disorders (7 sources)Left bundle-branch block, unspecified; Translations: [Left bundle branch block]Onset: 90-92-4069TlotyfiXktvgknmxg heart failure; nonhypertensive (10 sources)Congestive heart failure; Translations: [Heart failure, unspecified] Onset: 59-35-6706VpousvoKqpnbkmett and other anemia (11 sources)Anemia; Translations: [Anemia, unspecified]Onset: 07-29-2018 52-31-1921VuwsqshnNlcayord mellitus with complications (17 sources)Hyperglycemia due to type 2 diabetes mellitus; Translations: [Type 2 diabetes mellitus with hyperglycemia]15-96-2394XkzxdkmIwyfuues mellitus without complication (6 sources)Impaired fasting glycemia; Translations: [Impaired fasting glucose] EpisodicEssential hypertension (20 sources)Essential hypertension; Translations: [Essential (primary) hypertension]Onset: 89-95-0981KjwjjxqFysrj and electrolyte disorders (5 sources)Hypokalemia; Translations: [Hypokalemia]43-91-5874Lsuysqkz Genitourinary symptoms and ill-defined conditions (6 sources)Finding of frequency of urination; Translations: [Frequency of micturition]EpisodicHypertension with complications and secondary hypertension (2 sources)Hypertensive heart disease with heart failure; Translations: [Hypertensive heart disease with heartfailure]Onset: 76-21-8873RtpfxpvGfqwvqa and fatigue (2 sources)Fatigue; Translations: [Fatigue]Onset: 22-01-7083QsafbgmqXitaoqm (4 sources)Pain in toe; Translations: [Tinea unguium]70-79-6305Rkosupob Osteoarthritis (20 sources)Osteoarthritis; Translations: [Unspecified osteoarthritis, unspecified site]Onset: 17-95-0976JvyivohAjtne circulatory disease (2 sources)Presence of other cardiac implants and grafts; Translations: [Presence of other cardiac implants and grafts]Onset: 43-84-7892PyswwbyFckms circulatory disease (6 sources)Elevated blood-pressure reading without diagnosis of hypertension; Translations: [Elevated blood-pressure reading, without diagnosis of hypertension]EpisodicOther connective tissue disease (11 sources)History of total knee arthroplasty; Translations: [Presence of right artificial knee joint]38-06-0389VrlyhwoZljpp connective tissue disease (6 sources)Pain in limb; Translations: [Pain in right finger(s)]EpisodicOther connective tissue disease (1 source)Pain in left foot; Translations: [Pain in limb]80-91-9006JhfsrfgsLgije connective tissue disease (2 sources)Swelling of right lower limb; Translations: [Other specified soft tissue disorders]87-07-1292EnheoqlzKahgk connective tissue disease (2 sources)Other specified soft tissue disorders; Translations: [Swelling of limb]73-98-9187SbigdyybYpsdj diseases of bladder and urethra (11 sources)Overactive bladder; Translations: [Overactive bladder]Onset: 488970-59-5341VzubwerCnimb diseases of veins and lymphatics (4 sources)Vascular insufficiency; Translations: [Venous insufficiency (chronic) (peripheral)]83-97-8097WflfibwoJrovu gastrointestinal disorders (6 sources)Irritable bowel syndrome with diarrhea; Translations: [Irritable bowel syndrome with diarrhea]ChronicOther gastrointestinal disorders (6 sources)Diarrhea; Translations: [Diarrhea, unspecified]EpisodicOther nervous system disorders (5 sources)Postoperative pain ; Translations: [Other acute postprocedural pain] 18-04-8383GrbvqnwdYqwii nutritional; endocrine; and metabolic disorders (6 sources)Morbid obesity; Translations: [Morbid (severe) obesity due to excess calories]Onset: 92-72-7438JlacexkYwujw nutritional; endocrine; and metabolic disorders (17 sources)Body mass index 40+ - severely obese; Translations: [Body mass index (BMI) 60.0-69.9, adult]81-99-5997RmzpnzoLycay screening for suspected conditions (not mental disorders or infectious disease) (18 sources)Abnormal electrocardiogram [ECG] [EKG]; Translations: [Other abnormal and inconclusive findings on diagnostic imaging of breast]Onset: 77-70-8607OnnbwplpDjnqt upper respiratory disease (6 sources)Seasonal allergic rhinitis; Translations: [Other seasonal allergic rhinitis]Onset: 01-33-1930OahxsyjRsiju upper respiratory disease (6 sources)Allergic rhinitis; Translations: [Allergic rhinitis, unspecified] ChronicOther upper respiratory infections (6 sources)Sinusitis; Translations: [Chronic sinusitis, unspecified]ChronicPeri- ; endo-; and myocarditis; cardiomyopathy (except that caused by tuberculosis or sexually transmitted disease) (2 sources)Cardiomyopathy in diseases classified elsewhere; Translations: [Cardiomyopathy in diseases classified elsewhere]Onset: 96-33-8386Xgeyaad Phlebitis; thrombophlebitis and thromboembolism (5 sources)H/O: Deep vein thrombosis; Translations: [Personal history of other venous thrombosis and embolism]44-28-0167EdwanxnsBaxgqktc codes; unclassified (14 sources)Obstructive sleep apnea syndrome; Translations: [Obstructive sleep apnea (adult) (pediatric)]Onset: 000344-94-5520WpitjqpPynokuwj codes; unclassified (1 source)Obstructive sleep apnea (adult) (pediatric)ChronicResidual codes; unclassified (6 sources)Family history of diabetes mellitus; Translations: [Family history of diabetes mellitus]EpisodicResidual codes; unclassified (6 sources)Localized edema; Translations: [Localized edema]EpisodicSkin and subcutaneous tissue infections (12 sources)Localized infection of skin AND/OR subcutaneous tissue; Translations: [Unspecified local infection of skin and subcutaneous tissue] Onset: 14-88-1484GvoodhpuJojsklauplm; intervertebral disc disorders; other back problems (13 sources)Low back pain; Translations: [Lumbago]Onset: EpisodicUnclassified (3 sources)Other ventricular tachycardia; Translations: [Other ventricular tachycardia] Past or Other Problems Problem ClassificationProblemDateDocumented DateEpisodic/ChronicNonspecific chest pain (6 sources)Chest pain; Translations: [Chest pain, unspecified]Onset: 06-25-2015 EpisodicOther circulatory disease (2 sources)Personal history of other diseases of the circulatory system; Translations: [Personal history of other diseases of the circulatory system] Onset: 27-91-0496HiirydwmNeubz gastrointestinal disorders (4 sources)Diarrhea, unspecified; Translations: [DIARRHEA UNSPECIFIED]Onset: 63-15-0404FzdmccpuNaejo liver diseases (6 sources)Elevated levels of transaminase & lactic acid dehydrogenase; Translations: [Nonspecific elevation of levels of transaminase or lactic acid dehydrogenase (LDH)]Onset: 64-17-6337IkekuoolYjzmd non-traumatic joint disorders (6 sources)Arthralgia of the ankle and/or foot; Translations: [Pain in joint, ankle and foot]Onset: 01-79-2295UrmcvpbkTxfhe non-traumatic joint disorders (6 sources)Arthralgia of the lower leg; Translations: [Pain in joint, lower leg] Onset: 44-35-2309XmrupsehIhkpz upper respiratory infections (6 sources)Acute maxillary sinusitis; Translations: [Acute recurrent maxillary sinusitis]Onset: 16-72-0283PwibvlxfUycnrnjl codes; unclassified (2 sources)Other specified postprocedural states; Translations: [Other specified postprocedural states]Onset: 05-84-0414NvxqhmamOcvhdrsxeytk (1 source)Contact with and (suspected) exposure to covid-19 Z20.822Unclassified (5 sources)Lack of stamina; Translations: [Impaired endurance]30-52-9569Aokgq infection (1 source)COVID-19 Results Test NameValueInterpretationReference RangeFacilityOffice Visiton 02-20-2025 Follow-up [id number] Fern Cardoso 1960 F Date Provider Department Center 02/20/2025 Yoana-NICOLASA CRONIN ELAINE Lyle [facility] Family History Problem Relation Age of Onset Heart attack Mother Stroke Mother Atrial fibrillation Father Heart attack Brother Stroke Brother Family Status - Relation Status Age at Mother Father Brother Level of Service:00680 IN OFFICE/OUTPATIENT ESTABLISHED LOW [facility] 20 MIN Reason for Visit and Comments: Follow-up [057698] - Patient is here today for a 3 month follow up. Patient states she feels ok. Patient denies chest pain, Patient complains of increase in dizziness/lightheaded, palpitation/racing heart which has decrease with the increase in carvedilol with position changes, neck and back pain. Congestive Heart Failure [127] Atrial Fibrillation [80] Hypertension [771982] Dizziness [634209] - Increased dizziness/light headed with position changes Fatigue [46] - Increased in fatigue Palpitations [325686]NormalKindred HealthcareHLA D49-Weeamx 55-59-3681YHK B27 Intrp-MayoSEE BELOWNormalSt. John Of God HospitalComment on above:Result Comment: RESULT: HLA-B27 antigen was not detected. ADDITIONAL INFORMATION Method: Flow Cytometry CLIA: [id number] CLIA Management Associate: LINDEN DUNCAN,Ph.D. Test Performed by: [address] [address] Management Associate: Linden Duncan Ph.D.; CLIA# [id number] By: #### HLA D06-Zecr #### [place], [place] [address]HLA W07-CknbCjrbsrdtFkqvixWxd ApplicableSt. John Of God HospitalComment on above:Performed By: #### HLA C99-Yhzh #### [address] [address]Lmmvucpvlcuq Office/Clinic Noteon 54-02-9668Iynrsatitjkb Office/Clinic NoteChief Complaint neck pain, lower back [...] facilitate the conversation. 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 Explain if yes: [_] History of unusual rashes ([_]) - were any seen by a pastrycook or biopsied by any provider? ([_]) History [...] Skin: Nailfold capillar (more content not included)...NormalBlanchard [facility] SystemANA Crr-8-Aazroc 26-59-7536KVJ Cytoplasmic Pattern-MayoNot ReportedNormal [facility] SystemComment on above:Performed By: #### Antinuclear Antibody HEp-2 Substrate-May #### [facility] [address] [place], [place] [address]KNM Lab Comment-MayoNot ReportedNormalBlmaimonides [facility] hospitalard [facility] SystemComment on above:Performed By: #### Antinuclear Antibody HEp-2 Substrate- May #### [facility] [address] [place], [place] [address]ZOU Pattern (2)-MayoNot ReportedNormalBlmaimonides [facility] hospitalard [facility] SystemComment on above:Performed By: #### Antinuclear Antibody HEp-2 Substrate- May #### [facility] [address] [place], [place] [address]AFZ Pattern-MayoNot ReportedNormalShelby Memorial Hospital Health SystemComment on above:Performed By: #### Antinuclear Antibody HEp-2 Substrate- May #### [facility] [address] [place], [place] [address]MPH Titer (2)-MayoNot ReportedNormalShelby Memorial Hospital Health SystemComment on above:Performed By: #### Antinuclear Antibody HEp-2 Substrate- May #### [facility] [address] [place], [place] [address]IIJ Titer-MayoNot ReportedNormalShelby Memorial Hospital Health SystemComment on above:Performed By: #### Antinuclear Antibody HEp-2 Substrate- May #### [facility] [address] [place], [place] [id number]-8 ILSA-MayoSEE BELOWNormal<1:80 (Negative)[facility] Health SystemComment on above:Result Comment: RESULT: <1:80 (Negative) ADDITIONAL INFORMATION Method: Immunofluorescence using HEp-2 cellular substrate. Test Performed by: [facility] [address] [place] [address] Management Associate: Linden Duncan Ph.D.; CLIA# [id number] By: #### Antinuclear Antibody HEp-2 Substrate-May #### [facility] [address] [place], [place] [address]KIX Ab-[facility] 56-48-0450XQH Ab-Reece<15.6Normal<20.0 (Negative)[facility] HospitalComment on above:Result Comment: Interpretation: Antibodies to CCP not detected. If clinical symptoms are strongly indicative for rheumatoid arthritis, suggest testing for Rheumatoid Factor, S (RHUT) and, if positive, Rheumatoid Factor Panel, S (RFPN), which includes differentiation of rheumatoid factor IgM and IgA isotypes. Test Performed by: [facility] [place] [address] Management Associate: Linden Duncan Ph.D.; CLIA# [id number] By: #### Cyclic Citrullinated Peptide Antibody-Ma #### [facility] [address] [place], [place] [address]FT-L and SS-B Ab, S-[facility] 93-19-3781DM-A/Ro IgG-Reece<0.2 Normal<1.0 (Negative)[facility] HospitalComment on above:Performed By: #### CD:[id number] #### [facility] [address] [place], [place] [address]WD-C/La IgG-Reece<0.2Normal<1.0 (Negative)[facility] HospitalComment on above:Result Comment: Test Performed by: [facility] [place] [address] Management Associate: Linden Duncan Ph.D.; CLIA# [id number] By: #### CD:[id number] #### [facility] [address] [place], [place] [address]Fctjzpvdpv Factor, Serumon 37-60-9459Ykehyfulgx Factor,Serum <10.0Vgnmov6.0-14.0St[facility] HospitalComment on above:Performed By: #### CD:[id number] #### [address] [address]IFZnh 32-05-9740JBH [Mass/Vol]2.0 mg/LNormal0.0-9.9BTrumbull Regional Medical CenterComment on above:Result Comment: For normal applications of [...] FUTURE CARDIAC EVENTS.Performed By: #### CRP #### [address] [address]NPRvt 47-83-9820Apg Rate41 mm/hrHigh0-30St. [facility] HospitalComment on above:Performed By: #### ESR #### [address] [address]Sgugrm Onlyon 12-80-1173Wonutp [id number] Fern Cardoso A 1960 F Date Provider Department Center 01/05/2025 [id number], HISTORICAL CARD [facility] Family History Problem Relation Age of Onset Heart attack Mother Stroke Mother Atrial fibrillation Father Heart attack Brother Stroke Brother Family Status - Relation Status Age at Mother Father Brother DeceasedNormalUniAvita Health System Ontario HospitalOrders Onlyon 23-73-5230Bqtcbu [id number] TristanFern A 1960 F Date Provider Department Center 01/04/2025 [id number] REINOSO [facility] CARD [facility] Family History Problem Relation Age of Onset Heart attack Mother Stroke Mother Atrial fibrillation Father Heart attack Brother Stroke Brother Family Status - Relation Status Age at Mother Father Brother DeceasedNormalUniAvita Health System Ontario HospitalOrders Onlyon 47-58-0089Mijyzt [id number] TristanFern A 1960 F Date Provider Department Center 12/02/2024 [id number] REINOSO [facility] CARD [facility] Family History Problem Relation Age of Onset Heart attack Mother Stroke Mother Atrial fibrillation Father Heart attack Brother Stroke Brother Family Status - Relation Status Age at Mother Father Brother DeceasedNoalUTrumbull Regional Medical CenterOffice Visiton 47-04-6047Zrmpci-up [id number] Fern Cardoso A 1960 F Date Provider Department Center 11/29/2024 BENY LAZAR CARD [facility] Family History Problem Relation Age of Onset Heart attack Mother Stroke Mother Atrial fibrillation Father Heart attack Brother Stroke Brother Family Status - Relation Status Age at Mother Father Brother Level of Service:06904 IN OFFICE/OUTPATIENT ESTABLISHED MOD MDM 30 MIN Reason for Visit and Comments: Congestive Heart Failure [127] Atrial Fibrillation [80] Hypertension [689437][facility] DaytonOrders Onlyon 17-46-3915Scjcwm [id number] CardosoFern briggs A 1960 F Date Provider Department Center 10/28/2024 NICOLASA WILLIS HVC CARD [place] [facility] Family History Problem Relation Age of Onset Heart attack Mother Stroke Mother Atrial fibrillation Father Heart attack Brother Stroke Brother Family Status - Relation Status Age at Mother Father BrotherNoAshtabula County Medical CenterOffice Visiton 20-82-9508Nweqwv- up [id number] Fern Cardoso A 1960 F Date Provider Department Center 06/09/2024 [id number] CROFT CARD [facility] Family History Problem Relation Age of Onset Heart attack Mother Stroke Mother Atrial fibrillation Father Heart attack Brother Stroke Brother Family Status - Relation Status Age at Mother Father Brother Level of Service:81060 IN OFFICE/OUTPATIENT ESTABLISHED LOW MDM 20 MINNormal [facility] HealthcareOrders Onlyon 13-75-9808Jfhybn [id number] TristanFern A 1960 F Date Provider Department Center 06/09/2024 [id number] CROFT [facility] CARD [facility] Family History Problem Relation Age of Onset Heart attack Mother Stroke Mother Atrial fibrillation Father Heart attack Brother Stroke Brother Family Status - Relation Status Age at Mother Father BrotherNormalUTrumbull Regional Medical CenterOrders Onlyon 98-93-2284Fjespd [id number] Cardoso,Fern A 1960 F Date Provider Department Center 05/15/2024 NICOLAS JEFFREY CARD [facility] Family History Problem Relation Age of Onset Heart attack Mother Stroke Mother Atrial fibrillation Father Heart attack Brother Stroke Brother Family Status - Relation Status Age at Mother Father BrotherNormalUniversity of Harris Health System Lyndon B. Johnson HospitalBasophils Auto (Bld) [#/Vol]on 07-92-9748Mtnzmfobe (Bld) [#/Vol]0.0 10 3/uL0.0-0.1FAshtabula General HospitalBasophils/100 WBC Auto (Bld)on 26-70-6831Vlfrmznda/100 WBC (Bld)1.0 % 0.2-2.0[facility] HospitalEosinophils/100 WBC Auto (Bld)on 23-84-0337Irzcdokdhnu/100 WBC (Bld)3.6 %0.9-7.0[facility] Erythrocyte distribution width Auto (RBC) [Ratio]on 18-67-4024Ctxrgfhahdp distribution width (RBC) [Ratio]13.6 %11.0-15.0[facility] Estimated glomerular filtration rate (GFR) non- Americanon 10-19-2023 GFR/1.73 sq M.predicted among non-blacks MDRD (S/P/Bld) [Vol rate/Area]41 mL/min/{1.73_m2}Low>=60[facility] HospitalHematocrit Auto (Bld) [Volume fraction]on 89-76-2742Vaycmmqhpq (Bld) [Volume fraction]36.4 %36.0-48.0 [facility] HospitalHemoglobin [Mass/volume] in Bloodon 10-19-2023 Hemoglobin (Bld) [Mass/Vol]11.5 g/dLLow12.0-16.0[facility] HospitalLaboratory - Chemistry and Chemistry - challengeon 40-05-9260Iztgcwa [Mass/Vol]8.5 mg/dL8.5-10.1FAshtabula General HospitalChloride [Moles/Vol] 102 mmol/O04-360QweceearxMarion HospitalCO2 [Moles/Vol]31.2 mmol/L 21.0-32.0[facility] HospitalCreatinine [Mass/Vol]1.31 mg/dLHigh 0.55-1.02[facility] HospitalGFR/1.73 sq M.predicted MDRD (S/P/Bld) [Vol rate/Area]50 mL/min/{1.73_m2}Low>=60[facility] Glucose [Mass/Vol]148 mg/tBAwck85-084QytrlhflyMarion HospitalPotassium [Moles/Vol]3.8 mmol/L3.5-5.1FSt. Vincent Hospitalodium [Moles/Vol] 142 mmol/B303-232BjisaqgjyMarion HospitalUrea nitrogen [Mass/Vol]22.0 mg/dLHigh7.0-18.0[facility] HospitalUrea nitrogen/Creatinine [Mass ratio]16.8 mg/mgMarion HospitalLaboratory - Hematology and Cell countson 08-01-8283Tazirlby granulocytes/100 WBC (Bld)0.3 %0.0-0.5FAshtabula General HospitalLeukocytes [#/volume] corrected for nucleated erythrocytes in Blood by Automated counon 82-03-6960WDR corrected for nucl RBC Auto (Bld) [#/Vol]3.9 10 3/uLLow4.0-11.0[facility] Lymphocytes Auto (Bld) [#/Vol]on 91-29-2132Ijxhsursjol (Bld) [#/Vol]1.0 10 3/uL Low1.2-3.8[facility] HospitalLymphocytes/100 WBC Auto (Bld)on 20-92-5973Agzsipfhagv/100 WBC (Bld)26.3 %20.5-60.0Avita Health SystemH Auto (RBC) [Entitic mass]on 84-32-6227BJP (RBC) [Entitic mass]28.3 pg 26.7-34.0[facility] HospitalMCHC Auto (RBC) [Mass/Vol]on 73-18-4848HWDE (RBC) [Mass/Vol]31.6 g/dL29.9-35.2FAshtabula General HospitalMCV Auto (RBC) [Entitic vol]on 91-57-9342KZX (RBC) [Entitic vol]89.4 fL 81.0-99.0[facility] HospitalMonocytes Auto (Bld) [#/Vol]on 35-98-6576Zkhlaqccd (Bld) [#/Vol]0.3 10 3/uL0.3-0.8[facility] HospitalMonocytes/100 WBC Auto (Bld)on 51-27-0301Pmbylecus/100 WBC (Bld)6.4 % 1.7-12.0[facility] HospitalNeutrophils Auto (Bld) [#/Vol]on 11-38-2124Jkhkntpcfni (Bld) [#/Vol]2.4 10 3/uL1.4-6.5FAshtabula General HospitalNeutrophils/100 WBC Auto (Bld)on 88-92-8465Wywxbkxczit/100 WBC (Bld)62.4 % 43.0-75.0[facility] HospitalNo Panel Informationon 10-19-2023 Eosinophils # (Auto)0.1 10 3/uL0.0-0.7FAshtabula General HospitalImmature Granulocyte # (Auto)0.01 10 3/uL0.00-0.03[facility] Platelet mean volume Auto (Bld) [Entitic vol]on 34-37-1270Hxijliqh mean volume (Bld) [Entitic vol]10.8 fL9.5-13.5FAshtabula General HospitalPlatelets Auto (Bld) [#/Vol]on 97-43-3405Arvxmgljw (Bld) [#/Vol]122 10 3/vKSgb354-589 [facility] HospitalRBC Auto (Bld) [#/Vol]on 45-89-1743VWR (Bld) [#/Vol]4.07 10 6/uLLow4.20-5.40Bethesda North Hospitalerum or plasma anion gap determinationon 18-93-7599Nojdm gap [Moles/Vol]12.6 mmol/LFAshtabula General HospitalGlucose mean value [Mass/volume] in Blood Estimated from glycated hemoglobinon 55-02-4434Clowdgo glucose Estimated from glycated hemoglobin (Bld) [Mass/Vol]111 mg/dLMarion HospitalLaboratory - Hematology and Cell countson 41-47-3988KeG9c (Bld) [Mass fraction]5.5 %4.5-6.2 [facility] HospitalComment on above:ADA RECOMMENDED LIMIT 4.0 - 6.0ADA THERAPEUTIC TARGET < 7.0ACTION SUGGESTED> 7.0Basophils Auto (Bld) [#/Vol] on 68-50-6216Ecqfuwyzl (Bld) [#/Vol]0.1 10 3/uL0.0-0.1FAshtabula General HospitalBasophils/100 WBC Auto (Bld)on 10-58-7596Uhhtabinq/100 WBC (Bld)1.2 % 0.2-2.0[facility] HospitalEosinophils/100 WBC Auto (Bld)on 15-07-7083Qxeskpgkwwu/100 WBC (Bld)4.3 %0.9-7.0[facility] Erythrocyte distribution width Auto (RBC) [Ratio]on 14-33-6665Sykmobpfobj distribution width (RBC) [Ratio]15.3 %11.0-15.0[facility] Estimated glomerular filtration rate (GFR) non- Americanon 07-09-2023 GFR/1.73 sq M.predicted among non-blacks MDRD (S/P/Bld) [Vol rate/Area]43 mL/min/{1.73_m2}>=60[facility] HospitalHematocrit Auto (Bld) [Volume fraction]on 22-81-7503Igcayskxhn (Bld) [Volume fraction]40.3 %36.0-48.0 [facility] HospitalHemoglobin [Mass/volume] in Bloodon 07-09-2023 Hemoglobin (Bld) [Mass/Vol]12.8 g/dL12.0-16.0[facility] Laboratory - Chemistry and Chemistry - challengeon 22-79-5093Mzgmprq [Mass/Vol] 8.9 mg/dL8.5-10.1FAshtabula General HospitalChloride [Moles/Vol]102 mmol/L 98-107Mar[facility] HospitalCO2 [Moles/Vol]30.1 mmol/L21.0-32.0 [facility] HospitalCreatinine [Mass/Vol]1.27 mg/dL0.55-1.02 [facility] HospitalGFR/1.73 sq M.predicted MDRD (S/P/Bld) [Vol rate/Area]52 mL/min/{1.73_m2}>=60[facility] HospitalGlucose [Mass/Vol]114 mg/uH25-698SlywwbakrMarion HospitalPotassium [Moles/Vol] 3.7 mmol/L3.5-5.1FSt. Vincent Hospitalodium [Moles/Vol]142 mmol/L 136-145Mar[facility] HospitalUrea nitrogen [Mass/Vol]18.0 mg/dL 7.0-18.0[facility] HospitalUrea nitrogen/Creatinine [Mass ratio] 14.2 mg/mgMarion HospitalLaboratory - Hematology and Cell countson 03-46-9166Dxfzbwyd granulocytes/100 WBC (Bld)0.2 %0.0-0.5FAshtabula General HospitalLeukocytes [#/volume] corrected for nucleated erythrocytes in Blood by Automated counon 54-97-9359PXQ corrected for nucl RBC Auto (Bld) [#/Vol]4.2 10 3/uL4.0-11.0[facility] Lymphocytes Auto (Bld) [#/Vol]on 94-05-5633Lmusxijocqp (Bld) [#/Vol]1.5 10 3/uL 1.2-3.8[facility] HospitalLymphocytes/100 WBC Auto (Bld)on 42-02-4054Yvixbcijbjv/100 WBC (Bld)34.8 %20.5-60.0[facility] HospitalMCH Auto (RBC) [Entitic mass]on 19-29-2776XWW (RBC) [Entitic mass]29.0 pg 26.7-34.0[facility] HospitalMCHC Auto (RBC) [Mass/Vol]on 07-85-4911EDMS (RBC) [Mass/Vol]31.8 g/dL29.9-35.2FAshtabula General HospitalMCV Auto (RBC) [Entitic vol]on 45-56-6236UES (RBC) [Entitic vol]91.4 fL 81.0-99.0[facility] HospitalMonocytes Auto (Bld) [#/Vol]on 82-96-6756Kerdgfelh (Bld) [#/Vol]0.3 10 3/uL0.3-0.8[facility] HospitalMonocytes/100 WBC Auto (Bld)on 54-77-9286Skabobsic/100 WBC (Bld)7.6 % 1.7-12.0[facility] HospitalNeutrophils Auto (Bld) [#/Vol]on 36-10-3785Jwmnmjlciqd (Bld) [#/Vol]2.2 10 3/uL1.4-6.5FAshtabula General HospitalNeutrophils/100 WBC Auto (Bld)on 26-35-0341Ybpcgfqebjb/100 WBC (Bld)51.9 % 43.0-75.0[facility] HospitalNo Panel Informationon 07-09-2023 Eosinophils # (Auto)0.2 10 3/uL0.0-0.7FAshtabula General HospitalImmature Granulocyte # (Auto)0.01 10 3/uL0.00-0.03[facility] Platelet mean volume Auto (Bld) [Entitic vol]on 81-94-3774Tcqocvxv mean volume (Bld) [Entitic vol]12.4 fL9.5-13.5FAshtabula General HospitalPlatelets Auto (Bld) [#/Vol]on 35-05-8655Folmfqkdf (Bld) [#/Vol]108 10 3/tW943-109 [facility] HospitalRBC Auto (Bld) [#/Vol]on 10-81-8061ABK (Bld) [#/Vol]4.41 10 6/uL4.20-5.40Bethesda North Hospitalerum or plasma anion gap determinationon 09-20-2907Orukc gap [Moles/Vol]13.6 mmol/LFAshtabula General HospitalCBC AUTO DIFFon 67-97-2781LKPV #0.0 103/ulNormal0.0-0.1 The [facility] HospitalComment on above:Performed By: #### CBC #### [facility] [address] [address] [address] Rivas ZhaoBasophils/100 WBC (Bld)0.7 %Normal0.2-2.0The [facility] Comment on above:Performed By: #### CBC #### [facility] [address] [place] [address] Dr. Rivas Peter #0.2 103/ulNormal0.0-0.7The [facility] HospitalComment on above: Performed By: #### CBC #### [facility] [address] [place] [address] Dr. Rivas Dcosinophils/100 WBC (Bld)3.4 %Normal0.9-7.0The [facility] Comment on above:Performed By: #### CBC #### [facility] [address] [place] [address] Dr. Rivas Dcrythrocyte distribution width (RBC) [Ratio]14.8 %Puvhxz54.0-15.0 The [facility] HospitalComment on above:Performed By: #### CBC #### [facility] [address] [place] [address] Dr. Rivas ZhaoHematocrit (Bld) [Volume fraction]38.4 %Hsxqvr33.0-48.0The [facility] HospitalComment on above:Performed By: #### CBC #### [facility] [address] [place] [address] Dr. Rivas ZhaoHemoglobin (Bld) [Mass/Vol]12.7 g/aMKixuxn44.0-16.0The [facility] HospitalComment on above:Performed By: #### CBC #### [facility] [address] [place] [address] Dr. Rivas Berry #0.01 10e3/ulNormal0.00-0.03The [facility] HospitalComment on above:Performed By: #### CBC #### [facility] [address] [place] [address] Dr. Rivas Berry %0.2 %Normal0.0-0.5The [facility] HospitalComment on above: Performed By: #### CBC #### [facility] [address] [address] [address] Rivas Corley #1.5 103/ulNormal1.2-3.8The [facility] HospitalComment on above:Performed By: #### CBC #### [facility] [address] [address] [address] Rivas Riverohocytes/100 WBC (Bld)34.9 %Wmfekb79.5-60.0The [facility] HospitalComment on above:Performed By: #### CBC #### [facility] [address] [place] [address] Dr. Rivas Posey DIFF REQNONormalThe [facility] HospitalComment on above: Performed By: #### CBC #### [facility] [address] [place] [address] Dr. Rivas Cristina (RBC) [Entitic mass]30.2 quKvncvq44.7-34.0The [facility] HospitalComment on above:Performed By: #### CBC #### [facility] [address] [place] [address] Dr. Rivas Cristina (RBC) [Mass/Vol]33.1 g/oCQaeakz91.9-35.2The [facility] HospitalComment on above:Performed By: #### CBC #### [facility] [address] [place] [address] Dr. Rivas Cristina (RBC) [Entitic vol]91.2 xLCngnfc96.0-99.0The [facility] HospitalComment on above:Performed By: #### CBC #### [facility] [address] [place] [address] Dr. Rivas Carlisle #0.3 103/ulNormal0.3-0.8The [facility] HospitalComment on above:Performed By: #### CBC #### [facility] [address] [place] [address] Dr. Rivas Martinesocytes/100 WBC (Bld)5.9 %Normal1.7-12.0The [facility] Comment on above:Performed By: #### CBC #### [facility] [address] [address] [address] Rivas Rivera #2.4 103/ulNormal1.4-6.5The [facility] HospitalComment on above:Performed By: #### CBC #### [facility] [address] [address] [address] Rivas Rasheedutrophils/100 WBC (Bld)54.9 %Sbepie95.0-75.0The [facility] HospitalComment on above:Performed By: #### CBC #### [facility] [address] [place] [address] Dr. Rivas Whytelet mean volume (Bld) [Entitic vol]11.9 fLNormal9.5-13.5The [facility] HospitalComment on above:Performed By: #### CBC #### [facility] [address] [place] [address] Dr. Rivas ZhaoPLT107 103/ulCritically wxz837-972Frv [facility] HospitalComment on above:Performed By: #### CBC #### [facility] [address] [place] [address] Dr. Rivas ZhaoRBC4.21 106/ulNormal4.20-5.40The [facility] HospitalComment on above:Performed By: #### CBC #### [facility] [address] [place] [address] Dr. Rivas ZhaoWBC4.4 103/ulNormal4.0-11.0The [facility] HospitalComment on above: Performed By: #### CBC #### [facility] [address] [place] [address] Dr. Rivas ZhaoGLYCOHEMOGLOBIN A1Con 81-68-6736PJK RECOMMENDATIONSEE BELOWNormal [facility] HospitalComsurgeons [facility] on above:Result Comment: ADA RECOMMENDED LIMIT 4.0 - 6.0 ADA THERAPEUTIC TARGET < 7.0 ACTION SUGGESTED > 7.0Performed By: #### A1C #### [facility] [address] [place] [address] Dr. Rivas ZhaoGlucose [Mass/Vol]117 mg/dLProMedica Toledo HospitalComment on above:Performed By: #### A1C #### [facility] [address] [address] [address] Rivas ZhaoHbA1c (Bld) [Mass fraction]5.7 %Normal4.5-6.2[facility] County HospitalComment on above:Performed By: #### A1C #### [facility] [address] [place] [address] Dr. Rivas ZapienID PROFILEon 79-65-0807YELA-HDL RATIO NORMSEE [facility]own HospitalComment on above:Result Comment: 3.3 - 4.4 LOW RISK 4.4 - 7.1 AVERAGE RISK 7.1 - 11.0 MODERATE RISK >11.0 HIGH RISKPerformed By: #### LIPID, CMP #### [facility] [address] [place] [address] Dr. Rivas ZhaoCholesterol [Mass/Vol]160 mg/dLNormal<=200The [facility] Comment on above:Performed By: #### LIPID, CMP #### [facility] [address] [address] [address] Rivas Levyesterol in HDL [Mass/Vol]49 mg/jGNqaope36-70SjnWood County HospitalComsurgeons choice medical center on above:Performed By: #### LIPID, CMP #### [facility] [address] [place] [address] Dr. Rivas ZhaoCholesterol in LDL [Mass/Vol]96.0 mg/dLProMedica Toledo HospitalComment on above:Performed By: #### LIPID, CMP #### [facility] [address] [place] [address] Dr. Rivas Lveyestersung.total/Cholesterol in HDL [Mass ratio]3.3 {ratio} NormalThe [facility] HospitalComment on above:Performed By: #### LIPID, CMP #### [facility] [address] [place] [address] Dr. Rivas ZhaoHDL NORMAL> or = 60 mg/dl - LOW CARDIOVASCULAR RISK <40 mg/dl - HIGH CARDIOVASCULAR RISKProMedica Toledo HospitalComment on above:Performed By: #### LIPID, CMP #### [facility] [address] [place] [address] Dr. Rivas Fox CALC NORMALSEE BELOWProMedica Toledo HospitalComment on above:Result Comment: <100 mg/dl OPTIMAL 100 - 129 mg/dl NEAR OR ABOVE OPTIMAL 130 - 159 mg/dl BORDERLINE HIGH 160 - 189 mg/dl HIGH >190 mg/dl VERY HIGH Performed By: #### LIPID, CMP #### [facility] [address] [address] [address] Rivas ZhaoTriglyceride [Mass/Vol]75 mg/dLNormal<=150The [facility] Comment on above:Performed By: #### LIPID, CMP #### [facility] [address] [place] [address] Dr. Rivas ChampionLDL CALC15.0 mg/dLNoKettering Health – Soin Medical CenterComment on above: Performed By: #### LIPID, CMP #### [facility] [address] [place] [address] Dr. Rivas ZhaoPROF 14(COMP METB)on 40-84-9731Naffehm [Mass/Vol]3.0 g/dL Critically low3.4-5.0The [facility] HospitalComsurgeons choice medical center on above:Performed By: #### LIPID, CMP #### [facility] [address] [place] [address] Dr. Rivas ZhaoAlbumin/Globulin [Mass ratio]0.6 {ratio}NormalThe [facility] HospitalComment on above:Performed By: #### LIPID, CMP #### [facility] [address] [place] [address] Dr. Rivas Mercado [Catalytic activity/Vol]74 U/GVzveji32-407Dsk [facility] on above:Performed By: #### LIPID, CMP #### [facility] [address] [place] [address] Dr. Rivas Lieberman [Catalytic activity/Vol]59 U/AHlosym73-99Pgr [facility] on above:Performed By: #### LIPID, CMP #### [facility] [address] [address] [address] Rivas Tuckeron gap [Moles/Vol]9.2 mmol/LNormalThe [facility] HospitalComment on above:Performed By: #### LIPID, CMP #### [facility] [address] [address] [address] Rivas ZhaoAST [Catalytic activity/Vol]65 U/LCritically ofjj25-22Qxh [facility] HospitalComment on above:Performed By: #### LIPID, CMP #### [facility] [address] [address] [address] Rivas ZhaoBilirubin [Mass/Vol]1.1 mg/dLCritically high0.2-1.0The [facility] HospitalComment on above:Performed By: #### LIPID, CMP #### [facility] [address] [address] [address] Rivas ZhaoCalcium [Mass/Vol]8.8 mg/dLNormal8.5-10.1The [facility] Comment on above:Performed By: #### LIPID, CMP #### [facility] [address] [address] [address] Rivas hZaoChloride [Moles/Vol]102 mmol/AGpwwyp35-006Jkx [facility] Comment on above:Performed By: #### LIPID, CMP #### [facility] [address] [address] [address] Rivas ZhaoCO2 [Moles/Vol]32.5 mmol/LCritically high21.0-32.0The [facility] HospitalComment on above:Performed By: #### LIPID, CMP #### [facility] [address] [address] [address] Rivas ZhaoCreatinine [Mass/Vol]0.76 mg/dLNormal0.55-1.02The [facility] HospitalComment on above:Performed By: #### LIPID, CMP #### [facility] [address] [address] [address] Rivas DcGFR-AF MONEGASQUE>60Normal>=60The [facility]iela HospitalComment on above:Performed By: #### LIPID, CMP #### [facility] [address] [address] [address] Rivas Bee-NON AF MONEGASQUE>60Normal>=60The [facility] HospitalComment on above:Performed By: #### LIPID, CMP #### [facility] [address] [address] [address] Rivas ZhaoGlobulin (S) [Mass/Vol]4.7 g/dLNormalThe [facility] HospitalComment on above:Performed By: #### LIPID, CMP #### [facility] [address] [address] [address] Rivas ZhaoGlucose [Mass/Vol]109 mg/dLCritically irjr13-170Duk [facility] HospitalComment on above:Performed By: #### LIPID, CMP #### [facility] [address] [address] [address] Rivas ZhaoPotassium [Moles/Vol]3.7 mmol/LNormal3.5-5.1[facility] Comment on above:Performed By: #### LIPID, CMP #### [facility] [address] [address] [address] Rivas ZhaoProtein [Mass/Vol]7.7 g/dLNormal6.4-8.2The [facility] Comment on above:Performed By: #### LIPID, CMP #### [facility] [address] [address] [address] Rivas ZhaoSodium [Moles/Vol]140 mmol/VYhruix396-393LveWood County Hospital Comment on above:Performed By: #### LIPID, CMP #### [facility] [address] [address] [address] Rivas ZhaoUrea nitrogen [Mass/Vol]12.0 mg/dLNormal7.0-18.0The [facility] HospitalComment on above:Performed By: #### LIPID, CMP #### [facility] [address] [address] [address] Rivas ZhaoUrea nitrogen/Creatinine [Mass ratio]15.8 mg/mgNormalThe Trenton HospitalComment on above:Performed By: #### LIPID, CMP #### [facility] [address] [address] [address] Rivas ZhaoPatient Correspondenceon [id number] Correspondence [id number]#1.00CD:127[facility] HospitalPhys[facility] [id number]#1.00CD:127NormAultman Alliance Community HospitalPatient Correspondence [id number]#1.00CD:[address] [place], [place] [address]Physician Referralon 12-39-7875Gqzwfadny Referral [id number]#1.00CD:[address] [place], [place] [address]MG MAMM DIAGNOSTIC 3D GREG CADon 57-91-4382NR MAMM DIAGNOSTIC 3D GREG CAD Patient: FERN CARDOSO Exam Date: 05/16/2021 : 1960 Gender:F Ordering : DR SINDI BENJAMIN M.D. Admission #: [id number] Family : Order #: [id number] CLICK HERE TO VIEW EXAM RADIOLOGY REPORT [...] breast cancer at age 59. LOCATION: The [facility] BREAST COMPOSITION: Scattered areas fibroglandular density. [...] by: Calin Contreras M.D. on 05/16/2021 at 15:27[facility] HospitalUS BREAST GREG LIMITEDon 22-70-4272DK BREAST GREG LIMITEDPatient: FERN CARDOSO Exam Date: 05/16/2021 : 1960 Gender:F Ordering : DR SINDI BENJAMIN M.D. Admission #: [id number] Family : Order #: [id number] CLICK HERE TO VIEW EXAM RADIOLOGY REPORT [...] breast cancer at age 59. LOCATION: The [facility] BREAST COMPOSITION: Scattered areas fibroglandular density. [...] by: Calin Contreras M.D. on 05/16/2021 at 15:27[facility] HospitalTRANSGLUTAMINASE IGAon 74-58-7695y-Transglutaminase (tTG) IgA<1Pspyws0-0 [facility] HospitalComment on above:Result Comment: Negative 0 - 3 Weak Positive 4 - 10 Positive >10 . Tissue Transglutaminase (tTG) has been identified as the endomysial antigen. Studies have demonstr- ated that endomysial IgA antibodies have over 99% specificity for gluten sensitive enteropathy.Performed By: #### TRANIGA #### [facility] [address] [place] [address] Dr. Rivas Garza AUTO DIFFon [id number] #0.1 103/ulNormal0.0-0.1[facility] HospitalComment on above:Performed By: #### CBC #### [facility] [address] [place] [address] Dr. Rivas ZhaoBasophils/100 WBC (Bld)0.9 %Normal0.2-2.0[facility] Comment on above:Performed By: #### CBC #### [facility] [address] [place] [address] Dr. Rivas Peter #0.2 103/ulNormal0.0-0.7The [facility] HospitalComment on above: Performed By: #### CBC #### [facility] [address] [place] [address] Dr. Rivas Dcosinophils/100 WBC (Bld)2.3 %Normal0.9-7.0The [facility] Comment on above:Performed By: #### CBC #### [facility] [address] [place] [address] Dr. Rivas Dcrythrocyte distribution width (RBC) [Ratio]14.5 %Hgkflu75.0-15.0 [facility] HospitalComment on above:Performed By: #### CBC #### [facility] [address] [place] [address] Dr. Rivas ZhaoHematocrit (Bld) [Volume fraction]39.9 %Prbdga08.0-48.0The [facility] HospitalComment on above:Performed By: #### CBC #### [facility] [address] [place] [address] Dr. Rivas ZhaoHemoglobin (Bld) [Mass/Vol]13.1 g/kDKeumgn96.0-16.0The [facility] HospitalComment on above:Performed By: #### CBC #### [facility] [address] [place] [address] Dr. Rivas Berry #0.02 10e3/ulNormal0.00-0.03The [facility] HospitalComment on above:Performed By: #### CBC #### [facility] [address] [place] [address] Dr. Rivas Berry %0.3 %Normal0.0-0.5The [facility] HospitalComment on above: Performed By: #### CBC #### [facility] [address] [place] [address] Dr. Rivas Corley #2.2 103/ulNormal1.2-3.8The [facility] HospitalComment on above:Performed By: #### CBC #### [facility] [address] [place] [address] Dr. Rivas Riverohocytes/100 WBC (Bld)31.8 %Ubenlu86.5-60.0[facility] HospitalComment on above:Performed By: #### CBC #### [facility] [address] [place] [address] Dr. Yilan ChangMANUAL DIFF REQNONormalThe [facility] HospitalComment on above: Performed By: #### CBC #### [facility] [address] [place] [address] Dr. Rivas Cristina (RBC) [Entitic mass]30.2 gaUokifm38.7-34.0The [facility] HospitalComment on above:Performed By: #### CBC #### [facility] [address] [place] [address] Dr. Rivas Cristina (RBC) [Mass/Vol]32.8 g/uRIyacdz60.9-35.2The [facility] HospitalComment on above:Performed By: #### CBC #### [facility] [address] [place] [address] Dr. Rivas Cristina (RBC) [Entitic vol]91.9 cECiimbg28.0-99.0The [facility] HospitalComment on above:Performed By: #### CBC #### [facility] [address] [place] [address] Dr. Rivas Carlisle #0.5 103/ulNormal0.3-0.8The [facility] HospitalComment on above:Performed By: #### CBC #### [facility] [address] [place] [address] Dr. Rivas Martinesocytes/100 WBC (Bld)7.2 %Normal1.7-12.0The [facility] Comment on above:Performed By: #### CBC #### [facility] [address] [place] [address] Dr. Rivas Rivera #4.0 103/ulNormal1.4-6.5The [facility] HospitalComment on above:Performed By: #### CBC #### [facility] [address] [place] [address] Dr. Rivas Rasheedutrophils/100 WBC (Bld)57.5 %Tcaark29.0-75.0The [facility] HospitalComment on above:Performed By: #### CBC #### [facility] [address] [place] [address] Dr. Yilan ChangPlatelet mean volume (Bld) [Entitic vol]11.8 fLNormal9.5-13.5The [facility] HospitalComment on above:Performed By: #### CBC #### [facility] [address] [place] [address] Dr. Rivas ZhaoPLT139 103/ulCritically wng888-251Mzz [facility] HospitalComment on above:Performed By: #### CBC #### [facility] [address] [place] [address] Dr. Rivas ZhaoRBC4.34 106/ulNormal4.20-5.40The [facility] HospitalComment on above:Performed By: #### CBC #### [facility] [address] [place] [address] Dr. Rivas ZhaoWBC7.0 103/ulNormal4.0-11.0The [facility] HospitalComment on above: Performed By: #### CBC #### [facility] [address] [place] [address] Dr. Rivas ZapienASEon 89-79-0858Ksiopc [Catalytic activity/Vol]197.0 U/LNormal 23.0-300.0The [facility] HospitalComment on above:Performed By: #### CMP, LIPA #### [facility] [address] [place] [address] Dr. Rivas ZhaoPROF 14(COMP METB)on 13-38-9577Gsnzgmi [Mass/Vol]3.6 g/dLNormal 3.5-5.0The [facility] HospitalComment on above:Performed By: #### CMP, LIPA #### [facility] [address] [place] [address] Dr. Rivas ZhaoAlbumin/Globulin [Mass ratio]0.9 {ratio}NormalThe [facility] HospitalComment on above:Performed By: #### CMP, LIPA #### [facility] [address] [place] [address] Dr. Rivas ZhaoALP [Catalytic activity/Vol]46 U/FTpucsh69-586Wfj [facility] HospitalComment on above:Performed By: #### CMP, LIPA #### [facility] [address] [address] [address] Rivas HarleyT [Catalytic activity/Vol]77 U/LCritically high9-52The [facility] HospitalComment on above:Performed By: #### CMP, LIPA #### [facility] [address] [address] [address] Rivas ZhaoAnion gap [Moles/Vol]13.9 mmol/LNormalThe [facility] Comment on above:Performed By: #### CMP, LIPA #### [facility] [address] [address] [address] Rivas ZhaoAST [Catalytic activity/Vol]67 U/LCritically ekty32-05Jcp [facility] HospitalComment on above:Performed By: #### CMP, LIPA #### [facility] [address] [place] [address] Dr. Rivas ZhaoBilirubin [Mass/Vol]0.7 mg/dLNormal0.2-1.3TWright[facility]Patterson [facility] Comment on above:Performed By: #### CMP, LIPA #### [facility] [address] [address] [address] Rivas ZhaoCalcium [Mass/Vol]9.8 mg/dLNormal8.4-10.2[facility] Comment on above:Performed By: #### CMP, LIPA #### [facility] [address] [address] [address] Rivas ZhaoChloride [Moles/Vol]103 mmol/CIzzadl07-503Njr [facility] Comment on above:Performed By: #### CMP, LIPA #### [facility] [address] [address] [address] Rivas ZhaoCO2 [Moles/Vol]31.0 mmol/LCritically high22.0-30.0The [facility] HospitalComment on above:Performed By: #### CMP, LIPA #### [facility] [address] [address] [address] Rivas ZhaoCreatinine [Mass/Vol]0.95 mg/dLNormal0.52-1.04[facility] HospitalComment on above:Performed By: #### CMP, LIPA #### [facility] [address] [place] [address] Dr. Rivas DcGFR-AF PUVYZCLL50 mL/min/1.40t4Sjtkkm>=60[facility] Comment on above:Performed By: #### CMP, LIPA #### [facility] [address] [place] [address] Dr. Rivas DcGFR-NON AF MONEGASQUE=60Normal>=60[facility] HospitalComment on above:Performed By: #### CMP, LIPA #### [facility] [address] [place] [address] Dr. Rivas ZhaoGlobulin (S) [Mass/Vol]4.2 g/dLNormalThSamaritan HospitalComment on above:Performed By: #### CMP, LIPA #### [facility] [address] [place] [address] Dr. Rivas ZhaoGlucose [Mass/Vol]95 mg/pOCgfmhy82-274VmzWood [facility] Hospital Comment on above:Performed By: #### CMP, LIPA #### [facility] [address] [place] [address] Dr. Rivas ZhaoPotassium [Moles/Vol]3.9 mmol/LNormal3.4-5.0[facility] Comment on above:Performed By: #### CMP, LIPA #### [facility] [address] [place] [address] Dr. Rivas ZhaoProtein [Mass/Vol]7.8 g/dLNormal6.1-8.2[facility] Comment on above:Performed By: #### CMP, LIPA #### [facility] [address] [place] [address] Dr. Rivas ZhaoSodium [Moles/Vol]144 mmol/TYytvsk158-965DteWood County Hospital Comment on above:Performed By: #### CMP, LIPA #### [facility] [address] [place] [address] Dr. Rivas ZhaoUrea nitrogen [Mass/Vol]20.0 mg/dLCritically high7.0-17.0[facility] HospitalComment on above:Performed By: #### CMP, LIPA #### [facility] [address] [place], [place] [address] Dr. Rivas Hicks nitrogen/Creatinine [Mass ratio]21.1 mg/mgNormalThe [facility] HospitalComment on above:Performed By: #### CMP, LIPA #### [facility] [address] [place], [place] [address] Dr. Rivas ZhaoXR ribs RT min 3V w CXR1V*on 41-03-7153BW ribs RT min 3V w CXR1V* [facility] [place] [address] [place] [address] XRay Report Signed Patient: Fern Cardoso MR#: [id number] : 1960 Acct:[id number] Age/Sex: 59 / F ADM Date: 06/09/20 Loc: XDUCLY Room: Type: [facility] Attending Dr: Janene Munguia APRN, FIELD APPLICATIONS SPECIALIST-C Ordering Provider: Janene Munguia APRN Date of [...] Garcia Jr., M.D.06/09/2020 11:19 AM Dictation Location: [address] By: JOSÉ LUIS 06/09/20 1119 Dictated By: Que Garcia Jr, MD 06/09/20 1112 Signed By: 06/09/20 1119NoProMedica [facility] Vital Signs Date TimeVital SignValuePerforming LroflojycIhpqxvnj40-08-5329 10:49-0400Body .1 cmNicholas Brown DPM Work Phone: [phone] [place], [place] [address]Isbcufbfqq68-83-9590 10:49-0400Body mass index (BMI) [Ratio]57.91 kg/m9Eonxjwtm Brown DPM Work Phone: [phone] [place], [place] [address]Avocgybjpa31-90-3398 10:49-0400Body egzjub187.85 kgNicholas Brown DPM Work Phone: [facility] SystemQzrcymaaqh22-96-8497 10:49-0400Respiratory rate18 /minNicholas Brown DPM Work Phone: [phone] [place], [place] [address]Kfcjywrrof09-28-9104 10:37-0400Body uluciw862.1 cmNicholas Brown DPM Work Phone: [facility] SystemNzyeotdndf90-16-0480 10:37-0400Body mass index (BMI) [Ratio]57.91 kg/p3Lsmchylk Brown DPM Work Phone: [facility] SystemMuvnvrtlte59-14-1449 10:37-0400Body ixuzhk233.85 kgNicholas Brown DPM Work Phone: [phone] [place], [place] [address]Fjvcrlrznp34-81-3413 10:37-0400Respiratory rate18 /minNicholas Brown DPM Work Phone: [facility] SystemWurlyiubyu56-36-6991 10:00-0400Body bnermh557.1 [facility]10-[facility]-20[facility] 10:00-0400Body mass index (BMI) [Ratio]57 kg/f1ZtwlhcgvxMarion Hospital10-28-2024 10:00-0400Body weight 155.58 kgMarion Hospital10-28-2024 10:00-0400Diastolic blood mm[Hg][facility]10-28-2024 10:00-0400Heart rate74 /[facility]10-28-2024 10:00-0400Systolic blood afidqkln783 mm[Hg][facility]10-07-2024 10:10-0400Body ssjrex481.1 cmMar[facility]10-07-2024 10:10-0400Body mass index (BMI) [Ratio]56.3 kg/k1IkgwrenjnMarion Hospital10-07-2024 10:10-0400Body udifsf512.54 kgMar[facility]10-07-2024 10:10-0400Diastolic blood oyycidye35 mm[Hg][facility] 01-24-2024 10:10-0400Heart rate71 /[facility] 01-24-2024 10:10-0400Respiratory rate18 /[facility] 01-24-2024 10:10-7957MlJ6% (BldA) [Mass fraction]98 %[facility]10-07-2024 10:10-0400Systolic blood rvonxpbh257 mm[Hg][facility]08-29-2024 11:29-0400Body jjsjeo207.1 cmMar[facility]08-29-2024 11:29-0400Body mass index (BMI) [Ratio]55 kg/h0MkrkzwjazMarion Hospital08-29-2024 11:29-0400Body .13 kgMar[facility] Hospital08-29-2024 11:29-0400Diastolic blood rzoiqcah74 mm[Hg] [facility]08-29-2024 11:29-0400Heart rate69 /[facility]08-29-2024 11:29-0400Systolic blood flshfipj88 mm[Hg] [facility]06-27-2024 09:39-0400Body .1 cm [facility]06-27-2024 09:39-0400Body mass index (BMI) [Ratio]54.6 kg/i0AiqfepigqMarion Hospital06-27-2024 09:39-0400Body iusilzfujzy88.4 [degF][facility]06-27-2024 09:39-0400Body tutolf116.89 kgMar[facility]06-27-2024 09:39-0400Diastolic blood aeezfdnm83 mm[Hg][facility]06-27-2024 09:39-0400 Heart rate71 /[facility]06-27-2024 09:39-0400 Respiratory rate18 /[facility]06-27-2024 09:39-0400 SaO2% (BldA) [Mass fraction]97 %[facility]06-27-2024 09:39-0400Systolic blood wuqihcqh695 mm[Hg][facility] 08-12-2023 11:04-0400Body uorwfm242.1 cmMar[facility] 08-12-2023 11:04-0400Body mass index (BMI) [Ratio]55.2 kg/g7BrfqihhnpMarion Hospital04-25-2024 11:04-0400Body fermvu253.59 kgMar[facility] Hospital04-25-2024 11:04-0400Diastolic blood lgawuoou28 mm[Hg][facility]04-25-2024 11:04-0400Heart rate67 /[facility]04-25-2024 11:04-0400Systolic blood ewhjyqvm387 mm[Hg][facility]03-04-2024 15:41-0500Body wbiwit565.1 cmMar[facility]03-04-2024 15:41-0500Body mass index (BMI) [Ratio]54.1 kg/n4SdnxsgtuwMarion Hospital03-04-2024 15:41-0500Body iztckd859.64 kg [facility]03-04-2024 15:41-0500Diastolic blood abtfxmtf75 mm[Hg][facility]03-04-2024 15:41-0500Heart rate67 /min [facility]03-04-2024 15:41-2379JzR2% (BldA) [Mass fraction]97 %[facility]03-04-2024 15:41-0500Systolic blood jmpdywyz939 mm[Hg][facility]01-26-2024 09:30-0500 Body tyanxf474.1 cmIsalei Sourav Other [employer] Other 01-26-2024 09:30-0500Body mass index (BMI) [Ratio] 57.24 kg/w4Plulnt Sourav Other [employer] Other 01-26-2024 09:30-0500Body kzfhco110.04 kgSindi Sourav Other [employer] Other 01-26-2024 09:30-0500Diastolic blood uzhfbgku31 mm[Hg] Sindi Benjamin Other [employer] Other 01-26-2024 09:30-7343KnZ4% (BldA) [Mass fraction]97 % Sindi Benjamin Other [employer] Other 01-26-2024 09:30-0500Systolic blood exyfbzxy530 mm[Hg] Sindi Benjamin Other [employer] Other 11-17-2023 16:00-0500Body uferry096.1 cmAaleshia Gordon Other [employer] Other 11-17-2023 16:00-0500Body mass index (BMI) [Ratio] 60.27 kg/w2ElvdoEtta Gordon Other [employer] Other 11-17-2023 16:00-0500Body lgnyrungyhm61.9 [degF]Etta Gordon Other [employer] Other 11-17-2023 16:00-0500Body .29 kgEtta Gordon Other [facility] [employer] Other 11-17-2023 16:00-0500Diastolic blood qygmwmbj77 mm[Hg] Etta Gordon Other [employer] Other 11-17-2023 16:00-0500Respiratory rate18 /minEtta Gordon Other [employer] Other 11-17-2023 16:00-8891LrQ6% (BldA) [Mass fraction]95 % Etta Gordon Other [facility] [employer] Other 11-17-2023 16:00-0500Systolic blood koiwzorl375 mm[Hg] Etta Gordon Other [facility] [employer] Other Encounters Encounter DateEncounter TypeCare ProviderFacilityStart: 02-20-2025 End: 97-56-0251hppwyksvolKPTGAkron Children's Hospitaltart: 01-16-2025 End: 07-50-8309enlkfvapgaUtdcftBinh Pickard MDFacility:[facility] Start: 01-16-2025 End: 23-57-1994hydmajuwthRejbgaBinh Pickard MDFacility:[facility] [place]Start: 76-25-1035oecttzuwwoGHXMBlanchard Valley Health Systemtart: 12-14-2024 End: 96-78-5745Mfirfo flowsUnique Reno DPM Work Phone: noMS CI PODIATRYStart: 12-14-2024 End: 45-02-4290Dfcgiw flowsUnique Reno DPM Work Phone: noms CI PODIATRYStart: 12-14-2024 End: 07-59-7334Knvdrcc encounter procedureEsequiel Reno DPM Work Phone: noms CI PODIATRYComment on above:Hallux rigidus of left foot (Primary Dx); Hallux rigidus of right foot; Diabetes mellitus due to underlying condition with diabetic polyneuropathy, unspecified whether shelter insulin use (HCC); Pain due to onychomycosis of toenails of both feet; Venous insufficiencyStart: 12-14-2024 End: 26-22-2943shcfwnfbhdJUPXFWIT A BROWNNot AvailableStart: 12-06-2024 ambulatoryBlanchard Valley Health Systemtart: 12-05-2024 End: 33-53-8860Fhmpfm flowsheetSammantha Aaron PTNOMS [facility] Start: 12-05-2024 End: 63-97-1318Cpqxrp flowsheetSammantha Aaron PTNOMS [facility] Start: 12-05-2024 End: 42-91-4567zhvpwhciemBmmrpahtw Aaron PTMS [facility] Comment on above:Cervicalgia (Primary Dx)Start: 11-29-2024 End: 48-35-4701ekjghpsrzlPMLHFLO [facility] Hospitaltart: 38-23-7147kiydmbcouqOTFYAkron Children's Hospitaltart: 74-94-2478ceeaszthliJLKHAkron Children's Hospitaltart: 10-05-2024 End: 73-55-4495Bjwkfz Niki Reno DPM Work Phone: noMS CI PODIATRYStart: 10-05-2024 End: 21-70-6337Iklrqlambrocio Reno DPM Work Phone: noMS CI PODIATRYStart: 10-05-2024 End: 19-53-0049Oxjfhp outpatient new 30 minutesEsequiel Reno DPM Work Phone: noms CI PODIATRYComment on above:Hallux rigidus of left foot (Primary Dx); Hallux rigidus of right foot; Diabetes mellitus due to underlying condition with diabetic polyneuropathy, 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); Pain due to onychomycosis of toenails of both feet; Venous insufficiencyStart: 10-05-2024 End: 63-80-6103krjxcdadweEFFZXBSX A BROWNNot AvailableStart: 08-28-2024 ambulatoryBlanchard Valley Health Systemtart: 07-07-2024 ambulatoryBlanchard Valley Health Systemtart: 06-09-2024 End: 67-75-5219cwvbofmoclBWQC SNIDERUnGalion Hospitaltart: 22-84-5718qzkhbljhazVUHLMercy Health Allen Hospitaltart: 90-88-2576nrxbjohjvsGHWSBlanchard Valley Health Systemtart: 62-45-7495ofpkvnxkixSEZWMercy Health Allen Hospitaltart: 21-22-6386jbgfrodddhUPHJMercy Health Allen Hospitaltart: 54-83-8265ozdrxcvgpuJSXGMercy Health Allen Hospitaltart: 02-14-2024 End: 68-22-1391moqbmukkbzQeteeciluWilson Memorial Hospital Work Phone: Start: 02-14-2024 End: 23-30-8879Ldtrkwl encounter procedureAdia Physician [facility] Work Phone: Start: 01-24-2024 End: 16-95-3904hmkmomshxtKcasqckkxWilson Memorial Hospital Work Phone: Start: 01-24-2024 End: 06-32-8971Jkxuops encounter procedureFirelands Physician [facility] Work Phone: Start: 91-75-5001Kmw-patient / Non-visitFirwahpetons Physician Group-[facility] Work Phone: Start: 12-16-2023 End: 08-25-0211yiujpzopulFmawvxoamWilson Memorial Hospital Work Phone: Start: 12-16-2023 End: 51-37-2069Vuisdci encounter procedureMerrywahpetons Physician Group-[facility] Work Phone: Start: 72-42-5495Gxr-patient / Non-visitFirwahpetons Physician Group-[facility] Work Phone: Start: 10-14-2023 End: 81-76-4842umwgfkwipjIscxpmttcThe [facility] Work Phone: Start: 10-14-2023 End: 18-17-3368Hopwzpj encounter procedureNov[facility] Work Phone: Start: 92-57-9528Xhy-patient / Non-visitFirwahpetons Physician Group-[facility] Work Phone: Start: 70-21-0402Yxrouro encounter statusBethesda North Hospitaltart: 08-12-2023 End: 40-84-5922dfgzhynzntUakcudffgThe [facility] Work Phone: Start: 08-12-2023 End: 31-36-2423Mdtziycmi for general adult medical examination without abnormal findingsBethesda North Hospitaltart: 08-12-2023 End: 81-48-0760Zmvskjs encounter procedureNovant Health [facility] Work Phone: Start: 83-92-1490Fmx-patient / Non-visitNovant Health [facility] Work Phone: Start: 06-21-2023 End: 73-62-4813Lfawhrn encounter procedureNovant Health [facility] Work Phone: Start: 05-31-2023 End: 93-91-1555nkgfkxwqxfZyxdv Evan Other [facility] [employer] Other Start: 52-87-0905Xwzgbybww encounterAmber YulianaG [facility] Budatart: 05-21-2023 End: 44-65-7669pnlzzrkrlkQpboma Braun Other [facility] [employer] Other Start: 99-03-8130Iemllxxpk encounterMarlei Pride [facility] ClinicStart: 21-21-7660Rrwdipe encounter procedureFirkobe Physician Group-Start: 05-14-2023 End: 61-41-8430ntjoklajysEtvmbn Benjamin Other [employer] Other Start: 43-56-2552Zrwalq outpatient visit 25 minutes [facility]Start: [facility]2023 End: 40-60-5130laxhpktduzCjbxbq Benjamin Other [employer]TRA Other Start: 94-85-8429Qayccfqfl encounterMarlei [facility] ClinicStart: 04-01-2023 End: 66-75-2198jgjkkaczpqVqqzms Braun Other noTRA Other Start: 90-52-1473Klepenbjd encounterMarlei [facility] ClinicStart: 03-05-2023 End: 98-13-4870zbkxvaakiuWqgca Keller Other noTRA Other Start: 49-80-5798Zaftst outpatient visit 25 minutes Etta GordonMOUNT [facility] Care ClydeStart: 65-07-5932Lxknnytko for general adult medical examination without abnormal findingsDR SINDI [facility] Hospitaltart: 02-21-2022 End: 46-11-9442npsmkguyxmEK MARCIA E BRAUNFacility:L5Jfgck: 02-21-2022 End: 72-41-6178Eazffwysz for general adult medical examination without abnormal findingsDR SINDI BENJAMINFacility:E3Kqvhl: 76-54-8727Rrztj health examination Etta Gordon Other noTRA Other Start: 05-16-2021 End: 89-46-7907nuaqbukjwyBS MARCIA E BRAUNFacility:D3Dxzla: 03-31-2021 End: 56-41-5419qwszmqenmqDK SINDI Torres SOURAVFacility:B5Rymko: 36-55-2997Pqdboeq encounter procedureMicvalentina WhitesideFacility:9844 Procedures DateProcedureProcedure DetailPerforming ClinicianStart: 24-55-1606Cckbgi-up visitFollow-upPAUL CHACKOStart: 96-35-9872CpyuopmqaunspegpYxxtxlw LysterStart: 97-49-8856Nue-surgery evaluationEtta Gordon Other Start: 93-02-5343Zasxnea examination of patientEtta Gordon Other Start: 67-05-3851Tzydfotq mellitus screeningEtta Gordon Other Start: 75-40-5246Jbytkmpzt mammographyEtta Gordon Other Start: 94-65-0941Qnwhlxz and physical examination, administrativeEtta Gordon Other Start: 39-32-6791Dztbyovafdgm cardiovascular examinationEtta Gordon Other Laboratory test result abnormalEtta Gordon Other Screening for malignant neoplasm of breastEtta Gordon Other Plan of Treatment DateCare ActivityDetailAuthorStart: 12-21-2024 End: 29-06-8635vlcuypkuxu37/04/2025 12:30 PM EDT Treatment [facility] [address] [facility] [address] [place] [address] Aric Aaron PTNOMS [facility] Physical TherapyStart: 12-19-2024 End: 32-45-4476dzxiuwihrq02/02/2025 12:00 PM EDT Treatment [facility] [address] [facility] [address] [place] [address] Brian Hill PTANOMS [facility] Physical TherapyStart: 73-74-5257Hekeiygnx vaccination Influenza Vaccine (#1)[facility] HealthcareStart: 12-14-2024 End: 64-87-3308paygmmymcy52/28/2025 11:30 AM EDT Treatment [facility] [address] [facility] [address] [place] [address] Anabell Montague PTANOMS [facility] Physical TherapyStart: 12-14-2024 End: 71-71-2620Esmtglf encounter procedureNOMS CI PODIATRYComment on above: Hallux rigidus of left foot (Primary Dx); Hallux rigidus of right foot; Diabetes mellitus due to underlying condition with diabetic polyneuropathy, unspecified whether shelter insulin use (HCC); Pain due to onychomycosis of toenails of both feet; Venous insufficiencyStart: 12-11-2024 End: 45-33-4632getpifdxtj28/25/2025 2:30 PM EDT Treatment [facility] [address] [facility] [address] [place], [id number] Brian Hill PTANOMS [place] Physical TherapyStart: 12-07-2024 End: 94-90-9724sinrjjmjws00/21/2025 12:00 PM EDT Treatment [facility] [address] [facility] [address] [place] [address] Brian Hill PTANOMS [place] Physical TherapyStart: 12-05-2024 End: 66-88-3449cngabmrbfn43/19/2025 12:30 PM EDT Evaluation [facility] [address] [facility] [address] [place] [address] Aric Aaron, HOLLIE Cervicalgia (Primary Dx)[facility] Comment on above:Cervicalgia (Primary Dx)Start: 10-05-2024 End: 26-68-8244Czawuey encounter rwoyzdvji36/19/2025 10:20 AM EDT Office Visit [facility] [address] [facility] [address] [place] [address] Esequiel Reno DPM [address] [address] ArrivedNOMS CI PODIATRYComment on above:ArrivedStart: 07-91-9829Bueptsvdy for malignant neoplasm of breastMammogramNOMS Healthcare Start: 54-89-8599Lljnhhftg for malignant neoplasm of cervixNOMS HealthcareStart: 44-66-1696Cktudhmrv for malignant neoplasm of cervixPap SmearNOMS Healthcare Start: 50-80-7941Aoinbadmd for malignant neoplasm of colonNOMS HealthcareMG Breast - bilateral ScreeningMarion HospitalUS Lower extremity vein - rightMarion HospitalXR Lumbar spine 2 or 3 Views [facility] Immunizations Immunization DateImmunizationNotesCare XetndjewNhvqgthy92-69-8905ddvoimzin virus vaccine, unspecified formulationSammantha Aaron PTNODE Healthcare Payers DatePayer CategoryPayerPolicy [id number] Health InsuranceMOLINA MARKETPLACE Member Subscriber Plan / Payer (Effective 2024-Present) Name: Fern Cardoso Relation to Subscriber: Self Name: Fern Cardoso Payer ID: [id number] (NAIC) Group ID: Not on file Type: Not on file Address: [address] [id number] [id number] 2.1.639803.3.579.2.1068 [id number] ..1.312335.3.57[id number] 2..1.573854.3.57[id number] 2..1.782587.3.57[id number] 2.16.840.1.605452.3.57[id number] 2.16.840.1.196934.3.57[id number] 2.16.840.1.523732.3.57[id number] 2.16.840.1.613246.3.57[id number] 2.16.840.1.951501.3.57[id number] 2.16.840.1.043402.3.57[id number]-ohvQoyi Pay [id number] 2.840.1.594313.19 Social History DateTypeDetailFacilityUnknown if ever smokedS[place] [employer] Other Start: 92-15-3778Yai Assigned At [facility] [employer] Other Start: 07-07-2018 End: 22-49-1034Rbzjlpu smoking status NHISNever smoked tobacco (finding) [facility]tart: 17-79-2696Tab [facility]igned [facility] smoking status NHISTobacco smoking consumption unknownNOMS HealthcareStart: 09-70-3958Bxopwv identityIdentifies as female gender (finding)[facility] HealthcareStart: 49-02-0142Jqmvon orientation Heterosexual (finding)[facility] HealthcareStart: 15-25-1855Vxwsixp use and exposure Smokeless tobacco non-userNOMS HealthcareStart: 10-05-2024 End: 41-28-6248Bxpmjfzfu beverage intakeLifetime non-drinker (finding)[facility] HealthcareStart: 92-83-8727Ytgxkby of Social [facility] Medical Equipment Procedure CodeEquipment CodeEquipment Original TextEquipment IdentifierDates Arthroplasty, knee, total, minimally invasiveART SURF RT 14MM 6-9 C-D VEFDA Start: 28-30-5571Ovsaoxbbjrcn, knee, total, minimally invasiveCEMENT BONE 1X40 RADIOPAQUEFDAStart: 21-04-5532Kihpdvjoxrhn, knee, total, minimally invasive CEMENT BONE 1X40 RADIOPAQUEFDAStart: 60-67-8433Mllwbxdtlakj, knee, total, minimally invasiveEXTENSION STEM 14 X 30MMFDAStart: 51-83-7493Wuhougtozrxi, knee, total, minimally invasiveFEMUR PERSONA RIGHT SIZE 7FDAStart: 07-04-2018 Arthroplasty, knee, total, minimally invasivePATELLA PERSONA 32MM VIVACIT-EFDA Start: 52-50-7905Nfqubhbpfben, knee, total, minimally invasiveTIBIA PERSONA RIGHT SIZE DFDAStart: 46-94-4089Yosfdoyygnnx, knee, total, minimally invasiveART SURF RT 14MM 6-9 C-D VEFDAStart: 95-60-0571Virxcixmyglj, knee, total, minimally invasiveCEMENT BONE 1X40 RADIOPAQUEFDAStart: 59-50-2894Vakyexexqqiz, knee, total, minimally invasiveCEMENT BONE 1X40 RADIOPAQUEFDAStart: 07-04-2018 Arthroplasty, knee, total, minimally invasiveEXTENSION STEM 14 X 30MMFDAStart: 75-93-8525Znecpuintuxd, knee, total, minimally invasiveFEMUR PERSONA RIGHT SIZE 7FDAStart: 90-12-9185Sjgprttyjpdy, knee, total, minimally invasivePATELLA PERSONA 32MM VIVACIT-EFDAStart: 74-79-9433Vbjuuodtlamf, knee, total, minimally invasiveTIBIA PERSONA RIGHT SIZE DFDAStart: 26-44-5271Etzjgousrsxw, knee, total, minimally invasiveART SURF RT 14MM 6-9 C-D VEFDAStart: 34-99-6489Wsbjsqekvhje, knee, total, minimally invasiveCEMENT BONE 1X40 RADIOPAQUEFDAStart: 07-04-2018 Arthroplasty, knee, total, minimally invasiveCEMENT BONE 1X40 RADIOPAQUEFDA Start: 22-40-2765Rwdugchjscun, knee, total, minimally invasiveEXTENSION STEM 14 X 30MMFDAStart: 39-62-2594Oqtsincmchgr, knee, total, minimally invasiveFEMUR PERSONA RIGHT SIZE 7FDAStart: 21-62-6187Xmkucspfqcpc, knee, total, minimally invasivePATELLA PERSONA 32MM VIVACIT-EFDAStart: 80-22-6107Uafxyfkqqnnd, knee, total, minimally invasiveTIBIA PERSONA RIGHT SIZE DFDAStart: 07-04-2018 Arthroplasty, knee, total, minimally invasiveART SURF RT 14MM 6-9 C-D VEFDA Start: 15-16-8419Osizmdlidxpo, knee, total, minimally invasiveCEMENT BONE 1X40 RADIOPAQUEFDAStart: 25-79-7256Wgufiqtucycf, knee, total, minimally invasive CEMENT BONE 1X40 RADIOPAQUEFDAStart: 75-62-0293Yhdmreneebbe, knee, total, minimally invasiveEXTENSION STEM 14 X 30MMFDAStart: 90-45-9313Irsrhvtznsxv, knee, total, minimally invasiveFEMUR PERSONA RIGHT SIZE 7FDAStart: 07-04-2018 Arthroplasty, knee, total, minimally invasivePATELLA PERSONA 32MM VIVACIT-EFDA Start: 08-83-0795Ymxxevnzjbdu, knee, total, minimally invasiveTIBIA PERSONA RIGHT SIZE DFDAStart: 71-31-1173Bzzztckermxl, knee, total, minimally invasiveART SURF RT 14MM 6-9 C-D VEFDAStart: 10-51-8919Vkvcywnjsypt, knee, total, minimally invasiveCEMENT BONE 1X40 RADIOPAQUEFDAStart: 51-83-8556Lidotxgstchl, knee, total, minimally invasiveCEMENT BONE 1X40 RADIOPAQUEFDAStart: 07-04-2018 Arthroplasty, knee, total, minimally invasiveEXTENSION STEM 14 X 30MMFDAStart: 55-21-4096Uenenvrkjugi, knee, total, minimally invasiveFEMUR PERSONA RIGHT SIZE 7FDAStart: 59-51-7549Ycyarscdnptc, knee, total, minimally invasivePATELLA PERSONA 32MM VIVACIT-EFDAStart: 07-77-1358Tfiqeiahtgxh, knee, total, minimally invasiveTIBIA PERSONA RIGHT SIZE DFDAStart: 07-04-2018 Clinical Notes 10-22-2020 to 02-20-2025 Note Date & VisyNpzkTbffxcft26-99-6784 NoteUT Electrophysiology Consult Note Reason for visit: [...] diabetes obstructive sleep apnea was admitted to [facility] with shortness of breath and was [...] Intimate Partner Violence: Not At Risk (05/05/2023) [place] Safety & Environment Fear of Current or [...] Year: No Utilities: Not At Risk (05/05/2023) [facility] Utilities Threatened with loss of utilities: [...] meal. 180 tablet 3 (more content not included)...[facility]09-21-2025 Note Please let her know overall things look ok on her ECHO. Pumping function is low normal at 50-55%. No significant valve abnormalities. Continue current medictions and follow-up as scheduled with Dr. Cronin. Thanks![facility]08-28-2025 History of Present illness Narrative* Esequiel Reno, [...] Strain: Low Risk (05/05/2023) Received from [facility] Overall Financial Resource Strain (CARDIA) Difficulty of Paying Living Expenses: Not hard at all Food Insecurity: No Food Insecurity (05/05/2023) Received from [facility] Hunger Vital Sign Within the past 12 months, you worried that your food would run out before you got the money to buymore.: Never true Ran Out of Food in the Last Year: Not on file Transportation Needs: No Transportation Needs (05/05/2023) Received from [facility] Transportation In the past 12 months, has lack of transportation kept you from medical appointments or from getting medications?: No Lack of Transportation (Non-Medical): Not on file Physical Activity: Not on file Stress: Not on file Social Connections: Not on file Intimate Partner Violence: Unknown (05/05/2023) Received from [facility] Humiliation, Afraid, Rape, and Kick questionnaire Fear of Current or Ex-Partner: No Emotionally Abused: Not on file Physically Abused: Not on file Sexually Abused: Not on file Housing Stability: Low Risk (05/05/2023) Received from [facility] Housing Stability Vital Sign Unable [...] palpableDP and PT pedal pulses NEURO: 5.07 Upatoi Satish monofilament test intact to digits and [...] underlying condition with diabetic polyneuropathy, 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) 4. Pain due to [...] Ibuprofen Esequiel Reno DPM documented in this encounterSaint John's Health SystemVngbysclxx28-39-8033 History of Present illness Narrative* Aric Aaron, [...] happened toher neck. 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 Precautions: bilateral TKA, universal [...] Please sign below. Date: documented in this encounterSaint John's Health SystemYoddvrjpqo22-17-7819 NoteCardiovascular Medicine [facility] SUBJECTIVE Chief Complaint Patient presents with [...] She feels dizziness. Per Dr. Cronin: HPI: Fren Cardoso is a 62 y.o. year old with past medical history of hypertension diabetes obstructive sleep apnea was admitted to [facility] with shortness of breath and was [...] (BMI) of 50.0 to 59.9 in adult ([facility]) Postoperative pain Status post total right knee replacement Thrombocytopenia RAVI (obstructive sleep apnea) Overactive bladder Screening mammogram for breast cancer Type 2 diabetes mellitus with hyperglycemia ([facility]) PONV (postoperative nausea and vomiting) Lumbar back pain Right leg swelling Takes dietary supplements Type 2 diabetes mellitus, without long-term current use of insulin ([facility]) Past Medical History: Diagnosis Date Abnormal ECG Acute kidney injury Arrhythmia Atrial fibrillation ([facility]) Atrial fibrillation ([facility]) CHF (congestive heart failure) ([facility]) Diabetes mellitus ([facility]) DVT (deep venous thrombosis) ([facility]) Hypertension Obesity BMI 55/58 PONV [...] (6.25 mg) by mouth (more content not included)...[facility]08-13-2025 Note Patient is here today for a [...] for irregular heartbeat (occasional racing heart while sitting).[facility]06-19-2025 History of Present illness Narrative* Esequiel Reno, [...] Strain: Low Risk (05/05/2023) Received from [facility] Overall Financial Resource Strain (CARDIA) Difficulty of Paying Living Expenses: Not hard at all Food Insecurity: No Food Insecurity (05/05/2023) Received from [facility] Hunger Vital Sign Within the past 12 months, you worried that your food would run out before you got the money to buymore.: Never true Ran Out of Food in the Last Year: Not on file Transportation Needs: No Transportation Needs (05/05/2023) Received from [facility] Transportation In the past 12 months, has lack of transportation kept you from medical appointments or from getting medications?: No Lack of Transportation (Non-Medical): Not on file Physical Activity: Not on file Stress: Not on file Social Connections: Not on file Intimate Partner Violence: Unknown (05/05/2023) Received from [facility] Humiliation, Afraid, Rape, and Kick questionnaire Fear of Current or Ex-Partner: No Emotionally Abused: Not on file Physically Abused: Not on file Sexually Abused: Not on file Housing Stability: Low Risk (05/05/2023) Received from [facility] Housing Stability Vital Sign Unable [...] palpableDP and PT pedal pulses NEURO: 5.07 Upatoi Satish monofilament test intact to digits and [...] underlying condition with diabetic polyneuropathy, 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) 4. Pain due to [...] edema. Discussed condition in detail. Recommendation for dffw-gsc-ubryzxu compression stockings at this time and may consider prescription stockings in the future. Discussed hallux rigidus condition and arthritis to the great toe joints and becomes worse may consider possible further treatment Patient to continue with oral anti - inflammatories as needed for pain and recommended OTC medications such as tylenol or Ibuprofen Esequiel Reno DPM documented in this encounterSaint John's Health SystemVcjpnknutu01-34-1232 NoteSUBJECTIVE Reason for Visit: Fern Cardoso is a 63 y.o. year old female patient being seen for 4-month follow-up visit. HPI: Fern Cardoso is a 62-year-old with a medical history of hypertension, diabetes, A-fib/flutter, and obstructive sleep apnea who was admitted to [facility] in April 2023 for with shortness [...] dysfunction Benign hypertensive cardiomyopathy with heart failure ([facility]) Anemia following surgery History of deep venous thrombosis Hypertension Hypokalemia Impaired mobility and activities of daily living Lack of stamina Morbid obesity with body mass index (BMI) of 50.0 to 59.9 in adult ([facility]) Postoperative pain Status post total right knee replacement Thrombocytopenia RAVI (obstructive sleep apnea) Overactive bladder Screening mammogram for breast cancer Type 2 diabetes mellitus with hyperglycemia ([facility]/H[facility]) PONV (postoperative nausea and vomiting) Lumbar back [...] and soft. Musculoskeletal: Inspec (more content not included)...[facility]02-21-2025 NotePatient here for 4 mo follow up [...] palpitations. All other systems reviewed and are negative.[facility] 05-14-2023 Evaluation note* Encounter Date Diagnosis Assessment [...] forms for supplies and faxed back to [employer]. Pt states she will restart and become co mpliant w CPAP treatment. [employer] Other 11-17-2023 Evaluation note* Encounter Date Diagnosis [...] treatment plan. Patient left in stable condition [facility] [employer] Other 07-06-2021 Evaluation note* Diagnosis Onset Date Resolution Status Essential (primary) hypertension October 22, 2020 acuteParoxysmal atrial fibrillationacuteScreening mammogram for breast cancer acuteType 2 diabetes mellitus with hyperglycemiaacute [facility] Work Phone: Evaluation noteNo InformationNortRoxborough Memorial Hospital [employer] Other Evaluation note* Diagnosis Onset Date Resolution Status Paroxysmal atrial fibrillation acuteScreening mammogram for breast canceracuteType 2 diabetes mellitus with hyperglycemiaacuteWellness examinationacute [facility] Work Phone: Evaluation note* Diagnosis Onset Date Resolution Status Pain in left foot noneactiveLumbar back painacute [facility] Work Phone: Evaluation note* Diagnosis Onset Date Resolution Status Lumbar back pain acuteRight leg swellingacute [facility] Work Phone: Evaluation note* Diagnosis Hallux rigidus of left foot- Primary Hallux rigidus of right foot Diabetes mellitus due to underlying condition with diabetic polyneuropathy, unspecified whether shelter insulin use (HCC) Pain due to onychomycosis of toenails of both feet Venous insufficiency Unspecified venous (peripheral) insufficiency documented in this encounter [facility] HealthcareEvaluation note* Diagnosis Cervicalgia- Primary Hallux rigidus of left foot- Primary Hallux rigidus of right foot Diabetes mellitus due to underlying condition with diabetic polyneuropathy, 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) Pain due to onychomycosis of toenails of both feet Venous insufficiency Unspecified venous (peripheral) insufficiency documented in this encounter [facility] HealthcareEvaluation note* Diagnosis Hallux rigidus of left foot- Primary Hallux rigidus of right foot Diabetes mellitus due to underlying condition with diabetic polyneuropathy, 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) Pain due to onychomycosis [...] HistoryC sectionSurgical Historyright knee arthroplasty05/07Hospitalization Historysee above [employer] Other Reason for visit Narrative* Rehabilitation - Outpatient (Routine) - AuthorizedSpecialtyDiagnoses / ProceduresReferred By ContactReferred To ContactPhysical Therapy Diagnoses Cervicalgia Procedures IN PHYSICAL THERAPY EVALUATION LOW COMPLEX 20 MINS IN OFFICE/OUTPATIENT NEW HIGH MDM 60 MINUTES Rosa Guzman MD [address] [place] [address] fax: Aric Aaron, PT Referral IDStatusReasonStart DateExpiration DateVisits RequestedVisits [id number]/[id number] [facility] Healthcare Summary Purpose Family History No [...] section and content) DATE CREATED AUTHOR 08/28/2018 [facility] DATE CREATED AUTHOR AUTHOR'S ORGANIZ ATION 05/07/2021 [facility] DATE CREATED AUTHOR AUTHOR'S ORGANIZ ATION 09/19/2021 [facility] DATE CREATED AUTHOR AUTHOR'S ORGANIZ ATION 02/27/2022 [facility] DATE CREATED AUTHOR AUTHOR'S ORGANIZ ATION 12/16/2024 [facility] EPIC DATE CREATED AUTHOR AUTHOR'S ORGANIZ ATION 01/21/2025 [facility] DATE CREATED AUTHOR AUTHOR'S ORGANIZ ATION 02/21/2025 [facility] REASON FOR VISIT (unrecogniz ed section and [...] BE BASED ON THE PRIMARY CLINICAL RECORDS. [facility] [employer] [facility]. provides no warranty or guarantee of the accuracy or completeness of information in this document.
== END 2025-03-07 08:54 | disposition home or self-care (01) ==
LOC: MAMMO 08:53
PROVIDERS: PCP Internal Medicine; Visit Provider Internal Medicine
DX: Z01.818 Encounter for other preprocedural examination (principal); Z12.31 Encounter for screening mammogram for malignant neoplasm of breast; Z80.3 Family history of malignant neoplasm of breast; R92.8 Other abnormal and inconclusive findings on diagnostic imaging of breast; M54.9 Dorsalgia, unspecified
CPT/HCPCS: 36415; 77063; 77067; 82565

== ENCOUNTER 2025-03-09 08:33 | Outpatient (OUT) | payer OTHER, SELFPAY ==
--- OUTSIDE RECORDS SUMMARY | 2024-10-25 09:00 | XMS_ITS ---
Author Organization [facility] vices Address [address] [place], [place] [id number] Care Team Providers Care Tiedown Operator Name Role Phone Rosa Guzman Primary Care Provider REASON FOR VISIT THREAD LASTER [facility] Social History Sex Assigned At : Social History Observation Description Sex Assigned At Female Encounters Encounter Location Date Provider Diagnosis Main [address] [place], [place] [id number] 10/25/2024 Rosa Guzman Plan Of Treatment Next Appt Details Provider Name:Rosa Guzman, 03/19/2025 10:30:00 AM, [address] [place], [place], [id number], Progress Notes * Ngozi HUDSONDOB: 2 (64 yo F)Acc No.[id number]:10/25/2024 Progress Notes Patient: Oseas Ngozi rocha :?Rosa Guzman MDDOB:1960???Age:64 Y???Sex: FemaleDate:10/25/2024Phone:[phone]:[address] [place], [place] Subjective: * Chief Complaints: * N P Wellness Billing Information: * Procedure Codes: * Electronic signature of Rosa Guzman MD on 03/09/2025 at 08:37 AM ESTSign off status: Pending * Provider: Kayla Guzman MD Date: 0 10/25/2024 Generated for Printing/Faxing/eTransmitting on:?03/09/2025 08:37 AM EST
--- OUTSIDE RECORDS SUMMARY | 2025-03-08 05:18 | XMS_ITS ---
Author Organization [facility] Address [address] [place], [place] [id number] Care Team Providers Care Manhole Stripper Name Role Phone Rosa Guzman Primary Care Provider REASON FOR VISIT mammogram results Social History Sex Assigned At : Social History Observation Description Sex Assigned At Female Encounters Encounter Location Date Provider Diagnosis Main [address] [id number] 03/08/2025 Rosa Guzman Mass of upper inner quadrant of right breast N63.12 Assessments Encounter Date Diagnosis (ICD Code) Assessment Notes Treatment Notes Treatment Clinical Notes Section Notes 03/08/2025 Mass of upper inner quadrant of right breast (ICD-10 - N63.12) Plan Of Treatment Pending Test Test Name Order Date Ultrasound : Breast, right 03/08/2025 MAMM DIAGNOSTIC UNILAT RT W CAD 03/08/20 25 Next Appt Details Provider Name:Rosa Guzman, 03/19/2025 10:30:00 AM, [address] [place], [place], [id number], Progress Notes * gNozi HUDSONDOB: 2 (64 yo F)Acc No.[id number]:03/08/2025 Patient:?JANAELastla :1960???Age:64 Y???Sex:FemalePhone:[phone] Address:[address] [place], [address] Subjective: * Chief Complaints: * M ammogram results Assessment: * Assessment: 1.?Mass of upper inner quadrant of right breast - N63.12 (Primary)??? Plan: * Treatment: ?Imaging: Ultrasound : Breast, right * ?Imaging: MAMM DIAGNOSTIC UNILAT RT W CAD* * true * Date:?Generated for Printing/Faxing/eTransmitting on:?03/09/2025 08:37 AM EST
--- OUTSIDE RECORDS SUMMARY | 2025-03-08 10:30 | XMS_ITS | Encounter Summary ---
Author Organization [facility] Address [address] [place] [address] Care Team Providers Care Dovetailer Name Role Phone Unavailable Primary Care Provider Unavailabl e Reason for Visit * ReasonCommentsDM Foot Care Encounter Details DateTypeDepartmentCare Team (Latest Contact Info)Uyhetphbczt43/20/2025 10:30 AM ESTOffice Visit [facility] [address] [facility] [address] [place] [phone] Esequiel Reno, DPEma [address] [facility] [address] [place] [address] Diabetes mellitus due to underlying condition with diabetic polyneuropathy, unspecified whether machine long goods helper insulin use (HCC) (Primary Dx); Pain due to onychomycosis of toenails of both feet; Venous insufficiency; Hallux rigidus of left foot; Hallux rigidus of right foot Social History Tobacco UseTypesPacks/DayYears UsedDateSmoking Tobacco: NeverSmokeless Tobacco: Never Tobacco Cessation:Counseling Given: Yes Alcohol UseStandard Drinks/WeekCommentsNever0 (1 standard drink = 0.6 oz pure alcohol)CommentsUnknownSex and Gender InformationValueDate RecordedSex Assigned at EkxuaWkdczj86/14/2025 9:28 AM EDTLegal BnuSzsgkk23/15/2023 6:45 PM EDTGender QfinkdnaNptyre30/14/2025 9:28 AM EDTSexual OrientationStraight 09/30/2024 9:28 AM EDTdocumented as of this encounter Last Filed Vital Signs Vital SignReadingTime TakenCommentsBlood Pressure--Pulse--Temperature-- Respiratory Qtcp052905/08/2024 10:34 AM ESTOxygen Saturation--Inhaled Oxygen Concentration--Dyidls010 kg (348 lb)03/08/2025 10:34 AM MRTJapmwj000.1 cm (5' 5 )03/08/2025 10:34 AM ESTBody Mass Index57.9103/08/2025 10:34 AM ESTdocumented in this encounter Progress Notes * Esequiel Reno DPM - 03/08/2025 10:30 AM EST Patient: Ngozi Hudson : 1960 PCP: No primary care provider [...] with positive improvement. Patient rates pain a 3/10. Allergies: Not on File Past Medical History: [...] Strain: Low Risk (05/05/2023) Received from [facility] Overall Financial Resource Strain (CARDIA) Difficulty of Paying Living Expenses: Not hard at all Food Insecurity: No Food Insecurity (05/05/2023) Received from [facility] Hunger Vital Sign Within the past 12 months, you worried that your food would run out before you got the money to buymore.: Never true Ran Out of Food in the Last Year: Not on file Transportation Needs: No Transportation Needs (05/05/2023) Received from [facility] Transportation In the past 12 months, has lack of transportation kept you from medical appointments or from getting medications?: No Lack of Transportation (Non-Medical): Not on file Physical Activity: Not on file Stress: Not on file Social Connections: Not on file Intimate Partner Violence: Unknown (05/05/2023) Received from [facility] Humiliation, Afraid, Rape, and Kick questionnaire Within the last year, have you been afraid of your partner or ex-partner?: No Emotionally Abused: Not on file Physically Abused: Not on file Sexually Abused: Not on file Housing Stability: Low Risk (05/05/2023) Received from [facility] Housing Stability Vital Sign Unable to [...] ankles with notable small varicosities VASC: barely palpable DP and PT pedal pulses NEURO: 5.07 [place] Satish monofilament test intact to digits and forefoot bilaterally 125Hz tuning fork diminished to 1st MPJ bilaterally ORTHO: Positive pain on palpation to toenails of the left 1,2,3,4,5 toes and right 1,2,3,4,5 toes Range of motion 1st MPJ less than 65 degrees dorsiflexion bilaterally with negative crepitus ASSESSMENT 1. Diabetes mellitus due to underlying condition with diabetic polyneuropathy, unspecified whether machine long goods helper insulin use (HCC) 2. Pain due to onychomycosis of toenails of both feet 3. Venous insufficiency 4. Hallux rigidus of left foot 5. Hallux rigidus of right foot PLAN Discussed proper foot care with patient [...] Esequiel Reno DPM documented in this encounter Plan of Treatment DateTypeDepartmentCare Team (Latest Contact Info)Xcfrcgmrdly03/12/2026 9:50 AM ESTOffice Visit [facility] [address] [facility] [address] [place] [address] Esequiel Reno DPM [address] [facility] [address] [place] [address] documented as of this encounter Visit Diagnoses Diagnosis Diabetes mellitus due to underlying condition with diabetic polyneuropathy, unspecified whether [facility] insulin use (HCC)- Primary Pain due to onychomycosis of toenails of both feet Venous insufficiency Unspecified venous (peripheral) insufficiency Hallux rigidus of left foot Hallux rigidus of right foot documented in this encounter
--- OUTSIDE RECORDS SUMMARY | 2025-03-09 08:37 | XMS_ITS | Clinical Summary ---
Author Organization [facility] Address [address] [place] [address] Phone Care Team Providers Care Retail Office Manager Name Role Phone Sindi Tierney MD Primary Care Provider [phone] Social History Tobacco UseTypesPacks/DayYears UsedDateSmoking Tobacco: Never Assessed CommentsUnknownSex and Gender InformationValueDate RecordedSex Assigned at Not on fileLegal DzfInmjbm35/26/2022 10:35 AM ESTGender IdentityNot on file Sexual OrientationNot on file Plan of Treatment Not on file Care Teams Team MemberRelationshipSpecialtyStart DateEnd Date Sindi Tierney MD [address] [place] [address] [address] [place] [address] [facility]08/18/18
--- OUTSIDE RECORDS SUMMARY | 2025-03-09 08:37 | XMS_ITS | Clinical Summary ---
Author Organization [facility] Address [address] [address] [place] [address] Care Team Providers Care Automatic Bandsaw Tender Name Role Phone Unavailable Primary Care Provider Unavailabl e Medications MedicationSigDispense QuantityRefillsLast FilledStart DateEnd DateStatus dapagliflozin (Farxiga) 10 MG Take 10 mg by mouth4Active spironolactone (Aldactone) 25 MG tablet Take 25 mg by mouth DailyActive losartan (Cozaar) 25 MG tablet Take 25 mg by mouth DailyActive bumetanide (Bumex) 1 MG tablet Take 1 mg by mouth in the morning.Active apixaban (Eliquis) 5 MG tablet Take 5 mg by mouth in the morning and 5 mg in the evening.4Active carvedilol (Coreg) 6.25 MG tablet TAKE 1 TABLET BY MOUTH TWICE DAILY (WITH BREAKFAST AND WITH EVENING MEAL)Active magnesium oxide (Mag-Ox) 400 (240 Mg) MG tablet Take 400 mg by mouth in the morning and 400 mg before bedtime.5Active metFORMIN XR (Glucophage-XR) 500 MG 24 hr tablet Take 500 mg by mouth at bedtimeActive Active Problems No known active problems Encounters DateTypeDepartmentCare FytvQmayfdjtxdc15/20/2025 10:30 AM ESTOffice Visit [facility] [address] [place] [address] [place] [phone] Esequiel Reno, DPEma Diabetes mellitus due to underlying condition with diabetic polyneuropathy, unspecified whether nursing home insulin use (HCC) (Primary Dx); Pain due to onychomycosis of toenails of both feet; Venous insufficiency; Hallux rigidus of left foot; Hallux rigidus of right foot03/08/2025amboo flowsheet [facility] [address] [facility] [address] [place] [address] Esequiel Reno DPM 03/08/20253080Gudyln62/13/5637Mhdtmb14/28/2025 10:50 AM EDTOffice Visit [facility] [address] [place] [address] [place] [phone] Esequiel Reno DPM Hallux rigidus of left foot (Primary Dx); Hallux rigidus of right foot; Diabetes mellitus due to underlying condition with diabetic polyneuropathy, unspecified whether nursing home insulin use (HCC); Pain due to onychomycosis of toenails of both feet; Venous iruvwpmkvfjgb45/28/2025[facility] flowsheet [facility] [address] [place] [address] [place] [phone] Esequiel Reno DPM 12/14/20243831Gvzbsg37/27/2025Travelfrom Last 3 Months Family History Medical HistoryRelationNameCommentsDiabetesMaternal GrandfatherNoahDiabetes Maternal GrandmotherNoahCancerMotherWillaDiabetesMotherWillaDiabetesMother's BrotherBilly joeCancerMother's SisterWandaRelationNameStatusCommentsMaternal GrandfatherNoahAliveMaternal GrandmotherNoahAliveMotherWillaAliveMother's BrotherBilly joeAliveMother's SisterWandaAlive Social History Tobacco UseTypesPacks/DayYears UsedDateSmoking Tobacco: NeverSmokeless Tobacco: Never Tobacco Cessation:Counseling Given: Yes Alcohol UseStandard Drinks/WeekCommentsNever0 (1 standard drink = 0.6 oz pure alcohol)CommentsUnknownSex and Gender InformationValueDate RecordedSex Assigned at IowsmJsknsz43/14/2025 9:28 AM EDTLegal BagTdhcvb73/15/2023 6:45 PM EDTGender AvfglmkaOccyfe93/14/2025 9:28 AM EDTSexual OrientationStraight 09/30/2024 9:28 AM EDT Last Filed Vital Signs Vital SignReadingTime TakenCommentsBlood Tjomxbay589/65819 12:00 PM EST Pulse--Temperature--Respiratory Vdsv098705/08/2024 10:34 AM ESTOxygen Saturation-- Inhaled Oxygen Concentration--Xcdumw758 kg (348 lb)03/08/2025 10:34 AM ESTHeight 165.1 cm (5' 5 )03/08/2025 10:34 AM ESTBody Mass Index57.9103/08/2025 10:34 AM EST Plan of Treatment DateTypeDepartmentCare Team (Latest Contact Info)Jwrpnnsfknp51/12/2026 9:50 AM ESTOffice Visit [facility] [address] [facility] 120 [place] [address] Esequiel Reno DPM [address] [facility] [address] [place] [address] Health MaintenanceDue DateLast DoneCommentsCT Avelimxtefbc23/07/1962Colonoscopy 2Colorectal Cancer Evgukbhlr63/07/1962FIT-DNA1961FIT1961 FOBT07/24/19615674Tlmatsyhjhxlg64/07/1962Pap Smear1982Cervical Cancer Spuxodyjn93/07/1992HPV/Vpavqv1407/25/19913199Rmqotilrg85/07/2002COVID-19 Vaccine ( season)501/06/2021, 08/02/2020, 07/05/2020Influenza Vaccine Pwahruwss66/03/2025, 03/08/2024, 02/22/2023, Additional history exists Pneumococcal Vaccine: Pediatrics (0 to 5 Years) and At-Risk Patients (6 to 64 Years)Aged OutNo longer eligible based on patient's age to complete this topic Insurance
--- OUTSIDE RECORDS SUMMARY | 2025-03-09 08:37 | XMS_ITS | Clinical Summary ---
Author Organization [facility] Address [address] [place] [address] Care Team Providers Care Prep Cook Name Role Phone Rosa Guzman MD Primary Care Provider Allergies Active AllergyReactionsCriticalityNoted DateCommentsCiprofloxacinUnknown 02/14/20241303InrmppggfjxxjlsTxfwhgjkdifkoc56/11/2024 Pt states she gets loopy IhautbhkllxIkuru72/17/9647BhbablfaPhdyd37/11/2024 Medications MedicationSigDispense QuantityRefillsLast FilledStart DateEnd DateStatus metFORMIN XR (Glucophage-XR) 500 mg 24 hr tablet Take 500 mg by mouth daily with evening meal. Do not crush, chew, or split. Active apixaban (Eliquis) 5 mg tablet Indications:Paroxysmal atrial fibrillation (CMS/HCC)Take 1 tablet (5 mg) by mouth two times daily. 180 tablet ctive dapagliflozin propanediol (Farxiga) 10 mg Indications:Acute on chronic systolic heart failure, NYHA class 2 (CMS/HCC)Take 1 tablet (10 mg) by mouth once daily as directed. 90 tablet ctive aspirin 81 mg EC tablet Take 81 mg by mouth in the morning.Active carvedilol (Coreg) 3.125 mg tablet Indications:PAF (paroxysmal atrial fibrillation) (CMS/HCC),S/P ablation of atrial fibrillation,PAC (premature atrial contraction),PVC (premature ventricular contraction)Take 1 tablet (3.125 mg) by mouth with breakfast and with evening meal. Take (1) 6.25mg tablet plus(1) 3.125mg table twice daily 60 tablet 1108/ctive carvedilol (Coreg) 3.125 mg tablet Indications:PalpitationsTake 1 tablet (3.125 mg) by mouth with breakfast and with evening meal. 180 tablet /6Active Additional Information Patient not taking.Reported on 02/20/2025 bumetanide (Bumex) 1 mg tablet Indications:Acute on chronic systolic heart failure, NYHA class 2 (CMS/HCC)Take 1 tablet (1 mg) by mouth in the morning. 90 tablet /ctive carvedilol (Coreg) 6.25 mg tablet Indications:Acute on chronic systolic heart failure, NYHA class 2 (CMS/HCC)Take 1 tablet (6.25 mg) by mouth with breakfast and with evening meal. 180 tablet ctive magnesium oxide (Mag-Ox) 400 mg (241.3 mg magnesium) tablet Indications:Acute on chronic systolic heart failure, NYHA class 2 (CMS/HCC)Take 1 tablet (400 mg) by mouth two times daily. 180 tablet 5Active spironolactone (Aldactone) 25 mg tablet Indications:Acute on chronic systolic heart failure, NYHA class 2 (CMS/HCC)Take 1 tablet (25 mg) by mouth once daily as directed. 90 tablet ctive losartan (Cozaar) 25 mg tablet Indications:Essential hypertensionTake 1 tablet (25 mg) by mouth once daily as directed. 90 tablet 6Active Ozempic 0.25 mg or 0.5 mg (2 mg/3 mL) pen injector Inject 0.25 mg under the skin every 7 (seven) days.5Active Active Problems ProblemNoted DateDiagnosed DateTakes dietary xemtkcfzfra27/04/2025 Overview (06/09/2024): Last Assessment & Plan: Condition: stable Follow up in: three months Type 2 diabetes mellitus, without long-term current use of kqlufpq2605/23/2024 Overview (06/09/2024): Last Assessment & Plan: Condition: stable Source of diagnosis: Medication and Diagnosis confirmed from PCP record and currently active Diabetes Program Problem: Blood Glucose Monitoring Goal: Member/caregiver/family will keep a recorded log of daily blood sugar levels Interventions: Visit Provider provided patient education to member/caregiver/family as to why it isimportant to monitor and log blood sugar readings, Visit Provider encouraged member/caregiver/family to check blood sugar levels as ordered by provider and share the daily log at next appointment visit, Member will report any barriers to PCP/Specialist that would limit recording/logging their bloodsugar readings Follow up in: three months with PCP Lumbar back pain01/26/2024ight leg edqzgxey29/09/2024ONV (postoperative nausea and vomiting)10/28/2023OSA (obstructive sleep apnea)10/05/2023Screening mammogram for breast whhyyj9710/05/2023Type 2 diabetes mellitus with hyperglycemia 10/05/2023nemia following fqngtty09History of deep venous znzjzqtspf81HypertensionHypokalemia Impaired mobility and activities of daily bczxuw7005/17/2023 05/17/2023Lack of inujwqd73Morbid obesity with body mass index (BMI) of 50.0 to 59.9 in adultostoperative pain05/17/2023 05/17/2023Status post total right knee ijnlwpfivou04 Sqadcteojpibnezh10aroxysmal atrial mwtlniimputm03/22/2024 Assessment & Plan (06/30/2023 2:19 PM EDT): RXH6FB2-ITCg= 4 Continue eliquis anticoagulation, amiodarone for rhythm control and coreg for rate control Assessment & Plan (06/18/2023 11:12 AM EST): Continue amiodarone 200 mg daily, and coreg 6.25 mg bid. Will add midodrine 5 mg tid to regime for noted hypotension and symptoms of lightheadedness/dizziness and near syncope. Continue eliquis anticoaogulation- denied any bleeding tendencies Grade II diastolic xplkykglhyx95/22/2024enign hypertensive cardiomyopathy with heart vnarwxg7705/10/2023 Assessment & Plan (06/30/2023 2:20 PM EDT): BP in office perfect 128/72, but with midodrine 5 mg tid she has exaggerated supine hypertension athome after review of b/p log, therefore recommended pt to take midodrine as needed - hold for SBP> 120, and can also cut tab in 04/20 to = 2.5 mg And she voiced understanding. Assessment & Plan (06/18/2023 12:41 PM EST): HTN currently well controlled, also labile 90/57 and may have been Contributing to symptoms this week. Will add midodrine 5 mg tid to regime to prevent hypotension, lightheadedness/dizziness or syncope. Chronic systolic congestive heart failure, NYHA class Assessment & Plan (06/30/2023 2:21 PM EDT): CHF stable with out exacerbation Continue GDMT as prescribed Assessment & Plan (06/18/2023 11:12 AM EST): [facility]- currently without exacerbation Continue GDMT- ASA, coreg, farxiga, losartan, entresot and aldatone Diuretic therapy- bumex 1 mg daily Monitor daily weights, I&O, fluid restriction 1.5-2L/day, renal function and electrolytes Overactive agekhem3803/03/2013 Resolved Problems ProblemNoted DateDiagnosed DateResolved DateAcute kidney ytmmol5205/17/2023/02/2024 Encounters DateTypeDepartmentCare DiuxRakfvtgsxjd47/04/2025 11:00 AM ESTOffice Visit [facility] [address] [place] [address] Jose Luis Cronin MD S/P ablation of atrial fibrillation (Primary Dx)01/07/2025Results Follow-Up [facility] [address] [place] [address] Aspen Cook CNP Complete Echo (TTE) w/wo Imaging Agent, Strain, 3D, Bubble Study01/05/2025Orders Only [facility] [address] [place] [phone] ProviderXavi MD 01/04/2025 1:20 PM EDTAncillary Procedure [facility] [address] [place] [phone] Awareness of /18/2025Orders Only [facility] [address] [place] [phone] Adenike Serrano MD 12/13/2024[facility] [address] [place] [facility] [place] [address] Otilia Peterson MA Acute on chronic systolic heart failure, NYHA class 2 (CMS/HCC); Essential bzssfmbipwhu11/27/2025RefSt[facility] [address] [place] [facility] [place] [address] Otilia Peterson MA from Last 3 Months Family History Medical HistoryRelationNameCommentsHeart attackBrotherStrokeBrotherAtrial fibrillationFatherHeart attackMotherStrokeMotherRelationNameStatusComments BrotherDeceasedFatherDeceasedMotherDeceased Social History Tobacco UseTypesPacks/DayYears UsedDateSmoking Tobacco: NeverSmokeless Tobacco: Never Tobacco Cessation:Counseling Given: Not Answered Alcohol UseStandard Drinks/WeekCommentsNot Currently0 (1 standard drink = 0.6 oz pure alcohol)[facility] UtilitiesAnswerDate RecordedIn the past 12 months has the [employer], gas, oil, or water Coupay threatened to shut off services in your home?No05/05/2023Humiliation, Afraid, Rape, and Kick questionnaireAnswerDate RecordedWithin the last year, have you been afraid of your partner or ex-partner?No01/17/2024Emotionally AbusedNot on file05/05/2023hysically Abused Not on file05/05/2023Sexually AbusedNot on file05/05/2023Overall Financial Resource Strain (CARDIA)AnswerDate RecordedHow hard is it for you to pay for the very basics like food, housing, medical care, and heating?Not hard at all 05/05/2023UT Safety & EnvironmentAnswerDate RecordedWithin the last year, have you been afraid of your partner or ex-partner?No05/05/2023Emotionally AbusedNot on file05/05/2023hysically AbusedNot on file05/05/2023Sexually AbusedNot on file05/05/2023In the past year have you been physically or sexually abused? Unrecognized value05/05/2023TransportationAnswerDate RecordedIn the past 12 months, has lack of transportation kept you from medical appointments or from getting medications?No05/05/2023Lack of Transportation (Non-Medical)Not on file 05/05/2023Housing Stability Vital SignAnswerDate RecordedUnable to Pay for Housing in the Last YearNot on file05/05/2023Number of Places Lived in the Last YearNot on file05/05/2023In the last 12 months, was there a time when you did not have a steady place to sleep or slept in ashelter (including now)?No 05/05/2023Hunger Vital SignAnswerDate RecordedWithin the past 12 months, you worried that your food would run out before you got the money to buymore.Never true05/05/2023an Out of Food in the Last YearNot on file05/05/2023 CommentsNoSex and Gender InformationValueDate RecordedSex Assigned at Ltmzha8807/12/2023 6:46 AM EDTLegal AtjNtclud72/29/2022 10:14 PM EDTGender UqfelphvIyhzfw29/25/2024 6:46 AM EDTSexual OrientationHeterosexual or Straight 07/12/2023 6:46 AM EDT Last Filed Vital Signs Vital SignReadingTime TakenCommentsBlood Tjaiaxmb995/7802/20/2025 11:30 AM EST Eumtl628302/20/2025 11:30 AM JOQIibdvowbugv63.3 ??C (97.3 ??F)10/28/2023 3:35 PM EDTRespiratory Eiqb3140 7:05 PM EDTOxygen Tyccpcwskj98%02/20/2025 11:30 AM ESTInhaled Oxygen Concentration--Vdxdjn442 kg (349 lb)02/20/2025 11:30 AM EST Wzbepk594.1 cm (5' 5 )02/20/2025 11:30 AM ESTBody Mass Index58.0802/20/2025 11:30 AM EST Plan of Treatment Health MaintenanceDue DateLast DoneCommentsCT Solnlzycupad50/07/1962Colonoscopy 2Colorectal Cancer Aezzjisok66/07/1962Diabetes: Hemoglobin A1C 1961FIT-DNA1961FIT1961FOBT07/24/19618763Eopabeglgucif81/07/1962 Diabetes: Retinopathy Hbzbkufrf09/07/1972Depression Wcbsuvica55/07/1974Diabetes: Urine Protein Tlaipzjqd56/07/1981Pap Smear1982Adult Uzqridl3607/25/1983 Cervical Cancer Zgjmzsoim23/07/1992HPV/Orxgmn2907/25/19911245Fpohptbmb75/07/2002Zoster Vaccines (2 of 2)411/3COVID-19 Vaccine ( season) 501/06/2021, 08/02/2020, 07/05/2020Influenza VaccineCompleted 02/19/2025, 03/08/2024, 02/22/2023, Additional history existsPneumococcal Vaccine: Pediatrics (0 to 5 Years) and At-Risk Patients (6 to 64 Years)Completed 02/19/2025HIB VaccinesAged OutNo longer eligible based on patient's age to complete this topicHPV VaccinesAged OutNo longer eligible based on patient's age to complete this topicIPV VaccinesAged OutNo longer eligible based on patient's age to complete this topicMeningococcal B VaccineAged OutNo longer eligible based on patient's age to complete this topicMeningococcal VaccineAged OutNo longer eligible based on patient's age to complete this topicRotavirus Vaccines Aged OutNo longer eligible based on patient's age to complete this topic Medical Devices ImplantedTypeAreaManufacturerDevice IdentifierShelf Expiration DateModel / Serial / LotMonitor,Cardiac,Lux,Dxii+[facility] - [id number] - [id number] Implanted:Qty: 1 on 07/12/2023 by Jose Luis Cronin MD at [facility] SystemImplantable Loop RecorderRobert Breck Brigh[facility] Incur[facility]11/24/2024M312 / [id number] / Procedures Procedure NamePriorityDate/TimeAssociated DiagnosisCommentsCARDIAC DEVICE CHECK CHECK - UAVMGQMozrrtm79/22/2025 1:11 PM EDT Awareness of heartbeats COMPLETE TRANSTHORACIC ECHO (TTE) W/WO IMAGING AGENT, STRAIN, 3D, BUBBLE STUDY Ilxmnyw0301/04/2025 9:51 AM EDT CARDIAC DEVICE CHECK - REMOTE - LOOP RECORDER (ILR)Ofhvowg0301/04/2025 12:00 AM EDTfrom Last 3 Months Results * CARDIAC DEVICE CHECK - REMOTE - LOOP RECORDER (ILR) (01/08/2025 1:11 PM EDT) Specimen (Source)Anatomical Location / LateralityCollection Method / Volume Collection TimeReceived Time Narrative Authorizing ProviderResult TypeResult StatusJose Luis Cronin [facility] [place] CARDIAC DEVICE PROCEDURESFinal ResultPerforming OrganizationAddressCity/State/ZIP Code Phone Number CPACS * Complete Echo (TTE) w/wo Imaging Agent, Strain, 3D, Bubble Study (01/04/2025 9:51 AM EDT)Anatomical RegionLateralityModalityUltrasound Narrative Authorizing ProviderResult TypeResult StatusHistorical Provider [facility] [place] ECHO PROCEDURESFinal Result * Cardiac device check - Remote loop recorder (ILR) (01/04/2025 12:00 AM EDT) Anatomical RegionLateralityModalityOtherSpecimen (Source)Anatomical Location / LateralityCollection Method / VolumeCollection TimeReceived Time01/04/2025 Narrative Authorizing ProviderResult TypeResult StatusAdenike Serrano MDCV IMPLANTABLE CARDIAC DEVICE PROCEDURESFinal Result from Last 3 Months Insurance Advance Directives * Full Code (Latest Code Status on File) Date ActivatedDate InactivatedComments10/28/2023 3:55 PM10/28/2023 9:32 PM * Full Code Date ActivatedDate InactivatedComments07/12/2023 10:08 AM07/12/2023 2:35 PM * Full Code Date ActivatedDate InactivatedComments05/07/2023 2:26 PM05/11/2023 3:34 PM Care Teams Team MemberRelationshipSpecialtyStart DateEnd Date Rosa Guzman MD [address] [facility] [address] [place] [address] PCP - GeneralInternal Medicine11/29/24
--- OUTSIDE RECORDS SUMMARY | 2025-03-09 08:37 | XMS_ITS | Patient Health Record ---
Author Organization [facility] Address [address] [place], [place] [id number] Care Team Providers Care Needle Grinder Name Role Phone Rosa Gaming Primary Care Provider Allergies Allergen (clinical drug ingredient) Drug/Non Drug Allergy documented on EMR Reaction Allergy Type Onset Date Status PenicillinUnknownDrug AllergyActive Results Component Value Reference Range Flag Notes MR pelvis wo con Reviewed date:03/08/2025 01:22:13 PM Interpretation: Performing Lab: Notes/Report: Source Facility: [place] [address] Magnetic Resonance Report Signed Patient: FERN CARDOSO MR#: [id number] : 1960 Acct:[id number] Age/Sex: 64 / F ADM Date: 03/07/25 Loc: LAB Attending Dr: MandyStaff Physician Louis Ordering Physician: Jimenez David M.D. Date of Service: 03/07/25 Procedure(s): MR pelvis wo con Accession Number(s): [id number] cc: Rosa Gaming M.D.; Jimenez David M.D. [place] [address] Patient Name: FERN CARDOSO MRN: [id number] date: 1960 Sex: F Assigned Patient Location: LAB Current Patient Location: MAMMO Accession/Order Number: [id number] Exam Date: 03/07/2025 09:15 Report Date: 03/08/2025 12:51 At the request of: NON-STAFF PHYSICIAN Procedure: MR pelvis wo con MRI OF THE PELVIS WITHOUT CONTRAST: CLINICAL HISTORY: Chronic Back Pain COMPARISON: None TECHNIQUE: Multisequence, multiplanar imaging of the pelvis was obtained without the use of IV contrast. FINDINGS: Examination is suboptimal due to body habitus. No bone marrow edema or fracture is seen . Degenerative changes are seen involving the hips with small joint effusions. No evidence of avascular necrosis. Soft tissues surrounding the bony pelvis demonstrate no acute process. No fluid collection to suggest abscess. Musculature appears atrophic without focal abnormality. Intrapelvic contents demonstrate no acute findings. MR/MR pelvis wo con IMPRESSION: Suboptimal study. DEGENERATIVE CHANGES INVOLVING THE HIPS WITHOUT EVIDENCE OF ACUTE BONY PROCESS SUCH FRACTURE OR CONTUSION. Impression dictated by: Jeffy Monae Jr., D.O. 03/08/2025 12:51 PM Dictation Location: [place] [address] Electronically authenticated by: [id number] Y Date: 03/08/2025 12:51 Dictated By: Jeffy Monae M.D. Signed By: 03/08/25 1253 DD/ 1251 TD/TT: Feeder Operator Automatic: MM tomosynthesis screening B I Reviewed date:03/08/2025 10:23:02 AM Interpretation: Performing Lab: Notes/Report: Source Facility: [place] [address] Mammography Report Signed Patient: FERN CARDOSO MR#: [id number] : 1960 Acct:[id number] Age/Sex: 64 / F ADM Date: 03/07/25 Loc: MAMMO Attending Dr: Rosa Gaming M.D. Ordering Physician: Rosa Gaming M.D. Results: Date of Service: 03/07/25 Follow Up: Procedure(s): MM tomosynthesis screening BI Accession Number(s): [id number] cc: Rosa Gaming M.D. Patient Name: FERN CARDOSO MR#: [id number] : 1960 Exam Date: 03/07/2025 Ordering Doctor: ROSA GAMING RADIOLOGY REPORT PROCEDURE: MM TOMOSYNTHESIS SCREENING BI COMPARISON: MM TOMOSYNTHESIS SCREENING BI, 09/10/2023. MG MAMM DIAGNOSTIC 3D GREG CAD, 05/16/2021. MG MAMM GREG SCRN W CAD DIG, 10/25/2012. INDICATIONS: Screening Calculator Name NCI Breast Cancer Risk Assessment Tool 5 Year Breast Cancer Risk 4.10% Lifetime Breast Cancer Risk 16.60% Personal Breast Cancer No Personal Ovarian Cancer No Treatments EXCISION OF SITE Family Cancers Mother with breast cancer at age 61; Aunt-maternal with breast cancer at age 58. LOCATION: [facility] BREAST COMPOSITION: There are scattered areas of fibroglandular density. FINDINGS: RIGHT BREAST: No significant suspicious finding. There is a new 5 mm focal asymmetry in the right breast in the middle depth a 0.5 cm from the nipple . This localizes to approximately the 3 o'clock position . LEFT BREAST: No significant suspicious finding. DIAGNOSTIC CATEGORY 0--INCOMPLETE: NEED ADDITIONAL IMAGING EVALUATION. RECOMMENDATIONS: ADDITIONAL MAMMOGRAPHIC VIEWS REQUIRED: RIGHT BREAST - follow-up with spot compressed views of the right breast and ultrasound if necessary is recommended. Dictated by: aCrson Cavanaugh MD on 03/07/2025 at 16:22 Approved by: Carson Cavanaugh MD on 03/07/2025 at 16:29 Dictated By: Carson Cavanaugh M.D. Signed By: 03/07/25 1630 DD/ 1629 TD/TT: Feeder Operator Automatic: DARRYL echo doppler complete Reviewed date:01/07/2025 11:42:01 AM Interpretation: Performing Lab: Notes/Report: Source Facility: [facility] [place] [address] [place] [address] Cardiology Report Signed Patient: FERN CARDOSO MR#: [id number] : 1960 Acct:[id number] Age/Sex: 64 / F ADM Date: 01/04/25 Loc: CARD Attending Dr: BENY LANG APRN Ordering Physician: BENY LANG APRN Date of Service: 01/04/25 Procedure(s): CA echo doppler complete Accession Number(s): [id number] cc: Rosa Gaming M.D.; BENY LANG APRN Patient Name: FERN CARDOSO MR#: [id number] : 1960 Exam Date: 01/04/2025 Ordering Doctor: BENY LANG ASSEMBLER GOLD FRAME ECHOCARDIOGRAM REPORT PROCEDURE: CA ECHO DOPPLER COMPLETE INDICATIONS: Atrial fibrillation - ablation, heart failure with improved ejection fraction COMPARISON: None. DESCRIPTION: COMPLETE ECHOCARDIOGRAM Real-time transthoracic echocardiography with 2D, M-mode, spectral and color flow Doppler performed. QUALITY: Technical quality was good. LEFT VENTRICLE: Normal chamber size. Moderate concentric left ventricular hypertrophy. The septum is abnormal in motion likely due to bundle branch block. LV EF: Lower limits of normal left ventricular ejection fraction, (50-55%). DIASTOLIC: ATRIAL SEPTUM: LEFT ATRIUM: Moderate dilatation. RIGHT ATRIUM: Mild dilatation. RIGHT VENTRICLE: Normal chamber size. Normal right ventricular systolic function. TRICUSPID VALVE: Normal mobility and thickness. No stenosis with trivial regurgitation. Unable to assess right-sided pressure due to the lack of measurable tricuspid regurgitation. MITRAL VALVE: Mildly thickened with normal mobility. No evidence of mitral valve stenosis. Mild mitral annular calcification. No mitral regurgitation. AORTIC VALVE: Normal trileaflet appearance. Mildly calcified aortic valve. Normal leaflet mobility. No evidence of aortic valve stenosis. No aortic regurgitation. AORTIC ROOT: Normal diameter and appearance, measuring 3.2 cm. Ascending aorta is normal in size, measuring 3.1 cm. PULMONIC VALVE: Not well visualized. No stenosis. No regurgitation. PERICARDIUM: No evidence of pericardial effusion. IVC: Not well visualized. PLEURA: CONCLUSION: 1. Moderate concentric left ventricular hypertrophy with low normal systolic function. LVEF is estimated at 50 to 55%. 2. Normal right ventricular size and systolic function. 3. Mild to moderate biatrial dilatation. 4. No significant valvular dysfunction. 5. Unable to assess right-sided pressures due to lack of measurable tricuspid regurgitation. Adult Echocardiography Procedure Report Left Ventricle LVEDD (3.7 - 5.6 cm): 4.41 cm LVESD (2.2 - 4.0 cm): 2.63 cm LVIVS thickness (0.6 - 1.2 cm): 1.40 cm LVPW thickness (0.5 - 1.0 cm): 1.38 cm e': 0.07 m/s E - e': 7.36 LVOT Max Gradient: 3.10 mm[Hg] LVOT Area (cm2): 0.88 m/s Peak Velocity (LVOT): 0.88 m/s Mean Velocity (LVOT): 0.62 m/s LVOT Diameter 2.50 cm Left Ventricular Ejection Fraction: 50-55 % Left Atrium LA Volume Index (2D A2C): 44.06 ml/m2 Left Atrium Systolic Dimension: 4.66 cm Mitral Valve MV E to A Ratio: 0.71 Mitral Valve A-Wave Peak Velocity: 0.76 m/s Mitral Valve E-Wave Peak Velocity: 0.54 m/s Right Ventricle Aorta AO Root Diam: 3.25 cm Ascending Ao Diam: 3.08 cm Aortic Valve AoV Area (Peak Dimas): 2.62 cm2, 2.62 cm2 AoV Area (VTI): 3.24 cm2, 3.24 cm2 Peak Velocity(Antegrade Flow): 1.65 m/s Peak Gradient(Antegrade Flow): 10.93 mm[Hg] Mean Velocity(Antegrade Flow): 1.14 m/s Mean Gradient(Antegrade Flow): 5.92 mm[Hg] Velocity Time Integral: 29.43 cm Tricuspid Valve Pulmonic Valve Peak Velocity: 0.96 m/s Peak Gradient: 3.68 mm[Hg], 3.68 mm[Hg] Right Atrium Right Atrium Systolic Pressure: 50.76 ml, 50.76 ml Dictated by: Maikol Guzman M.D. on 01/04/2025 at 21:07 Approved by: Maikol Guzman M.D. on 01/04/2025 at 21:10 Dictated By: MAIKOL GUZMAN Signed By: 01/04/252110 DD/ 09 TD/TT: Feeder Operator Automatic: JESSICA thoracic spine 3V Reviewed date:01/22/2025 07:48:37 AM Interpretation: Performing Lab: Notes/Report: Source Facility: [facility] [place] [address] [place] [address] XRay Report Signed Patient: FERN CARDOSO MR#: [id number] : 1960 Acct:[id number] Age/Sex: 64 / F ADM Date: 01/19/25 Loc: RAD Attending Dr: Non-Staff Physician Heriberto Ordering Physician: HAROON EMMANUEL M.D. Date of Service: 01/19/25 Procedure(s): XR thoracic spine 3V Accession Number(s): [id number] cc: Rosa Gaming M.D.; HAROON EMMANUEL M.D. [place] [address] Patient Name: FERN CARDOSO MRN: [id number] date: 1960 Sex: F Assigned Patient Location: [facility] Current Patient Location: [facility] Accession/Order Number: [id number] Exam Date: 01/19/2025 11:25 Report Date: 01/19/2025 14:36 At the request of: HAROON EMMANUEL MD Procedure: XR thoracic spine 3V THORACIC SPINE - - 2 views CLINICAL HISTORY: chronic BACK PAIN COMPARISON: None FINDINGS: Scattered degenerative changes. Vertebral body heights appear maintained. Pedicles appear intact. XR/XR thoracic spine 3V IMPRESSION: DEGENERATIVE CHANGES INVOLVING THE THORACIC SPINE WITHOUT ACUTE BONY PROCESS. Impression dictated by: Jeffy Monae Jr., D.O. 01/19/2025 2:36 PM Dictation Location: [place] [address] Electronically authenticated by: [id number] Y Date: 01/19/2025 14:36 Dictated By: Jeffy Monae M.D. Signed By: 01/19/25 1438 DD/ 143 TD/TT: Feeder Operator Automatic: XR cervical spine 2-3V Reviewed date:01/22/2025 07:48:25 AM Interpretation: Performing Lab: Notes/Report: Source Facility: [place] [address] [place] [address] XRay Report Signed Patient: FERN CARDOSO MR#: [id number] : 1960 Acct:[id number] Age/Sex: 64 / F ADM Date: 01/19/25 Loc: RAD Attending Dr: Non-Staff Physician Heriberto Ordering Physician: HAROON EMMANUEL M.D. Date of Service: 01/19/25 Procedure(s): XR cervical spine 2-3V Accession Number(s): [id number] cc: Rosa Gaming M.D.; HAROON EMMANUEL M.D. [place] [address] Patient Name: FERN CARDOSO MRN: [id number] date: 1960 Sex: F Assigned Patient Location: [facility] Current Patient Location: [facility] Accession/Order Number: [id number] Exam Date: 01/19/2025 11:25 Report Date: 01/19/2025 14:36 At the request of: HAROON EMMANUEL MD Procedure: XR cervical spine 2-3V CERVICAL SPINE 3 views: CLINICAL HISTORY: chronic neck pain COMPARISON: None FINDINGS: Vertebral body and disc space heights appear maintained. Mild endplate and facet joint degenerative change. No prevertebral soft tissue swelling. XR/XR cervical spine 2-3V IMPRESSION: PREDOMINANTLY ENDPLATE AND FACET JOINT DEGENERATIVE CHANGES WITHOUT SIGNIFICANT DISC HEIGHT LOSS. Impression dictated by: Velia Bañuelos Jr.OMary 01/19/2025 2:36 PM Dictation Location: [place] [address] Electronically authenticated by: [id number] Y Date: 01/19/2025 14:36 Dictated By: Jeffy Monae M.D. Signed By: 01/19/25 1439 DD/ 1436 TD/TT: Feeder Operator Automatic: XR lumbar spine 2-3V Reviewed date:01/22/2025 07:48:07 AM Interpretation: Performing Lab: Notes/Report: Source Facility: [place] [address] [place] [address] XRay Report Signed Patient: FERN CARDOSO MR#: [id number] : 1960 Acct:[id number] Age/Sex: 64 / F ADM Date: 01/19/25 Loc: RAD Attending Dr: Non-Staff Physician Heriberto Ordering Physician: HAROON EMMANUEL M.D. Date of Service: 01/19/25 Procedure(s): XR lumbar spine 2-3V Accession Number(s): [id number] cc: Rosa Gaming M.D.; HAROON EMMANUEL M.D. [place] [address] Patient Name: FERN CARDOSO MRN: [id number] date: 1960 Sex: F Assigned Patient Location: [facility] Current Patient Location: [facility] Accession/Order Number: [id number] Exam Date: 01/19/2025 11:25 Report Date: 01/19/2025 14:37 At the request of: HAROON EMMANUEL MD Procedure: XR lumbar spine 2-3V LUMBAR SPINE - 3 views CLINICAL HISTORY: chronic back pain COMPARISON: Lumbar spine 12/16/2023 FINDINGS: Vertebral body heights appear maintained. Mild endplate and facet joint degenerative changes with mild diffuse disc space narrowing. SI joints demonstrate degenerative change. XR/XR lumbar spine 2-3V IMPRESSION: MILD DIFFUSE DEGENERATIVE DISC DISEASE. FINDINGS ARE SIMILAR TO THE PRIOR STUDY. Impression dictated by: Jeffy Monae Jr., D.O. 01/19/2025 2:37 PM Dictation Location: [place] [address] Electronically authenticated by: [id number] Y Date: 01/19/2025 14:37 Dictated By: Jeffy Monae M.D. Signed By: 01/19/25 1440 DD/ 1437 TD/TT: Feeder Operator Automatic: ORLY A1C Reviewed date:12/29/2024 10:25:53 AM Interpretation: Performing Lab: Notes/Report: Lipid Panel Reviewed date:01/09/2025 01:35:21 PM Interpretation: Performing Lab: Notes/Report: , [facility] Triglycerides 104 <=150 mg/dL Musxmeuxqvv354<=200 mg/dLHDL Ywipmsvoacp2143-63 mg/dLN > or =60 mg/dl - LOW CARDIOVASCULAR RISK <40 mg/dl - HIGH CARDIOVASCULAR RISK LDL Cholesterol Xquuuohcoa71.2 <100 mg/dl OPTIMAL 100-129 mg/dl NEAR OR ABOVE OPTIMAL 130-159 mg/dl BORDERLINE HIGH 160-189 mg/dl HIGH >190 mg/dl VERY HIGH VLDL PHUFOBJHEEY70.8Chol HDL Ratio3.0 3.3 - 4.4 LOW RISK 4.4 - 7.1 AVERAGE RISK 7.1 - 11.0 MODERATE RISK >11.0 HIGH RISK Performing Lab:see noteML - [facility] LBComprehensive Metabolic Panel Reviewed date:01/09/2025 01:35:32 PM Interpretation: Performing Lab: Notes/Report: [facility] ,Elptpc819445-525 mmol/LNPotassium3.73.5-5.1 mmol/RFQhjpzkpc56598-530 mmol/LN Carbon Kpipnhc95.021.0-32.0 mmol/LNAnion Gap13.5Bkycgsn55010-048 mg/dLHBlood Urea Asvfwqll67.07.0-18.0 mg/dLNCreatinine1.150.55-1.02 mg/dLHEstimated GFR ( Edwobhh43>=60 mL/min/1.73m 2LEstimated GFR (Non- Ame48>=60 mL/min/1.73m 2LBUN Creatinine Ratio13.7Bcvyldi2.98.5-10.1 mg/dLNBilirubin Total 1.00.2-1.0 mg/dLNAspartate Amino Pfatuwlkstr5241-91 U/LHAlanine Aminotransferase 4114-59 U/LNAlkaline Oxxsnumdpmp0461-833 U/LNTotal Protein7.96.4-8.2 g/dLN Albumin Level3.33.4-5.0 g/dLLGlobulin4.6Albumin Globulin Ratio0.7Performing Lab: see noteML - [facility] LB Reason For Referral Reason physical therapy Diagnosis 1 Cervicalgia (M54.2) Referral Organization Main Referring Provider First Name Rosa Referring Provider Last Name Thomas Referring Provider Speciality Internal M edicine Referred Provider [facility] PT Vasyl Referred Provider Specialty Physical The rapist General Notes Darion Simon 11/16 10:07:30 AM >referral fax sent, Darion Simon 11/16/2024 04:02:17 PM >8/5 per referral, Ruffing, Matt 11/21/2024 01:24:38 PM >pt called today stating this referral to PT is out of network with her ins. Asked for PT referral to [facility]. I will msg Alberto and ask her to send one in, Darion Simon 12/01/2024 09:18:51 AM >sewnt Referral Priority Routine Referral Appointment Date 11/21/2024 Reason hx of RA of spine pe r pt, no records available. establish care Diagnosis 1 Rheumatoid arthritis (M06.9) Referral Organization Main Referring Provider First Name [facility] Referring Provider Last Name [facility] Referring Provider Speciality Internal M edicine Referred Provider Amanda Mclean Referred Provider Specialty Rheumatology General Notes Darion Simon 11/16 10:05:47 AM >referral fax sent, Darion Simon 11/16/2024 04:24:28 PM >referral refaxxed, Darion Simon 11/22/2024 08:47:34 AM >voice communication sent Referral Priority Routine Reason concern for rheumato id arthritis. Diagnosis 1 Rheumatoid arthritis , involving unspecified site, unspecified whether rheumatoid factor present (M06.9) Referral Organization Main Referring Provider First Name [facility] Referring Provider Last Name [facility] Referring Provider Speciality Internal edicine [facility] Special[facility] Rheumatology General Notes Darion Simon 01/05 08:59:08 AM >referral fax sent Referral Priority Routine Medications Medication SIG (Take, Route, Frequency, Duration) Notes Start Date End Date Status Dapagliflozin Propanediol 10 MG Tablet 1 tablet Orally Once a day ActiveCarvedilol 3.125 MG TabletTAKE 1 TABLET BY MOUTH WITH BREAKFAST & with evening meal with the 6.25 mg tablet Oral; Duration: 30 DaysActiveMagnesium Oxide 400 MG Tablet1 tablet with food Orally Once a dayActivepredniSONE 50 MG Tablet1 tablet with food or milk Orally Once a day; Duration: 5 days11/02/2024 Not-Taking/PRNCarvedilol 6.25 MG Tablet1 tablet with food Orally Twice a day ActiveBumetanide 1 MG TabletOral; Duration: 30 DaysNot-Taking/PRNBumetanide 1 MG TabletOral; Duration: 30 DaysActivemetFORMIN HCl ER 500 MG Tablet Extended Release 24 Hour1 tablet with evening meal Orally Once a day; Duration: 90 days ActiveOzempic (0.25 or 0.5 MG/DOSE) 2 MG/3ML Solution Pen-injector0.25 mg Subcutaneous once a week; Duration: 28 daysActiveAtivan 0.5 MG Tablet1 tablet before MRI Orally once; Duration: 1 days5ActiveAspirin 81 81 MG Tablet Delayed Release1 tablet Orally Once a dayActiveLosartan Potassium 25 MG Tablet1 tablet Orally Once a dayActiveEliquis 5 MG Tabletas directed OrallyActive Bumetanide 1 MG Tablet1 tablet Orally Once a dayActiveSpironolactone 25 MG Tablet1 tablet Orally Once a dayActive Immunizations Vaccine Route Administration Date Status Comme nts Influenza, seasonal, injecta ble, preservative free, 3 yrs and above Unknown 02/19/2025 Administered pneumococcal vaccine, unspecified djdetjompgzIklears44/03/2025AdministeredPCV-21 Social History Tobacco Use: Social History Observation Description Date Details (start date - stop date) Never Smoker NA - NA Sex Assigned At : Social History Observation Description Sex Assigned At Female Social History Social DeterminantsSocial InfoQuestionAnswerNotesPRAPAREDate Completed/Updated: 11/02/2024patient entered dataWhat is your current housing situation?I have housingpatient entered dataAre you worried about losing your housing?No patient entered dataWhat is the highest level of school that you have finished?More than high schoolpatient entered dataWhat is your current work situation?Otherwise unemployed but not seeking work (ex. 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 Check all that applyI choose not to answer this questionHas lack of transportation kept you from medical appointments, meetings, work or from getting things needed for daily living?NoHow often do you see or talk to people that you care about and feel close to? (For example: talkingto friends on the phone, visiting friends or family, going to synagogue or club meetings)Less than once a weekpatient entered dataHow stressed are you? Stress is when someone feels tense, nervous, anxious, or can't sleep at night because their mind is troubledA little bitpatient entered dataIn the past year have you spent more than 2 nights in a row in a fdc, detention, prison center, orjuvenile correctional facility?Nopatient entered dataAre you a refugee?Nopatient entered dataWhat country are you from?[place] patient entered dataDo you feel physically and emotionally safe where you currently live?Yespatient entered dataIn the past year, have you been afraid of your partner or ex-partner?Nopatient entered dataPRAPARE Score:4Limited Patient AuthorizationSocial InfoQuestionAnswerNotesLPAI authorize the following person access to my entire chart or to make inquiries concerning my healthcare. This authorization does NOT include picking up prescriptions and/or medications. I agree to the limited patient authorization for disclosure of protected health information. This authorization expires at the end of the calendar year in which it was signed.Yespatient entered dataPC and UDS DemographicsSocial InfoQuestionAnswerNotesPriw. d. [facility]low [facility] QuestionsDo you have any barriers to learning?Nonepatient entered dataWhat is your preferred method of learning?Readingpatient entered dataHow often do you need to have someone help you read instructions?Neverpatient entered dataDrugs/Alcohol/Caffeine: Social InfoQuestionAnswerNotesCAGE-AID Questionnaire (2018 Edition)Have you ever felt that you ought to cut down on your drinking or drug use?Nopatient entered dataHave people annoyed you by criticizing your drinking or drug use?No patient entered dataHave you ever felt bad or guilty about your drinking or drug use?Nopatient entered dataHave you ever had a drink or used drugs first thing in the morning to steady your nerves or to get rid of a hangover?No patient entered dataCAGE-AID Roctz2JdmhxwnhwbjesqUsecidtxXripcdv Use:Social InfoQuestionAnswerNotesTobacco Use/SmokingTobacco use:nonsmokerpatient entered data Problems Problem Type SNOMED Code ICD Code Onset Dates Problem Status W/U Status Risk Notes Problem Chronic pain (02266365) Other chronic olman n (G89.29) ActiveconfirmedProblemParoxysmal atrial fibrillation (038177346)Paroxysmal atrial fibrillation (I48.0)ActiveconfirmedProblemCervicalgia (85211589) Cervicalgia (M54.2)ActiveconfirmedProblemRheumatoid arthritis (09491657) Rheumatoid arthritis (M06.9)ActiveconfirmedProblemObstructive sleep apnea syndrome (17857502)RAVI (obstructive sleep apnea) (G47.33)ActiveconfirmedProblem Morbid obesity (304400366)Obesity, morbid, BMI 50 or higher (E66.01)Active confirmedProblemChronic systolic heart failure (218256788)Systolic heart failure, chronic (I50.22)ActiveconfirmedProblemRheumatoid arthritis (33978326) Rheumatoid arthritis, involving unspecified site, unspecified whether rheumatoid factor present (M06.9)Activeconfirmed Vital Signs Heart Rate 18 /min 02/19/2025 Carmen Gonsalves 02/19/2025 10:39:13 AM EST > Thomas, Rosa 02/19/2025 10:49:45 AM EST > Temperature 97.8 degrees Fahrenheit 02/19/2025 Carmen Arriola 02/19/2025 10:39:13 AM EST > Thomas, Rosa 02/19/2025 10:49:45 AM EST > Respiratory Rate 81 /min 02/19/2025 Ben Gonsalves 02/19/2025 10:39:13 AM EST > Thomas, Rosa 02/19/2025 10:49:45 AM EST > Height-cm 165.1 cm 02/19/2025 Carmen Gonsalves 02/19/2025 10:39:13 AM EST > Thomas, Rosa 02/19/2025 10:49:45 AM EST > Oximetry 100 % 02/19/2025 Carmen Gonsalves 02/19/2025 10:39:13 AM EST > Thomas, Rosa 02/19/2025 10:49:45 AM EST > Blood pressure diastolic 76 mm Hg 02/19/2025 Carmen Ramirez 02/19/2025 10:39:13 AM EST > Thomas, Rosa 02/19/2025 10:49:45 AM EST > Weight-kg 158.9 kg 02/19/2025 Carmen Gonsalves 02/19/2025 10:39:13 AM EST > Thomas, Rosa 02/19/2025 10:49:45 AM EST > Height 65 in 02/19/2025 Carmen Gonsalves 02/19/2025 10:39:13 AM EST > Thomas, Rosa 02/19/2025 10:49:45 AM EST > Blood pressure systolic 110 mm Hg 02/19/2025 Carmen Arriola 02/19/2025 10:39:13 AM EST > Thomas, Rosa 02/19/2025 10:49:45 AM EST > Weight 350.3 lbs 02/19/2025 Carmen Gonsalves 02/19/2025 10:39:13 AM EST > Thomas, Rosa 02/19/2025 10:49:45 AM EST > BMI 58.29 kg/m2 02/19/2025 Carmen Gonsalves 02/19/2025 10:39:13 AM EST > Thomas, Rosa 02/19/2025 10:49:45 AM EST > Encounters Encounter Location Date Provider Diagnosis [facility] [address] [facility] [place] [id number] 11/02/2024 Rosa Thomas Cervicalgia M54.2 ; Other chronic pain G89.29 ; Heart palpitations R00.2 ; Rheumatoid arthritis M06.9 ; Obesity, morbid, BMI 50 or higher E66.01 ; Dietary counseling Z71.3 and Exercise counseling Z71.82 [facility] [address] [facility] [place] [id number] 12/29/2024 Rosa Thomas Prediabetes R73.03 a nd Cervicalgia M54.2 [facility] [address] [facility] [place] [id number] 01/26/2025 Rosa Thomas Systolic heart failu re, chronic I50.22 ; Prediabetes R73.03 ; Obesity, morbid, BMI 50 or higher E66.01 ; Paroxysmal atrial fibrillation I48.0 and RAVI (obstructive sleep apnea) G47.33 [facility] [address] [facility] [place] [id number] 02/19/2025 Rosa Thomas Encounter for wellne ss examination in adult Z00.00 ; Encounter for screening for HIV Z11.4 ; Encounter for screening mammogram for breast cancer Z12.31 ; Dietary counseling Z71.3 and Exercise counseling Z71.82 [address] [facility] [place] [id number] 11/21/2024 Rosa Thomas [id number] [facility] [facility] [place] [id number]/28/2025Ramsha AqeelRheumatoid arthritis, involving unspecified site, unspecified whether rheumatoid factor present [id number] [facility] [place] [id number]/13/2025Ramsha AqeelMain [address] [facility] [place] [id number]/20/2025Ramsha AqeelMass of upper inner quadrant of right breast [id number] [facility] [id number] 11/22/2024Ramsha Thomas Assessments Encounter Date Diagnosis (ICD Code) Assessment Notes Treatment Notes Treatment Clinical Notes Section Notes 12/29/2024 Prediabetes (ICD-10 - R73.03) A1c 6.2 stable in prediabetic range. Given her weight heart disease she would benefot from GLP1. I will get her records from [facility] and depending on those will consider starting GLP1. PT agreeswith the plan. Continue with diet and exercise.01/26/2025Systolic heart failure, chronic (ICD-10 - I50.22)Managed by vawpeblzhc28/20/2025Mass of upper inner quadrant of right breast (ICD-10 - N63.12)12/14/2024Rheumatoid arthritis, involving unspecified site, unspecified whether rheumatoid factor present (ICD-10 - M06.9)11/02/2024ervicalgia (ICD-10 - M54.2) Chronic pain. Given hx of RA will do steroid course to help inflammation. Also advise physical therapy, referral placed. Patient was advised to use ice and moist heat as needed. In case of pain, use Tylenol Arthritis 650 mg TID or Motrin 800mg TID PRN - pt was advised to stay hydrated and not take these empty stomach and PVU. Pt was advised to alternate NSAIDs and tylenol to break the cycle of pain. 11/02/2024Other chronic pain (ICD-10 - G89.29)02/19/2025Encounter for screening for HIV (ICD-10 - Z11.4)decline by pt02/19/2025Encounter for wellness examination in adult (ICD-10 - Z00.00) Pt is here for wellness today. Overall health is okay. I advised regular exercise and eating a balanced diet with focus on eating less fried and fatty foods and eating more fresh fruits and vegetable in an attempt to achieve and maintain a healthy BMI and PVU We discussed the importance of vaccination including covid shots and yearly flu shots and all questions were answered in detail today. 12/29/2024ervicalgia (ICD-10 - M54.2)Since pain is better and I dont think xray will show anything signficant. Advise to discuss with bank appraiser for further imaging. Pt [id number]/26/2025Prediabetes (ICD-10 - R73.03)01/26/2025 Obesity, morbid, BMI 50 or higher (ICD-10 - E66.01) given her heart hx, prediabetes and RAVI she will benefit from ozempic for her weight. I will start lowest dose and go up on dose every 4 week to reach maintenance dose. SI discussed. f/u in 4 weeks 02/19/2025Encounter for screening mammogram for breast cancer (ICD-10 - Z12.31) 11/02/2024Heart palpitations (ICD-10 - R00.2)Already has appt with pig caster and currently wearing heart monitor. Discussed reassuring vs nonreassuring symptoms and when to call the office or go to ER. PVU11/02/2024Rheumatoid arthritis (ICD-10 - M06.9)She has a hx of RA but currently not seeing anyone. I will refer to bank appraiser to establish care02/19/2025Dietary counseling (ICD- 10 - Z71.3)01/26/2025Paroxysmal atrial fibrillation (ICD-10 - I48.0)01/26/2025 RAVI (obstructive sleep apnea) (ICD-10 - G47.33)02/19/2025Exercise counseling (ICD-10 - Z71.82)11/02/2024Obesity, morbid, BMI 50 or higher (ICD-10 - E66.01) 11/02/2024Dietary counseling (ICD-10 - Z71.3)11/02/2024Exercise counseling (ICD- 10 - Z71.82) Plan Of Treatment Pending Test Test Name Order Date Ultrasound : Breast, right 03/08/2025 BASIC METABOLIC PANEL WITH GFR MAMM DIAGNOSTIC UNILAT RT W CAD 03/08/20 Next Appt Details Provider Name:Rosa Thomas, 03/19/2025 10:30:00 AM, [address] [place], [place], [id number], Insurance Providers Payer Name Payer Address Payer Phone Subscriber Number Group Number Insured Name Patient Relationship to Insured Coverage Start Date Coverage End Date [email or web address] [address] [address] [place] [address] [id number] Self - patient is the insured 5 Medical (General) History Medical History History ICD Code RA of spine Back painPrediabetesHeart failureAtrial fibrillation s/p ablationSurgical History Surgery Date(Month/Year) c section hysterectomybilateral knee replacements2 ablations on heartheart monitor- implantedHospitalization History Reason Date(Month/Year) [facility] 2022 see surgical hx
--- OUTSIDE RECORDS SUMMARY | 2025-03-09 08:37 | XMS_ITS | CCD ---
Author Organization [facility] Care Team Providers Care Pedal Assembler Name Role Phone Hans Whiteside Attending Unavailable [...] Rafael Pickard MD Attending Unavailable Mekhi WOOD, [facility] Unavailable Rafael Pickard MD Attending Unavailable Mekhi WOOD, Rosa Referring Unavailable Mekhi WOOD, [facility] Unavailable Rafael Pickard MD Attending Unavailable Mekhi WOOD, [facility] Unavailable NICOLASA CRONIN Referring [...] Facility (7 sources)Penicillins; Translations: [PENICILLINS]Drug allergy (disorder) 53-20-3102HqxiaQvxProtestant [facility]aconess Hospital Rep[facility] (12 sources)Ciprofloxacin; Translations: [CIPROFLOXACIN]Drug Ncmmbgm96-22-2916 Comment:nausea and diarrheaDayton Osteopathic Hospital (11 sources)Penicillin GDrug Uopebxh56-62-5921revueApyjzggqyMercy Health [facility] (12 sources)traMADol; Translations: [TRAMADOL]Drug Ggsijaq30-44-8380AowebfvTriHealth (6 sources)Substance with penicillin structure and antibacterial mechanism of action (substance)Drug gjgxjyg23-52-8258XgjlbfsZryyh [employer] Other (6 sources)patient allergy list reviewed by nurse or physiciaPropensity to adverse nkrsquskk94-21-1053Qutrcrf:[employer] Other (6 sources)TraMADol & Dietary Manage Prod *ANALGESICS - OPIOIPropensity to adverse -42-2311OspwkklUofmsWellpepper Other (6 sources)Allergies ReconciledPropensity to adverse reactions[employer] Other (1 source)Penicillin; Translations: [penicillin]Drug AllergyMadison Health Repository (1 source)diphenhydrAMINE; Translations: [DIPHENHYDRAMINE]Drug Vrrbesy29-33-0529 [facility] Repository Medications Current Medications MedicationDrug Class(es)DatesSig (Normalized)Sig (Original)apixaban 5 mg oral tablet (15 sources)Factor Xa InhibitorStart: 06-18-2023 End: 97-64-2257osas 1 tablet by mouth in the morningapixaban (Eliquis) 5 MG tablet Take 5 mg by mouth in the morning and 5 mg in the evening. 12/21/2023 12/15/2024 Activetake 1 tablet by mouth twice dailyApixaban 5 MG 1 tablet Orally Twice a day Activeaspirin 81 mg delayed release oral tablet (10 sources)Platelet Aggregation Inhibitor, Nonsteroidal Anti-inflammatory Drug Start: 46-81-8743uvgj 81 mg by mouth twice dailyAspirin Active 81 MG PO Twice daily 40 July 14, 2018 12:00amStart: 06-22-2018 End: 53-43-9794uage 81 mg by mouth once dailyAspirin Discontinued 81 MG PO Daily June 22, 2018 1:00am July 14, 2018 12:23pmASPIRIN 81 MG - this medication is not being screened (6 sources)Start: 39-39-1433OFRNSNP 81 MG - this medication is not being screened ASPIRIN 81 MG - this medication is not being screened( ) Active -Hx Entry for 0 *Reorder from [employer] for eRx and Interaction Alerts* Feb, Activebenzonatate 100 mg oral capsule (6 sources)Non-narcotic AntitussiveStart: 49-03-8939vzci 1 capsule by mouth three times daily as neededTessalon Perles 100 MG 1 capsule as needed Orally Three times a day for 7 days Feb, ActiveStart: 11-80-2689Vgdhgyyswlg 200 MG benzonatate 200mg, 1 Capsule 2 to 3 times per day;cough # 30, 01/26/2022, No Refill. Active Oral 2 to 3 times per day;cough for 0 Jan, Active bumetanide 1 mg oral tablet (20 sources)Loop DiureticStart: 06-18-2023 End: 52-95-0582ryjd 1 mg by mouth once dailyBumetanide Active 1 MG PO Daily August 12, 2023 12:00amcarvedilol 6.25 mg oral tablet (15 sources)alpha-Adrenergic Kayli, beta-Adrenergic BlockerStart: 06-18-2023 take 6.25 mg by mouth twice dailyCarvedilol Active 6.25 MG PO Twice daily June 18, 2023 1:00amdapagliflozin 10 mg oral tablet (15 sources)Sodium-Glucose Cotransporter 2 InhibitorStart: 06-18-2023 End: 41-40-6261vjnjktajehbxm (Farxiga) 10 MG Take 10 mg by mouth 12/21/2023 12/20/2024 Activetake 1 tablet by mouth once dailyDapagliflozin Propanediol 10 MG 1 tablet Orally Once a day Activedoxycycline hyclate 100 mg oral tablet (1 source)Tetracycline-class DrugStart: 81-45-8115kiex 100 mg by mouth twice dailyDoxycycline Hyclate Active 100 MG PO Twice daily February 01, 2024 12:00amlosartan potassium 25 mg oral tablet (11 sources)Angiotensin 2 Receptor BlockerStart: 67-43-4667mfcg 25 mg by mouth once dailyLosartan Active 25 MG PO Daily October 14, 2023 12:00ammagnesium oxide 400 mg oral tablet (15 sources)Start: 50-41-3683bvxp 1 tablet by mouth in the morningmagnesium oxide (Mag-Ox) 400 (240 Mg) MG tablet Take 400 mg by mouth in the morning and 400 mg before bedtime. 09/14/2024 ActiveStart: 30-69-3127hbmv 400 mg by mouth once dailyMagnesium Oxide Active 400 MG PO Daily June 18, 2023 1:00amtake 1 tablet by mouth every twenty-four hoursMagnesium Oxide 400 MG 1 tablet as needed Orally Once a day Activemetoprolol tartrate 50 mg oral tablet (19 sources)beta-Adrenergic BlockerStart: 24-94-4151ucop 1 tablet by mouth once dailyMetoprolol Succinate ER 50MG Metoprolol Succinate ER 50MG, 1 (one) Tablet Tablet daily # 0, 09/02/2021, No Refill. Active Oral daily for 0 *Pick strength- form from [employer] for eRX* August, ActiveStart: 07-14-2018 End: 52-12-1410zedf 50 mg by mouth every twelve hoursMetoprolol Tartrate Discontinued 50 MG PO Q12H 60 July 14, 2018 12:00am June 18, 2023 3:38pm Start: 06-22-2018 End: 28-74-2146aaas 50 mg by mouth once daily in [...] ActivepredniSONE 20 mg oral tablet (3 sources)Start: 18-46-4019ykrn 1 tablet by mouth every twelve hoursprednisone 20 MG 1 tablet Orally BID for 5 17 Feb, 2023 Activespironolactone 25 mg oral tablet (15 sources)Aldosterone AntagonistStart: 51-57-9475knne 25 mg by mouth once dailySpironolactone Active 25 MG PO Daily June 18, 2023 1:00amsulfamethoxazole 800 mg / trimethoprim 160 mg oral tablet (3 sources)Dihydrofolate Reductase Inhibitor Antibacterial, Sulfonamide AntimicrobialStart: 08-72-8787lzmc 1 tablet by mouth twice daily Sulfamethoxazole-Trimethoprim 800-160 MG sulfamethoxazole-trimethoprim 800- 160mg, 1 (one) Tablet two times daily # 20, 01/20/2022, No Refill. Active Oral two times daily for 0 04 Jan, 2022 Active Completed/Discontinued Medications MedicationDrug Class(es)DatesSig (Normalized)Sig (Original)acetaminophen 325 mg oral tablet (5 sources)Start: 07-14-2018 End: 25-32-1904gidk 650 mg by mouth every four hoursAcetaminophen Discontinued 650 MG PO Q4H 0 July 14, 2018 12:00am June 18, 2023 3:36pmamiodarone hydrochloride 400 mg oral tablet (12 sources)AntiarrhythmicStart: 10-14-2023 End: 43-21-7801emaz 200 mg by mouth once dailyAmiodarone Discontinued 200 MG PO Daily October 14, 2023 9:42am February 14, 2024 10:08amStart: 06-18-2023 End: 38-53-5269lfgg 400 mg by mouth once dailyAmiodarone Discontinued 400 MG PO Daily June 18, 2023 1:00am October 14, 2023 9:42amtake 1 tablet by mouth every twenty-four hoursAmiodarone HCl 400 MG 1 tablet Orally Once a day Active amitriptyline hydrochloride 25 mg oral tablet (6 sources)Tricyclic AntidepressantStart: 22-00-5018Gtlmjlkoybkzv HCl 25MG Amitriptyline HCl 25MG, 1 (one) Tablet Tablet at bedtime # 30, 09/17/2021, No Refill. Active Oral at bedtime for 0 *Pick strength-form from [employer] for eRX* Sep, Not-Taking/PRNtake 1 tablet by [...] oral capsule (5 sources)Cephalosporin AntibacterialStart: 01-24-2024 End: 59-36-0543fthr 500 mg by mouth three times dailyCephalexin Discontinued 500 MG PO Three times daily 06 11January 24, 2024 12:00am February 01, 2024 4:25pmStart: 18-39-1321wppu 1 capsule by mouth every eight hoursCephalexin 500 MG 1 capsule Orally three times a day for 10 day(s) Sep, Not-Taking/PRN diclofenac sodium 75 mg delayed release oral tablet (19 sources)Nonsteroidal Anti-inflammatory DrugStart: 06-18-2023 End: 95-12-3714wsnc 75 mg by mouth twice dailyDiclofenac Sodium Discontinued 75 MG PO Twice daily June 18, 2023 1:00am October 14, 2023 9:42amStart: 11-27-2021 take 1 tablet by mouth twice dailyDiclofenac Sodium 75MG Diclofenac Sodium 75MG, 1 Tablet Tablet twice a day # 0, 11/27/2021, No Refill. Active Oral twice a day for 0 *Pick strength-form from [employer] for eRX* Nov, ActiveStart: 06-22-2018 End: 16-65-7679faiv 75 mg by mouth once daily in the morningDiclofenac Sodium Discontinued 75 MG PO Every morning June 22, 2018 1:00am July 14, 2018 12:23pmtake 1 tablet by mouth twice daily at mealtimeDiclofenac Sodium 75 MG TAKE 1 TABLET BY MOUTH TWICE DAILY WITH FOOD for 90 Not-Taking/PRNdocusate sodium 100 mg oral capsule (5 sources)Start: 07-14-2018 End: 30-81-8584uddr 100 mg by mouth twice dailyDocusate Sodium Discontinued 100 MG PO Twice daily July 14, 2018 12:00am June 18, 2023 3:38pm0.4 ml enoxaparin sodium 100 mg/ml prefilled syringe (5 sources)Low Molecular Weight HeparinStart: 07-06-2018 End: 15-82-8379Mftkliabvw (Lovenox) 40 mg/0.4 mL Syringe Discontinued 40 MG SUBCUT Every 12 hours at 1000 & 2200 July 06, 2018 12:00am July 14, 2018 12:23pmhydrOXYzine pamoate 50 mg oral capsule (10 sources)AntihistamineStart: 07-06-2018 End: 85-61-3629pjrz 25 mg by mouth every three hoursHydroxyzine Pamoate Discontinued 25 MG PO Q3H July 06, 2018 12:00am July 14, 2018 12:24pm Start: 07-06-2018 End: 83-06-4054oqvg 50 mg by mouth every three hoursHydroxyzine Pamoate Discontinued 50 MG PO Q3H July 06, 2018 12:00am July 14, 2018 12:23pm Ketorolac (12 sources)Nonsteroidal Anti-inflammatory Drug, Cyclooxygenase InhibitorStart: 10-78-7141Qltuvvo per 15 mg May, 30 mgStart: 64-19-2470Kyifpft per 15 mg Oct, 30 mg24 hr metFORMIN hydrochloride 500 mg extended release oral tablet (20 sources)BiguanideStart: 06-18-2023 End: 22-82-7194scib 500 mg by mouth once daily in the eveningMetformin Discontinued 500 MG PO Every evening 90 December 07, 2023 8:39am December 07, 2023 8:40amStart: 35-95-3077zbki 1 tablet by mouth once daily in the evening Metformin 500mg metFORMIN 500mg, 1 (one) Tablet every evening # 0, 03/16/2022, No Refill. Active oral every evening for 0 *Reorder from [employer] for eRx and Interaction Alerts* Feb, Activetake [...] mg oral tablet (5 sources)CorticosteroidStart: 12-16-2023 End: 72-59-6280vyqt 1 tablet by mouth onceMethylprednisolone (Medrol (Eric)) 4 mg tablets,dose pack Discontinued 0 PO per package directions December 28, 2023 2:58pm January 24, 2024 10:03am PO PER PKG DIR for 6 daysmidodrine hydrochloride 5 mg oral tablet (5 sources)alpha-Adrenergic AgonistStart: 06-21-2023 End: 86-64-6914lqcd 1 dose by mouth once daily at bedtimeMidodrine Discontinued 5 MG PO Three times daily June 21, 2023 1:00am August 12, 2023 11:11am donot give last dose of day after 6PM or within 4 hrs of bedtimeMultivitamin (Multiple Vitamins) Tablet (5 sources)Start: 06-22-2018 End: 20-34-7311fecp 1 tablet by mouth once dailyMultivitamin (Multiple Vitamins) Tablet Discontinued 1 TAB PO Daily June 22, 2018 1:00am July 14, 2018 12:27pmMultivitamin With Folic Acid (Thera) 400 mcg Tablet (5 sources)Start: 07-14-2018 End: 29-85-7356prww 1 tablet by mouth once dailyMultivitamin With Folic Acid (Thera) 400 mcg Tablet Discontinued 1 TAB PO Daily July 14, 2018 12:00am June 18, 2023 3:38pmoxyCODONE hydrochloride 5 mg oral tablet (20 sources)Opioid AgonistStart: 07-14-2018 End: 64-93-5086istv 5 mg by mouth every six hoursOxycodone Discontinued 5 MG PO Every 6 hours 05 09July 14, 2018 12:00am June 18, 2023 3:38pmStart: 07-06-2018 End: 10-42-4514lmec 10 mg by mouth every four hoursOxycodone Discontinued 10 MG PO Every 4 hours July 06, 2018 2:17pm July 14, 2018 12:27pmStart: 07-06-2018 End: 13-10-8417rsvu 5 mg by mouth every four hoursOxycodone Discontinued 5 MG PO Every 4 hours July 06, 2018 2:17pm July 14, 2018 12:28pmsacubitril 24 mg / valsartan 26 mg oral tablet (8 sources)Angiotensin 2 Receptor BlockerStart: 06-18-2023 End: 74-69-8023kjzy 1 tablet by mouth twice dailySacubitril-Valsartan (Entresto) 24-26 mg tablet Discontinued 1 TAB PO Twice daily June 18, 2023 1:00am August 12, 2023 11:12amtake 1 tablet by mouth every twelve hoursEntresto 24-26 MG 1 tablet Orally Twice a day ActiveTriamcinolone (12 sources)CorticosteroidStart: 22-29-4320Doebbmn -40 mg May, 40 mg Start: 08-68-9334FSUJYKG - 10 mg Oct, 40 mgvitamin b12 1 mg oral tablet (13 sources)Vitamin Q98Vkszj: 06-22-2018 End: 07-96-2806tfbf 1000 ug by mouth once dailyCyanocobalamin (Vitamin [...] renal failure syndrome; Translations: [Acute kidney failure, unspecified]20-34-6095GvpdmqpyMgpct bronchitis (12 sources)Acute bronchitis; Translations: [Acute bronchitis due to other specified organisms]EpisodicAdministrative/social admission (5 sources)Other reduced mobility; Translations: [Impaired mobility and activities of daily living]73-61-3231KtedhelqSfwrdkj dysrhythmias (20 sources)Premature beats; Translations: [Other premature beats]Onset: 54-76-1623YkodklyEgatteg dysrhythmias (4 sources)Palpitations; Translations: [Palpitations]Onset: 11-76-5043Zjerhbkd Chronic obstructive pulmonary disease and bronchiectasis (6 sources)Bronchitis; Translations: [Bronchitis, not specified as acute or chronic]EpisodicCoagulation and hemorrhagic disorders (11 sources)Immune thrombocytopenic purpura; Translations: [Immune thrombocytopenic purpura]33-23-5087ZdyiquzXoddtdazmz associated with dizziness or vertigo (2 sources)Dizziness; Translations: [Dizziness]Onset: 94-28-6307Mlklsedw Conduction disorders (7 sources)Left bundle-branch block, unspecified; Translations: [Left bundle branch block]Onset: 78-48-1887KxuuhywJoqcuthtzi heart failure; nonhypertensive (10 sources)Congestive heart failure; Translations: [Heart failure, unspecified] Onset: 22-66-0695QrkmllsFlevoeymib and other anemia (11 sources)Anemia; Translations: [Anemia, unspecified]Onset: 07-29-2018 53-94-5702ZrdsssbhEwndixaf mellitus with complications (17 sources)Hyperglycemia due to type 2 diabetes mellitus; Translations: [Type 2 diabetes mellitus with hyperglycemia]61-90-9525CngchysYilfssly mellitus without complication (6 sources)Impaired fasting glycemia; Translations: [Impaired fasting glucose] EpisodicEssential hypertension (20 sources)Essential hypertension; Translations: [Essential (primary) hypertension]Onset: 99-84-4678LgtrujsQtezf and electrolyte disorders (5 sources)Hypokalemia; Translations: [Hypokalemia]66-03-9404Pmhkaita Genitourinary symptoms and ill-defined conditions (6 sources)Finding of frequency of urination; Translations: [Frequency of micturition]EpisodicHypertension with complications and secondary hypertension (2 sources)Hypertensive heart disease with heart failure; Translations: [Hypertensive heart disease with heartfailure]Onset: 39-79-2049GakyqehOgdupgn and fatigue (2 sources)Fatigue; Translations: [Fatigue]Onset: 58-93-6509FosenopdGwuzyky (4 sources)Pain in toe; Translations: [Tinea unguium]80-76-3453Wyrboxcj Osteoarthritis (20 sources)Osteoarthritis; Translations: [Unspecified osteoarthritis, unspecified site]Onset: 15-35-9156TqgntkuXvbtq circulatory disease (2 sources)Presence of other cardiac implants and grafts; Translations: [Presence of other cardiac implants and grafts]Onset: 55-02-2271GgplprsPelra circulatory disease (6 sources)Elevated blood-pressure reading without diagnosis of hypertension; Translations: [Elevated blood-pressure reading, without diagnosis of hypertension]EpisodicOther connective tissue disease (11 sources)History of total knee arthroplasty; Translations: [Presence of right artificial knee joint]57-23-5487QfyouaaCttfw connective tissue disease (6 sources)Pain in limb; Translations: [Pain in right finger(s)]EpisodicOther connective tissue disease (1 source)Pain in left foot; Translations: [Pain in limb]23-14-0774ZlnenvaoBlhga connective tissue disease (2 sources)Swelling of right lower limb; Translations: [Other specified soft tissue disorders]18-08-2266ExtmkeupFhmph connective tissue disease (2 sources)Other specified soft tissue disorders; Translations: [Swelling of limb]07-46-1600VkcwmrpcCmbbi diseases of bladder and urethra (11 sources)Overactive bladder; Translations: [Overactive bladder]Onset: 044565-66-0309GqjkwykJaedm diseases of veins and lymphatics (4 sources)Vascular insufficiency; Translations: [Venous insufficiency (chronic) (peripheral)]95-36-6826LcknumsxKkdct gastrointestinal disorders (6 sources)Irritable bowel syndrome with diarrhea; Translations: [Irritable bowel syndrome with diarrhea]ChronicOther gastrointestinal disorders (6 sources)Diarrhea; Translations: [Diarrhea, unspecified]EpisodicOther nervous system disorders (5 sources)Postoperative pain ; Translations: [Other acute postprocedural pain] 92-29-4727WebgngivTravt nutritional; endocrine; and metabolic disorders (6 sources)Morbid obesity; Translations: [Morbid (severe) obesity due to excess calories]Onset: 74-28-6371IrovkzlCypip nutritional; endocrine; and metabolic disorders (17 sources)Body mass index 40+ - severely obese; Translations: [Body mass index (BMI) 60.0-69.9, adult]75-45-9601ZdcmivkVundk screening for suspected conditions (not mental disorders or infectious disease) (18 sources)Abnormal electrocardiogram [ECG] [EKG]; Translations: [Other abnormal and inconclusive findings on diagnostic imaging of breast]Onset: 30-67-3221AgsnfnihFpsal upper respiratory disease (6 sources)Seasonal allergic rhinitis; Translations: [Other seasonal allergic rhinitis]Onset: 14-41-5583NpeohxhBfcke upper respiratory disease (6 sources)Allergic rhinitis; Translations: [Allergic rhinitis, unspecified] ChronicOther upper respiratory infections (6 sources)Sinusitis; Translations: [Chronic sinusitis, unspecified]ChronicPeri- ; endo-; and myocarditis; cardiomyopathy (except that caused by tuberculosis or sexually transmitted disease) (2 sources)Cardiomyopathy in diseases classified elsewhere; Translations: [Cardiomyopathy in diseases classified elsewhere]Onset: 74-98-0339Wslpiwh Phlebitis; thrombophlebitis and thromboembolism (5 sources)H/O: Deep vein thrombosis; Translations: [Personal history of other venous thrombosis and embolism]75-76-7552SshzevzjHvolvozp codes; unclassified (14 sources)Obstructive sleep apnea syndrome; Translations: [Obstructive sleep apnea (adult) (pediatric)]Onset: 885991-62-0902VckmpbqYjjksssq codes; unclassified (1 source)Obstructive sleep apnea (adult) (pediatric)ChronicResidual codes; unclassified (6 sources)Family history of diabetes mellitus; Translations: [Family history of diabetes mellitus]EpisodicResidual codes; unclassified (6 sources)Localized edema; Translations: [Localized edema]EpisodicSkin and subcutaneous tissue infections (12 sources)Localized infection of skin AND/OR subcutaneous tissue; Translations: [Unspecified local infection of skin and subcutaneous tissue] Onset: 25-71-8474GprrcgjvXifsavditzm; intervertebral disc disorders; other back problems (13 sources)Low back pain; Translations: [Lumbago]Onset: EpisodicUnclassified (3 sources)Other ventricular tachycardia; Translations: [Other ventricular tachycardia] Past or Other Problems Problem ClassificationProblemDateDocumented DateEpisodic/ChronicNonspecific chest pain (6 sources)Chest pain; Translations: [Chest pain, unspecified]Onset: 06-25-2015 EpisodicOther circulatory disease (2 sources)Personal history of other diseases of the circulatory system; Translations: [Personal history of other diseases of the circulatory system] Onset: 18-28-9066PtoamcedThcap gastrointestinal disorders (4 sources)Diarrhea, unspecified; Translations: [DIARRHEA UNSPECIFIED]Onset: 44-83-7598NmrldbbuIfjoh liver diseases (6 sources)Elevated levels of transaminase & lactic acid dehydrogenase; Translations: [Nonspecific elevation of levels of transaminase or lactic acid dehydrogenase (LDH)]Onset: 25-19-3949DmynqxubKpthc non-traumatic joint disorders (6 sources)Arthralgia of the ankle and/or foot; Translations: [Pain in joint, ankle and foot]Onset: 26-64-9522DrpqefxkGqivl non-traumatic joint disorders (6 sources)Arthralgia of the lower leg; Translations: [Pain in joint, lower leg] Onset: 45-73-0732XjugcnxkTfput upper respiratory infections (6 sources)Acute maxillary sinusitis; Translations: [Acute recurrent maxillary sinusitis]Onset: 71-56-6171DzhckqjfZbgobbqq codes; unclassified (2 sources)Other specified postprocedural states; Translations: [Other specified postprocedural states]Onset: 68-71-0416OufismvyPynxirlupeji (1 source)Contact with and (suspected) exposure to covid-19 Z20.822Unclassified (5 sources)Lack of stamina; Translations: [Impaired endurance]85-02-1175Cwnqr infection (1 source)COVID-19 Results Test NameValueInterpretationReference RangeFacilityOffice Visiton 02-20-2025 Follow-up [id number] Fern Cardoso 1960 F Date Provider Department Center 02/20/2025 Yoana-NICOLASA CRONIN ELAINE [facility] Family History Problem Relation Age of Onset Heart attack Mother Stroke Mother Atrial fibrillation Father Heart attack Brother Stroke Brother Family Status - Relation Status Age at Mother Father Brother Level of Service:50945 [facility] OFFICE/OUTPATIENT ESTABLISHED LOW [facility] 20 MIN Reason for Visit and Comments: Follow-up [672083] - Patient is here today for a 3 month follow up. Patient states she feels ok. Patient denies chest pain, Patient complains of increase in dizziness/lightheaded, palpitation/racing heart which has decrease with the increase in carvedilol with position changes, neck and back pain. Congestive Heart Failure [127] Atrial Fibrillation [80] Hypertension [763848] Dizziness [083888] - Increased dizziness/light headed with position changes Fatigue [46] - Increased in fatigue Palpitations [532949]NormalAvita Health System Galion HospitalHLA X02-Lejpqq 61-45-8038ZZO B27 Intrp-MayoSEE BELOWNormalMadison HealthComment on above:Result Comment: RESULT: HLA-B27 antigen was not detected. ADDITIONAL INFORMATION Method: Flow Cytometry CLIA: [id number] CLIA Gastroenterology Technician: LINDEN DUNCAN,Ph.D. Test Performed by: [address] [address] Gastroenterology Technician: Linden Duncan Ph.D.; CLIA# [id number] By: #### HLA M05-Uged #### [place], [place] [address]HLA E70-WiqhTvbkedksVnpvepVft ApplicableMadison HealthComment on above:Performed By: #### HLA R56-Cxui #### [address] [address]Ehszrvdnfzba Office/Clinic Noteon 24-77-3936Vzoinqkgpqxh Office/Clinic NoteChief Complaint neck pain, lower back [...] facilitate the conversation. 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 Explain if yes: [_] History of unusual rashes ([_]) - were any seen by a air crew officer or biopsied by any provider? ([_]) History [...] Skin: Nailfold capillar (more content not included)...NormalBlanchard Blanco Health SystemANA Xqa-9-Decbsu 79-13-4501RUN Cytoplasmic Pattern-MayoNot ReportedNormal [facility] Health SystemComment on above:Performed By: #### Antinuclear Antibody HEp-2 Substrate-May #### [facility] [address] [place], [place] [address]HDA Lab Comment-MayoNot ReportedNormalBlmanhattan psychiatric centerard Blanco Health SystemComment on above:Performed By: #### Antinuclear Antibody HEp-2 Substrate- May #### [facility] [address] [place], [place] [address]KCA Pattern (2)-MayoNot ReportedNormalBlmanhattan psychiatric centerard Blanco Health SystemComment on above:Performed By: #### Antinuclear Antibody HEp-2 Substrate- May #### [facility] [address] [place], [place] [address]SJV Pattern-MayoNot ReportedNormalKettering Health Main Campus Health SystemComment on above:Performed By: #### Antinuclear Antibody HEp-2 Substrate- May #### [facility] [address] [place], [place] [address]EEQ Titer (2)-MayoNot ReportedNormalKettering Health Main Campus Health SystemComment on above:Performed By: #### Antinuclear Antibody HEp-2 Substrate- May #### [facility] [address] [place], [place] [address]HQC Titer-MayoNot ReportedNormalKettering Health Main Campus Health SystemComment on above:Performed By: #### Antinuclear Antibody HEp-2 Substrate- May #### [facility] [address] [place], [place] [address]VNr-8 ILSA-MayoSEE BELOWNormal<1:80 (Negative)[facility] Health SystemComment on above:Result Comment: RESULT: <1:80 (Negative) ADDITIONAL INFORMATION Method: Immunofluorescence using HEp-2 cellular substrate. Test Performed by: [facility] [address] [place] [id number] Gastroenterology Technician: Linden Duncan Ph.D.; CLIA# [id number] By: #### Antinuclear Antibody HEp-2 Substrate-May #### [facility] [address] [place], [place] [address]MRF Ab-[facility] [phone] Ab-Reece<15.6Normal<20.0 (Negative)Madison HealthComment on above:Result Comment: Interpretation: Antibodies to CCP not detected. If clinical symptoms are strongly indicative for rheumatoid arthritis, suggest testing for Rheumatoid Factor, S (RHUT) and, if positive, Rheumatoid Factor Panel, S (RFPN), which includes differentiation of rheumatoid factor IgM and IgA isotypes. Test Performed by: [facility] [place] [address] Gastroenterology Technician: Linden Duncan Ph.D.; CLIA# [id number] By: #### Cyclic Citrullinated Peptide Antibody-Ma #### [facility] [address] [place], [place] [address]PZ-O and SS-B Ab, S-[facility] [id number]-A/Ro IgG-Reece<0.2 Normal<1.0 (Negative)Madison HealthComment on above:Performed By: #### CD:[id number] #### [facility] [address] [place], [place] [address]XB-Z/La IgG-Reece<0.2Normal<1.0 (Negative)Madison HealthComment on above:Result Comment: Test Performed by: [facility] [place] [address] Gastroenterology Technician: Linden Duncan Ph.D.; CLIA# [id number] By: #### CD:[id number] #### [facility] [address] [place], [place] [address]Hmepizgbex Factor, Serumon 61-51-9815Kegdofhqat Factor,Serum <10.3Cqrnii9.0-14.0Madison HealthComment on above:Performed By: #### CD:[id number] #### [address] [address]DJNdk 25-56-9957FUS [Mass/Vol]2.0 mg/LNormal0.0-9.9BKettering Health PrebleComment on above:Result Comment: For normal applications of [...] FUTURE CARDIAC EVENTS.Performed By: #### CRP #### [address] [address]AUJsc 62-33-0373Bsa Rate41 mm/hrHigh0-30Madison HealthComment on above:Performed By: #### ESR #### [address] [address]Kditrx Onlyon 12-11-2337Ulhhof [id number] Fern Cardoso A 1960 F Date Provider Department Center 01/05/2025 [id number], HISTORICAL CARD [facility] Family History Problem Relation Age of Onset Heart attack Mother Stroke Mother Atrial fibrillation Father Heart attack Brother Stroke Brother Family Status - Relation Status Age at Mother Father Brother DeceasedNormalUniUniversity Hospitals Samaritan Medical CenterOrders Onlyon 17-10-4583Sfirgh [id number] TristanFern A 1960 F Date Provider Department Center 01/04/2025 [id number] REINOSO [facility] Family History Problem Relation Age of Onset Heart attack Mother Stroke Mother Atrial fibrillation Father Heart attack Brother Stroke Brother Family Status - Relation Status Age at Mother Father Brother DeceasedNormalUniUniversity Hospitals Samaritan Medical CenterOrders Onlyon 91-02-5627Mzoeai [id number] TristanFern A 1960 F Date Provider Department Center 12/02/2024 [id number] REINOSO H[facility] CARD [facility] Family History Problem Relation Age of Onset Heart attack Mother Stroke Mother Atrial fibrillation Father Heart attack Brother Stroke Brother Family Status - Relation Status Age at Mother Father Brother DeceasedNoalUFulton County Health CenterOffice Visiton 10-71-6230Hfxngm-up [id number] Fern Cardoso A 1960 F Date Provider Department Center 11/29/2024 BENY LAZAR CARD [facility] Family History Problem Relation Age of Onset Heart attack Mother Stroke Mother Atrial fibrillation Father Heart attack Brother Stroke Brother Family Status - Relation Status Age at Mother Father Brother Level of Service:01871 [place] OFFICE/OUTPATIENT ESTABLISHED MOD MDM 30 MIN Reason for Visit and Comments: Congestive Heart Failure [127] Atrial Fibrillation [80] Hypertension [478939][facility] HospitalOrders Onlyon 88-83-0721Qfhlpm [id number] CardosoFern briggs A 1960 F Date Provider Department Center 10/28/2024 NICOLASA WILLIS HVC CARD [place] [facility] Family History Problem Relation Age of Onset Heart attack Mother Stroke Mother Atrial fibrillation Father Heart attack Brother Stroke Brother Family Status - Relation Status Age at Mother Father BrotherNoUniversity Hospitals Conneaut Medical CenterOffice Visiton 09-50-9331Ukanzd- up [id number] Fern Cardoso A 1960 F Date Provider Department Center 06/09/2024 [id number] CROFT CARD [facility] Family History Problem Relation Age of Onset Heart attack Mother Stroke Mother Atrial fibrillation Father Heart attack Brother Stroke Brother Family Status - Relation Status Age at Mother Father Brother Level of Service:10900 [facility] OFFICE/OUTPATIENT ESTABLISHED LOW MDM 20 MINNormal [facility] HospitalOrders Onlyon 41-54-4376Izomlp [id number] TristanFern A 1960 F Date Provider Department Center 06/09/2024 [id number] CROFT HVC CARD [facility] Family History Problem Relation Age of Onset Heart attack Mother Stroke Mother Atrial fibrillation Father Heart attack Brother Stroke Brother Family Status - Relation Status Age at Mother Father BrotherNormalUFulton County Health CenterOrders Onlyon 72-13-4577Quxtlp [id number] Cardoso,Fern A 1960 F Date Provider Department Center 05/15/2024 NICOLAS JEFFREY CARD [facility] Family History Problem Relation Age of Onset Heart attack Mother Stroke Mother Atrial fibrillation Father Heart attack Brother Stroke Brother Family Status - Relation Status Age at Mother Father BrotherNormalUniversity of Texas Health Southwest Fort WorthBasophils Auto (Bld) [#/Vol]on 39-05-2936Eyizxzfyw (Bld) [#/Vol]0.0 10 3/uL0.0-0.1FHenry County HospitalBasophils/100 WBC Auto (Bld)on 78-25-6981Mqfijriai/100 WBC (Bld)1.0 % 0.2-2.0[facility] HospitalEosinophils/100 WBC Auto (Bld)on 05-89-4990Nyvcpwbunmj/100 WBC (Bld)3.6 %0.9-7.0[facility] Erythrocyte distribution width Auto (RBC) [Ratio]on 14-66-3357Gkavtdqvszs distribution width (RBC) [Ratio]13.6 %11.0-15.0[facility] Estimated glomerular filtration rate (GFR) non- Americanon 10-19-2023 GFR/1.73 sq M.predicted among non-blacks MDRD (S/P/Bld) [Vol rate/Area]41 mL/min/{1.73_m2}Low>=60[facility] HospitalHematocrit Auto (Bld) [Volume fraction]on 01-53-4655Jqyvdwhfmw (Bld) [Volume fraction]36.4 %36.0-48.0 [facility] HospitalHemoglobin [Mass/volume] in Bloodon 10-19-2023 Hemoglobin (Bld) [Mass/Vol]11.5 g/dLLow12.0-16.0[facility] HospitalLaboratory - Chemistry and Chemistry - challengeon 00-12-8483Fjxniso [Mass/Vol]8.5 mg/dL8.5-10.1FHenry County HospitalChloride [Moles/Vol] 102 mmol/M19-374QletbdbtoDayton Osteopathic HospitalCO2 [Moles/Vol]31.2 mmol/L 21.0-32.0[facility] HospitalCreatinine [Mass/Vol]1.31 mg/dLHigh 0.55-1.02[facility] HospitalGFR/1.73 sq M.predicted MDRD (S/P/Bld) [Vol rate/Area]50 mL/min/{1.73_m2}Low>=60[facility] Glucose [Mass/Vol]148 mg/jOXufc59-927QatehtytxDayton Osteopathic HospitalPotassium [Moles/Vol]3.8 mmol/L3.5-5.1FWadsworth-Rittman Hospitalodium [Moles/Vol] 142 mmol/R679-266WtjltttdtDayton Osteopathic HospitalUrea nitrogen [Mass/Vol]22.0 mg/dLHigh7.0-18.0[facility] HospitalUrea nitrogen/Creatinine [Mass ratio]16.8 mg/mgDayton Osteopathic HospitalLaboratory - Hematology and Cell countson 81-62-2331Pbwsvrme granulocytes/100 WBC (Bld)0.3 %0.0-0.5FHenry County HospitalLeukocytes [#/volume] corrected for nucleated erythrocytes in Blood by Automated counon 33-29-5538JPA corrected for nucl RBC Auto (Bld) [#/Vol]3.9 10 3/uLLow4.0-11.0[facility] Lymphocytes Auto (Bld) [#/Vol]on 48-29-0534Chjnltplzvk (Bld) [#/Vol]1.0 10 3/uL Low1.2-3.8[facility] HospitalLymphocytes/100 WBC Auto (Bld)on 18-67-2720Hcahxesgxwy/100 WBC (Bld)26.3 %20.5-60.0[facility]ansfield HospitalH Auto (RBC) [Entitic mass]on 51-95-7401HXE (RBC) [Entitic mass]28.3 pg 26.7-34.0[facility] HospitalMCHC Auto (RBC) [Mass/Vol]on 02-07-3606BZZX (RBC) [Mass/Vol]31.6 g/dL29.9-35.2FHenry County HospitalMCV Auto (RBC) [Entitic vol]on 31-19-0714ZEZ (RBC) [Entitic vol]89.4 fL 81.0-99.0[facility] HospitalMonocytes Auto (Bld) [#/Vol]on 57-20-1271Ineqqwgrm (Bld) [#/Vol]0.3 10 3/uL0.3-0.8[facility] HospitalMonocytes/100 WBC Auto (Bld)on 71-28-5396Nwejuaryz/100 WBC (Bld)6.4 % 1.7-12.0[facility] HospitalNeutrophils Auto (Bld) [#/Vol]on 93-60-2908Gkbrutclqsu (Bld) [#/Vol]2.4 10 3/uL1.4-6.5FHenry County HospitalNeutrophils/100 WBC Auto (Bld)on 90-58-4234Gaxbxisduyv/100 WBC (Bld)62.4 % 43.0-75.0[facility] HospitalNo Panel Informationon 10-19-2023 Eosinophils # (Auto)0.1 10 3/uL0.0-0.7FHenry County HospitalImmature Granulocyte # (Auto)0.01 10 3/uL0.00-0.03[facility] Platelet mean volume Auto (Bld) [Entitic vol]on 89-66-5464Qktvdsik mean volume (Bld) [Entitic vol]10.8 fL9.5-13.5FHenry County HospitalPlatelets Auto (Bld) [#/Vol]on 88-28-3019Benakwgah (Bld) [#/Vol]122 10 3/gNSvb454-390 [facility] HospitalRBC Auto (Bld) [#/Vol]on 67-02-4028MFC (Bld) [#/Vol]4.07 10 6/uLLow4.20-5.40Children's Hospital for Rehabilitationerum or plasma anion gap determinationon 76-31-9371Ybknv gap [Moles/Vol]12.6 mmol/LFHenry County HospitalGlucose mean value [Mass/volume] in Blood Estimated from glycated hemoglobinon 58-89-6419Ctzydju glucose Estimated from glycated hemoglobin (Bld) [Mass/Vol]111 mg/dLDayton Osteopathic HospitalLaboratory - Hematology and Cell countson 88-09-4150FnO4l (Bld) [Mass fraction]5.5 %4.5-6.2 [facility] HospitalComment on above:ADA RECOMMENDED LIMIT 4.0 - 6.0ADA THERAPEUTIC TARGET < 7.0ACTION SUGGESTED> 7.0Basophils Auto (Bld) [#/Vol] on 25-57-8943Vsywsntft (Bld) [#/Vol]0.1 10 3/uL0.0-0.1FHenry County HospitalBasophils/100 WBC Auto (Bld)on 15-98-3059Jdpuzomem/100 WBC (Bld)1.2 % 0.2-2.0[facility] HospitalEosinophils/100 WBC Auto (Bld)on 09-45-3850Zmhvehxolgh/100 WBC (Bld)4.3 %0.9-7.0[facility] Erythrocyte distribution width Auto (RBC) [Ratio]on 66-30-9737Ladsybvkkpn distribution width (RBC) [Ratio]15.3 %11.0-15.0[facility] Estimated glomerular filtration rate (GFR) non- Americanon 07-09-2023 GFR/1.73 sq M.predicted among non-blacks MDRD (S/P/Bld) [Vol rate/Area]43 mL/min/{1.73_m2}>=60[facility] HospitalHematocrit Auto (Bld) [Volume fraction]on 54-16-7299Rrzvubwcvf (Bld) [Volume fraction]40.3 %36.0-48.0 [facility] HospitalHemoglobin [Mass/volume] in Bloodon 07-09-2023 Hemoglobin (Bld) [Mass/Vol]12.8 g/dL12.0-16.0[facility] Laboratory - Chemistry and Chemistry - challengeon 89-70-2551Yatwzge [Mass/Vol] 8.9 mg/dL8.5-10.1FHenry County HospitalChloride [Moles/Vol]102 mmol/L 98-107[facility] HospitalCO2 [Moles/Vol]30.1 mmol/L21.0-32.0 [facility] HospitalCreatinine [Mass/Vol]1.27 mg/dL0.55-1.02 [facility] HospitalGFR/1.73 sq M.predicted MDRD (S/P/Bld) [Vol rate/Area]52 mL/min/{1.73_m2}>=60[facility] HospitalGlucose [Mass/Vol]114 mg/rN95-456SpwnigoyfDayton Osteopathic HospitalPotassium [Moles/Vol] 3.7 mmol/L3.5-5.1FWadsworth-Rittman Hospitalodium [Moles/Vol]142 mmol/L 136-145Day[facility]opathic HospitalUrea nitrogen [Mass/Vol]18.0 mg/dL 7.0-18.0[facility] HospitalUrea nitrogen/Creatinine [Mass ratio] 14.2 mg/mgDayton Osteopathic HospitalLaboratory - Hematology and Cell countson 67-17-0250Nmuwdbpj granulocytes/100 WBC (Bld)0.2 %0.0-0.5FHenry County HospitalLeukocytes [#/volume] corrected for nucleated erythrocytes in Blood by Automated counon 12-67-2488TXH corrected for nucl RBC Auto (Bld) [#/Vol]4.2 10 3/uL4.0-11.0[facility] Lymphocytes Auto (Bld) [#/Vol]on 29-26-3019Qzvuzbimtca (Bld) [#/Vol]1.5 10 3/uL 1.2-3.8[facility] HospitalLymphocytes/100 WBC Auto (Bld)on 18-73-3482Kmzzxwkywoo/100 WBC (Bld)34.8 %20.5-60.0[facility]opathic HospitalMCH Auto (RBC) [Entitic mass]on 18-20-3642HXI (RBC) [Entitic mass]29.0 pg 26.7-34.0[facility]opathic HospitalMCHC Auto (RBC) [Mass/Vol]on 52-66-0639LDFX (RBC) [Mass/Vol]31.8 g/dL29.9-35.2FHenry County HospitalMCV Auto (RBC) [Entitic vol]on 21-51-9875ULP (RBC) [Entitic vol]91.4 fL 81.0-99.0[facility] HospitalMonocytes Auto (Bld) [#/Vol]on 68-01-7676Eaeyboqlf (Bld) [#/Vol]0.3 10 3/uL0.3-0.8[facility] HospitalMonocytes/100 WBC Auto (Bld)on 59-44-9418Pndaufunk/100 WBC (Bld)7.6 % 1.7-12.0[facility] HospitalNeutrophils Auto (Bld) [#/Vol]on 75-75-3971Wdcxnttvewi (Bld) [#/Vol]2.2 10 3/uL1.4-6.5FHenry County HospitalNeutrophils/100 WBC Auto (Bld)on 44-94-9548Prirqenfuqt/100 WBC (Bld)51.9 % 43.0-75.0[facility] HospitalNo Panel Informationon 07-09-2023 Eosinophils # (Auto)0.2 10 3/uL0.0-0.7FHenry County HospitalImmature Granulocyte # (Auto)0.01 10 3/uL0.00-0.03[facility] Platelet mean volume Auto (Bld) [Entitic vol]on 78-18-9598Wvtebsua mean volume (Bld) [Entitic vol]12.4 fL9.5-13.5FHenry County HospitalPlatelets Auto (Bld) [#/Vol]on 26-70-7407Mdexeosvy (Bld) [#/Vol]108 10 3/lQ159-861 [facility] HospitalRBC Auto (Bld) [#/Vol]on 06-46-3807DTX (Bld) [#/Vol]4.41 10 6/uL4.20-5.40Children[facility] Hospital for Rehabilitationerum or plasma anion gap determinationon 01-13-6978Anrnk gap [Moles/Vol]13.6 mmol/LFHenry County HospitalCBC AUTO DIFFon 84-64-3213CVUI #0.0 103/ulNormal0.0-0.1 [facility] - AndersonComment on above:Performed By: #### CBC #### [facility] [address] [address] [address] Rivas ZhaoBasophils/100 WBC (Bld)0.7 %Normal0.2-2.0[facility] Comment on above:Performed By: #### CBC #### [facility] [address] [place] [address] Dr. Rivas Peter #0.2 103/ulNormal0.0-0.7The [facility] - AndersonComment on above: Performed By: #### CBC #### [facility] [address] [place] [address] Dr. Rivas Dcosinophils/100 WBC (Bld)3.4 %Normal0.9-7.0[facility] Comment on above:Performed By: #### CBC #### [facility] [address] [place] [address] Dr. Rivas Dcrythrocyte distribution width (RBC) [Ratio]14.8 %Ldjfbm92.0-15.0 [facility] - AndersonComment on above:Performed By: #### CBC #### [facility] [address] [place] [address] Dr. Rivas ZhaoHematocrit (Bld) [Volume fraction]38.4 %Inushu35.0-48.0The [facility] - AndersonComment on above:Performed By: #### CBC #### [facility] [address] [place] [address] Dr. Rivas ZhaoHemoglobin (Bld) [Mass/Vol]12.7 g/sWVmkqkx26.0-16.0The [facility] - AndersonComment on above:Performed By: #### CBC #### [facility] [address] [place] [address] Dr. Rivas Berry #0.01 10e3/ulNormal0.00-0.03The [facility] - AndersonComment on above:Performed By: #### CBC #### [facility] [address] [place] [address] Dr. Rivas Berry %0.2 %Normal0.0-0.5The [facility] - AndersonComment on above: Performed By: #### CBC #### [facility] [address] [address] [address] Rivas Corley #1.5 103/ulNormal1.2-3.8The [facility] - AndersonComment on above:Performed By: #### CBC #### [facility] [address] [address] [address] Rivas Riverohocytes/100 WBC (Bld)34.9 %Aexygq11.5-60.0The [facility] - AndersonComment on above:Performed By: #### CBC #### [facility] [address] [place] [address] Dr. Rivas Posey DIFF REQNONormalThe [facility] - AndersonComment on above: Performed By: #### CBC #### [facility] [address] [place] [address] Dr. Rivas Cristina (RBC) [Entitic mass]30.2 eqJleodv31.7-34.0The [facility] - AndersonComment on above:Performed By: #### CBC #### [facility] [address] [place] [address] Dr. Rivas Cristina (RBC) [Mass/Vol]33.1 g/jTBhsnxc75.9-35.2The [facility] - AndersonComment on above:Performed By: #### CBC #### [facility] [address] [place] [address] Dr. Rivas Cristina (RBC) [Entitic vol]91.2 sPFscrys51.0-99.0The [facility] - AndersonComment on above:Performed By: #### CBC #### [facility] [address] [place] [address] Dr. Rivas Carlisle #0.3 103/ulNormal0.3-0.8The [facility] - AndersonComment on above:Performed By: #### CBC #### [facility] [address] [place] [address] Dr. Rivas Martinesocytes/100 WBC (Bld)5.9 %Normal1.7-12.0The [facility] Comment on above:Performed By: #### CBC #### [facility] [address] [address] [address] Rivas Rivera #2.4 103/ulNormal1.4-6.5The [facility] - AndersonComment on above:Performed By: #### CBC #### [facility] [address] [address] [address] Rivas Rasheedutrophils/100 WBC (Bld)54.9 %Lnerrk23.0-75.0The [facility] - AndersonComment on above:Performed By: #### CBC #### [facility] [address] [place] [address] Dr. Rivas Whytelet mean volume (Bld) [Entitic vol]11.9 fLNormal9.5-13.5The [facility] - AndersonComment on above:Performed By: #### CBC #### [facility] [address] [place] [address] Dr. Rivas ZhaoPLT107 103/ulCritically gxc649-782Awn [facility] - AndersonComment on above:Performed By: #### CBC #### [facility] [address] [place] [address] Dr. Rivas ZhaoRBC4.21 106/ulNormal4.20-5.40The [facility] - AndersonComment on above:Performed By: #### CBC #### [facility] [address] [place] [address] Dr. Rivas ZhaoWBC4.4 103/ulNormal4.0-11.0The [facility] - AndersonComment on above: Performed By: #### CBC #### [facility] [address] [place] [address] Dr. Rivas ZhaoGLYCOHEMOGLOBIN A1Con 23-49-7421MIM RECOMMENDATIONSEE BELOWNormal [facility] MiamisburgComhelen newberry joy hospital on above:Result Comment: ADA RECOMMENDED LIMIT 4.0 - 6.0 ADA THERAPEUTIC TARGET < 7.0 ACTION SUGGESTED > 7.0Performed By: #### A1C #### [facility] [address] [place] [address] Dr. Rivas ZhaoGlucose [Mass/Vol]117 mg/dLCleveland Clinic Mentor HospitalComment on above:Performed By: #### A1C #### [facility] [address] [address] [address] Rivas ZhaoHbA1c (Bld) [Mass fraction]5.7 %Normal4.5-6.2[facility] MiamisburgComment on above:Performed By: #### A1C #### [facility] [address] [place] [address] Dr. Rivas ZapienID PROFILEon 46-18-8130EBTN-HDL RATIO NORMSEE [facility] SystemComment on above:Result Comment: 3.3 - 4.4 LOW RISK 4.4 - 7.1 AVERAGE RISK 7.1 - 11.0 MODERATE RISK >11.0 HIGH RISKPerformed By: #### LIPID, CMP #### [facility] [address] [place] [address] Dr. Rivas ZhaoCholesterol [Mass/Vol]160 mg/dLNormal<=200The [facility] Comment on above:Performed By: #### LIPID, CMP #### [facility] [address] [address] [address] Rivas Levyesterol in HDL [Mass/Vol]49 mg/tVDwmojn44-07BgyKettering Health MiamisburgComhelen newberry joy hospital on above:Performed By: #### LIPID, CMP #### [facility] [address] [place] [address] Dr. Rivas ZhaoCholesterol in LDL [Mass/Vol]96.0 mg/dLCleveland Clinic Mentor HospitalComment on above:Performed By: #### LIPID, CMP #### [facility] [address] [place] [address] Dr. Rivas Levyestersung.total/Cholesterol in HDL [Mass ratio]3.3 {ratio} NormalThe [facility] - AndersonComment on above:Performed By: #### LIPID, CMP #### [facility] [address] [place] [address] Dr. Rivas ZhaoHDL NORMAL> or = 60 mg/dl - LOW CARDIOVASCULAR RISK <40 mg/dl - HIGH CARDIOVASCULAR RISKCleveland Clinic Mentor HospitalComment on above:Performed By: #### LIPID, CMP #### [facility] [address] [place] [address] Dr. Rivas Fox CALC NORMALSEE BELOWCleveland Clinic Mentor HospitalComment on above:Result Comment: <100 mg/dl OPTIMAL 100 - 129 mg/dl NEAR OR ABOVE OPTIMAL 130 - 159 mg/dl BORDERLINE HIGH 160 - 189 mg/dl HIGH >190 mg/dl VERY HIGH Performed By: #### LIPID, CMP #### [facility] [address] [address] [address] Rivas ZhaoTriglyceride [Mass/Vol]75 mg/dLNormal<=150The [facility] Comment on above:Performed By: #### LIPID, CMP #### [facility] [address] [place] [address] Dr. Rivas ChampionLDL CALC15.0 mg/dLNoOhioHealth Dublin Methodist HospitalComment on above: Performed By: #### LIPID, CMP #### [facility] [address] [place] [address] Dr. Rivas ZhaoPROF 14(COMP METB)on 79-37-5397Cldhqyf [Mass/Vol]3.0 g/dL Critically low3.4-5.0The [facility] AndersonComhelen newberry joy hospital on above:Performed By: #### LIPID, CMP #### [facility] [address] [place] [address] Dr. Rivas ZhaoAlbumin/Globulin [Mass ratio]0.6 {ratio}NormalThe [facility] - AndersonComment on above:Performed By: #### LIPID, CMP #### [facility] [address] [place] [address] Dr. Rivas Mercado [Catalytic activity/Vol]74 U/MDqriai90-006Qpt [facility] on above:Performed By: #### LIPID, CMP #### [facility] [address] [place] [address] Dr. Rivas Lieberman [Catalytic activity/Vol]59 U/CMgdrjx21-48Twd [facility] on above:Performed By: #### LIPID, CMP #### [facility] [address] [address] [address] Rivas Tuckeron gap [Moles/Vol]9.2 mmol/LNormalThe [facility] AndersonComment on above:Performed By: #### LIPID, CMP #### [facility] [address] [address] [address] Rivas ZhaoAST [Catalytic activity/Vol]65 U/LCritically bfhb89-61Hla [facility] AndersonComment on above:Performed By: #### LIPID, CMP #### [facility] [address] [address] [address] Rivas ZhaoBilirubin [Mass/Vol]1.1 mg/dLCritically high0.2-1.0The [facility] AndersonComment on above:Performed By: #### LIPID, CMP #### [facility] [address] [address] [address] Rivas ZhaoCalcium [Mass/Vol]8.8 mg/dLNormal8.5-10.1The [facility] Comment on above:Performed By: #### LIPID, CMP #### [facility] [address] [address] [address] Rivas ZhaoChloride [Moles/Vol]102 mmol/FKfxpsl79-719Umg [facility] Comment on above:Performed By: #### LIPID, CMP #### [facility] [address] [address] [address] Rivas ZhaoCO2 [Moles/Vol]32.5 mmol/LCritically high21.0-32.0The [facility] AndersonComment on above:Performed By: #### LIPID, CMP #### [facility] [address] [address] [address] Rivas ZhaoCreatinine [Mass/Vol]0.76 mg/dLNormal0.55-1.02The [facility] AndersonComment on above:Performed By: #### LIPID, CMP #### [facility] - [facility] [address] [address] [address] Rivas DcGFR-AF JAMAICAN>60Normal>=60The Dariela HospitalComment on above:Performed By: #### LIPID, CMP #### [facility] [address] [address] [address] Rivas Bee-NON AF JAMAICAN>60Normal>=60The [facility] - AndersonComment on above:Performed By: #### LIPID, CMP #### [facility] [address] [address] [address] Rivas ZhaoGlobulin (S) [Mass/Vol]4.7 g/dLNormalThe [facility] AndersonComment on above:Performed By: #### LIPID, CMP #### [facility] [address] [address] [address] Rivas ZhaoGlucose [Mass/Vol]109 mg/dLCritically bgng76-178Xfy [facility] AndersonComment on above:Performed By: #### LIPID, CMP #### [facility] [address] [address] [address] Rivas ZhaoPotassium [Moles/Vol]3.7 mmol/LNormal3.5-5.1[facility] Comment on above:Performed By: #### LIPID, CMP #### [facility] [address] [address] [address] Rivas ZhaoProtein [Mass/Vol]7.7 g/dLNormal6.4-8.2The [facility] Comment on above:Performed By: #### LIPID, CMP #### [facility] [address] [address] [address] Rivas ZhaoSodium [Moles/Vol]140 mmol/LZvcfsc035-403RjhKettering Health [facility] Comment on above:Performed By: #### LIPID, CMP #### [facility] [address] [address] [address] Rivas ZhaoUrea nitrogen [Mass/Vol]12.0 mg/dLNormal7.0-18.0The [facility] AndersonComment on above:Performed By: #### LIPID, CMP #### [facility] [address] [address] [address] Rivas ZhaoUrea nitrogen/Creatinine [Mass ratio]15.8 mg/mgNormalThe Benicia HospitalComment on above:Performed By: #### LIPID, CMP #### [facility] [address] [address] [address] Rivas ZhaoPatient Correspondenceon 21-59-5157Cyaylgl Correspondence [id number]#1.00CD:127[facility] HospitalPhys[facility] [id number]#1.00CD:127NormOhioHealth Hardin Memorial HospitalPatient Correspondence [id number]#1.00CD:[address] [place], [place] [address]Physician Referralon 25-68-3073Lcojcjjvo Referral [id number]#1.00CD:[address] [place], [place] [address]MG MAMM DIAGNOSTIC 3D GREG CADon 22-04-2324GV MAMM DIAGNOSTIC 3D GREG CAD Patient: FERN CARDOSO Exam Date: 05/16/2021 : 1960 Gender:F Ordering : DR SINDI BENJAMIN M.D. Admission #: [id number] Family : Order #: [id number] CLICK HERE TO VIEW EXAM RADIOLOGY REPORT [...] breast cancer at age 59. LOCATION: [facility] BREAST COMPOSITION: Scattered areas fibroglandular density. FINDINGS: [...] by: Calin Contreras M.D. on 05/16/2021 at 15:27[facility] HospitalUS BREAST GREG LIMITEDon 18-04-4611NV BREAST GREG LIMITEDPatient: FERN CARDOSO Exam Date: 05/16/2021 : 1960 Gender:F Ordering : DR SINDI BENJAMIN M.D. Admission #: [id number] Family : Order #: [id number] CLICK HERE TO VIEW EXAM RADIOLOGY REPORT [...] breast cancer at age 59. LOCATION: [facility] BREAST COMPOSITION: Scattered areas fibroglandular density. FINDINGS: [...] by: Calin Contreras M.D. on 05/16/2021 at 15:27[facility] HospitalTRANSGLUTAMINASE IGAon 39-49-7264e-Transglutaminase (tTG) IgA<9Wevgfh4-7 [facility] AndersonComment on above:Result Comment: Negative 0 - 3 Weak Positive 4 - 10 Positive >10 . Tissue Transglutaminase (tTG) has been identified as the endomysial antigen. Studies have demonstr- ated that endomysial IgA antibodies have over 99% specificity for gluten sensitive enteropathy.Performed By: #### TRANIGA #### [facility] [address] [place] [address] Dr. Rivas Garza AUTO DIFFon 11-78-6094FUDZ #0.1 103/ulNormal0.0-0.1[facility]burgComment on above:Performed By: #### CBC #### [facility] [address] [place] [address] Dr. Rivas ZhaoBasophils/100 WBC (Bld)0.9 %Normal0.2-2.0[facility] Comment on above:Performed By: #### CBC #### [facility] [address] [place] [address] Dr. Rivas Peter #0.2 103/ulNormal0.0-0.7The [facility] AndersonComment on above: Performed By: #### CBC #### [facility] [address] [place] [address] Dr. Rivas Dcosinophils/100 WBC (Bld)2.3 %Normal0.9-7.0The [facility] Comment on above:Performed By: #### CBC #### [facility] [address] [place] [address] Dr. Rivas Dcrythrocyte distribution width (RBC) [Ratio]14.5 %Smripf95.0-15.0 [facility]burgComment on above:Performed By: #### CBC #### [facility] [address] [place] [address] Dr. Rivas ZhaoHematocrit (Bld) [Volume fraction]39.9 %Tivrjj53.0-48.0The [facility] AndersonComment on above:Performed By: #### CBC #### [facility] [address] [place] [address] Dr. Rivas ZhaoHemoglobin (Bld) [Mass/Vol]13.1 g/nLTixhaw59.0-16.0The [facility] AndersonComment on above:Performed By: #### CBC #### [facility] [address] [place] [address] Dr. Rivas Berry #0.02 10e3/ulNormal0.00-0.03The [facility] - AndersonComment on above:Performed By: #### CBC #### [facility] [address] [place] [address] Dr. Rivas Berry %0.3 %Normal0.0-0.5The [facility] AndersonComment on above: Performed By: #### CBC #### [facility] [address] [place] [address] Dr. Rivas Corley #2.2 103/ulNormal1.2-3.8The [facility] - AndersonComment on above:Performed By: #### CBC #### [facility] [address] [place] [address] Dr. Rivas Riverohocytes/100 WBC (Bld)31.8 %Rkusge32.5-60.0[facility] Mi[facility]burgComment on above:Performed By: #### CBC #### [facility] [address] [place] [address] Dr. Yilan ChangMANUAL DIFF REQNONormalThe [facility] AndersonComment on above: Performed By: #### CBC #### [facility] [address] [place] [address] Dr. Rivas Cristina (RBC) [Entitic mass]30.2 juNgfhhh85.7-34.0The [facility] AndersonComment on above:Performed By: #### CBC #### [facility] [address] [place] [address] Dr. Rivas Cristina (RBC) [Mass/Vol]32.8 g/dZBzegmn64.9-35.2The [facility] HospitalComment on above:Performed By: #### CBC #### [facility] [address] [place] [address] Dr. Rivas Cristina (RBC) [Entitic vol]91.9 nTTrludi64.0-99.0The [facility] AndersonComment on above:Performed By: #### CBC #### [facility] [address] [place] [address] Dr. Rivas Carlisle #0.5 103/ulNormal0.3-0.8The [facility] AndersonComment on above:Performed By: #### CBC #### [facility] [address] [place] [address] Dr. Rivas Martinesocytes/100 WBC (Bld)7.2 %Normal1.7-12.0The [facility] Comment on above:Performed By: #### CBC #### [facility] [address] [place] [address] Dr. Rivas Rivera #4.0 103/ulNormal1.4-6.5The [facility] AndersonComment on above:Performed By: #### CBC #### [facility] [address] [place] [address] Dr. Rivas Rasheedutrophils/100 WBC (Bld)57.5 %Bbgfku94.0-75.0The [facility] AndersonComment on above:Performed By: #### CBC #### [facility] [address] [place] [address] Dr. Yilan ChangPlatelet mean volume (Bld) [Entitic vol]11.8 fLNormal9.5-13.5The [facility] AndersonComment on above:Performed By: #### CBC #### [facility] [address] [place] [address] Dr. Rivas ZhaoPLT139 103/ulCritically otu528-070Rar [facility] AndersonComment on above:Performed By: #### CBC #### [facility] [address] [place] [address] Dr. Rivas ZhaoRBC4.34 106/ulNormal4.20-5.40The [facility] AndersonComment on above:Performed By: #### CBC #### [facility] [address] [place] [address] Dr. Rivas ZhaoWBC7.0 103/ulNormal4.0-11.0The [facility] AndersonComment on above: Performed By: #### CBC #### [facility] [address] [place] [address] Dr. Rivas ZapienASEon 21-52-4506Sgsmrb [Catalytic activity/Vol]197.0 U/LNormal 23.0-300.0The [facility] AndersonComment on above:Performed By: #### CMP, LIPA #### [facility] [address] [place] [address] Dr. Rivas ZhaoPROF 14(COMP METB)on 99-24-5607Pmaiqac [Mass/Vol]3.6 g/dLNormal 3.5-5.0The [facility] AndersonComment on above:Performed By: #### CMP, LIPA #### [facility] [address] [place] [address] Dr. Rivas ZhaoAlbumin/Globulin [Mass ratio]0.9 {ratio}NormalThe [facility] AndersonComment on above:Performed By: #### CMP, LIPA #### [facility] [address] [place] [address] Dr. Rivas ZhaoALP [Catalytic activity/Vol]46 U/JKodqmi60-471Blj [facility] AndersonComment on above:Performed By: #### CMP, LIPA #### [facility] [address] [address] [address] Rivas HarleyT [Catalytic activity/Vol]77 U/LCritically high9-52The [facility] AndersonComment on above:Performed By: #### CMP, LIPA #### [facility] [address] [address] [address] Rivas ZhaoAnion gap [Moles/Vol]13.9 mmol/LNormalThe [facility] Comment on above:Performed By: #### CMP, LIPA #### [facility] [address] [address] [address] Rivas ZhaoAST [Catalytic activity/Vol]67 U/LCritically yerg68-45Kwx [facility] AndersonComment on above:Performed By: #### CMP, LIPA #### [facility] [address] [place] [address] Dr. Rivas ZhaoBilirubin [Mass/Vol]0.7 mg/dLNormal0.2-1.3TOur [facility] of [facility] Comment on above:Performed By: #### CMP, LIPA #### [facility] [address] [address] [address] Rivas ZhaoCalcium [Mass/Vol]9.8 mg/dLNormal8.4-10.2[facility] Comment on above:Performed By: #### CMP, LIPA #### [facility] [address] [address] [address] Rivas ZhaoChloride [Moles/Vol]103 mmol/HJcticm60-106Kmz [facility] Comment on above:Performed By: #### CMP, LIPA #### [facility] [address] [address] [address] Rivas hZaoCO2 [Moles/Vol]31.0 mmol/LCritically high22.0-30.0The [facility] AndersonComment on above:Performed By: #### CMP, LIPA #### [facility] [address] [address] [address] Rivas ZhaoCreatinine [Mass/Vol]0.95 mg/dLNormal0.52-1.04[facility]burgComment on above:Performed By: #### CMP, LIPA #### [facility] [address] [place] [address] Dr. Rivas DcGFR-AF BNJITREM36 mL/min/1.56c7Epczyb>=60[facility] Comment on above:Performed By: #### CMP, LIPA #### [facility] [address] [place] [address] Dr. Rivas DcGFR-NON AF JAMAICAN=60Normal>=60[facility]burgComment on above:Performed By: #### CMP, LIPA #### [facility] [address] [place] [address] Dr. Rivas ZhaoGlobulin (S) [Mass/Vol]4.2 g/dLNormalThThe University of Toledo Medical CenterComment on above:Performed By: #### CMP, LIPA #### [facility] [address] [place] [address] Dr. Rivas ZhaoGlucose [Mass/Vol]95 mg/rTPrwzfl88-429VibK[facility] Health [facility] Comment on above:Performed By: #### CMP, LIPA #### [facility] [address] [place] [address] Dr. Rivas ZhaoPotassium [Moles/Vol]3.9 mmol/LNormal3.4-5.0[facility] Comment on above:Performed By: #### CMP, LIPA #### [facility] [address] [place] [address] Dr. Rivas ZhaoProtein [Mass/Vol]7.8 g/dLNormal6.1-8.2[facility] Comment on above:Performed By: #### CMP, LIPA #### [facility] [address] [place] [address] Dr. Rivas ZhaoSodium [Moles/Vol]144 mmol/DJctdht734-452YzjK[facility] Health [facility] Comment on above:Performed By: #### CMP, LIPA #### [facility] [address] [place] [address] Dr. Rivas ZhaoUrea nitrogen [Mass/Vol]20.0 mg/dLCritically high7.0-17.0[facility]burgComment on above:Performed By: #### CMP, LIPA #### [facility] [address] [place], [place] [address] Dr. Rivas Hicks nitrogen/Creatinine [Mass ratio]21.1 mg/mgNormalThe [facility] AndersonComment on above:Performed By: #### CMP, LIPA #### [facility] [address] [place], [place] [address] Dr. Rivas ZhaoXR ribs RT min 3V w CXR1V*on 28-88-0183GS ribs RT min 3V w CXR1V* [facility] [place] [address] [place] [address] XRay Report Signed Patient: Fern Cardoso MR#: [id number] : 1960 Acct:[id number] Age/Sex: 59 / F ADM Date: 06/09/20 Loc: XDUCLY Room: Type: [facility] Attending Dr: Janene Munguia APRN, BUSINESS DEAN-C Ordering Provider: Janene Munguia APRN Date of [...] Garcia Jr., M.D.06/09/2020 11:19 AM Dictation Location: [address] By: JOSÉ LUIS 06/09/20 1119 Dictated By: Que Garcia Jr, MD 06/09/20 1112 Signed By: 06/09/20 1119NoOhioHealth [facility] Vital Signs Date TimeVital SignValuePerforming AfzngwzfnXesnolmt45-40-9694 10:49-0400Body hmqyfs756.1 cmNicholas Brown DPM Work Phone: [phone] [place], [place] [address]Ipflkvnule94-94-1831 10:49-0400Body mass index (BMI) [Ratio]57.91 kg/m5Vijmfryp Brown DPM Work Phone: [phone] [place], [place] [address]Iyuduowypw10-39-3094 10:49-0400Body lpzowj569.85 kgNicholas Brown DPM Work Phone: [facility] LouisBcwbgapejt25-67-5004 10:49-0400Respiratory rate18 /minNicholas Brown DPM Work Phone: [phone] [place], [place] [address]Flrgtwxaxt84-38-6866 10:37-0400Body .1 cmNicholas Brown DPM Work Phone: [facility] LouisBfakybfqtg59-11-3200 10:37-0400Body mass index (BMI) [Ratio]57.91 kg/f4Indldtzq Brown DPM Work Phone: [facility] LouisVjvmguurgp99-12-5729 10:37-0400Body .85 kgNicholas Brown DPM Work Phone: [phone] [place], [place] [address]Icboghpxza25-72-2094 10:37-0400Respiratory rate18 /minNicholas Brown DPM Work Phone: [facility] LouisOicetrctpl07-38-3320 10:00-0400Body .1 cm[facility]20[facility] 10:00-0400Body mass index (BMI) [Ratio]57 kg/y6JxenxbstdDayton Osteopathic Hospital10-28-2024 10:00-0400Body weight 155.58 kgDayton Osteopathic Hospital10-28-2024 10:00-0400Diastolic blood aetbbxvg40 mm[Hg][facility]10-28-2024 10:00-0400Heart rate74 /[facility]10-28-2024 10:00-0400Systolic blood kkpwgyjt416 mm[Hg][facility]10-07-2024 10:10-0400Body .1 cmDay[facility]10-07-2024 10:10-0400Body mass index (BMI) [Ratio]56.3 kg/z2VdeltarrcDayton Osteopathic Hospital10-07-2024 10:10-0400Body jswayk240.54 kgDayton Osteopathic Hospital10-07-2024 10:10-0400Diastolic blood pijqokyo41 mm[Hg][facility] 01-24-2024 10:10-0400Heart rate71 /[facility] 01-24-2024 10:10-0400Respiratory rate18 /[facility] 01-24-2024 10:10-3792IlO1% (BldA) [Mass fraction]98 %[facility]10-07-2024 10:10-0400Systolic blood kfuadyya234 mm[Hg][facility]08-29-2024 11:29-0400Body uobiwx274.1 cmDayton [facility]opathic Hospital08-29-2024 11:29-0400Body mass index (BMI) [Ratio]55 kg/l8FswokooqhDayton Osteopathic Hospital08-29-2024 11:29-0400Body .13 kgDayton [facility]opathic Hospital08-29-2024 11:29-0400Diastolic blood mm[Hg] [facility]08-29-2024 11:29-0400Heart rate69 /[facility]08-29-2024 11:29-0400Systolic blood ghfnohmw42 mm[Hg] [facility]06-27-2024 09:39-0400Body auzhlk107.1 cm [facility]06-27-2024 09:39-0400Body mass index (BMI) [Ratio]54.6 kg/e4YojzmfqlmDayton Osteopathic Hospital06-27-2024 09:39-0400Body oervddswgmc07.4 [degF][facility]06-27-2024 09:39-0400Body gijfmq725.89 kgDayton [facility]opathic Hospital06-27-2024 09:39-0400Diastolic blood mluiasjd34 mm[Hg][facility]06-27-2024 09:39-0400 Heart rate71 /[facility]06-27-2024 09:39-0400 Respiratory rate18 /[facility]06-27-2024 09:39-0400 SaO2% (BldA) [Mass fraction]97 %[facility]06-27-2024 09:39-0400Systolic blood bsvwruhl883 mm[Hg][facility] 08-12-2023 11:04-0400Body vhdfmy191.1 cmDay[facility]opathic Hospital 08-12-2023 11:04-0400Body mass index (BMI) [Ratio]55.2 kg/x0KtpfpikisDayton Osteopathic Hospital04-25-2024 11:04-0400Body yvhzrw532.59 kgDayton [facility]opathic Hospital04-25-2024 11:04-0400Diastolic blood uxmdpxeu25 mm[Hg][facility]04-25-2024 11:04-0400Heart rate67 /[facility]04-25-2024 11:04-0400Systolic blood okuzfoes064 mm[Hg][facility]03-04-2024 15:41-0500Body dtfyfi480.1 cmDayton [facility]opathic Hospital03-04-2024 15:41-0500Body mass index (BMI) [Ratio]54.1 kg/b9NnqehtxgzDayton [facility]opathic Hospital03-04-2024 15:41-0500Body ygtxhf054.64 kg [facility]03-04-2024 15:41-0500Diastolic blood qaonudov41 mm[Hg][facility]03-04-2024 15:41-0500Heart rate67 /min [facility]03-04-2024 15:41-7466KdM4% (BldA) [Mass fraction]97 %[facility]03-04-2024 15:41-0500Systolic blood uvkgnech112 mm[Hg][facility]01-26-2024 09:30-0500 Body .1 cmIsalei Sourav Other [employer] Other 01-26-2024 09:30-0500Body mass index (BMI) [Ratio] 57.24 kg/e0Xvdxlt Sourav Other [employer] Other 01-26-2024 09:30-0500Body qfjhwo209.04 kgSindi Sourav Other [employer] Other 01-26-2024 09:30-0500Diastolic blood mm[Hg] Sindi Benjamin Other [employer] Other 01-26-2024 09:30-4089UpV2% (BldA) [Mass fraction]97 % Sindi Benjamin Other [employer] Other 01-26-2024 09:30-0500Systolic blood eeoycefj353 mm[Hg] Sindi Benjamin Other [employer] Other 11-17-2023 16:00-0500Body tqylap648.1 cmAaleshia Gordon Other [employer] Other 11-17-2023 16:00-0500Body mass index (BMI) [Ratio] 60.27 kg/k9SnyngEtta Gordon Other [employer] Other 11-17-2023 16:00-0500Body vpagukgfhac80.9 [degF]Etta Gordon Other [employer] Other 11-17-2023 16:00-0500Body .29 kgEtta Gordon Other [employer] Other 11-17-2023 16:00-0500Diastolic blood jakhgmrt10 mm[Hg] Etta Gordon Other [employer] Other 11-17-2023 16:00-0500Respiratory rate18 /minEtta Gordon Other [employer] Other 11-17-2023 16:00-0856OlB9% (BldA) [Mass fraction]95 % Etta Gordon Other [facility] [employer] Other 11-17-2023 16:00-0500Systolic blood aoamczsy831 mm[Hg] Etta Gordon Other [facility] [employer] Other Encounters Encounter DateEncounter TypeCare ProviderFacilityStart: 02-20-2025 End: 63-31-2617nvmkyvrrxzGRFQOhioHealth Arthur G.H. Bing, MD, Cancer Centertart: 01-16-2025 End: 32-71-4633pijffedlwfFvhmzaBinh Pickard MDFacility:[facility] Start: 01-16-2025 End: 42-65-8339alwgdpeqnoWdhjhnBinh Pickard MDFacility:[facility] [place]Start: 17-68-0364zpkjcrsmldUFPWSelect Medical Cleveland Clinic Rehabilitation Hospital, Beachwoodtart: 12-14-2024 End: 47-71-9219Gebjgp flowsUnique Reno DPM Work Phone: noMS CI PODIATRYStart: 12-14-2024 End: 59-12-0700Eeqaip flowsUnique Reno DPM Work Phone: noms CI PODIATRYStart: 12-14-2024 End: 76-78-2538Yuwzgkk encounter procedureEsequiel Reno DPM Work Phone: noms CI PODIATRYComment on above:Hallux rigidus of left foot (Primary Dx); Hallux rigidus of right foot; Diabetes mellitus due to underlying condition with diabetic polyneuropathy, unspecified whether care home insulin use (HCC); Pain due to onychomycosis of toenails of both feet; Venous insufficiencyStart: 12-14-2024 End: 58-35-9495gwyuyqktqbKUNAHBUM A BROWNNot AvailableStart: 12-06-2024 ambulatorySelect Medical Cleveland Clinic Rehabilitation Hospital, Beachwoodtart: 12-05-2024 End: 16-14-5865Fvwzsd flowsheetSammantha Aaron PTNOMS [facility] Start: 12-05-2024 End: 34-30-4327Lxdvmk flowsheetSammantha Aaron PTNOMS [facility] Start: 12-05-2024 End: 47-88-2379wwznpipredRrknoudiq Aaron PTMS [facility] Comment on above:Cervicalgia (Primary Dx)Start: 11-29-2024 End: 30-15-7997mhjjeapeevWXNISJE [facility] Medical Centertart: 57-73-0204pokocuajxzDIMJOhioHealth Arthur G.H. Bing, MD, Cancer Centertart: 21-96-8560belsxwfwhyLJLIOhioHealth Arthur G.H. Bing, MD, Cancer Centertart: 10-05-2024 End: 65-16-1230Rukfhl Niki [place] DPM Work Phone: noMS CI PODIATRYStart: 10-05-2024 End: 44-09-4498Snyihsambrocio Reno DPM Work Phone: noMS CI PODIATRYStart: 10-05-2024 End: 36-95-0483Ttypyi outpatient new 30 minutesEsequiel Reno DPM Work Phone: noms CI PODIATRYComment on above:Hallux rigidus of left foot (Primary Dx); Hallux rigidus of right foot; Diabetes mellitus due to underlying condition with diabetic polyneuropathy, unspecified whether manager long term care insulin use (HCC); Pain due to onychomycosis of toenails of both feet; Venous insufficiencyStart: 10-05-2024 End: 63-24-3685hblcrexnmtISGVMUHF A BROWNNot AvailableStart: 08-28-2024 ambulatorySelect Medical [facility] Clinic Rehabilitation Hospital, Beachwoodtart: 07-07-2024 ambulatorySelect Medical Cleveland Clinic Rehabilitation Hospital, Beachwoodtart: 06-09-2024 End: 54-78-2577uvtijqttopXGTF SNIDERUnHolzer Hospitaltart: 89-80-8505jimiqiyqhxCAXKLakeHealth TriPoint Medical Centertart: 34-60-1243qidhnsogiqPPXASelect Medical Cleveland Clinic Rehabilitation Hospital, Beachwoodtart: 49-10-2126qwjbivemhaFWVBLakeHealth TriPoint Medical Centertart: 01-73-4189lxuufaaxboIUWULakeHealth TriPoint Medical Centertart: 86-03-2899eupsbhrflpDBJPLakeHealth TriPoint Medical Centertart: 02-14-2024 End: 47-51-1748nupbcuifcoEtdvaoetaProMedica [facility]iance [facility] Hospital Work Phone: Start: 02-14-2024 End: 47-43-5692Pkemxuw encounter procedureAdia Physician Group-[facility] Work Phone: Start: 01-24-2024 End: 42-46-2338kehbslbwzjKbfzvhkvzProMedica Defiance [facility] Hospital Work Phone: Start: 01-24-2024 End: 82-84-4351Lvvtirl encounter procedureFirelands Physician Group-[facility] Work Phone: Start: 01-25-7967Taj-patient / Non-visitFirold forts [facility] Work Phone: Start: 12-16-2023 End: 29-30-7203irbrsngdrdMisrnoadhProMedica [facility] Hospital Work Phone: Start: 12-16-2023 End: 02-84-7201Ynodabl encounter procedureMerryold forts [facility] Work Phone: Start: 27-43-8075Nsx-patient / Non-visitFirold forts [facility] [employer] Work Phone: Start: 10-14-2023 End: 73-21-1916ggfshsurnzMbvegjtclACMC Healthcare System Work Phone: Start: 10-14-2023 End: 55-07-2398Zxyufdw encounter [facility] [place] Work Phone: Start: 71-69-6274Hag-patient / Non-visitFirold forts Physician Group-[facility] [employer] Work Phone: Start: 12-06-8655Bdlofri encounter statusChildren's Hospital for Rehabilitationtart: 08-12-2023 End: 44-15-0044xcpgunwvsoDjrizhugqACMC Healthcare System Work Phone: Start: 08-12-2023 End: 94-58-5631Ojfnxcewh for general adult medical examination without abnormal findingsChildren's Hospital for Rehabilitationtart: 08-12-2023 End: 99-54-3995Xaglpas encounter procedureDosher [facility] Work Phone: Start: 31-56-2992Nfp-patient / Non-visitDosher Memorial Hospital [facility] [employer] Work Phone: Start: 06-21-2023 End: 94-16-4657Cyhiaon encounter procedureDosher Memorial Hospital [facility] Work Phone: Start: 05-31-2023 End: 74-54-9044hqqjzqwqphWegka Evan Other [facility] [employer] Other Start: 56-34-0553Xjlfwsxyp encounterAmber YulianaG [facility] Centertart: 05-21-2023 End: 75-58-1023bhrzotemrcBzlexn Braun Other [facility] [employer] Other Start: 97-96-6718Nhrowwsqs encounterMarlei Pride [facility] ClinicStart: 49-51-7157Bcdqdmu encounter procedureFirkobe Physician Group-Start: 05-14-2023 End: 29-39-6673mnrckbfadgIdhdoi Benjamin Other [employer] Other Start: 32-52-2114Wfghbv outpatient visit 25 minutes [facility] ClinicStart: 04-30-2023 End: 42-71-1801stcfhahmruPrzwzb Benjamin Other [employer] Other Start: 88-78-1955Qlbefwjzb encounterMarlei Pride [facility] ClinicStart: 04-01-2023 End: 66-64-6162ysqwoscpwwNlkrfx Braun Other [employer] Other Start: 22-33-6761Rftstbpps encounterMarlei Pride [facility] ClinicStart: 03-05-2023 End: 55-85-2467wiziaziqciKcdxh Keller Other [employer] Other Start: 48-70-5463Rendnk outpatient visit 25 minutes Etta GordonENCOMPASS HE[facility] Urgent Care ClydeStart: 83-04-4374Nxrjkfzpo for general adult medical examination without abnormal findingsDR SINDI [facility]: 02-21-2022 End: 29-08-5462tlhcounthjOG MARCIA E BRAUNFacility:D2Louvz: 02-21-2022 End: 00-43-5925Zpbrmcblx for general adult medical examination without abnormal findingsDR SINDI BENJAMINFacility:H1Qeplh: 87-94-2847Oztdo health examination Etta Gordon Other [employer] Other Start: 05-16-2021 End: 57-37-3090fvelksgwzoUX MARCIA E BRAUNFacility:L6Jsfor: 03-31-2021 End: 91-37-5856envsnxbwwyNU SINDI Torres SOURAVFacility:A5Zmblr: 22-19-4993Gicogol encounter procedureMicvalentina WhitesideFacility:9844 Procedures DateProcedureProcedure DetailPerforming ClinicianStart: 63-93-9450Qsrbob-up visitFollow-upPAUL CHACKOStart: 59-80-4975ItaciqhfthaxirbgWhapaou LysterStart: 99-29-6711Bln-surgery evaluationEtta Gordon Other Start: 38-13-3472Gylkjmr examination of patientEtta Gordon Other Start: 07-47-3115Oraafqqc mellitus screeningEtta Gordon Other Start: 36-84-1696Csgwqrvfq mammographyEtta Gordon Other Start: 83-57-8565Ikwqggv and physical examination, administrativeEtta Gordon Other Start: 95-83-4444Whohmpvakngo cardiovascular examinationEtta Gordon Other Laboratory test result abnormalEtta Gordon Other Screening for malignant neoplasm of breastEtta Gordno Other Plan of Treatment DateCare ActivityDetailAuthorStart: 12-21-2024 End: 89-70-4083wfffuubmai28/04/2025 12:30 PM EDT Treatment [facility] [facility] [address] [facility] [address] [place] [address] Aric Aaron PTNOMS [place] Physical TherapyStart: 12-19-2024 End: 62-88-7994esegbxidwy69/02/2025 12:00 PM EDT Treatment [facility] [facility] [address] [facility] [address] [place] [address] Brian Hill PTANOMS [place] Physical TherapyStart: 56-60-4334Nthimoylq vaccination Influenza Vaccine (#1)[facility] HealthcareStart: 12-14-2024 End: 15-17-0559kjliwsdsdu03/28/2025 11:30 AM EDT Treatment [facility] [place] [facility] [address] [facility] [address] [place] [address] Anabell Montague PTANOMS [place] Physical TherapyStart: 12-14-2024 End: 23-94-4344Tptymoz encounter procedureNOMS CI PODIATRYComment on above: Hallux rigidus of left foot (Primary Dx); Hallux rigidus of right foot; Diabetes mellitus due to underlying condition with diabetic polyneuropathy, unspecified whether care home insulin use (HCC); Pain due to onychomycosis of toenails of both feet; Venous insufficiencyStart: 12-11-2024 End: 37-99-4933optwtqoacw54/25/2025 2:30 PM EDT Treatment [facility] [place] [facility] [address] [facility] [address] [place], [id number] Brian Hill PTANOMS [place] Physical TherapyStart: 12-07-2024 End: 69-44-9811zlpjsgstmn98/21/2025 12:00 PM EDT Treatment [facility] [place] [facility] [address] [facility] [address] [place] [address] Brian Hill PTANOMS [place] Physical TherapyStart: 12-05-2024 End: 55-89-2697bzslubxmiv59/19/2025 12:30 PM EDT Evaluation [facility] [place] [facility] [address] [facility] [address] [place] [address] Aric Aaron, HOLLIE Cervicalgia (Primary Dx)[facility] [place] [facility] Comment on above:Cervicalgia (Primary Dx)Start: 10-05-2024 End: 46-67-3114Bfodzwl encounter phandpuvz11/19/2025 10:20 AM EDT Office Visit [facility] [address] [facility] [address] [place] [address] Esequiel Reno DPM [address] [address] ArrivedNOMS CI PODIATRYComment on above:ArrivedStart: 36-46-4924Nmqckpurw for malignant neoplasm of breastMammogramNOMS Healthcare Start: 09-32-7438Onvpmouxo for malignant neoplasm of cervixNOMS HealthcareStart: 77-96-5909Zjujgzqmv for malignant neoplasm of cervixPap SmearNOMS Healthcare Start: 16-11-7842Jzjouoaol for malignant neoplasm of colonNOMS HealthcareMG Breast - bilateral ScreeningDayton Osteopathic HospitalUS Lower extremity vein - rightDayton Osteopathic HospitalXR Lumbar spine 2 or 3 Views [facility] Immunizations Immunization DateImmunizationNotesCare GfelblrnCwyyuwph05-88-0820olgkvfcre virus vaccine, unspecified formulationSammantha Aaron PTNONE Healthcare Payers DatePayer CategoryPayerPolicy [id number] Health InsuranceMOLINA MARKETPLACE Member Subscriber Plan / Payer (Effective 2024-Present) Name: Fern Cardoso Relation to Subscriber: Self Name: Fern Cardoso Payer ID: [id number] (NAIC) Group ID: Not on file Type: Not on file Address: [address] [id number] 2.1.652967.3.579.2.1068 [id number] ..1.110937.3.57[id number] 2..1.970500.3.57[id number] 2..1.101550.3.57[id number] 2.16.840.1.765040.3.57[id number] 2.16.840.1.945553.3.57[id number] 2.16.840.1.440984.3.57[id number] 2.16.840.1.231107.3.57[id number] 2.16.840.1.496102.3.57[id number] 2.16.840.1.353290.3.57[id number]-hvgZres Pay [id number] 2.840.1.520358.19 Social History DateTypeDetailFacilityUnknown if ever smokedCrown City [employer] Other Start: 56-71-3348Ylt Assigned At [facility] [employer] Other Start: 07-07-2018 End: 06-17-6736Zwcohgz smoking status NHISNever smoked tobacco (finding) [facility] Rehabilitationtart: 41-93-2874Mdp Assigned At [facility] Medical CenterTobast. [facility] smoking status NHISTobacco smoking consumption unknownNOMS HealthcareStart: 12-45-3160Mlvact identityIdentifies as female gender (finding)[facility] HealthcareStart: 74-06-6475Rclobu orientation Heterosexual (finding)[facility] HealthcareStart: 25-82-1442Vrkdxng use and exposure Smokeless tobacco non-userNOMS HealthcareStart: 10-05-2024 End: 47-30-3060Eyvqlzgqn beverage intakeLifetime non-drinker (finding)[facility] HealthcareStart: 42-00-5135Ytumukr of Social [facility] Medical Equipment Procedure CodeEquipment CodeEquipment Original TextEquipment IdentifierDates Arthroplasty, knee, total, minimally invasiveART SURF RT 14MM 6-9 C-D VEFDA Start: 75-99-8567Jtaedcuaqybu, knee, total, minimally invasiveCEMENT BONE 1X40 RADIOPAQUEFDAStart: 05-15-9704Ehtljhddxoze, knee, total, minimally invasive CEMENT BONE 1X40 RADIOPAQUEFDAStart: 50-60-9529Uakhqzxqaduf, knee, total, minimally invasiveEXTENSION STEM 14 X 30MMFDAStart: 34-63-5827Nzrjquaqnnag, knee, total, minimally invasiveFEMUR PERSONA RIGHT SIZE 7FDAStart: 07-04-2018 Arthroplasty, knee, total, minimally invasivePATELLA PERSONA 32MM VIVACIT-EFDA Start: 20-82-1766Ikfanmkedzyv, knee, total, minimally invasiveTIBIA PERSONA RIGHT SIZE DFDAStart: 20-38-0864Ncsouoijnvqa, knee, total, minimally invasiveART SURF RT 14MM 6-9 C-D VEFDAStart: 39-79-6631Mhxmxpcbntkr, knee, total, minimally invasiveCEMENT BONE 1X40 RADIOPAQUEFDAStart: 27-37-2314Pjfysihujret, knee, total, minimally invasiveCEMENT BONE 1X40 RADIOPAQUEFDAStart: 07-04-2018 Arthroplasty, knee, total, minimally invasiveEXTENSION STEM 14 X 30MMFDAStart: 63-03-2699Kftibwagaeiy, knee, total, minimally invasiveFEMUR PERSONA RIGHT SIZE 7FDAStart: 08-22-4553Ywqhzkmcrcxw, knee, total, minimally invasivePATELLA PERSONA 32MM VIVACIT-EFDAStart: 26-27-3725Ofqstmsoogmy, knee, total, minimally invasiveTIBIA PERSONA RIGHT SIZE DFDAStart: 21-06-9099Kfvbrpzkjfyu, knee, total, minimally invasiveART SURF RT 14MM 6-9 C-D VEFDAStart: 84-78-6577Hretffrexlyd, knee, total, minimally invasiveCEMENT BONE 1X40 RADIOPAQUEFDAStart: 07-04-2018 Arthroplasty, knee, total, minimally invasiveCEMENT BONE 1X40 RADIOPAQUEFDA Start: 92-17-7172Eovjaeddsxtg, knee, total, minimally invasiveEXTENSION STEM 14 X 30MMFDAStart: 63-45-1848Oahqmquapbrn, knee, total, minimally invasiveFEMUR PERSONA RIGHT SIZE 7FDAStart: 30-91-9837Imavhliveeys, knee, total, minimally invasivePATELLA PERSONA 32MM VIVACIT-EFDAStart: 99-61-8860Ybhhukaexzfq, knee, total, minimally invasiveTIBIA PERSONA RIGHT SIZE DFDAStart: 07-04-2018 Arthroplasty, knee, total, minimally invasiveART SURF RT 14MM 6-9 C-D VEFDA Start: 58-35-1815Xorvmmutlfuo, knee, total, minimally invasiveCEMENT BONE 1X40 RADIOPAQUEFDAStart: 93-51-9753Bairrbeznsnw, knee, total, minimally invasive CEMENT BONE 1X40 RADIOPAQUEFDAStart: 25-37-7203Niiojrfaqzhx, knee, total, minimally invasiveEXTENSION STEM 14 X 30MMFDAStart: 41-97-1412Jabxqerqdtxl, knee, total, minimally invasiveFEMUR PERSONA RIGHT SIZE 7FDAStart: 07-04-2018 Arthroplasty, knee, total, minimally invasivePATELLA PERSONA 32MM VIVACIT-EFDA Start: 38-80-8286Qjfteioplsht, knee, total, minimally invasiveTIBIA PERSONA RIGHT SIZE DFDAStart: 17-59-0515Cuavdeicgfgw, knee, total, minimally invasiveART SURF RT 14MM 6-9 C-D VEFDAStart: 60-17-1068Twldzmcuveue, knee, total, minimally invasiveCEMENT BONE 1X40 RADIOPAQUEFDAStart: 91-87-0859Epeosonxlxrj, knee, total, minimally invasiveCEMENT BONE 1X40 RADIOPAQUEFDAStart: 07-04-2018 Arthroplasty, knee, total, minimally invasiveEXTENSION STEM 14 X 30MMFDAStart: 59-36-2677Mmasugokhidq, knee, total, minimally invasiveFEMUR PERSONA RIGHT SIZE 7FDAStart: 58-31-3483Gnwdpyzrueym, knee, total, minimally invasivePATELLA PERSONA 32MM VIVACIT-EFDAStart: 62-80-1005Mqxrgnyourbg, knee, total, minimally invasiveTIBIA PERSONA RIGHT SIZE DFDAStart: 07-04-2018 Clinical Notes 10-22-2020 to 02-20-2025 Note Date & YdiwOngrMjlzzwsd01-72-5103 NoteUT Electrophysiology Consult Note Reason for visit: [...] diabetes obstructive sleep apnea was admitted to [facility] with shortness of breath and was noted [...] Intimate Partner Violence: Not At Risk (05/05/2023) [place] Safety & Environment Fear of Current or [...] Year: No Utilities: Not At Risk (05/05/2023) [facility] Utilities Threatened with loss of utilities: No [...] meal. 180 tablet 3 (more content not included)...[facility]09-21-2025 Note Please let her know overall things look ok on her ECHO. Pumping function is low normal at 50-55%. No significant valve abnormalities. Continue current medictions and follow-up as scheduled with Dr. Cronin. Thanks![facility]08-28-2025 History of Present illness Narrative* Esequiel Reno, [...] Strain: Low Risk (05/05/2023) Received from [facility] Overall Financial Resource Strain (CARDIA) Difficulty of Paying Living Expenses: Not hard at all Food Insecurity: No Food Insecurity (05/05/2023) Received from [facility] Hunger Vital Sign Within the past 12 months, you worried that your food would run out before you got the money to buymore.: Never true Ran Out of Food in the Last Year: Not on file Transportation Needs: No Transportation Needs (05/05/2023) Received from [facility] Transportation In the past 12 months, has lack of transportation kept you from medical appointments or from getting medications?: No Lack of Transportation (Non-Medical): Not on file Physical Activity: Not on file Stress: Not on file Social Connections: Not on file Intimate Partner Violence: Unknown (05/05/2023) Received from [facility] Humiliation, Afraid, Rape, and Kick questionnaire Fear of Current or Ex-Partner: No Emotionally Abused: Not on file Physically Abused: Not on file Sexually Abused: Not on file Housing Stability: Low Risk (05/05/2023) Received from [facility] Housing Stability Vital Sign Unable to [...] palpableDP and PT pedal pulses NEURO: 5.07 [place] Satish monofilament test intact to digits and [...] underlying condition with diabetic polyneuropathy, unspecified whether manager long term care insulin use (HCC) 4. Pain due to [...] Ibuprofen Esequiel Reno DPM documented in this encounterMercy Hospital St. LouisZbpmcbmkmv08-53-6027 History of Present illness Narrative* Aric Aaron, [...] toher neck. 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 Precautions: bilateral TKA, universal [...] to be instructed in home exercise program. Skilled Nursing Goals: To be met in 10 weeks [...] Please sign below. Date: documented in this encounterMercy Hospital St. LouisEzzubewolc78-63-5633 NoteCardiovascular Medicine [facility] SUBJECTIVE Chief Complaint Patient presents with [...] diabetes obstructive sleep apnea was admitted to [facility] with shortness of breath and was noted [...] (BMI) of 50.0 to 59.9 in adult ([facility]) Postoperative pain Status post total right knee replacement Thrombocytopenia RAVI (obstructive sleep apnea) Overactive bladder Screening mammogram for breast cancer Type 2 diabetes mellitus with hyperglycemia ([facility]) PONV (postoperative nausea and vomiting) Lumbar back pain Right leg swelling Takes dietary supplements Type 2 diabetes mellitus, without long-term current use of insulin ([facility]) Past Medical History: Diagnosis Date Abnormal ECG Acute kidney injury Arrhythmia Atrial fibrillation ([facility]) Atrial fibrillation ([facility]) CHF (congestive heart failure) ([facility]) Diabetes mellitus ([facility]) DVT (deep venous thrombosis) ([facility]) Hypertension Obesity BMI 55/58 PONV (postoperative [...] (6.25 mg) by mouth (more content not included)...[facility]08-13-2025 Note Patient is here today for a [...] for irregular heartbeat (occasional racing heart while sitting).[facility]06-19-2025 History of Present illness Narrative* Esequiel Reno, [...] Strain: Low Risk (05/05/2023) Received from [facility] Overall Financial Resource Strain (CARDIA) Difficulty of Paying Living Expenses: Not hard at all Food Insecurity: No Food Insecurity (05/05/2023) Received from [facility] Hunger Vital Sign Within the past 12 months, you worried that your food would run out before you got the money to buymore.: Never true Ran Out of Food in the Last Year: Not on file Transportation Needs: No Transportation Needs (05/05/2023) Received from [facility] Transportation In the past 12 months, has lack of transportation kept you from medical appointments or from getting medications?: No Lack of Transportation (Non-Medical): Not on file Physical Activity: Not on file Stress: Not on file Social Connections: Not on file Intimate Partner Violence: Unknown (05/05/2023) Received from [facility] Humiliation, Afraid, Rape, and Kick questionnaire Fear of Current or Ex-Partner: No Emotionally Abused: Not on file Physically Abused: Not on file Sexually Abused: Not on file Housing Stability: Low Risk (05/05/2023) Received from [facility] Housing Stability Vital Sign Unable to [...] palpableDP and PT pedal pulses NEURO: 5.07 [place] Satish monofilament test intact to digits and [...] underlying condition with diabetic polyneuropathy, unspecified whether manager long term care insulin use (HCC) 4. Pain due to [...] edema. Discussed condition in detail. Recommendation for acgs-dlv-shapfna compression stockings at this time and may consider prescription stockings in the future. Discussed hallux rigidus condition and arthritis to the great toe joints and becomes worse may consider possible further treatment Patient to continue with oral anti - inflammatories as needed for pain and recommended OTC medications such as tylenol or Ibuprofen Esequiel Reno DPM documented in this encounterMercy Hospital St. LouisLbkacywgzn52-41-3739 NoteSUBJECTIVE Reason for Visit: Fern Cardoso is a 63 y.o. year old female patient being seen for 4-month follow-up visit. HPI: Fern Cardoso is a 62-year-old with a medical history of hypertension, diabetes, A-fib/flutter, and obstructive sleep apnea who was admitted to [facility] in April 2023 for with shortness of [...] dysfunction Benign hypertensive cardiomyopathy with heart failure ([facility]) Anemia following surgery History of deep venous thrombosis Hypertension Hypokalemia Impaired mobility and activities of daily living Lack of stamina Morbid obesity with body mass index (BMI) of 50.0 to 59.9 in adult ([facility]) Postoperative pain Status post total right knee replacement Thrombocytopenia RAVI (obstructive sleep apnea) Overactive bladder Screening mammogram for breast cancer Type 2 diabetes mellitus with hyperglycemia ([facility]/H[facility]) PONV (postoperative nausea and vomiting) Lumbar [...] and soft. Musculoskeletal: Inspec (more content not included)...[facility]02-21-2025 NotePatient here for 4 mo follow up [...] palpitations. All other systems reviewed and are negative.[facility] 05-14-2023 Evaluation note* Encounter Date Diagnosis Assessment [...] forms for supplies and faxed back to [employer]. Pt states she will restart and become co mpliant w CPAP treatment. [employer] Other 11-17-2023 Evaluation note* Encounter Date Diagnosis [...] treatment plan. Patient left in stable condition [facility] [employer] Other 07-06-2021 Evaluation note* Diagnosis Onset Date Resolution Status Essential (primary) hypertension October 22, 2020 acuteParoxysmal atrial fibrillationacuteScreening mammogram for breast cancer acuteType 2 diabetes mellitus with hyperglycemiaacute [facility] Work Phone: Evaluation noteNo InformationNortSurgical Specialty Hospital-[facility]inated [facility] [employer] Other Evaluation note* Diagnosis Onset Date Resolution Status Paroxysmal atrial fibrillation acuteScreening mammogram for breast canceracuteType 2 diabetes mellitus with hyperglycemiaacuteWellness examinationacute [facility] Work Phone: Evaluation note* Diagnosis Onset Date Resolution Status Pain in left foot noneactiveLumbar back painacute [facility] Work Phone: Evaluation note* Diagnosis Onset Date Resolution Status Lumbar back pain acuteRight leg swellingacute [facility] Work Phone: Evaluation note* Diagnosis Hallux rigidus of left foot- Primary Hallux rigidus of right foot Diabetes mellitus due to underlying condition with diabetic polyneuropathy, unspecified whether care home insulin use (HCC) Pain due to onychomycosis of toenails of both feet Venous insufficiency Unspecified venous (peripheral) insufficiency documented in this encounter [facility] HealthcareEvaluation note* Diagnosis Cervicalgia- Primary Hallux rigidus of left foot- Primary Hallux rigidus of right foot Diabetes mellitus due to underlying condition with diabetic polyneuropathy, unspecified whether manager long term care insulin use (HCC) Pain due to onychomycosis of toenails of both feet Venous insufficiency Unspecified venous (peripheral) insufficiency documented in this encounter [facility] HealthcareEvaluation note* Diagnosis Hallux rigidus of left foot- Primary Hallux rigidus of right foot Diabetes mellitus due to underlying condition with diabetic polyneuropathy, unspecified whether manager long term care insulin use (HCC) Pain due to onychomycosis [...] HistoryC sectionSurgical Historyright knee arthroplasty05/07Hospitalization Historysee above [employer] Other Reason for visit Narrative* Rehabilitation - Outpatient (Routine) - AuthorizedSpecialtyDiagnoses / ProceduresReferred By ContactReferred To ContactPhysical Therapy Diagnoses Cervicalgia Procedures [facility]AP[facility] EVALUATION LOW COMPLEX 20 MINS [facility] OFFICE/OUTPATIENT NEW HIGH MDM 60 MINUTES Rosa Guzman MD [address] [place] [address] fax: Aric Aaron, PT Referral IDStatusReasonStart DateExpiration DateVisits RequestedVisits [id number] [facility] Healthcare Summary Purpose Family History No [...] section and content) DATE CREATED AUTHOR 08/28/2018 [facility] DATE CREATED AUTHOR AUTHOR'S ORGANIZ ATION 05/07/2021 [facility] DATE CREATED AUTHOR AUTHOR'S ORGANIZ ATION 09/19/2021 [facility] DATE CREATED AUTHOR AUTHOR'S ORGANIZ ATION 02/27/2022 [facility] DATE CREATED AUTHOR AUTHOR'S ORGANIZ ATION 12/16/2024 [facility] EPIC DATE CREATED AUTHOR AUTHOR'S ORGANIZ ATION 01/21/2025 [facility] DATE CREATED AUTHOR AUTHOR'S ORGANIZ ATION 02/21/2025 [facility] REASON FOR VISIT (unrecogniz ed section [...] BE BASED ON THE PRIMARY CLINICAL RECORDS. [facility]. provides no warranty or guarantee of the accuracy or completeness of information in this document.
--- OUTSIDE RECORDS SUMMARY | 2025-03-09 08:37 | XMS_ITS | Clinical Summary ---
Author Organization [employer] Address [id number] [address] [place] [address] Care Team Providers Care Division Controller Name Role Phone Unavailable Primary Care Provider Unavailabl e Social History Tobacco UseTypesPacks/DayYears UsedDateSmoking Tobacco: Never Assessed CommentsUnknownSex and Gender InformationValueDate RecordedSex Assigned at Not on fileLegal QxeGiggeo81/17/2025 3:08 PM EDTGender IdentityNot on fileSexual OrientationNot on file Plan of Treatment Health MaintenanceDue DateLast DoneCommentsDepression Nespnsoup74/07/1974Tobacco Scpplktsq51/07/1974Adult BMI Zzqnierbu81/07/1980DTaP,Tdap and Td Vaccines (1 - Tdap)1980Pap Smear1982Zoster (Shingles) Vaccine (2 of 2)04/19/2023 02/22/2023OVID-19 Vaccine (4 - 2024- season)501/06/2021, 08/02/2020, 07/05/2020Influenza Tfvmakp41/, 02/22/2023, 02/04/2022, Additional history existsRSV ( or age 60+ yrs) (1 - 1-dose 75+ series) 2036 [employer] Not on file Insurance
--- OUTSIDE RECORDS SUMMARY | 2025-03-09 08:37 | XMS_ITS | Encounter Summary ---
Author Organization [facility] Address [address] [place] [address] Care Team Providers Care Biology Faculty Member Name Role Phone Unavailable Primary Care Provider Unavailabl e Encounter Details DateTypeDepartmentCare Team (Latest Contact Info)Qqrrnfuhknj00/20/2025Travel Social History Tobacco UseTypesPacks/DayYears UsedDateSmoking Tobacco: NeverSmokeless Tobacco: NeverAlcohol UseStandard Drinks/WeekCommentsNever0 (1 standard drink = 0.6 oz pure alcohol)CommentsUnknownSex and Gender InformationValueDate Recorded Sex Assigned at EjyxnRfpqzy69/14/2025 9:28 AM EDTLegal TbiNsxlcc55/15/2023 6:45 PM EDTGender QxfbvswpUomuzf06/14/2025 9:28 AM EDTSexual OrientationStraight 09/30/2024 9:28 AM EDTdocumented as of this encounter Plan of Treatment DateTypeDepartmentCare Team (Latest Contact Info)Ijhvawfyhti36/12/2026 9:50 AM ESTOffice Visit [facility] [address] [facility] [address] [place] [address] Esequiel Reno, JUNIOR [address] [facility] 5 [place] [address] documented as of this encounter Visit Diagnoses Not on filedocumented in this encounter
--- OUTSIDE RECORDS SUMMARY | 2025-03-09 08:37 | XMS_ITS | Encounter Summary ---
Author Organization [facility] Address [address] [place] [address] Care Team Providers Care Infertility Medical Assistant Name Role Phone Unavailable Primary Care Provider Unavailabl e Encounter Details DateTypeDepartmentCare Team (Latest Contact Info)Nxcohzddhfh91/13/2025Travel Social History Tobacco UseTypesPacks/DayYears UsedDateSmoking Tobacco: NeverSmokeless Tobacco: NeverAlcohol UseStandard Drinks/WeekCommentsNever0 (1 standard drink = 0.6 oz pure alcohol)CommentsUnknownSex and Gender InformationValueDate Recorded Sex Assigned at JvvnmDobdys01/14/2025 9:28 AM EDTLegal EigUytbuv36/15/2023 6:45 PM EDTGender XqwrhljjAeiotr65/14/2025 9:28 AM EDTSexual OrientationStraight 09/30/2024 9:28 AM EDTdocumented as of this encounter Plan of Treatment DateTypeDepartmentCare Team (Latest Contact Info)Uwibytcokfy63/12/2026 9:50 AM ESTOffice Visit [facility] [address] [facility] [address] [place] [address] Esequiel Reno, JUNIOR [address] [facility] 5 [place] [address] documented as of this encounter Visit Diagnoses Not on filedocumented in this encounter
--- OUTSIDE RECORDS SUMMARY | 2025-03-09 08:38 | XMS_ITS | Encounter Summary ---
Author Organization [facility] Address [address] [place] [address] Care Team Providers Care Caustic Plant Worker Name Role Phone Unavailable Primary Care Provider Unavailabl e Encounter Details DateTypeDepartmentCare Team (Latest Contact Info)Alrkcacbadl72/20/2025amboo flowsheet [facility] [address] [place] [address] Esequiel Reno DPM [address] [address] Social History Tobacco UseTypesPacks/DayYears UsedDateSmoking Tobacco: NeverSmokeless Tobacco: NeverAlcohol UseStandard Drinks/WeekCommentsNever0 (1 standard drink = 0.6 oz pure alcohol)CommentsUnknownSex and Gender InformationValueDate Recorded Sex Assigned at ZwvivTaueec96/14/2025 9:28 AM EDTLegal KxiBrbbjp49/15/2023 6:45 PM EDTGender HofyxymaOzjyrv77/14/2025 9:28 AM EDTSexual OrientationStraight 09/30/2024 9:28 AM EDTdocumented as of this encounter Plan of Treatment DateTypeDepartmentCare Team (Latest Contact Info)Kwpdldnaghc87/12/2026 9:50 AM ESTOffice Visit [facility] [address] [place] [address] Esequiel Reno DPM [address] [address] documented as of this encounter Visit Diagnoses Not on filedocumented in this encounter
--- NOTE | 2025-03-09 09:15 | MR_ITS ---
[address] [address] Patient Name: FERN CARDOSO MRN: [facility]:[id number] date: 1960 Sex: F Assigned Patient Location: MRI Current Patient Location: MRI Accession/Order Number: [id number] Exam Date: 03/09/2025 09:15 Report Date: 03/09/2025 13:18 At the request of: NON-STAFF PHYSICIAN Procedure: MR cervical spine wo/w con MR cervical spine wo/w con 03/09/2025 9:57 AM SIGNS AND SYMPTOMS: ^Chronic Neck Pain PROTOCOL: Multiplanar multisequence MR images of the cervical spine with and without IV contrast CONTRAST: 20 mL of intravenous COMPARISON: 01/19/2025. FINDINGS: The bones of the cervical spine are in anatomic alignment. There is preservation of vertebral body heights. There is mild disc height loss at C4-C5, C5-C6, and C6-C7. The marrow signal is within normal limits. The cord is normal in signal. No epidural or paraspinous fluid collection is appreciated. The visualized paraspinous soft tissues are within normal limits. The prevertebral soft tissues are within normal limits. There is no abnormal postcontrast enhancement. At C2-C3: There is a normal disc, central canal, and neural foramen. At C3-C4: There is a broad-based disc bulge with facet hypertrophy and uncovertebral joint spurring. There is severe left neural foraminal narrowing and mild spinal canal narrowing. At C4-C5: There is a broad-based disc bulge with uncovertebral joint spurring and facet hypertrophy. There is moderate left and mild right neural foraminal narrowing with mild spinal canal narrowing. At C5-C6: There is a broad-based disc bulge with facet hypertrophy and operative joint spurring. There is moderate to severe right with mild left neural foraminal narrowing. There is mild spinal canal narrowing. At C6-C7: Facet hypertrophy is present bilaterally. There is mild bilateral neural foraminal narrowing. There is mild spinal canal narrowing. At C7-T1: There is a normal disc, central canal, and neural foramen. MR/MR cervical spine wo/w con IMPRESSION: At C3-C4: There is a broad-based disc bulge with facet hypertrophy and uncovertebral joint spurring. There is severe left neural foraminal narrowing and mild spinal canal narrowing. At C4-C5: There is a broad-based disc bulge with uncovertebral joint spurring and facet hypertrophy. There is moderate left and mild right neural foraminal narrowing with mild spinal canal narrowing. At C5-C6: There is a broad-based disc bulge with facet hypertrophy and operative joint spurring. There is moderate to severe right with mild left neural foraminal narrowing. There is mild spinal canal narrowing. There is no abnormal postcontrast enhancement. Impression dictated by: Carson Cavanaugh M.D. 03/09/2025 1:18 PM Dictation Location: [place] [address] Electronically authenticated by: [id number] Y Date: 03/09/2025 13:18
== END 2025-03-09 08:34 | disposition home or self-care (01) ==
LOC: MRI 08:33
PROVIDERS: PCP Internal Medicine
DX: M50.31 Other cervical disc degeneration, high cervical region (principal); M50.321 Other cervical disc degeneration at C4-C5 level; M50.322 Other cervical disc degeneration at C5-C6 level
CPT/HCPCS: 72156; A9575

== ENCOUNTER 2025-03-13 10:28 | Outpatient (OUT) | payer OTHER, SELFPAY ==
--- OUTSIDE RECORDS SUMMARY | 2025-03-08 10:30 | XMS_ITS | Encounter Summary ---
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 terminal 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 use (HCC) (Primary Dx); Pain due to onychomycosis of toenails of both feet; Venous insufficiency; Hallux rigidus of left foot; Hallux rigidus of right foot Social History Tobacco UseTypesPacks/DayYears UsedDateSmoking Tobacco: NeverSmokeless Tobacco: Never Tobacco Cessation:Counseling Given: Yes Alcohol UseStandard Drinks/WeekCommentsNever0 (1 standard drink = 0.6 oz pure alcohol)CommentsUnknownSex and Gender InformationValueDate RecordedSex Assigned at CndyqFnkoyk39/14/2025 9:28 AM EDTLegal EenLkyiox36/15/2023 6:45 PM EDTGender MnmmarhxPidnsh26/14/2025 9:28 AM EDTSexual OrientationStraight 09/30/2024 9:28 AM EDTdocumented as of this encounter Last Filed Vital Signs Vital SignReadingTime TakenCommentsBlood Pressure--Pulse--Temperature-- Respiratory Hakb888605/08/2024 10:34 AM ESTOxygen Saturation--Inhaled Oxygen Concentration--Tbkvjs716 kg (348 lb)03/08/2025 10:34 AM AXLQncgzh456.1 cm (5' 5 )03/08/2025 10:34 AM ESTBody [...] Strain: Low Risk (05/05/2023) Received from [facility] Overall Financial Resource Strain (CARDIA) Difficulty of Paying Living Expenses: Not hard at all Food Insecurity: No Food Insecurity (05/05/2023) Received from [facility] Hunger Vital Sign Within the past 12 months, you worried that your food would run out before you got the money to buymore.: Never true Ran Out of Food in the Last Year: Not on file Transportation Needs: No Transportation Needs (05/05/2023) Received from [facility] Transportation In the past 12 months, has lack of transportation kept you from medical appointments or from getting medications?: No Lack of Transportation (Non-Medical): Not on file Physical Activity: Not on file Stress: Not on file Social Connections: Not on file Intimate Partner Violence: Unknown (05/05/2023) Received from [facility] Humiliation, Afraid, Rape, and Kick questionnaire Within the last year, have you been afraid of your partner or ex-partner?: No Emotionally Abused: Not on file Physically Abused: Not on file Sexually Abused: Not on file Housing Stability: Low Risk (05/05/2023) Received from [facility] Housing Stability Vital Sign Unable [...] DP and PT pedal pulses NEURO: 5.07 [place] Satish monofilament test intact to digits and forefoot bilaterally 125Hz tuning fork diminished to 1st MPJ bilaterally ORTHO: Positive pain on palpation to toenails of the left 1,2,3,4,5 toes and right 1,2,3,4,5 toes Range of motion 1st MPJ less than 65 degrees dorsiflexion bilaterally with negative crepitus ASSESSMENT 1. 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 Pain due to [...] Plan of Treatment DateTypeDepartmentCare Team (Latest Contact Info)Aqsauauddku57/12/2026 9:50 AM ESTOffice Visit [facility] [address] [facility] [address] [place] [address] Esequiel Reno DPM [address] [facility] [address] [place] [address] documented as of this encounter [...]
--- OUTSIDE RECORDS SUMMARY | 2025-03-13 10:35 | XMS_ITS | Clinical Summary ---
Author Organization [facility] Address [address] [address] Care Team Providers Care Packaging Machine Supplies Distributor Name Role Phone Unavailable Primary Care Provider [...] Problems No known active problems Encounters DateTypeDepartmentCare ReewAenwkjyvldw41/20/2025 10:30 AM ESTOffice Visit [facility] [address] [place] [phone] Esequiel Reno, DPEma Diabetes mellitus due to underlying condition with diabetic polyneuropathy, unspecified whether [facility] insulin use (HCC) (Primary Dx); Pain due to onychomycosis of toenails of both feet; Venous insufficiency; Hallux rigidus of left foot; Hallux rigidus of right foot03/08/2025amboo flowsheet [facility] [address] [facility] [address] [place] [address] Esequiel Reno DPM 03/08/20256506Mqftdf57/13/4592Vaykur89/28/2025 10:50 AM EDTOffice Visit [facility] [address] [place] [address] [place] [address] Esequiel Reno DPM Hallux rigidus of left foot (Primary Dx); Hallux rigidus of right foot; Diabetes mellitus due to underlying condition with diabetic polyneuropathy, unspecified whether [facility] insulin use (HCC); Pain due to onychomycosis of toenails of both feet; Venous axwudbintyizx42/28/2025[facility] flowsheet [facility] [address] [place] [address] [place] [address] Esequiel Reno DPM 12/14/20248977Hxlazw45/27/2025Travelfrom Last 3 Months Family History Medical HistoryRelationNameCommentsDiabetesMaternal GrandfatherNoahDiabetes Maternal GrandmotherNoahCancerMotherWillaDiabetesMotherWillaDiabetesMother's BrotherBilly joeCancerMother's SisterWandaRelationNameStatusCommentsMaternal GrandfatherNoahAliveMaternal GrandmotherNoahAliveMotherWillaAliveMother's BrotherBilly joeAliveMother's SisterWandaAlive Social History Tobacco UseTypesPacks/DayYears UsedDateSmoking Tobacco: NeverSmokeless Tobacco: Never Tobacco Cessation:Counseling Given: Yes Alcohol UseStandard Drinks/WeekCommentsNever0 (1 standard drink = 0.6 oz pure alcohol)CommentsUnknownSex and Gender InformationValueDate RecordedSex Assigned at ZqjfoRjzvop12/14/2025 9:28 AM EDTLegal UfoVwbpzd08/15/2023 6:45 PM EDTGender AhavrrixTsfcvk51/14/2025 9:28 AM EDTSexual OrientationStraight 09/30/2024 9:28 AM EDT Last Filed Vital Signs Vital SignReadingTime TakenCommentsBlood Wxdbyuuo456/11756 12:00 PM EST Pulse--Temperature--Respiratory Xwyr409905/08/2024 10:34 AM ESTOxygen Saturation-- Inhaled Oxygen Concentration--Wdjlch843 kg (348 lb)03/08/2025 10:34 AM ESTHeight 165.1 cm (5' 5 )03/08/2025 10:34 AM ESTBody Mass Index57.9103/08/2025 10:34 AM EST Plan of Treatment DateTypeDepartmentCare Team (Latest Contact Info)Laiqcvznqwl27/12/2026 9:50 AM ESTOffice Visit [facility] [address] [facility] 120 [place] [address] Esequiel Reno DPM [address] [facility] [address] [place] [address] Health MaintenanceDue DateLast DoneCommentsCT Qpleauwtucby31/07/1962Colonoscopy 2Colorectal Cancer Qromtqqmh97/07/1962FIT-DNA1961FIT1961 FOBT07/24/19613241Fmfgbtyirekpa28/07/1962Pap Smear1982Cervical Cancer Xnrqgppve71/07/1992HPV/Ayhjxq4807/25/19917942Icpjvfchk94/07/2002COVID-19 Vaccine ( season)501/06/2021, 08/02/2020, 07/05/2020Influenza Vaccine Vpxemxhjf46/03/2025, 03/08/2024, 02/22/2023, Additional history exists Pneumococcal Vaccine: Pediatrics (0 to 5 Years) and At-Risk Patients (6 to 64 Years)Aged OutNo longer eligible based on patient's age to complete this topic Insurance
--- OUTSIDE RECORDS SUMMARY | 2025-03-13 10:35 | XMS_ITS | Encounter Summary ---
Author Organization [facility] Address [address] [facility] [place] [address] Care Team Providers Care Financial Operations Consultant Name Role Phone Unavailable Primary Care Provider Unavailabl e Encounter Details DateTypeDepartmentCare Team (Latest Contact Info)Avgcqliybef13/20/2025amboo flowsheet [facility] [address] [place] [address] Esequiel Reno DPM [address] [address] Social History Tobacco UseTypesPacks/DayYears UsedDateSmoking Tobacco: NeverSmokeless Tobacco: NeverAlcohol UseStandard Drinks/WeekCommentsNever0 (1 standard drink = 0.6 oz pure alcohol)CommentsUnknownSex and Gender InformationValueDate Recorded Sex Assigned at GxnxrTasinb12/14/2025 9:28 AM EDTLegal LznEcpqjq53/15/2023 6:45 PM EDTGender WtlzrmyzKqqjpj47/14/2025 9:28 AM EDTSexual OrientationStraight 09/30/2024 9:28 AM EDTdocumented as of this encounter Plan of Treatment DateTypeDepartmentCare Team (Latest Contact Info)Dyotnsthbxh66/12/2026 9:50 AM ESTOffice Visit [facility] [address] [place] [address] Esequiel Reno DPM [address] [address] documented as of this encounter Visit Diagnoses Not on filedocumented in this encounter
--- OUTSIDE RECORDS SUMMARY | 2025-03-13 10:35 | XMS_ITS | Encounter Summary ---
Author Organization [facility] Address [address] [place] [address] Care Team Providers Care Cylinder Devalver Name Role Phone Unavailable Primary Care Provider Unavailabl e Encounter Details DateTypeDepartmentCare Team (Latest Contact Info)Cwdqsxzxbrm54/20/2025Travel Social History Tobacco UseTypesPacks/DayYears UsedDateSmoking Tobacco: NeverSmokeless Tobacco: NeverAlcohol UseStandard Drinks/WeekCommentsNever0 (1 standard drink = 0.6 oz pure alcohol)CommentsUnknownSex and Gender InformationValueDate Recorded Sex Assigned at HpyawMtqbrm16/14/2025 9:28 AM EDTLegal IyxWtzaha62/15/2023 6:45 PM EDTGender SksrsiqhDrpzth69/14/2025 9:28 AM EDTSexual OrientationStraight 09/30/2024 9:28 AM EDTdocumented as of this encounter Plan of Treatment DateTypeDepartmentCare Team (Latest Contact Info)Tezlivawfqa42/12/2026 9:50 AM ESTOffice Visit [facility] [address] [facility] [address] [place] [address] Esequiel Reno, JUNIOR [address] [facility] 5 [place] [address] documented as of this encounter Visit Diagnoses Not on filedocumented in this encounter
--- OUTSIDE RECORDS SUMMARY | 2025-03-13 10:35 | XMS_ITS | Encounter Summary ---
Author Organization [facility] Address [address] [place] [address] Care Team Providers Care Shuttle Preparation Supervisor Name Role Phone Unavailable Primary Care Provider Unavailabl e Encounter Details DateTypeDepartmentCare Team (Latest Contact Info)Mzfepgpaora25/13/2025Travel Social History Tobacco UseTypesPacks/DayYears UsedDateSmoking Tobacco: NeverSmokeless Tobacco: NeverAlcohol UseStandard Drinks/WeekCommentsNever0 (1 standard drink = 0.6 oz pure alcohol)CommentsUnknownSex and Gender InformationValueDate Recorded Sex Assigned at CqoyoTsfrxs40/14/2025 9:28 AM EDTLegal QgqWxrsrc91/15/2023 6:45 PM EDTGender SubepqlpUkakki04/14/2025 9:28 AM EDTSexual OrientationStraight 09/30/2024 9:28 AM EDTdocumented as of this encounter Plan of Treatment DateTypeDepartmentCare Team (Latest Contact Info)Oqqlcjpyxfl30/12/2026 9:50 AM ESTOffice Visit [facility] [address] [facility] [address] [place] [address] Esequiel Reno, JUNIOR [address] [facility] [address] [place] [address] documented as of this encounter Visit Diagnoses Not on filedocumented in this encounter
--- OUTSIDE RECORDS SUMMARY | 2025-03-13 10:35 | XMS_ITS | Encounter Summary ---
Author Organization [facility] Address [address] [place] [address] Care Team Providers Care Network Programmer Name Role Phone Rosa Guzman MD Primary Care Provider [phone] Encounter Details DateTypeDepartmentCare Team (Latest Contact Info)Qukckdrdazt88/21/2025Results Follow-Up [facility] [address] [place] [address] Aspen Cook, SHOTWELD OPERATOR [address] [place] [address] Complete Echo (TTE) w/wo Imaging Agent, Strain, 3D, Bubble Study Social History Tobacco UseTypesPacks/DayYears UsedDateSmoking Tobacco: NeverSmokeless Tobacco: NeverAlcohol UseStandard Drinks/WeekCommentsNot Currently0 (1 standard drink = 0.6 oz pure alcohol)[facility] UtilitiesAnswerDate RecordedIn the past 12 months has the [employer], gas, oil, or water [email or web address] threatened to shut off services in your home?No05/05/2023Humiliation, Afraid, Rape, and Kick questionnaireAnswerDate RecordedWithin the last year, have you been afraid of your partner or ex-partner?No05/05/2023Emotionally AbusedNot on file05/05/2023hysically Abused Not on file05/05/2023Sexually [...] CommentsNoSex and Gender InformationValueDate RecordedSex Assigned at Pztefj8707/12/2023 6:46 AM EDTLegal WhtYlqqay71/29/2022 10:14 PM EDTGender EnypmgsoTfntpz20/25/2024 6:46 AM EDTSexual OrientationHeterosexual or Straight 07/12/2023 6:46 AM EDTdocumented as of this encounter Functional Status * BPAnswerDate of MilqnbgtppJvpxlu821/7802/20/2025 11:30 AM Otilia Bond MA * PulseAnswerDate of YkmkfxwcdwEfijmr9201/04/2025 11:30 AM Otilia Bond MA * Patient PositionAnswerDate of DwlrhuyallCntvcwJxvkzdp45/04/2025 11:30 AM Otilia Sen MA * BPAnswerDate of YcpolupflwJbkvii033/7802/20/2025 11:30 AM Otilia Bond MA * PulseAnswerDate of MgdgmsgquiWigpjb3198/04/2025 11:30 AM Otilia Bond MA * LuS0MfqrgyCibp of LvuttfeskdImmchm0811 11:30 AM Otilia Bond MA * BP LocationAnswerDate of AssessmentAuthorLeft arm02/20/2025 11:30 AM Otilia Sen MA * Patient PositionAnswerDate of QngpmnqqhoRwvxqvGxyiblr89/04/2025 11:30 AM Otilia Sen MA documented as of this encounter Miscellaneous Notes * Result Encounter Note - Aspen Cook CNP - 01/07/2025 1:02 PM EDT Please let her know overall things look ok on her ECHO. Pumping function is low normal at 50-55%. No significant valve abnormalities. Continue current medictions and follow-up as scheduled with Dr. Cronin. Thanks! documented in this encounter Plan of Treatment Not on file documented as of this encounter Visit Diagnoses Not on filedocumented in this encounter Care Teams Team MemberRelationshipSpecialtyStart DateEnd Date Rosa Guzman MD [address] [place] [address] [address] [place] [address] PCP - GeneralInternal Medicine11/29/24documented as of this encounter
--- OUTSIDE RECORDS SUMMARY | 2025-03-13 10:35 | XMS_ITS | Clinical Summary ---
Author Organization [facility] Address [address] [place] [address] Phone Care Team Providers Care Quantometer Operator Name Role Phone Sindi Tierney MD Primary Care Provider [phone] Social History Tobacco UseTypesPacks/DayYears UsedDateSmoking Tobacco: Never Assessed CommentsUnknownSex and Gender InformationValueDate RecordedSex Assigned at Not on fileLegal JppJslcgz66/26/2022 10:35 AM ESTGender IdentityNot on file Sexual OrientationNot on file Plan of Treatment Not on file Care Teams Team MemberRelationshipSpecialtyStart DateEnd Date Sindi Tierney MD [address] [place] [address] [address] [place] [address] [facility]08/18/18
--- OUTSIDE RECORDS SUMMARY | 2025-03-13 10:35 | XMS_ITS | Clinical Summary ---
Author Organization [facility] [place] Address [address] [address] Care Team Providers Care Digital Forensic Analyst Name Role Phone Rosa Guzman MD Primary Care Provider [phone] Allergies Active AllergyReactionsCriticalityNoted DateCommentsCiprofloxacinUnknown 02/14/20243811SozeofsuvqrtmnpVgdvrlipokjjcd03/11/2024 Pt states she gets loopy JxnkwsufcwgYfevw19/17/1791OnyyxqmaOjncl74/11/2024 Medications MedicationSigDispense QuantityRefillsLast FilledStart DateEnd DateStatus metFORMIN [...] days.5Active Active Problems ProblemNoted DateDiagnosed DateTakes dietary hmfrkctgply65/04/2025 Overview (06/09/2024): Last Assessment & Plan: Condition: stable Follow up in: three months Type 2 diabetes mellitus, without long-term current use of fttiwjd1105/23/2024 Overview (06/09/2024): Last Assessment & Plan: Condition: [...] months with PCP Lumbar back pain01/26/2024ight leg zgwrojyt85/09/2024ONV (postoperative nausea and vomiting)10/28/2023OSA (obstructive sleep apnea)10/05/2023Screening mammogram for breast sfhxth6510/05/2023Type 2 diabetes mellitus with hyperglycemia 10/05/2023nemia following xflznup21History of deep venous tvvurmbdbc51HypertensionHypokalemia Impaired mobility and activities of daily ipbmhp9205/17/2023 05/17/2023Lack of htqhnil43Morbid obesity with body mass index (BMI) of 50.0 to 59.9 in adultostoperative pain05/17/2023 05/17/2023Status post total right knee eirtdrtcvwd94 Lseefnieegtdxkkc61aroxysmal atrial kvecmsliknfs36/22/2024 Assessment & Plan (06/30/2023 2:19 PM EDT): [id number]-UOTi= 4 Continue eliquis anticoagulation, amiodarone for rhythm control and coreg for rate control Assessment & Plan (06/18/2023 11:12 AM EST): Continue amiodarone 200 mg daily, and coreg 6.25 mg bid. Will add midodrine 5 mg tid to regime for noted hypotension and symptoms of lightheadedness/dizziness and near syncope. Continue eliquis anticoaogulation- denied any bleeding tendencies Grade II diastolic nrgbwcvedyw55/22/2024enign hypertensive cardiomyopathy with heart uopqzmn6505/10/2023 Assessment & Plan (06/30/2023 2:20 PM EDT): [...] Assessment & Plan (06/18/2023 11:12 AM EST): [facility] II- currently without exacerbation Continue GDMT- ASA, coreg, farxiga, losartan, entresot and aldatone Diuretic therapy- bumex 1 mg daily Monitor daily weights, I&O, fluid restriction 1.5-2L/day, renal function and electrolytes Overactive rgokggu0603/03/2013 Resolved Problems ProblemNoted DateDiagnosed DateResolved DateAcute kidney ydbehi0005/17/2023/02/2024 Encounters DateTypeDepartmentCare TnwrPnyvcllanij25/04/2025 11:00 AM ESTOffice Visit [facility] [address] [place] [address] Jose Luis Cronin MD S/P ablation of atrial fibrillation (Primary Dx)01/07/2025Results Follow-Up [facility] [address] [place] [address] Aspen Cook CNP Complete Echo (TTE) w/wo Imaging Agent, Strain, 3D, Bubble Study01/05/2025Orders Only [facility] [address] [place] [phone] ProviderXavi MD 01/04/2025 1:20 PM EDTAncillary Procedure [facility] [address] [place] [phone] Awareness of fwgjljbibt54/18/2025Orders Only [facility] [address] [place] [phone] Adenike Serrano MD 12/13/2024[facility] [address] [place] [facility] [place] [address] Otilia Peterson MA Acute on chronic systolic heart failure, NYHA class 2 (CMS/HCC); Essential /27/2025[facility] [address] [place] [facility] [address] Otilia Peterson MA from Last 3 Months Family History Medical HistoryRelationNameCommentsHeart attackBrotherStrokeBrotherAtrial fibrillationFatherHeart attackMotherStrokeMotherRelationNameStatusComments BrotherDeceasedFatherDeceasedMotherDeceased Social History Tobacco UseTypesPacks/DayYears UsedDateSmoking Tobacco: NeverSmokeless Tobacco: Never Tobacco Cessation:Counseling Given: Not Answered Alcohol UseStandard Drinks/WeekCommentsNot Currently0 (1 standard drink = 0.6 oz pure alcohol)[facility] UtilitiesAnswerDate RecordedIn the past 12 months has the [employer], gas, oil, or water [employer] threatened to shut off services in your [...] CommentsNoSex and Gender InformationValueDate RecordedSex Assigned at Jgdwxx6607/12/2023 6:46 AM EDTLegal FzyOfjpbe65/29/2022 10:14 PM EDTGender UepijwdxHkssmk91/25/2024 6:46 AM EDTSexual OrientationHeterosexual or Straight 07/12/2023 6:46 AM EDT Last Filed Vital Signs Vital SignReadingTime TakenCommentsBlood Lrdhwqgb549/7802/20/2025 11:30 AM EST Moihw369502/20/2025 11:30 AM GQNJfmemijrwpw57.3 ??C (97.3 ??F)10/28/2023 3:35 PM EDTRespiratory Fksr5973 7:05 PM EDTOxygen Nhbboeqaxl19%02/20/2025 11:30 AM ESTInhaled Oxygen Concentration--Vkkeeu424 kg (349 lb)02/20/2025 11:30 AM EST Zmlwwv317.1 cm (5' 5 )02/20/2025 11:30 AM ESTBody Mass Index58.0802/20/2025 11:30 AM EST Plan of Treatment Health MaintenanceDue DateLast DoneCommentsCT Gynbukpfavem15/07/1962Colonoscopy 2Colorectal Cancer Kvzmthnpe90/07/1962Diabetes: Hemoglobin A1C 1961FIT-DNA1961FIT1961FOBT07/24/19618383Oiywlwcejyzca09/07/1962 Diabetes: Retinopathy Kvounnnqj81/07/1972Depression Qwuvbefyd60/07/1974Diabetes: Urine Protein Czumumona00/07/1981Pap Smear1982Adult Wgzradt8107/25/1983 Cervical Cancer Dfdbmdurx92/07/1992HPV/Cyokvx6707/25/19918946Olwzxptic60/07/2002Zoster Vaccines (2 of 2)411/3COVID-19 Vaccine ( season) [...] ImplantedTypeAreaManufacturerDevice IdentifierShelf Expiration DateModel / Serial / LotMonitor,Cardiac,Lux,Dxii+[facility] - [id number] - [id number] Implanted:Qty: 1 on 07/12/2023 by [facility] Luis [facility] HospitalImplantable Loop RecorderVibra [facility]11/24/2024M312 / [id number] / Procedures Procedure NamePriorityDate/TimeAssociated DiagnosisCommentsCARDIAC DEVICE CHECK CHECK - SADFZASzystbt26/22/2025 1:11 PM EDT Awareness of heartbeats COMPLETE TRANSTHORACIC ECHO (TTE) W/WO IMAGING AGENT, STRAIN, 3D, BUBBLE STUDY Mkahydl9201/04/2025 9:51 AM EDT CARDIAC DEVICE CHECK - REMOTE - LOOP RECORDER (ILR)Djxpfgy3301/04/2025 12:00 AM EDTfrom Last 3 Months Results * CARDIAC DEVICE CHECK - REMOTE - LOOP RECORDER (ILR) (01/08/2025 1:11 PM EDT) Specimen (Source)Anatomical Location / LateralityCollection Method / Volume Collection TimeReceived Time Narrative Authorizing ProviderResult TypeResult StatusJose Luis Cronin [facility] IMPLANTABLE CARDIAC DEVICE PROCEDURESFinal ResultPerforming OrganizationAddressCity/State/ZIP Code Phone Number CPACS * Complete Echo (TTE) w/wo Imaging Agent, Strain, 3D, Bubble Study (01/04/2025 9:51 AM EDT)Anatomical RegionLateralityModalityUltrasound Narrative Authorizing ProviderResult TypeResult StatusHistorical Provider [facility] ECHO PROCEDURESFinal Result * Cardiac device check [...] MemberRelationshipSpecialtyStart DateEnd Date Rosa Guzman MD [address] [facility] [address] [place] [address] PCP - GeneralInternal Medicine11/29/24
--- OUTSIDE RECORDS SUMMARY | 2025-03-13 10:37 | XMS_ITS | CCD ---
Author Organization [facility] Care Team Providers Care Photogeologist Name Role Phone Hans Whiteside Attending Unavailable [...] Rafael Pickard MD Attending Unavailable Mekhi WOOD, [facility] Unavailable Rafael Pickard MD Attending Unavailable Mekhi WOOD, Rosa Referring Unavailable Mekhi WOOD, [facility] Unavailable Rafael Pickard MD Attending Unavailable Mekhi WOOD, [facility] Unavailable NICOLASA CRONIN Referring [...] Facility (7 sources)Penicillins; Translations: [PENICILLINS]Drug allergy (disorder) 85-40-4726RhpitCgrMagruder Memorial Hospital Repository (12 sources)Ciprofloxacin; Translations: [CIPROFLOXACIN]Drug Ylqppke14-20-4270 Comment:nausea and diarrheaMagruder Hospital (11 sources)Penicillin GDrug Ujwteao86-25-4119hrxslKpawchnvuWyandot Memorial Hospital (12 sources)traMADol; Translations: [TRAMADOL]Drug Onuwoar80-75-4775JuvdvwmGreene Memorial Hospital (6 sources)Substance with penicillin structure and antibacterial mechanism of action (substance)Drug ztjflvu81-80-6118BpepjimHkxtv [employer] Other (6 sources)patient allergy list reviewed by nurse or physiciaPropensity to adverse jpuersgxs54-68-9992Bhkxdll:FileThis Other (6 sources)TraMADol & Dietary Manage Prod *ANALGESICS - OPIOIPropensity to adverse ormjqxcxw13-01-3700WzflbyqDkqhjiVilka Other (6 sources)Allergies ReconciledPropensity to adverse reactionsretickr Other (1 source)Penicillin; Translations: [penicillin]Drug AllergyMansfield Hospital Repository (1 source)diphenhydrAMINE; Translations: [DIPHENHYDRAMINE]Drug Gmrzkuu68-82-5367 [facility] Repository Medications Current Medications MedicationDrug Class(es)DatesSig (Normalized)Sig (Original)apixaban 5 mg oral tablet (15 sources)Factor Xa InhibitorStart: 06-18-2023 End: 81-96-4732cxdo 1 tablet by mouth in the morningapixaban (Eliquis) 5 MG tablet Take 5 mg by mouth in the morning and 5 mg in the evening. 12/21/2023 12/15/2024 Activetake 1 tablet by mouth twice dailyApixaban 5 MG 1 tablet Orally Twice a day Activeaspirin 81 mg delayed release oral tablet (10 sources)Platelet Aggregation Inhibitor, Nonsteroidal Anti-inflammatory Drug Start: 35-26-2957jioy 81 mg by mouth twice dailyAspirin Active 81 MG PO Twice daily 40 July 14, 2018 12:00amStart: 06-22-2018 End: 09-95-2188gvmu 81 mg by mouth once dailyAspirin Discontinued 81 MG PO Daily June 22, 2018 1:00am July 14, 2018 12:23pmASPIRIN 81 MG - this medication is not being screened (6 sources)Start: 21-77-7496HWJIZVJ 81 MG - this medication is not being screened ASPIRIN 81 MG - this medication is not being screened( ) Active -Hx Entry for 0 *Reorder from [employer] for eRx and Interaction Alerts* Feb, Activebenzonatate 100 mg oral capsule (6 sources)Non-narcotic AntitussiveStart: 97-80-9831nupz 1 capsule by mouth three times daily as neededTessalon Perles 100 MG 1 capsule as needed Orally Three times a day for 7 days Feb, ActiveStart: 24-22-0565Prwarmggqsj 200 MG benzonatate 200mg, 1 Capsule 2 to 3 times per day;cough # 30, 01/26/2022, No Refill. Active Oral 2 to 3 times per day;cough for 0 Jan, Active bumetanide 1 mg oral tablet (20 sources)Loop DiureticStart: 06-18-2023 End: 10-99-0405hbin 1 mg by mouth once dailyBumetanide Active 1 MG PO Daily August 12, 2023 12:00amcarvedilol 6.25 mg oral tablet (15 sources)alpha-Adrenergic Kayli, beta-Adrenergic BlockerStart: 06-18-2023 take 6.25 mg by mouth twice dailyCarvedilol Active 6.25 MG PO Twice daily June 18, 2023 1:00amdapagliflozin 10 mg oral tablet (15 sources)Sodium-Glucose Cotransporter 2 InhibitorStart: 06-18-2023 End: 25-83-2815mvxbtmvrxquqd (Farxiga) 10 MG Take 10 mg by mouth 12/21/2023 12/20/2024 Activetake 1 tablet by mouth once dailyDapagliflozin Propanediol 10 MG 1 tablet Orally Once a day Activedoxycycline hyclate 100 mg oral tablet (1 source)Tetracycline-class DrugStart: 57-05-7480duoq 100 mg by mouth twice dailyDoxycycline Hyclate Active 100 MG PO Twice daily February 01, 2024 12:00amlosartan potassium 25 mg oral tablet (11 sources)Angiotensin 2 Receptor BlockerStart: 11-47-9823dhvw 25 mg by mouth once dailyLosartan Active 25 MG PO Daily October 14, 2023 12:00ammagnesium oxide 400 mg oral tablet (15 sources)Start: 21-06-4149tkcm 1 tablet by mouth in the morningmagnesium oxide (Mag-Ox) 400 (240 Mg) MG tablet Take 400 mg by mouth in the morning and 400 mg before bedtime. 09/14/2024 ActiveStart: 48-77-6127soxk 400 mg by mouth once dailyMagnesium Oxide Active 400 MG PO Daily June 18, 2023 1:00amtake 1 tablet by mouth every twenty-four hoursMagnesium Oxide 400 MG 1 tablet as needed Orally Once a day Activemetoprolol tartrate 50 mg oral tablet (19 sources)beta-Adrenergic BlockerStart: 86-80-1623qhub 1 tablet by mouth once dailyMetoprolol Succinate ER 50MG Metoprolol Succinate ER 50MG, 1 (one) Tablet Tablet daily # 0, 09/02/2021, No Refill. Active Oral daily for 0 *Pick strength- form from [employer] for eRX* August, ActiveStart: 07-14-2018 End: 00-31-7907qvgl 50 mg by mouth every twelve hoursMetoprolol Tartrate Discontinued 50 MG PO Q12H 60 July 14, 2018 12:00am June 18, 2023 3:38pm Start: 06-22-2018 End: 95-88-7388gwlt 50 mg by mouth once daily in [...] ActivepredniSONE 20 mg oral tablet (3 sources)Start: 08-52-9385woxx 1 tablet by mouth every twelve hoursprednisone 20 MG 1 tablet Orally BID for 5 17 Feb, 2023 Activespironolactone 25 mg oral tablet (15 sources)Aldosterone AntagonistStart: 45-68-8336sanh 25 mg by mouth once dailySpironolactone Active 25 MG PO Daily June 18, 2023 1:00amsulfamethoxazole 800 mg / trimethoprim 160 mg oral tablet (3 sources)Dihydrofolate Reductase Inhibitor Antibacterial, Sulfonamide AntimicrobialStart: 80-62-3197kpth 1 tablet by mouth twice daily Sulfamethoxazole-Trimethoprim 800-160 MG sulfamethoxazole-trimethoprim 800- 160mg, 1 (one) Tablet two times daily # 20, 01/20/2022, No Refill. Active Oral two times daily for 0 04 Jan, 2022 Active Completed/Discontinued Medications MedicationDrug Class(es)DatesSig (Normalized)Sig (Original)acetaminophen 325 mg oral tablet (5 sources)Start: 07-14-2018 End: 92-98-5353ocow 650 mg by mouth every four hoursAcetaminophen Discontinued 650 MG PO Q4H 0 July 14, 2018 12:00am June 18, 2023 3:36pmamiodarone hydrochloride 400 mg oral tablet (12 sources)AntiarrhythmicStart: 10-14-2023 End: 94-75-2979pvfe 200 mg by mouth once dailyAmiodarone Discontinued 200 MG PO Daily October 14, 2023 9:42am February 14, 2024 10:08amStart: 06-18-2023 End: 57-81-0635cpwy 400 mg by mouth once dailyAmiodarone Discontinued 400 MG PO Daily June 18, 2023 1:00am October 14, 2023 9:42amtake 1 tablet by mouth every twenty-four hoursAmiodarone HCl 400 MG 1 tablet Orally Once a day Active amitriptyline hydrochloride 25 mg oral tablet (6 sources)Tricyclic AntidepressantStart: 52-36-9543Uymfjsyhsmfod HCl 25MG Amitriptyline HCl 25MG, 1 (one) Tablet Tablet at bedtime # 30, 09/17/2021, No Refill. Active Oral at bedtime for 0 *Pick strength-form from [employer] for eRX* Sep, Not-Taking/PRNtake 1 tablet by [...] oral capsule (5 sources)Cephalosporin AntibacterialStart: 01-24-2024 End: 40-11-0098qdwq 500 mg by mouth three times dailyCephalexin Discontinued 500 MG PO Three times daily 06 11January 24, 2024 12:00am February 01, 2024 4:25pmStart: 36-88-4556blnu 1 capsule by mouth every eight hoursCephalexin 500 MG 1 capsule Orally three times a day for 10 day(s) Sep, Not-Taking/PRN diclofenac sodium 75 mg delayed release oral tablet (19 sources)Nonsteroidal Anti-inflammatory DrugStart: 06-18-2023 End: 59-01-2048skqp 75 mg by mouth twice dailyDiclofenac Sodium Discontinued 75 MG PO Twice daily June 18, 2023 1:00am October 14, 2023 9:42amStart: 11-27-2021 take 1 tablet by mouth twice dailyDiclofenac Sodium 75MG Diclofenac Sodium 75MG, 1 Tablet Tablet twice a day # 0, 11/27/2021, No Refill. Active Oral twice a day for 0 *Pick strength-form from [employer] for eRX* Nov, ActiveStart: 06-22-2018 End: 47-10-2737ecde 75 mg by mouth once daily in the morningDiclofenac Sodium Discontinued 75 MG PO Every morning June 22, 2018 1:00am July 14, 2018 12:23pmtake 1 tablet by mouth twice daily at mealtimeDiclofenac Sodium 75 MG TAKE 1 TABLET BY MOUTH TWICE DAILY WITH FOOD for 90 Not-Taking/PRNdocusate sodium 100 mg oral capsule (5 sources)Start: 07-14-2018 End: 69-19-0614rsjx 100 mg by mouth twice dailyDocusate Sodium Discontinued 100 MG PO Twice daily July 14, 2018 12:00am June 18, 2023 3:38pm0.4 ml enoxaparin sodium 100 mg/ml prefilled syringe (5 sources)Low Molecular Weight HeparinStart: 07-06-2018 End: 49-56-7424Kbymwhzpos (Lovenox) 40 mg/0.4 mL Syringe Discontinued 40 MG SUBCUT Every 12 hours at 1000 & 2200 July 06, 2018 12:00am July 14, 2018 12:23pmhydrOXYzine pamoate 50 mg oral capsule (10 sources)AntihistamineStart: 07-06-2018 End: 45-59-8079xanz 25 mg by mouth every three hoursHydroxyzine Pamoate Discontinued 25 MG PO Q3H July 06, 2018 12:00am July 14, 2018 12:24pm Start: 07-06-2018 End: 58-56-0903amde 50 mg by mouth every three hoursHydroxyzine Pamoate Discontinued 50 MG PO Q3H July 06, 2018 12:00am July 14, 2018 12:23pm Ketorolac (12 sources)Nonsteroidal Anti-inflammatory Drug, Cyclooxygenase InhibitorStart: 23-19-9573Kzsmibg per 15 mg May, 30 mgStart: 06-78-6083Phowksg per 15 mg Oct, 30 mg24 hr metFORMIN hydrochloride 500 mg extended release oral tablet (20 sources)BiguanideStart: 06-18-2023 End: 20-39-4670hjbd 500 mg by mouth once daily in the eveningMetformin Discontinued 500 MG PO Every evening 90 December 07, 2023 8:39am December 07, 2023 8:40amStart: 09-34-3250qykr 1 tablet by mouth once daily in the evening Metformin 500mg metFORMIN 500mg, 1 (one) Tablet every evening # 0, 03/16/2022, No Refill. Active oral every evening for 0 *Reorder from [employer] for eRx and Interaction Alerts* Feb, Activetake [...] mg oral tablet (5 sources)CorticosteroidStart: 12-16-2023 End: 59-25-6998pura 1 tablet by mouth onceMethylprednisolone (Medrol (Eric)) 4 mg tablets,dose pack Discontinued 0 PO per package directions December 28, 2023 2:58pm January 24, 2024 10:03am PO PER PKG DIR for 6 daysmidodrine hydrochloride 5 mg oral tablet (5 sources)alpha-Adrenergic AgonistStart: 06-21-2023 End: 29-32-6687hdpf 1 dose by mouth once daily at bedtimeMidodrine Discontinued 5 MG PO Three times daily June 21, 2023 1:00am August 12, 2023 11:11am donot give last dose of day after 6PM or within 4 hrs of bedtimeMultivitamin (Multiple Vitamins) Tablet (5 sources)Start: 06-22-2018 End: 69-68-7467akoi 1 tablet by mouth once dailyMultivitamin (Multiple Vitamins) Tablet Discontinued 1 TAB PO Daily June 22, 2018 1:00am July 14, 2018 12:27pmMultivitamin With Folic Acid (Thera) 400 mcg Tablet (5 sources)Start: 07-14-2018 End: 70-00-7081xjka 1 tablet by mouth once dailyMultivitamin With Folic Acid (Thera) 400 mcg Tablet Discontinued 1 TAB PO Daily July 14, 2018 12:00am June 18, 2023 3:38pmoxyCODONE hydrochloride 5 mg oral tablet (20 sources)Opioid AgonistStart: 07-14-2018 End: 27-76-3760kzil 5 mg by mouth every six hoursOxycodone Discontinued 5 MG PO Every 6 hours 05 09July 14, 2018 12:00am June 18, 2023 3:38pmStart: 07-06-2018 End: 57-61-5842khiv 10 mg by mouth every four hoursOxycodone Discontinued 10 MG PO Every 4 hours July 06, 2018 2:17pm July 14, 2018 12:27pmStart: 07-06-2018 End: 84-55-6775ylcj 5 mg by mouth every four hoursOxycodone Discontinued 5 MG PO Every 4 hours July 06, 2018 2:17pm July 14, 2018 12:28pmsacubitril 24 mg / valsartan 26 mg oral tablet (8 sources)Angiotensin 2 Receptor BlockerStart: 06-18-2023 End: 37-88-8357kldm 1 tablet by mouth twice dailySacubitril-Valsartan (Entresto) 24-26 mg tablet Discontinued 1 TAB PO Twice daily June 18, 2023 1:00am August 12, 2023 11:12amtake 1 tablet by mouth every twelve hoursEntresto 24-26 MG 1 tablet Orally Twice a day ActiveTriamcinolone (12 sources)CorticosteroidStart: 39-28-8173Pifqsrt -40 mg May, 40 mg Start: 24-11-4560RTMFURG - 10 mg Oct, 40 mgvitamin b12 1 mg oral tablet (13 sources)Vitamin V59Rhvxo: 06-22-2018 End: 22-03-7158ynll 1000 ug by mouth once dailyCyanocobalamin (Vitamin [...] renal failure syndrome; Translations: [Acute kidney failure, unspecified]94-08-9485BcjludhgRdzyx bronchitis (12 sources)Acute bronchitis; Translations: [Acute bronchitis due to other specified organisms]EpisodicAdministrative/social admission (5 sources)Other reduced mobility; Translations: [Impaired mobility and activities of daily living]09-23-0218YvqqclriNqukacr dysrhythmias (20 sources)Premature beats; Translations: [Other premature beats]Onset: 04-16-0863ToojpraNjsrwbb dysrhythmias (4 sources)Palpitations; Translations: [Palpitations]Onset: 33-73-1616Yqgwvzqg Chronic obstructive pulmonary disease and bronchiectasis (6 sources)Bronchitis; Translations: [Bronchitis, not specified as acute or chronic]EpisodicCoagulation and hemorrhagic disorders (11 sources)Immune thrombocytopenic purpura; Translations: [Immune thrombocytopenic purpura]39-83-7497JkoimyoMphzrxlcpa associated with dizziness or vertigo (2 sources)Dizziness; Translations: [Dizziness]Onset: 92-55-8503Ireclvpp Conduction disorders (7 sources)Left bundle-branch block, unspecified; Translations: [Left bundle branch block]Onset: 85-06-5729EpfvklvCrchavmbhm heart failure; nonhypertensive (10 sources)Congestive heart failure; Translations: [Heart failure, unspecified] Onset: 02-39-5312PaikzbqMhqccbhwga and other anemia (11 sources)Anemia; Translations: [Anemia, unspecified]Onset: 07-29-2018 96-35-2348XatmbtvcXhybekow mellitus with complications (17 sources)Hyperglycemia due to type 2 diabetes mellitus; Translations: [Type 2 diabetes mellitus with hyperglycemia]22-94-1938KmbnragGwjacvac mellitus without complication (6 sources)Impaired fasting glycemia; Translations: [Impaired fasting glucose] EpisodicEssential hypertension (20 sources)Essential hypertension; Translations: [Essential (primary) hypertension]Onset: 58-37-3460AibefwqBzujf and electrolyte disorders (5 sources)Hypokalemia; Translations: [Hypokalemia]29-92-5824Omhmidmi Genitourinary symptoms and ill-defined conditions (6 sources)Finding of frequency of urination; Translations: [Frequency of micturition]EpisodicHypertension with complications and secondary hypertension (2 sources)Hypertensive heart disease with heart failure; Translations: [Hypertensive heart disease with heartfailure]Onset: 83-52-5942HkbqpguCzyfdkz and fatigue (2 sources)Fatigue; Translations: [Fatigue]Onset: 81-85-2142ZuxwlqfnOlmzmhy (4 sources)Pain in toe; Translations: [Tinea unguium]32-78-3930Fqghimlp Osteoarthritis (20 sources)Osteoarthritis; Translations: [Unspecified osteoarthritis, unspecified site]Onset: 75-62-2642VnyqaugVrsxn circulatory disease (2 sources)Presence of other cardiac implants and grafts; Translations: [Presence of other cardiac implants and grafts]Onset: 57-36-1546AwvhnodGeijl circulatory disease (6 sources)Elevated blood-pressure reading without diagnosis of hypertension; Translations: [Elevated blood-pressure reading, without diagnosis of hypertension]EpisodicOther connective tissue disease (11 sources)History of total knee arthroplasty; Translations: [Presence of right artificial knee joint]97-96-1948AhtxdinNkqze connective tissue disease (6 sources)Pain in limb; Translations: [Pain in right finger(s)]EpisodicOther connective tissue disease (1 source)Pain in left foot; Translations: [Pain in limb]47-69-2012QfvumvdaAccdn connective tissue disease (2 sources)Swelling of right lower limb; Translations: [Other specified soft tissue disorders]56-78-9757AcuvehqhQzwiv connective tissue disease (2 sources)Other specified soft tissue disorders; Translations: [Swelling of limb]46-66-3489OuktfivxGkuki diseases of bladder and urethra (11 sources)Overactive bladder; Translations: [Overactive bladder]Onset: 208233-68-6516MmlduqoIoclr diseases of veins and lymphatics (4 sources)Vascular insufficiency; Translations: [Venous insufficiency (chronic) (peripheral)]41-28-5057UvukomplFdfsg gastrointestinal disorders (6 sources)Irritable bowel syndrome with diarrhea; Translations: [Irritable bowel syndrome with diarrhea]ChronicOther gastrointestinal disorders (6 sources)Diarrhea; Translations: [Diarrhea, unspecified]EpisodicOther nervous system disorders (5 sources)Postoperative pain ; Translations: [Other acute postprocedural pain] 07-78-0629XptgupsfUsowi nutritional; endocrine; and metabolic disorders (6 sources)Morbid obesity; Translations: [Morbid (severe) obesity due to excess calories]Onset: 86-01-2314HugemoyFdarz nutritional; endocrine; and metabolic disorders (17 sources)Body mass index 40+ - severely obese; Translations: [Body mass index (BMI) 60.0-69.9, adult]77-07-7616FrortoqFsqnp screening for suspected conditions (not mental disorders or infectious disease) (18 sources)Abnormal electrocardiogram [ECG] [EKG]; Translations: [Other abnormal and inconclusive findings on diagnostic imaging of breast]Onset: 54-65-5393OdzugolvLhmda upper respiratory disease (6 sources)Seasonal allergic rhinitis; Translations: [Other seasonal allergic rhinitis]Onset: 05-16-7410PsxpxdhDdees upper respiratory disease (6 sources)Allergic rhinitis; Translations: [Allergic rhinitis, unspecified] ChronicOther upper respiratory infections (6 sources)Sinusitis; Translations: [Chronic sinusitis, unspecified]ChronicPeri- ; endo-; and myocarditis; cardiomyopathy (except that caused by tuberculosis or sexually transmitted disease) (2 sources)Cardiomyopathy in diseases classified elsewhere; Translations: [Cardiomyopathy in diseases classified elsewhere]Onset: 04-27-8013Keaxakv Phlebitis; thrombophlebitis and thromboembolism (5 sources)H/O: Deep vein thrombosis; Translations: [Personal history of other venous thrombosis and embolism]97-21-0237RniemozbBlhkzoyq codes; unclassified (14 sources)Obstructive sleep apnea syndrome; Translations: [Obstructive sleep apnea (adult) (pediatric)]Onset: 672174-39-3536UmiedyvCfnslncs codes; unclassified (1 source)Obstructive sleep apnea (adult) (pediatric)ChronicResidual codes; unclassified (6 sources)Family history of diabetes mellitus; Translations: [Family history of diabetes mellitus]EpisodicResidual codes; unclassified (6 sources)Localized edema; Translations: [Localized edema]EpisodicSkin and subcutaneous tissue infections (12 sources)Localized infection of skin AND/OR subcutaneous tissue; Translations: [Unspecified local infection of skin and subcutaneous tissue] Onset: 66-68-3792FrrguocmShwuelgzxgo; intervertebral disc disorders; other back problems (13 sources)Low back pain; Translations: [Lumbago]Onset: EpisodicUnclassified (3 sources)Other ventricular tachycardia; Translations: [Other ventricular tachycardia] Past or Other Problems Problem ClassificationProblemDateDocumented DateEpisodic/ChronicNonspecific chest pain (6 sources)Chest pain; Translations: [Chest pain, unspecified]Onset: 06-25-2015 EpisodicOther circulatory disease (2 sources)Personal history of other diseases of the circulatory system; Translations: [Personal history of other diseases of the circulatory system] Onset: 71-81-6945JjlhqcdqBibqr gastrointestinal disorders (4 sources)Diarrhea, unspecified; Translations: [DIARRHEA UNSPECIFIED]Onset: 31-05-5291YdgllrrlVifhp liver diseases (6 sources)Elevated levels of transaminase & lactic acid dehydrogenase; Translations: [Nonspecific elevation of levels of transaminase or lactic acid dehydrogenase (LDH)]Onset: 94-05-1823VdkmhkwdInnew non-traumatic joint disorders (6 sources)Arthralgia of the ankle and/or foot; Translations: [Pain in joint, ankle and foot]Onset: 39-88-1180SvzaktunPukdz non-traumatic joint disorders (6 sources)Arthralgia of the lower leg; Translations: [Pain in joint, lower leg] Onset: 32-79-3078OxhfsrkqRwgjh upper respiratory infections (6 sources)Acute maxillary sinusitis; Translations: [Acute recurrent maxillary sinusitis]Onset: 51-69-1357SzbbepteXwywqwvc codes; unclassified (2 sources)Other specified postprocedural states; Translations: [Other specified postprocedural states]Onset: 79-57-7173PnikpqgqPyycpakdqkvz (1 source)Contact with and (suspected) exposure to covid-19 Z20.822Unclassified (5 sources)Lack of stamina; Translations: [Impaired endurance]67-76-7344Jvdcd infection (1 source)COVID-19 Results Test NameValueInterpretationReference RangeFacilityOffice Visiton 02-20-2025 Follow-up [id number] Fern Cardoso 1960 F Date Provider Department Center 02/20/2025 Yoana-NICOLASA CRONIN ELAINE [facility] Family History Problem Relation Age of Onset Heart attack Mother Stroke Mother Atrial fibrillation Father Heart attack Brother Stroke Brother Family Status - Relation Status Age at Mother Father Brother Level of Service:20854 [place] OFFICE/OUTPATIENT ESTABLISHED LOW [facility] 20 MIN Reason for Visit and Comments: Follow-up [755237] - Patient is here today for a 3 month follow up. Patient states she feels ok. Patient denies chest pain, Patient complains of increase in dizziness/lightheaded, palpitation/racing heart which has decrease with the increase in carvedilol with position changes, neck and back pain. Congestive Heart Failure [127] Atrial Fibrillation [80] Hypertension [856086] Dizziness [375863] - Increased dizziness/light headed with position changes Fatigue [46] - Increased in fatigue Palpitations [174496]NormalCleveland Clinic Euclid HospitalHLA K68-Dnyldg 73-76-6263QXK B27 Intrp-MayoSEE BELOWNormalMansfield HospitalComment on above:Result Comment: RESULT: HLA-B27 antigen was not detected. ADDITIONAL INFORMATION Method: Flow Cytometry CLIA: [id number] CLIA [employer]: LINDEN DUNCAN,Ph.D. Test Performed by: [address] [address] [employer]: Linden Duncan Ph.D.; CLIA# [id number] By: #### HLA L42-Zbyv #### [place], [place] [address]HLA L66-WktmQckzqkmcChvoplUss ApplicableMansfield HospitalComment on above:Performed By: #### HLA D12-Jrss #### [address] [address]Fdatspslewhi Office/Clinic Noteon 69-83-6078Pqlcxvecxbzy Office/Clinic NoteChief Complaint neck pain, lower back [...] facilitate the conversation. 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 Explain if yes: [_] History of unusual rashes ([_]) - were any seen by a customer care coordinator or biopsied by any provider? ([_]) History [...] Skin: Nailfold capillar (more content not included)...NormalBlanchard Sims Health SystemANA Ttr-6-Bndleb 35-25-9910NFE Cytoplasmic Pattern-MayoNot ReportedNormal [facility] Health SystemComment on above:Performed By: #### Antinuclear Antibody HEp-2 Substrate-May #### [facility] [address] [place], [place] [address]NUU Lab Comment-MayoNot ReportedNormalBluniversity of vermont health networkard Sims Health SystemComment on above:Performed By: #### Antinuclear Antibody HEp-2 Substrate- May #### [facility] [address] [place], [place] [address]MMF Pattern (2)-MayoNot ReportedNormalBluniversity of vermont health networkard Sims Health SystemComment on above:Performed By: #### Antinuclear Antibody HEp-2 Substrate- May #### [facility] [address] [place], [place] [address]INP Pattern-MayoNot ReportedNormalTrihealth Bethes[facility] Butler Hospital Health SystemComment on above:Performed By: #### Antinuclear Antibody HEp-2 Substrate- May #### [facility] [address] [place], [place] [address]IRU Titer (2)-MayoNot ReportedNormalTrihealth Bet[facility] Butler Hospital Health SystemComment on above:Performed By: #### Antinuclear Antibody HEp-2 Substrate- May #### [facility] [address] [place], [place] [address]PWT Titer-MayoNot ReportedNormalTrihealth Bethes[facility] Butler Hospital Health SystemComment on above:Performed By: #### Antinuclear Antibody HEp-2 Substrate- May #### [facility] [address] [place], [place] [address]EAi-1 ILSA-MayoSEE BELOWNormal<1:80 (Negative)[facility] Health SystemComment on above:Result Comment: RESULT: <1:80 (Negative) ADDITIONAL INFORMATION Method: Immunofluorescence using HEp-2 cellular substrate. Test Performed by: [facility] [address] [place] [id number] Log Roper: Linden Duncan Ph.D.; CLIA# [id number] By: #### Antinuclear Antibody HEp-2 Substrate-May #### [facility] [address] [place], [place] [address]JEK Ab-[facility] 58-87-8142MYL Ab-Reece<15.6Normal<20.0 (Negative)[facility] HospitalComment on above:Result Comment: Interpretation: Antibodies to CCP not detected. If clinical symptoms are strongly indicative for rheumatoid arthritis, suggest testing for Rheumatoid Factor, S (RHUT) and, if positive, Rheumatoid Factor Panel, S (RFPN), which includes differentiation of rheumatoid factor IgM and IgA isotypes. Test Performed by: [facility] [place] [address] Log Roper: Linden Duncan Ph.D.; CLIA# [id number] By: #### Cyclic Citrullinated Peptide Antibody-Ma #### [facility] [address] [place], [place] [address]JG-Z and SS-B Ab, S-[facility] [phone]-A/Ro IgG-Reece<0.2 Normal<1.0 (Negative)[facility] HospitalComment on above:Performed By: #### CD:[id number] #### [facility] [address] [place], [place] [address]OW-N/La IgG-Reece<0.2Normal<1.0 (Negative)[facility] HospitalComment on above:Result Comment: Test Performed by: [facility] [place] [address] [employer] Roper: Linden Duncan Ph.D.; CLIA# [id number] By: #### CD:[id number] #### [facility] [address] [place], [place] [address]Xnhjlkgjae Factor, Serumon 81-95-7625Dlrnbukvee Factor,Serum <10.3Gsnzan0.0-14.0M[facility]field HospitalComment on above:Performed By: #### CD:[id number] #### [address] [address]YFZlt 40-55-1916KTE [Mass/Vol]2.0 mg/LNormal0.0-9.9BAdams County Regional Medical CenterComment on above:Result Comment: For [...] FUTURE CARDIAC EVENTS.Performed By: #### CRP #### [address] [address]STIqt 30-71-4475Rbi Rate41 mm/hrHigh0-30Mansfield HospitalComment on above:Performed By: #### ESR #### [address] [address]Ddexlb Onlyon 36-27-5929Qwaltw [id number] Fern Cardoso A 1960 F Date Provider Department Center 01/05/2025 [id number], HISTORICAL CARD [facility] Family History Problem Relation Age of Onset Heart attack Mother Stroke Mother Atrial fibrillation Father Heart attack Brother Stroke Brother Family Status - Relation Status Age at Mother Father Brother DeceasedNormalUniOhio State Health SystemOrders Onlyon 33-69-8886Sxkzkc [id number] TristanFern A 1960 F Date Provider Department Center 01/04/2025 [id number] REINOSO [facility] CARD [facility] Family History Problem Relation Age of Onset Heart attack Mother Stroke Mother Atrial fibrillation Father Heart attack Brother Stroke Brother Family Status - Relation Status Age at Mother Father Brother DeceasedNormalUniOhio State Health SystemOrders Onlyon 75-67-8437Ffcwif [id number] TristanFern A 1960 F Date Provider Department Center 12/02/2024 [id number] REINOSO [facility] CARD [facility] Family History Problem Relation Age of Onset Heart attack Mother Stroke Mother Atrial fibrillation Father Heart attack Brother Stroke Brother Family Status - Relation Status Age at Mother Father Brother DeceasedNoalUOhioHealth Hardin Memorial HospitalOffice Visiton 75-37-1409Zjqlcq-up [id number] Fern Cardoso A 1960 F Date Provider Department Center 11/29/2024 BENY LAZAR CARD [facility] Family History Problem Relation Age of Onset Heart attack Mother Stroke Mother Atrial fibrillation Father Heart attack Brother Stroke Brother Family Status - Relation Status Age at Mother Father Brother Level of Service:95298 [place] OFFICE/OUTPATIENT ESTABLISHED MOD MDM 30 MIN Reason for Visit and Comments: Congestive Heart Failure [127] Atrial Fibrillation [80] Hypertension [759103][facility] HospitalOrders Onlyon 77-57-9786Qssvua [id number] CardosoFern briggs A 1960 F Date Provider Department Center 10/28/2024 NICOLASA WILLIS HVC CARD [place] [facility] Family History Problem Relation Age of Onset Heart attack Mother Stroke Mother Atrial fibrillation Father Heart attack Brother Stroke Brother Family Status - Relation Status Age at Mother Father BrotherNoMercy Health Fairfield HospitalOffice Visiton 97-28-7022Xokjcl- up [id number] Fern Cardoso A 1960 F Date Provider Department Center 06/09/2024 [id number] CROFT CARD [facility] Family History Problem Relation Age of Onset Heart attack Mother Stroke Mother Atrial fibrillation Father Heart attack Brother Stroke Brother Family Status - Relation Status Age at Mother Father Brother Level of Service:18402 [place] OFFICE/OUTPATIENT ESTABLISHED LOW MDM 20 MINNormal [facility] HospitalOrders Onlyon 21-20-7889Coowbq [id number] TristanFern A 1960 F Date Provider Department Center 06/09/2024 [id number] CROFT [facility]VC CARD [place] [facility] Family History Problem Relation Age of Onset Heart attack Mother Stroke Mother Atrial fibrillation Father Heart attack Brother Stroke Brother Family Status - Relation Status Age at Mother Father BrotherNormalUOhioHealth Hardin Memorial HospitalOrders Onlyon 15-91-0952Euzmru [id number] Cardoso,Fern A 1960 F Date Provider Department Center 05/15/2024 NICOLAS JEFFREY CARD [facility] Family History Problem Relation Age of Onset Heart attack Mother Stroke Mother Atrial fibrillation Father Heart attack Brother Stroke Brother Family Status - Relation Status Age at Mother Father BrotherNormalUniversity of The University Of [facility] Medical [facility] Health Galveston CampusBasophils Auto (Bld) [#/Vol]on 82-08-3761Asgtroxeh (Bld) [#/Vol]0.0 10 3/uL0.0-0.1FMercy Memorial HospitalBasophils/100 WBC Auto (Bld)on 93-93-7837Rwoipwdpa/100 WBC (Bld)1.0 % 0.2-2.0[facility] HospitalEosinophils/100 WBC Auto (Bld)on 46-88-8934Rcynmnvxnpa/100 WBC (Bld)3.6 %0.9-7.0[facility] Erythrocyte distribution width Auto (RBC) [Ratio]on 41-32-5942Fgvhnxhksrc distribution width (RBC) [Ratio]13.6 %11.0-15.0[facility] Estimated glomerular filtration rate (GFR) non- Americanon 10-19-2023 GFR/1.73 sq M.predicted among non-blacks MDRD (S/P/Bld) [Vol rate/Area]41 mL/min/{1.73_m2}Low>=60Mag[facility] HospitalHematocrit Auto (Bld) [Volume fraction]on 13-31-4977Ftrmhfwkrm (Bld) [Volume fraction]36.4 %36.0-48.0 [facility] HospitalHemoglobin [Mass/volume] in Bloodon 10-19-2023 Hemoglobin (Bld) [Mass/Vol]11.5 g/dLLow12.0-16.0[facility] HospitalLaboratory - Chemistry and Chemistry - challengeon 34-99-8097Wcassdt [Mass/Vol]8.5 mg/dL8.5-10.1FMercy Memorial HospitalChloride [Moles/Vol] 102 mmol/C54-205TlnyswtqkMagruder HospitalCO2 [Moles/Vol]31.2 mmol/L 21.0-32.0[facility] HospitalCreatinine [Mass/Vol]1.31 mg/dLHigh 0.55-1.02Magruder HospitalGFR/1.73 sq M.predicted MDRD (S/P/Bld) [Vol rate/Area]50 mL/min/{1.73_m2}Low>=60[facility] Glucose [Mass/Vol]148 mg/rIYzvk42-157LnvsvtdstMagruder HospitalPotassium [Moles/Vol]3.8 mmol/L3.5-5.1FWood County Hospitalodium [Moles/Vol] 142 mmol/A082-656EnwmncwkeMagruder HospitalUrea nitrogen [Mass/Vol]22.0 mg/dLHigh7.0-18.0[facility]uder HospitalUrea nitrogen/Creatinine [Mass ratio]16.8 mg/mgMagruder HospitalLaboratory - Hematology and Cell countson 49-78-1462Uguzwmte granulocytes/100 WBC (Bld)0.3 %0.0-0.5FMercy Memorial HospitalLeukocytes [#/volume] corrected for nucleated erythrocytes in Blood by Automated counon 83-87-7187HZK corrected for nucl RBC Auto (Bld) [#/Vol]3.9 10 3/uLLow4.0-11.0[facility] Lymphocytes Auto (Bld) [#/Vol]on 57-43-9741Zzamijmkgfn (Bld) [#/Vol]1.0 10 3/uL Low1.2-3.8Mag[facility]uder HospitalLymphocytes/100 WBC Auto (Bld)on 53-83-8681Eukufrpxqsl/100 WBC (Bld)26.3 %20.5-60.0[facility] HospitalH Auto (RBC) [Entitic mass]on 26-24-6327FYK (RBC) [Entitic mass]28.3 pg 26.7-34.0[facility] HospitalMCHC Auto (RBC) [Mass/Vol]on 06-13-4004VITC (RBC) [Mass/Vol]31.6 g/dL29.9-35.2FMercy Memorial HospitalMCV Auto (RBC) [Entitic vol]on 62-64-6929QGU (RBC) [Entitic vol]89.4 fL 81.0-99.0[facility] HospitalMonocytes Auto (Bld) [#/Vol]on 17-16-7233Sxaebatkm (Bld) [#/Vol]0.3 10 3/uL0.3-0.8[facility] HospitalMonocytes/100 WBC Auto (Bld)on 91-84-5010Wjerfwgxk/100 WBC (Bld)6.4 % 1.7-12.0[facility] HospitalNeutrophils Auto (Bld) [#/Vol]on 39-58-7375Dsdmarbnzoy (Bld) [#/Vol]2.4 10 3/uL1.4-6.5FMercy Memorial HospitalNeutrophils/100 WBC Auto (Bld)on 58-76-3273Cboxffkecdk/100 WBC (Bld)62.4 % 43.0-75.0Mag[facility]uder HospitalNo Panel Informationon 10-19-2023 Eosinophils # (Auto)0.1 10 3/uL0.0-0.7FMercy Memorial HospitalImmature Granulocyte # (Auto)0.01 10 3/uL0.00-0.03[facility] Platelet mean volume Auto (Bld) [Entitic vol]on 58-26-8421Gtzlhadp mean volume (Bld) [Entitic vol]10.8 fL9.5-13.5FMercy Memorial HospitalPlatelets Auto (Bld) [#/Vol]on 95-89-7493Ynyweajoy (Bld) [#/Vol]122 10 3/xVQfu347-337 [facility] HospitalRBC Auto (Bld) [#/Vol]on 19-55-5067VZA (Bld) [#/Vol]4.07 10 6/uLLow4.20-5.40Shelby Memorial Hospitalerum or plasma anion gap determinationon 81-20-8494Kimhg gap [Moles/Vol]12.6 mmol/LFMercy Memorial HospitalGlucose mean value [Mass/volume] in Blood Estimated from glycated hemoglobinon 07-14-5098Ikrqhbj glucose Estimated from glycated hemoglobin (Bld) [Mass/Vol]111 mg/dLMagruder HospitalLaboratory - Hematology and Cell countson 13-22-2617BkE1w (Bld) [Mass fraction]5.5 %4.5-6.2 [facility] HospitalComment on above:ADA RECOMMENDED LIMIT 4.0 - 6.0ADA THERAPEUTIC TARGET < 7.0ACTION SUGGESTED> 7.0Basophils Auto (Bld) [#/Vol] on 68-60-0833Qqcwjkcwn (Bld) [#/Vol]0.1 10 3/uL0.0-0.1FMercy Memorial HospitalBasophils/100 WBC Auto (Bld)on 84-87-8311Wlwbwhbin/100 WBC (Bld)1.2 % 0.2-2.0[facility] HospitalEosinophils/100 WBC Auto (Bld)on 52-21-0047Tuzwksfimjm/100 WBC (Bld)4.3 %0.9-7.0[facility] Erythrocyte distribution width Auto (RBC) [Ratio]on 28-73-4932Ddexhvlujer distribution width (RBC) [Ratio]15.3 %11.0-15.0[facility] Estimated glomerular filtration rate (GFR) non- Americanon 07-09-2023 GFR/1.73 sq M.predicted among non-blacks MDRD (S/P/Bld) [Vol rate/Area]43 mL/min/{1.73_m2}>=60Mag[facility] HospitalHematocrit Auto (Bld) [Volume fraction]on 22-34-4428Enulixgluc (Bld) [Volume fraction]40.3 %36.0-48.0 [facility] HospitalHemoglobin [Mass/volume] in Bloodon 07-09-2023 Hemoglobin (Bld) [Mass/Vol]12.8 g/dL12.0-16.0[facility] Laboratory - Chemistry and Chemistry - challengeon 87-87-7633Pyyffjb [Mass/Vol] 8.9 mg/dL8.5-10.1FMercy Memorial HospitalChloride [Moles/Vol]102 mmol/L 98-107Mag[facility]uder HospitalCO2 [Moles/Vol]30.1 mmol/L21.0-32.0 [facility] HospitalCreatinine [Mass/Vol]1.27 mg/dL0.55-1.02 [facility] HospitalGFR/1.73 sq M.predicted MDRD (S/P/Bld) [Vol rate/Area]52 mL/min/{1.73_m2}>=60Mag[facility] HospitalGlucose [Mass/Vol]114 mg/sP55-881NhdkthqycMagruder HospitalPotassium [Moles/Vol] 3.7 mmol/L3.5-5.1FWood County Hospitalodium [Moles/Vol]142 mmol/L 136-145Mag[facility]uder HospitalUrea nitrogen [Mass/Vol]18.0 mg/dL 7.0-18.0[facility]uder HospitalUrea nitrogen/Creatinine [Mass ratio] 14.2 mg/mgMagruder HospitalLaboratory - Hematology and Cell countson 15-79-7275Nkprdlnp granulocytes/100 WBC (Bld)0.2 %0.0-0.5FMercy Memorial HospitalLeukocytes [#/volume] corrected for nucleated erythrocytes in Blood by Automated counon 51-24-5644PWQ corrected for nucl RBC Auto (Bld) [#/Vol]4.2 10 3/uL4.0-11.0[facility] Lymphocytes Auto (Bld) [#/Vol]on 52-28-4705Iblimllaojb (Bld) [#/Vol]1.5 10 3/uL 1.2-3.8[facility]uder HospitalLymphocytes/100 WBC Auto (Bld)on 93-02-8615Mybkjdpggbs/100 WBC (Bld)34.8 %20.5-60.0[facility]uder HospitalMCH Auto (RBC) [Entitic mass]on 09-96-0024ZTL (RBC) [Entitic mass]29.0 pg 26.7-34.0[facility]uder HospitalMCHC Auto (RBC) [Mass/Vol]on 82-15-2148UFET (RBC) [Mass/Vol]31.8 g/dL29.9-35.2FMercy Memorial HospitalMCV Auto (RBC) [Entitic vol]on 07-49-6581YWB (RBC) [Entitic vol]91.4 fL 81.0-99.0[facility] HospitalMonocytes Auto (Bld) [#/Vol]on 53-53-0225Uyexzgedy (Bld) [#/Vol]0.3 10 3/uL0.3-0.8[facility] HospitalMonocytes/100 WBC Auto (Bld)on 83-81-3188Bhfxatxpr/100 WBC (Bld)7.6 % 1.7-12.0[facility] HospitalNeutrophils Auto (Bld) [#/Vol]on 84-02-6623Cbqzsurcpbl (Bld) [#/Vol]2.2 10 3/uL1.4-6.5FMercy Memorial HospitalNeutrophils/100 WBC Auto (Bld)on 46-30-6553Njddrrdxcit/100 WBC (Bld)51.9 % 43.0-75.0[facility]uder HospitalNo Panel Informationon 07-09-2023 Eosinophils # (Auto)0.2 10 3/uL0.0-0.7FMercy Memorial HospitalImmature Granulocyte # (Auto)0.01 10 3/uL0.00-0.03[facility] Platelet mean volume Auto (Bld) [Entitic vol]on 70-53-3056Ljfglubb mean volume (Bld) [Entitic vol]12.4 fL9.5-13.5FMercy Memorial HospitalPlatelets Auto (Bld) [#/Vol]on 38-16-8135Exwlsstkf (Bld) [#/Vol]108 10 3/fK894-180 [facility] HospitalRBC Auto (Bld) [#/Vol]on 83-02-7594UZT (Bld) [#/Vol]4.41 10 6/uL4.20-5.40Shelby Memorial Hospitalerum or plasma anion gap determinationon 30-55-5388Tcuks gap [Moles/Vol]13.6 mmol/LFMercy Memorial HospitalCBC AUTO DIFFon 29-65-5346OCFM #0.0 103/ulNormal0.0-0.1 [facility] – JacksonComment on above:Performed By: #### CBC #### [facility] [address] [address] [address] Rivas ZhaoBasophils/100 WBC (Bld)0.7 %Normal0.2-2.0[facility] Comment on above:Performed By: #### CBC #### [facility] [address] [place] [address] Dr. Rivas Peter #0.2 103/ulNormal0.0-0.7The [facility] – JacksonComment on above: Performed By: #### CBC #### [facility] [address] [place] [address] Dr. Rivas Dcosinophils/100 WBC (Bld)3.4 %Normal0.9-7.0[facility] Comment on above:Performed By: #### CBC #### [facility] [address] [place] [address] Dr. Rivas Dcrythrocyte distribution width (RBC) [Ratio]14.8 %Kxcsyp12.0-15.0 [facility] – JacksonComment on above:Performed By: #### CBC #### [facility] [address] [place] [address] Dr. Rivas ZhaoHematocrit (Bld) [Volume fraction]38.4 %Qkkxka20.0-48.0The [facility] – JacksonComment on above:Performed By: #### CBC #### [facility] [address] [place] [address] Dr. Rivas ZhaoHemoglobin (Bld) [Mass/Vol]12.7 g/aVDrfauz52.0-16.0The [facility] – JacksonComment on above:Performed By: #### CBC #### [facility] [address] [place] [address] Dr. Rivas Berry #0.01 10e3/ulNormal0.00-0.03The [facility] – JacksonComment on above:Performed By: #### CBC #### [facility] [address] [place] [address] Dr. Rivas Berry %0.2 %Normal0.0-0.5The [facility] – JacksonComment on above: Performed By: #### CBC #### [facility] [address] [address] [address] Rivas Corley #1.5 103/ulNormal1.2-3.8The [facility] – JacksonComment on above:Performed By: #### CBC #### [facility] [address] [address] [address] Rivas Riverohocytes/100 WBC (Bld)34.9 %Owwnbx80.5-60.0The [facility] – JacksonComment on above:Performed By: #### CBC #### [facility] [address] [place] [address] Dr. Rivas Posey DIFF REQNONormalThe [facility] – JacksonComment on above: Performed By: #### CBC #### [facility] [address] [place] [address] Dr. Rivas Cristina (RBC) [Entitic mass]30.2 emRszszb47.7-34.0The [facility] – JacksonComment on above:Performed By: #### CBC #### [facility] [address] [place] [address] Dr. Rivas Cristina (RBC) [Mass/Vol]33.1 g/pAKtlpgt24.9-35.2The [facility] – JacksonComment on above:Performed By: #### CBC #### [facility] [address] [place] [address] Dr. Rivas Cristina (RBC) [Entitic vol]91.2 dZNkgmsx88.0-99.0The [facility] – JacksonComment on above:Performed By: #### CBC #### [facility] [address] [place] [address] Dr. Rivas Cralisle #0.3 103/ulNormal0.3-0.8The [facility] – JacksonComment on above:Performed By: #### CBC #### [facility] [address] [place] [address] Dr. Rivas Martinesocytes/100 WBC (Bld)5.9 %Normal1.7-12.0The [facility] Comment on above:Performed By: #### CBC #### [facility] [address] [address] [address] Rivas Rivera #2.4 103/ulNormal1.4-6.5The [facility] – JacksonComment on above:Performed By: #### CBC #### [facility] [address] [address] [address] Rivas Rasheedutrophils/100 WBC (Bld)54.9 %Emyxro88.0-75.0The [facility] – JacksonComment on above:Performed By: #### CBC #### [facility] [address] [place] [address] Dr. Rivas Whytelet mean volume (Bld) [Entitic vol]11.9 fLNormal9.5-13.5The [facility] – JacksonComment on above:Performed By: #### CBC #### [facility] [address] [place] [address] Dr. Rivas ZhaoPLT107 103/ulCritically arn284-883Kih [facility] – JacksonComment on above:Performed By: #### CBC #### [facility] [address] [place] [address] Dr. Rivas ZhaoRBC4.21 106/ulNormal4.20-5.40The [facility] – JacksonComment on above:Performed By: #### CBC #### [facility] [address] [place] [address] Dr. Rivas ZhaoWBC4.4 103/ulNormal4.0-11.0The [facility] – JacksonComment on above: Performed By: #### CBC #### [facility] [address] [place] [address] Dr. Rivsa ZhaoGLYCOHEMOGLOBIN A1Con 15-30-2922HLJ RECOMMENDATIONSEE BELOWNormal The [facility] HospitalComselect [facility] on above:Result Comment: ADA RECOMMENDED LIMIT 4.0 - 6.0 ADA THERAPEUTIC TARGET < 7.0 ACTION SUGGESTED > 7.0Performed By: #### A1C #### [facility] [address] [place] [address] Dr. Rivas ZhaoGlucose [Mass/Vol]117 mg/dLKettering Health MiamisburgComment on above:Performed By: #### A1C #### [facility] [address] [address] [address] Rivas ZhaoHbA1c (Bld) [Mass fraction]5.7 %Normal4.5-6.2The Christ HospitalComment on above:Performed By: #### A1C #### [facility] [address] [place] [address] Dr. Rivas ZapienID PROFILEon 31-63-9405VWEV-HDL RATIO NORMSEE [facility] HospitalComment on above:Result Comment: 3.3 - 4.4 LOW RISK 4.4 - 7.1 AVERAGE RISK 7.1 - 11.0 MODERATE RISK >11.0 HIGH RISKPerformed By: #### LIPID, CMP #### [facility] [address] [place] [address] Dr. Rivas ZhaoCholesterol [Mass/Vol]160 mg/dLNormal<=200The [facility] Comment on above:Performed By: #### LIPID, CMP #### [facility] [address] [address] [address] Rivas Levyesterol in HDL [Mass/Vol]49 mg/vLAaqitq70-10SxuThe Christ HospitalComselect specialty [facility] on above:Performed By: #### LIPID, CMP #### [facility] [address] [place] [address] Dr. Rivas ZhaoCholesterol in LDL [Mass/Vol]96.0 mg/dLKettering Health MiamisburgComment on above:Performed By: #### LIPID, CMP #### [facility] [address] [place] [address] Dr. Rivas Levyestersung.total/Cholesterol in HDL [Mass ratio]3.3 {ratio} NormalThe [facility] – JacksonComment on above:Performed By: #### LIPID, CMP #### [facility] [address] [place] [address] Dr. Rivas ZhaoHDL NORMAL> or = 60 mg/dl - LOW CARDIOVASCULAR RISK <40 mg/dl - HIGH CARDIOVASCULAR RISKKettering Health MiamisburgComment on above:Performed By: #### LIPID, CMP #### [facility] [address] [place] [address] Dr. Rivas Fox CALC NORMALSEE BELOWKettering Health MiamisburgComment on above:Result Comment: <100 mg/dl OPTIMAL 100 - 129 mg/dl NEAR OR ABOVE OPTIMAL 130 - 159 mg/dl BORDERLINE HIGH 160 - 189 mg/dl HIGH >190 mg/dl VERY HIGH Performed By: #### LIPID, CMP #### [facility] [address] [address] [address] Rivas ZhaoTriglyceride [Mass/Vol]75 mg/dLNormal<=150The [facility] Comment on above:Performed By: #### LIPID, CMP #### [facility] [address] [place] [address] Dr. Rivas ChampionLDL CALC15.0 mg/dLNoACMC Healthcare System GlenbeighComment on above: Performed By: #### LIPID, CMP #### [facility] [address] [place] [address] Dr. Rivas ZhaoPROF 14(COMP METB)on 78-05-2412Ciosbnc [Mass/Vol]3.0 g/dL Critically low3.4-5.0The [facility] JacksonComselect specialty hospital[facility] on above:Performed By: #### LIPID, CMP #### [facility] [address] [place] [address] Dr. Rivas ZhaoAlbumin/Globulin [Mass ratio]0.6 {ratio}NormalThe [facility] – JacksonComment on above:Performed By: #### LIPID, CMP #### [facility] [address] [place] [address] Dr. Rivas Mercado [Catalytic activity/Vol]74 U/UXhpbwh86-045Tcb [facility] on above:Performed By: #### LIPID, CMP #### [facility] [address] [place] [address] Dr. Rivas Lieberman [Catalytic activity/Vol]59 U/BBllmqv69-11Sfe [facility] on above:Performed By: #### LIPID, CMP #### [facility] [address] [address] [address] Rivas Tuckeron gap [Moles/Vol]9.2 mmol/LNormalThe [facility] – JacksonComment on above:Performed By: #### LIPID, CMP #### [facility] [address] [address] [address] Rivas ZhaoAST [Catalytic activity/Vol]65 U/LCritically efsa91-27Qbr [facility] JacksonComment on above:Performed By: #### LIPID, CMP #### [facility] [address] [address] [address] Rivas ZhaoBilirubin [Mass/Vol]1.1 mg/dLCritically high0.2-1.0The [facility] JacksonComment on above:Performed By: #### LIPID, CMP #### [facility] [address] [address] [address] Rivas ZhaoCalcium [Mass/Vol]8.8 mg/dLNormal8.5-10.1The [facility] Comment on above:Performed By: #### LIPID, CMP #### [facility] [address] [address] [address] Rivas ZhaoChloride [Moles/Vol]102 mmol/UQhezvk54-927Zex [facility] Comment on above:Performed By: #### LIPID, CMP #### [facility] [address] [address] [address] Rivas ZhaoCO2 [Moles/Vol]32.5 mmol/LCritically high21.0-32.0The [facility] – JacksonComment on above:Performed By: #### LIPID, CMP #### [facility] [address] [address] [address] Rivas ZhaoCreatinine [Mass/Vol]0.76 mg/dLNormal0.55-1.02The [facility] – JacksonComment on above:Performed By: #### LIPID, CMP #### [facility] [address] [address] [address] Rivas DcGFR-AF NICARAGUAN>60Normal>=60The Dariela HospitalComment on above:Performed By: #### LIPID, CMP #### [facility] [address] [address] [address] Rivas Bee-NON AF NICARAGUAN>60Normal>=60The [facility] – JacksonComment on above:Performed By: #### LIPID, CMP #### [facility] [address] [address] [address] Rivas ZhaoGlobulin (S) [Mass/Vol]4.7 g/dLNormalThe [facility] – JacksonComment on above:Performed By: #### LIPID, CMP #### [facility] [address] [address] [address] Rivas ZhaoGlucose [Mass/Vol]109 mg/dLCritically aiuf05-672Kwm [facility] JacksonComment on above:Performed By: #### LIPID, CMP #### [facility] [address] [address] [address] Rivas ZhaoPotassium [Moles/Vol]3.7 mmol/LNormal3.5-5.1[facility] Comment on above:Performed By: #### LIPID, CMP #### [facility] [address] [address] [address] Rivas ZhaoProtein [Mass/Vol]7.7 g/dLNormal6.4-8.2[facility] Comment on above:Performed By: #### LIPID, CMP #### [facility] [address] [address] [address] Rivas ZhaoSodium [Moles/Vol]140 mmol/FNxrlzx424-424PgbThe [facility] Comment on above:Performed By: #### LIPID, CMP #### [facility] [address] [address] [address] Rivas ZhaoUrea nitrogen [Mass/Vol]12.0 mg/dLNormal7.0-18.0[facility] JacksonComment on above:Performed By: #### LIPID, CMP #### [facility] [address] [address] [address] Rivas ZhaoUrea nitrogen/Creatinine [Mass ratio]15.8 mg/mgNormalThe Wray HospitalComment on above:Performed By: #### LIPID, CMP #### [facility] [address] [address] [address] Rivas ZhaoPatient Correspondenceon 20-79-7296Rueushw Correspondence [id number]#1.00CD:127[facility] CenterPhysician [id number]#1.00CD:127NormGrand Lake Joint Township District Memorial HospitalPatient Correspondence [id number]#1.00CD:[address] [place], [place] [address]Physician Referralon 68-12-2911Czwchgnda Referral [id number]#1.00CD:[address] [place], [place] [address]MG MAMM DIAGNOSTIC 3D GREG CADon 71-25-7279AY MAMM DIAGNOSTIC 3D GREG CAD Patient: FERN CARDOSO Exam Date: 05/16/2021 : 1960 Gender:F Ordering : DR SINDI BENJAMIN M.D. Admission #: [id number] Family : Order #: [id number] CLICK HERE TO VIEW EXAM RADIOLOGY REPORT [...] breast cancer at age 59. LOCATION: [facility] BREAST COMPOSITION: Scattered areas fibroglandular density. FINDINGS: [...] by: Calin Contreras M.D. on 05/16/2021 at 15:27[facility] MiamisburgUS BREAST GREG LIMITEDon 47-36-7996UU BREAST GREG LIMITEDPatient: FERN CARDOSO Exam Date: 05/16/2021 : 1960 Gender:F Ordering : DR SINDI BENJAMIN M.D. Admission #: [id number] Family : Order #: [id number] CLICK HERE TO VIEW EXAM RADIOLOGY REPORT [...] breast cancer at age 59. LOCATION: [facility] BREAST COMPOSITION: Scattered areas fibroglandular density. FINDINGS: [...] by: Calin Contreras M.D. on 05/16/2021 at 15:27[facility] MiamisburgTRANSGLUTAMINASE IGAon 58-79-9662z-Transglutaminase (tTG) IgA<6Avxfyl6-7 [facility] JacksonComment on above:Result Comment: Negative 0 - 3 Weak Positive 4 - 10 Positive >10 . Tissue Transglutaminase (tTG) has been identified as the endomysial antigen. Studies have demonstr- ated that endomysial IgA antibodies have over 99% specificity for gluten sensitive enteropathy.Performed By: #### TRANIGA #### [facility] [address] [place] [address] Dr. Rivas Garza AUTO DIFFon 12-87-9837FFSA #0.1 103/ulNormal0.0-0.1The [facility] HospitalComment on above:Performed By: #### CBC #### [facility] [address] [place] [address] Dr. Rivas ZhaoBasophils/100 WBC (Bld)0.9 %Normal0.2-2.0[facility] Comment on above:Performed By: #### CBC #### [facility] [address] [place] [address] Dr. Rivas Peter #0.2 103/ulNormal0.0-0.7The [facility] JacksonComment on above: Performed By: #### CBC #### [facility] [address] [place] [address] Dr. Rivas Dcosinophils/100 WBC (Bld)2.3 %Normal0.9-7.0[facility] Comment on above:Performed By: #### CBC #### [facility] [address] [place] [address] Dr. Rivas Dcrythrocyte distribution width (RBC) [Ratio]14.5 %Ptkpzq96.0-15.0 The [facility] HospitalComment on above:Performed By: #### CBC #### [facility] [address] [place] [address] Dr. Rivas ZhaoHematocrit (Bld) [Volume fraction]39.9 %Qjdkxp37.0-48.0[facility] JacksonComment on above:Performed By: #### CBC #### [facility] [address] [place] [address] Dr. Rivas ZhaoHemoglobin (Bld) [Mass/Vol]13.1 g/kHDutvgl00.0-16.0[facility] JacksonComment on above:Performed By: #### CBC #### [facility] [address] [place] [address] Dr. Rivas Berry #0.02 10e3/ulNormal0.00-0.03The [facility] JacksonComment on above:Performed By: #### CBC #### [facility] [address] [place] [address] Dr. Rivas Berry %0.3 %Normal0.0-0.5The [facility] JacksonComment on above: Performed By: #### CBC #### [facility] [address] [place] [address] Dr. Rivas Corley #2.2 103/ulNormal1.2-3.8The [facility] JacksonComment on above:Performed By: #### CBC #### [facility] [address] [place] [address] Dr. Rivas Riverohocytes/100 WBC (Bld)31.8 %Vphlyf89.5-60.0The Christ HospitalComment on above:Performed By: #### CBC #### [facility] [address] [place] [address] Dr. Yilan ChangMANUAL DIFF REQNONormalThe [facility] JacksonComment on above: Performed By: #### CBC #### [facility] [address] [place] [address] Dr. Rivas Cristina (RBC) [Entitic mass]30.2 owSsmbzq39.7-34.0The [facility] JacksonComment on above:Performed By: #### CBC #### [facility] [address] [place] [address] Dr. Rivas Cristina (RBC) [Mass/Vol]32.8 g/dHKnkfsk62.9-35.2The Wray HospitalComment on above:Performed By: #### CBC #### [facility] [address] [place] [address] Dr. Rivas Cristina (RBC) [Entitic vol]91.9 zVSzlftb47.0-99.0[facility] JacksonComment on above:Performed By: #### CBC #### [facility] [address] [place] [address] Dr. Rivas Carlisle #0.5 103/ulNormal0.3-0.8The [facility] JacksonComment on above:Performed By: #### CBC #### [facility] [address] [place] [address] Dr. Rivas Martinesocytes/100 WBC (Bld)7.2 %Normal1.7-12.0[facility] Comment on above:Performed By: #### CBC #### [facility] [address] [place] [address] Dr. Rivas Rivera #4.0 103/ulNormal1.4-6.5The [facility] JacksonComment on above:Performed By: #### CBC #### [facility] [address] [place] [address] Dr. Rivas Rasheedutrophils/100 WBC (Bld)57.5 %Cgxduq90.0-75.0The [facility] JacksonComment on above:Performed By: #### CBC #### [facility] [address] [place] [address] Dr. Yilan ChangPlatelet mean volume (Bld) [Entitic vol]11.8 fLNormal9.5-13.5The [facility] JacksonComment on above:Performed By: #### CBC #### [facility] [address] [place] [address] Dr. Rivas ZhaoPLT139 103/ulCritically cyt241-597Beo [facility] JacksonComment on above:Performed By: #### CBC #### [facility] [address] [place] [address] Dr. Rivas ZhaoRBC4.34 106/ulNormal4.20-5.40The [facility] JacksonComment on above:Performed By: #### CBC #### [facility] [address] [place] [address] Dr. Rivas ZhaoWBC7.0 103/ulNormal4.0-11.0The [facility] JacksonComment on above: Performed By: #### CBC #### [facility] [address] [place] [address] Dr. Rivas ZapienASEon 48-86-7131Ehhvua [Catalytic activity/Vol]197.0 U/LNormal 23.0-300.0The [facility] JacksonComment on above:Performed By: #### CMP, LIPA #### [facility] [address] [place] [address] Dr. Rivas ZhaoPROF 14(COMP METB)on 21-18-1170Gzmxdrv [Mass/Vol]3.6 g/dLNormal 3.5-5.0[facility] JacksonComment on above:Performed By: #### CMP, LIPA #### [facility] [address] [place] [address] Dr. Rivas ZhaoAlbumin/Globulin [Mass ratio]0.9 {ratio}NormalThe [facility] JacksonComment on above:Performed By: #### CMP, LIPA #### [facility] [address] [place] [address] Dr. Rivas ZhaoALP [Catalytic activity/Vol]46 U/ANddtyj60-588Kcl [facility] JacksonComment on above:Performed By: #### CMP, LIPA #### [facility] [address] [address] [address] Rivas HarleyT [Catalytic activity/Vol]77 U/LCritically high9-52The [facility] JacksonComment on above:Performed By: #### CMP, LIPA #### [facility] [address] [address] [address] Rivas ZhaoAnion gap [Moles/Vol]13.9 mmol/LNormalThe [facility] Comment on above:Performed By: #### CMP, LIPA #### [facility] [address] [address] [address] Rivas ZhaoAST [Catalytic activity/Vol]67 U/LCritically zesc32-42Rdj [facility] JacksonComment on above:Performed By: #### CMP, LIPA #### [facility] [address] [place] [address] Dr. Rivas ZhaoBilirubin [Mass/Vol]0.7 mg/dLNormal0.2-1.3TAvita Health System [facility] Comment on above:Performed By: #### CMP, LIPA #### [facility] [address] [address] [address] Rivas ZhaoCalcium [Mass/Vol]9.8 mg/dLNormal8.4-10.2[facility] Comment on above:Performed By: #### CMP, LIPA #### [facility] [address] [address] [address] Rivas ZhaoChloride [Moles/Vol]103 mmol/YIjdakc71-206Nhb [facility] Comment on above:Performed By: #### CMP, LIPA #### [facility] [address] [address] [address] Rivas ZhaoCO2 [Moles/Vol]31.0 mmol/LCritically high22.0-30.0The [facility] JacksonComment on above:Performed By: #### CMP, LIPA #### [facility] [address] [address] [address] Rivas ZhaoCreatinine [Mass/Vol]0.95 mg/dLNormal0.52-1.04The [facility] HospitalComment on above:Performed By: #### CMP, LIPA #### [facility] [address] [place] [address] Dr. Rivas DcGFR-AF UEWQSAWV77 mL/min/1.40q6Ijirzz>=60[facility] Comment on above:Performed By: #### CMP, LIPA #### [facility] [address] [place] [address] Dr. Rivas DcGFR-NON AF NICARAGUAN=60Normal>=60The [facility] HospitalComment on above:Performed By: #### CMP, LIPA #### [facility] [address] [place] [address] Dr. Rivas ZhaoGlobulin (S) [Mass/Vol]4.2 g/dLNormalThOhio State University Wexner Medical CenterComment on above:Performed By: #### CMP, LIPA #### [facility] [address] [place] [address] Dr. Rivas ZhaoGlucose [Mass/Vol]95 mg/kNMtywzp05-672ZpxThe [facility] Comment on above:Performed By: #### CMP, LIPA #### [facility] [address] [place] [address] Dr. Rivas ZhaoPotassium [Moles/Vol]3.9 mmol/LNormal3.4-5.0[facility] Comment on above:Performed By: #### CMP, LIPA #### [facility] [address] [place] [address] Dr. Rivas ZhaoProtein [Mass/Vol]7.8 g/dLNormal6.1-8.2[facility] Comment on above:Performed By: #### CMP, LIPA #### [facility] [address] [place] [address] Dr. Rivas hZaoSodium [Moles/Vol]144 mmol/ULwbden919-612WhqThe [facility] Comment on above:Performed By: #### CMP, LIPA #### [facility] [address] [place] [address] Dr. Rivas ZhaoUrea nitrogen [Mass/Vol]20.0 mg/dLCritically high7.0-17.0The [facility] HospitalComment on above:Performed By: #### CMP, LIPA #### [facility] [address], [place] [address] Dr. Rivas Hicks nitrogen/Creatinine [Mass ratio]21.1 mg/mgNormalThe [facility] JacksonComment on above:Performed By: #### CMP, LIPA #### [facility] [address] [place], [place] [address] Dr. Rivas ZhaoXR ribs RT min 3V w CXR1V*on 64-86-5723QF ribs RT min 3V w CXR1V* [facility] [place] [address] [place] [address] XRay Report Signed Patient: Fern Cardoso MR#: [id number] : 1960 Acct:[id number] Age/Sex: 59 / F ADM Date: 06/09/20 Loc: XDUCLY Room: Type: [facility] Attending Dr: Janene Munguia APRN, SOFT [employer] SUPERVISOR-C Ordering Provider: Janene Munguia APRN Date of [...] Garcia Jr., M.D.06/09/2020 11:19 AM Dictation Location: [address] By: JOSÉ LUIS 06/09/20 1119 Dictated By: Que Garcia Jr, MD 06/09/20 1112 Signed By: 06/09/20 1119NoUniversity [facility]als [facility] Vital Signs Date TimeVital SignValuePerforming LydnlxsyiAjapqtwh69-46-3579 10:49-0400Body .1 cmNicholas Brown DPM Work Phone: [phone] [place], [place] [address]Kpxjamfgyz53-97-4640 10:49-0400Body mass index (BMI) [Ratio]57.91 kg/o5Wivkxuys Brown DPM Work Phone: [phone] [place], [place] [address]Bvvcbhhxbl38-46-7640 10:49-0400Body .85 kgNicholas Brown DPM Work Phone: [facility] ChildrenCsdrqjffhj38-06-8032 10:49-0400Respiratory rate18 /minNicholas Brown DPM Work Phone: [phone] [place], [place] [address]Rhxwqqwden68-20-3469 10:37-0400Body eeizqh617.1 cmNicholas Brown DPM Work Phone: [facility] ChildrenNjwnyfqhnb67-98-5917 10:37-0400Body mass index (BMI) [Ratio]57.91 kg/j4Wkyqfmjy Brown DPM Work Phone: [facility] ChildrenIeawuqtkfq95-36-2646 10:37-0400Body rdypxl147.85 kgNicholas Brown DPM Work Phone: [phone] [place], [place] [address]Xxhdhudsce56-00-3399 10:37-0400Respiratory rate18 /minNicholas Brown DPM Work Phone: [facility] ChildrenNgqcienyqa32-55-3836 10:00-0400Body .1 cmMag[facility]10-28-2024 10:00-0400Body mass index (BMI) [Ratio]57 kg/q7JnebsfyuxMagruder Hospital10-28-2024 10:00-0400Body weight 155.58 kgMagruder Hospital10-28-2024 10:00-0400Diastolic blood uqfuzthf09 mm[Hg][facility]10-28-2024 10:00-0400Heart rate74 /[facility]10-28-2024 10:00-0400Systolic blood kazzjjxs411 mm[Hg][facility]10-07-2024 10:10-0400Body npenqy815.1 cmMagruder Hospital10-07-2024 10:10-0400Body mass index (BMI) [Ratio]56.3 kg/n2TxjhokfkeMagruder Hospital10-07-2024 10:10-0400Body .54 kgMagruder Hospital10-07-2024 10:10-0400Diastolic blood vqnwcefr56 mm[Hg][facility] 01-24-2024 10:10-0400Heart rate71 /[facility] 01-24-2024 10:10-0400Respiratory rate18 /[facility] 01-24-2024 10:10-7937TgX0% (BldA) [Mass fraction]98 %[facility]10-07-2024 10:10-0400Systolic blood cyuragha571 mm[Hg][facility]08-29-2024 11:29-0400Body sjlafq189.1 cmMagruder Hospital08-29-2024 11:29-0400Body mass index (BMI) [Ratio]55 kg/q1VkqqwzeaeMagruder Hospital08-29-2024 11:29-0400Body mnahcw411.13 kgMagruder Hospital08-29-2024 11:29-0400Diastolic blood mm[Hg] [facility]08-29-2024 11:29-0400Heart rate69 /[facility]08-29-2024 11:29-0400Systolic blood agxmyjqf71 mm[Hg] [facility]06-27-2024 09:39-0400Body gqwgto583.1 cm [facility]06-27-2024 09:39-0400Body mass index (BMI) [Ratio]54.6 kg/q3HkyuqgpjqMagruder Hospital06-27-2024 09:39-0400Body eqtroinccpu69.4 [degF][facility]06-27-2024 09:39-0400Body qoqhvo459.89 kgMagruder Hospital06-27-2024 09:39-0400Diastolic blood mm[Hg][facility]06-27-2024 09:39-0400 Heart rate71 /[facility]06-27-2024 09:39-0400 Respiratory rate18 /[facility]06-27-2024 09:39-0400 SaO2% (BldA) [Mass fraction]97 %[facility]06-27-2024 09:39-0400Systolic blood qfpyqeqq735 mm[Hg][facility] 08-12-2023 11:04-0400Body undvfs405.1 cmMagruder Hospital 08-12-2023 11:04-0400Body mass index (BMI) [Ratio]55.2 kg/p7KhhuizpvaMagruder Hospital04-25-2024 11:04-0400Body sqnuxv439.59 kgMagruder Hospital04-25-2024 11:04-0400Diastolic blood mm[Hg][facility]04-25-2024 11:04-0400Heart rate67 /[facility]04-25-2024 11:04-0400Systolic blood mm[Hg][facility]03-04-2024 15:41-0500Body ztuqve453.1 cmMagruder Hospital03-04-2024 15:41-0500Body mass index (BMI) [Ratio]54.1 kg/w8BbvynmfelMagruder Hospital03-04-2024 15:41-0500Body hofabc362.64 kg [facility]03-04-2024 15:41-0500Diastolic blood smtowgun87 mm[Hg][facility]03-04-2024 15:41-0500Heart rate67 /min [facility]03-04-2024 15:41-0344IuD8% (BldA) [Mass fraction]97 %[facility]03-04-2024 15:41-0500Systolic blood ruaamzmn590 mm[Hg][facility]01-26-2024 09:30-0500 Body .1 cmIsalei Sourav Other [employer] Other 01-26-2024 09:30-0500Body mass index (BMI) [Ratio] 57.24 kg/x9Bhtflr Sourav Other [employer] Other 01-26-2024 09:30-0500Body ygjgvr043.04 kgSindi Sourav Other [employer] Other 01-26-2024 09:30-0500Diastolic blood pzuozmbn55 mm[Hg] Sindi Benjamin Other [employer] Other 01-26-2024 09:30-6922RqF9% (BldA) [Mass fraction]97 % Sindi Benjamin Other [employer] Other 01-26-2024 09:30-0500Systolic blood qpmuhziq242 mm[Hg] Sindi Benjamin Other [employer] Other 11-17-2023 16:00-0500Body .1 cmAaleshia Gordon Other [employer] Other 11-17-2023 16:00-0500Body mass index (BMI) [Ratio] 60.27 kg/p6FgkeuEtta Gordon Other [employer] Other 11-17-2023 16:00-0500Body qgarfiqjqry15.9 [degF]Etta Gordon Other [employer] Other 11-17-2023 16:00-0500Body .29 kgEtta Gordon Other [employer] Other 11-17-2023 16:00-0500Diastolic blood tzxowrbx56 mm[Hg] Etta Gordon Other [employer] Other 11-17-2023 16:00-0500Respiratory rate18 /minEtta Gordon Other [employer] Other 11-17-2023 16:00-8489PwP5% (BldA) [Mass fraction]95 % Etta Gordon Other [facility] [employer] Other 11-17-2023 16:00-0500Systolic blood mm[Hg] Etta Gordon Other [facility] [employer] Other Encounters Encounter DateEncounter TypeCare ProviderFacilityStart: 02-20-2025 End: 18-02-9676udbuobjvzoSRDJFirelands Regional Medical Centertart: 01-16-2025 End: 45-32-5545kmeweqpqzzPrabcmBinh Pickard MDFacility:[facility] Start: 01-16-2025 End: 17-54-8557phntkvmmncIowoxiBinh Pickard MDFacility:[facility] [place]Start: 89-91-8773jbagwphsomESXXMercy Health West Hospitaltart: 12-14-2024 End: 92-22-1910Kgqawf flowsUnique Reno DPM Work Phone: noMS CI PODIATRYStart: 12-14-2024 End: 01-36-3953Vjhqih flowsUnique Reno DPM Work Phone: noms CI PODIATRYStart: 12-14-2024 End: 39-64-5919Zixnfmw encounter procedureEsequiel Reno DPM Work Phone: noms CI PODIATRYComment on above:Hallux rigidus of left foot (Primary Dx); Hallux rigidus of right foot; Diabetes mellitus due to underlying condition with diabetic polyneuropathy, unspecified whether detention insulin use (HCC); Pain due to onychomycosis of toenails of both feet; Venous insufficiencyStart: 12-14-2024 End: 28-34-0461clzybqrncnXFFEVOOO A BROWNNot AvailableStart: 12-06-2024 ambulatoryMercy Health West Hospitaltart: 12-05-2024 End: 92-32-5418Uqgjsr flowsheetSammantha Aaron PTNOMS [facility] Start: 12-05-2024 End: 26-91-0635Icoqvf flowsheetSammantha Aaron PTNOMS [facility] Start: 12-05-2024 End: 50-62-7569zbsdbonmmjIcyhtvmsy Aaron PTMS [facility] Comment on above:Cervicalgia (Primary Dx)Start: 11-29-2024 End: 32-93-0465wnnoenwlxnVQMUZPO [facility] Hospitaltart: 65-09-7654cfcijvtrxjLTOMFirelands Regional Medical Centertart: 16-98-5042dyjoslwpssCMCIFirelands Regional Medical Centertart: 10-05-2024 End: 91-14-7653Xkzbog Niki Reno DPM Work Phone: noMS CI PODIATRYStart: 10-05-2024 End: 02-37-3029Vkjzwlambrocio Reno DPM Work Phone: noMS CI PODIATRYStart: 10-05-2024 End: 03-72-6616Cqdwlx outpatient new 30 minutesEsequiel Reno DPM Work Phone: noms CI PODIATRYComment on above:Hallux rigidus of left foot (Primary Dx); Hallux rigidus of right foot; Diabetes mellitus due to underlying condition with diabetic polyneuropathy, unspecified whether rn long term care insulin use (HCC); Pain due to onychomycosis of toenails of both feet; Venous insufficiencyStart: 10-05-2024 End: 93-77-1280rdeqckttsjAJEPKSYS A BROWNNot AvailableStart: 08-28-2024 ambulatoryMercy Health West Hospitaltart: 07-07-2024 ambulatoryMercy Health West Hospitaltart: 06-09-2024 End: 11-97-0877tfdafqwhazSMNH SNIDERUnSamaritan North Health Centertart: 10-33-6080aoyebtpoteJZOXUC Healthtart: 08-45-5909ecbgppmcqiIBOTMercy Health West Hospitaltart: 26-09-7614ctyoiohwxtZRURUC Healthtart: 68-03-6358irqhmfwbslVEYGUC Healthtart: 74-99-8904vcpvampildYDGHUC Healthtart: 02-14-2024 End: 08-70-9796ofhewldxklTnulrcorgPremier Health [facility] Hospital Work Phone: Start: 02-14-2024 End: 85-57-0555Zcdlksm encounter procedureAdia Physician [facility] [place] Work Phone: Start: 01-24-2024 End: 48-69-6868ovphzodhmtErvsidhrjPremier Health [facility] Hospital Work Phone: Start: 01-24-2024 End: 23-05-9414Kxpujgk encounter procedureFirelands Physician Group-[facility] [place] Work Phone: Start: 04-84-8812Doc-patient / Non-visitFircambrias Physician Group-[facility] Work Phone: Start: 12-16-2023 End: 38-23-2535lvfnothlkjVhqglbuwoPremier Health [facility] Hospital Work Phone: Start: 12-16-2023 End: 77-81-3329Qddnref encounter procedureMerrycambrias Physician Group-[facility] [place] Work Phone: Start: 08-82-6337Cxx-patient / Non-visitFircambrias Physician Group-[facility] Work Phone: Start: 10-14-2023 End: 94-97-4005dqlajsjzljQgimrycmbSouthern [place] Medical Center Work Phone: Start: 10-14-2023 End: 44-22-8079Qettbsz encounter procedureNovant Health Physician [facility] Work Phone: Start: 13-88-2436Qzw-patient / Non-visitFircambrias Physician Group-[facility] Work Phone: Start: 96-00-1796Xglhyuu encounter statusShelby Memorial Hospitaltart: 08-12-2023 End: 00-15-1795foyirbntgiKomdnqxszSouthern [place] Medical Center Work Phone: Start: 08-12-2023 End: 53-72-9467Dzwkfcpbm for general adult medical examination without abnormal findingsShelby Memorial Hospitaltart: 08-12-2023 End: 99-29-9937Rpipfta encounter procedureNovant Health Physician [facility] [place] Work Phone: Start: 65-58-9299Xzh-patient / Non-visitNovant Health Physician Group-[facility] Work Phone: Start: 06-21-2023 End: 17-35-4194Rcnytpr encounter procedureNovant Health Physician [facility] Work Phone: Start: 05-31-2023 End: 19-64-2385gphhygsnpzAlckr Evan Other [facility] [employer] Other Start: 71-06-2479Utiuhfhen encounterAmber YulianaG [facility] Centertart: 05-21-2023 End: 94-85-1481bsxlwlxtrdSlujtt Braun Other [facility] [employer] Other Start: 76-22-1132Nestdldal encounterMarlei [facility] ClinicStart: 28-88-8800Bmitcjv encounter procedureFirkobe Physician Group-Start: 05-14-2023 End: 01-82-3063mswufspmriVcrtec Benjamin Other [employer] Other Start: 18-71-5745Lgfjne outpatient visit 25 minutes Sindi [facility] ClinicStart: 04-30-2023 End: 96-59-6264xnlaixktvjFlerki Benjamin Other [employer] Other Start: 84-60-0148Tnduongff encounterMarlei [facility] ClinicStart: 04-01-2023 End: 68-69-6760zdfdvilfqcNpfbtg Braun Other [employer] Other Start: 13-32-9741Hmfqmtodl encounterMarlei [facility] ClinicStart: 03-05-2023 End: 86-86-9178acrqplmetoQwmax Keller Other [employer] Other Start: 20-83-7877Omifyq outpatient visit 25 minutes Etta GordonYAVAPAI REGIONAL [facility] Ur[facility] Care ClydeStart: 63-45-9216Rddxehkrd for general adult medical examination without abnormal findingsDR SINDI Thomas [facility] Centertart: 02-21-2022 End: 95-14-0618wycsjitizbAE MARCIA E BRAUNFacility:I0Mexdz: 02-21-2022 End: 84-08-1105Vnotvfflf for general adult medical examination without abnormal findingsDR SINDI BENJAMINFacility:M9Xvumd: 98-10-7784[facility]co health examination Etta Gordon Other noArimaz Other Start: 05-16-2021 End: 11-13-6990uwaadwcdubBF MARCIA E BRAUNFacility:V1Nlpql: 03-31-2021 End: 10-55-3124yuaamofpyrMA SINDI Torres SOURAVFacility:W5Iimvh: 54-73-6028Ydvivfu encounter procedureMicvalentina WhitesideFacility:9844 Procedures DateProcedureProcedure DetailPerforming ClinicianStart: 41-96-4234Degyjr-up visitFollow-upPAUL CHACKOStart: 07-14-7798SdfqkhonzmytzsuyCngaxhi LysterStart: 84-10-2651Vaj-surgery evaluationEtta Gordon Other Start: 20-74-4993Bimuysy examination of patientEtta Gordon Other Start: 58-44-2571Zaxieqgv mellitus screeningEtta Gordon Other Start: 10-15-2286Qwdcbglpd mammographyEtta Gordon Other Start: 46-93-6087Kwezdcy and physical examination, administrativeEtta Gordon Other Start: 20-33-7720Ighezfsnfxzm cardiovascular examinationEtta Gordon Other Laboratory test result abnormalEtta Gordon Other Screening for malignant neoplasm of breastEtta Gordon Other Plan of Treatment DateCare ActivityDetailAuthorStart: 12-21-2024 End: 18-18-5916rahtfxtrlo28/04/2025 12:30 PM EDT Treatment [facility] [address] [facility] [address] [place] [address] Aric Aaron PTNOMS [facility] Physical TherapyStart: 12-19-2024 End: 51-61-9995xcnhemvriy49/02/2025 12:00 PM EDT Treatment [facility] [address] [facility] [address] [place] [address] Brian Hill PTANOMS [facility] Physical TherapyStart: 14-39-0420Dbmllnctr vaccination Influenza Vaccine (#1)[facility] HealthcareStart: 12-14-2024 End: 72-61-8804vencjnhkzg69/28/2025 11:30 AM EDT Treatment [facility] [address] [facility] [address] [place] [address] Anabell Montague PTANOMS [place] [facility] TherapyStart: 12-14-2024 End: 19-31-6643Oexfcrc encounter procedureNOMS CI PODIATRYComment on above: Hallux rigidus of left foot (Primary Dx); Hallux rigidus of right foot; Diabetes mellitus due to underlying condition with diabetic polyneuropathy, unspecified whether detention insulin use (HCC); Pain due to onychomycosis of toenails of both feet; Venous insufficiencyStart: 12-11-2024 End: 74-39-0526fxjepaerer51/25/2025 2:30 PM EDT Treatment [facility] [address] [facility] [address] [place], [id number] Brian Hill PTANOMS [facility] TherapyStart: 12-07-2024 End: 70-08-5953tqjkbrsjmq68/21/2025 12:00 PM EDT Treatment [facility] [address] [facility] [address] [place] [address] Brian Hill PTANOMS [facility] TherapyStart: 12-05-2024 End: 46-47-3180irejotmget42/19/2025 12:30 PM EDT Evaluation [facility] [address] [facility] [address] [place] [address] Aric Aaron, HOLLIE Cervicalgia (Primary Dx)[facility] Comment on above:Cervicalgia (Primary Dx)Start: 10-05-2024 End: 11-80-2251Cfqothy encounter lsimerxkn83/19/2025 10:20 AM EDT Office Visit [facility] [address] [facility] [address] [place] [address] Esequiel Reno DPM [address] [address] ArrivedNOMS CI PODIATRYComment on above:ArrivedStart: 63-94-7985Vhqtyrqzt for malignant neoplasm of breastMammogramNOMS Healthcare Start: 83-89-4992Ztnkwbgeg for malignant neoplasm of cervixNOMS HealthcareStart: 33-36-9477Hyztmpruy for malignant neoplasm of cervixPap SmearNOMS Healthcare Start: 20-07-2930Krkkoseyb for malignant neoplasm of colonNOMS HealthcareMG Breast - bilateral ScreeningMagruder HospitalUS Lower extremity vein - rightMagruder HospitalXR Lumbar spine 2 or 3 Views [facility] Immunizations Immunization DateImmunizationNotesCare RgjnrrhiAipwgboo25-21-8868ivezybwac virus vaccine, unspecified formulationSammantha Aaron PTNOCT Healthcare Payers DatePayer CategoryPayerPolicy [id number] Health InsuranceMOLINA MARKETPLACE Member Subscriber Plan / Payer (Effective 2024-Present) Name: Fern Cardoso Relation to Subscriber: Self Name: Fern Cardoso Payer ID: [id number] (NAIC) Group ID: Not on file Type: Not on file Address: [address] [id number] Xz[id number] 2.1.863259.3.579.2.1068 [id number] ..1.101259.3.57[id number] 2..1.886927.3.57[id number] 2..1.297260.3.57[id number] 2.16.840.1.714567.3.57[id number] 2.16.840.1.915462.3.57[id number] 2.16.840.1.829072.3.57[id number] 2.16.840.1.255035.3.57[id number] 2.16.840.1.811562.3.57[id number] 2.16.840.1.051617.3.57[id number]-zjsRujf Pay [id number] 2.840.1.859113.19 Social History DateTypeDetailFacilityUnknown if ever smokedLake In The Hills [employer] Other Start: 76-79-8603Bbj Assigned At [facility] [employer] Other Start: 07-07-2018 End: 72-35-3943Zffyvsh smoking status NHISNever smoked tobacco (finding) [facility] Hospitaltart: 49-54-5336Cdh Assigned At [facility]orth[facility] smoking status NHISTobacco smoking consumption unknownNOMS HealthcareStart: 50-39-7373Ejsrwr identityIdentifies as female gender (finding)[facility] HealthcareStart: 08-68-6507Qovmbu orientation Heterosexual (finding)[facility] HealthcareStart: 17-87-8008Awdcgrf use and exposure Smokeless tobacco non-userNOMS HealthcareStart: 10-05-2024 End: 06-20-0664Jzefmmpha beverage intakeLifetime non-drinker (finding)[facility] HealthcareStart: 73-13-2424Jjaxepn of Social [facility] Medical Equipment Procedure CodeEquipment CodeEquipment Original TextEquipment IdentifierDates Arthroplasty, knee, total, minimally invasiveART SURF RT 14MM 6-9 C-D VEFDA Start: 07-13-3233Oyuceqyrwbif, knee, total, minimally invasiveCEMENT BONE 1X40 RADIOPAQUEFDAStart: 76-89-3792Qodilnogzwxl, knee, total, minimally invasive CEMENT BONE 1X40 RADIOPAQUEFDAStart: 38-75-8459Wzvolwtynpgh, knee, total, minimally invasiveEXTENSION STEM 14 X 30MMFDAStart: 42-26-9766Umsctkcwsdrc, knee, total, minimally invasiveFEMUR PERSONA RIGHT SIZE 7FDAStart: 07-04-2018 Arthroplasty, knee, total, minimally invasivePATELLA PERSONA 32MM VIVACIT-EFDA Start: 80-10-9133Fojcmmmitnfy, knee, total, minimally invasiveTIBIA PERSONA RIGHT SIZE DFDAStart: 85-58-5631Gcbzwksifbde, knee, total, minimally invasiveART SURF RT 14MM 6-9 C-D VEFDAStart: 95-12-1355Kttscwvhxnri, knee, total, minimally invasiveCEMENT BONE 1X40 RADIOPAQUEFDAStart: 51-66-7290Szxnjyhgzmxi, knee, total, minimally invasiveCEMENT BONE 1X40 RADIOPAQUEFDAStart: 07-04-2018 Arthroplasty, knee, total, minimally invasiveEXTENSION STEM 14 X 30MMFDAStart: 27-44-8370Bpawqbsuabll, knee, total, minimally invasiveFEMUR PERSONA RIGHT SIZE 7FDAStart: 19-42-9214Ftiwyezkhsex, knee, total, minimally invasivePATELLA PERSONA 32MM VIVACIT-EFDAStart: 75-45-3164Fzuurfqeiavv, knee, total, minimally invasiveTIBIA PERSONA RIGHT SIZE DFDAStart: 41-33-4102Xvugypevvssg, knee, total, minimally invasiveART SURF RT 14MM 6-9 C-D VEFDAStart: 09-75-1871Lrgebprjrydd, knee, total, minimally invasiveCEMENT BONE 1X40 RADIOPAQUEFDAStart: 07-04-2018 Arthroplasty, knee, total, minimally invasiveCEMENT BONE 1X40 RADIOPAQUEFDA Start: 55-61-9423Jseytaodbave, knee, total, minimally invasiveEXTENSION STEM 14 X 30MMFDAStart: 59-91-1574Hfhggapzginm, knee, total, minimally invasiveFEMUR PERSONA RIGHT SIZE 7FDAStart: 65-87-0372Ubpqquekbwvl, knee, total, minimally invasivePATELLA PERSONA 32MM VIVACIT-EFDAStart: 32-64-0258Zjxwsdouibcf, knee, total, minimally invasiveTIBIA PERSONA RIGHT SIZE DFDAStart: 07-04-2018 Arthroplasty, knee, total, minimally invasiveART SURF RT 14MM 6-9 C-D VEFDA Start: 13-54-9585Eiuwgukqbkkx, knee, total, minimally invasiveCEMENT BONE 1X40 RADIOPAQUEFDAStart: 60-20-7958Weiaauiimehd, knee, total, minimally invasive CEMENT BONE 1X40 RADIOPAQUEFDAStart: 58-55-7700Jryloedwjsre, knee, total, minimally invasiveEXTENSION STEM 14 X 30MMFDAStart: 45-26-7908Ywvycdjkwwkm, knee, total, minimally invasiveFEMUR PERSONA RIGHT SIZE 7FDAStart: 07-04-2018 Arthroplasty, knee, total, minimally invasivePATELLA PERSONA 32MM VIVACIT-EFDA Start: 32-00-8291Hzgdfomotzna, knee, total, minimally invasiveTIBIA PERSONA RIGHT SIZE DFDAStart: 72-42-2799Sxzeefzeqhzc, knee, total, minimally invasiveART SURF RT 14MM 6-9 C-D VEFDAStart: 40-34-2106Saqrroyqgirr, knee, total, minimally invasiveCEMENT BONE 1X40 RADIOPAQUEFDAStart: 42-90-3272Kbtdvqwkjqes, knee, total, minimally invasiveCEMENT BONE 1X40 RADIOPAQUEFDAStart: 07-04-2018 Arthroplasty, knee, total, minimally invasiveEXTENSION STEM 14 X 30MMFDAStart: 77-78-5780Uupgopbpdsui, knee, total, minimally invasiveFEMUR PERSONA RIGHT SIZE 7FDAStart: 69-79-8052Tqtemzcopnni, knee, total, minimally invasivePATELLA PERSONA 32MM VIVACIT-EFDAStart: 70-45-8147Gmywhydhmdqx, knee, total, minimally invasiveTIBIA PERSONA RIGHT SIZE DFDAStart: 07-04-2018 Clinical Notes 10-22-2020 to 02-20-2025 Note Date & LmihPhroEtgfxwqx55-84-1518 NoteUT Electrophysiology Consult Note Reason for visit: [...] diabetes obstructive sleep apnea was admitted to [facility] with shortness of breath and was noted [...] Intimate Partner Violence: Not At Risk (05/05/2023) [place] Safety & Environment Fear of Current or [...] Year: No Utilities: Not At Risk (05/05/2023) [facility] Utilities Threatened with loss of utilities: [...] meal. 180 tablet 3 (more content not included)...[facility]09-21-2025 Note Please let her know overall things look ok on her ECHO. Pumping function is low normal at 50-55%. No significant valve abnormalities. Continue current medictions and follow-up as scheduled with Dr. Cronin. Thanks![facility]08-28-2025 History of Present illness Narrative* Esequiel [...] Strain: Low Risk (05/05/2023) Received from [facility] Overall Financial Resource Strain (CARDIA) Difficulty of Paying Living Expenses: Not hard at all Food Insecurity: No Food Insecurity (05/05/2023) Received from [facility] Hunger Vital Sign Within the past 12 months, you worried that your food would run out before you got the money to buymore.: Never true Ran Out of Food in the Last Year: Not on file Transportation Needs: No Transportation Needs (05/05/2023) Received from [facility] Transportation In the past 12 months, has lack of transportation kept you from medical appointments or from getting medications?: No Lack of Transportation (Non-Medical): Not on file Physical Activity: Not on file Stress: Not on file Social Connections: Not on file Intimate Partner Violence: Unknown (05/05/2023) Received from [facility] Humiliation, Afraid, Rape, and Kick questionnaire Fear of Current or Ex-Partner: No Emotionally Abused: Not on file Physically Abused: Not on file Sexually Abused: Not on file Housing Stability: Low Risk (05/05/2023) Received from [facility] Housing Stability Vital Sign Unable to Pay [...] palpableDP and PT pedal pulses NEURO: 5.07 [place] Satish monofilament test intact to digits and [...] underlying condition with diabetic polyneuropathy, unspecified whether rn long term care insulin use (HCC) 4. [...] Ibuprofen Esequiel Reno DPM documented in this encounterShriners Hospitals for ChildrenBiiwyjswqr53-03-3446 History of Present illness Narrative* Aric Aaron, [...] happened toher neck. 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 Precautions: bilateral TKA, [...] to be instructed in home exercise program. Nursing Home Goals: To be met in 10 weeks [...] Please sign below. Date: documented in this encounterShriners Hospitals for ChildrenJlsldlwppa96-72-3409 NoteCardiovascular Medicine [facility] SUBJECTIVE Chief Complaint Patient presents with [...] feels dizziness. Per Dr. Cronin: HPI: Fern Cardsoo is a 62 y.o. year old with past medical history of hypertension diabetes obstructive sleep apnea was admitted to [facility] with shortness of breath and was noted [...] (BMI) of 50.0 to 59.9 in adult ([facility]) Postoperative pain Status post total right knee replacement Thrombocytopenia RAVI (obstructive sleep apnea) Overactive bladder Screening mammogram for breast cancer Type 2 diabetes mellitus with hyperglycemia ([facility]) PONV (postoperative nausea and vomiting) Lumbar back pain Right leg swelling Takes dietary supplements Type 2 diabetes mellitus, without long-term current use of insulin ([facility]) Past Medical History: Diagnosis Date Abnormal ECG Acute kidney injury Arrhythmia Atrial fibrillation ([facility] Atrial fibrillation ([facility]) CHF (congestive heart failure) ([facility] Diabetes mellitus ([facility]) DVT (deep venous thrombosis) ([facility]) Hypertension Obesity BMI 55/58 PONV (postoperative [...] (6.25 mg) by mouth (more content not included)...[facility]08-13-2025 Note Patient is here today for [...] for irregular heartbeat (occasional racing heart while sitting).[facility]06-19-2025 History of Present illness Narrative* Esequiel [...] Strain: Low Risk (05/05/2023) Received from [facility] Overall Financial Resource Strain (CARDIA) Difficulty of Paying Living Expenses: Not hard at all Food Insecurity: No Food Insecurity (05/05/2023) Received from [facility] Hunger Vital Sign Within the past 12 months, you worried that your food would run out before you got the money to buymore.: Never true Ran Out of Food in the Last Year: Not on file Transportation Needs: No Transportation Needs (05/05/2023) Received from [facility] Transportation In the past 12 months, has lack of transportation kept you from medical appointments or from getting medications?: No Lack of Transportation (Non-Medical): Not on file Physical Activity: Not on file Stress: Not on file Social Connections: Not on file Intimate Partner Violence: Unknown (05/05/2023) Received from [facility] Humiliation, Afraid, Rape, and Kick questionnaire Fear of Current or Ex-Partner: No Emotionally Abused: Not on file Physically Abused: Not on file Sexually Abused: Not on file Housing Stability: Low Risk (05/05/2023) Received from [facility] Housing Stability Vital Sign Unable to Pay [...] palpableDP and PT pedal pulses NEURO: 5.07 [place] Satish monofilament test intact to digits and [...] underlying condition with diabetic polyneuropathy, unspecified whether rn long term care insulin use (HCC) 4. [...] edema. Discussed condition in detail. Recommendation for ylkc-fca-ppzcbdt compression stockings at this time and may consider prescription stockings in the future. Discussed hallux rigidus condition and arthritis to the great toe joints and becomes worse may consider possible further treatment Patient to continue with oral anti - inflammatories as needed for pain and recommended OTC medications such as tylenol or Ibuprofen Esequiel Reno DPM documented in this encounterShriners Hospitals for ChildrenJuwehxqmpb56-78-4093 NoteSUBJECTIVE Reason for Visit: eFrn Cardoso is a 63 y.o. year old female patient being seen for 4-month follow-up visit. HPI: Fern Cardoso is a 62-year-old with a medical history of hypertension, diabetes, A-fib/flutter, and obstructive sleep apnea who was admitted to [facility] in April 2023 for with shortness of [...] dysfunction Benign hypertensive cardiomyopathy with heart failure ([facility]) Anemia following surgery History of deep venous thrombosis Hypertension Hypokalemia Impaired mobility and activities of daily living Lack of stamina Morbid obesity with body mass index (BMI) of 50.0 to 59.9 in adult ([facility]) Postoperative pain Status post total right knee replacement Thrombocytopenia RAVI (obstructive sleep apnea) Overactive bladder Screening mammogram for breast cancer Type 2 diabetes mellitus with hyperglycemia ([facility]) PONV (postoperative nausea and vomiting) Lumbar [...] and soft. Musculoskeletal: Inspec (more content not included)...[facility]02-21-2025 NotePatient here for 4 mo follow [...] palpitations. All other systems reviewed and are negative.[facility] 05-14-2023 Evaluation note* Encounter Date Diagnosis [...] forms for supplies and faxed back to [employer]. Pt states she will restart and become co mpliant w CPAP treatment. [employer] Other 11-17-2023 Evaluation note* Encounter Date Diagnosis [...] treatment plan. Patient left in stable condition [facility] [employer] Other 07-06-2021 Evaluation note* Diagnosis Onset Date Resolution Status Essential (primary) hypertension October 22, 2020 acuteParoxysmal atrial fibrillationacuteScreening mammogram for breast cancer acuteType 2 diabetes mellitus with hyperglycemiaacute [facility] Work Phone: Evaluation noteNo InformationNortVeterans Affairs [facility] [employer] Other Evaluation note* Diagnosis Onset Date Resolution Status Paroxysmal atrial fibrillation acuteScreening mammogram for breast canceracuteType 2 diabetes mellitus with hyperglycemiaacuteWellness examinationacute [facility] Work Phone: Evaluation note* Diagnosis Onset Date Resolution Status Pain in left foot noneactiveLumbar back painacute [facility] Work Phone: Evaluation note* Diagnosis Onset Date Resolution Status Lumbar back pain acuteRight leg swellingacute [facility] Work Phone: Evaluation note* Diagnosis Hallux rigidus of left foot- Primary Hallux rigidus of right foot Diabetes mellitus due to underlying condition with diabetic polyneuropathy, unspecified whether detention insulin use (HCC) Pain due to onychomycosis of toenails of both feet Venous insufficiency Unspecified venous (peripheral) insufficiency documented in this encounter [facility] HealthcareEvaluation note* Diagnosis Cervicalgia- Primary Hallux rigidus of left foot- Primary Hallux rigidus of right foot Diabetes mellitus due to underlying condition with diabetic polyneuropathy, unspecified whether rn long term care insulin use (HCC) Pain due to onychomycosis of toenails of both feet Venous insufficiency Unspecified venous (peripheral) insufficiency documented in this encounter [facility] HealthcareEvaluation note* Diagnosis Hallux rigidus of left foot- Primary Hallux rigidus of right foot Diabetes mellitus due to underlying condition with diabetic polyneuropathy, unspecified whether rn long term care insulin use (HCC) Pain [...] HistoryC sectionSurgical Historyright knee arthroplasty05/07Hospitalization Historysee above [employer] Other Reason for visit Narrative* Rehabilitation - Outpatient (Routine) - AuthorizedSpecialtyDiagnoses / ProceduresReferred By ContactReferred To ContactPhysical Therapy Diagnoses Cervicalgia Procedures [facility] PHYSICAL THERAPY EVALUATION LOW COMPLEX 20 MINS NH OFFICE/OUTPATIENT NEW HIGH MDM 60 MINUTES Rosa Guzman MD [address] [place] [address] fax: Aric Aaron, PT Referral IDStatusReasonStart DateExpiration DateVisits RequestedVisits [id number] [facility] Healthcare Summary Purpose [...] section and content) DATE CREATED AUTHOR 08/28/2018 [facility] DATE CREATED AUTHOR AUTHOR'S ORGANIZ ATION 05/07/2021 [facility] DATE CREATED AUTHOR AUTHOR'S ORGANIZ ATION 09/19/2021 [facility] DATE CREATED AUTHOR AUTHOR'S ORGANIZ ATION 02/27/2022 [facility] DATE CREATED AUTHOR AUTHOR'S ORGANIZ ATION 12/16/2024 [facility] EPIC DATE CREATED AUTHOR AUTHOR'S ORGANIZ ATION 01/21/2025 [facility] DATE CREATED AUTHOR AUTHOR'S ORGANIZ ATION 02/21/2025 [facility] REASON FOR VISIT [...] BE BASED ON THE PRIMARY CLINICAL RECORDS. [facility] [employer] [facility]. provides no warranty or guarantee of the accuracy or completeness of information in this document.
[2025-03-13 11:18] LABS: Anion Gap 10.7; Blood Urea Nitrogen 18.0 mg/dL (7.0-18.0); Calcium 9.2 mg/dL (8.5-10.1); Carbon Dioxide 33.0 mmol/L (21.0-32.0); Chloride 101 mmol/L (98-107); Estimated GFR (African America 50 (>=60 mL/min/1.73m^2); Estimated GFR (Non-African Ame 41 (>=60 mL/min/1.73m^2); Glucose 127 mg/dL (74-106); Potassium 3.7 mmol/L (3.5-5.1); Sodium 141 mmol/L (136-145)
== END 2025-03-13 10:29 | disposition home or self-care (01) ==
PROVIDERS: PCP Internal Medicine; Visit Provider Internal Medicine
DX: Z00.00 Encounter for general adult medical examination without abnormal findings (principal)
CPT/HCPCS: 36415; 80048

== ENCOUNTER 2025-04-03 09:56 | Outpatient (OUT) | payer OTHER, SELFPAY ==
--- OUTSIDE RECORDS SUMMARY | 2025-04-03 10:00 | XMS_ITS | Clinical Summary ---
Author Organization [facility] Address [id number] [address] [place] [address] Care Team Providers Care Graduate Rn Name Role Phone Unavailable Primary Care Provider Unavailabl e Social History Tobacco UseTypesPacks/DayYears UsedDateSmoking Tobacco: Never Assessed CommentsUnknownSex and Gender InformationValueDate RecordedSex Assigned at Not on fileLegal XbvPiygzc56/17/2025 3:08 PM EDTGender IdentityNot on fileSexual OrientationNot on file Plan of Treatment Health MaintenanceDue DateLast DoneCommentsDepression Ehnkljdpa49/07/1974Tobacco Liavbulmw63/07/1974Adult BMI Xomguoaoq49/07/1980DTaP,Tdap and Td Vaccines (1 - Tdap)1980Pap Smear1982Zoster (Shingles) Vaccine (2 of 2)04/19/2023 02/22/2023OVID-19 Vaccine (4 - 2024- season)501/06/2021, 08/02/2020, 07/05/2020Influenza Adfilck99/, 02/22/2023, 02/04/2022, Additional history existsRSV ( or age 60+ yrs) (1 - 1-dose 75+ series) 2036 [employer] Not on file Insurance
--- OUTSIDE RECORDS SUMMARY | 2025-04-03 10:00 | XMS_ITS | Clinical Summary ---
Author Organization [facility] Address [address] [place] [address] Care Team Providers Care Leather Scrubber Name Role Phone Rosa Guzman MD Primary Care Provider Allergies Active AllergyReactionsCriticalityNoted DateCommentsCiprofloxacinUnknown 02/14/20248621FioauttiwoaafyeKqkxbuetgcyhmj58/11/2024 Pt states she gets loopy WumtawjjmdhIqbkg92/17/6015IkdmvibgWtqjb84/11/2024 Medications MedicationSigDispense QuantityRefillsLast FilledStart DateEnd DateStatus metFORMIN [...] days.5Active Active Problems ProblemNoted DateDiagnosed DateTakes dietary bcdpvbdrvve52/04/2025 Overview (06/09/2024): Last Assessment & Plan: Condition: stable Follow up in: three months Type 2 diabetes mellitus, without long-term current use of fmnedzp3605/23/2024 Overview (06/09/2024): Last Assessment & Plan: Condition: [...] months with PCP Lumbar back pain01/26/2024ight leg cwzeknhq29/09/2024ONV (postoperative nausea and vomiting)10/28/2023OSA (obstructive sleep apnea)10/05/2023Screening mammogram for breast wjrvyf7010/05/2023Type 2 diabetes mellitus with hyperglycemia 10/05/2023nemia following tpygiqm05History of deep venous qysaxzgjwf14HypertensionHypokalemia Impaired mobility and activities of daily wknvdq9305/17/2023 05/17/2023Lack of lputlxk19Morbid obesity with body mass index (BMI) of 50.0 to 59.9 in adultostoperative pain05/17/2023 05/17/2023Status post total right knee dmjzqziiqlf86 Kwyxwhemjovqkuwj59aroxysmal atrial wrvkxfbifyec56/22/2024 Assessment & Plan (06/30/2023 2:19 PM EDT): SIH8XU8-MSBw= 4 Continue eliquis anticoagulation, amiodarone for rhythm control and coreg for rate control Assessment & Plan (06/18/2023 11:12 AM EST): Continue amiodarone 200 mg daily, and coreg 6.25 mg bid. Will add midodrine 5 mg tid to regime for noted hypotension and symptoms of lightheadedness/dizziness and near syncope. Continue eliquis anticoaogulation- denied any bleeding tendencies Grade II diastolic vcjrjbmvncu88/22/2024enign hypertensive cardiomyopathy with heart hjfepgm9805/10/2023 Assessment & Plan (06/30/2023 2:20 PM EDT): [...] Assessment & Plan (06/18/2023 11:12 AM EST): [facility] II- currently without exacerbation Continue GDMT- ASA, coreg, farxiga, losartan, entresot and aldatone Diuretic therapy- bumex 1 mg daily Monitor daily weights, I&O, fluid restriction 1.5-2L/day, renal function and electrolytes Overactive sqmruym8103/03/2013 Resolved Problems ProblemNoted DateDiagnosed DateResolved DateAcute kidney ohuggn6205/17/2023/02/2024 Encounters DateTypeDepartmentCare BuvxHfwovysugjx98/04/2025 11:00 AM ESTOffice Visit [facility] [address] [place] [address] Jose Luis Cronin MD S/P ablation of atrial fibrillation (Primary Dx)01/07/2025Results Follow-Up [facility] [address] [place] [address] Aspen Cook CNP Complete Echo (TTE) w/wo Imaging Agent, Strain, 3D, Bubble Study01/05/2025Orders Only [facility] [address] [place] [phone] ProviderXavi MD 01/04/2025 1:20 PM EDTAncillary Procedure [facility] [address] [place] [phone] Awareness of ckcgveflqn42/18/2025Orders Only [facility] [address] [place] [phone] Adenike Serrano MD from Last 3 Months Family History Medical HistoryRelationNameCommentsHeart attackBrotherStrokeBrotherAtrial fibrillationFatherHeart attackMotherStrokeMotherRelationNameStatusComments BrotherDeceasedFatherDeceasedMotherDeceased Social History Tobacco UseTypesPacks/DayYears UsedDateSmoking Tobacco: NeverSmokeless Tobacco: Never Tobacco Cessation:Counseling Given: Not Answered Alcohol UseStandard Drinks/WeekCommentsNot Currently0 (1 standard drink = 0.6 oz pure alcohol)[facility] UtilitiesAnswerDate RecordedIn the past 12 months has the electric, gas, oil, or water [employer] threatened to shut off services in your [...] CommentsNoSex and Gender InformationValueDate RecordedSex Assigned at Nbchqi0407/12/2023 6:46 AM EDTLegal ChnPtqwqu49/29/2022 10:14 PM EDTGender LvrnvnrhDxpjbt77/25/2024 6:46 AM EDTSexual OrientationHeterosexual or Straight 07/12/2023 6:46 AM EDT Last Filed Vital Signs Vital SignReadingTime TakenCommentsBlood Puhmlevn397/7811 11:30 AM EST Ktdzy035502/20/2025 11:30 AM MUTDrtsmjgexkg56.3 ??C (97.3 ??F)10/28/2023 3:35 PM EDTRespiratory Hiai185010/28/2023 7:05 PM EDTOxygen Ewlvncfvyc84%02/20/2025 11:30 AM ESTInhaled Oxygen Concentration--Zsosah704 kg (349 lb)02/20/2025 11:30 AM EST Jzmbcw588.1 cm (5' 5 )02/20/2025 11:30 AM ESTBody Mass Index58.0802/20/2025 11:30 AM EST Plan of Treatment Health MaintenanceDue DateLast DoneCommentsCT Cnhixzonttpp58/07/1962Colonoscopy 2Colorectal Cancer Ffiqghmeq46/07/1962Diabetes: Hemoglobin A1C 1961FIT-DNA1961FIT1961FOBT9534Gudglcqmpziux22/07/1962 Diabetes: Retinopathy Ujwiomqhs79/07/1972Depression Nrkpphutq72/07/1974Diabetes: Urine Protein Wcdhqvruy54/07/1981Pap Smear1982Adult Dngpijd2007/25/1983 Cervical Cancer Eguzlldbv39/07/1992HPV/Zwzzdi9807/25/19917854Skqgyhkko97/07/2002Zoster Vaccines (2 of 2)/OVID-19 Vaccine ( season) 501/06/2021, 08/02/2020, 07/05/2020Influenza VaccineCompleted [...] ImplantedTypeAreaManufacturerDevice IdentifierShelf Expiration DateModel / Serial / LotMonitor,Cardiac,Lux,Dxii+[facility] - [id number] - [id number] Implanted:Qty: 1 on 07/12/2023 by Jose Luis Cronin [facility] at [facility] HospitalImplantable Loop RecorderBoston Hzvbshumcq49/[id number] / [id number] / Procedures Procedure NamePriorityDate/TimeAssociated DiagnosisCommentsCARDIAC DEVICE CHECK CHECK - CKMXVPYgurcwa28/22/2025 1:11 PM EDT Awareness of heartbeats COMPLETE TRANSTHORACIC ECHO (TTE) W/WO IMAGING AGENT, STRAIN, 3D, BUBBLE STUDY Jcbkmdo5401/04/2025 9:51 AM EDT CARDIAC DEVICE CHECK - REMOTE - LOOP RECORDER (ILR)Trxehfj3701/04/2025 12:00 AM EDTfrom Last 3 Months Results * CARDIAC DEVICE CHECK - REMOTE - LOOP RECORDER (ILR) (01/08/2025 1:11 PM EDT) Specimen (Source)Anatomical Location / LateralityCollection Method / Volume Collection TimeReceived Time Narrative Authorizing ProviderResult TypeResult StatusParayshawn Cronin [facility] [place] IMPLANTABLE CARDIAC DEVICE PROCEDURESFinal ResultPerforming OrganizationAddressCity/State/ZIP Code Phone Number CPACS * Complete Echo (TTE) w/wo Imaging Agent, Strain, 3D, Bubble Study (01/04/2025 9:51 AM EDT)Anatomical RegionLateralityModalityUltrasound Narrative Authorizing ProviderResult TypeResult StatusHistorical Provider [facility] ECHO PROCEDURESFinal Result * Cardiac device check - Remote loop recorder (ILR) (01/04/2025 12:00 AM EDT) Anatomical RegionLateralityModalityOtherSpecimen (Source)Anatomical Location / LateralityCollection Method / VolumeCollection TimeReceived Time01/04/2025 Narrative Authorizing ProviderResult TypeResult StatusAdenike Serrano [facility] IMPLANTABLE CARDIAC DEVICE PROCEDURESFinal Result from Last 3 Months Insurance Advance Directives * Full Code (Latest Code Status on File) Date ActivatedDate InactivatedComments10/28/2023 3:55 PM10/28/2023 9:32 PM * Full Code Date ActivatedDate InactivatedComments07/12/2023 10:08 AM07/12/2023 2:35 PM * Full Code Date ActivatedDate InactivatedComments05/07/2023 2:26 PM05/11/2023 3:34 PM Care Teams Team MemberRelationshipSpecialtyStart DateEnd Date Rosa Guzman MD [address] [facility] [address] [place] [address] PCP - GeneralInternal Medicine11/29/24
--- OUTSIDE RECORDS SUMMARY | 2025-04-03 10:00 | XMS_ITS | Clinical Summary ---
Author Organization [facility] Address [address] [address] Care Team Providers Care Refinery Operator Coking Name Role Phone Unavailable Primary Care Provider [...] Problems No known active problems Encounters DateTypeDepartmentCare BsovUxgmdoxmelw15/20/2025 10:30 AM ESTOffice Visit [facility] [address] [place] [phone] Esequiel Reno, DPEma Diabetes mellitus due to underlying condition with diabetic polyneuropathy, unspecified whether alf insulin use (HCC) (Primary Dx); Pain due to onychomycosis of toenails of both feet; Venous insufficiency; Hallux rigidus of left foot; Hallux rigidus of right foot03/08/2025amboo flowsheet [facility] [address] [place] [phone] Esequiel Reno DPM 03/08/20250257Sjwmwc83/13/2025Travelfrom Last 3 Months Family History Medical HistoryRelationNameCommentsDiabetesMaternal GrandfatherNoahDiabetes Maternal GrandmotherNoahCancerMotherWillaDiabetesMotherWillaDiabetesMother's BrotherBilly joeCancerMother's SisterWandaRelationNameStatusCommentsMaternal GrandfatherNoahAliveMaternal GrandmotherNoahAliveMotherWillaAliveMother's BrotherBilly joeAliveMother's SisterWandaAlive Social History Tobacco UseTypesPacks/DayYears UsedDateSmoking Tobacco: NeverSmokeless Tobacco: Never Tobacco Cessation:Counseling Given: Yes Alcohol UseStandard Drinks/WeekCommentsNever0 (1 standard drink = 0.6 oz pure alcohol)CommentsUnknownSex and Gender InformationValueDate RecordedSex Assigned at UqbkhSlgtjt92/14/2025 9:28 AM EDTLegal GpiQqnyxh79/15/2023 6:45 PM EDTGender TrqulbycZpwowg55/14/2025 9:28 AM EDTSexual OrientationStraight 09/30/2024 9:28 AM EDT Last Filed Vital Signs Vital SignReadingTime TakenCommentsBlood Vvwtayhs447/68698 12:00 PM EST Pulse--Temperature--Respiratory Kogn263205/08/2024 10:34 AM ESTOxygen Saturation-- Inhaled Oxygen Concentration--Jeojwi345 kg (348 lb)03/08/2025 10:34 AM ESTHeight 165.1 cm (5' 5 )03/08/2025 10:34 AM ESTBody Mass Index57.9103/08/2025 10:34 AM EST Plan of Treatment DateTypeDepartmentCare Team (Latest Contact Info)Roiloswjdmu91/12/2026 9:50 AM ESTOffice Visit [facility] [address] [place] [address] Esequiel Reno, DPM [address] [facility] [address] [place] [address] Health MaintenanceDue DateLast DoneCommentsCT Xbycwzpejlcl91/07/1962Colonoscopy 2Colorectal Cancer Tccodvwfb30/07/1962FIT-DNA1961FIT1961 FOBT5868Notvbahoesxwy73/07/1962ap Smear1982Cervical Cancer Hyadlplux95/07/1992HPV/Lqowwg5907/25/19912056Rglgdvmln42/07/2002COVID-19 Vaccine (2024- season)501/06/2021, 08/02/2020, 07/05/2020Influenza Vaccine Cbxkhyqrk69/03/2025, 03/08/2024, 02/22/2023, Additional history exists Pneumococcal Vaccine: Pediatrics (0 to 5 Years) and At-Risk Patients (6 to 64 Years)Aged OutNo longer eligible based on patient's age to complete this topic Insurance
--- OUTSIDE RECORDS SUMMARY | 2025-04-03 10:00 | XMS_ITS | Clinical Summary ---
Author Organization [facility] Address [address] [place] [address] Phone Care Team Providers Care Application Development Specialist Name Role Phone Sindi Tierney MD Primary Care Provider [phone] Social History Tobacco UseTypesPacks/DayYears UsedDateSmoking Tobacco: Never Assessed CommentsUnknownSex and Gender InformationValueDate RecordedSex Assigned at Not on fileLegal WpcDemzji29/26/2022 10:35 AM ESTGender IdentityNot on file Sexual OrientationNot on file Plan of Treatment Not on file Care Teams Team MemberRelationshipSpecialtyStart DateEnd Date Sindi Tierney MD [address] [place] [address] [address] [place] [address] [facility]08/18/18
--- NOTE | 2025-04-03 10:01 | US_ITS ---
Patient Name: FERN CARDOSO MR#: [id number] : 1960 Exam Date: 04/03/2025 Ordering Doctor: STACY GAMING RADIOLOGY REPORT PROCEDURE: MM TOMOSYNTHESIS DIAGNOSTIC RT, 04/03/2025, 09:57 US BREAST RT LIMITED, 04/03/2025, 10:27 COMPARISON: MM TOMOSYNTHESIS SCREENING BI, 03/07/2025. MM TOMOSYNTHESIS SCREENING BI, 09/10/2023. MG MAMM DIAGNOSTIC 3D GREG CAD, 05/16/2021. MG MAMM GREG SCRN W CAD DIG, 10/25/2012. INDICATIONS: mass of upper inner quadrant Calculator Name NCI Breast Cancer Risk Assessment Tool 5 Year Breast Cancer Risk 4.10% Lifetime Breast Cancer Risk 16.60% Personal Breast Cancer No Personal Ovarian Cancer No Treatments EXCISION OF SITE Family Cancers Mother with breast cancer at age 61; Aunt-maternal with breast cancer at age ~58. LOCATION: [facility] BREAST COMPOSITION: There are scattered areas of fibroglandular density. The previously identified focal asymmetry see within the left breast persists on today's study head appears represent a mass with possible spiculated margins Ultrasound imaging at the 2-3 o'clock positions of the right breast 7 cm from nipple demonstrates no suspicious mass or cyst. Additional supervised scanning also demonstrate no suspicious mass. Additional scabbing of the right axilla demonstrate no suspicious lymph nodes. FINDINGS: DIAGNOSTIC CATEGORY 4--SUSPICIOUS FOR MALIGNANCY. RECOMMENDATIONS: Gamal guided BREAST BIOPSY: RIGHT BREAST Findings were discussed with the patient shortly after imaging. Dictated by: Jeffy Monae DO on 04/03/2025 at 11:32 Approved by: Jeffy Monae DO on 04/03/2025 at 11:36
== END 2025-04-03 09:57 | disposition home or self-care (01) ==
LOC: MAMMO 09:57
PROVIDERS: PCP Internal Medicine; Visit Provider Internal Medicine
DX: N63.12 Unspecified lump in the right breast, upper inner quadrant (principal); Z80.3 Family history of malignant neoplasm of breast; R92.8 Other abnormal and inconclusive findings on diagnostic imaging of breast
CPT/HCPCS: 76642; 77065; G0279